=== PATIENT | female | born 1935 | race African-American/Black ===

== ENCOUNTER 2016-06-02 09:00 | Emergency (ER) | payer MEDICARE, MEDICAID ==
[~2016-06-02] VITALS: Ht 160 cm; Wt 59.0 kg
[~2016-06-02 09:00] MED LIST: CATAPRES0.1 MG GT; CIPRO500 MG GT; COLACE100 MG GT; DAILY VITAMIN1 EAC4 GT; DILANTIN100 MG GT; HEPARIN SO1000 UNIT3 IJ; KEPPRA500 MG GT; MOM30 ML GT; NOVOLOG100 UNITS1 SUBQ; OMEPRAZOLE20 M2 GT; SIMVASTATIN40 MG GT; SULFAMETHOXAZO473 ML ORAL; TRAMADOL HCL50 MG GT; TYLENOL 8 HOUR650 M1 GT; VANCOMYCIN1 GM/2502 IVPB; ZOFRAN4 MG ORAL; regular insulin
[2016-06-02] MEDS ORDERED: BENADRYL25 MG GT (09:28)
[2016-06-02] MEDS ORDERED: CRANBERRY400 MG GT (09:28)
--- NOTE | 2016-06-02 09:53 | Emergency Room Report ---
History of Present Illness General Chief Complaint: General Complaint Source: Medical Record, EMS Present Illness HPI The patient is sent in for evaluation of a sacral decubitus. The question whether there is infection in the area. The patient is demented and is unable to give his history. The patient feels warm to the nurse. There is no evidence of coughing. The patient is on Heparin. Allergies: Coded Allergies: No Known Allergies (Verified , 01/27/10) Patient History Limited by: medical condition Past Medical History: see triage record Social History Narrative SNF Reviewed Nursing Documentation: PMH: Agreed, PSxH: Agreed Nursing Documentation-PMH Hx Cardiac Problems: Yes - high cholesterol Hx Hypertension: Yes Hx Pacemaker: No Hx Asthma: No Hx COPD: No Hx Diabetes: Yes Hx Cancer: No Hx Dialysis: No Hx Neurological Problems: Yes - dementia, bilat DVT Hx Cerebrovascular Accident: Yes Hx Dementia: Yes Hx Seizures: Yes Hx Dysphasia: Yes Review of Systems All Other Systems: limited Physical Exam Vital Signs Date Time Temp Pulse Resp B/P Pulse Ox O2 Delivery O2 Flow Rate FiO2 06/02/16 09:01 98.2 78 16 130/80 98 Room Air Sp02 EP Interpretation: reviewed, normal General Appearance: no apparent distress, Chronically Ill Head: normocephalic Eyes: bilateral eye PERRL, bilateral eye normal inspection ENT: moist mucus membranes Neck: supple Respiratory: lungs clear, normal breath sounds Cardiovascular #1: regular rate, rhythm Cardiovascular #2: 2+ radial (R) Gastrointestinal: normal inspection, normal bowel sounds, non tender, no mass, non-distended, other - gastrostomy tube Musculoskeletal: back normal, decreased range of motion - R contracture Neurologic: aphasia, motor weakness - generalized but more on R, other - looks to speaker Psychiatric: depressed affect Skin: warm/dry, other - Stage 3 decubiti sacrum, no abscess or surrounding erythema Medical Decision Making Diagnostic Impression: Primary Impression: Decubital ulcer Qualified Codes: L89.93 - Pressure ulcer of unspecified site, stage 3 Additional Impressions: Prolonged PTT Dementia Qualified Codes: F03.90 - Unspecified dementia without behavioral disturbance ER Course Patient sent for eval of sacral decub. Ddx: cellulitis, abscess, decub, other source of infection. Evaluation with labs and urine. Exam against acute infection. Labs remarkable for normal WBC, lytes, ESR. Prolonged PTT. Discussed with Dr. Lazcano. Will observe at [facility]. No indication for antibiotics at this time. Laboratory Tests Test 06/02/16 09:45 06/02/16 10:09 White Blood Count 5.9 K/UL (4.8-10.8) Red Blood Count 3.52 M/UL (4.20-5.40) L Hemoglobin 11.9 G/DL (12.0-16.0) L Hematocrit 35.8 % (37.0-47.0) L Mean Corpuscular Volume 102 FL (80-99) H Mean Corpuscular Hemoglobin 33.8 PG (27.0-31.0) H Mean Corpuscular Hemoglobin Concent 33.3 G/DL (32.0-36.0) Red Cell Distribution Width 11.6 % (11.6-14.8) Platelet Count 138 K/UL (150-450) L Mean Platelet Volume 8.3 FL (6.5-10.1) Neutrophils (%) (Auto) 44.5 % (45.0-75.0) L Lymphocytes (%) (Auto) 45.0 % (20.0-45.0) Monocytes (%) (Auto) 6.7 % (1.0-10.0) Eosinophils (%) (Auto) 2.2 % (0.0-3.0) Basophils (%) (Auto) 1.5 % (0.0-2.0) Erythrocyte Sedimentation Rate 30 MM/HR (0-30) Prothrombin Time 10.5 SEC (9.30-11.50) Prothrombin Time INR 1.0 (0.9-1.1) PTT > 150 SEC (23-33) *H Sodium Level 136 mEQ/L (135-145) Potassium Level 4.7 mEQ/L (3.4-4.9) Chloride Level 96 mEQ/L (98-107) L Carbon Dioxide Level 27 mEQ/L (20-30) Anion Gap 13 (5-15) Blood Urea Nitrogen 32 mg/dL (7-23) H Creatinine 0.9 mg/dL (0.5-0.9) Estimate Glomerular Filtration Rate mL/min (>60) Glucose Level 134 mg/dL (74-106) H Lactic Acid Level 1.00 mmol/L (0.66-2.22) Calcium Level 8.8 mg/dL (8.6-10.2) Total Bilirubin < 0.2 mg/dL (0.0-1.2) Aspartate Amino Transferase (AST) 23 U/L (5-40) Alanine Aminotransferase (ALT) 17 U/L (3-33) Alkaline Phosphatase 201 U/L (35-104) H Total Creatine Kinase 93 U/L (26-140) Troponin I < 0.30 ng/mL (<=0.30) Pro-B-Type Natriuretic Peptide 182 pg/mL (0-450) Total Protein 7.8 g/dL (6.6-8.7) Albumin 3.9 g/dL (3.5-5.2) Globulin 3.9 g/dL Albumin/Globulin Ratio 1.0 (1.0-2.7) Urine Color Pale yellow Urine Appearance Slightly cloudy Urine pH 8 (4.5-8.0) Urine Specific [place] 1.010 (1.005-1.035) Urine Protein 3+ (NEGATIVE) H Urine Glucose (UA) Negative (NEGATIVE) Urine Ketones Negative (NEGATIVE) Urine Occult Blood Negative (NEGATIVE) Urine Nitrite Negative (NEGATIVE) Urine Bilirubin Negative (NEGATIVE) Urine Urobilinogen Normal MG/DL (0.0-1.0) Urine Leukocyte Esterase 1+ (NEGATIVE) H Urine RBC 0-2 /HPF (0 - 2) Urine WBC 2-4 /HPF (0 - 2) Urine Squamous Epithelial Cells Occasional /LPF Urine Bacteria None /HPF (NONE) EKG Diagnostic Results Rate: normal Rhythm: NSR ST Segments: no acute changes Rhythm Strip Diag. Results EP Interpretation: yes Rhythm: NSR, no PVC's, no ectopy Last Vital Signs Date Time Temp Pulse Resp B/P Pulse Ox O2 Delivery O2 Flow Rate FiO2 06/02/16 12:32 82 16 130/80 98 Room Air 06/02/16 11:28 99.7 Status: unchanged Disposition: XFER SNF Condition: Stable Scripts Bacitracin (Bacitracin) 28.4 Gm Oint...g. 1 APPLIC TOPIC BID, #30 GM Prov: Deng Galeas M.D. 06/02/16 Referrals: TREY LAZCANO (PCP) Deng Galeas M.D. Jun 02, 2016 09:53
[2016-06-02 10:11] LABS: BASOPHILS % (AUTO) 1.5 % (0.0-2.0); EOSINOPHILS % (AUTO) 2.2 % (0.0-3.0); MEAN CORPUSCULAR HEMOGLOBIN 33.8 PG (27.0-31.0); MEAN CORPUSCULAR HGB CONC 33.3 G/DL (32.0-36.0); MEAN CORPUSCULAR VOLUME 102 FL (80-99); MEAN PLATELET VOLUME 8.3 FL (6.5-10.1); MONOCYTES % (AUTO) 6.7 % (1.0-10.0); NEUTROPHILS % (AUTO) 44.5 % (45.0-75.0); PLATELET COUNT 138 K/UL (150-450); RED BLOOD COUNT 3.52 M/UL (4.20-5.40); RED CELL DISTRIBUTION WIDTH 11.6 % (11.6-14.8); WHITE BLOOD COUNT 5.9 K/UL (4.8-10.8)
[2016-06-02 10:21] LABS: ALANINE AMINOTRANSFERASE 17 U/L (3-33); ANION GAP 13 (5-15); ASPARTATE AMINO TRANSFERASE 23 U/L (5-40); CALCIUM 8.8 mg/dL (8.6-10.2); CARBON DIOXIDE 27 mEQ/L (20-30); CHLORIDE 96 mEQ/L (98-107); CREATININE 0.9 mg/dL (0.5-0.9); HEMOLYSIS 55; POTASSIUM 4.7 mEQ/L (3.4-4.9); SODIUM 136 mEQ/L (135-145); TOTAL PROTEIN 7.8 g/dL (6.6-8.7)
[2016-06-02 10:21] LABS: APPEARANCE,URINE SLIGHTLY CLOUDY; KETONES,URINE NEGATIVE (NEGATIVE); LEUKOCYTE ESTERASE ,URINE 1+ (NEGATIVE); NITRITE,URINE NEGATIVE (NEGATIVE); PH,URINE 8 (4.5-8.0); PROTEIN,URINE 3+ (NEGATIVE); UROBILINOGEN,URINE NORMAL MG/DL (0.0-1.0)
[2016-06-02 10:22] VITALS: BP 138/86
[2016-06-02 10:23] LABS: RBC,URINE 0-2 /HPF (0 - 2); SQUAMOUS EPITHELIAL CELL,UR OCCASIONAL /LPF (NONE/OCC)
[2016-06-02 10:29] LABS: PROTHROMBIN TIME 10.5 SEC (9.30-11.50)
[2016-06-02 10:31] LABS: TROPONIN I < 0.30 ng/mL (<=0.30)
[2016-06-02 10:39] LABS: PARTIAL THROMBOPLASTIN TIME > 150 SEC (23-33)
[2016-06-02 11:03] LABS: ERYTHROCYTE SEDIMENTATION RATE 30 MM/HR (0-30)
[2016-06-02 11:28] VITALS: BP 140/86
[2016-06-02] MEDS ORDERED: BACITRACIN15 GM TOPIC (11:45)
[2016-06-02 12:32] VITALS: BP 130/80
--- NOTE | 2016-06-04 12:45 | Cardiology Report ---
APPROVED REPORT EKG Measurement Heart [id number] CT 154P81 [id number] Normal sinus rhythm Normal ECG
--- NOTE | 2016-06-05 02:57 | Consultation ---
DATE OF CONSULTATION: INFECTIOUS DISEASE CONSULTATION: REFERRING PHYSICIAN: Saira Lazcano M.D. REASON FOR CONSULTATION: The patient for bacteremia. HISTORY OF PRESENT ILLNESS: The patient is an 80-year-old female with multiple medical problems, who recently admitted. However, the patient's blood culture came positive with that, the patient was readmitted. The patient has fever. The patient was started on IV antibiotics. The patient is not able to provide information. Much of information gathered through the chart and speaking to the staff. PAST MEDICAL HISTORY: 1. Significant for unstageable decubitus of lower extremities. 2. History of CVA. 3. Hypertension. 4. Seizure disorder. 5. Hyperlipidemia. 6. G-tube. 7. . 8. Dementia. 9. Diabetes. MEDICATIONS: IV cefepime and received one dose of vancomycin. ALLERGIES: No known drug allergies. SOCIAL HISTORY: The patient lives in a snf. FAMILY HISTORY: Noncontributory. REVIEW OF SYSTEMS: Unobtainable. PHYSICAL EXAMINATION: VITAL SIGNS: Temperature 97.4 degrees, blood pressure 114/60, pulse 66, respiratory rate 18, and T-max 101. HEENT: Mouth, no thrush. No icterus. NECK: No trach. CHEST: Coarse breathing sounds. HEART: S1 and S2. ABDOMEN: Soft. EXTREMITIES: No cyanosis. NEUROLOGIC: Awake. LABORATORY DATA: White blood cells 8.8, hemoglobin 11, and platelet 154, 000. UA, 10-15 white blood cells. BUN is 22 and creatinine 1. ALT and AST unremarkable. Alkaline phosphatase 216. Blood cultures growing gram-positive cocci in 2/2 sets. ASSESSMENT: The patient is an 80-year-old female with multiple medical problems who has been admitted to this medical center due to fever. The patient has positive blood culture for Coag-negative staph that could be real bacteremia. Also, the patient urinary tract infection and underlying pneumonia. PLAN: 1. Continue the patient on cefepime, add IV vancomycin. 2. Monitor CBC. 3. Monitor BMP. 4. Monitor cultures (blood, urine, sputum). 5. Monitor chest x-ray. 6. Based on the patient's clinical course and labs, we will do further recommendation. Thank you, Dr. Lazcano, for allowing me to participate in the care of this patient. I will follow the patient with you during this hospitalization. Alfonzo Jimenez M.D. DR: Noemí JOB#: [id number] CC:
== END 2016-06-02 12:45 ==
LOC: EDUNIT# 09:00 → EDBD 09:00 → EMR 09:26
DX: L89.153 Pressure ulcer of sacral region, stage 3 (principal); F03.90 Unspecified dementia, unspecified severity, without behavioral disturbance, psychotic disturbance, mood disturbance, and anxiety; E78.00 Pure hypercholesterolemia, unspecified; I10 Essential (primary) hypertension; E11.9 Type 2 diabetes mellitus without complications; Z86.718 Personal history of other venous thrombosis and embolism; Z86.73 Personal history of transient ischemic attack (TIA), and cerebral infarction without residual deficits; R79.1 Abnormal coagulation profile
CPT/HCPCS: 36415; 80053; 81003; 82550; 83605; 83880; 84484; 85025; 85610; 85651; 85730; 87040; 87081; 87181; 93005; 99283

== ENCOUNTER 2016-06-03 20:55 | Inpatient (IN) | payer MEDICARE, MEDICAID ==
[~2016-06-03] VITALS: Ht 165.1 cm; Wt 90.7 kg
[~2016-06-03 20:55] MED LIST changes: +BACITRACIN15 GM TOPIC; +BENADRYL25 MG GT; +CRANBERRY400 MG GT
[2016-06-03] MEDS ORDERED: Vancomycin 1.5gm/D5W 300ml 325 ML IVPB ONE (21:15)
[2016-06-03] MEDS ORDERED: DuoNeb 0.5-3(2.5)mg/3ml neb HHN PRN (21:30)
[2016-06-03] MEDS ORDERED: Mylanta II UD 30ml ORAL PRN (21:30)
[2016-06-03] MEDS ORDERED: Miralax 17gm pkt ORAL PRN (21:30)
[2016-06-03] MEDS ORDERED: Nitroglycerin Subl 0.4mg tab (Bottle Of 25) SL PRN (21:30)
[2016-06-03 21:35] VITALS: BP 159/99
[2016-06-03 21:55] LABS: ABG ALLEN TEST POSITIVE; ABG BASE EXCESS 0.9; ABG PCO2 35.2 mmHg (35.0-45.0)
[2016-06-03 21:56] LABS: BASOPHILS % (AUTO) 1.7 % (0.0-2.0); EOSINOPHILS % (AUTO) 0.4 % (0.0-3.0); LYMPHOCYTES % (AUTO) 15.3 % (20.0-45.0); MEAN CORPUSCULAR HEMOGLOBIN 34.6 PG (27.0-31.0); MEAN CORPUSCULAR HGB CONC 33.4 G/DL (32.0-36.0); MEAN CORPUSCULAR VOLUME 104 FL (80-99); MEAN PLATELET VOLUME 7.4 FL (6.5-10.1); MONOCYTES % (AUTO) 7.7 % (1.0-10.0); PLATELET COUNT 177 K/UL (150-450); RED BLOOD COUNT 3.74 M/UL (4.20-5.40); RED CELL DISTRIBUTION WIDTH 11.7 % (11.6-14.8); WHITE BLOOD COUNT 7.4 K/UL (4.8-10.8)
[2016-06-03] MEDS ORDERED: Unasyn 3gm Inj ONE (22:11)
[2016-06-03 22:13] LABS: ALANINE AMINOTRANSFERASE 20 U/L (3-33); ALBUMIN/GLOBULIN RATIO 0.7 (1.0-2.7); ANION GAP 17 (5-15); ASPARTATE AMINO TRANSFERASE 25 U/L (5-40); CALCIUM 9.2 mg/dL (8.6-10.2); CARBON DIOXIDE 25 mEQ/L (20-30); CHLORIDE 94 mEQ/L (98-107); CREATININE 1.1 mg/dL (0.5-0.9); HEMOLYSIS 11; POTASSIUM 4.6 mEQ/L (3.4-4.9); SODIUM 136 mEQ/L (135-145); TOTAL PROTEIN 9.1 g/dL (6.6-8.7); TROPONIN I < 0.30 ng/mL (<=0.30)
--- NOTE | 2016-06-03 22:13 | Emergency Room Report ---
History of Present Illness General Chief Complaint: Abnormal Labs Source: Medical Record, EMS Present Illness HPI Patient is an 80-year-old female brought in from longterm after abnormal lab values. The patient was noted to have prior history of a recent ER visit patient was noted to have gram-positive cocci in clusters on blood cultures. The patient was afebrile at that time. Patient is a nonverbal at baseline. History markedly limited by patient's mental status. Allergies: Coded Allergies: No Known Allergies (Verified , 01/27/10) Patient History Past Medical History: see triage record Reviewed Nursing Documentation: PMH: Agreed, PSxH: Agreed Nursing Documentation-PMH Hx Cardiac Problems: Yes - high cholesterol Hx Hypertension: Yes Hx Pacemaker: No Hx Asthma: No Hx COPD: No Hx Diabetes: Yes Hx Cancer: No Hx Dialysis: No Hx Neurological Problems: Yes - dementia, bilat DVT Hx Cerebrovascular Accident: Yes Hx Dementia: Yes Hx Seizures: Yes Hx Dysphasia: Yes Review of Systems All Other Systems: limited - by mental status Physical Exam Vital Signs Date Time Temp Pulse Resp B/P Pulse Ox O2 Delivery O2 Flow Rate FiO2 06/03/16 21:04 101.7 116 20 153/80 96 Room Air General Appearance: no apparent distress, obese, Chronically Ill Neck: limited range of motion Respiratory: lungs clear, no rhonchi, no wheezing Cardiovascular #1: regular rate, rhythm Gastrointestinal: normal bowel sounds, non tender, soft, other - gtube site CDI Musculoskeletal: other - contracted, swelling Neurologic: motor weakness, other - gag reflex Skin: other - decubitus ulcers Medical Decision Making Diagnostic Impression: Primary Impression: Sepsis Additional Impressions: Decubital ulcer G tube feedings ER Course Patient presented for positive blood culture. Differential diagnosis included was not limited to the contaminant, sepsis, infected decubitus ulcer, pneumonia among others.Because of complexity of patient's case laboratory testing and imaging studies were ordered. The patient was noted to have positive blood culture and was therefore the presumed septic. The patient was empirically treated with IV vancomycin and Unasyn. Chest x-ray one view interpreted by me showed normal lung wallace without evident infiltrate normal cardiac size. The patient's source of infection may be related to her ulcers. The patient was discussed with Dr. witt for inpatient management Labs Test 06/03/16 21:30 06/03/16 21:40 White Blood Count 7.4 K/UL (4.8-10.8) Red Blood Count 3.74 M/UL (4.20-5.40) Hemoglobin 13.0 G/DL (12.0-16.0) Hematocrit 38.8 % (37.0-47.0) Mean Corpuscular Volume 104 FL (80-99) Mean Corpuscular Hemoglobin 34.6 PG (27.0-31.0) Mean Corpuscular Hemoglobin Concent 33.4 G/DL (32.0-36.0) Red Cell Distribution Width 11.7 % (11.6-14.8) Platelet Count 177 K/UL (150-450) Mean Platelet Volume 7.4 FL (6.5-10.1) Neutrophils (%) (Auto) 75.0 % (45.0-75.0) Lymphocytes (%) (Auto) 15.3 % (20.0-45.0) Monocytes (%) (Auto) 7.7 % (1.0-10.0) Eosinophils (%) (Auto) 0.4 % (0.0-3.0) Basophils (%) (Auto) 1.7 % (0.0-2.0) Arterial Blood pH 7.458 (7.350-7.450) Arterial Blood Partial Pressure CO2 35.2 mmHg (35.0-45.0) Arterial Blood Partial Pressure O2 67.6 mmHg (75.0-100.0) Arterial Blood HCO3 24.4 mmol/L (22.0-26.0) Arterial Blood Oxygen Saturation 93.6 % (92.0-98.0) Arterial Blood Base Excess 0.9 Gareth Test Positive EKG Diagnostic Results Rate: normal Rhythm: NSR - 93 ST Segments: no acute changes Rhythm Strip Diag. Results EP Interpretation: yes Rhythm: NSR, no PVC's, no ectopy Chest X-Ray Diagnostic Results EP Interpretation: Yes Findings: no consolidation, no effusion, no pneumothorax, no acute cardiopulmonary disease Number of Views: 1 Last Vital Signs Date Time Temp Pulse Resp B/P Pulse Ox O2 Delivery O2 Flow Rate FiO2 06/03/16 21:04 101.7 116 20 153/80 96 Room Air Status: unchanged Disposition: ADMITTED INPATIENT Condition: Serious Referrals: TREY WITT (PCP) Srini Davis Jun 03, 2016 22:13
[2016-06-03 22:15] LABS: INR 1.1 (0.9-1.1); PROTHROMBIN TIME 11.1 SEC (9.30-11.50)
[2016-06-03] MEDS ORDERED: Acetaminophen 650mg/20.3ml GT ONE (22:15)
[2016-06-03] MEDS: Ampicillin/Sulbactam Sod 3 GM in NS 110 ML IV SCH (22:15)
[2016-06-03 22:23] LABS: CKMB < 1.5 ng/mL (< 3.8)
[2016-06-03 22:31] LABS: APPEARANCE,URINE CLEAR; KETONES,URINE NEGATIVE (NEGATIVE); LEUKOCYTE ESTERASE ,URINE 1+ (NEGATIVE); NITRITE,URINE NEGATIVE (NEGATIVE); PH,URINE 8 (4.5-8.0); PROTEIN,URINE 4+ (NEGATIVE); UROBILINOGEN,URINE NORMAL MG/DL (0.0-1.0)
[2016-06-03 22:41] LABS: BACTERIA,URINE FEW /HPF; SQUAMOUS EPITHELIAL CELL,UR OCCASIONAL /LPF (NONE/OCC)
[2016-06-03 23:30] VITALS: BP 167/49
[2016-06-04] VITALS (9 sets, daily range): BP systolic 138–178; BP diastolic 46–86
[2016-06-04] MEDS ORDERED: Unasyn 3gm Inj ONE (02:48)
[2016-06-04] MEDS: Ampicillin/Sulbactam Sod 3 GM in NS 110 ML IV SCH (02:53)
[2016-06-04 06:08] LABS: MEAN CORPUSCULAR HEMOGLOBIN 34.2 PG (27.0-31.0); MEAN CORPUSCULAR HGB CONC 33.5 G/DL (32.0-36.0); MEAN CORPUSCULAR VOLUME 102 FL (80-99); MEAN PLATELET VOLUME 8.2 FL (6.5-10.1); PLATELET COUNT 154 K/UL (150-450); RED BLOOD COUNT 3.25 M/UL (4.20-5.40); RED CELL DISTRIBUTION WIDTH 11.7 % (11.6-14.8); WHITE BLOOD COUNT 8.8 K/UL (4.8-10.8)
[2016-06-04] MEDS: NovoLOG Insulin Flexpen SUBQ SCH ×4 (06:30→17:02)
[2016-06-04 06:32] LABS: ANION GAP 19 (5-15); CALCIUM 8.1 mg/dL (8.6-10.2); CARBON DIOXIDE 21 mEQ/L (20-30); CHLORIDE 96 mEQ/L (98-107); HEMOLYSIS 17; PHOSPHORUS 3.2 mg/dL (2.5-4.8); SODIUM 136 mEQ/L (135-145)
[2016-06-04 08:16] LABS: BAND NEUTROPHILS % (MANUAL) 6 % (0-8); EOSINOPHILS % (MANUAL) 1 % (0-3); LYMPHOCYTES % (MANUAL) 11 % (20-45); NEUTROPHILS % (MANUAL) 77 % (45-75); TOTAL CELLS COUNTED 100
[2016-06-04 08:17] LABS: BASOPHILS % (MANUAL) 0 % (0-2); MACROCYTES 1+; PLATELET ESTIMATE ADEQUATE; PLATELET MORPHOLOGY NORMAL
[2016-06-04] MEDS: Phenytoin 100mg cap ORAL SCH ×3 (08:56→22:43)
[2016-06-04] MEDS ORDERED: Heparin 5000 units/ml inj SUBQ SCH (09:00)
[2016-06-04] MEDS ORDERED: Cefepime HCl 1 GM in D5W 55 ML IV SCH (09:00)
--- NOTE | 2016-06-04 09:53 | History and Physical ---
History of Present Illness General Date patient seen: Jun 04, 2016 Reason for Hospitalization: Abnormal Labs Present Illness HPI 80-year-old female with hx of DM, CVA, Gtube, bed bound, aphasic brought in from [facility] after abnormal lab values. She was in ER recently, was evaluated and sent back to [facility]. Her blood cultures came back positive therefore she was called in to get admitted. She had gram-positive cocci in clusters on blood cultures. During this evaluation, she was febrile and seemed septic, therefore admitted to Telemetry. She looks comfortable, in no acute respiratory distress. Allergies: Coded Allergies: No Known Allergies (Verified , 01/27/10) Medication History Scheduled Bacitracin (Bacitracin), 1 APPLIC TOPIC BID Ciprofloxacin* (Cipro*), 500 MG GT BID Docusate Sodium* (Colace*), 100 MG GT DAILY, (Reported) Heparin Sodium,Porcine/Pf (Heparin Sod 1,000 Unit/Ml Vial), 5,000 IJ BID, ( Reported) Insulin Aspart (Novolog Flexpen), 0 UNITS SUBQ BEFORE MEALS AND HS Levetiracetam (Keppra), 500 MG GT DAILY, (Reported) Multivitamin (Daily Vitamin), 1 TAB GT DAILY, (Reported) Omeprazole (Omeprazole), 20 MG GT DAILY, (Reported) Phenytoin Sodium Extended* (Dilantin*), 100 MG GT BID, (Reported) Simvastatin (Zocor), 40 MG GT BEDTIME, (Reported) Sulfamethoxazole/Trimethoprim Susp* (Bactrim Susp*), 20 ML ORAL TWICE A DAY Tramadol Hcl* (Ultram*), 50 MG GT BID, (Reported) Scheduled PRN Acetaminophen (Tylenol 8 Hour), 650 MG GT Q4HR PRN for Mild Pain/Temp > 100.5, ( Reported) Clonidine Hcl* (Catapres*), 0.1 MG GT EVERY 6 HOURS PRN for For High Blood Pressure, (Reported) Diphenhydramine Hcl* (Benadryl*), 25 MG GT Q6H PRN for Itching, (Reported) Magnesium Hydroxide (Milk of Magnesia), 30 ML GT DAILY PRN for Constipation, ( Reported) Ondansetron (Zofran), 4 MG ORAL Q6H PRN for Nausea & Vomiting Miscellaneous Medications Cranberry (Cranberry), 450 MG GT, (Reported) [regular insulin], (Reported) Patient History Healthcare decision maker Resuscitation status Advanced Directive on File No Past Medical/Surgical History Past Medical/Surgical History: (1) DVT (deep vein thrombosis) in (2) Dementia (3) G tube feedings (4) Diabetes Review of Systems All Other Systems: negative except mentioned in HPI Physical Exam General Appearance: WD/WN, no apparent distress Lines, tubes and drains: peripheral, central line Neck: non-tender, normal alignment Respiratory/Chest: chest wall non-tender, lungs clear Breasts: no masses Cardiovascular/Chest: normal peripheral pulses Abdomen: normal bowel sounds, non tender Genitourinary/Rectal: normal genital exam, normal rectal exam Last 24 Hour Vital Signs Date Time Temp Pulse Resp B/P Pulse Ox O2 Delivery O2 Flow Rate FiO2 06/04/16 07:48 97.7 89 18 140/73 99 Room Air 06/04/16 07:16 100.5 87 24 152/52 97 Room Air 06/04/16 06:55 100.5 87 24 152/52 97 Room Air 06/04/16 05:54 100.5 06/04/16 05:52 100.5 94 24 138/46 97 Room Air 06/04/16 04:36 102.4 96 24 148/57 97 Room Air 06/04/16 04:35 102.4 06/04/16 02:43 102.6 110 29 166/66 99 Room Air 06/04/16 01:51 101.2 110 29 159/86 97 Room Air 06/04/16 01:28 190/83 06/03/16 23:30 101.6 92 21 167/49 100 Room Air 06/03/16 23:25 101.6 06/03/16 21:35 102.6 90 20 159/99 99 Room Air 06/03/16 21:04 101.7 116 20 153/80 96 Room Air Intake and Output 06/03/16 06/04/16 19:00 07:00 Intake Total 2765 ml Output Total 250 ml Balance 2515 ml Intake IV Total 1220 ml Other 1545 ml Output Urine Total 250 ml Laboratory Tests Test 06/03/16 21:30 06/03/16 21:40 06/03/16 22:00 06/04/16 05:35 White Blood Count 7.4 K/UL (4.8-10.8) 8.8 K/UL (4.8-10.8) Red Blood Count 3.74 M/UL (4.20-5.40) L 3.25 M/UL (4.20-5.40) L Hemoglobin 13.0 G/DL (12.0-16.0) 11.1 G/DL (12.0-16.0) L Hematocrit 38.8 % (37.0-47.0) 33.2 % (37.0-47.0) L Mean Corpuscular Volume 104 FL (80-99) H 102 FL (80-99) H Mean Corpuscular Hemoglobin 34.6 PG (27.0-31.0) H 34.2 PG (27.0-31.0) H Mean Corpuscular Hemoglobin Concent 33.4 G/DL (32.0-36.0) 33.5 G/DL (32.0-36.0) Red Cell Distribution Width 11.7 % (11.6-14.8) 11.7 % (11.6-14.8) Platelet Count 177 K/UL (150-450) 154 K/UL (150-450) Mean Platelet Volume 7.4 FL (6.5-10.1) 8.2 FL (6.5-10.1) Neutrophils (%) (Auto) 75.0 % (45.0-75.0) % (45.0-75.0) Lymphocytes (%) (Auto) 15.3 % (20.0-45.0) L % (20.0-45.0) Monocytes (%) (Auto) 7.7 % (1.0-10.0) % (1.0-10.0) Eosinophils (%) (Auto) 0.4 % (0.0-3.0) % (0.0-3.0) Basophils (%) (Auto) 1.7 % (0.0-2.0) % (0.0-2.0) Prothrombin Time 11.1 SEC (9.30-11.50) Prothromb Time International Ratio 1.1 (0.9-1.1) Activated Partial Thromboplast Time 25 SEC (23-33) Sodium Level 136 mEQ/L (135-145) 136 mEQ/L (135-145) Potassium Level 4.6 mEQ/L (3.4-4.9) 4.0 mEQ/L (3.4-4.9) Chloride Level 94 mEQ/L (98-107) L 96 mEQ/L (98-107) L Carbon Dioxide Level 25 mEQ/L (20-30) 21 mEQ/L (20-30) Anion Gap 17 (5-15) H 19 (5-15) H Blood Urea Nitrogen 31 mg/dL (7-23) H 27 mg/dL (7-23) H Creatinine 1.1 mg/dL (0.5-0.9) H 1.0 mg/dL (0.5-0.9) H Estimat Glomerular Filtration Rate mL/min (>60) mL/min (>60) Glucose Level 143 mg/dL (74-106) H 210 mg/dL (74-106) H Lactic Acid Level 1.00 mmol/L (0.66-2.22) Calcium Level 9.2 mg/dL (8.6-10.2) 8.1 mg/dL (8.6-10.2) L Total Bilirubin 0.3 mg/dL (0.0-1.2) Aspartate Amino Transf (AST/SGOT) 25 U/L (5-40) Alanine Aminotransferase (ALT/SGPT) 20 U/L (3-33) Alkaline Phosphatase 216 U/L (35-104) H Total Creatine Kinase 82 U/L (26-140) Creatine Kinase MB < 1.5 ng/mL (< 3.8) Creatine Kinase MB Relative Index 1.8 Troponin I < 0.30 ng/mL (<=0.30) Total Protein 9.1 g/dL (6.6-8.7) H Albumin 4.0 g/dL (3.5-5.2) 3.3 g/dL (3.5-5.2) L Globulin 5.1 g/dL Albumin/Globulin Ratio 0.7 (1.0-2.7) L Arterial Blood pH 7.458 (7.350-7.450) Arterial Blood Partial Pressure CO2 35.2 mmHg (35.0-45.0) Arterial Blood Partial Pressure O2 67.6 mmHg (75.0-100.0) L Arterial Blood HCO3 24.4 mmol/L (22.0-26.0) Arterial Blood Oxygen Saturation 93.6 % (92.0-98.0) Arterial Blood Base Excess 0.9 Gareth Test Positive Urine Color Yellow Urine Appearance Clear Urine pH 8 (4.5-8.0) Urine Specific [place] 1.010 (1.005-1.035) Urine Protein 4+ (NEGATIVE) H Urine Glucose (UA) Negative (NEGATIVE) Urine Ketones Negative (NEGATIVE) Urine Occult Blood 2+ (NEGATIVE) H Urine Nitrite Negative (NEGATIVE) Urine Bilirubin Negative (NEGATIVE) Urine Urobilinogen Normal MG/DL (0.0-1.0) Urine Leukocyte Esterase 1+ (NEGATIVE) H Urine RBC 5-10 /HPF (0 - 2) H Urine WBC 10-15 /HPF (0 - 2) H Urine Squamous Epithelial Cells Occasional /LPF Urine Bacteria Few /HPF (NONE) Urine Legionella Antigen Pending Differential Total Cells Counted 100 Neutrophils % (Manual) 77 % (45-75) H Lymphocytes % (Manual) 11 % (20-45) L Monocytes % (Manual) 5 % (1-10) Eosinophils % (Manual) 1 % (0-3) Basophils % (Manual) 0 % (0-2) Band Neutrophils 6 % (0-8) Platelet Estimate Adequate Platelet Morphology Normal Macrocytosis 1+ Phosphorus Level 3.2 mg/dL (2.5-4.8) Height (Feet): 5 Height (Inches): 6.00 Weight (Pounds): 200 Medications Current Medications Medications (Trade) Dose Ordered Sig/Nancy Route PRN Reason Start Time Stop Time Status Last Admin Dose Admin Acetaminophen (Tylenol) 650 mg Q4H PRN ORAL fever 06/03/16 21:30 07/03/16 21:29 06/04/16 02:35 Al Hydroxide/Mg Hydroxide (Mylanta II) 30 ml Q6H PRN ORAL dyspepsia 06/03/16 21:30 07/03/16 21:29 Albuterol/ Ipratropium 3 ml 3 ml Q4H PRN HHN Shortness of Breath 06/03/16 21:30 06/08/16 21:29 Cefepime HCl/ Dextrose (Maxipime/D5W) 55 ml @ 110 mls/hr Q24H IV 06/04/16 09:00 06/11/16 08:59 06/04/16 08:55 Clonidine HCl (Catapres) 0.1 mg Q6H PRN GT SBP>160 06/04/16 08:00 07/04/16 07:59 Dextrose STAT PRN IV Hypoglycemia 06/03/16 21:30 07/03/16 21:29 Heparin Sodium (Porcine) (Heparin 5000 units/ml) 5,000 units EVERY 12 HOURS SUBQ 06/04/16 09:00 07/04/16 08:59 06/04/16 08:57 Insulin Aspart (NovoLOG) BEFORE MEALS AND HS SUBQ 06/04/16 06:30 07/04/16 06:29 Levetiracetam (Keppra) 500 mg DAILY GT 06/04/16 09:00 07/04/16 08:59 06/04/16 08:56 Nitroglycerin (Ntg) 0.4 mg Q5M PRN SL Prn Chest Pain 06/03/16 21:30 07/03/16 21:29 Ondansetron HCl (Zofran) 4 mg Q6H PRN IVP Nausea & Vomiting 06/03/16 21:30 07/03/16 21:29 Phenytoin (Dilantin) 100 mg BID ORAL 06/04/16 09:00 07/04/16 08:59 06/04/16 08:56 Polyethylene Glycol (Miralax) 17 gm DAILYPRN PRN ORAL Constipation 06/03/16 21:30 07/03/16 21:29 Sodium Chloride (0.45% NS 1000ml) 1,000 ml @ 50 mls/hr Q20H IV 06/03/16 21:45 07/03/16 21:44 06/04/16 08:56 Temazepam (Restoril) 15 mg HSPRN PRN ORAL Insomnia 06/03/16 21:30 06/10/16 21:29 Assessment/Plan Problem List: (1) Sepsis ICD Codes: A41.9 - Sepsis SNOMED: 00181587 (2) Sacral decubitus ulcer, stage III ICD Codes: L89.153 - Pressure ulcer of sacral region, stage 3 SNOMED: 310191979, 489306128 (3) Diabetes ICD Codes: E11.9 - Type 2 diabetes mellitus without complications SNOMED: 00353091 (4) Dementia ICD Codes: F03.90 - Dementia SNOMED: 50137502 (5) G tube feedings ICD Codes: Z93.1 - G tube feedings SNOMED: 720107835 Assessment/Plan IV antibiotics IV fliuids check cultures wound care sliding scale resume gtube feeding. dvt prophylaxis TREY BEE Jun 04, 2016 09:53
--- NOTE | 2016-06-04 10:53 | Consultation ---
History of Present Illness General Date patient seen: Jun 04, 2016 Chief Complaint: Abnormal Labs Referring physician: Yoseph Lazcano MD Reason for Consultation: Sacral Decubitus Ulcer Present Illness HPI 80 F with multiple medical problems as noted in H&P presented with bacteremia / sepsis. Please refer to H&P for details. Patient was noted to have a sacral decubitus ulcer upon admission. surgery called to evaluate as potential source of sepsis. Patient awake but given medical history does not communicate. She is bedbound and does not appear to be in distress. History obtained from EMR. Allergies: Coded Allergies: No Known Allergies (Verified , 01/27/10) Medication History Scheduled Bacitracin (Bacitracin), 1 APPLIC TOPIC BID Ciprofloxacin* (Cipro*), 500 MG GT BID Docusate Sodium* (Colace*), 100 MG GT DAILY, (Reported) Heparin Sodium,Porcine/Pf (Heparin Sod 1,000 Unit/Ml Vial), 5,000 IJ BID, ( Reported) Insulin Aspart (Novolog Flexpen), 0 UNITS SUBQ BEFORE MEALS AND HS Levetiracetam (Keppra), 500 MG GT DAILY, (Reported) Multivitamin (Daily Vitamin), 1 TAB GT DAILY, (Reported) Omeprazole (Omeprazole), 20 MG GT DAILY, (Reported) Phenytoin Sodium Extended* (Dilantin*), 100 MG GT BID, (Reported) Simvastatin (Zocor), 40 MG GT BEDTIME, (Reported) Sulfamethoxazole/Trimethoprim Susp* (Bactrim Susp*), 20 ML ORAL TWICE A DAY Tramadol Hcl* (Ultram*), 50 MG GT BID, (Reported) Scheduled PRN Acetaminophen (Tylenol 8 Hour), 650 MG GT Q4HR PRN for Mild Pain/Temp > 100.5, ( Reported) Clonidine Hcl* (Catapres*), 0.1 MG GT EVERY 6 HOURS PRN for For High Blood Pressure, (Reported) Diphenhydramine Hcl* (Benadryl*), 25 MG GT Q6H PRN for Itching, (Reported) Magnesium Hydroxide (Milk of Magnesia), 30 ML GT DAILY PRN for Constipation, ( Reported) Ondansetron (Zofran), 4 MG ORAL Q6H PRN for Nausea & Vomiting Miscellaneous Medications Cranberry (Cranberry), 450 MG GT, (Reported) [regular insulin], (Reported) Patient History Limited by: medical condition History Provided By: Medical Record Healthcare decision maker Resuscitation status Advanced Directive on File No Past Medical/Surgical History Past Medical/Surgical History: (1) [id number] (2) Vomiting (3) Vomiting (4) Sepsis (5) Dehydration (6) Dermatitis (7) Malfunction of percutaneous endoscopic gastrostomy (PEG) tube (8) Malfunction of gastrostomy tube (9) Malfunction of gastrostomy tube (10) PEG (percutaneous endoscopic gastrostomy) adjustment/replacement/removal (11) Abnormal LFTs (12) Gastrostomy tube obstruction (13) UTI (urinary tract infection) (14) Right hemiparesis (15) Malfunction of gastrostomy tube (16) Hyponatremia (17) Prolonged PTT (18) G tube feedings (19) Decubital ulcer (20) Dementia (21) DVT (deep vein thrombosis) in (22) Diabetes (23) Sepsis (24) Sepsis (25) Sacral decubitus ulcer, stage III Review of Systems All Other Systems: negative except mentioned in HPI ROS Narrative given patients medical condition she is unable to provide appropriate ROS. Physical Exam General Appearance: no apparent distress Lines, tubes and drains: peripheral HEENT: normocephalic, atraumatic Neck: normal alignment Respiratory/Chest: no respiratory distress, no accessory muscle use Cardiovascular/Chest: normal peripheral pulses, normal rate Abdomen: normal bowel sounds, soft Physical Exam Narrative Skin - Sacral decubitus noted State II chronic. area approximately 6cm by 6- 8cm with small peripheral 1cm new stage II. no drainage, erythema, edema, or fluctuance noted. no signs of active infection. Last 24 Hour Vital Signs Date Time Temp Pulse Resp B/P Pulse Ox O2 Delivery O2 Flow Rate FiO2 06/04/16 07:48 97.7 89 18 140/73 99 Room Air 06/04/16 07:16 100.5 87 24 152/52 97 Room Air 06/04/16 06:55 100.5 87 24 152/52 97 Room Air 06/04/16 05:54 100.5 06/04/16 05:52 100.5 94 24 138/46 97 Room Air 06/04/16 04:36 102.4 96 24 148/57 97 Room Air 06/04/16 04:35 102.4 06/04/16 02:43 102.6 110 29 166/66 99 Room Air 06/04/16 01:51 101.2 110 29 159/86 97 Room Air 06/04/16 01:28 190/83 06/03/16 23:30 101.6 92 21 167/49 100 Room Air 06/03/16 23:25 101.6 06/03/16 21:35 102.6 90 20 159/99 99 Room Air 06/03/16 21:04 101.7 116 20 153/80 96 Room Air Intake and Output 06/03/16 06/04/16 19:00 07:00 Intake Total 2765 ml Output Total 250 ml Balance 2515 ml Intake IV Total 1220 ml Other 1545 ml Output Urine Total 250 ml Laboratory Tests Test 06/03/16 21:30 06/03/16 21:40 06/03/16 22:00 06/04/16 05:35 White Blood Count 7.4 K/UL (4.8-10.8) 8.8 K/UL (4.8-10.8) Red Blood Count 3.74 M/UL (4.20-5.40) L 3.25 M/UL (4.20-5.40) L Hemoglobin 13.0 G/DL (12.0-16.0) 11.1 G/DL (12.0-16.0) L Hematocrit 38.8 % (37.0-47.0) 33.2 % (37.0-47.0) L Mean Corpuscular Volume 104 FL (80-99) H 102 FL (80-99) H Mean Corpuscular Hemoglobin 34.6 PG (27.0-31.0) H 34.2 PG (27.0-31.0) H Mean Corpuscular Hemoglobin Concent 33.4 G/DL (32.0-36.0) 33.5 G/DL (32.0-36.0) Red Cell Distribution Width 11.7 % (11.6-14.8) 11.7 % (11.6-14.8) Platelet Count 177 K/UL (150-450) 154 K/UL (150-450) Mean Platelet Volume 7.4 FL (6.5-10.1) 8.2 FL (6.5-10.1) Neutrophils (%) (Auto) 75.0 % (45.0-75.0) % (45.0-75.0) Lymphocytes (%) (Auto) 15.3 % (20.0-45.0) L % (20.0-45.0) Monocytes (%) (Auto) 7.7 % (1.0-10.0) % (1.0-10.0) Eosinophils (%) (Auto) 0.4 % (0.0-3.0) % (0.0-3.0) Basophils (%) (Auto) 1.7 % (0.0-2.0) % (0.0-2.0) Prothrombin Time 11.1 SEC (9.30-11.50) Prothromb Time International Ratio 1.1 (0.9-1.1) Activated Partial Thromboplast Time 25 SEC (23-33) Sodium Level 136 mEQ/L (135-145) 136 mEQ/L (135-145) Potassium Level 4.6 mEQ/L (3.4-4.9) 4.0 mEQ/L (3.4-4.9) Chloride Level 94 mEQ/L (98-107) L 96 mEQ/L (98-107) L Carbon Dioxide Level 25 mEQ/L (20-30) 21 mEQ/L (20-30) Anion Gap 17 (5-15) H 19 (5-15) H Blood Urea Nitrogen 31 mg/dL (7-23) H 27 mg/dL (7-23) H Creatinine 1.1 mg/dL (0.5-0.9) H 1.0 mg/dL (0.5-0.9) H Estimat Glomerular Filtration Rate mL/min (>60) mL/min (>60) Glucose Level 143 mg/dL (74-106) H 210 mg/dL (74-106) H Lactic Acid Level 1.00 mmol/L (0.66-2.22) Calcium Level 9.2 mg/dL (8.6-10.2) 8.1 mg/dL (8.6-10.2) L Total Bilirubin 0.3 mg/dL (0.0-1.2) Aspartate Amino Transf (AST/SGOT) 25 U/L (5-40) Alanine Aminotransferase (ALT/SGPT) 20 U/L (3-33) Alkaline Phosphatase 216 U/L (35-104) H Total Creatine Kinase 82 U/L (26-140) Creatine Kinase MB < 1.5 ng/mL (< 3.8) Creatine Kinase MB Relative Index 1.8 Troponin I < 0.30 ng/mL (<=0.30) Total Protein 9.1 g/dL (6.6-8.7) H Albumin 4.0 g/dL (3.5-5.2) 3.3 g/dL (3.5-5.2) L Globulin 5.1 g/dL Albumin/Globulin Ratio 0.7 (1.0-2.7) L Arterial Blood pH 7.458 (7.350-7.450) Arterial Blood Partial Pressure CO2 35.2 mmHg (35.0-45.0) Arterial Blood Partial Pressure O2 67.6 mmHg (75.0-100.0) L Arterial Blood HCO3 24.4 mmol/L (22.0-26.0) Arterial Blood Oxygen Saturation 93.6 % (92.0-98.0) Arterial Blood Base Excess 0.9 Gareth Test Positive Urine Color Yellow Urine Appearance Clear Urine pH 8 (4.5-8.0) Urine Specific [place] 1.010 (1.005-1.035) Urine Protein 4+ (NEGATIVE) H Urine Glucose (UA) Negative (NEGATIVE) Urine Ketones Negative (NEGATIVE) Urine Occult Blood 2+ (NEGATIVE) H Urine Nitrite Negative (NEGATIVE) Urine Bilirubin Negative (NEGATIVE) Urine Urobilinogen Normal MG/DL (0.0-1.0) Urine Leukocyte Esterase 1+ (NEGATIVE) H Urine RBC 5-10 /HPF (0 - 2) H Urine WBC 10-15 /HPF (0 - 2) H Urine Squamous Epithelial Cells Occasional /LPF Urine Bacteria Few /HPF (NONE) Urine Legionella Antigen Pending Differential Total Cells Counted 100 Neutrophils % (Manual) 77 % (45-75) H Lymphocytes % (Manual) 11 % (20-45) L Monocytes % (Manual) 5 % (1-10) Eosinophils % (Manual) 1 % (0-3) Basophils % (Manual) 0 % (0-2) Band Neutrophils 6 % (0-8) Platelet Estimate Adequate Platelet Morphology Normal Macrocytosis 1+ Phosphorus Level 3.2 mg/dL (2.5-4.8) Height (Feet): 5 Height (Inches): 6.00 Weight (Pounds): 200 Medications Current Medications Medications (Trade) Dose Ordered Sig/Nancy Route PRN Reason Start Time Stop Time Status Last Admin Dose Admin Acetaminophen (Tylenol) 650 mg Q4H PRN ORAL fever 06/03/16 21:30 07/03/16 21:29 06/04/16 02:35 Al Hydroxide/Mg Hydroxide (Mylanta II) 30 ml Q6H PRN ORAL dyspepsia 06/03/16 21:30 07/03/16 21:29 Albuterol/ Ipratropium 3 ml 3 ml Q4H PRN HHN Shortness of Breath 06/03/16 21:30 06/08/16 21:29 Cefepime HCl/ Dextrose (Maxipime/D5W) 55 ml @ 110 mls/hr Q24H IV 06/04/16 09:00 06/11/16 08:59 06/04/16 08:55 Clonidine HCl (Catapres) 0.1 mg Q6H PRN GT SBP>160 06/04/16 08:00 07/04/16 07:59 Dextrose STAT PRN IV Hypoglycemia 06/03/16 21:30 07/03/16 21:29 Heparin Sodium (Porcine) (Heparin 5000 units/ml) 5,000 units EVERY 12 HOURS SUBQ 06/04/16 09:00 07/04/16 08:59 06/04/16 08:57 Insulin Aspart (NovoLOG) BEFORE MEALS AND HS SUBQ 06/04/16 06:30 07/04/16 06:29 Levetiracetam (Keppra) 500 mg DAILY GT 06/04/16 09:00 07/04/16 08:59 06/04/16 08:56 Nitroglycerin (Ntg) 0.4 mg Q5M PRN SL Prn Chest Pain 06/03/16 21:30 07/03/16 21:29 Ondansetron HCl (Zofran) 4 mg Q6H PRN IVP Nausea & Vomiting 06/03/16 21:30 07/03/16 21:29 Phenytoin (Dilantin) 100 mg BID ORAL 06/04/16 09:00 07/04/16 08:59 06/04/16 08:56 Polyethylene Glycol (Miralax) 17 gm DAILYPRN PRN ORAL Constipation 06/03/16 21:30 07/03/16 21:29 Sodium Chloride (0.45% NS 1000ml) 1,000 ml @ 50 mls/hr Q20H IV 06/03/16 21:45 07/03/16 21:44 06/04/16 08:56 Temazepam (Restoril) 15 mg HSPRN PRN ORAL Insomnia 06/03/16 21:30 06/10/16 21:29 Assessment/Plan Problem List: (1) Sacral decubitus ulcer, stage III Assessment & Plan: 80 F multiple medical problems as noted above here for sepsis / bacteremia. Noted to have sacral decub ulcer on admission. Wound evaluated and chronic stage II sacral decub ulcer noted. looks to have formed, healed, and seems stable. No acute infection noted from site. No acute surgical intervention necessary at this time. Sacral decubitus ulcer care as per hospital protocol okay for bacitracin or other topical cream to area place non adhesive dressings. reduce pressure on site turn q2h to avoid worsening thank you for this consultation. will continue to follow and monitor wound. ICD Codes: L89.153 - Pressure ulcer of sacral region, stage 3 SNOMED: [id number], [id number] Status: stable Taco Carter MD Jun 04, 2016 10:52
[2016-06-04] MEDS ORDERED: NovoLOG Insulin Flexpen SUBQ SCH (11:30)
[2016-06-04] MEDS ORDERED: Nitroglycerin Subl 0.4mg tab (Bottle Of 25) SL PRN (22:05)
--- NOTE | 2016-06-04 22:08 | Consultation ---
Consult Note Assessment/Plan ID Dic# [id number] A: The patient is an 80-year-old female Fever Bacteremia RO UTI Ro UTI CVA HTN Seizure Hypercholesteremia G-tube Aphasia Dementia DM PLAN: Monitor the patient on IV Vanco and Cefepime d# 1 Urine culture. Blood culture. Sputum Culture Monitor CBC. Monitor BMP RICARDO BOLDEN M.D. Jun 04, 2016 22:08
[2016-06-04] MEDS: Heparin 5000 units/ml inj SUBQ SCH (22:43)
[2016-06-05] VITALS: BP 96/46
[2016-06-05] MEDS ORDERED: DuoNeb 0.5-3(2.5)mg/3ml neb HHN PRN (01:30)
[2016-06-05] MEDS ORDERED: Vancomycin 1.5gm/D5W 300ml 300 ML IVPB SCH ×2 (03:00→11:00)
[2016-06-05] MEDS ORDERED: Mylanta II UD 30ml ORAL PRN (03:30)
[2016-06-05 04:00] VITALS: BP 163/68
[2016-06-05] MEDS: NovoLOG Insulin Flexpen SUBQ SCH ×4 (06:37→17:56)
[2016-06-05 07:24] LABS: EOSINOPHILS % (AUTO) 4.2 % (0.0-3.0); LYMPHOCYTES % (AUTO) 30.5 % (20.0-45.0); MEAN CORPUSCULAR HEMOGLOBIN 35.5 PG (27.0-31.0); MEAN CORPUSCULAR HGB CONC 34.8 G/DL (32.0-36.0); MEAN CORPUSCULAR VOLUME 102 FL (80-99); MEAN PLATELET VOLUME 8.5 FL (6.5-10.1); MONOCYTES % (AUTO) 10.7 % (1.0-10.0); NEUTROPHILS % (AUTO) 53.6 % (45.0-75.0); PLATELET COUNT 158 K/UL (150-450); RED BLOOD COUNT 3.09 M/UL (4.20-5.40); RED CELL DISTRIBUTION WIDTH 11.8 % (11.6-14.8); WHITE BLOOD COUNT 4.7 K/UL (4.8-10.8)
[2016-06-05 07:25] LABS: INR 1.1 (0.9-1.1); PROTHROMBIN TIME 11.6 SEC (9.30-11.50)
[2016-06-05 07:48] LABS: MAGNESIUM 2.1 mg/dL (1.7-2.5); PHOSPHORUS 3.3 mg/dL (2.5-4.8)
[2016-06-05 07:52] LABS: ALANINE AMINOTRANSFERASE 26 U/L (3-33); ALBUMIN/GLOBULIN RATIO 0.8 (1.0-2.7); ANION GAP 15 (5-15); ASPARTATE AMINO TRANSFERASE 51 U/L (5-40); CALCIUM 8.1 mg/dL (8.6-10.2); CARBON DIOXIDE 23 mEQ/L (20-30); CHLORIDE 99 mEQ/L (98-107); CREATININE 0.9 mg/dL (0.5-0.9); HEMOLYSIS 88; POTASSIUM 4.4 mEQ/L (3.4-4.9); SODIUM 137 mEQ/L (135-145); TOTAL PROTEIN 7.6 g/dL (6.6-8.7)
[2016-06-05 07:58] VITALS: BP 146/73
--- NOTE | 2016-06-05 09:25 | Infectious Diseases Prog Note ---
Assessment/Plan Assessment/Plan A: The patient is an 80-year-old female Fever improving Bacteremia CoNS RO UTI Ro UTI CVA HTN Seizure Hypercholesteremia G-tube Aphasia Dementia DM PLAN: Monitor the patient on IV Vanco and Cefepime d# 2 / Urine culture. Blood culture. Sputum Culture Monitor CBC. Monitor BMP Subjective Constitutional: Denies: anorexia, chills, drenching sweats, fatigue, fever, no symptoms, other Allergies: Coded Allergies: No Known Allergies (Verified , 01/27/10) Objective Vital Signs Last 24 Hour Vital Signs Date Time Temp Pulse Resp B/P Pulse Ox O2 Delivery O2 Flow Rate FiO2 06/05/16 07:58 98.3 96 21 146/73 95 Room Air 06/05/16 04:00 97.7 95 20 163/68 100 Room Air 06/05/16 00:00 98.2 76 20 96/46 99 Room Air 06/04/16 20:00 97.5 76 20 142/64 100 Room Air 06/04/16 17:00 178/85 06/04/16 16:00 78 06/04/16 16:00 97.3 90 22 178/85 100 Room Air 06/04/16 11:27 98.4 86 20 157/53 96 Room Air Height (Feet): 5 Height (Inches): 5.00 Weight (Pounds): 200 HEENT: atraumatic Respiratory/Chest: lungs clear Cardiovascular: no gallop/murmur Abdomen: non distended Microbiology Date/Time Source Procedure Growth Status 06/03/16 21:30 Blood Blood Culture - Preliminary NO GROWTH AFTER 24 HOURS Resulted 06/03/16 21:15 Blood Blood Culture - Preliminary NO GROWTH AFTER 24 HOURS Resulted 06/03/16 22:00 Urine,Clean Catch Urine Culture - Preliminary NO GROWTH Resulted Laboratory Tests Test 06/05/16 06:20 White Blood Count 4.7 K/UL (4.8-10.8) L Red Blood Count 3.09 M/UL (4.20-5.40) L Hemoglobin 11.0 G/DL (12.0-16.0) L Hematocrit 31.5 % (37.0-47.0) L Mean Corpuscular Volume 102 FL (80-99) H Mean Corpuscular Hemoglobin 35.5 PG (27.0-31.0) H Mean Corpuscular Hemoglobin Concent 34.8 G/DL (32.0-36.0) Red Cell Distribution Width 11.8 % (11.6-14.8) Platelet Count 158 K/UL (150-450) Mean Platelet Volume 8.5 FL (6.5-10.1) Neutrophils (%) (Auto) 53.6 % (45.0-75.0) Lymphocytes (%) (Auto) 30.5 % (20.0-45.0) Monocytes (%) (Auto) 10.7 % (1.0-10.0) H Eosinophils (%) (Auto) 4.2 % (0.0-3.0) H Basophils (%) (Auto) 1.0 % (0.0-2.0) Prothrombin Time 11.6 SEC (9.30-11.50) H Prothromb Time International Ratio 1.1 (0.9-1.1) Activated Partial Thromboplast Time 27 SEC (23-33) Sodium Level 137 mEQ/L (135-145) Potassium Level 4.4 mEQ/L (3.4-4.9) Chloride Level 99 mEQ/L (98-107) Carbon Dioxide Level 23 mEQ/L (20-30) Anion Gap 15 (5-15) Blood Urea Nitrogen 26 mg/dL (7-23) H Creatinine 0.9 mg/dL (0.5-0.9) Estimat Glomerular Filtration Rate mL/min (>60) Glucose Level 183 mg/dL (74-106) H Calcium Level 8.1 mg/dL (8.6-10.2) L Phosphorus Level 3.3 mg/dL (2.5-4.8) Magnesium Level 2.1 mg/dL (1.7-2.5) Total Bilirubin 0.2 mg/dL (0.0-1.2) Aspartate Amino Transf (AST/SGOT) 51 U/L (5-40) H Alanine Aminotransferase (ALT/SGPT) 26 U/L (3-33) Alkaline Phosphatase 184 U/L (35-104) H Total Protein 7.6 g/dL (6.6-8.7) Albumin 3.5 g/dL (3.5-5.2) Globulin 4.1 g/dL Albumin/Globulin Ratio 0.8 (1.0-2.7) L Phenytoin (Dilantin) Level 25.9 ug/mL (10-20) H Current Medications Medications (Trade) Dose Ordered Sig/Nancy Route PRN Reason Start Time Stop Time Status Last Admin Dose Admin Acetaminophen (Tylenol) 650 mg Q4H PRN ORAL fever 06/05/16 01:30 07/05/16 01:29 Al Hydroxide/Mg Hydroxide (Mylanta II) 30 ml Q6H PRN ORAL dyspepsia 06/05/16 03:30 07/05/16 03:29 Albuterol/ Ipratropium (DuoNeb 0.5-3(2.5)mg/3ml) 3 ml Q4H PRN HHN Shortness of Breath 06/05/16 01:30 06/10/16 01:29 Cefepime HCl/ Dextrose (Maxipime/D5W) 55 ml @ 110 mls/hr Q24H IV 06/05/16 09:00 06/12/16 08:59 Clonidine HCl (Catapres) 0.1 mg Q6H PRN GT SBP>160 06/05/16 02:00 07/05/16 01:59 Dextrose (Dextrose 50%) STAT PRN IV Hypoglycemia 06/05/16 21:30 07/05/16 21:29 Heparin Sodium (Porcine) (Heparin 5000 units/ml) 5,000 units EVERY 12 HOURS SUBQ 06/04/16 22:00 07/04/16 21:59 06/04/16 22:43 Insulin Aspart (NovoLOG) BEFORE MEALS AND HS SUBQ 06/05/16 06:30 07/05/16 06:29 06/05/16 06:37 Levetiracetam (Keppra) 500 mg DAILY GT 06/05/16 09:00 07/05/16 08:59 Nitroglycerin (Ntg) 0.4 mg Q5M PRN SL Prn Chest Pain 06/04/16 22:05 07/04/16 22:04 Ondansetron HCl (Zofran) 4 mg Q6H PRN IVP Nausea & Vomiting 06/05/16 03:30 07/05/16 03:29 Phenytoin (Dilantin) 100 mg BID ORAL 06/04/16 22:00 07/04/16 21:59 06/04/16 22:43 Polyethylene Glycol (Miralax) 17 gm DAILYPRN PRN ORAL Constipation 06/05/16 21:30 07/05/16 21:29 Sodium Chloride 1,000 ml @ 50 mls/hr Q20H IV 06/04/16 22:00 07/04/16 21:59 06/04/16 22:43 Temazepam (Restoril) 15 mg HSPRN PRN ORAL Insomnia 06/05/16 21:30 06/12/16 21:29 Vancomycin HCl 1 ea 1 ea DAILY PRN MISC Per rx protocol 06/04/16 22:15 07/04/16 22:14 Vancomycin HCl/ Dextrose (Vancomycin 1.5gm/D5W 300ml) 300 ml @ 150 mls/hr Q12H IVPB 06/05/16 03:00 06/10/16 02:59 06/05/16 04:04 RICARDO BOLDEN M.D. Jun 05, 2016 09:25
[2016-06-05] MEDS: Phenytoin 100mg cap ORAL SCH ×2 (09:35→18:00)
[2016-06-05] MEDS: Cefepime HCl 1 GM in D5W 55 ML IV SCH (09:36)
[2016-06-05] MEDS: Heparin 5000 units/ml inj SUBQ SCH ×2 (09:37→20:02)
--- NOTE | 2016-06-05 11:02 | General Progress Note ---
Progress Note Progress Note Pt seen for sacral decubitus it is stage II no necrotic or devitalized tissue. no signs of subjacent pus or undrained fluid. This is not the cause of pts sepsis. No need at present for surgical debridement will follow MANASA LARIOS Jun 05, 2016 11:02
[2016-06-05 11:54] VITALS: BP 131/58
[2016-06-05] MEDS ORDERED: Vancomycin 1.5gm/D5W 300ml 325 ML IVPB SCH (15:00)
[2016-06-05 16:00] VITALS: BP 164/87
[2016-06-05 19:00] VITALS: BP 153/83
[2016-06-05] MEDS ORDERED: Sterile Water Irrig 1000ml IRRIG ONE (19:51)
[2016-06-05] MEDS ORDERED: Miralax 17gm pkt ORAL PRN (21:30)
--- NOTE | 2016-06-05 23:34 | Pulmonology Progress Note ---
Assessment/Plan Problems: (1) Sepsis (2) Sacral decubitus ulcer, stage III (3) Diabetes (4) Dementia (5) G tube feedings Assessment/Plan continue antibiotics check cultures afebrile f/u wbc tolerating diet sliding scale wound care site Subjective ROS Limited/Unobtainable: No Interval Events: comfortable Allergies: Coded Allergies: No Known Allergies (Verified , 01/27/10) Objective Last 24 Hour Vital Signs Date Time Temp Pulse Resp B/P Pulse Ox O2 Delivery O2 Flow Rate FiO2 06/05/16 19:00 96.8 67 20 153/83 100 Room Air 06/05/16 16:00 97.3 70 20 164/87 96 Room Air 06/05/16 11:54 97.9 92 20 131/58 97 Room Air 06/05/16 07:58 98.3 96 21 146/73 95 Room Air 06/05/16 04:00 97.7 95 20 163/68 100 Room Air 06/05/16 00:00 98.2 76 20 96/46 99 Room Air Intake and Output 06/04/16 06/05/16 19:00 07:00 Intake Total 680 ml 510 ml Output Total 100 ml 350 ml Balance 580 ml 160 ml Intake Free Water 90 ml 200 ml IV Total 410 ml 250 ml Tube Feeding 180 ml 60 ml Output Urine Total 100 ml 350 ml General Appearance: WD/WN, no acute distress HEENT: normocephalic, atraumatic Respiratory/Chest: chest wall non-tender, lungs clear Cardiovascular: normal peripheral pulses, normal rate Abdomen: normal bowel sounds, soft, non tender Extremities: no cyanosis 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 Microbiology Date/Time Source Procedure Growth Status 06/03/16 21:30 Blood Blood Culture - Preliminary NO GROWTH AFTER 24 HOURS Resulted 06/03/16 21:15 Blood Blood Culture - Preliminary NO GROWTH AFTER 24 HOURS Resulted 06/03/16 22:00 Urine,Clean Catch Urine Culture - Preliminary NO GROWTH Resulted Laboratory Tests 06/05/16 06:20: White Blood Count 4.7L, Red Blood Count 3.09L, Hemoglobin 11.0L, Hematocrit 31.5L, Mean Corpuscular Volume 102H, Mean Corpuscular Hemoglobin 35.5H, Mean Corpuscular Hemoglobin Concent 34.8, Red Cell Distribution Width 11.8, Platelet Count 158, Mean Platelet Volume 8.5, Neutrophils (%) (Auto) 53.6, Lymphocytes (% ) (Auto) 30.5, Monocytes (%) (Auto) 10.7H, Eosinophils (%) (Auto) 4.2H, Basophils (%) (Auto) 1.0, Prothrombin Time 11.6H, Prothromb Time International Ratio 1.1, Activated Partial Thromboplast Time 27, Sodium Level 137, Potassium Level 4.4, Chloride Level 99, Carbon Dioxide Level 23, Anion Gap 15, Blood Urea Nitrogen 26H, Creatinine 0.9, Estimat Glomerular Filtration Rate , Glucose Level 183H, Calcium Level 8.1L, Phosphorus Level 3.3, Magnesium Level 2.1, Total Bilirubin 0.2, Aspartate Amino Transf (AST/SGOT) 51H, Alanine Aminotransferase (ALT/SGPT) 26, Alkaline Phosphatase 184H, Total Protein 7.6, Albumin 3.5, Globulin 4.1, Albumin/Globulin Ratio 0.8L, Phenytoin (Dilantin) Level 25.9H Current Medications Medications (Trade) Dose Ordered Sig/Nancy Route PRN Reason Start Time Stop Time Status Last Admin Dose Admin Acetaminophen (Tylenol) 650 mg Q4H PRN ORAL fever 06/05/16 01:30 07/05/16 01:29 Al Hydroxide/Mg Hydroxide (Mylanta II) 30 ml Q6H PRN ORAL dyspepsia 06/05/16 03:30 07/05/16 03:29 Albuterol/ Ipratropium (DuoNeb 0.5-3(2.5)mg/3ml) 3 ml Q4H PRN HHN Shortness of Breath 06/05/16 01:30 06/10/16 01:29 Cefepime HCl/ Dextrose (Maxipime/D5W) 55 ml @ 110 mls/hr Q24H IV 06/05/16 09:00 06/12/16 08:59 06/05/16 09:36 Clonidine HCl (Catapres) 0.1 mg Q6H PRN GT SBP>160 06/05/16 02:00 07/05/16 01:59 Dextrose (Dextrose 50%) STAT PRN IV Hypoglycemia 06/05/16 21:30 07/05/16 21:29 Heparin Sodium (Porcine) (Heparin 5000 units/ml) 5,000 units EVERY 12 HOURS SUBQ 06/04/16 22:00 07/04/16 21:59 06/05/16 20:02 Insulin Aspart (NovoLOG) Q6HR SUBQ 06/05/16 18:00 07/05/16 17:59 Levetiracetam (Keppra) 500 mg DAILY GT 06/05/16 09:00 07/05/16 08:59 06/05/16 09:34 Nitroglycerin (Ntg) 0.4 mg Q5M PRN SL Prn Chest Pain 06/04/16 22:05 07/04/16 22:04 Ondansetron HCl (Zofran) 4 mg Q6H PRN IVP Nausea & Vomiting 06/05/16 03:30 07/05/16 03:29 Phenytoin (Dilantin) 100 mg DAILY ORAL 06/06/16 09:00 07/06/16 08:59 Polyethylene Glycol (Miralax) 17 gm DAILYPRN PRN ORAL Constipation 06/05/16 21:30 07/05/16 21:29 Sodium Chloride 1,000 ml @ 50 mls/hr Q20H IV 06/04/16 22:00 07/04/16 21:59 06/05/16 18:28 Temazepam (Restoril) 15 mg HSPRN PRN ORAL Insomnia 06/05/16 21:30 06/12/16 21:29 Vancomycin HCl 1 ea 1 ea DAILY PRN MISC Per rx protocol 06/04/16 22:15 07/04/16 22:14 Vancomycin HCl/ Dextrose (Vancomycin 1.5gm/D5W 300ml) 325 ml @ 162.5 mls/ hr Q12HR@0300,1500 IVPB 06/05/16 15:00 06/10/16 02:59 06/05/16 15:58 TREY BEE Jun 05, 2016 23:34
[2016-06-06] VITALS: BP 160/85
[2016-06-06] MEDS: NovoLOG Insulin Flexpen SUBQ SCH ×4 (01:34→18:33)
[2016-06-06 04:00] VITALS: BP 147/72
[2016-06-06] MEDS ORDERED: Vancomycin 1gm/D5W 275ml IVPB SCH ×2 (08:00)
--- NOTE | 2016-06-06 08:13 | General Progress Note ---
Progress Note Progress Note Minimal sacral decubitus with tiny area of skin breakdown, local care and minimize pressure only. MYA DERAS Jun 06, 2016 08:13
[2016-06-06 08:15] VITALS: BP 155/85
[2016-06-06] MEDS: Phenytoin 100mg cap ORAL SCH (09:00)
--- NOTE | 2016-06-06 09:25 | Infectious Diseases Prog Note ---
Assessment/Plan Assessment/Plan A: The patient is an 80-year-old female Fever improving Bacteremia CoNS RO UTI Ro UTI CVA HTN Seizure Hypercholesteremia G-tube Aphasia Dementia DM PLAN: Monitor the patient on IV Vanco and Cefepime d# 3 / Urine culture. Blood culture. Sputum Culture Monitor CBC. Monitor BMP Subjective Constitutional: Denies: anorexia, chills, drenching sweats, fatigue, fever, no symptoms, other Allergies: Coded Allergies: No Known Allergies (Verified , 01/27/10) Objective Vital Signs Last 24 Hour Vital Signs Date Time Temp Pulse Resp B/P Pulse Ox O2 Delivery O2 Flow Rate FiO2 06/06/16 08:15 98.4 74 20 155/85 97 Room Air 06/06/16 04:00 98.2 95 20 147/72 98 06/06/16 00:00 98.9 74 20 160/85 93 Room Air 06/05/16 19:00 96.8 67 20 153/83 100 Room Air 06/05/16 16:00 97.3 70 20 164/87 96 Room Air 06/05/16 11:54 97.9 92 20 131/58 97 Room Air Height (Feet): 5 Height (Inches): 5.00 Weight (Pounds): 200 HEENT: anicteric Respiratory/Chest: no respiratory distress Cardiovascular: regularly irregular Abdomen: no organomegaly Microbiology Date/Time Source Procedure Growth Status 06/03/16 21:30 Blood Blood Culture - Preliminary NO GROWTH AFTER 48 HOURS Resulted 06/03/16 21:15 Blood Blood Culture - Preliminary NO GROWTH AFTER 48 HOURS Resulted 06/03/16 22:00 Urine,Clean Catch Urine Culture - Final NO GROWTH AFTER 48 HOURS Complete Laboratory Tests Test 06/06/16 02:15 Vancomycin Level Trough 27.7 ug/mL (5.0-12.0) H Current Medications Medications (Trade) Dose Ordered Sig/Nancy Route PRN Reason Start Time Stop Time Status Last Admin Dose Admin Acetaminophen (Tylenol) 650 mg Q4H PRN ORAL fever 06/05/16 01:30 07/05/16 01:29 Al Hydroxide/Mg Hydroxide (Mylanta II) 30 ml Q6H PRN ORAL dyspepsia 06/05/16 03:30 07/05/16 03:29 Albuterol/ Ipratropium (DuoNeb 0.5-3(2.5)mg/3ml) 3 ml Q4H PRN HHN Shortness of Breath 06/05/16 01:30 06/10/16 01:29 Cefepime HCl/ Dextrose (Maxipime/D5W) 55 ml @ 110 mls/hr Q24H IV 06/05/16 09:00 06/12/16 08:59 06/05/16 09:36 Clonidine HCl (Catapres) 0.1 mg Q6H PRN GT SBP>160 06/05/16 02:00 07/05/16 01:59 Dextrose (Dextrose 50%) STAT PRN IV Hypoglycemia 06/05/16 21:30 07/05/16 21:29 Heparin Sodium (Porcine) (Heparin 5000 units/ml) 5,000 units EVERY 12 HOURS SUBQ 06/04/16 22:00 07/04/16 21:59 06/05/16 20:02 Insulin Aspart (NovoLOG) Q6HR SUBQ 06/05/16 18:00 07/05/16 17:59 06/06/16 06:29 Levetiracetam (Keppra) 500 mg DAILY GT 06/05/16 09:00 07/05/16 08:59 06/05/16 09:34 Nitroglycerin (Ntg) 0.4 mg Q5M PRN SL Prn Chest Pain 06/04/16 22:05 07/04/16 22:04 Ondansetron HCl (Zofran) 4 mg Q6H PRN IVP Nausea & Vomiting 06/05/16 03:30 07/05/16 03:29 Phenytoin (Dilantin) 100 mg DAILY ORAL 06/06/16 09:00 07/06/16 08:59 Polyethylene Glycol (Miralax) 17 gm DAILYPRN PRN ORAL Constipation 06/05/16 21:30 07/05/16 21:29 Sodium Chloride 1,000 ml @ 50 mls/hr Q20H IV 06/04/16 22:00 07/04/16 21:59 06/05/16 18:28 Temazepam (Restoril) 15 mg HSPRN PRN ORAL Insomnia 06/05/16 21:30 06/12/16 21:29 Vancomycin HCl (Vanco rx to dose) 1 ea DAILY PRN MISC Per rx protocol 06/04/16 22:15 07/04/16 22:14 RICARDO BOLDEN M.D. Jun 06, 2016 09:25
[2016-06-06] MEDS: Cefepime HCl 1 GM in D5W 55 ML IV SCH (09:28)
[2016-06-06] MEDS: Heparin 5000 units/ml inj SUBQ SCH ×2 (09:32→20:02)
--- NOTE | 2016-06-06 09:34 | Cardiology Report ---
APPROVED REPORT EKG Measurement Heart [id number] Normal sinus rhythm Minimal voltage criteria for LVH, may be normal variant Nonspecific T wave abnormality Abnormal ECG
--- NOTE | 2016-06-06 09:37 | Diagnostic Imaging Report ---
Indication: SOB Technique: One view of the chest Comparison: The 2015 Findings: Lungs and pleural spaces are clear. Heart size is normal. Aorta is tortuous and calcified. No significant change Impression: No acute process
[2016-06-06 12:00] VITALS: BP 167/76
[2016-06-06 16:00] VITALS: BP 155/62
--- NOTE | 2016-06-06 17:11 | Pulmonology Progress Note ---
Assessment/Plan Problems: (1) Sepsis (2) Sacral decubitus ulcer, stage III (3) Diabetes (4) Dementia (5) G tube feedings Assessment/Plan improving continue antibiotics check cultures f/u wbc tolerating diet sliding scale wound care site Subjective ROS Limited/Unobtainable: No Constitutional: Reports: no symptoms HEENT: Repors: no symptoms Respiratory: Reports: no symptoms Cardiovascular: Reports: no symptoms Allergies: Coded Allergies: No Known Allergies (Verified , 01/27/10) Objective Last 24 Hour Vital Signs Date Time Temp Pulse Resp B/P Pulse Ox O2 Delivery O2 Flow Rate FiO2 06/06/16 12:00 97.6 66 20 167/76 97 Room Air 06/06/16 08:15 98.4 74 20 155/85 97 Room Air 06/06/16 04:00 98.2 95 20 147/72 98 06/06/16 00:00 98.9 74 20 160/85 93 Room Air 06/05/16 19:00 96.8 67 20 153/83 100 Room Air Intake and Output 06/05/16 06/06/16 19:00 07:00 Intake Total 575.0 ml 340 ml Output Total 500 ml 800 ml Balance 75.0 ml -460 ml Intake Free Water 100 ml IV Total 325.0 ml 250 ml Tube Feeding 150 ml 90 ml Output Urine Total 500 ml 800 ml # Bowel Movements 2 5 General Appearance: WD/WN HEENT: normocephalic Respiratory/Chest: chest wall non-tender, lungs clear Cardiovascular: normal peripheral pulses, normal rate Abdomen: normal bowel sounds, soft, non tender Skin: no rash Microbiology Date/Time Source Procedure Growth Status 06/03/16 21:30 Blood Blood Culture - Preliminary NO GROWTH AFTER 48 HOURS Resulted 06/03/16 21:15 Blood Blood Culture - Preliminary NO GROWTH AFTER 48 HOURS Resulted 06/03/16 22:00 Urine,Clean Catch Urine Culture - Final NO GROWTH AFTER 48 HOURS Complete Laboratory Tests 06/06/16 02:15: Vancomycin Level Trough 27.7H 06/06/16 13:30: Random Vancomycin Level 18.6 Current Medications Medications (Trade) Dose Ordered Sig/Nancy Route PRN Reason Start Time Stop Time Status Last Admin Dose Admin Acetaminophen (Tylenol) 650 mg Q4H PRN ORAL fever 06/05/16 01:30 07/05/16 01:29 Al Hydroxide/Mg Hydroxide (Mylanta II) 30 ml Q6H PRN ORAL dyspepsia 06/05/16 03:30 07/05/16 03:29 Albuterol/ Ipratropium (DuoNeb 0.5-3(2.5)mg/3ml) 3 ml Q4H PRN HHN Shortness of Breath 06/05/16 01:30 06/10/16 01:29 Cefepime HCl/ Dextrose (Maxipime/D5W) 55 ml @ 110 mls/hr Q24H IV 06/05/16 09:00 06/12/16 08:59 06/06/16 09:28 Clonidine HCl (Catapres) 0.1 mg Q6H PRN GT SBP>160 06/05/16 02:00 07/05/16 01:59 Dextrose (Dextrose 50%) STAT PRN IV Hypoglycemia 06/05/16 21:30 07/05/16 21:29 Heparin Sodium (Porcine) (Heparin 5000 units/ml) 5,000 units EVERY 12 HOURS SUBQ 06/04/16 22:00 07/04/16 21:59 06/06/16 09:32 Insulin Aspart (NovoLOG) Q6HR SUBQ 06/05/16 18:00 07/05/16 17:59 06/06/16 12:32 Levetiracetam 500 mg 500 mg DAILY GT 06/07/16 09:00 07/05/16 08:59 Nitroglycerin (Ntg) 0.4 mg Q5M PRN SL Prn Chest Pain 06/04/16 22:05 07/04/16 22:04 Ondansetron HCl (Zofran) 4 mg Q6H PRN IVP Nausea & Vomiting 06/05/16 03:30 07/05/16 03:29 Phenytoin (Dilantin) 100 mg DAILY ORAL 06/06/16 09:00 07/06/16 08:59 Polyethylene Glycol (Miralax) 17 gm DAILYPRN PRN ORAL Constipation 06/05/16 21:30 07/05/16 21:29 Sodium Chloride 1,000 ml @ 50 mls/hr Q20H IV 06/04/16 22:00 07/04/16 21:59 06/06/16 14:25 Temazepam (Restoril) 15 mg HSPRN PRN ORAL Insomnia 06/05/16 21:30 06/12/16 21:29 Vancomycin HCl (Vanco rx to dose) 1 ea DAILY PRN MISC Per rx protocol 06/04/16 22:15 07/04/16 22:14 Vancomycin HCl/ Dextrose (Vancomycin/D5W) 275 ml @ 183.708 mls/hr Q12HR IVPB 06/06/16 21:00 06/11/16 20:59 TREY BEE Jun 06, 2016 17:11
[2016-06-06 20:00] VITALS: BP 145/51
[2016-06-06] MEDS: Vancomycin 1gm in D5W 275ml IVPB SCH (20:00)
[2016-06-07] VITALS: BP 157/70
[2016-06-07] MEDS: NovoLOG Insulin Flexpen SUBQ SCH ×4 (00:40→18:00)
[2016-06-07 04:00] VITALS: BP 169/169
[2016-06-07 07:19] LABS: MEAN CORPUSCULAR HEMOGLOBIN 33.4 PG (27.0-31.0); MEAN CORPUSCULAR HGB CONC 33.3 G/DL (32.0-36.0); MEAN CORPUSCULAR VOLUME 100 FL (80-99); MEAN PLATELET VOLUME 8.5 FL (6.5-10.1); PLATELET COUNT 155 K/UL (150-450); RED BLOOD COUNT 3.23 M/UL (4.20-5.40); RED CELL DISTRIBUTION WIDTH 11.4 % (11.6-14.8); WHITE BLOOD COUNT 3.4 K/UL (4.8-10.8)
[2016-06-07 07:25] LABS: PHOSPHORUS 2.9 mg/dL (2.5-4.8)
[2016-06-07 07:36] LABS: ALANINE AMINOTRANSFERASE 21 U/L (3-33); ALBUMIN/GLOBULIN RATIO 0.8 (1.0-2.7); ANION GAP 14 (5-15); ASPARTATE AMINO TRANSFERASE 33 U/L (5-40); CALCIUM 8.6 mg/dL (8.6-10.2); CARBON DIOXIDE 25 mEQ/L (20-30); CHLORIDE 100 mEQ/L (98-107); CREATININE 0.9 mg/dL (0.5-0.9); HEMOLYSIS 9; SODIUM 139 mEQ/L (135-145); TOTAL PROTEIN 7.4 g/dL (6.6-8.7)
[2016-06-07 08:13] VITALS: BP 104/64
--- NOTE | 2016-06-07 08:42 | Infectious Diseases Prog Note ---
Assessment/Plan Assessment/Plan A: The patient is an 80-year-old female Fever SP Bacteremia CoNS No evidence of UTI or Pna CVA HTN Seizure Hypercholesteremia G-tube Aphasia Dementia DM PLAN: Monitor the patient on IV Vanco d# 4 / 7 and DC Cefepime d# 4 Blood culture. Sputum Culture Monitor CBC. Monitor BMP Subjective Constitutional: Denies: anorexia, chills, drenching sweats, fatigue, fever, no symptoms, other Allergies: Coded Allergies: No Known Allergies (Verified , 01/27/10) Objective Vital Signs Last 24 Hour Vital Signs Date Time Temp Pulse Resp B/P Pulse Ox O2 Delivery O2 Flow Rate FiO2 06/07/16 08:13 97.9 67 18 104/64 95 Room Air 06/07/16 04:00 97.1 70 20 169/169 97 Room Air 06/07/16 00:00 97.5 66 20 157/70 98 Room Air 06/06/16 20:00 97.2 64 18 145/51 98 Room Air 06/06/16 19:47 69 20 Room Air 06/06/16 16:00 97.9 65 16 155/62 97 Room Air 06/06/16 12:00 97.6 66 20 167/76 97 Room Air Height (Feet): 5 Height (Inches): 5.00 Weight (Pounds): 200 HEENT: anicteric Respiratory/Chest: normal breath sounds Cardiovascular: regularly irregular Abdomen: no mass Laboratory Tests Test 06/06/16 13:30 06/07/16 06:20 Random Vancomycin Level 18.6 ug/mL White Blood Count 3.4 K/UL (4.8-10.8) L Red Blood Count 3.23 M/UL (4.20-5.40) L Hemoglobin 10.8 G/DL (12.0-16.0) L Hematocrit 32.5 % (37.0-47.0) L Mean Corpuscular Volume 100 FL (80-99) H Mean Corpuscular Hemoglobin 33.4 PG (27.0-31.0) H Mean Corpuscular Hemoglobin Concent 33.3 G/DL (32.0-36.0) Red Cell Distribution Width 11.4 % (11.6-14.8) L Platelet Count 155 K/UL (150-450) Mean Platelet Volume 8.5 FL (6.5-10.1) Neutrophils (%) (Auto) % (45.0-75.0) Lymphocytes (%) (Auto) % (20.0-45.0) Monocytes (%) (Auto) % (1.0-10.0) Eosinophils (%) (Auto) % (0.0-3.0) Basophils (%) (Auto) % (0.0-2.0) Neutrophils % (Manual) Pending Lymphocytes % (Manual) Pending Platelet Estimate Pending Platelet Morphology Pending Sodium Level 139 mEQ/L (135-145) Potassium Level 4.0 mEQ/L (3.4-4.9) Chloride Level 100 mEQ/L (98-107) Carbon Dioxide Level 25 mEQ/L (20-30) Anion Gap 14 (5-15) Blood Urea Nitrogen 17 mg/dL (7-23) Creatinine 0.9 mg/dL (0.5-0.9) Estimat Glomerular Filtration Rate mL/min (>60) Glucose Level 100 mg/dL (74-106) Calcium Level 8.6 mg/dL (8.6-10.2) Phosphorus Level 2.9 mg/dL (2.5-4.8) Magnesium Level 2.0 mg/dL (1.7-2.5) Total Bilirubin < 0.2 mg/dL (0.0-1.2) Aspartate Amino Transf (AST/SGOT) 33 U/L (5-40) Alanine Aminotransferase (ALT/SGPT) 21 U/L (3-33) Alkaline Phosphatase 155 U/L (35-104) H Total Protein 7.4 g/dL (6.6-8.7) Albumin 3.3 g/dL (3.5-5.2) L Globulin 4.1 g/dL Albumin/Globulin Ratio 0.8 (1.0-2.7) L Phenytoin (Dilantin) Level 15.4 ug/mL (10-20) Current Medications Medications (Trade) Dose Ordered Sig/Nancy Route PRN Reason Start Time Stop Time Status Last Admin Dose Admin Acetaminophen (Tylenol) 650 mg Q4H PRN ORAL fever 06/05/16 01:30 07/05/16 01:29 Al Hydroxide/Mg Hydroxide (Mylanta II) 30 ml Q6H PRN ORAL dyspepsia 06/05/16 03:30 3/2/17 03:29 Albuterol/ Ipratropium (DuoNeb 0.5-3(2.5)mg/3ml) 3 ml Q4H PRN HHN Shortness of Breath 06/05/16 01:30 06/10/16 01:29 Cefepime HCl/ Dextrose (Maxipime/D5W) 55 ml @ 110 mls/hr Q24H IV 06/05/16 09:00 06/12/16 08:59 06/06/16 09:28 Clonidine HCl (Catapres) 0.1 mg Q6H PRN GT SBP>160 06/05/16 02:00 07/05/16 01:59 Dextrose (Dextrose 50%) STAT PRN IV Hypoglycemia 06/05/16 21:30 07/05/16 21:29 Heparin Sodium (Porcine) (Heparin 5000 units/ml) 5,000 units EVERY 12 HOURS SUBQ 06/04/16 22:00 07/04/16 21:59 06/06/16 20:02 Insulin Aspart (NovoLOG) Q6HR SUBQ 06/05/16 18:00 07/05/16 17:59 06/07/16 05:41 Levetiracetam 500 mg 500 mg DAILY GT 06/07/16 09:00 07/05/16 08:59 Nitroglycerin (Ntg) 0.4 mg Q5M PRN SL Prn Chest Pain 06/04/16 22:05 07/04/16 22:04 Ondansetron HCl (Zofran) 4 mg Q6H PRN IVP Nausea & Vomiting 06/05/16 03:30 07/05/16 03:29 Phenytoin (Dilantin) 100 mg DAILY ORAL 06/06/16 09:00 07/06/16 08:59 Polyethylene Glycol (Miralax) 17 gm DAILYPRN PRN ORAL Constipation 06/05/16 21:30 07/05/16 21:29 Sodium Chloride 1,000 ml @ 50 mls/hr Q20H IV 06/04/16 22:00 07/04/16 21:59 06/06/16 14:25 Temazepam (Restoril) 15 mg HSPRN PRN ORAL Insomnia 06/05/16 21:30 06/12/16 21:29 Vancomycin HCl (Vanco rx to dose) 1 ea DAILY PRN MISC Per rx protocol 06/04/16 22:15 07/04/16 22:14 Vancomycin HCl/ Dextrose (Vancomycin/D5W) 275 ml @ 183.708 mls/hr Q12HR IVPB 06/06/16 21:00 06/11/16 20:59 06/06/16 20:00 RICARDO BOLDEN M.D. Jun 07, 2016 08:42
[2016-06-07] MEDS ORDERED: levETIRAcetam 500mg/5ml Liquid GT SCH (09:00)
[2016-06-07] MEDS: Heparin 5000 units/ml inj SUBQ SCH (09:39)
[2016-06-07] MEDS: Phenytoin 100mg cap ORAL SCH (09:40)
[2016-06-07] MEDS: Cefepime HCl 1 GM in D5W 55 ML IV SCH (09:41)
[2016-06-07 09:58] LABS: BAND NEUTROPHILS % (MANUAL) 0 % (0-8); BASOPHILS % (MANUAL) 0 % (0-2); EOSINOPHILS % (MANUAL) 3 % (0-3); LYMPHOCYTES % (MANUAL) 64 % (20-45); MACROCYTES 1+; NEUTROPHILS % (MANUAL) 25 % (45-75); PLATELET ESTIMATE ADEQUATE; PLATELET MORPHOLOGY NORMAL; TOTAL CELLS COUNTED 100
[2016-06-07] MEDS: Vancomycin 1gm in D5W 275ml IVPB SCH (10:21)
[2016-06-07 11:46] VITALS: BP 175/96
[2016-06-07 12:30] VITALS: BP 127/56
[2016-06-07 16:00] VITALS: BP 160/98
--- NOTE | 2016-06-07 16:12 | Pulmonology Progress Note ---
Assessment/Plan Problems: (1) Sepsis (2) Sacral decubitus ulcer, stage III (3) Diabetes (4) Dementia (5) G tube feedings Assessment/Plan afebrile wbc wnl improving continue antibiotics check cultures f/u wbc tolerating diet sliding scale wound care site pt will go to [facility] to finish off her antibiotics Subjective ROS Limited/Unobtainable: No Constitutional: Reports: no symptoms HEENT: Repors: no symptoms Respiratory: Reports: no symptoms Genitourinary: Reports: no symptoms Neurologic: Reports: no symptoms Allergies: Coded Allergies: No Known Allergies (Verified , 01/27/10) Objective Last 24 Hour Vital Signs Date Time Temp Pulse Resp B/P Pulse Ox O2 Delivery O2 Flow Rate FiO2 06/07/16 12:30 127/56 06/07/16 11:46 97.5 68 19 175/96 97 Room Air 06/07/16 11:37 178/60 06/07/16 08:13 97.9 67 18 104/64 95 Room Air 06/07/16 07:39 67 20 Room Air 06/07/16 04:00 97.1 70 20 169/169 97 Room Air 06/07/16 00:00 97.5 66 20 157/70 98 Room Air 06/06/16 20:00 97.2 64 18 145/51 98 Room Air 06/06/16 19:47 69 20 Room Air Intake and Output 06/06/16 06/07/16 19:00 07:00 Intake Total 420 ml 200 ml Output Total 300 ml Balance 120 ml 200 ml Intake Free Water 100 ml IV Total 200 ml 50 ml Tube Feeding 120 ml 150 ml Output Urine Total 300 ml # Bowel Movements 3 2 General Appearance: WD/WN HEENT: atraumatic Respiratory/Chest: chest wall non-tender, lungs clear Cardiovascular: normal peripheral pulses, regular rhythm Abdomen: soft, non tender, no organomegaly Laboratory Tests 06/07/16 06:20: White Blood Count 3.4L, Red Blood Count 3.23L, Hemoglobin 10.8L, Hematocrit 32.5L, Mean Corpuscular Volume 100H, Mean Corpuscular Hemoglobin 33.4H, Mean Corpuscular Hemoglobin Concent 33.3, Red Cell Distribution Width 11.4L, Platelet Count 155, Mean Platelet Volume 8.5, Neutrophils (%) (Auto) , Lymphocytes (%) (Auto) , Monocytes (%) (Auto) , Eosinophils (%) (Auto) , Basophils (%) (Auto) , Differential Total Cells Counted 100, Neutrophils % ( Manual) 25L, Lymphocytes % (Manual) 64H, Monocytes % (Manual) 8, Eosinophils % ( Manual) 3, Basophils % (Manual) 0, Band Neutrophils 0, Platelet Estimate Adequate, Platelet Morphology Normal, Macrocytosis 1+, Sodium Level 139, Potassium Level 4.0, Chloride Level 100, Carbon Dioxide Level 25, Anion Gap 14, Blood Urea Nitrogen 17, Creatinine 0.9, Estimat Glomerular Filtration Rate , Glucose Level 100, Calcium Level 8.6, Phosphorus Level 2.9, Magnesium Level 2.0 , Total Bilirubin < 0.2, Aspartate Amino Transf (AST/SGOT) 33, Alanine Aminotransferase (ALT/SGPT) 21, Alkaline Phosphatase 155H, Total Protein 7.4, Albumin 3.3L, Globulin 4.1, Albumin/Globulin Ratio 0.8L, Phenytoin (Dilantin) Level 15.4 Current Medications Medications (Trade) Dose Ordered Sig/Nancy Route PRN Reason Start Time Stop Time Status Last Admin Dose Admin Acetaminophen (Tylenol) 650 mg Q4H PRN ORAL fever 06/05/16 01:30 07/05/16 01:29 Al Hydroxide/Mg Hydroxide (Mylanta II) 30 ml Q6H PRN ORAL dyspepsia 06/05/16 03:30 07/05/16 03:29 Albuterol/ Ipratropium (DuoNeb 0.5-3(2.5)mg/3ml) 3 ml Q4H PRN HHN Shortness of Breath 06/05/16 01:30 06/10/16 01:29 Clonidine HCl (Catapres) 0.1 mg Q6H PRN GT SBP>160 06/05/16 02:00 07/05/16 01:59 06/07/16 11:37 Dextrose (Dextrose 50%) STAT PRN IV Hypoglycemia 06/05/16 21:30 07/05/16 21:29 Heparin Sodium (Porcine) (Heparin 5000 units/ml) 5,000 units EVERY 12 HOURS SUBQ 06/04/16 22:00 07/04/16 21:59 06/07/16 09:39 Insulin Aspart (NovoLOG) Q6HR SUBQ 06/05/16 18:00 3/2/17 17:59 06/07/16 12:05 Levetiracetam 500 mg 500 mg DAILY GT 06/07/16 09:00 07/05/16 08:59 06/07/16 09:40 Nitroglycerin (Ntg) 0.4 mg Q5M PRN SL Prn Chest Pain 06/04/16 22:05 07/04/16 22:04 Ondansetron HCl (Zofran) 4 mg Q6H PRN IVP Nausea & Vomiting 06/05/16 03:30 07/05/16 03:29 Phenytoin (Dilantin) 100 mg DAILY ORAL 06/06/16 09:00 07/06/16 08:59 06/07/16 09:40 Polyethylene Glycol (Miralax) 17 gm DAILYPRN PRN ORAL Constipation 06/05/16 21:30 07/05/16 21:29 Sodium Chloride (0.45% NS 1000ml) 1,000 ml @ 50 mls/hr Q20H IV 06/04/16 22:00 07/04/16 21:59 06/06/16 14:25 Temazepam (Restoril) 15 mg HSPRN PRN ORAL Insomnia 06/05/16 21:30 06/12/16 21:29 Vancomycin HCl (Vanco rx to dose) 1 ea DAILY PRN MISC Per rx protocol 06/04/16 22:15 07/04/16 22:14 Vancomycin HCl/ Dextrose (Vancomycin/D5W) 275 ml @ 183.708 mls/hr Q12HR IVPB 06/06/16 21:00 06/11/16 20:59 06/07/16 10:21 TREY BEE Jun 07, 2016 16:12
--- NOTE | 2016-06-07 17:43 | General Progress Note ---
Progress Note Progress Note Patient seen and examined. doing well. no acute events. wound stable. continue with current wound care and avoid pressure to sacrum. Taco Carter Jun 07, 2016 17:43
[2016-06-07] MEDS ORDERED: Tubing IV Secondary IV ONE ×2 (20:27)
[2016-06-07] MEDS ORDERED: Sterile Water Irrig 1000ml IRRIG ONE (20:27)
[2016-06-07] MEDS ORDERED: 1/2 NS 1000ml IV ONE ×2 (20:27)
[2016-06-07] MEDS ORDERED: NS Irrig 1000ml ONE (20:27)
[2016-06-08 12:34] LABS: OTHERS PATHOLOGIST COMMENT
--- NOTE | 2016-06-08 17:30 | Discharge Summary ---
Discharge Summary Hospital Course Date of Admission Jun 03, 2016 at 21:45 Date of Discharge Jun 07, 2016 at 20:28 Admitting Diagnosis gram positive sepsis HPI Casandra Downing is a 80 year old female who was admitted on Jun 03, 2016 at 21:45 for Gram Positive Sepsis Hospital Course [id number] Discharge Discharge Disposition Patient was discharged to SNF/Subacute Facility(03) Discharge Diagnoses: Alyce Keane NP Jun 08, 2016 17:30
--- NOTE | 2016-06-09 02:08 | Discharge Summary 2 SIG ---
DATE OF ADMISSION: 06/03/2016 DATE OF DISCHARGE: 06/07/2016 CONSULTANTS: 1. Alfonzo Jimenez M.D. 2. Taco Carter M.D. BRIEF HOSPITAL COURSE: The patient is an 80-year-old female with history of diabetes mellitus, CVA, G-tube, bed-bound, and aphasic, brought in from shelter after abnormal laboratories. The patient was in ER recently and was evaluated and was sent back to shelter. Her blood cultures came back positive, therefore, she was called in for hospital admission. She had gram-positive cocci clusters growing in blood culture. On evaluation, she was febrile and septic, and was admitted to telemetry. Dr. Jimenez was consulted. The patient was started on IV vancomycin and cefepime. Dr. Carter was also consulted. The patient came in with a sacral decubitus ulcer and has a 6 x 6 to 8 cm with small peripheral 1 cm new stage II with no drainage, erythema, edema, or fluctuance noted. No sign of active infection. Wound dressing was ordered and advised frequent turning. The patient did not need any surgical debridement at present. Repeat blood culture done did not isolate any growth. Urine culture did not isolate any growth. The patient was sent back to shelter to finish the antibiotics. FINAL DIAGNOSES: 1. Sepsis. 2. Sacral decubitus ulcer stage II, present on admission. 3. Diabetes. 4. Dementia. 5. Dysphagia on gastrostomy tube. 6. Bed-bound/functional quadriplegia. 7. Hypertension. 8. Hypercholesterolemia. 9. Seizure disorder. 10. Aphasia. 11. Dementia. 12. Diabetes mellitus. Saira Lazcano M.D. I have been assigned to dictate discharge summary on this account and I was not involved in the patient's management. Alyce Keane N.P. DR: SUMIT JOB#: [id number] CC:
== END 2016-06-07 20:28 | DRG 871 ==
LOC: ENRESERVTM → ENRESERVDT → ENRESERV → EDBD 20:55 → EMR 21:10 → 2E 21:45 → EDBEDREQ 23:28 → 4E 06-04 21:34
DX: A41.9 Sepsis, unspecified organism (principal); R53.2 Functional quadriplegia; L89.152 Pressure ulcer of sacral region, stage 2; F03.90 Unspecified dementia, unspecified severity, without behavioral disturbance, psychotic disturbance, mood disturbance, and anxiety; E11.9 Type 2 diabetes mellitus without complications; R47.01 Aphasia; Z43.1 Encounter for attention to gastrostomy; I10 Essential (primary) hypertension; Z86.718 Personal history of other venous thrombosis and embolism; I69.30 Unspecified sequelae of cerebral infarction; G40.909 Epilepsy, unspecified, not intractable, without status epilepticus; R13.10 Dysphagia, unspecified; E78.00 Pure hypercholesterolemia, unspecified
CPT/HCPCS: 36415; 36600; 71010; 80053; 80069; 80185; 80202; 80299; 81003; 82164; 82550; 82553; 82803; 82962; 83605; 83735; 83880; 84100; 84484; 85007; 85025; 85610; 85651; 85730; 87040; 87081; 87086; 87181; 93005; 94664; 99283; J1815

== ENCOUNTER 2017-05-16 13:44 | Inpatient (IN) | payer MEDICARE, MEDICAID ==
[~2017-05-16] VITALS: Ht 162.6 cm; Wt 81.2 kg
[~2017-05-16 13:44] MED LIST changes: -HEPARIN SO1000 UNIT3 IJ; +HEPARIN SO1000 UNIT3 SUBQ
[2017-05-16 14:20] VITALS: BP 161/64
[2017-05-16] MEDS ORDERED: Sodium Chloride 500ML 500 ML IV ONE (14:21)
[2017-05-16 15:00] LABS: BASOPHILS % (AUTO) 1.2 % (0.0-2.0); EOSINOPHILS % (AUTO) 0.7 % (0.0-3.0); HEMATOCRIT 35.1 % (37.0-47.0); HEMOGLOBIN 11.1 G/DL (12.0-16.0); MEAN CORPUSCULAR VOLUME 102 FL (80-99); MONOCYTES % (AUTO) 11.5 % (1.0-10.0); NEUTROPHILS % (AUTO) 52.7 % (45.0-75.0); PLATELET COUNT 238 K/UL (150-450); RED BLOOD COUNT 3.46 M/UL (4.20-5.40); RED CELL DISTRIBUTION WIDTH 13.3 % (11.6-14.8); WHITE BLOOD COUNT 6.4 K/UL (4.8-10.8)
--- NOTE | 2017-05-16 15:08 | Diagnostic Imaging Report ---
Indication: Cough Comparison: 06/03/2016 A single view chest radiograph was obtained. Findings: No definite infiltrate or pulmonary vascular congestion identified. The heart is borderline enlarged. The aorta is mildly enlarged consistent with atherosclerotic vascular disease. The bones are osteopenic. Impression: No acute disease
[2017-05-16 15:09] LABS: ANION GAP 10 mmol/L (5-15); BLOOD UREA NITROGEN 42 mg/dL (7-18); CALCIUM 8.7 MG/DL (8.5-10.1); CARBON DIOXIDE 24 MMOL/L (21-32); CHLORIDE 102 MMOL/L (98-107); POTASSIUM 5.9 MMOL/L (3.5-5.1); SODIUM 136 MMOL/L (136-145)
[2017-05-16 15:25] LABS: ALANINE AMINOTRANSFERASE 13 U/L (12-78); ALBUMIN 2.3 G/DL (3.4-5.0); ALBUMIN/GLOBULIN RATIO 0.3 (1.0-2.7); ALKALINE PHOSPHATASE 237 U/L (46-116); ASPARTATE AMINO TRANSFERASE 66 U/L (15-37); BILIRUBIN,TOTAL 0.5 MG/DL (0.2-1.0); CKMB < 0.5 NG/ML (0.0-3.6); CREATINE KINASE 164 U/L (26-308)
--- NOTE | 2017-05-16 15:28 | History & Physical ---
History and Physical History & Physicial cough / resp distress / impaction High K PH DVT DM Sacral Decub OBS functional Quad HTN Sz Plan: Hydrate Kayexelate Venous duplex Pulm eval per orders # [id number] GEORGE MONDRAGON May 16, 2017 15:28
[2017-05-16] MEDS ORDERED: DIGOXIN0.125 MG/2 ORAL (15:41)
[2017-05-16] MEDS ORDERED: ASPIRIN81 MG ORAL (15:41)
[2017-05-16] MEDS ORDERED: ELIQUIS5 MG PO (15:41)
[2017-05-16] MEDS ORDERED: DOCUSATE SODIU100 MG GT (15:45)
[2017-05-16] MEDS ORDERED: Acetaminophen 650mg/20.3ml GT PRN (15:45)
[2017-05-16] MEDS ORDERED: MIRALAX17 G2 GT (15:47)
[2017-05-16] MEDS ORDERED: FLEET ENEMA133 ML RECTAL (15:47)
[2017-05-16] MEDS ORDERED: NITROGLYCERIN0.4 MG SL (15:49)
[2017-05-16] MEDS ORDERED: NORVASC5 MG GT (15:49)
[2017-05-16] MEDS ORDERED: ZANTAC150 MG GT (15:50)
[2017-05-16] MEDS ORDERED: ZOFRAN4 M3 ORAL (15:50)
[2017-05-16] MEDS ORDERED: VITAMIN C500 M1 GT (15:50)
[2017-05-16 16:00] VITALS: BP 153/53
[2017-05-16 16:06] LABS: APPEARANCE,URINE CLEAR; BILIRUBIN, URINE NEGATIVE (NEGATIVE); GLUCOSE, URINE (UA) NEGATIVE (NEGATIVE); KETONES,URINE NEGATIVE (NEGATIVE); LEUKOCYTE ESTERASE ,URINE 1+ (NEGATIVE); NITRITE,URINE NEGATIVE (NEGATIVE); PH,URINE 6 (4.5-8.0); PROTEIN,URINE 4+ (NEGATIVE); UROBILINOGEN,URINE NORMAL MG/DL (0.0-1.0)
[2017-05-16 16:07] LABS: COLOR,URINE YELLOW
[2017-05-16] MEDS ORDERED: cefTRIAXone 1 GM in D5W 55 ML IVPB ONE (16:30)
[2017-05-16 17:00] VITALS: BP 162/72
--- NOTE | 2017-05-16 17:13 | Emergency Room Report ---
History of Present Illness General Chief Complaint: Fever Source: Medical Record Present Illness HPI 81-year-old female presents ED for evaluation of fever residential. Reported fever today. Also noted to have congestion and runny nose. Given Tylenol. Afebrile in triage. Patient is nonverbal at baseline. No signs of distress. Unable to provide any additional history at this time. Has history of sacral decubitus ulcer. No other aggravating relieving factors. No other associated symptoms Allergies: Coded Allergies: No Known Allergies (Verified , 01/27/10) Patient History Past Medical History: DM, HTN Past Surgical History: none Pertinent Family History: none Social History: Denies: smoking, alcohol use, drug use Now: No Immunizations: UTD Reviewed Nursing Documentation: PMH: Agreed, PSxH: Agreed Nursing Documentation-PMH Past Medical History: No History, Except For Hx Cardiac Problems: Yes Hx Hypertension: Yes Hx Pacemaker: No Hx Asthma: No Hx COPD: No Hx Diabetes: Yes Hx Cancer: No Hx Gastrointestinal Problems: Yes - G-tube on upper quadrant Hx Dialysis: No Hx Neurological Problems: Yes Hx Cerebrovascular Accident: Yes Hx Dementia: Yes Hx Seizures: Yes Hx Dysphasia: Yes Review of Systems All Other Systems: negative except mentioned in HPI Physical Exam Vital Signs Date Time Temp Pulse Resp B/P (MAP) Pulse Ox O2 Delivery O2 Flow Rate FiO2 05/16/17 14:02 98.4 84 16 163/80 99 Room Air Sp02 EP Interpretation: reviewed, normal General Appearance: other - nonverbal Head: normocephalic, atraumatic Eyes: bilateral eye normal inspection, bilateral eye PERRL ENT: hearing grossly normal, normal pharynx, no angioedema, normal voice Neck: full range of motion, supple/symm/no masses Respiratory: chest non-tender, lungs clear, normal breath sounds, speaking full sentences Cardiovascular #1: regular rate, rhythm, no edema Cardiovascular #2: 2+ carotid (R), 2+ carotid (L), 2+ radial (R), 2+ radial (L) , 2+ dorsalis pedis (R), 2+ dorsalis pedis (L) Gastrointestinal: normal bowel sounds, non tender, soft, non-distended, no guarding, no rebound Rectal: deferred Genitourinary: normal inspection, no CVA tenderness Musculoskeletal: back normal, gait/station normal, normal range of motion, non- tender Neurologic: other - nonverbal Psychiatric: other - nonverbal Reflexes: 3+ bicep (R), 3+ bicep (L), 3+ tricep (R), 3+ tricep (L), 3+ knee (R) , 3+ knee (L) Skin: normal color, no rash, warm/dry, well hydrated Lymphatic: no adenopathy Medical Decision Making Diagnostic Impression: Primary Impression: UTI (urinary tract infection) Qualified Codes: N39.0 - Urinary tract infection, site not specified Additional Impression: HYPERKALEMIA ER Course Hospital Course 81-year-old female presents ED for evaluation of congestion and fever Differential diagnoses include: Pneumonia, UTI, sepsis, dehydration, ID/ unstable angina Clinical course Patient placed on stretcher. On telemetry monitor with stable vitals are ED course. After initial history and physical, I ordered labs, IV fluids, EKG, chest x-ray, blood cultures, UA. Labs - BUN/Cr ok, K 5.2, no leukocytosis, troponins negative, UA grossly positive for UTI, lactate ok influenza negative EKG - NSR, no acute ischemic changes interpreted by me CXR - no acute process Abx given. Case discussed with Dr Roberto and they agreed to admit patient to their service for further care and support I feel this is a highly complex case requiring extensive working including EKG/ Rhythm strip, Xray/CT/US, Blood/urine lab work, repeat exams while in ED, and administration of strong opiates/narcotics for pain control, admission to hospital or close patient follow up. Diagnosis - UTI, hyperkalemia Patient admitted to floor in serious condition Labs Test 05/16/17 14:35 05/16/17 15:35 White Blood Count 6.4 K/UL (4.8-10.8) Red Blood Count 3.46 M/UL (4.20-5.40) Hemoglobin 11.1 G/DL (12.0-16.0) Hematocrit 35.1 % (37.0-47.0) Mean Corpuscular Volume 102 FL (80-99) Mean Corpuscular Hemoglobin 32.2 PG (27.0-31.0) Mean Corpuscular Hemoglobin Concent 31.7 G/DL (32.0-36.0) Red Cell Distribution Width 13.3 % (11.6-14.8) Platelet Count 238 K/UL (150-450) Mean Platelet Volume 7.2 FL (6.5-10.1) Neutrophils (%) (Auto) 52.7 % (45.0-75.0) Lymphocytes (%) (Auto) 34.0 % (20.0-45.0) Monocytes (%) (Auto) 11.5 % (1.0-10.0) Eosinophils (%) (Auto) 0.7 % (0.0-3.0) Basophils (%) (Auto) 1.2 % (0.0-2.0) Sodium Level 136 MMOL/L (136-145) Potassium Level 5.9 MMOL/L (3.5-5.1) Chloride Level 102 MMOL/L (98-107) Carbon Dioxide Level 24 MMOL/L (21-32) Anion Gap 10 mmol/L (5-15) Blood Urea Nitrogen 42 mg/dL (7-18) Creatinine 1.0 MG/DL (0.55-1.30) Estimat Glomerular Filtration Rate mL/min (>60) Glucose Level 200 MG/DL (74-106) Lactic Acid Level 1.40 mmol/L (0.66-2.22) Calcium Level 8.7 MG/DL (8.5-10.1) Total Bilirubin 0.5 MG/DL (0.2-1.0) Aspartate Amino Transf (AST/SGOT) 66 U/L (15-37) Alanine Aminotransferase (ALT/SGPT) 13 U/L (12-78) Alkaline Phosphatase 237 U/L (46-116) Total Creatine Kinase 164 U/L (26-308) Creatine Kinase MB < 0.5 NG/ML (0.0-3.6) Creatine Kinase MB Relative Index 0.3 Troponin I 0.013 ng/mL (0.000-0.056) Pro-B-Type Natriuretic Peptide 227 pg/mL (0-125) Total Protein 9.6 G/DL (6.4-8.2) Albumin 2.3 G/DL (3.4-5.0) Globulin 7.3 g/dL Albumin/Globulin Ratio 0.3 (1.0-2.7) Urine Color Yellow Urine Appearance Clear Urine pH 6 (4.5-8.0) Urine Specific [place] 1.010 (1.005-1.035) Urine Protein 4+ (NEGATIVE) Urine Glucose (UA) Negative (NEGATIVE) Urine Ketones Negative (NEGATIVE) Urine Occult Blood 1+ (NEGATIVE) Urine Nitrite Negative (NEGATIVE) Urine Bilirubin Negative (NEGATIVE) Urine Urobilinogen Normal MG/DL (0.0-1.0) Urine Leukocyte Esterase 1+ (NEGATIVE) Urine RBC 2-4 /HPF (0 - 2) Urine WBC 5-10 /HPF (0 - 2) Urine Squamous Epithelial Cells Few /LPF (NONE/OCC) Urine Amorphous Sediment Few /LPF (NONE) Urine Bacteria Moderate /HPF (NONE) EKG Diagnostic Results Rate: normal Rhythm: NSR ST Segments: no acute changes ASA given to the pt in ED: No Rhythm Strip Diag. Results EP Interpretation: yes Rhythm: NSR, no PVC's, no ectopy Chest X-Ray Diagnostic Results Chest X-Ray Diagnostic Results : Chest X-Ray Ordered: Yes # of Views/Limited/Complete: 1 View Last Vital Signs Date Time Temp Pulse Resp B/P (MAP) Pulse Ox O2 Delivery O2 Flow Rate FiO2 05/16/17 16:57 91 162/72 05/16/17 16:00 98.9 25 99 Room Air Status: improved Disposition: ADMITTED INPATIENT Condition: Serious Referrals: GEORGE MONDRAGON (PCP) VANGIE KIMBLE M.D. May 16, 2017 17:13
[2017-05-16] MEDS ORDERED: Sodium Polystyrene Sulfonate 15gm Powder GT ONE (17:30)
[2017-05-16] MEDS: Docusate 100mg/10ml Liq GT SCH (19:23)
[2017-05-16] MEDS: Phenytoin Susp 100mg/4ml GT SCH (19:23)
[2017-05-16 20:00] VITALS: BP 178/77
--- NOTE | 2017-05-16 20:15 | History and Physical Report ---
DATE OF ADMISSION: 05/16/2017 HISTORY OF PRESENT ILLNESS: The patient is an 81-year-old patient under the care of Dr. Lazcano who I have been assisting at [facility]. This patient who has last been here in 06/2016 apparently became distressed and the nurses called me at that time, the patient had also fever and the nurses identified the patient to have a fecal impaction. She was given Tylenol and tried to manually disimpact her, but the patient's condition did not improved and was sent to emergency room here for further management. I have seen the patient in the emergency room and at the request of Dr. Lazcano, I am admitting the patient to the floor since the patient is found to have potassium of 5.9 and multiple medical problem. PAST MEDICAL HISTORY: Significant for diabetes mellitus, dementia, GT tube, bed-bound, functional quadriplegia, hypertension, hypercholesterolemia, seizure disorder, aphasia, and dementia. MEDICATIONS: List of medication according to the record. ALLERGIES: The patient does not have any allergies. PHYSICAL EXAMINATION: VITAL SIGNS: She is nonverbal. Blood pressure 163/80, temperature 98.4, pulse rate 84, respiratory rate 16, and pulse oximetry is 99%. HEENT: Face is pale. Sclerae not icteric. NECK: Rigid to all directions. LUNGS: Poor inspiratory effort. Decreased breath sounds over the bases. HEART: Regular. Slightly tachycardic. Occasional irregular beats. ABDOMEN: Slightly distended. GT tube in place. Mild generalized tenderness by way of patient grimacing when touch. EXTREMITIES: Lower extremities trace to 1+ edema. Nontender calves. LABORATORY DATA: White blood cells of 6400 and hemoglobin 11.1. Urinalysis is pending. Chemistry panel; sugar 200, BUN 42, potassium 5.9, and albumin 2.3. IMPRESSION: 1. Cough. 2. Respiratory distress impaction. 3. Hyperkalemia with history of deep vein thrombosis. 4. Diabetes mellitus. Currently, the blood sugar is 200. 5. History of sacral decubitus. 6. Organic brain syndrome. 7. Functional quadriplegia. 8. Hypertension. 9. Seizures. PLAN: 1. Umaña. 2. Waiting for UA and culture. 3. Hydrate Kayexalate. 4. Duplex of the lower extremities. 5. Pulmonary toilet. 6. Dr. Lazcano will assume Pulmonary consult. 7. No antibiotic at this point. 8. Monitor renal parameters. 9. According to how the patient's condition evolves, we will make the proper changes in our future management. Estevan Orozco M.D. DR: VONDA JOB#: [id number] CC:
--- NOTE | 2017-05-16 20:16 | Consultation ---
History of Present Illness General Date patient seen: May 16, 2017 Chief Complaint: Fever and cough hyperkalemia renal failure Referring physician: Dr. Price Reason for Consultation: cough possible aspiration pnuemonia fever Present Illness HPI The patient is an 81-year-old female patient resides at [facility] with pmhx diabetes mellitus, dementia, GT tube, bed-bound, functional quadriplegia, hypertension, hypercholesterolemia, seizure disorder, aphasia, and dementia presents after long-term staff reported elevated temperature and cough. The patient upon evaluation also appears to be hyperkalemic and possible renal failure. I was asked to evaluate the patients respiratory status, initial CXR negative for acute disease though infiltrates may be lagging in the context of severe dehydration, a repeat chest exam will be done and the patient is also under the care of studio model. Aspiration precautions are to be excersised strictly and empiric antibiotics have been initiated for possible nosocomial aquired pneuomia/aspiration pneumonia long-term patient. Allergies: Coded Allergies: No Known Allergies (Verified , 01/27/10) Medication History Scheduled Albuterol Sulfate* (Albuterol Sulfate Hhn*), 2.5 MG HHN Q4HRT Amlodipine Besylate (Norvasc), 5 MG GT DAILY, (Reported) Amlodipine Besylate (Norvasc), 5 MG GT BID Ampicillin Trihydrate (Ampicillin Trihydrate), 500 MG GT EVERY 6 HOURS Apixaban (Eliquis), 5 MG GT BID Ascorbic Acid* (Vitamin C*), 500 MG GT DAILY, (Reported) Ascorbic Acid* (Vitamin C*), 500 MG GT DAILY, (Reported) Bacitracin (Bacitracin), 1 APPLIC TOPIC BID Carvedilol (Coreg), 6.25 MG GT EVERY 12 HOURS Cefdinir (Cefdinir), 300 MG ORAL Q12HR Cranberry (Cranberry), 450 MG GT DAILY, (Reported) Docusate Sodium (Docusate Sodium), 100 MG GT TID Docusate Sodium* (Docusate Sodium*), 100 MG GT TWICE A DAY, (Reported) Docusate Sodium* (Colace*), 100 MG GT TWICE A DAY, (Reported) Doxycycline Hyclate (Doxycycline Hyclate), 100 MG GT EVERY 12 HOURS Enoxaparin* (Lovenox*), 80 MG SUBQ QPM Famotidine (Famotidine), 20 MG GT BID Furosemide* (Lasix*), 20 MG ORAL DAILY Heparin Sodium,Porcine/Pf (Heparin Sod 1,000 Unit/Ml Vial), 5,000 UNITS SUBQ BID , (Reported) Insulin Aspart (Novolog Flexpen), 0 UNITS SUBQ BEFORE MEALS AND HS Insulin Aspart (Novolog Flexpen), 0 UNITS SUBQ EVERY 6 HOURS Levetiracetam (Keppra), 500 MG GT DAILY, (Reported) Levetiracetam (Levetiracetam), 500 MG GT BID Metoclopramide Hcl* (Metoclopramide Hcl*), 5 MG GT EVERY 6 HOURS Multivitamin (Daily Vitamin), 1 TAB GT DAILY, (Reported) Multivitamin With Minerals (Multivitamins With Minerals*), 1 TAB GT DAILY, ( Reported) Omeprazole (Omeprazole), 20 MG GT DAILY, (Reported) Phenytoin (Phenytoin*), 100 MG GT BID Phenytoin Sodium Extended* (Dilantin*), Unknown Dose GT THREE TIMES A DAY, ( Reported) Potassium Chloride (Potassium Chloride), 20 MEQ ORAL DAILY Ranitidine Hcl* (Zantac*), 150 MG GT DAILY, (Reported) Simvastatin (Zocor), 40 MG GT BEDTIME, (Reported) Tramadol Hcl* (Ultram*), 50 MG GT BID, (Reported) Tramadol Hcl* (Ultram*), 25 MG GT Q8HR Warfarin Sod* (Coumadin*), 2.5 MG ORAL COUMADIN Warfarin Sod* (Coumadin*), 5 MG GT DAILY, (Reported) Zinc Sulfate (Zinc Sulfate*), 220 MG GT DAILY, (Reported) Scheduled PRN Acetaminophen (Tylenol 8 Hour), 650 MG GT Q4HR PRN for Mild Pain/Temp > 100.5, ( Reported) Acetaminophen (Acetaminophen), 650 MG GT Q4H PRN Acetaminophen* (Tylenol Extra Strength*), 1,000 MG GT Q4HR PRN for Mild Pain/ Temp > 100.5, (Reported) Acetaminophen* (Acetaminophen 325MG Tablet*), 650 MG GT Q4H PRN for For Pain, ( Reported) Clonidine Hcl* (Catapres*), 0.1 MG GT EVERY 6 HOURS PRN for For High Blood Pressure, (Reported) Diphenhydramine Hcl* (Benadryl*), 25 MG GT Q6H PRN for Itching, (Reported) Magnesium Hydroxide (Milk of Magnesia), 30 ML GT DAILY PRN for Constipation, ( Reported) Na Phos,M-B/Na Phos,Di-Ba* (Fleet Enema*), 133 ML RECTAL DAILY PRN for Constipation, (Reported) Nitroglycerin (Nitroglycerin), 0.4 MG SL EVERY 5 MIN PRN for CHEST PAIN, ( Reported) Ondansetron (Zofran), 4 MG ORAL Q6H PRN for Nausea & Vomiting Ondansetron* (Zofran*), 4 MG ORAL Q6H PRN for Nausea & Vomiting, (Reported) Polyethylene Glycol 3350* (Miralax*), 17 GM GT DAILY PRN for Constipation, ( Reported) [[facility] pharmacy to dose], 1 EA MISC DAILY PRN Miscellaneous Medications [regular insulin], (Reported) Patient History Healthcare decision maker HERBER NAM Resuscitation status Full Code Advanced Directive on File No Past Medical/Surgical History Past Medical/Surgical History: (1) Anemia (2) Proteinuria (3) Healthcare-associated pneumonia (4) OREN (acute kidney injury) (5) Dementia (6) Diabetes (7) Decubital ulcer (8) DVT (deep vein thrombosis) in (9) G tube feedings (10) Dyspnea (11) Sepsis (12) Healthcare-associated pneumonia (13) Pneumonia (14) Sepsis (15) UTI (urinary tract infection) (16) Heel ulcer (17) PEG (percutaneous endoscopic gastrostomy) adjustment/replacement/removal (18) Functional quadriplegia (19) Dehydration (20) Hyperkalemia, diminished renal excretion (21) Fever (22) Dermatitis (23) Sepsis (24) Bronchitis (25) Vomiting (26) Vomiting (27) [id number] (28) Right hemiparesis (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, left, acute (30) Abnormal LFTs (31) Prolonged PTT (32) Malfunction of gastrostomy tube (33) Malfunction of gastrostomy tube (34) Malfunction of gastrostomy tube (35) Malfunction of percutaneous endoscopic gastrostomy (PEG) tube (36) Gastrostomy tube obstruction (37) Sacral decubitus ulcer, stage III (38) Hyponatremia Review of Systems Constitutional: Reports: fever Respiratory: Reports: cough Physical Exam General Appearance: no apparent distress, confused Lines, tubes and drains: peripheral HEENT: normocephalic, atraumatic, anicteric, PERRL Neck: non-tender, normal alignment, supple Respiratory/Chest: chest wall non-tender, rhonchi - bilaterally Breasts: no masses Cardiovascular/Chest: normal peripheral pulses, normal rate, regular rhythm, regularly irregular, no gallop/murmur, no JVD Abdomen: normal bowel sounds, non tender, soft, no organomegaly, no mass, feeding tube Genitourinary/Rectal: normal genital exam, normal rectal exam Extremities: normal range of motion, non-tender, normal inspection, no calf tenderness Skin Exam: normal pigmentation, warm/dry Neurologic: disoriented, unresponsiveness, aphasia Last 24 Hour Vital Signs Date Time Temp Pulse Resp B/P (MAP) Pulse Ox O2 Delivery O2 Flow Rate FiO2 05/16/17 17:30 98.9 91 27 162/72 100 Room Air 05/16/17 17:00 91 27 162/72 100 Room Air 05/16/17 16:57 91 162/72 05/16/17 16:00 98.9 85 25 153/53 99 Room Air 05/16/17 14:20 82 21 161/64 96 Room Air 05/16/17 14:02 98.4 84 16 163/80 99 Room Air Laboratory Tests Test 05/16/17 14:35 05/16/17 15:35 White Blood Count 6.4 K/UL (4.8-10.8) Red Blood Count 3.46 M/UL (4.20-5.40) L Hemoglobin 11.1 G/DL (12.0-16.0) L Hematocrit 35.1 % (37.0-47.0) L Mean Corpuscular Volume 102 FL (80-99) H Mean Corpuscular Hemoglobin 32.2 PG (27.0-31.0) H Mean Corpuscular Hemoglobin Concent 31.7 G/DL (32.0-36.0) L Red Cell Distribution Width 13.3 % (11.6-14.8) Platelet Count 238 K/UL (150-450) Mean Platelet Volume 7.2 FL (6.5-10.1) Neutrophils (%) (Auto) 52.7 % (45.0-75.0) Lymphocytes (%) (Auto) 34.0 % (20.0-45.0) Monocytes (%) (Auto) 11.5 % (1.0-10.0) H Eosinophils (%) (Auto) 0.7 % (0.0-3.0) Basophils (%) (Auto) 1.2 % (0.0-2.0) Sodium Level 136 MMOL/L (136-145) Potassium Level 5.9 MMOL/L (3.5-5.1) H Chloride Level 102 MMOL/L (98-107) Carbon Dioxide Level 24 MMOL/L (21-32) Anion Gap 10 mmol/L (5-15) Blood Urea Nitrogen 42 mg/dL (7-18) H Creatinine 1.0 MG/DL (0.55-1.30) Estimat Glomerular Filtration Rate mL/min (>60) Glucose Level 200 MG/DL (74-106) H Lactic Acid Level 1.40 mmol/L (0.66-2.22) Calcium Level 8.7 MG/DL (8.5-10.1) Total Bilirubin 0.5 MG/DL (0.2-1.0) Aspartate Amino Transf (AST/SGOT) 66 U/L (15-37) H Alanine Aminotransferase (ALT/SGPT) 13 U/L (12-78) Alkaline Phosphatase 237 U/L (46-116) H Total Creatine Kinase 164 U/L (26-308) Creatine Kinase MB < 0.5 NG/ML (0.0-3.6) Creatine Kinase MB Relative Index 0.3 Troponin I 0.013 ng/mL (0.000-0.056) Pro-B-Type Natriuretic Peptide 227 pg/mL (0-125) H Total Protein 9.6 G/DL (6.4-8.2) H Albumin 2.3 G/DL (3.4-5.0) L Globulin 7.3 g/dL Albumin/Globulin Ratio 0.3 (1.0-2.7) L Urine Color Yellow Urine Appearance Clear Urine pH 6 (4.5-8.0) Urine Specific [place] 1.010 (1.005-1.035) Urine Protein 4+ (NEGATIVE) H Urine Glucose (UA) Negative (NEGATIVE) Urine Ketones Negative (NEGATIVE) Urine Occult Blood 1+ (NEGATIVE) H Urine Nitrite Negative (NEGATIVE) Urine Bilirubin Negative (NEGATIVE) Urine Urobilinogen Normal MG/DL (0.0-1.0) Urine Leukocyte Esterase 1+ (NEGATIVE) H Urine RBC 2-4 /HPF (0 - 2) H Urine WBC 5-10 /HPF (0 - 2) H Urine Squamous Epithelial Cells Few /LPF (NONE/OCC) Urine Amorphous Sediment Few /LPF (NONE) H Urine Bacteria Moderate /HPF (NONE) H Microbiology Date/Time Source Procedure Growth Status 05/16/17 14:35 Nasal Nares Influenza Types A,B Antigen (YANA) - Final Complete Height (Feet): 5 Height (Inches): 4.00 Weight (Pounds): 179 Medications Current Medications Medications (Trade) Dose Ordered Sig/Nancy Route PRN Reason Start Time Stop Time Status Last Admin Dose Admin Acetaminophen (Tylenol) 650 mg Q4H PRN GT Mild Pain/Temp > 100.5 05/16/17 15:45 06/15/17 15:44 Clonidine HCl (Catapres Tab) 0.1 mg EVERY 6 HOURS PRN GT For High BP 160 syst & over 05/16/17 15:45 06/15/17 15:44 Docusate Sodium (Colace) 100 mg TID GT 05/16/17 18:00 06/15/17 17:59 05/16/17 19:23 Famotidine (Pepcid I.v.) 20 mg Q12HR IVP 05/16/17 21:00 06/15/17 20:59 Heparin Sodium (Porcine) (Heparin 5000 units/ml) 5,000 units EVERY 8 HOURS SUBQ 05/16/17 22:00 06/15/17 21:59 Levetiracetam (Keppra) 500 mg BID GT 05/16/17 18:00 06/15/17 17:59 05/16/17 19:23 Metoclopramide HCl (Reglan) 5 mg EVERY 6 HOURS GT 05/16/17 18:00 06/15/17 17:59 05/16/17 18:00 Phenytoin (Dilantin) 100 mg BID GT 05/16/17 18:00 06/15/17 17:59 05/16/17 19:23 Assessment/Plan Status: stable, progressing Assessment/Plan Sepsis Aspiration pnuemonia? Acute bronchitis Decubital ulcer Diabetes G tube feedings Dementia PLAN Aspiration precautions Check cultures Empiric antbx nosocomial aquired pnuemonia / aspiration pnuemonia. surgical evaluation for decubiti ulcer Toleraing feeding monitor gastric residuals Gtube site unremarkable Coumadin by pharmacy TREY BEE May 16, 2017 20:16
[2017-05-16] MEDS: Heparin 5000 units/ml inj SUBQ SCH (21:24)
[2017-05-17] VITALS: BP 152/81
[2017-05-17 04:00] VITALS: BP 147/85
[2017-05-17] MEDS: Heparin 5000 units/ml inj SUBQ SCH ×2 (06:03→14:23)
[2017-05-17 06:22] LABS: BASOPHILS % (AUTO) 0.6 % (0.0-2.0); EOSINOPHILS % (AUTO) 1.1 % (0.0-3.0); HEMATOCRIT 30.5 % (37.0-47.0); HEMOGLOBIN 10.3 G/DL (12.0-16.0); LYMPHOCYTES % (AUTO) 44.9 % (20.0-45.0); MEAN CORPUSCULAR VOLUME 101 FL (80-99); MONOCYTES % (AUTO) 10.8 % (1.0-10.0); NEUTROPHILS % (AUTO) 42.6 % (45.0-75.0); PLATELET COUNT 210 K/UL (150-450); RED BLOOD COUNT 3.01 M/UL (4.20-5.40); RED CELL DISTRIBUTION WIDTH 13.2 % (11.6-14.8); WHITE BLOOD COUNT 6.9 K/UL (4.8-10.8)
[2017-05-17 06:42] LABS: CREATINE KINASE 79 U/L (26-308); GAMMA GLUTAMYL TRANSPEPTIDASE 690 U/L (5-85); PHOSPHORUS 4.1 MG/DL (2.5-4.9)
[2017-05-17 06:44] LABS: ALANINE AMINOTRANSFERASE 15 U/L (12-78); ALBUMIN 2.3 G/DL (3.4-5.0); ALBUMIN/GLOBULIN RATIO 0.4 (1.0-2.7); ALKALINE PHOSPHATASE 213 U/L (46-116); ANION GAP 11 mmol/L (5-15); ASPARTATE AMINO TRANSFERASE 23 U/L (15-37); BILIRUBIN,TOTAL 0.2 MG/DL (0.2-1.0); BLOOD UREA NITROGEN 33 mg/dL (7-18); CALCIUM 8.3 MG/DL (8.5-10.1); CARBON DIOXIDE 27 MMOL/L (21-32); CHLORIDE 104 MMOL/L (98-107); CHOLESTEROL 147 MG/DL (< 200); FERRITIN 228 NG/ML (8-388); HDL CHOLESTEROL 48 MG/DL (40-60); POTASSIUM 3.7 MMOL/L (3.5-5.1); SODIUM 141 MMOL/L (136-145); TRIGLYCERIDES 179 MG/DL (30-150)
[2017-05-17 07:33] LABS: % IRON SATURATION 18 % (15-50); IRON 36 ug/dL (50-175); TOTAL IRON BINDING CAPACITY 199 ug/dL (250-450)
[2017-05-17 08:00] VITALS: BP 163/70
[2017-05-17] MEDS: Phenytoin Susp 100mg/4ml GT SCH ×2 (10:45→18:40)
[2017-05-17] MEDS: Docusate 100mg/10ml Liq GT SCH ×3 (10:45→18:40)
[2017-05-17 12:01] VITALS: BP 146/75
--- NOTE | 2017-05-17 13:23 | Cardiology Report ---
APPROVED REPORT EKG Measurement Heart [id number] Normal sinus rhythm Voltage criteria for left ventricular hypertrophy Abnormal ECG
--- NOTE | 2017-05-17 13:50 | Wound Care Consultation ---
Wound Assessment Wound Assessment #1: Wound Number: 1 Wound Present on Admission: Yes New Wound: No Status Change of Wound: No Wound Location Body Site Modif: mid Wound Location Body Site: sacral Wound Type: pressure ulcer Radha Test: Does not Radha Pressure Ulcer Stage: Unstageable Wound Thickness: Full Thickness Wound Length: 1.5 Wound Width: 2.0 Wound Depth: utd Percent of Wound Bed Yellow/Wh: 100 Wound Drainage Amount: None Wound Drainage Odor: None/Absent Tissue Surrounding Wound: extensive full thickness scar tissue Wound Assessment #2: Wound Number: 2 Wound Present on Admission: Yes New Wound: No Status Change of Wound: No Wound Location Body Site Modif: left Wound Location Body Site: heel Wound Type: pressure ulcer Radha Test: Does not Radha Pressure Ulcer Stage: III Wound Thickness: Full Thickness Wound Length: 7.5 Wound Width: 7.5 Wound Depth: 0.1 Percent of Wound [place]/Red: 100 Wound Drainage Description: Serosanguineous Wound Drainage Amount: Moderate Wound Drainage Odor: None/Absent Tissue Surrounding Wound: Macerated Wound General Appearance: Reddened, Draining Wound Assessment #3: Wound Number: 3 Wound Present on Admission: Yes New Wound: No Status Change of Wound: No Wound Location Body Site Modif: left, lateral Wound Location Body Site: metatarsal head - 5th Wound Type: pressure ulcer Radha Test: Does not Radha Pressure Ulcer Stage: Deep Tissue Injury Wound Thickness: Full Thickness Wound Length: 2.0 Wound Width: 2.0 Wound Depth: utd Percent of Wound Purple/Maroon: 100 Wound Drainage Amount: None Wound Drainage Odor: None/Absent Tissue Surrounding Wound: Intact Wound General Appearance: Reddened - maroon Wound Comment #1 Sacral unstageable pressure ulcer. Wound bed with yellow dry scab. Surrounding skin with full thickness scar tissue #2 Left heel stage III pressure ulcer #3 Left lateral 5th metatarsal head DTI pressure ulcer Recommendation -Local wound care per protocol -Keep clean and dry -Offload both heels -Heel protector on both heels -Optimize nutrition -Low air loss mattress -Turn and reposition -Assess and f/u accordingly for any changes ROJAS HANSEN RN May 17, 2017 13:50
--- NOTE | 2017-05-17 14:15 | Infectious Diseases Prog Note ---
Assessment/Plan Problems: (1) Heel ulcer Assessment & Plan: on the left heel , rule out underlying osteomyelitis, will order X ray of the left heel , and check ESR, CRP , start vancomycin with cefepime empiric coverage , continue local wound care (2) Sacral decubitus ulcer, stage III Assessment & Plan: will send wound culture and start vancomycin with cefepime empiric coverage , keep off loading and local wound care (3) UTI (urinary tract infection) Assessment & Plan: will start cefepime empirically, pending urine culture results (4) Sepsis Assessment & Plan: due to the above , will send blood culture and start vancomycin with cefepime empirically (5) Fever Assessment & Plan: due to the above, will send blood culture to rule out bacteremia and start vancomycin with cefepime empirically Subjective Allergies: Coded Allergies: No Known Allergies (Verified , 01/27/10) Objective Vital Signs Last 24 Hour Vital Signs Date Time Temp Pulse Resp B/P (MAP) Pulse Ox O2 Delivery O2 Flow Rate FiO2 05/17/17 12:01 97.2 79 20 146/75 96 Room Air 05/17/17 08:00 98.2 80 20 163/70 97 05/17/17 04:00 98.9 88 20 147/85 95 Room Air 93 05/17/17 00:00 98.7 91 20 152/81 100 Room Air 91 05/16/17 20:00 Room Air 05/16/17 20:00 98.9 94 19 178/77 100 94 05/16/17 17:30 98.9 91 27 162/72 100 Room Air 05/16/17 17:00 91 27 162/72 100 Room Air 05/16/17 16:57 91 162/72 05/16/17 16:00 98.9 85 25 153/53 99 Room Air 05/16/17 14:20 82 21 161/64 96 Room Air Height (Feet): 5 Height (Inches): 4.00 Weight (Pounds): 179 Microbiology Date/Time Source Procedure Growth Status 05/16/17 14:35 Nasal Nares Influenza Types A,B Antigen (YANA) - Final Complete 05/16/17 15:35 Indwelling Cath Urine Culture - Preliminary NO GROWTH Resulted Laboratory Tests Test 05/16/17 14:35 05/16/17 15:35 05/17/17 03:45 White Blood Count 6.4 K/UL (4.8-10.8) 6.9 K/UL (4.8-10.8) Red Blood Count 3.46 M/UL (4.20-5.40) L 3.01 M/UL (4.20-5.40) L Hemoglobin 11.1 G/DL (12.0-16.0) L 10.3 G/DL (12.0-16.0) L Hematocrit 35.1 % (37.0-47.0) L 30.5 % (37.0-47.0) L Mean Corpuscular Volume 102 FL (80-99) H 101 FL (80-99) H Mean Corpuscular Hemoglobin 32.2 PG (27.0-31.0) H 34.2 PG (27.0-31.0) H Mean Corpuscular Hemoglobin Concent 31.7 G/DL (32.0-36.0) L 33.8 G/DL (32.0-36.0) Red Cell Distribution Width 13.3 % (11.6-14.8) 13.2 % (11.6-14.8) Platelet Count 238 K/UL (150-450) 210 K/UL (150-450) Mean Platelet Volume 7.2 FL (6.5-10.1) 7.3 FL (6.5-10.1) Neutrophils (%) (Auto) 52.7 % (45.0-75.0) 42.6 % (45.0-75.0) L Lymphocytes (%) (Auto) 34.0 % (20.0-45.0) 44.9 % (20.0-45.0) Monocytes (%) (Auto) 11.5 % (1.0-10.0) H 10.8 % (1.0-10.0) H Eosinophils (%) (Auto) 0.7 % (0.0-3.0) 1.1 % (0.0-3.0) Basophils (%) (Auto) 1.2 % (0.0-2.0) 0.6 % (0.0-2.0) Sodium Level 136 MMOL/L (136-145) 141 MMOL/L (136-145) Potassium Level 5.9 MMOL/L (3.5-5.1) H 3.7 MMOL/L (3.5-5.1) Chloride Level 102 MMOL/L (98-107) 104 MMOL/L (98-107) Carbon Dioxide Level 24 MMOL/L (21-32) 27 MMOL/L (21-32) Anion Gap 10 mmol/L (5-15) 11 mmol/L (5-15) Blood Urea Nitrogen 42 mg/dL (7-18) H 33 mg/dL (7-18) H Creatinine 1.0 MG/DL (0.55-1.30) 1.0 MG/DL (0.55-1.30) Estimat Glomerular Filtration Rate mL/min (>60) mL/min (>60) Glucose Level 200 MG/DL (74-106) H 139 MG/DL (74-106) H Lactic Acid Level 1.40 mmol/L (0.66-2.22) Calcium Level 8.7 MG/DL (8.5-10.1) 8.3 MG/DL (8.5-10.1) L Total Bilirubin 0.5 MG/DL (0.2-1.0) 0.2 MG/DL (0.2-1.0) Aspartate Amino Transf (AST/SGOT) 66 U/L (15-37) H 23 U/L (15-37) Alanine Aminotransferase (ALT/SGPT) 13 U/L (12-78) 15 U/L (12-78) Alkaline Phosphatase 237 U/L (46-116) H 213 U/L (46-116) H Total Creatine Kinase 164 U/L (26-308) 79 U/L (26-308) Creatine Kinase MB < 0.5 NG/ML (0.0-3.6) Creatine Kinase MB Relative Index 0.3 Troponin I 0.013 ng/mL (0.000-0.056) 0.025 ng/mL (0.000-0.056) Pro-B-Type Natriuretic Peptide 227 pg/mL (0-125) H 226 pg/mL (0-125) H Total Protein 9.6 G/DL (6.4-8.2) H 8.7 G/DL (6.4-8.2) H Albumin 2.3 G/DL (3.4-5.0) L 2.3 G/DL (3.4-5.0) L Globulin 7.3 g/dL 6.4 g/dL Albumin/Globulin Ratio 0.3 (1.0-2.7) L 0.4 (1.0-2.7) L Urine Color Yellow Urine Appearance Clear Urine pH 6 (4.5-8.0) Urine Specific [place] 1.010 (1.005-1.035) Urine Protein 4+ (NEGATIVE) H Urine Glucose (UA) Negative (NEGATIVE) Urine Ketones Negative (NEGATIVE) Urine Occult Blood 1+ (NEGATIVE) H Urine Nitrite Negative (NEGATIVE) Urine Bilirubin Negative (NEGATIVE) Urine Urobilinogen Normal MG/DL (0.0-1.0) Urine Leukocyte Esterase 1+ (NEGATIVE) H Urine RBC 2-4 /HPF (0 - 2) H Urine WBC 5-10 /HPF (0 - 2) H Urine Squamous Epithelial Cells Few /LPF (NONE/OCC) Urine Amorphous Sediment Few /LPF (NONE) H Urine Bacteria Moderate /HPF (NONE) H Hemoglobin A1c 7.1 % (4.3-6.0) H Uric Acid 6.5 MG/DL (2.6-7.2) Phosphorus Level 4.1 MG/DL (2.5-4.9) Magnesium Level 1.9 MG/DL (1.8-2.4) Iron Level 36 ug/dL (50-175) L Total Iron Binding Capacity 199 ug/dL (250-450) L Percent Iron Saturation 18 % (15-50) Unsaturated Iron Binding 163 ug/dL (112-346) Ferritin 228 NG/ML (8-388) Gamma Glutamyl Transpeptidase 690 U/L (5-85) H C-Reactive Protein, Quantitative 12.3 mg/dL (0.00-0.90) H Triglycerides Level 179 MG/DL (30-150) H Cholesterol Level 147 MG/DL (< 200) LDL Cholesterol 79 mg/dL (<100) HDL Cholesterol 48 MG/DL (40-60) Cholesterol/HDL Ratio 3.1 (3.3-4.4) L Vitamin B12 Level 919 PG/ML (193-986) Folate 20.0 NG/ML (8.6-58.9) Thyroid Stimulating Hormone (TSH) 1.003 uiU/mL (0.358-3.740) Phenytoin (Dilantin) Level 10.5 ug/mL (10-20) Current Medications Medications (Trade) Dose Ordered Sig/Nancy Route PRN Reason Start Time Stop Time Status Last Admin Dose Admin Acetaminophen (Tylenol) 650 mg Q4H PRN GT Mild Pain/Temp > 100.5 05/16/17 15:45 06/15/17 15:44 Clonidine HCl (Catapres Tab) 0.1 mg EVERY 6 HOURS PRN GT For High BP 160 syst & over 05/16/17 15:45 06/15/17 15:44 Docusate Sodium (Colace) 100 mg TID GT 05/16/17 18:00 06/15/17 17:59 05/17/17 10:45 Famotidine (Pepcid I.v.) 20 mg Q12HR IVP 05/16/17 21:00 06/15/17 20:59 05/17/17 10:52 Heparin Sodium (Porcine) (Heparin 5000 units/ml) 5,000 units EVERY 8 HOURS SUBQ 05/16/17 22:00 06/15/17 21:59 05/17/17 06:03 Levetiracetam (Keppra) 500 mg BID GT 05/16/17 18:00 06/15/17 17:59 05/17/17 10:45 Metoclopramide HCl (Reglan) 5 mg EVERY 6 HOURS GT 05/16/17 18:00 06/15/17 17:59 05/17/17 12:22 Phenytoin (Dilantin) 100 mg BID GT 05/16/17 18:00 06/15/17 17:59 05/17/17 10:45 Ayala Forman M.D. May 17, 2017 14:15
[2017-05-17 16:00] VITALS: BP 154/64
--- NOTE | 2017-05-17 17:08 | General Progress Note ---
Assessment/Plan Status: stable Status Narrative - Cough. Respiratory distress . impaction. - Hyperkalemia - history of deep vein thrombosis. - Diabetes mellitus. High A1c - Organic brain syndrome. - Functional quadriplegia. - Hypertension. - Seizures. - Anemia ID isuues: (1) Heel ulcer (2) Sacral decubitus ulcer, stage III (3) UTI (urinary tract infection) (4) Sepsis (5) Fever Assessment/Plan antibiotics per Dr Forman IV Iron Monitor BS Laxatives antiSz meds per orders Subjective ROS Limited/Unobtainable: No Constitutional: Reports: malaise, other - nonverbal Allergies: Coded Allergies: No Known Allergies (Verified , 01/27/10) Objective Last 24 Hour Vital Signs Date Time Temp Pulse Resp B/P (MAP) Pulse Ox O2 Delivery O2 Flow Rate FiO2 05/17/17 16:00 98.2 75 20 154/64 94 05/17/17 12:01 97.2 79 20 146/75 96 Room Air 05/17/17 08:00 98.2 80 20 163/70 97 05/17/17 04:00 98.9 88 20 147/85 95 Room Air 93 05/17/17 00:00 98.7 91 20 152/81 100 Room Air 91 05/16/17 20:00 Room Air 05/16/17 20:00 98.9 94 19 178/77 100 94 05/16/17 17:30 98.9 91 27 162/72 100 Room Air Intake and Output 05/16/17 05/17/17 19:00 07:00 Intake Total 0 ml 60 ml Output Total 750 ml Balance 0 ml -690 ml Intake Oral 0 ml 60 ml Output Urine Total 750 ml # Bowel Movements 1 Laboratory Tests 05/17/17 03:45: White Blood Count 6.9, Red Blood Count 3.01L, Hemoglobin 10.3L, Hematocrit 30.5L , Mean Corpuscular Volume 101H, Mean Corpuscular Hemoglobin 34.2H, Mean Corpuscular Hemoglobin Concent 33.8, Red Cell Distribution Width 13.2, Platelet Count 210, Mean Platelet Volume 7.3, Neutrophils (%) (Auto) 42.6L, Lymphocytes ( %) (Auto) 44.9, Monocytes (%) (Auto) 10.8H, Eosinophils (%) (Auto) 1.1, Basophils (%) (Auto) 0.6, Erythrocyte Sedimentation Rate 81H, Sodium Level 141, Potassium Level 3.7, Chloride Level 104, Carbon Dioxide Level 27, Anion Gap 11, Blood Urea Nitrogen 33H, Creatinine 1.0, Estimat Glomerular Filtration Rate , Glucose Level 139H, Hemoglobin A1c 7.1H, Uric Acid 6.5, Calcium Level 8.3L, Phosphorus Level 4.1, Magnesium Level 1.9, Iron Level 36L, Total Iron Binding Capacity 199L, Percent Iron Saturation 18, Unsaturated Iron Binding 163, Ferritin 228, Total Bilirubin 0.2, Gamma Glutamyl Transpeptidase 690H, Aspartate Amino Transf (AST/SGOT) 23, Alanine Aminotransferase (ALT/SGPT) 15, Alkaline Phosphatase 213H, Total Creatine Kinase 79, Troponin I 0.025, C- Reactive Protein, Quantitative 12.3H, Pro-B-Type Natriuretic Peptide 226H, Total Protein 8.7H, Albumin 2.3L, Globulin 6.4, Albumin/Globulin Ratio 0.4L, Triglycerides Level 179H, Cholesterol Level 147, LDL Cholesterol 79, HDL Cholesterol 48, Cholesterol/HDL Ratio 3.1L, Vitamin B12 Level 919, Folate 20.0, Thyroid Stimulating Hormone (TSH) 1.003, Phenytoin (Dilantin) Level 10.5 Height (Feet): 5 Height (Inches): 4.00 Weight (Pounds): 179 General Appearance: no apparent distress, lethargic Cardiovascular: normal rate Respiratory/Chest: decreased breath sounds Abdomen: soft Extremities: other - per pictures Objective no other changes GEORGE MONDRAGON May 17, 2017 17:08
[2017-05-17] MEDS: Cefepime HCl 2 GM in D5W 55 ML IVPB SCH (17:51)
[2017-05-17] MEDS: Vancomycin 1gm in D5W 275ml IVPB SCH ×2 (18:23→22:07)
[2017-05-17] MEDS ORDERED: Enoxaparin 80mg Inj SUBQ ONE (19:00)
--- NOTE | 2017-05-17 19:00 | Diagnostic Imaging Report ---
Indication: Heel ulcer Technique: XRAY Heel Min 2v L Comparison: None Findings: The bones are diffusely demineralized. There is no acute fracture or dislocation. There is abnormal sclerosis and indistinctness of the cortex of the calcaneus underlying the soft tissue ulcer. Osteomyelitis of uncertain chronicity cannot be excluded. Atherosclerotic vascular calcifications noted. Impression: Abnormal sclerosis and indistinctness of the cortex underlying the large heel ulcer. Osteomyelitis not excluded. Consider further evaluation with MRI.
[2017-05-17 20:00] VITALS: BP 149/93
[2017-05-17] MEDS ORDERED: Iron Sucrose 200 MG in NS 110 ML IV ONE (20:00)
[2017-05-17] MEDS ORDERED: Warfarin Sodium 5mg ORAL ONE (22:30)
--- NOTE | 2017-05-17 22:30 | Consultation ---
DATE OF CONSULTATION: 05/17/2017 INFECTIOUS DISEASES CONSULTATION CONSULTING PHYSICIAN: Ayala Forman M.D. REQUESTING PHYSICIAN: Estevan Orozco M.D. REASON FOR CONSULTATION: Fever, urine infection, and decubitus wounds, recommendation for antibiotics treatment and further management. HISTORY OF PRESENT ILLNESS: The patient is an 81-year-old female with past medical history of diabetes, hypertension, and possible dementia, [facility] emergency room for fever with congestion and runny nose. The patient was given Tylenol and her fever improved. She had no sign of distress in the emergency room, but she is a poor historian, could not provide any history. History was mainly obtained from the medical record. Upon exam, she had sacral decubitus wound and left heel wound also. Urinalysis showed evidence of infection, so she was given ceftriaxone and I was consulted by the primary provider for antibiotics treatment and further management. PAST MEDICAL HISTORY: Significant for diabetes mellitus, hypertension, coronary artery disease, GERD, CVA, seizure, and dementia. PAST SURGICAL HISTORY: Not on record. ALLERGIES: No known drug allergy. MEDICATIONS: She received ceftriaxone in the emergency room. For the rest of her medications, please refer to MAR. SOCIAL HISTORY: She is a [place]iary resident. No recent drugs, tobacco, or alcohol. FAMILY HISTORY: Unable to obtain. REVIEW OF SYSTEMS: A 14-point of systems reviewed were all negative apart from the one I mentioned above in my History and Physical. PHYSICAL EXAMINATION: VITAL SIGNS: Temperature 97.2, pulse 79, respirations 20, blood pressure 146/75, and saturation 96% on room air. GENERAL: An elderly female, lying in bed, unresponsive, snoring, not in acute distress. Does not follow commands. HEENT: Normocephalic and atraumatic. Unable to examine pupils. The patient refused to open her eyes. Dry oral mucosa. No exudate or ulceration. NECK: Supple. No lymphadenopathy. CARDIOVASCULAR: Regular rate and rhythm. No murmur or gallop. LUNGS: Clear bilaterally. No wheezing or rhonchi. Diminished breathing sounds at the bases. ABDOMEN: Soft, obese, nontender, and nondistended. Positive bowel sounds. No hepatosplenomegaly. No ascites. EXTREMITIES: She had left heel pressure wound, stage II with redness and erythema surrounding and she had also stasis dermatitis on both lower extremity. No edema or cyanosis. SKIN: She had sacral decubitus wound stage 2 to 3 with yellowish exudate and red borders. No significant drainage or foul smelling. LABORATORY AND DIAGNOSTIC DATA: Labs showed white count of 6.9, hemoglobin of 10.3, and platelet count of 210,000. BUN of 33 and creatinine of 1. Hemoglobin A1c of 7.1. AST of 23 and ALT of 15. Urinalysis showed +1 leukocyte esterase, 5 to 10 WBCs, and moderate amount of bacteria. Microbiology, influenza screening A and B both were negative. Urine culture so far pending. Imaging, chest x-ray on admission showed no definite infiltrate or pulmonary vascular congestion identified. ASSESSMENT AND RECOMMENDATIONS: 1. Heel ulcer on the left, rule out underlying osteo. We will order x-ray of the left heel. We will check sedimentation rate, C-reactive protein, and start vancomycin and cefepime empiric coverage. Continue local wound care. 2. Sacral decubitus ulcer, stage III. We will send wound culture and start vancomycin and cefepime empiric coverage to keep offloading and continue local wound care. 3. Urinary tract infection. We will start cefepime empirically. Pending urine culture results. 4. Sepsis due to the above. We will send blood culture and start vancomycin and cefepime empiric coverage. 5. Fever due to the above. We will send blood culture to rule out bacteremia and start vancomycin and cefepime empiric coverage. Thank you for the consult. Infectious Disease will continue to follow. Ayala Forman M.D. DR: TRESSA JOB#: [id number] CC:
[2017-05-18] VITALS: BP 173/80
[2017-05-18 04:00] VITALS: BP 143/57
[2017-05-18 07:47] LABS: INR 1.1 (0.9-1.1)
[2017-05-18 08:52] VITALS: BP 161/91
[2017-05-18] MEDS: Cefepime HCl 2 GM in D5W 55 ML IVPB SCH (09:08)
[2017-05-18] MEDS: Phenytoin Susp 100mg/4ml GT SCH ×2 (09:08→18:54)
[2017-05-18] MEDS: Docusate 100mg/10ml Liq GT SCH ×3 (09:08→18:54)
--- NOTE | 2017-05-18 10:12 | General Progress Note ---
Assessment/Plan Status: stable Status Narrative - Cough. Respiratory distress . impaction. - Hyperkalemia - deep vein thrombosis. - Diabetes mellitus. High A1c - Organic brain syndrome. - Functional quadriplegia. - Hypertension. - Seizures. - Anemia ID isuues: (1) Heel ulcer (2) Sacral decubitus ulcer, stage III (3) UTI (urinary tract infection) (4) Sepsis (5) Fever Assessment/Plan Plan: antibiotics per Dr Forman IV Iron coumadin pharmacy Monitor BS Laxatives antiSz meds per orders Subjective ROS Limited/Unobtainable: No Constitutional: Reports: malaise, weakness Allergies: Coded Allergies: No Known Allergies (Verified , 01/27/10) Objective Last 24 Hour Vital Signs Date Time Temp Pulse Resp B/P (MAP) Pulse Ox O2 Delivery O2 Flow Rate FiO2 05/18/17 09:26 Room Air 05/18/17 08:52 98.6 75 21 161/91 95 05/18/17 04:00 98.2 67 18 143/57 92 Room Air 05/18/17 01:50 169/77 05/18/17 00:00 97.9 87 20 173/80 97 Room Air 05/17/17 20:00 98.2 69 20 149/93 92 Room Air 05/17/17 16:00 Room Air 05/17/17 16:00 98.2 75 20 154/64 94 05/17/17 12:01 97.2 79 20 146/75 96 Room Air Intake and Output 05/17/17 05/18/17 19:00 07:00 Intake Total 715 ml 805 ml Output Total 275 ml 1200 ml Balance 440 ml -395 ml Free Water 90 ml Tube Feeding 715 ml 715 ml Output Urine Total 275 ml 1200 ml # Bowel Movements 1 Laboratory Tests 05/17/17 20:15: Prothrombin Time 10.6, Prothromb Time International Ratio 1.0 05/18/17 05:25: Prothrombin Time 11.3, Prothromb Time International Ratio 1.1, Activated Partial Thromboplast Time 36H Height (Feet): 5 Height (Inches): 4.00 Weight (Pounds): 179 General Appearance: no apparent distress Neck: limited range of motion Cardiovascular: normal rate Respiratory/Chest: decreased breath sounds Abdomen: other - PEG Extremities: other - swelling LE Edema: 1+ Arm (L), 1+ Arm (R), 1+ Leg (L), 1+ Leg (R), 1+ Pedal (L), 1+ Pedal ( R), 1+ Generalized Objective no other changes GEORGE MONDRAGON May 18, 2017 10:12
[2017-05-18 11:55] VITALS: BP 159/68
[2017-05-18] MEDS: NovoLOG Insulin Flexpen SUBQ SCH ×2 (13:32→18:48)
--- NOTE | 2017-05-18 14:27 | Infectious Diseases Prog Note ---
Assessment/Plan Problems: (1) Heel ulcer Assessment & Plan: on the left heel , possible underlying osteomyelitis, with elevated ESR and X ray result of the left heel , continue vancomycin with cefepime empiric coverage , and local wound care . will order MRI of the left heel to confirm , await wound culture (2) Sacral decubitus ulcer, stage III Assessment & Plan: keep off loading and continue local wound care (3) UTI (urinary tract infection) Assessment & Plan: on cefepime empirically, pending urine culture results (4) Sepsis Assessment & Plan: due to the above , await blood culture and continue vancomycin with cefepime empirically (5) Fever Assessment & Plan: due to the above, await blood culture to rule out bacteremia and continue vancomycin with cefepime empirically Subjective ROS Limited/Unobtainable: Yes Allergies: Coded Allergies: No Known Allergies (Verified , 01/27/10) Subjective she was comfortable , lying in bed, alert, nonverbal, not in distress, afebrile Objective Vital Signs Last 24 Hour Vital Signs Date Time Temp Pulse Resp B/P (MAP) Pulse Ox O2 Delivery O2 Flow Rate FiO2 05/18/17 13:48 Room Air 05/18/17 11:55 98.4 71 20 159/68 92 05/18/17 11:40 71 159/68 05/18/17 09:26 Room Air 05/18/17 08:52 98.6 75 21 161/91 95 05/18/17 04:00 98.2 67 18 143/57 92 Room Air 05/18/17 01:50 169/77 05/18/17 00:00 97.9 87 20 173/80 97 Room Air 05/17/17 20:00 98.2 69 20 149/93 92 Room Air 05/17/17 16:00 Room Air 05/17/17 16:00 98.2 75 20 154/64 94 Height (Feet): 5 Height (Inches): 4.00 Weight (Pounds): 179 General Appearance: WD/WN, no acute distress HEENT: normocephalic, atraumatic, anicteric, mucous membranes moist, PERRL Respiratory/Chest: chest wall non-tender, normal breath sounds, no respiratory distress, no accessory muscle use, decreased breath sounds Cardiovascular: normal peripheral pulses, normal rate, regular rhythm, no gallop/murmur, no JVD Abdomen: normal bowel sounds, soft, non tender, no organomegaly, non distended , no mass, no scars Extremities: no cyanosis, no clubbing, other - left heel ulcer Skin: no rash, no lesions, no ulcers, ulcers - left heel stage 2 Neurologic/Psychiatric: alert, unresponsiveness Microbiology Date/Time Source Procedure Growth Status 05/16/17 14:35 Blood Blood Culture - Preliminary NO GROWTH AFTER 24 HOURS Resulted 05/16/17 14:25 Blood Blood Culture - Preliminary NO GROWTH AFTER 24 HOURS Resulted 05/16/17 15:35 Nasal Nares Left MRSA Culture - Final NO METHICILLIN RESISTANT STAPH AUREUS... Complete 05/16/17 14:35 Nasal Nares Influenza Types A,B Antigen (YANA) - Final Complete 05/16/17 15:35 Indwelling Cath Urine Culture - Final NO GROWTH AFTER 48 HOURS Complete 05/16/17 15:35 Rectum VRE Culture - Final NO VANCOMYCIN RESISTANT ENTEROCOCCUS ... Complete Laboratory Tests Test 05/17/17 20:15 05/18/17 05:25 Prothrombin Time 10.6 SEC (9.30-11.50) 11.3 SEC (9.30-11.50) Prothromb Time International Ratio 1.0 (0.9-1.1) 1.1 (0.9-1.1) Activated Partial Thromboplast Time 36 SEC (23-33) H C-Reactive Protein, Quantitative 11.7 mg/dL (0.00-0.90) H Current Medications Medications (Trade) Dose Ordered Sig/Nancy Route PRN Reason Start Time Stop Time Status Last Admin Dose Admin Acetaminophen (Tylenol) 650 mg Q4H PRN GT Mild Pain/Temp > 100.5 05/16/17 15:45 06/15/17 15:44 Amlodipine Besylate (Norvasc) 2.5 mg BID GT 05/18/17 10:30 06/17/17 10:29 05/18/17 11:40 Cefepime HCl 2 gm/ Dextrose 55 ml @ 110 mls/hr DAILY IVPB 05/17/17 17:00 05/24/17 16:59 05/18/17 09:08 Clonidine HCl (Catapres Tab) 0.1 mg EVERY 6 HOURS PRN GT For High BP 160 syst & over 05/16/17 15:45 06/15/17 15:44 1/13/18 01:50 Dextrose (Dextrose 50%) STAT PRN IV Hypoglycemia 05/18/17 12:15 06/17/17 12:14 Docusate Sodium (Colace) 100 mg TID GT 05/16/17 18:00 06/15/17 17:59 05/18/17 13:33 Enoxaparin Sodium (Lovenox) 80 mg QPM SUBQ 05/18/17 16:30 06/17/17 16:29 Famotidine (Pepcid) 20 mg QPM GT 05/17/17 18:00 06/16/17 17:59 05/17/17 18:41 Insulin Aspart (NovoLOG) EVERY 6 HOURS SUBQ 05/18/17 13:00 06/17/17 12:59 05/18/17 13:32 Levetiracetam (Keppra) 500 mg BID GT 05/16/17 18:00 06/15/17 17:59 05/18/17 09:08 Metoclopramide HCl (Reglan) 5 mg EVERY 6 HOURS GT 05/16/17 18:00 06/15/17 17:59 05/18/17 12:43 Phenytoin (Dilantin) 100 mg BID GT 05/16/17 18:00 06/15/17 17:59 05/18/17 09:08 Vancomycin HCl (Vanco rx to dose) 1 ea DAILY PRN MISC Per rx protocol 05/17/17 14:15 06/16/17 14:14 Vancomycin HCl 1 gm/Dextrose 275 ml @ 183.708 mls/hr Q24H IVPB 05/17/17 17:00 05/22/17 16:59 05/17/17 22:07 Warfarin Sodium (Coumadin per pharmacy) 1 ea DAILY PRN MISC Per rx protocol 05/17/17 17:45 06/16/17 17:44 Warfarin Sodium (Coumadin) 5 mg COUMADIN ONCE ORAL 05/18/17 17:00 05/18/17 17:01 Ayala Forman M.D. May 18, 2017 14:27
--- NOTE | 2017-05-18 16:10 | Pulmonology Progress Note ---
Assessment/Plan Problems: (1) Sepsis (2) Decubital ulcer (3) Diabetes (4) G tube feedings (5) Dementia Assessment/Plan check cultures continue abx surgical evaluation for decubiti ulcer toleraing feeding Gtube site carfe coumadin by pharmacy Subjective ROS Limited/Unobtainable: Yes Allergies: Coded Allergies: No Known Allergies (Verified , 01/27/10) Objective Last 24 Hour Vital Signs Date Time Temp Pulse Resp B/P (MAP) Pulse Ox O2 Delivery O2 Flow Rate FiO2 05/18/17 13:48 Room Air 05/18/17 11:55 98.4 71 20 159/68 92 05/18/17 11:40 71 159/68 05/18/17 09:26 Room Air 05/18/17 08:52 98.6 75 21 161/91 95 05/18/17 04:00 98.2 67 18 143/57 92 Room Air 05/18/17 01:50 169/77 05/18/17 00:00 97.9 87 20 173/80 97 Room Air 05/17/17 20:00 98.2 69 20 149/93 92 Room Air Intake and Output 05/17/17 05/18/17 19:00 07:00 Intake Total 715 ml 805 ml Output Total 275 ml 1200 ml Balance 440 ml -395 ml Free Water 90 ml Tube Feeding 715 ml 715 ml Output Urine Total 275 ml 1200 ml # Bowel Movements 1 Objective General Appearance: WD/WN HEENT: normocephalic, atraumatic Respiratory/Chest: chest wall non-tender, lungs clear Cardiovascular: normal peripheral pulses, normal rate Abdomen: normal bowel sounds, soft, non tender Genitourinary: normal external genitalia Extremities: no cyanosis 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 Complete 05/16/17 14:35 Nasal Nares Influenza Types A,B Antigen (YANA) - Final Complete 05/16/17 15:35 Indwelling Cath Urine Culture - Final NO GROWTH AFTER 48 HOURS Complete 05/16/17 15:35 Rectum VRE Culture - Final NO VANCOMYCIN RESISTANT ENTEROCOCCUS ... Complete Laboratory Tests 05/17/17 20:15: Prothrombin Time 10.6, Prothromb Time International Ratio 1.0 05/18/17 05:25: Prothrombin Time 11.3, Prothromb Time International Ratio 1.1, Activated Partial Thromboplast Time 36H, C-Reactive Protein, Quantitative 11.7H Current Medications Medications (Trade) Dose Ordered Sig/Nancy Route PRN Reason Start Time Stop Time Status Last Admin Dose Admin Acetaminophen (Tylenol) 650 mg Q4H PRN GT Mild Pain/Temp > 100.5 05/16/17 15:45 06/15/17 15:44 Amlodipine Besylate (Norvasc) 2.5 mg BID GT 05/18/17 10:30 06/17/17 10:29 05/18/17 11:40 Cefepime HCl 2 gm/ Dextrose 55 ml @ 110 mls/hr DAILY IVPB 05/17/17 17:00 05/24/17 16:59 05/18/17 09:08 Clonidine HCl (Catapres Tab) 0.1 mg EVERY 6 HOURS PRN GT For High BP 160 syst & over 05/16/17 15:45 06/15/17 15:44 05/18/17 01:50 Dextrose (Dextrose 50%) STAT PRN IV Hypoglycemia 05/18/17 12:15 06/17/17 12:14 Docusate Sodium (Colace) 100 mg TID GT 05/16/17 18:00 06/15/17 17:59 05/18/17 13:33 Enoxaparin Sodium (Lovenox) 80 mg QPM SUBQ 05/18/17 16:30 06/17/17 16:29 Famotidine (Pepcid) 20 mg QPM GT 05/17/17 18:00 06/16/17 17:59 05/17/17 18:41 Insulin Aspart (NovoLOG) EVERY 6 HOURS SUBQ 05/18/17 13:00 06/17/17 12:59 05/18/17 13:32 Levetiracetam (Keppra) 500 mg BID GT 05/16/17 18:00 06/15/17 17:59 05/18/17 09:08 Metoclopramide HCl (Reglan) 5 mg EVERY 6 HOURS GT 05/16/17 18:00 06/15/17 17:59 05/18/17 12:43 Phenytoin (Dilantin) 100 mg BID GT 05/16/17 18:00 06/15/17 17:59 05/18/17 09:08 Vancomycin HCl (Vanco rx to dose) 1 ea DAILY PRN MISC Per rx protocol 05/17/17 14:15 06/16/17 14:14 Vancomycin HCl 1 gm/Dextrose 275 ml @ 183.708 mls/hr Q24H IVPB 05/17/17 17:00 05/22/17 16:59 05/17/17 22:07 Warfarin Sodium (Coumadin per pharmacy) 1 ea DAILY PRN MISC Per rx protocol 05/17/17 17:45 06/16/17 17:44 Warfarin Sodium (Coumadin) 5 mg COUMADIN ONCE ORAL 05/18/17 17:00 05/18/17 17:01 TREY BEE May 18, 2017 16:09
[2017-05-18 16:23] VITALS: BP 163/77
[2017-05-18] MEDS ORDERED: Tubing IV Secondary IV ONE (16:31)
[2017-05-18] MEDS ORDERED: Warfarin Sodium 5mg ORAL ONE (17:00)
[2017-05-18] MEDS: Vancomycin 1gm in D5W 275ml IVPB SCH (17:16)
[2017-05-18] MEDS: Enoxaparin 80mg Inj SUBQ SCH (17:17)
[2017-05-18 20:00] VITALS: BP 154/59
[2017-05-19 00:29] VITALS: BP 126/68
[2017-05-19] MEDS: NovoLOG Insulin Flexpen SUBQ SCH ×4 (01:00→18:47)
[2017-05-19 04:00] VITALS: BP 159/67
[2017-05-19 07:32] LABS: BASOPHILS % (AUTO) 0.5 % (0.0-2.0); EOSINOPHILS % (AUTO) 1.9 % (0.0-3.0); HEMATOCRIT 27.8 % (37.0-47.0); HEMOGLOBIN 9.4 G/DL (12.0-16.0); LYMPHOCYTES % (AUTO) 46.1 % (20.0-45.0); MEAN CORPUSCULAR VOLUME 98 FL (80-99); MONOCYTES % (AUTO) 7.5 % (1.0-10.0); NEUTROPHILS % (AUTO) 44.1 % (45.0-75.0); PLATELET COUNT 211 K/UL (150-450); RED BLOOD COUNT 2.84 M/UL (4.20-5.40); RED CELL DISTRIBUTION WIDTH 12.1 % (11.6-14.8); WHITE BLOOD COUNT 6.4 K/UL (4.8-10.8)
[2017-05-19 07:37] LABS: INR 1.2 (0.9-1.1)
[2017-05-19 07:56] LABS: ALANINE AMINOTRANSFERASE 19 U/L (12-78); ALBUMIN 2.2 G/DL (3.4-5.0); ALBUMIN/GLOBULIN RATIO 0.3 (1.0-2.7); ALKALINE PHOSPHATASE 227 U/L (46-116); ANION GAP 11 mmol/L (5-15); ASPARTATE AMINO TRANSFERASE 25 U/L (15-37); BILIRUBIN,TOTAL 0.2 MG/DL (0.2-1.0); BLOOD UREA NITROGEN 23 mg/dL (7-18); CALCIUM 8.7 MG/DL (8.5-10.1); CARBON DIOXIDE 26 MMOL/L (21-32); CHLORIDE 106 MMOL/L (98-107); PHOSPHORUS 3.8 MG/DL (2.5-4.9); POTASSIUM 2.9 MMOL/L (3.5-5.1); SODIUM 143 MMOL/L (136-145)
[2017-05-19 08:12] VITALS: BP 141/81
[2017-05-19] MEDS: Docusate 100mg/10ml Liq GT SCH ×3 (08:30→18:54)
[2017-05-19] MEDS: Phenytoin Susp 100mg/4ml GT SCH ×2 (08:31→18:55)
[2017-05-19] MEDS: Cefepime HCl 2 GM in D5W 55 ML IVPB SCH (08:31)
--- NOTE | 2017-05-19 10:39 | Consultation ---
History of Present Illness General Date patient seen: May 19, 2017 Chief Complaint: Fever Reason for Consultation: left heel ulcer, sacral decubitus ulcer Present Illness HPI The patient is an 81-year-old female with past medical history of diabetes, hypertension, and dementia, was brought in from assisted to [facility] emergency room for fever with congestion and runny nose. Patient was admitted for medical del cid for care and management. she is currently on Abx and slowly improving. upon admission patient was noted to have a foul smelling deep left heel ulcer and a sacral decubitus ulcer. surgery called to evaluate and care for wounds. Allergies: Coded Allergies: No Known Allergies (Verified , 01/27/10) Medication History Scheduled Amlodipine Besylate (Norvasc), 5 MG GT DAILY, (Reported) Ascorbic Acid* (Vitamin C*), 500 MG GT DAILY, (Reported) Bacitracin (Bacitracin), 1 APPLIC TOPIC BID Cranberry (Cranberry), 450 MG GT DAILY, (Reported) Docusate Sodium* (Docusate Sodium*), 100 MG GT TWICE A DAY, (Reported) Heparin Sodium,Porcine/Pf (Heparin Sod 1,000 Unit/Ml Vial), 5,000 UNITS SUBQ BID , (Reported) Insulin Aspart (Novolog Flexpen), 0 UNITS SUBQ BEFORE MEALS AND HS Levetiracetam (Keppra), 500 MG GT DAILY, (Reported) Multivitamin (Daily Vitamin), 1 TAB GT DAILY, (Reported) Omeprazole (Omeprazole), 20 MG GT DAILY, (Reported) Phenytoin Sodium Extended* (Dilantin*), 100 MG GT BID, (Reported) Ranitidine Hcl* (Zantac*), 150 MG GT DAILY, (Reported) Simvastatin (Zocor), 40 MG GT BEDTIME, (Reported) Tramadol Hcl* (Ultram*), 50 MG GT BID, (Reported) Scheduled PRN Acetaminophen (Tylenol 8 Hour), 650 MG GT Q4HR PRN for Mild Pain/Temp > 100.5, ( Reported) Clonidine Hcl* (Catapres*), 0.1 MG GT EVERY 6 HOURS PRN for For High Blood Pressure, (Reported) Diphenhydramine Hcl* (Benadryl*), 25 MG GT Q6H PRN for Itching, (Reported) Magnesium Hydroxide (Milk of Magnesia), 30 ML GT DAILY PRN for Constipation, ( Reported) Na Phos,M-B/Na Phos,Di-Ba* (Fleet Enema*), 133 ML RECTAL DAILY PRN for Constipation, (Reported) Nitroglycerin (Nitroglycerin), 0.4 MG SL EVERY 5 MIN PRN for CHEST PAIN, ( Reported) Ondansetron (Zofran), 4 MG ORAL Q6H PRN for Nausea & Vomiting Ondansetron* (Zofran*), 4 MG ORAL Q6H PRN for Nausea & Vomiting, (Reported) Polyethylene Glycol 3350* (Miralax*), 17 GM GT DAILY PRN for Constipation, ( Reported) Miscellaneous Medications [regular insulin], (Reported) Patient History Limited by: medical condition History Provided By: Medical Record Healthcare decision maker HERBER NAM Resuscitation status Full Code Advanced Directive on File No Past Medical/Surgical History Past Medical/Surgical History: (1) Dermatitis (2) Sepsis (3) Vomiting (4) Vomiting (5) [id number] (6) Right hemiparesis (7) PEG (percutaneous endoscopic gastrostomy) adjustment/replacement/removal (8) Abnormal LFTs (9) Prolonged PTT (10) Malfunction of gastrostomy tube (11) Malfunction of gastrostomy tube (12) Malfunction of gastrostomy tube (13) Malfunction of percutaneous endoscopic gastrostomy (PEG) tube (14) Gastrostomy tube obstruction (15) Hyponatremia (16) Hyperkalemia, diminished renal excretion (17) E87.5 (18) Dehydration (19) Sepsis (20) UTI (urinary tract infection) (21) Bronchitis (22) Sacral decubitus ulcer, stage III (23) Heel ulcer (24) Fever (25) Dementia (26) Diabetes (27) Sepsis (28) Decubital ulcer (29) DVT (deep vein thrombosis) in (30) G tube feedings Review of Systems ROS Narrative cannot obtain given patients medical condition Physical Exam General Appearance: no apparent distress HEENT: mucous membranes moist Neck: normal inspection Respiratory/Chest: normal breath sounds, no respiratory distress, no accessory muscle use Cardiovascular/Chest: regularly irregular Abdomen: non tender, soft, no organomegaly, no mass Extremities: other - left heel with 5cm x 5cm deep pressure ulcer down to bone. no necrotic tissue. no signs of infection. clean base Skin Exam: other - sacral stage II decubitus ulcer with skin breakdown Neurologic: unresponsiveness Last 24 Hour Vital Signs Date Time Temp Pulse Resp B/P (MAP) Pulse Ox O2 Delivery O2 Flow Rate FiO2 05/19/17 08:31 83 141/81 05/19/17 08:12 97.3 83 141/81 97 Room Air 05/19/17 04:00 97.7 79 20 159/67 95 Room Air 05/19/17 00:29 98.2 77 20 126/68 96 77 05/18/17 20:00 97.9 77 20 154/59 93 Room Air 05/18/17 19:02 83 184/75 05/18/17 16:23 98.0 83 20 163/77 96 05/18/17 13:48 Room Air 05/18/17 11:55 98.4 71 20 159/68 92 05/18/17 11:40 71 159/68 Intake and Output 05/18/17 05/19/17 19:00 07:00 Intake Total 810 ml 895 ml Output Total 150 ml 500 ml Balance 660 ml 395 ml Free Water 30 ml 180 ml Tube Feeding 780 ml 715 ml Output Urine Total 150 ml 500 ml # Bowel Movements 1 3 Laboratory Tests Test 05/19/17 06:10 White Blood Count 6.4 K/UL (4.8-10.8) Red Blood Count 2.84 M/UL (4.20-5.40) L Hemoglobin 9.4 G/DL (12.0-16.0) L Hematocrit 27.8 % (37.0-47.0) L Mean Corpuscular Volume 98 FL (80-99) Mean Corpuscular Hemoglobin 33.0 PG (27.0-31.0) H Mean Corpuscular Hemoglobin Concent 33.7 G/DL (32.0-36.0) Red Cell Distribution Width 12.1 % (11.6-14.8) Platelet Count 211 K/UL (150-450) Mean Platelet Volume 6.8 FL (6.5-10.1) Neutrophils (%) (Auto) 44.1 % (45.0-75.0) L Lymphocytes (%) (Auto) 46.1 % (20.0-45.0) H Monocytes (%) (Auto) 7.5 % (1.0-10.0) Eosinophils (%) (Auto) 1.9 % (0.0-3.0) Basophils (%) (Auto) 0.5 % (0.0-2.0) Prothrombin Time 12.2 SEC (9.30-11.50) H Prothromb Time International Ratio 1.2 (0.9-1.1) H Sodium Level 143 MMOL/L (136-145) Potassium Level 2.9 MMOL/L (3.5-5.1) L Chloride Level 106 MMOL/L (98-107) Carbon Dioxide Level 26 MMOL/L (21-32) Anion Gap 11 mmol/L (5-15) Blood Urea Nitrogen 23 mg/dL (7-18) H Creatinine 1.0 MG/DL (0.55-1.30) Estimat Glomerular Filtration Rate mL/min (>60) Glucose Level 167 MG/DL (74-106) H Calcium Level 8.7 MG/DL (8.5-10.1) Phosphorus Level 3.8 MG/DL (2.5-4.9) Magnesium Level 2.1 MG/DL (1.8-2.4) Total Bilirubin 0.2 MG/DL (0.2-1.0) Aspartate Amino Transf (AST/SGOT) 25 U/L (15-37) Alanine Aminotransferase (ALT/SGPT) 19 U/L (12-78) Alkaline Phosphatase 227 U/L (46-116) H Pro-B-Type Natriuretic Peptide 373 pg/mL (0-125) H Total Protein 8.5 G/DL (6.4-8.2) H Albumin 2.2 G/DL (3.4-5.0) L Globulin 6.3 g/dL Albumin/Globulin Ratio 0.3 (1.0-2.7) L Height (Feet): 5 Height (Inches): 4.00 Weight (Pounds): 179 Medications Current Medications Medications (Trade) Dose Ordered Sig/Nancy Route PRN Reason Start Time Stop Time Status Last Admin Dose Admin Acetaminophen (Tylenol) 650 mg Q4H PRN GT Mild Pain/Temp > 100.5 05/16/17 15:45 06/15/17 15:44 Amlodipine Besylate (Norvasc) 2.5 mg BID GT 05/18/17 10:30 06/17/17 10:29 05/19/17 08:31 Cefepime HCl 2 gm/ Dextrose 55 ml @ 110 mls/hr DAILY IVPB 05/17/17 17:00 05/24/17 16:59 05/19/17 08:31 Clonidine HCl (Catapres Tab) 0.1 mg EVERY 6 HOURS PRN GT For High BP 160 syst & over 05/16/17 15:45 06/15/17 15:44 05/18/17 01:50 Dextrose (Dextrose 50%) STAT PRN IV Hypoglycemia 05/18/17 12:15 06/17/17 12:14 Docusate Sodium (Colace) 100 mg TID GT 05/19/17 13:00 06/18/17 12:59 Enoxaparin Sodium (Lovenox) 80 mg QPM SUBQ 05/18/17 16:30 06/17/17 16:29 05/18/17 17:17 Famotidine (Pepcid) 20 mg QPM GT 05/17/17 18:00 06/16/17 17:59 05/18/17 17:15 Insulin Aspart (NovoLOG) EVERY 6 HOURS SUBQ 05/18/17 13:00 06/17/17 12:59 05/19/17 05:59 Levetiracetam (Keppra) 500 mg BID GT 05/16/17 18:00 06/15/17 17:59 05/19/17 08:31 Metoclopramide HCl (Reglan) 5 mg EVERY 6 HOURS GT 05/19/17 12:00 06/18/17 11:59 Phenytoin (Dilantin) 100 mg BID GT 05/16/17 18:00 06/15/17 17:59 05/19/17 08:31 Potassium Chloride (K-Dur) 40 meq Q4H GT 05/19/17 09:30 05/19/17 13:31 05/19/17 09:49 Vancomycin HCl (Vanco rx to dose) 1 ea DAILY PRN MISC Per rx protocol 05/17/17 14:15 06/16/17 14:14 Vancomycin HCl 1 gm/Dextrose 275 ml @ 183.708 mls/hr Q24H IVPB 05/17/17 17:00 05/22/17 16:59 05/18/17 17:16 Warfarin Sodium (Coumadin per pharmacy) 1 ea DAILY PRN MISC Per rx protocol 05/17/17 17:45 06/16/17 17:44 Warfarin Sodium (Coumadin) 5 mg COUMADIN ONCE ORAL 05/19/17 17:00 05/19/17 17:01 Assessment/Plan Problem List: (1) Heel ulcer ICD Codes: L97.409 - Non-pressure chronic ulcer of unspecified heel and midfoot with unspecified severity SNOMED: [id number] Qualifiers: Qualified Codes: L97.424 - Non-pressure chronic ulcer of left heel and midfoot with necrosis of bone (2) Sacral decubitus ulcer, stage III ICD Codes: L89.153 - Pressure ulcer of sacral region, stage 3 SNOMED: [id number], [id number] Status: stable Assessment/Plan left heel wound clean. no signs of active infection. wound cleaned and dressings applied. no debridement necessary at this time. MUST keep pressure off heal to help with healing. sacral ulcer is also clean without signs of infection. needs to keep pressure off area of will progress in time. thank you for this consultation. will follow with recs. Taco Carter May 19, 2017 10:39
--- NOTE | 2017-05-19 11:59 | General Progress Note ---
Assessment/Plan Status: stable Status Narrative - Cough. Respiratory distress . impaction. - Hyperkalemia on presentation - deep vein thrombosis. - Diabetes mellitus. High A1c - Organic brain syndrome. - Functional quadriplegia. - Hypertension. - Seizures. - Anemia - HypoAlbuminemia - ? Lt heel Oste ID isuues: (1) Heel ulcer (2) Sacral decubitus ulcer, stage III (3) UTI (urinary tract infection) (4) Sepsis (5) Fever Assessment/Plan Plan: antibiotics per Dr Forman IV Iron coumadin pharmacy Monitor BS Laxatives as needed antiSz meds per orders ? DC in am on oralS Subjective ROS Limited/Unobtainable: No Constitutional: Reports: malaise Allergies: Coded Allergies: No Known Allergies (Verified , 01/27/10) Objective Last 24 Hour Vital Signs Date Time Temp Pulse Resp B/P (MAP) Pulse Ox O2 Delivery O2 Flow Rate FiO2 05/19/17 08:31 83 141/81 05/19/17 08:12 97.3 83 141/81 97 Room Air 05/19/17 04:00 97.7 79 20 159/67 95 Room Air 05/19/17 00:29 98.2 77 20 126/68 96 77 05/18/17 20:00 97.9 77 20 154/59 93 Room Air 05/18/17 19:02 83 184/75 05/18/17 16:23 98.0 83 20 163/77 96 05/18/17 13:48 Room Air Intake and Output 05/18/17 05/19/17 19:00 07:00 Intake Total 810 ml 895 ml Output Total 150 ml 500 ml Balance 660 ml 395 ml Free Water 30 ml 180 ml Tube Feeding 780 ml 715 ml Output Urine Total 150 ml 500 ml # Bowel Movements 1 3 Current Medications Medications (Trade) Dose Ordered Sig/Nancy Route PRN Reason Start Time Stop Time Status Last Admin Dose Admin Acetaminophen (Tylenol) 650 mg Q4H PRN GT Mild Pain/Temp > 100.5 05/16/17 15:45 06/15/17 15:44 Amlodipine Besylate (Norvasc) 2.5 mg BID GT 05/18/17 10:30 06/17/17 10:29 05/19/17 08:31 Cefepime HCl 2 gm/ Dextrose 55 ml @ 110 mls/hr DAILY IVPB 05/17/17 17:00 05/24/17 16:59 05/19/17 08:31 Clonidine HCl (Catapres Tab) 0.1 mg EVERY 6 HOURS PRN GT For High BP 160 syst & over 05/16/17 15:45 06/15/17 15:44 05/18/17 01:50 Dextrose (Dextrose 50%) STAT PRN IV Hypoglycemia 05/18/17 12:15 06/17/17 12:14 Docusate Sodium (Colace) 100 mg TID GT 05/19/17 13:00 06/18/17 12:59 Enoxaparin Sodium (Lovenox) 80 mg QPM SUBQ 05/18/17 16:30 06/17/17 16:29 05/18/17 17:17 Famotidine (Pepcid) 20 mg QPM GT 05/17/17 18:00 06/16/17 17:59 05/18/17 17:15 Insulin Aspart (NovoLOG) EVERY 6 HOURS SUBQ 05/18/17 13:00 06/17/17 12:59 05/19/17 05:59 Levetiracetam (Keppra) 500 mg BID GT 05/16/17 18:00 06/15/17 17:59 05/19/17 08:31 Metoclopramide HCl (Reglan) 5 mg EVERY 6 HOURS GT 05/19/17 12:00 06/18/17 11:59 Phenytoin (Dilantin) 100 mg BID GT 05/16/17 18:00 06/15/17 17:59 05/19/17 08:31 Potassium Chloride (K-Dur) 40 meq Q4H GT 05/19/17 09:30 05/19/17 13:31 05/19/17 09:49 Vancomycin HCl (Vanco rx to dose) 1 ea DAILY PRN MISC Per rx protocol 05/17/17 14:15 06/16/17 14:14 Vancomycin HCl 1 gm/Dextrose 275 ml @ 183.708 mls/hr Q24H IVPB 05/17/17 17:00 05/22/17 16:59 05/18/17 17:16 Warfarin Sodium (Coumadin per pharmacy) 1 ea DAILY PRN MISC Per rx protocol 05/17/17 17:45 2/11/18 17:44 Warfarin Sodium (Coumadin) 5 mg COUMADIN ONCE ORAL 05/19/17 17:00 05/19/17 17:01 Laboratory Tests 05/19/17 06:10: White Blood Count 6.4, Red Blood Count 2.84L, Hemoglobin 9.4L, Hematocrit 27.8L , Mean Corpuscular Volume 98, Mean Corpuscular Hemoglobin 33.0H, Mean Corpuscular Hemoglobin Concent 33.7, Red Cell Distribution Width 12.1, Platelet Count 211, Mean Platelet Volume 6.8, Neutrophils (%) (Auto) 44.1L, Lymphocytes ( %) (Auto) 46.1H, Monocytes (%) (Auto) 7.5, Eosinophils (%) (Auto) 1.9, Basophils (%) (Auto) 0.5, Prothrombin Time 12.2H, Prothromb Time International Ratio 1.2H, Sodium Level 143, Potassium Level 2.9L, Chloride Level 106, Carbon Dioxide Level 26, Anion Gap 11, Blood Urea Nitrogen 23H, Creatinine 1.0, Estimat Glomerular Filtration Rate , Glucose Level 167H, Calcium Level 8.7, Phosphorus Level 3.8, Magnesium Level 2.1, Total Bilirubin 0.2, Aspartate Amino Transf (AST/SGOT) 25, Alanine Aminotransferase (ALT/SGPT) 19, Alkaline Phosphatase 227H, Pro-B-Type Natriuretic Peptide 373H, Total Protein 8.5H, Albumin 2.2L, Globulin 6.3, Albumin/Globulin Ratio 0.3L Height (Feet): 5 Height (Inches): 4.00 Weight (Pounds): 179 General Appearance: no apparent distress Cardiovascular: normal rate Respiratory/Chest: decreased breath sounds Abdomen: soft, other - GT feeding on Objective no other changes GEORGE MONDRAGON May 19, 2017 11:59
[2017-05-19 12:40] VITALS: BP 139/72
--- NOTE | 2017-05-19 14:27 | Pulmonology Progress Note ---
Assessment/Plan Problems: (1) Sepsis (2) Decubital ulcer (3) Diabetes (4) G tube feedings (5) Dementia Assessment/Plan check cultures continue abx surgical evaluation for decubiti ulcer toleraing feeding Gtube site care check electrolytes Subjective ROS Limited/Unobtainable: No HEENT: Repors: no symptoms Respiratory: Reports: no symptoms Cardiovascular: Reports: no symptoms Allergies: Coded Allergies: No Known Allergies (Verified , 01/27/10) Objective Last 24 Hour Vital Signs Date Time Temp Pulse Resp B/P (MAP) Pulse Ox O2 Delivery O2 Flow Rate FiO2 05/19/17 12:48 20 100 Room Air 05/19/17 12:40 96.8 83 139/72 05/19/17 08:31 83 141/81 05/19/17 08:12 97.3 83 141/81 97 Room Air 05/19/17 04:00 97.7 79 20 159/67 95 Room Air 05/19/17 00:29 98.2 77 20 126/68 96 77 05/18/17 20:00 97.9 77 20 154/59 93 Room Air 05/18/17 19:02 83 184/75 05/18/17 16:23 98.0 83 20 163/77 96 Intake and Output 05/18/17 05/19/17 18:59 06:59 Intake Total 810 ml 960 ml Output Total 150 ml 500 ml Balance 660 ml 460 ml Free Water 30 ml 180 ml Tube Feeding 780 ml 780 ml Output Urine Total 150 ml 500 ml # Bowel Movements 1 3 Objective General Appearance: WD/WN HEENT: normocephalic, atraumatic Respiratory/Chest: chest wall non-tender, lungs clear Cardiovascular: normal peripheral pulses, normal rate Abdomen: normal bowel sounds, soft, non tender Genitourinary: normal external genitalia Extremities: no cyanosis 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 Complete 05/16/17 14:35 Nasal Nares Influenza Types A,B Antigen (YANA) - Final Complete 1/11/18 15:35 Indwelling Cath Urine Culture - Final NO GROWTH AFTER 48 HOURS Complete 05/17/17 04:00 Sacral Swab Gram Stain - Final Resulted 05/17/17 04:00 Sacral Swab Wound Culture Pending Resulted 05/16/17 15:35 Rectum VRE Culture - Final NO VANCOMYCIN RESISTANT ENTEROCOCCUS ... Complete Laboratory Tests 05/19/17 06:10: White Blood Count 6.4, Red Blood Count 2.84L, Hemoglobin 9.4L, Hematocrit 27.8L , Mean Corpuscular Volume 98, Mean Corpuscular Hemoglobin 33.0H, Mean Corpuscular Hemoglobin Concent 33.7, Red Cell Distribution Width 12.1, Platelet Count 211, Mean Platelet Volume 6.8, Neutrophils (%) (Auto) 44.1L, Lymphocytes ( %) (Auto) 46.1H, Monocytes (%) (Auto) 7.5, Eosinophils (%) (Auto) 1.9, Basophils (%) (Auto) 0.5, Prothrombin Time 12.2H, Prothromb Time International Ratio 1.2H, Sodium Level 143, Potassium Level 2.9L, Chloride Level 106, Carbon Dioxide Level 26, Anion Gap 11, Blood Urea Nitrogen 23H, Creatinine 1.0, Estimat Glomerular Filtration Rate , Glucose Level 167H, Calcium Level 8.7, Phosphorus Level 3.8, Magnesium Level 2.1, Total Bilirubin 0.2, Aspartate Amino Transf (AST/SGOT) 25, Alanine Aminotransferase (ALT/SGPT) 19, Alkaline Phosphatase 227H, C-Reactive Protein, Quantitative 11.5H, Pro-B-Type Natriuretic Peptide 373H, Total Protein 8.5H, Albumin 2.2L, Globulin 6.3, Albumin/Globulin Ratio 0.3L Current Medications Medications (Trade) Dose Ordered Sig/Nancy Route PRN Reason Start Time Stop Time Status Last Admin Dose Admin Acetaminophen (Tylenol) 650 mg Q4H PRN GT Mild Pain/Temp > 100.5 05/16/17 15:45 06/15/17 15:44 Amlodipine Besylate (Norvasc) 2.5 mg BID GT 05/18/17 10:30 06/17/17 10:29 05/19/17 08:31 Cefepime HCl 2 gm/ Dextrose 55 ml @ 110 mls/hr DAILY IVPB 05/17/17 17:00 05/24/17 16:59 05/19/17 08:31 Clonidine HCl (Catapres Tab) 0.1 mg EVERY 6 HOURS PRN GT For High BP 160 syst & over 05/16/17 15:45 06/15/17 15:44 05/18/17 01:50 Dextrose (Dextrose 50%) STAT PRN IV Hypoglycemia 05/18/17 12:15 06/17/17 12:14 Docusate Sodium (Colace) 100 mg TID GT 05/19/17 13:00 06/18/17 12:59 05/19/17 13:22 Enoxaparin Sodium (Lovenox) 80 mg QPM SUBQ 05/18/17 16:30 06/17/17 16:29 05/18/17 17:17 Famotidine (Pepcid) 20 mg QPM GT 05/17/17 18:00 06/16/17 17:59 05/18/17 17:15 Insulin Aspart (NovoLOG) EVERY 6 HOURS SUBQ 05/18/17 13:00 06/17/17 12:59 05/19/17 12:33 Levetiracetam (Keppra) 500 mg BID GT 05/16/17 18:00 06/15/17 17:59 05/19/17 08:31 Metoclopramide HCl (Reglan) 5 mg EVERY 6 HOURS GT 05/19/17 12:00 06/18/17 11:59 05/19/17 12:30 Phenytoin (Dilantin) 100 mg BID GT 05/16/17 18:00 06/15/17 17:59 05/19/17 08:31 Vancomycin HCl (Vanco rx to dose) 1 ea DAILY PRN MISC Per rx protocol 05/17/17 14:15 06/16/17 14:14 Vancomycin HCl 1 gm/Dextrose 275 ml @ 183.708 mls/hr Q24H IVPB 05/17/17 17:00 05/22/17 16:59 05/18/17 17:16 Warfarin Sodium (Coumadin per pharmacy) 1 ea DAILY PRN MISC Per rx protocol 05/17/17 17:45 06/16/17 17:44 Warfarin Sodium (Coumadin) 5 mg COUMADIN ONCE ORAL 05/19/17 17:00 05/19/17 17:01 TREY BEE May 19, 2017 14:27
[2017-05-19 16:09] VITALS: BP 160/69
[2017-05-19] MEDS ORDERED: Warfarin Sodium 5mg ORAL ONE (17:00)
[2017-05-19] MEDS: Vancomycin 1gm in D5W 275ml IVPB SCH (17:33)
[2017-05-19] MEDS: Enoxaparin 80mg Inj SUBQ SCH (17:40)
--- NOTE | 2017-05-19 19:34 | Infectious Diseases Prog Note ---
Assessment/Plan Problems: (1) Heel ulcer Assessment & Plan: on the left heel , possible underlying osteomyelitis, with elevated ESR and X ray result of the left heel , continue vancomycin with cefepime empiric coverage , and local wound care . will order MRI of the left heel to confirm , await wound culture (2) Sacral decubitus ulcer, stage III Assessment & Plan: keep off loading and continue local wound care (3) UTI (urinary tract infection) Assessment & Plan: on cefepime empirically, pending urine culture results (4) Sepsis Assessment & Plan: due to the above , await blood culture and continue vancomycin with cefepime empirically (5) Fever Assessment & Plan: due to the above, await blood culture to rule out bacteremia and continue vancomycin with cefepime empirically Subjective ROS Limited/Unobtainable: Yes Allergies: Coded Allergies: No Known Allergies (Verified , 01/27/10) Subjective she was comfortable , lying in bed, alert, nonverbal, not in distress, afebrile Objective Vital Signs Last 24 Hour Vital Signs Date Time Temp Pulse Resp B/P (MAP) Pulse Ox O2 Delivery O2 Flow Rate FiO2 05/19/17 19:03 85 172/111 05/19/17 16:09 97.9 85 22 160/69 94 Room Air 05/19/17 12:48 20 100 Room Air 05/19/17 12:40 96.8 83 139/72 05/19/17 08:31 83 141/81 05/19/17 08:12 97.3 83 141/81 97 Room Air 05/19/17 04:00 97.7 79 20 159/67 95 Room Air 05/19/17 00:29 98.2 77 20 126/68 96 77 05/18/17 20:00 97.9 77 20 154/59 93 Room Air Height (Feet): 5 Height (Inches): 4.00 Weight (Pounds): 179 General Appearance: WD/WN, no acute distress HEENT: normocephalic, atraumatic, anicteric, mucous membranes moist, PERRL, supple, no JVD Respiratory/Chest: chest wall non-tender, lungs clear, normal breath sounds, no respiratory distress, no accessory muscle use Cardiovascular: normal peripheral pulses, normal rate, regular rhythm, no gallop/murmur, no JVD Abdomen: normal bowel sounds, soft, non tender, no organomegaly, non distended , no mass, no scars Genitourinary: normal external genitalia Extremities: no cyanosis, no clubbing, other - left heel pressure wound with granulation Skin: no rash, no lesions, ulcers Neurologic/Psychiatric: alert, unresponsiveness Lymphatic: no neck adenopathy, no groin adenopathy Microbiology Date/Time Source Procedure Growth Status 05/17/17 04:00 Sacral Swab Gram Stain - Final Resulted 05/17/17 04:00 Sacral Swab Wound Culture Pending Resulted Laboratory Tests Test 05/19/17 06:10 05/19/17 16:00 White Blood Count 6.4 K/UL (4.8-10.8) Red Blood Count 2.84 M/UL (4.20-5.40) L Hemoglobin 9.4 G/DL (12.0-16.0) L Hematocrit 27.8 % (37.0-47.0) L Mean Corpuscular Volume 98 FL (80-99) Mean Corpuscular Hemoglobin 33.0 PG (27.0-31.0) H Mean Corpuscular Hemoglobin Concent 33.7 G/DL (32.0-36.0) Red Cell Distribution Width 12.1 % (11.6-14.8) Platelet Count 211 K/UL (150-450) Mean Platelet Volume 6.8 FL (6.5-10.1) Neutrophils (%) (Auto) 44.1 % (45.0-75.0) L Lymphocytes (%) (Auto) 46.1 % (20.0-45.0) H Monocytes (%) (Auto) 7.5 % (1.0-10.0) Eosinophils (%) (Auto) 1.9 % (0.0-3.0) Basophils (%) (Auto) 0.5 % (0.0-2.0) Prothrombin Time 12.2 SEC (9.30-11.50) H Prothromb Time International Ratio 1.2 (0.9-1.1) H Sodium Level 143 MMOL/L (136-145) Potassium Level 2.9 MMOL/L (3.5-5.1) L Chloride Level 106 MMOL/L (98-107) Carbon Dioxide Level 26 MMOL/L (21-32) Anion Gap 11 mmol/L (5-15) Blood Urea Nitrogen 23 mg/dL (7-18) H Creatinine 1.0 MG/DL (0.55-1.30) Estimat Glomerular Filtration Rate mL/min (>60) Glucose Level 167 MG/DL (74-106) H Calcium Level 8.7 MG/DL (8.5-10.1) Phosphorus Level 3.8 MG/DL (2.5-4.9) Magnesium Level 2.1 MG/DL (1.8-2.4) Total Bilirubin 0.2 MG/DL (0.2-1.0) Aspartate Amino Transf (AST/SGOT) 25 U/L (15-37) Alanine Aminotransferase (ALT/SGPT) 19 U/L (12-78) Alkaline Phosphatase 227 U/L (46-116) H C-Reactive Protein, Quantitative 11.5 mg/dL (0.00-0.90) H Pro-B-Type Natriuretic Peptide 373 pg/mL (0-125) H Total Protein 8.5 G/DL (6.4-8.2) H Albumin 2.2 G/DL (3.4-5.0) L Globulin 6.3 g/dL Albumin/Globulin Ratio 0.3 (1.0-2.7) L Vancomycin Level Trough 15.1 ug/mL (5.0-12.0) H Current Medications Medications (Trade) Dose Ordered Sig/Nancy Route PRN Reason Start Time Stop Time Status Last Admin Dose Admin Acetaminophen (Tylenol) 650 mg Q4H PRN GT Mild Pain/Temp > 100.5 05/16/17 15:45 06/15/17 15:44 Amlodipine Besylate (Norvasc) 2.5 mg BID GT 05/18/17 10:30 06/17/17 10:29 05/19/17 19:03 Cefepime HCl 2 gm/ Dextrose 55 ml @ 110 mls/hr DAILY IVPB 05/17/17 17:00 05/24/17 16:59 05/19/17 08:31 Clonidine HCl (Catapres Tab) 0.1 mg EVERY 6 HOURS PRN GT For High BP 160 syst & over 05/16/17 15:45 06/15/17 15:44 05/18/17 01:50 Dextrose (Dextrose 50%) STAT PRN IV Hypoglycemia 05/18/17 12:15 06/17/17 12:14 Docusate Sodium (Colace) 100 mg TID GT 05/19/17 13:00 06/18/17 12:59 05/19/17 18:54 Enoxaparin Sodium (Lovenox) 80 mg QPM SUBQ 05/18/17 16:30 06/17/17 16:29 05/19/17 17:40 Famotidine (Pepcid) 20 mg QPM GT 05/17/17 18:00 06/16/17 17:59 05/19/17 17:31 Insulin Aspart (NovoLOG) EVERY 6 HOURS SUBQ 05/18/17 13:00 06/17/17 12:59 05/19/17 18:47 Levetiracetam (Keppra) 500 mg BID GT 05/16/17 18:00 06/15/17 17:59 05/19/17 18:55 Metoclopramide HCl (Reglan) 5 mg EVERY 6 HOURS GT 05/19/17 12:00 06/18/17 11:59 05/19/17 18:55 Phenytoin (Dilantin) 100 mg BID GT 05/16/17 18:00 06/15/17 17:59 05/19/17 18:55 Vancomycin HCl (Vanco rx to dose) 1 ea DAILY PRN MISC Per rx protocol 05/17/17 14:15 06/16/17 14:14 Vancomycin HCl 1 gm/Dextrose 275 ml @ 183.708 mls/hr Q24H IVPB 05/17/17 17:00 05/22/17 16:59 05/19/17 17:33 Warfarin Sodium (Coumadin per pharmacy) 1 ea DAILY PRN MISC Per rx protocol 05/17/17 17:45 06/16/17 17:44 Ayala Forman M.D. May 19, 2017 19:34
[2017-05-19 20:00] VITALS: BP 146/79
[2017-05-20] VITALS (7 sets, daily range): BP systolic 102–170; BP diastolic 36–71
[2017-05-20] MEDS: NovoLOG Insulin Flexpen SUBQ SCH ×4 (00:49→16:47)
[2017-05-20 07:50] LABS: BASOPHILS % (AUTO) 0.5 % (0.0-2.0); EOSINOPHILS % (AUTO) 2.3 % (0.0-3.0); HEMATOCRIT 28.4 % (37.0-47.0); HEMOGLOBIN 9.4 G/DL (12.0-16.0); LYMPHOCYTES % (AUTO) 51.9 % (20.0-45.0); MEAN CORPUSCULAR VOLUME 99 FL (80-99); MONOCYTES % (AUTO) 7.5 % (1.0-10.0); NEUTROPHILS % (AUTO) 37.8 % (45.0-75.0); PLATELET COUNT 223 K/UL (150-450); RED BLOOD COUNT 2.85 M/UL (4.20-5.40); RED CELL DISTRIBUTION WIDTH 12.4 % (11.6-14.8); WHITE BLOOD COUNT 5.7 K/UL (4.8-10.8)
[2017-05-20 08:26] LABS: INR 1.2 (0.9-1.1)
[2017-05-20] MEDS: Docusate 100mg/10ml Liq GT SCH ×3 (08:26→16:52)
[2017-05-20 08:27] LABS: ALANINE AMINOTRANSFERASE 20 U/L (12-78); ALBUMIN 2.1 G/DL (3.4-5.0); ALBUMIN/GLOBULIN RATIO 0.3 (1.0-2.7); ALKALINE PHOSPHATASE 224 U/L (46-116); ANION GAP 11 mmol/L (5-15); ASPARTATE AMINO TRANSFERASE 28 U/L (15-37); BILIRUBIN,TOTAL 0.2 MG/DL (0.2-1.0); BLOOD UREA NITROGEN 23 mg/dL (7-18); CALCIUM 8.5 MG/DL (8.5-10.1); CARBON DIOXIDE 25 MMOL/L (21-32); CHLORIDE 107 MMOL/L (98-107); CREATININE 1.1 MG/DL (0.55-1.30); PHOSPHORUS 2.6 MG/DL (2.5-4.9); POTASSIUM 3.8 MMOL/L (3.5-5.1); SODIUM 143 MMOL/L (136-145)
[2017-05-20] MEDS: Cefepime HCl 2 GM in D5W 55 ML IVPB SCH (08:30)
[2017-05-20] MEDS: Phenytoin Susp 100mg/4ml GT SCH ×2 (08:30→16:52)
--- NOTE | 2017-05-20 10:06 | General Surgery Progress Note ---
General Surgery-Progress Note Subjective Additional Comments no acute events. stable. wound dressings okay. Objective Last 24 Hour Vital Signs Date Time Temp Pulse Resp B/P (MAP) Pulse Ox O2 Delivery O2 Flow Rate FiO2 05/20/17 08:30 87 170/67 05/20/17 04:00 98.2 19 19 148/68 96 Room Air 05/20/17 00:39 98.1 82 18 143/62 96 Room Air 05/19/17 20:00 97.7 86 18 146/79 96 Room Air 05/19/17 19:03 85 172/111 05/19/17 16:09 97.9 85 22 160/69 94 Room Air 05/19/17 12:48 20 100 Room Air 05/19/17 12:40 96.8 83 139/72 I&O Intake and Output 05/19/17 05/20/17 19:00 07:00 Intake Total 835 ml 810 ml Output Total 250 ml 800 ml Balance 585 ml 10 ml Free Water 120 ml 30 ml Tube Feeding 715 ml 780 ml Output Urine Total 250 ml 800 ml # Bowel Movements 1 2 Dressing: saturated Wound: clean Cardiovascular: RSR Respiratory: clear Abdomen: soft, non-tender, present bowel sounds Extremities: no tenderness Laboratory Tests Test 05/19/17 16:00 05/20/17 06:15 Vancomycin Level Trough 15.1 ug/mL (5.0-12.0) H White Blood Count 5.7 K/UL (4.8-10.8) Red Blood Count 2.85 M/UL (4.20-5.40) L Hemoglobin 9.4 G/DL (12.0-16.0) L Hematocrit 28.4 % (37.0-47.0) L Mean Corpuscular Volume 99 FL (80-99) Mean Corpuscular Hemoglobin 32.9 PG (27.0-31.0) H Mean Corpuscular Hemoglobin Concent 33.1 G/DL (32.0-36.0) Red Cell Distribution Width 12.4 % (11.6-14.8) Platelet Count 223 K/UL (150-450) Mean Platelet Volume 6.6 FL (6.5-10.1) Neutrophils (%) (Auto) 37.8 % (45.0-75.0) L Lymphocytes (%) (Auto) 51.9 % (20.0-45.0) H Monocytes (%) (Auto) 7.5 % (1.0-10.0) Eosinophils (%) (Auto) 2.3 % (0.0-3.0) Basophils (%) (Auto) 0.5 % (0.0-2.0) Prothrombin Time 12.9 SEC (9.30-11.50) H Prothromb Time International Ratio 1.2 (0.9-1.1) H Sodium Level 143 MMOL/L (136-145) Potassium Level 3.8 MMOL/L (3.5-5.1) Chloride Level 107 MMOL/L (98-107) Carbon Dioxide Level 25 MMOL/L (21-32) Anion Gap 11 mmol/L (5-15) Blood Urea Nitrogen 23 mg/dL (7-18) H Creatinine 1.1 MG/DL (0.55-1.30) Estimat Glomerular Filtration Rate mL/min (>60) Glucose Level 166 MG/DL (74-106) H Calcium Level 8.5 MG/DL (8.5-10.1) Phosphorus Level 2.6 MG/DL (2.5-4.9) Magnesium Level 1.9 MG/DL (1.8-2.4) Total Bilirubin 0.2 MG/DL (0.2-1.0) Aspartate Amino Transf (AST/SGOT) 28 U/L (15-37) Alanine Aminotransferase (ALT/SGPT) 20 U/L (12-78) Alkaline Phosphatase 224 U/L (46-116) H Total Protein 8.4 G/DL (6.4-8.2) H Albumin 2.1 G/DL (3.4-5.0) L Globulin 6.3 g/dL Albumin/Globulin Ratio 0.3 (1.0-2.7) L Plan Problems: (1) Heel ulcer Assessment & Plan: 81F with left feel decubitus ulcer. down to bone. jagdeepley pressure ulcer. no active signs of infection and some granulation tissue noted over wound. no necrotic or fibrinous tissue noted. MRI today agree with ID for MRI heel to ensure no osteo await final MRI results no surgical debridement necessary at this time. continue with dressings changes please ensure no pressure on wounds. turn frequently. keep padded with heel protectors. (2) Sacral decubitus ulcer, stage III Assessment & Plan: needs to keep off sacral decubitus ulcer. q2h turning. fortunately no debridement necessary at this time but could progress if not cared for. Taco Carter May 20, 2017 10:06
--- NOTE | 2017-05-20 10:27 | General Progress Note ---
Assessment/Plan Status: stable Status Narrative - Cough. Respiratory distress . impaction. - Hyperkalemia on presentation - deep vein thrombosis. - Diabetes mellitus. High A1c - Organic brain syndrome. - Functional quadriplegia. - Hypertension. - Seizures. - Anemia - HypoAlbuminemia - ? Lt heel Oste ID isuues: (1) Heel ulcer (2) Sacral decubitus ulcer, stage III (3) UTI (urinary tract infection) (4) Sepsis (5) Fever Assessment/Plan Plan: MRI of left heel antibiotics per Dr Forman IV Iron coumadin pharmacy Monitor BS Laxatives as needed antiSz meds per orders ? DC planning Subjective ROS Limited/Unobtainable: No Constitutional: Reports: malaise, weakness, other - nonverbal Allergies: Coded Allergies: No Known Allergies (Verified , 01/27/10) Objective Last 24 Hour Vital Signs Date Time Temp Pulse Resp B/P (MAP) Pulse Ox O2 Delivery O2 Flow Rate FiO2 05/20/17 08:30 87 170/67 05/20/17 08:00 97.7 85 21 170/67 99 05/20/17 04:00 98.2 19 19 148/68 96 Room Air 05/20/17 00:39 98.1 82 18 143/62 96 Room Air 05/19/17 20:00 97.7 86 18 146/79 96 Room Air 05/19/17 19:03 85 172/111 05/19/17 16:09 97.9 85 22 160/69 94 Room Air 05/19/17 12:48 20 100 Room Air 05/19/17 12:40 96.8 83 139/72 Intake and Output 05/19/17 05/20/17 19:00 07:00 Intake Total 835 ml 810 ml Output Total 250 ml 800 ml Balance 585 ml 10 ml Free Water 120 ml 30 ml Tube Feeding 715 ml 780 ml Output Urine Total 250 ml 800 ml # Bowel Movements 1 2 Laboratory Tests 05/19/17 16:00: Vancomycin Level Trough 15.1H 05/20/17 06:15: White Blood Count 5.7, Red Blood Count 2.85L, Hemoglobin 9.4L, Hematocrit 28.4L , Mean Corpuscular Volume 99, Mean Corpuscular Hemoglobin 32.9H, Mean Corpuscular Hemoglobin Concent 33.1, Red Cell Distribution Width 12.4, Platelet Count 223, Mean Platelet Volume 6.6, Neutrophils (%) (Auto) 37.8L, Lymphocytes ( %) (Auto) 51.9H, Monocytes (%) (Auto) 7.5, Eosinophils (%) (Auto) 2.3, Basophils (%) (Auto) 0.5, Prothrombin Time 12.9H, Prothromb Time International Ratio 1.2H, Sodium Level 143, Potassium Level 3.8, Chloride Level 107, Carbon Dioxide Level 25, Anion Gap 11, Blood Urea Nitrogen 23H, Creatinine 1.1, Estimat Glomerular Filtration Rate , Glucose Level 166H, Calcium Level 8.5, Phosphorus Level 2.6, Magnesium Level 1.9, Total Bilirubin 0.2, Aspartate Amino Transf (AST/SGOT) 28, Alanine Aminotransferase (ALT/SGPT) 20, Alkaline Phosphatase 224H, Total Protein 8.4H, Albumin 2.1L, Globulin 6.3, Albumin/ Globulin Ratio 0.3L Height (Feet): 5 Height (Inches): 4.00 Weight (Pounds): 179 General Appearance: no apparent distress, lethargic Neck: limited range of motion Cardiovascular: normal rate Respiratory/Chest: decreased breath sounds Abdomen: distended Objective no other changes GEORGE MONDRAGON May 20, 2017 10:27
[2017-05-20] MEDS ORDERED: Metoprolol Tartrate 12.5mg TAB GT ONE (11:00)
--- NOTE | 2017-05-20 12:59 | Pulmonology Progress Note ---
Assessment/Plan Problems: (1) Sepsis (2) Decubital ulcer (3) Diabetes (4) G tube feedings (5) Dementia Assessment/Plan improivng check cultures continue abx toleraing feeding Gtube site care check electrolytes Subjective ROS Limited/Unobtainable: Yes Allergies: Coded Allergies: No Known Allergies (Verified , 01/27/10) Objective Last 24 Hour Vital Signs Date Time Temp Pulse Resp B/P (MAP) Pulse Ox O2 Delivery O2 Flow Rate FiO2 05/20/17 12:00 97.7 80 21 170/71 99 05/20/17 11:03 87 170/67 05/20/17 08:30 87 170/67 05/20/17 08:00 97.7 85 21 170/67 99 05/20/17 04:00 98.2 19 19 148/68 96 Room Air 05/20/17 00:39 98.1 82 18 143/62 96 Room Air 05/19/17 20:00 97.7 86 18 146/79 96 Room Air 05/19/17 19:03 85 172/111 05/19/17 16:09 97.9 85 22 160/69 94 Room Air Intake and Output 05/19/17 05/20/17 19:00 07:00 Intake Total 835 ml 810 ml Output Total 250 ml 800 ml Balance 585 ml 10 ml Free Water 120 ml 30 ml Tube Feeding 715 ml 780 ml Output Urine Total 250 ml 800 ml # Bowel Movements 1 2 Objective General Appearance: WD/WN HEENT: normocephalic, atraumatic Respiratory/Chest: chest wall non-tender, lungs clear Cardiovascular: normal peripheral pulses, normal rate Abdomen: normal bowel sounds, soft, non tender Genitourinary: normal external genitalia Extremities: no cyanosis Neurologic/Psychiatric: 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 detail representative II-XII grossly normal, no motor/sensory deficits Lymphatic: no neck adenopathy Laboratory Tests 05/19/17 16:00: Vancomycin Level Trough 15.1H 05/20/17 06:15: White Blood Count 5.7, Red Blood Count 2.85L, Hemoglobin 9.4L, Hematocrit 28.4L , Mean Corpuscular Volume 99, Mean Corpuscular Hemoglobin 32.9H, Mean Corpuscular Hemoglobin Concent 33.1, Red Cell Distribution Width 12.4, Platelet Count 223, Mean Platelet Volume 6.6, Neutrophils (%) (Auto) 37.8L, Lymphocytes ( %) (Auto) 51.9H, Monocytes (%) (Auto) 7.5, Eosinophils (%) (Auto) 2.3, Basophils (%) (Auto) 0.5, Prothrombin Time 12.9H, Prothromb Time International Ratio 1.2H, Sodium Level 143, Potassium Level 3.8, Chloride Level 107, Carbon Dioxide Level 25, Anion Gap 11, Blood Urea Nitrogen 23H, Creatinine 1.1, Estimat Glomerular Filtration Rate , Glucose Level 166H, Calcium Level 8.5, Phosphorus Level 2.6, Magnesium Level 1.9, Total Bilirubin 0.2, Aspartate Amino Transf (AST/SGOT) 28, Alanine Aminotransferase (ALT/SGPT) 20, Alkaline Phosphatase 224H, Total Protein 8.4H, Albumin 2.1L, Globulin 6.3, Albumin/ Globulin Ratio 0.3L Current Medications Medications (Trade) Dose Ordered Sig/Nancy Route PRN Reason Start Time Stop Time Status Last Admin Dose Admin Acetaminophen (Tylenol) 650 mg Q4H PRN GT Mild Pain/Temp > 100.5 05/16/17 15:45 06/15/17 15:44 Amlodipine Besylate (Norvasc) 5 mg BID GT 05/20/17 18:00 06/19/17 17:59 Cefepime HCl 2 gm/ Dextrose 55 ml @ 110 mls/hr DAILY IVPB 05/17/17 17:00 05/24/17 16:59 05/20/17 08:30 Clonidine HCl (Catapres Tab) 0.1 mg EVERY 6 HOURS PRN GT For High BP 160 syst & over 05/16/17 15:45 06/15/17 15:44 05/18/17 01:50 Dextrose (Dextrose 50%) STAT PRN IV Hypoglycemia 05/18/17 12:15 06/17/17 12:14 Docusate Sodium (Colace) 100 mg TID GT 05/19/17 13:00 06/18/17 12:59 05/20/17 12:49 Enoxaparin Sodium (Lovenox) 80 mg QPM SUBQ 05/18/17 16:30 06/17/17 16:29 05/19/17 17:40 Famotidine (Pepcid) 20 mg BID GT 05/20/17 18:00 06/16/17 17:59 Insulin Aspart (NovoLOG) EVERY 6 HOURS SUBQ 05/18/17 13:00 06/17/17 12:59 05/20/17 12:47 Iron Sucrose 200 mg/Sodium Chloride 120 ml @ 240 mls/hr ONCE ONCE IV 05/20/17 13:00 05/20/17 13:29 Levetiracetam (Keppra) 500 mg BID GT 05/16/17 18:00 06/15/17 17:59 05/20/17 08:30 Metoclopramide HCl (Reglan) 5 mg EVERY 6 HOURS GT 05/19/17 12:00 06/18/17 11:59 05/20/17 12:49 Metoprolol Tartrate (Lopressor) 12.5 mg Q12HR GT 05/20/17 21:00 06/19/17 20:59 Phenytoin (Dilantin) 100 mg BID GT 05/16/17 18:00 06/15/17 17:59 05/20/17 08:30 Vancomycin HCl (Vanco rx to dose) 1 ea DAILY PRN MISC Per rx protocol 05/17/17 14:15 06/16/17 14:14 Vancomycin HCl 1 gm/Dextrose 275 ml @ 183.708 mls/hr Q24H IVPB 05/17/17 17:00 05/22/17 16:59 05/19/17 17:33 Warfarin Sodium (Coumadin per pharmacy) 1 ea DAILY PRN MISC Per rx protocol 05/17/17 17:45 06/16/17 17:44 Warfarin Sodium (Coumadin) 7.5 mg ONCE ONCE ORAL 05/20/17 17:00 05/20/17 17:01 TREY BEE May 20, 2017 12:59
[2017-05-20] MEDS ORDERED: Iron Sucrose 200 MG in NS 110 ML IV ONE (13:00)
--- NOTE | 2017-05-20 14:56 | Infectious Diseases Prog Note ---
Assessment/Plan Problems: (1) Heel ulcer Assessment & Plan: on the left heel , possible underlying osteomyelitis, with elevated ESR and X ray result of the left heel , continue vancomycin with cefepime empiric coverage , and local wound care . await MRI of the left heel to confirm , wound culture grew staph aureus . (2) Sacral decubitus ulcer, stage III Assessment & Plan: keep off loading and continue local wound care (3) UTI (urinary tract infection) Assessment & Plan: on cefepime empirically, pending urine culture results (4) Sepsis Assessment & Plan: due to the above , await blood culture and continue vancomycin with cefepime empirically (5) Fever Assessment & Plan: due to the above, await blood culture to rule out bacteremia and continue vancomycin with cefepime empirically Subjective ROS Limited/Unobtainable: Yes Allergies: Coded Allergies: No Known Allergies (Verified , 01/27/10) Subjective she was comfortable , lying in bed, alert, nonverbal, not in distress, afebrile Objective Vital Signs Last 24 Hour Vital Signs Date Time Temp Pulse Resp B/P (MAP) Pulse Ox O2 Delivery O2 Flow Rate FiO2 05/20/17 12:00 97.7 80 21 170/71 99 05/20/17 11:03 87 170/67 05/20/17 08:30 87 170/67 05/20/17 08:00 97.7 85 21 170/67 99 05/20/17 04:00 98.2 19 19 148/68 96 Room Air 05/20/17 00:39 98.1 82 18 143/62 96 Room Air 05/19/17 20:00 97.7 86 18 146/79 96 Room Air 05/19/17 19:03 85 172/111 05/19/17 16:09 97.9 85 22 160/69 94 Room Air Height (Feet): 5 Height (Inches): 4.00 Weight (Pounds): 179 General Appearance: WD/WN, no acute distress HEENT: normocephalic, atraumatic, anicteric, mucous membranes moist Respiratory/Chest: chest wall non-tender, lungs clear, normal breath sounds, no respiratory distress, no accessory muscle use, decreased breath sounds Cardiovascular: normal peripheral pulses, normal rate, regular rhythm, no gallop/murmur, no JVD Abdomen: normal bowel sounds, soft, non tender, no organomegaly, non distended , no mass, no scars Extremities: no cyanosis, no clubbing, other - left heel wound Skin: no rash, no lesions, ulcers Neurologic/Psychiatric: alert Lymphatic: no neck adenopathy, no groin adenopathy Laboratory Tests Test 05/19/17 16:00 05/20/17 06:15 Vancomycin Level Trough 15.1 ug/mL (5.0-12.0) H White Blood Count 5.7 K/UL (4.8-10.8) Red Blood Count 2.85 M/UL (4.20-5.40) L Hemoglobin 9.4 G/DL (12.0-16.0) L Hematocrit 28.4 % (37.0-47.0) L Mean Corpuscular Volume 99 FL (80-99) Mean Corpuscular Hemoglobin 32.9 PG (27.0-31.0) H Mean Corpuscular Hemoglobin Concent 33.1 G/DL (32.0-36.0) Red Cell Distribution Width 12.4 % (11.6-14.8) Platelet Count 223 K/UL (150-450) Mean Platelet Volume 6.6 FL (6.5-10.1) Neutrophils (%) (Auto) 37.8 % (45.0-75.0) L Lymphocytes (%) (Auto) 51.9 % (20.0-45.0) H Monocytes (%) (Auto) 7.5 % (1.0-10.0) Eosinophils (%) (Auto) 2.3 % (0.0-3.0) Basophils (%) (Auto) 0.5 % (0.0-2.0) Prothrombin Time 12.9 SEC (9.30-11.50) H Prothromb Time International Ratio 1.2 (0.9-1.1) H Sodium Level 143 MMOL/L (136-145) Potassium Level 3.8 MMOL/L (3.5-5.1) Chloride Level 107 MMOL/L (98-107) Carbon Dioxide Level 25 MMOL/L (21-32) Anion Gap 11 mmol/L (5-15) Blood Urea Nitrogen 23 mg/dL (7-18) H Creatinine 1.1 MG/DL (0.55-1.30) Estimat Glomerular Filtration Rate mL/min (>60) Glucose Level 166 MG/DL (74-106) H Calcium Level 8.5 MG/DL (8.5-10.1) Phosphorus Level 2.6 MG/DL (2.5-4.9) Magnesium Level 1.9 MG/DL (1.8-2.4) Total Bilirubin 0.2 MG/DL (0.2-1.0) Aspartate Amino Transf (AST/SGOT) 28 U/L (15-37) Alanine Aminotransferase (ALT/SGPT) 20 U/L (12-78) Alkaline Phosphatase 224 U/L (46-116) H Total Protein 8.4 G/DL (6.4-8.2) H Albumin 2.1 G/DL (3.4-5.0) L Globulin 6.3 g/dL Albumin/Globulin Ratio 0.3 (1.0-2.7) L Current Medications Medications (Trade) Dose Ordered Sig/Nancy Route PRN Reason Start Time Stop Time Status Last Admin Dose Admin Acetaminophen (Tylenol) 650 mg Q4H PRN GT Mild Pain/Temp > 100.5 05/16/17 15:45 06/15/17 15:44 Amlodipine Besylate (Norvasc) 5 mg BID GT 05/20/17 18:00 06/19/17 17:59 Cefepime HCl 2 gm/ Dextrose 55 ml @ 110 mls/hr DAILY IVPB 05/17/17 17:00 05/24/17 16:59 05/20/17 08:30 Clonidine HCl (Catapres Tab) 0.1 mg EVERY 6 HOURS PRN GT For High BP 160 syst & over 05/16/17 15:45 06/15/17 15:44 05/18/17 01:50 Dextrose (Dextrose 50%) STAT PRN IV Hypoglycemia 05/18/17 12:15 06/17/17 12:14 Docusate Sodium (Colace) 100 mg TID GT 05/19/17 13:00 06/18/17 12:59 05/20/17 12:49 Enoxaparin Sodium (Lovenox) 80 mg QPM SUBQ 05/18/17 16:30 06/17/17 16:29 05/19/17 17:40 Famotidine (Pepcid) 20 mg BID GT 05/20/17 18:00 06/16/17 17:59 Insulin Aspart (NovoLOG) EVERY 6 HOURS SUBQ 05/18/17 13:00 06/17/17 12:59 05/20/17 12:47 Levetiracetam (Keppra) 500 mg BID GT 05/16/17 18:00 06/15/17 17:59 05/20/17 08:30 Metoclopramide HCl (Reglan) 5 mg EVERY 6 HOURS GT 05/19/17 12:00 06/18/17 11:59 05/20/17 12:49 Metoprolol Tartrate (Lopressor) 12.5 mg Q12HR GT 05/20/17 21:00 06/19/17 20:59 Phenytoin (Dilantin) 100 mg BID GT 05/16/17 18:00 06/15/17 17:59 05/20/17 08:30 Vancomycin HCl (Vanco rx to dose) 1 ea DAILY PRN MISC Per rx protocol 05/17/17 14:15 06/16/17 14:14 Vancomycin HCl 1 gm/Dextrose 275 ml @ 183.708 mls/hr Q24H IVPB 05/17/17 17:00 05/22/17 16:59 05/19/17 17:33 Warfarin Sodium (Coumadin per pharmacy) 1 ea DAILY PRN MISC Per rx protocol 05/17/17 17:45 06/16/17 17:44 Warfarin Sodium (Coumadin) 7.5 mg ONCE ONCE ORAL 05/20/17 17:00 05/20/17 17:01 Ayala Forman M.D. May 20, 2017 14:56
[2017-05-20] MEDS: Enoxaparin 80mg Inj SUBQ SCH (16:48)
[2017-05-20] MEDS: Vancomycin 1gm in D5W 275ml IVPB SCH (16:49)
[2017-05-20] MEDS ORDERED: Warfarin Sodium 7.5mg ORAL ONE (17:00)
[2017-05-20] MEDS: Metoprolol Tartrate 12.5mg TAB GT SCH (20:16)
[2017-05-21 00:19] VITALS: BP 158/83
[2017-05-21] MEDS: NovoLOG Insulin Flexpen SUBQ SCH ×5 (00:37→23:57)
[2017-05-21 04:00] VITALS: BP 149/86
[2017-05-21 07:20] LABS: BASOPHILS % (AUTO) 0.6 % (0.0-2.0); EOSINOPHILS % (AUTO) 1.9 % (0.0-3.0); HEMATOCRIT 28.9 % (37.0-47.0); HEMOGLOBIN 9.3 G/DL (12.0-16.0); LYMPHOCYTES % (AUTO) 49.4 % (20.0-45.0); MEAN CORPUSCULAR VOLUME 101 FL (80-99); MONOCYTES % (AUTO) 8.6 % (1.0-10.0); NEUTROPHILS % (AUTO) 39.5 % (45.0-75.0); PLATELET COUNT 238 K/UL (150-450); RED BLOOD COUNT 2.88 M/UL (4.20-5.40); RED CELL DISTRIBUTION WIDTH 13.2 % (11.6-14.8); WHITE BLOOD COUNT 6.3 K/UL (4.8-10.8)
[2017-05-21 07:47] LABS: INR 1.3 (0.9-1.1)
[2017-05-21 08:00] VITALS: BP 164/87
[2017-05-21 08:06] LABS: ALANINE AMINOTRANSFERASE 25 U/L (12-78); ALBUMIN 2.2 G/DL (3.4-5.0); ALBUMIN/GLOBULIN RATIO 0.3 (1.0-2.7); ALKALINE PHOSPHATASE 231 U/L (46-116); ANION GAP 12 mmol/L (5-15); ASPARTATE AMINO TRANSFERASE 32 U/L (15-37); BILIRUBIN,TOTAL 0.2 MG/DL (0.2-1.0); BLOOD UREA NITROGEN 26 mg/dL (7-18); CALCIUM 8.9 MG/DL (8.5-10.1); CARBON DIOXIDE 25 MMOL/L (21-32); CHLORIDE 107 MMOL/L (98-107); PHOSPHORUS 2.8 MG/DL (2.5-4.9); POTASSIUM 4.2 MMOL/L (3.5-5.1); SODIUM 144 MMOL/L (136-145)
[2017-05-21] MEDS: Phenytoin Susp 100mg/4ml GT SCH ×2 (08:18→18:39)
[2017-05-21] MEDS: Docusate 100mg/10ml Liq GT SCH ×3 (08:18→18:39)
[2017-05-21] MEDS: Cefepime HCl 2 GM in D5W 55 ML IVPB SCH (08:19)
[2017-05-21] MEDS: Metoprolol Tartrate 12.5mg TAB GT SCH ×2 (08:26→20:14)
--- NOTE | 2017-05-21 10:04 | Diagnostic Imaging Report ---
Indication: Acute osteomyelitis Technique: Left ankle/hindfoot imaging utilizing multiplanar T1 fast spin-echo, proton and T2 fast spin-echo with fat saturation, and STIR. Comparison: None Findings: There is marked abnormal T1 hypointensity and T2 hyperintensity along the posterior aspect of the calcaneus. Much of the posterior part of the calcaneus is eroded as is the overlying subcutaneous soft tissues from chronic inflammation and osteomyelitis. There is no abscess identified. Moderate skin ulceration noted which should be obvious clinically. No joint effusion seen. Some motion artifact limits evaluation. IMPRESSION: Severe acute osteomyelitis suspected within the posterior calcaneus
[2017-05-21 11:30] VITALS: BP 164/75
--- NOTE | 2017-05-21 13:45 | General Progress Note ---
Assessment/Plan Status: stable Status Narrative - Cough. Respiratory distress . impaction. - Hyperkalemia on presentation - deep vein thrombosis. - Diabetes mellitus. High A1c - Organic brain syndrome. - Functional quadriplegia. - Hypertension. - Seizures. - Anemia - HypoAlbuminemia - ? Lt heel Oste , now proven by MR ARSALAN hart: (1) Heel ulcer (2) Sacral decubitus ulcer, stage III (3) UTI (urinary tract infection) (4) Sepsis (5) Fever Assessment/Plan Plan: PICC line LELA MRI of left heel antibiotics per Dr Forman IV Iron coumadin pharmacy Monitor BS Laxatives as needed antiSz meds per orders ? DC planning Subjective ROS Limited/Unobtainable: No Constitutional: Reports: malaise, weakness, other - non verbal Allergies: Coded Allergies: No Known Allergies (Verified , 01/27/10) Objective Last 24 Hour Vital Signs Date Time Temp Pulse Resp B/P (MAP) Pulse Ox O2 Delivery O2 Flow Rate FiO2 05/21/17 11:30 98.2 79 22 164/75 99 05/21/17 08:26 89 164/78 05/21/17 08:18 78 149/86 05/21/17 08:00 97.9 82 21 164/87 94 05/21/17 05:32 Room Air 05/21/17 04:00 97.8 78 21 149/86 98 Room Air 05/21/17 00:19 97.5 81 20 158/83 97 Room Air 05/20/17 20:16 77 98/45 05/20/17 20:13 98.1 77 20 102/36 97 Room Air 05/20/17 18:31 98.2 76 20 137/62 98 05/20/17 16:53 80 170/71 05/20/17 16:00 98.2 76 20 137/62 98 Intake and Output 05/20/17 05/21/17 19:00 07:00 Intake Total 505 ml 830 ml Output Total 650 ml 700 ml Balance -145 ml 130 ml Free Water 50 ml 50 ml Tube Feeding 455 ml 780 ml Output Urine Total 650 ml 700 ml # Bowel Movements 1 Laboratory Tests 05/21/17 06:05: White Blood Count 6.3, Red Blood Count 2.88L, Hemoglobin 9.3L, Hematocrit 28.9L , Mean Corpuscular Volume 101H, Mean Corpuscular Hemoglobin 32.5H, Mean Corpuscular Hemoglobin Concent 32.3, Red Cell Distribution Width 13.2, Platelet Count 238, Mean Platelet Volume 7.0, Neutrophils (%) (Auto) 39.5L, Lymphocytes ( %) (Auto) 49.4H, Monocytes (%) (Auto) 8.6, Eosinophils (%) (Auto) 1.9, Basophils (%) (Auto) 0.6, Prothrombin Time 13.9H, Prothromb Time International Ratio 1.3H, Sodium Level 144, Potassium Level 4.2, Chloride Level 107, Carbon Dioxide Level 25, Anion Gap 12, Blood Urea Nitrogen 26H, Creatinine 1.0, Estimat Glomerular Filtration Rate , Glucose Level 145H, Calcium Level 8.9, Phosphorus Level 2.8, Magnesium Level 2.0, Total Bilirubin 0.2, Aspartate Amino Transf (AST/SGOT) 32, Alanine Aminotransferase (ALT/SGPT) 25, Alkaline Phosphatase 231H, C-Reactive Protein, Quantitative 7.7H, Total Protein 8.9H, Albumin 2.2L, Globulin 6.7, Albumin/Globulin Ratio 0.3L Height (Feet): 5 Height (Inches): 4.00 Weight (Pounds): 179 General Appearance: no apparent distress, lethargic, other - non verbal Neck: limited range of motion Cardiovascular: normal rate Respiratory/Chest: decreased breath sounds Abdomen: soft Objective no other changes GEORGE MONDRAGON May 21, 2017 13:45
[2017-05-21] MEDS ORDERED: Metoprolol Tartrate 12.5mg TAB GT ONE (14:15)
[2017-05-21] MEDS: Heparin 2000 units/Ns 1000ml INJ SCH (14:30)
[2017-05-21] MEDS: Lidocaine 1% Plain 30 ml INJ SCH (14:30)
--- NOTE | 2017-05-21 15:12 | Infectious Diseases Prog Note ---
Assessment/Plan Problems: (1) Heel ulcer Assessment & Plan: on the left heel , with acute osteomyelitis, and elevated ESR , wound culture grew MSSA and Enterococcus Faecalis , will need vancomycin for 6 weeks. continue local wound care . EOT 06/28/17 . (2) Sacral decubitus ulcer, stage III Assessment & Plan: keep off loading and continue local wound care (3) UTI (urinary tract infection) Assessment & Plan: on cefepime empirically, urine culture showed no grwoth , will stop cefepime (4) Sepsis Assessment & Plan: due to the above , blood culture remained negative , on vancomycin with cefepime empirically (5) Fever Assessment & Plan: resolved, due to the above, no evidence of bacteremia , continue vancomycin for left heel osteomyelitis Subjective ROS Limited/Unobtainable: Yes Allergies: Coded Allergies: No Known Allergies (Verified , 01/27/10) Subjective she was comfortable , lying in bed, quiet, unresponsive , nonverbal, not in distress, afebrile Objective Vital Signs Last 24 Hour Vital Signs Date Time Temp Pulse Resp B/P (MAP) Pulse Ox O2 Delivery O2 Flow Rate FiO2 05/21/17 14:36 79 164/75 05/21/17 11:30 98.2 79 22 164/75 99 05/21/17 08:26 89 164/78 05/21/17 08:18 78 149/86 05/21/17 08:00 97.9 82 21 164/87 94 05/21/17 05:32 Room Air 05/21/17 04:00 97.8 78 21 149/86 98 Room Air 05/21/17 00:19 97.5 81 20 158/83 97 Room Air 05/20/17 20:16 77 98/45 05/20/17 20:13 98.1 77 20 102/36 97 Room Air 05/20/17 18:31 98.2 76 20 137/62 98 05/20/17 16:53 80 170/71 05/20/17 16:00 98.2 76 20 137/62 98 Height (Feet): 5 Height (Inches): 4.00 Weight (Pounds): 179 General Appearance: WD/WN, no acute distress HEENT: normocephalic, atraumatic, anicteric, mucous membranes moist, PERRL Respiratory/Chest: chest wall non-tender, lungs clear, normal breath sounds, no respiratory distress, no accessory muscle use, decreased breath sounds Cardiovascular: normal peripheral pulses, normal rate, regular rhythm, no gallop/murmur, no JVD Abdomen: normal bowel sounds, soft, non tender, no organomegaly, non distended , no mass, no scars Extremities: no cyanosis, no clubbing Skin: no rash, no lesions, ulcers Neurologic/Psychiatric: unresponsiveness Lymphatic: no neck adenopathy, no groin adenopathy Laboratory Tests Test 05/21/17 06:05 White Blood Count 6.3 K/UL (4.8-10.8) Red Blood Count 2.88 M/UL (4.20-5.40) L Hemoglobin 9.3 G/DL (12.0-16.0) L Hematocrit 28.9 % (37.0-47.0) L Mean Corpuscular Volume 101 FL (80-99) H Mean Corpuscular Hemoglobin 32.5 PG (27.0-31.0) H Mean Corpuscular Hemoglobin Concent 32.3 G/DL (32.0-36.0) Red Cell Distribution Width 13.2 % (11.6-14.8) Platelet Count 238 K/UL (150-450) Mean Platelet Volume 7.0 FL (6.5-10.1) Neutrophils (%) (Auto) 39.5 % (45.0-75.0) L Lymphocytes (%) (Auto) 49.4 % (20.0-45.0) H Monocytes (%) (Auto) 8.6 % (1.0-10.0) Eosinophils (%) (Auto) 1.9 % (0.0-3.0) Basophils (%) (Auto) 0.6 % (0.0-2.0) Prothrombin Time 13.9 SEC (9.30-11.50) H Prothromb Time International Ratio 1.3 (0.9-1.1) H Sodium Level 144 MMOL/L (136-145) Potassium Level 4.2 MMOL/L (3.5-5.1) Chloride Level 107 MMOL/L (98-107) Carbon Dioxide Level 25 MMOL/L (21-32) Anion Gap 12 mmol/L (5-15) Blood Urea Nitrogen 26 mg/dL (7-18) H Creatinine 1.0 MG/DL (0.55-1.30) Estimat Glomerular Filtration Rate mL/min (>60) Glucose Level 145 MG/DL (74-106) H Calcium Level 8.9 MG/DL (8.5-10.1) Phosphorus Level 2.8 MG/DL (2.5-4.9) Magnesium Level 2.0 MG/DL (1.8-2.4) Total Bilirubin 0.2 MG/DL (0.2-1.0) Aspartate Amino Transf (AST/SGOT) 32 U/L (15-37) Alanine Aminotransferase (ALT/SGPT) 25 U/L (12-78) Alkaline Phosphatase 231 U/L (46-116) H C-Reactive Protein, Quantitative 7.7 mg/dL (0.00-0.90) H Total Protein 8.9 G/DL (6.4-8.2) H Albumin 2.2 G/DL (3.4-5.0) L Globulin 6.7 g/dL Albumin/Globulin Ratio 0.3 (1.0-2.7) L Current Medications Medications (Trade) Dose Ordered Sig/Nancy Route PRN Reason Start Time Stop Time Status Last Admin Dose Admin Acetaminophen (Tylenol) 650 mg Q4H PRN GT Mild Pain/Temp > 100.5 05/16/17 15:45 06/15/17 15:44 Amlodipine Besylate (Norvasc) 5 mg BID GT 05/20/17 18:00 06/19/17 17:59 05/21/17 08:18 Cefepime HCl 2 gm/ Dextrose 55 ml @ 110 mls/hr DAILY IVPB 05/17/17 17:00 05/24/17 16:59 05/21/17 08:19 Chlorhexidine Gluconate (Jossy-Hex 2%) 1 applic QD@2000 TOPIC 05/21/17 20:00 06/20/17 19:59 UNV Clonidine HCl (Catapres Tab) 0.1 mg EVERY 6 HOURS PRN GT For High BP 160 syst & over 05/16/17 15:45 06/15/17 15:44 05/18/17 01:50 Dextrose (Dextrose 50%) STAT PRN IV Hypoglycemia 05/18/17 12:15 06/17/17 12:14 Docusate Sodium (Colace) 100 mg TID GT 05/19/17 13:00 06/18/17 12:59 05/21/17 13:14 Enoxaparin Sodium (Lovenox) 80 mg QPM SUBQ 05/18/17 16:30 06/17/17 16:29 05/20/17 16:48 Famotidine (Pepcid) 20 mg BID GT 05/20/17 18:00 06/16/17 17:59 05/21/17 08:26 Heparin Sodium/ Sodium Chloride (Heparin 2000 units/Ns 1000ml premix) 2,000 unit ONCE ONCE INJ 05/21/17 14:30 05/21/17 14:31 UNV Insulin Aspart (NovoLOG) EVERY 6 HOURS SUBQ 05/18/17 13:00 06/17/17 12:59 05/21/17 14:01 Levetiracetam (Keppra) 500 mg BID GT 05/16/17 18:00 06/15/17 17:59 05/21/17 08:18 Lidocaine HCl (Xylocaine 1% 30ml) 30 ml ONCE ONCE INJ 05/21/17 14:30 05/21/17 14:31 UNV Metoclopramide HCl (Reglan) 5 mg EVERY 6 HOURS GT 05/19/17 12:00 06/18/17 11:59 05/21/17 13:14 Metoprolol Tartrate (Lopressor) 25 mg Q12HR GT 05/21/17 21:00 06/20/17 20:59 Phenytoin (Dilantin) 100 mg BID GT 05/16/17 18:00 06/15/17 17:59 05/21/17 08:18 Vancomycin HCl (Vanco rx to dose) 1 ea DAILY PRN MISC Per rx protocol 05/17/17 14:15 06/16/17 14:14 Vancomycin HCl 1 gm/Dextrose 275 ml @ 183.708 mls/hr Q24H IVPB 05/17/17 17:00 05/22/17 16:59 05/20/17 16:49 Warfarin Sodium (Coumadin per pharmacy) 1 ea DAILY PRN MISC Per rx protocol 05/17/17 17:45 06/16/17 17:44 Warfarin Sodium (Coumadin) 5 mg COUMADIN ONCE ORAL 05/21/17 17:00 05/21/17 17:01 Ayala Forman M.D. 16, 2018 15:12
[2017-05-21 16:05] VITALS: BP 157/118
[2017-05-21] MEDS: Enoxaparin 80mg Inj SUBQ SCH (16:27)
[2017-05-21] MEDS ORDERED: Warfarin Sodium 5mg ORAL ONE (17:00)
[2017-05-21] MEDS: Vancomycin 1gm in D5W 275ml IVPB SCH (18:34)
--- NOTE | 2017-05-21 19:56 | Pulmonology Progress Note ---
Assessment/Plan Problems: (1) Sepsis (2) Decubital ulcer (3) Diabetes (4) G tube feedings (5) Dementia Assessment/Plan improivng check cultures continue abx toleraing feeding Gtube site care check electrolytes all noted, no new complains Subjective ROS Limited/Unobtainable: No Allergies: Coded Allergies: No Known Allergies (Verified , 01/27/10) Objective Last 24 Hour Vital Signs Date Time Temp Pulse Resp B/P (MAP) Pulse Ox O2 Delivery O2 Flow Rate FiO2 05/21/17 18:39 71 157/118 05/21/17 16:05 98.0 71 20 157/118 95 05/21/17 14:36 79 164/75 05/21/17 11:30 98.2 79 22 164/75 99 05/21/17 08:26 89 164/78 05/21/17 08:18 78 149/86 05/21/17 08:00 97.9 82 21 164/87 94 05/21/17 05:32 Room Air 05/21/17 04:00 97.8 78 21 149/86 98 Room Air 05/21/17 00:19 97.5 81 20 158/83 97 Room Air 05/20/17 20:16 77 98/45 05/20/17 20:13 98.1 77 20 102/36 97 Room Air Intake and Output 05/20/17 05/21/17 19:00 07:00 Intake Total 505 ml 830 ml Output Total 650 ml 700 ml Balance -145 ml 130 ml Free Water 50 ml 50 ml Tube Feeding 455 ml 780 ml Output Urine Total 650 ml 700 ml # Bowel Movements 1 Objective General Appearance: WD/WN HEENT: normocephalic, atraumatic Respiratory/Chest: chest wall non-tender, lungs clear Cardiovascular: normal peripheral pulses, normal rate Abdomen: normal bowel sounds, soft, non tender Genitourinary: normal external genitalia Extremities: no cyanosis Neurologic/Psychiatric: thermal cutter hand II-XII grossly normal, no motor/sensory deficits Lymphatic: no neck adenopathy Laboratory Tests 05/21/17 06:05: White Blood Count 6.3, Red Blood Count 2.88L, Hemoglobin 9.3L, Hematocrit 28.9L , Mean Corpuscular Volume 101H, Mean Corpuscular Hemoglobin 32.5H, Mean Corpuscular Hemoglobin Concent 32.3, Red Cell Distribution Width 13.2, Platelet Count 238, Mean Platelet Volume 7.0, Neutrophils (%) (Auto) 39.5L, Lymphocytes ( %) (Auto) 49.4H, Monocytes (%) (Auto) 8.6, Eosinophils (%) (Auto) 1.9, Basophils (%) (Auto) 0.6, Prothrombin Time 13.9H, Prothromb Time International Ratio 1.3H, Sodium Level 144, Potassium Level 4.2, Chloride Level 107, Carbon Dioxide Level 25, Anion Gap 12, Blood Urea Nitrogen 26H, Creatinine 1.0, Estimat Glomerular Filtration Rate , Glucose Level 145H, Calcium Level 8.9, Phosphorus Level 2.8, Magnesium Level 2.0, Total Bilirubin 0.2, Aspartate Amino Transf (AST/SGOT) 32, Alanine Aminotransferase (ALT/SGPT) 25, Alkaline Phosphatase 231H, C-Reactive Protein, Quantitative 7.7H, Total Protein 8.9H, Albumin 2.2L, Globulin 6.7, Albumin/Globulin Ratio 0.3L Current Medications Medications (Trade) Dose Ordered Sig/Nancy Route PRN Reason Start Time Stop Time Status Last Admin Dose Admin Acetaminophen (Tylenol) 650 mg Q4H PRN GT Mild Pain/Temp > 100.5 05/16/17 15:45 06/15/17 15:44 Amlodipine Besylate (Norvasc) 5 mg BID GT 05/20/17 18:00 06/19/17 17:59 05/21/17 18:39 Chlorhexidine Gluconate (Jossy-Hex 2%) 1 applic DAILY@2000 TOPIC 05/21/17 20:00 06/20/17 19:59 Clonidine HCl (Catapres Tab) 0.1 mg EVERY 6 HOURS PRN GT For High BP 160 syst & over 05/16/17 15:45 06/15/17 15:44 05/18/17 01:50 Dextrose (Dextrose 50%) STAT PRN IV Hypoglycemia 05/18/17 12:15 06/17/17 12:14 Docusate Sodium (Colace) 100 mg TID GT 05/19/17 13:00 06/18/17 12:59 05/21/17 18:39 Enoxaparin Sodium (Lovenox) 80 mg QPM SUBQ 05/18/17 16:30 06/17/17 16:29 05/21/17 16:27 Famotidine (Pepcid) 20 mg BID GT 05/20/17 18:00 06/16/17 17:59 05/21/17 18:39 Heparin Sodium/ Sodium Chloride (Heparin 2000 units/Ns 1000ml premix) 2,000 unit ONCE INJ 05/21/17 14:30 05/22/17 23:59 Insulin Aspart (NovoLOG) EVERY 6 HOURS SUBQ 05/18/17 13:00 06/17/17 12:59 05/21/17 18:44 Levetiracetam (Keppra) 500 mg BID GT 05/16/17 18:00 06/15/17 17:59 05/21/17 18:39 Lidocaine HCl (Xylocaine 1% 30ml) 30 ml ONCE INJ 05/21/17 14:30 05/22/17 23:59 Metoclopramide HCl (Reglan) 5 mg EVERY 6 HOURS GT 05/19/17 12:00 06/18/17 11:59 05/21/17 18:39 Metoprolol Tartrate (Lopressor) 25 mg Q12HR GT 05/21/17 21:00 06/20/17 20:59 Phenytoin (Dilantin) 100 mg BID GT 05/16/17 18:00 06/15/17 17:59 05/21/17 18:39 Vancomycin HCl (Vanco rx to dose) 1 ea DAILY PRN MISC Per rx protocol 05/17/17 14:15 06/16/17 14:14 Vancomycin HCl 1 gm/Dextrose 275 ml @ 183.708 mls/hr Q24H IVPB 05/17/17 17:00 05/28/17 16:59 05/21/17 18:34 Warfarin Sodium (Coumadin per pharmacy) 1 ea DAILY PRN MISC Per rx protocol 05/17/17 17:45 06/16/17 17:44 TREY BEE May 21, 2017 19:56
[2017-05-21] MEDS ORDERED: Dyna-Hex 2% Top Sol 2oz TOPIC SCH (20:00)
[2017-05-21 20:15] VITALS: BP 156/66
[2017-05-22 00:13] VITALS: BP 154/72
[2017-05-22 04:09] VITALS: BP 153/61
[2017-05-22] MEDS: NovoLOG Insulin Flexpen SUBQ SCH ×3 (05:45→18:01)
[2017-05-22 08:00] VITALS: BP 144/70
[2017-05-22] MEDS: Docusate 100mg/10ml Liq GT SCH ×3 (08:27→18:15)
[2017-05-22] MEDS: Phenytoin Susp 100mg/4ml GT SCH ×2 (08:28→18:13)
[2017-05-22] MEDS: Metoprolol Tartrate 12.5mg TAB GT SCH ×2 (08:35→20:32)
[2017-05-22 08:48] LABS: INR 1.5 (0.9-1.1)
--- NOTE | 2017-05-22 10:07 | General Surgery Progress Note ---
General Surgery-Progress Note Subjective Additional Comments no acute events. doing okay. MRI with acute osteo Objective Last 24 Hour Vital Signs Date Time Temp Pulse Resp B/P (MAP) Pulse Ox O2 Delivery O2 Flow Rate FiO2 05/22/17 08:35 94 144/70 05/22/17 08:34 94 144/70 05/22/17 08:00 97.5 94 21 144/70 98 05/22/17 04:09 98.1 78 20 153/61 100 05/22/17 00:13 98.1 74 20 154/72 99 05/21/17 20:15 98.0 72 20 156/66 98 05/21/17 20:14 71 156/96 05/21/17 18:39 71 157/118 05/21/17 16:05 98.0 71 20 157/118 95 05/21/17 14:36 79 164/75 05/21/17 11:30 98.2 79 22 164/75 99 I&O Intake and Output 05/21/17 05/22/17 19:00 07:00 Intake Total 815 ml Output Total 400 ml 450 ml Balance 415 ml -450 ml Free Water 100 ml Tube Feeding 715 ml Output Urine Total 400 ml 450 ml # Bowel Movements 1 1 Dressing: saturated Wound: clean Drains: none Cardiovascular: RSR Respiratory: clear Abdomen: soft, present bowel sounds Extremities: no edema Laboratory Tests Test 05/22/17 06:40 Prothrombin Time 15.7 SEC (9.30-11.50) H Prothromb Time International Ratio 1.5 (0.9-1.1) H Plan Problems: (1) Heel ulcer Assessment & Plan: 81F with left feel decubitus ulcer. down to bone. pressure ulcer. no active signs of infection and some granulation tissue noted over wound. no necrotic or fibrinous tissue noted. MRI demonstrated active osteo Abx as per ID (6 weeks given osteo) no surgical debridement necessary at this time. wound clean with good granulation tissue. osteo will hopefully clear up with Abx continue with dressings changes please ensure no pressure on wounds. turn frequently. keep padded with heel protectors. (2) Sacral decubitus ulcer, stage III Assessment & Plan: needs to keep off sacral decubitus ulcer. q2h turning. fortunately no debridement necessary at this time but could progress if not cared for. Taco Carter May 22, 2017 10:07
--- NOTE | 2017-05-22 13:12 | Diagnostic Imaging Report ---
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 The left upper extremity was prepped with alcohol. All elements of maximal sterile barrier technique were followed including usage of a cap, mask, sterile gown, sterile gloves, hand hygiene and a large sterile sheet. Sonographic evaluation of the upper extremity was performed demonstrating a patent and compressible basilic vein. Access was obtained under real-time ultrasound guidance (with utilization of sterile gel and sterile probe cover) and digital image was saved and archived. An .018 wire was introduced. Needle exchanged for a 5 Divehi peel-away sheath. Measurements were obtained. A 5 Divehi dual-lumen Power PICC line catheter was cut to 48 cm and introduced over the wire. Peel-away sheath and wire were removed.Catheter was secured to the skin using 2-0 Prolene suture. Both ports aspirate and flush easily. Fluoroscopic images show distal tip in the superior vena cava. Total fluoroscopic time 0.3 minutes Impression: Successful placement of an upper extremity PICC line catheter
--- NOTE | 2017-05-22 14:29 | General Progress Note ---
Assessment/Plan Status: stable Status Narrative - ? Lt heel Oste - deep vein thrombosis. - Cough. Respiratory distress . impaction. - Hyperkalemia on presentation - Diabetes mellitus. High A1c - Organic brain syndrome. - Functional quadriplegia. - Hypertension. - Seizures. - Anemia - HypoAlbuminemia ID isuues: (1) Heel ulcer (2) Sacral decubitus ulcer, stage III (3) UTI (urinary tract infection) (4) Sepsis (5) Fever Assessment/Plan Plan: PICC line LELA- done DC on 6 weeks of IV Vanco coumadin MRI of left heel: Osteo antibiotics per Dr Dickson lorenzana 6 weeks wound care coumadin 2.5 daily when pt 2 and above stop Lovenox skin care Subjective ROS Limited/Unobtainable: No Constitutional: Reports: malaise Allergies: Coded Allergies: No Known Allergies (Verified , 01/27/10) Objective Last 24 Hour Vital Signs Date Time Temp Pulse Resp B/P (MAP) Pulse Ox O2 Delivery O2 Flow Rate FiO2 05/22/17 08:35 94 144/70 05/22/17 08:34 94 144/70 05/22/17 08:00 97.5 94 21 144/70 98 05/22/17 04:09 98.1 78 20 153/61 100 05/22/17 00:13 98.1 74 20 154/72 99 05/21/17 20:15 98.0 72 20 156/66 98 05/21/17 20:14 71 156/96 05/21/17 18:39 71 157/118 05/21/17 16:05 98.0 71 20 157/118 95 05/21/17 14:36 79 164/75 Intake and Output 05/21/17 05/22/17 19:00 07:00 Intake Total 815 ml Output Total 400 ml 450 ml Balance 415 ml -450 ml Free Water 100 ml Tube Feeding 715 ml Output Urine Total 400 ml 450 ml # Bowel Movements 1 1 Current Medications Medications (Trade) Dose Ordered Sig/Nancy Route PRN Reason Start Time Stop Time Status Last Admin Dose Admin Acetaminophen (Tylenol) 650 mg Q4H PRN GT Mild Pain/Temp > 100.5 05/16/17 15:45 06/15/17 15:44 Amlodipine Besylate (Norvasc) 5 mg BID GT 05/20/17 18:00 06/19/17 17:59 05/22/17 08:34 Chlorhexidine Gluconate (Jossy-Hex 2%) 1 applic DAILY@2000 TOPIC 05/21/17 20:00 06/20/17 19:59 Clonidine HCl (Catapres Tab) 0.1 mg EVERY 6 HOURS PRN GT For High BP 160 syst & over 05/16/17 15:45 06/15/17 15:44 05/18/17 01:50 Dextrose (Dextrose 50%) STAT PRN IV Hypoglycemia 05/18/17 12:15 06/17/17 12:14 Docusate Sodium (Colace) 100 mg TID GT 05/19/17 13:00 06/18/17 12:59 05/22/17 12:38 Enoxaparin Sodium (Lovenox) 80 mg QPM SUBQ 05/18/17 16:30 06/17/17 16:29 05/21/17 16:27 Famotidine (Pepcid) 20 mg BID GT 05/20/17 18:00 06/16/17 17:59 05/22/17 09:00 Heparin Sodium/ Sodium Chloride (Heparin 2000 units/Ns 1000ml premix) 2,000 unit ONCE INJ 05/21/17 14:30 05/22/17 23:59 Insulin Aspart (NovoLOG) EVERY 6 HOURS SUBQ 05/18/17 13:00 06/17/17 12:59 05/22/17 12:30 Levetiracetam (Keppra) 500 mg BID GT 05/16/17 18:00 06/15/17 17:59 05/22/17 09:00 Lidocaine HCl (Xylocaine 1% 30ml) 30 ml ONCE INJ 05/21/17 14:30 05/22/17 23:59 Metoclopramide HCl (Reglan) 5 mg EVERY 6 HOURS GT 05/19/17 12:00 06/18/17 11:59 05/22/17 12:34 Metoprolol Tartrate (Lopressor) 25 mg Q12HR GT 05/21/17 21:00 06/20/17 20:59 05/22/17 08:35 Phenytoin (Dilantin) 100 mg BID GT 05/16/17 18:00 06/15/17 17:59 05/22/17 08:28 Vancomycin HCl (Vanco rx to dose) 1 ea DAILY PRN MISC Per rx protocol 05/17/17 14:15 06/16/17 14:14 Vancomycin HCl 1 gm/Dextrose 275 ml @ 183.708 mls/hr Q24H IVPB 05/17/17 17:00 05/28/17 16:59 05/21/17 18:34 Warfarin Sodium (Coumadin per pharmacy) 1 ea DAILY PRN MISC Per rx protocol 05/17/17 17:45 06/16/17 17:44 Warfarin Sodium (Coumadin) 5 mg COUMADIN ONCE ORAL 05/22/17 17:00 05/22/17 17:01 Laboratory Tests 05/22/17 06:40: Prothrombin Time 15.7H, Prothromb Time International Ratio 1.5H Height (Feet): 5 Height (Inches): 4.00 Weight (Pounds): 179 General Appearance: no apparent distress Cardiovascular: normal rate Respiratory/Chest: decreased breath sounds Abdomen: soft Objective no other changes GEORGE MONDRAGON May 22, 2017 14:29
[2017-05-22] MEDS: Heparin 2000 units/Ns 1000ml INJ SCH (14:30)
[2017-05-22] MEDS: Lidocaine 1% Plain 30 ml INJ SCH (14:30)
[2017-05-22] MEDS ORDERED: PHENYTOIN100 MG/4 M GT (14:34)
[2017-05-22] MEDS ORDERED: Vanco pharmacy to dose MISC (14:34)
[2017-05-22] MEDS ORDERED: NORVASC2.5 MG GT (14:34)
[2017-05-22] MEDS ORDERED: KEPPRA500 M3 GT (14:34)
[2017-05-22] MEDS ORDERED: TYLENOL650 MG/20. GT (14:34)
[2017-05-22] MEDS ORDERED: FAMOTIDINE20 MG GT (14:34)
[2017-05-22] MEDS ORDERED: COUMADIN5 MG ORAL (14:34)
[2017-05-22] MEDS ORDERED: COLACE100 MG/10 GT (14:34)
[2017-05-22] MEDS ORDERED: METOCLOPRAMIDE H5 M1 GT (14:34)
[2017-05-22] MEDS ORDERED: LOVENOX10 M2 SUBQ (14:34)
--- NOTE | 2017-05-22 14:36 | Discharge Instructions ---
Discharge Instructions Discharge Instructions Special Instructions PICC line care routin- 6 weeks of IV Vancomycin one gram Q24h Coumadin 2.5 mg daily PT Q and Stop Lovenox when PT over 2 routine skin care aspiration percautions For Congestive Heart Failure Reminder Report to your physician any weight gain of 5 pounds or more in one week. GEORGE MONDRAGON May 22, 2017 14:36
--- NOTE | 2017-05-22 14:39 | Discharge Instructions ---
Discharge Instructions For Congestive Heart Failure Reminder Report to your physician any weight gain of 5 pounds or more in one week. GEORGE MONDRAGON May 22, 2017 14:39
--- NOTE | 2017-05-22 15:09 | Infectious Diseases Prog Note ---
Assessment/Plan Problems: (1) Heel ulcer Assessment & Plan: on the left heel , with acute osteomyelitis, and elevated ESR , wound culture grew MSSA and Enterococcus Faecalis , will need vancomycin for 6 weeks. continue local wound care . EOT 06/28/17 . (2) Sacral decubitus ulcer, stage III Assessment & Plan: keep off loading and continue local wound care (3) UTI (urinary tract infection) Assessment & Plan: on cefepime empirically, urine culture showed no grwoth , will stop cefepime (4) Sepsis Assessment & Plan: due to the above , blood culture remained negative , on vancomycin with cefepime empirically (5) Fever Assessment & Plan: resolved, due to the above, no evidence of bacteremia , continue vancomycin for left heel osteomyelitis Subjective ROS Limited/Unobtainable: Yes Allergies: Coded Allergies: No Known Allergies (Verified , 01/27/10) Subjective she was comfortable , lying in bed, quiet, unresponsive , nonverbal, not in distress, afebrile Objective Vital Signs Last 24 Hour Vital Signs Date Time Temp Pulse Resp B/P (MAP) Pulse Ox O2 Delivery O2 Flow Rate FiO2 05/22/17 08:35 94 144/70 05/22/17 08:34 94 144/70 05/22/17 08:00 97.5 94 21 144/70 98 05/22/17 04:09 98.1 78 20 153/61 100 05/22/17 00:13 98.1 74 20 154/72 99 05/21/17 20:15 98.0 72 20 156/66 98 05/21/17 20:14 71 156/96 05/21/17 18:39 71 157/118 05/21/17 16:05 98.0 71 20 157/118 95 Height (Feet): 5 Height (Inches): 4.00 Weight (Pounds): 179 General Appearance: WD/WN, no acute distress HEENT: normocephalic, atraumatic, anicteric, mucous membranes moist Respiratory/Chest: chest wall non-tender, no respiratory distress, no accessory muscle use, decreased breath sounds, crackles/rales Cardiovascular: normal peripheral pulses, normal rate, regular rhythm, no gallop/murmur, no JVD Abdomen: normal bowel sounds, soft, non tender, no organomegaly, non distended , no mass, no scars Extremities: no cyanosis, no clubbing Skin: no rash, no lesions, no ulcers Neurologic/Psychiatric: unresponsiveness Lymphatic: no neck adenopathy, no groin adenopathy Laboratory Tests Test 05/22/17 06:40 Prothrombin Time 15.7 SEC (9.30-11.50) H Prothromb Time International Ratio 1.5 (0.9-1.1) H Current Medications Medications (Trade) Dose Ordered Sig/Nancy Route PRN Reason Start Time Stop Time Status Last Admin Dose Admin Acetaminophen (Tylenol) 650 mg Q4H PRN GT Mild Pain/Temp > 100.5 05/16/17 15:45 06/15/17 15:44 Amlodipine Besylate (Norvasc) 5 mg BID GT 05/20/17 18:00 06/19/17 17:59 05/22/17 08:34 Chlorhexidine Gluconate (Jossy-Hex 2%) 1 applic DAILY@2000 TOPIC 05/21/17 20:00 06/20/17 19:59 Clonidine HCl (Catapres Tab) 0.1 mg EVERY 6 HOURS PRN GT For High BP 160 syst & over 05/16/17 15:45 06/15/17 15:44 05/18/17 01:50 Dextrose (Dextrose 50%) STAT PRN IV Hypoglycemia 05/18/17 12:15 06/17/17 12:14 Docusate Sodium (Colace) 100 mg TID GT 05/19/17 13:00 06/18/17 12:59 05/22/17 12:38 Enoxaparin Sodium (Lovenox) 80 mg QPM SUBQ 05/18/17 16:30 06/17/17 16:29 05/21/17 16:27 Famotidine (Pepcid) 20 mg BID GT 05/20/17 18:00 06/16/17 17:59 05/22/17 09:00 Heparin Sodium/ Sodium Chloride (Heparin 2000 units/Ns 1000ml premix) 2,000 unit ONCE INJ 05/21/17 14:30 05/22/17 23:59 Insulin Aspart (NovoLOG) EVERY 6 HOURS SUBQ 05/18/17 13:00 06/17/17 12:59 05/22/17 12:30 Levetiracetam (Keppra) 500 mg BID GT 05/16/17 18:00 06/15/17 17:59 05/22/17 09:00 Lidocaine HCl (Xylocaine 1% 30ml) 30 ml ONCE INJ 05/21/17 14:30 05/22/17 23:59 Metoclopramide HCl (Reglan) 5 mg EVERY 6 HOURS GT 05/19/17 12:00 06/18/17 11:59 05/22/17 12:34 Metoprolol Tartrate (Lopressor) 25 mg Q12HR GT 05/21/17 21:00 06/20/17 20:59 05/22/17 08:35 Phenytoin (Dilantin) 100 mg BID GT 05/16/17 18:00 06/15/17 17:59 05/22/17 08:28 Vancomycin HCl (Vanco rx to dose) 1 ea DAILY PRN MISC Per rx protocol 05/17/17 14:15 06/16/17 14:14 Vancomycin HCl 1 gm/Dextrose 275 ml @ 183.708 mls/hr Q24H IVPB 05/17/17 17:00 05/28/17 16:59 05/21/17 18:34 Warfarin Sodium (Coumadin per pharmacy) 1 ea DAILY PRN MISC Per rx protocol 05/17/17 17:45 06/16/17 17:44 Warfarin Sodium (Coumadin) 5 mg COUMADIN ONCE ORAL 05/22/17 17:00 05/22/17 17:01 Ayala Forman M.D. May 22, 2017 15:09
[2017-05-22 15:57] VITALS: BP 142/92
[2017-05-22] MEDS ORDERED: Warfarin Sodium 5mg ORAL ONE (17:00)
[2017-05-22] MEDS: Enoxaparin 80mg Inj SUBQ SCH (18:12)
--- NOTE | 2017-05-22 19:02 | Pulmonology Progress Note ---
Assessment/Plan Problems: (1) Sepsis (2) Decubital ulcer (3) Diabetes (4) G tube feedings (5) Dementia Assessment/Plan improivng check cultures continue abx toleraing feeding Gtube site care check electrolytes all noted, no new complains Subjective ROS Limited/Unobtainable: No Allergies: Coded Allergies: No Known Allergies (Verified , 01/27/10) Objective Last 24 Hour Vital Signs Date Time Temp Pulse Resp B/P (MAP) Pulse Ox O2 Delivery O2 Flow Rate FiO2 05/22/17 18:13 82 142/92 05/22/17 15:57 97.3 82 24 142/92 99 05/22/17 08:35 94 144/70 05/22/17 08:34 94 144/70 05/22/17 08:00 97.5 94 21 144/70 98 05/22/17 04:09 98.1 78 20 153/61 100 05/22/17 00:13 98.1 74 20 154/72 99 05/21/17 20:15 98.0 72 20 156/66 98 05/21/17 20:14 71 156/96 Intake and Output 05/21/17 05/22/17 19:00 07:00 Intake Total 815 ml 65 ml Output Total 400 ml 450 ml Balance 415 ml -385 ml Free Water 100 ml Tube Feeding 715 ml 65 ml Output Urine Total 400 ml 450 ml # Bowel Movements 1 1 Objective General Appearance: WD/WN HEENT: normocephalic, atraumatic Respiratory/Chest: chest wall non-tender, lungs clear Cardiovascular: normal peripheral pulses, normal rate Abdomen: normal bowel sounds, soft, non tender Genitourinary: normal external genitalia Extremities: no cyanosis 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 grossly normal, no motor/sensory deficits Lymphatic: no neck adenopathy Laboratory Tests 05/22/17 06:40: Prothrombin Time 15.7H, Prothromb Time International Ratio 1.5H Current Medications Medications (Trade) Dose Ordered Sig/Nancy Route PRN Reason Start Time Stop Time Status Last Admin Dose Admin Acetaminophen (Tylenol) 650 mg Q4H PRN GT Mild Pain/Temp > 100.5 05/16/17 15:45 06/15/17 15:44 Amlodipine Besylate (Norvasc) 5 mg BID GT 05/20/17 18:00 06/19/17 17:59 05/22/17 18:13 Chlorhexidine Gluconate (Jossy-Hex 2%) 1 applic DAILY@2000 TOPIC 05/21/17 20:00 06/20/17 19:59 Clonidine HCl (Catapres Tab) 0.1 mg EVERY 6 HOURS PRN GT For High BP 160 syst & over 05/16/17 15:45 06/15/17 15:44 05/18/17 01:50 Dextrose (Dextrose 50%) STAT PRN IV Hypoglycemia 05/18/17 12:15 06/17/17 12:14 Docusate Sodium (Colace) 100 mg TID GT 05/19/17 13:00 06/18/17 12:59 05/22/17 18:15 Enoxaparin Sodium (Lovenox) 80 mg QPM SUBQ 05/18/17 16:30 06/17/17 16:29 05/22/17 18:12 Famotidine (Pepcid) 20 mg BID GT 05/20/17 18:00 06/16/17 17:59 05/22/17 18:13 Heparin Sodium/ Sodium Chloride (Heparin 2000 units/Ns 1000ml premix) 2,000 unit ONCE INJ 05/21/17 14:30 05/22/17 23:59 Insulin Aspart (NovoLOG) EVERY 6 HOURS SUBQ 05/18/17 13:00 06/17/17 12:59 05/22/17 18:01 Levetiracetam (Keppra) 500 mg BID GT 05/16/17 18:00 06/15/17 17:59 05/22/17 18:13 Lidocaine HCl (Xylocaine 1% 30ml) 30 ml ONCE INJ 05/21/17 14:30 05/22/17 23:59 Metoclopramide HCl (Reglan) 5 mg EVERY 6 HOURS GT 05/19/17 12:00 06/18/17 11:59 05/22/17 18:13 Metoprolol Tartrate (Lopressor) 25 mg Q12HR GT 05/21/17 21:00 06/20/17 20:59 05/22/17 08:35 Phenytoin (Dilantin) 100 mg BID GT 05/16/17 18:00 06/15/17 17:59 05/22/17 18:13 Vancomycin HCl (Vanco rx to dose) 1 ea DAILY PRN MISC Per rx protocol 05/17/17 14:15 06/16/17 14:14 Vancomycin HCl 1 gm/Dextrose 275 ml @ 183.708 mls/hr Q24H IVPB 05/17/17 17:00 05/28/17 16:59 05/21/17 18:34 Warfarin Sodium (Coumadin per pharmacy) 1 ea DAILY PRN MISC Per rx protocol 05/17/17 17:45 06/16/17 17:44 TREY BEE May 22, 2017 19:01
[2017-05-22] MEDS: Vancomycin 1gm in D5W 275ml IVPB SCH (20:28)
[2017-05-22 20:29] VITALS: BP 152/71
[2017-05-22 20:32] VITALS: BP 152/71
--- NOTE | 2017-05-24 12:15 | Discharge Summary ---
Discharge Summary Hospital Course Date of Admission May 16, 2017 at 15:10 Date of Discharge May 22, 2017 at 22:00 Admitting Diagnosis PNEUMONIA HPI Casandra Downing is a 81 year old female who was admitted on May 16, 2017 at 15:10 for Pneumonia Hospital Course [id number] Discharge Discharge Disposition Patient was discharged to SNF/Subacute Facility(03) Discharge Diagnoses: Alyce Keane NP May 24, 2017 12:15
--- NOTE | 2017-05-25 00:45 | Discharge Summary 2 SIG ---
DATE OF ADMISSION: 05/16/2017 DATE OF DISCHARGE: 05/22/2017 CONSULTANTS: 1. Saira Lazcano M.D. 2. Taco Carter M.D. 3. Ayala Forman M.D. BRIEF HOSPITAL COURSE: The patient is an 81-year-old female, who resides at [facility], who had recent admission in 06/2016 apparently became distressed. jail nurses called as the patient was having fever and fecal impaction. She was given Tylenol and tried to manually disimpact, but did not improve. She was sent to emergency room for further management. On evaluation, she was found to have a potassium level of 5.9. There was no leukocytosis. Urine showed WBC 5 to 10, 2 to 4 RBC with 1+ leukocyte esterase, and moderate bacteria. She has history of sacral decubitus ulcer. She was started on antibiotic and was admitted for urine infection and hyperkalemia. She was given Kayexalate. Influenza screen was negative. On evaluation, she also came in with an ulcer on the left heel. She was started on vancomycin and cefepime empirically. Surgical consultation was done. She had foul-smelling deep left heel ulcer and sacral decubitus ulcer. Evaluation showed wounds with no signs of active infection, no debridement necessary at this time. Recommended offloading and daily wound care. She had an x-ray of the heel that showed abnormal sclerosis and indistinctness of the cortex. Left ankle MRI showed severe acute osteomyelitis. She underwent venous duplex of the lower extremities. Results showed acute DVT on the right leg. She was given Lovenox injections and coumadin. Urine culture did not isolate any growth and blood culture remained negative. Cefepime was discontinued. Wound culture showed growth of MSSA and Enterococcus faecalis. The patient will need to continue vancomycin for six weeks. PICC line was inserted to the left arm. She was eventually discharged back to SNF to complete intravenous vancomycin therapy. FINAL DIAGNOSES: 1. Acute left heel osteomyelitis. 2. Acute thrombus on the right leg. Continue anticoagulation with Lovenox and Coumadin. 3. Hyperkalemia. 4. Diabetes mellitus type 2, out of control. 5. Functional quadriplegia. 6. Organic brain syndrome. 7. Hypertension. 8. Anemia. 9. Seizure disorder. 10. Urinary tract infection. 11. Sepsis with fever. DISPOSITION: The patient was [facility]. DISCHARGE MEDICATIONS: Refer to medication list. Continue vancomycin for six weeks, end of therapy on 06/28/2017. DISCHARGE INSTRUCTIONS: Daily wound care. Continue with Coumadin 2.5 mg daily and when INR 2, discontinue Lovenox. Continue with skin care. Frequent turning and offloading. Estevan Orozco M.D. I have been assigned to dictate discharge summary on this account and I was not involved in the patient's management. Alyce Keane N.P. DR: BANDAR JOB#: [id number] CC: NIMCO
--- NOTE | 2017-05-31 02:08 | Physician Query ---
PLEASE COMPLETE THE QUESTION BEFORE SIGNING Dear Dr. MONDRAGON Date: 05/31/17 Regulatory Coordinator/CDS Name: RAYMUNDO GRAF CCS Admission date: 05/16/17 Discharges: 03/22/18 Exercise your independent professional judgment when responding to query. Question asked do not imply a particular answer is desired/expected 05/16/17 -ER PHYSICIAN NOTED: UTI, TEMP 98.4 Labs - BUN/Cr ok, K 5.2, no leukocytosis, troponins negative, UA grossly positive for UTI, lactate ok influenza negative 05/17/17 ID progress note: Dr. Forman states: (1) Heel ulcer Assessment & Plan: on the left heel , rule out underlying osteomyelitis, will order X ray of the left heel , and check ESR, CRP , start vancomycin with cefepime empiric coverage , continue local wound care (2) Sacral decubitus ulcer, stage III Assessment & Plan: will send wound culture and start vancomycin with cefepime empiric coverage , keep off loading and local wound care (3) UTI (urinary tract infection) Assessment & Plan: will start cefepime empirically, pending urine culture results (4) Sepsis Assessment & Plan: due to the above , will send blood culture and start vancomycin with cefepime empirically (5) Fever Assessment & Plan: due to the above, will send blood culture to rule out bacteremia and start vancomycin with cefepime empirically "Sepsis" documented in Discharge summary -FINAL DIAGNOSES: 11. Sepsis with fever. Clinical Findings Show: [x] Leukocytosis (WBC count > 12,000 L1 (05/16/17- White blood cells of 6400) 1) Was SEPSIS present on admission? [ ] Yes [ ] No [ ] Clinically undeterminable Please also document in your Progress Notes and/or Discharge Summary and indicate if the condition was present on admission. GEORGE MONDRAGON M.D. DATE & TIME [facility]
--- NOTE | 2017-06-02 20:40 | Diagnostic Imaging Report ---
APPROVED REPORT CPT Code: 26135 Present Symptoms Lower Extremity Pain: Shortness of breath RIGHT LEG: Venous imaging reveals acute thrombus in the proximal to distal superficial femoral vein and calf veins (posterior tibial and peroneal veins). Imaging reveals patency of the common femoral and popliteal veins. The greater saphenous vein is also within normal limits. LEFT LEG: Venous imaging reveals a patent deep venous system. There is no evidence of thrombus within the femoral, popliteal or tibial segments. The greater saphenous vein is also within normal limits. Doppler indicates normal spontaneous flow within these segments. LUIS Rodriguez was informed of abnormal results at 17:20 hrs.
[2017-07-16] MEDS ORDERED: VITAMIN C500 M1 GT (23:17)
[2017-07-16] MEDS ORDERED: ZINC SULFATE220 M1 GT (23:17)
[2017-07-16] MEDS ORDERED: ACETAMINOPHEN325 M1 GT (23:17)
[2017-07-16] MEDS ORDERED: COLACE100 MG GT (23:17)
[2017-07-16] MEDS ORDERED: MULTIVITAMINS1 EAC8 GT (23:17)
[2017-07-16] MEDS ORDERED: COUMADIN5 MG GT (23:17)
[2017-07-16] MEDS ORDERED: TYLENOL EXTRA500 MG GT (23:17)
[2017-07-16] MEDS ORDERED: DILANTIN100 MG GT (23:17)
[2017-07-22] MEDS ORDERED: AMPICILLIN TRI500 MG GT (14:58)
[2017-07-22] MEDS ORDERED: ALBUTEROL2.5 MG/3 M HHN (14:58)
[2017-07-22] MEDS ORDERED: CEFDINIR300 MG ORAL (14:58)
[2017-07-22] MEDS ORDERED: NOVOLOG100 UNITS1 SUBQ (14:58)
[2017-07-22] MEDS ORDERED: ELIQUIS2.5 MG GT (14:58)
[2017-07-22] MEDS ORDERED: TRAMADOL HCL50 MG GT (14:58)
[2017-07-22] MEDS ORDERED: DOXYCYCLINE HY100 M2 GT (14:58)
[2017-07-22] MEDS ORDERED: COREG6.25 MG GT (14:58)
[2017-07-22] MEDS ORDERED: LASIX20 M1 ORAL (15:01)
[2017-07-22] MEDS ORDERED: POTASSIUM CHLO20 ME2 ORAL (15:02)
== END 2017-05-22 22:00 | DRG 871 ==
LOC: EDBD 13:44 → EMR 14:23 → 4W 15:10 → EDBEDREQ 15:40
PROC: 02HV33Z Insertion of Infusion Device into Superior Vena Cava, Percutaneous Approach (ICD-10-PCS; principal; 2017-05-22)
PROC: B548ZZA Ultrasonography of Superior Vena Cava, Guidance (ICD-10-PCS; principal; 2017-05-22)
DX: A41.9 Sepsis, unspecified organism (principal); L89.153 Pressure ulcer of sacral region, stage 3; I82.411 Acute embolism and thrombosis of right femoral vein; R53.2 Functional quadriplegia; E11.69 Type 2 diabetes mellitus with other specified complication; M86.172 Other acute osteomyelitis, left ankle and foot; F03.90 Unspecified dementia, unspecified severity, without behavioral disturbance, psychotic disturbance, mood disturbance, and anxiety; I27.20 Pulmonary hypertension, unspecified; E88.09 Other disorders of plasma-protein metabolism, not elsewhere classified; L97.429 Non-pressure chronic ulcer of left heel and midfoot with unspecified severity; N39.0 Urinary tract infection, site not specified; I82.441 Acute embolism and thrombosis of right tibial vein; I10 Essential (primary) hypertension; D64.9 Anemia, unspecified; E87.5 Hyperkalemia; K56.41 Fecal impaction; G40.909 Epilepsy, unspecified, not intractable, without status epilepticus; K21.9 Gastro-esophageal reflux disease without esophagitis; E11.65 Type 2 diabetes mellitus with hyperglycemia; F09 Unspecified mental disorder due to known physiological condition; E78.00 Pure hypercholesterolemia, unspecified; Z74.01 Bed confinement status
CPT/HCPCS: 36415; 36569; 71045; 76937; 80053; 80061; 80185; 80202; 80299; 81003; 82550; 82553; 82607; 82728; 82746; 82962; 82977; 83036; 83540; 83550; 83605; 83735; 83880; 84100; 84443; 84484; 84550; 85025; 85610; 85651; 85730; 86140; 86710; 87040; 87070; 87081; 87086; 87181; 87205; 93005; 93970; 99285; J1815; J8499

== ENCOUNTER 2017-08-22 17:07 | Inpatient (IN) | payer MEDICARE, MEDICAID ==
[~2017-08-22] VITALS: Ht 162.6 cm; Wt 87.5 kg
[~2017-08-22 17:07] MED LIST changes: +ACETAMINOPHEN325 M1 GT; +ALBUTEROL2.5 MG/3 M HHN; +AMPICILLIN TRI500 MG GT; +ASPIRIN81 MG ORAL; +CEFDINIR300 MG ORAL; +COLACE100 MG/10 GT; +COREG6.25 MG GT; +COUMADIN5 MG GT; +COUMADIN5 MG ORAL; +DIGOXIN0.125 MG/2 ORAL; +DOCUSATE SODIU100 MG GT; +DOXYCYCLINE HY100 M2 GT; +ELIQUIS2.5 MG GT; +ELIQUIS5 MG PO; +FAMOTIDINE20 MG GT; +FLEET ENEMA133 ML RECTAL; +KEPPRA500 M3 GT; +LASIX20 M1 ORAL; +LOVENOX10 M2 SUBQ; +METOCLOPRAMIDE H5 M1 GT; +MIRALAX17 G2 GT; +MULTIVITAMINS1 EAC8 GT; +NITROGLYCERIN0.4 MG SL; +NORVASC2.5 MG GT; +NORVASC5 MG GT; +PHENYTOIN100 MG/4 M GT; +POTASSIUM CHLO20 ME2 ORAL; +TYLENOL EXTRA500 MG GT; +TYLENOL650 MG/20. GT; +VITAMIN C500 M1 GT; +Vanco pharmacy to dose MISC; +ZANTAC150 MG GT; +ZINC SULFATE220 M1 GT; +ZOFRAN4 M3 ORAL
[2017-08-22 17:15] VITALS: BP 142/53
[2017-08-22 18:27] LABS: HEMATOCRIT 24.4 % (37.0-47.0); HEMOGLOBIN 7.8 G/DL (12.0-16.0); MEAN CORPUSCULAR VOLUME 99 FL (80-99); PLATELET COUNT 214 K/UL (150-450); RED BLOOD COUNT 2.46 M/UL (4.20-5.40); RED CELL DISTRIBUTION WIDTH 15.9 % (11.6-14.8); WHITE BLOOD COUNT 10.9 K/UL (4.8-10.8)
[2017-08-22 18:39] LABS: ANION GAP 11 mmol/L (5-15); BLOOD UREA NITROGEN 70 mg/dL (7-18); CALCIUM 9.5 MG/DL (8.5-10.1); CARBON DIOXIDE 26 MMOL/L (21-32); CHLORIDE 115 MMOL/L (98-107); POTASSIUM 4.9 MMOL/L (3.5-5.1); SODIUM 152 MMOL/L (136-145)
[2017-08-22] MEDS ORDERED: Acetaminophen 650mg/20.3ml GT ONE (18:45)
[2017-08-22 18:52] LABS: ALANINE AMINOTRANSFERASE 10 U/L (12-78); ALBUMIN 2.5 G/DL (3.4-5.0); ALBUMIN/GLOBULIN RATIO 0.3 (1.0-2.7); ALKALINE PHOSPHATASE 123 U/L (46-116); ASPARTATE AMINO TRANSFERASE 15 U/L (15-37); BILIRUBIN,TOTAL 0.3 MG/DL (0.2-1.0); CKMB < 0.5 NG/ML (0.0-3.6); CREATINE KINASE 62 U/L (26-308)
[2017-08-22 18:56] LABS: APPEARANCE,URINE CLEAR; BILIRUBIN, URINE NEGATIVE (NEGATIVE); COLOR,URINE PALE YELLOW; GLUCOSE, URINE (UA) NEGATIVE (NEGATIVE); KETONES,URINE NEGATIVE (NEGATIVE); LEUKOCYTE ESTERASE ,URINE 2+ (NEGATIVE); NITRITE,URINE NEGATIVE (NEGATIVE); PH,URINE 8 (4.5-8.0); PROTEIN,URINE 3+ (NEGATIVE); UROBILINOGEN,URINE NORMAL MG/DL (0.0-1.0)
[2017-08-22 19:11] VITALS: BP 169/63
[2017-08-22 19:30] VITALS: BP 104/40
[2017-08-22] MEDS ORDERED: cefTRIAXone 1 GM in NS 55 ML IVPB ONE (19:30)
--- NOTE | 2017-08-22 21:27 | Emergency Room Report ---
History of Present Illness General Chief Complaint: General Complaint Source: Patient, Medical Record, EMS Present Illness HPI 82-year-old female presents ED for evaluation. Coming from long-term for fever and vomiting today. Patient has dementia/organic brain syndrome and is nonverbal at baseline. No signs of distress upon arrival. No active vomiting. No other aggravating relieving factors. No other associated symptoms Allergies: Coded Allergies: No Known Allergies (Verified , 01/27/10) Patient History Past Medical History: DM, COPD, CVA/TIA, dementia, seizures Social History: Denies: smoking, alcohol use, drug use Last Menstrual Period: Unk Now: No Immunizations: UTD Nursing Documentation-PMH Hx Cardiac Problems: Yes - Sepsis, DVT Hx Hypertension: Yes Hx Pacemaker: No Hx Asthma: No Hx COPD: Yes - PNA Hx Diabetes: Yes - DM2 Hx Cancer: No Hx Gastrointestinal Problems: No - Gtube Hx Dialysis: No 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 Hx Dementia: Yes Hx Seizures: Yes - Epilepsy Hx Speech Problem: Yes - Non-verbal Hx Dysphasia: Yes - G-tube Review of Systems All Other Systems: limited Physical Exam Vital Signs Date Time Temp Pulse Resp B/P (MAP) Pulse Ox O2 Delivery O2 Flow Rate FiO2 08/22/17 17:08 103.0 106 24 149/69 98 Nasal Cannula 2.0 102.9 Sp02 EP Interpretation: reviewed, normal General Appearance: no apparent distress, other - nonverbal Head: normocephalic Eyes: bilateral eye normal inspection, bilateral eye PERRL ENT: normal ENT inspection Neck: normal inspection Respiratory: chest non-tender, lungs clear, normal breath sounds, speaking full sentences Cardiovascular #1: regular rate, rhythm, no edema Gastrointestinal: normal bowel sounds, non tender, soft, non-distended, no guarding, no rebound, other - Gtube Rectal: deferred Genitourinary: no CVA tenderness Musculoskeletal: normal inspection Neurologic: other - nonverbal Psychiatric: other - nonverbal Skin: normal inspection Lymphatic: normal inspection Medical Decision Making Diagnostic Impression: Primary Impression: Sepsis Qualified Codes: A41.9 - Sepsis, unspecified organism Additional Impressions: UTI (urinary tract infection) Qualified Codes: N39.0 - Urinary tract infection, site not specified Dehydration Hypernatremia Dementia Qualified Codes: F03.90 - Unspecified dementia without behavioral disturbance Anemia Qualified Codes: D64.9 - Anemia, unspecified ER Course Hospital Course 82-year-old female presents to ED with fever, vomiting Differential diagnoses include: Pneumonia, UTI, sepsis, dehydration, [place]/ unstable angina Clinical course Patient placed on stretcher. On gambling monitor with stable vitals are ED course. After initial history and physical, I ordered labs, IV fluids, EKG, chest x-ray, blood cultures, UA. given tylenol via gtube Labs - BUN/Cr 70/2, Na 152, minimal leukocytosis, troponins negative, UA grossly positive for UTI, lactic 2.1 EKG - sinus tachycardia, no acute ischemic changes interpreted by me CXR - no acute process Abx given. given ivfs bolus. Case discussed with Dr Roberto and they agreed to admit patient to their service for further care and support I feel this is a highly complex case requiring extensive working including EKG/ Rhythm strip, Xray/CT/US, Blood/urine lab work, repeat exams while in ED, and administration of strong opiates/narcotics for pain control, admission to hospital or close patient follow up. Diagnosis - UTI, sepsis, dehydration, hyerpnatremia, dementia, anemia Patient admitted to telemetry in serious condition Labs Test 08/22/17 18:10 08/22/17 18:15 White Blood Count 10.9 K/UL (4.8-10.8) Red Blood Count 2.46 M/UL (4.20-5.40) Hemoglobin 7.8 G/DL (12.0-16.0) Hematocrit 24.4 % (37.0-47.0) Mean Corpuscular Volume 99 FL (80-99) Mean Corpuscular Hemoglobin 31.9 PG (27.0-31.0) Mean Corpuscular Hemoglobin Concent 32.1 G/DL (32.0-36.0) Red Cell Distribution Width 15.9 % (11.6-14.8) Platelet Count 214 K/UL (150-450) Mean Platelet Volume 9.2 FL (6.5-10.1) Neutrophils (%) (Auto) % (45.0-75.0) Lymphocytes (%) (Auto) % (20.0-45.0) Monocytes (%) (Auto) % (1.0-10.0) Eosinophils (%) (Auto) % (0.0-3.0) Basophils (%) (Auto) % (0.0-2.0) Differential Total Cells Counted 100 Neutrophils % (Manual) 71 % (45-75) Lymphocytes % (Manual) 23 % (20-45) Monocytes % (Manual) 2 % (1-10) Eosinophils % (Manual) 3 % (0-3) Basophils % (Manual) 0 % (0-2) Band Neutrophils 1 % (0-8) Platelet Estimate Adequate Platelet Morphology Normal Polychromasia 1+ Hypochromasia 1+ Anisocytosis 1+ Macrocytosis 1+ Sodium Level 152 MMOL/L (136-145) Potassium Level 4.9 MMOL/L (3.5-5.1) Chloride Level 115 MMOL/L (98-107) Carbon Dioxide Level 26 MMOL/L (21-32) Anion Gap 11 mmol/L (5-15) Blood Urea Nitrogen 70 mg/dL (7-18) Creatinine 2.0 MG/DL (0.55-1.30) Estimat Glomerular Filtration Rate mL/min (>60) Glucose Level 168 MG/DL (74-106) Lactic Acid Level 2.10 mmol/L (0.66-2.22) Calcium Level 9.5 MG/DL (8.5-10.1) Total Bilirubin 0.3 MG/DL (0.2-1.0) Aspartate Amino Transf (AST/SGOT) 15 U/L (15-37) Alanine Aminotransferase (ALT/SGPT) 10 U/L (12-78) Alkaline Phosphatase 123 U/L (46-116) Total Creatine Kinase 62 U/L (26-308) Creatine Kinase MB < 0.5 NG/ML (0.0-3.6) Creatine Kinase MB Relative Index 0.8 Troponin I 0.002 ng/mL (0.000-0.056) Pro-B-Type Natriuretic Peptide 1103 pg/mL (0-125) Total Protein 10.0 G/DL (6.4-8.2) Albumin 2.5 G/DL (3.4-5.0) Globulin 7.5 g/dL Albumin/Globulin Ratio 0.3 (1.0-2.7) Urine Color Pale yellow Urine Appearance Clear Urine pH 8 (4.5-8.0) Urine Specific Frost 1.010 (1.005-1.035) Urine Protein 3+ (NEGATIVE) Urine Glucose (UA) Negative (NEGATIVE) Urine Ketones Negative (NEGATIVE) Urine Occult Blood 1+ (NEGATIVE) Urine Nitrite Negative (NEGATIVE) Urine Bilirubin Negative (NEGATIVE) Urine Urobilinogen Normal MG/DL (0.0-1.0) Urine Leukocyte Esterase 2+ (NEGATIVE) Urine RBC 2-4 /HPF (0 - 2) Urine WBC 20-30 /HPF (0 - 2) Urine Squamous Epithelial Cells Occasional /LPF Urine Bacteria Occasional /HPF (NONE) EKG Diagnostic Results Rate: tachycardiac Rhythm: NSR ST Segments: no acute changes ASA given to the pt in ED: No Rhythm Strip Diag. Results EP Interpretation: yes Rhythm: NSR, no PVC's, no ectopy Chest X-Ray Diagnostic Results Chest X-Ray Diagnostic Results : Chest X-Ray Ordered: Yes # of Views/Limited/Complete: 1 View Indication: Other - ams EP Interpretation: Yes Interpretation: no consolidation, no effusion, no pneumothorax, no acute cardiopulmonary disease Impression: No acute disease Electronically Signed by: Electronically signed by Mario Alberto Delvalle MD Last Vital Signs Date Time Temp Pulse Resp B/P (MAP) Pulse Ox O2 Delivery O2 Flow Rate FiO2 08/22/17 19:11 99.5 102 22 169/63 96 Nasal Cannula 2.0 99.5 Status: improved Disposition: ADMITTED INPATIENT Condition: Serious Referrals: GEORGE MONDRAGON (PCP) Mario Alberto Delvalle MD Aug 22, 2017 21:27
[2017-08-22 21:29] VITALS: BP 108/37
[2017-08-22 22:05] VITALS: BP 111/40
[2017-08-22 22:30] VITALS: BP 133/60
[2017-08-22] MEDS ORDERED: traMADol 50mg tab GT PRN (22:30)
[2017-08-22] MEDS ORDERED: Acetaminophen 650mg/20.3ml GT PRN (22:30)
[2017-08-22] MEDS ORDERED: Miralax 17gm pkt GT PRN (22:30)
--- NOTE | 2017-08-22 22:45 | History & Physical ---
History and Physical History & Physicial HPI 82-year-old female presents ED for evaluation. Coming from long term for fever and vomiting today. Patient has dementia/organic brain syndrome and is nonverbal at baseline. No signs of distress upon arrival. No active vomiting. No other aggravating relieving factors. No other associated symptoms Past Medical History: DM, COPD, CVA/TIA, dementia, seizures (1) Heel ulcer (2) UTI (urinary tract infection) (3) Healthcare-associated pneumonia (4) Sepsis. (5) OREN (acute kidney injury), dehydration (6) Anemia iv fluid zosyn vanco lovenox duplex le discuss with faamily code status ? Amputation per orders # [id number] GEORGE MONDRAGON Aug 22, 2017 22:45
[2017-08-22] MEDS: Albuterol ud Inhalation HHN SCH (23:16)
[2017-08-22] MEDS ORDERED: Vancomycin 1250mg/D5W 250ml IVPB ONE (23:30)
[2017-08-23] VITALS: BP 134/57
[2017-08-23] MEDS: Metoclopramide 10mg/10ml Liq GT SCH ×4 (00:14→17:39)
[2017-08-23] MEDS: Albuterol ud Inhalation HHN SCH ×6 (03:26→23:17)
[2017-08-23 04:00] VITALS: BP 130/66
[2017-08-23] MEDS ORDERED: Piperacillin/Tazobactam 2.25 GM in D5W 55 ML IVPB SCH (06:00)
[2017-08-23] MEDS: Zoysn 3.37gm in NS 100ML IVPB SCH ×4 (06:08→22:00)
[2017-08-23 08:00] VITALS: BP 127/53
[2017-08-23 08:11] LABS: % IRON SATURATION 12 % (15-50); IRON 28 ug/dL (50-175); TOTAL IRON BINDING CAPACITY 230 ug/dL (250-450)
[2017-08-23 08:14] LABS: ALANINE AMINOTRANSFERASE 10 U/L (12-78); ALBUMIN 2.7 G/DL (3.4-5.0); ALBUMIN/GLOBULIN RATIO 0.4 (1.0-2.7); ALKALINE PHOSPHATASE 127 U/L (46-116); ANION GAP 14 mmol/L (5-15); ASPARTATE AMINO TRANSFERASE 17 U/L (15-37); BILIRUBIN,TOTAL 0.3 MG/DL (0.2-1.0); BLOOD UREA NITROGEN 69 mg/dL (7-18); CARBON DIOXIDE 23 MMOL/L (21-32); CHLORIDE 115 MMOL/L (98-107); FERRITIN 1163 NG/ML (8-388); PHOSPHORUS 3.4 MG/DL (2.5-4.9); POTASSIUM 5.5 MMOL/L (3.5-5.1); SODIUM 152 MMOL/L (136-145)
[2017-08-23 08:26] LABS: HEMATOCRIT 22.6 % (37.0-47.0); MEAN CORPUSCULAR VOLUME 100 FL (80-99); PLATELET COUNT 192 K/UL (150-450); RED BLOOD COUNT 2.25 M/UL (4.20-5.40); RED CELL DISTRIBUTION WIDTH 15.6 % (11.6-14.8)
[2017-08-23] MEDS: Docusate 100mg/10ml Liq GT SCH ×3 (08:48→17:39)
[2017-08-23] MEDS ORDERED: Bacitracin Oint 15gm Tube TOPIC SCH (09:00)
--- NOTE | 2017-08-23 09:29 | General Progress Note ---
Assessment/Plan Problem List: (1) UTI (urinary tract infection) (2) Sepsis ICD Codes: A41.9 - Sepsis, unspecified organism SNOMED: 76191856 (3) DVT (deep vein thrombosis) in ICD Codes: O22.30 - Deep phlebothrombosis in , unspecified trimester; I82.409 - Acute embolism and thrombosis of unspecified deep veins of unspecified lower extremity SNOMED: 84822432 (4) Diabetes ICD Codes: E11.9 - Type 2 diabetes mellitus without complications SNOMED: 40579458 (5) Anemia ICD Codes: D64.9 - Anemia, unspecified SNOMED: 472931097 Qualifiers: Qualified Codes: D64.9 - Anemia, unspecified (6) Hypernatremia ICD Codes: E87.0 - Hyperosmolality and hypernatremia SNOMED: 36926487 (7) Osteomyelitis of ankle or foot, left, acute ICD Codes: M86.172 - Other acute osteomyelitis, left ankle and foot SNOMED: 918927181 Status: unchanged Status Narrative UTI Anemia Osteomyelitis DM Renal failure Assessment/Plan Per ID and Surg D5 GT feeding per order transfuse check labs in am Subjective ROS Limited/Unobtainable: No Constitutional: Reports: malaise Allergies: Coded Allergies: No Known Allergies (Verified , 01/27/10) Objective Last 24 Hour Vital Signs Date Time Temp Pulse Resp B/P (MAP) Pulse Ox O2 Delivery O2 Flow Rate FiO2 08/23/17 08:35 86 20 99 Nasal Cannula 2.0 28 08/23/17 08:35 Nasal Cannula 2.0 28 08/23/17 08:34 99 Nasal Cannula 2.0 28 08/23/17 08:00 97.3 85 20 127/53 99 Nasal Cannula 2.0 97.3 08/23/17 04:00 91 08/23/17 04:00 97.6 88 24 130/66 95 Nasal Cannula 2.0 97.6 88 08/23/17 03:36 80 18 99 Nasal Cannula 2.0 28 08/23/17 03:26 79 18 98 Nasal Cannula 2.0 28 08/23/17 00:00 97.7 84 24 134/57 100 Nasal Cannula 2.0 97.7 84 08/23/17 00:00 84 08/22/17 23:26 86 18 99 Nasal Cannula 2.0 28 08/22/17 23:16 Nasal Cannula 2.0 28 08/22/17 23:16 99 Nasal Cannula 2.0 28 08/22/17 23:16 82 18 99 Nasal Cannula 2.0 28 08/22/17 23:16 82 18 Nasal Cannula 2.0 28 08/22/17 22:53 99.1 88 25 111/40 100 Nasal Cannula 2.0 99.1 08/22/17 22:30 97.7 89 24 133/60 100 Nasal Cannula 2.0 97.7 89 08/22/17 22:05 88 25 111/40 100 Nasal Cannula 2.0 08/22/17 21:29 91 26 108/37 100 Nasal Cannula 2.0 08/22/17 19:30 89 31 104/40 100 Nasal Cannula 2.0 08/22/17 19:26 99.1 08/22/17 19:11 99.5 102 22 169/63 96 Nasal Cannula 2.0 99.5 08/22/17 18:56 99.5 08/22/17 17:15 104 22 142/53 96 Nasal Cannula 2.0 08/22/17 17:08 103.0 106 24 149/69 98 Nasal Cannula 2.0 102.9 Intake and Output 08/22/17 08/23/17 19:00 07:00 Intake Total 0 ml 725 ml Output Total 800 ml Balance 0 ml -75 ml Intake Oral 0 ml IV Total 725 ml Output Urine Total 800 ml # Bowel Movements 1 Laboratory Tests 08/22/17 18:10: White Blood Count 10.9H, Red Blood Count 2.46L, Hemoglobin 7.8L, Hematocrit 24.4L, Mean Corpuscular Volume 99, Mean Corpuscular Hemoglobin 31.9H, Mean Corpuscular Hemoglobin Concent 32.1, Red Cell Distribution Width 15.9H, Platelet Count 214, Mean Platelet Volume 9.2, Neutrophils (%) (Auto) , Lymphocytes (%) (Auto) , Monocytes (%) (Auto) , Eosinophils (%) (Auto) , Basophils (%) (Auto) , Differential Total Cells Counted 100, Neutrophils % ( Manual) 71, Lymphocytes % (Manual) 23, Monocytes % (Manual) 2, Eosinophils % ( Manual) 3, Basophils % (Manual) 0, Band Neutrophils 1, Platelet Estimate Adequate, Platelet Morphology Normal, Polychromasia 1+, Hypochromasia 1+, Anisocytosis 1+, Macrocytosis 1+, Sodium Level 152H, Potassium Level 4.9, Chloride Level 115H, Carbon Dioxide Level 26, Anion Gap 11, Blood Urea Nitrogen 70H, Creatinine 2.0H, Estimat Glomerular Filtration Rate , Glucose Level 168H, Lactic Acid Level 2.10, Calcium Level 9.5, Total Bilirubin 0.3, Aspartate Amino Transf (AST/SGOT) 15, Alanine Aminotransferase (ALT/SGPT) 10L, Alkaline Phosphatase 123H, Total Creatine Kinase 62, Creatine Kinase MB < 0.5, Creatine Kinase MB Relative Index 0.8, Troponin I 0.002, C-Reactive Protein, Quantitative 19.7H, Pro-B-Type Natriuretic Peptide 1103H, Total Protein 10.0H, Albumin 2.5L, Globulin 7.5, Albumin/Globulin Ratio 0.3L 08/22/17 18:15: Urine Color Pale yellow, Urine Appearance Clear, Urine pH 8, Urine Specific [place] 1.010, Urine Protein 3+H, Urine Glucose (UA) Negative, Urine Ketones Negative, Urine Occult Blood 1+H, Urine Nitrite Negative, Urine Bilirubin Negative, Urine Urobilinogen Normal, Urine Leukocyte Esterase 2+H, Urine RBC 2- 4H, Urine WBC 20-30H, Urine Squamous Epithelial Cells Occasional, Urine Bacteria Occasional 08/22/17 21:15: Lactic Acid Level 1.90 08/23/17 06:50: Sodium Level 152H, Potassium Level 5.5H, Chloride Level 115H, Carbon Dioxide Level 23, Anion Gap 14, Blood Urea Nitrogen 69H, Creatinine 2.0H, Estimat Glomerular Filtration Rate , Glucose Level 152H, Calcium Level 9.0, Total Bilirubin 0.3, Aspartate Amino Transf (AST/SGOT) 17, Alanine Aminotransferase ( ALT/SGPT) 10L, Alkaline Phosphatase 127H, Troponin I 0.006, Pro-B-Type Natriuretic Peptide 1087H, Total Protein 9.2H, Albumin 2.7L, Globulin 6.5, Albumin/Globulin Ratio 0.4L, Uric Acid 8.6H, Phosphorus Level 3.4, Magnesium Level 2.6H, Iron Level 28L, Total Iron Binding Capacity 230L, Percent Iron Saturation 12L, Unsaturated Iron Binding 202, Ferritin 1163H, Vitamin B12 Level 582, Folate 15.9 08/23/17 08:10: White Blood Count 10.0, Red Blood Count 2.25L, Hemoglobin 7.0L, Hematocrit 22.6L , Mean Corpuscular Volume 100H, Mean Corpuscular Hemoglobin 31.3H, Mean Corpuscular Hemoglobin Concent 31.2L, Red Cell Distribution Width 15.6H, Platelet Count 192, Mean Platelet Volume 7.7, Neutrophils (%) (Auto) , Lymphocytes (%) (Auto) , Monocytes (%) (Auto) , Eosinophils (%) (Auto) , Basophils (%) (Auto) , Neutrophils % (Manual) [Pending], Lymphocytes % (Manual) [Pending], Platelet Estimate [Pending], Platelet Morphology [Pending], Hemoglobin A1c 6.5H Height (Feet): 5 Height (Inches): 5.00 Weight (Pounds): 173 General Appearance: no apparent distress Respiratory/Chest: decreased breath sounds Abdomen: soft Extremities: other - osteo left GEORGE MONDRAGON Aug 23, 2017 09:29
[2017-08-23] MEDS: Enoxaparin 80mg Inj SUBQ SCH (09:43)
[2017-08-23] MEDS ORDERED: NovoLOG Insulin Flexpen SUBQ SCH (11:30)
[2017-08-23 11:52] VITALS: BP 123/86
--- NOTE | 2017-08-23 14:02 | Infectious Diseases Prog Note ---
Assessment/Plan Problems: (1) Osteomyelitis of ankle or foot, left, acute Assessment & Plan: with worsening infection and osteomyelitis , continue vancomycin and Zosyn , she will require amputation for definitive treatment , surgery is following (2) Heel ulcer Assessment & Plan: not improving with worsening osteomyelitis , she will need amputation for source control , continue wide spectrum antibiotics (3) Sepsis Assessment & Plan: due to the above , continue wide spectrum antibiotics pending culture and possible amputations (4) Fever Assessment & Plan: due to the above , improving with wide spectrum antibiotics (5) Diabetes Assessment & Plan: recommend tight glycemic control to keep blood glucose between 100-140 Subjective Allergies: Coded Allergies: No Known Allergies (Verified , 01/27/10) Objective Vital Signs Last 24 Hour Vital Signs Date Time Temp Pulse Resp B/P (MAP) Pulse Ox O2 Delivery O2 Flow Rate FiO2 08/23/17 12:00 93 08/23/17 11:52 97.9 88 21 123/86 100 Nasal Cannula 2.0 97.9 08/23/17 11:30 74 20 100 Nasal Cannula 2.0 28 08/23/17 11:20 87 22 100 Nasal Cannula 2.0 28 08/23/17 08:45 85 22 99 Nasal Cannula 2.0 28 08/23/17 08:35 86 20 99 Nasal Cannula 2.0 28 08/23/17 08:35 Nasal Cannula 2.0 28 08/23/17 08:34 99 Nasal Cannula 2.0 28 08/23/17 08:00 97.3 85 20 127/53 99 Nasal Cannula 2.0 97.3 08/23/17 08:00 83 08/23/17 04:00 91 08/23/17 04:00 97.6 88 24 130/66 95 Nasal Cannula 2.0 97.6 88 08/23/17 03:36 80 18 99 Nasal Cannula 2.0 28 08/23/17 03:26 79 18 98 Nasal Cannula 2.0 28 08/23/17 00:00 97.7 84 24 134/57 100 Nasal Cannula 2.0 97.7 84 08/23/17 00:00 84 08/22/17 23:26 86 18 99 Nasal Cannula 2.0 28 08/22/17 23:16 Nasal Cannula 2.0 28 08/22/17 23:16 99 Nasal Cannula 2.0 28 08/22/17 23:16 82 18 99 Nasal Cannula 2.0 28 08/22/17 23:16 82 18 Nasal Cannula 2.0 28 08/22/17 22:53 99.1 88 25 111/40 100 Nasal Cannula 2.0 99.1 08/22/17 22:30 97.7 89 24 133/60 100 Nasal Cannula 2.0 97.7 89 08/22/17 22:05 88 25 111/40 100 Nasal Cannula 2.0 08/22/17 21:29 91 26 108/37 100 Nasal Cannula 2.0 08/22/17 19:30 89 31 104/40 100 Nasal Cannula 2.0 08/22/17 19:26 99.1 08/22/17 19:11 99.5 102 22 169/63 96 Nasal Cannula 2.0 99.5 08/22/17 18:56 99.5 08/22/17 17:15 104 22 142/53 96 Nasal Cannula 2.0 08/22/17 17:08 103.0 106 24 149/69 98 Nasal Cannula 2.0 102.9 Height (Feet): 5 Height (Inches): 5.00 Weight (Pounds): 173 Microbiology Date/Time Source Procedure Growth Status 08/22/17 18:15 Urine,Clean Catch Urine Culture - Preliminary NO GROWTH Resulted 08/23/17 02:30 Foot Left Gram Stain - Final Resulted 08/23/17 02:30 Foot Left Wound Culture Pending Resulted Laboratory Tests Test 08/22/17 18:10 08/22/17 18:15 08/22/17 21:15 08/23/17 06:50 White Blood Count 10.9 K/UL (4.8-10.8) H Red Blood Count 2.46 M/UL (4.20-5.40) L Hemoglobin 7.8 G/DL (12.0-16.0) L Hematocrit 24.4 % (37.0-47.0) L Mean Corpuscular Volume 99 FL (80-99) Mean Corpuscular Hemoglobin 31.9 PG (27.0-31.0) H Mean Corpuscular Hemoglobin Concent 32.1 G/DL (32.0-36.0) Red Cell Distribution Width 15.9 % (11.6-14.8) H Platelet Count 214 K/UL (150-450) Mean Platelet Volume 9.2 FL (6.5-10.1) Neutrophils (%) (Auto) % (45.0-75.0) Lymphocytes (%) (Auto) % (20.0-45.0) Monocytes (%) (Auto) % (1.0-10.0) Eosinophils (%) (Auto) % (0.0-3.0) Basophils (%) (Auto) % (0.0-2.0) Differential Total Cells Counted 100 Neutrophils % (Manual) 71 % (45-75) Lymphocytes % (Manual) 23 % (20-45) Monocytes % (Manual) 2 % (1-10) Eosinophils % (Manual) 3 % (0-3) Basophils % (Manual) 0 % (0-2) Band Neutrophils 1 % (0-8) Platelet Estimate Adequate Platelet Morphology Normal Polychromasia 1+ Hypochromasia 1+ Anisocytosis 1+ Macrocytosis 1+ Sodium Level 152 MMOL/L (136-145) H 152 MMOL/L (136-145) H Potassium Level 4.9 MMOL/L (3.5-5.1) 5.5 MMOL/L (3.5-5.1) H Chloride Level 115 MMOL/L (98-107) H 115 MMOL/L (98-107) H Carbon Dioxide Level 26 MMOL/L (21-32) 23 MMOL/L (21-32) Anion Gap 11 mmol/L (5-15) 14 mmol/L (5-15) Blood Urea Nitrogen 70 mg/dL (7-18) H 69 mg/dL (7-18) H Creatinine 2.0 MG/DL (0.55-1.30) H 2.0 MG/DL (0.55-1.30) H Estimat Glomerular Filtration Rate mL/min (>60) mL/min (>60) Glucose Level 168 MG/DL (74-106) H 152 MG/DL (74-106) H Lactic Acid Level 2.10 mmol/L (0.66-2.22) 1.90 mmol/L (0.66-2.22) Calcium Level 9.5 MG/DL (8.5-10.1) 9.0 MG/DL (8.5-10.1) Total Bilirubin 0.3 MG/DL (0.2-1.0) 0.3 MG/DL (0.2-1.0) Aspartate Amino Transf (AST/SGOT) 15 U/L (15-37) 17 U/L (15-37) Alanine Aminotransferase (ALT/SGPT) 10 U/L (12-78) L 10 U/L (12-78) L Alkaline Phosphatase 123 U/L (46-116) H 127 U/L (46-116) H Total Creatine Kinase 62 U/L (26-308) Creatine Kinase MB < 0.5 NG/ML (0.0-3.6) Creatine Kinase MB Relative Index 0.8 Troponin I 0.002 ng/mL (0.000-0.056) 0.006 ng/mL (0.000-0.056) C-Reactive Protein, Quantitative 19.7 mg/dL (0.00-0.90) H Pro-B-Type Natriuretic Peptide 1103 pg/mL (0-125) H 1087 pg/mL (0-125) H Total Protein 10.0 G/DL (6.4-8.2) H 9.2 G/DL (6.4-8.2) H Albumin 2.5 G/DL (3.4-5.0) L 2.7 G/DL (3.4-5.0) L Globulin 7.5 g/dL 6.5 g/dL Albumin/Globulin Ratio 0.3 (1.0-2.7) L 0.4 (1.0-2.7) L Urine Color Pale yellow Urine Appearance Clear Urine pH 8 (4.5-8.0) Urine Specific [place] 1.010 (1.005-1.035) Urine Protein 3+ (NEGATIVE) H Urine Glucose (UA) Negative (NEGATIVE) Urine Ketones Negative (NEGATIVE) Urine Occult Blood 1+ (NEGATIVE) H Urine Nitrite Negative (NEGATIVE) Urine Bilirubin Negative (NEGATIVE) Urine Urobilinogen Normal MG/DL (0.0-1.0) Urine Leukocyte Esterase 2+ (NEGATIVE) H Urine RBC 2-4 /HPF (0 - 2) H Urine WBC 20-30 /HPF (0 - 2) H Urine Squamous Epithelial Cells Occasional /LPF Urine Bacteria Occasional /HPF (NONE) Uric Acid 8.6 MG/DL (2.6-7.2) H Phosphorus Level 3.4 MG/DL (2.5-4.9) Magnesium Level 2.6 MG/DL (1.8-2.4) H Iron Level 28 ug/dL (50-175) L Total Iron Binding Capacity 230 ug/dL (250-450) L Percent Iron Saturation 12 % (15-50) L Unsaturated Iron Binding 202 ug/dL (112-346) Ferritin 1163 NG/ML (8-388) H Vitamin B12 Level 582 PG/ML (193-986) Folate 15.9 NG/ML (8.6-58.9) Test 08/23/17 08:10 White Blood Count 10.0 K/UL (4.8-10.8) Red Blood Count 2.25 M/UL (4.20-5.40) L Hemoglobin 7.0 G/DL (12.0-16.0) L Hematocrit 22.6 % (37.0-47.0) L Mean Corpuscular Volume 100 FL (80-99) H Mean Corpuscular Hemoglobin 31.3 PG (27.0-31.0) H Mean Corpuscular Hemoglobin Concent 31.2 G/DL (32.0-36.0) L Red Cell Distribution Width 15.6 % (11.6-14.8) H Platelet Count 192 K/UL (150-450) Mean Platelet Volume 7.7 FL (6.5-10.1) Neutrophils (%) (Auto) % (45.0-75.0) Lymphocytes (%) (Auto) % (20.0-45.0) Monocytes (%) (Auto) % (1.0-10.0) Eosinophils (%) (Auto) % (0.0-3.0) Basophils (%) (Auto) % (0.0-2.0) Differential Total Cells Counted 100 Neutrophils % (Manual) 66 % (45-75) Lymphocytes % (Manual) 23 % (20-45) Monocytes % (Manual) 10 % (1-10) Eosinophils % (Manual) 1 % (0-3) Basophils % (Manual) 0 % (0-2) Band Neutrophils 0 % (0-8) Platelet Estimate Adequate Platelet Morphology Normal Polychromasia 1+ Hypochromasia 1+ Anisocytosis 1+ Macrocytosis 1+ Hemoglobin A1c 6.5 % (4.3-6.0) H Current Medications Medications (Trade) Dose Ordered Sig/Nancy Route PRN Reason Start Time Stop Time Status Last Admin Dose Admin Acetaminophen (Tylenol) 650 mg Q4H PRN GT temp 100 mild pain 08/22/17 22:30 09/21/17 22:29 Albuterol Sulfate (Proventil) 2.5 mg Q4HRT HHN 08/22/17 23:00 08/27/17 22:59 08/23/17 11:20 Clonidine HCl (Catapres Tab) 0.1 mg EVERY 6 HOURS PRN GT For High BP 160 syst 08/22/17 22:30 09/21/17 22:29 Dextrose 1,000 ml @ 75 mls/hr [id number] IV 08/23/17 09:30 09/22/17 09:29 08/23/17 09:41 Dextrose (Dextrose 50%) 25 ml STAT PRN IV Hypoglycemia 08/23/17 09:15 09/22/17 09:14 Dextrose (Dextrose 50%) 50 ml STAT PRN IV Hypoglycemia 08/23/17 09:15 09/22/17 09:14 Docusate Sodium (Colace) 100 mg TID GT 08/23/17 09:00 09/22/17 08:59 08/23/17 13:14 Enoxaparin Sodium (Lovenox) 80 mg DAILY SUBQ 08/23/17 09:30 09/22/17 09:29 08/23/17 09:43 Famotidine (Pepcid) 20 mg BID GT 08/23/17 09:00 09/22/17 08:59 08/23/17 08:48 Insulin Aspart (NovoLOG) BEFORE MEALS AND HS SUBQ 08/23/17 11:30 09/22/17 11:29 08/23/17 11:42 Levetiracetam (Keppra) 500 mg BID GT 08/23/17 09:00 09/22/17 08:59 08/23/17 08:48 Metoclopramide HCl (Reglan) 5 mg Q6HR GT 08/23/17 00:00 09/22/17 00:00 08/23/17 13:15 Ondansetron HCl (Zofran) 4 mg Q6H PRN IVP Nausea & Vomiting 08/22/17 22:45 09/21/17 22:44 Piperacillin Sod/ Tazobactam Sod 3.375 gm/Sodium Chloride 110 ml @ 27.5 mls/hr EVERY 8 HOURS IVPB 08/22/17 23:30 08/27/17 23:29 08/23/17 06:08 Polyethylene Glycol (Miralax) 17 gm DAILY PRN GT Constipation 08/22/17 22:30 09/21/17 22:29 Tramadol HCl (Ultram) 25 mg Q6HR PRN GT sever pain 08/22/17 22:30 08/29/17 22:29 Vancomycin HCl (Vanco rx to dose) 1 ea DAILY PRN MISC Per rx protocol 08/22/17 22:45 09/21/17 22:44 Ayala Forman M.D. Aug 23, 2017 14:02
[2017-08-23 16:00] VITALS: BP 139/57
--- NOTE | 2017-08-23 16:15 | Consultation ---
History of Present Illness General Date patient seen: Aug 23, 2017 Chief Complaint: General Complaint Reason for Consultation: left leg infection Present Illness HPI 82F well known to me from prior admissions. Presented with fever and emesis. Had long history of infected left foot and osteo. Strong recommendation for amputation prior given failure of medical treatment over prolonged period with wound care and IV Abx. POA/next of kin declined surgery upon last admission and have not yet decided as to my knowledge. they were planning on obtaining second opinion and more information prior to making decisions. Since has not improved and continues to have infected osteo with worsening wounds on foot/heel /leg. Surgery called to evaluate and assist with care. patient seen, chart reviewed, patient examined. Allergies: Coded Allergies: No Known Allergies (Verified , 01/27/10) Medication History Scheduled Albuterol Sulfate* (Albuterol Sulfate Hhn*), 2.5 MG HHN Q4HRT Amlodipine Besylate (Norvasc), 5 MG GT DAILY, (Reported) Amlodipine Besylate (Norvasc), 5 MG GT BID Ampicillin Trihydrate (Ampicillin Trihydrate), 500 MG GT EVERY 6 HOURS Apixaban (Eliquis), 5 MG GT BID Ascorbic Acid* (Vitamin C*), 500 MG GT DAILY, (Reported) Ascorbic Acid* (Vitamin C*), 500 MG GT DAILY, (Reported) Bacitracin (Bacitracin), 1 APPLIC TOPIC BID Carvedilol (Coreg), 6.25 MG GT EVERY 12 HOURS Cefdinir (Cefdinir), 300 MG ORAL Q12HR Cranberry (Cranberry), 450 MG GT DAILY, (Reported) Docusate Sodium (Docusate Sodium), 100 MG GT TID Docusate Sodium* (Docusate Sodium*), 100 MG GT TWICE A DAY, (Reported) Docusate Sodium* (Colace*), 100 MG GT TWICE A DAY, (Reported) Doxycycline Hyclate (Doxycycline Hyclate), 100 MG GT EVERY 12 HOURS Enoxaparin* (Lovenox*), 80 MG SUBQ QPM Famotidine (Famotidine), 20 MG GT BID Furosemide* (Lasix*), 20 MG ORAL DAILY Heparin Sodium,Porcine/Pf (Heparin Sod 1,000 Unit/Ml Vial), 5,000 UNITS SUBQ BID , (Reported) Insulin Aspart (Novolog Flexpen), 0 UNITS SUBQ BEFORE MEALS AND HS Insulin Aspart (Novolog Flexpen), 0 UNITS SUBQ EVERY 6 HOURS Levetiracetam (Keppra), 500 MG GT DAILY, (Reported) Levetiracetam (Levetiracetam), 500 MG GT BID Metoclopramide Hcl* (Metoclopramide Hcl*), 5 MG GT EVERY 6 HOURS Multivitamin (Daily Vitamin), 1 TAB GT DAILY, (Reported) Multivitamin With Minerals (Multivitamins With Minerals*), 1 TAB GT DAILY, ( Reported) Omeprazole (Omeprazole), 20 MG GT DAILY, (Reported) Phenytoin (Phenytoin*), 100 MG GT BID Phenytoin Sodium Extended* (Dilantin*), Unknown Dose GT THREE TIMES A DAY, ( Reported) Potassium Chloride (Potassium Chloride), 20 MEQ ORAL DAILY Ranitidine Hcl* (Zantac*), 150 MG GT DAILY, (Reported) Simvastatin (Zocor), 40 MG GT BEDTIME, (Reported) Tramadol Hcl* (Ultram*), 50 MG GT BID, (Reported) Tramadol Hcl* (Ultram*), 25 MG GT Q8HR Warfarin Sod* (Coumadin*), 2.5 MG ORAL COUMADIN Warfarin Sod* (Coumadin*), 5 MG GT DAILY, (Reported) Zinc Sulfate (Zinc Sulfate*), 220 MG GT DAILY, (Reported) Scheduled PRN Acetaminophen (Tylenol 8 Hour), 650 MG GT Q4HR PRN for Mild Pain/Temp > 100.5, ( Reported) Acetaminophen (Acetaminophen), 650 MG GT Q4H PRN Acetaminophen* (Tylenol Extra Strength*), 1,000 MG GT Q4HR PRN for Mild Pain/ Temp > 100.5, (Reported) Acetaminophen* (Acetaminophen 325MG Tablet*), 650 MG GT Q4H PRN for For Pain, ( Reported) Clonidine Hcl* (Catapres*), 0.1 MG GT EVERY 6 HOURS PRN for For High Blood Pressure, (Reported) Diphenhydramine Hcl* (Benadryl*), 25 MG GT Q6H PRN for Itching, (Reported) Magnesium Hydroxide (Milk of Magnesia), 30 ML GT DAILY PRN for Constipation, ( Reported) Na Phos,M-B/Na Phos,Di-Ba* (Fleet Enema*), 133 ML RECTAL DAILY PRN for Constipation, (Reported) Nitroglycerin (Nitroglycerin), 0.4 MG SL EVERY 5 MIN PRN for CHEST PAIN, ( Reported) Ondansetron (Zofran), 4 MG ORAL Q6H PRN for Nausea & Vomiting Ondansetron* (Zofran*), 4 MG ORAL Q6H PRN for Nausea & Vomiting, (Reported) Polyethylene Glycol 3350* (Miralax*), 17 GM GT DAILY PRN for Constipation, ( Reported) [[facility] pharmacy to dose], 1 EA MISC DAILY PRN Miscellaneous Medications [regular insulin], (Reported) Patient History Limited by: medical condition History Provided By: Medical Record, PMD Healthcare decision maker Estevan Lebron Resuscitation status Advanced Directive on File Past Medical/Surgical History Past Medical/Surgical History: (1) Decubital ulcer (2) G tube feedings (3) PEG (percutaneous endoscopic gastrostomy) adjustment/replacement/removal (4) Hyperkalemia, diminished renal excretion (5) Dermatitis (6) Bronchitis (7) Vomiting (8) Vomiting (9) [id number] (10) Right hemiparesis (11) Abnormal LFTs (12) Prolonged PTT (13) Malfunction of gastrostomy tube (14) Malfunction of gastrostomy tube (15) Malfunction of gastrostomy tube (16) Malfunction of percutaneous endoscopic gastrostomy (PEG) tube (17) Gastrostomy tube obstruction (18) Sacral decubitus ulcer, stage III (19) Hyponatremia (20) Dehydration (21) Dyspnea (22) Sepsis (23) Healthcare-associated pneumonia (24) Functional quadriplegia (25) Pneumonia (26) Dementia (27) Anemia (28) Diabetes (29) Hypernatremia (30) Sepsis (31) UTI (urinary tract infection) (32) DVT (deep vein thrombosis) in (33) Fever (34) Sepsis (35) Heel ulcer (36) Osteomyelitis of ankle or foot, left, acute Review of Systems ROS Narrative cannot obtain given patients medical condition Physical Exam General Appearance: no apparent distress HEENT: mucous membranes moist Respiratory/Chest: chest wall non-tender, normal breath sounds, no respiratory distress, no accessory muscle use Cardiovascular/Chest: other - decreased perpiheral pulses Abdomen: normal bowel sounds, non tender, soft, no organomegaly, no mass Extremities: other - see wound care photos Skin Exam: warm/dry Neurologic: unresponsiveness Last 24 Hour Vital Signs Date Time Temp Pulse Resp B/P (MAP) Pulse Ox O2 Delivery O2 Flow Rate FiO2 08/23/17 16:00 98.2 96 22 139/57 99 Nasal Cannula 1.0 98.2 08/23/17 15:35 97 22 100 Nasal Cannula 2.0 28 08/23/17 12:00 93 08/23/17 11:52 97.9 88 21 123/86 100 Nasal Cannula 2.0 97.9 08/23/17 11:30 74 20 100 Nasal Cannula 2.0 28 08/23/17 11:20 87 22 100 Nasal Cannula 2.0 28 08/23/17 08:45 85 22 99 Nasal Cannula 2.0 28 08/23/17 08:35 86 20 99 Nasal Cannula 2.0 28 08/23/17 08:35 Nasal Cannula 2.0 28 08/23/17 08:34 99 Nasal Cannula 2.0 28 08/23/17 08:00 97.3 85 20 127/53 99 Nasal Cannula 2.0 97.3 08/23/17 08:00 83 08/23/17 04:00 91 08/23/17 04:00 97.6 88 24 130/66 95 Nasal Cannula 2.0 97.6 88 08/23/17 03:36 80 18 99 Nasal Cannula 2.0 28 08/23/17 03:26 79 18 98 Nasal Cannula 2.0 28 08/23/17 00:00 97.7 84 24 134/57 100 Nasal Cannula 2.0 97.7 84 08/23/17 00:00 84 08/22/17 23:26 86 18 99 Nasal Cannula 2.0 28 08/22/17 23:16 Nasal Cannula 2.0 28 08/22/17 23:16 99 Nasal Cannula 2.0 28 08/22/17 23:16 82 18 99 Nasal Cannula 2.0 28 08/22/17 23:16 82 18 Nasal Cannula 2.0 28 08/22/17 22:53 99.1 88 25 111/40 100 Nasal Cannula 2.0 99.1 08/22/17 22:30 97.7 89 24 133/60 100 Nasal Cannula 2.0 97.7 89 08/22/17 22:05 88 25 111/40 100 Nasal Cannula 2.0 08/22/17 21:29 91 26 108/37 100 Nasal Cannula 2.0 08/22/17 19:30 89 31 104/40 100 Nasal Cannula 2.0 08/22/17 19:26 99.1 08/22/17 19:11 99.5 102 22 169/63 96 Nasal Cannula 2.0 99.5 08/22/17 18:56 99.5 08/22/17 17:15 104 22 142/53 96 Nasal Cannula 2.0 08/22/17 17:08 103.0 106 24 149/69 98 Nasal Cannula 2.0 102.9 Intake and Output 08/22/17 08/23/17 19:00 07:00 Intake Total 0 ml 725 ml Output Total 800 ml Balance 0 ml -75 ml Intake Oral 0 ml IV Total 725 ml Output Urine Total 800 ml # Bowel Movements 1 Laboratory Tests Test 08/22/17 18:10 08/22/17 18:15 08/22/17 21:15 08/23/17 06:50 White Blood Count 10.9 K/UL (4.8-10.8) H Red Blood Count 2.46 M/UL (4.20-5.40) L Hemoglobin 7.8 G/DL (12.0-16.0) L Hematocrit 24.4 % (37.0-47.0) L Mean Corpuscular Volume 99 FL (80-99) Mean Corpuscular Hemoglobin 31.9 PG (27.0-31.0) H Mean Corpuscular Hemoglobin Concent 32.1 G/DL (32.0-36.0) Red Cell Distribution Width 15.9 % (11.6-14.8) H Platelet Count 214 K/UL (150-450) Mean Platelet Volume 9.2 FL (6.5-10.1) Neutrophils (%) (Auto) % (45.0-75.0) Lymphocytes (%) (Auto) % (20.0-45.0) Monocytes (%) (Auto) % (1.0-10.0) Eosinophils (%) (Auto) % (0.0-3.0) Basophils (%) (Auto) % (0.0-2.0) Differential Total Cells Counted 100 Neutrophils % (Manual) 71 % (45-75) Lymphocytes % (Manual) 23 % (20-45) Monocytes % (Manual) 2 % (1-10) Eosinophils % (Manual) 3 % (0-3) Basophils % (Manual) 0 % (0-2) Band Neutrophils 1 % (0-8) Platelet Estimate Adequate Platelet Morphology Normal Polychromasia 1+ Hypochromasia 1+ Anisocytosis 1+ Macrocytosis 1+ Sodium Level 152 MMOL/L (136-145) H 152 MMOL/L (136-145) H Potassium Level 4.9 MMOL/L (3.5-5.1) 5.5 MMOL/L (3.5-5.1) H Chloride Level 115 MMOL/L (98-107) H 115 MMOL/L (98-107) H Carbon Dioxide Level 26 MMOL/L (21-32) 23 MMOL/L (21-32) Anion Gap 11 mmol/L (5-15) 14 mmol/L (5-15) Blood Urea Nitrogen 70 mg/dL (7-18) H 69 mg/dL (7-18) H Creatinine 2.0 MG/DL (0.55-1.30) H 2.0 MG/DL (0.55-1.30) H Estimat Glomerular Filtration Rate mL/min (>60) mL/min (>60) Glucose Level 168 MG/DL (74-106) H 152 MG/DL (74-106) H Lactic Acid Level 2.10 mmol/L (0.66-2.22) 1.90 mmol/L (0.66-2.22) Calcium Level 9.5 MG/DL (8.5-10.1) 9.0 MG/DL (8.5-10.1) Total Bilirubin 0.3 MG/DL (0.2-1.0) 0.3 MG/DL (0.2-1.0) Aspartate Amino Transf (AST/SGOT) 15 U/L (15-37) 17 U/L (15-37) Alanine Aminotransferase (ALT/SGPT) 10 U/L (12-78) L 10 U/L (12-78) L Alkaline Phosphatase 123 U/L (46-116) H 127 U/L (46-116) H Total Creatine Kinase 62 U/L (26-308) Creatine Kinase MB < 0.5 NG/ML (0.0-3.6) Creatine Kinase MB Relative Index 0.8 Troponin I 0.002 ng/mL (0.000-0.056) 0.006 ng/mL (0.000-0.056) C-Reactive Protein, Quantitative 19.7 mg/dL (0.00-0.90) H Pro-B-Type Natriuretic Peptide 1103 pg/mL (0-125) H 1087 pg/mL (0-125) H Total Protein 10.0 G/DL (6.4-8.2) H 9.2 G/DL (6.4-8.2) H Albumin 2.5 G/DL (3.4-5.0) L 2.7 G/DL (3.4-5.0) L Globulin 7.5 g/dL 6.5 g/dL Albumin/Globulin Ratio 0.3 (1.0-2.7) L 0.4 (1.0-2.7) L Urine Color Pale yellow Urine Appearance Clear Urine pH 8 (4.5-8.0) Urine Specific [place] 1.010 (1.005-1.035) Urine Protein 3+ (NEGATIVE) H Urine Glucose (UA) Negative (NEGATIVE) Urine Ketones Negative (NEGATIVE) Urine Occult Blood 1+ (NEGATIVE) H Urine Nitrite Negative (NEGATIVE) Urine Bilirubin Negative (NEGATIVE) Urine Urobilinogen Normal MG/DL (0.0-1.0) Urine Leukocyte Esterase 2+ (NEGATIVE) H Urine RBC 2-4 /HPF (0 - 2) H Urine WBC 20-30 /HPF (0 - 2) H Urine Squamous Epithelial Cells Occasional /LPF Urine Bacteria Occasional /HPF (NONE) Uric Acid 8.6 MG/DL (2.6-7.2) H Phosphorus Level 3.4 MG/DL (2.5-4.9) Magnesium Level 2.6 MG/DL (1.8-2.4) H Iron Level 28 ug/dL (50-175) L Total Iron Binding Capacity 230 ug/dL (250-450) L Percent Iron Saturation 12 % (15-50) L Unsaturated Iron Binding 202 ug/dL (112-346) Ferritin 1163 NG/ML (8-388) H Vitamin B12 Level 582 PG/ML (193-986) Folate 15.9 NG/ML (8.6-58.9) Test 08/23/17 08:10 White Blood Count 10.0 K/UL (4.8-10.8) Red Blood Count 2.25 M/UL (4.20-5.40) L Hemoglobin 7.0 G/DL (12.0-16.0) L Hematocrit 22.6 % (37.0-47.0) L Mean Corpuscular Volume 100 FL (80-99) H Mean Corpuscular Hemoglobin 31.3 PG (27.0-31.0) H Mean Corpuscular Hemoglobin Concent 31.2 G/DL (32.0-36.0) L Red Cell Distribution Width 15.6 % (11.6-14.8) H Platelet Count 192 K/UL (150-450) Mean Platelet Volume 7.7 FL (6.5-10.1) Neutrophils (%) (Auto) % (45.0-75.0) Lymphocytes (%) (Auto) % (20.0-45.0) Monocytes (%) (Auto) % (1.0-10.0) Eosinophils (%) (Auto) % (0.0-3.0) Basophils (%) (Auto) % (0.0-2.0) Differential Total Cells Counted 100 Neutrophils % (Manual) 66 % (45-75) Lymphocytes % (Manual) 23 % (20-45) Monocytes % (Manual) 10 % (1-10) Eosinophils % (Manual) 1 % (0-3) Basophils % (Manual) 0 % (0-2) Band Neutrophils 0 % (0-8) Platelet Estimate Adequate Platelet Morphology Normal Polychromasia 1+ Hypochromasia 1+ Anisocytosis 1+ Macrocytosis 1+ Hemoglobin A1c 6.5 % (4.3-6.0) H Microbiology Date/Time Source Procedure Growth Status 08/22/17 18:15 Urine,Clean Catch Urine Culture - Preliminary NO GROWTH Resulted 08/23/17 02:30 Foot Left Gram Stain - Final Resulted 08/23/17 02:30 Foot Left Wound Culture Pending Resulted Height (Feet): 5 Height (Inches): 5.00 Weight (Pounds): 173 Medications Current Medications Medications (Trade) Dose Ordered Sig/Nancy Route PRN Reason Start Time Stop Time Status Last Admin Dose Admin Acetaminophen (Tylenol) 650 mg Q4H PRN GT temp 100 mild pain 08/22/17 22:30 09/21/17 22:29 Albuterol Sulfate (Proventil) 2.5 mg Q4HRT HHN 08/22/17 23:00 08/27/17 22:59 08/23/17 15:35 Clonidine HCl (Catapres Tab) 0.1 mg EVERY 6 HOURS PRN GT For High BP 160 syst 08/22/17 22:30 09/21/17 22:29 Dextrose 1,000 ml @ 75 mls/hr [id number] IV 08/23/17 09:30 09/22/17 09:29 08/23/17 09:41 Dextrose (Dextrose 50%) 25 ml STAT PRN IV Hypoglycemia 08/23/17 09:15 09/22/17 09:14 Dextrose (Dextrose 50%) 50 ml STAT PRN IV Hypoglycemia 08/23/17 09:15 09/22/17 09:14 Docusate Sodium (Colace) 100 mg TID GT 08/23/17 09:00 09/22/17 08:59 08/23/17 13:14 Enoxaparin Sodium (Lovenox) 80 mg DAILY SUBQ 08/23/17 09:30 09/22/17 09:29 08/23/17 09:43 Famotidine (Pepcid) 20 mg BID GT 08/23/17 09:00 09/22/17 08:59 08/23/17 08:48 Insulin Aspart (NovoLOG) BEFORE MEALS AND HS SUBQ 08/23/17 11:30 09/22/17 11:29 08/23/17 11:42 Levetiracetam (Keppra) 500 mg BID GT 08/23/17 09:00 09/22/17 08:59 08/23/17 08:48 Metoclopramide HCl (Reglan) 5 mg Q6HR GT 08/23/17 00:00 09/22/17 00:00 08/23/17 13:15 Ondansetron HCl (Zofran) 4 mg Q6H PRN IVP Nausea & Vomiting 08/22/17 22:45 09/21/17 22:44 Piperacillin Sod/ Tazobactam Sod 3.375 gm/Sodium Chloride 110 ml @ 27.5 mls/hr EVERY 8 HOURS IVPB 08/22/17 23:30 08/27/17 23:29 08/23/17 06:08 Polyethylene Glycol (Miralax) 17 gm DAILY PRN GT Constipation 08/22/17 22:30 09/21/17 22:29 Tramadol HCl (Ultram) 25 mg Q6HR PRN GT sever pain 08/22/17 22:30 08/29/17 22:29 Vancomycin HCl (Vanco rx to dose) 1 ea DAILY PRN MISC Per rx protocol 08/22/17 22:45 09/21/17 22:44 Assessment/Plan Problem List: (1) Osteomyelitis of ankle or foot, left, acute Assessment & Plan: continues to have worsening osteo and infection of left foot. ulcerations worse despite good wound care. still recommend amputation. will reach out to family/poa/next of kin again for consent. will explain in detail again current condition and care plan thank you for this consultation. will follow with recs cont wound care cont abx. ICD Codes: M86.172 - Other acute osteomyelitis, left ankle and foot SNOMED: [id number] Status: progressing RogepromiseoliLinnette estebanya Aug 23, 2017 16:15
[2017-08-23] MEDS: NovoLOG Insulin Flexpen SUBQ SCH (17:40)
--- NOTE | 2017-08-23 18:00 | History and Physical Report ---
DATE OF ADMISSION: 08/23/2017 HISTORY OF PRESENT ILLNESS: The patient is a 82-year-old female. This is her second or third admission here at [facility]. She lives in [facility]. She has multiple medical problems. She came in with fever and septic related symptoms. PAST MEDICAL HISTORY: Significant for diabetes mellitus, dementia, GT tube, functional quadriplegia, hypertension, hypercholesterolemia, seizure disorder, aphasia, dementia. The patient also known to have left heel osteomyelitis which was treated with antibiotics also with deep vein thrombosis which was treated with anticoagulant however the family who were approached in previous admission with regard to amputation declined amputation hence the patient is back with septic symptoms. PHYSICAL EXAMINATION: GENERAL: The patient is somewhat in position. She is lethargic. VITAL SIGNS: Temperature 97.3, pulse rate 85, blood pressure today is 127/53, pulse ox 99% room air. NECK: Rigid to all directions. LUNGS: Poor inspiratory effort. HEART: Slightly tachycardia. ABDOMEN: Soft and distended. GT tube in place. EXTREMITIES: Left heel ulceration and evidence of osteomyelitis. Degenerative joint disease changes. LABORATORY RESULTS: Done in emergency room significant for hemoglobin of 7.8. Creatinine of 2, BUN of 70, sodium of 152, and glucose 168. Urinalysis has 30 wbc's 2+ leukocyte esterase, there is no other data available. IMPRESSION: The patient presents with fever, anemia, renal failure with evidence of infection in the form of urinary tract infection and osteomyelitis. PLAN: At this point is to hydrate, antibiotics, continue on Lovenox. Repeat duplex of the lower extremities. Approached family with regard to amputation, pulmonary treatment, ID evaluation and surgical evaluation. According to how the patient's condition evolves, we make the proper changes in our future management. Estevan Orozco M.D. DR: Theron JOB#: [id number] CC:
--- NOTE | 2017-08-23 18:44 | Diagnostic Imaging Report ---
Indication: Shortness of breath Technique: XRAY Chest 1v Comparison: 07/21/2017 Findings: Limited exam with patient's chin covering portions of the bilateral apices and left upper lung. Heart size and mediastinal contours are stable. There is chronic mild increased interstitial markings. No definite focal airspace consolidation. No pleural effusion or pneumothorax. There is osteopenia and degenerative change of the spine. No acute osseous abnormality. IMPRESSION: Limited exam with obscuration of portions of the right apex and left upper lung. Pathology in these regions is not entirely excluded. No focal consolidation seen in the remainder of the visualized lungs. No pleural effusion or pneumothorax. Repeat exam recommended. Study obtained via the emergency department however patient admitted to the hospital at time of dictation of the final report.
[2017-08-23 20:00] VITALS: BP 129/74
--- NOTE | 2017-08-23 23:15 | Consultation ---
DATE OF CONSULTATION: 08/23/2017 INFECTIOUS DISEASE CONSULTATION CONSULTING PHYSICIAN: Ayala Forman M.D. REQUESTING PHYSICIAN: Estevan Orozco M.D. REASON FOR CONSULTATION: Left heel and foot osteomyelitis, recommendation for antibiotics treatment, complicated with sepsis. HISTORY OF PRESENT ILLNESS: The patient is an 82-year-old female, well known to me from previous admission, who presented initially with left heel decubitus pressure wound and underlying osteomyelitis, was treated with IV vancomycin for six weeks with no significant improvement in her osteomyelitis, was re-admitted again in mid July for the same problem. Plan was for amputation of the left leg , below the knee on her previous admission since her MRI at that time showed worsening osteomyelitis in spite of being treated with antibiotics, but conservative did not want to proceed with that option even though she was aware of the risk, so she was discharged back to the retirement on oral antibiotics pending decision from the conservative regarding her leg amputation .Yesterday, the patient was brought back to the emergency room with fever and sepsis. She was febrile with temperature of 103 degrees concerning for sepsis with urinary tract infection and left foot worsening wound, which was concerning for worsening underlying osteomyelitis of the left foot So, Infectious Disease consultation was requested for further evaluation and management. As of note, the patient is poor historian, cannot provide any history. History was mainly obtained from the medical record and nursing staff. PAST MEDICAL HISTORY: Significant for diabetes, COPD, CVA, dementia, seizure, and left heel osteomyelitis. PAST SURGICAL HISTORY: Not on record. MEDICATIONS: The patient is on vancomycin and Zosyn. For the rest of her medications, please refer to MAR. ALLERGIES: No known drug allergy. SOCIAL HISTORY: She is a retirement resident. No recent drugs, tobacco, or alcohol. FAMILY HISTORY: Unable to obtain. REVIEW OF SYSTEMS: Unable to obtain, the patient is poor historian. PHYSICAL EXAMINATION: GENERAL: Elderly female, lying in bed, unresponsive with tongue taking out, has deep breathing, not in distress. VITAL SIGNS: Temperature 97.9 degrees, pulse 88, respirations 21, blood pressure 123/86, and pulse oximetry 100% on two liters nasal cannula. HEENT: Normocephalic and atraumatic. Pupils are reactive to light. Moist oral mucosa. No exudate. Dry tongue. NECK: Supple. No lymphadenopathy. CARDIOVASCULAR: Regular rate and rhythm. No murmur or gallop. LUNGS: Clear bilaterally. No wheezing or rhonchi. ABDOMEN: Soft, nontender, and nondistended. Positive bowel sounds. No hepatosplenomegaly. No ascites. EXTREMITIES: She had left heel wound with granulation at the base and skin necrosis. She also has left lateral foot wound with granulated tissue at the base. Evidence of Eschar at the bottom of her left foot with foul smell. LABORATORY AND DIAGNOSTIC DATA: Labs showed white count of 10,000, hemoglobin of 7, and platelet count of 192. BUN of 69 and creatinine of 2. C-reactive protein of 19.7. Urinalysis showed +2 leukocyte esterase, wbc 20-30, and occasional bacteria. Microbiology, urine culture on 08/22/2017 so far pending and wound culture of the left heel pending. Previous left heel culture showed Proteus mirabilis, E. coli, and Enterococcus faecalis and sensitive. Imaging, chest x-ray on 08/22/2017 was done, not reported yet. ASSESSMENT AND RECOMMENDATIONS: 1. acute Osteomyelitis of the left foot on top of chronic with worsening infection complicated with sepsis and fever . Continue vancomycin and Zosyn empiric coverage for now. The patient will need amputation at this point for source control. Surgery team is following. D/w conservative 2. chronic heel wound ulcer . not improving Continue offloading, local wound care as needed and wide-spectrum antibiotics. Consult wound care team. 3. Sepsis with leukocytosis due to the above. Continue wide-spectrum antibiotics pending culture and amputation of the left leg for source control. 4. Fever due to the above, improving with wide-spectrum antibiotics. 5. Diabetes. Recommend tight glycemic control to keep blood glucose between 100 to 140. Thank you for the consult. ID will continue to follow. Ayala Forman M.D. DR: ALLEN JOB#: [id number] CC: NIMCO
[2017-08-24] VITALS: BP 144/57
[2017-08-24] MEDS: Metoclopramide 10mg/10ml Liq GT SCH ×4 (00:19→17:58)
[2017-08-24] MEDS: NovoLOG Insulin Flexpen SUBQ SCH ×4 (00:21→17:59)
[2017-08-24] MEDS: Albuterol ud Inhalation HHN SCH ×5 (03:41→19:14)
[2017-08-24 04:00] VITALS: BP 128/80
[2017-08-24] MEDS: Zoysn 3.37gm in NS 100ML IVPB SCH ×3 (05:38→21:32)
[2017-08-24 08:00] VITALS: BP 130/88
[2017-08-24] MEDS ORDERED: Vancomycin 1gm/D5W 275ml IVPB ONE ×2 (08:00)
[2017-08-24] MEDS: Docusate 100mg/10ml Liq GT SCH ×3 (08:14→17:58)
[2017-08-24] MEDS: Enoxaparin 80mg Inj SUBQ SCH (08:16)
--- NOTE | 2017-08-24 09:26 | General Progress Note ---
Assessment/Plan Problem List: (1) UTI (urinary tract infection) (2) Sepsis ICD Codes: A41.9 - Sepsis, unspecified organism SNOMED: 77390810 (3) DVT (deep vein thrombosis) in ICD Codes: O22.30 - Deep phlebothrombosis in , unspecified trimester; I82.409 - Acute embolism and thrombosis of unspecified deep veins of unspecified lower extremity SNOMED: 39611420 (4) Diabetes ICD Codes: E11.9 - Type 2 diabetes mellitus without complications SNOMED: 86058990 (5) Anemia ICD Codes: D64.9 - Anemia, unspecified SNOMED: 297931266 Qualifiers: Qualified Codes: D64.9 - Anemia, unspecified (6) Hypernatremia ICD Codes: E87.0 - Hyperosmolality and hypernatremia SNOMED: 83714953 (7) Osteomyelitis of ankle or foot, left, acute ICD Codes: M86.172 - Other acute osteomyelitis, left ankle and foot SNOMED: 739740507 Status: unchanged Assessment/Plan Per ID and Surg Labs today pending D5 GT feeding per order transfuse Subjective ROS Limited/Unobtainable: No Constitutional: Reports: malaise, weakness Allergies: Coded Allergies: No Known Allergies (Verified , 01/27/10) Objective Last 24 Hour Vital Signs Date Time Temp Pulse Resp B/P (MAP) Pulse Ox O2 Delivery O2 Flow Rate FiO2 08/24/17 07:30 83 20 100 Nasal Cannula 2.0 28 08/24/17 07:19 96 Nasal Cannula 2.0 28 08/24/17 07:19 81 18 96 Nasal Cannula 2.0 28 08/24/17 07:19 Nasal Cannula 2.0 28 08/24/17 04:00 99.8 88 20 128/80 100 Nasal Cannula 1.0 99.8 08/24/17 04:00 84 08/24/17 03:53 79 20 100 Nasal Cannula 2.0 28 08/24/17 03:41 91 22 100 Nasal Cannula 2.0 28 08/24/17 00:00 98.6 89 20 144/57 100 Nasal Cannula 1.0 98.6 08/24/17 00:00 84 08/23/17 23:32 87 21 100 Nasal Cannula 2.0 28 08/23/17 23:18 87 22 100 Nasal Cannula 2.0 28 08/23/17 20:00 85 08/23/17 20:00 97.5 101 20 129/74 98 Nasal Cannula 1.0 97.5 08/23/17 19:32 Nasal Cannula 08/23/17 19:32 Nasal Cannula 08/23/17 19:31 99 Nasal Cannula 2.0 28 08/23/17 19:31 Nasal Cannula 2.0 28 08/23/17 16:00 84 08/23/17 16:00 98.2 96 22 139/57 99 Nasal Cannula 1.0 98.2 08/23/17 15:45 97 33 100 Nasal Cannula 2.0 28 08/23/17 15:35 97 22 100 Nasal Cannula 2.0 28 08/23/17 12:00 93 08/23/17 11:52 97.9 88 21 123/86 100 Nasal Cannula 2.0 97.9 08/23/17 11:30 74 20 100 Nasal Cannula 2.0 28 08/23/17 11:20 87 22 100 Nasal Cannula 2.0 28 Intake and Output 08/23/17 08/24/17 19:00 07:00 Intake Total 882.5 ml 477.5 ml Output Total 900 ml 800 ml Balance -17.5 ml -322.5 ml Free Water 160 ml IV Total 512.5 ml 477.5 ml Tube Feeding 210 ml Output Urine Total 900 ml 800 ml # Bowel Movements 1 Laboratory Tests 08/24/17 05:00: Random Vancomycin Level 13.6 Height (Feet): 5 Height (Inches): 5.00 Weight (Pounds): 199 General Appearance: no apparent distress, lethargic Respiratory/Chest: decreased breath sounds Abdomen: soft GEORGE MONDRAGON Aug 24, 2017 09:26
[2017-08-24] MEDS ORDERED: Tubing IV Secondary IV ONE (09:48)
[2017-08-24] MEDS ORDERED: Sterile Water Irrig 1000ml IRRIG ONE ×2 (09:48→15:48)
[2017-08-24] MEDS ORDERED: NS 275ml ONE (09:48)
[2017-08-24] MEDS ORDERED: Tubing IV Blood Pump IV ONE (09:48)
[2017-08-24] MEDS ORDERED: 1/2 NS 1000ml IV ONE (09:48)
[2017-08-24 09:50] LABS: BASOPHILS % (AUTO) 0.5 % (0.0-2.0); EOSINOPHILS % (AUTO) 3.1 % (0.0-3.0); HEMATOCRIT 30.4 % (37.0-47.0); HEMOGLOBIN 10.2 G/DL (12.0-16.0); LYMPHOCYTES % (AUTO) 20.1 % (20.0-45.0); MEAN CORPUSCULAR VOLUME 96 FL (80-99); MONOCYTES % (AUTO) 7.6 % (1.0-10.0); NEUTROPHILS % (AUTO) 68.7 % (45.0-75.0); PLATELET COUNT 187 K/UL (150-450); RED BLOOD COUNT 3.17 M/UL (4.20-5.40)
[2017-08-24 09:57] LABS: ANION GAP 16 mmol/L (5-15); BLOOD UREA NITROGEN 48 mg/dL (7-18); CALCIUM 8.6 MG/DL (8.5-10.1); CARBON DIOXIDE 20 MMOL/L (21-32); CHLORIDE 115 MMOL/L (98-107); CREATININE 1.6 MG/DL (0.55-1.30); POTASSIUM 3.9 MMOL/L (3.5-5.1); SODIUM 151 MMOL/L (136-145)
[2017-08-24 10:02] LABS: ALANINE AMINOTRANSFERASE 12 U/L (12-78); ALBUMIN 2.7 G/DL (3.4-5.0); ALBUMIN/GLOBULIN RATIO 0.5 (1.0-2.7); ALKALINE PHOSPHATASE 99 U/L (46-116); ASPARTATE AMINO TRANSFERASE 23 U/L (15-37); BILIRUBIN,TOTAL 0.7 MG/DL (0.2-1.0)
[2017-08-24 10:15] LABS: PHOSPHORUS 3.2 MG/DL (2.5-4.9)
--- NOTE | 2017-08-24 10:30 | Diagnostic Imaging Report ---
Indication: Shortness of breath Technique: XRAY Chest 1v Comparison: 08/22/2017 Findings: Cardiomediastinal silhouette is stable. Atherosclerotic changes are present. There is left mid and basilar atelectasis. No pleural effusions are seen. Osseous structures are stable. Impression: Left mid and basilar atelectasis.
--- NOTE | 2017-08-24 11:41 | General Surgery Progress Note ---
General Surgery-Progress Note Subjective Additional Comments no acute events. low grade fever Objective Last 24 Hour Vital Signs Date Time Temp Pulse Resp B/P (MAP) Pulse Ox O2 Delivery O2 Flow Rate FiO2 08/24/17 11:11 83 18 100 Nasal Cannula 2.0 28 08/24/17 11:00 81 20 97 Nasal Cannula 2.0 28 08/24/17 08:00 85 08/24/17 08:00 97.7 80 20 130/88 98 Nasal Cannula 1.0 97.7 08/24/17 07:30 83 20 100 Nasal Cannula 2.0 28 08/24/17 07:19 96 Nasal Cannula 2.0 28 08/24/17 07:19 81 18 96 Nasal Cannula 2.0 28 08/24/17 07:19 Nasal Cannula 2.0 28 08/24/17 04:00 99.8 88 20 128/80 100 Nasal Cannula 1.0 99.8 08/24/17 04:00 84 08/24/17 03:53 79 20 100 Nasal Cannula 2.0 28 08/24/17 03:41 91 22 100 Nasal Cannula 2.0 28 08/24/17 00:00 98.6 89 20 144/57 100 Nasal Cannula 1.0 98.6 08/24/17 00:00 84 08/23/17 23:32 87 21 100 Nasal Cannula 2.0 28 08/23/17 23:18 87 22 100 Nasal Cannula 2.0 28 08/23/17 20:00 85 08/23/17 20:00 97.5 101 20 129/74 98 Nasal Cannula 1.0 97.5 08/23/17 19:32 Nasal Cannula 08/23/17 19:32 Nasal Cannula 08/23/17 19:31 99 Nasal Cannula 2.0 28 08/23/17 19:31 Nasal Cannula 2.0 28 08/23/17 16:00 84 08/23/17 16:00 98.2 96 22 139/57 99 Nasal Cannula 1.0 98.2 08/23/17 15:45 97 33 100 Nasal Cannula 2.0 28 08/23/17 15:35 97 22 100 Nasal Cannula 2.0 28 08/23/17 12:00 93 08/23/17 11:52 97.9 88 21 123/86 100 Nasal Cannula 2.0 97.9 I&O Intake and Output 08/23/17 08/24/17 19:00 07:00 Intake Total 882.5 ml 477.5 ml Output Total 900 ml 800 ml Balance -17.5 ml -322.5 ml Free Water 160 ml IV Total 512.5 ml 477.5 ml Tube Feeding 210 ml Output Urine Total 900 ml 800 ml # Bowel Movements 1 Dressing: saturated Wound: other - see photos Drains: none Cardiovascular: RSR Respiratory: clear Abdomen: soft, flat, non-tender Extremities: other - see photos Laboratory Tests Test 08/24/17 04:45 08/24/17 05:00 White Blood Count 9.0 K/UL (4.8-10.8) Red Blood Count 3.17 M/UL (4.20-5.40) L Hemoglobin 10.2 G/DL (12.0-16.0) #L Hematocrit 30.4 % (37.0-47.0) #L Mean Corpuscular Volume 96 FL (80-99) Mean Corpuscular Hemoglobin 32.2 PG (27.0-31.0) H Mean Corpuscular Hemoglobin Concent 33.5 G/DL (32.0-36.0) Red Cell Distribution Width 15.0 % (11.6-14.8) H Platelet Count 187 K/UL (150-450) Mean Platelet Volume 8.0 FL (6.5-10.1) Neutrophils (%) (Auto) 68.7 % (45.0-75.0) Lymphocytes (%) (Auto) 20.1 % (20.0-45.0) Monocytes (%) (Auto) 7.6 % (1.0-10.0) Eosinophils (%) (Auto) 3.1 % (0.0-3.0) H Basophils (%) (Auto) 0.5 % (0.0-2.0) Sodium Level 151 MMOL/L (136-145) H Potassium Level 3.9 MMOL/L (3.5-5.1) Chloride Level 115 MMOL/L (98-107) H Carbon Dioxide Level 20 MMOL/L (21-32) L Anion Gap 16 mmol/L (5-15) H Blood Urea Nitrogen 48 mg/dL (7-18) H Creatinine 1.6 MG/DL (0.55-1.30) H Estimat Glomerular Filtration Rate mL/min (>60) Glucose Level 199 MG/DL (74-106) H Calcium Level 8.6 MG/DL (8.5-10.1) Phosphorus Level 3.2 MG/DL (2.5-4.9) Magnesium Level 2.2 MG/DL (1.8-2.4) Total Bilirubin 0.7 MG/DL (0.2-1.0) Aspartate Amino Transf (AST/SGOT) 23 U/L (15-37) Alanine Aminotransferase (ALT/SGPT) 12 U/L (12-78) Alkaline Phosphatase 99 U/L (46-116) C-Reactive Protein, Quantitative 11.4 mg/dL (0.00-0.90) H Pro-B-Type Natriuretic Peptide 2463 pg/mL (0-125) H Total Protein 8.3 G/DL (6.4-8.2) H Albumin 2.7 G/DL (3.4-5.0) L Globulin 5.6 g/dL Albumin/Globulin Ratio 0.5 (1.0-2.7) L Random Vancomycin Level 13.6 ug/mL Plan Problems: (1) Osteomyelitis of ankle or foot, left, acute Assessment & Plan: continues to have worsening osteo and infection of left foot. ulcerations worse despite good wound care. still recommend amputation. will reach out to family/poa/next of kin again for consent. will explain in detail again current condition and care plan. attempted to call today without answer. will try again soon thank you for this consultation. will follow with recs cont wound care cont abx. Taco Carter Aug 24, 2017 11:41
[2017-08-24 12:00] VITALS: BP 108/58
[2017-08-24 16:00] VITALS: BP 148/52
[2017-08-24 20:00] VITALS: BP 101/73
--- NOTE | 2017-08-24 21:52 | Infectious Diseases Prog Note ---
Assessment/Plan Problems: (1) Osteomyelitis of ankle or foot, left, acute Assessment & Plan: with worsening skin necrosis, and osteomyelitis due to poor circulation in the left leg, will continue wide spectrum antibiotics coverage with vancomycin and Zosyn , pending family decision regarding amputation, surgery is following (2) Heel ulcer Assessment & Plan: not improving with worsening osteomyelitis , she will need amputation for source control , continue wide spectrum antibiotics (3) Sepsis Assessment & Plan: due to the above , continue wide spectrum antibiotics pending culture and possible amputations (4) Fever Assessment & Plan: due to the above , improving with wide spectrum antibiotics (5) Diabetes Assessment & Plan: recommend tight glycemic control to keep blood glucose between 100-140 Subjective ROS Limited/Unobtainable: Yes Allergies: Coded Allergies: No Known Allergies (Verified , 01/27/10) Subjective she was lying in bed, unresponsive, had low grade fever, foul smell from the heel wound Objective Vital Signs Last 24 Hour Vital Signs Date Time Temp Pulse Resp B/P (MAP) Pulse Ox O2 Delivery O2 Flow Rate FiO2 08/24/17 20:00 99.9 85 20 101/73 100 Nasal Cannula 1.0 99.9 08/24/17 20:00 80 08/24/17 19:15 85 20 96 Nasal Cannula 2.0 28 08/24/17 19:15 87 20 98 Nasal Cannula 2.0 28 08/24/17 19:15 Nasal Cannula 2.0 28 08/24/17 19:14 96 Nasal Cannula 2.0 28 08/24/17 16:00 97.5 76 20 148/52 98 Nasal Cannula 1.0 97.5 08/24/17 16:00 79 08/24/17 15:00 79 20 100 Nasal Cannula 2.0 28 08/24/17 14:49 77 22 100 Nasal Cannula 2.0 28 08/24/17 12:00 85 08/24/17 12:00 98.2 95 20 108/58 100 Nasal Cannula 1.0 98.2 08/24/17 11:11 83 18 100 Nasal Cannula 2.0 28 08/24/17 11:00 81 20 97 Nasal Cannula 2.0 28 08/24/17 08:00 85 08/24/17 08:00 97.7 80 20 130/88 98 Nasal Cannula 1.0 97.7 08/24/17 07:30 83 20 100 Nasal Cannula 2.0 28 08/24/17 07:19 96 Nasal Cannula 2.0 28 08/24/17 07:19 81 18 96 Nasal Cannula 2.0 28 08/24/17 07:19 Nasal Cannula 2.0 28 08/24/17 04:00 99.8 88 20 128/80 100 Nasal Cannula 1.0 99.8 08/24/17 04:00 84 08/24/17 03:53 79 20 100 Nasal Cannula 2.0 28 08/24/17 03:41 91 22 100 Nasal Cannula 2.0 28 08/24/17 00:00 98.6 89 20 144/57 100 Nasal Cannula 1.0 98.6 08/24/17 00:00 84 08/23/17 23:32 87 21 100 Nasal Cannula 2.0 28 08/23/17 23:18 87 22 100 Nasal Cannula 2.0 28 Height (Feet): 5 Height (Inches): 5.00 Weight (Pounds): 199 General Appearance: WD/WN, no acute distress HEENT: normocephalic, atraumatic, anicteric, mucous membranes moist Respiratory/Chest: chest wall non-tender, lungs clear, normal breath sounds, no respiratory distress, no accessory muscle use Cardiovascular: normal peripheral pulses, normal rate, regular rhythm, no gallop/murmur, no JVD Abdomen: normal bowel sounds, soft, non tender, no organomegaly, non distended , no mass, no scars Genitourinary: normal external genitalia Extremities: other - left heel pressur wound and lateral foot pressure wound with granulation Skin: no rash, no lesions, ulcers Microbiology Date/Time Source Procedure Growth Status 08/22/17 18:20 Blood Blood Culture - Preliminary NO GROWTH AFTER 24 HOURS Resulted 08/22/17 18:10 Blood Blood Culture - Preliminary NO GROWTH AFTER 24 HOURS Resulted 08/22/17 18:15 Urine,Clean Catch Urine Culture - Final NO GROWTH AFTER 48 HOURS Complete 08/23/17 02:30 Foot Left Gram Stain - Final Resulted 08/23/17 02:30 Wound Culture - Preliminary Gram Negative Bacillus 1 Resulted Laboratory Tests Test 08/24/17 04:45 08/24/17 05:00 White Blood Count 9.0 K/UL (4.8-10.8) Red Blood Count 3.17 M/UL (4.20-5.40) L Hemoglobin 10.2 G/DL (12.0-16.0) #L Hematocrit 30.4 % (37.0-47.0) #L Mean Corpuscular Volume 96 FL (80-99) Mean Corpuscular Hemoglobin 32.2 PG (27.0-31.0) H Mean Corpuscular Hemoglobin Concent 33.5 G/DL (32.0-36.0) Red Cell Distribution Width 15.0 % (11.6-14.8) H Platelet Count 187 K/UL (150-450) Mean Platelet Volume 8.0 FL (6.5-10.1) Neutrophils (%) (Auto) 68.7 % (45.0-75.0) Lymphocytes (%) (Auto) 20.1 % (20.0-45.0) Monocytes (%) (Auto) 7.6 % (1.0-10.0) Eosinophils (%) (Auto) 3.1 % (0.0-3.0) H Basophils (%) (Auto) 0.5 % (0.0-2.0) Sodium Level 151 MMOL/L (136-145) H Potassium Level 3.9 MMOL/L (3.5-5.1) Chloride Level 115 MMOL/L (98-107) H Carbon Dioxide Level 20 MMOL/L (21-32) L Anion Gap 16 mmol/L (5-15) H Blood Urea Nitrogen 48 mg/dL (7-18) H Creatinine 1.6 MG/DL (0.55-1.30) H Estimat Glomerular Filtration Rate mL/min (>60) Glucose Level 199 MG/DL (74-106) H Calcium Level 8.6 MG/DL (8.5-10.1) Phosphorus Level 3.2 MG/DL (2.5-4.9) Magnesium Level 2.2 MG/DL (1.8-2.4) Total Bilirubin 0.7 MG/DL (0.2-1.0) Aspartate Amino Transf (AST/SGOT) 23 U/L (15-37) Alanine Aminotransferase (ALT/SGPT) 12 U/L (12-78) Alkaline Phosphatase 99 U/L (46-116) C-Reactive Protein, Quantitative 11.4 mg/dL (0.00-0.90) H Pro-B-Type Natriuretic Peptide 2463 pg/mL (0-125) H Total Protein 8.3 G/DL (6.4-8.2) H Albumin 2.7 G/DL (3.4-5.0) L Globulin 5.6 g/dL Albumin/Globulin Ratio 0.5 (1.0-2.7) L Random Vancomycin Level 13.6 ug/mL Current Medications Medications (Trade) Dose Ordered Sig/Nancy Route PRN Reason Start Time Stop Time Status Last Admin Dose Admin Acetaminophen (Tylenol) 650 mg Q4H PRN GT temp 100 mild pain 08/22/17 22:30 09/21/17 22:29 Albuterol Sulfate (Proventil) 2.5 mg Q4HRT HHN 08/22/17 23:00 08/27/17 22:59 08/24/17 19:14 Clonidine HCl (Catapres Tab) 0.1 mg EVERY 6 HOURS PRN GT For High BP 160 syst 08/22/17 22:30 09/21/17 22:29 Dextrose 1,000 ml @ 75 mls/hr [id number] IV 08/23/17 09:30 09/22/17 09:29 08/24/17 11:54 Dextrose (Dextrose 50%) 25 ml STAT PRN IV Hypoglycemia 08/23/17 09:15 09/22/17 09:14 Dextrose (Dextrose 50%) 50 ml STAT PRN IV Hypoglycemia 08/23/17 09:15 09/22/17 09:14 Docusate Sodium (Colace) 100 mg TID GT 08/23/17 09:00 09/22/17 08:59 08/24/17 17:58 Enoxaparin Sodium (Lovenox) 80 mg DAILY SUBQ 08/23/17 09:30 09/22/17 09:29 08/24/17 08:16 Famotidine (Pepcid) 20 mg BID GT 08/23/17 09:00 09/22/17 08:59 08/24/17 17:58 Insulin Aspart (NovoLOG) EVERY 6 HOURS SUBQ 08/23/17 18:00 09/22/17 11:29 08/24/17 17:59 Levetiracetam (Keppra) 500 mg BID GT 08/23/17 09:00 09/22/17 08:59 08/24/17 17:58 Metoclopramide HCl (Reglan) 5 mg Q6HR GT 08/23/17 00:00 09/22/17 00:00 08/24/17 17:58 Ondansetron HCl (Zofran) 4 mg Q6H PRN IVP Nausea & Vomiting 08/22/17 22:45 09/21/17 22:44 Piperacillin Sod/ Tazobactam Sod 3.375 gm/Sodium Chloride 110 ml @ 27.5 mls/hr EVERY 8 HOURS IVPB 08/22/17 23:30 08/27/17 23:29 08/24/17 21:32 Polyethylene Glycol (Miralax) 17 gm DAILY PRN GT Constipation 08/22/17 22:30 09/21/17 22:29 Tramadol HCl (Ultram) 25 mg Q6HR PRN GT sever pain 08/22/17 22:30 08/29/17 22:29 Vancomycin HCl (Vanco rx to dose) 1 ea DAILY PRN MISC Per rx protocol 08/22/17 22:45 09/21/17 22:44 Ayala Forman M.D. Aug 24, 2017 21:52
[2017-08-25] VITALS: BP 127/60
[2017-08-25] MEDS: Albuterol ud Inhalation HHN SCH ×7 (00:04→22:45)
[2017-08-25] MEDS: Metoclopramide 10mg/10ml Liq GT SCH ×4 (00:21→17:41)
[2017-08-25] MEDS: NovoLOG Insulin Flexpen SUBQ SCH ×4 (00:21→17:38)
[2017-08-25 04:00] VITALS: BP 129/52
[2017-08-25] MEDS: Zoysn 3.37gm in NS 100ML IVPB SCH ×3 (05:37→22:10)
[2017-08-25 08:00] VITALS: BP 134/49
[2017-08-25] MEDS: Docusate 100mg/10ml Liq GT SCH ×3 (09:00→17:22)
--- NOTE | 2017-08-25 09:04 | General Progress Note ---
Assessment/Plan Problem List: (1) UTI (urinary tract infection) (2) Sepsis ICD Codes: A41.9 - Sepsis, unspecified organism SNOMED: 44136236 (3) DVT (deep vein thrombosis) in ICD Codes: O22.30 - Deep phlebothrombosis in , unspecified trimester; I82.409 - Acute embolism and thrombosis of unspecified deep veins of unspecified lower extremity SNOMED: 49742285 (4) Diabetes ICD Codes: E11.9 - Type 2 diabetes mellitus without complications SNOMED: 53470759 (5) Anemia ICD Codes: D64.9 - Anemia, unspecified SNOMED: 164879516 Qualifiers: Qualified Codes: D64.9 - Anemia, unspecified (6) Hypernatremia ICD Codes: E87.0 - Hyperosmolality and hypernatremia SNOMED: 03935266 (7) Osteomyelitis of ankle or foot, left, acute ICD Codes: M86.172 - Other acute osteomyelitis, left ankle and foot SNOMED: 027787593 Status: unchanged Assessment/Plan no labs today [employer] consult Hold Lovenox for nose bleed Per ID and Surg D5 GT feeding per order transfuse as needed check labs in am Subjective ROS Limited/Unobtainable: No Constitutional: Reports: malaise Allergies: Coded Allergies: No Known Allergies (Verified , 01/27/10) Objective Last 24 Hour Vital Signs Date Time Temp Pulse Resp B/P (MAP) Pulse Ox O2 Delivery O2 Flow Rate FiO2 08/25/17 08:00 99.0 69 20 134/49 95 Room Air 99.0 08/25/17 07:12 73 20 99 Room Air 08/25/17 07:08 Room Air 21 08/25/17 07:08 98 Room Air 21 08/25/17 07:05 71 20 98 Room Air 21 08/25/17 04:00 70 08/25/17 04:00 98.1 85 20 129/52 100 Nasal Cannula 1.0 98.1 08/25/17 03:07 83 20 96 Nasal Cannula 2.0 28 08/25/17 03:07 84 20 97 Nasal Cannula 2.0 28 08/25/17 00:00 76 08/25/17 00:00 80 20 95 Nasal Cannula 2.0 28 08/25/17 00:00 85 20 98 Nasal Cannula 2.0 28 08/25/17 00:00 98.4 75 20 127/60 100 Nasal Cannula 1.0 98.4 08/24/17 20:00 99.9 85 20 101/73 100 Nasal Cannula 1.0 99.9 08/24/17 20:00 80 08/24/17 19:15 85 20 96 Nasal Cannula 2.0 28 08/24/17 19:15 87 20 98 Nasal Cannula 2.0 28 08/24/17 19:15 Nasal Cannula 2.0 28 08/24/17 19:14 96 Nasal Cannula 2.0 28 08/24/17 16:00 97.5 76 20 148/52 98 Nasal Cannula 1.0 97.5 08/24/17 16:00 79 08/24/17 15:00 79 20 100 Nasal Cannula 2.0 28 08/24/17 14:49 77 22 100 Nasal Cannula 2.0 28 08/24/17 12:00 85 08/24/17 12:00 98.2 95 20 108/58 100 Nasal Cannula 1.0 98.2 08/24/17 11:11 83 18 100 Nasal Cannula 2.0 28 08/24/17 11:00 81 20 97 Nasal Cannula 2.0 28 Intake and Output 08/24/17 08/25/17 19:00 07:00 Intake Total 1703 ml Output Total 900 ml Balance -900 ml 1703 ml Free Water 300 ml IV Total 1043 ml Tube Feeding 360 ml Output Urine Total 900 ml # Bowel Movements 2 Height (Feet): 5 Height (Inches): 5.00 Weight (Pounds): 203 General Appearance: no apparent distress, lethargic, other - non verbal Neck: limited range of motion Respiratory/Chest: decreased breath sounds Abdomen: soft GEORGE MONDRAGON Aug 25, 2017 09:04
--- NOTE | 2017-08-25 10:46 | General Surgery Progress Note ---
General Surgery-Progress Note Subjective Additional Comments doing okay. no acute events. labs improved Objective Last 24 Hour Vital Signs Date Time Temp Pulse Resp B/P (MAP) Pulse Ox O2 Delivery O2 Flow Rate FiO2 08/25/17 08:00 99.0 69 20 134/49 95 Room Air 99.0 08/25/17 07:12 73 20 99 Room Air 21 08/25/17 07:08 Room Air 21 08/25/17 07:08 98 Room Air 21 08/25/17 07:05 71 20 98 Room Air 21 08/25/17 04:00 70 08/25/17 04:00 98.1 85 20 129/52 100 Nasal Cannula 1.0 98.1 08/25/17 03:07 83 20 96 Nasal Cannula 2.0 28 08/25/17 03:07 84 20 97 Nasal Cannula 2.0 28 08/25/17 00:00 76 08/25/17 00:00 80 20 95 Nasal Cannula 2.0 28 08/25/17 00:00 85 20 98 Nasal Cannula 2.0 28 08/25/17 00:00 98.4 75 20 127/60 100 Nasal Cannula 1.0 98.4 08/24/17 20:00 99.9 85 20 101/73 100 Nasal Cannula 1.0 99.9 08/24/17 20:00 80 08/24/17 19:15 85 20 96 Nasal Cannula 2.0 28 08/24/17 19:15 87 20 98 Nasal Cannula 2.0 28 08/24/17 19:15 Nasal Cannula 2.0 28 08/24/17 19:14 96 Nasal Cannula 2.0 28 08/24/17 16:00 97.5 76 20 148/52 98 Nasal Cannula 1.0 97.5 08/24/17 16:00 79 08/24/17 15:00 79 20 100 Nasal Cannula 2.0 28 08/24/17 14:49 77 22 100 Nasal Cannula 2.0 28 08/24/17 12:00 85 08/24/17 12:00 98.2 95 20 108/58 100 Nasal Cannula 1.0 98.2 08/24/17 11:11 83 18 100 Nasal Cannula 2.0 28 08/24/17 11:00 81 20 97 Nasal Cannula 2.0 28 I&O Intake and Output 08/24/17 08/25/17 19:00 07:00 Intake Total 1703 ml Output Total 900 ml Balance -900 ml 1703 ml Free Water 300 ml IV Total 1043 ml Tube Feeding 360 ml Output Urine Total 900 ml # Bowel Movements 2 Dressing: saturated Cardiovascular: RSR Respiratory: clear Abdomen: soft, flat, non-tender, present bowel sounds Extremities: other - see wound care photos Laboratory Tests Test 08/25/17 09:50 C-Reactive Protein, Quantitative 9.9 mg/dL (0.00-0.90) H Random Vancomycin Level 17.9 ug/mL Plan Problems: (1) Osteomyelitis of ankle or foot, left, acute Assessment & Plan: continues to have worsening osteo and infection of left foot. ulcerations worse despite good wound care. still recommend amputation. will reach out to family/poa/next of kin again for consent. will explain in detail again current condition and care plan. thank you for this consultation. will follow with recs cont wound care cont abx. Taco Carter Aug 25, 2017 10:46
[2017-08-25 12:00] VITALS: BP 139/84
[2017-08-25] MEDS: Vancomycin 1gm/D5W 275ml IVPB SCH ×2 (13:19)
--- NOTE | 2017-08-25 13:23 | Infectious Diseases Prog Note ---
Assessment/Plan Problems: (1) Osteomyelitis of ankle or foot, left, acute Assessment & Plan: due to pseudomonas and other gram negative rods , with worsening skin necrosis, and gangrenous changes , will continue vancomycin and Zosyn empiric coverage for now , I highly recommend amputation at this stage for source control , but no response from the conservative yet, await family decision , surgery is following . (2) Heel ulcer Assessment & Plan: not improving with worsening osteomyelitis , she will need amputation for source control , continue wide spectrum antibiotics (3) Sepsis Assessment & Plan: due to the above , continue wide spectrum antibiotics pending finale culture and possible amputations . (4) Fever Assessment & Plan: due to the above , persistent with wide spectrum antibiotics , suspect due to infected left foot with osteomyelitis. (5) Diabetes Assessment & Plan: recommend tight glycemic control to keep blood glucose between 100-140 Subjective ROS Limited/Unobtainable: Yes Allergies: Coded Allergies: No Known Allergies (Verified , 01/27/10) Subjective she was lying in bed, unresponsive, had low grade fever, not much draining from the left heel wound, but still foul smell coming from the heel wound Objective Vital Signs Last 24 Hour Vital Signs Date Time Temp Pulse Resp B/P (MAP) Pulse Ox O2 Delivery O2 Flow Rate FiO2 08/25/17 12:05 82 20 97 Room Air 21 08/25/17 12:00 98.4 74 20 139/84 95 Room Air 98.4 08/25/17 08:00 99.0 69 20 134/49 95 Room Air 99.0 08/25/17 08:00 77 08/25/17 07:12 73 20 99 Room Air 21 08/25/17 07:08 Room Air 21 08/25/17 07:08 98 Room Air 21 08/25/17 07:05 71 20 98 Room Air 21 08/25/17 04:00 70 08/25/17 04:00 98.1 85 20 129/52 100 Nasal Cannula 1.0 98.1 08/25/17 03:07 83 20 96 Nasal Cannula 2.0 28 08/25/17 03:07 84 20 97 Nasal Cannula 2.0 28 08/25/17 00:00 76 08/25/17 00:00 80 20 95 Nasal Cannula 2.0 28 08/25/17 00:00 85 20 98 Nasal Cannula 2.0 28 08/25/17 00:00 98.4 75 20 127/60 100 Nasal Cannula 1.0 98.4 08/24/17 20:00 99.9 85 20 101/73 100 Nasal Cannula 1.0 99.9 08/24/17 20:00 80 08/24/17 19:15 85 20 96 Nasal Cannula 2.0 28 08/24/17 19:15 87 20 98 Nasal Cannula 2.0 28 08/24/17 19:15 Nasal Cannula 2.0 28 08/24/17 19:14 96 Nasal Cannula 2.0 28 08/24/17 16:00 97.5 76 20 148/52 98 Nasal Cannula 1.0 97.5 08/24/17 16:00 79 08/24/17 15:00 79 20 100 Nasal Cannula 2.0 28 08/24/17 14:49 77 22 100 Nasal Cannula 2.0 28 Height (Feet): 5 Height (Inches): 5.00 Weight (Pounds): 203 General Appearance: WD/WN, no acute distress HEENT: normocephalic, atraumatic, anicteric, mucous membranes moist, PERRL Respiratory/Chest: chest wall non-tender, lungs clear, normal breath sounds, no respiratory distress, no accessory muscle use Cardiovascular: normal peripheral pulses, normal rate, regular rhythm, no gallop/murmur, no JVD Abdomen: normal bowel sounds, soft, non tender, no organomegaly, non distended , no mass, no scars Extremities: no cyanosis, no clubbing Skin: no rash, no lesions, no ulcers Neurologic/Psychiatric: unresponsiveness Lymphatic: no neck adenopathy, no groin adenopathy Musculoskeletal: normal muscle bulk, no effusion Microbiology Date/Time Source Procedure Growth Status 08/22/17 18:20 Blood Blood Culture - Preliminary NO GROWTH AFTER 48 HOURS Resulted 08/22/17 18:10 Blood Blood Culture - Preliminary NO GROWTH AFTER 48 HOURS Resulted 08/22/17 18:15 Urine,Clean Catch Urine Culture - Final NO GROWTH AFTER 48 HOURS Complete 08/23/17 02:30 Foot Left Gram Stain - Final Resulted 08/23/17 02:30 Wound Culture - Preliminary Pseudomonas Aeruginosa Gram Negative Bacillus 2 Resulted Laboratory Tests Test 08/25/17 09:50 C-Reactive Protein, Quantitative 9.9 mg/dL (0.00-0.90) H Random Vancomycin Level 17.9 ug/mL Current Medications Medications (Trade) Dose Ordered Sig/Nancy Route PRN Reason Start Time Stop Time Status Last Admin Dose Admin Acetaminophen (Tylenol) 650 mg Q4H PRN GT temp 100 mild pain 08/22/17 22:30 09/21/17 22:29 Albuterol Sulfate (Proventil) 2.5 mg Q4HRT HHN 08/22/17 23:00 08/27/17 22:59 08/25/17 12:05 Clonidine HCl (Catapres Tab) 0.1 mg EVERY 6 HOURS PRN GT For High BP 160 syst 08/22/17 22:30 09/21/17 22:29 Dextrose 1,000 ml @ 75 mls/hr [id number] IV 08/23/17 09:30 09/22/17 09:29 08/25/17 01:00 Dextrose (Dextrose 50%) 25 ml STAT PRN IV Hypoglycemia 08/23/17 09:15 09/22/17 09:14 Dextrose (Dextrose 50%) 50 ml STAT PRN IV Hypoglycemia 08/23/17 09:15 09/22/17 09:14 Docusate Sodium (Colace) 100 mg TID GT 08/23/17 09:00 09/22/17 08:59 08/24/17 17:58 Famotidine (Pepcid) 20 mg BID GT 08/23/17 09:00 09/22/17 08:59 08/25/17 09:14 Insulin Aspart (NovoLOG) EVERY 6 HOURS SUBQ 08/23/17 18:00 09/22/17 11:29 08/25/17 12:03 Levetiracetam (Keppra) 500 mg BID GT 08/23/17 09:00 09/22/17 08:59 08/25/17 09:14 Metoclopramide HCl (Reglan) 5 mg Q6HR GT 08/23/17 00:00 09/22/17 00:00 08/25/17 12:56 Ondansetron HCl (Zofran) 4 mg Q6H PRN IVP Nausea & Vomiting 08/22/17 22:45 09/21/17 22:44 Piperacillin Sod/ Tazobactam Sod 3.375 gm/Sodium Chloride 110 ml @ 27.5 mls/hr EVERY 8 HOURS IVPB 08/22/17 23:30 08/27/17 23:29 08/25/17 05:37 Polyethylene Glycol (Miralax) 17 gm DAILY PRN GT Constipation 08/22/17 22:30 09/21/17 22:29 Tramadol HCl (Ultram) 25 mg Q6HR PRN GT sever pain 08/22/17 22:30 08/29/17 22:29 Vancomycin HCl (Vanco rx to dose) 1 ea DAILY PRN MISC Per rx protocol 08/22/17 22:45 09/21/17 22:44 Vancomycin HCl 1 gm/Dextrose 275 ml @ 183.708 mls/hr Q24H IVPB 08/25/17 13:00 08/30/17 12:59 Ayala Forman M.D. Aug 25, 2017 13:23
[2017-08-25 16:00] VITALS: BP 153/76
[2017-08-25 20:00] VITALS: BP 138/87
[2017-08-26] VITALS: BP 154/65
[2017-08-26] MEDS: Metoclopramide 10mg/10ml Liq GT SCH ×4 (00:02→17:13)
[2017-08-26] MEDS: NovoLOG Insulin Flexpen SUBQ SCH ×4 (00:03→18:11)
[2017-08-26] MEDS: Albuterol ud Inhalation HHN SCH ×6 (02:53→23:48)
[2017-08-26 04:00] VITALS: BP 144/66
[2017-08-26] MEDS: Zoysn 3.37gm in NS 100ML IVPB SCH ×3 (05:35→21:37)
[2017-08-26 07:27] LABS: BASOPHILS % (AUTO) 0.7 % (0.0-2.0); EOSINOPHILS % (AUTO) 2.5 % (0.0-3.0); HEMATOCRIT 30.8 % (37.0-47.0); HEMOGLOBIN 10.7 G/DL (12.0-16.0); LYMPHOCYTES % (AUTO) 25.6 % (20.0-45.0); MEAN CORPUSCULAR VOLUME 94 FL (80-99); MONOCYTES % (AUTO) 7.3 % (1.0-10.0); NEUTROPHILS % (AUTO) 63.9 % (45.0-75.0); PLATELET COUNT 196 K/UL (150-450); RED BLOOD COUNT 3.28 M/UL (4.20-5.40); RED CELL DISTRIBUTION WIDTH 13.9 % (11.6-14.8); WHITE BLOOD COUNT 7.8 K/UL (4.8-10.8)
[2017-08-26] MEDS: Docusate 100mg/10ml Liq GT SCH ×2 (07:54→11:57)
[2017-08-26 08:53] VITALS: BP 142/59
[2017-08-26 09:46] LABS: ALANINE AMINOTRANSFERASE 11 U/L (12-78); ALBUMIN 2.5 G/DL (3.4-5.0); ALBUMIN/GLOBULIN RATIO 0.4 (1.0-2.7); ALKALINE PHOSPHATASE 100 U/L (46-116); ANION GAP 12 mmol/L (5-15); ASPARTATE AMINO TRANSFERASE 17 U/L (15-37); BILIRUBIN,TOTAL 0.4 MG/DL (0.2-1.0); BLOOD UREA NITROGEN 28 mg/dL (7-18); CARBON DIOXIDE 22 MMOL/L (21-32); CHLORIDE 103 MMOL/L (98-107); CREATININE 1.7 MG/DL (0.55-1.30); PHOSPHORUS 3.1 MG/DL (2.5-4.9); SODIUM 137 MMOL/L (136-145)
[2017-08-26 12:00] VITALS: BP 140/60
[2017-08-26] MEDS: Vancomycin 1gm/D5W 275ml IVPB SCH ×2 (12:16)
--- NOTE | 2017-08-26 12:44 | General Surgery Progress Note ---
General Surgery-Progress Note Subjective Additional Comments no acute events. Objective Last 24 Hour Vital Signs Date Time Temp Pulse Resp B/P (MAP) Pulse Ox O2 Delivery O2 Flow Rate FiO2 08/26/17 11:47 80 20 99 Room Air 21 08/26/17 11:39 82 20 98 Room Air 21 08/26/17 08:53 98.4 81 18 142/59 99 Room Air 98.4 08/26/17 08:34 86 20 99 Room Air 21 08/26/17 08:24 97 Room Air 21 08/26/17 08:24 Room Air 21 08/26/17 08:24 85 20 97 Room Air 21 08/26/17 07:41 78 08/26/17 04:00 98.4 81 18 144/66 99 Room Air 98.4 08/26/17 04:00 84 08/26/17 03:06 84 20 99 Room Air 21 08/26/17 02:53 79 20 97 Room Air 21 08/26/17 00:00 98.6 61 20 154/65 98 Room Air 98.6 08/26/17 00:00 75 08/25/17 23:02 85 20 100 Room Air 21 08/25/17 22:45 78 20 98 Room Air 21 08/25/17 20:00 77 08/25/17 20:00 98.8 84 20 138/87 100 Room Air 98.8 08/25/17 19:58 87 20 100 Room Air 21 08/25/17 19:50 85 20 98 Room Air 21 08/25/17 19:49 98 Room Air 21 08/25/17 19:49 Room Air 21 08/25/17 16:00 77 08/25/17 16:00 97.3 73 22 153/76 97 Room Air 97.3 08/25/17 15:19 78 20 99 Room Air 21 08/25/17 15:11 78 20 98 Room Air 21 I&O Intake and Output 08/25/17 08/26/17 19:00 07:00 Intake Total 1641 ml Output Total 1200 ml 525 ml Balance -1200 ml 1116 ml Free Water 300 ml IV Total 1011 ml Tube Feeding 330 ml Output Urine Total 1200 ml 525 ml # Bowel Movements 2 3 Wound: other - see photos Laboratory Tests Test 08/26/17 06:50 White Blood Count 7.8 K/UL (4.8-10.8) Red Blood Count 3.28 M/UL (4.20-5.40) L Hemoglobin 10.7 G/DL (12.0-16.0) L Hematocrit 30.8 % (37.0-47.0) L Mean Corpuscular Volume 94 FL (80-99) Mean Corpuscular Hemoglobin 32.8 PG (27.0-31.0) H Mean Corpuscular Hemoglobin Concent 34.9 G/DL (32.0-36.0) Red Cell Distribution Width 13.9 % (11.6-14.8) Platelet Count 196 K/UL (150-450) Mean Platelet Volume 8.9 FL (6.5-10.1) Neutrophils (%) (Auto) 63.9 % (45.0-75.0) Lymphocytes (%) (Auto) 25.6 % (20.0-45.0) Monocytes (%) (Auto) 7.3 % (1.0-10.0) Eosinophils (%) (Auto) 2.5 % (0.0-3.0) Basophils (%) (Auto) 0.7 % (0.0-2.0) Prothrombin Time 10.7 SEC (9.30-11.50) Prothromb Time International Ratio 1.0 (0.9-1.1) Activated Partial Thromboplast Time 28 SEC (23-33) Sodium Level 137 MMOL/L (136-145) Potassium Level 3.0 MMOL/L (3.5-5.1) L Chloride Level 103 MMOL/L (98-107) Carbon Dioxide Level 22 MMOL/L (21-32) Anion Gap 12 mmol/L (5-15) Blood Urea Nitrogen 28 mg/dL (7-18) H Creatinine 1.7 MG/DL (0.55-1.30) H Estimat Glomerular Filtration Rate mL/min (>60) Glucose Level 199 MG/DL (74-106) H Uric Acid 4.6 MG/DL (2.6-7.2) Calcium Level 9.0 MG/DL (8.5-10.1) Phosphorus Level 3.1 MG/DL (2.5-4.9) Magnesium Level 1.8 MG/DL (1.8-2.4) Total Bilirubin 0.4 MG/DL (0.2-1.0) Aspartate Amino Transf (AST/SGOT) 17 U/L (15-37) Alanine Aminotransferase (ALT/SGPT) 11 U/L (12-78) L Alkaline Phosphatase 100 U/L (46-116) Troponin I 0.001 ng/mL (0.000-0.056) Pro-B-Type Natriuretic Peptide 1533 pg/mL (0-125) H Total Protein 9.4 G/DL (6.4-8.2) H Albumin 2.5 G/DL (3.4-5.0) L Globulin 6.9 g/dL Albumin/Globulin Ratio 0.4 (1.0-2.7) L Plan Problems: (1) Osteomyelitis of ankle or foot, left, acute Assessment & Plan: continues to have worsening osteo and infection of left foot. ulcerations worse despite good wound care. still recommend amputation. will reach out to family/poa/next of kin again for consent. will explain in detail again current condition and care plan. Left message with Next of KIN/ POA today. awaiting return of call to discuss care and planning. thank you for this consultation. will follow with recs cont wound care cont abx. Taco Carter Aug 26, 2017 12:44
[2017-08-26] MEDS ORDERED: Potassium Chloride 40 MEQ in Sodium Chloride 500ML 550 ML IVPB ONE (13:00)
[2017-08-26] MEDS ORDERED: NS 275ml ONE (13:03)
[2017-08-26] MEDS ORDERED: Tubing IV Secondary IV ONE (13:03)
--- NOTE | 2017-08-26 14:11 | Infectious Diseases Prog Note ---
Assessment/Plan Problems: (1) Osteomyelitis of ankle or foot, left, acute Assessment & Plan: due to pseudomonas, other gram negative rods , and gram positive cooci with skin necrosis, and gangrenous changes , already on vancomycin and Zosyn empiric coverage , she will need amputation below the knee for source control , since she is at high risk of becoming septic and failing antibiotics therapy alone in the future if no amputation done , still no response from family or conservative regarding Thier decision for amputation , surgery team is following . D/W other consultants (2) Heel ulcer Assessment & Plan: not improving with worsening osteomyelitis , she will need amputation for source control , continue wide spectrum antibiotics (3) Sepsis Assessment & Plan: due to the above , continue wide spectrum antibiotics pending finale culture and possible amputations . (4) Fever Assessment & Plan: due to the above , improving with wide spectrum antibiotics , suspect due to infected left foot with osteomyelitis. (5) Diabetes Assessment & Plan: recommend tight glycemic control to keep blood glucose between 100-140 (6) Diarrhea Assessment & Plan: rule out C diff infection, will stop laxatives and send stool for C diff Subjective ROS Limited/Unobtainable: Yes Allergies: Coded Allergies: No Known Allergies (Verified , 01/27/10) Subjective she was the same lying in bed, unresponsive, no fever or chills , but diarrhea this AM, still draining from the left heel wound, with foul smell coming from the heel wound too and some gangrenous changes Objective Vital Signs Last 24 Hour Vital Signs Date Time Temp Pulse Resp B/P (MAP) Pulse Ox O2 Delivery O2 Flow Rate FiO2 08/26/17 11:47 80 20 99 Room Air 08/26/17 11:44 81 08/26/17 11:39 82 20 98 Room Air 21 08/26/17 08:53 98.4 81 18 142/59 99 Room Air 98.4 08/26/17 08:34 86 20 99 Room Air 21 08/26/17 08:24 97 Room Air 08/26/17 08:24 Room Air 21 08/26/17 08:24 85 20 97 Room Air 08/26/17 07:41 78 08/26/17 04:00 98.4 81 18 144/66 99 Room Air 98.4 08/26/17 04:00 84 08/26/17 03:06 84 20 99 Room Air 21 08/26/17 02:53 79 20 97 Room Air 21 08/26/17 00:00 98.6 61 20 154/65 98 Room Air 98.6 08/26/17 00:00 75 08/25/17 23:02 85 20 100 Room Air 21 08/25/17 22:45 78 20 98 Room Air 21 08/25/17 20:00 77 08/25/17 20:00 98.8 84 20 138/87 100 Room Air 98.8 08/25/17 19:58 87 20 100 Room Air 21 08/25/17 19:50 85 20 98 Room Air 21 08/25/17 19:49 98 Room Air 21 08/25/17 19:49 Room Air 21 08/25/17 16:00 77 08/25/17 16:00 97.3 73 22 153/76 97 Room Air 97.3 08/25/17 15:19 78 20 99 Room Air 21 08/25/17 15:11 78 20 98 Room Air 21 Height (Feet): 5 Height (Inches): 5.00 Weight (Pounds): 200 General Appearance: WD/WN, no acute distress HEENT: normocephalic, atraumatic, anicteric, mucous membranes moist Respiratory/Chest: chest wall non-tender, lungs clear, normal breath sounds, no respiratory distress, no accessory muscle use Cardiovascular: normal peripheral pulses, normal rate, regular rhythm, no gallop/murmur, no JVD Abdomen: normal bowel sounds, soft, non tender, no organomegaly, non distended , no mass, no scars Extremities: other - left heel wound and left lateral wound with gangrenous changes and foul smell . dark otero color drainage Skin: no rash, no lesions, ulcers - left heel and lateral foot Neurologic/Psychiatric: unresponsiveness Lymphatic: no neck adenopathy, no groin adenopathy Musculoskeletal: no effusion, atrophy Laboratory Tests Test 08/26/17 06:50 White Blood Count 7.8 K/UL (4.8-10.8) Red Blood Count 3.28 M/UL (4.20-5.40) L Hemoglobin 10.7 G/DL (12.0-16.0) L Hematocrit 30.8 % (37.0-47.0) L Mean Corpuscular Volume 94 FL (80-99) Mean Corpuscular Hemoglobin 32.8 PG (27.0-31.0) H Mean Corpuscular Hemoglobin Concent 34.9 G/DL (32.0-36.0) Red Cell Distribution Width 13.9 % (11.6-14.8) Platelet Count 196 K/UL (150-450) Mean Platelet Volume 8.9 FL (6.5-10.1) Neutrophils (%) (Auto) 63.9 % (45.0-75.0) Lymphocytes (%) (Auto) 25.6 % (20.0-45.0) Monocytes (%) (Auto) 7.3 % (1.0-10.0) Eosinophils (%) (Auto) 2.5 % (0.0-3.0) Basophils (%) (Auto) 0.7 % (0.0-2.0) Prothrombin Time 10.7 SEC (9.30-11.50) Prothromb Time International Ratio 1.0 (0.9-1.1) Activated Partial Thromboplast Time 28 SEC (23-33) Sodium Level 137 MMOL/L (136-145) Potassium Level 3.0 MMOL/L (3.5-5.1) L Chloride Level 103 MMOL/L (98-107) Carbon Dioxide Level 22 MMOL/L (21-32) Anion Gap 12 mmol/L (5-15) Blood Urea Nitrogen 28 mg/dL (7-18) H Creatinine 1.7 MG/DL (0.55-1.30) H Estimat Glomerular Filtration Rate mL/min (>60) Glucose Level 199 MG/DL (74-106) H Uric Acid 4.6 MG/DL (2.6-7.2) Calcium Level 9.0 MG/DL (8.5-10.1) Phosphorus Level 3.1 MG/DL (2.5-4.9) Magnesium Level 1.8 MG/DL (1.8-2.4) Total Bilirubin 0.4 MG/DL (0.2-1.0) Aspartate Amino Transf (AST/SGOT) 17 U/L (15-37) Alanine Aminotransferase (ALT/SGPT) 11 U/L (12-78) L Alkaline Phosphatase 100 U/L (46-116) Troponin I 0.001 ng/mL (0.000-0.056) Pro-B-Type Natriuretic Peptide 1533 pg/mL (0-125) H Total Protein 9.4 G/DL (6.4-8.2) H Albumin 2.5 G/DL (3.4-5.0) L Globulin 6.9 g/dL Albumin/Globulin Ratio 0.4 (1.0-2.7) L Current Medications Medications (Trade) Dose Ordered Sig/Nancy Route PRN Reason Start Time Stop Time Status Last Admin Dose Admin Acetaminophen (Tylenol) 650 mg Q4H PRN GT temp 100 mild pain 08/22/17 22:30 09/21/17 22:29 Albuterol Sulfate (Proventil) 2.5 mg Q4HRT HHN 08/22/17 23:00 08/27/17 22:59 08/26/17 11:39 Clonidine HCl (Catapres Tab) 0.1 mg EVERY 6 HOURS PRN GT For High BP 160 syst 08/22/17 22:30 09/21/17 22:29 Dextrose (Dextrose 50%) 25 ml STAT PRN IV Hypoglycemia 08/23/17 09:15 09/22/17 09:14 Dextrose (Dextrose 50%) 50 ml STAT PRN IV Hypoglycemia 08/23/17 09:15 09/22/17 09:14 Famotidine (Pepcid) 20 mg BID GT 08/23/17 09:00 09/22/17 08:59 08/26/17 07:55 Insulin Aspart (NovoLOG) EVERY 6 HOURS SUBQ 08/23/17 18:00 09/22/17 11:29 08/26/17 11:57 Levetiracetam (Keppra) 500 mg BID GT 08/23/17 09:00 09/22/17 08:59 08/26/17 07:54 Metoclopramide HCl (Reglan) 5 mg Q6HR GT 08/23/17 00:00 09/22/17 00:00 08/26/17 11:56 Ondansetron HCl (Zofran) 4 mg Q6H PRN IVP Nausea & Vomiting 08/22/17 22:45 09/21/17 22:44 Piperacillin Sod/ Tazobactam Sod 3.375 gm/Sodium Chloride 110 ml @ 27.5 mls/hr EVERY 8 HOURS IVPB 08/22/17 23:30 08/27/17 23:29 08/26/17 05:35 Polyethylene Glycol (Miralax) 17 gm DAILY PRN GT Constipation 08/22/17 22:30 09/21/17 22:29 Potassium Chloride 40 meq/ Sodium Chloride 570 ml @ 142.5 mls/ hr ONCE ONCE IVPB 08/26/17 13:00 08/26/17 16:59 Tramadol HCl (Ultram) 25 mg Q6HR PRN GT sever pain 08/22/17 22:30 08/29/17 22:29 Vancomycin HCl (Vanco rx to dose) 1 ea DAILY PRN MISC Per rx protocol 08/22/17 22:45 09/21/17 22:44 Vancomycin HCl 1 gm/Dextrose 275 ml @ 183.708 mls/hr Q24H IVPB 08/25/17 13:00 08/30/17 12:59 08/26/17 12:16 Ayala Forman M.D. Aug 26, 2017 14:11
[2017-08-26] MEDS ORDERED: Sterile Water Irrig 1000ml IRRIG ONE (14:24)
[2017-08-26 15:44] VITALS: BP 147/62
--- NOTE | 2017-08-26 16:03 | General Progress Note ---
Assessment/Plan Problem List: (1) UTI (urinary tract infection) (2) Sepsis ICD Codes: A41.9 - Sepsis, unspecified organism SNOMED: 29816363 (3) DVT (deep vein thrombosis) in ICD Codes: O22.30 - Deep phlebothrombosis in , unspecified trimester; I82.409 - Acute embolism and thrombosis of unspecified deep veins of unspecified lower extremity SNOMED: 44829102 (4) Diabetes ICD Codes: E11.9 - Type 2 diabetes mellitus without complications SNOMED: 81706301 (5) Anemia ICD Codes: D64.9 - Anemia, unspecified SNOMED: 533802593 Qualifiers: Qualified Codes: D64.9 - Anemia, unspecified (6) Hypernatremia ICD Codes: E87.0 - Hyperosmolality and hypernatremia SNOMED: 04882565 (7) Osteomyelitis of ankle or foot, left, acute ICD Codes: M86.172 - Other acute osteomyelitis, left ankle and foot SNOMED: 542464477 (8) Pneumonia involving left lung ICD Codes: J18.9 - Pneumonia, unspecified organism SNOMED: 856940716 Status: unchanged Assessment/Plan K supplement DPOA refuses amputation will arrange LTAC transfer [employer] consult resume Lovenox for DVT Per ID and Surg GT feeding per order transfuse as needed Subjective ROS Limited/Unobtainable: No Constitutional: Reports: malaise, weakness Allergies: Coded Allergies: No Known Allergies (Verified , 01/27/10) Objective Last 24 Hour Vital Signs Date Time Temp Pulse Resp B/P (MAP) Pulse Ox O2 Delivery O2 Flow Rate FiO2 08/26/17 15:44 98.0 79 18 147/62 99 Room Air 98.0 08/26/17 15:37 85 20 99 Room Air 21 08/26/17 15:30 84 20 98 Room Air 21 08/26/17 14:34 98.4 08/26/17 14:04 98.4 08/26/17 12:00 98.0 81 18 140/60 99 Room Air 98.0 08/26/17 11:47 80 20 99 Room Air 21 08/26/17 11:44 81 08/26/17 11:39 82 20 98 Room Air 21 08/26/17 08:53 98.4 81 18 142/59 99 Room Air 98.4 08/26/17 08:34 86 20 99 Room Air 21 08/26/17 08:24 97 Room Air 21 08/26/17 08:24 Room Air 21 08/26/17 08:24 85 20 97 Room Air 21 08/26/17 07:41 78 08/26/17 04:00 98.4 81 18 144/66 99 Room Air 98.4 08/26/17 04:00 84 08/26/17 03:06 84 20 99 Room Air 21 08/26/17 02:53 79 20 97 Room Air 21 08/26/17 00:00 98.6 61 20 154/65 98 Room Air 98.6 08/26/17 00:00 75 08/25/17 23:02 85 20 100 Room Air 21 08/25/17 22:45 78 20 98 Room Air 21 08/25/17 20:00 77 08/25/17 20:00 98.8 84 20 138/87 100 Room Air 98.8 08/25/17 19:58 87 20 100 Room Air 08/25/17 19:50 85 20 98 Room Air 21 08/25/17 19:49 98 Room Air 21 08/25/17 19:49 Room Air 08/25/17 16:00 77 08/25/17 16:00 97.3 73 22 153/76 97 Room Air 97.3 Intake and Output 08/25/17 08/26/17 19:00 07:00 Intake Total 1641 ml Output Total 1200 ml 525 ml Balance -1200 ml 1116 ml Free Water 300 ml IV Total 1011 ml Tube Feeding 330 ml Output Urine Total 1200 ml 525 ml # Bowel Movements 2 3 Laboratory Tests 08/26/17 06:50: White Blood Count 7.8, Red Blood Count 3.28L, Hemoglobin 10.7L, Hematocrit 30.8L , Mean Corpuscular Volume 94, Mean Corpuscular Hemoglobin 32.8H, Mean Corpuscular Hemoglobin Concent 34.9, Red Cell Distribution Width 13.9, Platelet Count 196, Mean Platelet Volume 8.9, Neutrophils (%) (Auto) 63.9, Lymphocytes (% ) (Auto) 25.6, Monocytes (%) (Auto) 7.3, Eosinophils (%) (Auto) 2.5, Basophils ( %) (Auto) 0.7, Prothrombin Time 10.7, Prothromb Time International Ratio 1.0, Activated Partial Thromboplast Time 28, Sodium Level 137, Potassium Level 3.0L, Chloride Level 103, Carbon Dioxide Level 22, Anion Gap 12, Blood Urea Nitrogen 28H, Creatinine 1.7H, Estimat Glomerular Filtration Rate , Glucose Level 199H, Uric Acid 4.6, Calcium Level 9.0, Phosphorus Level 3.1, Magnesium Level 1.8, Total Bilirubin 0.4, Aspartate Amino Transf (AST/SGOT) 17, Alanine Aminotransferase (ALT/SGPT) 11L, Alkaline Phosphatase 100, Troponin I 0.001, Pro -B-Type Natriuretic Peptide 1533H, Total Protein 9.4H, Albumin 2.5L, Globulin 6.9, Albumin/Globulin Ratio 0.4L Height (Feet): 5 Height (Inches): 5.00 Weight (Pounds): 200 General Appearance: no apparent distress Neck: limited range of motion Cardiovascular: tachycardia Respiratory/Chest: decreased breath sounds Abdomen: soft GEORGE MONDRAGON Aug 26, 2017 16:03
[2017-08-26] MEDS: Enoxaparin Sodium 300mg/3ml vial SUBQ SCH (17:19)
--- NOTE | 2017-08-26 18:58 | Consultation ---
History of Present Illness General Date patient seen: Aug 26, 2017 Chief Complaint: General Complaint Reason for Consultation: dyspnea Present Illness HPI 82-year-old female with hx of dementia, vegetative state, Gtube feeding, senior living resident presented to ED for evaluation of fever and vomiting. She was previously diagnosed to have non-healing left heel osteomyelitis. Pt' s DPOA has in the past refused amputation. Pt is admitted again for reevaluation. Apparently the osteomyelitis has progressed despite antibiotics. The surgeon recommended amputation again. Pt DPOA wanted to know my opinion about the amputation. No other aggravating relieving factors. No other associated symptoms. Allergies: Coded Allergies: No Known Allergies (Verified , 01/27/10) Medication History Scheduled Albuterol Sulfate* (Albuterol Sulfate Hhn*), 2.5 MG HHN Q4HRT Amlodipine Besylate (Norvasc), 5 MG GT DAILY, (Reported) Amlodipine Besylate (Norvasc), 5 MG GT BID Ampicillin Trihydrate (Ampicillin Trihydrate), 500 MG GT EVERY 6 HOURS Apixaban (Eliquis), 5 MG GT BID Ascorbic Acid* (Vitamin C*), 500 MG GT DAILY, (Reported) Ascorbic Acid* (Vitamin C*), 500 MG GT DAILY, (Reported) Bacitracin (Bacitracin), 1 APPLIC TOPIC BID Carvedilol (Coreg), 6.25 MG GT EVERY 12 HOURS Cefdinir (Cefdinir), 300 MG ORAL Q12HR Cranberry (Cranberry), 450 MG GT DAILY, (Reported) Docusate Sodium (Docusate Sodium), 100 MG GT TID Docusate Sodium* (Docusate Sodium*), 100 MG GT TWICE A DAY, (Reported) Docusate Sodium* (Colace*), 100 MG GT TWICE A DAY, (Reported) Doxycycline Hyclate (Doxycycline Hyclate), 100 MG GT EVERY 12 HOURS Enoxaparin* (Lovenox*), 80 MG SUBQ QPM Famotidine (Famotidine), 20 MG GT BID Furosemide* (Lasix*), 20 MG ORAL DAILY Heparin Sodium,Porcine/Pf (Heparin Sod 1,000 Unit/Ml Vial), 5,000 UNITS SUBQ BID , (Reported) Insulin Aspart (Novolog Flexpen), 0 UNITS SUBQ BEFORE MEALS AND HS Insulin Aspart (Novolog Flexpen), 0 UNITS SUBQ EVERY 6 HOURS Levetiracetam (Keppra), 500 MG GT DAILY, (Reported) Levetiracetam (Levetiracetam), 500 MG GT BID Metoclopramide Hcl* (Metoclopramide Hcl*), 5 MG GT EVERY 6 HOURS Multivitamin (Daily Vitamin), 1 TAB GT DAILY, (Reported) Multivitamin With Minerals (Multivitamins With Minerals*), 1 TAB GT DAILY, ( Reported) Omeprazole (Omeprazole), 20 MG GT DAILY, (Reported) Phenytoin (Phenytoin*), 100 MG GT BID Phenytoin Sodium Extended* (Dilantin*), Unknown Dose GT THREE TIMES A DAY, ( Reported) Potassium Chloride (Potassium Chloride), 20 MEQ ORAL DAILY Ranitidine Hcl* (Zantac*), 150 MG GT DAILY, (Reported) Simvastatin (Zocor), 40 MG GT BEDTIME, (Reported) Tramadol Hcl* (Ultram*), 50 MG GT BID, (Reported) Tramadol Hcl* (Ultram*), 25 MG GT Q8HR Warfarin Sod* (Coumadin*), 2.5 MG ORAL COUMADIN Warfarin Sod* (Coumadin*), 5 MG GT DAILY, (Reported) Zinc Sulfate (Zinc Sulfate*), 220 MG GT DAILY, (Reported) Scheduled PRN Acetaminophen (Tylenol 8 Hour), 650 MG GT Q4HR PRN for Mild Pain/Temp > 100.5, ( Reported) Acetaminophen (Acetaminophen), 650 MG GT Q4H PRN Acetaminophen* (Tylenol Extra Strength*), 1,000 MG GT Q4HR PRN for Mild Pain/ Temp > 100.5, (Reported) Acetaminophen* (Acetaminophen 325MG Tablet*), 650 MG GT Q4H PRN for For Pain, ( Reported) Clonidine Hcl* (Catapres*), 0.1 MG GT EVERY 6 HOURS PRN for For High Blood Pressure, (Reported) Diphenhydramine Hcl* (Benadryl*), 25 MG GT Q6H PRN for Itching, (Reported) Magnesium Hydroxide (Milk of Magnesia), 30 ML GT DAILY PRN for Constipation, ( Reported) Na Phos,M-B/Na Phos,Di-Ba* (Fleet Enema*), 133 ML RECTAL DAILY PRN for Constipation, (Reported) Nitroglycerin (Nitroglycerin), 0.4 MG SL EVERY 5 MIN PRN for CHEST PAIN, ( Reported) Ondansetron (Zofran), 4 MG ORAL Q6H PRN for Nausea & Vomiting Ondansetron* (Zofran*), 4 MG ORAL Q6H PRN for Nausea & Vomiting, (Reported) Polyethylene Glycol 3350* (Miralax*), 17 GM GT DAILY PRN for Constipation, ( Reported) [[facility] pharmacy to dose], 1 EA MISC DAILY PRN Miscellaneous Medications [regular insulin], (Reported) Patient History Healthcare decision maker Estevan Lebron Resuscitation status Advanced Directive on File Past Medical/Surgical History Past Medical/Surgical History: (1) G tube feedings (2) Right hemiparesis (3) Functional quadriplegia Review of Systems All Other Systems: negative except mentioned in HPI Physical Exam General Appearance: WD/WN Lines, tubes and drains: peripheral HEENT: normocephalic, atraumatic Neck: non-tender, normal alignment Respiratory/Chest: chest wall non-tender, lungs clear Breasts: no masses Cardiovascular/Chest: normal peripheral pulses, normal rate Abdomen: normal bowel sounds, non tender Genitourinary/Rectal: normal genital exam Extremities: normal range of motion Skin Exam: normal pigmentation Last 24 Hour Vital Signs Date Time Temp Pulse Resp B/P (MAP) Pulse Ox O2 Delivery O2 Flow Rate FiO2 08/26/17 16:14 72 08/26/17 15:44 98.0 79 18 147/62 99 Room Air 98.0 08/26/17 15:37 85 20 99 Room Air 21 08/26/17 15:30 84 20 98 Room Air 21 08/26/17 14:34 98.4 08/26/17 14:04 98.4 08/26/17 12:00 98.0 81 18 140/60 99 Room Air 98.0 08/26/17 11:47 80 20 99 Room Air 21 08/26/17 11:44 81 08/26/17 11:39 82 20 98 Room Air 21 08/26/17 08:53 98.4 81 18 142/59 99 Room Air 98.4 08/26/17 08:34 86 20 99 Room Air 21 08/26/17 08:24 97 Room Air 21 08/26/17 08:24 Room Air 21 08/26/17 08:24 85 20 97 Room Air 21 08/26/17 07:41 78 08/26/17 04:00 98.4 81 18 144/66 99 Room Air 98.4 08/26/17 04:00 84 08/26/17 03:06 84 20 99 Room Air 21 08/26/17 02:53 79 20 97 Room Air 21 08/26/17 00:00 98.6 61 20 154/65 98 Room Air 98.6 08/26/17 00:00 75 08/25/17 23:02 85 20 100 Room Air 21 08/25/17 22:45 78 20 98 Room Air 21 08/25/17 20:00 77 08/25/17 20:00 98.8 84 20 138/87 100 Room Air 98.8 08/25/17 19:58 87 20 100 Room Air 21 08/25/17 19:50 85 20 98 Room Air 21 08/25/17 19:49 98 Room Air 21 08/25/17 19:49 Room Air 21 Intake and Output 08/25/17 08/26/17 19:00 07:00 Intake Total 1671 ml Output Total 1200 ml 525 ml Balance -1200 ml 1146 ml Free Water 300 ml IV Total 1011 ml Tube Feeding 360 ml Output Urine Total 1200 ml 525 ml # Bowel Movements 2 3 Laboratory Tests Test 08/26/17 06:50 White Blood Count 7.8 K/UL (4.8-10.8) Red Blood Count 3.28 M/UL (4.20-5.40) L Hemoglobin 10.7 G/DL (12.0-16.0) L Hematocrit 30.8 % (37.0-47.0) L Mean Corpuscular Volume 94 FL (80-99) Mean Corpuscular Hemoglobin 32.8 PG (27.0-31.0) H Mean Corpuscular Hemoglobin Concent 34.9 G/DL (32.0-36.0) Red Cell Distribution Width 13.9 % (11.6-14.8) Platelet Count 196 K/UL (150-450) Mean Platelet Volume 8.9 FL (6.5-10.1) Neutrophils (%) (Auto) 63.9 % (45.0-75.0) Lymphocytes (%) (Auto) 25.6 % (20.0-45.0) Monocytes (%) (Auto) 7.3 % (1.0-10.0) Eosinophils (%) (Auto) 2.5 % (0.0-3.0) Basophils (%) (Auto) 0.7 % (0.0-2.0) Prothrombin Time 10.7 SEC (9.30-11.50) Prothromb Time International Ratio 1.0 (0.9-1.1) Activated Partial Thromboplast Time 28 SEC (23-33) Sodium Level 137 MMOL/L (136-145) Potassium Level 3.0 MMOL/L (3.5-5.1) L Chloride Level 103 MMOL/L (98-107) Carbon Dioxide Level 22 MMOL/L (21-32) Anion Gap 12 mmol/L (5-15) Blood Urea Nitrogen 28 mg/dL (7-18) H Creatinine 1.7 MG/DL (0.55-1.30) H Estimat Glomerular Filtration Rate mL/min (>60) Glucose Level 199 MG/DL (74-106) H Uric Acid 4.6 MG/DL (2.6-7.2) Calcium Level 9.0 MG/DL (8.5-10.1) Phosphorus Level 3.1 MG/DL (2.5-4.9) Magnesium Level 1.8 MG/DL (1.8-2.4) Total Bilirubin 0.4 MG/DL (0.2-1.0) Aspartate Amino Transf (AST/SGOT) 17 U/L (15-37) Alanine Aminotransferase (ALT/SGPT) 11 U/L (12-78) L Alkaline Phosphatase 100 U/L (46-116) Troponin I 0.001 ng/mL (0.000-0.056) Pro-B-Type Natriuretic Peptide 1533 pg/mL (0-125) H Total Protein 9.4 G/DL (6.4-8.2) H Albumin 2.5 G/DL (3.4-5.0) L Globulin 6.9 g/dL Albumin/Globulin Ratio 0.4 (1.0-2.7) L Height (Feet): 5 Height (Inches): 5.00 Weight (Pounds): 200 Medications Current Medications Medications (Trade) Dose Ordered Sig/Nancy Route PRN Reason Start Time Stop Time Status Last Admin Dose Admin Acetaminophen (Tylenol) 650 mg Q4H PRN GT temp 100 mild pain 08/22/17 22:30 09/21/17 22:29 08/26/17 14:04 Albuterol Sulfate (Proventil) 2.5 mg Q4HRT HHN 08/22/17 23:00 08/27/17 22:59 08/26/17 15:30 Clonidine HCl (Catapres Tab) 0.1 mg EVERY 6 HOURS PRN GT For High BP 160 syst 08/22/17 22:30 09/21/17 22:29 Dextrose (Dextrose 50%) 25 ml STAT PRN IV Hypoglycemia 08/23/17 09:15 09/22/17 09:14 Dextrose (Dextrose 50%) 50 ml STAT PRN IV Hypoglycemia 08/23/17 09:15 09/22/17 09:14 Enoxaparin Sodium (Lovenox) 90 mg DAILY@1800 SUBQ 08/26/17 18:00 09/25/17 17:59 08/26/17 17:19 Famotidine (Pepcid) 20 mg BID GT 08/23/17 09:00 09/22/17 08:59 08/26/17 17:13 Insulin Aspart (NovoLOG) EVERY 6 HOURS SUBQ 08/23/17 18:00 09/22/17 11:29 08/26/17 18:11 Levetiracetam (Keppra) 500 mg BID GT 08/23/17 09:00 09/22/17 08:59 08/26/17 17:13 Metoclopramide HCl (Reglan) 5 mg Q6HR GT 08/23/17 00:00 09/22/17 00:00 08/26/17 17:13 Ondansetron HCl (Zofran) 4 mg Q6H PRN IVP Nausea & Vomiting 08/22/17 22:45 09/21/17 22:44 Piperacillin Sod/ Tazobactam Sod 3.375 gm/Sodium Chloride 110 ml @ 27.5 mls/hr EVERY 8 HOURS IVPB 08/22/17 23:30 08/27/17 23:29 08/26/17 15:23 Polyethylene Glycol (Miralax) 17 gm DAILY PRN GT Constipation 08/22/17 22:30 09/21/17 22:29 Tramadol HCl (Ultram) 25 mg Q6HR PRN GT sever pain 08/22/17 22:30 08/29/17 22:29 Vancomycin HCl (Vanco rx to dose) 1 ea DAILY PRN MISC Per rx protocol 08/22/17 22:45 09/21/17 22:44 Vancomycin HCl 1 gm/Dextrose 275 ml @ 183.708 mls/hr Q24H IVPB 08/25/17 13:00 08/30/17 12:59 08/26/17 12:16 Assessment/Plan Problem List: (1) Sepsis ICD Codes: A41.9 - Sepsis, unspecified organism SNOMED: 64080629 (2) Osteomyelitis of ankle or foot, left, acute ICD Codes: M86.172 - Other acute osteomyelitis, left ankle and foot SNOMED: 838927532 (3) G tube feedings ICD Codes: Z93.1 - G tube feedings SNOMED: 678576074 (4) Functional quadriplegia ICD Codes: R53.2 - Functional quadriplegia SNOMED: 476734065573661 (5) Right hemiparesis ICD Codes: G81.90 - Hemiplegia, unspecified affecting unspecified side SNOMED: 515998994 (6) Diabetes ICD Codes: E11.9 - Type 2 diabetes mellitus without complications SNOMED: 53883830 Assessment/Plan I discussed extensively with the DPOA about different options. She is not ready for comfort and end-of-life care. She wants to find out what caused the wound and what organisms are involved. She asked for the records as well. The rest of the team informed about my conversation. Saira Lazcano MD Aug 26, 2017 18:58
[2017-08-26 20:00] VITALS: BP 140/80
--- NOTE | 2017-08-26 22:01 | General Progress Note ---
Progress Note Progress Note Surgery spoke with conservator late this evening after receiving phone call from her. Discussed condition and care. discussed recommendations I explained condition in detail including history of worsening osteomyelitis refractory to medical therapy. I explain that initial management with IV abx and limb sparing has failed as of last admission and I have recommended amputation for source control and refractory osteo and worsening infection since last admission. I explained risks of worsening infection, bacteremia, sepsis, and even . i explained that even though these risks are not imminent or maybe even not very high risk, the risks of no intervention are higher than risk of surgery. She is overall at risk for complications and adverse events of surgery given her medical condition but if nothing is done it would be even worse if not fatal. we discussed rational for AKA vs BKA vs distal amputation (she has knee contracture and poor peripheral vascular with progressive infection). Despite discussions she has refused surgery at this time stating that she wants more information (talk with ID, second opinion, etc. ) she also wants to investigate the infections? as per her. I did not recommend waiting much longer as recommendations for care plan were made as of last admission when she stated the above would be done but seems as if she has not followed up. still recommend care plan as noted above until decision is made about care plan cont with wound care and abx thank you for allowing me to participate in patients care. Taco Carter Aug 26, 2017 22:01
[2017-08-27] VITALS: BP 124/70
[2017-08-27] MEDS: Metoclopramide 10mg/10ml Liq GT SCH ×4 (00:01→18:18)
[2017-08-27] MEDS: NovoLOG Insulin Flexpen SUBQ SCH ×4 (00:02→18:23)
[2017-08-27] MEDS: Albuterol ud Inhalation HHN SCH ×5 (02:22→19:28)
[2017-08-27 04:00] VITALS: BP 130/81
[2017-08-27] MEDS: Zoysn 3.37gm in NS 100ML IVPB SCH (05:52)
[2017-08-27 08:00] VITALS: BP 156/82
--- NOTE | 2017-08-27 11:55 | Infectious Diseases Prog Note ---
Assessment/Plan Problems: (1) Osteomyelitis of ankle or foot, left, acute Assessment & Plan: due to pseudomonas , proteus mirabilis and other gram positive cocci , with gangrenous skin changes , will treat with vancomycin and Zosyn for 6-8 weeks , she will need amputation below the knee for source control , since she failed antibiotics in the past and the chance of recovery and saving the left foot is very low, and she is at high risk for complication from the infected foot such as sepsis , multiorgans failure and , conservative is aware of these risk and still refused amputations , surgery has recommended the same . D/W other consultants (2) Heel ulcer Assessment & Plan: not improving with worsening osteomyelitis , she will need amputation for source control , continue wide spectrum antibiotics (3) Sepsis Assessment & Plan: due to the above , continue wide spectrum antibiotics pending final culture and possible amputations . (4) Fever Assessment & Plan: due to the above , improving with wide spectrum antibiotics , suspect due to infected left foot with osteomyelitis. (5) Diabetes Assessment & Plan: recommend tight glycemic control to keep blood glucose between 100-140 (6) Diarrhea Assessment & Plan: rule out C diff infection, will stop laxatives and await stool for C diff Subjective ROS Limited/Unobtainable: Yes Allergies: Coded Allergies: No Known Allergies (Verified , 01/27/10) Subjective she was lying in bed, unresponsive to verbal commands , no fever or chills , had two bowel movements last night , still has draining from the left heel wound , with foul smell coming from the heel wound too and some gangrenous changes in the skin Objective Vital Signs Last 24 Hour Vital Signs Date Time Temp Pulse Resp B/P (MAP) Pulse Ox O2 Delivery O2 Flow Rate FiO2 08/27/17 11:35 85 20 100 Room Air 21 08/27/17 11:25 80 20 98 Room Air 21 08/27/17 08:00 98.9 85 18 156/82 99 Room Air 98.9 08/27/17 08:00 86 08/27/17 06:58 87 20 100 Room Air 21 08/27/17 06:45 98 Room Air 21 08/27/17 06:45 Room Air 21 08/27/17 06:45 84 20 98 Room Air 21 08/27/17 04:00 96.4 89 22 130/81 98 Room Air 96.4 08/27/17 04:00 80 08/27/17 02:31 88 20 100 Room Air 21 08/27/17 02:23 84 20 96 Room Air 21 08/27/17 00:00 97.1 92 22 124/70 96 Room Air 97.1 08/27/17 00:00 80 08/26/17 23:35 86 20 100 Room Air 21 08/26/17 23:25 86 20 98 Room Air 21 08/26/17 20:58 84 20 100 Room Air 21 08/26/17 20:44 96 20 98 Room Air 21 08/26/17 20:44 Room Air 21 08/26/17 20:44 98 Room Air 21 08/26/17 20:00 83 08/26/17 20:00 96.6 76 22 140/80 97 Room Air 96.6 08/26/17 16:14 72 08/26/17 15:44 98.0 79 18 147/62 99 Room Air 98.0 08/26/17 15:37 85 20 99 Room Air 21 08/26/17 15:30 84 20 98 Room Air 21 08/26/17 14:34 98.4 08/26/17 14:04 98.4 08/26/17 12:00 98.0 81 18 140/60 99 Room Air 98.0 Height (Feet): 5 Height (Inches): 5.00 Weight (Pounds): 200 General Appearance: WD/WN, no acute distress, other - unresponsive HEENT: normocephalic, atraumatic, anicteric, mucous membranes moist, supple, no JVD, other - tongue sticking outside Respiratory/Chest: chest wall non-tender, lungs clear, normal breath sounds, no respiratory distress, no accessory muscle use Cardiovascular: normal peripheral pulses, normal rate, regular rhythm, no gallop/murmur, no JVD Abdomen: normal bowel sounds, soft, non tender, no organomegaly, non distended , no mass, no scars Extremities: other - left heel and lateral leg wounds, has granulations at the base, with gangrenous changes at the dorsum aspect of the foot , and foul smell. Microbiology Date/Time Source Procedure Growth Status 08/26/17 12:00 Stool Clostridium difficile Toxin Assay - Final Complete Current Medications Medications (Trade) Dose Ordered Sig/Nancy Route PRN Reason Start Time Stop Time Status Last Admin Dose Admin Acetaminophen (Tylenol) 650 mg Q4H PRN GT temp 100 mild pain 08/22/17 22:30 09/21/17 22:29 08/26/17 14:04 Albuterol Sulfate (Proventil) 2.5 mg Q4HRT HHN 08/22/17 23:00 08/27/17 22:59 08/27/17 11:31 Clonidine HCl (Catapres Tab) 0.1 mg EVERY 6 HOURS PRN GT For High BP 160 syst 08/22/17 22:30 09/21/17 22:29 Dextrose (Dextrose 50%) 25 ml STAT PRN IV Hypoglycemia 08/23/17 09:15 09/22/17 09:14 Dextrose (Dextrose 50%) 50 ml STAT PRN IV Hypoglycemia 08/23/17 09:15 09/22/17 09:14 Enoxaparin Sodium (Lovenox) 90 mg DAILY@1800 SUBQ 08/26/17 18:00 09/25/17 17:59 08/26/17 17:19 Famotidine (Pepcid) 20 mg BID GT 08/23/17 09:00 09/22/17 08:59 08/27/17 09:12 Insulin Aspart (NovoLOG) EVERY 6 HOURS SUBQ 08/23/17 18:00 09/22/17 11:29 08/27/17 05:54 Levetiracetam (Keppra) 500 mg BID GT 08/23/17 09:00 09/22/17 08:59 08/27/17 09:12 Metoclopramide HCl (Reglan) 5 mg Q6HR GT 08/23/17 00:00 09/22/17 00:00 08/27/17 05:53 Ondansetron HCl (Zofran) 4 mg Q6H PRN IVP Nausea & Vomiting 08/22/17 22:45 09/21/17 22:44 Piperacillin Sod/ Tazobactam Sod 3.375 gm/Sodium Chloride 110 ml @ 27.5 mls/hr EVERY 8 HOURS IVPB 08/22/17 23:30 10/04/17 23:59 08/27/17 05:52 Polyethylene Glycol (Miralax) 17 gm DAILY PRN GT Constipation 08/22/17 22:30 09/21/17 22:29 Tramadol HCl (Ultram) 25 mg Q6HR PRN GT sever pain 08/22/17 22:30 08/29/17 22:29 Vancomycin HCl (Vanco rx to dose) 1 ea DAILY PRN MISC Per rx protocol 08/22/17 22:45 09/21/17 22:44 Vancomycin HCl 1 gm/Dextrose 275 ml @ 183.708 mls/hr Q24H IVPB 08/25/17 13:00 10/04/17 23:59 08/26/17 12:16 Ayala Forman M.D. Aug 27, 2017 11:55
[2017-08-27 12:00] VITALS: BP 149/81
--- NOTE | 2017-08-27 12:05 | General Progress Note ---
Assessment/Plan Problem List: (1) UTI (urinary tract infection) (2) Sepsis ICD Codes: A41.9 - Sepsis, unspecified organism SNOMED: 95890975 (3) DVT (deep vein thrombosis) in ICD Codes: O22.30 - Deep phlebothrombosis in , unspecified trimester; I82.409 - Acute embolism and thrombosis of unspecified deep veins of unspecified lower extremity SNOMED: 18380841 (4) Diabetes ICD Codes: E11.9 - Type 2 diabetes mellitus without complications SNOMED: 38411658 (5) Anemia ICD Codes: D64.9 - Anemia, unspecified SNOMED: 281218760 Qualifiers: Qualified Codes: D64.9 - Anemia, unspecified (6) Hypernatremia ICD Codes: E87.0 - Hyperosmolality and hypernatremia SNOMED: 93683388 (7) Osteomyelitis of ankle or foot, left, acute ICD Codes: M86.172 - Other acute osteomyelitis, left ankle and foot SNOMED: 627879303 (8) Pneumonia involving left lung ICD Codes: J18.9 - Pneumonia, unspecified organism SNOMED: 283470250 Status: stable Assessment/Plan K supplement DPOA refuses amputation will arrange LTAC transfer Per ID recs [employer] consult resume Lovenox for DVT Per ID and Surg GT feeding per order transfuse as needed Subjective ROS Limited/Unobtainable: No Constitutional: Reports: malaise, weakness Allergies: Coded Allergies: No Known Allergies (Verified , 01/27/10) Objective Last 24 Hour Vital Signs Date Time Temp Pulse Resp B/P (MAP) Pulse Ox O2 Delivery O2 Flow Rate FiO2 08/27/17 11:35 85 20 100 Room Air 21 08/27/17 11:25 80 20 98 Room Air 21 08/27/17 08:00 98.9 85 18 156/82 99 Room Air 98.9 08/27/17 08:00 86 08/27/17 06:58 87 20 100 Room Air 21 08/27/17 06:45 98 Room Air 21 08/27/17 06:45 Room Air 21 08/27/17 06:45 84 20 98 Room Air 21 08/27/17 04:00 96.4 89 22 130/81 98 Room Air 96.4 08/27/17 04:00 80 08/27/17 02:31 88 20 100 Room Air 21 08/27/17 02:23 84 20 96 Room Air 21 08/27/17 00:00 97.1 92 22 124/70 96 Room Air 97.1 08/27/17 00:00 80 08/26/17 23:35 86 20 100 Room Air 21 08/26/17 23:25 86 20 98 Room Air 21 08/26/17 20:58 84 20 100 Room Air 21 08/26/17 20:44 96 20 98 Room Air 21 08/26/17 20:44 Room Air 21 08/26/17 20:44 98 Room Air 21 08/26/17 20:00 83 08/26/17 20:00 96.6 76 22 140/80 97 Room Air 96.6 08/26/17 16:14 72 08/26/17 15:44 98.0 79 18 147/62 99 Room Air 98.0 08/26/17 15:37 85 20 99 Room Air 21 08/26/17 15:30 84 20 98 Room Air 21 08/26/17 14:34 98.4 08/26/17 14:04 98.4 Intake and Output 08/26/17 08/27/17 19:00 07:00 Intake Total 997.5 ml 530.0 ml Output Total 1000 ml 500 ml Balance -2.5 ml 30.0 ml Free Water 300 ml IV Total 367.5 ml 110.0 ml Tube Feeding 330 ml 360 ml Other 60 ml Output Urine Total 1000 ml 500 ml # Voids 1 # Bowel Movements 3 3 Height (Feet): 5 Height (Inches): 5.00 Weight (Pounds): 200 General Appearance: no apparent distress, lethargic Cardiovascular: normal rate Respiratory/Chest: decreased breath sounds Abdomen: soft Extremities: other - unchanged GEORGE MONDRAGON Aug 27, 2017 12:05
--- NOTE | 2017-08-27 12:20 | Pulmonology Progress Note ---
Assessment/Plan Problems: (1) Sepsis (2) Osteomyelitis of ankle or foot, left, acute (3) G tube feedings (4) Functional quadriplegia (5) Right hemiparesis (6) Diabetes Assessment/Plan continue abx check labs tolerating feeding check cultures consider LTAC dvt prophylaxis Subjective ROS Limited/Unobtainable: No Constitutional: Reports: no symptoms Respiratory: Reports: no symptoms Allergies: Coded Allergies: No Known Allergies (Verified , 01/27/10) Objective Last 24 Hour Vital Signs Date Time Temp Pulse Resp B/P (MAP) Pulse Ox O2 Delivery O2 Flow Rate FiO2 08/27/17 11:35 85 20 100 Room Air 21 08/27/17 11:25 80 20 98 Room Air 21 08/27/17 08:00 98.9 85 18 156/82 99 Room Air 98.9 08/27/17 08:00 86 08/27/17 06:58 87 20 100 Room Air 21 08/27/17 06:45 98 Room Air 21 08/27/17 06:45 Room Air 21 08/27/17 06:45 84 20 98 Room Air 21 08/27/17 04:00 96.4 89 22 130/81 98 Room Air 96.4 08/27/17 04:00 80 08/27/17 02:31 88 20 100 Room Air 21 08/27/17 02:23 84 20 96 Room Air 21 08/27/17 00:00 97.1 92 22 124/70 96 Room Air 97.1 08/27/17 00:00 80 08/26/17 23:35 86 20 100 Room Air 21 08/26/17 23:25 86 20 98 Room Air 21 08/26/17 20:58 84 20 100 Room Air 21 08/26/17 20:44 96 20 98 Room Air 21 08/26/17 20:44 Room Air 21 08/26/17 20:44 98 Room Air 21 08/26/17 20:00 83 08/26/17 20:00 96.6 76 22 140/80 97 Room Air 96.6 08/26/17 16:14 72 08/26/17 15:44 98.0 79 18 147/62 99 Room Air 98.0 08/26/17 15:37 85 20 99 Room Air 21 08/26/17 15:30 84 20 98 Room Air 21 08/26/17 14:34 98.4 08/26/17 14:04 98.4 Intake and Output 08/26/17 08/27/17 19:00 07:00 Intake Total 997.5 ml 530.0 ml Output Total 1000 ml 500 ml Balance -2.5 ml 30.0 ml Free Water 300 ml IV Total 367.5 ml 110.0 ml Tube Feeding 330 ml 360 ml Other 60 ml Output Urine Total 1000 ml 500 ml # Voids 1 # Bowel Movements 3 3 General Appearance: WD/WN HEENT: normocephalic, atraumatic Respiratory/Chest: chest wall non-tender, lungs clear Breasts: no masses Cardiovascular: normal peripheral pulses Abdomen: normal bowel sounds Extremities: no cyanosis Skin: no rash 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 Microbiology Date/Time Source Procedure Growth Status 08/26/17 12:00 Stool Clostridium difficile Toxin Assay - Final Complete Current Medications Medications (Trade) Dose Ordered Sig/Nancy Route PRN Reason Start Time Stop Time Status Last Admin Dose Admin Acetaminophen (Tylenol) 650 mg Q4H PRN GT temp 100 mild pain 08/22/17 22:30 09/21/17 22:29 08/26/17 14:04 Albuterol Sulfate (Proventil) 2.5 mg Q4HRT HHN 08/22/17 23:00 08/27/17 22:59 08/27/17 11:31 Clonidine HCl (Catapres Tab) 0.1 mg EVERY 6 HOURS PRN GT For High BP 160 syst 08/22/17 22:30 09/21/17 22:29 Dextrose (Dextrose 50%) 25 ml STAT PRN IV Hypoglycemia 08/23/17 09:15 09/22/17 09:14 Dextrose (Dextrose 50%) 50 ml STAT PRN IV Hypoglycemia 08/23/17 09:15 09/22/17 09:14 Enoxaparin Sodium (Lovenox) 90 mg DAILY@1800 SUBQ 08/26/17 18:00 09/25/17 17:59 08/26/17 17:19 Famotidine (Pepcid) 20 mg BID GT 08/23/17 09:00 09/22/17 08:59 08/27/17 09:12 Insulin Aspart (NovoLOG) EVERY 6 HOURS SUBQ 08/23/17 18:00 09/22/17 11:29 08/27/17 05:54 Levetiracetam (Keppra) 500 mg BID GT 08/23/17 09:00 09/22/17 08:59 08/27/17 09:12 Metoclopramide HCl (Reglan) 5 mg Q6HR GT 08/23/17 00:00 09/22/17 00:00 08/27/17 05:53 Ondansetron HCl (Zofran) 4 mg Q6H PRN IVP Nausea & Vomiting 08/22/17 22:45 09/21/17 22:44 Piperacillin Sod/ Tazobactam Sod 3.375 gm/Sodium Chloride 110 ml @ 27.5 mls/hr EVERY 8 HOURS IVPB 08/22/17 23:30 10/04/17 23:59 08/27/17 05:52 Polyethylene Glycol (Miralax) 17 gm DAILY PRN GT Constipation 08/22/17 22:30 09/21/17 22:29 Tramadol HCl (Ultram) 25 mg Q6HR PRN GT sever pain 08/22/17 22:30 08/29/17 22:29 Vancomycin HCl (Vanco rx to dose) 1 ea DAILY PRN MISC Per rx protocol 08/22/17 22:45 09/21/17 22:44 Vancomycin HCl 1 gm/Dextrose 275 ml @ 183.708 mls/hr Q24H IVPB 08/25/17 13:00 10/04/17 23:59 08/26/17 12:16 Saira Lazcano MD Aug 27, 2017 12:20
[2017-08-27] MEDS: Vancomycin 1gm/D5W 275ml IVPB SCH ×4 (12:35→13:00)
[2017-08-27 16:00] VITALS: BP 155/73
--- NOTE | 2017-08-27 17:07 | Consultation ---
Consult Note Assessment/Plan A/ 1) Chronic osteomyelitis left foot 2) Pressure ulcer left heel - necrotic and larger than previous admission 3) Rigid knee contracture left 4) DM P/ 1) Patient is bedbound, nonambulatory. Her knee has a rigid contracture. Has chronic osteomyelitis. Wound recommend an AKA. Agree with general surgery recommendations. Patient is at risk for severe complications and would benefit from surgery at this time. I called patient's POA Dejon Bernardino who is the niece of the patient. Explained in great detail risks, complications and benefits of surgery at this time. Niece states that she is leaning more toward surgery now, but will need to consider for a bit longer. 2) Cont wound care and abx for now 3) Will follow PRN Thank you El Pa DPM Aug 27, 2017 17:07
[2017-08-27] MEDS ORDERED: Sterile Water Irrig 1000ml IRRIG ONE (17:37)
[2017-08-27] MEDS ORDERED: NS 500ML ONE (17:37)
[2017-08-27] MEDS ORDERED: Tubing IV Secondary IV ONE (17:37)
[2017-08-27] MEDS: Enoxaparin Sodium 300mg/3ml vial SUBQ SCH (18:18)
[2017-08-27] MEDS: Piperacillin/Tazobactam 3.375 GM in D5W 110 ML IVPB SCH (18:25)
--- NOTE | 2017-08-27 19:00 | Consultation ---
DATE OF CONSULTATION: 08/27/2017 CONSULTING PHYSICIAN: El Cabrera D.P.M. REQUESTING PHYSICIAN: Estevan Orozco M.D. REASON FOR CONSULTATION: Worsening wound of the left foot. HISTORY OF PRESENT ILLNESS: The patient is an 82-year-old female, who was admitted to [facility] 08/23/2017 for sepsis, urinary tract infection and fever. Podiatry was consulted to assess left heel wound. The patient is nonverbal and history was obtained through chart review. PAST MEDICAL HISTORY: Significant for diabetes mellitus, dementia and G-tube placement, functional quadriplegia, hypertension, hypercholesterolemia, seizure disorder, and aphagia. The patient also has history of osteomyelitis in left heel. The patient also has a history of a deep venous thrombosis. MEDICATIONS: Per MAR and include Zosyn, Lovenox and vancomycin. SOCIAL HISTORY: The patient resides in a [facility] facility. FAMILY HISTORY: Noncontributory. REVIEW OF SYSTEMS: Unobtainable. PHYSICAL EXAMINATION: VITAL SIGNS: Temperature is 98.6 degrees, pulse is 87, respiration rate is 18, blood pressure is 155/73, and saturating 99% on room air. EXTREMITIES: Lower extremity physical exam, vascular, nonpalpable pedal pulses noted bilaterally. Feet are equally warm. No edema noted. No cyanosis noted. DERMATOLOGICAL: There is a large full-thickness ulceration noted on the posterior aspect and plantar aspect of the left heel. There is a large portion of it which is necrotic and unstageable. There is serous discharge noted from the site. No malodor is noted. No purulence is noted. No bone or tendon is exposed. Right foot is unremarkable. MUSCULOSKELETAL: The patient is bed bound, non-ambulatory. LABORATORY AND DIAGNOSTIC DATA: White blood cell count is 7.8, hemoglobin and hematocrit is 10.7 and 30.8, and platelet count is 196. Potassium is 3.0, BUN is 28, creatinine is 1.9 and glucose is 199. Hemoglobin A1c is 6.5. Uric acid is 8.6. C-reactive protein is 19.7. Albumin is 2.7. INR is 1.0. Cultures of the left foot growing out Pseudomonas aeruginosa, Proteus mirabilis and gram-positive cocci. Venous ultrasound performed of bilateral lower extremities reveals acute thrombus in the superficial femoral vein on the right leg. Remaining vessels of the right lower extremity are patent. Left lower extremity is . No DVT is noted. MRI done on 07/17/2017 showed increased extent of abnormal STIR and T1 signal to the calcaneus indicating progression of previously reported osteomyelitis. There is an erosion of the calcaneal tuberosity. ASSESSMENT: 1. Chronic osteomyelitis left foot. 2. Pressure ulcer left heel, necrotic and larger than previous admission. 3. Rigid knee contracture of left lower extremity. 4. Diabetes mellitus. PLAN: 1. The patient is bed bound, nonambulatory. Her knee has a rigid contracture, has chronic osteomyelitis and agree with the General Surgery's recommendation for [id number] amputation. The patient is at risk for severe complications and will benefit from surgery at this time. I called patient's power of senior trial attorney, Shama, who is a niece of the patient, explained in great detail the risks, complications and benefits of surgery at this time and he states that she is leaning more toward surgery now after our conversation. We will need to consider a bit longer. 2. Continue wound care and antibiotics for now. 3. We will follow up peripherally. Thank you for the courtesy of this consultation. El Cabrera D.P.M. DR: GUMARO JOB#: [id number] CC:
[2017-08-27 20:00] VITALS: BP 154/64
[2017-08-28] VITALS (7 sets, daily range): BP systolic 140–165; BP diastolic 50–82
[2017-08-28] MEDS: Metoclopramide 10mg/10ml Liq GT SCH ×4 (00:19→17:04)
[2017-08-28] MEDS: NovoLOG Insulin Flexpen SUBQ SCH ×4 (00:20→18:01)
[2017-08-28] MEDS: Piperacillin/Tazobactam 3.375 GM in D5W 110 ML IVPB SCH ×2 (05:31→22:34)
[2017-08-28 09:20] LABS: ANION GAP 11 mmol/L (5-15); BLOOD UREA NITROGEN 23 mg/dL (7-18); CALCIUM 9.1 MG/DL (8.5-10.1); CARBON DIOXIDE 25 MMOL/L (21-32); CHLORIDE 111 MMOL/L (98-107); CREATININE 1.4 MG/DL (0.55-1.30); POTASSIUM 3.2 MMOL/L (3.5-5.1); SODIUM 147 MMOL/L (136-145)
[2017-08-28] MEDS ORDERED: Potassium Chloride 40 MEQ in Sodium Chloride 500ML 550 ML IVPB ONE (11:00)
--- NOTE | 2017-08-28 12:14 | Pulmonology Progress Note ---
Assessment/Plan Problems: (1) Sepsis (2) Osteomyelitis of ankle or foot, left, acute (3) G tube feedings (4) Functional quadriplegia (5) Right hemiparesis (6) Diabetes Assessment/Plan continue abx check labs tolerating feeding check cultures consider LTAC dvt prophylaxis palliative care is a viable option in this case. Subjective ROS Limited/Unobtainable: No Constitutional: Reports: no symptoms HEENT: Repors: no symptoms Allergies: Coded Allergies: No Known Allergies (Verified , 01/27/10) Objective Last 24 Hour Vital Signs Date Time Temp Pulse Resp B/P (MAP) Pulse Ox O2 Delivery O2 Flow Rate FiO2 08/28/17 08:57 160/82 08/28/17 08:54 97.0 83 20 160/82 99 97.0 08/28/17 07:37 78 08/28/17 04:00 98.6 82 20 143/77 99 98.6 82 08/28/17 04:00 75 08/28/17 00:00 88 08/28/17 00:00 98.0 82 18 142/79 100 98.0 08/27/17 23:28 78 20 Room Air 21 08/27/17 20:00 88 08/27/17 20:00 97.7 88 18 154/64 98 Room Air 97.7 08/27/17 19:07 88 20 100 Room Air 21 08/27/17 19:03 86 20 100 Room Air 21 08/27/17 19:01 Room Air 21 08/27/17 19:01 100 Room Air 21 08/27/17 16:00 79 08/27/17 16:00 98.6 87 18 155/73 99 Room Air 98.6 08/27/17 15:18 87 20 100 Room Air 21 08/27/17 15:09 84 20 98 Room Air 21 Intake and Output 08/27/17 08/28/17 19:00 07:00 Intake Total 390 ml Output Total 650 ml 1200 ml Balance -650 ml -810 ml Tube Feeding 330 ml Other 60 ml Output Urine Total 650 ml 1200 ml Objective General Appearance: WD/WN, no acute distress HEENT: atraumatic Respiratory/Chest: normal breath sounds Abdomen: normal bowel sounds, soft, non tender Extremities: no cyanosis, clubbing, edema Skin: clean dressing on left heal Microbiology Date/Time Source Procedure Growth Status 08/26/17 12:00 Stool Clostridium difficile Toxin Assay - Final Complete Laboratory Tests 08/28/17 08:17: Sodium Level 147H, Potassium Level 3.2L, Chloride Level 111H, Carbon Dioxide Level 25, Anion Gap 11, Blood Urea Nitrogen 23H, Creatinine 1.4H, Estimat Glomerular Filtration Rate , Glucose Level 162H, Calcium Level 9.1, Random Vancomycin Level 21.1 Current Medications Medications (Trade) Dose Ordered Sig/Nancy Route PRN Reason Start Time Stop Time Status Last Admin Dose Admin Acetaminophen (Tylenol) 650 mg Q4H PRN GT temp 100 mild pain 08/22/17 22:30 09/21/17 22:29 08/26/17 14:04 Clonidine HCl (Catapres Tab) 0.1 mg EVERY 6 HOURS PRN GT For High BP 160 syst 08/22/17 22:30 09/21/17 22:29 08/28/17 08:57 Dextrose (Dextrose 50%) 25 ml STAT PRN IV Hypoglycemia 08/23/17 09:15 09/22/17 09:14 Dextrose (Dextrose 50%) 50 ml STAT PRN IV Hypoglycemia 08/23/17 09:15 09/22/17 09:14 Enoxaparin Sodium (Lovenox) 90 mg DAILY@1800 SUBQ 08/26/17 18:00 09/25/17 17:59 08/27/17 18:18 Famotidine (Pepcid) 20 mg BID GT 08/23/17 09:00 09/22/17 08:59 08/28/17 08:57 Insulin Aspart (NovoLOG) EVERY 6 HOURS SUBQ 08/23/17 18:00 09/22/17 11:29 08/28/17 05:33 Levetiracetam (Keppra) 500 mg BID GT 08/23/17 09:00 09/22/17 08:59 08/28/17 08:57 Metoclopramide HCl (Reglan) 5 mg Q6HR GT 08/23/17 00:00 09/22/17 00:00 08/28/17 05:30 Ondansetron HCl (Zofran) 4 mg Q6H PRN IVP Nausea & Vomiting 08/22/17 22:45 09/21/17 22:44 Piperacillin Sod/ Tazobactam Sod 3.375 gm/Dextrose 110 ml @ 27.5 mls/hr Q8HR IVPB 08/28/17 14:00 09/04/17 13:59 Polyethylene Glycol (Miralax) 17 gm DAILY PRN GT Constipation 08/22/17 22:30 09/21/17 22:29 Potassium Chloride 40 meq/ Sodium Chloride 570 ml @ 142.5 mls/ hr ONCE ONCE IVPB 08/28/17 11:00 08/28/17 14:59 Tramadol HCl (Ultram) 25 mg Q6HR PRN GT sever pain 08/22/17 22:30 08/29/17 22:29 Vancomycin HCl (Vanco rx to dose) 1 ea DAILY PRN MISC Per rx protocol 08/22/17 22:45 09/21/17 22:44 Vancomycin/Sodium Chloride 250 ml @ 166.667 mls/hr Q24H IVPB 08/28/17 18:00 09/02/17 17:59 Saira Lazcano MD Aug 28, 2017 12:14
--- NOTE | 2017-08-28 13:15 | Infectious Diseases Prog Note ---
Assessment/Plan Problems: (1) Osteomyelitis of ankle or foot, left, acute Assessment & Plan: on chronic, with worsening osteomyelitis due to poor circulation in the left leg, will continue wide spectrum antibiotics coverage with vancomycin and Zosyn , I had detailed discussion with the conservative palmira whitleyeres regarding the patient condition and the need to consider amputation since she is not responding well to antibiotics alone, and we went over the risk and the benefits of the amputation, and she understood that the patient will have bad outcome if she failes the current regimen of antibiotics she is on , which include septic shock with multiorgan failure and . she will think about it . discussed with other consultants (2) Heel ulcer Assessment & Plan: not improving with worsening osteomyelitis , she will need amputation for source control , will continue wide spectrum antibiotics pending conservative decision regarding amputation (3) Sepsis Assessment & Plan: due to the above , continue wide spectrum antibiotics pending culture and possible amputations (4) Fever Assessment & Plan: due to the above , improving with wide spectrum antibiotics (5) Diabetes Assessment & Plan: recommend tight glycemic control to keep blood glucose between 100-140 Subjective ROS Limited/Unobtainable: Yes Allergies: Coded Allergies: No Known Allergies (Verified , 01/27/10) Subjective she was lying in bed, unresponsive to verbal commands , seems comfortable, no fever or chills , had one bowel movement so far as per the nurse , still has mild draining from the left heel wound, with foul smell coming from the heel wound too and some gangrenous changes in the skin Objective Vital Signs Last 24 Hour Vital Signs Date Time Temp Pulse Resp B/P (MAP) Pulse Ox O2 Delivery O2 Flow Rate FiO2 08/28/17 08:57 160/82 08/28/17 08:54 97.0 83 20 160/82 99 97.0 08/28/17 07:37 78 08/28/17 04:00 98.6 82 20 143/77 99 98.6 82 08/28/17 04:00 75 08/28/17 00:00 88 08/28/17 00:00 98.0 82 18 142/79 100 98.0 08/27/17 23:28 78 20 Room Air 21 08/27/17 20:00 88 08/27/17 20:00 97.7 88 18 154/64 98 Room Air 97.7 4/24/18 19:07 88 20 100 Room Air 21 08/27/17 19:03 86 20 100 Room Air 21 08/27/17 19:01 Room Air 21 08/27/17 19:01 100 Room Air 21 08/27/17 16:00 79 08/27/17 16:00 98.6 87 18 155/73 99 Room Air 98.6 08/27/17 15:18 87 20 100 Room Air 21 08/27/17 15:09 84 20 98 Room Air 21 Height (Feet): 5 Height (Inches): 5.00 Weight (Pounds): 201 General Appearance: WD/WN, no acute distress HEENT: normocephalic, atraumatic, anicteric, mucous membranes moist, supple, no JVD, other - tongue is sticking out Respiratory/Chest: chest wall non-tender, lungs clear, no respiratory distress , no accessory muscle use, decreased breath sounds Cardiovascular: normal peripheral pulses, normal rate, regular rhythm, no gallop/murmur, no JVD Abdomen: normal bowel sounds, soft, non tender, no organomegaly, non distended , no mass, no scars Extremities: no cyanosis, no clubbing, other - left foot heel wound and lateral foot wound with dry eschar on the sole , foul smell from the left foot wounds Skin: no rash, no lesions, ulcers Neurologic/Psychiatric: unresponsiveness Microbiology Date/Time Source Procedure Growth Status 08/26/17 12:00 Stool Clostridium difficile Toxin Assay - Final Complete Laboratory Tests Test 08/28/17 08:17 Sodium Level 147 MMOL/L (136-145) H Potassium Level 3.2 MMOL/L (3.5-5.1) L Chloride Level 111 MMOL/L (98-107) H Carbon Dioxide Level 25 MMOL/L (21-32) Anion Gap 11 mmol/L (5-15) Blood Urea Nitrogen 23 mg/dL (7-18) H Creatinine 1.4 MG/DL (0.55-1.30) H Estimat Glomerular Filtration Rate mL/min (>60) Glucose Level 162 MG/DL (74-106) H Calcium Level 9.1 MG/DL (8.5-10.1) Random Vancomycin Level 21.1 ug/mL Current Medications Medications (Trade) Dose Ordered Sig/Nancy Route PRN Reason Start Time Stop Time Status Last Admin Dose Admin Acetaminophen (Tylenol) 650 mg Q4H PRN GT temp 100 mild pain 08/22/17 22:30 09/21/17 22:29 08/26/17 14:04 Clonidine HCl (Catapres Tab) 0.1 mg EVERY 6 HOURS PRN GT For High BP 160 syst 08/22/17 22:30 09/21/17 22:29 08/28/17 08:57 Dextrose (Dextrose 50%) 25 ml STAT PRN IV Hypoglycemia 08/23/17 09:15 09/22/17 09:14 Dextrose (Dextrose 50%) 50 ml STAT PRN IV Hypoglycemia 08/23/17 09:15 09/22/17 09:14 Enoxaparin Sodium (Lovenox) 90 mg DAILY@1800 SUBQ 08/26/17 18:00 09/25/17 17:59 08/27/17 18:18 Famotidine (Pepcid) 20 mg BID GT 08/23/17 09:00 09/22/17 08:59 08/28/17 08:57 Insulin Aspart (NovoLOG) EVERY 6 HOURS SUBQ 08/23/17 18:00 09/22/17 11:29 08/28/17 12:55 Levetiracetam (Keppra) 500 mg BID GT 08/23/17 09:00 09/22/17 08:59 08/28/17 08:57 Metoclopramide HCl (Reglan) 5 mg Q6HR GT 08/23/17 00:00 09/22/17 00:00 08/28/17 12:54 Ondansetron HCl (Zofran) 4 mg Q6H PRN IVP Nausea & Vomiting 08/22/17 22:45 09/21/17 22:44 Piperacillin Sod/ Tazobactam Sod 3.375 gm/Dextrose 110 ml @ 27.5 mls/hr Q8HR IVPB 08/28/17 14:00 09/04/17 13:59 Polyethylene Glycol (Miralax) 17 gm DAILY PRN GT Constipation 08/22/17 22:30 09/21/17 22:29 Potassium Chloride 40 meq/ Sodium Chloride 570 ml @ 142.5 mls/ hr ONCE ONCE IVPB 08/28/17 11:00 08/28/17 14:59 08/28/17 12:54 Tramadol HCl (Ultram) 25 mg Q6HR PRN GT sever pain 08/22/17 22:30 08/29/17 22:29 Vancomycin HCl (Vanco rx to dose) 1 ea DAILY PRN MISC Per rx protocol 08/22/17 22:45 09/21/17 22:44 Vancomycin/Sodium Chloride 250 ml @ 166.667 mls/hr Q24H IVPB 08/28/17 18:00 09/02/17 17:59 Ayala Forman M.D. Aug 28, 2017 13:15
[2017-08-28] MEDS ORDERED: Piperacillin/Tazobactam 3.375 GM in D5W 110 ML IVPB SCH (14:00)
[2017-08-28] MEDS ORDERED: Lidocaine 1% Plain 30 ml INJ PRN (14:45)
[2017-08-28] MEDS ORDERED: Heparin 2000 units/Ns 1000ml INJ PRN (14:45)
--- NOTE | 2017-08-28 14:47 | General Progress Note ---
Assessment/Plan Problem List: (1) UTI (urinary tract infection) (2) Sepsis ICD Codes: A41.9 - Sepsis, unspecified organism SNOMED: 87219349 (3) DVT (deep vein thrombosis) in ICD Codes: O22.30 - Deep phlebothrombosis in , unspecified trimester; I82.409 - Acute embolism and thrombosis of unspecified deep veins of unspecified lower extremity SNOMED: 30049435 (4) Diabetes ICD Codes: E11.9 - Type 2 diabetes mellitus without complications SNOMED: 28639691 (5) Anemia ICD Codes: D64.9 - Anemia, unspecified SNOMED: 511151045 Qualifiers: Qualified Codes: D64.9 - Anemia, unspecified (6) Hypernatremia ICD Codes: E87.0 - Hyperosmolality and hypernatremia SNOMED: 85729643 (7) Osteomyelitis of ankle or foot, left, acute ICD Codes: M86.172 - Other acute osteomyelitis, left ankle and foot SNOMED: 355482288 (8) Pneumonia involving left lung ICD Codes: J18.9 - Pneumonia, unspecified organism SNOMED: 579896963 Status: unchanged Status Narrative conservator does not agree with amputation PICC and 6 weeks antibiotics in ECF is the only other poor alternative Assessment/Plan K supplement DPOA refuses amputation will arrange PICC and DC planning Per ID recs Conservator left messages and so far can not arrange for bioethics BioEth[employer] consult resume Lovenox for DVT Per ID and Surg GT feeding per order transfuse as needed Subjective ROS Limited/Unobtainable: No Constitutional: Reports: malaise Allergies: Coded Allergies: No Known Allergies (Verified , 01/27/10) Objective Last 24 Hour Vital Signs Date Time Temp Pulse Resp B/P (MAP) Pulse Ox O2 Delivery O2 Flow Rate FiO2 08/28/17 14:26 97.0 08/28/17 14:25 140/50 08/28/17 13:27 97.0 08/28/17 13:21 97.0 80 20 165/80 99 97.0 08/28/17 11:53 68 08/28/17 08:57 160/82 08/28/17 08:54 97.0 83 20 160/82 99 97.0 08/28/17 07:37 78 08/28/17 04:00 98.6 82 20 143/77 99 98.6 82 08/28/17 04:00 75 08/28/17 00:00 88 08/28/17 00:00 98.0 82 18 142/79 100 98.0 08/27/17 23:28 78 20 Room Air 21 08/27/17 20:00 88 08/27/17 20:00 97.7 88 18 154/64 98 Room Air 97.7 08/27/17 19:07 88 20 100 Room Air 21 08/27/17 19:03 86 20 100 Room Air 21 08/27/17 19:01 Room Air 21 08/27/17 19:01 100 Room Air 21 08/27/17 16:00 79 08/27/17 16:00 98.6 87 18 155/73 99 Room Air 98.6 08/27/17 15:18 87 20 100 Room Air 21 08/27/17 15:09 84 20 98 Room Air 21 Intake and Output 08/27/17 08/28/17 19:00 07:00 Intake Total 420 ml Output Total 650 ml 1200 ml Balance -650 ml -780 ml Tube Feeding 360 ml Other 60 ml Output Urine Total 650 ml 1200 ml Laboratory Tests 08/28/17 08:17: Sodium Level 147H, Potassium Level 3.2L, Chloride Level 111H, Carbon Dioxide Level 25, Anion Gap 11, Blood Urea Nitrogen 23H, Creatinine 1.4H, Estimat Glomerular Filtration Rate , Glucose Level 162H, Calcium Level 9.1, Random Vancomycin Level 21.1 Height (Feet): 5 Height (Inches): 5.00 Weight (Pounds): 201 General Appearance: no apparent distress Neck: limited range of motion Cardiovascular: normal rate Respiratory/Chest: decreased breath sounds Abdomen: soft GEORGE MONDRAGON Aug 28, 2017 14:47
[2017-08-28] MEDS ORDERED: Acetaminophen 650mg/20.3ml GT PRN (15:00)
[2017-08-28] MEDS ORDERED: Enoxaparin Sodium 300mg/3ml vial SUBQ SCH (18:00)
[2017-08-28] MEDS ORDERED: traMADol 50mg tab GT PRN (18:00)
[2017-08-28] MEDS ORDERED: Vancomycin 750mg/NS 250ml IVPB SCH (18:00)
[2017-08-28] MEDS: Dyna-Hex 2% Top Sol 2oz TOPIC SCH (20:00)
[2017-08-28] MEDS: Vancomycin 750mg/NS 250ml 250 ML IVPB SCH (20:47)
[2017-08-29] VITALS (7 sets, daily range): BP systolic 151–187; BP diastolic 64–99
[2017-08-29] MEDS: Metoclopramide 10mg/10ml Liq GT SCH ×5 (00:56→22:59)
[2017-08-29] MEDS: NovoLOG Insulin Flexpen SUBQ SCH ×5 (00:58→23:01)
[2017-08-29] MEDS: Piperacillin/Tazobactam 3.375 GM in D5W 110 ML IVPB SCH ×3 (05:36→22:05)
[2017-08-29 07:18] LABS: BASOPHILS % (AUTO) 0.5 % (0.0-2.0); EOSINOPHILS % (AUTO) 3.1 % (0.0-3.0); HEMATOCRIT 32.3 % (37.0-47.0); HEMOGLOBIN 10.8 G/DL (12.0-16.0); LYMPHOCYTES % (AUTO) 30.2 % (20.0-45.0); MEAN CORPUSCULAR VOLUME 96 FL (80-99); MONOCYTES % (AUTO) 6.4 % (1.0-10.0); NEUTROPHILS % (AUTO) 59.8 % (45.0-75.0); PLATELET COUNT 244 K/UL (150-450); RED BLOOD COUNT 3.38 M/UL (4.20-5.40); RED CELL DISTRIBUTION WIDTH 14.5 % (11.6-14.8); WHITE BLOOD COUNT 6.4 K/UL (4.8-10.8)
[2017-08-29 08:02] LABS: ALANINE AMINOTRANSFERASE 18 U/L (12-78); ALBUMIN 2.7 G/DL (3.4-5.0); ALBUMIN/GLOBULIN RATIO 0.4 (1.0-2.7); ALKALINE PHOSPHATASE 101 U/L (46-116); ANION GAP 14 mmol/L (5-15); ASPARTATE AMINO TRANSFERASE 26 U/L (15-37); BILIRUBIN,TOTAL 0.3 MG/DL (0.2-1.0); BLOOD UREA NITROGEN 22 mg/dL (7-18); CALCIUM 9.4 MG/DL (8.5-10.1); CARBON DIOXIDE 22 MMOL/L (21-32); CHLORIDE 110 MMOL/L (98-107); CREATININE 1.3 MG/DL (0.55-1.30); PHOSPHORUS 3.1 MG/DL (2.5-4.9); POTASSIUM 3.8 MMOL/L (3.5-5.1); SODIUM 146 MMOL/L (136-145)
--- NOTE | 2017-08-29 14:44 | General Progress Note ---
Assessment/Plan Problem List: (1) UTI (urinary tract infection) (2) Sepsis ICD Codes: A41.9 - Sepsis, unspecified organism SNOMED: 85885524 (3) DVT (deep vein thrombosis) in ICD Codes: O22.30 - Deep phlebothrombosis in , unspecified trimester; I82.409 - Acute embolism and thrombosis of unspecified deep veins of unspecified lower extremity SNOMED: 45119015 (4) Diabetes ICD Codes: E11.9 - Type 2 diabetes mellitus without complications SNOMED: 32420398 (5) Anemia ICD Codes: D64.9 - Anemia, unspecified SNOMED: 800283841 Qualifiers: Qualified Codes: D64.9 - Anemia, unspecified (6) Hypernatremia ICD Codes: E87.0 - Hyperosmolality and hypernatremia SNOMED: 60626367 (7) Osteomyelitis of ankle or foot, left, acute ICD Codes: M86.172 - Other acute osteomyelitis, left ankle and foot SNOMED: 750287756 (8) Pneumonia involving left lung ICD Codes: J18.9 - Pneumonia, unspecified organism SNOMED: 474130033 Status: unchanged Status Narrative DC with ID recs as conservator refuses amputation Assessment/Plan DC on antibiotics per ID recs via PICC (1) Osteomyelitis of ankle or foot, left, acute Assessment & Plan: on chronic, with worsening osteomyelitis due to poor circulation in the left leg, will continue wide spectrum antibiotics coverage with vancomycin and Zosyn , I had detailed discussion with the conservative palmira whitleyeres regarding the patient condition and the need to consider amputation since she is not responding well to antibiotics alone, and we went over the risk and the benefits of the amputation, and she understood that the patient will have bad outcome if she failes the current regimen of antibiotics she is on , which include septic shock with multiorgan failure and . she will think about it . discussed with other consultants (2) Heel ulcer Assessment & Plan: not improving with worsening osteomyelitis , she will need amputation for source control , will continue wide spectrum antibiotics pending conservative decision regarding amputation DPOA refuses amputation will arrange PICC and DC planning Per ID recs Conservator left messages and so far can not arrange for bioethics [employer] consult resume Lovenox for DVT Per ID and Surg GT feeding per order transfuse as needed Subjective ROS Limited/Unobtainable: No Constitutional: Reports: malaise Allergies: Coded Allergies: No Known Allergies (Verified , 01/27/10) Objective Last 24 Hour Vital Signs Date Time Temp Pulse Resp B/P (MAP) Pulse Ox O2 Delivery O2 Flow Rate FiO2 08/29/17 12:00 98.0 64 18 160/64 100 98.0 08/29/17 08:22 98.4 78 18 151/81 100 98.4 08/29/17 07:02 155/99 08/29/17 04:00 98.7 72 20 164/72 100 98.7 08/29/17 00:00 99.0 89 20 156/88 99 99.0 08/28/17 20:00 99.3 73 19 149/78 100 99.3 08/28/17 16:00 98.2 84 19 142/64 100 98.2 Intake and Output 08/28/17 08/29/17 19:00 07:00 Intake Total 580 ml Output Total 600 ml 1000 ml Balance -20 ml -1000 ml Free Water 250 ml Tube Feeding 330 ml Output Urine Total 600 ml 1000 ml # Bowel Movements 1 Current Medications Medications (Trade) Dose Ordered Sig/Nancy Route PRN Reason Start Time Stop Time Status Last Admin Dose Admin Acetaminophen (Tylenol) 650 mg Q4H PRN GT temp > 100 / mild pain 08/28/17 15:00 09/27/17 14:59 Chlorhexidine Gluconate (Jossy-Hex 2%) 1 applic DAILY@2000 TOPIC 08/28/17 20:00 09/27/17 19:59 Clonidine HCl (Catapres Tab) 0.1 mg Q6H PRN GT For High BP 160 syst 08/28/17 15:00 09/27/17 14:59 Dextrose (Dextrose 50%) 25 ml STAT PRN IV Hypoglycemia 08/28/17 15:00 09/27/17 14:59 Dextrose (Dextrose 50%) 50 ml STAT PRN IV Hypoglycemia 08/28/17 15:00 09/27/17 14:59 Famotidine (Pepcid) 20 mg BID GT 08/28/17 18:00 09/22/17 08:59 08/29/17 08:54 Heparin Sodium/ Sodium Chloride (Heparin 2000 units/Ns 1000ml premix) 2,000 unit ONCE PRN INJ PICC PLACEMENT 08/28/17 14:45 08/29/17 23:59 Insulin Aspart (NovoLOG) EVERY 6 HOURS SUBQ 08/28/17 18:00 09/22/17 11:29 08/29/17 12:45 Levetiracetam (Keppra) 500 mg Q12HR GT 08/29/17 21:00 09/28/17 20:59 Lidocaine HCl (Xylocaine 1% 30ml) 30 ml ONCE PRN INJ PICC PLACEMENT 08/28/17 14:45 08/29/17 23:59 Metoclopramide HCl (Reglan) 5 mg Q6HR GT 08/28/17 18:00 09/22/17 00:00 08/29/17 12:41 Ondansetron HCl (Zofran) 4 mg Q6H PRN IVP Nausea & Vomiting 08/28/17 15:00 09/21/17 14:59 Piperacillin Sod/ Tazobactam Sod 3.375 gm/Dextrose 110 ml @ 27.5 mls/hr Q8HR IVPB 08/28/17 22:00 09/04/17 13:59 08/29/17 05:36 Polyethylene Glycol (Miralax) 17 gm DAILYPRN PRN GT Constipation 08/29/17 15:00 09/28/17 14:59 Tramadol HCl (Ultram) 25 mg Q6H PRN GT Severe Pain (Pain Scale 7-10) 08/28/17 18:00 09/04/17 17:59 Vancomycin HCl (Vanco rx to dose) 1 ea DAILY PRN MISC Per rx protocol 08/28/17 15:00 09/27/17 14:59 Vancomycin/Sodium Chloride 250 ml @ 166.667 mls/hr Q24H IVPB 08/28/17 20:30 09/02/17 23:59 08/28/17 20:47 Laboratory Tests 08/29/17 06:00: White Blood Count 6.4, Red Blood Count 3.38L, Hemoglobin 10.8L, Hematocrit 32.3L , Mean Corpuscular Volume 96, Mean Corpuscular Hemoglobin 32.0H, Mean Corpuscular Hemoglobin Concent 33.4, Red Cell Distribution Width 14.5, Platelet Count 244, Mean Platelet Volume 9.3, Neutrophils (%) (Auto) 59.8, Lymphocytes (% ) (Auto) 30.2, Monocytes (%) (Auto) 6.4, Eosinophils (%) (Auto) 3.1H, Basophils (%) (Auto) 0.5, Prothrombin Time 10.5, Prothromb Time International Ratio 1.0, Activated Partial Thromboplast Time 27, Sodium Level 146H, Potassium Level 3.8, Chloride Level 110H, Carbon Dioxide Level 22, Anion Gap 14, Blood Urea Nitrogen 22H, Creatinine 1.3, Estimat Glomerular Filtration Rate , Glucose Level 151H, Calcium Level 9.4, Phosphorus Level 3.1, Magnesium Level 2.0, Total Bilirubin 0.3, Aspartate Amino Transf (AST/SGOT) 26, Alanine Aminotransferase (ALT/SGPT) 18, Alkaline Phosphatase 101, Pro-B-Type Natriuretic Peptide 1729H, Total Protein 10.0H, Albumin 2.7L, Globulin 7.3, Albumin/Globulin Ratio 0.4L Height (Feet): 5 Height (Inches): 5.00 Weight (Pounds): 198 General Appearance: no apparent distress Cardiovascular: tachycardia Respiratory/Chest: decreased breath sounds Abdomen: soft Extremities: other - no change GEORGE MONDRAGON Aug 29, 2017 14:43
[2017-08-29] MEDS ORDERED: ZOSYN 3.373.375 GM/1 IVPB (14:49)
--- NOTE | 2017-08-29 14:51 | Discharge Instructions ---
Discharge Instructions Discharge Instructions Follow up with: follow up with Dr Yung Arias at [facility] Diet: other - GT feeding Special Instructions routine care PICC line- Routin skin care- Wound care for heel ulcer- aspiration percaution Dr Yung Arias to assume PMD For Congestive Heart Failure Reminder Report to your physician any weight gain of 5 pounds or more in one week. GEORGE MONDRAGON Aug 29, 2017 14:51
--- NOTE | 2017-08-29 14:56 | Diagnostic Imaging Report ---
Indications: Needs long-term IV access Technique: Ultrasound confirms patent compressible basilic and cephalic vein. Total sterile technique, including sterile probe cover and sterile gel, hat, mask,, sterile gown, large sterile drape, and preparation with 2% chlorhexidine utilized. Local anesthesia with 1% lidocaine. Initial attempts made at accessing the right basilic vein, unsuccessful as guidewire passed outside the vein. Attention then turned to the cephalic vein. Under real-time ultrasound guidance, puncture right cephalic vein using 21-gauge needle, documented and archived, passage 0.018 guidewire under direct fluoroscopy, which was used to determine appropriate catheter length, exchange for 5 Dominican peel-away sheath. 5 Dominican Bard dual-lumen power PICC cut to 41 cm. It was inserted through the peel-away sheath. Peel-away sheath and guidewire removed. Catheter fixed to the skin. Both catheter ports aspirated and flushed. Patient tolerated procedure well, without immediate complication. Digital radiograph documents satisfactory catheter tip position, at the cavoatrial junction. Total fluoroscopy time 5.9 minutes. Total dose area product 108 dGycm2 Impression: Successful placement of right arm PICC under sonographic and fluoroscopic guidance, as described above.
[2017-08-29] MEDS ORDERED: Miralax 17gm pkt GT PRN (15:00)
--- NOTE | 2017-08-29 15:15 | Pulmonology Progress Note ---
Assessment/Plan Problems: (1) Sepsis (2) Osteomyelitis of ankle or foot, left, acute (3) G tube feedings (4) Functional quadriplegia (5) Right hemiparesis (6) Diabetes Assessment/Plan looks comfortabelcontinue abx check labs tolerating feeding check cultures dvt prophylaxis palliative care is a viable option in this case. Subjective ROS Limited/Unobtainable: No Constitutional: Reports: no symptoms HEENT: Repors: no symptoms Respiratory: Reports: no symptoms Allergies: Coded Allergies: No Known Allergies (Verified , 01/27/10) Objective Last 24 Hour Vital Signs Date Time Temp Pulse Resp B/P (MAP) Pulse Ox O2 Delivery O2 Flow Rate FiO2 08/29/17 12:00 98.0 64 18 160/64 100 98.0 08/29/17 08:22 98.4 78 18 151/81 100 98.4 08/29/17 07:02 155/99 08/29/17 04:00 98.7 72 20 164/72 100 98.7 08/29/17 00:00 99.0 89 20 156/88 99 99.0 08/28/17 20:00 99.3 73 19 149/78 100 99.3 08/28/17 16:00 98.2 84 19 142/64 100 98.2 Intake and Output 08/28/17 08/29/17 19:00 07:00 Intake Total 580 ml Output Total 600 ml 1000 ml Balance -20 ml -1000 ml Free Water 250 ml Tube Feeding 330 ml Output Urine Total 600 ml 1000 ml # Bowel Movements 1 Objective General Appearance: WD/WN, no acute distress HEENT: atraumatic Respiratory/Chest: normal breath sounds Abdomen: normal bowel sounds, soft, non tender Extremities: no cyanosis, clubbing, edema Skin: clean dressing on left heal Laboratory Tests 08/29/17 06:00: White Blood Count 6.4, Red Blood Count 3.38L, Hemoglobin 10.8L, Hematocrit 32.3L , Mean Corpuscular Volume 96, Mean Corpuscular Hemoglobin 32.0H, Mean Corpuscular Hemoglobin Concent 33.4, Red Cell Distribution Width 14.5, Platelet Count 244, Mean Platelet Volume 9.3, Neutrophils (%) (Auto) 59.8, Lymphocytes (% ) (Auto) 30.2, Monocytes (%) (Auto) 6.4, Eosinophils (%) (Auto) 3.1H, Basophils (%) (Auto) 0.5, Prothrombin Time 10.5, Prothromb Time International Ratio 1.0, Activated Partial Thromboplast Time 27, Sodium Level 146H, Potassium Level 3.8, Chloride Level 110H, Carbon Dioxide Level 22, Anion Gap 14, Blood Urea Nitrogen 22H, Creatinine 1.3, Estimat Glomerular Filtration Rate , Glucose Level 151H, Calcium Level 9.4, Phosphorus Level 3.1, Magnesium Level 2.0, Total Bilirubin 0.3, Aspartate Amino Transf (AST/SGOT) 26, Alanine Aminotransferase (ALT/SGPT) 18, Alkaline Phosphatase 101, Pro-B-Type Natriuretic Peptide 1729H, Total Protein 10.0H, Albumin 2.7L, Globulin 7.3, Albumin/Globulin Ratio 0.4L Current Medications Medications (Trade) Dose Ordered Sig/Nancy Route PRN Reason Start Time Stop Time Status Last Admin Dose Admin Acetaminophen (Tylenol) 650 mg Q4H PRN GT temp > 100 / mild pain 08/28/17 15:00 09/27/17 14:59 Amlodipine Besylate (Norvasc) 5 mg DAILY GT 08/29/17 14:45 09/28/17 14:44 UNV Chlorhexidine Gluconate (Jossy-Hex 2%) 1 applic DAILY@2000 TOPIC 08/28/17 20:00 09/27/17 19:59 Clonidine HCl (Catapres Tab) 0.1 mg Q6H PRN GT For High BP 160 syst 08/28/17 15:00 09/27/17 14:59 Dextrose (Dextrose 50%) 25 ml STAT PRN IV Hypoglycemia 08/28/17 15:00 09/27/17 14:59 Dextrose (Dextrose 50%) 50 ml STAT PRN IV Hypoglycemia 08/28/17 15:00 09/27/17 14:59 Famotidine (Pepcid) 20 mg BID GT 08/28/17 18:00 09/22/17 08:59 08/29/17 08:54 Heparin Sodium/ Sodium Chloride (Heparin 2000 units/Ns 1000ml premix) 2,000 unit ONCE PRN INJ PICC PLACEMENT 08/28/17 14:45 08/29/17 23:59 Insulin Aspart (NovoLOG) EVERY 6 HOURS SUBQ 08/28/17 18:00 5/20/18 11:29 08/29/17 12:45 Levetiracetam (Keppra) 500 mg Q12HR GT 08/29/17 21:00 09/28/17 20:59 Lidocaine HCl (Xylocaine 1% 30ml) 30 ml ONCE PRN INJ PICC PLACEMENT 08/28/17 14:45 08/29/17 23:59 Metoclopramide HCl (Reglan) 5 mg Q6HR GT 08/28/17 18:00 09/22/17 00:00 08/29/17 12:41 Ondansetron HCl (Zofran) 4 mg Q6H PRN IVP Nausea & Vomiting 08/28/17 15:00 09/21/17 14:59 Piperacillin Sod/ Tazobactam Sod 3.375 gm/Dextrose 110 ml @ 27.5 mls/hr Q8HR IVPB 08/28/17 22:00 09/04/17 13:59 08/29/17 05:36 Polyethylene Glycol (Miralax) 17 gm DAILYPRN PRN GT Constipation 08/29/17 15:00 09/28/17 14:59 Tramadol HCl (Ultram) 25 mg Q6H PRN GT Severe Pain (Pain Scale 7-10) 08/28/17 18:00 09/04/17 17:59 Vancomycin HCl (Vanco rx to dose) 1 ea DAILY PRN MISC Per rx protocol 08/28/17 15:00 09/27/17 14:59 Vancomycin/Sodium Chloride 250 ml @ 166.667 mls/hr Q24H IVPB 08/28/17 20:30 09/02/17 23:59 08/28/17 20:47 Saira Lazcano MD Aug 29, 2017 15:15
--- NOTE | 2017-08-29 18:55 | Infectious Diseases Prog Note ---
Assessment/Plan Problems: (1) Osteomyelitis of ankle or foot, left, acute Assessment & Plan: on chronic, with worsening osteomyelitis , already on wide spectrum antibiotics coverage with vancomycin and Zosyn , till conservative makes up her mind regarding amputation . I had another detailed discussion with the conservative today regarding the patient condition and the need to consider amputation since she is not responding well to antibiotics alone, and we went over the risk and the benefits of the amputation again and she understood that the patient will have bad outcome if she fails the current regimen of antibiotics again she is on now , including septic shock with multiorgan failure and . she requested her zosyn intervals to be decreased to twice daily instead of three times a day which she is on now and I didn't agree with that since it is below the standard dosing for this antibiotics and will not achieve adequate level to kill the bacteria and will lead to failure . she understood that , and I recommended hospic care and comfort measures if she is planing to stop her antibiotics , or decrease the dose , and she will think about it . discussed with other consultants (2) Heel ulcer Assessment & Plan: not improving with worsening osteomyelitis , she will need amputation for source control , will continue wide spectrum antibiotics pending conservative decision regarding amputation (3) Sepsis Assessment & Plan: due to the above , continue wide spectrum antibiotics pending culture and possible amputations (4) Fever Assessment & Plan: due to the above , improving with wide spectrum antibiotics (5) Diabetes Assessment & Plan: recommend tight glycemic control to keep blood glucose between 100-140 Subjective ROS Limited/Unobtainable: Yes Allergies: Coded Allergies: No Known Allergies (Verified , 01/27/10) Subjective she was comfortable, lying in bed, unresponsive to verbal commands , no fever or chills , has mild draining from the left heel wound, with foul smell coming from the heel wound too and some gangrenous changes in the skin with an eschar . Objective Vital Signs Last 24 Hour Vital Signs Date Time Temp Pulse Resp B/P (MAP) Pulse Ox O2 Delivery O2 Flow Rate FiO2 08/29/17 16:08 81 160/85 08/29/17 15:58 98.4 81 18 160/85 100 98.4 08/29/17 12:00 98.0 64 18 160/64 100 98.0 08/29/17 08:22 98.4 78 18 151/81 100 98.4 08/29/17 07:02 155/99 08/29/17 04:00 98.7 72 20 164/72 100 98.7 08/29/17 00:00 99.0 89 20 156/88 99 99.0 08/28/17 20:00 99.3 73 19 149/78 100 99.3 Height (Feet): 5 Height (Inches): 5.00 Weight (Pounds): 198 General Appearance: WD/WN, no acute distress HEENT: normocephalic, atraumatic, anicteric, mucous membranes moist, PERRL Respiratory/Chest: normal breath sounds, no respiratory distress, no accessory muscle use, decreased breath sounds, crackles/rales Cardiovascular: normal rate, regular rhythm, no gallop/murmur, no JVD Abdomen: normal bowel sounds, soft, non tender, no organomegaly, non distended , no mass, no scars Extremities: other - left foot heel wound and lateral foot wound with mild drainage and foul smell Skin: no rash, no lesions Neurologic/Psychiatric: unresponsiveness Laboratory Tests Test 08/29/17 06:00 White Blood Count 6.4 K/UL (4.8-10.8) Red Blood Count 3.38 M/UL (4.20-5.40) L Hemoglobin 10.8 G/DL (12.0-16.0) L Hematocrit 32.3 % (37.0-47.0) L Mean Corpuscular Volume 96 FL (80-99) Mean Corpuscular Hemoglobin 32.0 PG (27.0-31.0) H Mean Corpuscular Hemoglobin Concent 33.4 G/DL (32.0-36.0) Red Cell Distribution Width 14.5 % (11.6-14.8) Platelet Count 244 K/UL (150-450) Mean Platelet Volume 9.3 FL (6.5-10.1) Neutrophils (%) (Auto) 59.8 % (45.0-75.0) Lymphocytes (%) (Auto) 30.2 % (20.0-45.0) Monocytes (%) (Auto) 6.4 % (1.0-10.0) Eosinophils (%) (Auto) 3.1 % (0.0-3.0) H Basophils (%) (Auto) 0.5 % (0.0-2.0) Prothrombin Time 10.5 SEC (9.30-11.50) Prothromb Time International Ratio 1.0 (0.9-1.1) Activated Partial Thromboplast Time 27 SEC (23-33) Sodium Level 146 MMOL/L (136-145) H Potassium Level 3.8 MMOL/L (3.5-5.1) Chloride Level 110 MMOL/L (98-107) H Carbon Dioxide Level 22 MMOL/L (21-32) Anion Gap 14 mmol/L (5-15) Blood Urea Nitrogen 22 mg/dL (7-18) H Creatinine 1.3 MG/DL (0.55-1.30) Estimat Glomerular Filtration Rate mL/min (>60) Glucose Level 151 MG/DL (74-106) H Calcium Level 9.4 MG/DL (8.5-10.1) Phosphorus Level 3.1 MG/DL (2.5-4.9) Magnesium Level 2.0 MG/DL (1.8-2.4) Total Bilirubin 0.3 MG/DL (0.2-1.0) Aspartate Amino Transf (AST/SGOT) 26 U/L (15-37) Alanine Aminotransferase (ALT/SGPT) 18 U/L (12-78) Alkaline Phosphatase 101 U/L (46-116) Pro-B-Type Natriuretic Peptide 1729 pg/mL (0-125) H Total Protein 10.0 G/DL (6.4-8.2) H Albumin 2.7 G/DL (3.4-5.0) L Globulin 7.3 g/dL Albumin/Globulin Ratio 0.4 (1.0-2.7) L Current Medications Medications (Trade) Dose Ordered Sig/Nancy Route PRN Reason Start Time Stop Time Status Last Admin Dose Admin Acetaminophen (Tylenol) 650 mg Q4H PRN GT temp > 100 / mild pain 08/28/17 15:00 09/27/17 14:59 Amlodipine Besylate (Norvasc) 5 mg DAILY GT 08/29/17 14:45 09/28/17 14:44 08/29/17 16:08 Chlorhexidine Gluconate (Jossy-Hex 2%) 1 applic DAILY@1999 TOPIC 08/28/17 20:00 09/27/17 19:59 Clonidine HCl (Catapres Tab) 0.1 mg Q6H PRN GT For High BP 160 syst 08/28/17 15:00 09/27/17 14:59 Dextrose (Dextrose 50%) 25 ml STAT PRN IV Hypoglycemia 08/28/17 15:00 09/27/17 14:59 Dextrose (Dextrose 50%) 50 ml STAT PRN IV Hypoglycemia 08/28/17 15:00 09/27/17 14:59 Famotidine (Pepcid) 20 mg BID GT 08/28/17 18:00 09/22/17 08:59 08/29/17 17:00 Heparin Sodium/ Sodium Chloride (Heparin 2000 units/Ns 1000ml premix) 2,000 unit ONCE PRN INJ PICC PLACEMENT 08/28/17 14:45 08/29/17 23:59 Insulin Aspart (NovoLOG) EVERY 6 HOURS SUBQ 08/28/17 18:00 09/22/17 11:29 08/29/17 17:01 Levetiracetam (Keppra) 500 mg Q12HR GT 08/29/17 21:00 09/28/17 20:59 Lidocaine HCl (Xylocaine 1% 30ml) 30 ml ONCE PRN INJ PICC PLACEMENT 08/28/17 14:45 08/29/17 23:59 Metoclopramide HCl (Reglan) 5 mg Q6HR GT 08/28/17 18:00 09/22/17 00:00 08/29/17 17:00 Ondansetron HCl (Zofran) 4 mg Q6H PRN IVP Nausea & Vomiting 08/28/17 15:00 09/21/17 14:59 Piperacillin Sod/ Tazobactam Sod 3.375 gm/Dextrose 110 ml @ 27.5 mls/hr Q8HR IVPB 08/28/17 22:00 09/04/17 13:59 08/29/17 16:08 Polyethylene Glycol (Miralax) 17 gm DAILYPRN PRN GT Constipation 08/29/17 15:00 09/28/17 14:59 Tramadol HCl (Ultram) 25 mg Q6H PRN GT Severe Pain (Pain Scale 7-10) 08/28/17 18:00 09/04/17 17:59 Vancomycin HCl (Vanco rx to dose) 1 ea DAILY PRN MISC Per rx protocol 08/28/17 15:00 09/27/17 14:59 Vancomycin/Sodium Chloride 250 ml @ 166.667 mls/hr Q24H IVPB 08/28/17 20:30 09/02/17 23:59 08/28/17 20:47 Ayala Forman M.D. Aug 29, 2017 18:55
[2017-08-29] MEDS: levETIRAcetam 500mg/5ml Liquid GT SCH (20:15)
[2017-08-29] MEDS: Dyna-Hex 2% Top Sol 2oz TOPIC SCH (20:15)
[2017-08-29] MEDS: Vancomycin 750mg/NS 250ml 250 ML IVPB SCH (20:29)
[2017-08-30 00:34] VITALS: BP 99/78
[2017-08-30 04:50] VITALS: BP 105/82
[2017-08-30] MEDS: Piperacillin/Tazobactam 3.375 GM in D5W 110 ML IVPB SCH ×3 (05:01→21:41)
[2017-08-30] MEDS: Metoclopramide 10mg/10ml Liq GT SCH ×4 (05:01→23:09)
[2017-08-30] MEDS: NovoLOG Insulin Flexpen SUBQ SCH ×4 (05:35→23:11)
[2017-08-30 08:00] VITALS: BP 150/84
[2017-08-30] MEDS: levETIRAcetam 500mg/5ml Liquid GT SCH ×2 (08:02→20:06)
[2017-08-30 12:00] VITALS: BP 154/78
--- NOTE | 2017-08-30 13:51 | Infectious Diseases Prog Note ---
Assessment/Plan Problems: (1) Osteomyelitis of ankle or foot, left, acute Assessment & Plan: on chronic, with worsening osteomyelitis , due to pseudomonas aeruginosa and proteus mirabilis , already on wide spectrum antibiotics coverage with vancomycin and Zosyn , pending conservative decision regarding amputation . I had another detailed discussion with the conservative yesterday regarding the patient condition and the need to consider amputation since she is not responding well to antibiotics alone, and we went over the risk and the benefits of the amputation again and she understood that the patient will have bad outcome if she fails the current regimen of antibiotics again she is on now , including septic shock with multiorgan failure and . she requested her zosyn intervals to be decreased to twice daily instead of three times a day which she is on now and I didn't agree with that since it is below the standard dosing for this antibiotics and will not achieve adequate level to kill the bacteria and will lead to failure . she understood that , and I recommended hospic care and comfort measures if she is planing to stop her antibiotics , or decrease the dose , and she will think about it . discussed with other consultants (2) Heel ulcer Assessment & Plan: not improving with worsening osteomyelitis , she will need amputation for source control , will continue wide spectrum antibiotics pending conservative decision regarding amputation (3) Sepsis Assessment & Plan: due to the above , with negative blood culture , continue wide spectrum antibiotics pending amputations (4) Fever Assessment & Plan: due to the above , improving with wide spectrum antibiotics (5) Diabetes Assessment & Plan: recommend tight glycemic control to keep blood glucose between 100-140 Subjective ROS Limited/Unobtainable: Yes Allergies: Coded Allergies: No Known Allergies (Verified , 01/27/10) Subjective she was awake, comfortable, lying in bed, unresponsive to verbal commands , no fever or chills , has minimal draining from the left heel wound, with foul smell coming from the heel wound too and some gangrenous changes in the skin with an eschar . Objective Vital Signs Last 24 Hour Vital Signs Date Time Temp Pulse Resp B/P (MAP) Pulse Ox O2 Delivery O2 Flow Rate FiO2 08/30/17 12:00 97.7 88 20 154/78 98 Room Air 97.7 08/30/17 08:38 74 150/84 08/30/17 08:00 98.1 74 20 150/84 95 98.1 08/30/17 04:50 98.1 97 20 105/82 91 Room Air 98.1 08/30/17 00:34 98.3 101 18 99/78 91 Room Air 98.3 08/29/17 20:28 98.8 95 20 158/85 96 Room Air 98.8 08/29/17 16:08 81 160/85 08/29/17 15:58 98.4 81 18 160/85 100 98.4 Height (Feet): 5 Height (Inches): 5.00 Weight (Pounds): 198 General Appearance: WD/WN, no acute distress HEENT: normocephalic, atraumatic, anicteric, mucous membranes moist Respiratory/Chest: chest wall non-tender, lungs clear, normal breath sounds, no respiratory distress, no accessory muscle use Cardiovascular: normal rate, regular rhythm, no gallop/murmur, no JVD Abdomen: normal bowel sounds, soft, non tender, no organomegaly, non distended , no mass, no scars Extremities: no cyanosis, no clubbing Skin: no rash, no lesions, ulcers - left heel and lateral foot wounds with granulation and gangrenous changes on the sole , with foul smell Neurologic/Psychiatric: alert, unresponsiveness Lymphatic: no neck adenopathy, no groin adenopathy Current Medications Medications (Trade) Dose Ordered Sig/Nancy Route PRN Reason Start Time Stop Time Status Last Admin Dose Admin Acetaminophen (Tylenol) 650 mg Q4H PRN GT temp > 100 / mild pain 08/28/17 15:00 09/27/17 14:59 Amlodipine Besylate (Norvasc) 5 mg DAILY GT 08/29/17 14:45 09/28/17 14:44 08/30/17 08:38 Chlorhexidine Gluconate (Jossy-Hex 2%) 1 applic DAILY@1999 TOPIC 08/28/17 20:00 09/27/17 19:59 08/29/17 20:15 Clonidine HCl (Catapres Tab) 0.1 mg Q6H PRN GT For High BP 160 syst 08/28/17 15:00 09/27/17 14:59 Dextrose (Dextrose 50%) 25 ml STAT PRN IV Hypoglycemia 08/28/17 15:00 09/27/17 14:59 Dextrose (Dextrose 50%) 50 ml STAT PRN IV Hypoglycemia 08/28/17 15:00 09/27/17 14:59 Famotidine (Pepcid) 20 mg BID GT 08/28/17 18:00 09/22/17 08:59 08/30/17 08:02 Insulin Aspart (NovoLOG) EVERY 6 HOURS SUBQ 08/28/17 18:00 09/22/17 11:29 08/30/17 11:54 Levetiracetam (Keppra) 500 mg Q12HR GT 08/29/17 21:00 09/28/17 20:59 08/30/17 08:02 Metoclopramide HCl (Reglan) 5 mg Q6HR GT 08/28/17 18:00 09/22/17 00:00 08/30/17 11:53 Ondansetron HCl (Zofran) 4 mg Q6H PRN IVP Nausea & Vomiting 08/28/17 15:00 09/21/17 14:59 Piperacillin Sod/ Tazobactam Sod 3.375 gm/Dextrose 110 ml @ 27.5 mls/hr Q8HR IVPB 08/28/17 22:00 09/04/17 13:59 08/30/17 05:01 Polyethylene Glycol (Miralax) 17 gm DAILYPRN PRN GT Constipation 08/29/17 15:00 09/28/17 14:59 Tramadol HCl (Ultram) 25 mg Q6H PRN GT Severe Pain (Pain Scale 7-10) 08/28/17 18:00 09/04/17 17:59 Vancomycin HCl (Vanco rx to dose) 1 ea DAILY PRN MISC Per rx protocol 08/28/17 15:00 09/27/17 14:59 Vancomycin/Sodium Chloride 250 ml @ 166.667 mls/hr Q24H IVPB 08/28/17 20:30 09/02/17 23:59 08/29/17 20:29 Ayala Forman M.D. Aug 30, 2017 13:51
--- NOTE | 2017-08-30 14:57 | Pulmonology Progress Note ---
Assessment/Plan Problems: (1) Sepsis (2) Osteomyelitis of ankle or foot, left, acute (3) G tube feedings (4) Functional quadriplegia (5) Right hemiparesis (6) Diabetes Assessment/Plan looks comfortable continue abx check labs tolerating feeding check cultures dvt prophylaxis palliative care is a viable option in this case. dc planning, Niece didn't agree with amputation Subjective ROS Limited/Unobtainable: Yes Interval Events: looks comfortabel Allergies: Coded Allergies: No Known Allergies (Verified , 01/27/10) Objective Last 24 Hour Vital Signs Date Time Temp Pulse Resp B/P (MAP) Pulse Ox O2 Delivery O2 Flow Rate FiO2 08/30/17 12:00 97.7 88 20 154/78 98 Room Air 97.7 08/30/17 08:38 74 150/84 08/30/17 08:00 98.1 74 20 150/84 95 98.1 08/30/17 04:50 98.1 97 20 105/82 91 Room Air 98.1 08/30/17 00:34 98.3 101 18 99/78 91 Room Air 98.3 08/29/17 20:28 98.8 95 20 158/85 96 Room Air 98.8 08/29/17 16:08 81 160/85 08/29/17 15:58 98.4 81 18 160/85 100 98.4 Intake and Output 08/29/17 08/30/17 19:00 07:00 Intake Total 30 ml 300 ml Output Total 500 ml Balance -470 ml 300 ml Tube Feeding 30 ml 300 ml Output Urine Total 500 ml # Bowel Movements 2 Objective General Appearance: WD/WN, no acute distress HEENT: atraumatic Respiratory/Chest: normal breath sounds Abdomen: normal bowel sounds, soft, non tender Extremities: no cyanosis, clubbing, edema Skin: clean dressing on left heal Current Medications Medications (Trade) Dose Ordered Sig/Nancy Route PRN Reason Start Time Stop Time Status Last Admin Dose Admin Acetaminophen (Tylenol) 650 mg Q4H PRN GT temp > 100 / mild pain 08/28/17 15:00 09/27/17 14:59 Amlodipine Besylate (Norvasc) 5 mg DAILY GT 08/29/17 14:45 09/28/17 14:44 08/30/17 08:38 Chlorhexidine Gluconate (Jossy-Hex 2%) 1 applic DAILY@2000 TOPIC 08/28/17 20:00 09/27/17 19:59 08/29/17 20:15 Clonidine HCl (Catapres Tab) 0.1 mg Q6H PRN GT For High BP 160 syst 08/28/17 15:00 09/27/17 14:59 Dextrose (Dextrose 50%) 25 ml STAT PRN IV Hypoglycemia 08/28/17 15:00 09/27/17 14:59 Dextrose (Dextrose 50%) 50 ml STAT PRN IV Hypoglycemia 08/28/17 15:00 09/27/17 14:59 Famotidine (Pepcid) 20 mg BID GT 08/28/17 18:00 09/22/17 08:59 08/30/17 08:02 Insulin Aspart (NovoLOG) EVERY 6 HOURS SUBQ 08/28/17 18:00 09/22/17 11:29 08/30/17 11:54 Levetiracetam (Keppra) 500 mg Q12HR GT 08/29/17 21:00 09/28/17 20:59 08/30/17 08:02 Metoclopramide HCl (Reglan) 5 mg Q6HR GT 08/28/17 18:00 09/22/17 00:00 08/30/17 11:53 Ondansetron HCl (Zofran) 4 mg Q6H PRN IVP Nausea & Vomiting 08/28/17 15:00 09/21/17 14:59 Piperacillin Sod/ Tazobactam Sod 3.375 gm/Dextrose 110 ml @ 27.5 mls/hr Q8HR IVPB 08/28/17 22:00 09/04/17 13:59 08/30/17 13:57 Polyethylene Glycol (Miralax) 17 gm DAILYPRN PRN GT Constipation 08/29/17 15:00 09/28/17 14:59 Tramadol HCl (Ultram) 25 mg Q6H PRN GT Severe Pain (Pain Scale 7-10) 08/28/17 18:00 09/04/17 17:59 Vancomycin HCl (Vanco rx to dose) 1 ea DAILY PRN MISC Per rx protocol 08/28/17 15:00 09/27/17 14:59 Vancomycin/Sodium Chloride 250 ml @ 166.667 mls/hr Q24H IVPB 08/28/17 20:30 09/02/17 23:59 08/29/17 20:29 Saira Lazcano MD Aug 30, 2017 14:57
--- NOTE | 2017-08-30 15:37 | General Progress Note ---
Assessment/Plan Problem List: (1) UTI (urinary tract infection) (2) Sepsis ICD Codes: A41.9 - Sepsis, unspecified organism SNOMED: 94183226 (3) DVT (deep vein thrombosis) in ICD Codes: O22.30 - Deep phlebothrombosis in , unspecified trimester; I82.409 - Acute embolism and thrombosis of unspecified deep veins of unspecified lower extremity SNOMED: 95435775 (4) Diabetes ICD Codes: E11.9 - Type 2 diabetes mellitus without complications SNOMED: 91801171 (5) Anemia ICD Codes: D64.9 - Anemia, unspecified SNOMED: 143016479 Qualifiers: Qualified Codes: D64.9 - Anemia, unspecified (6) Hypernatremia ICD Codes: E87.0 - Hyperosmolality and hypernatremia SNOMED: 56181388 (7) Osteomyelitis of ankle or foot, left, acute ICD Codes: M86.172 - Other acute osteomyelitis, left ankle and foot SNOMED: 033942136 (8) Pneumonia involving left lung ICD Codes: J18.9 - Pneumonia, unspecified organism SNOMED: 022240173 Status: unchanged Status Narrative disposition problem Assessment/Plan DC on antibiotics per ID recs via PICC Problems with disposition CM & DPOA are in contact (1) Osteomyelitis of ankle or foot, left, acute Assessment & Plan: on chronic, with worsening osteomyelitis due to poor circulation in the left leg, will continue wide spectrum antibiotics coverage with vancomycin and Zosyn , I had detailed discussion with the conservative palmira whitleyeres regarding the patient condition and the need to consider amputation since she is not responding well to antibiotics alone, and we went over the risk and the benefits of the amputation, and she understood that the patient will have bad outcome if she failes the current regimen of antibiotics she is on , which include septic shock with multiorgan failure and . she will think about it . discussed with other consultants (2) Heel ulcer Assessment & Plan: not improving with worsening osteomyelitis , she will need amputation for source control , will continue wide spectrum antibiotics pending conservative decision regarding amputation DPOA refuses amputation will arrange PICC and DC planning Per ID recs Conservator left messages and so far can not arrange for bioethics BioEth[employer] consult resume Lovenox for DVT Per ID and Surg GT feeding per order transfuse as needed Subjective ROS Limited/Unobtainable: No Constitutional: Reports: malaise Allergies: Coded Allergies: No Known Allergies (Verified , 01/27/10) Objective Last 24 Hour Vital Signs Date Time Temp Pulse Resp B/P (MAP) Pulse Ox O2 Delivery O2 Flow Rate FiO2 08/30/17 12:00 97.7 88 20 154/78 98 Room Air 97.7 08/30/17 08:38 74 150/84 08/30/17 08:00 98.1 74 20 150/84 95 98.1 08/30/17 04:50 98.1 97 20 105/82 91 Room Air 98.1 08/30/17 00:34 98.3 101 18 99/78 91 Room Air 98.3 08/29/17 20:28 98.8 95 20 158/85 96 Room Air 98.8 08/29/17 16:08 81 160/85 08/29/17 15:58 98.4 81 18 160/85 100 98.4 Intake and Output 08/29/17 08/30/17 19:00 07:00 Intake Total 30 ml 300 ml Output Total 500 ml Balance -470 ml 300 ml Tube Feeding 30 ml 300 ml Output Urine Total 500 ml # Bowel Movements 2 Height (Feet): 5 Height (Inches): 5.00 Weight (Pounds): 198 General Appearance: no apparent distress Objective no change GEORGE MONDRAGON Aug 30, 2017 15:37
[2017-08-30 16:00] VITALS: BP 149/78
[2017-08-30] MEDS ORDERED: Vancomycin 1250mg/D5W 250ml IVPB SCH (20:00)
[2017-08-30] MEDS: Vancomycin 750mg/NS 250ml 250 ML IVPB SCH (20:05)
[2017-08-30] MEDS: Dyna-Hex 2% Top Sol 2oz TOPIC SCH (20:05)
[2017-08-30 20:13] VITALS: BP 137/89
[2017-08-31] VITALS (8 sets, daily range): BP systolic 123–169; BP diastolic 66–99
[2017-08-31] MEDS: Metoclopramide 10mg/10ml Liq GT SCH ×3 (05:12→17:52)
[2017-08-31] MEDS: Piperacillin/Tazobactam 3.375 GM in D5W 110 ML IVPB SCH ×3 (05:12→22:14)
[2017-08-31] MEDS: NovoLOG Insulin Flexpen SUBQ SCH ×3 (05:45→18:01)
[2017-08-31] MEDS: levETIRAcetam 500mg/5ml Liquid GT SCH ×2 (08:58→20:27)
--- NOTE | 2017-08-31 10:38 | General Progress Note ---
Assessment/Plan Problem List: (1) UTI (urinary tract infection) (2) Sepsis ICD Codes: A41.9 - Sepsis, unspecified organism SNOMED: 58853869 (3) DVT (deep vein thrombosis) in ICD Codes: O22.30 - Deep phlebothrombosis in , unspecified trimester; I82.409 - Acute embolism and thrombosis of unspecified deep veins of unspecified lower extremity SNOMED: 34470195 (4) Diabetes ICD Codes: E11.9 - Type 2 diabetes mellitus without complications SNOMED: 93071623 (5) Anemia ICD Codes: D64.9 - Anemia, unspecified SNOMED: 337929119 Qualifiers: Qualified Codes: D64.9 - Anemia, unspecified (6) Hypernatremia ICD Codes: E87.0 - Hyperosmolality and hypernatremia SNOMED: 51075926 (7) Osteomyelitis of ankle or foot, left, acute ICD Codes: M86.172 - Other acute osteomyelitis, left ankle and foot SNOMED: 432019553 (8) Pneumonia involving left lung ICD Codes: J18.9 - Pneumonia, unspecified organism SNOMED: 274380739 Status: unchanged Assessment/Plan start q8h Tramadol DC on antibiotics per ID recs via PICC Problems with disposition CM & DPOA are in contact (1) Osteomyelitis of ankle or foot, left, acute Assessment & Plan: on chronic, with worsening osteomyelitis due to poor circulation in the left leg, will continue wide spectrum antibiotics coverage with vancomycin and Zosyn , I had detailed discussion with the conservative palmira whitleyeres regarding the patient condition and the need to consider amputation since she is not responding well to antibiotics alone, and we went over the risk and the benefits of the amputation, and she understood that the patient will have bad outcome if she failes the current regimen of antibiotics she is on , which include septic shock with multiorgan failure and . she will think about it . discussed with other consultants (2) Heel ulcer Assessment & Plan: not improving with worsening osteomyelitis , she will need amputation for source control , will continue wide spectrum antibiotics pending conservative decision regarding amputation DPOA refuses amputation will arrange PICC and DC planning Per ID recs Conservator left messages and so far can not arrange for bioethics BioEthic consult resume Lovenox for DVT Per ID and Surg GT feeding per order transfuse as needed Subjective ROS Limited/Unobtainable: No Allergies: Coded Allergies: No Known Allergies (Verified , 01/27/10) Objective Last 24 Hour Vital Signs Date Time Temp Pulse Resp B/P (MAP) Pulse Ox O2 Delivery O2 Flow Rate FiO2 08/31/17 08:59 82 160/79 08/31/17 08:00 97.5 83 21 160/72 100 97.5 08/31/17 04:00 97.7 82 20 150/75 100 Room Air 97.7 08/31/17 00:00 98.1 100 22 163/66 100 Room Air 98.1 08/30/17 20:13 98.1 95 20 137/89 99 Room Air 98.1 08/30/17 16:00 98.2 73 20 149/78 99 98.2 08/30/17 12:00 97.7 88 20 154/78 98 Room Air 97.7 Intake and Output 08/30/17 08/31/17 19:00 07:00 Intake Total 450 ml 330 ml Output Total 450 ml 500 ml Balance 0 ml -170 ml Free Water 120 ml Tube Feeding 330 ml 330 ml Output Urine Total 450 ml 500 ml # Bowel Movements 1 Height (Feet): 5 Height (Inches): 5.00 Weight (Pounds): 200 General Appearance: mild distress Cardiovascular: normal rate Respiratory/Chest: decreased breath sounds Abdomen: soft Extremities: other - no change Objective no change GEORGE MONDRAGON Aug 31, 2017 10:38
--- NOTE | 2017-08-31 12:23 | Infectious Diseases Prog Note ---
Assessment/Plan Problems: (1) Osteomyelitis of ankle or foot, left, acute Assessment & Plan: on chronic, with worsening osteomyelitis , due to pseudomonas aeruginosa and proteus mirabilis , already on wide spectrum antibiotics coverage with vancomycin and Zosyn , pending conservative decision regarding amputation . I had several discussions with the conservative regarding the patient condition and the need to consider amputation since she is not responding well to antibiotics alone, and already recieved antibiotics in the past , and we went over the risk and the benefits of the amputation again and she understood that the patient will have bad outcome if she fails the current regimen of antibiotics again she is on now , including septic shock with multiorgan failure and . she requested her zosyn intervals to be decreased to twice daily instead of three times a day which she is on now and I didn't agree with that since it is below the standard dosing for this antibiotics and will not achieve adequate level to kill the bacteria and will lead to failure . she understood that , and I recommended hospic care and comfort measures if she is planing to stop her antibiotics , or decrease the dose , and she will think about it . discussed with other consultants (2) Heel ulcer Assessment & Plan: not improving with worsening osteomyelitis , she will need amputation for source control , will continue wide spectrum antibiotics pending conservative decision regarding amputation (3) Sepsis Assessment & Plan: due to the above , with negative blood culture , continue wide spectrum antibiotics pending amputations (4) Diabetes Assessment & Plan: recommend tight glycemic control to keep blood glucose between 100-140 Subjective ROS Limited/Unobtainable: Yes Allergies: Coded Allergies: No Known Allergies (Verified , 01/27/10) Subjective she was lying in bed, sleeping , no fever or chills , has minimal draining from the left heel wound, with foul smell coming from the heel wound too and some gangrenous changes in the skin with an eschar. Objective Vital Signs Last 24 Hour Vital Signs Date Time Temp Pulse Resp B/P (MAP) Pulse Ox O2 Delivery O2 Flow Rate FiO2 08/31/17 12:15 164/79 08/31/17 08:59 82 160/79 08/31/17 08:00 97.5 83 21 160/72 100 97.5 08/31/17 04:00 97.7 82 20 150/75 100 Room Air 97.7 08/31/17 00:00 98.1 100 22 163/66 100 Room Air 98.1 08/30/17 20:13 98.1 95 20 137/89 99 Room Air 98.1 08/30/17 16:00 98.2 73 20 149/78 99 98.2 Height (Feet): 5 Height (Inches): 5.00 Weight (Pounds): 200 General Appearance: WD/WN, no acute distress HEENT: normocephalic, atraumatic, anicteric, supple, no JVD Respiratory/Chest: chest wall non-tender, lungs clear, no respiratory distress , no accessory muscle use, decreased breath sounds Cardiovascular: normal peripheral pulses, normal rate, regular rhythm, no gallop/murmur, no JVD Abdomen: normal bowel sounds, soft, non tender, no organomegaly, non distended , no mass, no scars Extremities: no cyanosis, no clubbing Skin: no rash, ulcers - left heel and lateral foot wounds with an eschar in the sole of her foot , and foul smell Neurologic/Psychiatric: unresponsiveness Current Medications Medications (Trade) Dose Ordered Sig/Nancy Route PRN Reason Start Time Stop Time Status Last Admin Dose Admin Acetaminophen (Tylenol) 650 mg Q4H PRN GT temp > 100 / mild pain 08/28/17 15:00 09/27/17 14:59 Amlodipine Besylate (Norvasc) 5 mg DAILY GT 08/29/17 14:45 09/28/17 14:44 08/31/17 08:59 Chlorhexidine Gluconate (Jossy-Hex 2%) 1 applic DAILY@1999 TOPIC 08/28/17 20:00 09/27/17 19:59 08/30/17 20:05 Clonidine HCl (Catapres Tab) 0.1 mg Q6H PRN GT For High BP 160 syst 08/28/17 15:00 09/27/17 14:59 08/31/17 12:15 Dextrose (Dextrose 50%) 25 ml STAT PRN IV Hypoglycemia 08/28/17 15:00 09/27/17 14:59 Dextrose (Dextrose 50%) 50 ml STAT PRN IV Hypoglycemia 08/28/17 15:00 09/27/17 14:59 Famotidine (Pepcid) 20 mg BID GT 08/28/17 18:00 09/22/17 08:59 08/31/17 08:58 Hydromorphone HCl (Dilaudid) 0.5 mg Q4H PRN IVP Severe Pain (Pain Scale 7-10) 08/31/17 11:00 09/07/17 10:59 Insulin Aspart (NovoLOG) EVERY 6 HOURS SUBQ 08/28/17 18:00 09/22/17 11:29 08/31/17 12:16 Levetiracetam (Keppra) 500 mg Q12HR GT 08/29/17 21:00 09/28/17 20:59 08/31/17 08:58 Metoclopramide HCl (Reglan) 5 mg Q6HR GT 08/28/17 18:00 09/22/17 00:00 08/31/17 12:15 Ondansetron HCl (Zofran) 4 mg Q6H PRN IVP Nausea & Vomiting 08/28/17 15:00 09/21/17 14:59 Piperacillin Sod/ Tazobactam Sod 3.375 gm/Dextrose 110 ml @ 27.5 mls/hr Q8HR IVPB 08/28/17 22:00 09/04/17 13:59 08/31/17 05:12 Polyethylene Glycol (Miralax) 17 gm DAILYPRN PRN GT Constipation 08/29/17 15:00 09/28/17 14:59 Tramadol HCl (Ultram) 25 mg Q8HR GT 08/31/17 14:00 09/07/17 13:59 Vancomycin HCl (Vanco rx to dose) 1 ea DAILY PRN MISC Per rx protocol 08/28/17 15:00 09/27/17 14:59 Vancomycin/Sodium Chloride 250 ml @ 166.667 mls/hr Q24H IVPB 08/28/17 20:30 09/02/17 23:59 08/30/17 20:05 Ayala Forman M.D. Aug 31, 2017 12:23
[2017-08-31] MEDS: traMADol 50mg tab GT SCH ×2 (13:38→22:15)
[2017-08-31] MEDS: Dyna-Hex 2% Top Sol 2oz TOPIC SCH (20:27)
[2017-08-31] MEDS: Vancomycin 750mg/NS 250ml 250 ML IVPB SCH (20:30)
[2017-08-31] MEDS ORDERED: NS 275ml ONE ×2 (20:37→21:46)
[2017-08-31] MEDS ORDERED: Sterile Water Irrig 1000ml IRRIG ONE (21:46)
[2017-08-31] MEDS ORDERED: Tubing IV Secondary IV ONE (21:46)
--- NOTE | 2017-08-31 22:36 | Pulmonology Progress Note ---
Assessment/Plan Problems: (1) Sepsis (2) Osteomyelitis of ankle or foot, left, acute (3) G tube feedings (4) Functional quadriplegia (5) Right hemiparesis (6) Diabetes Assessment/Plan looks comfortable continue abx check labs tolerating feeding check cultures dvt prophylaxis palliative care is a viable option in this case. dc planning, Niece didn't agree with amputation Subjective ROS Limited/Unobtainable: No Allergies: Coded Allergies: No Known Allergies (Verified , 01/27/10) Objective Last 24 Hour Vital Signs Date Time Temp Pulse Resp B/P (MAP) Pulse Ox O2 Delivery O2 Flow Rate FiO2 08/31/17 22:15 97.7 08/31/17 20:27 161/77 08/31/17 20:00 97.7 92 21 161/77 99 Room Air 97.7 08/31/17 18:02 154/89 08/31/17 16:00 97.7 79 20 162/90 98 97.7 08/31/17 14:37 97.2 08/31/17 13:38 97.2 08/31/17 12:15 164/79 08/31/17 12:00 97.2 78 21 169/96 100 97.2 08/31/17 08:59 82 160/79 08/31/17 08:00 97.5 83 21 160/72 100 97.5 08/31/17 04:00 97.7 82 20 150/75 100 Room Air 97.7 08/31/17 00:00 98.1 100 22 163/66 100 Room Air 98.1 Intake and Output 08/30/17 08/31/17 19:00 07:00 Intake Total 450 ml 360 ml Output Total 450 ml 500 ml Balance 0 ml -140 ml Free Water 120 ml Tube Feeding 330 ml 360 ml Output Urine Total 450 ml 500 ml # Bowel Movements 1 Objective General Appearance: WD/WN, no acute distress HEENT: atraumatic Respiratory/Chest: normal breath sounds Abdomen: normal bowel sounds, soft, non tender Extremities: no cyanosis, clubbing, edema Skin: clean dressing on left heal Laboratory Tests 08/31/17 19:40: Vancomycin Level Trough 21.6H Current Medications Medications (Trade) Dose Ordered Sig/Nancy Route PRN Reason Start Time Stop Time Status Last Admin Dose Admin Acetaminophen (Tylenol) 650 mg Q4H PRN GT temp > 100 / mild pain 08/28/17 15:00 09/27/17 14:59 Amlodipine Besylate (Norvasc) 5 mg DAILY GT 08/29/17 14:45 09/28/17 14:44 08/31/17 08:59 Chlorhexidine Gluconate (Jossy-Hex 2%) 1 applic DAILY@2000 TOPIC 08/28/17 20:00 09/27/17 19:59 08/31/17 20:27 Clonidine HCl (Catapres Tab) 0.1 mg Q6H PRN GT For High BP 160 syst 08/28/17 15:00 09/27/17 14:59 08/31/17 20:27 Dextrose (Dextrose 50%) 25 ml STAT PRN IV Hypoglycemia 08/28/17 15:00 09/27/17 14:59 Dextrose (Dextrose 50%) 50 ml STAT PRN IV Hypoglycemia 08/28/17 15:00 09/27/17 14:59 Famotidine (Pepcid) 20 mg BID GT 08/28/17 18:00 09/22/17 08:59 08/31/17 17:52 Hydromorphone HCl (Dilaudid) 0.5 mg Q4H PRN IVP Severe Pain (Pain Scale 7-10) 08/31/17 11:00 09/07/17 10:59 Insulin Aspart (NovoLOG) EVERY 6 HOURS SUBQ 08/28/17 18:00 09/22/17 11:29 08/31/17 18:01 Levetiracetam (Keppra) 500 mg Q12HR GT 08/29/17 21:00 09/28/17 20:59 08/31/17 20:27 Metoclopramide HCl (Reglan) 5 mg Q6HR GT 08/28/17 18:00 09/22/17 00:00 08/31/17 17:52 Ondansetron HCl (Zofran) 4 mg Q6H PRN IVP Nausea & Vomiting 08/28/17 15:00 09/21/17 14:59 Piperacillin Sod/ Tazobactam Sod 3.375 gm/Dextrose 110 ml @ 27.5 mls/hr Q8HR IVPB 08/28/17 22:00 09/04/17 13:59 08/31/17 22:14 Polyethylene Glycol (Miralax) 17 gm DAILYPRN PRN GT Constipation 08/29/17 15:00 09/28/17 14:59 Tramadol HCl (Ultram) 25 mg Q8HR GT 08/31/17 14:00 09/07/17 13:59 08/31/17 22:15 Vancomycin HCl (Vanco rx to dose) 1 ea DAILY PRN MISC Per rx protocol 08/28/17 15:00 09/27/17 14:59 Vancomycin HCl/ Dextrose 250 ml @ 125 mls/hr Q48H IVPB 09/01/17 06:00 09/06/17 05:59 Saira Lazcano MD Aug 31, 2017 22:35
[2017-09-01] VITALS: BP 126/68
[2017-09-01] MEDS: Metoclopramide 10mg/10ml Liq GT SCH ×4 (00:34→17:00)
[2017-09-01] MEDS: NovoLOG Insulin Flexpen SUBQ SCH ×4 (00:34→17:34)
[2017-09-01 04:00] VITALS: BP 160/78
[2017-09-01] MEDS: traMADol 50mg tab GT SCH ×3 (05:38→21:05)
[2017-09-01] MEDS: Vancomycin 1.5 GM/D5W 250ML IVPB SCH (05:42)
[2017-09-01] MEDS: Piperacillin/Tazobactam 3.375 GM in D5W 110 ML IVPB SCH ×3 (06:00→16:00)
[2017-09-01 08:00] VITALS: BP 142/62
[2017-09-01] MEDS: levETIRAcetam 500mg/5ml Liquid GT SCH ×2 (08:21→21:05)
--- NOTE | 2017-09-01 11:40 | General Progress Note ---
Assessment/Plan Problem List: (1) UTI (urinary tract infection) (2) Sepsis ICD Codes: A41.9 - Sepsis, unspecified organism SNOMED: 00941114 (3) DVT (deep vein thrombosis) in ICD Codes: O22.30 - Deep phlebothrombosis in , unspecified trimester; I82.409 - Acute embolism and thrombosis of unspecified deep veins of unspecified lower extremity SNOMED: 73345796 (4) Diabetes ICD Codes: E11.9 - Type 2 diabetes mellitus without complications SNOMED: 46559673 (5) Anemia ICD Codes: D64.9 - Anemia, unspecified SNOMED: 743493036 Qualifiers: Qualified Codes: D64.9 - Anemia, unspecified (6) Hypernatremia ICD Codes: E87.0 - Hyperosmolality and hypernatremia SNOMED: 88015053 (7) Osteomyelitis of ankle or foot, left, acute ICD Codes: M86.172 - Other acute osteomyelitis, left ankle and foot SNOMED: 073962394 (8) Pneumonia involving left lung ICD Codes: J18.9 - Pneumonia, unspecified organism SNOMED: 905795642 Status: stable Status Narrative pending discharge- check labs today Assessment/Plan start q8h Tramadol DC on antibiotics per ID recs via PICC Problems with disposition CM & DPOA are in contact (1) Osteomyelitis of ankle or foot, left, acute Assessment & Plan: on chronic, with worsening osteomyelitis due to poor circulation in the left leg, will continue wide spectrum antibiotics coverage with vancomycin and Zosyn , I had detailed discussion with the conservative palmira whitleyeres regarding the patient condition and the need to consider amputation since she is not responding well to antibiotics alone, and we went over the risk and the benefits of the amputation, and she understood that the patient will have bad outcome if she failes the current regimen of antibiotics she is on , which include septic shock with multiorgan failure and . she will think about it . discussed with other consultants (2) Heel ulcer Assessment & Plan: not improving with worsening osteomyelitis , she will need amputation for source control , will continue wide spectrum antibiotics pending conservative decision regarding amputation DPOA refuses amputation will arrange PICC and DC planning Per ID recs Conservator left messages and so far can not arrange for bioethics BioEthic consult resume Lovenox for DVT Per ID and Surg GT feeding per order transfuse as needed Subjective ROS Limited/Unobtainable: No Constitutional: Reports: malaise Allergies: Coded Allergies: No Known Allergies (Verified , 01/27/10) Objective Last 24 Hour Vital Signs Date Time Temp Pulse Resp B/P (MAP) Pulse Ox O2 Delivery O2 Flow Rate FiO2 09/01/17 08:20 75 142/67 09/01/17 08:00 97.8 75 19 142/62 100 97.8 09/01/17 06:37 97.0 09/01/17 05:38 97.0 09/01/17 04:00 97.9 77 18 160/78 98 Room Air 97.9 09/01/17 01:40 Room Air 09/01/17 00:00 97.0 77 20 126/68 100 Room Air 97.0 08/31/17 22:15 97.7 08/31/17 21:30 85 123/99 Room Air 08/31/17 20:27 161/77 08/31/17 20:00 97.7 92 21 161/77 99 Room Air 97.7 08/31/17 18:02 154/89 08/31/17 16:00 97.7 79 20 162/90 98 97.7 08/31/17 13:38 97.2 08/31/17 12:15 164/79 08/31/17 12:00 97.2 78 21 169/96 100 97.2 Intake and Output 08/31/17 09/01/17 19:00 07:00 Intake Total 460 ml 635.0 ml Output Total 450 ml 350 ml Balance 10 ml 285.0 ml Free Water 100 ml 40 ml IV Total 235.0 ml Tube Feeding 360 ml 360 ml Output Urine Total 450 ml 350 ml # Bowel Movements 2 1 Laboratory Tests 08/31/17 19:40: Vancomycin Level Trough 21.6H 09/01/17 10:45: White Blood Count [Pending], Red Blood Count [Pending], Hemoglobin [Pending], Hematocrit [Pending], Mean Corpuscular Volume [Pending], Mean Corpuscular Hemoglobin [Pending], Mean Corpuscular Hemoglobin Concent [Pending], Red Cell Distribution Width [Pending], Platelet Count [Pending], Mean Platelet Volume [ Pending], Neutrophils (%) (Auto) [Pending], Lymphocytes (%) (Auto) [Pending], Monocytes (%) (Auto) [Pending], Eosinophils (%) (Auto) [Pending], Basophils (%) (Auto) [Pending], Sodium Level [Pending], Potassium Level [Pending], Chloride Level [Pending], Carbon Dioxide Level [Pending], Blood Urea Nitrogen [Pending], Creatinine [Pending], Estimat Glomerular Filtration Rate [Pending], Glucose Level [Pending], Calcium Level [Pending], Phosphorus Level [Pending], Total Bilirubin [Pending], Aspartate Amino Transf (AST/SGOT) [Pending], Alanine Aminotransferase (ALT/SGPT) [Pending], Alkaline Phosphatase [Pending], C- Reactive Protein, Quantitative [Pending], Total Protein [Pending], Albumin [ Pending], Globulin [Pending] Height (Feet): 5 Height (Inches): 5.00 Weight (Pounds): 200 General Appearance: no apparent distress Neck: limited range of motion Cardiovascular: normal rate Respiratory/Chest: decreased breath sounds Abdomen: soft Objective no change GEORGE MONDRAGON Sep 01, 2017 11:40
[2017-09-01 11:47] LABS: BASOPHILS % (AUTO) 0.6 % (0.0-2.0); EOSINOPHILS % (AUTO) 2.6 % (0.0-3.0); HEMATOCRIT 30.1 % (37.0-47.0); HEMOGLOBIN 10.2 G/DL (12.0-16.0); LYMPHOCYTES % (AUTO) 34.8 % (20.0-45.0); MEAN CORPUSCULAR VOLUME 97 FL (80-99); MONOCYTES % (AUTO) 7.2 % (1.0-10.0); NEUTROPHILS % (AUTO) 54.7 % (45.0-75.0); PLATELET COUNT 234 K/UL (150-450); RED BLOOD COUNT 3.11 M/UL (4.20-5.40); RED CELL DISTRIBUTION WIDTH 14.5 % (11.6-14.8); WHITE BLOOD COUNT 7.5 K/UL (4.8-10.8)
[2017-09-01 12:00] VITALS: BP 147/77
[2017-09-01 12:04] LABS: ANION GAP 9 mmol/L (5-15); BLOOD UREA NITROGEN 26 mg/dL (7-18); CALCIUM 9.2 MG/DL (8.5-10.1); CARBON DIOXIDE 28 MMOL/L (21-32); CHLORIDE 108 MMOL/L (98-107); CREATININE 1.4 MG/DL (0.55-1.30); POTASSIUM 3.3 MMOL/L (3.5-5.1); SODIUM 145 MMOL/L (136-145)
[2017-09-01 12:08] LABS: PHOSPHORUS 3.7 MG/DL (2.5-4.9)
[2017-09-01 12:09] LABS: ALANINE AMINOTRANSFERASE 18 U/L (12-78); ALBUMIN 2.5 G/DL (3.4-5.0); ALBUMIN/GLOBULIN RATIO 0.4 (1.0-2.7); ALKALINE PHOSPHATASE 89 U/L (46-116); ASPARTATE AMINO TRANSFERASE 21 U/L (15-37); BILIRUBIN,TOTAL 0.3 MG/DL (0.2-1.0)
[2017-09-01 16:30] VITALS: BP 128/104
--- NOTE | 2017-09-01 17:14 | Cardiology Report ---
APPROVED REPORT EKG Measurement Heart [id number] Sinus tachycardia Nonspecific T wave abnormality Artifact Abnormal ECG
--- NOTE | 2017-09-01 17:27 | Pulmonology Progress Note ---
Assessment/Plan Problems: (1) Sepsis (2) Osteomyelitis of ankle or foot, left, acute (3) G tube feedings (4) Functional quadriplegia (5) Right hemiparesis (6) Diabetes Assessment/Plan looks comfortable continue abx check labs tolerating feeding check cultures dvt prophylaxis symptomatic treatment palliative care is a viable option in this case. dc planning, Niece didn't agree with amputation Subjective ROS Limited/Unobtainable: No Constitutional: Reports: no symptoms HEENT: Repors: no symptoms Allergies: Coded Allergies: No Known Allergies (Verified , 01/27/10) Objective Last 24 Hour Vital Signs Date Time Temp Pulse Resp B/P (MAP) Pulse Ox O2 Delivery O2 Flow Rate FiO2 09/01/17 16:30 97.6 85 20 128/104 98 97.6 09/01/17 13:55 97.5 09/01/17 12:56 97.5 09/01/17 12:00 97.5 78 20 147/77 100 97.5 09/01/17 08:20 75 142/67 09/01/17 08:00 97.8 75 19 142/62 100 97.8 09/01/17 05:38 97.0 09/01/17 04:00 97.9 77 18 160/78 98 Room Air 97.9 09/01/17 01:40 Room Air 09/01/17 00:00 97.0 77 20 126/68 100 Room Air 97.0 08/31/17 22:15 97.7 08/31/17 21:30 85 123/99 Room Air 08/31/17 20:27 161/77 08/31/17 20:00 97.7 92 21 161/77 99 Room Air 97.7 08/31/17 18:02 154/89 Intake and Output 08/31/17 09/01/17 19:00 07:00 Intake Total 460 ml 635.0 ml Output Total 450 ml 350 ml Balance 10 ml 285.0 ml Free Water 100 ml 40 ml IV Total 235.0 ml Tube Feeding 360 ml 360 ml Output Urine Total 450 ml 350 ml # Bowel Movements 2 1 Objective General Appearance: WD/WN, no acute distress HEENT: atraumatic Respiratory/Chest: normal breath sounds Abdomen: normal bowel sounds, soft, non tender Extremities: no cyanosis, clubbing, edema Skin: clean dressing on left heal Laboratory Tests 08/31/17 19:40: Vancomycin Level Trough 21.6H 09/01/17 10:45: White Blood Count 7.5, Red Blood Count 3.11L, Hemoglobin 10.2L, Hematocrit 30.1L , Mean Corpuscular Volume 97, Mean Corpuscular Hemoglobin 32.8H, Mean Corpuscular Hemoglobin Concent 33.9, Red Cell Distribution Width 14.5, Platelet Count 234, Mean Platelet Volume 8.0, Neutrophils (%) (Auto) 54.7, Lymphocytes (% ) (Auto) 34.8, Monocytes (%) (Auto) 7.2, Eosinophils (%) (Auto) 2.6, Basophils ( %) (Auto) 0.6, Sodium Level 145, Potassium Level 3.3L, Chloride Level 108H, Carbon Dioxide Level 28, Anion Gap 9, Blood Urea Nitrogen 26H, Creatinine 1.4H, Estimat Glomerular Filtration Rate , Glucose Level 149H, Calcium Level 9.2, Phosphorus Level 3.7, Total Bilirubin 0.3, Aspartate Amino Transf (AST/SGOT) 21 , Alanine Aminotransferase (ALT/SGPT) 18, Alkaline Phosphatase 89, C-Reactive Protein, Quantitative 6.7H, Total Protein 9.3H, Albumin 2.5L, Globulin 6.8, Albumin/Globulin Ratio 0.4L Current Medications Medications (Trade) Dose Ordered Sig/Nancy Route PRN Reason Start Time Stop Time Status Last Admin Dose Admin Acetaminophen (Tylenol) 650 mg Q4H PRN GT temp > 100 / mild pain 08/28/17 15:00 09/27/17 14:59 Amlodipine Besylate (Norvasc) 5 mg DAILY GT 08/29/17 14:45 09/28/17 14:44 09/01/17 08:20 Chlorhexidine Gluconate (Jossy-Hex 2%) 1 applic DAILY@1999 TOPIC 08/28/17 20:00 09/27/17 19:59 08/31/17 20:27 Clonidine HCl (Catapres Tab) 0.1 mg Q6H PRN GT For High BP 160 syst 08/28/17 15:00 09/27/17 14:59 08/31/17 20:27 Dextrose (Dextrose 50%) 25 ml STAT PRN IV Hypoglycemia 08/28/17 15:00 09/27/17 14:59 Dextrose (Dextrose 50%) 50 ml STAT PRN IV Hypoglycemia 08/28/17 15:00 09/27/17 14:59 Famotidine (Pepcid) 20 mg BID GT 08/28/17 18:00 09/22/17 08:59 09/01/17 17:00 Hydromorphone HCl (Dilaudid) 0.5 mg Q4H PRN IVP Severe Pain (Pain Scale 7-10) 08/31/17 11:00 09/07/17 10:59 Insulin Aspart (NovoLOG) EVERY 6 HOURS SUBQ 08/28/17 18:00 09/22/17 11:29 09/01/17 12:58 Levetiracetam (Keppra) 500 mg Q12HR GT 08/29/17 21:00 09/28/17 20:59 09/01/17 08:21 Metoclopramide HCl (Reglan) 5 mg Q6HR GT 08/28/17 18:00 09/22/17 00:00 09/01/17 17:00 Ondansetron HCl (Zofran) 4 mg Q6H PRN IVP Nausea & Vomiting 08/28/17 15:00 09/21/17 14:59 Piperacillin Sod/ Tazobactam Sod 3.375 gm/Dextrose 110 ml @ 27.5 mls/hr Q8HR@0000,0800,1600 IVPB 09/01/17 08:00 09/08/17 07:59 09/01/17 16:00 Polyethylene Glycol (Miralax) 17 gm DAILYPRN PRN GT Constipation 08/29/17 15:00 09/28/17 14:59 Tramadol HCl (Ultram) 25 mg Q8HR GT 08/31/17 14:00 09/07/17 13:59 09/01/17 12:56 Vancomycin HCl (Vanco rx to dose) 1 ea DAILY PRN MISC Per rx protocol 08/28/17 15:00 09/27/17 14:59 Vancomycin HCl/ Dextrose 250 ml @ 125 mls/hr Q48H IVPB 09/01/17 06:00 09/06/17 05:59 09/01/17 05:42 Saira Lazcano MD Sep 01, 2017 17:27
--- NOTE | 2017-09-01 18:46 | Infectious Diseases Prog Note ---
Assessment/Plan Problems: (1) Osteomyelitis of ankle or foot, left, acute Assessment & Plan: with worsening infection and osteomyelitis , continue vancomycin and Zosyn empiric coverage , she will require amputation for definitive treatment , conservative is aware , had multiple discussion regarding her left foot conditions , she still refusing amputation , she is aware that her chance of cure is very low , and she failed couple of antibiotics courses in the past already , surgery is following (2) Heel ulcer Assessment & Plan: not improving with worsening osteomyelitis , she will need amputation for source control , continue wide spectrum antibiotics (3) Sepsis Assessment & Plan: due to the above , continue wide spectrum antibiotics pending culture and possible amputations (4) Fever Assessment & Plan: due to the above , improving with wide spectrum antibiotics (5) Diabetes Assessment & Plan: recommend tight glycemic control to keep blood glucose between 100-140 Subjective ROS Limited/Unobtainable: Yes Allergies: Coded Allergies: No Known Allergies (Verified , 01/27/10) Subjective she was lying in bed, comfortable , no fever or chills , has minimal draining from the left heel wound, with foul smell coming from the heel wound too and some gangrenous changes in the skin with an eschar. Objective Vital Signs Last 24 Hour Vital Signs Date Time Temp Pulse Resp B/P (MAP) Pulse Ox O2 Delivery O2 Flow Rate FiO2 09/01/17 16:30 97.6 85 20 128/104 98 97.6 09/01/17 13:55 97.5 09/01/17 12:56 97.5 09/01/17 12:00 97.5 78 20 147/77 100 97.5 09/01/17 08:20 75 142/67 09/01/17 08:00 97.8 75 19 142/62 100 97.8 09/01/17 05:38 97.0 09/01/17 04:00 97.9 77 18 160/78 98 Room Air 97.9 09/01/17 01:40 Room Air 09/01/17 00:00 97.0 77 20 126/68 100 Room Air 97.0 08/31/17 22:15 97.7 08/31/17 21:30 85 123/99 Room Air 08/31/17 20:27 161/77 08/31/17 20:00 97.7 92 21 161/77 99 Room Air 97.7 Height (Feet): 5 Height (Inches): 5.00 Weight (Pounds): 200 General Appearance: WD/WN, no acute distress HEENT: normocephalic, atraumatic, anicteric, mucous membranes moist, PERRL Respiratory/Chest: chest wall non-tender, lungs clear, no respiratory distress , no accessory muscle use, decreased breath sounds Cardiovascular: normal rate, regular rhythm, no gallop/murmur, no JVD Abdomen: normal bowel sounds, soft, non tender, no organomegaly, non distended , no mass, no scars Genitourinary: normal external genitalia Extremities: other - left heel pressure wound with lateral foot wound , and granulation at the base, and skin necrosis with gangrenous changes and foul smell Skin: no rash, no lesions, ulcers Neurologic/Psychiatric: unresponsiveness Lymphatic: no neck adenopathy, no groin adenopathy Laboratory Tests Test 08/31/17 19:40 09/01/17 10:45 Vancomycin Level Trough 21.6 ug/mL (5.0-12.0) H White Blood Count 7.5 K/UL (4.8-10.8) Red Blood Count 3.11 M/UL (4.20-5.40) L Hemoglobin 10.2 G/DL (12.0-16.0) L Hematocrit 30.1 % (37.0-47.0) L Mean Corpuscular Volume 97 FL (80-99) Mean Corpuscular Hemoglobin 32.8 PG (27.0-31.0) H Mean Corpuscular Hemoglobin Concent 33.9 G/DL (32.0-36.0) Red Cell Distribution Width 14.5 % (11.6-14.8) Platelet Count 234 K/UL (150-450) Mean Platelet Volume 8.0 FL (6.5-10.1) Neutrophils (%) (Auto) 54.7 % (45.0-75.0) Lymphocytes (%) (Auto) 34.8 % (20.0-45.0) Monocytes (%) (Auto) 7.2 % (1.0-10.0) Eosinophils (%) (Auto) 2.6 % (0.0-3.0) Basophils (%) (Auto) 0.6 % (0.0-2.0) Sodium Level 145 MMOL/L (136-145) Potassium Level 3.3 MMOL/L (3.5-5.1) L Chloride Level 108 MMOL/L (98-107) H Carbon Dioxide Level 28 MMOL/L (21-32) Anion Gap 9 mmol/L (5-15) Blood Urea Nitrogen 26 mg/dL (7-18) H Creatinine 1.4 MG/DL (0.55-1.30) H Estimat Glomerular Filtration Rate mL/min (>60) Glucose Level 149 MG/DL (74-106) H Calcium Level 9.2 MG/DL (8.5-10.1) Phosphorus Level 3.7 MG/DL (2.5-4.9) Total Bilirubin 0.3 MG/DL (0.2-1.0) Aspartate Amino Transf (AST/SGOT) 21 U/L (15-37) Alanine Aminotransferase (ALT/SGPT) 18 U/L (12-78) Alkaline Phosphatase 89 U/L (46-116) C-Reactive Protein, Quantitative 6.7 mg/dL (0.00-0.90) H Total Protein 9.3 G/DL (6.4-8.2) H Albumin 2.5 G/DL (3.4-5.0) L Globulin 6.8 g/dL Albumin/Globulin Ratio 0.4 (1.0-2.7) L Current Medications Medications (Trade) Dose Ordered Sig/Nancy Route PRN Reason Start Time Stop Time Status Last Admin Dose Admin Acetaminophen (Tylenol) 650 mg Q4H PRN GT temp > 100 / mild pain 08/28/17 15:00 09/27/17 14:59 Amlodipine Besylate (Norvasc) 5 mg DAILY GT 08/29/17 14:45 09/28/17 14:44 09/01/17 08:20 Chlorhexidine Gluconate (Jossy-Hex 2%) 1 applic DAILY@1999 TOPIC 08/28/17 20:00 09/27/17 19:59 08/31/17 20:27 Clonidine HCl (Catapres Tab) 0.1 mg Q6H PRN GT For High BP 160 syst 08/28/17 15:00 09/27/17 14:59 08/31/17 20:27 Dextrose (Dextrose 50%) 25 ml STAT PRN IV Hypoglycemia 08/28/17 15:00 09/27/17 14:59 Dextrose (Dextrose 50%) 50 ml STAT PRN IV Hypoglycemia 08/28/17 15:00 09/27/17 14:59 Famotidine (Pepcid) 20 mg BID GT 08/28/17 18:00 09/22/17 08:59 09/01/17 17:00 Hydromorphone HCl (Dilaudid) 0.5 mg Q4H PRN IVP Severe Pain (Pain Scale 7-10) 08/31/17 11:00 09/07/17 10:59 Insulin Aspart (NovoLOG) EVERY 6 HOURS SUBQ 08/28/17 18:00 09/22/17 11:29 09/01/17 17:34 Levetiracetam (Keppra) 500 mg Q12HR GT 08/29/17 21:00 09/28/17 20:59 09/01/17 08:21 Metoclopramide HCl (Reglan) 5 mg Q6HR GT 08/28/17 18:00 09/22/17 00:00 09/01/17 17:00 Ondansetron HCl (Zofran) 4 mg Q6H PRN IVP Nausea & Vomiting 08/28/17 15:00 09/21/17 14:59 Piperacillin Sod/ Tazobactam Sod 3.375 gm/Dextrose 110 ml @ 27.5 mls/hr Q8HR@0000,0800,1600 IVPB 09/01/17 08:00 09/08/17 07:59 09/01/17 16:00 Polyethylene Glycol (Miralax) 17 gm DAILYPRN PRN GT Constipation 08/29/17 15:00 09/28/17 14:59 Tramadol HCl (Ultram) 25 mg Q8HR GT 08/31/17 14:00 09/07/17 13:59 09/01/17 12:56 Vancomycin HCl (Vanco rx to dose) 1 ea DAILY PRN MISC Per rx protocol 08/28/17 15:00 09/27/17 14:59 Vancomycin HCl/ Dextrose 250 ml @ 125 mls/hr Q48H IVPB 09/01/17 06:00 09/06/17 05:59 09/01/17 05:42 Ayala Forman M.D. Sep 01, 2017 18:46
[2017-09-01 20:00] VITALS: BP 149/64
[2017-09-01] MEDS: Dyna-Hex 2% Top Sol 2oz TOPIC SCH (21:05)
[2017-09-02] VITALS: BP 154/61
[2017-09-02] MEDS: Piperacillin/Tazobactam 3.375 GM in D5W 110 ML IVPB SCH ×3 (00:18→16:22)
[2017-09-02] MEDS: Metoclopramide 10mg/10ml Liq GT SCH ×4 (00:19→18:27)
[2017-09-02] MEDS: NovoLOG Insulin Flexpen SUBQ SCH ×4 (00:20→18:34)
[2017-09-02 04:17] VITALS: BP 144/89
[2017-09-02] MEDS: traMADol 50mg tab GT SCH ×3 (06:17→21:06)
[2017-09-02 08:22] VITALS: BP 158/73
[2017-09-02] MEDS: levETIRAcetam 500mg/5ml Liquid GT SCH ×2 (08:46→21:06)
[2017-09-02 12:00] VITALS: BP 114/84
--- NOTE | 2017-09-02 13:16 | General Progress Note ---
Assessment/Plan Problem List: (1) UTI (urinary tract infection) (2) Sepsis ICD Codes: A41.9 - Sepsis, unspecified organism SNOMED: 65149674 (3) DVT (deep vein thrombosis) in ICD Codes: O22.30 - Deep phlebothrombosis in , unspecified trimester; I82.409 - Acute embolism and thrombosis of unspecified deep veins of unspecified lower extremity SNOMED: 97720767 (4) Diabetes ICD Codes: E11.9 - Type 2 diabetes mellitus without complications SNOMED: 00668948 (5) Anemia ICD Codes: D64.9 - Anemia, unspecified SNOMED: 803968374 Qualifiers: Qualified Codes: D64.9 - Anemia, unspecified (6) Hypernatremia ICD Codes: E87.0 - Hyperosmolality and hypernatremia SNOMED: 81034541 (7) Osteomyelitis of ankle or foot, left, acute ICD Codes: M86.172 - Other acute osteomyelitis, left ankle and foot SNOMED: 792569243 (8) Pneumonia involving left lung ICD Codes: J18.9 - Pneumonia, unspecified organism SNOMED: 287674079 Status: unchanged Status Narrative seems like DPOA is agreeing to amputation now ! Assessment/Plan On q8h Tramadol DC on antibiotics per ID recs via PICC Problems with disposition CM & DPOA are in contact (1) Osteomyelitis of ankle or foot, left, acute Assessment & Plan: on chronic, with worsening osteomyelitis due to poor circulation in the left leg, will continue wide spectrum antibiotics coverage with vancomycin and Zosyn , I had detailed discussion with the conservative palmira whitleyeres regarding the patient condition and the need to consider amputation since she is not responding well to antibiotics alone, and we went over the risk and the benefits of the amputation, and she understood that the patient will have bad outcome if she failes the current regimen of antibiotics she is on , which include septic shock with multiorgan failure and . she will think about it . discussed with other consultants (2) Heel ulcer Assessment & Plan: not improving with worsening osteomyelitis , she will need amputation for source control , will continue wide spectrum antibiotics pending conservative decision regarding amputation DPOA refuses amputation will arrange PICC and DC planning Per ID recs Conservator left messages and so far can not arrange for bioethics BioEthic consult resume Lovenox for DVT Per ID and Surg GT feeding per order transfuse as needed Subjective ROS Limited/Unobtainable: No Constitutional: Reports: malaise Allergies: Coded Allergies: No Known Allergies (Verified , 01/27/10) Objective Last 24 Hour Vital Signs Date Time Temp Pulse Resp B/P (MAP) Pulse Ox O2 Delivery O2 Flow Rate FiO2 09/02/17 12:00 97.9 84 20 114/84 100 97.9 09/02/17 08:46 81 158/73 09/02/17 08:22 97.9 81 20 158/73 98 Room Air 97.9 09/02/17 04:17 96.7 76 16 144/89 97 96.7 09/02/17 00:00 96.8 76 17 154/61 99 96.8 09/01/17 20:00 97.0 75 17 149/64 92 97.0 09/01/17 16:30 97.6 85 20 128/104 98 97.6 09/01/17 13:55 97.5 Intake and Output 09/01/17 09/02/17 19:00 07:00 Intake Total 320 ml 110.0 ml Output Total 425 ml 350 ml Balance -105 ml -240.0 ml Free Water 50 ml IV Total 110.0 ml Tube Feeding 270 ml Output Urine Total 425 ml 350 ml # Bowel Movements 1 1 Height (Feet): 5 Height (Inches): 5.00 Weight (Pounds): 199 General Appearance: no apparent distress Objective no change GEORGE MONDRAGON Sep 02, 2017 13:16
--- NOTE | 2017-09-02 13:41 | Infectious Diseases Prog Note ---
Assessment/Plan Problems: (1) Osteomyelitis of ankle or foot, left, acute Assessment & Plan: with worsening infection and osteomyelitis , continue vancomycin and Zosyn empiric coverage , she will require amputation for definitive treatment , conservative is aware , had multiple discussion regarding her left foot conditions , she is now trending towards amputation , she is aware that her chance of cure is very low with antibiotics alone , and she failed couple of antibiotics courses in the past already , surgery is following (2) Heel ulcer Assessment & Plan: not improving with worsening osteomyelitis , she will need amputation for source control , continue wide spectrum antibiotics (3) Sepsis Assessment & Plan: due to the above , continue wide spectrum antibiotics pending culture and possible amputations (4) Fever Assessment & Plan: resolved , due to the above , continue wide spectrum antibiotics (5) Diabetes Assessment & Plan: recommend tight glycemic control to keep blood glucose between 100-140 Subjective ROS Limited/Unobtainable: Yes Allergies: Coded Allergies: No Known Allergies (Verified , 01/27/10) Subjective she was sleeping in bed, comfortable, not agitated , no fever or chills , has yellowish dark draining on the left heel wound dressings , with foul smell coming from the heel wound too and some gangrenous changes in the skin with an eschar. Objective Vital Signs Last 24 Hour Vital Signs Date Time Temp Pulse Resp B/P (MAP) Pulse Ox O2 Delivery O2 Flow Rate FiO2 09/02/17 12:00 97.9 84 20 114/84 100 97.9 09/02/17 08:46 81 158/73 09/02/17 08:22 97.9 81 20 158/73 98 Room Air 97.9 09/02/17 04:17 96.7 76 16 144/89 97 96.7 09/02/17 00:00 96.8 76 17 154/61 99 96.8 09/01/17 20:00 97.0 75 17 149/64 92 97.0 09/01/17 16:30 97.6 85 20 128/104 98 97.6 09/01/17 13:55 97.5 Height (Feet): 5 Height (Inches): 5.00 Weight (Pounds): 199 General Appearance: WD/WN, no acute distress HEENT: normocephalic, atraumatic, anicteric, supple, no JVD Respiratory/Chest: normal breath sounds, no respiratory distress, no accessory muscle use, decreased breath sounds Cardiovascular: normal peripheral pulses, normal rate, regular rhythm, no gallop/murmur, no JVD Abdomen: normal bowel sounds, soft, non tender, no organomegaly, non distended , no mass, no scars, other - G tube site looks ok . Extremities: no cyanosis, no clubbing Skin: no rash, no lesions, ulcers - left heel pressure wound and lateral foot wound with granulation at the base and skin necrosis with foul smell . yellowish drainage from the wounds Neurologic/Psychiatric: unresponsiveness Lymphatic: no neck adenopathy, no groin adenopathy Current Medications Medications (Trade) Dose Ordered Sig/Nancy Route PRN Reason Start Time Stop Time Status Last Admin Dose Admin Acetaminophen (Tylenol) 650 mg Q4H PRN GT temp > 100 / mild pain 08/28/17 15:00 09/27/17 14:59 Amlodipine Besylate (Norvasc) 5 mg DAILY GT 08/29/17 14:45 09/28/17 14:44 09/02/17 08:46 Chlorhexidine Gluconate (Jossy-Hex 2%) 1 applic DAILY@2000 TOPIC 08/28/17 20:00 09/27/17 19:59 09/01/17 21:05 Clonidine HCl (Catapres Tab) 0.1 mg Q6H PRN GT For High BP 160 syst 08/28/17 15:00 09/27/17 14:59 08/31/17 20:27 Dextrose (Dextrose 50%) 25 ml STAT PRN IV Hypoglycemia 08/28/17 15:00 09/27/17 14:59 Dextrose (Dextrose 50%) 50 ml STAT PRN IV Hypoglycemia 08/28/17 15:00 09/27/17 14:59 Famotidine (Pepcid) 20 mg BID GT 08/28/17 18:00 09/22/17 08:59 09/02/17 08:46 Hydromorphone HCl (Dilaudid) 0.5 mg Q4H PRN IVP Severe Pain (Pain Scale 7-10) 08/31/17 11:00 09/07/17 10:59 Insulin Aspart (NovoLOG) EVERY 6 HOURS SUBQ 08/28/17 18:00 09/22/17 11:29 09/02/17 12:33 Levetiracetam (Keppra) 500 mg Q12HR GT 08/29/17 21:00 09/28/17 20:59 09/02/17 08:46 Metoclopramide HCl (Reglan) 5 mg Q6HR GT 08/28/17 18:00 09/22/17 00:00 09/02/17 12:27 Ondansetron HCl (Zofran) 4 mg Q6H PRN IVP Nausea & Vomiting 08/28/17 15:00 09/21/17 14:59 Piperacillin Sod/ Tazobactam Sod 3.375 gm/Dextrose 110 ml @ 27.5 mls/hr Q8HR@0000,0800,1600 IVPB 09/01/17 08:00 09/08/17 07:59 09/02/17 08:18 Polyethylene Glycol (Miralax) 17 gm DAILYPRN PRN GT Constipation 08/29/17 15:00 09/28/17 14:59 Tramadol HCl (Ultram) 25 mg Q8HR GT 08/31/17 14:00 09/07/17 13:59 09/02/17 06:17 Vancomycin HCl (Vanco rx to dose) 1 ea DAILY PRN MISC Per rx protocol 08/28/17 15:00 09/27/17 14:59 Vancomycin HCl/ Dextrose 250 ml @ 125 mls/hr Q48H IVPB 09/01/17 06:00 09/06/17 05:59 09/01/17 05:42 Ayala Forman M.D. Sep 02, 2017 13:41
--- NOTE | 2017-09-02 15:15 | Pulmonology Progress Note ---
Assessment/Plan Problems: (1) Sepsis (2) Osteomyelitis of ankle or foot, left, acute (3) G tube feedings (4) Functional quadriplegia (5) Right hemiparesis (6) Diabetes Assessment/Plan looks comfortable continue abx check labs tolerating feeding check cultures dvt prophylaxis symptomatic treatment palliative care is a viable option in this case. dc planning Subjective ROS Limited/Unobtainable: No Constitutional: Reports: no symptoms HEENT: Repors: no symptoms Respiratory: Reports: no symptoms Allergies: Coded Allergies: No Known Allergies (Verified , 01/27/10) Objective Last 24 Hour Vital Signs Date Time Temp Pulse Resp B/P (MAP) Pulse Ox O2 Delivery O2 Flow Rate FiO2 09/02/17 15:03 97.9 09/02/17 12:00 97.9 84 20 114/84 100 97.9 09/02/17 08:46 81 158/73 09/02/17 08:22 97.9 81 20 158/73 98 Room Air 97.9 09/02/17 04:17 96.7 76 16 144/89 97 96.7 09/02/17 00:00 96.8 76 17 154/61 99 96.8 09/01/17 20:00 97.0 75 17 149/64 92 97.0 09/01/17 16:30 97.6 85 20 128/104 98 97.6 Intake and Output 09/01/17 09/02/17 19:00 07:00 Intake Total 320 ml 110.0 ml Output Total 425 ml 350 ml Balance -105 ml -240.0 ml Free Water 50 ml IV Total 110.0 ml Tube Feeding 270 ml Output Urine Total 425 ml 350 ml # Bowel Movements 1 1 Objective General Appearance: WD/WN, no acute distress HEENT: atraumatic Respiratory/Chest: normal breath sounds Abdomen: normal bowel sounds, soft, non tender Extremities: no cyanosis, clubbing, edema Skin: clean dressing on left heal Current Medications Medications (Trade) Dose Ordered Sig/Nancy Route PRN Reason Start Time Stop Time Status Last Admin Dose Admin Acetaminophen (Tylenol) 650 mg Q4H PRN GT temp > 100 / mild pain 08/28/17 15:00 09/27/17 14:59 Amlodipine Besylate (Norvasc) 5 mg DAILY GT 08/29/17 14:45 09/28/17 14:44 09/02/17 08:46 Chlorhexidine Gluconate (Jossy-Hex 2%) 1 applic DAILY@2000 TOPIC 08/28/17 20:00 09/27/17 19:59 09/01/17 21:05 Clonidine HCl (Catapres Tab) 0.1 mg Q6H PRN GT For High BP 160 syst 08/28/17 15:00 09/27/17 14:59 08/31/17 20:27 Dextrose (Dextrose 50%) 25 ml STAT PRN IV Hypoglycemia 08/28/17 15:00 09/27/17 14:59 Dextrose (Dextrose 50%) 50 ml STAT PRN IV Hypoglycemia 08/28/17 15:00 09/27/17 14:59 Famotidine (Pepcid) 20 mg BID GT 08/28/17 18:00 09/22/17 08:59 09/02/17 08:46 Hydromorphone HCl (Dilaudid) 0.5 mg Q4H PRN IVP Severe Pain (Pain Scale 7-10) 08/31/17 11:00 09/07/17 10:59 Insulin Aspart (NovoLOG) EVERY 6 HOURS SUBQ 08/28/17 18:00 09/22/17 11:29 09/02/17 12:33 Levetiracetam (Keppra) 500 mg Q12HR GT 08/29/17 21:00 09/28/17 20:59 09/02/17 08:46 Metoclopramide HCl (Reglan) 5 mg Q6HR GT 08/28/17 18:00 09/22/17 00:00 09/02/17 12:27 Ondansetron HCl (Zofran) 4 mg Q6H PRN IVP Nausea & Vomiting 08/28/17 15:00 09/21/17 14:59 Piperacillin Sod/ Tazobactam Sod 3.375 gm/Dextrose 110 ml @ 27.5 mls/hr Q8HR@0000,0800,1600 IVPB 09/01/17 08:00 09/08/17 07:59 09/02/17 08:18 Polyethylene Glycol (Miralax) 17 gm DAILYPRN PRN GT Constipation 08/29/17 15:00 09/28/17 14:59 Tramadol HCl (Ultram) 25 mg Q8HR GT 08/31/17 14:00 09/07/17 13:59 09/02/17 15:03 Vancomycin HCl (Vanco rx to dose) 1 ea DAILY PRN MISC Per rx protocol 08/28/17 15:00 09/27/17 14:59 Vancomycin HCl/ Dextrose 250 ml @ 125 mls/hr Q48H IVPB 09/01/17 06:00 09/06/17 05:59 09/01/17 05:42 Saira Lazcano MD Sep 02, 2017 15:15
[2017-09-02 16:00] VITALS: BP 133/78
[2017-09-02 20:04] VITALS: BP 165/79
[2017-09-02] MEDS: Dyna-Hex 2% Top Sol 2oz TOPIC SCH (21:06)
[2017-09-03 00:11] VITALS: BP 146/86
[2017-09-03] MEDS: Metoclopramide 10mg/10ml Liq GT SCH ×5 (00:15→22:59)
[2017-09-03] MEDS: Piperacillin/Tazobactam 3.375 GM in D5W 110 ML IVPB SCH ×4 (00:16→23:00)
[2017-09-03] MEDS: NovoLOG Insulin Flexpen SUBQ SCH ×5 (00:18→23:01)
[2017-09-03 03:47] VITALS: BP 153/82
[2017-09-03] MEDS: traMADol 50mg tab GT SCH ×3 (05:52→21:29)
[2017-09-03] MEDS: Vancomycin 1.5 GM/D5W 250ML IVPB SCH (05:53)
[2017-09-03 07:14] LABS: BASOPHILS % (AUTO) 0.7 % (0.0-2.0); EOSINOPHILS % (AUTO) 3.3 % (0.0-3.0); HEMATOCRIT 26.5 % (37.0-47.0); HEMOGLOBIN 8.9 G/DL (12.0-16.0); LYMPHOCYTES % (AUTO) 40.4 % (20.0-45.0); MEAN CORPUSCULAR VOLUME 97 FL (80-99); MONOCYTES % (AUTO) 7.7 % (1.0-10.0); NEUTROPHILS % (AUTO) 47.9 % (45.0-75.0); PLATELET COUNT 210 K/UL (150-450); RED BLOOD COUNT 2.74 M/UL (4.20-5.40); WHITE BLOOD COUNT 6.7 K/UL (4.8-10.8)
[2017-09-03 07:24] LABS: ALANINE AMINOTRANSFERASE 15 U/L (12-78); ALBUMIN 2.3 G/DL (3.4-5.0); ALBUMIN/GLOBULIN RATIO 0.4 (1.0-2.7); ALKALINE PHOSPHATASE 79 U/L (46-116); ANION GAP 10 mmol/L (5-15); ASPARTATE AMINO TRANSFERASE 19 U/L (15-37); BILIRUBIN,TOTAL 0.3 MG/DL (0.2-1.0); BLOOD UREA NITROGEN 26 mg/dL (7-18); CALCIUM 8.8 MG/DL (8.5-10.1); CARBON DIOXIDE 27 MMOL/L (21-32); CHLORIDE 110 MMOL/L (98-107); CREATININE 1.4 MG/DL (0.55-1.30); POTASSIUM 3.4 MMOL/L (3.5-5.1); SODIUM 147 MMOL/L (136-145)
[2017-09-03 07:37] LABS: INR 1.1 (0.9-1.1)
[2017-09-03 08:00] VITALS: BP 152/64
[2017-09-03] MEDS: levETIRAcetam 500mg/5ml Liquid GT SCH ×2 (10:00→20:26)
[2017-09-03 12:00] VITALS: BP 139/73
--- NOTE | 2017-09-03 14:28 | Infectious Diseases Prog Note ---
Assessment/Plan Problems: (1) Osteomyelitis of ankle or foot, left, acute Assessment & Plan: with worsening infection and osteomyelitis , continue vancomycin and Zosyn empiric coverage , she will require amputation for definitive treatment , conservative is aware , had multiple discussion with her regarding her left foot conditions , she is aware that her chance of cure is very low with antibiotics alone , and she failed couple of antibiotics courses in the past already , surgery is following (2) Heel ulcer Assessment & Plan: not improving with worsening osteomyelitis , she will need amputation for source control , continue wide spectrum antibiotics (3) Sepsis Assessment & Plan: due to the above , continue wide spectrum antibiotics pending culture and possible amputations (4) Fever Assessment & Plan: resolved , due to the above , continue wide spectrum antibiotics (5) Diabetes Assessment & Plan: recommend tight glycemic control to keep blood glucose between 100-140 Subjective ROS Limited/Unobtainable: Yes Allergies: Coded Allergies: No Known Allergies (Verified , 01/27/10) Subjective she was sleeping in bed, comfortable, had no fever or chills , has yellowish dark draining on the left heel wound dressings , with foul smell coming from the heel wound too . Objective Vital Signs Last 24 Hour Vital Signs Date Time Temp Pulse Resp B/P (MAP) Pulse Ox O2 Delivery O2 Flow Rate FiO2 09/03/17 12:00 98.2 90 15 139/73 98.2 09/03/17 10:01 68 152/64 09/03/17 08:00 97.0 68 16 152/64 98 97.0 09/03/17 03:47 97.7 84 20 153/82 99 Room Air 97.7 09/03/17 00:11 98.2 85 20 146/86 92 Room Air 98.2 09/02/17 21:19 165/79 09/02/17 20:04 98.4 95 20 165/79 92 Room Air 98.4 09/02/17 16:00 98.1 84 20 133/78 97 98.1 09/02/17 16:00 Room Air 09/02/17 15:03 97.9 Height (Feet): 5 Height (Inches): 5.00 Weight (Pounds): 189 General Appearance: WD/WN, no acute distress HEENT: normocephalic, atraumatic, anicteric, mucous membranes moist, PERRL Respiratory/Chest: chest wall non-tender, lungs clear, normal breath sounds, no respiratory distress, no accessory muscle use Cardiovascular: normal peripheral pulses, normal rate, regular rhythm, no gallop/murmur, no JVD Abdomen: normal bowel sounds, soft, non tender, no organomegaly, non distended , no mass, no scars Genitourinary: normal external genitalia Extremities: no cyanosis, no clubbing Skin: no rash, no lesions, ulcers - on the left heel and left lateral foot , with foul smell Neurologic/Psychiatric: unresponsiveness Laboratory Tests Test 09/03/17 05:02 White Blood Count 6.7 K/UL (4.8-10.8) Red Blood Count 2.74 M/UL (4.20-5.40) L Hemoglobin 8.9 G/DL (12.0-16.0) L Hematocrit 26.5 % (37.0-47.0) L Mean Corpuscular Volume 97 FL (80-99) Mean Corpuscular Hemoglobin 32.5 PG (27.0-31.0) H Mean Corpuscular Hemoglobin Concent 33.5 G/DL (32.0-36.0) Red Cell Distribution Width 14.0 % (11.6-14.8) Platelet Count 210 K/UL (150-450) Mean Platelet Volume 7.9 FL (6.5-10.1) Neutrophils (%) (Auto) 47.9 % (45.0-75.0) Lymphocytes (%) (Auto) 40.4 % (20.0-45.0) Monocytes (%) (Auto) 7.7 % (1.0-10.0) Eosinophils (%) (Auto) 3.3 % (0.0-3.0) H Basophils (%) (Auto) 0.7 % (0.0-2.0) Prothrombin Time 11.4 SEC (9.30-11.50) Prothromb Time International Ratio 1.1 (0.9-1.1) Activated Partial Thromboplast Time 28 SEC (23-33) Sodium Level 147 MMOL/L (136-145) H Potassium Level 3.4 MMOL/L (3.5-5.1) L Chloride Level 110 MMOL/L (98-107) H Carbon Dioxide Level 27 MMOL/L (21-32) Anion Gap 10 mmol/L (5-15) Blood Urea Nitrogen 26 mg/dL (7-18) H Creatinine 1.4 MG/DL (0.55-1.30) H Estimat Glomerular Filtration Rate mL/min (>60) Glucose Level 154 MG/DL (74-106) H Calcium Level 8.8 MG/DL (8.5-10.1) Total Bilirubin 0.3 MG/DL (0.2-1.0) Aspartate Amino Transf (AST/SGOT) 19 U/L (15-37) Alanine Aminotransferase (ALT/SGPT) 15 U/L (12-78) Alkaline Phosphatase 79 U/L (46-116) C-Reactive Protein, Quantitative 7.1 mg/dL (0.00-0.90) H Pro-B-Type Natriuretic Peptide 1049 pg/mL (0-125) H Total Protein 8.3 G/DL (6.4-8.2) H Albumin 2.3 G/DL (3.4-5.0) L Globulin 6.0 g/dL Albumin/Globulin Ratio 0.4 (1.0-2.7) L Current Medications Medications (Trade) Dose Ordered Sig/Nancy Route PRN Reason Start Time Stop Time Status Last Admin Dose Admin Acetaminophen (Tylenol) 650 mg Q4H PRN GT temp > 100 / mild pain 08/28/17 15:00 09/27/17 14:59 Amlodipine Besylate (Norvasc) 5 mg DAILY GT 08/29/17 14:45 09/28/17 14:44 09/03/17 10:01 Chlorhexidine Gluconate (Jossy-Hex 2%) 1 applic DAILY@1999 TOPIC 08/28/17 20:00 09/27/17 19:59 09/02/17 21:06 Clonidine HCl (Catapres Tab) 0.1 mg Q6H PRN GT For High BP 160 syst 08/28/17 15:00 09/27/17 14:59 09/02/17 21:19 Dextrose (Dextrose 50%) 25 ml STAT PRN IV Hypoglycemia 08/28/17 15:00 09/27/17 14:59 Dextrose (Dextrose 50%) 50 ml STAT PRN IV Hypoglycemia 08/28/17 15:00 09/27/17 14:59 Famotidine (Pepcid) 20 mg BID GT 08/28/17 18:00 09/22/17 08:59 09/03/17 10:00 Hydromorphone HCl (Dilaudid) 0.5 mg Q4H PRN IVP Severe Pain (Pain Scale 7-10) 08/31/17 11:00 09/07/17 10:59 Insulin Aspart (NovoLOG) EVERY 6 HOURS SUBQ 08/28/17 18:00 09/22/17 11:29 09/03/17 12:13 Levetiracetam (Keppra) 500 mg Q12HR GT 08/29/17 21:00 09/28/17 20:59 09/03/17 10:00 Metoclopramide HCl (Reglan) 5 mg Q6HR GT 08/28/17 18:00 09/22/17 00:00 09/03/17 05:52 Ondansetron HCl (Zofran) 4 mg Q6H PRN IVP Nausea & Vomiting 08/28/17 15:00 09/21/17 14:59 Piperacillin Sod/ Tazobactam Sod 3.375 gm/Dextrose 110 ml @ 27.5 mls/hr Q8HR@0000,0800,1600 IVPB 09/01/17 08:00 09/08/17 07:59 09/03/17 10:01 Polyethylene Glycol (Miralax) 17 gm DAILYPRN PRN GT Constipation 08/29/17 15:00 09/28/17 14:59 Tramadol HCl (Ultram) 25 mg Q8HR GT 08/31/17 14:00 09/07/17 13:59 09/03/17 05:52 Vancomycin HCl (Vanco rx to dose) 1 ea DAILY PRN MISC Per rx protocol 08/28/17 15:00 09/27/17 14:59 Vancomycin HCl/ Dextrose 250 ml @ 125 mls/hr Q48H IVPB 09/01/17 06:00 09/06/17 05:59 09/03/17 05:53 Ayala Forman M.D. September 03, 2017 14:28
--- NOTE | 2017-09-03 14:51 | General Progress Note ---
Assessment/Plan Problem List: (1) UTI (urinary tract infection) (2) Sepsis ICD Codes: A41.9 - Sepsis, unspecified organism SNOMED: 73958574 (3) DVT (deep vein thrombosis) in ICD Codes: O22.30 - Deep phlebothrombosis in , unspecified trimester; I82.409 - Acute embolism and thrombosis of unspecified deep veins of unspecified lower extremity SNOMED: 63113958 (4) Diabetes ICD Codes: E11.9 - Type 2 diabetes mellitus without complications SNOMED: 96878967 (5) Anemia ICD Codes: D64.9 - Anemia, unspecified SNOMED: 503886444 Qualifiers: Qualified Codes: D64.9 - Anemia, unspecified (6) Hypernatremia ICD Codes: E87.0 - Hyperosmolality and hypernatremia SNOMED: 04116900 (7) Osteomyelitis of ankle or foot, left, acute ICD Codes: M86.172 - Other acute osteomyelitis, left ankle and foot SNOMED: 566544684 (8) Pneumonia involving left lung ICD Codes: J18.9 - Pneumonia, unspecified organism SNOMED: 177859091 Status: unchanged Status Narrative DC vs Amputation - placement problem- - Consent problem Assessment/Plan start D5W 50 cc h On q8h Tramadol DC on antibiotics per ID recs via PICC Problems with disposition CM & DPOA are in contact (1) Osteomyelitis of ankle or foot, left, acute Assessment & Plan: on chronic, with worsening osteomyelitis due to poor circulation in the left leg, will continue wide spectrum antibiotics coverage with vancomycin and Zosyn , I had detailed discussion with the jaison whitleyeres regarding the patient condition and the need to consider amputation since she is not responding well to antibiotics alone, and we went over the risk and the benefits of the amputation, and she understood that the patient will have bad outcome if she failes the current regimen of antibiotics she is on , which include septic shock with multiorgan failure and . she will think about it . discussed with other consultants (2) Heel ulcer Assessment & Plan: not improving with worsening osteomyelitis , she will need amputation for source control , will continue wide spectrum antibiotics pending conservative decision regarding amputation DPOA refuses amputation will arrange PICC and DC planning Per ID recs Conservator left messages and so far can not arrange for bioethics BioEth[employer] consult resume Lovenox for DVT Per ID and Surg GT feeding per order transfuse as needed Subjective ROS Limited/Unobtainable: No Constitutional: Reports: malaise, weakness Allergies: Coded Allergies: No Known Allergies (Verified , 01/27/10) Objective Last 24 Hour Vital Signs Date Time Temp Pulse Resp B/P (MAP) Pulse Ox O2 Delivery O2 Flow Rate FiO2 09/03/17 12:00 98.2 90 15 139/73 98.2 09/03/17 10:01 68 152/64 09/03/17 08:00 97.0 68 16 152/64 98 97.0 09/03/17 03:47 97.7 84 20 153/82 99 Room Air 97.7 09/03/17 00:11 98.2 85 20 146/86 92 Room Air 98.2 09/02/17 21:19 165/79 09/02/17 20:04 98.4 95 20 165/79 92 Room Air 98.4 09/02/17 16:00 98.1 84 20 133/78 97 98.1 09/02/17 16:00 Room Air 09/02/17 15:03 97.9 Intake and Output 09/02/17 09/03/17 19:00 07:00 Intake Total 517.5 ml 720.0 ml Output Total 700 ml 850 ml Balance -182.5 ml -130.0 ml Free Water 100 ml 180 ml IV Total 27.5 ml 180.0 ml Tube Feeding 390 ml 360 ml Output Urine Total 700 ml 850 ml # Bowel Movements 2 Laboratory Tests 09/03/17 05:02: White Blood Count 6.7, Red Blood Count 2.74L, Hemoglobin 8.9L, Hematocrit 26.5L , Mean Corpuscular Volume 97, Mean Corpuscular Hemoglobin 32.5H, Mean Corpuscular Hemoglobin Concent 33.5, Red Cell Distribution Width 14.0, Platelet Count 210, Mean Platelet Volume 7.9, Neutrophils (%) (Auto) 47.9, Lymphocytes (% ) (Auto) 40.4, Monocytes (%) (Auto) 7.7, Eosinophils (%) (Auto) 3.3H, Basophils (%) (Auto) 0.7, Prothrombin Time 11.4, Prothromb Time International Ratio 1.1, Activated Partial Thromboplast Time 28, Sodium Level 147H, Potassium Level 3.4L , Chloride Level 110H, Carbon Dioxide Level 27, Anion Gap 10, Blood Urea Nitrogen 26H, Creatinine 1.4H, Estimat Glomerular Filtration Rate , Glucose Level 154H, Calcium Level 8.8, Total Bilirubin 0.3, Aspartate Amino Transf (AST/ SGOT) 19, Alanine Aminotransferase (ALT/SGPT) 15, Alkaline Phosphatase 79, C- Reactive Protein, Quantitative 7.1H, Pro-B-Type Natriuretic Peptide 1049H, Total Protein 8.3H, Albumin 2.3L, Globulin 6.0, Albumin/Globulin Ratio 0.4L Height (Feet): 5 Height (Inches): 5.00 Weight (Pounds): 189 General Appearance: no apparent distress Respiratory/Chest: decreased breath sounds Abdomen: soft Objective no change GEORGE MONDRAGON September 03, 2017 14:51
--- NOTE | 2017-09-03 15:14 | Pulmonology Progress Note ---
Assessment/Plan Problems: (1) Sepsis (2) Osteomyelitis of ankle or foot, left, acute (3) G tube feedings (4) Functional quadriplegia (5) Right hemiparesis (6) Diabetes Assessment/Plan looks comfortable continue abx check labs tolerating feeding check cultures dvt prophylaxis symptomatic treatment palliative care is a viable option in this case. dc planning in progress Subjective ROS Limited/Unobtainable: No Constitutional: Reports: no symptoms HEENT: Repors: no symptoms Respiratory: Reports: no symptoms Allergies: Coded Allergies: No Known Allergies (Verified , 01/27/10) Objective Last 24 Hour Vital Signs Date Time Temp Pulse Resp B/P (MAP) Pulse Ox O2 Delivery O2 Flow Rate FiO2 09/03/17 15:00 98.2 09/03/17 12:00 98.2 90 15 139/73 98.2 09/03/17 10:01 68 152/64 09/03/17 08:00 97.0 68 16 152/64 98 97.0 09/03/17 03:47 97.7 84 20 153/82 99 Room Air 97.7 09/03/17 00:11 98.2 85 20 146/86 92 Room Air 98.2 09/02/17 21:19 165/79 09/02/17 20:04 98.4 95 20 165/79 92 Room Air 98.4 09/02/17 16:00 98.1 84 20 133/78 97 98.1 09/02/17 16:00 Room Air Intake and Output 09/02/17 09/03/17 19:00 07:00 Intake Total 517.5 ml 720.0 ml Output Total 700 ml 850 ml Balance -182.5 ml -130.0 ml Free Water 100 ml 180 ml IV Total 27.5 ml 180.0 ml Tube Feeding 390 ml 360 ml Output Urine Total 700 ml 850 ml # Bowel Movements 2 Objective General Appearance: WD/WN, no acute distress HEENT: atraumatic Respiratory/Chest: normal breath sounds Abdomen: normal bowel sounds, soft, non tender Extremities: no cyanosis, clubbing, edema Skin: clean dressing on left heal Laboratory Tests 09/03/17 05:02: White Blood Count 6.7, Red Blood Count 2.74L, Hemoglobin 8.9L, Hematocrit 26.5L , Mean Corpuscular Volume 97, Mean Corpuscular Hemoglobin 32.5H, Mean Corpuscular Hemoglobin Concent 33.5, Red Cell Distribution Width 14.0, Platelet Count 210, Mean Platelet Volume 7.9, Neutrophils (%) (Auto) 47.9, Lymphocytes (% ) (Auto) 40.4, Monocytes (%) (Auto) 7.7, Eosinophils (%) (Auto) 3.3H, Basophils (%) (Auto) 0.7, Prothrombin Time 11.4, Prothromb Time International Ratio 1.1, Activated Partial Thromboplast Time 28, Sodium Level 147H, Potassium Level 3.4L , Chloride Level 110H, Carbon Dioxide Level 27, Anion Gap 10, Blood Urea Nitrogen 26H, Creatinine 1.4H, Estimat Glomerular Filtration Rate , Glucose Level 154H, Calcium Level 8.8, Total Bilirubin 0.3, Aspartate Amino Transf (AST/ SGOT) 19, Alanine Aminotransferase (ALT/SGPT) 15, Alkaline Phosphatase 79, C- Reactive Protein, Quantitative 7.1H, Pro-B-Type Natriuretic Peptide 1049H, Total Protein 8.3H, Albumin 2.3L, Globulin 6.0, Albumin/Globulin Ratio 0.4L Current Medications Medications (Trade) Dose Ordered Sig/Nancy Route PRN Reason Start Time Stop Time Status Last Admin Dose Admin Acetaminophen (Tylenol) 650 mg Q4H PRN GT temp > 100 / mild pain 08/28/17 15:00 09/27/17 14:59 Amlodipine Besylate (Norvasc) 5 mg DAILY GT 08/29/17 14:45 09/28/17 14:44 09/03/17 10:01 Chlorhexidine Gluconate (Jossy-Hex 2%) 1 applic DAILY@1999 TOPIC 08/28/17 20:00 09/27/17 19:59 09/02/17 21:06 Clonidine HCl (Catapres Tab) 0.1 mg Q6H PRN GT For High BP 160 syst 08/28/17 15:00 09/27/17 14:59 09/02/17 21:19 Dextrose 1,000 ml @ 50 mls/hr Q20H IV 09/03/17 15:00 10/03/17 14:59 Dextrose (Dextrose 50%) 25 ml STAT PRN IV Hypoglycemia 08/28/17 15:00 09/27/17 14:59 Dextrose (Dextrose 50%) 50 ml STAT PRN IV Hypoglycemia 08/28/17 15:00 09/27/17 14:59 Famotidine (Pepcid) 20 mg BID GT 08/28/17 18:00 09/22/17 08:59 09/03/17 10:00 Hydromorphone HCl (Dilaudid) 0.5 mg Q4H PRN IVP Severe Pain (Pain Scale 7-10) 08/31/17 11:00 09/07/17 10:59 Insulin Aspart (NovoLOG) EVERY 6 HOURS SUBQ 08/28/17 18:00 09/22/17 11:29 09/03/17 12:13 Levetiracetam (Keppra) 500 mg Q12HR GT 08/29/17 21:00 09/28/17 20:59 09/03/17 10:00 Metoclopramide HCl (Reglan) 5 mg Q6HR GT 08/28/17 18:00 09/22/17 00:00 09/03/17 05:52 Ondansetron HCl (Zofran) 4 mg Q6H PRN IVP Nausea & Vomiting 08/28/17 15:00 09/21/17 14:59 Piperacillin Sod/ Tazobactam Sod 3.375 gm/Dextrose 110 ml @ 27.5 mls/hr Q8HR@0000,0800,1600 IVPB 09/01/17 08:00 09/08/17 07:59 09/03/17 10:01 Polyethylene Glycol (Miralax) 17 gm DAILYPRN PRN GT Constipation 08/29/17 15:00 09/28/17 14:59 Potassium Chloride (K-Dur) 40 meq ONCE ORAL 09/03/17 15:00 09/03/17 16:30 Tramadol HCl (Ultram) 25 mg Q8HR GT 08/31/17 14:00 09/07/17 13:59 09/03/17 15:00 Vancomycin HCl (Vanco rx to dose) 1 ea DAILY PRN MISC Per rx protocol 08/28/17 15:00 09/27/17 14:59 Vancomycin HCl/ Dextrose 250 ml @ 125 mls/hr Q48H IVPB 09/01/17 06:00 09/06/17 05:59 09/03/17 05:53 Saira Lazcano MD September 03, 2017 15:14
[2017-09-03 16:00] VITALS: BP 158/67
[2017-09-03 20:00] VITALS: BP 125/85
[2017-09-03] MEDS: Dyna-Hex 2% Top Sol 2oz TOPIC SCH (20:26)
[2017-09-04] VITALS (10 sets, daily range): BP systolic 130–184; BP diastolic 76–92
[2017-09-04] MEDS: Metoclopramide 10mg/10ml Liq GT SCH ×4 (05:27→23:41)
[2017-09-04] MEDS: NovoLOG Insulin Flexpen SUBQ SCH ×4 (05:28→23:48)
[2017-09-04] MEDS: traMADol 50mg tab GT SCH ×4 (05:28→23:41)
[2017-09-04] MEDS: levETIRAcetam 500mg/5ml Liquid GT SCH ×2 (08:45→20:30)
[2017-09-04] MEDS: Piperacillin/Tazobactam 3.375 GM in D5W 110 ML IVPB SCH ×3 (08:46→23:40)
--- NOTE | 2017-09-04 10:04 | Pre-Procedure Note/Attestation ---
Pre-Procedure Note/Attestation Complete Prior to Procedure Planned Procedure: left Procedure Narrative: left above knee amputation Indications for Procedure Pre-Operative Diagnosis: infected gangrenous left lower extremity Attestation I attest that I discussed the nature of the procedure; its benefits; risks and complications; and alternatives (and the risks and benefits of such alternatives ), prior to the procedure, with the patient (or the patient's legal member service representative). I attest that, if there was a reasonable possibility of needing a blood transfusion, the patient (or the patient's legal member service representative) was given the [facility] standardized written summary, pursuant to the [employer] Blood Safety Act ([place] Health and Safety Code # 1645, as amended). I attest that I re-evaluated the patient just prior to the surgery and that there has been no change in the patient's H&P, except as documented below: Taco Carter September 04, 2017 10:04
[2017-09-04] MEDS ORDERED: NS Irrig 1000ml ONE (12:00)
[2017-09-04] MEDS ORDERED: LR 1000ml ONE (12:00)
[2017-09-04] MEDS ORDERED: Sterile Water Irrig 1000ml IRRIG ONE (12:00)
[2017-09-04] MEDS ORDERED: Propofol 200mg/20ml IV ONE (12:41)
[2017-09-04] MEDS ORDERED: fentaNYL 100 mcg/2 mL IV ONE ×2 (12:41→12:52)
[2017-09-04] MEDS ORDERED: Midazolam 2mg/2ml Inj ONE (12:42)
[2017-09-04] MEDS ORDERED: Glycopyrrolate 0.2mg/ml 1ml Vial ONE (12:55)
[2017-09-04] MEDS ORDERED: Metoclopramide 10mg/2ml Inj ONE (12:55)
[2017-09-04] MEDS ORDERED: Ketorolac 30mg Inj ONE (12:55)
[2017-09-04] MEDS ORDERED: Dexamethasone 4mg/ml vial ONE (12:55)
[2017-09-04] MEDS ORDERED: Lidocaine 1% MPF 10mg/ml 5ml ONE (13:02)
[2017-09-04] MEDS ORDERED: Meperidine 50mg/ml Inj(FOR RIGORS ONLY) ONE (13:03)
--- NOTE | 2017-09-04 13:05 | Anethesia Preoperative Eval ---
Anesthesia Pre-op PMH/ROS General Date of Evaluation: September 04, 2017 Time of Evaluation: 12:00 Anesthesiologist: Shelby ASA Score: ASA 2 Mallampati Score Class I : Soft palate, uvula, fauces, pillars visible Class II: Soft palate, uvula, fauces visible Class III: Soft palate, base of uvula visible Class IV: Only hard plate visible Mallampati Classification: Class II Surgeon: Davin Diagnosis: Celuliiis Left Leg Surgical Procedure: Left AKA Anesthesia History: none Family History: no anesthesia problems Allergies: Coded Allergies: No Known Allergies (Verified , 01/27/10) Medications: see eMAR Anesthesia Pre-op Phys. Exam Physician Exam Last Vital Signs Date Time Temp Pulse Resp B/P (MAP) Pulse Ox O2 Delivery O2 Flow Rate FiO2 09/04/17 08:45 75 158/87 09/04/17 08:00 97.5 16 97.5 09/04/17 04:00 95 09/03/17 03:47 Room Air 08/27/17 23:28 21 Constitutional: NAD Neurologic: CN 2-12 intact Cardiovascular: RRR Respiratory: CTA Gastrointestinal: S/NT/ND Airway Exam Mallampati Score: Class II MO: full ROM: full Teeth: intact Anesthesia Pre-op A/P Risk Assessment & Plan Plan: GA Status Change Before Surgery: No Pre-Antibiotics Given Within 1 Hr of Incision: Deng Matta M.D. September 04, 2017 13:05
--- NOTE | 2017-09-04 13:07 | Immediate Post-Op Evaluation ---
Immediate Post-Op Evalulation Immediate Post-Op Evalulation Procedure: Left AKA Date of Evaluation: September 04, 2017 Time of Evaluation: 15:00 IV Fluids: 1000 Blood Products: 0 Estimated Blood Loss: 50 Urinary Output: 0 Blood Pressure Systolic: 151 Blood Pressure Diastolic: 63 Pulse Rate: 80 Respiratory Rate: 19 O2 Sat by Pulse Oximetry: 99 Temperature (Fahrenheit): 98 Pain Score (1-10): 0 Nausea: No Vomiting: No Patient Status: awake, reacts, patent, extubated Hydration Status: adequate Given Within 1 Hr of Incision: Deng Matta M.D. September 04, 2017 13:07
[2017-09-04] MEDS ORDERED: Ketorolac 30mg Inj IV PRN (13:15)
[2017-09-04] MEDS ORDERED: Midazolam 2mg/2ml Inj IVP PRN (13:15)
[2017-09-04] MEDS ORDERED: DiphenhydrAMINE 50mg/ml Inj IVP PRN (13:15)
[2017-09-04] MEDS ORDERED: Acetaminophen (Non formulary) 100 ML IV ONE (13:15)
--- NOTE | 2017-09-04 14:55 | Pulmonology Progress Note ---
Assessment/Plan Problems: (1) Sepsis (2) Osteomyelitis of ankle or foot, left, acute (3) G tube feedings (4) Functional quadriplegia (5) Right hemiparesis (6) Diabetes Assessment/Plan tolerated surgery looks comfortable continue abx check labs tolerating feeding check cultures dvt prophylaxis wound care Subjective ROS Limited/Unobtainable: No Interval Events: had AKA today, doing ok Constitutional: Reports: no symptoms Allergies: Coded Allergies: No Known Allergies (Verified , 01/27/10) Objective Last 24 Hour Vital Signs Date Time Temp Pulse Resp B/P (MAP) Pulse Ox O2 Delivery O2 Flow Rate FiO2 09/04/17 14:30 80 22 159/79 100 Nasal Cannula 3.0 09/04/17 14:25 80 24 184/79 100 Simple Mask 8.0 09/04/17 14:00 78 24 155/76 97 Simple Mask 10.0 09/04/17 13:55 77 23 155/76 99 Simple Mask 10.0 09/04/17 13:50 99.0 75 18 155/76 100 Simple Mask 10.0 99.0 09/04/17 13:07 208.4 80 19 99 09/04/17 08:45 75 158/87 09/04/17 08:00 97.5 75 16 158/87 97.5 09/04/17 06:27 98.2 09/04/17 05:28 98.2 09/04/17 04:00 98.2 94 19 146/92 95 98.2 09/04/17 00:29 98.4 107 18 130/83 96 98.4 09/03/17 21:29 97.8 09/03/17 20:00 98.2 108 19 125/85 96 98.2 09/03/17 16:00 97.8 91 20 158/67 97.8 09/03/17 15:00 98.2 Intake and Output 09/03/17 09/04/17 19:00 07:00 Intake Total 580 ml 450 ml Output Total 300 ml 650 ml Balance 280 ml -200 ml Free Water 220 ml IV Total 300 ml Tube Feeding 360 ml 150 ml Output Urine Total 300 ml 650 ml # Voids 1 # Bowel Movements 2 2 Objective General Appearance: WD/WN, no acute distress HEENT: atraumatic Respiratory/Chest: normal breath sounds Abdomen: normal bowel sounds, soft, non tender Extremities: no cyanosis, AKA Current Medications Medications (Trade) Dose Ordered Sig/Nancy Route PRN Reason Start Time Stop Time Status Last Admin Dose Admin Acetaminophen (Tylenol) 650 mg Q4H PRN GT temp > 100 / mild pain 08/28/17 15:00 09/27/17 14:59 Amlodipine Besylate (Norvasc) 5 mg DAILY GT 08/29/17 14:45 09/28/17 14:44 09/04/17 08:45 Chlorhexidine Gluconate (Jossy-Hex 2%) 1 applic DAILY@2000 TOPIC 08/28/17 20:00 09/27/17 19:59 09/03/17 20:26 Clonidine HCl (Catapres Tab) 0.1 mg Q6H PRN GT For High BP 160 syst 08/28/17 15:00 09/27/17 14:59 09/02/17 21:19 Dextrose 1,000 ml @ 50 mls/hr Q20H IV 09/03/17 15:00 10/03/17 14:59 09/03/17 15:23 Dextrose (Dextrose 50%) 25 ml STAT PRN IV Hypoglycemia 08/28/17 15:00 09/27/17 14:59 Dextrose (Dextrose 50%) 50 ml STAT PRN IV Hypoglycemia 08/28/17 15:00 09/27/17 14:59 Diphenhydramine HCl (Benadryl) 25 mg Q15M PRN IVP Itching 09/04/17 13:15 09/04/17 20:00 Famotidine (Pepcid) 20 mg BID GT 08/28/17 18:00 09/22/17 08:59 09/04/17 08:45 Hydralazine HCl (Apresoline) 5 mg Q30M PRN IV SBP>160 /DBP>90 09/04/17 13:15 09/04/17 20:00 Hydromorphone HCl (Dilaudid) 0.5 mg Q4H PRN IVP Severe Pain (Pain Scale 7-10) 08/31/17 11:00 09/07/17 10:59 Insulin Aspart (NovoLOG) EVERY 6 HOURS SUBQ 08/28/17 18:00 09/22/17 11:29 09/03/17 18:23 Ketorolac Tromethamine (Toradol 30mg) 30 mg Q1H PRN IV Severe Breakthru Pain (>7) 09/04/17 13:15 09/04/17 20:00 Levetiracetam (Keppra) 500 mg Q12HR GT 08/29/17 21:00 09/28/17 20:59 09/04/17 08:45 Metoclopramide HCl (Reglan) 5 mg Q6HR GT 08/28/17 18:00 09/22/17 00:00 09/03/17 05:52 Midazolam HCl (Versed 2mg/2ml vial) 1 mg Q15M PRN IVP For Anxiety 09/04/17 13:15 09/04/17 20:00 Ondansetron HCl (Zofran) 4 mg Q1H PRN IVP Nausea & Vomiting 09/04/17 13:15 09/04/17 20:00 Ondansetron HCl (Zofran) 4 mg Q6H PRN IVP Nausea & Vomiting 08/28/17 15:00 09/21/17 14:59 Piperacillin Sod/ Tazobactam Sod 3.375 gm/Dextrose 110 ml @ 27.5 mls/hr Q8HR@0000,0800,1600 IVPB 09/01/17 08:00 09/08/17 07:59 09/04/17 08:46 Polyethylene Glycol (Miralax) 17 gm DAILYPRN PRN GT Constipation 08/29/17 15:00 09/28/17 14:59 Sodium Chloride 1,000 ml @ 10 mls/hr Q24H IVLG 09/04/17 13:01 09/04/17 15:00 Tramadol HCl (Ultram) 25 mg Q8HR GT 08/31/17 14:00 09/07/17 13:59 09/04/17 05:28 Vancomycin HCl (Vanco rx to dose) 1 ea DAILY PRN MISC Per rx protocol 08/28/17 15:00 09/27/17 14:59 Vancomycin HCl/ Dextrose 250 ml @ 125 mls/hr Q48H IVPB 09/01/17 06:00 09/06/17 05:59 09/03/17 05:53 Saira Lazcano MD September 04, 2017 14:55
--- NOTE | 2017-09-04 15:41 | General Progress Note ---
Assessment/Plan Problem List: (1) UTI (urinary tract infection) (2) Sepsis ICD Codes: A41.9 - Sepsis, unspecified organism SNOMED: 93048560 (3) DVT (deep vein thrombosis) in ICD Codes: O22.30 - Deep phlebothrombosis in , unspecified trimester; I82.409 - Acute embolism and thrombosis of unspecified deep veins of unspecified lower extremity SNOMED: 18860005 (4) Diabetes ICD Codes: E11.9 - Type 2 diabetes mellitus without complications SNOMED: 20290579 (5) Anemia ICD Codes: D64.9 - Anemia, unspecified SNOMED: 093543987 Qualifiers: Qualified Codes: D64.9 - Anemia, unspecified (6) Hypernatremia ICD Codes: E87.0 - Hyperosmolality and hypernatremia SNOMED: 71508302 (7) Osteomyelitis of ankle or foot, left, acute ICD Codes: M86.172 - Other acute osteomyelitis, left ankle and foot SNOMED: 528516344 (8) Pneumonia involving left lung ICD Codes: J18.9 - Pneumonia, unspecified organism SNOMED: 778670328 Status: unchanged Status Narrative due amputation today Assessment/Plan Post amputation management On Tramadol Antibiotic management per ID CM & DPOA are in contact (1) Osteomyelitis of ankle or foot, left, acute Assessment & Plan: on chronic, with worsening osteomyelitis due to poor circulation in the left leg, will continue wide spectrum antibiotics coverage with vancomycin and Zosyn , I had detailed discussion with the conservative palmira whitleyeres regarding the patient condition and the need to consider amputation since she is not responding well to antibiotics alone, and we went over the risk and the benefits of the amputation, and she understood that the patient will have bad outcome if she failes the current regimen of antibiotics she is on , which include septic shock with multiorgan failure and . she will think about it . discussed with other consultants (2) Heel ulcer Assessment & Plan: not improving with worsening osteomyelitis , she will need amputation for source control , will continue wide spectrum antibiotics pending conservative decision regarding amputation DPOA refuses amputation will arrange PICC and DC planning Per ID recs Conservator left messages and so far can not arrange for bioethics BioEth[employer] consult resume Lovenox for DVT Per ID and Surg GT feeding per order transfuse as needed Subjective ROS Limited/Unobtainable: No Constitutional: Reports: malaise Allergies: Coded Allergies: No Known Allergies (Verified , 01/27/10) Objective Last 24 Hour Vital Signs Date Time Temp Pulse Resp B/P (MAP) Pulse Ox O2 Delivery O2 Flow Rate FiO2 09/04/17 14:30 80 22 159/79 100 Nasal Cannula 3.0 09/04/17 14:25 80 24 184/79 100 Simple Mask 8.0 09/04/17 14:00 78 24 155/76 97 Simple Mask 10.0 09/04/17 13:55 77 23 155/76 99 Simple Mask 10.0 09/04/17 13:50 99.0 75 18 155/76 100 Simple Mask 10.0 99.0 09/04/17 13:07 208.4 80 19 99 09/04/17 08:45 75 158/87 09/04/17 08:00 97.5 75 16 158/87 97.5 09/04/17 06:27 98.2 09/04/17 05:28 98.2 09/04/17 04:00 98.2 94 19 146/92 95 98.2 09/04/17 00:29 98.4 107 18 130/83 96 98.4 09/03/17 21:29 97.8 09/03/17 20:00 98.2 108 19 125/85 96 98.2 09/03/17 16:00 97.8 91 20 158/67 97.8 Intake and Output 09/03/17 09/04/17 19:00 07:00 Intake Total 580 ml 450 ml Output Total 300 ml 650 ml Balance 280 ml -200 ml Free Water 220 ml IV Total 300 ml Tube Feeding 360 ml 150 ml Output Urine Total 300 ml 650 ml # Voids 1 # Bowel Movements 2 2 Height (Feet): 5 Height (Inches): 4.00 Weight (Pounds): 199 General Appearance: no apparent distress Objective no change GEORGE MONDRAGON September 04, 2017 15:41
--- NOTE | 2017-09-04 16:32 | Brief Operative Note ---
Immediate Post Operative Note Operative Note Pre-op Diagnosis: infected gangrenous left lower extremity Procedure: left above knee amputation Post-op Diagnosis: same as pre-op Surgeon: jose l Anesthesiologist: Colleen Anesthesia: general Specimen: yes - left aka Complications: none Condition: stable Fluids: see records Estimated Blood Loss: minimal Drains: none Implant(s) used?: No Taco Carter September 04, 2017 16:32
--- NOTE | 2017-09-04 19:45 | Operative Note - Dictated ---
DATE OF OPERATION: 09/04/2017 PREOPERATIVE DIAGNOSIS: Left lower extremity osteomyelitis with infection and gangrene, refractory to medical therapy. POSTOPERATIVE DIAGNOSIS: Left lower extremity osteomyelitis with infection and gangrene, refractory to medical therapy. OPERATION PERFORMED: Left above-knee amputation. ATTENDING SURGEON: Taco Crater M.D. VACUUM CONDITIONER OPERATOR: None. ANESTHESIOLOGIST: Deng Ryan M.D. ANESTHESIA: General CORE STRIPPER. ESTIMATED BLOOD LOSS: 50 mL. IV FLUIDS: Please see anesthesia records. ANTIBIOTICS: The patient on scheduled IV antibiotics for acute active inflammatory process. SPECIMENS: Left above-knee amputation. DRAINS: None. COMPLICATIONS: None. WOUND CLASSIFICATION: Class IV. COUNTS: Sponge and needle count correct x2. INDICATIONS FOR PROCEDURE: This is an 82-year-old female, who was initially seen few months ago for evaluation of a left lower extremity heel ulcer and osteomyelitis. The patient was initially attempted with medical management of 6 weeks of antibiotics and wound care. Unfortunately, the patient returned a few weeks after without improvement, progressive osteomyelitis, and given worsening condition and failure of management with maximal medical therapy, amputation was indicated and recommended. At that time, the patient's conservator was not ready to consider the amputation and required more time, which she was given. The patient was continued with maximal medical therapy until recently where she was readmitted for worsening condition at which time, amputation was again recommended and indicated. After some time, the patient's conservator expressed understanding and consented to surgery. Risks, benefits, and alternatives were discussed on multiple occasions in detail with the time being given for second opinions, clarification, and speaking to all medical teams prior to obtaining consent. The procedure was performed today on 09/04/2017. OPERATIVE NOTE: The patient was taken to the operating room and placed on the operating table in supine position with bilateral arms out. All bony prominences were well padded. SCDs were placed. The patient had a Umaña catheter prior to entering the operating room. The patient already had IV antibiotics for acute active inflammatory process for sometime now. Preoperative time-out was taken identifying the patient, procedure, operative staff, and surgical staff. General anesthesia was induced and the patient was intubated. The left lower extremity was prepped and draped in standard surgical fashion circumferentially. An occlusive dressing was applied from the leg tip to the level of the knee. Anterior and posterior skin flaps were lined out with a marking pen 5-10 cm proximal to the knee joint. Skin incision was then performed and deepened through the subcutaneous tissue until the muscular fascia was identified. The greater saphenous vein was identified and ligated using a 2-0 silk tie and then divided. The muscle groups over the anterior and medial thigh were divided with electrocautery at the level of the skin incisions. The neurovascular bundle was identified on the medial aspect of the thigh. The popliteal artery and veins were isolated and suture ligated using #0 silk ties. The sciatic nerve was pulled and ligated with a #0 silk tie and divided. The posterior thigh muscles were then divided with electrocautery. Once the muscle groups were circumferentially divided, the periosteum was incised and elevated approximately 5 to 10 cm proximally off the femur. The femur was divided with an electrical saw. The proximal end of the transected femur was smoothed down with a file. The amputation stump was irrigated with copious amounts of sterile saline solution. Hemostasis was achieved with electrocautery and silk ties as necessary. The fascia of the thigh muscles were then closed with the muscles over the femur using interrupted 2-0 Vicryl sutures. Following this, the skin was reapproximated using 3-0 Vicryl sutures in the dermal fashion followed by closure of the skin incision using skin [place]. Xeroform, 4 x 4, Kerlix along with bandages were placed. The extremity was kept elevated. A postoperative debriefing was performed and the patient was extubated, taken to the postanesthetic care unit in stable condition. Taco Carter M.D. DR: SOCORRO JOB#: [id number] CC:
[2017-09-04] MEDS: Dyna-Hex 2% Top Sol 2oz TOPIC SCH (20:29)
[2017-09-05] VITALS: BP 145/78
[2017-09-05 04:00] VITALS: BP 114/68
[2017-09-05] MEDS: traMADol 50mg tab GT SCH ×3 (05:37→17:23)
[2017-09-05] MEDS: Metoclopramide 10mg/10ml Liq GT SCH ×3 (05:37→17:23)
[2017-09-05] MEDS: NovoLOG Insulin Flexpen SUBQ SCH ×3 (05:42→17:52)
[2017-09-05 05:43] LABS: BASOPHILS % (AUTO) 0.8 % (0.0-2.0); EOSINOPHILS % (AUTO) 2.1 % (0.0-3.0); HEMATOCRIT 30.6 % (37.0-47.0); HEMOGLOBIN 10.5 G/DL (12.0-16.0); LYMPHOCYTES % (AUTO) 37.2 % (20.0-45.0); MEAN CORPUSCULAR VOLUME 95 FL (80-99); MONOCYTES % (AUTO) 8.1 % (1.0-10.0); NEUTROPHILS % (AUTO) 51.7 % (45.0-75.0); PLATELET COUNT 259 K/UL (150-450); RED BLOOD COUNT 3.21 M/UL (4.20-5.40); RED CELL DISTRIBUTION WIDTH 13.9 % (11.6-14.8); WHITE BLOOD COUNT 8.6 K/UL (4.8-10.8)
[2017-09-05 06:06] LABS: PHOSPHORUS 3.3 MG/DL (2.5-4.9)
[2017-09-05 06:08] LABS: ALANINE AMINOTRANSFERASE 18 U/L (12-78); ALBUMIN 2.7 G/DL (3.4-5.0); ALBUMIN/GLOBULIN RATIO 0.4 (1.0-2.7); ALKALINE PHOSPHATASE 90 U/L (46-116); ANION GAP 11 mmol/L (5-15); ASPARTATE AMINO TRANSFERASE 23 U/L (15-37); BILIRUBIN,TOTAL 0.4 MG/DL (0.2-1.0); BLOOD UREA NITROGEN 26 mg/dL (7-18); CALCIUM 9.1 MG/DL (8.5-10.1); CARBON DIOXIDE 25 MMOL/L (21-32); CHLORIDE 104 MMOL/L (98-107); CREATININE 1.8 MG/DL (0.55-1.30); POTASSIUM 3.7 MMOL/L (3.5-5.1); SODIUM 140 MMOL/L (136-145)
[2017-09-05 08:00] VITALS: BP 147/80
--- NOTE | 2017-09-05 08:23 | Infectious Diseases Prog Note ---
Assessment/Plan Problems: (1) Osteomyelitis of ankle or foot, left, acute Assessment & Plan: with worsening infection and osteomyelitis , S/P AKA , will continue vancomycin and Zosyn empiric coverage for 48 hours after surgery , and will stop if surgical wound looks ok and intact , continue local wound care as per surgery (2) Heel ulcer Assessment & Plan: not improving with worsening osteomyelitis , S/P left above the knee amputation for source control , will continue antibiotics for 48 hours after surgery (3) Sepsis Assessment & Plan: due to the above , continue wide spectrum antibiotics pending culture and possible amputations (4) Diabetes Assessment & Plan: recommend tight glycemic control to keep blood glucose between 100-140 Subjective ROS Limited/Unobtainable: Yes Allergies: Coded Allergies: No Known Allergies (Verified , 01/27/10) Subjective late entry note for 09/04/17 she had LAKA , she is sleeping in bed, comfortable, surgical wound dressing is dry , comfortable , nad Objective Vital Signs Last 24 Hour Vital Signs Date Time Temp Pulse Resp B/P (MAP) Pulse Ox O2 Delivery O2 Flow Rate FiO2 09/05/17 04:00 98.1 78 18 114/68 97 Nasal Cannula 2.0 98.1 09/05/17 00:00 98.1 91 20 145/78 100 Nasal Cannula 3.0 98.1 09/04/17 20:00 98.5 89 18 141/86 98 Nasal Cannula 3.0 98.5 09/04/17 20:00 98 Nasal Cannula 3.0 32 09/04/17 20:00 Nasal Cannula 3.0 32 09/04/17 15:45 97.3 76 18 142/77 97.3 09/04/17 14:30 80 22 159/79 100 Nasal Cannula 3.0 09/04/17 14:25 80 24 184/79 100 Simple Mask 8.0 09/04/17 14:00 78 24 155/76 97 Simple Mask 10.0 09/04/17 13:55 77 23 155/76 99 Simple Mask 10.0 09/04/17 13:50 99.0 75 18 155/76 100 Simple Mask 10.0 99.0 09/04/17 13:07 208.4 80 19 99 09/04/17 08:45 75 158/87 Height (Feet): 5 Height (Inches): 4.00 Weight (Pounds): 195 General Appearance: WD/WN, no acute distress HEENT: normocephalic, atraumatic, anicteric, mucous membranes moist Respiratory/Chest: normal breath sounds, no respiratory distress, no accessory muscle use, decreased breath sounds Cardiovascular: normal rate, regular rhythm, no gallop/murmur, no JVD Abdomen: normal bowel sounds, soft, non tender, no organomegaly, non distended , no mass, no scars Extremities: no cyanosis, no clubbing, other - left above the knee ambutation surgical wound covered with dressings , no bleedings Skin: no rash, no lesions Neurologic/Psychiatric: unresponsiveness Laboratory Tests Test 09/05/17 05:05 White Blood Count 8.6 K/UL (4.8-10.8) Red Blood Count 3.21 M/UL (4.20-5.40) L Hemoglobin 10.5 G/DL (12.0-16.0) L Hematocrit 30.6 % (37.0-47.0) L Mean Corpuscular Volume 95 FL (80-99) Mean Corpuscular Hemoglobin 32.6 PG (27.0-31.0) H Mean Corpuscular Hemoglobin Concent 34.2 G/DL (32.0-36.0) Red Cell Distribution Width 13.9 % (11.6-14.8) Platelet Count 259 K/UL (150-450) Mean Platelet Volume 7.6 FL (6.5-10.1) Neutrophils (%) (Auto) 51.7 % (45.0-75.0) Lymphocytes (%) (Auto) 37.2 % (20.0-45.0) Monocytes (%) (Auto) 8.1 % (1.0-10.0) Eosinophils (%) (Auto) 2.1 % (0.0-3.0) Basophils (%) (Auto) 0.8 % (0.0-2.0) Sodium Level 140 MMOL/L (136-145) Potassium Level 3.7 MMOL/L (3.5-5.1) Chloride Level 104 MMOL/L (98-107) Carbon Dioxide Level 25 MMOL/L (21-32) Anion Gap 11 mmol/L (5-15) Blood Urea Nitrogen 26 mg/dL (7-18) H Creatinine 1.8 MG/DL (0.55-1.30) H Estimat Glomerular Filtration Rate mL/min (>60) Glucose Level 198 MG/DL (74-106) H Uric Acid 4.8 MG/DL (2.6-7.2) Calcium Level 9.1 MG/DL (8.5-10.1) Phosphorus Level 3.3 MG/DL (2.5-4.9) Magnesium Level 1.8 MG/DL (1.8-2.4) Total Bilirubin 0.4 MG/DL (0.2-1.0) Aspartate Amino Transf (AST/SGOT) 23 U/L (15-37) Alanine Aminotransferase (ALT/SGPT) 18 U/L (12-78) Alkaline Phosphatase 90 U/L (46-116) C-Reactive Protein, Quantitative 9.0 mg/dL (0.00-0.90) H Total Protein 9.9 G/DL (6.4-8.2) H Albumin 2.7 G/DL (3.4-5.0) L Globulin 7.2 g/dL Albumin/Globulin Ratio 0.4 (1.0-2.7) L Vancomycin Level Trough 21.7 ug/mL (5.0-12.0) H Current Medications Medications (Trade) Dose Ordered Sig/Nancy Route PRN Reason Start Time Stop Time Status Last Admin Dose Admin Acetaminophen (Tylenol) 650 mg Q4H PRN GT temp > 100 / mild pain 08/28/17 15:00 09/27/17 14:59 Amlodipine Besylate (Norvasc) 5 mg DAILY GT 08/29/17 14:45 09/28/17 14:44 09/04/17 08:45 Chlorhexidine Gluconate (Jossy-Hex 2%) 1 applic DAILY@1999 TOPIC 08/28/17 20:00 09/27/17 19:59 09/04/17 20:29 Clonidine HCl (Catapres Tab) 0.1 mg Q6H PRN GT For High BP 160 syst 08/28/17 15:00 09/27/17 14:59 09/02/17 21:19 Dextrose (Dextrose 50%) 25 ml STAT PRN IV Hypoglycemia 08/28/17 15:00 09/27/17 14:59 Dextrose (Dextrose 50%) 50 ml STAT PRN IV Hypoglycemia 08/28/17 15:00 09/27/17 14:59 Famotidine (Pepcid) 20 mg BID GT 08/28/17 18:00 09/22/17 08:59 09/04/17 17:27 Hydromorphone HCl (Dilaudid) 1 mg Q4H PRN IVP Severe Pain (Pain Scale 7-10) 09/04/17 19:00 09/07/17 10:59 Insulin Aspart (NovoLOG) EVERY 6 HOURS SUBQ 08/28/17 18:00 09/22/17 11:29 09/05/17 05:42 Levetiracetam (Keppra) 500 mg Q12HR GT 08/29/17 21:00 09/28/17 20:59 09/04/17 20:30 Metoclopramide HCl (Reglan) 5 mg Q6HR GT 08/28/17 18:00 09/22/17 00:00 09/05/17 05:37 Ondansetron HCl (Zofran) 4 mg Q6H PRN IVP Nausea & Vomiting 08/28/17 15:00 09/21/17 14:59 Piperacillin Sod/ Tazobactam Sod 3.375 gm/Dextrose 110 ml @ 27.5 mls/hr Q8HR@0000,0800,1600 IVPB 09/01/17 08:00 09/08/17 07:59 09/04/17 23:40 Polyethylene Glycol (Miralax) 17 gm DAILYPRN PRN GT Constipation 08/29/17 15:00 09/28/17 14:59 Tramadol HCl (Ultram) 25 mg Q6HR GT 09/04/17 18:00 09/07/17 13:59 09/05/17 05:37 Vancomycin HCl (Vanco rx to dose) 1 ea DAILY PRN MISC Per rx protocol 08/28/17 15:00 09/27/17 14:59 Aayla Forman M.D. September 05, 2017 08:23
[2017-09-05] MEDS: Piperacillin/Tazobactam 3.375 GM in D5W 110 ML IVPB SCH (08:28)
[2017-09-05] MEDS: levETIRAcetam 500mg/5ml Liquid GT SCH ×2 (08:29→22:18)
--- NOTE | 2017-09-05 10:43 | 48 Hour Post Anesthesia Eval ---
Post Anesthesia Evaluation Procedure: Left AKA Date of Evaluation: September 05, 2017 Time of Evaluation: 10:41 Blood Pressure Systolic: 136 0: 72 Pulse Rate: 68 Respiratory Rate: 22 Temperature (Fahrenheit): 97.6 O2 Sat by Pulse Oximetry: 97 Airway: patent Nausea: No Vomiting: No Pain Intensity: 2 Hydration Status: adequate Cardiopulmonary Status: stable Mental Status/LOC: patient returned to baseline Follow-up Care/Observations: n/a Post-Anesthesia Complications: none Follow-up care needed: N/A JANES ARANGO M.D. September 05, 2017 10:43
--- NOTE | 2017-09-05 11:44 | General Progress Note ---
Progress Note Progress Note Surgery: No acute events since surgery. comfortable. pain controlled. no signs of significant pain or discomfort. afebrile, HD stable, exam stable left AKA dressings clean, dry, intact. elevated with pillows. POD #1 s/p left AKA for chronic osteomyelitis with large foul smelling infected wounds in left foot/heel/leg refractory to maximal medical therapy. -keep dressings on for now. will change tomorrow -keep left extremity elevated -diet as tolerated -pain control -rx as written -okay to d/c Abx from surgical standpoint now that source controlled will likely be safe for discharge to subacute facility soon. will need to follow up with me in 1-2 weeks for wound check then 2 weeks after for planned staple removal in 4 weeks from operative date. okay for dressings prn starting tomorrow when initial operative dressings removed. Taco Carter September 05, 2017 11:43
[2017-09-05 12:00] VITALS: BP 160/88
--- NOTE | 2017-09-05 13:36 | General Progress Note ---
Assessment/Plan Problem List: (1) UTI (urinary tract infection) (2) Sepsis ICD Codes: A41.9 - Sepsis, unspecified organism SNOMED: 05940886 (3) DVT (deep vein thrombosis) in ICD Codes: O22.30 - Deep phlebothrombosis in , unspecified trimester; I82.409 - Acute embolism and thrombosis of unspecified deep veins of unspecified lower extremity SNOMED: 14114670 (4) Diabetes ICD Codes: E11.9 - Type 2 diabetes mellitus without complications SNOMED: 84705859 (5) Anemia ICD Codes: D64.9 - Anemia, unspecified SNOMED: 876718598 Qualifiers: Qualified Codes: D64.9 - Anemia, unspecified (6) Hypernatremia ICD Codes: E87.0 - Hyperosmolality and hypernatremia SNOMED: 02321650 (7) Osteomyelitis of ankle or foot, left, acute ICD Codes: M86.172 - Other acute osteomyelitis, left ankle and foot SNOMED: 973599883 (8) Pneumonia involving left lung ICD Codes: J18.9 - Pneumonia, unspecified organism SNOMED: 078017474 Status: stable - p Status Narrative post amputation Assessment/Plan Post amputation management 09/04/17 On Tramadol, increase dose. stop Vanco, check level in am- Cr rising Adjust Zosyn dose Plan to DC in am off Antibiotics (1) Osteomyelitis of ankle or foot, left, acute Assessment & Plan: on chronic, with worsening osteomyelitis due to poor circulation in the left leg, will continue wide spectrum antibiotics coverage with vancomycin and Zosyn , I had detailed discussion with the jaison whitleyeres regarding the patient condition and the need to consider amputation since she is not responding well to antibiotics alone, and we went over the risk and the benefits of the amputation, and she understood that the patient will have bad outcome if she failes the current regimen of antibiotics she is on , which include septic shock with multiorgan failure and . she will think about it . discussed with other consultants (2) Heel ulcer Assessment & Plan: not improving with worsening osteomyelitis , she will need amputation for source control , will continue wide spectrum antibiotics pending conservative decision regarding amputation DPOA refuses amputation will arrange PICC and DC planning Per ID recs Conservator left messages and so far can not arrange for bioethics BioEthic consult resume Lovenox for DVT Per ID and Surg GT feeding per order transfuse as needed Subjective ROS Limited/Unobtainable: No Constitutional: Reports: other - nonverbal Allergies: Coded Allergies: No Known Allergies (Verified , 01/27/10) Objective Last 24 Hour Vital Signs Date Time Temp Pulse Resp B/P (MAP) Pulse Ox O2 Delivery O2 Flow Rate FiO2 09/05/17 12:00 98.6 96 20 160/88 98 98.6 09/05/17 11:46 160/88 09/05/17 10:43 207.7 68 22 97 09/05/17 08:29 89 149/83 09/05/17 08:00 98.8 94 20 147/80 97 98.8 09/05/17 04:00 98.1 78 18 114/68 97 Nasal Cannula 2.0 98.1 09/05/17 00:00 98.1 91 20 145/78 100 Nasal Cannula 3.0 98.1 09/04/17 20:00 98.5 89 18 141/86 98 Nasal Cannula 3.0 98.5 09/04/17 20:00 98 Nasal Cannula 3.0 32 09/04/17 20:00 Nasal Cannula 3.0 32 09/04/17 15:45 97.3 76 18 142/77 97.3 09/04/17 14:30 80 22 159/79 100 Nasal Cannula 3.0 09/04/17 14:25 80 24 184/79 100 Simple Mask 8.0 09/04/17 14:00 78 24 155/76 97 Simple Mask 10.0 09/04/17 13:55 77 23 155/76 99 Simple Mask 10.0 09/04/17 13:50 99.0 75 18 155/76 100 Simple Mask 10.0 99.0 Intake and Output 09/04/17 09/05/17 19:00 07:00 Intake Total 1267.5 ml 787.5 ml Output Total 150 ml 500 ml Balance 1117.5 ml 287.5 ml Free Water 60 ml IV Total 1137.5 ml 137.5 ml Tube Feeding 130 ml 590 ml Output Urine Total 100 ml 500 ml Estimated Blood Loss 50 ml Laboratory Tests 09/05/17 05:05: White Blood Count 8.6, Red Blood Count 3.21L, Hemoglobin 10.5L, Hematocrit 30.6L , Mean Corpuscular Volume 95, Mean Corpuscular Hemoglobin 32.6H, Mean Corpuscular Hemoglobin Concent 34.2, Red Cell Distribution Width 13.9, Platelet Count 259, Mean Platelet Volume 7.6, Neutrophils (%) (Auto) 51.7, Lymphocytes (% ) (Auto) 37.2, Monocytes (%) (Auto) 8.1, Eosinophils (%) (Auto) 2.1, Basophils ( %) (Auto) 0.8, Sodium Level 140, Potassium Level 3.7, Chloride Level 104, Carbon Dioxide Level 25, Anion Gap 11, Blood Urea Nitrogen 26H, Creatinine 1.8H , Estimat Glomerular Filtration Rate , Glucose Level 198H, Uric Acid 4.8, Calcium Level 9.1, Phosphorus Level 3.3, Magnesium Level 1.8, Total Bilirubin 0.4, Aspartate Amino Transf (AST/SGOT) 23, Alanine Aminotransferase (ALT/SGPT) 18, Alkaline Phosphatase 90, C-Reactive Protein, Quantitative 9.0H, Total Protein 9.9H, Albumin 2.7L, Globulin 7.2, Albumin/Globulin Ratio 0.4L, Vancomycin Level Trough 21.7H Height (Feet): 5 Height (Inches): 4.00 Weight (Pounds): 195 General Appearance: no apparent distress, lethargic Cardiovascular: tachycardia Respiratory/Chest: decreased breath sounds Abdomen: soft Extremities: other - stump wound clean Objective no change GEORGE MONDRAGON September 05, 2017 13:36
--- NOTE | 2017-09-05 14:56 | Pulmonology Progress Note ---
Assessment/Plan Problems: (1) Sepsis (2) Osteomyelitis of ankle or foot, left, acute (3) G tube feedings (4) Functional quadriplegia (5) Right hemiparesis (6) Diabetes Assessment/Plan tolerated surgery looks comfortable continue abx check labs tolerating feeding check cultures dvt prophylaxis wound care Subjective ROS Limited/Unobtainable: No Constitutional: Reports: no symptoms HEENT: Repors: no symptoms Respiratory: Reports: no symptoms Allergies: Coded Allergies: No Known Allergies (Verified , 01/27/10) Objective Last 24 Hour Vital Signs Date Time Temp Pulse Resp B/P (MAP) Pulse Ox O2 Delivery O2 Flow Rate FiO2 09/05/17 12:00 98.6 96 20 160/88 98 98.6 09/05/17 11:46 160/88 09/05/17 10:43 207.7 68 22 97 09/05/17 08:29 89 149/83 09/05/17 08:00 98.8 94 20 147/80 97 98.8 09/05/17 04:00 98.1 78 18 114/68 97 Nasal Cannula 2.0 98.1 09/05/17 00:00 98.1 91 20 145/78 100 Nasal Cannula 3.0 98.1 09/04/17 20:00 98.5 89 18 141/86 98 Nasal Cannula 3.0 98.5 09/04/17 20:00 98 Nasal Cannula 3.0 32 09/04/17 20:00 Nasal Cannula 3.0 32 09/04/17 15:45 97.3 76 18 142/77 97.3 Intake and Output 09/04/17 09/05/17 19:00 07:00 Intake Total 1267.5 ml 787.5 ml Output Total 150 ml 500 ml Balance 1117.5 ml 287.5 ml Free Water 60 ml IV Total 1137.5 ml 137.5 ml Tube Feeding 130 ml 590 ml Output Urine Total 100 ml 500 ml Estimated Blood Loss 50 ml Objective General Appearance: WD/WN, no acute distress HEENT: atraumatic Respiratory/Chest: normal breath sounds Abdomen: normal bowel sounds, soft, non tender Extremities: no cyanosis, AKA Laboratory Tests 09/05/17 05:05: White Blood Count 8.6, Red Blood Count 3.21L, Hemoglobin 10.5L, Hematocrit 30.6L , Mean Corpuscular Volume 95, Mean Corpuscular Hemoglobin 32.6H, Mean Corpuscular Hemoglobin Concent 34.2, Red Cell Distribution Width 13.9, Platelet Count 259, Mean Platelet Volume 7.6, Neutrophils (%) (Auto) 51.7, Lymphocytes (% ) (Auto) 37.2, Monocytes (%) (Auto) 8.1, Eosinophils (%) (Auto) 2.1, Basophils ( %) (Auto) 0.8, Sodium Level 140, Potassium Level 3.7, Chloride Level 104, Carbon Dioxide Level 25, Anion Gap 11, Blood Urea Nitrogen 26H, Creatinine 1.8H , Estimat Glomerular Filtration Rate , Glucose Level 198H, Uric Acid 4.8, Calcium Level 9.1, Phosphorus Level 3.3, Magnesium Level 1.8, Total Bilirubin 0.4, Aspartate Amino Transf (AST/SGOT) 23, Alanine Aminotransferase (ALT/SGPT) 18, Alkaline Phosphatase 90, C-Reactive Protein, Quantitative 9.0H, Total Protein 9.9H, Albumin 2.7L, Globulin 7.2, Albumin/Globulin Ratio 0.4L, Vancomycin Level Trough 21.7H Current Medications Medications (Trade) Dose Ordered Sig/Nancy Route PRN Reason Start Time Stop Time Status Last Admin Dose Admin Acetaminophen (Tylenol) 650 mg Q4H PRN GT temp > 100 / mild pain 08/28/17 15:00 09/27/17 14:59 Amlodipine Besylate (Norvasc) 5 mg Q12HR GT 09/05/17 21:00 10/05/17 20:59 Chlorhexidine Gluconate (Jossy-Hex 2%) 1 applic DAILY@1999 TOPIC 08/28/17 20:00 09/27/17 19:59 09/04/17 20:29 Clonidine HCl (Catapres Tab) 0.1 mg Q6H PRN GT For High BP 160 syst 08/28/17 15:00 09/27/17 14:59 09/05/17 11:46 Dextrose (Dextrose 50%) 25 ml STAT PRN IV Hypoglycemia 08/28/17 15:00 09/27/17 14:59 Dextrose (Dextrose 50%) 50 ml STAT PRN IV Hypoglycemia 08/28/17 15:00 09/27/17 14:59 Famotidine (Pepcid) 20 mg BID GT 08/28/17 18:00 09/22/17 08:59 09/05/17 08:28 Hydromorphone HCl (Dilaudid) 1 mg Q4H PRN IVP Severe Pain (Pain Scale 7-10) 09/04/17 19:00 09/07/17 10:59 09/05/17 08:25 Insulin Aspart (NovoLOG) EVERY 6 HOURS SUBQ 08/28/17 18:00 09/22/17 11:29 09/05/17 11:51 Levetiracetam (Keppra) 500 mg Q12HR GT 08/29/17 21:00 09/28/17 20:59 09/05/17 08:29 Metoclopramide HCl (Reglan) 5 mg Q6HR GT 08/28/17 18:00 09/22/17 00:00 09/05/17 11:44 Ondansetron HCl (Zofran) 4 mg Q6H PRN IVP Nausea & Vomiting 08/28/17 15:00 09/21/17 14:59 Piperacillin Sod/ Tazobactam Sod 2.25 gm/Dextrose 110 ml @ 27.5 mls/hr Q8HR@0000,0800,1600 IV 09/05/17 16:00 09/12/17 15:59 Polyethylene Glycol (Miralax) 17 gm DAILYPRN PRN GT Constipation 08/29/17 15:00 09/28/17 14:59 Tramadol HCl (Ultram) 50 mg Q6HR GT 09/05/17 18:00 09/07/17 13:59 Saira Lazcano MD September 05, 2017 14:56
[2017-09-05 16:00] VITALS: BP 149/66
[2017-09-05] MEDS ORDERED: Piperacillin/Tazobactam 2.25 GM in D5W 110 ML IVPB SCH (16:00)
[2017-09-05] MEDS ORDERED: Sterile Water Irrig 1000ml IRRIG ONE (16:26)
[2017-09-05] MEDS: Piperacillin/Tazobactam 2.25 GM in D5W 110 ML IV SCH (17:23)
[2017-09-05] MEDS ORDERED: Vancomycin 750mg/NS 250ml IVPB ONE (18:00)
--- NOTE | 2017-09-05 19:27 | Infectious Diseases Prog Note ---
Assessment/Plan Problems: (1) Osteomyelitis of ankle or foot, left, acute Assessment & Plan: with worsening infection and osteomyelitis , S/P AKA , will continue vancomycin and Zosyn empiric coverage for 48 hours after surgery , and will stop if surgical wound looks ok and intact , continue local wound care as per surgery (2) Sepsis Assessment & Plan: due to the above , resolved, had source control with amputation , continue wide spectrum antibiotics for 48 hours after surgery , since wound is clean and dry (3) Diabetes Assessment & Plan: recommend tight glycemic control to keep blood glucose between 100-140 Subjective ROS Limited/Unobtainable: Yes Allergies: Coded Allergies: No Known Allergies (Verified , 01/27/10) Subjective she is comfortable, lying in bed, no signs of distress , had L AKA yesterday and tolerated procedure well , surgical wound dressing is dry , no bleeding, had low grade fever due to surgical procedure most likely Objective Vital Signs Last 24 Hour Vital Signs Date Time Temp Pulse Resp B/P (MAP) Pulse Ox O2 Delivery O2 Flow Rate FiO2 09/05/17 16:00 99.3 96 20 149/66 99 99.3 09/05/17 12:00 98.6 96 20 160/88 98 98.6 09/05/17 11:46 160/88 09/05/17 10:43 207.7 68 22 97 09/05/17 08:29 89 149/83 09/05/17 08:00 98.8 94 20 147/80 97 98.8 09/05/17 04:00 98.1 78 18 114/68 97 Nasal Cannula 2.0 98.1 09/05/17 00:00 98.1 91 20 145/78 100 Nasal Cannula 3.0 98.1 09/04/17 20:00 98.5 89 18 141/86 98 Nasal Cannula 3.0 98.5 09/04/17 20:00 98 Nasal Cannula 3.0 32 09/04/17 20:00 Nasal Cannula 3.0 32 Height (Feet): 5 Height (Inches): 4.00 Weight (Pounds): 195 General Appearance: WD/WN, no acute distress HEENT: normocephalic, atraumatic, anicteric, mucous membranes moist Respiratory/Chest: normal breath sounds, no respiratory distress, no accessory muscle use, decreased breath sounds, crackles/rales Cardiovascular: normal rate, regular rhythm, no gallop/murmur, no JVD Abdomen: normal bowel sounds, soft, non tender, no organomegaly, non distended , no mass, no scars Extremities: no cyanosis, no clubbing, other - L AKA surgical wound with dressing and bandage, no bleeding or drainage Skin: no rash, no lesions Neurologic/Psychiatric: unresponsiveness Laboratory Tests Test 09/05/17 05:05 09/05/17 16:35 White Blood Count 8.6 K/UL (4.8-10.8) Red Blood Count 3.21 M/UL (4.20-5.40) L Hemoglobin 10.5 G/DL (12.0-16.0) L Hematocrit 30.6 % (37.0-47.0) L Mean Corpuscular Volume 95 FL (80-99) Mean Corpuscular Hemoglobin 32.6 PG (27.0-31.0) H Mean Corpuscular Hemoglobin Concent 34.2 G/DL (32.0-36.0) Red Cell Distribution Width 13.9 % (11.6-14.8) Platelet Count 259 K/UL (150-450) Mean Platelet Volume 7.6 FL (6.5-10.1) Neutrophils (%) (Auto) 51.7 % (45.0-75.0) Lymphocytes (%) (Auto) 37.2 % (20.0-45.0) Monocytes (%) (Auto) 8.1 % (1.0-10.0) Eosinophils (%) (Auto) 2.1 % (0.0-3.0) Basophils (%) (Auto) 0.8 % (0.0-2.0) Sodium Level 140 MMOL/L (136-145) Potassium Level 3.7 MMOL/L (3.5-5.1) Chloride Level 104 MMOL/L (98-107) Carbon Dioxide Level 25 MMOL/L (21-32) Anion Gap 11 mmol/L (5-15) Blood Urea Nitrogen 26 mg/dL (7-18) H Creatinine 1.8 MG/DL (0.55-1.30) H Estimat Glomerular Filtration Rate mL/min (>60) Glucose Level 198 MG/DL (74-106) H Uric Acid 4.8 MG/DL (2.6-7.2) Calcium Level 9.1 MG/DL (8.5-10.1) Phosphorus Level 3.3 MG/DL (2.5-4.9) Magnesium Level 1.8 MG/DL (1.8-2.4) Total Bilirubin 0.4 MG/DL (0.2-1.0) Aspartate Amino Transf (AST/SGOT) 23 U/L (15-37) Alanine Aminotransferase (ALT/SGPT) 18 U/L (12-78) Alkaline Phosphatase 90 U/L (46-116) C-Reactive Protein, Quantitative 9.0 mg/dL (0.00-0.90) H 14.6 mg/dL (0.00-0.90) H Total Protein 9.9 G/DL (6.4-8.2) H Albumin 2.7 G/DL (3.4-5.0) L Globulin 7.2 g/dL Albumin/Globulin Ratio 0.4 (1.0-2.7) L Vancomycin Level Trough 21.7 ug/mL (5.0-12.0) H Current Medications Medications (Trade) Dose Ordered Sig/Nancy Route PRN Reason Start Time Stop Time Status Last Admin Dose Admin Acetaminophen (Tylenol) 650 mg Q4H PRN GT temp > 100 / mild pain 08/28/17 15:00 09/27/17 14:59 Amlodipine Besylate (Norvasc) 5 mg Q12HR GT 09/05/17 21:00 10/05/17 20:59 Chlorhexidine Gluconate (Jossy-Hex 2%) 1 applic DAILY@2000 TOPIC 08/28/17 20:00 09/27/17 19:59 09/04/17 20:29 Clonidine HCl (Catapres Tab) 0.1 mg Q6H PRN GT For High BP 160 syst 08/28/17 15:00 09/27/17 14:59 09/05/17 11:46 Dextrose (Dextrose 50%) 25 ml STAT PRN IV Hypoglycemia 08/28/17 15:00 09/27/17 14:59 Dextrose (Dextrose 50%) 50 ml STAT PRN IV Hypoglycemia 08/28/17 15:00 09/27/17 14:59 Famotidine (Pepcid) 20 mg BID GT 08/28/17 18:00 09/22/17 08:59 09/05/17 17:23 Hydromorphone HCl (Dilaudid) 1 mg Q4H PRN IVP Severe Pain (Pain Scale 7-10) 09/04/17 19:00 09/07/17 10:59 09/05/17 17:57 Insulin Aspart (NovoLOG) EVERY 6 HOURS SUBQ 08/28/17 18:00 09/22/17 11:29 09/05/17 17:52 Levetiracetam (Keppra) 500 mg Q12HR GT 08/29/17 21:00 09/28/17 20:59 09/05/17 08:29 Metoclopramide HCl (Reglan) 5 mg Q6HR GT 08/28/17 18:00 09/22/17 00:00 09/05/17 17:23 Ondansetron HCl (Zofran) 4 mg Q6H PRN IVP Nausea & Vomiting 08/28/17 15:00 09/21/17 14:59 Piperacillin Sod/ Tazobactam Sod 2.25 gm/Dextrose 110 ml @ 27.5 mls/hr Q8HR@0000,0800,1600 IV 09/05/17 16:00 09/12/17 15:59 09/05/17 17:23 Polyethylene Glycol (Miralax) 17 gm DAILYPRN PRN GT Constipation 08/29/17 15:00 09/28/17 14:59 Tramadol HCl (Ultram) 50 mg Q6HR GT 09/05/17 18:00 09/07/17 13:59 09/05/17 17:23 Ayala Forman M.D. September 05, 2017 19:27
[2017-09-05 20:00] VITALS: BP 153/74
[2017-09-05] MEDS: Dyna-Hex 2% Top Sol 2oz TOPIC SCH (22:18)
[2017-09-06] VITALS: BP 106/45
[2017-09-06] MEDS: Metoclopramide 10mg/10ml Liq GT SCH ×4 (00:41→17:54)
[2017-09-06] MEDS: Piperacillin/Tazobactam 2.25 GM in D5W 110 ML IV SCH ×2 (00:41→07:57)
[2017-09-06] MEDS: traMADol 50mg tab GT SCH ×4 (00:42→17:55)
[2017-09-06] MEDS: NovoLOG Insulin Flexpen SUBQ SCH ×4 (00:44→17:57)
[2017-09-06 04:00] VITALS: BP 133/49
[2017-09-06 04:44] LABS: BASOPHILS % (AUTO) 0.6 % (0.0-2.0); EOSINOPHILS % (AUTO) 2.6 % (0.0-3.0); HEMATOCRIT 27.5 % (37.0-47.0); HEMOGLOBIN 9.1 G/DL (12.0-16.0); LYMPHOCYTES % (AUTO) 28.1 % (20.0-45.0); MEAN CORPUSCULAR VOLUME 96 FL (80-99); MONOCYTES % (AUTO) 7.9 % (1.0-10.0); NEUTROPHILS % (AUTO) 60.9 % (45.0-75.0); PLATELET COUNT 186 K/UL (150-450); RED BLOOD COUNT 2.87 M/UL (4.20-5.40); RED CELL DISTRIBUTION WIDTH 14.5 % (11.6-14.8)
[2017-09-06 05:34] LABS: ALANINE AMINOTRANSFERASE 11 U/L (12-78); ALBUMIN 2.3 G/DL (3.4-5.0); ALBUMIN/GLOBULIN RATIO 0.4 (1.0-2.7); ALKALINE PHOSPHATASE 76 U/L (46-116); ANION GAP 9 mmol/L (5-15); ASPARTATE AMINO TRANSFERASE 15 U/L (15-37); BILIRUBIN,TOTAL 0.3 MG/DL (0.2-1.0); BLOOD UREA NITROGEN 40 mg/dL (7-18); CALCIUM 8.5 MG/DL (8.5-10.1); CARBON DIOXIDE 27 MMOL/L (21-32); CHLORIDE 105 MMOL/L (98-107); CREATININE 2.2 MG/DL (0.55-1.30); PHOSPHORUS 3.6 MG/DL (2.5-4.9); POTASSIUM 3.7 MMOL/L (3.5-5.1); SODIUM 141 MMOL/L (136-145)
[2017-09-06 08:48] VITALS: BP 133/66
[2017-09-06] MEDS ORDERED: Sodium Chloride 500ML 500 ML IV ONE ×2 (09:00→09:15)
[2017-09-06] MEDS: levETIRAcetam 500mg/5ml Liquid GT SCH ×2 (09:02→20:32)
[2017-09-06] MEDS ORDERED: Iron Sucrose 200 MG in NS 110 ML IV ONE (09:45)
[2017-09-06 12:02] VITALS: BP 136/65
--- NOTE | 2017-09-06 12:02 | General Progress Note ---
Assessment/Plan Problem List: (1) UTI (urinary tract infection) (2) Sepsis ICD Codes: A41.9 - Sepsis, unspecified organism SNOMED: 93408666 (3) DVT (deep vein thrombosis) in ICD Codes: O22.30 - Deep phlebothrombosis in , unspecified trimester; I82.409 - Acute embolism and thrombosis of unspecified deep veins of unspecified lower extremity SNOMED: 38923267 (4) Diabetes ICD Codes: E11.9 - Type 2 diabetes mellitus without complications SNOMED: 59771512 (5) Anemia ICD Codes: D64.9 - Anemia, unspecified SNOMED: 606190439 Qualifiers: (6) Hypernatremia ICD Codes: E87.0 - Hyperosmolality and hypernatremia SNOMED: 66953200 (7) Osteomyelitis of ankle or foot, left, acute ICD Codes: M86.172 - Other acute osteomyelitis, left ankle and foot SNOMED: 631801672 (8) Pneumonia involving left lung ICD Codes: J18.9 - Pneumonia, unspecified organism SNOMED: 487722225 Status: stable Status Narrative now cr rising Assessment/Plan Post amputation management 09/04/17 On Tramadol, stop Vanco, Stop Zosyn Fluid challenge, for rising Cr Plan to DC in am off Antibiotics (1) Osteomyelitis of ankle or foot, left, acute Assessment & Plan: on chronic, with worsening osteomyelitis due to poor circulation in the left leg, will continue wide spectrum antibiotics coverage with vancomycin and Zosyn , I had detailed discussion with the conservative palmira whitleyeres regarding the patient condition and the need to consider amputation since she is not responding well to antibiotics alone, and we went over the risk and the benefits of the amputation, and she understood that the patient will have bad outcome if she failes the current regimen of antibiotics she is on , which include septic shock with multiorgan failure and . she will think about it . discussed with other consultants (2) Heel ulcer Assessment & Plan: not improving with worsening osteomyelitis , she will need amputation for source control , will continue wide spectrum antibiotics pending conservative decision regarding amputation DPOA refuses amputation will arrange PICC and DC planning Per ID recs Conservator left messages and so far can not arrange for bioethics BioEthic consult resume Lovenox for DVT Per ID and Surg GT feeding per order transfuse as needed Subjective ROS Limited/Unobtainable: No Constitutional: Reports: malaise Allergies: Coded Allergies: No Known Allergies (Verified , 01/27/10) Objective Last 24 Hour Vital Signs Date Time Temp Pulse Resp B/P (MAP) Pulse Ox O2 Delivery O2 Flow Rate FiO2 09/06/17 11:44 98.4 09/06/17 10:13 98.4 09/06/17 09:43 98.4 09/06/17 09:03 100 133/66 09/06/17 08:48 98.4 100 20 133/66 99 98.4 09/06/17 04:00 99.0 96 20 133/49 97 99.0 09/06/17 00:00 98.9 100 19 106/45 100 98.9 09/05/17 22:20 96 149/66 09/05/17 20:00 99.8 102 19 153/74 98 99.8 09/05/17 16:00 99.3 96 20 149/66 99 99.3 09/05/17 12:00 98.6 96 20 160/88 98 98.6 Intake and Output 09/05/17 09/06/17 19:00 07:00 Output Total 350 ml 180 ml Balance -350 ml -180 ml Output Urine Total 350 ml 180 ml # Bowel Movements 2 Laboratory Tests 09/05/17 16:35: C-Reactive Protein, Quantitative 14.6H 09/06/17 04:20: White Blood Count 10.0, Red Blood Count 2.87L, Hemoglobin 9.1L, Hematocrit 27.5L , Mean Corpuscular Volume 96, Mean Corpuscular Hemoglobin 31.7H, Mean Corpuscular Hemoglobin Concent 33.1, Red Cell Distribution Width 14.5, Platelet Count 186, Mean Platelet Volume 7.5, Neutrophils (%) (Auto) 60.9, Lymphocytes (% ) (Auto) 28.1, Monocytes (%) (Auto) 7.9, Eosinophils (%) (Auto) 2.6, Basophils ( %) (Auto) 0.6, Sodium Level 141, Potassium Level 3.7, Chloride Level 105, Carbon Dioxide Level 27, Anion Gap 9, Blood Urea Nitrogen 40H, Creatinine 2.2H, Estimat Glomerular Filtration Rate , Glucose Level 211H, Uric Acid 5.4, Calcium Level 8.5, Phosphorus Level 3.6, Magnesium Level 2.1, Total Bilirubin 0.3, Aspartate Amino Transf (AST/SGOT) 15, Alanine Aminotransferase (ALT/SGPT) 11L, Alkaline Phosphatase 76, Pro-B-Type Natriuretic Peptide 751H, Total Protein 8.8H , Albumin 2.3L, Globulin 6.5, Albumin/Globulin Ratio 0.4L, Random Vancomycin Level 15.2 Height (Feet): 5 Height (Inches): 4.00 Weight (Pounds): 194 General Appearance: no apparent distress Neck: limited range of motion Cardiovascular: tachycardia Respiratory/Chest: decreased breath sounds Extremities: other - wound clean Objective no change GEORGE MONDRAGON September 06, 2017 12:02
--- NOTE | 2017-09-06 12:35 | General Progress Note ---
Progress Note Progress Note Surgery: No acute events. doing okay. no signs of significant pain or discomfort. afebrile, HD stable, exam stable left AKA dressings clean, dry, intact. elevated with pillows. dressings removed and wound intact and without drainage. no signs of infection. healing well. POD #2 s/p left AKA for chronic osteomyelitis with large foul smelling infected wounds in left foot/heel/leg refractory to maximal medical therapy. -keep left extremity elevated -diet as tolerated -pain control -rx as written -okay to d/c Abx from surgical standpoint now that source controlled will likely be safe for discharge to subacute facility soon. will need to follow up with me in 1-2 weeks for wound check then 2 weeks after for planned staple removal in 4 weeks from operative date. okay for dressings Taco Carrillo September 06, 2017 12:35
--- NOTE | 2017-09-06 13:22 | Infectious Diseases Prog Note ---
Assessment/Plan Problems: (1) Osteomyelitis of ankle or foot, left, acute Assessment & Plan: with worsening infection and osteomyelitis , S/P AKA , will stop vancomycin and Zosyn empiric coverage today since surgical wound looks ok and intact , continue local wound care as per surgery (2) Sepsis Assessment & Plan: due to the above , resolved, had source control with amputation , will stop wide spectrum antibiotics (3) Diabetes Assessment & Plan: recommend tight glycemic control to keep blood glucose between 100-140 Subjective ROS Limited/Unobtainable: Yes Allergies: Coded Allergies: No Known Allergies (Verified , 01/27/10) Subjective she was sleeping in bed, comfortable, with no signs of distress , had L AKA and tolerated procedure well , surgical wound dry and clean with clips , no bleeding, no fever today Objective Vital Signs Last 24 Hour Vital Signs Date Time Temp Pulse Resp B/P (MAP) Pulse Ox O2 Delivery O2 Flow Rate FiO2 09/06/17 12:02 98.6 98 20 136/65 99 98.6 09/06/17 11:44 98.4 09/06/17 10:13 98.4 09/06/17 09:43 98.4 09/06/17 09:03 100 133/66 09/06/17 08:48 98.4 100 20 133/66 99 98.4 09/06/17 04:00 99.0 96 20 133/49 97 99.0 09/06/17 00:00 98.9 100 19 106/45 100 98.9 09/05/17 22:20 96 149/66 09/05/17 20:00 99.8 102 19 153/74 98 99.8 09/05/17 16:00 99.3 96 20 149/66 99 99.3 Height (Feet): 5 Height (Inches): 4.00 Weight (Pounds): 194 General Appearance: WD/WN, no acute distress HEENT: normocephalic, atraumatic, anicteric, mucous membranes moist, PERRL Respiratory/Chest: chest wall non-tender, lungs clear, normal breath sounds, no respiratory distress, no accessory muscle use Cardiovascular: normal peripheral pulses, normal rate, regular rhythm, no gallop/murmur, no JVD Abdomen: normal bowel sounds, soft, non tender, no organomegaly, non distended , no mass, no scars Extremities: no cyanosis, no clubbing, other - left above the knee surgical wound dry and clean , covered with dressing , no discharge or bleeding Skin: no rash, no lesions Neurologic/Psychiatric: alert, responsive Lymphatic: no neck adenopathy, no groin adenopathy Laboratory Tests Test 09/05/17 16:35 09/06/17 04:20 C-Reactive Protein, Quantitative 14.6 mg/dL (0.00-0.90) H 33.3 mg/dL (0.00-0.90) H White Blood Count 10.0 K/UL (4.8-10.8) Red Blood Count 2.87 M/UL (4.20-5.40) L Hemoglobin 9.1 G/DL (12.0-16.0) L Hematocrit 27.5 % (37.0-47.0) L Mean Corpuscular Volume 96 FL (80-99) Mean Corpuscular Hemoglobin 31.7 PG (27.0-31.0) H Mean Corpuscular Hemoglobin Concent 33.1 G/DL (32.0-36.0) Red Cell Distribution Width 14.5 % (11.6-14.8) Platelet Count 186 K/UL (150-450) Mean Platelet Volume 7.5 FL (6.5-10.1) Neutrophils (%) (Auto) 60.9 % (45.0-75.0) Lymphocytes (%) (Auto) 28.1 % (20.0-45.0) Monocytes (%) (Auto) 7.9 % (1.0-10.0) Eosinophils (%) (Auto) 2.6 % (0.0-3.0) Basophils (%) (Auto) 0.6 % (0.0-2.0) Sodium Level 141 MMOL/L (136-145) Potassium Level 3.7 MMOL/L (3.5-5.1) Chloride Level 105 MMOL/L (98-107) Carbon Dioxide Level 27 MMOL/L (21-32) Anion Gap 9 mmol/L (5-15) Blood Urea Nitrogen 40 mg/dL (7-18) H Creatinine 2.2 MG/DL (0.55-1.30) H Estimat Glomerular Filtration Rate mL/min (>60) Glucose Level 211 MG/DL (74-106) H Uric Acid 5.4 MG/DL (2.6-7.2) Calcium Level 8.5 MG/DL (8.5-10.1) Phosphorus Level 3.6 MG/DL (2.5-4.9) Magnesium Level 2.1 MG/DL (1.8-2.4) Total Bilirubin 0.3 MG/DL (0.2-1.0) Aspartate Amino Transf (AST/SGOT) 15 U/L (15-37) Alanine Aminotransferase (ALT/SGPT) 11 U/L (12-78) L Alkaline Phosphatase 76 U/L (46-116) Pro-B-Type Natriuretic Peptide 751 pg/mL (0-125) H Total Protein 8.8 G/DL (6.4-8.2) H Albumin 2.3 G/DL (3.4-5.0) L Globulin 6.5 g/dL Albumin/Globulin Ratio 0.4 (1.0-2.7) L Random Vancomycin Level 15.2 ug/mL Current Medications Medications (Trade) Dose Ordered Sig/Nancy Route PRN Reason Start Time Stop Time Status Last Admin Dose Admin Acetaminophen (Tylenol) 650 mg Q4H PRN GT temp > 100 / mild pain 08/28/17 15:00 09/27/17 14:59 Amlodipine Besylate (Norvasc) 5 mg Q12HR GT 09/05/17 21:00 10/05/17 20:59 09/06/17 09:03 Chlorhexidine Gluconate (Jossy-Hex 2%) 1 applic DAILY@1999 TOPIC 08/28/17 20:00 09/27/17 19:59 09/05/17 22:18 Clonidine HCl (Catapres Tab) 0.1 mg Q6H PRN GT For High BP 160 syst 08/28/17 15:00 09/27/17 14:59 09/05/17 11:46 Dextrose (Dextrose 50%) 25 ml STAT PRN IV Hypoglycemia 08/28/17 15:00 09/27/17 14:59 Dextrose (Dextrose 50%) 50 ml STAT PRN IV Hypoglycemia 08/28/17 15:00 09/27/17 14:59 Famotidine (Pepcid) 20 mg BID GT 08/28/17 18:00 09/22/17 08:59 09/06/17 09:02 Hydromorphone HCl (Dilaudid) 1 mg Q4H PRN IVP Severe Pain (Pain Scale 7-10) 09/04/17 19:00 09/07/17 10:59 09/06/17 09:43 Insulin Aspart (NovoLOG) EVERY 6 HOURS SUBQ 08/28/17 18:00 09/22/17 11:29 09/06/17 11:39 Levetiracetam (Keppra) 500 mg Q12HR GT 08/29/17 21:00 09/28/17 20:59 09/06/17 09:02 Metoclopramide HCl (Reglan) 5 mg Q6HR GT 08/28/17 18:00 09/22/17 00:00 09/06/17 11:44 Ondansetron HCl (Zofran) 4 mg Q6H PRN IVP Nausea & Vomiting 08/28/17 15:00 09/21/17 14:59 Polyethylene Glycol (Miralax) 17 gm DAILYPRN PRN GT Constipation 08/29/17 15:00 09/28/17 14:59 Tramadol HCl (Ultram) 50 mg Q6HR GT 09/05/17 18:00 09/07/17 13:59 09/06/17 11:44 Ayala Forman M.D. September 06, 2017 13:21
--- NOTE | 2017-09-06 15:53 | Pulmonology Progress Note ---
Assessment/Plan Problems: (1) Sepsis (2) Osteomyelitis of ankle or foot, left, acute (3) G tube feedings (4) Functional quadriplegia (5) Right hemiparesis (6) Diabetes Assessment/Plan tolerated surgery looks comfortable continue abx check labs tolerating feeding check cultures dvt prophylaxis wound care Subjective ROS Limited/Unobtainable: No Constitutional: Reports: no symptoms HEENT: Repors: no symptoms Respiratory: Reports: no symptoms Cardiovascular: Reports: no symptoms Allergies: Coded Allergies: No Known Allergies (Verified , 01/27/10) Objective Last 24 Hour Vital Signs Date Time Temp Pulse Resp B/P (MAP) Pulse Ox O2 Delivery O2 Flow Rate FiO2 09/06/17 12:43 98.6 09/06/17 12:02 98.6 98 20 136/65 99 98.6 09/06/17 11:44 98.4 09/06/17 10:13 98.4 09/06/17 09:43 98.4 09/06/17 09:03 100 133/66 09/06/17 08:48 98.4 100 20 133/66 99 98.4 09/06/17 04:00 99.0 96 20 133/49 97 99.0 09/06/17 00:00 98.9 100 19 106/45 100 98.9 09/05/17 22:20 96 149/66 09/05/17 20:00 99.8 102 19 153/74 98 99.8 09/05/17 16:00 99.3 96 20 149/66 99 99.3 Intake and Output 09/05/17 09/06/17 19:00 07:00 Intake Total 50 ml Output Total 350 ml 180 ml Balance -350 ml -130 ml Tube Feeding 50 ml Output Urine Total 350 ml 180 ml # Bowel Movements 2 Objective General Appearance: WD/WN, no acute distress HEENT: atraumatic Respiratory/Chest: normal breath sounds Abdomen: normal bowel sounds, soft, non tender Extremities: no cyanosis, AKA Laboratory Tests 09/05/17 16:35: C-Reactive Protein, Quantitative 14.6H 09/06/17 04:20: C-Reactive Protein, Quantitative 33.3H, White Blood Count 10.0, Red Blood Count 2.87L, Hemoglobin 9.1L, Hematocrit 27.5L, Mean Corpuscular Volume 96, Mean Corpuscular Hemoglobin 31.7H, Mean Corpuscular Hemoglobin Concent 33.1, Red Cell Distribution Width 14.5, Platelet Count 186, Mean Platelet Volume 7.5, Neutrophils (%) (Auto) 60.9, Lymphocytes (%) (Auto) 28.1, Monocytes (%) (Auto) 7.9, Eosinophils (%) (Auto) 2.6, Basophils (%) (Auto) 0.6, Sodium Level 141, Potassium Level 3.7, Chloride Level 105, Carbon Dioxide Level 27, Anion Gap 9, Blood Urea Nitrogen 40H, Creatinine 2.2H, Estimat Glomerular Filtration Rate , Glucose Level 211H, Uric Acid 5.4, Calcium Level 8.5, Phosphorus Level 3.6, Magnesium Level 2.1, Total Bilirubin 0.3, Aspartate Amino Transf (AST/SGOT) 15, Alanine Aminotransferase (ALT/SGPT) 11L, Alkaline Phosphatase 76, Pro-B-Type Natriuretic Peptide 751H, Total Protein 8.8H, Albumin 2.3L, Globulin 6.5, Albumin/Globulin Ratio 0.4L, Random Vancomycin Level 15.2 Current Medications Medications (Trade) Dose Ordered Sig/Nancy Route PRN Reason Start Time Stop Time Status Last Admin Dose Admin Acetaminophen (Tylenol) 650 mg Q4H PRN GT temp > 100 / mild pain 08/28/17 15:00 09/27/17 14:59 Amlodipine Besylate (Norvasc) 5 mg Q12HR GT 09/05/17 21:00 10/05/17 20:59 09/06/17 09:03 Chlorhexidine Gluconate (Jossy-Hex 2%) 1 applic DAILY@1999 TOPIC 08/28/17 20:00 09/27/17 19:59 09/05/17 22:18 Clonidine HCl (Catapres Tab) 0.1 mg Q6H PRN GT For High BP 160 syst 08/28/17 15:00 09/27/17 14:59 09/05/17 11:46 Dextrose (Dextrose 50%) 25 ml STAT PRN IV Hypoglycemia 08/28/17 15:00 09/27/17 14:59 Dextrose (Dextrose 50%) 50 ml STAT PRN IV Hypoglycemia 08/28/17 15:00 09/27/17 14:59 Famotidine (Pepcid) 20 mg BID GT 08/28/17 18:00 5/20/18 08:59 09/06/17 09:02 Hydromorphone HCl (Dilaudid) 1 mg Q4H PRN IVP Severe Pain (Pain Scale 7-10) 09/04/17 19:00 09/07/17 10:59 09/06/17 09:43 Insulin Aspart (NovoLOG) EVERY 6 HOURS SUBQ 08/28/17 18:00 09/22/17 11:29 09/06/17 11:39 Levetiracetam (Keppra) 500 mg Q12HR GT 08/29/17 21:00 09/28/17 20:59 09/06/17 09:02 Metoclopramide HCl (Reglan) 5 mg Q6HR GT 08/28/17 18:00 09/22/17 00:00 09/06/17 11:44 Ondansetron HCl (Zofran) 4 mg Q6H PRN IVP Nausea & Vomiting 08/28/17 15:00 09/21/17 14:59 Polyethylene Glycol (Miralax) 17 gm DAILYPRN PRN GT Constipation 08/29/17 15:00 09/28/17 14:59 Tramadol HCl (Ultram) 50 mg Q6HR GT 09/05/17 18:00 09/07/17 13:59 09/06/17 11:44 Saira Lazcano MD September 06, 2017 15:53
[2017-09-06 15:59] VITALS: BP 135/68
[2017-09-06] MEDS ORDERED: Tubing IV Secondary IV ONE (16:43)
[2017-09-06] MEDS ORDERED: NS 500ML ONE (16:43)
[2017-09-06 20:00] VITALS: BP 166/71
[2017-09-06] MEDS: Dyna-Hex 2% Top Sol 2oz TOPIC SCH (20:32)
[2017-09-07] VITALS (7 sets, daily range): BP systolic 137–164; BP diastolic 58–82
[2017-09-07] MEDS: Metoclopramide 10mg/10ml Liq GT SCH ×4 (00:39→17:43)
[2017-09-07] MEDS: traMADol 50mg tab GT SCH ×3 (00:39→12:35)
[2017-09-07] MEDS: NovoLOG Insulin Flexpen SUBQ SCH ×4 (00:40→17:51)
[2017-09-07] MEDS: levETIRAcetam 500mg/5ml Liquid GT SCH ×2 (09:03→20:51)
--- NOTE | 2017-09-07 10:04 | General Progress Note ---
Assessment/Plan Problem List: (1) UTI (urinary tract infection) (2) Sepsis ICD Codes: A41.9 - Sepsis, unspecified organism SNOMED: 81789312 (3) DVT (deep vein thrombosis) in ICD Codes: O22.30 - Deep phlebothrombosis in , unspecified trimester; I82.409 - Acute embolism and thrombosis of unspecified deep veins of unspecified lower extremity SNOMED: 58463088 (4) Diabetes ICD Codes: E11.9 - Type 2 diabetes mellitus without complications SNOMED: 97845093 (5) Anemia ICD Codes: D64.9 - Anemia, unspecified SNOMED: 697672281 Qualifiers: (6) Hypernatremia ICD Codes: E87.0 - Hyperosmolality and hypernatremia SNOMED: 20165104 (7) Osteomyelitis of ankle or foot, left, acute ICD Codes: M86.172 - Other acute osteomyelitis, left ankle and foot SNOMED: 397117845 (8) Pneumonia involving left lung ICD Codes: J18.9 - Pneumonia, unspecified organism SNOMED: 012420730 Status: stable Assessment/Plan labs today pending- Post amputation management 09/04/17 On Tramadol, stop Vanco, Stop Zosyn Fluid challenge, for rising Cr Plan to DC in am off Antibiotics (1) Osteomyelitis of ankle or foot, left, acute Assessment & Plan: on chronic, with worsening osteomyelitis due to poor circulation in the left leg, will continue wide spectrum antibiotics coverage with vancomycin and Zosyn , I had detailed discussion with the conservative palmira whitleyeres regarding the patient condition and the need to consider amputation since she is not responding well to antibiotics alone, and we went over the risk and the benefits of the amputation, and she understood that the patient will have bad outcome if she failes the current regimen of antibiotics she is on , which include septic shock with multiorgan failure and . she will think about it . discussed with other consultants (2) Heel ulcer Assessment & Plan: not improving with worsening osteomyelitis , she will need amputation for source control , will continue wide spectrum antibiotics pending conservative decision regarding amputation DPOA refuses amputation will arrange PICC and DC planning Per ID recs Conservator left messages and so far can not arrange for bioethics [employer] consult resume Lovenox for DVT Per ID and Surg GT feeding per order transfuse as needed Subjective ROS Limited/Unobtainable: No Constitutional: Reports: malaise Allergies: Coded Allergies: No Known Allergies (Verified , 01/27/10) Objective Last 24 Hour Vital Signs Date Time Temp Pulse Resp B/P (MAP) Pulse Ox O2 Delivery O2 Flow Rate FiO2 09/07/17 09:44 97.5 09/07/17 09:14 97.5 09/07/17 09:03 94 162/72 09/07/17 09:03 162/72 09/07/17 08:16 Nasal Cannula 2.0 28 09/07/17 08:16 99 Nasal Cannula 2.0 28 09/07/17 08:14 97.5 94 22 162/72 98 97.5 09/07/17 04:00 98.2 88 18 145/68 98 Room Air 98.2 09/07/17 00:30 99.7 156/75 99.7 09/07/17 00:00 Nasal Cannula 09/07/17 00:00 100.1 104 20 164/74 100 100.1 09/06/17 20:32 108 166/77 09/06/17 20:32 166/77 09/06/17 20:10 98 Nasal Cannula 3.0 32 09/06/17 20:10 Nasal Cannula 3.0 32 09/06/17 20:00 100.0 108 21 166/71 97 100.0 09/06/17 20:00 Nasal Cannula 09/06/17 18:54 98.2 09/06/17 17:55 98.2 09/06/17 15:59 98.2 101 20 135/68 99 98.2 09/06/17 12:02 98.6 98 20 136/65 99 98.6 09/06/17 11:44 98.4 Intake and Output 09/06/17 09/07/17 19:00 07:00 Intake Total 1910 ml 605 ml Output Total 1200 ml 700 ml Balance 710 ml -95 ml Free Water 160 ml 200 ml IV Total 1230 ml Tube Feeding 520 ml 405 ml Output Urine Total 1200 ml 700 ml # Bowel Movements 1 2 Height (Feet): 5 Height (Inches): 4.00 Weight (Pounds): 190 General Appearance: no apparent distress Respiratory/Chest: decreased breath sounds Abdomen: soft Objective no change GEORGE MONDRAGON September 07, 2017 10:04
[2017-09-07] MEDS ORDERED: Metoprolol Tartrate 12.5mg TAB GT ONE (10:15)
[2017-09-07 11:06] LABS: BASOPHILS % (AUTO) 0.4 % (0.0-2.0); EOSINOPHILS % (AUTO) 2.4 % (0.0-3.0); HEMATOCRIT 24.9 % (37.0-47.0); HEMOGLOBIN 8.1 G/DL (12.0-16.0); LYMPHOCYTES % (AUTO) 17.7 % (20.0-45.0); MEAN CORPUSCULAR VOLUME 97 FL (80-99); MONOCYTES % (AUTO) 6.4 % (1.0-10.0); NEUTROPHILS % (AUTO) 73.1 % (45.0-75.0); PLATELET COUNT 196 K/UL (150-450); RED BLOOD COUNT 2.57 M/UL (4.20-5.40); RED CELL DISTRIBUTION WIDTH 14.2 % (11.6-14.8); WHITE BLOOD COUNT 10.7 K/UL (4.8-10.8)
[2017-09-07 11:23] LABS: ANION GAP 10 mmol/L (5-15); BLOOD UREA NITROGEN 38 mg/dL (7-18); CALCIUM 8.8 MG/DL (8.5-10.1); CARBON DIOXIDE 27 MMOL/L (21-32); CHLORIDE 112 MMOL/L (98-107); CREATININE 1.7 MG/DL (0.55-1.30); POTASSIUM 3.5 MMOL/L (3.5-5.1); SODIUM 149 MMOL/L (136-145)
[2017-09-07 11:35] LABS: ALANINE AMINOTRANSFERASE 12 U/L (12-78); ALBUMIN 2.4 G/DL (3.4-5.0); ALBUMIN/GLOBULIN RATIO 0.4 (1.0-2.7); ALKALINE PHOSPHATASE 67 U/L (46-116); ASPARTATE AMINO TRANSFERASE 14 U/L (15-37); BILIRUBIN,TOTAL 0.3 MG/DL (0.2-1.0); GAMMA GLUTAMYL TRANSPEPTIDASE 41 U/L (5-85); PHOSPHORUS 2.3 MG/DL (2.5-4.9)
--- NOTE | 2017-09-07 12:11 | Infectious Diseases Prog Note ---
Assessment/Plan Problems: (1) Osteomyelitis of ankle or foot, left, acute Assessment & Plan: with worsening infection and osteomyelitis , S/P AKA , continue to monitor off vancomycin and Zosyn since surgical wound looks clean and dry with no sign of infection , continue local wound care as per surgery (2) Sepsis Assessment & Plan: due to the above , resolved, had source control with amputation , monitor off antibiotics (3) Diabetes Assessment & Plan: recommend tight glycemic control to keep blood glucose between 100-140 Subjective ROS Limited/Unobtainable: Yes Allergies: Coded Allergies: No Known Allergies (Verified , 01/27/10) Subjective she was comfortable, lying in bed , with no signs of distress , L AKA wound looks clean and dry , no bleeding, no drainage , no fever today Objective Vital Signs Last 24 Hour Vital Signs Date Time Temp Pulse Resp B/P (MAP) Pulse Ox O2 Delivery O2 Flow Rate FiO2 09/07/17 11:57 97.7 76 20 140/58 98 97.7 09/07/17 11:03 94 162/72 09/07/17 09:44 97.5 09/07/17 09:14 97.5 09/07/17 09:03 94 162/72 09/07/17 09:03 162/72 09/07/17 08:16 Nasal Cannula 2.0 28 09/07/17 08:16 99 Nasal Cannula 2.0 28 09/07/17 08:14 97.5 94 22 162/72 98 97.5 09/07/17 04:00 98.2 88 18 145/68 98 Room Air 98.2 09/07/17 00:30 99.7 156/75 99.7 09/07/17 00:00 Nasal Cannula 09/07/17 00:00 100.1 104 20 164/74 100 100.1 09/06/17 20:32 108 166/77 09/06/17 20:32 166/77 09/06/17 20:10 98 Nasal Cannula 3.0 32 09/06/17 20:10 Nasal Cannula 3.0 32 09/06/17 20:00 100.0 108 21 166/71 97 100.0 09/06/17 20:00 Nasal Cannula 09/06/17 18:54 98.2 09/06/17 17:55 98.2 09/06/17 15:59 98.2 101 20 135/68 99 98.2 Height (Feet): 5 Height (Inches): 4.00 Weight (Pounds): 190 General Appearance: WD/WN, no acute distress HEENT: normocephalic, atraumatic, anicteric, no JVD Respiratory/Chest: chest wall non-tender, normal breath sounds, no respiratory distress, no accessory muscle use, decreased breath sounds Cardiovascular: normal peripheral pulses, normal rate, regular rhythm, no gallop/murmur, no JVD Abdomen: normal bowel sounds, soft, non tender, no organomegaly, non distended , no mass, no scars Extremities: no cyanosis, no clubbing Skin: no rash, no lesions, no ulcers Neurologic/Psychiatric: unresponsiveness Lymphatic: no neck adenopathy, no groin adenopathy Laboratory Tests Test 09/07/17 10:30 White Blood Count 10.7 K/UL (4.8-10.8) Red Blood Count 2.57 M/UL (4.20-5.40) L Hemoglobin 8.1 G/DL (12.0-16.0) L Hematocrit 24.9 % (37.0-47.0) L Mean Corpuscular Volume 97 FL (80-99) Mean Corpuscular Hemoglobin 31.7 PG (27.0-31.0) H Mean Corpuscular Hemoglobin Concent 32.7 G/DL (32.0-36.0) Red Cell Distribution Width 14.2 % (11.6-14.8) Platelet Count 196 K/UL (150-450) Mean Platelet Volume 7.6 FL (6.5-10.1) Neutrophils (%) (Auto) 73.1 % (45.0-75.0) Lymphocytes (%) (Auto) 17.7 % (20.0-45.0) L Monocytes (%) (Auto) 6.4 % (1.0-10.0) Eosinophils (%) (Auto) 2.4 % (0.0-3.0) Basophils (%) (Auto) 0.4 % (0.0-2.0) Sodium Level 149 MMOL/L (136-145) H Potassium Level 3.5 MMOL/L (3.5-5.1) Chloride Level 112 MMOL/L (98-107) H Carbon Dioxide Level 27 MMOL/L (21-32) Anion Gap 10 mmol/L (5-15) Blood Urea Nitrogen 38 mg/dL (7-18) H Creatinine 1.7 MG/DL (0.55-1.30) H Estimat Glomerular Filtration Rate mL/min (>60) Glucose Level 201 MG/DL (74-106) H Uric Acid 5.9 MG/DL (2.6-7.2) Calcium Level 8.8 MG/DL (8.5-10.1) Phosphorus Level 2.3 MG/DL (2.5-4.9) L Magnesium Level 2.0 MG/DL (1.8-2.4) Total Bilirubin 0.3 MG/DL (0.2-1.0) Gamma Glutamyl Transpeptidase 41 U/L (5-85) Aspartate Amino Transf (AST/SGOT) 14 U/L (15-37) L Alanine Aminotransferase (ALT/SGPT) 12 U/L (12-78) Alkaline Phosphatase 67 U/L (46-116) Pro-B-Type Natriuretic Peptide 2601 pg/mL (0-125) H Total Protein 8.3 G/DL (6.4-8.2) H Albumin 2.4 G/DL (3.4-5.0) L Globulin 5.9 g/dL Albumin/Globulin Ratio 0.4 (1.0-2.7) L Current Medications Medications (Trade) Dose Ordered Sig/Nancy Route PRN Reason Start Time Stop Time Status Last Admin Dose Admin Acetaminophen (Tylenol) 650 mg Q4H PRN GT temp > 100 / mild pain 08/28/17 15:00 09/27/17 14:59 Amlodipine Besylate (Norvasc) 5 mg Q12HR GT 09/05/17 21:00 10/05/17 20:59 09/07/17 09:03 Chlorhexidine Gluconate (Jossy-Hex 2%) 1 applic DAILY@1999 TOPIC 08/28/17 20:00 09/27/17 19:59 09/06/17 20:32 Clonidine HCl (Catapres Tab) 0.1 mg Q6H PRN GT For High BP 160 syst 08/28/17 15:00 09/27/17 14:59 09/07/17 09:03 Dextrose (Dextrose 50%) 25 ml STAT PRN IV Hypoglycemia 08/28/17 15:00 09/27/17 14:59 Dextrose (Dextrose 50%) 50 ml STAT PRN IV Hypoglycemia 08/28/17 15:00 09/27/17 14:59 Famotidine (Pepcid) 20 mg BID GT 08/28/17 18:00 09/22/17 08:59 09/07/17 09:03 Insulin Aspart (NovoLOG) EVERY 6 HOURS SUBQ 08/28/17 18:00 09/22/17 11:29 09/07/17 05:52 Levetiracetam (Keppra) 500 mg Q12HR GT 08/29/17 21:00 09/28/17 20:59 09/07/17 09:03 Metoclopramide HCl (Reglan) 5 mg Q6HR GT 08/28/17 18:00 09/22/17 00:00 09/07/17 05:50 Metoprolol Tartrate (Lopressor) 12.5 mg Q12HR GT 09/07/17 21:00 10/07/17 20:59 Ondansetron HCl (Zofran) 4 mg Q6H PRN IVP Nausea & Vomiting 08/28/17 15:00 09/21/17 14:59 Polyethylene Glycol (Miralax) 17 gm DAILYPRN PRN GT Constipation 08/29/17 15:00 09/28/17 14:59 Tramadol HCl (Ultram) 50 mg Q6HR GT 09/05/17 18:00 09/07/17 13:59 09/07/17 05:51 Ayala Forman M.D. September 07, 2017 12:11
--- NOTE | 2017-09-07 13:27 | Pulmonology Progress Note ---
Assessment/Plan Assessment/Plan ASSESSMENT sepsis Left lower extremity chronic osteomyelitis with infected ulcer and gangrene refractory to maximal medical therapy. Status post left above-knee amputation maintain Functional quadriplegia Diabetes mellitus Dysphagia, G-tube Anemia of chronic disease Acute DVT right lower extremity superficial femoral vein Hypertension Seizure disorder PLAN OF CARE Med Surg floor status post antibiotics Stool for C. difficile negative, blood culture negative , left foor wound culture +Proteus and Pseudomonas ID follows stump care Surgery closely follows elevate left stump pain management Venous duplex acute DVT right lower extremity superficial femoral vein was on Lovenox prior to surgery resume when cleared by surgeon Blood pressure management with calcium channel calos blood sugar management with sliding scale insulin strict aspiration/reflux precautions G-tube feeding, monitor tolerance seizure precautions continue Keppra anemia workup consistent with anemia of chronic disease hemoglobin and hematocrit at baseline , status post transfusion of 2 units of packed red blood cells while in the hospital ,transfuse additional unit today as per PMD bowel regimen GI prophylaxis case discussed and evaluated by supervising physician Subjective Allergies: Coded Allergies: No Known Allergies (Verified , 01/27/10) Subjective HH with trend down today no signs of distress stump with dressing, no oozing Objective Last 24 Hour Vital Signs Date Time Temp Pulse Resp B/P (MAP) Pulse Ox O2 Delivery O2 Flow Rate FiO2 09/07/17 12:35 97.7 09/07/17 11:57 97.7 76 20 140/58 98 97.7 09/07/17 11:03 94 162/72 09/07/17 09:44 97.5 09/07/17 09:14 97.5 09/07/17 09:03 94 162/72 09/07/17 09:03 162/72 09/07/17 08:16 Nasal Cannula 2.0 28 09/07/17 08:16 99 Nasal Cannula 2.0 28 09/07/17 08:14 97.5 94 22 162/72 98 97.5 09/07/17 04:00 98.2 88 18 145/68 98 Room Air 98.2 09/07/17 00:30 99.7 156/75 99.7 09/07/17 00:00 Nasal Cannula 09/07/17 00:00 100.1 104 20 164/74 100 100.1 09/06/17 20:32 108 166/77 09/06/17 20:32 166/77 09/06/17 20:10 98 Nasal Cannula 3.0 32 09/06/17 20:10 Nasal Cannula 3.0 32 09/06/17 20:00 100.0 108 21 166/71 97 100.0 09/06/17 20:00 Nasal Cannula 09/06/17 18:54 98.2 09/06/17 17:55 98.2 09/06/17 15:59 98.2 101 20 135/68 99 98.2 Intake and Output 09/06/17 09/07/17 19:00 07:00 Intake Total 1910 ml 605 ml Output Total 1200 ml 700 ml Balance 710 ml -95 ml Free Water 160 ml 200 ml IV Total 1230 ml Tube Feeding 520 ml 405 ml Output Urine Total 1200 ml 700 ml # Bowel Movements 1 2 General Appearance: no acute distress, other - bedridden, obese AA female, minimally responsive HEENT: normocephalic, atraumatic, anicteric Respiratory/Chest: lungs clear - with moderate air exchange Cardiovascular: normal rate Abdomen: normal bowel sounds, soft, non tender, other - GT with TF Extremities: other - L AKA , stump with dresing and GEMMA wrap, dry Neurologic/Psychiatric: abnormal gait - bedridden , other - minimally responsive Laboratory Tests 09/07/17 10:30: White Blood Count 10.7, Red Blood Count 2.57L, Hemoglobin 8.1L, Hematocrit 24.9L , Mean Corpuscular Volume 97, Mean Corpuscular Hemoglobin 31.7H, Mean Corpuscular Hemoglobin Concent 32.7, Red Cell Distribution Width 14.2, Platelet Count 196, Mean Platelet Volume 7.6, Neutrophils (%) (Auto) 73.1, Lymphocytes (% ) (Auto) 17.7L, Monocytes (%) (Auto) 6.4, Eosinophils (%) (Auto) 2.4, Basophils (%) (Auto) 0.4, Sodium Level 149H, Potassium Level 3.5, Chloride Level 112H, Carbon Dioxide Level 27, Anion Gap 10, Blood Urea Nitrogen 38H, Creatinine 1.7H , Estimat Glomerular Filtration Rate , Glucose Level 201H, Uric Acid 5.9, Calcium Level 8.8, Phosphorus Level 2.3L, Magnesium Level 2.0, Total Bilirubin 0.3, Gamma Glutamyl Transpeptidase 41, Aspartate Amino Transf (AST/SGOT) 14L, Alanine Aminotransferase (ALT/SGPT) 12, Alkaline Phosphatase 67, Pro-B-Type Natriuretic Peptide 2601H, Total Protein 8.3H, Albumin 2.4L, Globulin 5.9, Albumin/Globulin Ratio 0.4L Current Medications Medications (Trade) Dose Ordered Sig/Nancy Route PRN Reason Start Time Stop Time Status Last Admin Dose Admin Acetaminophen (Tylenol) 650 mg Q4H PRN GT temp > 100 / mild pain 08/28/17 15:00 09/27/17 14:59 Amlodipine Besylate (Norvasc) 5 mg Q12HR GT 09/05/17 21:00 10/05/17 20:59 09/07/17 09:03 Chlorhexidine Gluconate (Jossy-Hex 2%) 1 applic DAILY@1999 TOPIC 08/28/17 20:00 09/27/17 19:59 09/06/17 20:32 Clonidine HCl (Catapres Tab) 0.1 mg Q6H PRN GT For High BP 160 syst 08/28/17 15:00 09/27/17 14:59 09/07/17 09:03 Dextrose (Dextrose 50%) 25 ml STAT PRN IV Hypoglycemia 08/28/17 15:00 09/27/17 14:59 Dextrose (Dextrose 50%) 50 ml STAT PRN IV Hypoglycemia 08/28/17 15:00 09/27/17 14:59 Famotidine (Pepcid) 20 mg BID GT 08/28/17 18:00 09/22/17 08:59 09/07/17 09:03 Insulin Aspart (NovoLOG) EVERY 6 HOURS SUBQ 08/28/17 18:00 09/22/17 11:29 09/07/17 12:26 Levetiracetam (Keppra) 500 mg Q12HR GT 08/29/17 21:00 09/28/17 20:59 09/07/17 09:03 Metoclopramide HCl (Reglan) 5 mg Q6HR GT 08/28/17 18:00 09/22/17 00:00 09/07/17 05:50 Metoprolol Tartrate (Lopressor) 12.5 mg Q12HR GT 09/07/17 21:00 10/07/17 20:59 Ondansetron HCl (Zofran) 4 mg Q6H PRN IVP Nausea & Vomiting 08/28/17 15:00 09/21/17 14:59 Polyethylene Glycol (Miralax) 17 gm DAILYPRN PRN GT Constipation 08/29/17 15:00 09/28/17 14:59 Tramadol HCl (Ultram) 50 mg Q6HR GT 09/05/17 18:00 09/07/17 13:59 09/07/17 12:35 Angel ([facility])Radha NP September 07, 2017 13:27
--- NOTE | 2017-09-07 15:07 | General Progress Note ---
Progress Note Progress Note Surgery: No acute events. doing okay. no signs of significant pain or discomfort. afebrile, HD stable, exam stable left AKA dressings clean, dry, intact. elevated with pillows. wound c/d/i. no drainage noted. no signs of infection. POD #3 s/p left AKA for chronic osteomyelitis with large foul smelling infected wounds in left foot/heel/leg refractory to maximal medical therapy. -keep left extremity elevated -diet as tolerated -pain control -rx as written -okay to d/c Abx from surgical standpoint now that source controlled okay for discharge to subacute facility. will need to follow up with me in 1-2 weeks for wound check then 2 weeks after for planned staple removal in 4 weeks from operative date. okay for dressings Taco Carrillo September 07, 2017 15:06
[2017-09-07] MEDS: Dyna-Hex 2% Top Sol 2oz TOPIC SCH (20:51)
[2017-09-07] MEDS: Metoprolol Tartrate 12.5mg TAB GT SCH (20:52)
[2017-09-08] MEDS: Metoclopramide 10mg/10ml Liq GT SCH ×4 (00:23→18:00)
[2017-09-08] MEDS: NovoLOG Insulin Flexpen SUBQ SCH ×4 (00:27→18:12)
[2017-09-08 00:43] VITALS: BP 158/62
[2017-09-08] MEDS ORDERED: Phenytoin 1,000 MG in NS 275 ML IVPB ONE (02:00)
[2017-09-08 04:16] VITALS: BP 162/73
[2017-09-08 06:05] LABS: BASOPHILS % (AUTO) 0.4 % (0.0-2.0); EOSINOPHILS % (AUTO) 3.3 % (0.0-3.0); HEMATOCRIT 27.8 % (37.0-47.0); HEMOGLOBIN 9.2 G/DL (12.0-16.0); LYMPHOCYTES % (AUTO) 20.3 % (20.0-45.0); MEAN CORPUSCULAR VOLUME 94 FL (80-99); MONOCYTES % (AUTO) 5.6 % (1.0-10.0); NEUTROPHILS % (AUTO) 70.4 % (45.0-75.0); PLATELET COUNT 197 K/UL (150-450); RED BLOOD COUNT 2.97 M/UL (4.20-5.40); RED CELL DISTRIBUTION WIDTH 15.6 % (11.6-14.8); WHITE BLOOD COUNT 10.7 K/UL (4.8-10.8)
[2017-09-08 06:21] LABS: ALBUMIN 2.3 G/DL (3.4-5.0); ALBUMIN/GLOBULIN RATIO 0.4 (1.0-2.7); CHLORIDE 113 MMOL/L (98-107); CREATININE 1.8 MG/DL (0.55-1.30); POTASSIUM 3.7 MMOL/L (3.5-5.1)
[2017-09-08 06:46] LABS: ALANINE AMINOTRANSFERASE 10 U/L (12-78); ALKALINE PHOSPHATASE 76 U/L (46-116); ANION GAP 10 mmol/L (5-15); ASPARTATE AMINO TRANSFERASE 14 U/L (15-37); BILIRUBIN,TOTAL 0.3 MG/DL (0.2-1.0); BLOOD UREA NITROGEN 44 mg/dL (7-18); CALCIUM 8.7 MG/DL (8.5-10.1); CARBON DIOXIDE 27 MMOL/L (21-32); PHOSPHORUS 1.9 MG/DL (2.5-4.9); SODIUM 150 MMOL/L (136-145)
[2017-09-08 08:00] VITALS: BP 166/80
[2017-09-08] MEDS: Metoprolol Tartrate 12.5mg TAB GT SCH (09:35)
[2017-09-08] MEDS: levETIRAcetam 500mg/5ml Liquid GT SCH ×2 (09:36→21:48)
--- NOTE | 2017-09-08 10:45 | Pulmonology Progress Note ---
Assessment/Plan Assessment/Plan ASSESSMENT sepsis Left lower extremity chronic osteomyelitis with infected ulcer and gangrene refractory to maximal medical therapy. Status post left above-knee amputation maintain Functional quadriplegia Diabetes mellitus Dysphagia, G-tube Anemia of chronic disease Acute DVT right lower extremity superficial femoral vein Hypertension Seizure disorder PLAN OF CARE Med Surg floor status post antibiotics Stool for C. difficile negative, blood culture negative , left foor wound culture +Proteus and Pseudomonas ID follows stump care Surgery closely follows elevate left stump pain management Venous duplex acute DVT right lower extremity superficial femoral vein was on Lovenox prior to surgery resume when cleared by surgeon Blood pressure management with calcium channel calos blood sugar management with sliding scale insulin strict aspiration/reflux precautions G-tube feeding, monitor tolerance seizure precautions continue Keppra anemia workup consistent with anemia of chronic disease hemoglobin and hematocrit at baseline after 1 u PRBC 5/5 bowel regimen GI prophylaxis case discussed and evaluated by supervising physician Subjective Allergies: Coded Allergies: No Known Allergies (Verified , 01/27/10) Subjective stump with dressing, no oozing s/p 1 u PRBC /5, HH better Objective Last 24 Hour Vital Signs Date Time Temp Pulse Resp B/P (MAP) Pulse Ox O2 Delivery O2 Flow Rate FiO2 09/08/17 09:35 91 166/80 09/08/17 09:35 91 166/80 09/08/17 09:35 166/80 09/08/17 08:00 97.7 91 20 166/80 98 Nasal Cannula 2.0 97.7 09/08/17 04:16 97.9 82 20 162/73 100 Nasal Cannula 97.9 09/08/17 00:43 97.5 88 20 158/62 96 Room Air 97.5 09/07/17 21:33 97.9 09/07/17 20:52 87 141/82 09/07/17 20:51 87 141/82 09/07/17 19:43 97.9 89 20 137/82 98 Nasal Cannula 97.9 09/07/17 16:09 98.2 96 22 144/66 98 98.2 09/07/17 13:34 97.7 09/07/17 12:35 97.7 09/07/17 11:57 97.7 76 20 140/58 98 97.7 09/07/17 11:03 94 162/72 Intake and Output 09/07/17 09/08/17 19:00 07:00 Intake Total 690 ml 735 ml Output Total 700 ml Balance -10 ml 735 ml Free Water 150 ml 240 ml Tube Feeding 540 ml 495 ml Output Urine Total 700 ml # Bowel Movements 3 2 Objective General Appearance: no acute distress, bedridden, obese AA female, minimally responsive HEENT: normocephalic, atraumatic, anicteric Respiratory/Chest: lungs aditi with moderate air exchange Cardiovascular: normal rate Abdomen: normal bowel sounds, soft, non tender, GT with TF Extremities: L AKA , stump with dressing and GEMMA wrap, dry Neurologic/Psychiatric: abnormal gait , bedridden , minimally responsive Laboratory Tests 09/08/17 05:30: White Blood Count 10.7, Red Blood Count 2.97L, Hemoglobin 9.2L, Hematocrit 27.8L , Mean Corpuscular Volume 94, Mean Corpuscular Hemoglobin 31.0, Mean Corpuscular Hemoglobin Concent 33.1, Red Cell Distribution Width 15.6H, Platelet Count 197, Mean Platelet Volume 8.1, Neutrophils (%) (Auto) 70.4, Lymphocytes (%) (Auto) 20.3, Monocytes (%) (Auto) 5.6, Eosinophils (%) (Auto) 3.3H, Basophils (%) (Auto) 0.4, Sodium Level 150H, Potassium Level 3.7, Chloride Level 113H, Carbon Dioxide Level 27, Anion Gap 10, Blood Urea Nitrogen 44H, Creatinine 1.8H, Estimat Glomerular Filtration Rate , Glucose Level 242H, Calcium Level 8.7, Phosphorus Level 1.9L, Magnesium Level 1.9, Total Bilirubin 0.3, Aspartate Amino Transf (AST/SGOT) 14L, Alanine Aminotransferase (ALT/SGPT) 10L, Alkaline Phosphatase 76, Total Protein 8.3H, Albumin 2.3L, Globulin 6.0, Albumin/Globulin Ratio 0.4L Current Medications Medications (Trade) Dose Ordered Sig/Nancy Route PRN Reason Start Time Stop Time Status Last Admin Dose Admin Acetaminophen (Tylenol) 650 mg Q4H PRN GT temp > 100 / mild pain 08/28/17 15:00 09/27/17 14:59 09/07/17 20:53 Amlodipine Besylate (Norvasc) 5 mg Q12HR GT 09/05/17 21:00 10/05/17 20:59 09/08/17 09:35 Chlorhexidine Gluconate (Jossy-Hex 2%) 1 applic DAILY@2000 TOPIC 08/28/17 20:00 09/27/17 19:59 09/07/17 20:51 Clonidine HCl (Catapres Tab) 0.1 mg Q6H PRN GT For High BP 160 syst 08/28/17 15:00 09/27/17 14:59 09/08/17 09:35 Dextrose (Dextrose 50%) 25 ml STAT PRN IV Hypoglycemia 08/28/17 15:00 09/27/17 14:59 Dextrose (Dextrose 50%) 50 ml STAT PRN IV Hypoglycemia 08/28/17 15:00 09/27/17 14:59 Famotidine (Pepcid) 20 mg BID GT 08/28/17 18:00 09/22/17 08:59 09/08/17 09:35 Insulin Aspart (NovoLOG) EVERY 6 HOURS SUBQ 08/28/17 18:00 09/22/17 11:29 09/08/17 06:11 Levetiracetam (Keppra) 500 mg Q12HR GT 08/29/17 21:00 09/28/17 20:59 09/08/17 09:36 Metoclopramide HCl (Reglan) 5 mg Q6HR GT 08/28/17 18:00 09/22/17 00:00 09/08/17 06:09 Metoprolol Tartrate (Lopressor) 12.5 mg Q12HR GT 09/07/17 21:00 10/07/17 20:59 09/08/17 09:35 Ondansetron HCl (Zofran) 4 mg Q6H PRN IVP Nausea & Vomiting 08/28/17 15:00 09/21/17 14:59 Polyethylene Glycol (Miralax) 17 gm DAILYPRN PRN GT Constipation 08/29/17 15:00 09/28/17 14:59 Radha Ortiz NP ([facility]) September 08, 2017 10:45
--- NOTE | 2017-09-08 11:35 | General Progress Note ---
Assessment/Plan Problem List: (1) UTI (urinary tract infection) (2) Sepsis ICD Codes: A41.9 - Sepsis, unspecified organism SNOMED: 56210511 (3) DVT (deep vein thrombosis) in ICD Codes: O22.30 - Deep phlebothrombosis in , unspecified trimester; I82.409 - Acute embolism and thrombosis of unspecified deep veins of unspecified lower extremity SNOMED: 74020968 (4) Diabetes ICD Codes: E11.9 - Type 2 diabetes mellitus without complications SNOMED: 86268661 (5) Anemia ICD Codes: D64.9 - Anemia, unspecified SNOMED: 514268351 Qualifiers: (6) Hypernatremia ICD Codes: E87.0 - Hyperosmolality and hypernatremia SNOMED: 68341168 (7) Osteomyelitis of ankle or foot, left, acute ICD Codes: M86.172 - Other acute osteomyelitis, left ankle and foot SNOMED: 814348606 (8) Pneumonia involving left lung ICD Codes: J18.9 - Pneumonia, unspecified organism SNOMED: 258285593 (9) Seizure disorder ICD Codes: G40.909 - Epilepsy, unspecified, not intractable, without status epilepticus SNOMED: 743144356 Status: stable Status Narrative had an episode of Sz Assessment/Plan Cr improving- transfused will up anti Sz med dosage ( Keppra) Post amputation management 09/04/17 On Tramadol, stop Vanco, Stop Zosyn Fluid challenge, for rising Cr Plan to DC in am off Antibiotics (1) Osteomyelitis of ankle or foot, left, acute Assessment & Plan: on chronic, with worsening osteomyelitis due to poor circulation in the left leg, will continue wide spectrum antibiotics coverage with vancomycin and Zosyn , I had detailed discussion with the conservative palmira myeres regarding the patient condition and the need to consider amputation since she is not responding well to antibiotics alone, and we went over the risk and the benefits of the amputation, and she understood that the patient will have bad outcome if she failes the current regimen of antibiotics she is on , which include septic shock with multiorgan failure and . she will think about it . discussed with other consultants (2) Heel ulcer Assessment & Plan: not improving with worsening osteomyelitis , she will need amputation for source control , will continue wide spectrum antibiotics pending conservative decision regarding amputation DPOA refuses amputation will arrange PICC and DC planning Per ID recs Conservator left messages and so far can not arrange for bioethics BioEthic consult resume Lovenox for DVT Per ID and Surg GT feeding per order transfuse as needed Subjective ROS Limited/Unobtainable: Yes Allergies: Coded Allergies: No Known Allergies (Verified , 01/27/10) Objective Last 24 Hour Vital Signs Date Time Temp Pulse Resp B/P (MAP) Pulse Ox O2 Delivery O2 Flow Rate FiO2 09/08/17 09:35 91 166/80 09/08/17 09:35 91 166/80 09/08/17 09:35 166/80 09/08/17 08:00 97.7 91 20 166/80 98 Nasal Cannula 2.0 97.7 09/08/17 04:16 97.9 82 20 162/73 100 Nasal Cannula 97.9 09/08/17 00:43 97.5 88 20 158/62 96 Room Air 97.5 09/07/17 21:33 97.9 09/07/17 20:52 87 141/82 09/07/17 20:51 87 141/82 09/07/17 19:43 97.9 89 20 137/82 98 Nasal Cannula 97.9 09/07/17 16:09 98.2 96 22 144/66 98 98.2 09/07/17 13:34 97.7 09/07/17 12:35 97.7 09/07/17 11:57 97.7 76 20 140/58 98 97.7 Intake and Output 09/07/17 09/08/17 19:00 07:00 Intake Total 690 ml 735 ml Output Total 700 ml Balance -10 ml 735 ml Free Water 150 ml 240 ml Tube Feeding 540 ml 495 ml Output Urine Total 700 ml # Bowel Movements 3 2 Laboratory Tests 09/08/17 05:30: White Blood Count 10.7, Red Blood Count 2.97L, Hemoglobin 9.2L, Hematocrit 27.8L , Mean Corpuscular Volume 94, Mean Corpuscular Hemoglobin 31.0, Mean Corpuscular Hemoglobin Concent 33.1, Red Cell Distribution Width 15.6H, Platelet Count 197, Mean Platelet Volume 8.1, Neutrophils (%) (Auto) 70.4, Lymphocytes (%) (Auto) 20.3, Monocytes (%) (Auto) 5.6, Eosinophils (%) (Auto) 3.3H, Basophils (%) (Auto) 0.4, Sodium Level 150H, Potassium Level 3.7, Chloride Level 113H, Carbon Dioxide Level 27, Anion Gap 10, Blood Urea Nitrogen 44H, Creatinine 1.8H, Estimat Glomerular Filtration Rate , Glucose Level 242H, Calcium Level 8.7, Phosphorus Level 1.9L, Magnesium Level 1.9, Total Bilirubin 0.3, Aspartate Amino Transf (AST/SGOT) 14L, Alanine Aminotransferase (ALT/SGPT) 10L, Alkaline Phosphatase 76, Total Protein 8.3H, Albumin 2.3L, Globulin 6.0, Albumin/Globulin Ratio 0.4L Height (Feet): 5 Height (Inches): 4.00 Weight (Pounds): 190 General Appearance: no apparent distress Respiratory/Chest: decreased breath sounds Abdomen: soft Extremities: other - stump clean Objective no change GEORGE MONDRAGON September 08, 2017 11:35
[2017-09-08 12:00] VITALS: BP 139/57
[2017-09-08] MEDS: Phospha 250 Neutral tab GT SCH ×2 (14:23→18:11)
[2017-09-08 16:00] VITALS: BP 169/80
--- NOTE | 2017-09-08 18:21 | Infectious Diseases Prog Note ---
Assessment/Plan Problems: (1) Osteomyelitis of ankle or foot, left, acute Assessment & Plan: with worsening infection and osteomyelitis , S/P AKA , continue to monitor off vancomycin and Zosyn since surgical wound looks clean and dry with no sign of infection , continue local wound care as per surgery (2) Sepsis Assessment & Plan: due to the above , resolved, had source control with amputation , monitor off antibiotics (3) Diabetes Assessment & Plan: recommend tight glycemic control to keep blood glucose between 100-140 Subjective ROS Limited/Unobtainable: Yes Allergies: Coded Allergies: No Known Allergies (Verified , 01/27/10) Subjective she was comfortable, lying in bed , with no signs of distress , L AKA wound looks clean and dry , no bleeding, no drainage , no fever today Objective Vital Signs Last 24 Hour Vital Signs Date Time Temp Pulse Resp B/P (MAP) Pulse Ox O2 Delivery O2 Flow Rate FiO2 09/08/17 16:00 98.2 86 18 169/80 94 Nasal Cannula 2.0 98.2 09/08/17 12:00 98.1 69 18 139/57 92 Nasal Cannula 2.0 98.1 09/08/17 09:35 91 166/80 09/08/17 09:35 91 166/80 09/08/17 09:35 166/80 09/08/17 08:00 97.7 91 20 166/80 98 Nasal Cannula 2.0 97.7 09/08/17 04:16 97.9 82 20 162/73 100 Nasal Cannula 97.9 09/08/17 00:43 97.5 88 20 158/62 96 Room Air 97.5 09/07/17 21:33 97.9 09/07/17 20:52 87 141/82 09/07/17 20:51 87 141/82 09/07/17 19:43 97.9 89 20 137/82 98 Nasal Cannula 97.9 Height (Feet): 5 Height (Inches): 4.00 Weight (Pounds): 190 General Appearance: WD/WN, no acute distress HEENT: normocephalic, atraumatic, anicteric, mucous membranes moist Respiratory/Chest: lungs clear, normal breath sounds, no respiratory distress, no accessory muscle use, decreased breath sounds Cardiovascular: normal peripheral pulses, normal rate, regular rhythm, no gallop/murmur, no JVD Abdomen: normal bowel sounds, soft, non tender, no organomegaly, non distended , no mass, no scars Genitourinary: normal external genitalia Extremities: no cyanosis, no clubbing Skin: no rash, no lesions, no ulcers Neurologic/Psychiatric: unresponsiveness Laboratory Tests Test 09/08/17 05:30 White Blood Count 10.7 K/UL (4.8-10.8) Red Blood Count 2.97 M/UL (4.20-5.40) L Hemoglobin 9.2 G/DL (12.0-16.0) L Hematocrit 27.8 % (37.0-47.0) L Mean Corpuscular Volume 94 FL (80-99) Mean Corpuscular Hemoglobin 31.0 PG (27.0-31.0) Mean Corpuscular Hemoglobin Concent 33.1 G/DL (32.0-36.0) Red Cell Distribution Width 15.6 % (11.6-14.8) H Platelet Count 197 K/UL (150-450) Mean Platelet Volume 8.1 FL (6.5-10.1) Neutrophils (%) (Auto) 70.4 % (45.0-75.0) Lymphocytes (%) (Auto) 20.3 % (20.0-45.0) Monocytes (%) (Auto) 5.6 % (1.0-10.0) Eosinophils (%) (Auto) 3.3 % (0.0-3.0) H Basophils (%) (Auto) 0.4 % (0.0-2.0) Sodium Level 150 MMOL/L (136-145) H Potassium Level 3.7 MMOL/L (3.5-5.1) Chloride Level 113 MMOL/L (98-107) H Carbon Dioxide Level 27 MMOL/L (21-32) Anion Gap 10 mmol/L (5-15) Blood Urea Nitrogen 44 mg/dL (7-18) H Creatinine 1.8 MG/DL (0.55-1.30) H Estimat Glomerular Filtration Rate mL/min (>60) Glucose Level 242 MG/DL (74-106) H Calcium Level 8.7 MG/DL (8.5-10.1) Phosphorus Level 1.9 MG/DL (2.5-4.9) L Magnesium Level 1.9 MG/DL (1.8-2.4) Total Bilirubin 0.3 MG/DL (0.2-1.0) Aspartate Amino Transf (AST/SGOT) 14 U/L (15-37) L Alanine Aminotransferase (ALT/SGPT) 10 U/L (12-78) L Alkaline Phosphatase 76 U/L (46-116) Total Protein 8.3 G/DL (6.4-8.2) H Albumin 2.3 G/DL (3.4-5.0) L Globulin 6.0 g/dL Albumin/Globulin Ratio 0.4 (1.0-2.7) L Current Medications Medications (Trade) Dose Ordered Sig/Nancy Route PRN Reason Start Time Stop Time Status Last Admin Dose Admin Acetaminophen (Tylenol) 650 mg Q4H PRN GT temp > 100 / mild pain 08/28/17 15:00 09/27/17 14:59 09/07/17 20:53 Amlodipine Besylate (Norvasc) 5 mg Q12HR GT 09/05/17 21:00 10/05/17 20:59 09/08/17 09:35 Chlorhexidine Gluconate (Jossy-Hex 2%) 1 applic DAILY@2000 TOPIC 08/28/17 20:00 09/27/17 19:59 09/07/17 20:51 Clonidine HCl (Catapres Tab) 0.1 mg Q6H PRN GT For High BP 160 syst 08/28/17 15:00 09/27/17 14:59 09/08/17 09:35 Dextrose (Dextrose 50%) 25 ml STAT PRN IV Hypoglycemia 08/28/17 15:00 09/27/17 14:59 Dextrose (Dextrose 50%) 50 ml STAT PRN IV Hypoglycemia 08/28/17 15:00 09/27/17 14:59 Famotidine (Pepcid) 20 mg BID GT 08/28/17 18:00 09/22/17 08:59 09/08/17 18:10 Insulin Aspart (NovoLOG) EVERY 6 HOURS SUBQ 08/28/17 18:00 09/22/17 11:29 09/08/17 18:12 Levetiracetam (Keppra) 750 mg Q12HR GT 09/08/17 21:00 09/28/17 20:59 Metoclopramide HCl (Reglan) 5 mg Q6HR GT 08/28/17 18:00 09/22/17 00:00 09/08/17 06:09 Metoprolol Tartrate (Lopressor) 25 mg Q12HR GT 09/08/17 21:00 10/07/17 20:59 Ondansetron HCl (Zofran) 4 mg Q6H PRN IVP Nausea & Vomiting 08/28/17 15:00 09/21/17 14:59 Phosphorus (Phospha 250 Neutral) 250 mg THREE TIMES A DAY GT 09/08/17 13:00 10/08/17 12:59 09/08/17 18:11 Polyethylene Glycol (Miralax) 17 gm DAILYPRN PRN GT Constipation 08/29/17 15:00 09/28/17 14:59 Ayala Forman M.D. September 08, 2017 18:21
[2017-09-08 20:00] VITALS: BP 157/77
[2017-09-08] MEDS: Dyna-Hex 2% Top Sol 2oz TOPIC SCH (21:47)
[2017-09-08] MEDS: Metoprolol 25mg tab GT SCH (21:49)
[2017-09-09] VITALS (7 sets, daily range): BP systolic 114–164; BP diastolic 64–91
[2017-09-09] MEDS: Metoclopramide 10mg/10ml Liq GT SCH ×4 (00:31→17:37)
[2017-09-09] MEDS: NovoLOG Insulin Flexpen SUBQ SCH ×4 (00:36→17:38)
[2017-09-09 06:33] LABS: BASOPHILS % (AUTO) 0.7 % (0.0-2.0); EOSINOPHILS % (AUTO) 3.1 % (0.0-3.0); HEMATOCRIT 28.1 % (37.0-47.0); HEMOGLOBIN 9.3 G/DL (12.0-16.0); LYMPHOCYTES % (AUTO) 22.6 % (20.0-45.0); MEAN CORPUSCULAR VOLUME 94 FL (80-99); NEUTROPHILS % (AUTO) 66.6 % (45.0-75.0); PLATELET COUNT 201 K/UL (150-450); RED BLOOD COUNT 2.98 M/UL (4.20-5.40); RED CELL DISTRIBUTION WIDTH 15.6 % (11.6-14.8); WHITE BLOOD COUNT 9.3 K/UL (4.8-10.8)
[2017-09-09 07:10] LABS: ALANINE AMINOTRANSFERASE 13 U/L (12-78); ALBUMIN 2.2 G/DL (3.4-5.0); ALBUMIN/GLOBULIN RATIO 0.4 (1.0-2.7); ALKALINE PHOSPHATASE 73 U/L (46-116); ANION GAP 9 mmol/L (5-15); ASPARTATE AMINO TRANSFERASE 16 U/L (15-37); BILIRUBIN,TOTAL 0.3 MG/DL (0.2-1.0); BLOOD UREA NITROGEN 43 mg/dL (7-18); CALCIUM 8.2 MG/DL (8.5-10.1); CARBON DIOXIDE 27 MMOL/L (21-32); CHLORIDE 114 MMOL/L (98-107); CREATININE 1.7 MG/DL (0.55-1.30); PHOSPHORUS 2.3 MG/DL (2.5-4.9); POTASSIUM 3.6 MMOL/L (3.5-5.1); SODIUM 150 MMOL/L (136-145)
[2017-09-09] MEDS: Metoprolol 25mg tab GT SCH ×2 (08:50→20:06)
[2017-09-09] MEDS: levETIRAcetam 500mg/5ml Liquid GT SCH (08:50)
[2017-09-09] MEDS: Phospha 250 Neutral tab GT SCH ×3 (09:05→17:37)
--- NOTE | 2017-09-09 10:14 | General Progress Note ---
Assessment/Plan Problem List: (1) UTI (urinary tract infection) (2) Sepsis ICD Codes: A41.9 - Sepsis, unspecified organism SNOMED: 66162694 (3) DVT (deep vein thrombosis) in ICD Codes: O22.30 - Deep phlebothrombosis in , unspecified trimester; I82.409 - Acute embolism and thrombosis of unspecified deep veins of unspecified lower extremity SNOMED: 29804952 (4) Diabetes ICD Codes: E11.9 - Type 2 diabetes mellitus without complications SNOMED: 33093109 (5) Anemia ICD Codes: D64.9 - Anemia, unspecified SNOMED: 826928628 Qualifiers: (6) Hypernatremia ICD Codes: E87.0 - Hyperosmolality and hypernatremia SNOMED: 51787669 (7) Osteomyelitis of ankle or foot, left, acute ICD Codes: M86.172 - Other acute osteomyelitis, left ankle and foot SNOMED: 338974534 (8) Pneumonia involving left lung ICD Codes: J18.9 - Pneumonia, unspecified organism SNOMED: 972993273 (9) Seizure disorder ICD Codes: G40.909 - Epilepsy, unspecified, not intractable, without status epilepticus SNOMED: 779436005 Status: stable Assessment/Plan Cr improving- transfused will up anti Sz med dosage ( Keppra) Post amputation management 09/04/17 On Tramadol, stop Vanco, Stop Zosyn Fluid challenge, for rising Cr Plan to DC in am off Antibiotics (1) Osteomyelitis of ankle or foot, left, acute Assessment & Plan: on chronic, with worsening osteomyelitis due to poor circulation in the left leg, will continue wide spectrum antibiotics coverage with vancomycin and Zosyn , I had detailed discussion with the conservative palmira salvador regarding the patient condition and the need to consider amputation since she is not responding well to antibiotics alone, and we went over the risk and the benefits of the amputation, and she understood that the patient will have bad outcome if she failes the current regimen of antibiotics she is on , which include septic shock with multiorgan failure and . she will think about it . discussed with other consultants (2) Heel ulcer Assessment & Plan: not improving with worsening osteomyelitis , she will need amputation for source control , will continue wide spectrum antibiotics pending conservative decision regarding amputation DPOA refuses amputation will arrange PICC and DC planning Per ID recs Conservator left messages and so far can not arrange for bioethics BioEth[employer] consult resume Lovenox for DVT Per ID and Surg GT feeding per order transfuse as needed Subjective ROS Limited/Unobtainable: No Constitutional: Reports: malaise, weakness Allergies: Coded Allergies: No Known Allergies (Verified , 01/27/10) Objective Last 24 Hour Vital Signs Date Time Temp Pulse Resp B/P (MAP) Pulse Ox O2 Delivery O2 Flow Rate FiO2 09/09/17 08:50 87 159/91 09/09/17 08:50 87 159/91 09/09/17 08:00 97.7 87 20 159/91 100 97.7 09/09/17 04:00 99.1 84 20 164/67 99 Nasal Cannula 2.0 99.1 09/09/17 00:00 97.1 69 18 141/67 100 Nasal Cannula 2.0 97.1 09/08/17 21:49 84 172/77 09/08/17 21:48 84 172/77 09/08/17 20:00 98.6 88 20 157/77 95 Nasal Cannula 2.0 98.6 09/08/17 16:00 98.2 86 18 169/80 94 Nasal Cannula 2.0 98.2 09/08/17 12:00 98.1 69 18 139/57 92 Nasal Cannula 2.0 98.1 Intake and Output 09/08/17 09/09/17 19:00 07:00 Intake Total 75 ml 555 ml Output Total 1300 ml 750 ml Balance -1225 ml -195 ml Free Water 30 ml 60 ml Tube Feeding 45 ml 495 ml Output Urine Total 1300 ml 750 ml # Bowel Movements 2 4 Current Medications Medications (Trade) Dose Ordered Sig/Nancy Route PRN Reason Start Time Stop Time Status Last Admin Dose Admin Acetaminophen (Tylenol) 650 mg Q4H PRN GT temp > 100 / mild pain 08/28/17 15:00 09/27/17 14:59 09/07/17 20:53 Amlodipine Besylate (Norvasc) 5 mg Q12HR GT 09/05/17 21:00 10/05/17 20:59 09/09/17 08:50 Chlorhexidine Gluconate (Jossy-Hex 2%) 1 applic DAILY@1999 TOPIC 08/28/17 20:00 09/27/17 19:59 09/08/17 21:47 Clonidine HCl (Catapres Tab) 0.1 mg Q6H PRN GT For High BP 160 syst 08/28/17 15:00 09/27/17 14:59 09/08/17 09:35 Dextrose (Dextrose 50%) 25 ml STAT PRN IV Hypoglycemia 08/28/17 15:00 09/27/17 14:59 Dextrose (Dextrose 50%) 50 ml STAT PRN IV Hypoglycemia 08/28/17 15:00 09/27/17 14:59 Famotidine (Pepcid) 20 mg BID GT 08/28/17 18:00 09/22/17 08:59 09/09/17 08:50 Insulin Aspart (NovoLOG) EVERY 6 HOURS SUBQ 08/28/17 18:00 09/22/17 11:29 09/09/17 06:09 Levetiracetam (Keppra) 750 mg Q12HR GT 09/08/17 21:00 09/28/17 20:59 09/09/17 08:50 Metoclopramide HCl (Reglan) 5 mg Q6HR GT 08/28/17 18:00 09/22/17 00:00 09/09/17 05:53 Metoprolol Tartrate (Lopressor) 25 mg Q12HR GT 09/08/17 21:00 10/07/17 20:59 09/09/17 08:50 Ondansetron HCl (Zofran) 4 mg Q6H PRN IVP Nausea & Vomiting 08/28/17 15:00 09/21/17 14:59 Phosphorus (Phospha 250 Neutral) 250 mg THREE TIMES A DAY GT 09/08/17 13:00 10/08/17 12:59 09/09/17 09:05 Polyethylene Glycol (Miralax) 17 gm DAILYPRN PRN GT Constipation 08/29/17 15:00 09/28/17 14:59 Laboratory Tests 09/09/17 05:00: White Blood Count 9.3, Red Blood Count 2.98L, Hemoglobin 9.3L, Hematocrit 28.1L , Mean Corpuscular Volume 94, Mean Corpuscular Hemoglobin 31.3H, Mean Corpuscular Hemoglobin Concent 33.2, Red Cell Distribution Width 15.6H, Platelet Count 201, Mean Platelet Volume 8.6, Neutrophils (%) (Auto) 66.6, Lymphocytes (%) (Auto) 22.6, Monocytes (%) (Auto) 7.0, Eosinophils (%) (Auto) 3.1H, Basophils (%) (Auto) 0.7, Sodium Level 150H, Potassium Level 3.6, Chloride Level 114H, Carbon Dioxide Level 27, Anion Gap 9, Blood Urea Nitrogen 43H, Creatinine 1.7H, Estimat Glomerular Filtration Rate , Glucose Level 239H, Uric Acid 6.4, Calcium Level 8.2L, Phosphorus Level 2.3L, Magnesium Level 1.7L, Total Bilirubin 0.3, Aspartate Amino Transf (AST/SGOT) 16, Alanine Aminotransferase (ALT/SGPT) 13, Alkaline Phosphatase 73, Total Protein 7.9, Albumin 2.2L, Globulin 5.7, Albumin/Globulin Ratio 0.4L Height (Feet): 5 Height (Inches): 4.00 Weight (Pounds): 193 General Appearance: no apparent distress, lethargic Cardiovascular: normal rate Respiratory/Chest: decreased breath sounds Abdomen: soft Objective no change GEORGE MONDRAGON September 09, 2017 10:14
[2017-09-09] MEDS ORDERED: NORVASC5 MG GT (10:25)
[2017-09-09] MEDS ORDERED: METOCLOPRAM5 MG/5 M1 GT (10:25)
[2017-09-09] MEDS ORDERED: MIRALAX17 G2 GT (10:25)
[2017-09-09] MEDS ORDERED: KEPPRA LIQ100 MG/1 M GT (10:25)
[2017-09-09] MEDS ORDERED: ELIQUIS2.5 MG PO (10:25)
[2017-09-09] MEDS ORDERED: LOPRESSOR25 M1 GT (10:25)
[2017-09-09] MEDS ORDERED: FAMOTIDINE20 MG GT (10:25)
--- NOTE | 2017-09-09 10:35 | Diagnostic Imaging Report ---
APPROVED REPORT CPT Code: 33953 Present Symptoms Comments: BILATERAL LEGS PAIN. RT LEG: Venous imaging reveals acute thrombus in the superficial femoral vein. Imaging also reveals patency of the common femoral and popliteal veins. Calf veins not visualized due to open wound. Greater saphenous vein also within normal limits. LEFT LEG: Venous imaging reveals a patent deep venous system. There is no evidence of thrombus within the femoral, popliteal or tibial segments. The greater saphenous vein is also within normal limits. Doppler indicates normal spontaneous flow within these segments.
--- NOTE | 2017-09-09 13:21 | Infectious Diseases Prog Note ---
Assessment/Plan Problems: (1) Osteomyelitis of ankle or foot, left, acute Assessment & Plan: failed antibiotics therapy, with worsening osteomyelitis , S /P AKA , keep off antibiotics since surgical wound looks clean and dry with no sign of infection , continue local wound care as per surgery (2) Sepsis Assessment & Plan: due to the above , resolved, had source control with amputation , monitor off antibiotics (3) Diabetes Assessment & Plan: recommend tight glycemic control to keep blood glucose between 100-140 (4) CKD (chronic kidney disease) Assessment & Plan: monitor creatinine , follow up with nephrology Subjective ROS Limited/Unobtainable: Yes Allergies: Coded Allergies: No Known Allergies (Verified , 01/27/10) Subjective she was quiet and comfortable, lying in bed , L AKA wound looks clean and dry , no bleeding, no drainage , no fever today Objective Vital Signs Last 24 Hour Vital Signs Date Time Temp Pulse Resp B/P (MAP) Pulse Ox O2 Delivery O2 Flow Rate FiO2 09/09/17 12:00 98.1 79 19 154/65 99 98.1 09/09/17 08:50 87 159/91 09/09/17 08:50 87 159/91 09/09/17 08:00 97.7 87 20 159/91 100 97.7 09/09/17 04:00 99.1 84 20 164/67 99 Nasal Cannula 2.0 99.1 09/09/17 00:00 97.1 69 18 141/67 100 Nasal Cannula 2.0 97.1 09/08/17 21:49 84 172/77 09/08/17 21:48 84 172/77 09/08/17 20:00 98.6 88 20 157/77 95 Nasal Cannula 2.0 98.6 09/08/17 16:00 98.2 86 18 169/80 94 Nasal Cannula 2.0 98.2 Height (Feet): 5 Height (Inches): 4.00 Weight (Pounds): 193 General Appearance: WD/WN, no acute distress HEENT: normocephalic, atraumatic, anicteric, mucous membranes moist Respiratory/Chest: chest wall non-tender, lungs clear, normal breath sounds, no respiratory distress, no accessory muscle use Cardiovascular: normal peripheral pulses, normal rate, regular rhythm, no gallop/murmur, no JVD Abdomen: normal bowel sounds, soft, non tender, no organomegaly, non distended , no mass, no scars Extremities: no cyanosis, no clubbing Skin: no rash, no lesions, no ulcers Neurologic/Psychiatric: alert, oriented x 3 Lymphatic: no neck adenopathy, no groin adenopathy Musculoskeletal: normal muscle bulk, no effusion Laboratory Tests Test 09/09/17 05:00 White Blood Count 9.3 K/UL (4.8-10.8) Red Blood Count 2.98 M/UL (4.20-5.40) L Hemoglobin 9.3 G/DL (12.0-16.0) L Hematocrit 28.1 % (37.0-47.0) L Mean Corpuscular Volume 94 FL (80-99) Mean Corpuscular Hemoglobin 31.3 PG (27.0-31.0) H Mean Corpuscular Hemoglobin Concent 33.2 G/DL (32.0-36.0) Red Cell Distribution Width 15.6 % (11.6-14.8) H Platelet Count 201 K/UL (150-450) Mean Platelet Volume 8.6 FL (6.5-10.1) Neutrophils (%) (Auto) 66.6 % (45.0-75.0) Lymphocytes (%) (Auto) 22.6 % (20.0-45.0) Monocytes (%) (Auto) 7.0 % (1.0-10.0) Eosinophils (%) (Auto) 3.1 % (0.0-3.0) H Basophils (%) (Auto) 0.7 % (0.0-2.0) Sodium Level 150 MMOL/L (136-145) H Potassium Level 3.6 MMOL/L (3.5-5.1) Chloride Level 114 MMOL/L (98-107) H Carbon Dioxide Level 27 MMOL/L (21-32) Anion Gap 9 mmol/L (5-15) Blood Urea Nitrogen 43 mg/dL (7-18) H Creatinine 1.7 MG/DL (0.55-1.30) H Estimat Glomerular Filtration Rate mL/min (>60) Glucose Level 239 MG/DL (74-106) H Uric Acid 6.4 MG/DL (2.6-7.2) Calcium Level 8.2 MG/DL (8.5-10.1) L Phosphorus Level 2.3 MG/DL (2.5-4.9) L Magnesium Level 1.7 MG/DL (1.8-2.4) L Total Bilirubin 0.3 MG/DL (0.2-1.0) Aspartate Amino Transf (AST/SGOT) 16 U/L (15-37) Alanine Aminotransferase (ALT/SGPT) 13 U/L (12-78) Alkaline Phosphatase 73 U/L (46-116) Total Protein 7.9 G/DL (6.4-8.2) Albumin 2.2 G/DL (3.4-5.0) L Globulin 5.7 g/dL Albumin/Globulin Ratio 0.4 (1.0-2.7) L Current Medications Medications (Trade) Dose Ordered Sig/Nancy Route PRN Reason Start Time Stop Time Status Last Admin Dose Admin Acetaminophen (Tylenol) 650 mg Q4H PRN GT temp > 100 / mild pain 08/28/17 15:00 09/27/17 14:59 09/07/17 20:53 Amlodipine Besylate (Norvasc) 5 mg Q12HR GT 09/05/17 21:00 10/05/17 20:59 09/09/17 08:50 Chlorhexidine Gluconate (Jossy-Hex 2%) 1 applic DAILY@1999 TOPIC 08/28/17 20:00 09/27/17 19:59 09/08/17 21:47 Clonidine HCl (Catapres Tab) 0.1 mg Q6H PRN GT For High BP 160 syst 08/28/17 15:00 09/27/17 14:59 09/08/17 09:35 Dextrose (Dextrose 50%) 25 ml STAT PRN IV Hypoglycemia 08/28/17 15:00 09/27/17 14:59 Dextrose (Dextrose 50%) 50 ml STAT PRN IV Hypoglycemia 08/28/17 15:00 09/27/17 14:59 Famotidine (Pepcid) 20 mg BID GT 08/28/17 18:00 09/22/17 08:59 09/09/17 08:50 Insulin Aspart (NovoLOG) EVERY 6 HOURS SUBQ 08/28/17 18:00 09/22/17 11:29 09/09/17 12:59 Levetiracetam (Keppra) 750 mg Q12HR GT 09/08/17 21:00 09/28/17 20:59 09/09/17 08:50 Metoclopramide HCl (Reglan) 5 mg Q6HR GT 08/28/17 18:00 09/22/17 00:00 09/09/17 12:36 Metoprolol Tartrate (Lopressor) 25 mg Q12HR GT 09/08/17 21:00 10/07/17 20:59 09/09/17 08:50 Ondansetron HCl (Zofran) 4 mg Q6H PRN IVP Nausea & Vomiting 08/28/17 15:00 09/21/17 14:59 Phosphorus (Phospha 250 Neutral) 250 mg THREE TIMES A DAY GT 09/08/17 13:00 10/08/17 12:59 09/09/17 12:37 Polyethylene Glycol (Miralax) 17 gm DAILYPRN PRN GT Constipation 08/29/17 15:00 09/28/17 14:59 Ayala Forman M.D. September 09, 2017 13:21
--- NOTE | 2017-09-09 20:51 | Pulmonology Progress Note ---
Assessment/Plan Problems: (1) Sepsis (2) Osteomyelitis of ankle or foot, left, acute (3) G tube feedings (4) Functional quadriplegia (5) Right hemiparesis (6) Diabetes Assessment/Plan tolerated surgery looks comfortable labs better check labs tolerating feeding check cultures dvt prophylaxis dc [place] Subjective ROS Limited/Unobtainable: No Constitutional: Reports: no symptoms HEENT: Repors: no symptoms Respiratory: Reports: no symptoms Allergies: Coded Allergies: No Known Allergies (Verified , 01/27/10) Objective Last 24 Hour Vital Signs Date Time Temp Pulse Resp B/P (MAP) Pulse Ox O2 Delivery O2 Flow Rate FiO2 09/09/17 20:06 80 176/82 09/09/17 20:05 80 176/82 09/09/17 17:50 132/75 09/09/17 16:08 162/85 09/09/17 16:00 Nasal Cannula 2.0 09/09/17 15:58 97.9 84 20 162/85 99 97.9 09/09/17 12:00 Nasal Cannula 2.0 09/09/17 12:00 98.1 79 19 154/65 99 98.1 09/09/17 08:50 87 159/91 09/09/17 08:50 87 159/91 09/09/17 08:00 97.7 87 20 159/91 100 97.7 09/09/17 04:00 99.1 84 20 164/67 99 Nasal Cannula 2.0 99.1 09/09/17 00:00 97.1 69 18 141/67 100 Nasal Cannula 2.0 97.1 09/08/17 21:49 84 172/77 09/08/17 21:48 84 172/77 Intake and Output 09/08/17 09/09/17 19:00 07:00 Intake Total 75 ml 630 ml Output Total 1300 ml 750 ml Balance -1225 ml -120 ml Free Water 30 ml 90 ml Tube Feeding 45 ml 540 ml Output Urine Total 1300 ml 750 ml # Bowel Movements 2 4 Objective General Appearance: WD/WN, no acute distress HEENT: atraumatic Respiratory/Chest: normal breath sounds Abdomen: normal bowel sounds, soft, non tender Extremities: no cyanosis, AKA Laboratory Tests 09/09/17 05:00: White Blood Count 9.3, Red Blood Count 2.98L, Hemoglobin 9.3L, Hematocrit 28.1L , Mean Corpuscular Volume 94, Mean Corpuscular Hemoglobin 31.3H, Mean Corpuscular Hemoglobin Concent 33.2, Red Cell Distribution Width 15.6H, Platelet Count 201, Mean Platelet Volume 8.6, Neutrophils (%) (Auto) 66.6, Lymphocytes (%) (Auto) 22.6, Monocytes (%) (Auto) 7.0, Eosinophils (%) (Auto) 3.1H, Basophils (%) (Auto) 0.7, Sodium Level 150H, Potassium Level 3.6, Chloride Level 114H, Carbon Dioxide Level 27, Anion Gap 9, Blood Urea Nitrogen 43H, Creatinine 1.7H, Estimat Glomerular Filtration Rate , Glucose Level 239H, Uric Acid 6.4, Calcium Level 8.2L, Phosphorus Level 2.3L, Magnesium Level 1.7L, Total Bilirubin 0.3, Aspartate Amino Transf (AST/SGOT) 16, Alanine Aminotransferase (ALT/SGPT) 13, Alkaline Phosphatase 73, Total Protein 7.9, Albumin 2.2L, Globulin 5.7, Albumin/Globulin Ratio 0.4L Saira Lazcano MD September 09, 2017 20:51
--- NOTE | 2017-09-11 13:22 | Discharge Summary ---
Discharge Summary Hospital Course Date of Admission Aug 23, 2017 at 06:55 Date of Discharge September 09, 2017 at 20:20 Admitting Diagnosis SEPSIS, URINARY TRACT INFECTION, FEVER HPI Casandra Downing is a 82 year old female who was admitted on Aug 23, 2017 at 06:55 for Sepsis, Urinary Tract Infection, Fever Hospital Course dc summary #[id number] Discharge Medications New Medications: Apixaban (Eliquis) 2.5 Mg Tablet 2.5 MG PO BID for 30 Days, TAB Sxmspbbetbif-Talw-Gwwhiqhc,Iso (Zosyn 3.375 Gm Pre Mix-Bag) 3.375 Gm/50 Ml Froz.piggy 3.375 GM IVPB EVERY 8 HOURS for 30 Days, BAG Amlodipine Besylate (Norvasc) 5 Mg Tablet 5 MG GT Q12HR for 90 Days, TAB Famotidine (Famotidine) 20 Mg Tablet 20 MG GT BID for 90 Days, TAB Levetiracetam (Keppra) 100 Mg/1 Ml Solution 750 MG GT Q12HR for 90 Days, #120 TAB Metoclopramide HCl (Metoclopramide HCl) 10 Mg/10 Ml Solution 5 MG GT Q6HR for 30 Days, #100 TAB Metoprolol Tartrate (Metoprolol Tartrate) 25 Mg Tablet 25 MG GT Q12HR for 90 Days, TAB Polyethylene Glycol 3350* (Miralax*) 17 Gm Powd.pack 17 GM GT DAILYPRN PRN for 90 Days, PACK Continued Medications: Acetaminophen (Tylenol 8 Hour) 650 Mg Tablet.er 650 MG GT Q4HR PRN for Mild Pain/Temp > 100.5 (This prescription has been renewed) Acetaminophen (Acetaminophen) 650 Mg/20.3 Ml Solution 650 MG GT Q4H PRN for 30 Days, #90 TAB Albuterol Sulfate* (Albuterol Sulfate Hhn*) 2.5 Mg/3 Ml Vial.neb 2.5 MG HHN Q4HRT for 14 Days, VIAL Amlodipine Besylate (Norvasc) 5 Mg Tablet 5 MG GT DAILY, TAB (This prescription has been renewed) Apixaban (Eliquis) 2.5 Mg Tablet 5 MG GT BID for 90 Days, TAB Cranberry (Cranberry) 400 Mg Capsule 450 MG GT DAILY, CAP Docusate Sodium (Docusate Sodium) 50 Mg/5 Ml Liquid 100 MG GT TID for 30 Days, ML Famotidine (Famotidine) 20 Mg Tablet 20 MG GT BID for 30 Days, TAB Levetiracetam (Keppra) 500 Mg Tab 500 MG GT DAILY, TAB (This prescription has been renewed) Metoclopramide Hcl* (Metoclopramide Hcl*) 5 Mg Tablet 5 MG GT EVERY 6 HOURS for 30 Days, TAB Na Phos,M-B/Na Phos,Di-Ba* (Fleet Enema*) 133 Ml Enema 133 ML RECTAL DAILY PRN for Constipation, ML 0 Refills (This prescription has been renewed) Polyethylene Glycol 3350* (Miralax*) 17 Gm Powd.pack 17 GM GT DAILY PRN for Constipation, PACKET (This prescription has been renewed) Tramadol Hcl* (Ultram*) 50 Mg Tablet 50 MG GT BID, TAB (This prescription has been renewed) Tramadol Hcl* (Ultram*) 50 Mg Tablet 25 MG GT Q8HR for 30 Days, TAB Discontinued Medications: Clonidine Hcl* (Catapres*) 0.1 Mg Tablet 0.1 MG GT EVERY 6 HOURS PRN for For High Blood Pressure [[facility] pharmacy to dose] () 1 EA MISC 1 EA MISC DAILY PRN for 30 Days Discharge Condition Upon Discharge: stable Discharge Disposition Patient was discharged to SNF/Subacute Facility(03) Discharge Instructions Discharge Instructions Follow up with: follow up with Dr Yung Arias at [facility])Radha NP September 11, 2017 13:22
--- NOTE | 2017-09-12 05:15 | Discharge Summary 2 SIG ---
DATE OF ADMISSION: 08/23/2017 DATE OF DISCHARGE: 09/09/2017 REASON FOR ADMISSION: 82-year-old female with past medical history of diabetes, dementia, G-tube, dysphagia, functional quadriplegia, hypertension, hypercholesterolemia, seizure disorder, aphasia, and left heel osteomyelitis, presented to [facility] from [facility] with fever and sepsis related symptoms. The patient was treated conservatively with antibiotics for left hip osteomyelitis. The patient did not respond to conservative treatment and failed antibiotic therapy in the past.The patient also had deep vein thrombosis that was treated with anticoagulation. On previous admission, family declined amputation and the patient came back with septic symptoms. In the emergency department, the patient was noted to have BUN 70, creatinine 2, sodium 152, glucose 168, hemoglobin 7.8, urinalysis with evidence of pyuria and +2 leukocyte esterase, WBC 10.9, sodium 152, CRP 19.7, troponin negative, fever 103, heart rate 106, and respiratory rate 24. The patient was admitted with sepsis, probable urinary tract infection, osteomyelitis, anemia, dehydration, hypernatremia, renal failure, and dementia. HOSPITAL COURSE: The patient was admitted. The patient was started on the IV fluids. The patient was started on empiric antibiotics. DVT prophylaxis provided. Supplemental oxygen and pulmonary toilet provided as needed. Pain management provided. Venous duplex of bilateral lower extremity revealed acute thrombus in superficial femoral vein of right lower extremity. Infectious Disease specialist , Surgery, Podiatry, and Pulmonology consults were requested. Chest x-ray revealed no focal consolidation. No pleural effusion or pneumothorax. Followup chest x-ray revealed left mid and basilar atelectasis. Infectious Disease doctor closely followed. The patient was on antibiotic for osteomyelitis. The patient failed antibiotic therapy in the past. Physical examination and laboratory showed worsening osteomyelitis. Surgery consult was requested. At that time, family finally agreed to amputation. The patient subsequently undergone on 09/04/2017 left above-knee amputation due to the left lower extremity osteomyelitis with infection and gangrene, refractory to medical therapy. Surgeon closely followed after surgery. The patient is status post antibiotic treatment. Stool for C. difficile was negative. Blood cultures were negative. Left foot wound culture was positive for Proteus and Pseudomonas. Antibiotics stopped after amputation. No leukocytosis. No fever. Stump care provided. Left stump was elevated on two pillows. Pain management was addressed. The patient was on Lovenox prior to surgery for acute DVT and stopped before the surgery. Anticoagulation was resumed postoperatively after clearance with surgeon with [facility]. GI prophylaxis provided. Blood pressure was managed with calcium channel calos. Blood sugar was managed with sliding scale of insulin. Strict aspiration /reflux precautions maintained. The patient was able to tolerate G-tube feeding. G-tube site care provided. Seizure precautions were maintained. No seizure activity while in the hospital. Keppra was continued. Anemia workup was consistent with anemia of chronic disease. The patient undergone transfusion of total of three units of packed red blood cells while in the hospital. Prior to discharge, hemoglobin 9.3 and hematocrit 28.1. Bowel regimen instituted. GI prophylaxis provided. The patient was stable for transfer back to [facility] facility. FINAL DIAGNOSES: 1. Sepsis. 2. 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 3. Status post left above-knee amputation. 4. Functional quadriplegia. 5. Diabetes mellitus. 6. Dysphagia, gastrostomy tube. 7. Anemia of chronic disease. 8. Acute deep venous thrombosis of right lower extremity superficial femoral vein. 9. Hypertension. 10. Seizure disorder. 11. Chronic renal insufficiency. DISCHARGE MEDICATIONS: See medication reconciliation list. DISCHARGE INSTRUCTIONS: The patient was discharged to [facility] facility. FOLLOWUP: Follow up with medical doctor at the facility. Estevan Orozco M.D. I have been assigned to dictate discharge summary on this account and I was not involved in the patient's management. Radha caceressourav NStan DR: HAI JOB#: [id number] CC: NIMCO
== END 2017-09-09 20:20 | DRG 853 ==
LOC: EDBD 17:07 → EMR 18:45 → EDBEDREQ 19:27 → 2E 19:37 → INTOOBSV 19:37 → EDBEDREQ 21:08 → OBSVTOIN 08-23 06:55 → 4W 08-28 14:38
PROC: 30233N1 Transfusion of Nonautologous Red Blood Cells into Peripheral Vein, Percutaneous Approach (ICD-10-PCS; principal; 2017-08-23)
PROC: 02HV33Z Insertion of Infusion Device into Superior Vena Cava, Percutaneous Approach (ICD-10-PCS; 2017-08-29)
PROC: 0Y6D0Z3 Detachment at Left Upper Leg, Low, Open Approach (ICD-10-PCS; 2017-09-04)
DX: A41.9 Sepsis, unspecified organism (principal); J18.9 Pneumonia, unspecified organism; R53.2 Functional quadriplegia; N39.0 Urinary tract infection, site not specified; N17.9 Acute kidney failure, unspecified; M86.172 Other acute osteomyelitis, left ankle and foot; Z43.1 Encounter for attention to gastrostomy; G81.90 Hemiplegia, unspecified affecting unspecified side; I96 Gangrene, not elsewhere classified; E87.0 Hyperosmolality and hypernatremia; I82.411 Acute embolism and thrombosis of right femoral vein; E86.0 Dehydration; D64.9 Anemia, unspecified; E11.9 Type 2 diabetes mellitus without complications; F03.90 Unspecified dementia, unspecified severity, without behavioral disturbance, psychotic disturbance, mood disturbance, and anxiety; Z79.4 Long term (current) use of insulin; J44.9 Chronic obstructive pulmonary disease, unspecified; Z86.73 Personal history of transient ischemic attack (TIA), and cerebral infarction without residual deficits; L89.629 Pressure ulcer of left heel, unspecified stage; M24.562 Contracture, left knee; I10 Essential (primary) hypertension; E78.00 Pure hypercholesterolemia, unspecified; Z86.718 Personal history of other venous thrombosis and embolism; D63.8 Anemia in other chronic diseases classified elsewhere; R13.10 Dysphagia, unspecified
CPT/HCPCS: 36415; 36569; 71045; 76937; 80048; 80053; 80202; 80299; 81003; 82550; 82553; 82607; 82728; 82746; 82962; 82977; 83036; 83540; 83550; 83605; 83735; 83880; 84100; 84484; 84550; 85007; 85025; 85610; 85730; 86140; 86850; 86900; 86901; 86920; 87040; 87070; 87086; 87181; 87205; 87324; 93005; 93970; 94003; 94150; 94640; 94664; 94760; 99285; C9399; J1165; J1815; J2250; J2405; J2765; J8499

== ENCOUNTER 2017-09-20 16:48 | Inpatient (IN) | payer MEDICARE, MEDICAID ==
[~2017-09-20] VITALS: Ht 162.6 cm; Wt 88.6 kg
[~2017-09-20 16:48] MED LIST changes: +ELIQUIS2.5 MG PO; +KEPPRA LIQ100 MG/1 M GT; +LOPRESSOR25 M1 GT; +METOCLOPRAM5 MG/5 M1 GT; +ZOSYN 3.373.375 GM/1 IVPB
[2017-09-20] MEDS ORDERED: KEPPRA500 M4 ORAL (16:56)
[2017-09-20 17:30] LABS: BASOPHILS % (AUTO) 0.6 % (0.0-2.0); EOSINOPHILS % (AUTO) 3.1 % (0.0-3.0); HEMATOCRIT 34.3 % (37.0-47.0); HEMOGLOBIN 10.8 G/DL (12.0-16.0); LYMPHOCYTES % (AUTO) 31.5 % (20.0-45.0); MEAN CORPUSCULAR VOLUME 99 FL (80-99); MONOCYTES % (AUTO) 4.8 % (1.0-10.0); PLATELET COUNT 190 K/UL (150-450); RED BLOOD COUNT 3.47 M/UL (4.20-5.40); RED CELL DISTRIBUTION WIDTH 16.5 % (11.6-14.8); WHITE BLOOD COUNT 10.8 K/UL (4.8-10.8)
[2017-09-20 17:33] VITALS: BP 144/72
[2017-09-20 17:43] LABS: BILIRUBIN, URINE NEGATIVE (NEGATIVE); GLUCOSE, URINE (UA) NEGATIVE (NEGATIVE); KETONES,URINE NEGATIVE (NEGATIVE); LEUKOCYTE ESTERASE ,URINE 3+ (NEGATIVE); NITRITE,URINE NEGATIVE (NEGATIVE); PH,URINE 6 (4.5-8.0); PROTEIN,URINE 4+ (NEGATIVE); UROBILINOGEN,URINE NORMAL MG/DL (0.0-1.0)
[2017-09-20 17:50] LABS: APPEARANCE,URINE CLEAR; COLOR,URINE YELLOW
[2017-09-20 17:53] LABS: ALANINE AMINOTRANSFERASE 16 U/L (12-78); ALBUMIN 2.9 G/DL (3.4-5.0); ALBUMIN/GLOBULIN RATIO 0.4 (1.0-2.7); ALKALINE PHOSPHATASE 121 U/L (46-116); ANION GAP 13 mmol/L (5-15); ASPARTATE AMINO TRANSFERASE 19 U/L (15-37); BILIRUBIN,TOTAL 0.2 MG/DL (0.2-1.0); BLOOD UREA NITROGEN 93 mg/dL (7-18); CALCIUM 9.2 MG/DL (8.5-10.1); CARBON DIOXIDE 25 MMOL/L (21-32); CHLORIDE 128 MMOL/L (98-107); CKMB 0.8 NG/ML (0.0-3.6); CREATINE KINASE 140 U/L (26-308); CREATININE 2.8 MG/DL (0.55-1.30); PHOSPHORUS 4.1 MG/DL (2.5-4.9); POTASSIUM 4.2 MMOL/L (3.5-5.1)
[2017-09-20 17:55] LABS: SODIUM 167 MMOL/L (136-145)
[2017-09-20] MEDS ORDERED: cefTRIAXone 1 GM in NS 55 ML IVPB ONE ×2 (18:00→19:45)
[2017-09-20] MEDS ORDERED: D5 1/2NS 1,000 ML IV SCH (18:00)
[2017-09-20] MEDS ORDERED: Sodium Chloride 500ML 500 ML IV ONE (18:00)
--- NOTE | 2017-09-20 18:19 | Diagnostic Imaging Report ---
EXAM: XR Chest, 1 View CLINICAL HISTORY: SOB TECHNIQUE: Frontal view of the chest. COMPARISON: No relevant prior studies available. FINDINGS: Lungs: Right upper lung opacity could reflect infectious consolidation.. Pleural space: Unremarkable. No pneumothorax. Heart: Unremarkable. No cardiomegaly. Mediastinum: Heavily calcified aorta. Bones/joints: Unremarkable. IMPRESSION: Right upper lung opacity could reflect infectious consolidation
--- NOTE | 2017-09-20 18:29 | Emergency Room Report ---
History of Present Illness General Chief Complaint: Abnormal Labs Source: Patient Present Illness HPI Patient is an 82-year-old female sent in by her nursing facility after abnormal laboratory testing. Patient had increased lethargy. The patient was noted to have elevated sodium as well as BUN/creatinine on laboratory testing. The patient has history of gastrostomy type 2 diabetes seizure disorder chronic kidney disease, DVT. 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 Hx Dementia: Yes Hx Seizures: Yes - Epilepsy Hx Speech Problem: Yes - Non-verbal Hx Dysphasia: Yes - G-tube Review of Systems All Other Systems: limited - by mental status Physical Exam Vital Signs Date Time Temp Pulse Resp B/P (MAP) Pulse Ox O2 Delivery O2 Flow Rate FiO2 09/20/17 16:49 94 20 144/72 99 Room Air 09/20/17 17:33 100.7 100.7 Sp02 EP Interpretation: reviewed, normal General Appearance: alert, lethargic, Chronically Ill Head: atraumatic ENT: uvula midline, dry mucus membranes - dry mucous membranes, other Neck: supple, no bony tend, limited range of motion Respiratory: normal inspection, lungs clear, no respiratory distress, no retraction, no wheezing Cardiovascular #1: regular rate, rhythm, edema Gastrointestinal: normal inspection, normal bowel sounds, non tender, soft, no guarding, no hernia, other - gtube dependent Genitourinary: no CVA tenderness Musculoskeletal: normal inspection, back normal, decreased range of motion, other - amputation Neurologic: motor weakness Psychiatric: mood/affect normal Skin: other - skin decubitus ulcer Medical Decision Making Diagnostic Impression: Primary Impression: OREN (acute kidney injury) Additional Impressions: Dehydration Hypernatremia UTI (urinary tract infection) ER Course Patient presented for generalized weakness. Differential diagnosis included was not limited to anemia, urinary tract infection, electrolyte abnormality, hypothyroidism, myocardial infarction, myasthenia gravis, dehydration, among others. Because of complexity of patient's case laboratory testing and imaging studies were ordered. The laboratory testing was notable for hypernatremia with sodium greater than 160. The patient BUN/creatinine was also noted to be elevated consistent with dehydration. Dr. George Orozco was contacted for inpatient management due to primary care physician Labs Test 09/20/17 17:07 09/20/17 17:20 09/20/17 17:25 White Blood Count 10.8 K/UL (4.8-10.8) Red Blood Count 3.47 M/UL (4.20-5.40) Hemoglobin 10.8 G/DL (12.0-16.0) Hematocrit 34.3 % (37.0-47.0) Mean Corpuscular Volume 99 FL (80-99) Mean Corpuscular Hemoglobin 31.2 PG (27.0-31.0) Mean Corpuscular Hemoglobin Concent 31.5 G/DL (32.0-36.0) Red Cell Distribution Width 16.5 % (11.6-14.8) Platelet Count 190 K/UL (150-450) Mean Platelet Volume 9.5 FL (6.5-10.1) Neutrophils (%) (Auto) 60.0 % (45.0-75.0) Lymphocytes (%) (Auto) 31.5 % (20.0-45.0) Monocytes (%) (Auto) 4.8 % (1.0-10.0) Eosinophils (%) (Auto) 3.1 % (0.0-3.0) Basophils (%) (Auto) 0.6 % (0.0-2.0) Sodium Level 167 MMOL/L (136-145) Potassium Level 4.2 MMOL/L (3.5-5.1) Chloride Level 128 MMOL/L (98-107) Carbon Dioxide Level 25 MMOL/L (21-32) Anion Gap 13 mmol/L (5-15) Blood Urea Nitrogen 93 mg/dL (7-18) Creatinine 2.8 MG/DL (0.55-1.30) Estimat Glomerular Filtration Rate mL/min (>60) Glucose Level 225 MG/DL (74-106) Calcium Level 9.2 MG/DL (8.5-10.1) Phosphorus Level 4.1 MG/DL (2.5-4.9) Magnesium Level 3.0 MG/DL (1.8-2.4) Total Bilirubin 0.2 MG/DL (0.2-1.0) Aspartate Amino Transf (AST/SGOT) 19 U/L (15-37) Alanine Aminotransferase (ALT/SGPT) 16 U/L (12-78) Alkaline Phosphatase 121 U/L (46-116) Total Creatine Kinase 140 U/L (26-308) Creatine Kinase MB 0.8 NG/ML (0.0-3.6) Creatine Kinase MB Relative Index 0.5 Troponin I 0.040 ng/mL (0.000-0.056) Total Protein 9.5 G/DL (6.4-8.2) Albumin 2.9 G/DL (3.4-5.0) Globulin 6.6 g/dL Albumin/Globulin Ratio 0.4 (1.0-2.7) Lactic Acid Level 1.80 mmol/L (0.66-2.22) Urine Color Yellow Urine Appearance Clear Urine pH 6 (4.5-8.0) Urine Specific [place] 1.010 (1.005-1.035) Urine Protein 4+ (NEGATIVE) Urine Glucose (UA) Negative (NEGATIVE) Urine Ketones Negative (NEGATIVE) Urine Occult Blood 4+ (NEGATIVE) Urine Nitrite Negative (NEGATIVE) Urine Bilirubin Negative (NEGATIVE) Urine Urobilinogen Normal MG/DL (0.0-1.0) Urine Leukocyte Esterase 3+ (NEGATIVE) Urine RBC 10-15 /HPF (0 - 2) Urine WBC 5-10 /HPF (0 - 2) Urine Squamous Epithelial Cells Few /LPF (NONE/OCC) Urine Amorphous Sediment Few /LPF (NONE) Urine Bacteria Moderate /HPF (NONE) EKG Diagnostic Results Rate: normal - 92 Rhythm: NSR ST Segments: no acute changes Last Vital Signs Date Time Temp Pulse Resp B/P (MAP) Pulse Ox O2 Delivery O2 Flow Rate FiO2 09/20/17 17:33 100.7 88 20 144/72 99 Room Air 100.7 Status: unchanged Disposition: ADMITTED INPATIENT Referrals: GEORGE OROZCO (PCP) Srini Davis MD September 20, 2017 18:29
[2017-09-20] MEDS ORDERED: ALBUTEROL2.5 MG/3 M INH (18:39)
[2017-09-20] MEDS ORDERED: TRAMADOL HCL50 MG GT (18:46)
[2017-09-20] MEDS ORDERED: MAPAP650 MG/20. GT (18:53)
[2017-09-20 19:00] VITALS: BP 146/53
[2017-09-20] MEDS ORDERED: CRANBERRY450 M5 GT (19:09)
[2017-09-20] MEDS ORDERED: NOVOLOG100 UNIT/3 SUBQ (19:16)
[2017-09-20] MEDS ORDERED: FLEET ENEMA133 ML RECTAL (19:18)
[2017-09-20] MEDS ORDERED: MULTI-DELYN237 ML GT (19:21)
[2017-09-20] MEDS ORDERED: VITAMIN C500 M1 GT (19:21)
[2017-09-20] MEDS ORDERED: ZINC SULFATE220 M1 GT (19:22)
[2017-09-20 19:34] VITALS: BP 146/62
[2017-09-20] MEDS ORDERED: traMADol 50mg tab GT PRN (19:43)
[2017-09-20] MEDS ORDERED: Albuterol ud Inhalation HHN PRN (19:43)
[2017-09-20 20:20] VITALS: BP 141/76
--- NOTE | 2017-09-20 20:27 | Infectious Diseases Prog Note ---
Assessment/Plan Problems: (1) Aspiration pneumonia Assessment & Plan: with RUL infiltrates , will start zosyn empiric coverage and monitor CXR, keep HOB > 30 degree all times with aspiration precaution (2) UTI (urinary tract infection) Assessment & Plan: will start zosyn pending urine culture (3) Sepsis Assessment & Plan: due to the above, continue zosyn pending blood culture (4) Fever Assessment & Plan: due to the above, continue tylenol as needed (5) Dehydration Assessment & Plan: continue IVF , monitor electrolytes , and renal function tests Subjective Allergies: Coded Allergies: No Known Allergies (Verified , 01/27/10) Objective Vital Signs Last 24 Hour Vital Signs Date Time Temp Pulse Resp B/P (MAP) Pulse Ox O2 Delivery O2 Flow Rate FiO2 09/20/17 19:34 98.4 32 32 146/62 100 Room Air 98.4 09/20/17 19:00 87 20 146/53 99 Room Air 09/20/17 17:33 100.7 88 20 144/72 99 Room Air 100.7 09/20/17 16:49 94 20 144/72 99 Room Air Height (Feet): 5 Height (Inches): 4.00 Weight (Pounds): 166 Laboratory Tests Test 09/20/17 17:07 09/20/17 17:20 09/20/17 17:25 White Blood Count 10.8 K/UL (4.8-10.8) Red Blood Count 3.47 M/UL (4.20-5.40) L Hemoglobin 10.8 G/DL (12.0-16.0) L Hematocrit 34.3 % (37.0-47.0) L Mean Corpuscular Volume 99 FL (80-99) Mean Corpuscular Hemoglobin 31.2 PG (27.0-31.0) H Mean Corpuscular Hemoglobin Concent 31.5 G/DL (32.0-36.0) L Red Cell Distribution Width 16.5 % (11.6-14.8) H Platelet Count 190 K/UL (150-450) Mean Platelet Volume 9.5 FL (6.5-10.1) Neutrophils (%) (Auto) 60.0 % (45.0-75.0) Lymphocytes (%) (Auto) 31.5 % (20.0-45.0) Monocytes (%) (Auto) 4.8 % (1.0-10.0) Eosinophils (%) (Auto) 3.1 % (0.0-3.0) H Basophils (%) (Auto) 0.6 % (0.0-2.0) Sodium Level 167 MMOL/L (136-145) *H Potassium Level 4.2 MMOL/L (3.5-5.1) Chloride Level 128 MMOL/L (98-107) H Carbon Dioxide Level 25 MMOL/L (21-32) Anion Gap 13 mmol/L (5-15) Blood Urea Nitrogen 93 mg/dL (7-18) H Creatinine 2.8 MG/DL (0.55-1.30) H Estimat Glomerular Filtration Rate mL/min (>60) Glucose Level 225 MG/DL (74-106) H Calcium Level 9.2 MG/DL (8.5-10.1) Phosphorus Level 4.1 MG/DL (2.5-4.9) Magnesium Level 3.0 MG/DL (1.8-2.4) H Total Bilirubin 0.2 MG/DL (0.2-1.0) Aspartate Amino Transf (AST/SGOT) 19 U/L (15-37) Alanine Aminotransferase (ALT/SGPT) 16 U/L (12-78) Alkaline Phosphatase 121 U/L (46-116) H Total Creatine Kinase 140 U/L (26-308) Creatine Kinase MB 0.8 NG/ML (0.0-3.6) Creatine Kinase MB Relative Index 0.5 Troponin I 0.040 ng/mL (0.000-0.056) Total Protein 9.5 G/DL (6.4-8.2) H Albumin 2.9 G/DL (3.4-5.0) L Globulin 6.6 g/dL Albumin/Globulin Ratio 0.4 (1.0-2.7) L Lactic Acid Level 1.80 mmol/L (0.66-2.22) Urine Color Yellow Urine Appearance Clear Urine pH 6 (4.5-8.0) Urine Specific [place] 1.010 (1.005-1.035) Urine Protein 4+ (NEGATIVE) H Urine Glucose (UA) Negative (NEGATIVE) Urine Ketones Negative (NEGATIVE) Urine Occult Blood 4+ (NEGATIVE) H Urine Nitrite Negative (NEGATIVE) Urine Bilirubin Negative (NEGATIVE) Urine Urobilinogen Normal MG/DL (0.0-1.0) Urine Leukocyte Esterase 3+ (NEGATIVE) H Urine RBC 10-15 /HPF (0 - 2) H Urine WBC 5-10 /HPF (0 - 2) H Urine Squamous Epithelial Cells Few /LPF (NONE/OCC) Urine Amorphous Sediment Few /LPF (NONE) H Urine Bacteria Moderate /HPF (NONE) H Current Medications Medications (Trade) Dose Ordered Sig/Nancy Route PRN Reason Start Time Stop Time Status Last Admin Dose Admin Albuterol Sulfate (Proventil) 2.5 mg Q4H PRN HHN Shortness of Breath 09/20/17 19:43 09/25/17 19:42 Amlodipine Besylate (Norvasc) 5 mg Q12HR GT 09/20/17 21:00 10/20/17 20:59 UNV Apixaban (Eliquis) 2.5 mg BID GT 09/21/17 09:00 10/21/17 08:59 UNV Dextrose 1,000 ml @ 100 mls/hr Q10H IV 09/20/17 19:15 10/20/17 19:14 UNV Famotidine (Pepcid) 20 mg BID GT 09/21/17 09:00 10/21/17 08:59 UNV Levetiracetam (Keppra) 750 mg Q12HR GT 09/20/17 21:00 10/20/17 20:59 UNV Metoclopramide HCl (Reglan) 5 mg Q6HR GT 09/21/17 00:00 10/21/17 00:00 UNV Tramadol HCl (Ultram) 25 mg Q6H PRN GT for pain over 6 09/20/17 19:43 09/27/17 19:42 Ayala Forman M.D. September 20, 2017 20:27
[2017-09-20] MEDS ORDERED: Eliquis 2.5mg tablet GT SCH (22:00)
[2017-09-20] MEDS: levETIRAcetam 500mg/5ml Liquid GT SCH (22:33)
[2017-09-20] MEDS: Piperacillin/Tazobactam 2.25 GM in D5W 110 ML IVPB SCH (22:38)
[2017-09-21] VITALS: BP 119/58
[2017-09-21] MEDS: Metoclopramide 10mg/10ml Liq GT SCH ×5 (00:22→23:52)
[2017-09-21 04:52] VITALS: BP 129/53
[2017-09-21] MEDS: Piperacillin/Tazobactam 2.25 GM in D5W 110 ML IVPB SCH ×3 (05:33→22:10)
[2017-09-21] MEDS: NovoLOG Insulin Flexpen SUBQ SCH ×4 (06:20→23:59)
[2017-09-21 07:08] LABS: BASOPHILS % (AUTO) 0.5 % (0.0-2.0); EOSINOPHILS % (AUTO) 3.6 % (0.0-3.0); HEMATOCRIT 31.2 % (37.0-47.0); HEMOGLOBIN 9.5 G/DL (12.0-16.0); LYMPHOCYTES % (AUTO) 34.7 % (20.0-45.0); MEAN CORPUSCULAR VOLUME 100 FL (80-99); MONOCYTES % (AUTO) 5.4 % (1.0-10.0); NEUTROPHILS % (AUTO) 55.8 % (45.0-75.0); PLATELET COUNT 174 K/UL (150-450); RED BLOOD COUNT 3.12 M/UL (4.20-5.40); RED CELL DISTRIBUTION WIDTH 16.2 % (11.6-14.8); WHITE BLOOD COUNT 8.5 K/UL (4.8-10.8)
[2017-09-21 07:20] LABS: ALANINE AMINOTRANSFERASE 14 U/L (12-78); ALBUMIN 2.8 G/DL (3.4-5.0); ALBUMIN/GLOBULIN RATIO 0.5 (1.0-2.7); ALKALINE PHOSPHATASE 109 U/L (46-116); ANION GAP 14 mmol/L (5-15); ASPARTATE AMINO TRANSFERASE 20 U/L (15-37); BILIRUBIN,TOTAL 0.3 MG/DL (0.2-1.0); BLOOD UREA NITROGEN 84 mg/dL (7-18); CALCIUM 8.9 MG/DL (8.5-10.1); CARBON DIOXIDE 26 MMOL/L (21-32); CHLORIDE 124 MMOL/L (98-107); CREATINE KINASE 155 U/L (26-308); CREATININE 2.8 MG/DL (0.55-1.30); GAMMA GLUTAMYL TRANSPEPTIDASE 122 U/L (5-85); PHOSPHORUS 4.1 MG/DL (2.5-4.9); POTASSIUM 3.8 MMOL/L (3.5-5.1)
[2017-09-21 07:23] LABS: SODIUM 164 MMOL/L (136-145)
[2017-09-21 08:00] VITALS: BP 129/81
[2017-09-21] MEDS: Eliquis 2.5mg tablet GT SCH ×2 (09:14→17:20)
[2017-09-21] MEDS: levETIRAcetam 500mg/5ml Liquid GT SCH ×2 (09:14→21:11)
--- NOTE | 2017-09-21 11:24 | General Progress Note ---
Progress Note Progress Note Surgery: patient well known to me from prior admissions. currently admitted for dehydration. seen and examined at bedside. left AKA stump looks great. healing nicely. no inflammation, no edema, no drainage, healing very well. denver still in place. would not recommend staple removal just yet. probably in 2 weeks or so would be okay. will remove some of denver prior to discharge but not all. okay to leave open to air. keep elevated as possible. thank you for allowing me to participate in Casandra Downing's care. Taco Carter September 21, 2017 11:23
[2017-09-21 12:00] VITALS: BP 145/65
--- NOTE | 2017-09-21 12:25 | History & Physical ---
History and Physical History & Physicial - Aspiration pneumonia zosyn empiric coverage HOB > 30 degree all times with aspiration precaution - UTI (urinary tract infection) zosyn pending urine culture - Dehydration , hypernatremia continue IVF , monitor electrolytes , and renal function tests - DM # [id number] GEORGE MONDRAGON September 21, 2017 12:25
[2017-09-21 16:00] VITALS: BP 146/67
--- NOTE | 2017-09-21 18:05 | Infectious Diseases Prog Note ---
Assessment/Plan Problems: (1) Aspiration pneumonia Assessment & Plan: with RUL infiltrates , suspect aspiration , continue zosyn empiric coverage and monitor CXR, keep HOB > 30 degree all times with aspiration precaution (2) UTI (urinary tract infection) Assessment & Plan: on zosyn pending urine culture (3) Sepsis Assessment & Plan: due to the above, continue zosyn pending blood culture (4) Fever Assessment & Plan: due to the above, continue tylenol as needed (5) Dehydration Assessment & Plan: continue IVF , monitor electrolytes , and renal function tests Subjective ROS Limited/Unobtainable: Yes Allergies: Coded Allergies: No Known Allergies (Verified , 01/27/10) Subjective she was up in bed, unresponsive, dosen't follow commands, afebrile, not in distress Objective Vital Signs Last 24 Hour Vital Signs Date Time Temp Pulse Resp B/P (MAP) Pulse Ox O2 Delivery O2 Flow Rate FiO2 09/21/17 12:00 80 09/21/17 12:00 98.1 96 20 145/65 97 Room Air 98.1 09/21/17 09:14 81 129/81 09/21/17 08:00 82 09/21/17 08:00 97.2 81 20 129/81 96 Room Air 97.2 09/21/17 07:55 84 18 Room Air 09/21/17 04:52 99.5 91 20 129/53 94 Venturi Mask 99.5 09/21/17 04:00 90 09/21/17 00:00 98.6 93 20 119/58 96 Room Air 98.6 09/21/17 00:00 83 09/20/17 23:04 85 18 Room Air 09/20/17 22:33 85 146/62 09/20/17 20:24 98.4 85 32 146/62 100 Room Air 09/20/17 20:20 98.1 89 20 141/76 96 Room Air 98.1 09/20/17 19:34 98.4 32 32 146/62 100 Room Air 98.4 09/20/17 19:00 87 20 146/53 99 Room Air Height (Feet): 5 Height (Inches): 4.00 Weight (Pounds): 166 General Appearance: WD/WN, no acute distress HEENT: normocephalic, atraumatic, anicteric, PERRL, other - dry tounge Respiratory/Chest: chest wall non-tender, lungs clear, normal breath sounds, no respiratory distress, no accessory muscle use Cardiovascular: normal peripheral pulses, normal rate, regular rhythm, no gallop/murmur, no JVD Abdomen: normal bowel sounds, soft, non tender, no organomegaly, non distended , no mass, no scars Extremities: no cyanosis, no clubbing Skin: no rash, no lesions, ulcers Neurologic/Psychiatric: unresponsiveness Lymphatic: no neck adenopathy, no groin adenopathy Microbiology Date/Time Source Procedure Growth Status 09/20/17 17:25 Urine,Clean Catch Urine Culture - Preliminary Resulted Laboratory Tests Test 09/21/17 06:30 White Blood Count 8.5 K/UL (4.8-10.8) Red Blood Count 3.12 M/UL (4.20-5.40) L Hemoglobin 9.5 G/DL (12.0-16.0) L Hematocrit 31.2 % (37.0-47.0) L Mean Corpuscular Volume 100 FL (80-99) H Mean Corpuscular Hemoglobin 30.5 PG (27.0-31.0) Mean Corpuscular Hemoglobin Concent 30.6 G/DL (32.0-36.0) L Red Cell Distribution Width 16.2 % (11.6-14.8) H Platelet Count 174 K/UL (150-450) Mean Platelet Volume 10.8 FL (6.5-10.1) H Neutrophils (%) (Auto) 55.8 % (45.0-75.0) Lymphocytes (%) (Auto) 34.7 % (20.0-45.0) Monocytes (%) (Auto) 5.4 % (1.0-10.0) Eosinophils (%) (Auto) 3.6 % (0.0-3.0) H Basophils (%) (Auto) 0.5 % (0.0-2.0) Sodium Level 164 MMOL/L (136-145) *H Potassium Level 3.8 MMOL/L (3.5-5.1) Chloride Level 124 MMOL/L (98-107) H Carbon Dioxide Level 26 MMOL/L (21-32) Anion Gap 14 mmol/L (5-15) Blood Urea Nitrogen 84 mg/dL (7-18) H Creatinine 2.8 MG/DL (0.55-1.30) H Estimat Glomerular Filtration Rate mL/min (>60) Glucose Level 288 MG/DL (74-106) H Hemoglobin A1c 6.8 % (4.3-6.0) H Uric Acid 8.5 MG/DL (2.6-7.2) H Calcium Level 8.9 MG/DL (8.5-10.1) Phosphorus Level 4.1 MG/DL (2.5-4.9) Magnesium Level 2.7 MG/DL (1.8-2.4) H Total Bilirubin 0.3 MG/DL (0.2-1.0) Gamma Glutamyl Transpeptidase 122 U/L (5-85) H Aspartate Amino Transf (AST/SGOT) 20 U/L (15-37) Alanine Aminotransferase (ALT/SGPT) 14 U/L (12-78) Alkaline Phosphatase 109 U/L (46-116) Total Creatine Kinase 155 U/L (26-308) C-Reactive Protein, Quantitative 5.2 mg/dL (0.00-0.90) H Total Protein 8.8 G/DL (6.4-8.2) H Albumin 2.8 G/DL (3.4-5.0) L Globulin 6.0 g/dL Albumin/Globulin Ratio 0.5 (1.0-2.7) L Current Medications Medications (Trade) Dose Ordered Sig/Nancy Route PRN Reason Start Time Stop Time Status Last Admin Dose Admin Albuterol Sulfate (Proventil) 2.5 mg Q4H PRN HHN Shortness of Breath 09/20/17 19:43 09/25/17 19:42 Amlodipine Besylate (Norvasc) 5 mg Q12HR GT 09/20/17 21:00 10/20/17 20:59 09/21/17 09:14 Apixaban (Eliquis) 2.5 mg BID GT 09/21/17 09:00 10/21/17 08:59 09/21/17 17:20 Dextrose 1,000 ml @ 150 mls/hr Q6H40M IV 09/21/17 10:00 10/21/17 09:59 09/21/17 17:15 Dextrose (Dextrose 50%) 25 ml STAT PRN IV Hypoglycemia 09/20/17 23:30 6/17/18 23:29 Dextrose (Dextrose 50%) 50 ml STAT PRN IV Hypoglycemia 09/20/17 23:30 10/20/17 23:29 Insulin Aspart (NovoLOG) BEFORE MEALS AND HS SUBQ 09/21/17 06:30 10/21/17 06:29 09/21/17 17:19 Lansoprazole (Prevacid) 30 mg Q12HR GT 09/21/17 21:00 10/21/17 20:59 Levetiracetam (Keppra) 750 mg Q12HR GT 09/20/17 21:00 10/20/17 20:59 09/21/17 09:14 Metoclopramide HCl (Reglan) 5 mg Q6HR GT 09/21/17 00:00 10/21/17 00:00 09/21/17 17:20 Piperacillin Sod/ Tazobactam Sod 2.25 gm/Dextrose 110 ml @ 220 mls/hr EVERY 8 HOURS IVPB 09/21/17 14:00 09/25/17 21:59 09/21/17 13:52 Tramadol HCl (Ultram) 25 mg Q6H PRN GT for pain over 6 09/20/17 19:43 09/27/17 19:42 Ayala Forman M.D. September 21, 2017 18:05
[2017-09-21 20:00] VITALS: BP 130/75
--- NOTE | 2017-09-21 21:16 | Consultation ---
DATE OF CONSULTATION: 09/20/2017 INFECTIOUS DISEASE CONSULTATION CONSULTING PHYSICIAN: Ayala Forman M.D. REQUESTING PHYSICIAN: Estevan Orozco M.D. REASON FOR CONSULTATION: Aspiration pneumonia with UTI and sepsis, recommendation for antibiotics treatment. HISTORY OF PRESENT ILLNESS: The patient is an 82-year-old female, well known to me from previous admission, was transferred from [facility] facility to [facility] emergency room for abnormal laboratory tests and increasing lethargy. The patient was found to have elevated sodium with BUN and creatinine concerning for dehydration. The patient also had recent left amyjf-pid-vwsd amputation due to infected foot with gangrene and she was admitted to the hospital for further evaluation and management. Chest x-ray in the emergency room showed right upper lobe consolidation concerning for aspiration pneumonia. So, Infectious Disease consultation was requested for further evaluation and antibiotics treatment. As of note, the patient is nonverbal. Poor historian. Cannot provide any history. History was mainly obtained from the medical record. PAST MEDICAL HISTORY: Significant for cardiac disease, sepsis, DVT, hypertension, COPD, diabetes type 2, dysphagia status post G-tube placement, organic brain syndrome, CVA, dementia, seizure. PAST SURGICAL HISTORY: She had left vmvma-oyx-asdk amputation last month and G-tube placement. MEDICATIONS: She received ceftriaxone in the emergency room. For the rest of her medications, please refer to [facility]. ALLERGIES: She has no known drug allergy. SOCIAL HISTORY: She lives at [facility] facility. No recent drugs, tobacco, or alcohol. PHYSICAL EXAMINATION: VITAL SIGNS: Temperature 100.7 degrees, pulse 88, respirations 20, blood pressure 144/72, pulse oximetry 99% on room air. GENERAL: An elderly female, lying in bed with open mouth and tongue sticking outside with some dryness, nonresponsive, not in acute distress. HEENT: Normocephalic and atraumatic. Open mouth with tongue prolapsing outside with dryness and exudate, unable to assess pupils. The patient does not follow commands. NECK: Supple. No lymphadenopathy. CARDIOVASCULAR: Regular rate and rhythm. No murmur. No gallop. LUNGS: She had crackles on the right side. Diminished breathing sounds. No wheezing. No rhonchi. ABDOMEN: Soft, obese, nontender, and nondistended. Normal bowel sounds. G-tube site looks intact. EXTREMITIES: She had left dpzlh-hng-uktd amputation with surgical wound and clips in place. The right lower extremity with trace edema. No cyanosis or clubbing. SKIN: She had left inner thigh skin wound with granulated base. Sacral old scarred wound. Right heel dry old scarred wound. Right big toe dusky black discoloration on the metatarsal bone. Left hipwt-jpj-janf amputation wound clean, dry with clips in place. LABORATORY AND DIAGNOSTIC DATA: Labs showed white count of 10.8, hemoglobin of 10.8, platelet count of 190. BUN of 84, creatinine of 2.8. Hemoglobin A1c of 6.8. AST of 14, alkaline phosphatase of 109. C-reactive protein of 5.2. Urinalysis showed +3 leukocyte esterase, wbc's 5 to 10, and moderate amount of bacteria. Microbiology, urine culture is pending. Imaging, chest x-ray showed right upper lung opacity, could reflect infectious consolidation. ASSESSMENT AND RECOMMENDATION: 1. Aspiration pneumonia with right upper lobe infiltration. We will start Zosyn empiric coverage. Monitor chest x-ray. Keep head of bed more than 30 degrees all the time with aspiration precaution. We will send sputum culture if she produces any. 2. Urinary tract infection. We will start Zosyn pending urine culture results which was done in the ER. 3. Sepsis due to the above. Continue Zosyn. Pending blood culture. 4. Fever due to the above. Continue Tylenol as needed. 5. Dehydration. Continue IV fluids. Monitor electrolytes and renal function tests. Thank you for the consult. Infectious Disease will continue to follow. Ayala Forman M.D. DR: Soraida JOB#: [id number] CC:
[2017-09-22] VITALS: BP 160/66
[2017-09-22 04:00] VITALS: BP 136/61
[2017-09-22] MEDS: Piperacillin/Tazobactam 2.25 GM in D5W 110 ML IVPB SCH ×3 (05:07→22:20)
[2017-09-22] MEDS: Metoclopramide 10mg/10ml Liq GT SCH ×4 (05:09→23:39)
[2017-09-22] MEDS: NovoLOG Insulin Flexpen SUBQ SCH ×4 (05:11→23:40)
[2017-09-22 08:00] VITALS: BP 159/65
[2017-09-22 08:42] LABS: BASOPHILS % (AUTO) 0.7 % (0.0-2.0); EOSINOPHILS % (AUTO) 3.4 % (0.0-3.0); HEMOGLOBIN 9.3 G/DL (12.0-16.0); LYMPHOCYTES % (AUTO) 28.5 % (20.0-45.0); MEAN CORPUSCULAR VOLUME 97 FL (80-99); MONOCYTES % (AUTO) 6.8 % (1.0-10.0); NEUTROPHILS % (AUTO) 60.6 % (45.0-75.0); PLATELET COUNT 133 K/UL (150-450); RED BLOOD COUNT 2.99 M/UL (4.20-5.40); RED CELL DISTRIBUTION WIDTH 15.5 % (11.6-14.8); WHITE BLOOD COUNT 6.8 K/UL (4.8-10.8)
[2017-09-22] MEDS: Eliquis 2.5mg tablet GT SCH ×2 (08:57→17:29)
[2017-09-22] MEDS: levETIRAcetam 500mg/5ml Liquid GT SCH ×2 (08:57→21:46)
[2017-09-22 09:20] LABS: % IRON SATURATION 33 % (15-50); IRON 60 ug/dL (50-175); TOTAL IRON BINDING CAPACITY 181 ug/dL (250-450)
[2017-09-22 09:42] LABS: ALANINE AMINOTRANSFERASE 8 U/L (12-78); ALBUMIN 2.5 G/DL (3.4-5.0); ALBUMIN/GLOBULIN RATIO 0.4 (1.0-2.7); ALKALINE PHOSPHATASE 100 U/L (46-116); ANION GAP 14 mmol/L (5-15); ASPARTATE AMINO TRANSFERASE 22 U/L (15-37); BILIRUBIN,TOTAL 0.3 MG/DL (0.2-1.0); BLOOD UREA NITROGEN 57 mg/dL (7-18); CALCIUM 8.4 MG/DL (8.5-10.1); CARBON DIOXIDE 22 MMOL/L (21-32); CHLORIDE 113 MMOL/L (98-107); CHOLESTEROL 165 MG/DL (< 200); CREATININE 2.5 MG/DL (0.55-1.30); FERRITIN 1731 NG/ML (8-388); HDL CHOLESTEROL 26 MG/DL (40-60); PHOSPHORUS 4.1 MG/DL (2.5-4.9); POTASSIUM 3.1 MMOL/L (3.5-5.1); SODIUM 149 MMOL/L (136-145); TRIGLYCERIDES 332 MG/DL (30-150)
[2017-09-22] MEDS ORDERED: Sterile Water Irrig 1000ml IRRIG ONE (09:47)
[2017-09-22 12:17] VITALS: BP 123/65
[2017-09-22] MEDS: D5W w/KCl 20mEq 1,000 ML IV SCH (14:26)
--- NOTE | 2017-09-22 14:50 | General Progress Note ---
Assessment/Plan Problem List: (1) Aspiration pneumonia ICD Codes: J69.0 - Pneumonitis due to inhalation of food and vomit SNOMED: 509627718 (2) UTI (urinary tract infection) (3) Dehydration ICD Codes: E86.0 - Dehydration SNOMED: 70951573 (4) Diabetes Assessment & Plan: OOC ICD Codes: E11.9 - Type 2 diabetes mellitus without complications SNOMED: 65460176 (5) Functional quadriplegia ICD Codes: R53.2 - Functional quadriplegia SNOMED: 443758762196880 Status: stable Status Narrative - Aspiration pneumonia - UTI (urinary tract infection) - Dehydration , hypernatremia - DM Assessment/Plan hydrate- start feeding start starlix K supplement antibiotics- pulm toilet Subjective ROS Limited/Unobtainable: No Constitutional: Reports: malaise, weakness Allergies: Coded Allergies: No Known Allergies (Verified , 01/27/10) Objective Last 24 Hour Vital Signs Date Time Temp Pulse Resp B/P (MAP) Pulse Ox O2 Delivery O2 Flow Rate FiO2 09/22/17 12:17 98.0 76 20 123/65 99 Room Air 98.0 09/22/17 12:00 72 09/22/17 08:57 66 159/65 09/22/17 08:00 98.2 66 20 159/65 99 Room Air 98.2 09/22/17 08:00 66 09/22/17 07:31 89 18 Room Air 21 09/22/17 04:00 77 09/22/17 04:00 97.8 78 23 136/61 96 Room Air 97.8 09/22/17 00:00 98.1 81 24 160/66 98 Room Air 98.1 09/22/17 00:00 78 09/21/17 21:11 74 146/67 09/21/17 20:00 72 09/21/17 20:00 97.7 86 23 130/75 96 Room Air 97.7 09/21/17 19:30 86 18 Room Air 21 09/21/17 16:00 74 09/21/17 16:00 98.2 72 20 146/67 95 Room Air 98.2 Intake and Output 09/21/17 09/22/17 19:00 07:00 Intake Total 150 ml 1650 ml Output Total 400 ml 300 ml Balance -250 ml 1350 ml IV Total 150 ml 1650 ml Output Urine Total 400 ml 300 ml # Bowel Movements 2 2 Laboratory Tests 09/22/17 07:55: White Blood Count 6.8, Red Blood Count 2.99L, Hemoglobin 9.3L, Hematocrit 29.0L , Mean Corpuscular Volume 97, Mean Corpuscular Hemoglobin 31.1H, Mean Corpuscular Hemoglobin Concent 32.0, Red Cell Distribution Width 15.5H, Platelet Count 133L, Mean Platelet Volume 10.7H, Neutrophils (%) (Auto) 60.6, Lymphocytes (%) (Auto) 28.5, Monocytes (%) (Auto) 6.8, Eosinophils (%) (Auto) 3.4H, Basophils (%) (Auto) 0.7, Sodium Level 149H, Potassium Level 3.1L, Chloride Level 113H, Carbon Dioxide Level 22, Anion Gap 14, Blood Urea Nitrogen 57H, Creatinine 2.5H, Estimat Glomerular Filtration Rate , Glucose Level 234H, Uric Acid 7.5H, Calcium Level 8.4L, Phosphorus Level 4.1, Magnesium Level 1.9, Iron Level 60, Total Iron Binding Capacity 181L, Percent Iron Saturation 33, Unsaturated Iron Binding 121, Ferritin 1731H, Total Bilirubin 0.3, Aspartate Amino Transf (AST/SGOT) 22, Alanine Aminotransferase (ALT/SGPT) 8L, Alkaline Phosphatase 100, C-Reactive Protein, Quantitative 4.1H, Pro-B-Type Natriuretic Peptide 523H, Total Protein 8.2, Albumin 2.5L, Globulin 5.7, Albumin/Globulin Ratio 0.4L, Triglycerides Level 332H, Cholesterol Level 165, LDL Cholesterol 90 , HDL Cholesterol 26L, Cholesterol/HDL Ratio 6.3H, Vitamin B12 Level 928, Folate 18.3, Thyroid Stimulating Hormone (TSH) 2.653 Height (Feet): 5 Height (Inches): 4.00 Weight (Pounds): 166 General Appearance: no apparent distress, lethargic Cardiovascular: normal rate Respiratory/Chest: decreased breath sounds Abdomen: soft Objective no change GEORGE MONDRAGON September 22, 2017 14:50
[2017-09-22] MEDS: Nateglinide 60mg tab ORAL SCH ×2 (15:51→21:44)
[2017-09-22 16:00] VITALS: BP 125/65
--- NOTE | 2017-09-22 19:15 | History and Physical Report ---
DATE OF ADMISSION: 09/20/2017 HISTORY OF PRESENT ILLNESS: The patient is an 82-year-old and is a resident of [facility]. The patient was transferred to the emergency room with increased lethargy and elevated BUN and creatinine. After initial evaluation in the emergency room, the patient was found to have evidence of UTI, pneumonia, and dehydration. She is being admitted for further management. The patient was last discharged from [facility] on 09/09/2017 after an vkjso-yvz-ecju amputation of the foot, which had osteomyelitis. 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 Her other past history is also significant for dementia, GT tube feeding, and functional quadriplegia. MEDICATIONS: According to the list in the chart. PHYSICAL EXAMINATION: VITAL SIGNS: On the day of admission, the patient was lethargic and had a temperature of 100.7 degrees, pulse 94, respiratory rate 20, and blood pressure 144/72, and nonverbal and lethargic. LUNGS: Decreased breath sounds over the bases. Poor inspiratory effort. HEART: Regular mainly with 94 rate. ABDOMEN: Soft. GT tube in place. EXTREMITIES: Lower extremities, left stump clean, appears to be healing well. LABORATORY RESULTS: The patient had hemoglobin of 10.8 and white blood cells of 10.8. Sodium 167, BUN 93, creatinine 2.8, albumin of 2.9, and urine with 15 rbc's, 10 wbc's, and 4+ protein. IMPRESSION AND PLAN: The patient is admitted with possible aspiration pneumonia since the chest x-ray is abnormal with a right upper lung opacity, evidence of UTI, evidence of acute renal failure, mainly dehydration and also diabetes mellitus. The patient is going to be admitted with IV hydration, antibiotics per ID, pulmonary toilet, monitor chest x-ray, renal parameters, and according to how the patient's condition evolves, we will make the proper changes in our future management. Estevan Orozco M.D. DR: GUILLERMINA JOB#: [id number] CC:
[2017-09-22 20:00] VITALS: BP 141/66
[2017-09-23] VITALS: BP 160/60
[2017-09-23] MEDS: D5W w/KCl 20mEq 1,000 ML IV SCH ×3 (01:25→21:00)
[2017-09-23 04:00] VITALS: BP 160/60
[2017-09-23] MEDS: Nateglinide 60mg tab ORAL SCH ×3 (05:31→21:58)
[2017-09-23] MEDS: Metoclopramide 10mg/10ml Liq GT SCH ×3 (05:31→17:31)
[2017-09-23] MEDS: Piperacillin/Tazobactam 2.25 GM in D5W 110 ML IVPB SCH ×3 (05:31→22:03)
[2017-09-23] MEDS: NovoLOG Insulin Flexpen SUBQ SCH ×3 (05:45→17:29)
[2017-09-23 07:23] LABS: ALANINE AMINOTRANSFERASE 11 U/L (12-78); ALBUMIN 2.6 G/DL (3.4-5.0); ALBUMIN/GLOBULIN RATIO 0.4 (1.0-2.7); ALKALINE PHOSPHATASE 105 U/L (46-116); ANION GAP 16 mmol/L (5-15); ASPARTATE AMINO TRANSFERASE 26 U/L (15-37); BILIRUBIN,TOTAL 0.2 MG/DL (0.2-1.0); BLOOD UREA NITROGEN 44 mg/dL (7-18); CALCIUM 8.3 MG/DL (8.5-10.1); CARBON DIOXIDE 19 MMOL/L (21-32); CHLORIDE 108 MMOL/L (98-107); CREATININE 2.3 MG/DL (0.55-1.30); PHOSPHORUS 4.9 MG/DL (2.5-4.9); POTASSIUM 3.3 MMOL/L (3.5-5.1); SODIUM 142 MMOL/L (136-145)
[2017-09-23 08:00] VITALS: BP 126/68
[2017-09-23 08:20] LABS: BASOPHILS % (AUTO) 0.8 % (0.0-2.0); EOSINOPHILS % (AUTO) 3.8 % (0.0-3.0); HEMOGLOBIN 10.3 G/DL (12.0-16.0); MEAN CORPUSCULAR VOLUME 94 FL (80-99); MONOCYTES % (AUTO) 6.1 % (1.0-10.0); NEUTROPHILS % (AUTO) 46.2 % (45.0-75.0); PLATELET COUNT 181 K/UL (150-450); RED BLOOD COUNT 3.29 M/UL (4.20-5.40); RED CELL DISTRIBUTION WIDTH 15.1 % (11.6-14.8); WHITE BLOOD COUNT 8.1 K/UL (4.8-10.8)
[2017-09-23] MEDS: Eliquis 2.5mg tablet GT SCH ×2 (08:31→17:31)
[2017-09-23] MEDS: levETIRAcetam 500mg/5ml Liquid GT SCH ×2 (08:31→21:57)
[2017-09-23] MEDS: Sodium Citrate 30ml GT SCH ×3 (09:39→17:31)
--- NOTE | 2017-09-23 11:00 | Diagnostic Imaging Report ---
Indication: Cough Comparison: 09/20/2017 A single view chest radiograph was obtained. Findings: There is a questionable mild infiltrate in the right upper lobe. Correlate clinically. Lung volumes remain low. Cardiac size is prominent. Aorta is calcified. IMPRESSION: Questionable right upper lobe infiltrate
--- NOTE | 2017-09-23 11:39 | General Progress Note ---
Assessment/Plan Problem List: (1) Aspiration pneumonia ICD Codes: J69.0 - Pneumonitis due to inhalation of food and vomit SNOMED: 477620919 (2) UTI (urinary tract infection) (3) Dehydration ICD Codes: E86.0 - Dehydration SNOMED: 89784509 (4) Diabetes Assessment & Plan: OOC ICD Codes: E11.9 - Type 2 diabetes mellitus without complications SNOMED: 14310648 (5) Functional quadriplegia ICD Codes: R53.2 - Functional quadriplegia SNOMED: 567692639718991 Status: unchanged Status Narrative renal parameters improved Assessment/Plan hydrate- start feeding start starlix K supplement antibiotics- pulm toilet Subjective ROS Limited/Unobtainable: No Constitutional: Reports: malaise, weakness, other - non verbal Allergies: Coded Allergies: No Known Allergies (Verified , 01/27/10) Objective Last 24 Hour Vital Signs Date Time Temp Pulse Resp B/P (MAP) Pulse Ox O2 Delivery O2 Flow Rate FiO2 09/23/17 08:31 94 126/68 09/23/17 08:00 97.3 94 20 126/68 96 Room Air 97.3 09/23/17 08:00 90 09/23/17 04:00 80 09/23/17 04:00 97.8 78 20 160/60 96 Room Air 97.8 09/23/17 00:00 98.1 84 19 160/60 96 Room Air 98.1 09/23/17 00:00 76 09/22/17 21:44 77 141/66 09/22/17 20:00 77 09/22/17 20:00 97.7 82 20 141/66 99 Room Air 97.7 09/22/17 19:54 75 20 Room Air 21 09/22/17 16:00 97.7 79 20 125/65 99 Room Air 97.7 09/22/17 16:00 75 09/22/17 12:17 98.0 76 20 123/65 99 Room Air 98.0 09/22/17 12:00 72 Intake and Output 09/22/17 09/23/17 19:00 07:00 Intake Total 1480 ml 130 ml Output Total 700 ml 500 ml Balance 780 ml -370 ml Intake Free Water 200 ml IV Total 1260 ml 100 ml Tube Feeding 20 ml 30 ml Output Urine Total 700 ml 500 ml # Bowel Movements 2 1 Laboratory Tests 09/23/17 04:00: Urine Random Sodium 21 09/23/17 06:00: Sodium Level 142, Potassium Level 3.3L, Chloride Level 108H, Carbon Dioxide Level 19L, Anion Gap 16H, Blood Urea Nitrogen 44H, Creatinine 2.3H, Estimat Glomerular Filtration Rate , Glucose Level 153H, Uric Acid 6.7, Calcium Level 8.3L, Phosphorus Level 4.9, Magnesium Level 1.9, Total Bilirubin 0.2, Aspartate Amino Transf (AST/SGOT) 26, Alanine Aminotransferase (ALT/SGPT) 11L, Alkaline Phosphatase 105, Pro-B-Type Natriuretic Peptide 714H, Total Protein 8.7H, Albumin 2.6L, Globulin 6.1, Albumin/Globulin Ratio 0.4L 09/23/17 08:00: White Blood Count 8.1, Red Blood Count 3.29L, Hemoglobin 10.3L, Hematocrit 31.0L , Mean Corpuscular Volume 94, Mean Corpuscular Hemoglobin 31.4H, Mean Corpuscular Hemoglobin Concent 33.3, Red Cell Distribution Width 15.1H, Platelet Count 181, Mean Platelet Volume 10.9H, Neutrophils (%) (Auto) 46.2, Lymphocytes (%) (Auto) 43.0, Monocytes (%) (Auto) 6.1, Eosinophils (%) (Auto) 3.8H, Basophils (%) (Auto) 0.8 Height (Feet): 5 Height (Inches): 4.00 Weight (Pounds): 166 Objective no change GEORGE MONDRAGON September 23, 2017 11:39
[2017-09-23] MEDS ORDERED: traMADol 50mg tab GT SCH (11:45)
[2017-09-23 12:00] VITALS: BP 135/81
--- NOTE | 2017-09-23 12:37 | General Progress Note ---
Progress Note Progress Note Surgery: every other staple removed from left AKA surgical wound. will keep remaining denver in for another 2 weeks. then can d/c them as well. Taco Carter September 23, 2017 12:37
--- NOTE | 2017-09-23 13:57 | Cardiology Report ---
APPROVED REPORT EKG Measurement Heart [id number] Normal sinus rhythm Nonspecific T wave abnormality Prolonged QT Abnormal ECG
[2017-09-23 16:00] VITALS: BP 145/76
--- NOTE | 2017-09-23 16:00 | Infectious Diseases Prog Note ---
Assessment/Plan Problems: (1) Aspiration pneumonia Assessment & Plan: with RUL infiltrates , suspect aspiration , continue zosyn empiric coverage and monitor CXR, keep HOB > 30 degree all times with aspiration precaution, await cultures (2) UTI (urinary tract infection) Assessment & Plan: with gram negative rods , on zosyn pending urine culture (3) Sepsis Assessment & Plan: due to the above, continue zosyn pending blood culture (4) Fever Assessment & Plan: due to the above, continue tylenol as needed (5) Dehydration Assessment & Plan: continue IVF , monitor electrolytes , and renal function tests Subjective ROS Limited/Unobtainable: Yes Allergies: Coded Allergies: No Known Allergies (Verified , 01/27/10) Subjective she was up in bed, unresponsive, dosen't follow commands, afebrile, not in distress Objective Vital Signs Last 24 Hour Vital Signs Date Time Temp Pulse Resp B/P (MAP) Pulse Ox O2 Delivery O2 Flow Rate FiO2 09/23/17 14:33 97.3 09/23/17 12:01 76 20 Room Air 21 09/23/17 12:00 97.3 87 20 135/81 100 Room Air 97.3 09/23/17 11:43 97.3 09/23/17 08:31 94 126/68 09/23/17 08:00 97.3 94 20 126/68 96 Room Air 97.3 09/23/17 08:00 90 09/23/17 04:00 80 09/23/17 04:00 97.8 78 20 160/60 96 Room Air 97.8 09/23/17 00:00 98.1 84 19 160/60 96 Room Air 98.1 09/23/17 00:00 76 09/22/17 21:44 77 141/66 09/22/17 20:00 77 09/22/17 20:00 97.7 82 20 141/66 99 Room Air 97.7 09/22/17 19:54 75 20 Room Air 21 09/22/17 16:00 97.7 79 20 125/65 99 Room Air 97.7 09/22/17 16:00 75 Height (Feet): 5 Height (Inches): 4.00 Weight (Pounds): 166 General Appearance: WD/WN, no acute distress HEENT: normocephalic, atraumatic, mucous membranes moist Respiratory/Chest: chest wall non-tender, no respiratory distress, no accessory muscle use, decreased breath sounds Cardiovascular: normal peripheral pulses, normal rate, regular rhythm, no gallop/murmur, no JVD Abdomen: normal bowel sounds, soft, non tender, no organomegaly, non distended , no mass, no scars Extremities: no cyanosis, no clubbing Skin: no rash, no lesions, ulcers Neurologic/Psychiatric: unresponsiveness Microbiology Date/Time Source Procedure Growth Status 09/20/17 17:40 Blood Blood Culture - Preliminary NO GROWTH AFTER 48 HOURS Resulted 09/20/17 17:30 Blood Blood Culture - Preliminary NO GROWTH AFTER 48 HOURS Resulted 09/20/17 17:20 Nasal Nares MRSA Culture - Final NO METHICILLIN RESISTANT STAPH AUREUS... Complete 09/21/17 02:00 Indwelling Cath Urine Culture - Preliminary NO GROWTH AFTER 24 HOURS Resulted 09/20/17 17:25 Urine,Clean Catch Urine Culture - Preliminary Gram Negative Bacillus 1 Resulted 09/21/17 04:00 Back Gram Stain - Final Resulted 09/21/17 04:00 Back Wound Culture - Preliminary Resulted 09/20/17 17:20 Rectum VRE Culture - Final Enterococcus Faecium - Vre Complete Laboratory Tests Test 09/23/17 04:00 09/23/17 06:00 09/23/17 08:00 Urine Random Sodium 21 mmol/L (20-110) Sodium Level 142 MMOL/L (136-145) Potassium Level 3.3 MMOL/L (3.5-5.1) L Chloride Level 108 MMOL/L (98-107) H Carbon Dioxide Level 19 MMOL/L (21-32) L Anion Gap 16 mmol/L (5-15) H Blood Urea Nitrogen 44 mg/dL (7-18) H Creatinine 2.3 MG/DL (0.55-1.30) H Estimat Glomerular Filtration Rate mL/min (>60) Glucose Level 153 MG/DL (74-106) H Uric Acid 6.7 MG/DL (2.6-7.2) Calcium Level 8.3 MG/DL (8.5-10.1) L Phosphorus Level 4.9 MG/DL (2.5-4.9) Magnesium Level 1.9 MG/DL (1.8-2.4) Total Bilirubin 0.2 MG/DL (0.2-1.0) Aspartate Amino Transf (AST/SGOT) 26 U/L (15-37) Alanine Aminotransferase (ALT/SGPT) 11 U/L (12-78) L Alkaline Phosphatase 105 U/L (46-116) Pro-B-Type Natriuretic Peptide 714 pg/mL (0-125) H Total Protein 8.7 G/DL (6.4-8.2) H Albumin 2.6 G/DL (3.4-5.0) L Globulin 6.1 g/dL Albumin/Globulin Ratio 0.4 (1.0-2.7) L White Blood Count 8.1 K/UL (4.8-10.8) Red Blood Count 3.29 M/UL (4.20-5.40) L Hemoglobin 10.3 G/DL (12.0-16.0) L Hematocrit 31.0 % (37.0-47.0) L Mean Corpuscular Volume 94 FL (80-99) Mean Corpuscular Hemoglobin 31.4 PG (27.0-31.0) H Mean Corpuscular Hemoglobin Concent 33.3 G/DL (32.0-36.0) Red Cell Distribution Width 15.1 % (11.6-14.8) H Platelet Count 181 K/UL (150-450) Mean Platelet Volume 10.9 FL (6.5-10.1) H Neutrophils (%) (Auto) 46.2 % (45.0-75.0) Lymphocytes (%) (Auto) 43.0 % (20.0-45.0) Monocytes (%) (Auto) 6.1 % (1.0-10.0) Eosinophils (%) (Auto) 3.8 % (0.0-3.0) H Basophils (%) (Auto) 0.8 % (0.0-2.0) C-Reactive Protein, Quantitative 6.3 mg/dL (0.00-0.90) H Current Medications Medications (Trade) Dose Ordered Sig/Nancy Route PRN Reason Start Time Stop Time Status Last Admin Dose Admin Albuterol Sulfate (Proventil) 2.5 mg Q4H PRN HHN Shortness of Breath 09/20/17 19:43 09/25/17 19:42 09/23/17 15:41 Amlodipine Besylate (Norvasc) 5 mg Q12HR GT 09/20/17 21:00 10/20/17 20:59 09/23/17 08:31 Apixaban (Eliquis) 2.5 mg BID GT 09/21/17 09:00 10/21/17 08:59 09/23/17 08:31 Dextrose (Dextrose 50%) 25 ml STAT PRN IV Hypoglycemia 09/20/17 23:30 10/20/17 23:29 Dextrose (Dextrose 50%) 50 ml STAT PRN IV Hypoglycemia 09/20/17 23:30 10/20/17 23:29 Dextrose/ Electrolytes 1,000 ml @ 100 mls/hr Q10H IV 09/22/17 15:00 10/22/17 14:59 09/23/17 01:25 Epoetin Wallace (Procrit (for non ESRD use)) 10,000 units SAT- SUBQ 09/23/17 21:00 10/23/17 20:59 Insulin Aspart (NovoLOG) EVERY 6 HOURS SUBQ 09/22/17 00:00 10/21/17 06:29 09/23/17 11:31 Lansoprazole (Prevacid) 30 mg Q12HR GT 09/21/17 21:00 10/21/17 20:59 09/23/17 08:31 Levetiracetam (Keppra) 750 mg Q12HR GT 09/20/17 21:00 10/20/17 20:59 09/23/17 08:31 Metoclopramide HCl (Reglan) 5 mg Q6HR GT 09/21/17 00:00 10/21/17 00:00 09/23/17 11:28 Nateglinide (Starlix) 60 mg Q8HR ORAL 09/22/17 16:00 10/22/17 15:59 09/23/17 14:23 Piperacillin Sod/ Tazobactam Sod 2.25 gm/Dextrose 110 ml @ 220 mls/hr EVERY 8 HOURS IVPB 09/21/17 14:00 09/25/17 21:59 09/23/17 14:24 Sodium Citrate (Bicitra) 30 ml EVERY 6 HOURS GT 09/23/17 09:30 10/23/17 09:29 09/23/17 09:39 Tramadol HCl (Ultram) 25 mg Q6H PRN GT for pain over 6 09/20/17 19:43 09/27/17 19:42 Tramadol HCl (Ultram) 25 mg Q8HR ORAL 09/23/17 22:00 09/30/17 21:59 Ayala Forman M.D. September 23, 2017 16:00
--- NOTE | 2017-09-23 16:03 | Consultation ---
History of Present Illness General Chief Complaint: Abnormal Labs Present Illness Allergies: Coded Allergies: No Known Allergies (Verified , 01/27/10) Medication History Scheduled Amlodipine Besylate (Norvasc), 5 MG GT Q12HR Apixaban (Eliquis), 5 MG GT BID Ascorbic Acid* (Vitamin C*), 500 MG GT DAILY, (Reported) Cranberry Fruit (Cranberry), 450 MG GT DAILY, (Reported) Famotidine (Famotidine), 20 MG GT BID Insulin Aspart* (Novolog*), 0 SUBQ Q6HR, (Reported) Levetiracetam (Keppra), 750 MG GT Q12HR Metoclopramide HCl (Metoclopramide HCl), 5 MG GT Q6HR Multivitamin Liquid* (Multi-Delyn*), 5 ML GT DAILY, (Reported) Tramadol Hcl* (Ultram*), 50 MG GT Q8HR, (Reported) Zinc Sulfate (Zinc Sulfate*), 220 MG GT DAILY, (Reported) Scheduled PRN Acetaminophen (Mapap), 650 MG GT Q4HR PRN for Mild Pain/Temp > 100.5, (Reported) Albuterol Sulfate* (Albuterol Sulfate Hhn*), 3 ML INH Q4H PRN for Shortness of Breath, (Reported) Na Phos,M-B/Na Phos,Di-Ba* (Fleet Enema*), 133 ML RECTAL EVERY OTHER DAY PRN for Constipation, (Reported) Polyethylene Glycol 3350* (Miralax*), 17 GM GT DAILY PRN for Constipation, ( Reported) Discontinued Medications Acetaminophen (Tylenol 8 Hour), 650 MG GT Q4HR PRN for Mild Pain/Temp > 100.5, ( Reported) Discontinued Reason: Prescription changed Albuterol Sulfate* (Albuterol Sulfate Hhn*), 2.5 MG HHN Q4HRT Discontinued Reason: Medication dose changed Amlodipine Besylate (Norvasc), 5 MG GT DAILY, (Reported) Discontinued Reason: Medication dose changed Amlodipine Besylate (Norvasc), 5 MG GT BID Discontinued Reason: Medication dose changed Ampicillin Trihydrate (Ampicillin Trihydrate), 500 MG GT EVERY 6 HOURS Discontinued Reason: Therapy completed Ascorbic Acid* (Vitamin C*), 500 MG GT DAILY, (Reported) Discontinued Reason: Therapy completed Bacitracin (Bacitracin), 1 APPLIC TOPIC BID Discontinued Reason: Therapy completed Carvedilol (Coreg), 6.25 MG GT EVERY 12 HOURS Discontinued Reason: Therapy completed Cefdinir (Cefdinir), 300 MG ORAL Q12HR Discontinued Reason: Therapy completed Cranberry (Cranberry), 450 MG GT DAILY, (Reported) Discontinued Reason: Therapy completed Diphenhydramine Hcl* (Benadryl*), 25 MG GT Q6H PRN for Itching, (Reported) Discontinued Reason: Therapy completed Docusate Sodium (Docusate Sodium), 100 MG GT TID Discontinued Reason: Therapy completed Docusate Sodium* (Docusate Sodium*), 100 MG GT TWICE A DAY, (Reported) Discontinued Reason: Therapy completed Doxycycline Hyclate (Doxycycline Hyclate), 100 MG GT EVERY 12 HOURS Discontinued Reason: Medication dose changed Enoxaparin* (Lovenox*), 80 MG SUBQ QPM Discontinued Reason: Therapy completed Heparin Sodium,Porcine/Pf (Heparin Sod 1,000 Unit/Ml Vial), 5,000 UNITS SUBQ BID , (Reported) Discontinued Reason: Therapy completed Insulin Aspart (Novolog Flexpen), 0 UNITS SUBQ BEFORE MEALS AND HS Discontinued Reason: Medication dose changed Levetiracetam (Keppra), 500 MG GT DAILY, (Reported) Discontinued Reason: Medication dose changed Levetiracetam (Levetiracetam), 500 MG GT BID Discontinued Reason: Medication dose changed Levetiracetam (Keppra), 100 MG ORAL BID, (Reported) Discontinued Reason: Medication dose changed Magnesium Hydroxide (Milk of Magnesia), 30 ML GT DAILY PRN for Constipation, ( Reported) Discontinued Reason: Therapy completed Metoprolol Tartrate (Metoprolol Tartrate), 25 MG GT Q12HR Discontinued Reason: Therapy completed Multivitamin (Daily Vitamin), 1 TAB GT DAILY, (Reported) Discontinued Reason: Therapy completed Multivitamin With Minerals (Multivitamins With Minerals*), 1 TAB GT DAILY, ( Reported) Discontinued Reason: Therapy completed Na Phos,M-B/Na Phos,Di-Ba* (Fleet Enema*), 133 ML RECTAL DAILY PRN for Constipation, (Reported) Discontinued Reason: Medication dose changed Nitroglycerin (Nitroglycerin), 0.4 MG SL EVERY 5 MIN PRN for CHEST PAIN, ( Reported) Discontinued Reason: Therapy completed Omeprazole (Omeprazole), 20 MG GT DAILY, (Reported) Discontinued Reason: Therapy completed Ondansetron (Zofran), 4 MG ORAL Q6H PRN for Nausea & Vomiting Discontinued Reason: Therapy completed Ondansetron* (Zofran*), 4 MG ORAL Q6H PRN for Nausea & Vomiting, (Reported) Discontinued Reason: Therapy completed Phenytoin (Phenytoin*), 100 MG GT BID Discontinued Reason: Therapy completed Xkpietxiagre-Mudz-Uxhcmjod,Iso (Zosyn 3.375 Gm Pre Mix-Bag), 3.375 GM IVPB EVERY 8 HOURS Discontinued Reason: Therapy completed Potassium Chloride (Potassium Chloride), 20 MEQ ORAL DAILY Discontinued Reason: Therapy completed Ranitidine Hcl* (Zantac*), 150 MG GT DAILY, (Reported) Discontinued Reason: Therapy completed Simvastatin (Zocor), 40 MG GT BEDTIME, (Reported) Discontinued Reason: Therapy completed Tramadol Hcl* (Ultram*), 50 MG GT BID, (Reported) Discontinued Reason: Medication dose changed Tramadol Hcl* (Ultram*), 25 MG GT Q8HR Discontinued Reason: Medication dose changed Warfarin Sod* (Coumadin*), 2.5 MG ORAL COUMADIN Discontinued Reason: Therapy completed Zinc Sulfate (Zinc Sulfate*), 220 MG GT DAILY, (Reported) Discontinued Reason: Therapy completed [regular insulin], (Reported) Discontinued Reason: Therapy completed Patient History Healthcare decision maker GEORGE CRAVEN Resuscitation status Full Code Advanced Directive on File Yes Physical Exam Last 24 Hour Vital Signs Date Time Temp Pulse Resp B/P (MAP) Pulse Ox O2 Delivery O2 Flow Rate FiO2 09/23/17 14:33 97.3 09/23/17 12:01 76 20 Room Air 21 09/23/17 12:00 97.3 87 20 135/81 100 Room Air 97.3 09/23/17 11:43 97.3 09/23/17 08:31 94 126/68 09/23/17 08:00 97.3 94 20 126/68 96 Room Air 97.3 09/23/17 08:00 90 09/23/17 04:00 80 09/23/17 04:00 97.8 78 20 160/60 96 Room Air 97.8 09/23/17 00:00 98.1 84 19 160/60 96 Room Air 98.1 09/23/17 00:00 76 09/22/17 21:44 77 141/66 09/22/17 20:00 77 09/22/17 20:00 97.7 82 20 141/66 99 Room Air 97.7 09/22/17 19:54 75 20 Room Air 21 Intake and Output 09/22/17 09/23/17 19:00 07:00 Intake Total 1480 ml 130 ml Output Total 700 ml 500 ml Balance 780 ml -370 ml Intake Free Water 200 ml IV Total 1260 ml 100 ml Tube Feeding 20 ml 30 ml Output Urine Total 700 ml 500 ml # Bowel Movements 2 1 Laboratory Tests Test 09/23/17 04:00 09/23/17 06:00 09/23/17 08:00 Urine Random Sodium 21 mmol/L (20-110) Sodium Level 142 MMOL/L (136-145) Potassium Level 3.3 MMOL/L (3.5-5.1) L Chloride Level 108 MMOL/L (98-107) H Carbon Dioxide Level 19 MMOL/L (21-32) L Anion Gap 16 mmol/L (5-15) H Blood Urea Nitrogen 44 mg/dL (7-18) H Creatinine 2.3 MG/DL (0.55-1.30) H Estimat Glomerular Filtration Rate mL/min (>60) Glucose Level 153 MG/DL (74-106) H Uric Acid 6.7 MG/DL (2.6-7.2) Calcium Level 8.3 MG/DL (8.5-10.1) L Phosphorus Level 4.9 MG/DL (2.5-4.9) Magnesium Level 1.9 MG/DL (1.8-2.4) Total Bilirubin 0.2 MG/DL (0.2-1.0) Aspartate Amino Transf (AST/SGOT) 26 U/L (15-37) Alanine Aminotransferase (ALT/SGPT) 11 U/L (12-78) L Alkaline Phosphatase 105 U/L (46-116) Pro-B-Type Natriuretic Peptide 714 pg/mL (0-125) H Total Protein 8.7 G/DL (6.4-8.2) H Albumin 2.6 G/DL (3.4-5.0) L Globulin 6.1 g/dL Albumin/Globulin Ratio 0.4 (1.0-2.7) L White Blood Count 8.1 K/UL (4.8-10.8) Red Blood Count 3.29 M/UL (4.20-5.40) L Hemoglobin 10.3 G/DL (12.0-16.0) L Hematocrit 31.0 % (37.0-47.0) L Mean Corpuscular Volume 94 FL (80-99) Mean Corpuscular Hemoglobin 31.4 PG (27.0-31.0) H Mean Corpuscular Hemoglobin Concent 33.3 G/DL (32.0-36.0) Red Cell Distribution Width 15.1 % (11.6-14.8) H Platelet Count 181 K/UL (150-450) Mean Platelet Volume 10.9 FL (6.5-10.1) H Neutrophils (%) (Auto) 46.2 % (45.0-75.0) Lymphocytes (%) (Auto) 43.0 % (20.0-45.0) Monocytes (%) (Auto) 6.1 % (1.0-10.0) Eosinophils (%) (Auto) 3.8 % (0.0-3.0) H Basophils (%) (Auto) 0.8 % (0.0-2.0) C-Reactive Protein, Quantitative 6.3 mg/dL (0.00-0.90) H Height (Feet): 5 Height (Inches): 4.00 Weight (Pounds): 166 Medications Current Medications Medications (Trade) Dose Ordered Sig/Nancy Route PRN Reason Start Time Stop Time Status Last Admin Dose Admin Albuterol Sulfate (Proventil) 2.5 mg Q4H PRN HHN Shortness of Breath 09/20/17 19:43 09/25/17 19:42 09/23/17 15:41 Amlodipine Besylate (Norvasc) 5 mg Q12HR GT 09/20/17 21:00 10/20/17 20:59 09/23/17 08:31 Apixaban (Eliquis) 2.5 mg BID GT 09/21/17 09:00 10/21/17 08:59 09/23/17 08:31 Dextrose (Dextrose 50%) 25 ml STAT PRN IV Hypoglycemia 09/20/17 23:30 10/20/17 23:29 Dextrose (Dextrose 50%) 50 ml STAT PRN IV Hypoglycemia 09/20/17 23:30 10/20/17 23:29 Dextrose/ Electrolytes 1,000 ml @ 100 mls/hr Q10H IV 09/22/17 15:00 10/22/17 14:59 09/23/17 01:25 Epoetin Wallace (Procrit (for non ESRD use)) 10,000 units SAT-SAT-SAT SUBQ 09/23/17 21:00 10/23/17 20:59 Insulin Aspart (NovoLOG) EVERY 6 HOURS SUBQ 09/22/17 00:00 10/21/17 06:29 09/23/17 11:31 Lansoprazole (Prevacid) 30 mg Q12HR GT 09/21/17 21:00 10/21/17 20:59 09/23/17 08:31 Levetiracetam (Keppra) 750 mg Q12HR GT 09/20/17 21:00 10/20/17 20:59 09/23/17 08:31 Metoclopramide HCl (Reglan) 5 mg Q6HR GT 09/21/17 00:00 10/21/17 00:00 09/23/17 11:28 Nateglinide (Starlix) 60 mg Q8HR ORAL 09/22/17 16:00 10/22/17 15:59 09/23/17 14:23 Piperacillin Sod/ Tazobactam Sod 2.25 gm/Dextrose 110 ml @ 220 mls/hr EVERY 8 HOURS IVPB 09/21/17 14:00 09/25/17 21:59 09/23/17 14:24 Sodium Citrate (Bicitra) 30 ml EVERY 6 HOURS GT 09/23/17 09:30 10/23/17 09:29 09/23/17 09:39 Tramadol HCl (Ultram) 25 mg Q6H PRN GT for pain over 6 09/20/17 19:43 09/27/17 19:42 Tramadol HCl (Ultram) 25 mg Q8HR ORAL 09/23/17 22:00 09/30/17 21:59 Saira Lazcano MD September 23, 2017 16:03
[2017-09-23 20:00] VITALS: BP 147/113
[2017-09-23] MEDS ORDERED: Epogen (for non ESRD use) SUBQ SCH (21:00)
[2017-09-23] MEDS: traMADol 50mg tab ORAL SCH (21:57)
[2017-09-24] VITALS: BP 116/72
[2017-09-24] MEDS: Metoclopramide 10mg/10ml Liq GT SCH ×4 (00:17→17:54)
[2017-09-24] MEDS: Sodium Citrate 30ml GT SCH ×3 (00:17→12:44)
[2017-09-24] MEDS: NovoLOG Insulin Flexpen SUBQ SCH ×4 (00:17→17:55)
[2017-09-24 04:00] VITALS: BP 105/53
[2017-09-24] MEDS: Piperacillin/Tazobactam 2.25 GM in D5W 110 ML IVPB SCH ×3 (05:40→22:05)
[2017-09-24] MEDS: D5W w/KCl 20mEq 1,000 ML IV SCH (05:41)
[2017-09-24] MEDS: Nateglinide 60mg tab ORAL SCH ×2 (05:41→14:11)
[2017-09-24] MEDS: traMADol 50mg tab ORAL SCH ×3 (05:43→22:00)
[2017-09-24 06:25] LABS: BASOPHILS % (AUTO) 0.6 % (0.0-2.0); HEMATOCRIT 27.2 % (37.0-47.0); HEMOGLOBIN 9.2 G/DL (12.0-16.0); LYMPHOCYTES % (AUTO) 37.8 % (20.0-45.0); MEAN CORPUSCULAR VOLUME 94 FL (80-99); MONOCYTES % (AUTO) 8.3 % (1.0-10.0); NEUTROPHILS % (AUTO) 50.3 % (45.0-75.0); PLATELET COUNT 148 K/UL (150-450); RED BLOOD COUNT 2.91 M/UL (4.20-5.40); RED CELL DISTRIBUTION WIDTH 15.3 % (11.6-14.8)
[2017-09-24 06:56] LABS: ALANINE AMINOTRANSFERASE 22 U/L (12-78); ALBUMIN 2.7 G/DL (3.4-5.0); ALBUMIN/GLOBULIN RATIO 0.5 (1.0-2.7); ALKALINE PHOSPHATASE 103 U/L (46-116); ANION GAP 14 mmol/L (5-15); ASPARTATE AMINO TRANSFERASE 27 U/L (15-37); BILIRUBIN,TOTAL 0.2 MG/DL (0.2-1.0); BLOOD UREA NITROGEN 36 mg/dL (7-18); CALCIUM 8.3 MG/DL (8.5-10.1); CARBON DIOXIDE 22 MMOL/L (21-32); CHLORIDE 107 MMOL/L (98-107); CREATININE 2.3 MG/DL (0.55-1.30); PHOSPHORUS 4.3 MG/DL (2.5-4.9); POTASSIUM 4.1 MMOL/L (3.5-5.1); SODIUM 143 MMOL/L (136-145)
[2017-09-24 08:00] VITALS: BP 123/55
[2017-09-24] MEDS: levETIRAcetam 500mg/5ml Liquid GT SCH ×2 (09:26→22:06)
[2017-09-24] MEDS: Eliquis 2.5mg tablet GT SCH ×2 (09:27→17:54)
[2017-09-24 12:00] VITALS: BP 133/77
--- NOTE | 2017-09-24 12:33 | Pulmonology Progress Note ---
Assessment/Plan Problems: (1) Aspiration pneumonia (2) Diabetes (3) CKD (chronic kidney disease) (4) Dementia (5) Functional quadriplegia Assessment/Plan respiratory treatment iv abx check cultures respiratory treatment check electrolytes dvt prophylaxis symptomatic treatment pt has multiple admissions, with end stage dementia, vegetative state with multiple medical problems, bed bound, incontinent, aphasic. Pt qualifies and benefits from hospice care. Subjective ROS Limited/Unobtainable: No Constitutional: Reports: no symptoms HEENT: Repors: no symptoms Respiratory: Reports: no symptoms Allergies: Coded Allergies: No Known Allergies (Verified , 01/27/10) Objective Last 24 Hour Vital Signs Date Time Temp Pulse Resp B/P (MAP) Pulse Ox O2 Delivery O2 Flow Rate FiO2 09/24/17 09:26 93 123/55 09/24/17 08:00 96.3 93 20 123/55 92 Room Air 96.3 09/24/17 07:53 86 09/24/17 07:32 92 22 Room Air 21 09/24/17 05:43 97.7 09/24/17 04:00 97.7 95 25 105/53 93 Room Air 97.7 09/24/17 04:00 86 09/24/17 00:00 97.0 101 24 116/72 90 Room Air 97.0 09/24/17 00:00 85 09/23/17 22:01 91 147/113 09/23/17 20:00 98.0 91 20 147/113 100 Room Air 98.0 09/23/17 20:00 88 09/23/17 18:35 85 20 Room Air 21 09/23/17 16:00 97.3 80 20 145/76 99 Room Air 97.3 09/23/17 16:00 97 09/23/17 14:33 97.3 Intake and Output 09/23/17 09/24/17 19:00 07:00 Intake Total 1510 ml 810 ml Output Total 1000 ml Balance 1510 ml -190 ml Intake Free Water 200 ml 260 ml IV Total 1110 ml 220 ml Tube Feeding 200 ml 330 ml Output Urine Total 1000 ml # Bowel Movements 3 1 General Appearance: WD/WN HEENT: normocephalic, atraumatic Respiratory/Chest: chest wall non-tender, lungs clear Breasts: no masses Cardiovascular: normal peripheral pulses, normal rate, regular rhythm Abdomen: normal bowel sounds, soft, non tender Genitourinary: normal external genitalia Extremities: no cyanosis, no clubbing Skin: no rash 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 II-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 grossly normal Laboratory Tests 09/24/17 04:50: White Blood Count 7.0, Red Blood Count 2.91L, Hemoglobin 9.2L, Hematocrit 27.2L , Mean Corpuscular Volume 94, Mean Corpuscular Hemoglobin 31.6H, Mean Corpuscular Hemoglobin Concent 33.7, Red Cell Distribution Width 15.3H, Platelet Count 148L, Mean Platelet Volume 11.3H, Neutrophils (%) (Auto) 50.3, Lymphocytes (%) (Auto) 37.8, Monocytes (%) (Auto) 8.3, Eosinophils (%) (Auto) 3.0, Basophils (%) (Auto) 0.6, Sodium Level 143, Potassium Level 4.1, Chloride Level 107, Carbon Dioxide Level 22, Anion Gap 14, Blood Urea Nitrogen 36H, Creatinine 2.3H, Estimat Glomerular Filtration Rate , Glucose Level 157H, Calcium Level 8.3L, Phosphorus Level 4.3, Magnesium Level 2.1, Total Bilirubin 0.2, Aspartate Amino Transf (AST/SGOT) 27, Alanine Aminotransferase (ALT/SGPT) 22, Alkaline Phosphatase 103, Pro-B-Type Natriuretic Peptide 875H, Total Protein 8.6H, Albumin 2.7L, Globulin 5.9, Albumin/Globulin Ratio 0.5L Current Medications Medications (Trade) Dose Ordered Sig/Nancy Route PRN Reason Start Time Stop Time Status Last Admin Dose Admin Albuterol Sulfate (Proventil) 2.5 mg Q4H PRN HHN Shortness of Breath 09/20/17 19:43 09/25/17 19:42 09/23/17 15:41 Amlodipine Besylate (Norvasc) 5 mg Q12HR GT 09/20/17 21:00 10/20/17 20:59 09/24/17 09:26 Apixaban (Eliquis) 2.5 mg BID GT 09/21/17 09:00 10/21/17 08:59 09/24/17 09:27 Dextrose (Dextrose 50%) 25 ml STAT PRN IV Hypoglycemia 09/20/17 23:30 10/20/17 23:29 Dextrose (Dextrose 50%) 50 ml STAT PRN IV Hypoglycemia 09/20/17 23:30 10/20/17 23:29 Dextrose/ Electrolytes 1,000 ml @ 100 mls/hr Q10H IV 09/22/17 15:00 10/22/17 14:59 09/24/17 05:41 Epoetin Wallace (Procrit (for non ESRD use)) 10,000 units SAT-SAT-SAT SUBQ 09/23/17 21:00 10/23/17 20:59 09/23/17 22:02 Insulin Aspart (NovoLOG) EVERY 6 HOURS SUBQ 09/22/17 00:00 10/21/17 06:29 09/24/17 05:55 Lansoprazole (Prevacid) 30 mg Q12HR GT 09/21/17 21:00 10/21/17 20:59 09/24/17 09:26 Levetiracetam (Keppra) 750 mg Q12HR GT 09/20/17 21:00 10/20/17 20:59 09/24/17 09:26 Metoclopramide HCl (Reglan) 5 mg Q6HR GT 09/21/17 00:00 10/21/17 00:00 09/24/17 05:43 Nateglinide (Starlix) 60 mg Q8HR ORAL 09/22/17 16:00 10/22/17 15:59 09/24/17 05:41 Piperacillin Sod/ Tazobactam Sod 2.25 gm/Dextrose 110 ml @ 220 mls/hr EVERY 8 HOURS IVPB 09/21/17 14:00 09/29/17 23:00 09/24/17 05:40 Sodium Citrate (Bicitra) 30 ml EVERY 6 HOURS GT 09/23/17 09:30 10/23/17 09:29 09/24/17 05:39 Tramadol HCl (Ultram) 25 mg Q6H PRN GT for pain over 6 09/20/17 19:43 09/27/17 19:42 Tramadol HCl (Ultram) 25 mg Q8HR ORAL 09/23/17 22:00 09/30/17 21:59 09/24/17 05:43 Saira Lazcano MD September 24, 2017 12:33
--- NOTE | 2017-09-24 13:05 | Infectious Diseases Prog Note ---
Assessment/Plan Problems: (1) Aspiration pneumonia Assessment & Plan: suspect aspiration , continue zosyn empiric coverage and monitor CXR, keep HOB > 30 degree all times with aspiration precaution, await cultures (2) UTI (urinary tract infection) Assessment & Plan: with MDR proteus mirabilis , on zosyn pending further sensitivity results (3) Sepsis Assessment & Plan: due to the above, continue zosyn pending blood culture (4) Fever Assessment & Plan: due to the above, continue tylenol as needed (5) Dehydration Assessment & Plan: continue IVF , monitor electrolytes , and renal function tests Subjective ROS Limited/Unobtainable: Yes Allergies: Coded Allergies: No Known Allergies (Verified , 01/27/10) Subjective she was up in bed, unresponsive, dosen't follow commands, afebrile, not in distress. comfortable Objective Vital Signs Last 24 Hour Vital Signs Date Time Temp Pulse Resp B/P (MAP) Pulse Ox O2 Delivery O2 Flow Rate FiO2 09/24/17 12:00 96.8 91 20 133/77 96 Room Air 96.8 09/24/17 09:26 93 123/55 09/24/17 08:00 96.3 93 20 123/55 92 Room Air 96.3 09/24/17 07:53 86 09/24/17 07:32 92 22 Room Air 21 09/24/17 05:43 97.7 09/24/17 04:00 97.7 95 25 105/53 93 Room Air 97.7 09/24/17 04:00 86 09/24/17 00:00 97.0 101 24 116/72 90 Room Air 97.0 09/24/17 00:00 85 09/23/17 22:01 91 147/113 09/23/17 20:00 98.0 91 20 147/113 100 Room Air 98.0 09/23/17 20:00 88 09/23/17 18:35 85 20 Room Air 21 09/23/17 16:00 97.3 80 20 145/76 99 Room Air 97.3 09/23/17 16:00 97 09/23/17 14:33 97.3 Height (Feet): 5 Height (Inches): 4.00 Weight (Pounds): 166 General Appearance: WD/WN, no acute distress HEENT: normocephalic, atraumatic, anicteric, mucous membranes moist Respiratory/Chest: chest wall non-tender, lungs clear, normal breath sounds, no respiratory distress, no accessory muscle use Cardiovascular: normal peripheral pulses, normal rate, regular rhythm, no gallop/murmur, no JVD Abdomen: normal bowel sounds, soft, non tender, no organomegaly, non distended , no mass, no scars Extremities: no cyanosis, no clubbing, other - left AKA SURGICAL WOUND CLEAN WITH CLIPS Skin: no rash, no lesions, ulcers Neurologic/Psychiatric: unresponsiveness Laboratory Tests Test 09/24/17 04:50 White Blood Count 7.0 K/UL (4.8-10.8) Red Blood Count 2.91 M/UL (4.20-5.40) L Hemoglobin 9.2 G/DL (12.0-16.0) L Hematocrit 27.2 % (37.0-47.0) L Mean Corpuscular Volume 94 FL (80-99) Mean Corpuscular Hemoglobin 31.6 PG (27.0-31.0) H Mean Corpuscular Hemoglobin Concent 33.7 G/DL (32.0-36.0) Red Cell Distribution Width 15.3 % (11.6-14.8) H Platelet Count 148 K/UL (150-450) L Mean Platelet Volume 11.3 FL (6.5-10.1) H Neutrophils (%) (Auto) 50.3 % (45.0-75.0) Lymphocytes (%) (Auto) 37.8 % (20.0-45.0) Monocytes (%) (Auto) 8.3 % (1.0-10.0) Eosinophils (%) (Auto) 3.0 % (0.0-3.0) Basophils (%) (Auto) 0.6 % (0.0-2.0) Sodium Level 143 MMOL/L (136-145) Potassium Level 4.1 MMOL/L (3.5-5.1) Chloride Level 107 MMOL/L (98-107) Carbon Dioxide Level 22 MMOL/L (21-32) Anion Gap 14 mmol/L (5-15) Blood Urea Nitrogen 36 mg/dL (7-18) H Creatinine 2.3 MG/DL (0.55-1.30) H Estimat Glomerular Filtration Rate mL/min (>60) Glucose Level 157 MG/DL (74-106) H Calcium Level 8.3 MG/DL (8.5-10.1) L Phosphorus Level 4.3 MG/DL (2.5-4.9) Magnesium Level 2.1 MG/DL (1.8-2.4) Total Bilirubin 0.2 MG/DL (0.2-1.0) Aspartate Amino Transf (AST/SGOT) 27 U/L (15-37) Alanine Aminotransferase (ALT/SGPT) 22 U/L (12-78) Alkaline Phosphatase 103 U/L (46-116) Pro-B-Type Natriuretic Peptide 875 pg/mL (0-125) H Total Protein 8.6 G/DL (6.4-8.2) H Albumin 2.7 G/DL (3.4-5.0) L Globulin 5.9 g/dL Albumin/Globulin Ratio 0.5 (1.0-2.7) L Current Medications Medications (Trade) Dose Ordered Sig/Nancy Route PRN Reason Start Time Stop Time Status Last Admin Dose Admin Albuterol Sulfate (Proventil) 2.5 mg Q4H PRN HHN Shortness of Breath 09/20/17 19:43 09/25/17 19:42 09/23/17 15:41 Amlodipine Besylate (Norvasc) 5 mg Q12HR GT 09/20/17 21:00 10/20/17 20:59 09/24/17 09:26 Apixaban (Eliquis) 2.5 mg BID GT 09/21/17 09:00 10/21/17 08:59 09/24/17 09:27 Dextrose (Dextrose 50%) 25 ml STAT PRN IV Hypoglycemia 09/20/17 23:30 10/20/17 23:29 Dextrose (Dextrose 50%) 50 ml STAT PRN IV Hypoglycemia 09/20/17 23:30 10/20/17 23:29 Dextrose/ Electrolytes 1,000 ml @ 100 mls/hr Q10H IV 09/22/17 15:00 10/22/17 14:59 09/24/17 05:41 Epoetin Wallace (Procrit (for non ESRD use)) 10,000 units SAT-SAT-SAT SUBQ 09/23/17 21:00 10/23/17 20:59 09/23/17 22:02 Insulin Aspart (NovoLOG) EVERY 6 HOURS SUBQ 09/22/17 00:00 10/21/17 06:29 09/24/17 12:47 Lansoprazole (Prevacid) 30 mg Q12HR GT 09/21/17 21:00 10/21/17 20:59 09/24/17 09:26 Levetiracetam (Keppra) 750 mg Q12HR GT 09/20/17 21:00 10/20/17 20:59 09/24/17 09:26 Metoclopramide HCl (Reglan) 5 mg Q6HR GT 09/21/17 00:00 10/21/17 00:00 09/24/17 12:44 Nateglinide (Starlix) 60 mg Q8HR ORAL 09/22/17 16:00 10/22/17 15:59 09/24/17 05:41 Piperacillin Sod/ Tazobactam Sod 2.25 gm/Dextrose 110 ml @ 220 mls/hr EVERY 8 HOURS IVPB 09/21/17 14:00 09/29/17 23:00 09/24/17 05:40 Sodium Citrate (Bicitra) 30 ml EVERY 6 HOURS GT 09/23/17 09:30 10/23/17 09:29 09/24/17 12:44 Tramadol HCl (Ultram) 25 mg Q6H PRN GT for pain over 6 09/20/17 19:43 09/27/17 19:42 Tramadol HCl (Ultram) 25 mg Q8HR ORAL 09/23/17 22:00 09/30/17 21:59 09/24/17 05:43 Ayala Forman M.D. September 24, 2017 13:05
--- NOTE | 2017-09-24 15:10 | General Progress Note ---
Assessment/Plan Problem List: (1) Aspiration pneumonia ICD Codes: J69.0 - Pneumonitis due to inhalation of food and vomit SNOMED: 821040412 (2) UTI (urinary tract infection) (3) Dehydration ICD Codes: E86.0 - Dehydration SNOMED: 60430230 (4) Diabetes Assessment & Plan: OOC ICD Codes: E11.9 - Type 2 diabetes mellitus without complications SNOMED: 90047252 (5) Functional quadriplegia ICD Codes: R53.2 - Functional quadriplegia SNOMED: 316742215898608 Status: stable Assessment/Plan stop hydrate- start feeding up dose starlix K supplement antibiotics- pulm toilet ? DC in am? will discuss with ID Subjective ROS Limited/Unobtainable: No Constitutional: Reports: malaise, weakness Allergies: Coded Allergies: No Known Allergies (Verified , 01/27/10) Objective Last 24 Hour Vital Signs Date Time Temp Pulse Resp B/P (MAP) Pulse Ox O2 Delivery O2 Flow Rate FiO2 09/24/17 12:00 96.8 91 20 133/77 96 Room Air 96.8 09/24/17 11:43 83 09/24/17 09:26 93 123/55 09/24/17 08:00 96.3 93 20 123/55 92 Room Air 96.3 09/24/17 07:53 86 09/24/17 07:32 92 22 Room Air 21 09/24/17 05:43 97.7 09/24/17 04:00 97.7 95 25 105/53 93 Room Air 97.7 09/24/17 04:00 86 09/24/17 00:00 97.0 101 24 116/72 90 Room Air 97.0 09/24/17 00:00 85 09/23/17 22:01 91 147/113 09/23/17 20:00 98.0 91 20 147/113 100 Room Air 98.0 09/23/17 20:00 88 09/23/17 18:35 85 20 Room Air 21 09/23/17 16:00 97.3 80 20 145/76 99 Room Air 97.3 09/23/17 16:00 97 Intake and Output 09/23/17 09/24/17 19:00 07:00 Intake Total 1510 ml 810 ml Output Total 1000 ml Balance 1510 ml -190 ml Intake Free Water 200 ml 260 ml IV Total 1110 ml 220 ml Tube Feeding 200 ml 330 ml Output Urine Total 1000 ml # Bowel Movements 3 1 Laboratory Tests 09/24/17 04:50: White Blood Count 7.0, Red Blood Count 2.91L, Hemoglobin 9.2L, Hematocrit 27.2L , Mean Corpuscular Volume 94, Mean Corpuscular Hemoglobin 31.6H, Mean Corpuscular Hemoglobin Concent 33.7, Red Cell Distribution Width 15.3H, Platelet Count 148L, Mean Platelet Volume 11.3H, Neutrophils (%) (Auto) 50.3, Lymphocytes (%) (Auto) 37.8, Monocytes (%) (Auto) 8.3, Eosinophils (%) (Auto) 3.0, Basophils (%) (Auto) 0.6, Sodium Level 143, Potassium Level 4.1, Chloride Level 107, Carbon Dioxide Level 22, Anion Gap 14, Blood Urea Nitrogen 36H, Creatinine 2.3H, Estimat Glomerular Filtration Rate , Glucose Level 157H, Calcium Level 8.3L, Phosphorus Level 4.3, Magnesium Level 2.1, Total Bilirubin 0.2, Aspartate Amino Transf (AST/SGOT) 27, Alanine Aminotransferase (ALT/SGPT) 22, Alkaline Phosphatase 103, Pro-B-Type Natriuretic Peptide 875H, Total Protein 8.6H, Albumin 2.7L, Globulin 5.9, Albumin/Globulin Ratio 0.5L Height (Feet): 5 Height (Inches): 4.00 Weight (Pounds): 166 General Appearance: no apparent distress Cardiovascular: normal rate Respiratory/Chest: decreased breath sounds Abdomen: soft Objective no change GEORGE MONDRAGON September 24, 2017 15:10
[2017-09-24 16:00] VITALS: BP 100/48
[2017-09-24 20:00] VITALS: BP 84/69
[2017-09-25] VITALS: BP 88/52
[2017-09-25] MEDS: Metoclopramide 10mg/10ml Liq GT SCH ×3 (00:01→12:52)
[2017-09-25 04:00] VITALS: BP 106/65
[2017-09-25] MEDS: Piperacillin/Tazobactam 2.25 GM in D5W 110 ML IVPB SCH (05:34)
[2017-09-25] MEDS: NovoLOG Insulin Flexpen SUBQ SCH ×3 (05:34→12:00)
[2017-09-25] MEDS: traMADol 50mg tab ORAL SCH (05:35)
[2017-09-25 08:00] VITALS: BP 121/58
[2017-09-25] MEDS: Eliquis 2.5mg tablet GT SCH (08:49)
[2017-09-25] MEDS: levETIRAcetam 500mg/5ml Liquid GT SCH (08:50)
--- NOTE | 2017-09-25 10:46 | General Progress Note ---
Assessment/Plan Problem List: (1) Aspiration pneumonia ICD Codes: J69.0 - Pneumonitis due to inhalation of food and vomit SNOMED: 278768762 (2) UTI (urinary tract infection) (3) Dehydration ICD Codes: E86.0 - Dehydration SNOMED: 11852296 (4) Diabetes Assessment & Plan: OOC ICD Codes: E11.9 - Type 2 diabetes mellitus without complications SNOMED: 37550957 (5) Functional quadriplegia ICD Codes: R53.2 - Functional quadriplegia SNOMED: 017638564573816 Status: stable Assessment/Plan per ID DC on IV/IM Ertapenem for 10 days Ampicillin 500 Q6 for 10 days stop hydrate- feeding on starlix K supplement as needed pulm toilet DC to [facility] will discuss with ID Subjective ROS Limited/Unobtainable: No Constitutional: Reports: malaise Allergies: Coded Allergies: No Known Allergies (Verified , 01/27/10) Objective Last 24 Hour Vital Signs Date Time Temp Pulse Resp B/P (MAP) Pulse Ox O2 Delivery O2 Flow Rate FiO2 09/25/17 08:49 84 121/58 09/25/17 08:00 97.7 84 22 121/58 99 Room Air 97.7 09/25/17 08:00 78 09/25/17 07:30 80 18 Room Air 21 09/25/17 05:11 85 09/25/17 04:00 97.0 88 19 106/65 95 Room Air 97.0 09/25/17 00:00 98.6 88 19 88/52 97 Room Air 98.6 09/24/17 23:59 87 09/24/17 21:47 90 18 Room Air 21 09/24/17 21:00 81 87/56 09/24/17 20:00 98.2 92 20 84/69 98 Room Air 98.2 09/24/17 19:04 87 09/24/17 16:00 98.3 96 20 100/48 100 Room Air 98.3 09/24/17 16:00 89 09/24/17 12:00 96.8 91 20 133/77 96 Room Air 96.8 09/24/17 11:43 83 Current Medications Medications (Trade) Dose Ordered Sig/Nancy Route PRN Reason Start Time Stop Time Status Last Admin Dose Admin Albuterol Sulfate (Proventil) 2.5 mg Q4H PRN HHN Shortness of Breath 09/20/17 19:43 09/25/17 19:42 09/23/17 15:41 Amlodipine Besylate (Norvasc) 5 mg Q12HR GT 09/20/17 21:00 10/20/17 20:59 09/25/17 08:49 Ampicillin (Ampicillin) 500 mg EVERY 6 HOURS GT 09/25/17 12:00 10/02/17 11:59 UNV Apixaban (Eliquis) 2.5 mg BID GT 09/21/17 09:00 10/21/17 08:59 09/25/17 08:49 Dextrose (Dextrose 50%) 25 ml STAT PRN IV Hypoglycemia 09/20/17 23:30 10/20/17 23:29 Dextrose (Dextrose 50%) 50 ml STAT PRN IV Hypoglycemia 09/20/17 23:30 10/20/17 23:29 Epoetin Wallace (Procrit (for non ESRD use)) 10,000 units SAT-SAT-SAT SUBQ 09/23/17 21:00 10/23/17 20:59 09/23/17 22:02 Insulin Aspart (NovoLOG) EVERY 6 HOURS SUBQ 09/22/17 00:00 10/21/17 06:29 09/24/17 17:55 Lansoprazole (Prevacid) 30 mg Q12HR GT 09/21/17 21:00 10/21/17 20:59 09/25/17 08:49 Levetiracetam (Keppra) 750 mg Q12HR GT 09/20/17 21:00 10/20/17 20:59 09/25/17 08:50 Metoclopramide HCl (Reglan) 5 mg Q6HR GT 09/21/17 00:00 10/21/17 00:00 09/25/17 05:34 Nateglinide (Starlix) 120 mg Q8HR ORAL 09/24/17 22:00 10/22/17 15:59 09/25/17 05:34 Piperacillin Sod/ Tazobactam Sod 2.25 gm/Dextrose 110 ml @ 220 mls/hr EVERY 8 HOURS IVPB 09/21/17 14:00 09/29/17 23:00 09/25/17 05:34 Tramadol HCl (Ultram) 25 mg Q6H PRN GT for pain over 6 09/20/17 19:43 09/27/17 19:42 Tramadol HCl (Ultram) 25 mg Q8HR ORAL 09/23/17 22:00 09/30/17 21:59 09/25/17 05:35 Intake and Output 09/24/17 09/25/17 19:00 07:00 Intake Total 100 ml Output Total 600 ml 500 ml Balance -500 ml -500 ml IV Total 100 ml Output Urine Total 600 ml 500 ml # Bowel Movements 2 1 Height (Feet): 5 Height (Inches): 4.00 Weight (Pounds): 195 General Appearance: no apparent distress, lethargic Respiratory/Chest: decreased breath sounds Abdomen: soft Objective no change GEORGE MONDRAGON September 25, 2017 10:46
[2017-09-25] MEDS ORDERED: STARLIX120 MG ORAL (10:51)
[2017-09-25] MEDS ORDERED: INVANZ1 G1 IM (10:51)
[2017-09-25] MEDS ORDERED: NOVOLOG100 UNITS1 SUBQ (10:51)
[2017-09-25] MEDS ORDERED: ELIQUIS2.5 MG GT (10:51)
[2017-09-25] MEDS ORDERED: AMPICILLIN TRI500 MG GT (10:51)
[2017-09-25] MEDS ORDERED: ALBUTEROL2.5 MG/3 M HHN (10:51)
--- NOTE | 2017-09-25 10:53 | Discharge Instructions ---
Discharge Instructions Discharge Instructions Diet: other - gt feeding glucerna Special Instructions cbc cmp q saturday 4 weeks fax results aspiration percautions wound care- do not remove the denver on stump For Congestive Heart Failure Reminder Report to your physician any weight gain of 5 pounds or more in one week. GEORGE MONDRAGON September 25, 2017 10:53
[2017-09-25 12:00] VITALS: BP 139/65
[2017-09-25] MEDS ORDERED: Ertapenem 1 GM in NS 110 ML IV ONE (12:00)
--- NOTE | 2017-09-25 12:11 | Pulmonology Progress Note ---
Assessment/Plan Problems: (1) Aspiration pneumonia (2) Diabetes (3) CKD (chronic kidney disease) (4) Dementia (5) Functional quadriplegia Assessment/Plan improving respiratory treatment iv abx check cultures respiratory treatment check electrolytes dvt prophylaxis symptomatic treatment pt has multiple admissions, with end stage dementia, vegetative state with multiple medical problems, bed bound, incontinent, aphasic. Pt qualifies and benefits from hospice care. Subjective ROS Limited/Unobtainable: No Constitutional: Reports: no symptoms HEENT: Repors: no symptoms Allergies: Coded Allergies: No Known Allergies (Verified , 01/27/10) Objective Last 24 Hour Vital Signs Date Time Temp Pulse Resp B/P (MAP) Pulse Ox O2 Delivery O2 Flow Rate FiO2 09/25/17 08:49 84 121/58 09/25/17 08:00 97.7 84 22 121/58 99 Room Air 97.7 09/25/17 08:00 78 09/25/17 07:30 80 18 Room Air 21 09/25/17 05:11 85 09/25/17 04:00 97.0 88 19 106/65 95 Room Air 97.0 09/25/17 00:00 98.6 88 19 88/52 97 Room Air 98.6 09/24/17 23:59 87 09/24/17 21:47 90 18 Room Air 21 09/24/17 21:00 81 87/56 09/24/17 20:00 98.2 92 20 84/69 98 Room Air 98.2 09/24/17 19:04 87 09/24/17 16:00 98.3 96 20 100/48 100 Room Air 98.3 09/24/17 16:00 89 Intake and Output 09/24/17 09/25/17 19:00 07:00 Intake Total 100 ml Output Total 600 ml 500 ml Balance -500 ml -500 ml IV Total 100 ml Output Urine Total 600 ml 500 ml # Bowel Movements 2 1 General Appearance: WD/WN HEENT: normocephalic, atraumatic Respiratory/Chest: chest wall non-tender, lungs clear Breasts: no masses Cardiovascular: normal rate Abdomen: normal bowel sounds, soft, non tender Neurologic/Psychiatric: pharmacognosist II-XII grossly normal, no motor/sensory deficits Current Medications Medications (Trade) Dose Ordered Sig/Nancy Route PRN Reason Start Time Stop Time Status Last Admin Dose Admin Albuterol Sulfate (Proventil) 2.5 mg Q4H PRN HHN Shortness of Breath 09/20/17 19:43 09/25/17 19:42 09/23/17 15:41 Amlodipine Besylate (Norvasc) 5 mg Q12HR GT 09/20/17 21:00 10/20/17 20:59 09/25/17 08:49 Ampicillin (Ampicillin) 500 mg Q8HR GT 09/25/17 14:00 10/05/17 13:59 Apixaban (Eliquis) 2.5 mg BID GT 09/21/17 09:00 10/21/17 08:59 09/25/17 08:49 Dextrose (Dextrose 50%) 25 ml STAT PRN IV Hypoglycemia 09/20/17 23:30 10/20/17 23:29 Dextrose (Dextrose 50%) 50 ml STAT PRN IV Hypoglycemia 09/20/17 23:30 10/20/17 23:29 Epoetin Wallace (Procrit (for non ESRD use)) 10,000 units SAT-SAT-SAT SUBQ 09/23/17 21:00 10/23/17 20:59 09/23/17 22:02 Ertapenem 1 gm/ Sodium Chloride 110 ml @ 220 mls/hr ONCE ONCE IV 09/25/17 12:00 09/25/17 12:29 Insulin Aspart (NovoLOG) EVERY 6 HOURS SUBQ 09/22/17 00:00 10/21/17 06:29 09/24/17 17:55 Lansoprazole (Prevacid) 30 mg Q12HR GT 09/21/17 21:00 10/21/17 20:59 09/25/17 08:49 Levetiracetam (Keppra) 750 mg Q12HR GT 09/20/17 21:00 10/20/17 20:59 09/25/17 08:50 Metoclopramide HCl (Reglan) 5 mg Q6HR GT 09/21/17 00:00 10/21/17 00:00 09/25/17 05:34 Nateglinide (Starlix) 120 mg Q8HR ORAL 09/24/17 22:00 10/22/17 15:59 09/25/17 05:34 Tramadol HCl (Ultram) 25 mg Q6H PRN GT for pain over 6 09/20/17 19:43 09/27/17 19:42 Tramadol HCl (Ultram) 25 mg Q8HR ORAL 09/23/17 22:00 09/30/17 21:59 09/25/17 05:35 Saira Lazcano MD September 25, 2017 12:11
--- NOTE | 2017-09-25 13:38 | Infectious Diseases Prog Note ---
Assessment/Plan Problems: (1) Aspiration pneumonia Assessment & Plan: suspect aspiration , with sputum culture grew morganella morgannii , proteus mirabilus and enterococcus faecalis, will switch zosyn empiric coverage to ertapenem and ampicillin to treat for 10 more days , keep HOB > 30 degree all times with aspiration precaution. (2) UTI (urinary tract infection) Assessment & Plan: with MDR proteus mirabilis , on zosyn will switch to ertapenem and treat for 10 days (3) Sepsis Assessment & Plan: due to the above, with negative blood culture , now on ertapenem and ampicillin (4) Fever Assessment & Plan: due to the above, resolved , continue tylenol as needed (5) Dehydration Assessment & Plan: continue IVF , monitor electrolytes , and renal function tests Subjective ROS Limited/Unobtainable: Yes Allergies: Coded Allergies: No Known Allergies (Verified , 01/27/10) Subjective she was resting in bed , unresponsive, dosen't follow commands, afebrile, not in distress. comfortable Objective Vital Signs Last 24 Hour Vital Signs Date Time Temp Pulse Resp B/P (MAP) Pulse Ox O2 Delivery O2 Flow Rate FiO2 09/25/17 12:00 97.7 84 22 139/65 99 Room Air 97.7 09/25/17 08:49 84 121/58 09/25/17 08:00 97.7 84 22 121/58 99 Room Air 97.7 09/25/17 08:00 78 09/25/17 07:30 80 18 Room Air 21 09/25/17 05:11 85 09/25/17 04:00 97.0 88 19 106/65 95 Room Air 97.0 09/25/17 00:00 98.6 88 19 88/52 97 Room Air 98.6 09/24/17 23:59 87 09/24/17 21:47 90 18 Room Air 21 09/24/17 21:00 81 87/56 09/24/17 20:00 98.2 92 20 84/69 98 Room Air 98.2 09/24/17 19:04 87 09/24/17 16:00 98.3 96 20 100/48 100 Room Air 98.3 09/24/17 16:00 89 Height (Feet): 5 Height (Inches): 4.00 Weight (Pounds): 195 General Appearance: WD/WN, no acute distress HEENT: normocephalic, atraumatic, anicteric, mucous membranes moist Respiratory/Chest: chest wall non-tender, lungs clear, normal breath sounds, no respiratory distress, no accessory muscle use Cardiovascular: normal peripheral pulses, normal rate, regular rhythm, no gallop/murmur, no JVD Abdomen: normal bowel sounds, soft, non tender, no organomegaly, non distended , no mass, no scars Extremities: no cyanosis, no clubbing Skin: no rash, no lesions, ulcers Neurologic/Psychiatric: unresponsiveness Current Medications Medications (Trade) Dose Ordered Sig/Nancy Route PRN Reason Start Time Stop Time Status Last Admin Dose Admin Albuterol Sulfate (Proventil) 2.5 mg Q4H PRN HHN Shortness of Breath 09/20/17 19:43 09/25/17 19:42 09/23/17 15:41 Amlodipine Besylate (Norvasc) 5 mg Q12HR GT 09/20/17 21:00 10/20/17 20:59 09/25/17 08:49 Ampicillin (Ampicillin) 500 mg Q8HR GT 09/25/17 14:00 10/05/17 13:59 Apixaban (Eliquis) 2.5 mg BID GT 09/21/17 09:00 10/21/17 08:59 09/25/17 08:49 Dextrose (Dextrose 50%) 25 ml STAT PRN IV Hypoglycemia 09/20/17 23:30 10/20/17 23:29 Dextrose (Dextrose 50%) 50 ml STAT PRN IV Hypoglycemia 09/20/17 23:30 10/20/17 23:29 Epoetin Wallace (Procrit (for non ESRD use)) 10,000 units SAT-SAT-SAT SUBQ 09/23/17 21:00 10/23/17 20:59 09/23/17 22:02 Insulin Aspart (NovoLOG) EVERY 6 HOURS SUBQ 09/22/17 00:00 10/21/17 06:29 09/24/17 17:55 Lansoprazole (Prevacid) 30 mg Q12HR GT 09/21/17 21:00 10/21/17 20:59 09/25/17 08:49 Levetiracetam (Keppra) 750 mg Q12HR GT 09/20/17 21:00 10/20/17 20:59 09/25/17 08:50 Metoclopramide HCl (Reglan) 5 mg Q6HR GT 09/21/17 00:00 10/21/17 00:00 09/25/17 12:52 Nateglinide (Starlix) 120 mg Q8HR ORAL 09/24/17 22:00 10/22/17 15:59 09/25/17 05:34 Tramadol HCl (Ultram) 25 mg Q6H PRN GT for pain over 6 09/20/17 19:43 09/27/17 19:42 Tramadol HCl (Ultram) 25 mg Q8HR ORAL 09/23/17 22:00 09/30/17 21:59 09/25/17 05:35 Ayala Forman M.D. September 25, 2017 13:38
--- NOTE | 2017-09-26 11:49 | Discharge Summary ---
Discharge Summary Discharge Summary _ DATE OF ADMISSION: 09/20/2017 DATE OF DISCHARGE: 09/25/2017 CONSULTANTS: Dr. Ayala Carter BRIEF HOSPITAL COURSE: Patient is an 82-year-old female, resident of [facility]. Patient was transferred to the emergency room due to increased lethargy and elevated BUN and creatinine. 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 She has dementia, is on G-tube feed, and functional quadriplegia. On evaluation at ED, vitals were stable, however temperature was 100.7, blood work showed WBC 10.8, hemoglobin 10, hematocrit 34. She had elevated sodium level 167, chloride was 128. Urinalysis with 5-10 WBC, 10-15 RBC, 3+ leukocyte esterase. Chest ray with right upper lung opacity. EKG was in normal sinus rhythm. She was found to have evidence of UTI, pneumonia and dehydration. She was admitted to telemetry for further evaluation. She was given IV hydration and was started empirically on Zosyn for probable aspiration pneumonia. She was placed on aspiration precautions and was started on G-tube feedings. Hemoglobin A1c was 6.8. Blood glucose was monitored. She was placed on insulin sliding scale. She was given Starlix 120 mg every 8 hours. She had recent left [id number] amputation. Surgical evaluation was done left AKA stump was healing well. No edema, no drainage. Recommended leave open to air and keep elevated as possible. Every other denver were removed. Remaining denver advised to be kept in place for another 2 weeks. He was given wound care. Urine culture showed growth of MDR Proteus mirabilis. Zosyn was switched to ertapenem. Wound culture grew Morganella, Proteus mirabilis and Enterococcus faecalis. She was given ertapenem and ampicillin. Blood culture did not isolate any growth. Repeat urine culture did not isolate any growth. He was given respiratory treatments. He eventually defervesced. FINAL DIAGNOSES: Aspiration pneumonia Urinary tract infection with Proteus Dehydration Diabetes mellitus out of control Functional quadriplegia Acute on Chronic renal failure Dementia Recent DVT on the right leg on Eliquis. Dysphagia on G-tube History of seizure disorder DISPOSITION: Patient was discharged to [facility]. DISCHARGE MEDICATIONS: Refer to Discharge Medication List. DISCHARGE INSTRUCTIONS: CBC, CMP every Saturday for 4 weeks. Aspiration precautions. Wound care. Do not remove denver on stump upon discharge. Remaining denver to remain for another 2 weeks. I have been assigned to dictate discharge summary on this account, and I was not involved in the patient's management. Alyce Keane NP September 26, 2017 11:49
== END 2017-09-25 15:22 | DRG 871 ==
LOC: EDBD 16:48 → EMR 18:00 → 2E 18:23 → EDBEDREQ 18:33 → 2E 09-22 23:09
DX: A41.9 Sepsis, unspecified organism (principal); J69.0 Pneumonitis due to inhalation of food and vomit; R53.2 Functional quadriplegia; N39.0 Urinary tract infection, site not specified; N17.9 Acute kidney failure, unspecified; Z43.1 Encounter for attention to gastrostomy; E87.0 Hyperosmolality and hypernatremia; B96.4 Proteus (mirabilis) (morganii) as the cause of diseases classified elsewhere; Z16.24 Resistance to multiple antibiotics; E86.0 Dehydration; Z86.718 Personal history of other venous thrombosis and embolism; G40.909 Epilepsy, unspecified, not intractable, without status epilepticus; E11.65 Type 2 diabetes mellitus with hyperglycemia; E11.22 Type 2 diabetes mellitus with diabetic chronic kidney disease; N18.9 Chronic kidney disease, unspecified; F03.90 Unspecified dementia, unspecified severity, without behavioral disturbance, psychotic disturbance, mood disturbance, and anxiety; Z79.01 Long term (current) use of anticoagulants; R13.10 Dysphagia, unspecified; Z89.612 Acquired absence of left leg above knee
CPT/HCPCS: 36415; 71045; 80053; 80061; 81003; 82550; 82553; 82607; 82728; 82746; 82962; 82977; 83036; 83540; 83550; 83605; 83735; 83880; 84100; 84300; 84443; 84484; 84550; 85025; 86140; 87040; 87070; 87081; 87086; 87181; 87205; 93005; 94664; 99285; J1815

== ENCOUNTER 2018-01-06 19:32 | Inpatient (IN) | payer MEDICARE, MEDICAID ==
[~2018-01-06] VITALS: Ht 165.1 cm; Wt 82.7 kg
[~2018-01-06 19:32] MED LIST changes: +ALBUTEROL2.5 MG/3 M INH; +CRANBERRY450 M5 GT; +INVANZ1 G1 IM; +KEPPRA500 M4 ORAL; +MAPAP650 MG/20. GT; +MULTI-DELYN237 ML GT; +NOVOLOG100 UNIT/3 SUBQ; +STARLIX120 MG ORAL
[2018-01-06 19:40] VITALS: BP 110/45
[2018-01-06 20:37] LABS: BASOPHILS % (AUTO) 0.6 % (0.0-2.0); EOSINOPHILS % (AUTO) 1.2 % (0.0-3.0); HEMATOCRIT 24.7 % (37.0-47.0); LYMPHOCYTES % (AUTO) 46.4 % (20.0-45.0); MEAN CORPUSCULAR VOLUME 110 FL (80-99); MONOCYTES % (AUTO) 5.9 % (1.0-10.0); PLATELET COUNT 113 K/UL (150-450); RED BLOOD COUNT 2.24 M/UL (4.20-5.40); RED CELL DISTRIBUTION WIDTH 13.2 % (11.6-14.8); WHITE BLOOD COUNT 8.9 K/UL (4.8-10.8)
[2018-01-06] MEDS ORDERED: Albuterol/Ipratropium 3ml neb HHN PRN (20:45)
[2018-01-06] MEDS ORDERED: Miralax 17gm pkt ORAL PRN (20:45)
[2018-01-06] MEDS ORDERED: Nitroglycerin Subl 0.4mg tab SL PRN (20:45)
[2018-01-06] MEDS ORDERED: Morphine Sulfate 2mg/ml Inj IVP PRN (20:45)
[2018-01-06] MEDS ORDERED: Mylanta II UD 30ml ORAL PRN (20:45)
[2018-01-06 20:52] LABS: ALANINE AMINOTRANSFERASE 13 U/L (12-78); ALBUMIN 2.7 G/DL (3.4-5.0); ALBUMIN/GLOBULIN RATIO 0.4 (1.0-2.7); ALKALINE PHOSPHATASE 82 U/L (46-116); ANION GAP 12 mmol/L (5-15); ASPARTATE AMINO TRANSFERASE 12 U/L (15-37); BILIRUBIN,TOTAL 0.3 MG/DL (0.2-1.0); BLOOD UREA NITROGEN 122 mg/dL (7-18); CALCIUM 8.8 MG/DL (8.5-10.1); CARBON DIOXIDE 26 MMOL/L (21-32); CHLORIDE 130 MMOL/L (98-107); CREATININE 4.6 MG/DL (0.55-1.30); POTASSIUM 5.1 MMOL/L (3.5-5.1)
[2018-01-06 20:55] LABS: SODIUM 168 MMOL/L (136-145)
--- NOTE | 2018-01-06 21:08 | Emergency Room Report ---
History of Present Illness General Chief Complaint: Abnormal Labs Source: Medical Record, EMS Present Illness HPI 82-year-old female presents ED for evaluation. Patient presenting with elevated blood sugar from snf facility 1 day. Accu-Chek in the 400s. Patient not given insulin prior to arrival. Patient is nonverbal at baseline. No signs of distress. Afebrile. No other aggravating relieving factors. No other associated symptoms Allergies: Coded Allergies: No Known Allergies (Verified , 01/27/10) Patient History Past Medical History: DM, HTN, COPD, CVA/TIA, seizures Pertinent Family History: none Social History: Denies: smoking, alcohol use, drug use Last Menstrual Period: n/a Now: No Immunizations: UTD Reviewed Nursing Documentation: PMH: Agreed; PSxH: Agreed Nursing Documentation-PMH Past Medical History: No History, Except For Hx Cardiac Problems: Yes - Sepsis, DVT Hx Hypertension: Yes Hx Pacemaker: No Hx Asthma: No Hx COPD: Yes - PNA Hx Diabetes: Yes - DM2 Hx Cancer: No Hx Gastrointestinal Problems: No - Gtube Hx Dialysis: No 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 Hx Dementia: Yes Hx Seizures: Yes - Epilepsy Hx Speech Problem: Yes - Non-verbal Hx Dysphasia: Yes - G-tube Review of Systems All Other Systems: limited Physical Exam Vital Signs Date Time Temp Pulse Resp B/P (MAP) Pulse Ox O2 Delivery O2 Flow Rate FiO2 01/06/18 19:34 99.0 91 22 109/71 95 Nasal Cannula 2.0 99.0 Sp02 EP Interpretation: reviewed, normal General Appearance: no apparent distress, other - nonverbal Head: normocephalic, atraumatic Eyes: bilateral eye normal inspection, bilateral eye PERRL ENT: hearing grossly normal, normal pharynx, no angioedema, normal voice Neck: full range of motion, supple/symm/no masses Respiratory: chest non-tender, lungs clear, normal breath sounds, speaking full sentences Cardiovascular #1: regular rate, rhythm, no edema Cardiovascular #2: 2+ carotid (R), 2+ carotid (L), 2+ radial (R), 2+ radial (L) , 2+ dorsalis pedis (R), 2+ dorsalis pedis (L) Gastrointestinal: normal bowel sounds, non tender, soft, non-distended, no guarding, no rebound Rectal: deferred Genitourinary: normal inspection, no CVA tenderness Musculoskeletal: back normal, non-tender Neurologic: speech normal, other - nonverbal Psychiatric: other - nonvebrla Reflexes: 3+ bicep (R), 3+ bicep (L), 3+ tricep (R), 3+ tricep (L), 3+ knee (R) , 3+ knee (L) Skin: normal color, no rash, warm/dry, well hydrated Lymphatic: no adenopathy Medical Decision Making Diagnostic Impression: Primary Impression: CKD (chronic kidney disease) Qualified Codes: N18.9 - Chronic kidney disease, unspecified Additional Impressions: Dehydration Hypernatremia Hyperglycemia UTI (urinary tract infection) Qualified Codes: N39.0 - Urinary tract infection, site not specified Sepsis Qualified Codes: A41.9 - Sepsis, unspecified organism ER Course Hospital Course 82 yo F presents to ED with elevated fingerstick Differential diagnoses include: dehydration, sepsis, DKA, UTI Clinical course Patient placed on stretcher. 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 After initial history and physical I ordered labs, IV fluids, urine and chest Xray Labs-glucose greater than 400, no DKA, BUN/Cr elevated compared to prior visits , lactate > 2, Na > 160, UA+ bacteria Chest x-ray unremarkable IVFs given, abx given. Case discussed with Dr. Roberto and he agreed to accept the patient to his service for further care and support i. I feel this is a highly complex case requiring extensive working including EKG/Rhythm strip, Xray/CT/US, Blood/urine lab work, repeat exams while in ED, and administration of strong opiates/narcotics for pain control, admission to hospital or close patient follow up. diagnosis - CKD, dehydration, hypernatremia, hyperglycemia, UTI, sepsis admitted to telemtry in serious condition Labs Test 01/06/18 20:00 01/06/18 21:02 01/06/18 21:55 White Blood Count 8.9 K/UL (4.8-10.8) Red Blood Count 2.24 M/UL (4.20-5.40) Hemoglobin 8.0 G/DL (12.0-16.0) Hematocrit 24.7 % (37.0-47.0) Mean Corpuscular Volume 110 FL (80-99) Mean Corpuscular Hemoglobin 35.7 PG (27.0-31.0) Mean Corpuscular Hemoglobin Concent 32.3 G/DL (32.0-36.0) Red Cell Distribution Width 13.2 % (11.6-14.8) Platelet Count 113 K/UL (150-450) Mean Platelet Volume 12.1 FL (6.5-10.1) Neutrophils (%) (Auto) 46.0 % (45.0-75.0) Lymphocytes (%) (Auto) 46.4 % (20.0-45.0) Monocytes (%) (Auto) 5.9 % (1.0-10.0) Eosinophils (%) (Auto) 1.2 % (0.0-3.0) Basophils (%) (Auto) 0.6 % (0.0-2.0) Sodium Level 168 MMOL/L (136-145) Potassium Level 5.1 MMOL/L (3.5-5.1) Chloride Level 130 MMOL/L (98-107) Carbon Dioxide Level 26 MMOL/L (21-32) Anion Gap 12 mmol/L (5-15) Blood Urea Nitrogen 122 mg/dL (7-18) Creatinine 4.6 MG/DL (0.55-1.30) Estimat Glomerular Filtration Rate mL/min (>60) Glucose Level 357 MG/DL (74-106) Lactic Acid Level 2.20 mmol/L (0.4-2.0) Calcium Level 8.8 MG/DL (8.5-10.1) Magnesium Level 4.4 MG/DL (1.8-2.4) Total Bilirubin 0.3 MG/DL (0.2-1.0) Aspartate Amino Transf (AST/SGOT) 12 U/L (15-37) Alanine Aminotransferase (ALT/SGPT) 13 U/L (12-78) Alkaline Phosphatase 82 U/L (46-116) Total Protein 9.4 G/DL (6.4-8.2) Albumin 2.7 G/DL (3.4-5.0) Globulin 6.7 g/dL Albumin/Globulin Ratio 0.4 (1.0-2.7) Acetone Level Negative (NEGATIVE) Urine Color Pale yellow Urine Appearance Slightly cloudy Urine pH 8 (4.5-8.0) Urine Specific [place] 1.010 (1.005-1.035) Urine Protein 4+ (NEGATIVE) Urine Glucose (UA) Negative (NEGATIVE) Urine Ketones Negative (NEGATIVE) Urine Blood 3+ (NEGATIVE) Urine Nitrite Negative (NEGATIVE) Urine Bilirubin Negative (NEGATIVE) Urine Urobilinogen Normal MG/DL (0.0-1.0) Urine Leukocyte Esterase 3+ (NEGATIVE) Urine RBC 5-10 /HPF (0 - 2) Urine WBC 20-30 /HPF (0 - 2) Urine Squamous Epithelial Cells Few /LPF (NONE/OCC) Urine Amorphous Sediment Moderate /LPF (NONE) Urine Bacteria Moderate /HPF (NONE) Chest X-Ray Diagnostic Results Chest X-Ray Diagnostic Results : Chest X-Ray Ordered: Yes # of Views/Limited/Complete: 1 View Indication: Other - ams EP Interpretation: Yes Interpretation: no consolidation, no effusion, no pneumothorax, no acute cardiopulmonary disease Impression: No acute disease Electronically Signed by: Electronically signed by Mario Alberto Delvalle MD Last Vital Signs Date Time Temp Pulse Resp B/P (MAP) Pulse Ox O2 Delivery O2 Flow Rate FiO2 01/06/18 19:40 98.9 84 28 110/45 100 Nasal Cannula 2.0 98.9 Status: improved Disposition: ADMITTED INPATIENT Condition: Serious Referrals: Estevan Orozco MD (PCP) Mario Alberto Delvalle MD Jan 06, 2018 21:08
[2018-01-06 21:21] LABS: APPEARANCE,URINE SLIGHTLY CLOUDY; BILIRUBIN, URINE NEGATIVE (NEGATIVE); COLOR,URINE PALE YELLOW; GLUCOSE, URINE (UA) NEGATIVE (NEGATIVE); KETONES,URINE NEGATIVE (NEGATIVE); LEUKOCYTE ESTERASE ,URINE 3+ (NEGATIVE); NITRITE,URINE NEGATIVE (NEGATIVE); PH,URINE 8 (4.5-8.0); PROTEIN,URINE 4+ (NEGATIVE); UROBILINOGEN,URINE NORMAL MG/DL (0.0-1.0)
[2018-01-06] MEDS ORDERED: NovoLOG Insulin Flexpen SUBQ SCH (22:00)
[2018-01-06] MEDS ORDERED: levETIRAcetam 500mg/5ml Liquid GT SCH (22:00)
[2018-01-06] MEDS ORDERED: Piperacillin/Tazobactam 3.375 GM in NS 110 ML IVPB ONE (22:00)
[2018-01-06 22:07] VITALS: BP 140/59
[2018-01-06] MEDS ORDERED: PRO-STAT LIQUID30 ML GT (22:27)
[2018-01-06] MEDS ORDERED: ACETAMINOPHEN325 M1 GT (22:27)
[2018-01-06] MEDS ORDERED: LANSOPRAZOLE30 MG GT (22:27)
[2018-01-06 22:57] VITALS: BP 126/58
[2018-01-07] VITALS: BP 125/60
[2018-01-07] MEDS: levETIRAcetam 500mg/5ml Liquid GT SCH ×3 (00:46→21:56)
[2018-01-07] MEDS: NovoLOG Insulin Flexpen SUBQ SCH ×7 (00:48→22:22)
--- NOTE | 2018-01-07 01:59 | History & Physical ---
History and Physical History & Physicial acute renal failure Sepsis Anemia DM OOC Functional Quadriplegia Dementia DVT right leg # [id number] Estevan Orozco MD Jan 07, 2018 01:59
[2018-01-07] MEDS ORDERED: Vancomycin 500 MG in D5W 275 ML IVPB ONE (02:00)
[2018-01-07] MEDS: Pantoprazole Inj IVP SCH ×3 (02:34→21:57)
[2018-01-07] MEDS ORDERED: Vancomycin 1gm in D5W 275ml IVPB SCH (03:00)
[2018-01-07 04:00] VITALS: BP 122/57
[2018-01-07] MEDS: Metoclopramide 10mg/10ml Liq GT SCH ×3 (05:33→18:06)
[2018-01-07 06:44] LABS: FERRITIN 1678 NG/ML (8-388); GAMMA GLUTAMYL TRANSPEPTIDASE 20 U/L (5-85); PHOSPHORUS 4.2 MG/DL (2.5-4.9)
[2018-01-07 07:00] LABS: % IRON SATURATION 35 % (15-50); IRON 64 ug/dL (50-175); TOTAL IRON BINDING CAPACITY 182 ug/dL (250-450)
[2018-01-07 07:23] LABS: ALANINE AMINOTRANSFERASE 13 U/L (12-78); ALBUMIN 3.1 G/DL (3.4-5.0); ALBUMIN/GLOBULIN RATIO 0.6 (1.0-2.7); ALKALINE PHOSPHATASE 66 U/L (46-116); ANION GAP 11 mmol/L (5-15); ASPARTATE AMINO TRANSFERASE 11 U/L (15-37); BILIRUBIN,TOTAL 0.4 MG/DL (0.2-1.0); BLOOD UREA NITROGEN 102 mg/dL (7-18); CARBON DIOXIDE 25 MMOL/L (21-32); CHLORIDE 131 MMOL/L (98-107); CHOLESTEROL 130 MG/DL (< 200); HDL CHOLESTEROL 25 MG/DL (40-60); POTASSIUM 4.1 MMOL/L (3.5-5.1); SODIUM 168 MMOL/L (136-145); TRIGLYCERIDES 403 MG/DL (30-150)
[2018-01-07 07:47] LABS: HEMATOCRIT 20.9 % (37.0-47.0); MEAN CORPUSCULAR VOLUME 109 FL (80-99); PLATELET COUNT 90 K/UL (150-450); RED BLOOD COUNT 1.92 M/UL (4.20-5.40); RED CELL DISTRIBUTION WIDTH 13.5 % (11.6-14.8)
[2018-01-07 07:51] LABS: HEMOGLOBIN 6.3 G/DL (12.0-16.0)
[2018-01-07 08:00] VITALS: BP 123/48
[2018-01-07] MEDS: Eliquis 2.5mg tablet GT SCH ×2 (09:00→18:00)
[2018-01-07] MEDS ORDERED: Ertapenem (INVanz) 1gm Inj IM SCH (09:00)
[2018-01-07] MEDS ORDERED: Ertapenem 0.5gm in NS 55ml IVPB SCH (09:00)
[2018-01-07] MEDS: Levemir Flexpen SUBQ SCH ×3 (09:12→22:21)
--- NOTE | 2018-01-07 10:58 | Diagnostic Imaging Report ---
Indication: Shortness of breath Technique: One view of the chest Comparison: 09/23/2017 Findings: The lungs and pleural spaces are clear. The heart size is normal. The aorta is tortuous and calcified. There is no significant interim change Impression: No acute process
--- NOTE | 2018-01-07 11:56 | Consultation ---
History of Present Illness General Date patient seen: Jan 07, 2018 Chief Complaint: Abnormal Labs Present Illness HPI 82-year-old female with CVA, dementia, bed bound, DM, feeding by gtube, vegetative state, seizure disorder sent in by her nursing facility after abnormal laboratory testing and increased lethargy. The patient was noted to have elevated sodium as well as BUN/creatinine on laboratory testing. History is markedly limited by patient's mental status Allergies: Coded Allergies: No Known Allergies (Verified , 01/27/10) Medication History Scheduled Amino Acids/Protein Hydrolys (Pro-Stat Liquid), 30 ML GT TWICE A DAY, (Reported) Amlodipine Besylate (Norvasc), 5 MG GT Q12HR Ampicillin Trihydrate (Ampicillin Trihydrate), 500 MG GT EVERY 6 HOURS Apixaban (Eliquis), 2.5 MG GT BID Ascorbic Acid* (Vitamin C*), 500 MG GT DAILY, (Reported) Cranberry Fruit (Cranberry), 450 MG GT DAILY, (Reported) Ertapenem (Invanz), 1 GM IM DAILY Famotidine (Famotidine), 20 MG GT BID Insulin Aspart (Novolog Flexpen), 0 UNITS SUBQ EVERY 6 HOURS Insulin Aspart* (Novolog*), 0 SUBQ Q6HR, (Reported) Lansoprazole* (Lansoprazole*), 30 MG GT EVERY 12 HOURS, (Reported) Levetiracetam (Keppra), 750 MG GT Q12HR Metoclopramide HCl (Metoclopramide HCl), 5 MG GT Q6HR Multivitamin Liquid* (Multi-Delyn*), 5 ML GT DAILY, (Reported) Nateglinide (Starlix), 120 MG ORAL Q8HR Tramadol Hcl* (Ultram*), 50 MG GT Q8HR, (Reported) Zinc Sulfate (Zinc Sulfate*), 220 MG GT DAILY, (Reported) Scheduled PRN Acetaminophen (Mapap), 650 MG GT Q4HR PRN for Mild Pain/Temp > 100.5, (Reported) Acetaminophen* (Acetaminophen 325MG Tablet*), 650 MG GT Q4H PRN for T>101, ( Reported) Albuterol Sulfate* (Albuterol Sulfate Hhn*), 2.5 MG HHN Q4H PRN Na Phos,M-B/Na Phos,Di-Ba* (Fleet Enema*), 133 ML RECTAL EVERY OTHER DAY PRN for Constipation, (Reported) Polyethylene Glycol 3350* (Miralax*), 17 GM GT DAILY PRN for Constipation, ( Reported) Patient History Healthcare decision maker Resuscitation status Full Code Advanced Directive on File Yes Past Medical/Surgical History Past Medical/Surgical History: (1) CKD (chronic kidney disease) (2) Decubital ulcer (3) Seizure disorder (4) Functional quadriplegia (5) Sacral decubitus ulcer, stage III (6) G tube feedings Review of Systems All Other Systems: negative except mentioned in HPI Physical Exam General Appearance: WD/WN Lines, tubes and drains: peripheral HEENT: normocephalic, atraumatic Neck: non-tender, normal alignment Respiratory/Chest: chest wall non-tender, normal breath sounds Breasts: no masses Cardiovascular/Chest: normal peripheral pulses Abdomen: normal bowel sounds Genitourinary/Rectal: normal genital exam Extremities: normal range of motion Last 24 Hour Vital Signs Date Time Temp Pulse Resp B/P (MAP) Pulse Ox O2 Delivery O2 Flow Rate FiO2 01/07/18 09:10 71 123/48 01/07/18 08:20 Room Air 01/07/18 08:00 97.7 71 20 123/48 (73) 99 97.7 01/07/18 07:40 76 01/07/18 04:00 76 01/07/18 04:00 97.2 77 20 122/57 (78) 100 97.2 01/07/18 00:44 90 125/60 01/07/18 00:00 98.2 90 20 125/60 (81) 98 98.2 01/07/18 00:00 84 01/06/18 23:15 99.5 22 140/59 100 Nasal Cannula 2.0 99.5 01/06/18 23:03 Nasal Cannula 2.0 01/06/18 22:57 97.5 88 18 126/58 (80) 96 97.5 01/06/18 22:07 99.5 86 22 140/59 100 Nasal Cannula 2.0 99.5 01/06/18 19:40 98.9 84 28 110/45 100 Nasal Cannula 2.0 98.9 01/06/18 19:34 99.0 91 22 109/71 95 Nasal Cannula 2.0 99.0 Intake and Output 01/06/18 01/07/18 19:00 07:00 Intake Total 732 ml Output Total 600 ml Balance 132 ml Intake IV Total 732 ml Output Urine Total 600 ml # Voids 1 Laboratory Tests Test 01/06/18 20:00 01/06/18 21:02 01/06/18 21:55 01/07/18 05:20 White Blood Count 8.9 K/UL (4.8-10.8) 7.0 K/UL (4.8-10.8) Red Blood Count 2.24 M/UL (4.20-5.40) L 1.92 M/UL (4.20-5.40) L Hemoglobin 8.0 G/DL (12.0-16.0) L 6.3 G/DL (12.0-16.0) *L Hematocrit 24.7 % (37.0-47.0) L 20.9 % (37.0-47.0) L Mean Corpuscular Volume 110 FL (80-99) H 109 FL (80-99) H Mean Corpuscular Hemoglobin 35.7 PG (27.0-31.0) H 32.8 PG (27.0-31.0) H Mean Corpuscular Hemoglobin Concent 32.3 G/DL (32.0-36.0) 30.2 G/DL (32.0-36.0) L Red Cell Distribution Width 13.2 % (11.6-14.8) 13.5 % (11.6-14.8) Platelet Count 113 K/UL (150-450) L 90 K/UL (150-450) L Mean Platelet Volume 12.1 FL (6.5-10.1) H 11.5 FL (6.5-10.1) H Neutrophils (%) (Auto) 46.0 % (45.0-75.0) % (45.0-75.0) Lymphocytes (%) (Auto) 46.4 % (20.0-45.0) H % (20.0-45.0) Monocytes (%) (Auto) 5.9 % (1.0-10.0) % (1.0-10.0) Eosinophils (%) (Auto) 1.2 % (0.0-3.0) % (0.0-3.0) Basophils (%) (Auto) 0.6 % (0.0-2.0) % (0.0-2.0) Sodium Level 168 MMOL/L (136-145) *H 168 MMOL/L (136-145) *H Potassium Level 5.1 MMOL/L (3.5-5.1) 4.1 MMOL/L (3.5-5.1) Chloride Level 130 MMOL/L (98-107) H 131 MMOL/L (98-107) H Carbon Dioxide Level 26 MMOL/L (21-32) 25 MMOL/L (21-32) Anion Gap 12 mmol/L (5-15) 11 mmol/L (5-15) Blood Urea Nitrogen 122 mg/dL (7-18) H 102 mg/dL (7-18) H Creatinine 4.6 MG/DL (0.55-1.30) H 4.0 MG/DL (0.55-1.30) H Estimat Glomerular Filtration Rate mL/min (>60) mL/min (>60) Glucose Level 357 MG/DL (74-106) H 339 MG/DL (74-106) H Lactic Acid Level 2.20 mmol/L (0.4-2.0) H 1.50 mmol/L (0.66-2.22) Calcium Level 8.8 MG/DL (8.5-10.1) 8.0 MG/DL (8.5-10.1) L Magnesium Level 4.4 MG/DL (1.8-2.4) H 3.9 MG/DL (1.8-2.4) H Total Bilirubin 0.3 MG/DL (0.2-1.0) 0.4 MG/DL (0.2-1.0) Aspartate Amino Transf (AST/SGOT) 12 U/L (15-37) L 11 U/L (15-37) L Alanine Aminotransferase (ALT/SGPT) 13 U/L (12-78) 13 U/L (12-78) Alkaline Phosphatase 82 U/L (46-116) 66 U/L (46-116) Total Protein 9.4 G/DL (6.4-8.2) H 8.5 G/DL (6.4-8.2) H Albumin 2.7 G/DL (3.4-5.0) L 3.1 G/DL (3.4-5.0) L Globulin 6.7 g/dL 5.4 g/dL Albumin/Globulin Ratio 0.4 (1.0-2.7) L 0.6 (1.0-2.7) L Acetone Level Negative (NEGATIVE) Urine Color Pale yellow Urine Appearance Slightly cloudy Urine pH 8 (4.5-8.0) Urine Specific [place] 1.010 (1.005-1.035) Urine Protein 4+ (NEGATIVE) H Urine Glucose (UA) Negative (NEGATIVE) Urine Ketones Negative (NEGATIVE) Urine Blood 3+ (NEGATIVE) H Urine Nitrite Negative (NEGATIVE) Urine Bilirubin Negative (NEGATIVE) Urine Urobilinogen Normal MG/DL (0.0-1.0) Urine Leukocyte Esterase 3+ (NEGATIVE) H Urine RBC 5-10 /HPF (0 - 2) H Urine WBC 20-30 /HPF (0 - 2) H Urine Squamous Epithelial Cells Few /LPF (NONE/OCC) Urine Amorphous Sediment Moderate /LPF (NONE) H Urine Bacteria Moderate /HPF (NONE) H Differential Total Cells Counted 100 Neutrophils % (Manual) 36 % (45-75) L Lymphocytes % (Manual) 53 % (20-45) H Monocytes % (Manual) 4 % (1-10) Eosinophils % (Manual) 1 % (0-3) Basophils % (Manual) 1 % (0-2) Band Neutrophils 5 % (0-8) Platelet Estimate Decreased L Platelet Morphology Normal Hypochromasia 1+ Macrocytosis 1+ Hemoglobin A1c 6.9 % (4.3-6.0) H Uric Acid 8.1 MG/DL (2.6-7.2) H Phosphorus Level 4.2 MG/DL (2.5-4.9) Iron Level 64 ug/dL (50-175) Total Iron Binding Capacity 182 ug/dL (250-450) L Percent Iron Saturation 35 % (15-50) Unsaturated Iron Binding 118 ug/dL (112-346) Ferritin 1678 NG/ML (8-388) H Gamma Glutamyl Transpeptidase 20 U/L (5-85) Troponin I 0.060 ng/mL (0.000-0.056) C-Reactive Protein, Quantitative 7.1 mg/dL (0.00-0.90) H Pro-B-Type Natriuretic Peptide 240 pg/mL (0-125) H Triglycerides Level 403 MG/DL (30-150) H Cholesterol Level 130 MG/DL (< 200) LDL Cholesterol 51 mg/dL (<100) HDL Cholesterol 25 MG/DL (40-60) L Cholesterol/HDL Ratio 5.2 (3.3-4.4) H Vitamin B12 Level 734 PG/ML (193-986) Folate 33.8 NG/ML (8.6-58.9) Thyroid Stimulating Hormone (TSH) 1.184 uiU/mL (0.358-3.740) Height (Feet): 5 Height (Inches): 5.00 Weight (Pounds): 180 Medications Current Medications Medications (Trade) Dose Ordered Sig/Nancy Route PRN Reason Start Time Stop Time Status Last Admin Dose Admin Acetaminophen (Tylenol) 650 mg Q4H PRN ORAL T>100.5 01/06/18 20:45 02/05/18 20:44 Albuterol/ Ipratropium (Albuterol/ Ipratropium) 3 ml Q4H PRN HHN Shortness of Breath 01/06/18 20:45 01/11/18 20:44 Amlodipine Besylate (Norvasc) 5 mg Q12HR GT 01/07/18 09:00 02/06/18 00:25 01/07/18 09:10 Apixaban (Eliquis) 2.5 mg BID GT 01/07/18 09:00 02/06/18 08:59 Clonidine HCl (Catapres Tab) 0.1 mg Q4H PRN ORAL sbp more than 160 01/06/18 20:45 02/05/18 20:44 Dextrose 1,000 ml @ 100 mls/hr Q10H IV 01/07/18 01:45 02/06/18 01:44 01/07/18 02:33 Dextrose (Dextrose 50%) 25 ml STAT PRN IV Hypoglycemia 01/06/18 20:45 02/05/18 20:44 Dextrose (Dextrose 50%) 50 ml STAT PRN IV Hypoglycemia 01/06/18 20:45 02/05/18 20:44 Ertapenem 0.5 gm/ Sodium Chloride 55 ml @ 110 mls/hr Q24H IVPB 01/07/18 09:00 01/07/18 23:00 01/07/18 09:11 Insulin Aspart (NovoLOG) 6 units NOVOTIAC SUBQ 01/07/18 11:50 02/06/18 11:49 Insulin Aspart (NovoLOG) Please send pen with patient... BEFORE MEALS AND HS SUBQ 01/07/18 00:27 02/06/18 00:26 01/07/18 11:20 Insulin Detemir (Levemir) 12 units BID SUBQ 01/07/18 09:00 02/06/18 08:59 01/07/18 09:12 Levetiracetam (Keppra) 750 mg Q12HR GT 01/07/18 00:26 02/06/18 00:25 01/07/18 09:10 Metoclopramide HCl (Reglan) 5 mg Q6HR GT 01/07/18 06:00 02/06/18 05:59 01/07/18 05:33 Nitroglycerin (Ntg) 0.4 mg Q5M X 3 DOSES PRN SL Prn Chest Pain 01/06/18 20:45 02/05/18 20:44 Ondansetron HCl (Zofran) 4 mg Q6H PRN IVP Nausea & Vomiting 01/06/18 20:45 02/05/18 20:44 Pantoprazole (Protonix) 40 mg EVERY 12 HOURS IVP 01/07/18 02:00 02/06/18 01:59 01/07/18 09:10 Polyethylene Glycol (Miralax) 17 gm HSPRN PRN ORAL Constipation 01/06/18 20:45 02/05/18 20:44 Temazepam (Restoril) 15 mg HSPRN PRN ORAL Insomnia 01/06/18 20:45 01/13/18 20:44 Vancomycin HCl (Vanco rx to dose) 1 ea DAILY PRN MISC Per rx protocol 01/07/18 02:15 02/06/18 02:14 Assessment/Plan Problem List: (1) Sepsis ICD Codes: A41.9 - Sepsis SNOMED: 29821642 (2) ATN (acute tubular necrosis) ICD Codes: N17.0 - Acute kidney failure with tubular necrosis SNOMED: 94808794 (3) Hyperglycemia ICD Codes: R73.9 - Hyperglycemia, unspecified SNOMED: 74869736 (4) G tube feedings ICD Codes: Z93.1 - G tube feedings SNOMED: 698852717 (5) Decubital ulcer ICD Codes: L89.90 - Pressure ulcer of unspecified site, unspecified stage SNOMED: 047513413 (6) Functional quadriplegia ICD Codes: R53.2 - Functional quadriplegia SNOMED: 145289895364136 (7) Seizure disorder ICD Codes: G40.909 - Epilepsy, unspecified, not intractable, without status epilepticus SNOMED: 821151515 (8) Sacral decubitus ulcer, stage III ICD Codes: L89.153 - Pressure ulcer of sacral region, stage 3 SNOMED: 173084789, 362177052 Assessment/Plan iv fluids cobb culture sliding scale diabetic diet f/u electrolytes f/u wbc dvt prophylaxis Saira Lazcano MD Jan 07, 2018 11:56
[2018-01-07 12:00] VITALS: BP 129/48
[2018-01-07] MEDS ORDERED: Nitroglycerin Patch 0.4mg TDERMAL SCH (14:00)
--- NOTE | 2018-01-07 14:05 | Infectious Diseases Prog Note ---
Assessment/Plan Problems: (1) UTI (urinary tract infection) Assessment & Plan: with H/O MDR organisms , continue ertapenem for now pending culture (2) Sepsis Assessment & Plan: due to the above, continue antibiotics pending blood culture (3) Dehydration Assessment & Plan: continue IVF for hydration (4) CKD (chronic kidney disease) Assessment & Plan: worsening due to dehydration, continue IVF , renal is following (5) Diabetes Assessment & Plan: poorly controled , recommend tight glycemic control to keep blood glucose between 100-140 (6) Sacral decubitus ulcer, stage III Assessment & Plan: continue off loading , and local wound care as per hospital protocol Subjective Allergies: Coded Allergies: No Known Allergies (Verified , 01/27/10) Objective Vital Signs Last 24 Hour Vital Signs Date Time Temp Pulse Resp B/P (MAP) Pulse Ox O2 Delivery O2 Flow Rate FiO2 01/07/18 12:00 97.5 73 20 129/48 (75) 97 97.5 01/07/18 09:10 71 123/48 01/07/18 08:20 Room Air 01/07/18 08:00 97.7 71 20 123/48 (73) 99 97.7 01/07/18 07:40 76 01/07/18 04:00 76 01/07/18 04:00 97.2 77 20 122/57 (78) 100 97.2 01/07/18 00:44 90 125/60 01/07/18 00:00 98.2 90 20 125/60 (81) 98 98.2 01/07/18 00:00 84 01/06/18 23:15 99.5 22 140/59 100 Nasal Cannula 2.0 99.5 01/06/18 23:03 Nasal Cannula 2.0 01/06/18 22:57 97.5 88 18 126/58 (80) 96 97.5 01/06/18 22:07 99.5 86 22 140/59 100 Nasal Cannula 2.0 99.5 01/06/18 19:40 98.9 84 28 110/45 100 Nasal Cannula 2.0 98.9 01/06/18 19:34 99.0 91 22 109/71 95 Nasal Cannula 2.0 99.0 Height (Feet): 5 Height (Inches): 5.00 Weight (Pounds): 180 Microbiology Date/Time Source Procedure Growth Status 01/07/18 04:00 Sacral Wound Gram Stain - Final Resulted 01/07/18 04:00 Sacral Wound Wound Culture Pending Resulted Laboratory Tests Test 01/06/18 20:00 01/06/18 21:02 01/06/18 21:55 01/07/18 05:20 White Blood Count 8.9 K/UL (4.8-10.8) 7.0 K/UL (4.8-10.8) Red Blood Count 2.24 M/UL (4.20-5.40) L 1.92 M/UL (4.20-5.40) L Hemoglobin 8.0 G/DL (12.0-16.0) L 6.3 G/DL (12.0-16.0) *L Hematocrit 24.7 % (37.0-47.0) L 20.9 % (37.0-47.0) L Mean Corpuscular Volume 110 FL (80-99) H 109 FL (80-99) H Mean Corpuscular Hemoglobin 35.7 PG (27.0-31.0) H 32.8 PG (27.0-31.0) H Mean Corpuscular Hemoglobin Concent 32.3 G/DL (32.0-36.0) 30.2 G/DL (32.0-36.0) L Red Cell Distribution Width 13.2 % (11.6-14.8) 13.5 % (11.6-14.8) Platelet Count 113 K/UL (150-450) L 90 K/UL (150-450) L Mean Platelet Volume 12.1 FL (6.5-10.1) H 11.5 FL (6.5-10.1) H Neutrophils (%) (Auto) 46.0 % (45.0-75.0) % (45.0-75.0) Lymphocytes (%) (Auto) 46.4 % (20.0-45.0) H % (20.0-45.0) Monocytes (%) (Auto) 5.9 % (1.0-10.0) % (1.0-10.0) Eosinophils (%) (Auto) 1.2 % (0.0-3.0) % (0.0-3.0) Basophils (%) (Auto) 0.6 % (0.0-2.0) % (0.0-2.0) Sodium Level 168 MMOL/L (136-145) *H 168 MMOL/L (136-145) *H Potassium Level 5.1 MMOL/L (3.5-5.1) 4.1 MMOL/L (3.5-5.1) Chloride Level 130 MMOL/L (98-107) H 131 MMOL/L (98-107) H Carbon Dioxide Level 26 MMOL/L (21-32) 25 MMOL/L (21-32) Anion Gap 12 mmol/L (5-15) 11 mmol/L (5-15) Blood Urea Nitrogen 122 mg/dL (7-18) H 102 mg/dL (7-18) H Creatinine 4.6 MG/DL (0.55-1.30) H 4.0 MG/DL (0.55-1.30) H Estimat Glomerular Filtration Rate mL/min (>60) mL/min (>60) Glucose Level 357 MG/DL (74-106) H 339 MG/DL (74-106) H Lactic Acid Level 2.20 mmol/L (0.4-2.0) H 1.50 mmol/L (0.66-2.22) Calcium Level 8.8 MG/DL (8.5-10.1) 8.0 MG/DL (8.5-10.1) L Magnesium Level 4.4 MG/DL (1.8-2.4) H 3.9 MG/DL (1.8-2.4) H Total Bilirubin 0.3 MG/DL (0.2-1.0) 0.4 MG/DL (0.2-1.0) Aspartate Amino Transf (AST/SGOT) 12 U/L (15-37) L 11 U/L (15-37) L Alanine Aminotransferase (ALT/SGPT) 13 U/L (12-78) 13 U/L (12-78) Alkaline Phosphatase 82 U/L (46-116) 66 U/L (46-116) Total Protein 9.4 G/DL (6.4-8.2) H 8.5 G/DL (6.4-8.2) H Albumin 2.7 G/DL (3.4-5.0) L 3.1 G/DL (3.4-5.0) L Globulin 6.7 g/dL 5.4 g/dL Albumin/Globulin Ratio 0.4 (1.0-2.7) L 0.6 (1.0-2.7) L Acetone Level Negative (NEGATIVE) Urine Color Pale yellow Urine Appearance Slightly cloudy Urine pH 8 (4.5-8.0) Urine Specific [place] 1.010 (1.005-1.035) Urine Protein 4+ (NEGATIVE) H Urine Glucose (UA) Negative (NEGATIVE) Urine Ketones Negative (NEGATIVE) Urine Blood 3+ (NEGATIVE) H Urine Nitrite Negative (NEGATIVE) Urine Bilirubin Negative (NEGATIVE) Urine Urobilinogen Normal MG/DL (0.0-1.0) Urine Leukocyte Esterase 3+ (NEGATIVE) H Urine RBC 5-10 /HPF (0 - 2) H Urine WBC 20-30 /HPF (0 - 2) H Urine Squamous Epithelial Cells Few /LPF (NONE/OCC) Urine Amorphous Sediment Moderate /LPF (NONE) H Urine Bacteria Moderate /HPF (NONE) H Differential Total Cells Counted 100 Neutrophils % (Manual) 36 % (45-75) L Lymphocytes % (Manual) 53 % (20-45) H Monocytes % (Manual) 4 % (1-10) Eosinophils % (Manual) 1 % (0-3) Basophils % (Manual) 1 % (0-2) Band Neutrophils 5 % (0-8) Platelet Estimate Decreased L Platelet Morphology Normal Hypochromasia 1+ Macrocytosis 1+ Hemoglobin A1c 6.9 % (4.3-6.0) H Uric Acid 8.1 MG/DL (2.6-7.2) H Phosphorus Level 4.2 MG/DL (2.5-4.9) Iron Level 64 ug/dL (50-175) Total Iron Binding Capacity 182 ug/dL (250-450) L Percent Iron Saturation 35 % (15-50) Unsaturated Iron Binding 118 ug/dL (112-346) Ferritin 1678 NG/ML (8-388) H Gamma Glutamyl Transpeptidase 20 U/L (5-85) Troponin I 0.060 ng/mL (0.000-0.056) C-Reactive Protein, Quantitative 7.1 mg/dL (0.00-0.90) H Pro-B-Type Natriuretic Peptide 240 pg/mL (0-125) H Triglycerides Level 403 MG/DL (30-150) H Cholesterol Level 130 MG/DL (< 200) LDL Cholesterol 51 mg/dL (<100) HDL Cholesterol 25 MG/DL (40-60) L Cholesterol/HDL Ratio 5.2 (3.3-4.4) H Vitamin B12 Level 734 PG/ML (193-986) Folate 33.8 NG/ML (8.6-58.9) Thyroid Stimulating Hormone (TSH) 1.184 uiU/mL (0.358-3.740) Current Medications Medications (Trade) Dose Ordered Sig/Nancy Route PRN Reason Start Time Stop Time Status Last Admin Dose Admin Acetaminophen (Tylenol) 650 mg Q4H PRN ORAL T>100.5 01/06/18 20:45 02/05/18 20:44 Albuterol/ Ipratropium (Albuterol/ Ipratropium) 3 ml Q4H PRN HHN Shortness of Breath 01/06/18 20:45 01/11/18 20:44 Amlodipine Besylate (Norvasc) 5 mg Q12HR GT 01/07/18 09:00 02/06/18 00:25 01/07/18 09:10 Apixaban (Eliquis) 2.5 mg BID GT 01/07/18 09:00 02/06/18 08:59 Clonidine HCl (Catapres Tab) 0.1 mg Q4H PRN ORAL sbp more than 160 01/06/18 20:45 02/05/18 20:44 Dextrose 1,000 ml @ 100 mls/hr Q10H IV 01/07/18 01:45 02/06/18 01:44 01/07/18 02:33 Dextrose (Dextrose 50%) 25 ml STAT PRN IV Hypoglycemia 01/06/18 20:45 02/05/18 20:44 Dextrose (Dextrose 50%) 50 ml STAT PRN IV Hypoglycemia 01/06/18 20:45 02/05/18 20:44 Ertapenem 0.5 gm/ Sodium Chloride 55 ml @ 110 mls/hr Q24H IVPB 01/07/18 09:00 01/07/18 23:00 01/07/18 09:11 Insulin Aspart (NovoLOG) 6 units NOVOTIAC SUBQ 01/07/18 11:50 02/06/18 11:49 01/07/18 12:17 Insulin Aspart (NovoLOG) Please send pen with patient... BEFORE MEALS AND HS SUBQ 01/07/18 00:27 02/06/18 00:26 01/07/18 11:20 Insulin Detemir (Levemir) 12 units BID SUBQ 01/07/18 09:00 02/06/18 08:59 01/07/18 09:12 Levetiracetam (Keppra) 750 mg Q12HR GT 01/07/18 00:26 02/06/18 00:25 01/07/18 09:10 Metoclopramide HCl (Reglan) 5 mg Q6HR GT 01/07/18 06:00 02/06/18 05:59 01/07/18 12:14 Nitroglycerin (Ntg) 0.4 mg Q5M X 3 DOSES PRN SL Prn Chest Pain 01/06/18 20:45 02/05/18 20:44 Nitroglycerin (Ntg) 1 patch Q24H TDERMAL 01/07/18 14:00 02/06/18 13:59 Ondansetron HCl (Zofran) 4 mg Q6H PRN IVP Nausea & Vomiting 01/06/18 20:45 02/05/18 20:44 Pantoprazole (Protonix) 40 mg EVERY 12 HOURS IVP 01/07/18 02:00 02/06/18 01:59 01/07/18 09:10 Polyethylene Glycol (Miralax) 17 gm HSPRN PRN ORAL Constipation 01/06/18 20:45 02/05/18 20:44 Temazepam (Restoril) 15 mg HSPRN PRN ORAL Insomnia 01/06/18 20:45 01/13/18 20:44 Vancomycin HCl (Vanco rx to dose) 1 ea DAILY PRN MISC Per rx protocol 01/07/18 02:15 02/06/18 02:14 Ayala Forman M.D. Jan 07, 2018 14:05
--- NOTE | 2018-01-07 15:18 | Consultation ---
History of Present Illness General Date patient seen: Jan 07, 2018 Chief Complaint: Abnormal Labs Reason for Consultation: sacral decubitus ulcer Present Illness HPI 82 year old female well known to me from prior admissions. Had history of worsening left lower extremity infection and currently s/p left AKA last I had seen her. [facility] for staple removal and was doing well. Recently found to be more lethargic at [facility] and admitted for care and management. During admission noted to have worsening sacral decubitus. Surgery called to evaluate both prior left AKA and worsening sacral ulcer. Patient seen, chart reviewed, patient examined. Allergies: Coded Allergies: No Known Allergies (Verified , 01/27/10) Medication History Scheduled Amino Acids/Protein Hydrolys (Pro-Stat Liquid), 30 ML GT TWICE A DAY, (Reported) Amlodipine Besylate (Norvasc), 5 MG GT Q12HR Ampicillin Trihydrate (Ampicillin Trihydrate), 500 MG GT EVERY 6 HOURS Apixaban (Eliquis), 2.5 MG GT BID Ascorbic Acid* (Vitamin C*), 500 MG GT DAILY, (Reported) Cranberry Fruit (Cranberry), 450 MG GT DAILY, (Reported) Ertapenem (Invanz), 1 GM IM DAILY Famotidine (Famotidine), 20 MG GT BID Insulin Aspart (Novolog Flexpen), 0 UNITS SUBQ EVERY 6 HOURS Insulin Aspart* (Novolog*), 0 SUBQ Q6HR, (Reported) Lansoprazole* (Lansoprazole*), 30 MG GT EVERY 12 HOURS, (Reported) Levetiracetam (Keppra), 750 MG GT Q12HR Metoclopramide HCl (Metoclopramide HCl), 5 MG GT Q6HR Multivitamin Liquid* (Multi-Delyn*), 5 ML GT DAILY, (Reported) Nateglinide (Starlix), 120 MG ORAL Q8HR Tramadol Hcl* (Ultram*), 50 MG GT Q8HR, (Reported) Zinc Sulfate (Zinc Sulfate*), 220 MG GT DAILY, (Reported) Scheduled PRN Acetaminophen (Mapap), 650 MG GT Q4HR PRN for Mild Pain/Temp > 100.5, (Reported) Acetaminophen* (Acetaminophen 325MG Tablet*), 650 MG GT Q4H PRN for T>101, ( Reported) Albuterol Sulfate* (Albuterol Sulfate Hhn*), 2.5 MG HHN Q4H PRN Na Phos,M-B/Na Phos,Di-Ba* (Fleet Enema*), 133 ML RECTAL EVERY OTHER DAY PRN for Constipation, (Reported) Polyethylene Glycol 3350* (Miralax*), 17 GM GT DAILY PRN for Constipation, ( Reported) Patient History Limited by: medical condition History Provided By: Medical Record, PMD Healthcare decision maker Resuscitation status Full Code Advanced Directive on File Yes Past Medical/Surgical History Past Medical/Surgical History: (1) ATN (acute tubular necrosis) (2) Sacral decubitus ulcer, stage II (3) DVT (deep vein thrombosis) in (4) Sepsis (5) Heel ulcer (6) Osteomyelitis of ankle or foot, left, acute (7) Hyperkalemia, diminished renal excretion (8) Dermatitis (9) Bronchitis (10) Vomiting (11) Healthcare-associated pneumonia (12) [id number] (13) Right hemiparesis (14) PEG (percutaneous endoscopic gastrostomy) adjustment/replacement/removal (15) Abnormal LFTs (16) Prolonged PTT (17) Malfunction of percutaneous endoscopic gastrostomy (PEG) tube (18) Pneumonia (19) Hyponatremia (20) Diarrhea (21) Dehydration (22) Aspiration pneumonia (23) UTI (urinary tract infection) (24) Diabetes (25) Dementia (26) Hyperglycemia (27) CKD (chronic kidney disease) (28) Dehydration (29) Hypernatremia (30) Seizure disorder (31) Functional quadriplegia (32) Decubital ulcer (33) G tube feedings (34) Sacral decubitus ulcer, stage III Review of Systems ROS Narrative cannot obtain given patient medical condition Physical Exam General Appearance: lethargic HEENT: mucous membranes moist Neck: normal inspection, limited range of motion Respiratory/Chest: no respiratory distress, no accessory muscle use Cardiovascular/Chest: normal rate Abdomen: normal bowel sounds, soft, no organomegaly, no mass Extremities: other - left AKA Skin Exam: warm/dry Neurologic: unresponsiveness Last 24 Hour Vital Signs Date Time Temp Pulse Resp B/P (MAP) Pulse Ox O2 Delivery O2 Flow Rate FiO2 01/07/18 12:00 97.5 73 20 129/48 (75) 97 97.5 01/07/18 09:10 71 123/48 01/07/18 08:20 Room Air 01/07/18 08:00 97.7 71 20 123/48 (73) 99 97.7 01/07/18 07:40 76 01/07/18 04:00 76 01/07/18 04:00 97.2 77 20 122/57 (78) 100 97.2 01/07/18 00:44 90 125/60 01/07/18 00:00 98.2 90 20 125/60 (81) 98 98.2 01/07/18 00:00 84 01/06/18 23:15 99.5 22 140/59 100 Nasal Cannula 2.0 99.5 01/06/18 23:03 Nasal Cannula 2.0 01/06/18 22:57 97.5 88 18 126/58 (80) 96 97.5 01/06/18 22:07 99.5 86 22 140/59 100 Nasal Cannula 2.0 99.5 01/06/18 19:40 98.9 84 28 110/45 100 Nasal Cannula 2.0 98.9 01/06/18 19:34 99.0 91 22 109/71 95 Nasal Cannula 2.0 99.0 Intake and Output 01/06/18 01/07/18 19:00 07:00 Intake Total 732 ml Output Total 600 ml Balance 132 ml Intake IV Total 732 ml Output Urine Total 600 ml # Voids 1 Laboratory Tests Test 01/06/18 20:00 01/06/18 21:02 01/06/18 21:55 01/07/18 05:20 White Blood Count 8.9 K/UL (4.8-10.8) 7.0 K/UL (4.8-10.8) Red Blood Count 2.24 M/UL (4.20-5.40) L 1.92 M/UL (4.20-5.40) L Hemoglobin 8.0 G/DL (12.0-16.0) L 6.3 G/DL (12.0-16.0) *L Hematocrit 24.7 % (37.0-47.0) L 20.9 % (37.0-47.0) L Mean Corpuscular Volume 110 FL (80-99) H 109 FL (80-99) H Mean Corpuscular Hemoglobin 35.7 PG (27.0-31.0) H 32.8 PG (27.0-31.0) H Mean Corpuscular Hemoglobin Concent 32.3 G/DL (32.0-36.0) 30.2 G/DL (32.0-36.0) L Red Cell Distribution Width 13.2 % (11.6-14.8) 13.5 % (11.6-14.8) Platelet Count 113 K/UL (150-450) L 90 K/UL (150-450) L Mean Platelet Volume 12.1 FL (6.5-10.1) H 11.5 FL (6.5-10.1) H Neutrophils (%) (Auto) 46.0 % (45.0-75.0) % (45.0-75.0) Lymphocytes (%) (Auto) 46.4 % (20.0-45.0) H % (20.0-45.0) Monocytes (%) (Auto) 5.9 % (1.0-10.0) % (1.0-10.0) Eosinophils (%) (Auto) 1.2 % (0.0-3.0) % (0.0-3.0) Basophils (%) (Auto) 0.6 % (0.0-2.0) % (0.0-2.0) Sodium Level 168 MMOL/L (136-145) *H 168 MMOL/L (136-145) *H Potassium Level 5.1 MMOL/L (3.5-5.1) 4.1 MMOL/L (3.5-5.1) Chloride Level 130 MMOL/L (98-107) H 131 MMOL/L (98-107) H Carbon Dioxide Level 26 MMOL/L (21-32) 25 MMOL/L (21-32) Anion Gap 12 mmol/L (5-15) 11 mmol/L (5-15) Blood Urea Nitrogen 122 mg/dL (7-18) H 102 mg/dL (7-18) H Creatinine 4.6 MG/DL (0.55-1.30) H 4.0 MG/DL (0.55-1.30) H Estimat Glomerular Filtration Rate mL/min (>60) mL/min (>60) Glucose Level 357 MG/DL (74-106) H 339 MG/DL (74-106) H Lactic Acid Level 2.20 mmol/L (0.4-2.0) H 1.50 mmol/L (0.66-2.22) Calcium Level 8.8 MG/DL (8.5-10.1) 8.0 MG/DL (8.5-10.1) L Magnesium Level 4.4 MG/DL (1.8-2.4) H 3.9 MG/DL (1.8-2.4) H Total Bilirubin 0.3 MG/DL (0.2-1.0) 0.4 MG/DL (0.2-1.0) Aspartate Amino Transf (AST/SGOT) 12 U/L (15-37) L 11 U/L (15-37) L Alanine Aminotransferase (ALT/SGPT) 13 U/L (12-78) 13 U/L (12-78) Alkaline Phosphatase 82 U/L (46-116) 66 U/L (46-116) Total Protein 9.4 G/DL (6.4-8.2) H 8.5 G/DL (6.4-8.2) H Albumin 2.7 G/DL (3.4-5.0) L 3.1 G/DL (3.4-5.0) L Globulin 6.7 g/dL 5.4 g/dL Albumin/Globulin Ratio 0.4 (1.0-2.7) L 0.6 (1.0-2.7) L Acetone Level Negative (NEGATIVE) Urine Color Pale yellow Urine Appearance Slightly cloudy Urine pH 8 (4.5-8.0) Urine Specific [place] 1.010 (1.005-1.035) Urine Protein 4+ (NEGATIVE) H Urine Glucose (UA) Negative (NEGATIVE) Urine Ketones Negative (NEGATIVE) Urine Blood 3+ (NEGATIVE) H Urine Nitrite Negative (NEGATIVE) Urine Bilirubin Negative (NEGATIVE) Urine Urobilinogen Normal MG/DL (0.0-1.0) Urine Leukocyte Esterase 3+ (NEGATIVE) H Urine RBC 5-10 /HPF (0 - 2) H Urine WBC 20-30 /HPF (0 - 2) H Urine Squamous Epithelial Cells Few /LPF (NONE/OCC) Urine Amorphous Sediment Moderate /LPF (NONE) H Urine Bacteria Moderate /HPF (NONE) H Differential Total Cells Counted 100 Neutrophils % (Manual) 36 % (45-75) L Lymphocytes % (Manual) 53 % (20-45) H Monocytes % (Manual) 4 % (1-10) Eosinophils % (Manual) 1 % (0-3) Basophils % (Manual) 1 % (0-2) Band Neutrophils 5 % (0-8) Platelet Estimate Decreased L Platelet Morphology Normal Hypochromasia 1+ Macrocytosis 1+ Hemoglobin A1c 6.9 % (4.3-6.0) H Uric Acid 8.1 MG/DL (2.6-7.2) H Phosphorus Level 4.2 MG/DL (2.5-4.9) Iron Level 64 ug/dL (50-175) Total Iron Binding Capacity 182 ug/dL (250-450) L Percent Iron Saturation 35 % (15-50) Unsaturated Iron Binding 118 ug/dL (112-346) Ferritin 1678 NG/ML (8-388) H Gamma Glutamyl Transpeptidase 20 U/L (5-85) Troponin I 0.060 ng/mL (0.000-0.056) C-Reactive Protein, Quantitative 7.1 mg/dL (0.00-0.90) H Pro-B-Type Natriuretic Peptide 240 pg/mL (0-125) H Triglycerides Level 403 MG/DL (30-150) H Cholesterol Level 130 MG/DL (< 200) LDL Cholesterol 51 mg/dL (<100) HDL Cholesterol 25 MG/DL (40-60) L Cholesterol/HDL Ratio 5.2 (3.3-4.4) H Vitamin B12 Level 734 PG/ML (193-986) Folate 33.8 NG/ML (8.6-58.9) Thyroid Stimulating Hormone (TSH) 1.184 uiU/mL (0.358-3.740) Microbiology Date/Time Source Procedure Growth Status 01/07/18 04:00 Sacral Wound Gram Stain - Final Resulted 01/07/18 04:00 Sacral Wound Wound Culture Pending Resulted Height (Feet): 5 Height (Inches): 5.00 Weight (Pounds): 180 Medications Current Medications Medications (Trade) Dose Ordered Sig/Nancy Route PRN Reason Start Time Stop Time Status Last Admin Dose Admin Acetaminophen (Tylenol) 650 mg Q4H PRN ORAL T>100.5 01/06/18 20:45 02/05/18 20:44 Albuterol/ Ipratropium (Albuterol/ Ipratropium) 3 ml Q4H PRN HHN Shortness of Breath 01/06/18 20:45 01/11/18 20:44 Amlodipine Besylate (Norvasc) 5 mg Q12HR GT 01/07/18 09:00 02/06/18 00:25 01/07/18 09:10 Apixaban (Eliquis) 2.5 mg BID GT 01/07/18 09:00 02/06/18 08:59 Clonidine HCl (Catapres Tab) 0.1 mg Q4H PRN ORAL sbp more than 160 01/06/18 20:45 02/05/18 20:44 Dextrose 1,000 ml @ 100 mls/hr Q10H IV 01/07/18 01:45 02/06/18 01:44 01/07/18 02:33 Dextrose (Dextrose 50%) 25 ml STAT PRN IV Hypoglycemia 01/06/18 20:45 02/05/18 20:44 Dextrose (Dextrose 50%) 50 ml STAT PRN IV Hypoglycemia 01/06/18 20:45 02/05/18 20:44 Ertapenem 0.5 gm/ Sodium Chloride 55 ml @ 110 mls/hr Q24H IVPB 01/07/18 09:00 01/11/18 10:00 01/07/18 09:11 Insulin Aspart (NovoLOG) 6 units NOVOTIAC SUBQ 01/07/18 11:50 02/06/18 11:49 01/07/18 12:17 Insulin Aspart (NovoLOG) Please send pen with patient... BEFORE MEALS AND HS SUBQ 01/07/18 00:27 02/06/18 00:26 01/07/18 11:20 Insulin Detemir (Levemir) 12 units BID SUBQ 01/07/18 09:00 02/06/18 08:59 01/07/18 09:12 Levetiracetam (Keppra) 750 mg Q12HR GT 01/07/18 00:26 02/06/18 00:25 01/07/18 09:10 Metoclopramide HCl (Reglan) 5 mg Q6HR GT 01/07/18 06:00 02/06/18 05:59 01/07/18 12:14 Nitroglycerin (Ntg) 0.4 mg Q5M X 3 DOSES PRN SL Prn Chest Pain 01/06/18 20:45 02/05/18 20:44 Nitroglycerin (Ntg) 1 patch Q24H TDERMAL 01/07/18 14:00 02/06/18 13:59 Ondansetron HCl (Zofran) 4 mg Q6H PRN IVP Nausea & Vomiting 01/06/18 20:45 02/05/18 20:44 Pantoprazole (Protonix) 40 mg EVERY 12 HOURS IVP 01/07/18 02:00 02/06/18 01:59 01/07/18 09:10 Polyethylene Glycol (Miralax) 17 gm HSPRN PRN ORAL Constipation 01/06/18 20:45 02/05/18 20:44 Temazepam (Restoril) 15 mg HSPRN PRN ORAL Insomnia 01/06/18 20:45 01/13/18 20:44 Vancomycin HCl (Vanco rx to dose) 1 ea DAILY PRN MISC Per rx protocol 01/07/18 02:15 02/06/18 02:14 Assessment/Plan Problem List: (1) Sepsis ICD Codes: A41.9 - Sepsis SNOMED: 33006831 (2) Sacral decubitus ulcer, stage III Assessment & Plan: Stage III sacral full thickness pressure injury to sacrum (L )8cm x (W)6.2cm .full thickness injury at coccygeal area with approx 10% slough centrally with pink epithelialized borders.No odor or exudate noted. Full thickness ulcer noted to lateral R tibia(L)2cm x (W)1.4cm .Wound bed with approx 20% mixed slough /necrosis otherwise red with macerated borders .Scant non-odorous serous exudate noted to drsg upon removal. Periwound skin is dry. No edema noted. R heel soft but blanchable. Tx Plan: Cleanse Sacral wound with Saline ;Apply Triad Paste to sacral wound.Cavilon wipe Periwound and cover with Biatain drsg every other day and prn. Cleanse wound lateral RLE with saline.Apply Silvasorb Gel. Cavilon wipe to borders and cover with Biatain drsg every other day and prn. Recommend Surface support overlay on bed. Reposition at minimum every 2hours as tolerated. Off-load R heel with pillow Patient presented with above wound. Was seen as stage II prior and currently with stage III in small portion of wound. ICD Codes: L89.153 - Pressure ulcer of sacral region, stage 3 SNOMED: 340032374, [id number] Taco Carter Jan 07, 2018 15:18
[2018-01-07 16:00] VITALS: BP 120/47
[2018-01-07 20:00] VITALS: BP 124/75
[2018-01-07] MEDS ORDERED: Miralax 17gm pkt ORAL PRN (21:00)
[2018-01-07] MEDS ORDERED: Albuterol/Ipratropium 3ml neb HHN PRN (21:00)
[2018-01-07] MEDS ORDERED: Nitroglycerin Subl 0.4mg tab SL PRN (21:00)
--- NOTE | 2018-01-07 21:15 | History and Physical Report ---
DATE OF ADMISSION: 01/06/2018 HISTORY OF PRESENT ILLNESS: The patient is an 82-year-old female, who is a resident of [facility]. I received a call yesterday that the patient's blood sugar is over 400. The patient was summoned to come to the emergency room here at [facility]. After evaluation by the ER physician, the patient was found to have acute renal failure, evidence of sepsis, anemia, diabetes mellitus, out of control, and electrolyte imbalances, so the patient was admitted for further management. 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 The patient also has history of pneumonia, seizure disorders, dementia, GT tube, and functional quadriplegia. PHYSICAL EXAMINATION: GENERAL: The patient is not verbal, is somewhat lethargic. VITAL SIGNS: Temperature is 97.5, pulse rate 73, blood pressure 129/48, and pulse oximetry is 97%. The patient is nonverbal. Opens eyes to stimuli. HEENT: Head is normocephalic. NECK: Rigid to all directions. LUNGS: Poor inspiratory effort. Decreased breath sounds over the bases. HEART: Appears to be regular. ABDOMEN: Soft. GT tube in place. EXTREMITIES: Lower extremities, left above knee amputee stump is clean. Right leg, no edema. LABORATORY RESULTS: Reviewing the laboratory results indicates that the patient had a hemoglobin of 8 on admission, today 6.3. Also had a creatinine of 4.6, which today is down to 4, serum sodium of 168, that is unchanged, also the albumin of 2.7 on admission. A chest x-ray is essentially nonconclusive for any particular pathology. IMPRESSION: 1. Acute renal failure. 2. Possible sepsis. 3. Anemia. 4. Diabetes mellitus, out of control. 5. Functional quadriplegia. 6. Dementia. 7. 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 PLAN: The patient is already having blood sugar management. The patient is receiving IV fluid. The Eliquis will be continued. Free water administration is implemented. Keppra for seizure disorders. Nitropaste transfusion for anemia and antibiotic is in process. According to how the patient's condition evolves, we will make the proper changes in our future management. Estevan Elias Orozco DR: PRISCILA JOB#: [id number] CC:
--- NOTE | 2018-01-07 21:15 | Consultation ---
DATE OF CONSULTATION: 01/07/2018 INFECTIOUS DISEASE CONSULTATION CONSULTING PHYSICIAN: Ayala Forman M.D. REQUESTING PHYSICIAN: Estevan Orozco M.D. REASON FOR CONSULTATION: UTI, sepsis with history of multidrug-resistant organism, recommendation for antibiotics treatment. HISTORY OF PRESENT ILLNESS: The patient is an 82-year-old female, well known to me from previous admission, who was sent to [facility] from her convalescent home for uncontrolled diabetes with elevated blood sugar in the range of 400 with electrolyte abnormalities. The patient was found to have fever in the emergency room and mildly hypotensive. She also had urinary tract infection with possible sepsis, so she was started on vancomycin and ertapenem by the admitting physician and Infectious Disease consultation was requested for further evaluation and management. As of note, the patient is poor historian, could not provide any history. History was mainly obtained from the medical record and nursing staff. REVIEW OF SYSTEMS: Unable to obtain. The patient is poor historian. PAST MEDICAL HISTORY: Significant for diabetes, hypertension, COPD, CVA, seizure, left foot osteomyelitis, status post [id number] amputation. PAST SURGICAL HISTORY: She had PEG tube placement and left [id number] amputation. SOCIAL HISTORY: The patient lives at [facility]. No recent drugs, tobacco, or alcohol. FAMILY HISTORY: Unable to obtain. ALLERGIES: She has no known drug allergy. MEDICATIONS: The patient was started on vancomycin and ertapenem. For the rest of her medications, please refer to MAR. LABORATORY DATA: Laboratories showed white count of 7000, hemoglobin of 6.3, platelet count of 90,000. BUN of 102, creatinine of 4, glucose of 339. Lactic acid of 2.2. Urinalysis showed +3 leukocyte esterase, negative nitrite, wbc 20-30, and moderate amount of bacteria in the urine. IMAGING: Chest x-ray showed no acute infiltrate or effusion. PHYSICAL EXAMINATION: VITAL SIGNS: Temperature 97.5, pulse 73, respirations 20, blood pressure 129/48, and saturation 97% on room air. GENERAL: An elderly female, lying in bed, obtunded, unresponsive, not in acute distress. HEENT: Normocephalic and atraumatic. Unable to assess pupil reactivity. The patient does not follow command. Tongue is sticking out and dry. No ulceration. NECK: Supple. No lymphadenopathy. CARDIOVASCULAR: Regular rate and rhythm. No murmur or gallop. LUNGS: She had diminished breathing sounds at the bases. Normal breathing efforts. ABDOMEN: Soft, obese, distended. PEG tube site looks okay with no evidence of erythema or drainage. EXTREMITIES: She had right leg pressure wounds on the calf and left [id number] amputation surgical scar dry and clean. SKIN: She had sacral pressure wound, stage II, not infected no drainage or foul smell. ASSESSMENT AND RECOMMENDATION: 1. UTI with history of multidrug-resistant organism in the past including Proteus mirabilis. I agree on ertapenem to be continued for now pending urine culture result. 2. Sepsis due to the above. Continue antibiotics pending blood culture. 3. Dehydration with electrolyte abnormalities. Continue IV fluid for hydration. Monitor electrolytes closely. 4. Chronic kidney disease with worsening at this admission due to dehydration and possible sepsis. Continue fluid for hydration. The patient may need hemodialysis. Nephrology team is following. 5. Diabetes, poorly controlled. Recommend tight glycemic control to keep blood glucose between 100 to 140. 6. Sacral decubitus ulcer, stage II. Continue offloading and local wound care as per hospital protocol. Thank you for the consult. ID will continue to follow. yAala Forman M.D. DR: Pierce JOB#: [id number] CC:
--- NOTE | 2018-01-07 23:30 | Consultation ---
DATE OF CONSULTATION: 01/07/2018 ENDOCRINOLOGY CONSULTATION CONSULTING PHYSICIAN: Kodak Villeda M.D. REFERRING PHYSICIAN: Estevan Orozco M.D. REASON FOR CONSULTATION: Diabetes management. HISTORY OF PRESENT ILLNESS: The patient is an 82-year-old female with diabetes. The patient is nonverbal at the baseline. Therefore, history is obtained from the review of the chart and discussion with the nurse. She was brought to the emergency room with an Accu-Chek of 400, was not given insulin prior to arrival. No signs of distress. She is afebrile and no other aggravating factors. I was called to manage diabetes. PAST MEDICAL HISTORY: 1. Type 2 diabetes. 2. Hypertension. 3. COPD. 4. Seizure. PAST SURGICAL HISTORY: None. FAMILY HISTORY: Noncontributory. SOCIAL HISTORY: Lives in a [facility] facility. No active smoking, alcohol, or drug use. ALLERGIES TO MEDICATIONS: None. MEDICATIONS: Reviewed and reconciled. REVIEW OF SYSTEMS: Unobtainable. The patient is nonverbal. PHYSICAL EXAMINATION: GENERAL: The patient is awake. VITAL SIGNS: Blood pressure is 110 /57, heart rate of 77, temperature 97.2, and respiratory rate of 20. HEENT: Pupils react to light. Sclerae is anicteric. NECK: No JVD. HEART: Regular. LUNGS: Clear. ABDOMEN: Positive bowel sounds. EXTREMITIES: Positive for edema. LABORATORY DATA: WBC 8.9, hemoglobin 8, hematocrit 24.7, and platelets of 113. Sodium 168, potassium 4.1, chloride 131, bicarb 25, BUN 102, creatinine 4, glucose 339, and A1c is pending. Lactic acid 2.2 elevated. TSH 1.1. On presentation, glucose was 357 with anion gap of 12. IMPRESSION: 1. Diabetes, out of control without any evidence of ketoacidosis. 2. Renal failure. 3. Nonverbal. PLAN: 1. Discontinue Starlix. 2. Start Levemir 12 units b.i.d. 3. Start NovoLog 6 units before each meal. 4. NovoLog sliding scale before meals and at bedtime. 5. Further adjustment according to blood glucose values. Thank you, Dr. Orozco, for the courtesy of this consultation. Kodak Villeda M.D. DR: KELLY JOB#: [id number] CC: NIMCO
[2018-01-08] VITALS: BP 127/44
[2018-01-08] MEDS: Metoclopramide 10mg/10ml Liq GT SCH ×5 (00:07→23:40)
[2018-01-08 04:00] VITALS: BP 104/54
[2018-01-08] MEDS: NovoLOG Insulin Flexpen SUBQ SCH ×7 (05:39→21:18)
[2018-01-08 06:25] LABS: HEMATOCRIT 29.4 % (37.0-47.0); HEMOGLOBIN 9.5 G/DL (12.0-16.0); MEAN CORPUSCULAR VOLUME 97 FL (80-99); PLATELET COUNT 90 K/UL (150-450); RED BLOOD COUNT 3.03 M/UL (4.20-5.40); RED CELL DISTRIBUTION WIDTH 17.7 % (11.6-14.8); WHITE BLOOD COUNT 6.8 K/UL (4.8-10.8)
[2018-01-08 07:30] LABS: ALANINE AMINOTRANSFERASE 11 U/L (12-78); ALBUMIN 2.8 G/DL (3.4-5.0); ALBUMIN/GLOBULIN RATIO 0.6 (1.0-2.7); ALKALINE PHOSPHATASE 74 U/L (46-116); ANION GAP 13 mmol/L (5-15); ASPARTATE AMINO TRANSFERASE 26 U/L (15-37); BILIRUBIN,TOTAL 0.4 MG/DL (0.2-1.0); BLOOD UREA NITROGEN 82 mg/dL (7-18); CALCIUM 7.5 MG/DL (8.5-10.1); CARBON DIOXIDE 24 MMOL/L (21-32); CHLORIDE 127 MMOL/L (98-107); CREATININE 3.1 MG/DL (0.55-1.30); PHOSPHORUS 4.3 MG/DL (2.5-4.9); POTASSIUM 3.8 MMOL/L (3.5-5.1)
[2018-01-08 07:38] LABS: SODIUM 165 MMOL/L (136-145)
[2018-01-08 08:00] VITALS: BP 119/65
[2018-01-08] MEDS ORDERED: D5W 275ml ONE (10:13)
[2018-01-08] MEDS: Eliquis 2.5mg tablet GT SCH ×2 (10:29→18:03)
[2018-01-08] MEDS: levETIRAcetam 500mg/5ml Liquid GT SCH ×2 (10:30→20:40)
[2018-01-08] MEDS: Pantoprazole Inj IVP SCH ×2 (10:30→20:41)
[2018-01-08] MEDS: Levemir Flexpen SUBQ SCH ×2 (10:31→18:04)
[2018-01-08] MEDS: Ertapenem 0.5 GM in NS 55 ML IVPB SCH (10:45)
--- NOTE | 2018-01-08 10:59 | General Progress Note ---
Assessment/Plan Problem List: (1) ATN (acute tubular necrosis) ICD Codes: N17.0 - Acute kidney failure with tubular necrosis SNOMED: 89863444 (2) G tube feedings ICD Codes: Z93.1 - G tube feedings SNOMED: 956133410 (3) Dehydration ICD Codes: E86.0 - Dehydration SNOMED: 15470978 (4) Hyperglycemia ICD Codes: R73.9 - Hyperglycemia, unspecified SNOMED: 63257064 (5) Dementia ICD Codes: F03.90 - Dementia SNOMED: 28101347 (6) UTI (urinary tract infection) (7) Anemia ICD Codes: D64.9 - Anemia, unspecified SNOMED: 322108180 (8) Functional quadriplegia ICD Codes: R53.2 - Functional quadriplegia SNOMED: 048058546439119 Status: stable Status Narrative 1. Acute renal failure. Cr lower 2. Possible sepsis. 3. Anemia. 4. Diabetes mellitus, out of control. BS improved 5. Functional quadriplegia. 6. Dementia. 7. 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 Assessment/Plan antibiotics- transfused GT feeding BS and BP check and medication adjustment per consultants Subjective Allergies: Coded Allergies: No Known Allergies (Verified , 01/27/10) Objective Last 24 Hour Vital Signs Date Time Temp Pulse Resp B/P (MAP) Pulse Ox O2 Delivery O2 Flow Rate FiO2 01/08/18 10:30 68 119/65 01/08/18 09:00 Nasal Cannula 2.0 01/08/18 08:00 98.0 68 18 119/65 (83) 98 98.0 01/08/18 04:00 98.1 76 18 104/54 (71) 98 98.1 01/08/18 00:00 98.1 80 17 127/44 (71) 98 98.1 01/07/18 21:56 74 134/58 01/07/18 21:00 Nasal Cannula 2.0 01/07/18 20:00 97.5 72 20 124/75 (91) 100 97.5 01/07/18 16:00 97.5 69 18 120/47 (71) 100 97.5 01/07/18 15:33 129/48 01/07/18 12:00 97.5 73 20 129/48 (75) 97 97.5 01/07/18 11:43 70 Intake and Output 01/07/18 01/08/18 19:00 07:00 Intake Total 1380 ml 700 ml Output Total 600 ml 500 ml Balance 780 ml 200 ml Intake Free Water 60 ml 150 ml IV Total 100 ml Tube Feeding 495 ml 450 ml Blood Product 825 ml Output Urine Total 600 ml 500 ml Laboratory Tests 01/08/18 05:40: White Blood Count 6.8, Red Blood Count 3.03L, Hemoglobin 9.5#L, Hematocrit 29.4# L, Mean Corpuscular Volume 97#, Mean Corpuscular Hemoglobin 31.4H, Mean Corpuscular Hemoglobin Concent 32.4, Red Cell Distribution Width 17.7H, Platelet Count 90L, Mean Platelet Volume 12.0H, Neutrophils (%) (Auto) , Lymphocytes (%) (Auto) , Monocytes (%) (Auto) , Eosinophils (%) (Auto) , Basophils (%) (Auto) , Differential Total Cells Counted 100, Neutrophils % ( Manual) 58, Lymphocytes % (Manual) 34, Monocytes % (Manual) 4, Eosinophils % ( Manual) 2, Basophils % (Manual) 0, Band Neutrophils 2, Platelet Estimate DecreasedL, Platelet Morphology Normal, Hypochromasia 2+, Spherocytes 1+, Sodium Level 165*H, Potassium Level 3.8, Chloride Level 127H, Carbon Dioxide Level 24, Anion Gap 13, Blood Urea Nitrogen 82H, Creatinine 3.1H, Estimat Glomerular Filtration Rate , Glucose Level 267H, Calcium Level 7.5L, Phosphorus Level 4.3, Magnesium Level 3.3H, Total Bilirubin 0.4, Aspartate Amino Transf ( AST/SGOT) 26, Alanine Aminotransferase (ALT/SGPT) 11L, Alkaline Phosphatase 74, Troponin I 0.059H, Pro-B-Type Natriuretic Peptide 831H, Total Protein 7.7, Albumin 2.8L, Globulin 4.9, Albumin/Globulin Ratio 0.6L Height (Feet): 5 Height (Inches): 5.00 Weight (Pounds): 181 Estevan Orozco MD Jan 08, 2018 10:59
[2018-01-08 12:00] VITALS: BP 129/65
--- NOTE | 2018-01-08 13:55 | Pulmonology Progress Note ---
Assessment/Plan Problems: (1) Sepsis (2) ATN (acute tubular necrosis) (3) Hyperglycemia (4) G tube feedings (5) Decubital ulcer (6) Functional quadriplegia (7) Seizure disorder (8) Sacral decubitus ulcer, stage III Assessment/Plan cobb cultures iv fluids check electrolytes sliding scale diabetic diet f/u ID and endo recommendations Subjective ROS Limited/Unobtainable: Yes Allergies: Coded Allergies: No Known Allergies (Verified , 01/27/10) Objective Last 24 Hour Vital Signs Date Time Temp Pulse Resp B/P (MAP) Pulse Ox O2 Delivery O2 Flow Rate FiO2 01/08/18 12:19 68 18 Nasal Cannula 2.0 28 01/08/18 12:00 98.3 77 20 129/65 (86) 100 98.3 01/08/18 10:30 68 119/65 01/08/18 09:00 Nasal Cannula 2.0 01/08/18 08:00 98.0 68 18 119/65 (83) 98 98.0 01/08/18 04:00 98.1 76 18 104/54 (71) 98 98.1 01/08/18 00:00 98.1 80 17 127/44 (71) 98 98.1 01/07/18 21:56 74 134/58 01/07/18 21:00 Nasal Cannula 2.0 01/07/18 20:00 97.5 72 20 124/75 (91) 100 97.5 01/07/18 16:00 97.5 69 18 120/47 (71) 100 97.5 01/07/18 15:33 129/48 Intake and Output 01/07/18 01/08/18 19:00 07:00 Intake Total 1380 ml 700 ml Output Total 600 ml 500 ml Balance 780 ml 200 ml Intake Free Water 60 ml 150 ml IV Total 100 ml Tube Feeding 495 ml 450 ml Blood Product 825 ml Output Urine Total 600 ml 500 ml General Appearance: WD/WN HEENT: normocephalic, atraumatic Respiratory/Chest: chest wall non-tender, lungs clear Breasts: no masses Cardiovascular: normal peripheral pulses Abdomen: normal bowel sounds, soft, non tender Extremities: no cyanosis Skin: no lesions Microbiology Date/Time Source Procedure Growth Status 01/06/18 20:00 Blood Blood Culture - Preliminary NO GROWTH AFTER 24 HOURS Resulted 01/06/18 19:45 Blood Blood Culture - Preliminary NO GROWTH AFTER 24 HOURS Resulted 01/06/18 21:02 Urine,Clean Catch Urine Culture - Preliminary Mixed Urogenital Contaminants Resulted 01/07/18 04:00 Sacral Wound Gram Stain - Final Resulted 01/07/18 04:00 Wound Culture - Preliminary Gram Negative Bacillus 1 Resulted Laboratory Tests 01/08/18 05:40: White Blood Count 6.8, Red Blood Count 3.03L, Hemoglobin 9.5#L, Hematocrit 29.4# L, Mean Corpuscular Volume 97#, Mean Corpuscular Hemoglobin 31.4H, Mean Corpuscular Hemoglobin Concent 32.4, Red Cell Distribution Width 17.7H, Platelet Count 90L, Mean Platelet Volume 12.0H, Neutrophils (%) (Auto) , Lymphocytes (%) (Auto) , Monocytes (%) (Auto) , Eosinophils (%) (Auto) , Basophils (%) (Auto) , Differential Total Cells Counted 100, Neutrophils % ( Manual) 58, Lymphocytes % (Manual) 34, Monocytes % (Manual) 4, Eosinophils % ( Manual) 2, Basophils % (Manual) 0, Band Neutrophils 2, Platelet Estimate DecreasedL, Platelet Morphology Normal, Hypochromasia 2+, Spherocytes 1+, Sodium Level 165*H, Potassium Level 3.8, Chloride Level 127H, Carbon Dioxide Level 24, Anion Gap 13, Blood Urea Nitrogen 82H, Creatinine 3.1H, Estimat Glomerular Filtration Rate , Glucose Level 267H, Calcium Level 7.5L, Phosphorus Level 4.3, Magnesium Level 3.3H, Total Bilirubin 0.4, Aspartate Amino Transf ( AST/SGOT) 26, Alanine Aminotransferase (ALT/SGPT) 11L, Alkaline Phosphatase 74, Troponin I 0.059H, Pro-B-Type Natriuretic Peptide 831H, Total Protein 7.7, Albumin 2.8L, Globulin 4.9, Albumin/Globulin Ratio 0.6L Current Medications Medications (Trade) Dose Ordered Sig/Nancy Route PRN Reason Start Time Stop Time Status Last Admin Dose Admin Acetaminophen (Tylenol) 650 mg Q4H PRN ORAL T>100.5 01/07/18 21:00 02/06/18 20:59 Albuterol/ Ipratropium (Albuterol/ Ipratropium) 3 ml Q4H PRN HHN Shortness of Breath 01/07/18 21:00 01/12/18 20:59 Amlodipine Besylate (Norvasc) 5 mg Q12HR GT 01/07/18 21:00 02/06/18 00:25 01/08/18 10:30 Apixaban (Eliquis) 2.5 mg BID GT 01/08/18 09:00 02/06/18 08:59 01/08/18 10:29 Aspirin (ASA) 81 mg DAILY NG 01/09/18 09:00 02/08/18 08:59 Clonidine HCl (Catapres Tab) 0.1 mg Q4H PRN ORAL sbp more than 160 01/07/18 21:00 02/06/18 20:59 Dextrose 1,000 ml @ 100 mls/hr Q10H IV 01/07/18 21:00 02/06/18 01:44 01/08/18 05:04 Dextrose (Dextrose 50%) 25 ml STAT PRN IV Hypoglycemia 01/07/18 21:00 02/06/18 20:59 Dextrose (Dextrose 50%) 50 ml STAT PRN IV Hypoglycemia 01/07/18 21:00 02/06/18 20:59 Epoetin Wallace (Procrit (for non ESRD use)) 10,000 units MON-WED-FRI SUBQ 01/08/18 21:00 02/07/18 20:59 Ertapenem 0.5 gm/ Sodium Chloride 55 ml @ 110 mls/hr Q24H IVPB 01/08/18 09:00 01/11/18 10:00 01/08/18 10:45 Insulin Aspart (NovoLOG) 6 units NOVOTIAC SUBQ 01/08/18 06:30 02/06/18 11:49 01/08/18 12:32 Insulin Aspart (NovoLOG) Please send pen with patient... BEFORE MEALS AND HS SUBQ 01/07/18 21:00 02/06/18 00:26 01/08/18 12:35 Insulin Detemir (Levemir) 12 units BID SUBQ 01/07/18 21:00 02/06/18 08:59 01/08/18 10:31 Levetiracetam (Keppra) 750 mg Q12HR GT 01/07/18 21:00 02/06/18 00:25 01/08/18 10:30 Metoclopramide HCl (Reglan) 5 mg Q6HR GT 01/08/18 00:00 02/06/18 05:59 01/08/18 12:36 Nitroglycerin (Ntg) 0.4 mg Q5M X 3 DOSES PRN SL Prn Chest Pain 01/07/18 21:00 02/05/18 20:44 Nitroglycerin (Ntg) 1 patch Q24H TDERMAL 01/08/18 14:00 02/06/18 13:59 Ondansetron HCl (Zofran) 4 mg Q6H PRN IVP Nausea & Vomiting 01/07/18 21:00 02/06/18 20:59 Pantoprazole (Protonix) 40 mg EVERY 12 HOURS IVP 01/07/18 21:00 02/06/18 01:59 01/08/18 10:30 Polyethylene Glycol (Miralax) 17 gm HSPRN PRN ORAL Constipation 01/07/18 21:00 02/06/18 20:59 Temazepam (Restoril) 15 mg HSPRN PRN ORAL Insomnia 01/07/18 21:00 01/14/18 20:59 Vancomycin HCl (Vanco rx to dose) 1 ea DAILY PRN MISC Per rx protocol 01/08/18 09:00 02/06/18 02:14 Saira Lazcano MD Jan 08, 2018 13:54
[2018-01-08] MEDS: Nitroglycerin Patch 0.4mg TDERMAL SCH (14:32)
[2018-01-08 16:00] VITALS: BP 142/70
--- NOTE | 2018-01-08 16:00 | Cardiology Report ---
APPROVED REPORT EKG Measurement Heart [id number] Normal sinus rhythm Minimal voltage criteria for LVH, may be normal variant Nonspecific T wave abnormality Abnormal ECG
--- NOTE | 2018-01-08 16:58 | Infectious Diseases Prog Note ---
Assessment/Plan Problems: (1) UTI (urinary tract infection) Assessment & Plan: with H/O MDR organisms , now grew contaminants , continue ertapenem for now pending sacral wound culture (2) Sepsis Assessment & Plan: due to the above, continue antibiotics pending blood culture (3) Dehydration Assessment & Plan: continue IVF for hydration (4) CKD (chronic kidney disease) Assessment & Plan: worsening due to dehydration, continue IVF , renal is following (5) Diabetes Assessment & Plan: poorly controled , recommend tight glycemic control to keep blood glucose between 100-140 (6) Sacral decubitus ulcer, stage III Assessment & Plan: continue off loading , and local wound care as per hospital protocol Subjective ROS Limited/Unobtainable: Yes Allergies: Coded Allergies: No Known Allergies (Verified , 01/27/10) Subjective she was lying in bed , comfortable, unresponsive, afebrile , NAD Objective Vital Signs Last 24 Hour Vital Signs Date Time Temp Pulse Resp B/P (MAP) Pulse Ox O2 Delivery O2 Flow Rate FiO2 01/08/18 16:00 97.9 75 19 142/70 (94) 100 97.9 01/08/18 14:32 129/65 01/08/18 12:19 68 18 Nasal Cannula 2.0 28 01/08/18 12:00 98.3 77 20 129/65 (86) 100 98.3 01/08/18 10:30 68 119/65 01/08/18 09:00 Nasal Cannula 2.0 01/08/18 08:00 98.0 68 18 119/65 (83) 98 98.0 01/08/18 04:00 98.1 76 18 104/54 (71) 98 98.1 01/08/18 00:00 98.1 80 17 127/44 (71) 98 98.1 01/07/18 21:56 74 134/58 01/07/18 21:00 Nasal Cannula 2.0 01/07/18 20:00 97.5 72 20 124/75 (91) 100 97.5 Height (Feet): 5 Height (Inches): 5.00 Weight (Pounds): 181 General Appearance: WD/WN, no acute distress, other - tongue is sticking out of her mouth with sore HEENT: normocephalic, atraumatic, anicteric, mucous membranes moist, PERRL Respiratory/Chest: chest wall non-tender, lungs clear, normal breath sounds, no respiratory distress, no accessory muscle use Cardiovascular: normal peripheral pulses, normal rate, regular rhythm, no gallop/murmur, no JVD Abdomen: normal bowel sounds, soft, non tender, no organomegaly, non distended , no mass, no scars Extremities: no cyanosis, no clubbing Skin: no rash, no lesions, ulcers - sacral pressure wound and right leg pressure wound Neurologic/Psychiatric: unresponsiveness Lymphatic: no neck adenopathy, no groin adenopathy Microbiology Date/Time Source Procedure Growth Status 01/06/18 20:00 Blood Blood Culture - Preliminary NO GROWTH AFTER 24 HOURS Resulted 01/06/18 19:45 Blood Blood Culture - Preliminary NO GROWTH AFTER 24 HOURS Resulted 01/06/18 21:02 Urine,Clean Catch Urine Culture - Preliminary Mixed Urogenital Contaminants Resulted 01/07/18 04:00 Sacral Wound Gram Stain - Final Resulted 01/07/18 04:00 Wound Culture - Preliminary Gram Negative Bacillus 1 Resulted Laboratory Tests Test 01/08/18 05:40 White Blood Count 6.8 K/UL (4.8-10.8) Red Blood Count 3.03 M/UL (4.20-5.40) L Hemoglobin 9.5 G/DL (12.0-16.0) #L Hematocrit 29.4 % (37.0-47.0) #L Mean Corpuscular Volume 97 FL (80-99) # Mean Corpuscular Hemoglobin 31.4 PG (27.0-31.0) H Mean Corpuscular Hemoglobin Concent 32.4 G/DL (32.0-36.0) Red Cell Distribution Width 17.7 % (11.6-14.8) H Platelet Count 90 K/UL (150-450) L Mean Platelet Volume 12.0 FL (6.5-10.1) H Neutrophils (%) (Auto) % (45.0-75.0) Lymphocytes (%) (Auto) % (20.0-45.0) Monocytes (%) (Auto) % (1.0-10.0) Eosinophils (%) (Auto) % (0.0-3.0) Basophils (%) (Auto) % (0.0-2.0) Differential Total Cells Counted 100 Neutrophils % (Manual) 58 % (45-75) Lymphocytes % (Manual) 34 % (20-45) Monocytes % (Manual) 4 % (1-10) Eosinophils % (Manual) 2 % (0-3) Basophils % (Manual) 0 % (0-2) Band Neutrophils 2 % (0-8) Platelet Estimate Decreased L Platelet Morphology Normal Hypochromasia 2+ Spherocytes 1+ Sodium Level 165 MMOL/L (136-145) *H Potassium Level 3.8 MMOL/L (3.5-5.1) Chloride Level 127 MMOL/L (98-107) H Carbon Dioxide Level 24 MMOL/L (21-32) Anion Gap 13 mmol/L (5-15) Blood Urea Nitrogen 82 mg/dL (7-18) H Creatinine 3.1 MG/DL (0.55-1.30) H Estimat Glomerular Filtration Rate mL/min (>60) Glucose Level 267 MG/DL (74-106) H Calcium Level 7.5 MG/DL (8.5-10.1) L Phosphorus Level 4.3 MG/DL (2.5-4.9) Magnesium Level 3.3 MG/DL (1.8-2.4) H Total Bilirubin 0.4 MG/DL (0.2-1.0) Aspartate Amino Transf (AST/SGOT) 26 U/L (15-37) Alanine Aminotransferase (ALT/SGPT) 11 U/L (12-78) L Alkaline Phosphatase 74 U/L (46-116) Troponin I 0.059 ng/mL (0.000-0.056) Pro-B-Type Natriuretic Peptide 831 pg/mL (0-125) H Total Protein 7.7 G/DL (6.4-8.2) Albumin 2.8 G/DL (3.4-5.0) L Globulin 4.9 g/dL Albumin/Globulin Ratio 0.6 (1.0-2.7) L Current Medications Medications (Trade) Dose Ordered Sig/Nancy Route PRN Reason Start Time Stop Time Status Last Admin Dose Admin Acetaminophen (Tylenol) 650 mg Q4H PRN ORAL T>100.5 01/07/18 21:00 02/06/18 20:59 Albuterol/ Ipratropium (Albuterol/ Ipratropium) 3 ml Q4H PRN HHN Shortness of Breath 01/07/18 21:00 01/12/18 20:59 Amlodipine Besylate (Norvasc) 5 mg Q12HR GT 01/07/18 21:00 02/06/18 00:25 01/08/18 10:30 Apixaban (Eliquis) 2.5 mg BID GT 01/08/18 09:00 02/06/18 08:59 01/08/18 10:29 Aspirin (ASA) 81 mg DAILY NG 01/09/18 09:00 02/08/18 08:59 Clonidine HCl (Catapres Tab) 0.1 mg Q4H PRN ORAL sbp more than 160 01/07/18 21:00 02/06/18 20:59 Dextrose 1,000 ml @ 100 mls/hr Q10H IV 01/07/18 21:00 02/06/18 01:44 01/08/18 05:04 Dextrose (Dextrose 50%) 25 ml STAT PRN IV Hypoglycemia 01/07/18 21:00 02/06/18 20:59 Dextrose (Dextrose 50%) 50 ml STAT PRN IV Hypoglycemia 01/07/18 21:00 02/06/18 20:59 Epoetin Wallace (Procrit (for non ESRD use)) 10,000 units MON-WED-FRI SUBQ 01/08/18 21:00 02/07/18 20:59 Ertapenem 0.5 gm/ Sodium Chloride 55 ml @ 110 mls/hr Q24H IVPB 01/08/18 09:00 01/11/18 10:00 01/08/18 10:45 Insulin Aspart (NovoLOG) 6 units NOVOTIAC SUBQ 01/08/18 06:30 02/06/18 11:49 01/08/18 12:32 Insulin Aspart (NovoLOG) Please send pen with patient... BEFORE MEALS AND HS SUBQ 01/07/18 21:00 02/06/18 00:26 01/08/18 12:35 Insulin Detemir (Levemir) 12 units BID SUBQ 01/07/18 21:00 02/06/18 08:59 01/08/18 10:31 Levetiracetam (Keppra) 750 mg Q12HR GT 01/07/18 21:00 02/06/18 00:25 01/08/18 10:30 Metoclopramide HCl (Reglan) 5 mg Q6HR GT 01/08/18 00:00 02/06/18 05:59 01/08/18 12:36 Nitroglycerin (Ntg) 0.4 mg Q5M X 3 DOSES PRN SL Prn Chest Pain 01/07/18 21:00 02/05/18 20:44 Nitroglycerin (Ntg) 1 patch Q24H TDERMAL 01/08/18 14:00 02/06/18 13:59 01/08/18 14:32 Ondansetron HCl (Zofran) 4 mg Q6H PRN IVP Nausea & Vomiting 01/07/18 21:00 02/06/18 20:59 Pantoprazole (Protonix) 40 mg EVERY 12 HOURS IVP 01/07/18 21:00 02/06/18 01:59 01/08/18 10:30 Polyethylene Glycol (Miralax) 17 gm HSPRN PRN ORAL Constipation 01/07/18 21:00 02/06/18 20:59 Temazepam (Restoril) 15 mg HSPRN PRN ORAL Insomnia 01/07/18 21:00 01/14/18 20:59 Vancomycin HCl (Vanco rx to dose) 1 ea DAILY PRN MISC Per rx protocol 01/08/18 09:00 02/06/18 02:14 Ayala Forman M.D. Jan 08, 2018 16:58
--- NOTE | 2018-01-08 17:42 | General Surgery Progress Note ---
General Surgery-Progress Note Subjective Symptoms: improved, passing flatus, BM Additional Comments no acute events. Objective Last 24 Hour Vital Signs Date Time Temp Pulse Resp B/P (MAP) Pulse Ox O2 Delivery O2 Flow Rate FiO2 01/08/18 16:00 97.9 75 19 142/70 (94) 100 97.9 01/08/18 14:32 129/65 01/08/18 12:19 68 18 Nasal Cannula 2.0 28 01/08/18 12:00 98.3 77 20 129/65 (86) 100 98.3 01/08/18 10:30 68 119/65 01/08/18 09:00 Nasal Cannula 2.0 01/08/18 08:00 98.0 68 18 119/65 (83) 98 98.0 01/08/18 04:00 98.1 76 18 104/54 (71) 98 98.1 01/08/18 00:00 98.1 80 17 127/44 (71) 98 98.1 01/07/18 21:56 74 134/58 01/07/18 21:00 Nasal Cannula 2.0 01/07/18 20:00 97.5 72 20 124/75 (91) 100 97.5 I&O Intake and Output 01/07/18 01/08/18 19:00 07:00 Intake Total 1380 ml 700 ml Output Total 600 ml 500 ml Balance 780 ml 200 ml Intake Free Water 60 ml 150 ml IV Total 100 ml Tube Feeding 495 ml 450 ml Blood Product 825 ml Output Urine Total 600 ml 500 ml Wound: clean, dry, intact Cardiovascular: RSR Respiratory: clear Abdomen: soft, distended, non-tender, present bowel sounds Extremities: no cyanosis Laboratory Tests Test 01/08/18 05:40 White Blood Count 6.8 K/UL (4.8-10.8) Red Blood Count 3.03 M/UL (4.20-5.40) L Hemoglobin 9.5 G/DL (12.0-16.0) #L Hematocrit 29.4 % (37.0-47.0) #L Mean Corpuscular Volume 97 FL (80-99) # Mean Corpuscular Hemoglobin 31.4 PG (27.0-31.0) H Mean Corpuscular Hemoglobin Concent 32.4 G/DL (32.0-36.0) Red Cell Distribution Width 17.7 % (11.6-14.8) H Platelet Count 90 K/UL (150-450) L Mean Platelet Volume 12.0 FL (6.5-10.1) H Neutrophils (%) (Auto) % (45.0-75.0) Lymphocytes (%) (Auto) % (20.0-45.0) Monocytes (%) (Auto) % (1.0-10.0) Eosinophils (%) (Auto) % (0.0-3.0) Basophils (%) (Auto) % (0.0-2.0) Differential Total Cells Counted 100 Neutrophils % (Manual) 58 % (45-75) Lymphocytes % (Manual) 34 % (20-45) Monocytes % (Manual) 4 % (1-10) Eosinophils % (Manual) 2 % (0-3) Basophils % (Manual) 0 % (0-2) Band Neutrophils 2 % (0-8) Platelet Estimate Decreased L Platelet Morphology Normal Hypochromasia 2+ Spherocytes 1+ Sodium Level 165 MMOL/L (136-145) *H Potassium Level 3.8 MMOL/L (3.5-5.1) Chloride Level 127 MMOL/L (98-107) H Carbon Dioxide Level 24 MMOL/L (21-32) Anion Gap 13 mmol/L (5-15) Blood Urea Nitrogen 82 mg/dL (7-18) H Creatinine 3.1 MG/DL (0.55-1.30) H Estimat Glomerular Filtration Rate mL/min (>60) Glucose Level 267 MG/DL (74-106) H Calcium Level 7.5 MG/DL (8.5-10.1) L Phosphorus Level 4.3 MG/DL (2.5-4.9) Magnesium Level 3.3 MG/DL (1.8-2.4) H Total Bilirubin 0.4 MG/DL (0.2-1.0) Aspartate Amino Transf (AST/SGOT) 26 U/L (15-37) Alanine Aminotransferase (ALT/SGPT) 11 U/L (12-78) L Alkaline Phosphatase 74 U/L (46-116) Troponin I 0.059 ng/mL (0.000-0.056) Pro-B-Type Natriuretic Peptide 831 pg/mL (0-125) H Total Protein 7.7 G/DL (6.4-8.2) Albumin 2.8 G/DL (3.4-5.0) L Globulin 4.9 g/dL Albumin/Globulin Ratio 0.6 (1.0-2.7) L Plan Problems: (1) Sepsis (2) Sacral decubitus ulcer, stage III Assessment & Plan: Stage III sacral full thickness pressure injury to sacrum (L )8cm x (W)6.2cm .full thickness injury at coccygeal area with approx 10% slough centrally with pink epithelialized borders.No odor or exudate noted. Full thickness ulcer noted to lateral R tibia(L)2cm x (W)1.4cm .Wound bed with approx 20% mixed slough /necrosis otherwise red with macerated borders .Scant non-odorous serous exudate noted to drsg upon removal. Periwound skin is dry. No edema noted. R heel soft but blanchable. Tx Plan: Cleanse Sacral wound with Saline ;Apply Triad Paste to sacral wound.Cavilon wipe Periwound and cover with Biatain drsg every other day and prn. Cleanse wound lateral RLE with saline.Apply Silvasorb Gel. Cavilon wipe to borders and cover with Biatain drsg every other day and prn. Recommend Surface support overlay on bed. Reposition at minimum every 2hours as tolerated. Off-load R heel with pillow Patient presented with above wound. Was seen as stage II prior and currently with stage III in small portion of wound. Taco Carter Jan 08, 2018 17:42
--- NOTE | 2018-01-08 18:12 | General Progress Note ---
Assessment/Plan Problem List: (1) CKD (chronic kidney disease) ICD Codes: N18.9 - Chronic kidney disease, unspecified SNOMED: 898004955 Qualifiers: Qualified Codes: N18.9 - Chronic kidney disease, unspecified (2) Hypernatremia ICD Codes: E87.0 - Hyperosmolality and hypernatremia SNOMED: 09629546 (3) Diabetes ICD Codes: E11.9 - Type 2 diabetes mellitus without complications SNOMED: 56455707 Assessment/Plan increase Levemir to 20 units bid increase Novolog to 10 units ac tid + SSI Subjective Allergies: Coded Allergies: No Known Allergies (Verified , 01/27/10) All Systems: reviewed and negative except above Subjective events noted Objective Last 24 Hour Vital Signs Date Time Temp Pulse Resp B/P (MAP) Pulse Ox O2 Delivery O2 Flow Rate FiO2 01/08/18 16:00 97.9 75 19 142/70 (94) 100 97.9 01/08/18 14:32 129/65 01/08/18 12:19 68 18 Nasal Cannula 2.0 28 01/08/18 12:00 98.3 77 20 129/65 (86) 100 98.3 01/08/18 10:30 68 119/65 01/08/18 09:00 Nasal Cannula 2.0 01/08/18 08:00 98.0 68 18 119/65 (83) 98 98.0 01/08/18 04:00 98.1 76 18 104/54 (71) 98 98.1 01/08/18 00:00 98.1 80 17 127/44 (71) 98 98.1 01/07/18 21:56 74 134/58 01/07/18 21:00 Nasal Cannula 2.0 01/07/18 20:00 97.5 72 20 124/75 (91) 100 97.5 Intake and Output 01/07/18 01/08/18 19:00 07:00 Intake Total 1380 ml 700 ml Output Total 600 ml 500 ml Balance 780 ml 200 ml Intake Free Water 60 ml 150 ml IV Total 100 ml Tube Feeding 495 ml 450 ml Blood Product 825 ml Output Urine Total 600 ml 500 ml Laboratory Tests 01/08/18 05:40: White Blood Count 6.8, Red Blood Count 3.03L, Hemoglobin 9.5#L, Hematocrit 29.4# L, Mean Corpuscular Volume 97#, Mean Corpuscular Hemoglobin 31.4H, Mean Corpuscular Hemoglobin Concent 32.4, Red Cell Distribution Width 17.7H, Platelet Count 90L, Mean Platelet Volume 12.0H, Neutrophils (%) (Auto) , Lymphocytes (%) (Auto) , Monocytes (%) (Auto) , Eosinophils (%) (Auto) , Basophils (%) (Auto) , Differential Total Cells Counted 100, Neutrophils % ( Manual) 58, Lymphocytes % (Manual) 34, Monocytes % (Manual) 4, Eosinophils % ( Manual) 2, Basophils % (Manual) 0, Band Neutrophils 2, Platelet Estimate DecreasedL, Platelet Morphology Normal, Hypochromasia 2+, Spherocytes 1+, Sodium Level 165*H, Potassium Level 3.8, Chloride Level 127H, Carbon Dioxide Level 24, Anion Gap 13, Blood Urea Nitrogen 82H, Creatinine 3.1H, Estimat Glomerular Filtration Rate , Glucose Level 267H, Calcium Level 7.5L, Phosphorus Level 4.3, Magnesium Level 3.3H, Total Bilirubin 0.4, Aspartate Amino Transf ( AST/SGOT) 26, Alanine Aminotransferase (ALT/SGPT) 11L, Alkaline Phosphatase 74, Troponin I 0.059H, Pro-B-Type Natriuretic Peptide 831H, Total Protein 7.7, Albumin 2.8L, Globulin 4.9, Albumin/Globulin Ratio 0.6L Height (Feet): 5 Height (Inches): 5.00 Weight (Pounds): 181 General Appearance: no apparent distress Neck: normal alignment Cardiovascular: normal rate Respiratory/Chest: decreased breath sounds Abdomen: normal bowel sounds Pelvis: normal external exam Objective Current Medications Medications (Trade) Dose Ordered Sig/Nancy Route PRN Reason Start Time Stop Time Status Last Admin Dose Admin Acetaminophen (Tylenol) 650 mg Q4H PRN ORAL T>100.5 01/07/18 21:00 02/06/18 20:59 Albuterol/ Ipratropium (Albuterol/ Ipratropium) 3 ml Q4H PRN HHN Shortness of Breath 01/07/18 21:00 01/12/18 20:59 Amlodipine Besylate (Norvasc) 5 mg Q12HR GT 01/07/18 21:00 02/06/18 00:25 01/08/18 10:30 Apixaban (Eliquis) 2.5 mg BID GT 01/08/18 09:00 02/06/18 08:59 01/08/18 18:03 Aspirin (ASA) 81 mg DAILY NG 01/09/18 09:00 02/08/18 08:59 Clonidine HCl (Catapres Tab) 0.1 mg Q4H PRN ORAL sbp more than 160 01/07/18 21:00 02/06/18 20:59 Dextrose 1,000 ml @ 100 mls/hr Q10H IV 01/07/18 21:00 02/06/18 01:44 01/08/18 16:56 Dextrose (Dextrose 50%) 25 ml STAT PRN IV Hypoglycemia 01/07/18 21:00 02/06/18 20:59 Dextrose (Dextrose 50%) 50 ml STAT PRN IV Hypoglycemia 01/07/18 21:00 02/06/18 20:59 Epoetin Wallace (Procrit (for non ESRD use)) 10,000 units SAT-SAT-SAT SUBQ 01/08/18 21:00 02/07/18 20:59 Ertapenem 0.5 gm/ Sodium Chloride 55 ml @ 110 mls/hr Q24H IVPB 01/08/18 09:00 01/11/18 10:00 01/08/18 10:45 Insulin Aspart (NovoLOG) 6 units NOVOTIAC SUBQ 01/08/18 06:30 02/06/18 11:49 01/08/18 17:06 Insulin Aspart (NovoLOG) Please send pen with patient... BEFORE MEALS AND HS SUBQ 01/07/18 21:00 02/06/18 00:26 01/08/18 17:07 Insulin Detemir (Levemir) 12 units BID SUBQ 01/07/18 21:00 02/06/18 08:59 01/08/18 18:04 Levetiracetam (Keppra) 750 mg Q12HR GT 01/07/18 21:00 02/06/18 00:25 01/08/18 10:30 Metoclopramide HCl (Reglan) 5 mg Q6HR GT 01/08/18 00:00 02/06/18 05:59 01/08/18 18:03 Nitroglycerin (Ntg) 0.4 mg Q5M X 3 DOSES PRN SL Prn Chest Pain 01/07/18 21:00 02/05/18 20:44 Nitroglycerin (Ntg) 1 patch Q24H TDERMAL 01/08/18 14:00 02/06/18 13:59 01/08/18 14:32 Ondansetron HCl (Zofran) 4 mg Q6H PRN IVP Nausea & Vomiting 01/07/18 21:00 02/06/18 20:59 Pantoprazole (Protonix) 40 mg EVERY 12 HOURS IVP 01/07/18 21:00 02/06/18 01:59 01/08/18 10:30 Polyethylene Glycol (Miralax) 17 gm HSPRN PRN ORAL Constipation 01/07/18 21:00 02/06/18 20:59 Temazepam (Restoril) 15 mg HSPRN PRN ORAL Insomnia 01/07/18 21:00 01/14/18 20:59 Vancomycin HCl (Vanco rx to dose) 1 ea DAILY PRN MISC Per rx protocol 01/08/18 09:00 02/06/18 02:14 Item Value Date Time Bedside Blood Glucose 247 mg/dl H 01/08/18 1804 Bedside Blood Glucose 304 mg/dl H 01/08/18 1235 Bedside Blood Glucose 315 mg/dl H 01/08/18 1031 Bedside Blood Glucose 260 mg/dl H 01/08/18 0540 Bedside Blood Glucose 188 mg/dl H 01/07/18 2222 Bedside Blood Glucose 219 mg/dl H 01/07/18 1825 Bedside Blood Glucose 305 mg/dl H 01/07/18 1217 Kodak Villeda MD Jan 08, 2018 18:12
[2018-01-08 20:00] VITALS: BP 128/50
[2018-01-08] MEDS: Epogen (for non ESRD use) SUBQ SCH (20:41)
[2018-01-09] VITALS (7 sets, daily range): BP systolic 91–141; BP diastolic 55–77
[2018-01-09] MEDS: Metoclopramide 10mg/10ml Liq GT SCH ×3 (05:49→21:53)
[2018-01-09] MEDS: NovoLOG Insulin Flexpen SUBQ SCH ×7 (05:49→21:56)
--- NOTE | 2018-01-09 09:09 | General Progress Note ---
Assessment/Plan Problem List: (1) ATN (acute tubular necrosis) ICD Codes: N17.0 - Acute kidney failure with tubular necrosis SNOMED: 37371338 (2) G tube feedings ICD Codes: Z93.1 - G tube feedings SNOMED: 297450936 (3) Dehydration ICD Codes: E86.0 - Dehydration SNOMED: 25367159 (4) Hyperglycemia ICD Codes: R73.9 - Hyperglycemia, unspecified SNOMED: 60821034 (5) Dementia ICD Codes: F03.90 - Dementia SNOMED: 92471609 (6) UTI (urinary tract infection) (7) Anemia ICD Codes: D64.9 - Anemia, unspecified SNOMED: 196205346 (8) Functional quadriplegia ICD Codes: R53.2 - Functional quadriplegia SNOMED: 569609964391580 Status: stable Assessment/Plan no labs today antibiotics- transfused GT feeding BS and BP check and medication adjustment per consultants Subjective ROS Limited/Unobtainable: No Constitutional: Reports: malaise Allergies: Coded Allergies: No Known Allergies (Verified , 01/27/10) Objective Last 24 Hour Vital Signs Date Time Temp Pulse Resp B/P (MAP) Pulse Ox O2 Delivery O2 Flow Rate FiO2 01/09/18 04:00 97.4 75 21 119/68 (85) 100 97.4 01/09/18 00:00 98.9 78 20 141/66 (91) 98 98.9 01/08/18 21:00 Nasal Cannula 2.0 01/08/18 20:41 74 128/50 01/08/18 20:00 99.5 74 21 128/50 (76) 100 99.5 01/08/18 19:10 74 18 Nasal Cannula 2.0 28 01/08/18 16:00 97.9 75 19 142/70 (94) 100 97.9 01/08/18 14:32 129/65 01/08/18 12:19 68 18 Nasal Cannula 2.0 28 01/08/18 12:00 98.3 77 20 129/65 (86) 100 98.3 01/08/18 10:30 68 119/65 Intake and Output 01/08/18 01/09/18 19:00 07:00 Intake Total 1815 ml 1595 ml Output Total 475 ml 500 ml Balance 1340 ml 1095 ml Intake Free Water 120 ml 50 ml IV Total 1155 ml 1050 ml Tube Feeding 540 ml 495 ml Output Urine Total 475 ml 500 ml # Bowel Movements 4 2 Laboratory Tests 01/09/18 05:00: Random Vancomycin Level 10.1 Height (Feet): 5 Height (Inches): 5.00 Weight (Pounds): 181 General Appearance: no apparent distress, lethargic Neck: limited range of motion Cardiovascular: normal rate Respiratory/Chest: decreased breath sounds Abdomen: distended Objective no other changes Estevan Orozco MD Jan 09, 2018 09:09
[2018-01-09] MEDS: Ertapenem 0.5 GM in NS 55 ML IVPB SCH (09:36)
[2018-01-09] MEDS: Eliquis 2.5mg tablet GT SCH ×2 (09:37→17:36)
[2018-01-09] MEDS: Aspirin Baby 81mg NG SCH (09:37)
[2018-01-09] MEDS: levETIRAcetam 500mg/5ml Liquid GT SCH ×2 (09:37→21:54)
[2018-01-09] MEDS: Levemir Flexpen SUBQ SCH ×2 (09:42→17:37)
[2018-01-09] MEDS ORDERED: Vancomycin 1gm/D5W 275ml IVPB ONE ×2 (10:00)
[2018-01-09] MEDS: Nitroglycerin Patch 0.4mg TDERMAL SCH (13:17)
--- NOTE | 2018-01-09 14:04 | Pulmonology Progress Note ---
Assessment/Plan Problems: (1) Sepsis (2) ATN (acute tubular necrosis) (3) Hyperglycemia (4) G tube feedings (5) Decubital ulcer (6) Functional quadriplegia (7) Seizure disorder (8) Sacral decubitus ulcer, stage III Assessment/Plan cobb cultures iv fluids check electrolytes sliding scale diabetic diet f/u ID and endo recommendations dc planning soon consider end of life care and hospice Subjective ROS Limited/Unobtainable: Yes Constitutional: Reports: no symptoms Allergies: Coded Allergies: No Known Allergies (Verified , 01/27/10) Objective Last 24 Hour Vital Signs Date Time Temp Pulse Resp B/P (MAP) Pulse Ox O2 Delivery O2 Flow Rate FiO2 01/09/18 13:17 124/77 01/09/18 12:00 97.7 93 21 124/77 (93) 100 97.7 01/09/18 09:37 64 108/68 01/09/18 09:00 Nasal Cannula 2.0 01/09/18 08:00 98.3 64 21 108/68 (81) 100 98.3 01/09/18 04:00 97.4 75 21 119/68 (85) 100 97.4 01/09/18 00:00 98.9 78 20 141/66 (91) 98 98.9 01/08/18 21:00 Nasal Cannula 2.0 01/08/18 20:41 74 128/50 01/08/18 20:00 99.5 74 21 128/50 (76) 100 99.5 01/08/18 19:10 74 18 Nasal Cannula 2.0 28 01/08/18 16:00 97.9 75 19 142/70 (94) 100 97.9 01/08/18 14:32 129/65 Intake and Output 01/08/18 01/09/18 19:00 07:00 Intake Total 1815 ml 1595 ml Output Total 475 ml 500 ml Balance 1340 ml 1095 ml Intake Free Water 120 ml 50 ml IV Total 1155 ml 1050 ml Tube Feeding 540 ml 495 ml Output Urine Total 475 ml 500 ml # Bowel Movements 4 2 General Appearance: WD/WN HEENT: normocephalic, atraumatic Respiratory/Chest: chest wall non-tender, lungs clear, normal breath sounds Breasts: no masses Cardiovascular: normal peripheral pulses, normal rate Abdomen: normal bowel sounds, soft, non tender Genitourinary: normal external genitalia Extremities: no cyanosis Skin: no ulcers 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 grossly normal, abnormal gait Microbiology Date/Time Source Procedure Growth Status 01/06/18 20:00 Blood Blood Culture - Preliminary Resulted 01/06/18 19:45 Blood Blood Culture - Preliminary NO GROWTH AFTER 48 HOURS Resulted 01/08/18 19:20 Stool Clostridium difficile Toxin Assay - Final Complete 01/06/18 21:02 Urine,Clean Catch Urine Culture - Final Mixed Urogenital Contaminants Complete 01/07/18 04:00 Sacral Wound Gram Stain - Final Resulted 01/07/18 04:00 Wound Culture - Preliminary Proteus Mirabilis Staphylococcus Aureus Resulted Laboratory Tests 01/09/18 05:00: C-Reactive Protein, Quantitative 6.4H, Random Vancomycin Level 10.1 Current Medications Medications (Trade) Dose Ordered Sig/Nancy Route PRN Reason Start Time Stop Time Status Last Admin Dose Admin Acetaminophen (Tylenol) 650 mg Q4H PRN ORAL T>100.5 01/07/18 21:00 02/06/18 20:59 Albuterol/ Ipratropium (Albuterol/ Ipratropium) 3 ml Q4H PRN HHN Shortness of Breath 01/07/18 21:00 01/12/18 20:59 Amlodipine Besylate (Norvasc) 5 mg Q12HR GT 01/07/18 21:00 02/06/18 00:25 01/09/18 09:37 Apixaban (Eliquis) 2.5 mg BID GT 01/08/18 09:00 02/06/18 08:59 01/09/18 09:37 Aspirin (ASA) 81 mg DAILY NG 01/09/18 09:00 02/08/18 08:59 01/09/18 09:37 Clonidine HCl (Catapres Tab) 0.1 mg Q4H PRN ORAL sbp more than 160 01/07/18 21:00 02/06/18 20:59 Dextrose 1,000 ml @ 100 mls/hr Q10H IV 01/07/18 21:00 02/06/18 01:44 01/09/18 13:18 Dextrose (Dextrose 50%) 25 ml STAT PRN IV Hypoglycemia 01/07/18 21:00 02/06/18 20:59 Dextrose (Dextrose 50%) 50 ml STAT PRN IV Hypoglycemia 01/07/18 21:00 02/06/18 20:59 Epoetin Wallace (Procrit (for non ESRD use)) 10,000 units MON-WED-SAT SUBQ 01/08/18 21:00 02/07/18 20:59 01/08/18 20:41 Ertapenem 0.5 gm/ Sodium Chloride 55 ml @ 110 mls/hr Q24H IVPB 01/08/18 09:00 01/11/18 10:00 01/09/18 09:36 Insulin Aspart (NovoLOG) 10 units NOVOTIAC SUBQ 01/09/18 06:30 02/06/18 11:49 01/09/18 11:46 Insulin Aspart (NovoLOG) Please send pen with patient... BEFORE MEALS AND HS SUBQ 01/07/18 21:00 02/06/18 00:26 01/09/18 11:55 Insulin Detemir (Levemir) 20 units BID SUBQ 01/09/18 09:00 02/06/18 08:59 01/09/18 09:42 Levetiracetam (Keppra) 750 mg Q12HR GT 01/07/18 21:00 02/06/18 00:25 01/09/18 09:37 Metoclopramide HCl (Reglan) 5 mg Q8HR GT 01/09/18 14:00 02/06/18 05:59 01/09/18 13:17 Nitroglycerin (Ntg) 0.4 mg Q5M X 3 DOSES PRN SL Prn Chest Pain 01/07/18 21:00 02/05/18 20:44 Nitroglycerin (Ntg) 1 patch Q24H TDERMAL 01/08/18 14:00 02/06/18 13:59 01/09/18 13:17 Ondansetron HCl (Zofran) 4 mg Q6H PRN IVP Nausea & Vomiting 01/07/18 21:00 02/06/18 20:59 Pantoprazole (Protonix) 40 mg DAILY IVP 01/10/18 09:00 02/06/18 01:59 Polyethylene Glycol (Miralax) 17 gm HSPRN PRN ORAL Constipation 01/07/18 21:00 02/06/18 20:59 Temazepam (Restoril) 15 mg HSPRN PRN ORAL Insomnia 01/07/18 21:00 01/14/18 20:59 Vancomycin HCl (Vanco rx to dose) 1 ea DAILY PRN MISC Per rx protocol 01/08/18 09:00 02/06/18 02:14 Saira Lazcano MD Jan 09, 2018 14:04
--- NOTE | 2018-01-09 14:27 | General Surgery Progress Note ---
General Surgery-Progress Note Subjective Additional Comments no acute events. improving. Objective Last 24 Hour Vital Signs Date Time Temp Pulse Resp B/P (MAP) Pulse Ox O2 Delivery O2 Flow Rate FiO2 01/09/18 13:17 124/77 01/09/18 12:00 97.7 93 21 124/77 (93) 100 97.7 01/09/18 09:37 64 108/68 01/09/18 09:00 Nasal Cannula 2.0 01/09/18 08:00 98.3 64 21 108/68 (81) 100 98.3 01/09/18 04:00 97.4 75 21 119/68 (85) 100 97.4 01/09/18 00:00 98.9 78 20 141/66 (91) 98 98.9 01/08/18 21:00 Nasal Cannula 2.0 01/08/18 20:41 74 128/50 01/08/18 20:00 99.5 74 21 128/50 (76) 100 99.5 01/08/18 19:10 74 18 Nasal Cannula 2.0 28 01/08/18 16:00 97.9 75 19 142/70 (94) 100 97.9 01/08/18 14:32 129/65 I&O Intake and Output 01/08/18 01/09/18 19:00 07:00 Intake Total 1815 ml 1595 ml Output Total 475 ml 500 ml Balance 1340 ml 1095 ml Intake Free Water 120 ml 50 ml IV Total 1155 ml 1050 ml Tube Feeding 540 ml 495 ml Output Urine Total 475 ml 500 ml # Bowel Movements 4 2 Wound: clean, dry, intact Drains: none Cardiovascular: RSR Respiratory: clear Abdomen: soft, distended, non-tender, present bowel sounds Extremities: no cyanosis Laboratory Tests Test 01/09/18 05:00 C-Reactive Protein, Quantitative 6.4 mg/dL (0.00-0.90) H Random Vancomycin Level 10.1 ug/mL Plan Problems: (1) Sepsis (2) Sacral decubitus ulcer, stage III Assessment & Plan: Stage III sacral full thickness pressure injury to sacrum (L )8cm x (W)6.2cm .full thickness injury at coccygeal area with approx 10% slough centrally with pink epithelialized borders.No odor or exudate noted. Full thickness ulcer noted to lateral R tibia(L)2cm x (W)1.4cm .Wound bed with approx 20% mixed slough /necrosis otherwise red with macerated borders .Scant non-odorous serous exudate noted to drsg upon removal. Periwound skin is dry. No edema noted. R heel soft but blanchable. Tx Plan: Cleanse Sacral wound with Saline ;Apply Triad Paste to sacral wound.Cavilon wipe Periwound and cover with Biatain drsg every other day and prn. Cleanse wound lateral RLE with saline.Apply Silvasorb Gel. Cavilon wipe to borders and cover with Biatain drsg every other day and prn. Recommend Surface support overlay on bed. Reposition at minimum every 2hours as tolerated. Off-load R heel with pillow Patient presented with above wound. Was seen as stage II prior and currently with stage III in small portion of wound. Taco Carter Jan 09, 2018 14:27
--- NOTE | 2018-01-09 15:57 | GI Initial Consult Note ---
History of Present Illness General Date patient seen: Jan 09, 2018 Time patient seen: 15:56 Reason for Hospitalization: Abnormal Labs Referring physician: GIANCARLO Reason for Consultation: GT MALFUNCTION Present Illness HPI 82-year-old female presents ED for evaluation. Patient presenting with elevated blood sugar from assisted facility 1 day. Accu-Chek in the 400s. Patient not given insulin prior to arrival. Patient is nonverbal at baseline. No signs of distress. Afebrile. No other aggravating relieving factors. No other associated symptoms GI consulted for GT malfunction. ROS limited, nonverbal . Pt seen, awake NAD with no active s/sx of N/V/D. GT noted with tear, unable to flush tube. Patient presents today with electrolyte imbalance, hypertriglyceremia, macrocytic hyperchromic anemia and ESRD. Unknown history of PEG, and or colonoscopy. Home Meds Active Scripts Apixaban (ELIQUIS) 2.5 Mg Tablet, 2.5 MG GT BID for 90 Days, TAB Prov:Estevan Orozco MD 09/25/17 Insulin Aspart (Novolog Flexpen) 100 Unit/1 Ml Insuln.pen, 0 UNITS SUBQ EVERY 6 HOURS for 30 Days, EA Prov:Estevan Orozco MD 09/25/17 Ertapenem (Invanz) 1 Gm Vial, 1 GM IM DAILY for 10 Days, VIAL Prov:Estevan Orozco MD 09/25/17 Nateglinide (Starlix) 120 Mg Tablet, 120 MG ORAL Q8HR for 90 Days, TAB Prov:Estevan Orozco MD 09/25/17 Ampicillin Trihydrate (AMPICILLIN TRIHYDRATE) 500 Mg Capsule, 500 MG GT EVERY 6 HOURS for 10 Days, CAP Prov:Estevan Orozco MD 09/25/17 Albuterol Sulfate* (ALBUTEROL SULFATE HHN*) 2.5 Mg/3 Ml Vial.neb, 2.5 MG HHN Q4H PRN for 14 Days, VIAL Prov:Estevan Orozco MD 09/25/17 Metoclopramide HCl (Metoclopramide HCl) 10 Mg/10 Ml Solution, 5 MG GT Q6HR for 30 Days, #100 TAB Prov:Estevan Orozco MD 09/09/17 Levetiracetam (Keppra) 100 Mg/1 Ml Solution, 750 MG GT Q12HR for 90 Days, #120 TAB Prov:Estevan Orozco MD 09/09/17 Famotidine (FAMOTIDINE) 20 Mg Tablet, 20 MG GT BID for 90 Days, TAB Prov:Estevan Orozco MD 09/09/17 Amlodipine Besylate (Norvasc) 5 Mg Tablet, 5 MG GT Q12HR for 90 Days, TAB Prov:Estevan Orozco MD 09/09/17 Reported Medications Amino Acids/Protein Hydrolys (PRO-STAT LIQUID) 30 Ml Liquid.pkt, 30 ML GT TWICE A DAY, ML 01/06/18 Acetaminophen* (ACETAMINOPHEN 325MG TABLET*) 325 Mg Tablet, 650 MG GT Q4H PRN for T>101, TAB 01/06/18 Lansoprazole* (LANSOPRAZOLE*) 30 Mg Capsule.dr, 30 MG GT EVERY 12 HOURS, CAP 01/06/18 Zinc Sulfate (ZINC SULFATE*) 220 Mg Capsule, 220 MG GT DAILY, CAP 0 Refills 09/20/17 Ascorbic Acid* (VITAMIN C*) 500 Mg Tablet, 500 MG GT DAILY, #30 TAB 0 Refills 09/20/17 Multivitamin Liquid* (MULTI-DELYN*) 237 Ml Liquid, 5 ML GT DAILY, ML 09/20/17 Na Phos,M-B/Na Phos,Di-Ba* (FLEET ENEMA*) 133 Ml Enema, 133 ML RECTAL EVERY OTHER DAY PRN for Constipation, ML 0 Refills 09/20/17 Insulin Aspart* (NOVOLOG*) 100 Unit/1 Ml Insuln.pen, 0 SUBQ Q6HR, #1 EA 0 Refills BG 0-110 = 0 UNITS SQ BG 111-126 = 2 UNITS SQ BG 127-150 = 3 UNITS SQ BG 151-200 = 4 UNITS SQ BG 201-250 = 6 UNITS SQ BG 251-300 = 8 UNITS SQ BG 301-350 = 10 UNITS SQ BG 351-400 = 12 UNITS SQ 09/20/17 Cranberry Fruit (CRANBERRY) 450 Mg Tablet, 450 MG GT DAILY, TAB 09/20/17 Acetaminophen (MAPAP) 650 Mg/20.3 Ml Solution, 650 MG GT Q4HR PRN for Mild Pain/ Temp > 100.5 MDD 3GM 09/20/17 Tramadol Hcl* (ULTRAM*) 50 Mg Tablet, 50 MG GT Q8HR, #30 TAB 0 Refills 09/20/17 Polyethylene Glycol 3350* (MIRALAX*) 17 Gm Powd.pack, 17 GM GT DAILY PRN for Constipation, PACKET 05/16/17 Med list reviewed/reconciled: Yes Allergies: Coded Allergies: No Known Allergies (Verified , 01/27/10) Patient History Limited by: medical condition History Provided By: Medical Record PMH Narrative Past Medical History: DM, HTN, COPD, CVA/TIA, seizures Pertinent Family History: none Social History: Denies: smoking, alcohol use, drug use Last Menstrual Period: n/a Now: No Immunizations: UTD Reviewed Nursing Documentation: PMH: Agreed; PSxH: Agreed Nursing Documentation-PMH Past Medical History: No History, Except For Hx Cardiac Problems: Yes - Sepsis, DVT Hx Hypertension: Yes Hx Pacemaker: No Hx Asthma: No Hx COPD: Yes - PNA Hx Diabetes: Yes - DM2 Hx Cancer: No Hx Gastrointestinal Problems: No - Gtube Hx Dialysis: No 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 Hx Dementia: Yes Hx Seizures: Yes - Epilepsy Hx Speech Problem: Yes - Non-verbal Hx Dysphasia: Yes - G-tube Review of Systems All Other Systems: limited Physical Exam Vital Signs Date Time Temp Pulse Resp B/P (MAP) Pulse Ox O2 Delivery O2 Flow Rate FiO2 01/06/18 19:34 99.0 91 22 109/71 95 Nasal Cannula 2.0 99.0 01/08/18 12:19 28 Sp02 EP Interpretation: reviewed Labs Laboratory Tests Test 01/09/18 05:00 C-Reactive Protein, Quantitative 6.4 mg/dL (0.00-0.90) H Random Vancomycin Level 10.1 ug/mL General Appearance: well appearing, no apparent distress Head: normocephalic EENT: normal ENT inspection Neck: supple Respiratory: no respiratory distress Cardiovascular: normal rate Gastrointestinal: gt - changed at bedside Neurologic: alert Skin: normal inspection, normal color, no rash, warm/dry Lymphatic: normal inspection, no adenopathy Current Medications Current Medications Medications (Trade) Dose Ordered Sig/Nancy Route PRN Reason Start Time Stop Time Status Last Admin Dose Admin Acetaminophen (Tylenol) 650 mg Q4H PRN ORAL T>100.5 01/07/18 21:00 02/06/18 20:59 Albuterol/ Ipratropium (Albuterol/ Ipratropium) 3 ml Q4H PRN HHN Shortness of Breath 01/07/18 21:00 01/12/18 20:59 Amlodipine Besylate (Norvasc) 5 mg Q12HR GT 01/07/18 21:00 02/06/18 00:25 01/09/18 09:37 Apixaban (Eliquis) 2.5 mg BID GT 01/08/18 09:00 02/06/18 08:59 01/09/18 09:37 Aspirin (ASA) 81 mg DAILY NG 01/09/18 09:00 02/08/18 08:59 01/09/18 09:37 Clonidine HCl (Catapres Tab) 0.1 mg Q4H PRN ORAL sbp more than 160 01/07/18 21:00 02/06/18 20:59 Dextrose 1,000 ml @ 100 mls/hr Q10H IV 01/07/18 21:00 02/06/18 01:44 01/09/18 13:18 Dextrose (Dextrose 50%) 25 ml STAT PRN IV Hypoglycemia 01/07/18 21:00 02/06/18 20:59 Dextrose (Dextrose 50%) 50 ml STAT PRN IV Hypoglycemia 01/07/18 21:00 02/06/18 20:59 Epoetin Wallace (Procrit (for non ESRD use)) 10,000 units MON-WED-SAT SUBQ 01/08/18 21:00 02/07/18 20:59 01/08/18 20:41 Ertapenem 0.5 gm/ Sodium Chloride 55 ml @ 110 mls/hr Q24H IVPB 01/08/18 09:00 01/11/18 10:00 01/09/18 09:36 Insulin Aspart (NovoLOG) 10 units NOVOTIAC SUBQ 01/09/18 06:30 02/06/18 11:49 01/09/18 11:46 Insulin Aspart (NovoLOG) Please send pen with patient... BEFORE MEALS AND HS SUBQ 01/07/18 21:00 02/06/18 00:26 01/09/18 11:55 Insulin Detemir (Levemir) 20 units BID SUBQ 01/09/18 09:00 02/06/18 08:59 01/09/18 09:42 Levetiracetam (Keppra) 750 mg Q12HR GT 01/07/18 21:00 02/06/18 00:25 01/09/18 09:37 Metoclopramide HCl (Reglan) 5 mg Q8HR GT 01/09/18 14:00 02/06/18 05:59 01/09/18 13:17 Nitroglycerin (Ntg) 0.4 mg Q5M X 3 DOSES PRN SL Prn Chest Pain 01/07/18 21:00 02/05/18 20:44 Nitroglycerin (Ntg) 1 patch Q24H TDERMAL 01/08/18 14:00 02/06/18 13:59 01/09/18 13:17 Ondansetron HCl (Zofran) 4 mg Q6H PRN IVP Nausea & Vomiting 01/07/18 21:00 02/06/18 20:59 Pantoprazole (Protonix) 40 mg DAILY IVP 01/10/18 09:00 02/06/18 01:59 Polyethylene Glycol (Miralax) 17 gm HSPRN PRN ORAL Constipation 01/07/18 21:00 02/06/18 20:59 Temazepam (Restoril) 15 mg HSPRN PRN ORAL Insomnia 01/07/18 21:00 01/14/18 20:59 Vancomycin HCl (Vanco rx to dose) 1 ea DAILY PRN MISC Per rx protocol 01/08/18 09:00 02/06/18 02:14 GI: Plan Problems: (1) Malfunction of gastrostomy tube (2) Hypertriglyceridemia (3) Gastroparesis Plan GT 20french changed at bedside, okay to use. GTFs held due to high residual, start at lower rate and increase to goal cont reglan 5mg GT anemia work up reviewed DM management electrolyte correction ppi prn transfusions fu labs Discussed with Dr. Arana. Thank you for this patient referral, we will follow. The patient was seen and examined at bedside and all new and available data was reviewed in the patients chart. I agree with the above findings, impression and plan. (Patient seen earlier today. Signature stamp does not reflect patient encounter time.). - MD Kellen Meehan,[facility] [employer] Jan 09, 2018 15:57
--- NOTE | 2018-01-09 17:38 | General Progress Note ---
Assessment/Plan Problem List: (1) CKD (chronic kidney disease) ICD Codes: N18.9 - Chronic kidney disease, unspecified SNOMED: 207049937 Qualifiers: Qualified Codes: N18.9 - Chronic kidney disease, unspecified (2) Hypernatremia ICD Codes: E87.0 - Hyperosmolality and hypernatremia SNOMED: 91136088 (3) Diabetes ICD Codes: E11.9 - Type 2 diabetes mellitus without complications SNOMED: 39340460 Assessment/Plan continue Levemir 20 units bid continue Novolog 10 units ac tid + SSI Subjective Allergies: Coded Allergies: No Known Allergies (Verified , 01/27/10) All Systems: reviewed and negative except above Subjective events noted Objective Last 24 Hour Vital Signs Date Time Temp Pulse Resp B/P (MAP) Pulse Ox O2 Delivery O2 Flow Rate FiO2 01/09/18 16:00 98.6 64 21 127/77 (94) 100 98.6 01/09/18 13:17 124/77 01/09/18 12:00 97.7 93 21 124/77 (93) 100 97.7 01/09/18 09:37 64 108/68 01/09/18 09:22 66 20 Nasal Cannula 2.0 28 01/09/18 09:21 Nasal Cannula 2.0 01/09/18 09:21 98 Nasal Cannula 2.0 01/09/18 09:00 Nasal Cannula 2.0 01/09/18 08:00 98.3 64 21 108/68 (81) 100 98.3 01/09/18 04:00 97.4 75 21 119/68 (85) 100 97.4 01/09/18 00:00 98.9 78 20 141/66 (91) 98 98.9 01/08/18 21:00 Nasal Cannula 2.0 01/08/18 20:41 74 128/50 01/08/18 20:00 99.5 74 21 128/50 (76) 100 99.5 01/08/18 19:10 74 18 Nasal Cannula 2.0 28 Intake and Output 01/08/18 01/09/18 19:00 07:00 Intake Total 1815 ml 1595 ml Output Total 475 ml 500 ml Balance 1340 ml 1095 ml Intake Free Water 120 ml 50 ml IV Total 1155 ml 1050 ml Tube Feeding 540 ml 495 ml Output Urine Total 475 ml 500 ml # Bowel Movements 4 2 Laboratory Tests 01/09/18 05:00: C-Reactive Protein, Quantitative 6.4H, Random Vancomycin Level 10.1 Height (Feet): 5 Height (Inches): 5.00 Weight (Pounds): 181 General Appearance: no apparent distress Neck: normal alignment Cardiovascular: normal rate Respiratory/Chest: decreased breath sounds Abdomen: normal bowel sounds Objective Current Medications Medications (Trade) Dose Ordered Sig/Nancy Route PRN Reason Start Time Stop Time Status Last Admin Dose Admin Acetaminophen (Tylenol) 650 mg Q4H PRN ORAL T>100.5 01/07/18 21:00 02/06/18 20:59 Albuterol/ Ipratropium (Albuterol/ Ipratropium) 3 ml Q4H PRN HHN Shortness of Breath 01/07/18 21:00 01/12/18 20:59 Amlodipine Besylate (Norvasc) 5 mg Q12HR GT 01/07/18 21:00 02/06/18 00:25 01/09/18 09:37 Apixaban (Eliquis) 2.5 mg BID GT 01/08/18 09:00 02/06/18 08:59 01/09/18 09:37 Aspirin (ASA) 81 mg DAILY NG 01/09/18 09:00 02/08/18 08:59 01/09/18 09:37 Clonidine HCl (Catapres Tab) 0.1 mg Q4H PRN ORAL sbp more than 160 01/07/18 21:00 02/06/18 20:59 Dextrose 1,000 ml @ 100 mls/hr Q10H IV 01/07/18 21:00 02/06/18 01:44 01/09/18 13:18 Dextrose (Dextrose 50%) 25 ml STAT PRN IV Hypoglycemia 01/07/18 21:00 02/06/18 20:59 Dextrose (Dextrose 50%) 50 ml STAT PRN IV Hypoglycemia 01/07/18 21:00 02/06/18 20:59 Epoetin Wallace (Procrit (for non ESRD use)) 10,000 units MON-WED-FRI SUBQ 01/08/18 21:00 02/07/18 20:59 01/08/18 20:41 Ertapenem 0.5 gm/ Sodium Chloride 55 ml @ 110 mls/hr Q24H IVPB 01/08/18 09:00 01/11/18 10:00 01/09/18 09:36 Insulin Aspart (NovoLOG) 10 units NOVOTIAC SUBQ 01/09/18 06:30 02/06/18 11:49 01/09/18 11:46 Insulin Aspart (NovoLOG) Please send pen with patient... BEFORE MEALS AND HS SUBQ 01/07/18 21:00 02/06/18 00:26 01/09/18 11:55 Insulin Detemir (Levemir) 20 units BID SUBQ 01/09/18 09:00 02/06/18 08:59 01/09/18 09:42 Levetiracetam (Keppra) 750 mg Q12HR GT 01/07/18 21:00 02/06/18 00:25 01/09/18 09:37 Metoclopramide HCl (Reglan) 5 mg Q8HR GT 01/09/18 14:00 02/06/18 05:59 01/09/18 13:17 Nitroglycerin (Ntg) 0.4 mg Q5M X 3 DOSES PRN SL Prn Chest Pain 01/07/18 21:00 02/05/18 20:44 Nitroglycerin (Ntg) 1 patch Q24H TDERMAL 01/08/18 14:00 02/06/18 13:59 01/09/18 13:17 Ondansetron HCl (Zofran) 4 mg Q6H PRN IVP Nausea & Vomiting 01/07/18 21:00 02/06/18 20:59 Pantoprazole (Protonix) 40 mg DAILY IVP 01/10/18 09:00 02/06/18 01:59 Polyethylene Glycol (Miralax) 17 gm HSPRN PRN ORAL Constipation 01/07/18 21:00 02/06/18 20:59 Temazepam (Restoril) 15 mg HSPRN PRN ORAL Insomnia 01/07/18 21:00 01/14/18 20:59 Vancomycin HCl (Vanco rx to dose) 1 ea DAILY PRN MISC Per rx protocol 01/08/18 09:00 02/06/18 02:14 Item Value Date Time Bedside Blood Glucose 224 mg/dl H 01/09/18 1640 Bedside Blood Glucose 225 mg/dl H 01/09/18 1155 Bedside Blood Glucose 232 mg/dl H 01/09/18 0942 Bedside Blood Glucose 183 mg/dl H 01/09/18 0630 Bedside Blood Glucose 191 mg/dl H 01/08/18 2118 Kodak Villeda MD Jan 09, 2018 17:38
--- NOTE | 2018-01-09 20:52 | Infectious Diseases Prog Note ---
Assessment/Plan Problems: (1) UTI (urinary tract infection) Assessment & Plan: with H/O MDR organisms , now grew contaminants , will stop ertapenem, sacral wound culture grew proteus mirabilis , will give ceftriaxon for now (2) Sepsis Assessment & Plan: with gram positive cocci , grew from one bottle only , continue vancomycin empirically pending blood culture (3) Dehydration Assessment & Plan: continue IVF for hydration (4) CKD (chronic kidney disease) Assessment & Plan: worsening due to dehydration, continue IVF , renal is following (5) Diabetes Assessment & Plan: poorly controled , recommend tight glycemic control to keep blood glucose between 100-140 (6) Sacral decubitus ulcer, stage III Assessment & Plan: continue off loading , and local wound care as per hospital protocol Subjective ROS Limited/Unobtainable: Yes Allergies: Coded Allergies: No Known Allergies (Verified , 01/27/10) Subjective she was lying in bed , comfortable, unresponsive, afebrile , NAD Objective Vital Signs Last 24 Hour Vital Signs Date Time Temp Pulse Resp B/P (MAP) Pulse Ox O2 Delivery O2 Flow Rate FiO2 01/09/18 20:36 97.7 65 19 108/55 (72) 99 97.7 01/09/18 20:23 99 Nasal Cannula 2.0 28 01/09/18 20:23 Nasal Cannula 2.0 28 01/09/18 20:23 68 18 Nasal Cannula 2.0 28 01/09/18 20:16 97.7 65 19 91/57 (68) 99 97.7 01/09/18 16:00 98.6 64 21 127/77 (94) 100 98.6 01/09/18 13:17 124/77 01/09/18 12:00 97.7 93 21 124/77 (93) 100 97.7 01/09/18 09:37 64 108/68 01/09/18 09:22 66 20 Nasal Cannula 2.0 28 01/09/18 09:21 Nasal Cannula 2.0 01/09/18 09:21 98 Nasal Cannula 2.0 01/09/18 09:00 Nasal Cannula 2.0 01/09/18 08:00 98.3 64 21 108/68 (81) 100 98.3 01/09/18 04:00 97.4 75 21 119/68 (85) 100 97.4 01/09/18 00:00 98.9 78 20 141/66 (91) 98 98.9 01/08/18 21:00 Nasal Cannula 2.0 Height (Feet): 5 Height (Inches): 5.00 Weight (Pounds): 181 General Appearance: WD/WN, no acute distress HEENT: normocephalic, atraumatic, anicteric, other - tongue is sticking outside Respiratory/Chest: normal breath sounds, no respiratory distress, no accessory muscle use, decreased breath sounds Cardiovascular: normal peripheral pulses, normal rate, regular rhythm, no gallop/murmur, no JVD Abdomen: normal bowel sounds, soft, non tender, no organomegaly, non distended , no mass, no scars, other - G tube site is clean Extremities: no cyanosis, no clubbing Skin: no rash, no lesions, ulcers - sacrum pressure wound with no signs of infection Neurologic/Psychiatric: unresponsiveness Lymphatic: no neck adenopathy, no groin adenopathy Musculoskeletal: normal muscle bulk Microbiology Date/Time Source Procedure Growth Status 01/08/18 19:20 Stool Clostridium difficile Toxin Assay - Final Complete 01/06/18 21:02 Urine,Clean Catch Urine Culture - Final Mixed Urogenital Contaminants Complete 01/07/18 04:00 Sacral Wound Gram Stain - Final Resulted 01/07/18 04:00 Wound Culture - Preliminary Proteus Mirabilis Staphylococcus Aureus Resulted Laboratory Tests Test 01/09/18 05:00 C-Reactive Protein, Quantitative 6.4 mg/dL (0.00-0.90) H Random Vancomycin Level 10.1 ug/mL Current Medications Medications (Trade) Dose Ordered Sig/Nancy Route PRN Reason Start Time Stop Time Status Last Admin Dose Admin Acetaminophen (Tylenol) 650 mg Q4H PRN ORAL T>100.5 01/07/18 21:00 02/06/18 20:59 Albuterol/ Ipratropium (Albuterol/ Ipratropium) 3 ml Q4H PRN HHN Shortness of Breath 01/07/18 21:00 01/12/18 20:59 Amlodipine Besylate (Norvasc) 5 mg Q12HR GT 01/07/18 21:00 02/06/18 00:25 01/09/18 09:37 Apixaban (Eliquis) 2.5 mg BID GT 01/08/18 09:00 10/4/18 08:59 01/09/18 17:36 Aspirin (ASA) 81 mg DAILY NG 01/09/18 09:00 02/08/18 08:59 01/09/18 09:37 Clonidine HCl (Catapres Tab) 0.1 mg Q4H PRN ORAL sbp more than 160 01/07/18 21:00 02/06/18 20:59 Dextrose 1,000 ml @ 100 mls/hr Q10H IV 01/07/18 21:00 02/06/18 01:44 01/09/18 13:18 Dextrose (Dextrose 50%) 25 ml STAT PRN IV Hypoglycemia 01/07/18 21:00 02/06/18 20:59 Dextrose (Dextrose 50%) 50 ml STAT PRN IV Hypoglycemia 01/07/18 21:00 02/06/18 20:59 Epoetin Wallace (Procrit (for non ESRD use)) 10,000 units MON-SAT-SAT SUBQ 01/08/18 21:00 02/07/18 20:59 01/08/18 20:41 Ertapenem 0.5 gm/ Sodium Chloride 55 ml @ 110 mls/hr Q24H IVPB 01/08/18 09:00 01/11/18 10:00 01/09/18 09:36 Insulin Aspart (NovoLOG) 10 units NOVOTIAC SUBQ 01/09/18 06:30 02/06/18 11:49 01/09/18 11:46 Insulin Aspart (NovoLOG) Please send pen with patient... BEFORE MEALS AND HS SUBQ 01/07/18 21:00 02/06/18 00:26 01/09/18 11:55 Insulin Detemir (Levemir) 20 units BID SUBQ 01/09/18 09:00 02/06/18 08:59 01/09/18 17:37 Levetiracetam (Keppra) 750 mg Q12HR GT 01/07/18 21:00 02/06/18 00:25 01/09/18 09:37 Metoclopramide HCl (Reglan) 5 mg Q8HR GT 01/09/18 14:00 02/06/18 05:59 01/09/18 13:17 Nitroglycerin (Ntg) 0.4 mg Q5M X 3 DOSES PRN SL Prn Chest Pain 01/07/18 21:00 02/05/18 20:44 Nitroglycerin (Ntg) 1 patch Q24H TDERMAL 01/08/18 14:00 02/06/18 13:59 01/09/18 13:17 Ondansetron HCl (Zofran) 4 mg Q6H PRN IVP Nausea & Vomiting 01/07/18 21:00 02/06/18 20:59 Pantoprazole (Protonix) 40 mg DAILY IVP 01/10/18 09:00 02/06/18 01:59 Polyethylene Glycol (Miralax) 17 gm HSPRN PRN ORAL Constipation 01/07/18 21:00 02/06/18 20:59 Temazepam (Restoril) 15 mg HSPRN PRN ORAL Insomnia 01/07/18 21:00 01/14/18 20:59 Vancomycin HCl (Vanco rx to dose) 1 ea DAILY PRN MISC Per rx protocol 01/08/18 09:00 02/06/18 02:14 Ayala Forman M.D. Jan 09, 2018 20:52
[2018-01-09] MEDS ORDERED: cefTRIAXone 2 GM in D5W 55 ML IVPB SCH (22:00)
[2018-01-10 00:56] VITALS: BP 120/43
[2018-01-10 04:42] VITALS: BP 137/55
[2018-01-10 05:59] LABS: BASOPHILS % (AUTO) 0.6 % (0.0-2.0); EOSINOPHILS % (AUTO) 0.8 % (0.0-3.0); HEMATOCRIT 29.6 % (37.0-47.0); HEMOGLOBIN 10.2 G/DL (12.0-16.0); LYMPHOCYTES % (AUTO) 31.2 % (20.0-45.0); MEAN CORPUSCULAR VOLUME 94 FL (80-99); MONOCYTES % (AUTO) 4.2 % (1.0-10.0); NEUTROPHILS % (AUTO) 63.2 % (45.0-75.0); PLATELET COUNT 104 K/UL (150-450); RED BLOOD COUNT 3.15 M/UL (4.20-5.40); RED CELL DISTRIBUTION WIDTH 15.8 % (11.6-14.8); WHITE BLOOD COUNT 9.3 K/UL (4.8-10.8)
[2018-01-10] MEDS: Metoclopramide 10mg/10ml Liq GT SCH ×2 (06:16→14:20)
[2018-01-10] MEDS: NovoLOG Insulin Flexpen SUBQ SCH ×7 (06:18→21:00)
[2018-01-10 06:24] LABS: ALANINE AMINOTRANSFERASE 21 U/L (12-78); ALBUMIN 2.7 G/DL (3.4-5.0); ALBUMIN/GLOBULIN RATIO 0.5 (1.0-2.7); ALKALINE PHOSPHATASE 91 U/L (46-116); ANION GAP 15 mmol/L (5-15); ASPARTATE AMINO TRANSFERASE 38 U/L (15-37); BILIRUBIN,TOTAL 0.3 MG/DL (0.2-1.0); BLOOD UREA NITROGEN 64 mg/dL (7-18); CALCIUM 7.8 MG/DL (8.5-10.1); CARBON DIOXIDE 21 MMOL/L (21-32); CHLORIDE 111 MMOL/L (98-107); CREATININE 2.6 MG/DL (0.55-1.30); GAMMA GLUTAMYL TRANSPEPTIDASE 22 U/L (5-85); PHOSPHORUS 3.9 MG/DL (2.5-4.9); POTASSIUM 3.5 MMOL/L (3.5-5.1); SODIUM 147 MMOL/L (136-145)
[2018-01-10 08:00] VITALS: BP 123/60
[2018-01-10] MEDS ORDERED: Pantoprazole Inj IVP SCH (09:00)
[2018-01-10] MEDS: Aspirin Baby 81mg NG SCH (09:18)
[2018-01-10] MEDS: Eliquis 2.5mg tablet GT SCH ×2 (09:19→17:34)
[2018-01-10] MEDS: levETIRAcetam 500mg/5ml Liquid GT SCH ×2 (09:19→21:20)
[2018-01-10] MEDS: Levemir Flexpen SUBQ SCH ×2 (09:23→17:36)
[2018-01-10 12:00] VITALS: BP 123/74
--- NOTE | 2018-01-10 12:45 | General Progress Note ---
Assessment/Plan Problem List: (1) ATN (acute tubular necrosis) ICD Codes: N17.0 - Acute kidney failure with tubular necrosis SNOMED: 19410370 (2) G tube feedings ICD Codes: Z93.1 - G tube feedings SNOMED: 049251423 (3) Dehydration ICD Codes: E86.0 - Dehydration SNOMED: 74670408 (4) Hyperglycemia ICD Codes: R73.9 - Hyperglycemia, unspecified SNOMED: 51459145 (5) Dementia ICD Codes: F03.90 - Dementia SNOMED: 89771069 (6) UTI (urinary tract infection) (7) Anemia ICD Codes: D64.9 - Anemia, unspecified SNOMED: 165142409 (8) Functional quadriplegia ICD Codes: R53.2 - Functional quadriplegia SNOMED: 725223781756739 Status: stable Assessment/Plan DC IV fluids antibiotics- transfused GT feeding BS and BP check and medication adjustment per consultants DC planning- will discuss with ID Subjective ROS Limited/Unobtainable: No Constitutional: Reports: malaise, weakness Allergies: Coded Allergies: No Known Allergies (Verified , 01/27/10) Objective Last 24 Hour Vital Signs Date Time Temp Pulse Resp B/P (MAP) Pulse Ox O2 Delivery O2 Flow Rate FiO2 01/10/18 12:00 99.9 68 20 123/74 (90) 97 99.9 01/10/18 10:13 99.7 01/10/18 09:43 100.0 01/10/18 09:18 85 123/60 01/10/18 09:00 Nasal Cannula 2.0 01/10/18 08:00 100.0 85 20 123/60 (81) 100.0 01/10/18 04:42 100.0 95 19 137/55 (82) 100 100.0 01/10/18 01:24 100.6 01/10/18 00:56 87 20 120/43 (68) 97 01/09/18 21:00 65 108/55 01/09/18 21:00 Nasal Cannula 2.0 01/09/18 20:36 97.7 65 19 108/55 (72) 99 97.7 01/09/18 20:23 99 Nasal Cannula 2.0 28 01/09/18 20:23 Nasal Cannula 2.0 28 01/09/18 20:23 68 18 Nasal Cannula 2.0 28 01/09/18 20:16 97.7 65 19 91/57 (68) 99 97.7 01/09/18 16:00 98.6 64 21 127/77 (94) 100 98.6 01/09/18 13:17 124/77 Intake and Output 01/09/18 01/10/18 19:00 07:00 Intake Total 470 ml 1065 ml Output Total 800 ml Balance -330 ml 1065 ml Intake Free Water 100 ml 150 ml IV Total 100 ml 555 ml Tube Feeding 270 ml 360 ml Output Urine Total 800 ml # Bowel Movements 4 Laboratory Tests 01/10/18 04:55: White Blood Count 9.3, Red Blood Count 3.15L, Hemoglobin 10.2L, Hematocrit 29.6L , Mean Corpuscular Volume 94, Mean Corpuscular Hemoglobin 32.3H, Mean Corpuscular Hemoglobin Concent 34.5, Red Cell Distribution Width 15.8H, Platelet Count 104L, Mean Platelet Volume 11.9H, Neutrophils (%) (Auto) 63.2, Lymphocytes (%) (Auto) 31.2, Monocytes (%) (Auto) 4.2, Eosinophils (%) (Auto) 0.8, Basophils (%) (Auto) 0.6, Sodium Level 147H, Potassium Level 3.5, Chloride Level 111H, Carbon Dioxide Level 21, Anion Gap 15, Blood Urea Nitrogen 64H, Creatinine 2.6H, Estimat Glomerular Filtration Rate , Glucose Level 220H, Uric Acid 6.9, Calcium Level 7.8L, Phosphorus Level 3.9, Magnesium Level 3.0H, Total Bilirubin 0.3, Gamma Glutamyl Transpeptidase 22, Aspartate Amino Transf (AST/ SGOT) 38H, Alanine Aminotransferase (ALT/SGPT) 21, Alkaline Phosphatase 91, Pro- B-Type Natriuretic Peptide 916H, Total Protein 8.5H, Albumin 2.7L, Globulin 5.8 , Albumin/Globulin Ratio 0.5L Height (Feet): 5 Height (Inches): 5.00 Weight (Pounds): 181 General Appearance: no apparent distress, lethargic Cardiovascular: normal rate Respiratory/Chest: decreased breath sounds Abdomen: distended Objective no other changes Estevan Orozco MD Jan 10, 2018 12:45
--- NOTE | 2018-01-10 12:50 | GI Progress Note ---
Assessment/Plan Problems: (1) Anemia ICD Codes: D64.9 - Anemia, unspecified SNOMED: 548076164 (2) Malfunction of gastrostomy tube ICD Codes: K94.23 - Gastrostomy malfunction SNOMED: 605659837 (3) Dehydration ICD Codes: E86.0 - Dehydration SNOMED: 35967562 (4) G tube feedings ICD Codes: Z93.1 - G tube feedings SNOMED: 975664292 (5) Diabetes ICD Codes: E11.9 - Type 2 diabetes mellitus without complications SNOMED: 25873980 (6) Dementia ICD Codes: F03.90 - Dementia SNOMED: 94080024 Status: stable, unchanged Status Narrative Discussed with Dr. Arana. Assessment/Plan GT 20french changed at bedside, okay to use. GTFs held due to high residual, start at lower rate and increase to goal cont reglan 5mg GT, will increase if GTF residuals are high anemia work up reviewed DM management electrolyte correction ppi prn transfusions fu labs The patient was seen and examined at bedside and all new and available data was reviewed in the patients chart. I agree with the above findings, impression and plan. (Patient seen earlier today. Signature stamp does not reflect patient encounter time.). - Jamaal Arana MD Subjective Subjective limited Objective Last 24 Hour Vital Signs Date Time Temp Pulse Resp B/P (MAP) Pulse Ox O2 Delivery O2 Flow Rate FiO2 01/10/18 12:00 99.9 68 20 123/74 (90) 97 99.9 01/10/18 10:13 99.7 01/10/18 09:43 100.0 01/10/18 09:18 85 123/60 01/10/18 09:00 Nasal Cannula 2.0 01/10/18 08:00 100.0 85 20 123/60 (81) 100.0 01/10/18 04:42 100.0 95 19 137/55 (82) 100 100.0 01/10/18 01:24 100.6 01/10/18 00:56 87 20 120/43 (68) 97 01/09/18 21:00 65 108/55 01/09/18 21:00 Nasal Cannula 2.0 01/09/18 20:36 97.7 65 19 108/55 (72) 99 97.7 01/09/18 20:23 99 Nasal Cannula 2.0 28 01/09/18 20:23 Nasal Cannula 2.0 28 01/09/18 20:23 68 18 Nasal Cannula 2.0 28 01/09/18 20:16 97.7 65 19 91/57 (68) 99 97.7 01/09/18 16:00 98.6 64 21 127/77 (94) 100 98.6 01/09/18 13:17 124/77 Intake and Output 01/09/18 01/10/18 19:00 07:00 Intake Total 470 ml 1065 ml Output Total 800 ml Balance -330 ml 1065 ml Intake Free Water 100 ml 150 ml IV Total 100 ml 555 ml Tube Feeding 270 ml 360 ml Output Urine Total 800 ml # Bowel Movements 4 Laboratory Tests Test 01/10/18 04:55 White Blood Count 9.3 K/UL (4.8-10.8) Red Blood Count 3.15 M/UL (4.20-5.40) L Hemoglobin 10.2 G/DL (12.0-16.0) L Hematocrit 29.6 % (37.0-47.0) L Mean Corpuscular Volume 94 FL (80-99) Mean Corpuscular Hemoglobin 32.3 PG (27.0-31.0) H Mean Corpuscular Hemoglobin Concent 34.5 G/DL (32.0-36.0) Red Cell Distribution Width 15.8 % (11.6-14.8) H Platelet Count 104 K/UL (150-450) L Mean Platelet Volume 11.9 FL (6.5-10.1) H Neutrophils (%) (Auto) 63.2 % (45.0-75.0) Lymphocytes (%) (Auto) 31.2 % (20.0-45.0) Monocytes (%) (Auto) 4.2 % (1.0-10.0) Eosinophils (%) (Auto) 0.8 % (0.0-3.0) Basophils (%) (Auto) 0.6 % (0.0-2.0) Sodium Level 147 MMOL/L (136-145) H Potassium Level 3.5 MMOL/L (3.5-5.1) Chloride Level 111 MMOL/L (98-107) H Carbon Dioxide Level 21 MMOL/L (21-32) Anion Gap 15 mmol/L (5-15) Blood Urea Nitrogen 64 mg/dL (7-18) H Creatinine 2.6 MG/DL (0.55-1.30) H Estimat Glomerular Filtration Rate mL/min (>60) Glucose Level 220 MG/DL (74-106) H Uric Acid 6.9 MG/DL (2.6-7.2) Calcium Level 7.8 MG/DL (8.5-10.1) L Phosphorus Level 3.9 MG/DL (2.5-4.9) Magnesium Level 3.0 MG/DL (1.8-2.4) H Total Bilirubin 0.3 MG/DL (0.2-1.0) Gamma Glutamyl Transpeptidase 22 U/L (5-85) Aspartate Amino Transf (AST/SGOT) 38 U/L (15-37) H Alanine Aminotransferase (ALT/SGPT) 21 U/L (12-78) Alkaline Phosphatase 91 U/L (46-116) Pro-B-Type Natriuretic Peptide 916 pg/mL (0-125) H Total Protein 8.5 G/DL (6.4-8.2) H Albumin 2.7 G/DL (3.4-5.0) L Globulin 5.8 g/dL Albumin/Globulin Ratio 0.5 (1.0-2.7) L Height (Feet): 5 Height (Inches): 5.00 Weight (Pounds): 181 General Appearance: no apparent distress Cardiovascular: normal rate Respiratory/Chest: normal breath sounds, no respiratory distress Abdominal Exam: normal bowel sounds, non tender, soft Extremities: non-tender Justus Foreman NP Jan 10, 2018 12:50
--- NOTE | 2018-01-10 12:52 | General Surgery Progress Note ---
General Surgery-Progress Note Subjective Symptoms: improved Additional Comments no acute events. Objective Last 24 Hour Vital Signs Date Time Temp Pulse Resp B/P (MAP) Pulse Ox O2 Delivery O2 Flow Rate FiO2 01/10/18 12:00 99.9 68 20 123/74 (90) 97 99.9 01/10/18 10:13 99.7 01/10/18 09:43 100.0 01/10/18 09:18 85 123/60 01/10/18 09:00 Nasal Cannula 2.0 01/10/18 08:00 100.0 85 20 123/60 (81) 100.0 01/10/18 04:42 100.0 95 19 137/55 (82) 100 100.0 01/10/18 01:24 100.6 01/10/18 00:56 87 20 120/43 (68) 97 01/09/18 21:00 65 108/55 01/09/18 21:00 Nasal Cannula 2.0 01/09/18 20:36 97.7 65 19 108/55 (72) 99 97.7 01/09/18 20:23 99 Nasal Cannula 2.0 28 01/09/18 20:23 Nasal Cannula 2.0 28 01/09/18 20:23 68 18 Nasal Cannula 2.0 28 01/09/18 20:16 97.7 65 19 91/57 (68) 99 97.7 01/09/18 16:00 98.6 64 21 127/77 (94) 100 98.6 01/09/18 13:17 124/77 I&O Intake and Output 01/09/18 01/10/18 19:00 07:00 Intake Total 470 ml 1065 ml Output Total 800 ml Balance -330 ml 1065 ml Intake Free Water 100 ml 150 ml IV Total 100 ml 555 ml Tube Feeding 270 ml 360 ml Output Urine Total 800 ml # Bowel Movements 4 Wound: clean, other Drains: none Cardiovascular: RSR Respiratory: clear Abdomen: soft, flat, non-tender, present bowel sounds Extremities: edema, no tenderness Laboratory Tests Test 01/10/18 04:55 White Blood Count 9.3 K/UL (4.8-10.8) Red Blood Count 3.15 M/UL (4.20-5.40) L Hemoglobin 10.2 G/DL (12.0-16.0) L Hematocrit 29.6 % (37.0-47.0) L Mean Corpuscular Volume 94 FL (80-99) Mean Corpuscular Hemoglobin 32.3 PG (27.0-31.0) H Mean Corpuscular Hemoglobin Concent 34.5 G/DL (32.0-36.0) Red Cell Distribution Width 15.8 % (11.6-14.8) H Platelet Count 104 K/UL (150-450) L Mean Platelet Volume 11.9 FL (6.5-10.1) H Neutrophils (%) (Auto) 63.2 % (45.0-75.0) Lymphocytes (%) (Auto) 31.2 % (20.0-45.0) Monocytes (%) (Auto) 4.2 % (1.0-10.0) Eosinophils (%) (Auto) 0.8 % (0.0-3.0) Basophils (%) (Auto) 0.6 % (0.0-2.0) Sodium Level 147 MMOL/L (136-145) H Potassium Level 3.5 MMOL/L (3.5-5.1) Chloride Level 111 MMOL/L (98-107) H Carbon Dioxide Level 21 MMOL/L (21-32) Anion Gap 15 mmol/L (5-15) Blood Urea Nitrogen 64 mg/dL (7-18) H Creatinine 2.6 MG/DL (0.55-1.30) H Estimat Glomerular Filtration Rate mL/min (>60) Glucose Level 220 MG/DL (74-106) H Uric Acid 6.9 MG/DL (2.6-7.2) Calcium Level 7.8 MG/DL (8.5-10.1) L Phosphorus Level 3.9 MG/DL (2.5-4.9) Magnesium Level 3.0 MG/DL (1.8-2.4) H Total Bilirubin 0.3 MG/DL (0.2-1.0) Gamma Glutamyl Transpeptidase 22 U/L (5-85) Aspartate Amino Transf (AST/SGOT) 38 U/L (15-37) H Alanine Aminotransferase (ALT/SGPT) 21 U/L (12-78) Alkaline Phosphatase 91 U/L (46-116) Pro-B-Type Natriuretic Peptide 916 pg/mL (0-125) H Total Protein 8.5 G/DL (6.4-8.2) H Albumin 2.7 G/DL (3.4-5.0) L Globulin 5.8 g/dL Albumin/Globulin Ratio 0.5 (1.0-2.7) L Plan Problems: (1) Sepsis (2) Sacral decubitus ulcer, stage III Assessment & Plan: Stage III sacral full thickness pressure injury to sacrum (L )8cm x (W)6.2cm .full thickness injury at coccygeal area with approx 10% slough centrally with pink epithelialized borders.No odor or exudate noted. Full thickness ulcer noted to lateral R tibia(L)2cm x (W)1.4cm .Wound bed with approx 20% mixed slough /necrosis otherwise red with macerated borders .Scant non-odorous serous exudate noted to drsg upon removal. Periwound skin is dry. No edema noted. R heel soft but blanchable. Tx Plan: Cleanse Sacral wound with Saline ;Apply Triad Paste to sacral wound.Cavilon wipe Periwound and cover with Biatain drsg every other day and prn. Cleanse wound lateral RLE with saline.Apply Silvasorb Gel. Cavilon wipe to borders and cover with Biatain drsg every other day and prn. Recommend Surface support overlay on bed. Reposition at minimum every 2hours as tolerated. Off-load R heel with pillow Patient presented with above wound. Was seen as stage II prior and currently with stage III in small portion of wound. Taco Carter Jan 10, 2018 12:52
--- NOTE | 2018-01-10 13:22 | General Progress Note ---
Assessment/Plan Problem List: (1) CKD (chronic kidney disease) ICD Codes: N18.9 - Chronic kidney disease, unspecified SNOMED: 955142421 Qualifiers: Qualified Codes: N18.9 - Chronic kidney disease, unspecified (2) Hypernatremia ICD Codes: E87.0 - Hyperosmolality and hypernatremia SNOMED: 30321135 (3) Diabetes ICD Codes: E11.9 - Type 2 diabetes mellitus without complications SNOMED: 85304646 Assessment/Plan increase Levemir to 24 units bid increase Novolog to 12 units ac tid + SSI Subjective Allergies: Coded Allergies: No Known Allergies (Verified , 01/27/10) All Systems: reviewed and negative except above Subjective events noted Objective Last 24 Hour Vital Signs Date Time Temp Pulse Resp B/P (MAP) Pulse Ox O2 Delivery O2 Flow Rate FiO2 01/10/18 12:00 99.9 68 20 123/74 (90) 97 99.9 01/10/18 10:13 99.7 01/10/18 09:43 100.0 01/10/18 09:18 85 123/60 01/10/18 09:00 Nasal Cannula 2.0 01/10/18 08:00 100.0 85 20 123/60 (81) 100.0 01/10/18 04:42 100.0 95 19 137/55 (82) 100 100.0 01/10/18 01:24 100.6 01/10/18 00:56 87 20 120/43 (68) 97 01/09/18 21:00 65 108/55 01/09/18 21:00 Nasal Cannula 2.0 01/09/18 20:36 97.7 65 19 108/55 (72) 99 97.7 01/09/18 20:23 99 Nasal Cannula 2.0 28 01/09/18 20:23 Nasal Cannula 2.0 28 01/09/18 20:23 68 18 Nasal Cannula 2.0 28 01/09/18 20:16 97.7 65 19 91/57 (68) 99 97.7 01/09/18 16:00 98.6 64 21 127/77 (94) 100 98.6 Intake and Output 01/09/18 01/10/18 19:00 07:00 Intake Total 470 ml 1065 ml Output Total 800 ml Balance -330 ml 1065 ml Intake Free Water 100 ml 150 ml IV Total 100 ml 555 ml Tube Feeding 270 ml 360 ml Output Urine Total 800 ml # Bowel Movements 4 Laboratory Tests 01/10/18 04:55: White Blood Count 9.3, Red Blood Count 3.15L, Hemoglobin 10.2L, Hematocrit 29.6L , Mean Corpuscular Volume 94, Mean Corpuscular Hemoglobin 32.3H, Mean Corpuscular Hemoglobin Concent 34.5, Red Cell Distribution Width 15.8H, Platelet Count 104L, Mean Platelet Volume 11.9H, Neutrophils (%) (Auto) 63.2, Lymphocytes (%) (Auto) 31.2, Monocytes (%) (Auto) 4.2, Eosinophils (%) (Auto) 0.8, Basophils (%) (Auto) 0.6, Sodium Level 147H, Potassium Level 3.5, Chloride Level 111H, Carbon Dioxide Level 21, Anion Gap 15, Blood Urea Nitrogen 64H, Creatinine 2.6H, Estimat Glomerular Filtration Rate , Glucose Level 220H, Uric Acid 6.9, Calcium Level 7.8L, Phosphorus Level 3.9, Magnesium Level 3.0H, Total Bilirubin 0.3, Gamma Glutamyl Transpeptidase 22, Aspartate Amino Transf (AST/ SGOT) 38H, Alanine Aminotransferase (ALT/SGPT) 21, Alkaline Phosphatase 91, Pro- B-Type Natriuretic Peptide 916H, Total Protein 8.5H, Albumin 2.7L, Globulin 5.8 , Albumin/Globulin Ratio 0.5L Height (Feet): 5 Height (Inches): 5.00 Weight (Pounds): 181 General Appearance: no apparent distress Neck: normal alignment Cardiovascular: normal rate Respiratory/Chest: chest wall non-tender Objective Current Medications Medications (Trade) Dose Ordered Sig/Nancy Route PRN Reason Start Time Stop Time Status Last Admin Dose Admin Acetaminophen (Tylenol) 650 mg Q4H PRN ORAL T>100.5 01/07/18 21:00 02/06/18 20:59 01/10/18 09:43 Albuterol/ Ipratropium (Albuterol/ Ipratropium) 3 ml Q4H PRN HHN Shortness of Breath 01/07/18 21:00 01/12/18 20:59 Amlodipine Besylate (Norvasc) 5 mg Q12HR GT 01/07/18 21:00 02/06/18 00:25 01/10/18 09:18 Apixaban (Eliquis) 2.5 mg BID GT 01/08/18 09:00 02/06/18 08:59 01/10/18 09:19 Aspirin (ASA) 81 mg DAILY NG 01/09/18 09:00 02/08/18 08:59 01/10/18 09:18 Ceftriaxone Sodium 2 gm/ Dextrose 55 ml @ 110 mls/hr Q24H IVPB 01/09/18 22:00 01/16/18 21:59 01/09/18 21:56 Clonidine HCl (Catapres Tab) 0.1 mg Q4H PRN ORAL sbp more than 160 01/07/18 21:00 02/06/18 20:59 Dextrose (Dextrose 50%) 25 ml STAT PRN IV Hypoglycemia 01/07/18 21:00 02/06/18 20:59 Dextrose (Dextrose 50%) 50 ml STAT PRN IV Hypoglycemia 01/07/18 21:00 02/06/18 20:59 Epoetin Wallace (Procrit (for non ESRD use)) 10,000 units SAT-SAT-SAT SUBQ 01/08/18 21:00 02/07/18 20:59 01/08/18 20:41 Insulin Aspart (NovoLOG) 10 units NOVOTIAC SUBQ 01/09/18 06:30 02/06/18 11:49 01/10/18 11:41 Insulin Aspart (NovoLOG) Please send pen with patient... BEFORE MEALS AND HS SUBQ 01/07/18 21:00 02/06/18 00:26 01/10/18 11:40 Insulin Detemir (Levemir) 20 units BID SUBQ 01/09/18 09:00 02/06/18 08:59 01/10/18 09:23 Levetiracetam (Keppra) 750 mg Q12HR GT 01/07/18 21:00 02/06/18 00:25 01/10/18 09:19 Metoclopramide HCl (Reglan) 5 mg Q8HR GT 01/09/18 14:00 02/06/18 05:59 01/10/18 06:16 Nitroglycerin (Ntg) 0.4 mg Q5M X 3 DOSES PRN SL Prn Chest Pain 01/07/18 21:00 10/3/18 20:44 Nitroglycerin (Ntg) 1 patch Q24H TDERMAL 01/08/18 14:00 02/06/18 13:59 01/09/18 13:17 Ondansetron HCl (Zofran) 4 mg Q6H PRN IVP Nausea & Vomiting 01/07/18 21:00 02/06/18 20:59 Pantoprazole (Protonix) 40 mg Q12HR ORAL 01/10/18 21:00 02/09/18 20:59 UNV Polyethylene Glycol (Miralax) 17 gm HSPRN PRN ORAL Constipation 01/07/18 21:00 02/06/18 20:59 Temazepam (Restoril) 15 mg HSPRN PRN ORAL Insomnia 01/07/18 21:00 01/14/18 20:59 Vancomycin HCl (Vanco rx to dose) 1 ea DAILY PRN MISC Per rx protocol 01/08/18 09:00 02/06/18 02:14 Item Value Date Time Bedside Blood Glucose 229 mg/dl H 01/10/18 1141 Bedside Blood Glucose 197 mg/dl H 01/10/18 0923 Bedside Blood Glucose 229 mg/dl H 01/10/18 0630 Bedside Blood Glucose 221 mg/dl H 01/09/18 2156 Bedside Blood Glucose 224 mg/dl H 01/09/18 1737 Bedside Blood Glucose 225 mg/dl H 01/09/18 1155 Bedside Blood Glucose 232 mg/dl H 01/09/18 0942 Kodak Villeda MD Jan 10, 2018 13:22
[2018-01-10] MEDS: Nitroglycerin Patch 0.4mg TDERMAL SCH (14:20)
--- NOTE | 2018-01-10 14:40 | Infectious Diseases Prog Note ---
Assessment/Plan Problems: (1) Aspiration pneumonia Assessment & Plan: with productive cough and fever, will start meropenem and continue vancomycin empirically, will send sputum culture and obtain CXR to evaluate for new infiltrates (2) Sepsis Assessment & Plan: with gram positive cocci , grew from one bottle only , on vancomycin empirically pending blood culture , will repeat blood culture to confirm (3) CKD (chronic kidney disease) Assessment & Plan: worsening due to dehydration, continue IVF , renal is following (4) Diabetes Assessment & Plan: poorly controled , recommend tight glycemic control to keep blood glucose between 100-140 (5) Sacral decubitus ulcer, stage III Assessment & Plan: continue off loading , and local wound care as per hospital protocol (6) Fever Assessment & Plan: due to the above , will send blood culture and broaden her coverage Subjective ROS Limited/Unobtainable: Yes Respiratory: Reports: productive cough Allergies: Coded Allergies: No Known Allergies (Verified , 01/27/10) Subjective she was coughing yellowish phlegm and has oral secretions , lying in bed comfortable, unresponsive, had fever today , NAD Objective Vital Signs Last 24 Hour Vital Signs Date Time Temp Pulse Resp B/P (MAP) Pulse Ox O2 Delivery O2 Flow Rate FiO2 01/10/18 14:20 123/74 01/10/18 12:00 99.9 68 20 123/74 (90) 97 99.9 01/10/18 10:13 99.7 01/10/18 09:43 100.0 01/10/18 09:18 85 123/60 01/10/18 09:00 Nasal Cannula 2.0 01/10/18 08:00 100.0 85 20 123/60 (81) 100.0 01/10/18 04:42 100.0 95 19 137/55 (82) 100 100.0 01/10/18 01:24 100.6 01/10/18 00:56 87 20 120/43 (68) 97 01/09/18 21:00 65 108/55 01/09/18 21:00 Nasal Cannula 2.0 01/09/18 20:36 97.7 65 19 108/55 (72) 99 97.7 01/09/18 20:23 99 Nasal Cannula 2.0 28 01/09/18 20:23 Nasal Cannula 2.0 28 01/09/18 20:23 68 18 Nasal Cannula 2.0 28 01/09/18 20:16 97.7 65 19 91/57 (68) 99 97.7 01/09/18 16:00 98.6 64 21 127/77 (94) 100 98.6 Height (Feet): 5 Height (Inches): 5.00 Weight (Pounds): 181 General Appearance: WD/WN, no acute distress HEENT: normocephalic, atraumatic, anicteric, mucous membranes moist, supple, no JVD Respiratory/Chest: chest wall non-tender, no respiratory distress, no accessory muscle use, decreased breath sounds, crackles/rales Cardiovascular: normal peripheral pulses, normal rate, regular rhythm, no gallop/murmur, no JVD Abdomen: normal bowel sounds, soft, non tender, no organomegaly, non distended , no mass, no scars Extremities: no cyanosis, no clubbing Skin: no rash, no lesions, ulcers - sacral pressure wound Neurologic/Psychiatric: unresponsiveness Lymphatic: no neck adenopathy, no groin adenopathy Musculoskeletal: normal muscle bulk, no effusion Microbiology Date/Time Source Procedure Growth Status 01/08/18 19:20 Stool Clostridium difficile Toxin Assay - Final Complete Laboratory Tests Test 01/10/18 04:55 White Blood Count 9.3 K/UL (4.8-10.8) Red Blood Count 3.15 M/UL (4.20-5.40) L Hemoglobin 10.2 G/DL (12.0-16.0) L Hematocrit 29.6 % (37.0-47.0) L Mean Corpuscular Volume 94 FL (80-99) Mean Corpuscular Hemoglobin 32.3 PG (27.0-31.0) H Mean Corpuscular Hemoglobin Concent 34.5 G/DL (32.0-36.0) Red Cell Distribution Width 15.8 % (11.6-14.8) H Platelet Count 104 K/UL (150-450) L Mean Platelet Volume 11.9 FL (6.5-10.1) H Neutrophils (%) (Auto) 63.2 % (45.0-75.0) Lymphocytes (%) (Auto) 31.2 % (20.0-45.0) Monocytes (%) (Auto) 4.2 % (1.0-10.0) Eosinophils (%) (Auto) 0.8 % (0.0-3.0) Basophils (%) (Auto) 0.6 % (0.0-2.0) Sodium Level 147 MMOL/L (136-145) H Potassium Level 3.5 MMOL/L (3.5-5.1) Chloride Level 111 MMOL/L (98-107) H Carbon Dioxide Level 21 MMOL/L (21-32) Anion Gap 15 mmol/L (5-15) Blood Urea Nitrogen 64 mg/dL (7-18) H Creatinine 2.6 MG/DL (0.55-1.30) H Estimat Glomerular Filtration Rate mL/min (>60) Glucose Level 220 MG/DL (74-106) H Uric Acid 6.9 MG/DL (2.6-7.2) Calcium Level 7.8 MG/DL (8.5-10.1) L Phosphorus Level 3.9 MG/DL (2.5-4.9) Magnesium Level 3.0 MG/DL (1.8-2.4) H Total Bilirubin 0.3 MG/DL (0.2-1.0) Gamma Glutamyl Transpeptidase 22 U/L (5-85) Aspartate Amino Transf (AST/SGOT) 38 U/L (15-37) H Alanine Aminotransferase (ALT/SGPT) 21 U/L (12-78) Alkaline Phosphatase 91 U/L (46-116) Pro-B-Type Natriuretic Peptide 916 pg/mL (0-125) H Total Protein 8.5 G/DL (6.4-8.2) H Albumin 2.7 G/DL (3.4-5.0) L Globulin 5.8 g/dL Albumin/Globulin Ratio 0.5 (1.0-2.7) L Current Medications Medications (Trade) Dose Ordered Sig/Nancy Route PRN Reason Start Time Stop Time Status Last Admin Dose Admin Acetaminophen (Tylenol) 650 mg Q4H PRN ORAL T>100.5 01/07/18 21:00 02/06/18 20:59 01/10/18 09:43 Albuterol/ Ipratropium (Albuterol/ Ipratropium) 3 ml Q4H PRN HHN Shortness of Breath 01/07/18 21:00 01/12/18 20:59 Amlodipine Besylate (Norvasc) 5 mg Q12HR GT 01/07/18 21:00 02/06/18 00:25 01/10/18 09:18 Apixaban (Eliquis) 2.5 mg BID GT 01/08/18 09:00 02/06/18 08:59 01/10/18 09:19 Aspirin (ASA) 81 mg DAILY NG 01/09/18 09:00 02/08/18 08:59 01/10/18 09:18 Ceftriaxone Sodium 2 gm/ Dextrose 55 ml @ 110 mls/hr Q24H IVPB 01/09/18 22:00 01/16/18 21:59 01/09/18 21:56 Clonidine HCl (Catapres Tab) 0.1 mg Q4H PRN ORAL sbp more than 160 01/07/18 21:00 02/06/18 20:59 Dextrose (Dextrose 50%) 25 ml STAT PRN IV Hypoglycemia 01/07/18 21:00 02/06/18 20:59 Dextrose (Dextrose 50%) 50 ml STAT PRN IV Hypoglycemia 01/07/18 21:00 02/06/18 20:59 Epoetin Wallace (Procrit (for non ESRD use)) 10,000 units MON-WED-FRI SUBQ 01/08/18 21:00 02/07/18 20:59 01/08/18 20:41 Insulin Aspart (NovoLOG) 12 units NOVOTIAC SUBQ 01/10/18 16:50 02/06/18 11:49 Insulin Aspart (NovoLOG) Please send pen with patient... BEFORE MEALS AND HS SUBQ 01/07/18 21:00 02/06/18 00:26 01/10/18 11:40 Insulin Detemir (Levemir) 24 units BID SUBQ 01/10/18 18:00 02/06/18 08:59 Levetiracetam (Keppra) 750 mg Q12HR GT 01/07/18 21:00 02/06/18 00:25 01/10/18 09:19 Metoclopramide HCl (Reglan) 5 mg Q8HR GT 01/09/18 14:00 02/06/18 05:59 01/10/18 14:20 Nitroglycerin (Ntg) 0.4 mg Q5M X 3 DOSES PRN SL Prn Chest Pain 01/07/18 21:00 02/05/18 20:44 Nitroglycerin (Ntg) 1 patch Q24H TDERMAL 01/08/18 14:00 02/06/18 13:59 01/10/18 14:20 Ondansetron HCl (Zofran) 4 mg Q6H PRN IVP Nausea & Vomiting 01/07/18 21:00 02/06/18 20:59 Pantoprazole (Protonix) 40 mg Q12HR ORAL 01/10/18 21:00 02/09/18 20:59 UNV Polyethylene Glycol (Miralax) 17 gm HSPRN PRN ORAL Constipation 01/07/18 21:00 02/06/18 20:59 Temazepam (Restoril) 15 mg HSPRN PRN ORAL Insomnia 01/07/18 21:00 01/14/18 20:59 Vancomycin HCl (Vanco rx to dose) 1 ea DAILY PRN MISC Per rx protocol 01/08/18 09:00 02/06/18 02:14 Ayala Forman M.D. Jan 10, 2018 14:40
--- NOTE | 2018-01-10 14:51 | Pulmonology Progress Note ---
Assessment/Plan Problems: (1) Sepsis (2) ATN (acute tubular necrosis) (3) Hyperglycemia (4) G tube feedings (5) Decubital ulcer (6) Functional quadriplegia (7) Seizure disorder (8) Sacral decubitus ulcer, stage III Assessment/Plan cxr might be fluid overloaded iv fluids check electrolytes, BUN/creatinine decreasing sliding scale diabetic diet f/u ID and endo recommendations Subjective ROS Limited/Unobtainable: No Constitutional: Reports: no symptoms HEENT: Repors: no symptoms Respiratory: Reports: no symptoms Allergies: Coded Allergies: No Known Allergies (Verified , 01/27/10) Objective Last 24 Hour Vital Signs Date Time Temp Pulse Resp B/P (MAP) Pulse Ox O2 Delivery O2 Flow Rate FiO2 01/10/18 14:20 123/74 01/10/18 12:00 99.9 68 20 123/74 (90) 97 99.9 01/10/18 10:13 99.7 01/10/18 09:43 100.0 01/10/18 09:18 85 123/60 01/10/18 09:00 Nasal Cannula 2.0 01/10/18 08:00 100.0 85 20 123/60 (81) 100.0 01/10/18 04:42 100.0 95 19 137/55 (82) 100 100.0 01/10/18 01:24 100.6 01/10/18 00:56 87 20 120/43 (68) 97 01/09/18 21:00 65 108/55 01/09/18 21:00 Nasal Cannula 2.0 01/09/18 20:36 97.7 65 19 108/55 (72) 99 97.7 01/09/18 20:23 99 Nasal Cannula 2.0 28 01/09/18 20:23 Nasal Cannula 2.0 28 01/09/18 20:23 68 18 Nasal Cannula 2.0 28 01/09/18 20:16 97.7 65 19 91/57 (68) 99 97.7 01/09/18 16:00 98.6 64 21 127/77 (94) 100 98.6 Intake and Output 01/09/18 01/10/18 19:00 07:00 Intake Total 470 ml 1065 ml Output Total 800 ml Balance -330 ml 1065 ml Intake Free Water 100 ml 150 ml IV Total 100 ml 555 ml Tube Feeding 270 ml 360 ml Output Urine Total 800 ml # Bowel Movements 4 General Appearance: WD/WN Respiratory/Chest: chest wall non-tender, lungs clear Cardiovascular: normal peripheral pulses, regular rhythm Abdomen: normal bowel sounds, soft, non tender Genitourinary: normal external genitalia Extremities: no cyanosis Skin: no lesions Microbiology Date/Time Source Procedure Growth Status 01/08/18 19:20 Stool Clostridium difficile Toxin Assay - Final Complete Laboratory Tests 01/10/18 04:55: White Blood Count 9.3, Red Blood Count 3.15L, Hemoglobin 10.2L, Hematocrit 29.6L , Mean Corpuscular Volume 94, Mean Corpuscular Hemoglobin 32.3H, Mean Corpuscular Hemoglobin Concent 34.5, Red Cell Distribution Width 15.8H, Platelet Count 104L, Mean Platelet Volume 11.9H, Neutrophils (%) (Auto) 63.2, Lymphocytes (%) (Auto) 31.2, Monocytes (%) (Auto) 4.2, Eosinophils (%) (Auto) 0.8, Basophils (%) (Auto) 0.6, Sodium Level 147H, Potassium Level 3.5, Chloride Level 111H, Carbon Dioxide Level 21, Anion Gap 15, Blood Urea Nitrogen 64H, Creatinine 2.6H, Estimat Glomerular Filtration Rate , Glucose Level 220H, Uric Acid 6.9, Calcium Level 7.8L, Phosphorus Level 3.9, Magnesium Level 3.0H, Total Bilirubin 0.3, Gamma Glutamyl Transpeptidase 22, Aspartate Amino Transf (AST/ SGOT) 38H, Alanine Aminotransferase (ALT/SGPT) 21, Alkaline Phosphatase 91, Pro- B-Type Natriuretic Peptide 916H, Total Protein 8.5H, Albumin 2.7L, Globulin 5.8 , Albumin/Globulin Ratio 0.5L Current Medications Medications (Trade) Dose Ordered Sig/Nancy Route PRN Reason Start Time Stop Time Status Last Admin Dose Admin Acetaminophen (Tylenol) 650 mg Q4H PRN ORAL T>100.5 01/07/18 21:00 02/06/18 20:59 01/10/18 09:43 Albuterol/ Ipratropium (Albuterol/ Ipratropium) 3 ml Q4H PRN HHN Shortness of Breath 01/07/18 21:00 01/12/18 20:59 Amlodipine Besylate (Norvasc) 5 mg Q12HR GT 01/07/18 21:00 02/06/18 00:25 01/10/18 09:18 Apixaban (Eliquis) 2.5 mg BID GT 01/08/18 09:00 02/06/18 08:59 01/10/18 09:19 Aspirin (ASA) 81 mg DAILY NG 01/09/18 09:00 02/08/18 08:59 01/10/18 09:18 Clonidine HCl (Catapres Tab) 0.1 mg Q4H PRN ORAL sbp more than 160 01/07/18 21:00 02/06/18 20:59 Dextrose (Dextrose 50%) 25 ml STAT PRN IV Hypoglycemia 01/07/18 21:00 02/06/18 20:59 Dextrose (Dextrose 50%) 50 ml STAT PRN IV Hypoglycemia 01/07/18 21:00 02/06/18 20:59 Epoetin Wallace (Procrit (for non ESRD use)) 10,000 units SAT-SAT-SAT SUBQ 01/08/18 21:00 02/07/18 20:59 01/08/18 20:41 Insulin Aspart (NovoLOG) 12 units NOVOTIAC SUBQ 01/10/18 16:50 02/06/18 11:49 Insulin Aspart (NovoLOG) Please send pen with patient... BEFORE MEALS AND HS SUBQ 01/07/18 21:00 02/06/18 00:26 01/10/18 11:40 Insulin Detemir (Levemir) 24 units BID SUBQ 01/10/18 18:00 02/06/18 08:59 Levetiracetam (Keppra) 750 mg Q12HR GT 01/07/18 21:00 02/06/18 00:25 01/10/18 09:19 Meropenem 1 gm/ Sodium Chloride 55 ml @ 110 mls/hr Q8HR IVPB 01/10/18 14:45 01/15/18 14:44 UNV Metoclopramide HCl (Reglan) 5 mg Q8HR GT 01/09/18 14:00 02/06/18 05:59 01/10/18 14:20 Nitroglycerin (Ntg) 0.4 mg Q5M X 3 DOSES PRN SL Prn Chest Pain 01/07/18 21:00 02/05/18 20:44 Nitroglycerin (Ntg) 1 patch Q24H TDERMAL 01/08/18 14:00 02/06/18 13:59 01/10/18 14:20 Ondansetron HCl (Zofran) 4 mg Q6H PRN IVP Nausea & Vomiting 01/07/18 21:00 02/06/18 20:59 Pantoprazole (Protonix) 40 mg Q12HR ORAL 01/10/18 21:00 02/09/18 20:59 UNV Polyethylene Glycol (Miralax) 17 gm HSPRN PRN ORAL Constipation 01/07/18 21:00 02/06/18 20:59 Temazepam (Restoril) 15 mg HSPRN PRN ORAL Insomnia 01/07/18 21:00 01/14/18 20:59 Vancomycin HCl (Vanco rx to dose) 1 ea DAILY PRN MISC Per rx protocol 01/08/18 09:00 02/06/18 02:14 Saira Lazcano MD Jan 10, 2018 14:51
--- NOTE | 2018-01-10 15:32 | Diagnostic Imaging Report ---
Indication: Cough Comparison: 01/06/2018 A single view chest radiograph was obtained. Findings: Cardiomegaly is present. The pulmonary vascularity appears mildly prominent. Lung volumes are low. Bones are osteopenic. Aorta is moderately calcified. IMPRESSION: Cardiomegaly without overt CHF
[2018-01-10 16:00] VITALS: BP 104/53
[2018-01-10] MEDS: Meropenem 500 MG in NS 55 ML IV SCH (17:46)
[2018-01-10 20:00] VITALS: BP 103/57
[2018-01-10] MEDS: Epogen (for non ESRD use) SUBQ SCH (21:20)
[2018-01-10] MEDS ORDERED: Metoclopramide 10mg/2ml Inj IVP PRN (22:00)
[2018-01-11] VITALS: BP 138/50
[2018-01-11 04:00] VITALS: BP 121/59
[2018-01-11] MEDS: Meropenem 500 MG in NS 55 ML IV SCH ×2 (05:03→17:00)
[2018-01-11] MEDS: NovoLOG Insulin Flexpen SUBQ SCH ×7 (05:56→21:00)
--- NOTE | 2018-01-11 07:55 | Pulmonology Progress Note ---
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 BS management short-acting pre-meal insulin ,tanner-acting Levemir and SSI prn HgA1c - 6.9 , at goal, hyperglycemia was likely induced by sepsis TSH WNL TF was held 2 to high residual Reglan added due to malfunctioning G-tube , GI consult requested, GT was changed to another GT with 20 Latvian TF restarted at lower rate with strict aspiration/ reflux precautions ; increase rate as tolerated PPI bowel regimen instituted BP was managed with CCB Anti PLT with ASA A/coag with Eliquis HH closely monitored with goal to keep Hgb above 7 , s/p PRBC anemia w/up c/w anemia of chronic disease, high ferritin EPO added , HH stable at baseline Seizure precautions, continue Keppra Pain management addressed case discussed and evaluated by supervising physician Subjective Allergies: Coded Allergies: No Known Allergies (Verified , 01/27/10) Subjective afebrile, no leukocytosis no signs of resp distress creat down to 2.5v Objective Last 24 Hour Vital Signs Date Time Temp Pulse Resp B/P (MAP) Pulse Ox O2 Delivery O2 Flow Rate FiO2 01/11/18 04:00 97.5 75 18 121/59 (79) 96 97.5 01/11/18 00:00 98.2 80 19 138/50 (79) 93 98.2 01/10/18 21:59 100.3 01/10/18 21:29 100.5 01/10/18 21:00 81 103/57 01/10/18 21:00 Nasal Cannula 2.0 01/10/18 20:00 100.5 81 19 103/57 (72) 96 100.5 01/10/18 19:09 98 Nasal Cannula 2.0 28 01/10/18 19:09 Nasal Cannula 2.0 28 01/10/18 19:09 73 18 Nasal Cannula 2.0 28 01/10/18 16:00 98.1 76 20 104/53 (70) 97 98.1 01/10/18 14:20 123/74 01/10/18 12:00 99.9 68 20 123/74 (90) 97 99.9 01/10/18 09:43 100.0 01/10/18 09:18 85 123/60 01/10/18 09:00 Nasal Cannula 2.0 01/10/18 08:00 100.0 85 20 123/60 (81) 100.0 Intake and Output 01/10/18 01/11/18 19:00 07:00 Intake Total 840 ml 605 ml Output Total 1200 ml Balance 840 ml -595 ml Intake Free Water 60 ml 200 ml IV Total 600 ml Tube Feeding 180 ml 405 ml Output Urine Total 1200 ml # Bowel Movements 2 General Appearance: no acute distress, other - elderly bedbound poorly responsive AA female HEENT: normocephalic, atraumatic, anicteric Respiratory/Chest: no respiratory distress, no accessory muscle use, crackles/ rales - few crackles at bases Cardiovascular: normal rate, other - R femoral CL intact Abdomen: normal bowel sounds, soft, non tender Extremities: no edema, pedal pulses normal Neurologic/Psychiatric: abnormal gait Musculoskeletal: atrophy - BLE Microbiology Date/Time Source Procedure Growth Status 01/08/18 19:20 Stool Clostridium difficile Toxin Assay - Final Complete Current Medications Medications (Trade) Dose Ordered Sig/Anncy Route PRN Reason Start Time Stop Time Status Last Admin Dose Admin Acetaminophen (Tylenol) 650 mg Q4H PRN ORAL T>100.5 01/07/18 21:00 02/06/18 20:59 01/10/18 21:29 Albuterol/ Ipratropium (Albuterol/ Ipratropium) 3 ml Q4H PRN HHN Shortness of Breath 01/07/18 21:00 01/12/18 20:59 Amlodipine Besylate (Norvasc) 5 mg Q12HR GT 01/07/18 21:00 02/06/18 00:25 01/10/18 09:18 Apixaban (Eliquis) 2.5 mg BID GT 01/08/18 09:00 02/06/18 08:59 01/10/18 17:34 Aspirin (ASA) 81 mg DAILY NG 01/09/18 09:00 02/08/18 08:59 01/10/18 09:18 Clonidine HCl (Catapres Tab) 0.1 mg Q4H PRN ORAL sbp more than 160 01/07/18 21:00 02/06/18 20:59 Dextrose (Dextrose 50%) 25 ml STAT PRN IV Hypoglycemia 01/07/18 21:00 02/06/18 20:59 Dextrose (Dextrose 50%) 50 ml STAT PRN IV Hypoglycemia 01/07/18 21:00 02/06/18 20:59 Epoetin Wallace (Procrit (for non ESRD use)) 10,000 units SAT-WED-SAT SUBQ 01/08/18 21:00 02/07/18 20:59 01/10/18 21:20 Insulin Aspart (NovoLOG) 12 units NOVOTIAC SUBQ 01/10/18 16:50 02/06/18 11:49 01/11/18 05:56 Insulin Aspart (NovoLOG) Please send pen with patient... BEFORE MEALS AND HS SUBQ 01/07/18 21:00 02/06/18 00:26 01/11/18 05:57 Insulin Detemir (Levemir) 24 units BID SUBQ 01/10/18 18:00 02/06/18 08:59 01/10/18 17:36 Lansoprazole (Prevacid) 30 mg Q12HR GT 01/10/18 21:00 02/09/18 20:59 01/10/18 21:20 Levetiracetam (Keppra) 750 mg Q12HR GT 01/07/18 21:00 02/06/18 00:25 01/10/18 21:20 Meropenem 500 mg/ Sodium Chloride 55 ml @ 110 mls/hr Q12H IV 01/10/18 17:00 01/15/18 16:59 01/11/18 05:03 Metoclopramide HCl (Reglan) 10 mg Q8H PRN IVP Nausea & Vomiting 01/10/18 22:00 02/09/18 21:59 Nitroglycerin (Ntg) 0.4 mg Q5M X 3 DOSES PRN SL Prn Chest Pain 01/07/18 21:00 02/05/18 20:44 Nitroglycerin (Ntg) 1 patch Q24H TDERMAL 01/08/18 14:00 02/06/18 13:59 01/10/18 14:20 Ondansetron HCl (Zofran) 4 mg Q6H PRN IVP Nausea & Vomiting 01/07/18 21:00 02/06/18 20:59 Polyethylene Glycol (Miralax) 17 gm HSPRN PRN ORAL Constipation 01/07/18 21:00 02/06/18 20:59 Temazepam (Restoril) 15 mg HSPRN PRN ORAL Insomnia 01/07/18 21:00 01/14/18 20:59 Vancomycin HCl (Vanco rx to dose) 1 ea DAILY PRN MISC Per rx protocol 01/08/18 09:00 02/06/18 02:14 Radha Ortiz ANTHROPOLOGICAL LINGUIST Jan 11, 2018 07:55
[2018-01-11 08:25] VITALS: BP 126/55
[2018-01-11 08:43] LABS: BASOPHILS % (AUTO) 0.6 % (0.0-2.0); EOSINOPHILS % (AUTO) 0.9 % (0.0-3.0); HEMATOCRIT 26.6 % (37.0-47.0); HEMOGLOBIN 9.1 G/DL (12.0-16.0); LYMPHOCYTES % (AUTO) 23.8 % (20.0-45.0); MEAN CORPUSCULAR VOLUME 94 FL (80-99); MONOCYTES % (AUTO) 4.8 % (1.0-10.0); NEUTROPHILS % (AUTO) 69.9 % (45.0-75.0); PLATELET COUNT 106 K/UL (150-450); RED BLOOD COUNT 2.84 M/UL (4.20-5.40); RED CELL DISTRIBUTION WIDTH 15.5 % (11.6-14.8); WHITE BLOOD COUNT 8.6 K/UL (4.8-10.8)
[2018-01-11 08:59] LABS: ANION GAP 14 mmol/L (5-15); BLOOD UREA NITROGEN 58 mg/dL (7-18); CALCIUM 8.3 MG/DL (8.5-10.1); CARBON DIOXIDE 22 MMOL/L (21-32); CHLORIDE 114 MMOL/L (98-107); CREATININE 2.5 MG/DL (0.55-1.30); PHOSPHORUS 5.9 MG/DL (2.5-4.9); POTASSIUM 3.5 MMOL/L (3.5-5.1); SODIUM 150 MMOL/L (136-145)
[2018-01-11] MEDS: Aspirin Baby 81mg NG SCH (09:31)
[2018-01-11] MEDS: levETIRAcetam 500mg/5ml Liquid GT SCH ×2 (09:31→21:04)
[2018-01-11] MEDS: Eliquis 2.5mg tablet GT SCH ×2 (09:32→18:43)
[2018-01-11] MEDS: Levemir Flexpen SUBQ SCH ×2 (09:34→18:47)
--- NOTE | 2018-01-11 10:27 | General Surgery Progress Note ---
General Surgery-Progress Note Subjective Additional Comments no acute events. stable. Objective Last 24 Hour Vital Signs Date Time Temp Pulse Resp B/P (MAP) Pulse Ox O2 Delivery O2 Flow Rate FiO2 01/11/18 09:32 79 126/55 01/11/18 08:25 98.4 79 20 126/55 (78) 100 98.4 01/11/18 04:00 97.5 75 18 121/59 (79) 96 97.5 01/11/18 00:00 98.2 80 19 138/50 (79) 93 98.2 01/10/18 21:59 100.3 01/10/18 21:29 100.5 01/10/18 21:00 81 103/57 01/10/18 21:00 Nasal Cannula 2.0 01/10/18 20:00 100.5 81 19 103/57 (72) 96 100.5 01/10/18 19:09 98 Nasal Cannula 2.0 28 01/10/18 19:09 Nasal Cannula 2.0 28 01/10/18 19:09 73 18 Nasal Cannula 2.0 28 01/10/18 16:00 98.1 76 20 104/53 (70) 97 98.1 01/10/18 14:20 123/74 01/10/18 12:00 99.9 68 20 123/74 (90) 97 99.9 I&O Intake and Output 01/10/18 01/11/18 19:00 07:00 Intake Total 840 ml 605 ml Output Total 1200 ml Balance 840 ml -595 ml Intake Free Water 60 ml 200 ml IV Total 600 ml Tube Feeding 180 ml 405 ml Output Urine Total 1200 ml # Bowel Movements 2 Dressing: saturated Wound: clean Drains: none Cardiovascular: RSR Respiratory: clear Abdomen: soft, distended, non-tender, present bowel sounds Extremities: other Laboratory Tests Test 01/11/18 07:50 White Blood Count 8.6 K/UL (4.8-10.8) Red Blood Count 2.84 M/UL (4.20-5.40) L Hemoglobin 9.1 G/DL (12.0-16.0) L Hematocrit 26.6 % (37.0-47.0) L Mean Corpuscular Volume 94 FL (80-99) Mean Corpuscular Hemoglobin 32.1 PG (27.0-31.0) H Mean Corpuscular Hemoglobin Concent 34.2 G/DL (32.0-36.0) Red Cell Distribution Width 15.5 % (11.6-14.8) H Platelet Count 106 K/UL (150-450) L Mean Platelet Volume 11.2 FL (6.5-10.1) H Neutrophils (%) (Auto) 69.9 % (45.0-75.0) Lymphocytes (%) (Auto) 23.8 % (20.0-45.0) Monocytes (%) (Auto) 4.8 % (1.0-10.0) Eosinophils (%) (Auto) 0.9 % (0.0-3.0) Basophils (%) (Auto) 0.6 % (0.0-2.0) Sodium Level 150 MMOL/L (136-145) H Potassium Level 3.5 MMOL/L (3.5-5.1) Chloride Level 114 MMOL/L (98-107) H Carbon Dioxide Level 22 MMOL/L (21-32) Anion Gap 14 mmol/L (5-15) Blood Urea Nitrogen 58 mg/dL (7-18) H Creatinine 2.5 MG/DL (0.55-1.30) H Estimat Glomerular Filtration Rate mL/min (>60) Glucose Level 155 MG/DL (74-106) H Calcium Level 8.3 MG/DL (8.5-10.1) L Phosphorus Level 5.9 MG/DL (2.5-4.9) H Magnesium Level 3.2 MG/DL (1.8-2.4) H C-Reactive Protein, Quantitative Pending Random Vancomycin Level 14.7 ug/mL Plan Problems: (1) Sepsis (2) Sacral decubitus ulcer, stage III Assessment & Plan: Stage III sacral full thickness pressure injury to sacrum (L )8cm x (W)6.2cm .full thickness injury at coccygeal area with approx 10% slough centrally with pink epithelialized borders.No odor or exudate noted. Full thickness ulcer noted to lateral R tibia(L)2cm x (W)1.4cm .Wound bed with approx 20% mixed slough /necrosis otherwise red with macerated borders .Scant non-odorous serous exudate noted to drsg upon removal. Periwound skin is dry. No edema noted. R heel soft but blanchable. Tx Plan: Cleanse Sacral wound with Saline ;Apply Triad Paste to sacral wound.Cavilon wipe Periwound and cover with Biatain drsg every other day and prn. Cleanse wound lateral RLE with saline.Apply Silvasorb Gel. Cavilon wipe to borders and cover with Biatain drsg every other day and prn. Recommend Surface support overlay on bed. Reposition at minimum every 2hours as tolerated. Off-load R heel with pillow Patient presented with above wound. Was seen as stage II prior and currently with stage III in small portion of wound. labs reviewed micro reviewed no acute surgical intervention necessary unfortunately given her medical state/condition wounds may deteriorate. will continue with maximal care as detailed above Taco Carter Jan 11, 2018 10:27
--- NOTE | 2018-01-11 10:27 | General Progress Note ---
Assessment/Plan Problem List: (1) ATN (acute tubular necrosis) ICD Codes: N17.0 - Acute kidney failure with tubular necrosis SNOMED: 59746562 (2) G tube feedings ICD Codes: Z93.1 - G tube feedings SNOMED: 863519664 (3) Dehydration ICD Codes: E86.0 - Dehydration SNOMED: 26842308 (4) Hyperglycemia ICD Codes: R73.9 - Hyperglycemia, unspecified SNOMED: 85774327 (5) Dementia ICD Codes: F03.90 - Dementia SNOMED: 65809886 (6) UTI (urinary tract infection) (7) Anemia ICD Codes: D64.9 - Anemia, unspecified SNOMED: 318552241 (8) Functional quadriplegia ICD Codes: R53.2 - Functional quadriplegia SNOMED: 327139266932091 Status: stable Assessment/Plan lasix once- Reglan IV antibiotics- Vanco - Meropenem transfused GT feeding resume BS and BP check and medication adjustment per consultants repeat CXR Labs in am discussed with RN Subjective ROS Limited/Unobtainable: No Constitutional: Reports: malaise, other - vomitted yesterday Gastrointestinal/Abdominal: Reports: abdomen distended, vomiting - yesterday Allergies: Coded Allergies: No Known Allergies (Verified , 01/27/10) Objective Last 24 Hour Vital Signs Date Time Temp Pulse Resp B/P (MAP) Pulse Ox O2 Delivery O2 Flow Rate FiO2 01/11/18 09:32 79 126/55 01/11/18 08:25 98.4 79 20 126/55 (78) 100 98.4 01/11/18 04:00 97.5 75 18 121/59 (79) 96 97.5 01/11/18 00:00 98.2 80 19 138/50 (79) 93 98.2 01/10/18 21:59 100.3 01/10/18 21:29 100.5 01/10/18 21:00 81 103/57 01/10/18 21:00 Nasal Cannula 2.0 01/10/18 20:00 100.5 81 19 103/57 (72) 96 100.5 01/10/18 19:09 98 Nasal Cannula 2.0 28 01/10/18 19:09 Nasal Cannula 2.0 28 01/10/18 19:09 73 18 Nasal Cannula 2.0 28 01/10/18 16:00 98.1 76 20 104/53 (70) 97 98.1 01/10/18 14:20 123/74 01/10/18 12:00 99.9 68 20 123/74 (90) 97 99.9 Intake and Output 01/10/18 01/11/18 19:00 07:00 Intake Total 840 ml 605 ml Output Total 1200 ml Balance 840 ml -595 ml Intake Free Water 60 ml 200 ml IV Total 600 ml Tube Feeding 180 ml 405 ml Output Urine Total 1200 ml # Bowel Movements 2 Laboratory Tests 01/11/18 07:50: White Blood Count 8.6, Red Blood Count 2.84L, Hemoglobin 9.1L, Hematocrit 26.6L , Mean Corpuscular Volume 94, Mean Corpuscular Hemoglobin 32.1H, Mean Corpuscular Hemoglobin Concent 34.2, Red Cell Distribution Width 15.5H, Platelet Count 106L, Mean Platelet Volume 11.2H, Neutrophils (%) (Auto) 69.9, Lymphocytes (%) (Auto) 23.8, Monocytes (%) (Auto) 4.8, Eosinophils (%) (Auto) 0.9, Basophils (%) (Auto) 0.6, Sodium Level 150H, Potassium Level 3.5, Chloride Level 114H, Carbon Dioxide Level 22, Anion Gap 14, Blood Urea Nitrogen 58H, Creatinine 2.5H, Estimat Glomerular Filtration Rate , Glucose Level 155H, Calcium Level 8.3L, Phosphorus Level 5.9H, Magnesium Level 3.2H, Random Vancomycin Level 14.7 Height (Feet): 5 Height (Inches): 5.00 Weight (Pounds): 181 General Appearance: no apparent distress Cardiovascular: normal rate Respiratory/Chest: decreased breath sounds Abdomen: distended Objective no other changes Estevan Orozco MD Jan 11, 2018 10:27
[2018-01-11] MEDS ORDERED: Vancomycin 1gm/D5W 275ml IVPB ONE ×2 (10:30)
[2018-01-11] MEDS ORDERED: Albuterol/Ipratropium 3ml neb HHN PRN (10:51)
[2018-01-11 11:26] VITALS: BP 110/51
[2018-01-11] MEDS ORDERED: Lidocaine 1% Plain 30 ml INJ PRN (11:30)
[2018-01-11] MEDS ORDERED: Heparin 2000 units/Ns 1000ml INJ PRN (11:30)
--- NOTE | 2018-01-11 13:48 | Infectious Diseases Prog Note ---
Assessment/Plan Problems: (1) Aspiration pneumonia Assessment & Plan: with productive cough and fever, continue meropenem and vancomycin empirically, await sputum culture , monitor CXR to evaluate for new infiltrates (2) Sepsis Assessment & Plan: with gram positive cocci , grew from one bottle only , on vancomycin empirically pending blood culture , repeated blood culture to confirm is pending (3) CKD (chronic kidney disease) Assessment & Plan: worsening due to dehydration, continue IVF , renal is following (4) Diabetes Assessment & Plan: poorly controled , recommend tight glycemic control to keep blood glucose between 100-140 (5) Sacral decubitus ulcer, stage III Assessment & Plan: continue off loading , and local wound care as per hospital protocol (6) Fever Assessment & Plan: due to the above , improving , continue wide spectrum antibiotics Subjective ROS Limited/Unobtainable: Yes Allergies: Coded Allergies: No Known Allergies (Verified , 01/27/10) Subjective she has less coughing and oral secretions today , lying in bed comfortable, unresponsive, no fever today , NAD Objective Vital Signs Last 24 Hour Vital Signs Date Time Temp Pulse Resp B/P (MAP) Pulse Ox O2 Delivery O2 Flow Rate FiO2 01/11/18 11:35 98 Nasal Cannula 2.0 28 01/11/18 11:35 76 18 Nasal Cannula 2.0 28 01/11/18 11:35 Nasal Cannula 2.0 28 01/11/18 11:26 98.2 77 20 110/51 (70) 99 98.2 01/11/18 09:32 79 126/55 01/11/18 09:00 Nasal Cannula 2.0 01/11/18 08:25 98.4 79 20 126/55 (78) 100 98.4 01/11/18 04:00 97.5 75 18 121/59 (79) 96 97.5 01/11/18 00:00 98.2 80 19 138/50 (79) 93 98.2 01/10/18 21:59 100.3 01/10/18 21:29 100.5 01/10/18 21:00 81 103/57 01/10/18 21:00 Nasal Cannula 2.0 01/10/18 20:00 100.5 81 19 103/57 (72) 96 100.5 01/10/18 19:09 98 Nasal Cannula 2.0 28 9/7/18 19:09 Nasal Cannula 2.0 28 01/10/18 19:09 73 18 Nasal Cannula 2.0 28 01/10/18 16:00 98.1 76 20 104/53 (70) 97 98.1 01/10/18 14:20 123/74 Height (Feet): 5 Height (Inches): 5.00 Weight (Pounds): 181 General Appearance: WD/WN, no acute distress HEENT: normocephalic, atraumatic, anicteric, supple, no JVD Respiratory/Chest: normal breath sounds, no respiratory distress, no accessory muscle use, decreased breath sounds, crackles/rales Cardiovascular: normal peripheral pulses, normal rate, regular rhythm, no gallop/murmur, no JVD Abdomen: normal bowel sounds, soft, non tender, no organomegaly, non distended , no mass, no scars Extremities: no cyanosis, no clubbing Skin: no rash, no lesions, no ulcers Neurologic/Psychiatric: unresponsiveness Lymphatic: no neck adenopathy, no groin adenopathy Musculoskeletal: normal muscle bulk, no effusion Microbiology Date/Time Source Procedure Growth Status 01/08/18 19:20 Stool Clostridium difficile Toxin Assay - Final Complete Laboratory Tests Test 01/11/18 07:50 White Blood Count 8.6 K/UL (4.8-10.8) Red Blood Count 2.84 M/UL (4.20-5.40) L Hemoglobin 9.1 G/DL (12.0-16.0) L Hematocrit 26.6 % (37.0-47.0) L Mean Corpuscular Volume 94 FL (80-99) Mean Corpuscular Hemoglobin 32.1 PG (27.0-31.0) H Mean Corpuscular Hemoglobin Concent 34.2 G/DL (32.0-36.0) Red Cell Distribution Width 15.5 % (11.6-14.8) H Platelet Count 106 K/UL (150-450) L Mean Platelet Volume 11.2 FL (6.5-10.1) H Neutrophils (%) (Auto) 69.9 % (45.0-75.0) Lymphocytes (%) (Auto) 23.8 % (20.0-45.0) Monocytes (%) (Auto) 4.8 % (1.0-10.0) Eosinophils (%) (Auto) 0.9 % (0.0-3.0) Basophils (%) (Auto) 0.6 % (0.0-2.0) Sodium Level 150 MMOL/L (136-145) H Potassium Level 3.5 MMOL/L (3.5-5.1) Chloride Level 114 MMOL/L (98-107) H Carbon Dioxide Level 22 MMOL/L (21-32) Anion Gap 14 mmol/L (5-15) Blood Urea Nitrogen 58 mg/dL (7-18) H Creatinine 2.5 MG/DL (0.55-1.30) H Estimat Glomerular Filtration Rate mL/min (>60) Glucose Level 155 MG/DL (74-106) H Calcium Level 8.3 MG/DL (8.5-10.1) L Phosphorus Level 5.9 MG/DL (2.5-4.9) H Magnesium Level 3.2 MG/DL (1.8-2.4) H C-Reactive Protein, Quantitative 21.0 mg/dL (0.00-0.90) H Random Vancomycin Level 14.7 ug/mL Current Medications Medications (Trade) Dose Ordered Sig/Nancy Route PRN Reason Start Time Stop Time Status Last Admin Dose Admin Acetaminophen (Tylenol) 650 mg Q4H PRN ORAL T>100.5 01/07/18 21:00 02/06/18 20:59 01/10/18 21:29 Albuterol/ Ipratropium (Albuterol/ Ipratropium) 3 ml Q4H PRN HHN Shortness of Breath 01/11/18 10:51 01/16/18 10:50 Amlodipine Besylate (Norvasc) 5 mg Q12HR GT 01/07/18 21:00 02/06/18 00:25 01/11/18 09:32 Apixaban (Eliquis) 2.5 mg BID GT 01/08/18 09:00 02/06/18 08:59 01/11/18 09:32 Aspirin (ASA) 81 mg DAILY NG 01/09/18 09:00 02/08/18 08:59 01/11/18 09:31 Chlorhexidine Gluconate (Jossy-Hex 2%) 1 applic DAILY@2000 TOPIC 01/11/18 20:00 02/10/18 19:59 Clonidine HCl (Catapres Tab) 0.1 mg Q4H PRN ORAL sbp more than 160 01/07/18 21:00 02/06/18 20:59 Dextrose (Dextrose 50%) 25 ml STAT PRN IV Hypoglycemia 01/07/18 21:00 02/06/18 20:59 Dextrose (Dextrose 50%) 50 ml STAT PRN IV Hypoglycemia 01/07/18 21:00 02/06/18 20:59 Epoetin Wallace (Procrit (for non ESRD use)) 10,000 units SAT-SAT-SAT SUBQ 01/08/18 21:00 02/07/18 20:59 01/10/18 21:20 Heparin Sodium/ Sodium Chloride (Heparin 2000 units/Ns 1000ml premix) 2,000 unit ONCE PRN INJ PICC LINE 01/11/18 11:30 01/12/18 23:59 Insulin Aspart (NovoLOG) 12 units NOVOTIAC SUBQ 01/10/18 16:50 02/06/18 11:49 01/11/18 12:17 Insulin Aspart (NovoLOG) Please send pen with patient... BEFORE MEALS AND HS SUBQ 01/07/18 21:00 02/06/18 00:26 01/11/18 12:17 Insulin Detemir (Levemir) 24 units BID SUBQ 01/10/18 18:00 02/06/18 08:59 01/11/18 09:34 Lansoprazole (Prevacid) 30 mg Q12HR GT 01/10/18 21:00 02/09/18 20:59 01/11/18 09:32 Levetiracetam (Keppra) 750 mg Q12HR GT 01/07/18 21:00 02/06/18 00:25 01/11/18 09:31 Lidocaine HCl (Xylocaine 1% 30ml) 30 ml ONCE PRN INJ PICC LINE 01/11/18 11:30 01/12/18 23:59 Meropenem 500 mg/ Sodium Chloride 55 ml @ 110 mls/hr Q12H IV 01/10/18 17:00 01/15/18 16:59 01/11/18 05:03 Metoclopramide HCl (Reglan) 10 mg Q8H IVP 01/11/18 14:00 02/09/18 21:59 Nitroglycerin (Ntg) 1 patch Q24H TDERMAL 01/08/18 14:00 02/06/18 13:59 01/10/18 14:20 Ondansetron HCl (Zofran) 4 mg Q6H PRN IVP Nausea & Vomiting 01/07/18 21:00 02/06/18 20:59 Polyethylene Glycol (Miralax) 17 gm HSPRN PRN ORAL Constipation 01/07/18 21:00 02/06/18 20:59 Temazepam (Restoril) 15 mg HSPRN PRN ORAL Insomnia 01/07/18 21:00 01/14/18 20:59 Vancomycin HCl (Vanco rx to dose) 1 ea DAILY PRN MISC Per rx protocol 01/08/18 09:00 02/06/18 02:14 Ayala Forman M.D. Jan 11, 2018 13:48
[2018-01-11] MEDS: Metoclopramide 10mg/2ml Inj IVP SCH ×2 (14:00→22:00)
[2018-01-11 15:40] VITALS: BP 114/56
[2018-01-11] MEDS: Nitroglycerin Patch 0.4mg TDERMAL SCH (15:46)
[2018-01-11 20:00] VITALS: BP 148/49
[2018-01-11] MEDS: Dyna-Hex 2% Top Sol 2oz TOPIC SCH (21:03)
[2018-01-12] VITALS: BP 118/55
[2018-01-12 04:00] VITALS: BP 106/44
[2018-01-12 04:50] LABS: BASOPHILS % (AUTO) 0.2 % (0.0-2.0); EOSINOPHILS % (AUTO) 0.9 % (0.0-3.0); HEMATOCRIT 26.3 % (37.0-47.0); HEMOGLOBIN 8.8 G/DL (12.0-16.0); LYMPHOCYTES % (AUTO) 31.3 % (20.0-45.0); MEAN CORPUSCULAR VOLUME 95 FL (80-99); MONOCYTES % (AUTO) 6.7 % (1.0-10.0); NEUTROPHILS % (AUTO) 60.9 % (45.0-75.0); PLATELET COUNT 108 K/UL (150-450); RED BLOOD COUNT 2.76 M/UL (4.20-5.40); RED CELL DISTRIBUTION WIDTH 16.3 % (11.6-14.8); WHITE BLOOD COUNT 8.5 K/UL (4.8-10.8)
[2018-01-12] MEDS: Meropenem 500 MG in NS 55 ML IV SCH ×2 (05:00→17:32)
[2018-01-12] MEDS: Metoclopramide 10mg/2ml Inj IVP SCH ×4 (05:25→23:18)
[2018-01-12 05:30] LABS: ALANINE AMINOTRANSFERASE 24 U/L (12-78); ALBUMIN 2.4 G/DL (3.4-5.0); ALBUMIN/GLOBULIN RATIO 0.4 (1.0-2.7); ALKALINE PHOSPHATASE 92 U/L (46-116); ANION GAP 11 mmol/L (5-15); ASPARTATE AMINO TRANSFERASE 24 U/L (15-37); BILIRUBIN,TOTAL 0.3 MG/DL (0.2-1.0); BLOOD UREA NITROGEN 51 mg/dL (7-18); CALCIUM 8.4 MG/DL (8.5-10.1); CARBON DIOXIDE 25 MMOL/L (21-32); CHLORIDE 115 MMOL/L (98-107); CREATININE 2.1 MG/DL (0.55-1.30); PHOSPHORUS 5.1 MG/DL (2.5-4.9); POTASSIUM 3.6 MMOL/L (3.5-5.1); SODIUM 151 MMOL/L (136-145)
[2018-01-12] MEDS: NovoLOG Insulin Flexpen SUBQ SCH ×7 (05:40→20:26)
--- NOTE | 2018-01-12 06:26 | Operative Note - PDOC ---
Operative Note Operative Note Date of Operation/Procedure: Jan 12, 2018 Pre-op Diagnosis: poor peripheral access Procedure: right femoral central venous catheter Post-op Diagnosis: same as pre-op Surgeon: jose l Anesthesia: local Specimen: none Complications: none Condition: stable Estimated Blood Loss: minimal Drains: none Implant(s) used?: No Indications for Procedure 82F with poor peripheral access requiring central venous catheter for fluids, meds, and care. consent obtained. Description of Procedure The patient was lying in the supine position. All persons involved were shielded with hairnets, facemasks and sterile gowns. With sterile-gloved hands the right femoral area was thoroughly sponged with chlorhexidine and allowed to dry. The area was draped with the large disposable sterile field provided in the kit. The skin and subcutaneous tissues superficial to the right femoral vein was anesthetized with 3 mL of 1% lidocaine. The femoral artery was palpated and avoided. A finder needle was advanced at a 45-degree angle toward the inguinal ligament until the syringe was seen to fill with blood. The needle was then held in place while the guide wire was advanced. The needle was then removed. A skin dilator was advanced over the guidewire and removed, then the triple-lumen catheter was advanced over the guide wire into proper position. The guide wire was removed and discarded. The ports were aspirated which showed good blood return indicating proper position into the vein and then carefully flushed with normal saline. The catheter was stabilized and sutured to the skin with 2-0 silk at 2 anchor ports. A sterile bio-occlusive dressing was placed over the catheter, including the insertion site. The patient tolerated the procedure well. Taco Carter Jan 12, 2018 06:26
--- NOTE | 2018-01-12 06:49 | General Surgery Progress Note ---
General Surgery-Progress Note Subjective Procedure Performed right femoral central venous catheter Additional Comments no acute events. requiring central venous access for meds given poor peripheral access Objective Last 24 Hour Vital Signs Date Time Temp Pulse Resp B/P (MAP) Pulse Ox O2 Delivery O2 Flow Rate FiO2 01/12/18 04:00 97.9 76 17 106/44 (64) 97 97.9 01/12/18 00:00 98.5 82 15 118/55 (76) 98 98.5 01/11/18 21:04 83 148/49 01/11/18 21:00 Nasal Cannula 2.0 01/11/18 20:54 83 16 Nasal Cannula 2.0 28 01/11/18 20:54 Nasal Cannula 2.0 28 01/11/18 20:54 97 Nasal Cannula 2.0 28 01/11/18 20:00 98.2 88 17 148/49 (82) 100 98.2 01/11/18 15:46 124/55 01/11/18 15:40 98.6 77 20 114/56 (75) 99 98.6 01/11/18 11:35 98 Nasal Cannula 2.0 28 01/11/18 11:35 76 18 Nasal Cannula 2.0 28 01/11/18 11:35 Nasal Cannula 2.0 28 01/11/18 11:26 98.2 77 20 110/51 (70) 99 98.2 01/11/18 09:32 79 126/55 01/11/18 09:00 Nasal Cannula 2.0 01/11/18 08:25 98.4 79 20 126/55 (78) 100 98.4 I&O Intake and Output 01/11/18 01/12/18 19:00 07:00 Intake Total 375 ml 530 ml Output Total 1000 ml Balance -625 ml 530 ml Intake Free Water 60 ml 125 ml Tube Feeding 315 ml 405 ml Output Urine Total 1000 ml Dressing: other Wound: other Drains: other Cardiovascular: RSR Respiratory: clear Abdomen: soft, flat, non-tender, present bowel sounds Extremities: other Laboratory Tests Test 01/11/18 07:50 01/12/18 04:20 White Blood Count 8.6 K/UL (4.8-10.8) 8.5 K/UL (4.8-10.8) Red Blood Count 2.84 M/UL (4.20-5.40) L 2.76 M/UL (4.20-5.40) L Hemoglobin 9.1 G/DL (12.0-16.0) L 8.8 G/DL (12.0-16.0) L Hematocrit 26.6 % (37.0-47.0) L 26.3 % (37.0-47.0) L Mean Corpuscular Volume 94 FL (80-99) 95 FL (80-99) Mean Corpuscular Hemoglobin 32.1 PG (27.0-31.0) H 31.7 PG (27.0-31.0) H Mean Corpuscular Hemoglobin Concent 34.2 G/DL (32.0-36.0) 33.3 G/DL (32.0-36.0) Red Cell Distribution Width 15.5 % (11.6-14.8) H 16.3 % (11.6-14.8) H Platelet Count 106 K/UL (150-450) L 108 K/UL (150-450) L Mean Platelet Volume 11.2 FL (6.5-10.1) H 10.1 FL (6.5-10.1) Neutrophils (%) (Auto) 69.9 % (45.0-75.0) 60.9 % (45.0-75.0) Lymphocytes (%) (Auto) 23.8 % (20.0-45.0) 31.3 % (20.0-45.0) Monocytes (%) (Auto) 4.8 % (1.0-10.0) 6.7 % (1.0-10.0) Eosinophils (%) (Auto) 0.9 % (0.0-3.0) 0.9 % (0.0-3.0) Basophils (%) (Auto) 0.6 % (0.0-2.0) 0.2 % (0.0-2.0) Sodium Level 150 MMOL/L (136-145) H 151 MMOL/L (136-145) H Potassium Level 3.5 MMOL/L (3.5-5.1) 3.6 MMOL/L (3.5-5.1) Chloride Level 114 MMOL/L (98-107) H 115 MMOL/L (98-107) H Carbon Dioxide Level 22 MMOL/L (21-32) 25 MMOL/L (21-32) Anion Gap 14 mmol/L (5-15) 11 mmol/L (5-15) Blood Urea Nitrogen 58 mg/dL (7-18) H 51 mg/dL (7-18) H Creatinine 2.5 MG/DL (0.55-1.30) H 2.1 MG/DL (0.55-1.30) H Estimat Glomerular Filtration Rate mL/min (>60) mL/min (>60) Glucose Level 155 MG/DL (74-106) H 127 MG/DL (74-106) H Calcium Level 8.3 MG/DL (8.5-10.1) L 8.4 MG/DL (8.5-10.1) L Phosphorus Level 5.9 MG/DL (2.5-4.9) H 5.1 MG/DL (2.5-4.9) H Magnesium Level 3.2 MG/DL (1.8-2.4) H 2.9 MG/DL (1.8-2.4) H C-Reactive Protein, Quantitative 21.0 mg/dL (0.00-0.90) H Random Vancomycin Level 14.7 ug/mL Uric Acid 7.8 MG/DL (2.6-7.2) H Total Bilirubin 0.3 MG/DL (0.2-1.0) Aspartate Amino Transf (AST/SGOT) 24 U/L (15-37) Alanine Aminotransferase (ALT/SGPT) 24 U/L (12-78) Alkaline Phosphatase 92 U/L (46-116) Troponin I 0.007 ng/mL (0.000-0.056) Pro-B-Type Natriuretic Peptide 989 pg/mL (0-125) H Total Protein 8.1 G/DL (6.4-8.2) Albumin 2.4 G/DL (3.4-5.0) L Globulin 5.7 g/dL Albumin/Globulin Ratio 0.4 (1.0-2.7) L Plan Problems: (1) Sepsis Assessment & Plan: on IV Abx as per ID central line placed for meds (2) Sacral decubitus ulcer, stage III Assessment & Plan: Stage III sacral full thickness pressure injury to sacrum (L )8cm x (W)6.2cm .full thickness injury at coccygeal area with approx 10% slough centrally with pink epithelialized borders.No odor or exudate noted. Full thickness ulcer noted to lateral R tibia(L)2cm x (W)1.4cm .Wound bed with approx 20% mixed slough /necrosis otherwise red with macerated borders .Scant non-odorous serous exudate noted to drsg upon removal. Periwound skin is dry. No edema noted. R heel soft but blanchable. Tx Plan: Cleanse Sacral wound with Saline ;Apply Triad Paste to sacral wound.Cavilon wipe Periwound and cover with Biatain drsg every other day and prn. Cleanse wound lateral RLE with saline.Apply Silvasorb Gel. Cavilon wipe to borders and cover with Biatain drsg every other day and prn. Recommend Surface support overlay on bed. Reposition at minimum every 2hours as tolerated. Off-load R heel with pillow Patient presented with above wound. Was seen as stage II prior and currently with stage III in small portion of wound. labs reviewed micro reviewed no acute surgical intervention necessary unfortunately given her medical state/condition wounds may deteriorate. will continue with maximal care as detailed above Taco Carter Jan 12, 2018 06:49
--- NOTE | 2018-01-12 08:01 | Pulmonology Progress Note ---
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 follows BS management short-acting pre-meal insulin ,tanner-acting Levemir and SSI prn HgA1c - 6.9 , at goal, hyperglycemia was likely induced by sepsis TSH WNL TF was held 2 to high residuals Reglan added due to malfunctioning G-tube , GI consult requested, GT was changed to another GT with 20 [place] TF restarted at lower rate with strict aspiration/ reflux precautions ; increase rate as tolerated PPI bowel regimen instituted BP was managed with CCB Anti PLT with ASA A/coag with Eliquis HH closely monitored with goal to keep Hgb above 7 , s/p PRBC anemia w/up c/w anemia of chronic disease, high ferritin EPO added , HH stable at baseline Seizure precautions, continue Keppra Pain management addressed case discussed and evaluated by supervising physician Subjective Allergies: Coded Allergies: No Known Allergies (Verified , 01/27/10) Subjective afebrile, no leukocytosis no signs of resp distress creat down to 2.1. Na trending down still 151 Objective Last 24 Hour Vital Signs Date Time Temp Pulse Resp B/P (MAP) Pulse Ox O2 Delivery O2 Flow Rate FiO2 01/12/18 04:00 97.9 76 17 106/44 (64) 97 97.9 01/12/18 00:00 98.5 82 15 118/55 (76) 98 98.5 01/11/18 21:04 83 148/49 01/11/18 21:00 Nasal Cannula 2.0 01/11/18 20:54 83 16 Nasal Cannula 2.0 28 01/11/18 20:54 Nasal Cannula 2.0 28 01/11/18 20:54 97 Nasal Cannula 2.0 28 01/11/18 20:00 98.2 88 17 148/49 (82) 100 98.2 01/11/18 15:46 124/55 01/11/18 15:40 98.6 77 20 114/56 (75) 99 98.6 01/11/18 11:35 98 Nasal Cannula 2.0 28 01/11/18 11:35 76 18 Nasal Cannula 2.0 28 01/11/18 11:35 Nasal Cannula 2.0 28 01/11/18 11:26 98.2 77 20 110/51 (70) 99 98.2 01/11/18 09:32 79 126/55 01/11/18 09:00 Nasal Cannula 2.0 01/11/18 08:25 98.4 79 20 126/55 (78) 100 98.4 Intake and Output 01/11/18 01/12/18 19:00 07:00 Intake Total 375 ml 530 ml Output Total 1000 ml 1000 ml Balance -625 ml -470 ml Intake Free Water 60 ml 125 ml Tube Feeding 315 ml 405 ml Output Urine Total 1000 ml 1000 ml # Bowel Movements 1 Objective General Appearance: no acute distress, other - elderly bedbound poorly responsive AA female HEENT: normocephalic, atraumatic, anicteric Respiratory/Chest: no respiratory distress, no accessory muscle use, few crackles at bases Cardiovascular: normal rate, R femoral CL intact Abdomen: normal bowel sounds, soft, non tender Extremities: no edema, pedal pulses normal Neurologic/Psychiatric: abnormal gait Musculoskeletal: atrophy - BLE Microbiology Date/Time Source Procedure Growth Status 01/10/18 15:45 Blood Blood Culture - Preliminary NO GROWTH AFTER 24 HOURS Resulted 01/10/18 15:30 Blood Blood Culture - Preliminary NO GROWTH AFTER 24 HOURS Resulted Laboratory Tests 01/12/18 04:20: White Blood Count 8.5, Red Blood Count 2.76L, Hemoglobin 8.8L, Hematocrit 26.3L , Mean Corpuscular Volume 95, Mean Corpuscular Hemoglobin 31.7H, Mean Corpuscular Hemoglobin Concent 33.3, Red Cell Distribution Width 16.3H, Platelet Count 108L, Mean Platelet Volume 10.1, Neutrophils (%) (Auto) 60.9, Lymphocytes (%) (Auto) 31.3, Monocytes (%) (Auto) 6.7, Eosinophils (%) (Auto) 0.9, Basophils (%) (Auto) 0.2, Sodium Level 151H, Potassium Level 3.6, Chloride Level 115H, Carbon Dioxide Level 25, Anion Gap 11, Blood Urea Nitrogen 51H, Creatinine 2.1H, Estimat Glomerular Filtration Rate , Glucose Level 127H, Uric Acid 7.8H, Calcium Level 8.4L, Phosphorus Level 5.1H, Magnesium Level 2.9H, Total Bilirubin 0.3, Aspartate Amino Transf (AST/SGOT) 24, Alanine Aminotransferase (ALT/SGPT) 24, Alkaline Phosphatase 92, Troponin I 0.007, Pro-B -Type Natriuretic Peptide 989H, Total Protein 8.1, Albumin 2.4L, Globulin 5.7, Albumin/Globulin Ratio 0.4L Current Medications Medications (Trade) Dose Ordered Sig/Nancy Route PRN Reason Start Time Stop Time Status Last Admin Dose Admin Acetaminophen (Tylenol) 650 mg Q4H PRN ORAL T>100.5 01/07/18 21:00 02/06/18 20:59 01/10/18 21:29 Albuterol/ Ipratropium (Albuterol/ Ipratropium) 3 ml Q4H PRN HHN Shortness of Breath 01/11/18 10:51 01/16/18 10:50 Amlodipine Besylate (Norvasc) 5 mg Q12HR GT 01/07/18 21:00 02/06/18 00:25 01/11/18 21:04 Apixaban (Eliquis) 2.5 mg BID GT 01/08/18 09:00 02/06/18 08:59 01/11/18 18:43 Aspirin (ASA) 81 mg DAILY NG 01/09/18 09:00 02/08/18 08:59 01/11/18 09:31 Chlorhexidine Gluconate (Jossy-Hex 2%) 1 applic DAILY@2000 TOPIC 01/11/18 20:00 02/10/18 19:59 01/11/18 21:03 Clonidine HCl (Catapres Tab) 0.1 mg Q4H PRN ORAL sbp more than 160 01/07/18 21:00 02/06/18 20:59 Dextrose (Dextrose 50%) 25 ml STAT PRN IV Hypoglycemia 01/07/18 21:00 02/06/18 20:59 Dextrose (Dextrose 50%) 50 ml STAT PRN IV Hypoglycemia 01/07/18 21:00 02/06/18 20:59 Epoetin Wallace (Procrit (for non ESRD use)) 10,000 units SAT-WED-SAT SUBQ 01/08/18 21:00 02/07/18 20:59 01/10/18 21:20 Heparin Sodium/ Sodium Chloride (Heparin 2000 units/Ns 1000ml premix) 2,000 unit ONCE PRN INJ PICC LINE 01/11/18 11:30 01/12/18 23:59 Insulin Aspart (NovoLOG) 12 units NOVOTIAC SUBQ 01/10/18 16:50 02/06/18 11:49 01/12/18 05:40 Insulin Aspart (NovoLOG) Please send pen with patient... BEFORE MEALS AND HS SUBQ 01/07/18 21:00 02/06/18 00:26 01/12/18 05:40 Insulin Detemir (Levemir) 24 units BID SUBQ 01/10/18 18:00 02/06/18 08:59 01/11/18 18:47 Lansoprazole (Prevacid) 30 mg Q12HR GT 01/10/18 21:00 02/09/18 20:59 01/11/18 21:03 Levetiracetam (Keppra) 750 mg Q12HR GT 01/07/18 21:00 02/06/18 00:25 01/11/18 21:04 Lidocaine HCl (Xylocaine 1% 30ml) 30 ml ONCE PRN INJ PICC LINE 01/11/18 11:30 01/12/18 23:59 Meropenem 500 mg/ Sodium Chloride 55 ml @ 110 mls/hr Q12H IV 01/10/18 17:00 01/15/18 16:59 01/11/18 05:03 Metoclopramide HCl (Reglan) 10 mg Q8H IVP 01/11/18 14:00 02/09/18 21:59 Nitroglycerin (Ntg) 1 patch Q24H TDERMAL 01/08/18 14:00 02/06/18 13:59 01/11/18 15:46 Ondansetron HCl (Zofran) 4 mg Q6H PRN IVP Nausea & Vomiting 01/07/18 21:00 02/06/18 20:59 Polyethylene Glycol (Miralax) 17 gm HSPRN PRN ORAL Constipation 01/07/18 21:00 02/06/18 20:59 Temazepam (Restoril) 15 mg HSPRN PRN ORAL Insomnia 01/07/18 21:00 01/14/18 20:59 Vancomycin HCl (Vanco rx to dose) 1 ea DAILY PRN MISC Per rx protocol 01/08/18 09:00 02/06/18 02:14 Radha Ortiz [employer] TECHNICIAN Jan 12, 2018 08:01
[2018-01-12 08:52] VITALS: BP_SYST 118; BP_SYST 121; BP_DIAS 43; BP_DIAS 73
--- NOTE | 2018-01-12 09:00 | Diagnostic Imaging Report ---
INDICATION: Cough COMPARISON: Chest x-ray dated 01/10/19 FINDINGS: Single frontal view demonstrates a normal cardiomediastinal silhouette. Atherosclerotic vascular disease. Stable increased pulmonary markings. No pleural effusions. The visualized osseous structures are within normal limits. IMPRESSION: No significant change. Stable increased pulmonary markings.
[2018-01-12] MEDS: levETIRAcetam 500mg/5ml Liquid GT SCH ×2 (09:54→20:26)
[2018-01-12] MEDS: Eliquis 2.5mg tablet GT SCH ×2 (09:55→17:32)
[2018-01-12] MEDS: Aspirin Baby 81mg NG SCH (09:55)
[2018-01-12] MEDS: Levemir Flexpen SUBQ SCH ×2 (09:59→17:36)
--- NOTE | 2018-01-12 10:55 | General Progress Note ---
Assessment/Plan Problem List: (1) ATN (acute tubular necrosis) ICD Codes: N17.0 - Acute kidney failure with tubular necrosis SNOMED: 00517398 (2) G tube feedings ICD Codes: Z93.1 - G tube feedings SNOMED: 346063862 (3) Dehydration ICD Codes: E86.0 - Dehydration SNOMED: 17235915 (4) Hyperglycemia ICD Codes: R73.9 - Hyperglycemia, unspecified SNOMED: 18700426 (5) Dementia ICD Codes: F03.90 - Dementia SNOMED: 40512681 (6) UTI (urinary tract infection) (7) Anemia ICD Codes: D64.9 - Anemia, unspecified SNOMED: 234497065 (8) Functional quadriplegia ICD Codes: R53.2 - Functional quadriplegia SNOMED: 033708265202336 Status: stable Assessment/Plan D5W bolus Now has groin line Reglan IV antibiotics- Vanco - Meropenem transfused GT feeding resume BS and BP check and medication adjustment per consultants repeat CXR Labs in am discussed with RN Subjective ROS Limited/Unobtainable: No Constitutional: Reports: malaise Allergies: Coded Allergies: No Known Allergies (Verified , 01/27/10) Objective Last 24 Hour Vital Signs Date Time Temp Pulse Resp B/P (MAP) Pulse Ox O2 Delivery O2 Flow Rate FiO2 01/12/18 09:00 76 118/43 01/12/18 08:52 98.8 76 18 118/43 (68) 99 98.8 01/12/18 08:23 Nasal Cannula 2.0 28 01/12/18 08:23 97 Nasal Cannula 2.0 28 01/12/18 08:22 83 20 Nasal Cannula 2.0 28 01/12/18 04:00 97.9 76 17 106/44 (64) 97 97.9 01/12/18 00:00 98.5 82 15 118/55 (76) 98 98.5 01/11/18 21:04 83 148/49 01/11/18 21:00 Nasal Cannula 2.0 01/11/18 20:54 83 16 Nasal Cannula 2.0 28 01/11/18 20:54 Nasal Cannula 2.0 28 01/11/18 20:54 97 Nasal Cannula 2.0 28 01/11/18 20:00 98.2 88 17 148/49 (82) 100 98.2 01/11/18 15:46 124/55 01/11/18 15:40 98.6 77 20 114/56 (75) 99 98.6 01/11/18 11:35 98 Nasal Cannula 2.0 28 01/11/18 11:35 76 18 Nasal Cannula 2.0 28 01/11/18 11:35 Nasal Cannula 2.0 28 01/11/18 11:26 98.2 77 20 110/51 (70) 99 98.2 Intake and Output 01/11/18 01/12/18 19:00 07:00 Intake Total 375 ml 530 ml Output Total 1000 ml 1000 ml Balance -625 ml -470 ml Intake Free Water 60 ml 125 ml Tube Feeding 315 ml 405 ml Output Urine Total 1000 ml 1000 ml # Bowel Movements 1 Laboratory Tests 01/12/18 04:20: White Blood Count 8.5, Red Blood Count 2.76L, Hemoglobin 8.8L, Hematocrit 26.3L , Mean Corpuscular Volume 95, Mean Corpuscular Hemoglobin 31.7H, Mean Corpuscular Hemoglobin Concent 33.3, Red Cell Distribution Width 16.3H, Platelet Count 108L, Mean Platelet Volume 10.1, Neutrophils (%) (Auto) 60.9, Lymphocytes (%) (Auto) 31.3, Monocytes (%) (Auto) 6.7, Eosinophils (%) (Auto) 0.9, Basophils (%) (Auto) 0.2, Sodium Level 151H, Potassium Level 3.6, Chloride Level 115H, Carbon Dioxide Level 25, Anion Gap 11, Blood Urea Nitrogen 51H, Creatinine 2.1H, Estimat Glomerular Filtration Rate , Glucose Level 127H, Uric Acid 7.8H, Calcium Level 8.4L, Phosphorus Level 5.1H, Magnesium Level 2.9H, Total Bilirubin 0.3, Aspartate Amino Transf (AST/SGOT) 24, Alanine Aminotransferase (ALT/SGPT) 24, Alkaline Phosphatase 92, Troponin I 0.007, Pro-B -Type Natriuretic Peptide 989H, Total Protein 8.1, Albumin 2.4L, Globulin 5.7, Albumin/Globulin Ratio 0.4L Height (Feet): 5 Height (Inches): 5.00 Weight (Pounds): 181 General Appearance: no apparent distress Cardiovascular: normal rate Respiratory/Chest: decreased breath sounds Abdomen: distended Objective no other changes Estevan Orozco MD Jan 12, 2018 10:55
[2018-01-12 12:00] VITALS: BP 134/67
[2018-01-12] MEDS ORDERED: Vancomycin 1gm/D5W 275ml IVPB ONE ×2 (13:00)
--- NOTE | 2018-01-12 13:46 | Infectious Diseases Prog Note ---
Assessment/Plan Problems: (1) Aspiration pneumonia Assessment & Plan: with productive cough and fever, continue meropenem and vancomycin empirically, await sputum culture , monitor CXR to evaluate for new infiltrates (2) Sepsis Assessment & Plan: with gram positive cocci , grew from one bottle only , on vancomycin empirically pending blood culture , repeated blood culture to confirm is pending (3) CKD (chronic kidney disease) Assessment & Plan: now improving , continue IVF , renal is following (4) Diabetes Assessment & Plan: poorly controled , recommend tight glycemic control to keep blood glucose between 100-140 (5) Sacral decubitus ulcer, stage III Assessment & Plan: continue off loading , and local wound care as per hospital protocol (6) Fever Assessment & Plan: due to the above , improving , continue wide spectrum antibiotics Subjective ROS Limited/Unobtainable: Yes Allergies: Coded Allergies: No Known Allergies (Verified , 01/27/10) Subjective she has mild coughing and no significant oral secretions today , lying in bed comfortable, unresponsive, no fever today , NAD Objective Vital Signs Last 24 Hour Vital Signs Date Time Temp Pulse Resp B/P (MAP) Pulse Ox O2 Delivery O2 Flow Rate FiO2 01/12/18 12:00 97.7 87 20 134/67 (89) 97 97.7 01/12/18 09:00 Nasal Cannula 2.0 01/12/18 09:00 76 118/43 01/12/18 08:52 98.8 76 18 118/43 (68) 99 98.8 01/12/18 08:23 Nasal Cannula 2.0 28 01/12/18 08:23 97 Nasal Cannula 2.0 28 01/12/18 08:22 83 20 Nasal Cannula 2.0 28 01/12/18 04:00 97.9 76 17 106/44 (64) 97 97.9 01/12/18 00:00 98.5 82 15 118/55 (76) 98 98.5 01/11/18 21:04 83 148/49 01/11/18 21:00 Nasal Cannula 2.0 01/11/18 20:54 83 16 Nasal Cannula 2.0 28 01/11/18 20:54 Nasal Cannula 2.0 28 01/11/18 20:54 97 Nasal Cannula 2.0 28 01/11/18 20:00 98.2 88 17 148/49 (82) 100 98.2 01/11/18 15:46 124/55 01/11/18 15:40 98.6 77 20 114/56 (75) 99 98.6 Height (Feet): 5 Height (Inches): 5.00 Weight (Pounds): 181 General Appearance: WD/WN, no acute distress HEENT: normocephalic, atraumatic, anicteric, mucous membranes moist Respiratory/Chest: chest wall non-tender, lungs clear, normal breath sounds, no respiratory distress, no accessory muscle use Cardiovascular: normal peripheral pulses, normal rate, regular rhythm, no gallop/murmur, no JVD Abdomen: normal bowel sounds, soft, non tender, no organomegaly, non distended , no mass, no scars Extremities: no cyanosis, no clubbing Skin: no rash, no lesions, ulcers Neurologic/Psychiatric: unresponsiveness Microbiology Date/Time Source Procedure Growth Status 01/10/18 15:45 Blood Blood Culture - Preliminary Resulted 01/10/18 15:30 Blood Blood Culture - Preliminary NO GROWTH AFTER 24 HOURS Resulted Laboratory Tests Test 01/12/18 04:20 White Blood Count 8.5 K/UL (4.8-10.8) Red Blood Count 2.76 M/UL (4.20-5.40) L Hemoglobin 8.8 G/DL (12.0-16.0) L Hematocrit 26.3 % (37.0-47.0) L Mean Corpuscular Volume 95 FL (80-99) Mean Corpuscular Hemoglobin 31.7 PG (27.0-31.0) H Mean Corpuscular Hemoglobin Concent 33.3 G/DL (32.0-36.0) Red Cell Distribution Width 16.3 % (11.6-14.8) H Platelet Count 108 K/UL (150-450) L Mean Platelet Volume 10.1 FL (6.5-10.1) Neutrophils (%) (Auto) 60.9 % (45.0-75.0) Lymphocytes (%) (Auto) 31.3 % (20.0-45.0) Monocytes (%) (Auto) 6.7 % (1.0-10.0) Eosinophils (%) (Auto) 0.9 % (0.0-3.0) Basophils (%) (Auto) 0.2 % (0.0-2.0) Sodium Level 151 MMOL/L (136-145) H Potassium Level 3.6 MMOL/L (3.5-5.1) Chloride Level 115 MMOL/L (98-107) H Carbon Dioxide Level 25 MMOL/L (21-32) Anion Gap 11 mmol/L (5-15) Blood Urea Nitrogen 51 mg/dL (7-18) H Creatinine 2.1 MG/DL (0.55-1.30) H Estimat Glomerular Filtration Rate mL/min (>60) Glucose Level 127 MG/DL (74-106) H Uric Acid 7.8 MG/DL (2.6-7.2) H Calcium Level 8.4 MG/DL (8.5-10.1) L Phosphorus Level 5.1 MG/DL (2.5-4.9) H Magnesium Level 2.9 MG/DL (1.8-2.4) H Total Bilirubin 0.3 MG/DL (0.2-1.0) Aspartate Amino Transf (AST/SGOT) 24 U/L (15-37) Alanine Aminotransferase (ALT/SGPT) 24 U/L (12-78) Alkaline Phosphatase 92 U/L (46-116) Troponin I 0.007 ng/mL (0.000-0.056) Pro-B-Type Natriuretic Peptide 989 pg/mL (0-125) H Total Protein 8.1 G/DL (6.4-8.2) Albumin 2.4 G/DL (3.4-5.0) L Globulin 5.7 g/dL Albumin/Globulin Ratio 0.4 (1.0-2.7) L Current Medications Medications (Trade) Dose Ordered Sig/Nancy Route PRN Reason Start Time Stop Time Status Last Admin Dose Admin Acetaminophen (Tylenol) 650 mg Q4H PRN ORAL T>100.5 01/07/18 21:00 02/06/18 20:59 01/10/18 21:29 Albuterol/ Ipratropium (Albuterol/ Ipratropium) 3 ml Q4H PRN HHN Shortness of Breath 01/11/18 10:51 01/16/18 10:50 Amlodipine Besylate (Norvasc) 5 mg DAILY GT 01/13/18 09:00 02/06/18 00:25 Apixaban (Eliquis) 2.5 mg BID GT 01/08/18 09:00 02/06/18 08:59 01/12/18 09:55 Aspirin (ASA) 81 mg DAILY NG 01/09/18 09:00 02/08/18 08:59 01/12/18 09:55 Chlorhexidine Gluconate (Jossy-Hex 2%) 1 applic DAILY@2000 TOPIC 01/11/18 20:00 02/10/18 19:59 01/11/18 21:03 Clonidine HCl (Catapres Tab) 0.1 mg Q4H PRN ORAL sbp more than 160 01/07/18 21:00 02/06/18 20:59 Dextrose (Dextrose 50%) 25 ml STAT PRN IV Hypoglycemia 01/07/18 21:00 02/06/18 20:59 Dextrose (Dextrose 50%) 50 ml STAT PRN IV Hypoglycemia 01/07/18 21:00 02/06/18 20:59 Epoetin Wallace (Procrit (for non ESRD use)) 10,000 units SAT-SAT-SAT SUBQ 01/08/18 21:00 02/07/18 20:59 01/10/18 21:20 Heparin Sodium/ Sodium Chloride (Heparin 2000 units/Ns 1000ml premix) 2,000 unit ONCE PRN INJ PICC LINE 01/11/18 11:30 01/12/18 23:59 Insulin Aspart (NovoLOG) 12 units NOVOTIAC SUBQ 01/10/18 16:50 02/06/18 11:49 01/12/18 12:36 Insulin Aspart (NovoLOG) Please send pen with patient... BEFORE MEALS AND HS SUBQ 01/07/18 21:00 02/06/18 00:26 01/12/18 12:35 Insulin Detemir (Levemir) 24 units BID SUBQ 01/10/18 18:00 02/06/18 08:59 01/12/18 09:59 Lansoprazole (Prevacid) 30 mg Q12HR GT 01/10/18 21:00 02/09/18 20:59 01/12/18 09:55 Levetiracetam (Keppra) 750 mg Q12HR GT 01/07/18 21:00 02/06/18 00:25 01/12/18 09:54 Lidocaine HCl (Xylocaine 1% 30ml) 30 ml ONCE PRN INJ PICC LINE 01/11/18 11:30 01/12/18 23:59 Meropenem 500 mg/ Sodium Chloride 55 ml @ 110 mls/hr Q12H IV 01/10/18 17:00 01/15/18 16:59 01/11/18 05:03 Metoclopramide HCl (Reglan) 10 mg Q6H IVP 01/12/18 12:00 02/09/18 21:59 01/12/18 12:33 Nitroglycerin (Ntg) 1 patch Q24H TDERMAL 01/08/18 14:00 02/06/18 13:59 01/11/18 15:46 Ondansetron HCl (Zofran) 4 mg Q6H PRN IVP Nausea & Vomiting 01/07/18 21:00 02/06/18 20:59 Polyethylene Glycol (Miralax) 17 gm HSPRN PRN ORAL Constipation 01/07/18 21:00 02/06/18 20:59 Temazepam (Restoril) 15 mg HSPRN PRN ORAL Insomnia 01/07/18 21:00 01/14/18 20:59 Vancomycin HCl (Vanco rx to dose) 1 ea DAILY PRN MISC Per rx protocol 01/08/18 09:00 02/06/18 02:14 Vancomycin HCl 1 gm/Dextrose 275 ml @ 183.708 mls/hr ONCE ONCE IVPB 01/12/18 13:00 01/12/18 14:29 01/12/18 13:12 Ayala Forman M.D. Jan 12, 2018 13:46
[2018-01-12] MEDS: Nitroglycerin Patch 0.4mg TDERMAL SCH (13:53)
[2018-01-12 16:00] VITALS: BP 130/71
[2018-01-12 20:00] VITALS: BP 133/50
[2018-01-12] MEDS: Dyna-Hex 2% Top Sol 2oz TOPIC SCH (20:25)
[2018-01-13] VITALS: BP 113/48
[2018-01-13 04:00] VITALS: BP 127/47
[2018-01-13] MEDS: Meropenem 500 MG in NS 55 ML IV SCH ×2 (04:01→17:02)
[2018-01-13] MEDS: Metoclopramide 10mg/2ml Inj IVP SCH ×3 (05:47→17:13)
[2018-01-13] MEDS: NovoLOG Insulin Flexpen SUBQ SCH ×8 (05:48→21:37)
[2018-01-13 06:28] LABS: HEMATOCRIT 23.9 % (37.0-47.0); HEMOGLOBIN 7.9 G/DL (12.0-16.0); MEAN CORPUSCULAR VOLUME 96 FL (80-99); PLATELET COUNT 120 K/UL (150-450); RED CELL DISTRIBUTION WIDTH 16.5 % (11.6-14.8); WHITE BLOOD COUNT 8.4 K/UL (4.8-10.8)
[2018-01-13 06:47] LABS: ALANINE AMINOTRANSFERASE 16 U/L (12-78); ALBUMIN 2.3 G/DL (3.4-5.0); ALBUMIN/GLOBULIN RATIO 0.4 (1.0-2.7); ALKALINE PHOSPHATASE 83 U/L (46-116); ANION GAP 9 mmol/L (5-15); ASPARTATE AMINO TRANSFERASE 18 U/L (15-37); BILIRUBIN,TOTAL 0.3 MG/DL (0.2-1.0); BLOOD UREA NITROGEN 50 mg/dL (7-18); CALCIUM 8.2 MG/DL (8.5-10.1); CARBON DIOXIDE 26 MMOL/L (21-32); CHLORIDE 114 MMOL/L (98-107); CREATININE 1.9 MG/DL (0.55-1.30); POTASSIUM 3.7 MMOL/L (3.5-5.1); SODIUM 149 MMOL/L (136-145)
[2018-01-13 07:23] LABS: PHOSPHORUS 4.8 MG/DL (2.5-4.9)
[2018-01-13 08:00] VITALS: BP 128/51
[2018-01-13] MEDS: levETIRAcetam 500mg/5ml Liquid GT SCH ×2 (08:52→21:35)
[2018-01-13] MEDS: Eliquis 2.5mg tablet GT SCH ×2 (08:52→17:13)
[2018-01-13] MEDS: Aspirin Baby 81mg NG SCH (08:52)
[2018-01-13] MEDS: Levemir Flexpen SUBQ SCH ×2 (09:52→17:19)
--- NOTE | 2018-01-13 09:53 | Pulmonology Progress Note ---
Assessment/Plan Assessment/Plan ASSESSMENT sepsis with bacteremia ? 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 infected line ( has CL) sacral decub cx +Proteus, stool for C. 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 BS management short-acting pre-meal insulin ,tanner-acting Levemir and SSI prn HgA1c - 6.9 , at goal, hyperglycemia was likely induced by sepsis TSH WNL TF was held 2 to high residual Reglan added due to malfunctioning G-tube , GI consult requested, GT was changed to another GT with 20 [place] TF restarted at lower rate with strict aspiration/ reflux precautions ; increase rate as tolerated PPI bowel regimen instituted BP was managed with CCB Anti PLT with ASA A/coag with Eliquis HH closely monitored with goal to keep Hgb above 7 , s/p PRBC anemia w/up c/w anemia of chronic disease, high ferritin EPO added , Hgb down to 7.9 - will hold transfusion and check CBC in am but per PMD final decision Seizure precautions, continue Keppra Pain management addressed case discussed and evaluated by supervising physician Subjective Allergies: Coded Allergies: No Known Allergies (Verified , 01/27/10) Subjective fever last night, no leukocytosis no signs of resp distress creat down to 1.9. Na trending down 149 HH down to 7.9/23.9 Objective Last 24 Hour Vital Signs Date Time Temp Pulse Resp B/P (MAP) Pulse Ox O2 Delivery O2 Flow Rate FiO2 01/13/18 08:52 77 128/51 01/13/18 08:00 99.5 77 18 128/51 (76) 95 99.5 01/13/18 04:00 99.0 74 23 127/47 (73) 100 99.0 01/13/18 00:00 97.6 72 21 113/48 (69) 95 97.6 01/12/18 21:08 98.7 01/12/18 21:00 Nasal Cannula 2.0 01/12/18 20:38 101.1 01/12/18 20:00 101.1 86 24 133/50 (77) 100 101.1 01/12/18 16:00 98.0 85 18 130/71 (90) 98 98.0 01/12/18 13:53 134/67 01/12/18 12:00 97.7 87 20 134/67 (89) 97 97.7 Intake and Output 01/12/18 01/13/18 19:00 07:00 Intake Total 820 ml 560 ml Output Total 1200 ml Balance 820 ml -640 ml Intake Free Water 110 ml IV Total 775 ml Tube Feeding 45 ml 450 ml Output Urine Total 1200 ml # Bowel Movements 1 Objective General Appearance: no acute distress, elderly bedbound poorly responsive AA female HEENT: normocephalic, atraumatic, anicteric Respiratory/Chest: no respiratory distress, no accessory muscle use, few crackles at bases Cardiovascular: normal rate, R femoral CL intact Abdomen: normal bowel sounds, soft, non tender Extremities: no edema, pedal pulses normal Neurologic/Psychiatric: abnormal gait/bedridden Musculoskeletal: atrophy - BLE Microbiology Date/Time Source Procedure Growth Status 01/10/18 15:45 Blood Blood Culture - Preliminary Staphylococcus Sp Coag Neg Resulted 01/10/18 15:30 Blood Blood Culture - Preliminary Staphylococcus Sp Coag Neg Resulted 01/12/18 01:22 Sputum Expectorated Gram Stain - Final Resulted 01/12/18 01:22 Sputum Culture - Preliminary Gram Negative Bacillus 1 Gram Negative Bacillus 2 Resulted Laboratory Tests 01/13/18 05:30: White Blood Count 8.4, Red Blood Count 2.50L, Hemoglobin 7.9L, Hematocrit 23.9L , Mean Corpuscular Volume 96, Mean Corpuscular Hemoglobin 31.6H, Mean Corpuscular Hemoglobin Concent 33.0, Red Cell Distribution Width 16.5H, Platelet Count 120L, Mean Platelet Volume 10.2H, Neutrophils (%) (Auto) , Lymphocytes (%) (Auto) , Monocytes (%) (Auto) , Eosinophils (%) (Auto) , Basophils (%) (Auto) , Differential Total Cells Counted 100, Neutrophils % ( Manual) 73, Lymphocytes % (Manual) 19L, Monocytes % (Manual) 8, Eosinophils % ( Manual) 0, Basophils % (Manual) 0, Band Neutrophils 0, Platelet Estimate DecreasedL, Platelet Morphology Normal, Anisocytosis 1+, Sodium Level 149H, Potassium Level 3.7, Chloride Level 114H, Carbon Dioxide Level 26, Anion Gap 9, Blood Urea Nitrogen 50H, Creatinine 1.9H, Estimat Glomerular Filtration Rate , Glucose Level 104, Uric Acid 8.0H, Calcium Level 8.2L, Phosphorus Level 4.8, Magnesium Level 3.0H, Total Bilirubin 0.3, Aspartate Amino Transf (AST/SGOT) 18 , Alanine Aminotransferase (ALT/SGPT) 16, Alkaline Phosphatase 83, C-Reactive Protein, Quantitative 16.3H, Total Protein 7.7, Albumin 2.3L, Globulin 5.4, Albumin/Globulin Ratio 0.4L, Random Vancomycin Level 21.2 Current Medications Medications (Trade) Dose Ordered Sig/Nancy Route PRN Reason Start Time Stop Time Status Last Admin Dose Admin Acetaminophen (Tylenol) 650 mg Q4H PRN ORAL T>100.5 01/07/18 21:00 02/06/18 20:59 01/12/18 20:38 Albuterol/ Ipratropium (Albuterol/ Ipratropium) 3 ml Q4H PRN HHN Shortness of Breath 01/11/18 10:51 01/16/18 10:50 Amlodipine Besylate (Norvasc) 5 mg DAILY GT 01/13/18 09:00 02/06/18 00:25 01/13/18 08:52 Apixaban (Eliquis) 2.5 mg BID GT 01/08/18 09:00 02/06/18 08:59 01/13/18 08:52 Aspirin (ASA) 81 mg DAILY NG 01/09/18 09:00 02/08/18 08:59 01/13/18 08:52 Chlorhexidine Gluconate (Jossy-Hex 2%) 1 applic DAILY@2000 TOPIC 01/11/18 20:00 02/10/18 19:59 01/12/18 20:25 Clonidine HCl (Catapres Tab) 0.1 mg Q4H PRN ORAL sbp more than 160 01/07/18 21:00 02/06/18 20:59 Dextrose (Dextrose 50%) 25 ml STAT PRN IV Hypoglycemia 01/07/18 21:00 02/06/18 20:59 Dextrose (Dextrose 50%) 50 ml STAT PRN IV Hypoglycemia 01/07/18 21:00 02/06/18 20:59 Epoetin Wallace (Procrit (for non ESRD use)) 10,000 units SAT-SAT-SAT SUBQ 01/08/18 21:00 02/07/18 20:59 01/10/18 21:20 Insulin Aspart (NovoLOG) 12 units NOVOTIAC SUBQ 01/10/18 16:50 02/06/18 11:49 01/13/18 09:44 Insulin Aspart (NovoLOG) Please send pen with patient... BEFORE MEALS AND HS SUBQ 01/07/18 21:00 02/06/18 00:26 01/13/18 05:49 Insulin Detemir (Levemir) 24 units BID SUBQ 01/10/18 18:00 02/06/18 08:59 01/12/18 17:36 Lansoprazole (Prevacid) 30 mg Q12HR GT 01/10/18 21:00 02/09/18 20:59 01/13/18 08:52 Levetiracetam (Keppra) 750 mg Q12HR GT 01/07/18 21:00 02/06/18 00:25 01/13/18 08:52 Meropenem 500 mg/ Sodium Chloride 55 ml @ 110 mls/hr Q12H IV 01/10/18 17:00 01/15/18 16:59 01/13/18 04:01 Metoclopramide HCl (Reglan) 10 mg Q6H IVP 01/12/18 12:00 02/09/18 21:59 01/13/18 05:47 Nitroglycerin (Ntg) 1 patch Q24H TDERMAL 01/08/18 14:00 02/06/18 13:59 01/12/18 13:53 Ondansetron HCl (Zofran) 4 mg Q6H PRN IVP Nausea & Vomiting 01/07/18 21:00 02/06/18 20:59 01/12/18 15:32 Polyethylene Glycol (Miralax) 17 gm HSPRN PRN ORAL Constipation 01/07/18 21:00 02/06/18 20:59 Temazepam (Restoril) 15 mg HSPRN PRN ORAL Insomnia 01/07/18 21:00 01/14/18 20:59 Vancomycin HCl (Vanco rx to dose) 1 ea DAILY PRN MISC Per rx protocol 01/08/18 09:00 02/06/18 02:14 Radha Ortiz DIAGNOSTIC CARDIAC SONOGRAPHER Jan 13, 2018 09:53
--- NOTE | 2018-01-13 10:55 | Diagnostic Imaging Report ---
Indication: Shortness of breath Technique: One view of the chest Comparison: 01/12/2018 Findings: Lungs and pleural spaces are clear. Previously demonstrated interstitial prominence appears somewhat less striking on the current study. The heart size is normal. The aorta is tortuous ectatic and calcified. Impression: No acute process
[2018-01-13 12:00] VITALS: BP 120/54
--- NOTE | 2018-01-13 12:14 | General Surgery Progress Note ---
General Surgery-Progress Note Subjective Additional Comments no acute events. labs improving Objective Last 24 Hour Vital Signs Date Time Temp Pulse Resp B/P (MAP) Pulse Ox O2 Delivery O2 Flow Rate FiO2 01/13/18 09:53 Nasal Cannula 2.0 28 01/13/18 09:53 75 16 Nasal Cannula 2.0 28 01/13/18 09:53 98 Nasal Cannula 2.0 28 01/13/18 09:00 Nasal Cannula 2.0 01/13/18 08:52 77 128/51 01/13/18 08:00 99.5 77 18 128/51 (76) 95 99.5 01/13/18 04:00 99.0 74 23 127/47 (73) 100 99.0 01/13/18 00:00 97.6 72 21 113/48 (69) 95 97.6 01/12/18 21:08 98.7 01/12/18 21:00 Nasal Cannula 2.0 01/12/18 20:38 101.1 01/12/18 20:00 101.1 86 24 133/50 (77) 100 101.1 01/12/18 16:00 98.0 85 18 130/71 (90) 98 98.0 01/12/18 13:53 134/67 I&O Intake and Output 01/12/18 01/13/18 19:00 07:00 Intake Total 820 ml 560 ml Output Total 1200 ml Balance 820 ml -640 ml Intake Free Water 110 ml IV Total 775 ml Tube Feeding 45 ml 450 ml Output Urine Total 1200 ml # Bowel Movements 1 Dressing: other Wound: other Drains: other Cardiovascular: RSR Respiratory: clear Abdomen: soft, distended, present bowel sounds Extremities: other Laboratory Tests Test 01/13/18 05:30 White Blood Count 8.4 K/UL (4.8-10.8) Red Blood Count 2.50 M/UL (4.20-5.40) L Hemoglobin 7.9 G/DL (12.0-16.0) L Hematocrit 23.9 % (37.0-47.0) L Mean Corpuscular Volume 96 FL (80-99) Mean Corpuscular Hemoglobin 31.6 PG (27.0-31.0) H Mean Corpuscular Hemoglobin Concent 33.0 G/DL (32.0-36.0) Red Cell Distribution Width 16.5 % (11.6-14.8) H Platelet Count 120 K/UL (150-450) L Mean Platelet Volume 10.2 FL (6.5-10.1) H Neutrophils (%) (Auto) % (45.0-75.0) Lymphocytes (%) (Auto) % (20.0-45.0) Monocytes (%) (Auto) % (1.0-10.0) Eosinophils (%) (Auto) % (0.0-3.0) Basophils (%) (Auto) % (0.0-2.0) Differential Total Cells Counted 100 Neutrophils % (Manual) 73 % (45-75) Lymphocytes % (Manual) 19 % (20-45) L Monocytes % (Manual) 8 % (1-10) Eosinophils % (Manual) 0 % (0-3) Basophils % (Manual) 0 % (0-2) Band Neutrophils 0 % (0-8) Platelet Estimate Decreased L Platelet Morphology Normal Anisocytosis 1+ Sodium Level 149 MMOL/L (136-145) H Potassium Level 3.7 MMOL/L (3.5-5.1) Chloride Level 114 MMOL/L (98-107) H Carbon Dioxide Level 26 MMOL/L (21-32) Anion Gap 9 mmol/L (5-15) Blood Urea Nitrogen 50 mg/dL (7-18) H Creatinine 1.9 MG/DL (0.55-1.30) H Estimat Glomerular Filtration Rate mL/min (>60) Glucose Level 104 MG/DL (74-106) Uric Acid 8.0 MG/DL (2.6-7.2) H Calcium Level 8.2 MG/DL (8.5-10.1) L Phosphorus Level 4.8 MG/DL (2.5-4.9) Magnesium Level 3.0 MG/DL (1.8-2.4) H Total Bilirubin 0.3 MG/DL (0.2-1.0) Aspartate Amino Transf (AST/SGOT) 18 U/L (15-37) Alanine Aminotransferase (ALT/SGPT) 16 U/L (12-78) Alkaline Phosphatase 83 U/L (46-116) C-Reactive Protein, Quantitative 16.3 mg/dL (0.00-0.90) H Total Protein 7.7 G/DL (6.4-8.2) Albumin 2.3 G/DL (3.4-5.0) L Globulin 5.4 g/dL Albumin/Globulin Ratio 0.4 (1.0-2.7) L Random Vancomycin Level 21.2 ug/mL Plan Problems: (1) Sepsis Assessment & Plan: on IV Abx as per ID central line placed for meds over the weekend will discuss with ID about g tube abx vs IV may need PICC line if IV Abx required (2) Sacral decubitus ulcer, stage III Assessment & Plan: Stage III sacral full thickness pressure injury to sacrum (L )8cm x (W)6.2cm .full thickness injury at coccygeal area with approx 10% slough centrally with pink epithelialized borders.No odor or exudate noted. Full thickness ulcer noted to lateral R tibia(L)2cm x (W)1.4cm .Wound bed with approx 20% mixed slough /necrosis otherwise red with macerated borders .Scant non-odorous serous exudate noted to drsg upon removal. Periwound skin is dry. No edema noted. R heel soft but blanchable. Tx Plan: Cleanse Sacral wound with Saline ;Apply Triad Paste to sacral wound.Cavilon wipe Periwound and cover with Biatain drsg every other day and prn. Cleanse wound lateral RLE with saline.Apply Silvasorb Gel. Cavilon wipe to borders and cover with Biatain drsg every other day and prn. Recommend Surface support overlay on bed. Reposition at minimum every 2hours as tolerated. Off-load R heel with pillow Patient presented with above wound. Was seen as stage II prior and currently with stage III in small portion of wound. labs reviewed micro reviewed no acute surgical intervention necessary unfortunately given her medical state/condition wounds may deteriorate. will continue with maximal care as detailed above Taco Carter Jan 13, 2018 12:14
--- NOTE | 2018-01-13 13:00 | General Progress Note ---
Assessment/Plan Problem List: (1) ATN (acute tubular necrosis) ICD Codes: N17.0 - Acute kidney failure with tubular necrosis SNOMED: 98007279 (2) G tube feedings ICD Codes: Z93.1 - G tube feedings SNOMED: 850637834 (3) Dehydration ICD Codes: E86.0 - Dehydration SNOMED: 16516395 (4) Hyperglycemia ICD Codes: R73.9 - Hyperglycemia, unspecified SNOMED: 88060764 (5) Dementia ICD Codes: F03.90 - Dementia SNOMED: 14073526 (6) UTI (urinary tract infection) (7) Anemia ICD Codes: D64.9 - Anemia, unspecified SNOMED: 471071538 (8) Functional quadriplegia ICD Codes: R53.2 - Functional quadriplegia SNOMED: 791458549016418 Status: stable Status Narrative Hgb Lower Assessment/Plan Transfuse one unit On Meropenem / Vanco Now has groin line Reglan IV antibiotics- Vanco - Meropenem transfused previously GT feeding resume BS and BP check and medication adjustment per consultants repeat CXR Negative discussed with RN Subjective ROS Limited/Unobtainable: No Constitutional: Reports: other - non verbal Allergies: Coded Allergies: No Known Allergies (Verified , 01/27/10) Objective Last 24 Hour Vital Signs Date Time Temp Pulse Resp B/P (MAP) Pulse Ox O2 Delivery O2 Flow Rate FiO2 01/13/18 09:53 Nasal Cannula 2.0 28 01/13/18 09:53 75 16 Nasal Cannula 2.0 28 01/13/18 09:53 98 Nasal Cannula 2.0 28 01/13/18 09:00 Nasal Cannula 2.0 01/13/18 08:52 77 128/51 01/13/18 08:00 99.5 77 18 128/51 (76) 95 99.5 01/13/18 04:00 99.0 74 23 127/47 (73) 100 99.0 01/13/18 00:00 97.6 72 21 113/48 (69) 95 97.6 01/12/18 21:08 98.7 01/12/18 21:00 Nasal Cannula 2.0 01/12/18 20:38 101.1 01/12/18 20:00 101.1 86 24 133/50 (77) 100 101.1 01/12/18 16:00 98.0 85 18 130/71 (90) 98 98.0 01/12/18 13:53 134/67 Intake and Output 01/12/18 01/13/18 19:00 07:00 Intake Total 820 ml 560 ml Output Total 1200 ml Balance 820 ml -640 ml Intake Free Water 110 ml IV Total 775 ml Tube Feeding 45 ml 450 ml Output Urine Total 1200 ml # Bowel Movements 1 Laboratory Tests 01/13/18 05:30: White Blood Count 8.4, Red Blood Count 2.50L, Hemoglobin 7.9L, Hematocrit 23.9L , Mean Corpuscular Volume 96, Mean Corpuscular Hemoglobin 31.6H, Mean Corpuscular Hemoglobin Concent 33.0, Red Cell Distribution Width 16.5H, Platelet Count 120L, Mean Platelet Volume 10.2H, Neutrophils (%) (Auto) , Lymphocytes (%) (Auto) , Monocytes (%) (Auto) , Eosinophils (%) (Auto) , Basophils (%) (Auto) , Differential Total Cells Counted 100, Neutrophils % ( Manual) 73, Lymphocytes % (Manual) 19L, Monocytes % (Manual) 8, Eosinophils % ( Manual) 0, Basophils % (Manual) 0, Band Neutrophils 0, Platelet Estimate DecreasedL, Platelet Morphology Normal, Anisocytosis 1+, Sodium Level 149H, Potassium Level 3.7, Chloride Level 114H, Carbon Dioxide Level 26, Anion Gap 9, Blood Urea Nitrogen 50H, Creatinine 1.9H, Estimat Glomerular Filtration Rate , Glucose Level 104, Uric Acid 8.0H, Calcium Level 8.2L, Phosphorus Level 4.8, Magnesium Level 3.0H, Total Bilirubin 0.3, Aspartate Amino Transf (AST/SGOT) 18 , Alanine Aminotransferase (ALT/SGPT) 16, Alkaline Phosphatase 83, C-Reactive Protein, Quantitative 16.3H, Total Protein 7.7, Albumin 2.3L, Globulin 5.4, Albumin/Globulin Ratio 0.4L, Random Vancomycin Level 21.2 Height (Feet): 5 Height (Inches): 5.00 Weight (Pounds): 181 General Appearance: no apparent distress Neck: limited range of motion Respiratory/Chest: decreased breath sounds Abdomen: soft, other - GT+ Objective no other changes Estevan Orozco MD Jan 13, 2018 13:00
--- NOTE | 2018-01-13 13:15 | GI Progress Note ---
Assessment/Plan Problems: (1) Anemia ICD Codes: D64.9 - Anemia, unspecified SNOMED: 467747454 (2) Malfunction of gastrostomy tube ICD Codes: K94.23 - Gastrostomy malfunction SNOMED: 577183017 (3) Dehydration ICD Codes: E86.0 - Dehydration SNOMED: 74871332 (4) G tube feedings ICD Codes: Z93.1 - G tube feedings SNOMED: 939784561 (5) Diabetes ICD Codes: E11.9 - Type 2 diabetes mellitus without complications SNOMED: 50248064 (6) Dementia ICD Codes: F03.90 - Dementia SNOMED: 75994097 Status: stable, unchanged Status Narrative Discussed with Dr. Arana. Assessment/Plan GT 20french changed at bedside, okay to use. GTFs still not at goal, cont increasing reglan IV 10mg ATC DM management electrolyte correction ppi prn transfusions fu labs The patient was seen and examined at bedside and all new and available data was reviewed in the patients chart. I agree with the above findings, impression and plan. (Patient seen earlier today. Signature stamp does not reflect patient encounter time.). - Jamaal Arana MD Subjective Subjective limited Objective Last 24 Hour Vital Signs Date Time Temp Pulse Resp B/P (MAP) Pulse Ox O2 Delivery O2 Flow Rate FiO2 01/13/18 09:53 Nasal Cannula 2.0 28 01/13/18 09:53 75 16 Nasal Cannula 2.0 28 01/13/18 09:53 98 Nasal Cannula 2.0 28 01/13/18 09:00 Nasal Cannula 2.0 01/13/18 08:52 77 128/51 01/13/18 08:00 99.5 77 18 128/51 (76) 95 99.5 01/13/18 04:00 99.0 74 23 127/47 (73) 100 99.0 01/13/18 00:00 97.6 72 21 113/48 (69) 95 97.6 01/12/18 21:08 98.7 01/12/18 21:00 Nasal Cannula 2.0 01/12/18 20:38 101.1 01/12/18 20:00 101.1 86 24 133/50 (77) 100 101.1 01/12/18 16:00 98.0 85 18 130/71 (90) 98 98.0 01/12/18 13:53 134/67 Intake and Output 01/12/18 01/13/18 19:00 07:00 Intake Total 820 ml 560 ml Output Total 1200 ml Balance 820 ml -640 ml Intake Free Water 110 ml IV Total 775 ml Tube Feeding 45 ml 450 ml Output Urine Total 1200 ml # Bowel Movements 1 Laboratory Tests Test 01/13/18 05:30 White Blood Count 8.4 K/UL (4.8-10.8) Red Blood Count 2.50 M/UL (4.20-5.40) L Hemoglobin 7.9 G/DL (12.0-16.0) L Hematocrit 23.9 % (37.0-47.0) L Mean Corpuscular Volume 96 FL (80-99) Mean Corpuscular Hemoglobin 31.6 PG (27.0-31.0) H Mean Corpuscular Hemoglobin Concent 33.0 G/DL (32.0-36.0) Red Cell Distribution Width 16.5 % (11.6-14.8) H Platelet Count 120 K/UL (150-450) L Mean Platelet Volume 10.2 FL (6.5-10.1) H Neutrophils (%) (Auto) % (45.0-75.0) Lymphocytes (%) (Auto) % (20.0-45.0) Monocytes (%) (Auto) % (1.0-10.0) Eosinophils (%) (Auto) % (0.0-3.0) Basophils (%) (Auto) % (0.0-2.0) Differential Total Cells Counted 100 Neutrophils % (Manual) 73 % (45-75) Lymphocytes % (Manual) 19 % (20-45) L Monocytes % (Manual) 8 % (1-10) Eosinophils % (Manual) 0 % (0-3) Basophils % (Manual) 0 % (0-2) Band Neutrophils 0 % (0-8) Platelet Estimate Decreased L Platelet Morphology Normal Anisocytosis 1+ Sodium Level 149 MMOL/L (136-145) H Potassium Level 3.7 MMOL/L (3.5-5.1) Chloride Level 114 MMOL/L (98-107) H Carbon Dioxide Level 26 MMOL/L (21-32) Anion Gap 9 mmol/L (5-15) Blood Urea Nitrogen 50 mg/dL (7-18) H Creatinine 1.9 MG/DL (0.55-1.30) H Estimat Glomerular Filtration Rate mL/min (>60) Glucose Level 104 MG/DL (74-106) Uric Acid 8.0 MG/DL (2.6-7.2) H Calcium Level 8.2 MG/DL (8.5-10.1) L Phosphorus Level 4.8 MG/DL (2.5-4.9) Magnesium Level 3.0 MG/DL (1.8-2.4) H Total Bilirubin 0.3 MG/DL (0.2-1.0) Aspartate Amino Transf (AST/SGOT) 18 U/L (15-37) Alanine Aminotransferase (ALT/SGPT) 16 U/L (12-78) Alkaline Phosphatase 83 U/L (46-116) C-Reactive Protein, Quantitative 16.3 mg/dL (0.00-0.90) H Total Protein 7.7 G/DL (6.4-8.2) Albumin 2.3 G/DL (3.4-5.0) L Globulin 5.4 g/dL Albumin/Globulin Ratio 0.4 (1.0-2.7) L Random Vancomycin Level 21.2 ug/mL Height (Feet): 5 Height (Inches): 5.00 Weight (Pounds): 181 General Appearance: no apparent distress Cardiovascular: normal rate Respiratory/Chest: no respiratory distress Abdominal Exam: site - c/d/i Justus Foreman NP Jan 13, 2018 13:15
[2018-01-13] MEDS: Nitroglycerin Patch 0.4mg TDERMAL SCH (14:21)
[2018-01-13] MEDS ORDERED: Lidocaine 1% Plain 30 ml INJ PRN (14:30)
[2018-01-13] MEDS ORDERED: Heparin 2000 units/Ns 1000ml INJ PRN (14:30)
--- NOTE | 2018-01-13 15:28 | Infectious Diseases Prog Note ---
Assessment/Plan Problems: (1) Aspiration pneumonia Assessment & Plan: with productive cough and fever, continue meropenem and vancomycin empirically, pending sputum culture , monitor CXR to evaluate for new infiltrates (2) Sepsis Assessment & Plan: with coag negative staph , on vancomycin empirically , source possible sacral pressure wound will treat for tow weeks (3) CKD (chronic kidney disease) Assessment & Plan: now improving , continue IVF , renal is following (4) Diabetes Assessment & Plan: poorly controled , recommend tight glycemic control to keep blood glucose between 100-140 (5) Sacral decubitus ulcer, stage III Assessment & Plan: continue off loading , and local wound care as per hospital protocol (6) Fever Assessment & Plan: due to the above , improving , continue wide spectrum antibiotics Subjective ROS Limited/Unobtainable: Yes Allergies: Coded Allergies: No Known Allergies (Verified , 01/27/10) Subjective she has mild coughing and no significant oral secretions today , lying in bed comfortable, unresponsive, no fever today , NAD Objective Vital Signs Last 24 Hour Vital Signs Date Time Temp Pulse Resp B/P (MAP) Pulse Ox O2 Delivery O2 Flow Rate FiO2 01/13/18 14:21 120/54 01/13/18 12:00 99.3 76 19 120/54 (76) 98 99.3 01/13/18 09:53 Nasal Cannula 2.0 28 01/13/18 09:53 75 16 Nasal Cannula 2.0 28 01/13/18 09:53 98 Nasal Cannula 2.0 28 01/13/18 09:00 Nasal Cannula 2.0 01/13/18 08:52 77 128/51 01/13/18 08:00 99.5 77 18 128/51 (76) 95 99.5 01/13/18 04:00 99.0 74 23 127/47 (73) 100 99.0 01/13/18 00:00 97.6 72 21 113/48 (69) 95 97.6 01/12/18 21:08 98.7 01/12/18 21:00 Nasal Cannula 2.0 01/12/18 20:38 101.1 01/12/18 20:00 101.1 86 24 133/50 (77) 100 101.1 01/12/18 16:00 98.0 85 18 130/71 (90) 98 98.0 Height (Feet): 5 Height (Inches): 5.00 Weight (Pounds): 181 General Appearance: WD/WN, no acute distress HEENT: normocephalic, atraumatic, anicteric, mucous membranes moist, supple, no JVD Respiratory/Chest: chest wall non-tender, lungs clear, normal breath sounds, no respiratory distress, no accessory muscle use Cardiovascular: normal peripheral pulses, normal rate, regular rhythm, no gallop/murmur, no JVD Abdomen: normal bowel sounds, soft, non tender, no organomegaly, non distended , no mass, no scars Extremities: no cyanosis, no clubbing Skin: no rash, no lesions, ulcers Neurologic/Psychiatric: alert, unresponsiveness Lymphatic: no neck adenopathy, no groin adenopathy Musculoskeletal: normal muscle bulk Microbiology Date/Time Source Procedure Growth Status 01/10/18 15:45 Blood Blood Culture - Preliminary Staphylococcus Sp Coag Neg Resulted 01/10/18 15:30 Blood Blood Culture - Preliminary Staphylococcus Sp Coag Neg Resulted 01/12/18 01:22 Sputum Expectorated Gram Stain - Final Resulted 01/12/18 01:22 Sputum Culture - Preliminary Gram Negative Bacillus 1 Gram Negative Bacillus 2 Resulted Laboratory Tests Test 01/13/18 05:30 White Blood Count 8.4 K/UL (4.8-10.8) Red Blood Count 2.50 M/UL (4.20-5.40) L Hemoglobin 7.9 G/DL (12.0-16.0) L Hematocrit 23.9 % (37.0-47.0) L Mean Corpuscular Volume 96 FL (80-99) Mean Corpuscular Hemoglobin 31.6 PG (27.0-31.0) H Mean Corpuscular Hemoglobin Concent 33.0 G/DL (32.0-36.0) Red Cell Distribution Width 16.5 % (11.6-14.8) H Platelet Count 120 K/UL (150-450) L Mean Platelet Volume 10.2 FL (6.5-10.1) H Neutrophils (%) (Auto) % (45.0-75.0) Lymphocytes (%) (Auto) % (20.0-45.0) Monocytes (%) (Auto) % (1.0-10.0) Eosinophils (%) (Auto) % (0.0-3.0) Basophils (%) (Auto) % (0.0-2.0) Differential Total Cells Counted 100 Neutrophils % (Manual) 73 % (45-75) Lymphocytes % (Manual) 19 % (20-45) L Monocytes % (Manual) 8 % (1-10) Eosinophils % (Manual) 0 % (0-3) Basophils % (Manual) 0 % (0-2) Band Neutrophils 0 % (0-8) Platelet Estimate Decreased L Platelet Morphology Normal Anisocytosis 1+ Sodium Level 149 MMOL/L (136-145) H Potassium Level 3.7 MMOL/L (3.5-5.1) Chloride Level 114 MMOL/L (98-107) H Carbon Dioxide Level 26 MMOL/L (21-32) Anion Gap 9 mmol/L (5-15) Blood Urea Nitrogen 50 mg/dL (7-18) H Creatinine 1.9 MG/DL (0.55-1.30) H Estimat Glomerular Filtration Rate mL/min (>60) Glucose Level 104 MG/DL (74-106) Uric Acid 8.0 MG/DL (2.6-7.2) H Calcium Level 8.2 MG/DL (8.5-10.1) L Phosphorus Level 4.8 MG/DL (2.5-4.9) Magnesium Level 3.0 MG/DL (1.8-2.4) H Total Bilirubin 0.3 MG/DL (0.2-1.0) Aspartate Amino Transf (AST/SGOT) 18 U/L (15-37) Alanine Aminotransferase (ALT/SGPT) 16 U/L (12-78) Alkaline Phosphatase 83 U/L (46-116) C-Reactive Protein, Quantitative 16.3 mg/dL (0.00-0.90) H Total Protein 7.7 G/DL (6.4-8.2) Albumin 2.3 G/DL (3.4-5.0) L Globulin 5.4 g/dL Albumin/Globulin Ratio 0.4 (1.0-2.7) L Random Vancomycin Level 21.2 ug/mL Current Medications Medications (Trade) Dose Ordered Sig/Nancy Route PRN Reason Start Time Stop Time Status Last Admin Dose Admin Acetaminophen (Tylenol) 650 mg Q4H PRN ORAL T>100.5 01/07/18 21:00 02/06/18 20:59 01/12/18 20:38 Albuterol/ Ipratropium (Albuterol/ Ipratropium) 3 ml Q4H PRN HHN Shortness of Breath 01/11/18 10:51 01/16/18 10:50 Amlodipine Besylate (Norvasc) 5 mg DAILY GT 01/13/18 09:00 02/06/18 00:25 01/13/18 08:52 Apixaban (Eliquis) 2.5 mg BID GT 01/08/18 09:00 02/06/18 08:59 01/13/18 08:52 Aspirin (ASA) 81 mg DAILY NG 01/09/18 09:00 02/08/18 08:59 01/13/18 08:52 Chlorhexidine Gluconate (Jossy-Hex 2%) 1 applic DAILY@2000 TOPIC 01/13/18 20:00 02/12/18 19:59 Clonidine HCl (Catapres Tab) 0.1 mg Q4H PRN ORAL sbp more than 160 01/07/18 21:00 02/06/18 20:59 Dextrose (Dextrose 50%) 25 ml STAT PRN IV Hypoglycemia 01/07/18 21:00 02/06/18 20:59 Dextrose (Dextrose 50%) 50 ml STAT PRN IV Hypoglycemia 01/07/18 21:00 02/06/18 20:59 Epoetin Wallace (Procrit (for non ESRD use)) 10,000 units MON-WED-FRI SUBQ 01/08/18 21:00 02/07/18 20:59 01/10/18 21:20 Heparin Sodium/ Sodium Chloride (Heparin 2000 units/Ns 1000ml premix) 2,000 unit ONCE PRN INJ PICC 01/13/18 14:30 01/13/18 23:59 Insulin Aspart (NovoLOG) 12 units NOVOTIAC SUBQ 01/10/18 16:50 02/06/18 11:49 01/13/18 12:37 Insulin Aspart (NovoLOG) Please send pen with patient... BEFORE MEALS AND HS SUBQ 01/07/18 21:00 02/06/18 00:26 01/13/18 12:36 Insulin Detemir (Levemir) 24 units BID SUBQ 01/10/18 18:00 10/4/18 08:59 01/13/18 09:52 Lansoprazole (Prevacid) 30 mg Q12HR GT 01/10/18 21:00 02/09/18 20:59 01/13/18 08:52 Levetiracetam (Keppra) 750 mg Q12HR GT 01/07/18 21:00 02/06/18 00:25 01/13/18 08:52 Lidocaine HCl (Xylocaine 1% 30ml) 30 ml ONCE PRN INJ PICC 01/13/18 14:30 01/13/18 23:59 Meropenem 500 mg/ Sodium Chloride 55 ml @ 110 mls/hr Q12H IV 01/10/18 17:00 01/15/18 16:59 01/13/18 04:01 Metoclopramide HCl (Reglan) 10 mg Q6H IVP 01/12/18 12:00 02/09/18 21:59 01/13/18 12:33 Nitroglycerin (Ntg) 1 patch Q24H TDERMAL 01/08/18 14:00 02/06/18 13:59 01/13/18 14:21 Ondansetron HCl (Zofran) 4 mg Q6H PRN IVP Nausea & Vomiting 01/07/18 21:00 02/06/18 20:59 01/12/18 15:32 Polyethylene Glycol (Miralax) 17 gm HSPRN PRN ORAL Constipation 01/07/18 21:00 02/06/18 20:59 Temazepam (Restoril) 15 mg HSPRN PRN ORAL Insomnia 01/07/18 21:00 01/14/18 20:59 Vancomycin HCl (Vanco rx to dose) 1 ea DAILY PRN MISC Per rx protocol 01/08/18 09:00 02/06/18 02:14 Ayala Forman M.D. Jan 13, 2018 15:28
[2018-01-13 16:00] VITALS: BP 130/71
--- NOTE | 2018-01-13 18:37 | General Progress Note ---
Assessment/Plan Problem List: (1) CKD (chronic kidney disease) ICD Codes: N18.9 - Chronic kidney disease, unspecified SNOMED: 331845011 Qualifiers: Qualified Codes: N18.9 - Chronic kidney disease, unspecified (2) Hypernatremia ICD Codes: E87.0 - Hyperosmolality and hypernatremia SNOMED: 59986936 (3) Diabetes ICD Codes: E11.9 - Type 2 diabetes mellitus without complications SNOMED: 96084990 Assessment/Plan DC Novolog 12 units reduce Levemir to 20 units bid continue NISS Subjective ROS Limited/Unobtainable: Yes Allergies: Coded Allergies: No Known Allergies (Verified , 01/27/10) Subjective events noted - glucose values on lower side Objective Last 24 Hour Vital Signs Date Time Temp Pulse Resp B/P (MAP) Pulse Ox O2 Delivery O2 Flow Rate FiO2 01/13/18 16:00 98.0 85 18 130/71 (90) 98 98.0 01/13/18 14:21 120/54 01/13/18 12:00 99.3 76 19 120/54 (76) 98 99.3 01/13/18 09:53 Nasal Cannula 2.0 28 01/13/18 09:53 75 16 Nasal Cannula 2.0 28 01/13/18 09:53 98 Nasal Cannula 2.0 28 01/13/18 09:00 Nasal Cannula 2.0 01/13/18 08:52 77 128/51 01/13/18 08:00 99.5 77 18 128/51 (76) 95 99.5 01/13/18 04:00 99.0 74 23 127/47 (73) 100 99.0 01/13/18 00:00 97.6 72 21 113/48 (69) 95 97.6 01/12/18 21:08 98.7 01/12/18 21:00 Nasal Cannula 2.0 01/12/18 20:38 101.1 01/12/18 20:00 101.1 86 24 133/50 (77) 100 101.1 Intake and Output 01/12/18 01/13/18 19:00 07:00 Intake Total 820 ml 560 ml Output Total 1200 ml Balance 820 ml -640 ml Intake Free Water 110 ml IV Total 775 ml Tube Feeding 45 ml 450 ml Output Urine Total 1200 ml # Bowel Movements 1 Laboratory Tests 01/13/18 05:30: White Blood Count 8.4, Red Blood Count 2.50L, Hemoglobin 7.9L, Hematocrit 23.9L , Mean Corpuscular Volume 96, Mean Corpuscular Hemoglobin 31.6H, Mean Corpuscular Hemoglobin Concent 33.0, Red Cell Distribution Width 16.5H, Platelet Count 120L, Mean Platelet Volume 10.2H, Neutrophils (%) (Auto) , Lymphocytes (%) (Auto) , Monocytes (%) (Auto) , Eosinophils (%) (Auto) , Basophils (%) (Auto) , Differential Total Cells Counted 100, Neutrophils % ( Manual) 73, Lymphocytes % (Manual) 19L, Monocytes % (Manual) 8, Eosinophils % ( Manual) 0, Basophils % (Manual) 0, Band Neutrophils 0, Platelet Estimate DecreasedL, Platelet Morphology Normal, Anisocytosis 1+, Sodium Level 149H, Potassium Level 3.7, Chloride Level 114H, Carbon Dioxide Level 26, Anion Gap 9, Blood Urea Nitrogen 50H, Creatinine 1.9H, Estimat Glomerular Filtration Rate , Glucose Level 104, Uric Acid 8.0H, Calcium Level 8.2L, Phosphorus Level 4.8, Magnesium Level 3.0H, Total Bilirubin 0.3, Aspartate Amino Transf (AST/SGOT) 18 , Alanine Aminotransferase (ALT/SGPT) 16, Alkaline Phosphatase 83, C-Reactive Protein, Quantitative 16.3H, Total Protein 7.7, Albumin 2.3L, Globulin 5.4, Albumin/Globulin Ratio 0.4L, Random Vancomycin Level 21.2 Height (Feet): 5 Height (Inches): 5.00 Weight (Pounds): 181 General Appearance: lethargic Neck: normal alignment Cardiovascular: normal rate Respiratory/Chest: decreased breath sounds Abdomen: normal bowel sounds, other - PEG Extremities: other - left AKA Objective Current Medications Medications (Trade) Dose Ordered Sig/Nancy Route PRN Reason Start Time Stop Time Status Last Admin Dose Admin Acetaminophen (Tylenol) 650 mg Q4H PRN ORAL T>100.5 01/07/18 21:00 02/06/18 20:59 01/12/18 20:38 Albuterol/ Ipratropium (Albuterol/ Ipratropium) 3 ml Q4H PRN HHN Shortness of Breath 01/11/18 10:51 01/16/18 10:50 Amlodipine Besylate (Norvasc) 5 mg DAILY GT 01/13/18 09:00 02/06/18 00:25 01/13/18 08:52 Apixaban (Eliquis) 2.5 mg BID GT 01/08/18 09:00 02/06/18 08:59 01/13/18 17:13 Aspirin (ASA) 81 mg DAILY NG 01/09/18 09:00 02/08/18 08:59 01/13/18 08:52 Chlorhexidine Gluconate (Jossy-Hex 2%) 1 applic DAILY@2000 TOPIC 01/13/18 20:00 02/12/18 19:59 Clonidine HCl (Catapres Tab) 0.1 mg Q4H PRN ORAL sbp more than 160 01/07/18 21:00 02/06/18 20:59 Dextrose (Dextrose 50%) 25 ml STAT PRN IV Hypoglycemia 01/07/18 21:00 02/06/18 20:59 Dextrose (Dextrose 50%) 50 ml STAT PRN IV Hypoglycemia 01/07/18 21:00 02/06/18 20:59 Epoetin Wallace (Procrit (for non ESRD use)) 10,000 units MON-WED-FRI SUBQ 01/08/18 21:00 02/07/18 20:59 01/10/18 21:20 Heparin Sodium/ Sodium Chloride (Heparin 2000 units/Ns 1000ml premix) 2,000 unit ONCE PRN INJ PICC 01/13/18 14:30 01/13/18 23:59 Insulin Aspart (NovoLOG) 12 units NOVOTIAC SUBQ 01/10/18 16:50 02/06/18 11:49 01/13/18 12:37 Insulin Aspart (NovoLOG) Please send pen with patient... BEFORE MEALS AND HS SUBQ 01/07/18 21:00 02/06/18 00:26 01/13/18 12:36 Insulin Detemir (Levemir) 24 units BID SUBQ 01/10/18 18:00 02/06/18 08:59 01/13/18 17:19 Lansoprazole (Prevacid) 30 mg Q12HR GT 01/10/18 21:00 02/09/18 20:59 01/13/18 08:52 Levetiracetam (Keppra) 750 mg Q12HR GT 01/07/18 21:00 02/06/18 00:25 01/13/18 08:52 Lidocaine HCl (Xylocaine 1% 30ml) 30 ml ONCE PRN INJ PICC 01/13/18 14:30 01/13/18 23:59 Meropenem 500 mg/ Sodium Chloride 55 ml @ 110 mls/hr Q12H IV 01/10/18 17:00 01/15/18 16:59 01/13/18 17:02 Metoclopramide HCl (Reglan) 10 mg Q6H IVP 01/12/18 12:00 02/09/18 21:59 01/13/18 17:13 Nitroglycerin (Ntg) 1 patch Q24H TDERMAL 01/08/18 14:00 02/06/18 13:59 01/13/18 14:21 Ondansetron HCl (Zofran) 4 mg Q6H PRN IVP Nausea & Vomiting 01/07/18 21:00 02/06/18 20:59 01/12/18 15:32 Polyethylene Glycol (Miralax) 17 gm HSPRN PRN ORAL Constipation 01/07/18 21:00 02/06/18 20:59 Temazepam (Restoril) 15 mg HSPRN PRN ORAL Insomnia 01/07/18 21:00 01/14/18 20:59 Vancomycin HCl (Vanco rx to dose) 1 ea DAILY PRN MISC Per rx protocol 01/08/18 09:00 02/06/18 02:14 Item Value Date Time Bedside Blood Glucose 105 mg/dl 01/13/18 1719 Bedside Blood Glucose 189 mg/dl H 01/13/18 1237 Bedside Blood Glucose 116 mg/dl 01/13/18 0952 Bedside Blood Glucose 116 mg/dl 01/13/18 0549 Kodak Villeda MD Jan 13, 2018 18:36
[2018-01-13 20:00] VITALS: BP 109/57
[2018-01-13] MEDS: Dyna-Hex 2% Top Sol 2oz TOPIC SCH (21:34)
[2018-01-13] MEDS: Epogen (for non ESRD use) SUBQ SCH (21:36)
[2018-01-14] VITALS: BP 110/42
[2018-01-14] MEDS: Metoclopramide 10mg/2ml Inj IVP SCH ×3 (00:02→12:03)
[2018-01-14 04:00] VITALS: BP 130/59
[2018-01-14] MEDS: Meropenem 500 MG in NS 55 ML IV SCH (04:02)
[2018-01-14] MEDS: NovoLOG Insulin Flexpen SUBQ SCH ×4 (05:44→20:53)
[2018-01-14 06:53] LABS: BASOPHILS % (AUTO) 0.4 % (0.0-2.0); EOSINOPHILS % (AUTO) 1.7 % (0.0-3.0); HEMATOCRIT 29.1 % (37.0-47.0); HEMOGLOBIN 9.5 G/DL (12.0-16.0); LYMPHOCYTES % (AUTO) 35.1 % (20.0-45.0); MEAN CORPUSCULAR VOLUME 94 FL (80-99); MONOCYTES % (AUTO) 6.8 % (1.0-10.0); PLATELET COUNT 145 K/UL (150-450); RED BLOOD COUNT 3.11 M/UL (4.20-5.40); RED CELL DISTRIBUTION WIDTH 15.9 % (11.6-14.8)
[2018-01-14 06:59] LABS: ANION GAP 6 mmol/L (5-15); BLOOD UREA NITROGEN 45 mg/dL (7-18); CALCIUM 8.5 MG/DL (8.5-10.1); CARBON DIOXIDE 27 MMOL/L (21-32); CHLORIDE 114 MMOL/L (98-107); CREATININE 1.7 MG/DL (0.55-1.30); PHOSPHORUS 4.4 MG/DL (2.5-4.9); POTASSIUM 4.1 MMOL/L (3.5-5.1); SODIUM 147 MMOL/L (136-145)
--- NOTE | 2018-01-14 07:03 | General Progress Note ---
Assessment/Plan Problem List: (1) CKD (chronic kidney disease) ICD Codes: N18.9 - Chronic kidney disease, unspecified SNOMED: 668910066 Qualifiers: Qualified Codes: N18.9 - Chronic kidney disease, unspecified (2) Hypernatremia ICD Codes: E87.0 - Hyperosmolality and hypernatremia SNOMED: 26062041 (3) Diabetes ICD Codes: E11.9 - Type 2 diabetes mellitus without complications SNOMED: 17717312 Assessment/Plan continue Levemir 20 units bid continue NISS Subjective ROS Limited/Unobtainable: Yes Allergies: Coded Allergies: No Known Allergies (Verified , 01/27/10) Subjective events noted - glucose values on lower side Objective Last 24 Hour Vital Signs Date Time Temp Pulse Resp B/P (MAP) Pulse Ox O2 Delivery O2 Flow Rate FiO2 01/14/18 04:00 97.7 65 22 130/59 (82) 100 97.7 01/14/18 00:00 98.1 72 21 110/42 (64) 100 98.1 01/13/18 23:29 99.3 01/13/18 22:59 101.5 01/13/18 21:00 Nasal Cannula 2.0 01/13/18 20:03 97 Nasal Cannula 2.0 28 01/13/18 20:03 68 18 Nasal Cannula 2.0 28 01/13/18 20:03 Nasal Cannula 2.0 28 01/13/18 20:00 99.7 79 24 109/57 (74) 100 99.7 01/13/18 16:00 98.0 85 18 130/71 (90) 98 98.0 01/13/18 14:21 120/54 01/13/18 12:00 99.3 76 19 120/54 (76) 98 99.3 01/13/18 09:53 Nasal Cannula 2.0 28 01/13/18 09:53 75 16 Nasal Cannula 2.0 28 01/13/18 09:53 98 Nasal Cannula 2.0 28 01/13/18 09:00 Nasal Cannula 2.0 01/13/18 08:52 77 128/51 01/13/18 08:00 99.5 77 18 128/51 (76) 95 99.5 Intake and Output 01/13/18 01/14/18 19:00 07:00 Intake Total 460 ml 320 ml Output Total 1950 ml Balance 460 ml -1630 ml Intake Free Water 100 ml 50 ml Tube Feeding 360 ml 270 ml Output Urine Total 1950 ml # Bowel Movements 2 5 Laboratory Tests 01/14/18 06:15: White Blood Count 7.0, Red Blood Count 3.11L, Hemoglobin 9.5L, Hematocrit 29.1L , Mean Corpuscular Volume 94, Mean Corpuscular Hemoglobin 30.7, Mean Corpuscular Hemoglobin Concent 32.8, Red Cell Distribution Width 15.9H, Platelet Count 145L, Mean Platelet Volume 11.0H, Neutrophils (%) (Auto) 56.0, Lymphocytes (%) (Auto) 35.1, Monocytes (%) (Auto) 6.8, Eosinophils (%) (Auto) 1.7, Basophils (%) (Auto) 0.4, Sodium Level 147H, Potassium Level 4.1, Chloride Level 114H, Carbon Dioxide Level 27, Anion Gap 6, Blood Urea Nitrogen 45H, Creatinine 1.7H, Estimat Glomerular Filtration Rate , Glucose Level 96, Calcium Level 8.5, Phosphorus Level 4.4, Magnesium Level 2.8H Height (Feet): 5 Height (Inches): 5.00 Weight (Pounds): 181 General Appearance: no apparent distress Neck: normal alignment Cardiovascular: normal rate Respiratory/Chest: decreased breath sounds Abdomen: normal bowel sounds, other - PEG Extremities: other - L AKA Objective Current Medications Medications (Trade) Dose Ordered Sig/Nnacy Route PRN Reason Start Time Stop Time Status Last Admin Dose Admin Acetaminophen (Tylenol) 650 mg Q4H PRN ORAL T>100.5 01/07/18 21:00 02/06/18 20:59 01/13/18 22:59 Albuterol/ Ipratropium (Albuterol/ Ipratropium) 3 ml Q4H PRN HHN Shortness of Breath 01/11/18 10:51 01/16/18 10:50 Amlodipine Besylate (Norvasc) 5 mg DAILY GT 01/13/18 09:00 02/06/18 00:25 01/13/18 08:52 Apixaban (Eliquis) 2.5 mg BID GT 01/08/18 09:00 02/06/18 08:59 01/13/18 17:13 Aspirin (ASA) 81 mg DAILY NG 01/09/18 09:00 02/08/18 08:59 01/13/18 08:52 Chlorhexidine Gluconate (Jossy-Hex 2%) 1 applic DAILY@2000 TOPIC 01/13/18 20:00 02/12/18 19:59 01/13/18 21:34 Clonidine HCl (Catapres Tab) 0.1 mg Q4H PRN ORAL sbp more than 160 01/07/18 21:00 02/06/18 20:59 Dextrose (Dextrose 50%) 25 ml STAT PRN IV Hypoglycemia 01/07/18 21:00 02/06/18 20:59 Dextrose (Dextrose 50%) 50 ml STAT PRN IV Hypoglycemia 01/07/18 21:00 02/06/18 20:59 Epoetin Wallace (Procrit (for non ESRD use)) 10,000 units SAT-SAT-SAT SUBQ 01/08/18 21:00 02/07/18 20:59 01/13/18 21:36 Insulin Aspart (NovoLOG) Please send pen with patient... BEFORE MEALS AND HS SUBQ 01/07/18 21:00 02/06/18 00:26 01/13/18 21:37 Insulin Detemir (Levemir) 20 units BID SUBQ 01/14/18 09:00 02/06/18 08:59 Lansoprazole (Prevacid) 30 mg Q12HR GT 01/10/18 21:00 02/09/18 20:59 01/13/18 21:35 Levetiracetam (Keppra) 750 mg Q12HR GT 01/07/18 21:00 02/06/18 00:25 01/13/18 21:35 Meropenem 500 mg/ Sodium Chloride 55 ml @ 110 mls/hr Q12H IV 01/10/18 17:00 01/15/18 16:59 01/14/18 04:02 Metoclopramide HCl (Reglan) 10 mg Q6H IVP 01/12/18 12:00 02/09/18 21:59 01/14/18 05:45 Nitroglycerin (Ntg) 1 patch Q24H TDERMAL 01/08/18 14:00 02/06/18 13:59 01/13/18 14:21 Ondansetron HCl (Zofran) 4 mg Q6H PRN IVP Nausea & Vomiting 01/07/18 21:00 02/06/18 20:59 01/12/18 15:32 Polyethylene Glycol (Miralax) 17 gm HSPRN PRN ORAL Constipation 01/07/18 21:00 02/06/18 20:59 Temazepam (Restoril) 15 mg HSPRN PRN ORAL Insomnia 01/07/18 21:00 01/14/18 20:59 Vancomycin HCl (Vanco rx to dose) 1 ea DAILY PRN MISC Per rx protocol 01/08/18 09:00 02/06/18 02:14 Item Value Date Time Bedside Blood Glucose 84 mg/dl 01/14/18 0544 Bedside Blood Glucose 124 mg/dl H 01/13/18 2137 Bedside Blood Glucose 105 mg/dl 01/13/18 1719 Bedside Blood Glucose 189 mg/dl H 01/13/18 1237 Bedside Blood Glucose 116 mg/dl 01/13/18 0952 Bedside Blood Glucose 116 mg/dl 01/13/18 0549 Kodak Villeda MD Jan 14, 2018 07:03
[2018-01-14 08:00] VITALS: BP 132/51
[2018-01-14] MEDS: Heparin 2000 units/Ns 1000ml INJ SCH (08:30)
[2018-01-14] MEDS: Lidocaine 1% Plain 30 ml INJ SCH (08:30)
[2018-01-14] MEDS: Aspirin Baby 81mg NG SCH (09:57)
[2018-01-14] MEDS: Eliquis 2.5mg tablet GT SCH ×2 (09:58→19:41)
[2018-01-14] MEDS: levETIRAcetam 500mg/5ml Liquid GT SCH ×2 (09:58→20:34)
[2018-01-14 12:00] VITALS: BP 132/51
[2018-01-14] MEDS: Levemir Flexpen SUBQ SCH ×2 (12:00→18:00)
--- NOTE | 2018-01-14 12:22 | General Surgery Progress Note ---
General Surgery-Progress Note Subjective Additional Comments improving. labs improved. no acute events. Objective Last 24 Hour Vital Signs Date Time Temp Pulse Resp B/P (MAP) Pulse Ox O2 Delivery O2 Flow Rate FiO2 01/14/18 09:58 73 133/51 01/14/18 09:00 Nasal Cannula 2.0 01/14/18 08:20 Nasal Cannula 2.0 28 01/14/18 08:20 98 Nasal Cannula 2.0 28 01/14/18 08:20 73 18 Nasal Cannula 2.0 28 01/14/18 08:00 97.7 73 16 132/51 (78) 99 97.7 01/14/18 04:00 97.7 65 22 130/59 (82) 100 97.7 01/14/18 00:00 98.1 72 21 110/42 (64) 100 98.1 01/13/18 23:29 99.3 01/13/18 22:59 101.5 01/13/18 21:00 Nasal Cannula 2.0 01/13/18 20:03 97 Nasal Cannula 2.0 28 01/13/18 20:03 68 18 Nasal Cannula 2.0 28 01/13/18 20:03 Nasal Cannula 2.0 28 01/13/18 20:00 99.7 79 24 109/57 (74) 100 99.7 01/13/18 16:00 98.0 85 18 130/71 (90) 98 98.0 01/13/18 14:21 120/54 I&O Intake and Output 01/13/18 01/14/18 19:00 07:00 Intake Total 460 ml 510 ml Output Total 1950 ml Balance 460 ml -1440 ml Intake Free Water 100 ml 50 ml IV Total 55 ml Tube Feeding 360 ml 405 ml Output Urine Total 1950 ml # Bowel Movements 2 5 Dressing: dry Wound: clean, dry, intact Drains: other Cardiovascular: RSR Respiratory: clear Abdomen: soft, distended, present bowel sounds Extremities: other Laboratory Tests Test 01/14/18 06:15 White Blood Count 7.0 K/UL (4.8-10.8) Red Blood Count 3.11 M/UL (4.20-5.40) L Hemoglobin 9.5 G/DL (12.0-16.0) L Hematocrit 29.1 % (37.0-47.0) L Mean Corpuscular Volume 94 FL (80-99) Mean Corpuscular Hemoglobin 30.7 PG (27.0-31.0) Mean Corpuscular Hemoglobin Concent 32.8 G/DL (32.0-36.0) Red Cell Distribution Width 15.9 % (11.6-14.8) H Platelet Count 145 K/UL (150-450) L Mean Platelet Volume 11.0 FL (6.5-10.1) H Neutrophils (%) (Auto) 56.0 % (45.0-75.0) Lymphocytes (%) (Auto) 35.1 % (20.0-45.0) Monocytes (%) (Auto) 6.8 % (1.0-10.0) Eosinophils (%) (Auto) 1.7 % (0.0-3.0) Basophils (%) (Auto) 0.4 % (0.0-2.0) Sodium Level 147 MMOL/L (136-145) H Potassium Level 4.1 MMOL/L (3.5-5.1) Chloride Level 114 MMOL/L (98-107) H Carbon Dioxide Level 27 MMOL/L (21-32) Anion Gap 6 mmol/L (5-15) Blood Urea Nitrogen 45 mg/dL (7-18) H Creatinine 1.7 MG/DL (0.55-1.30) H Estimat Glomerular Filtration Rate mL/min (>60) Glucose Level 96 MG/DL (74-106) Calcium Level 8.5 MG/DL (8.5-10.1) Phosphorus Level 4.4 MG/DL (2.5-4.9) Magnesium Level 2.8 MG/DL (1.8-2.4) H Plan Problems: (1) Sepsis Assessment & Plan: on IV Abx as per ID central line placed for meds over the weekend will discuss with ID about g tube abx vs IV may need PICC line if IV Abx required (2) Sacral decubitus ulcer, stage III Assessment & Plan: Stage III sacral full thickness pressure injury to sacrum (L )8cm x (W)6.2cm .full thickness injury at coccygeal area with approx 10% slough centrally with pink epithelialized borders.No odor or exudate noted. Full thickness ulcer noted to lateral R tibia(L)2cm x (W)1.4cm .Wound bed with approx 20% mixed slough /necrosis otherwise red with macerated borders .Scant non-odorous serous exudate noted to drsg upon removal. Periwound skin is dry. No edema noted. R heel soft but blanchable. Tx Plan: Cleanse Sacral wound with Saline ;Apply Triad Paste to sacral wound.Cavilon wipe Periwound and cover with Biatain drsg every other day and prn. Cleanse wound lateral RLE with saline.Apply Silvasorb Gel. Cavilon wipe to borders and cover with Biatain drsg every other day and prn. Recommend Surface support overlay on bed. Reposition at minimum every 2hours as tolerated. Off-load R heel with pillow Patient presented with above wound. Was seen as stage II prior and currently with stage III in small portion of wound. labs reviewed micro reviewed no acute surgical intervention necessary unfortunately given her medical state/condition wounds may deteriorate. will continue with maximal care as detailed above Taco Carter Jan 14, 2018 12:22
--- NOTE | 2018-01-14 13:24 | Pulmonology Progress Note ---
Assessment/Plan Problems: (1) Sepsis (2) ATN (acute tubular necrosis) (3) Hyperglycemia (4) G tube feedings (5) Decubital ulcer (6) Functional quadriplegia (7) Seizure disorder (8) Sacral decubitus ulcer, stage III Assessment/Plan all reivewed looks comfortable continue abx iv fluids check electrolytes, BUN/creatinine decreasing sliding scale diabetic diet f/u ID and endo recommendations Subjective ROS Limited/Unobtainable: No Constitutional: Reports: no symptoms HEENT: Repors: no symptoms Allergies: Coded Allergies: No Known Allergies (Verified , 01/27/10) Objective Last 24 Hour Vital Signs Date Time Temp Pulse Resp B/P (MAP) Pulse Ox O2 Delivery O2 Flow Rate FiO2 01/14/18 09:58 73 133/51 01/14/18 09:00 Nasal Cannula 2.0 01/14/18 08:20 Nasal Cannula 2.0 28 01/14/18 08:20 98 Nasal Cannula 2.0 28 01/14/18 08:20 73 18 Nasal Cannula 2.0 28 01/14/18 08:00 97.7 73 16 132/51 (78) 99 97.7 01/14/18 04:00 97.7 65 22 130/59 (82) 100 97.7 01/14/18 00:00 98.1 72 21 110/42 (64) 100 98.1 01/13/18 23:29 99.3 01/13/18 22:59 101.5 01/13/18 21:00 Nasal Cannula 2.0 01/13/18 20:03 97 Nasal Cannula 2.0 28 01/13/18 20:03 68 18 Nasal Cannula 2.0 28 01/13/18 20:03 Nasal Cannula 2.0 28 01/13/18 20:00 99.7 79 24 109/57 (74) 100 99.7 01/13/18 16:00 98.0 85 18 130/71 (90) 98 98.0 01/13/18 14:21 120/54 Intake and Output 01/13/18 01/14/18 19:00 07:00 Intake Total 460 ml 510 ml Output Total 1950 ml Balance 460 ml -1440 ml Intake Free Water 100 ml 50 ml IV Total 55 ml Tube Feeding 360 ml 405 ml Output Urine Total 1950 ml # Bowel Movements 2 5 General Appearance: WD/WN HEENT: normocephalic, atraumatic Respiratory/Chest: chest wall non-tender, lungs clear Breasts: no masses Cardiovascular: normal peripheral pulses Abdomen: normal bowel sounds, soft, non tender Genitourinary: normal external genitalia Skin: no rash, no lesions Microbiology Date/Time Source Procedure Growth Status 01/12/18 01:22 Sputum Expectorated Gram Stain - Final Resulted 01/12/18 01:22 Sputum Culture - Preliminary Pseudomonas Aeruginosa Escherichia Coli Resulted Laboratory Tests 01/14/18 06:15: White Blood Count 7.0, Red Blood Count 3.11L, Hemoglobin 9.5L, Hematocrit 29.1L , Mean Corpuscular Volume 94, Mean Corpuscular Hemoglobin 30.7, Mean Corpuscular Hemoglobin Concent 32.8, Red Cell Distribution Width 15.9H, Platelet Count 145L, Mean Platelet Volume 11.0H, Neutrophils (%) (Auto) 56.0, Lymphocytes (%) (Auto) 35.1, Monocytes (%) (Auto) 6.8, Eosinophils (%) (Auto) 1.7, Basophils (%) (Auto) 0.4, Sodium Level 147H, Potassium Level 4.1, Chloride Level 114H, Carbon Dioxide Level 27, Anion Gap 6, Blood Urea Nitrogen 45H, Creatinine 1.7H, Estimat Glomerular Filtration Rate , Glucose Level 96, Calcium Level 8.5, Phosphorus Level 4.4, Magnesium Level 2.8H Current Medications Medications (Trade) Dose Ordered Sig/Nancy Route PRN Reason Start Time Stop Time Status Last Admin Dose Admin Acetaminophen (Tylenol) 650 mg Q4H PRN ORAL T>100.5 01/07/18 21:00 02/06/18 20:59 01/13/18 22:59 Albuterol/ Ipratropium (Albuterol/ Ipratropium) 3 ml Q4H PRN HHN Shortness of Breath 01/11/18 10:51 01/16/18 10:50 Amlodipine Besylate (Norvasc) 5 mg DAILY GT 01/13/18 09:00 02/06/18 00:25 01/14/18 09:58 Apixaban (Eliquis) 2.5 mg BID GT 01/08/18 09:00 02/06/18 08:59 01/14/18 09:58 Aspirin (ASA) 81 mg DAILY NG 01/09/18 09:00 02/08/18 08:59 01/14/18 09:57 Chlorhexidine Gluconate (Jossy-Hex 2%) 1 applic DAILY@2000 TOPIC 01/13/18 20:00 02/12/18 19:59 01/13/18 21:34 Clonidine HCl (Catapres Tab) 0.1 mg Q4H PRN ORAL sbp more than 160 01/07/18 21:00 02/06/18 20:59 Dextrose (Dextrose 50%) 25 ml STAT PRN IV Hypoglycemia 01/07/18 21:00 02/06/18 20:59 Dextrose (Dextrose 50%) 50 ml STAT PRN IV Hypoglycemia 01/07/18 21:00 02/06/18 20:59 Epoetin Wallace (Procrit (for non ESRD use)) 10,000 units SAT-SAT-SAT SUBQ 01/08/18 21:00 02/07/18 20:59 01/13/18 21:36 Heparin Sodium/ Sodium Chloride (Heparin 2000 units/Ns 1000ml premix) 2,000 unit ONCE INJ 01/14/18 08:30 01/16/18 08:29 Insulin Aspart (NovoLOG) Please send pen with patient... BEFORE MEALS AND HS SUBQ 01/07/18 21:00 02/06/18 00:26 01/14/18 12:01 Insulin Detemir (Levemir) 20 units BID SUBQ 01/14/18 09:00 02/06/18 08:59 01/14/18 12:00 Lansoprazole (Prevacid) 30 mg Q12HR GT 01/10/18 21:00 02/09/18 20:59 01/14/18 09:58 Levetiracetam (Keppra) 750 mg Q12HR GT 01/07/18 21:00 02/06/18 00:25 01/14/18 09:58 Lidocaine HCl (Xylocaine 1% 30ml) 30 ml ONCE INJ 01/14/18 08:30 01/16/18 08:29 Meropenem 500 mg/ Sodium Chloride 55 ml @ 110 mls/hr Q12H IV 01/10/18 17:00 01/15/18 16:59 01/14/18 04:02 Metoclopramide HCl (Reglan) 10 mg Q6H IVP 01/12/18 12:00 02/09/18 21:59 01/14/18 12:03 Nitroglycerin (Ntg) 1 patch Q24H TDERMAL 01/08/18 14:00 02/06/18 13:59 01/13/18 14:21 Ondansetron HCl (Zofran) 4 mg Q6H PRN IVP Nausea & Vomiting 01/07/18 21:00 02/06/18 20:59 01/12/18 15:32 Polyethylene Glycol (Miralax) 17 gm HSPRN PRN ORAL Constipation 01/07/18 21:00 02/06/18 20:59 Temazepam (Restoril) 15 mg HSPRN PRN ORAL Insomnia 01/07/18 21:00 01/14/18 20:59 Vancomycin HCl (Vanco rx to dose) 1 ea DAILY PRN MISC Per rx protocol 01/08/18 09:00 02/06/18 02:14 Saira Lazcano MD Jan 14, 2018 13:24
[2018-01-14] MEDS: Nitroglycerin Patch 0.4mg TDERMAL SCH (13:39)
[2018-01-14] MEDS ORDERED: Tubing IV Secondary IV ONE (15:11)
[2018-01-14] MEDS ORDERED: D5W 275ml ONE (15:11)
--- NOTE | 2018-01-14 15:30 | Diagnostic Imaging Report ---
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 The left upper extremity was prepped with alcohol. All elements of maximal sterile barrier technique were followed including usage of a cap, mask, sterile gown, sterile gloves, hand hygiene and a large sterile sheet. Sonographic evaluation of the upper extremity was performed demonstrating a patent and compressible cephalic vein. Access was obtained under real-time ultrasound guidance (with utilization of sterile gel and sterile probe cover) and digital image was saved and archived. An .018 wire was introduced. Needle exchanged for a 5 Jamaican peel-away sheath. Measurements were obtained. A 5 [place]ican dual-lumen Power PICC line catheter was cut to 45 cm and introduced over the wire. Peel-away sheath and wire were removed.Catheter was secured to the skin using 2-0 Prolene suture. Both ports aspirate and flush easily. Fluoroscopic images show distal tip in the superior vena cava. Total fluoroscopic time 0.3 minutes. Impression: Successful placement of an upper extremity PICC line catheter
--- NOTE | 2018-01-14 15:50 | Infectious Diseases Prog Note ---
Assessment/Plan Problems: (1) Aspiration pneumonia Assessment & Plan: with productive cough and fever, due to pseudomonas aeruginosa and MDR E.coli , resistant to meropenem, so will switch to amikacin to cover both for three weeks and continue vancomycin to cover her bacteremia , monitor CXR to evaluate for new infiltrates (2) Sepsis Assessment & Plan: with staph warneri , already on vancomycin empirically , source possible sacral pressure wound. will repeat blood culture to confirm clearance and treat for two weeks total (3) CKD (chronic kidney disease) Assessment & Plan: now improving , continue IVF , renal is following (4) Diabetes Assessment & Plan: poorly controled , recommend tight glycemic control to keep blood glucose between 100-140 (5) Sacral decubitus ulcer, stage III Assessment & Plan: continue off loading , and local wound care as per hospital protocol (6) Fever Assessment & Plan: due to the above , improving , continue wide spectrum antibiotics Subjective ROS Limited/Unobtainable: Yes Allergies: Coded Allergies: No Known Allergies (Verified , 01/27/10) Subjective she has no cough and no significant oral secretions , lying in bed comfortable, unresponsive, no fever today , NAD Objective Vital Signs Last 24 Hour Vital Signs Date Time Temp Pulse Resp B/P (MAP) Pulse Ox O2 Delivery O2 Flow Rate FiO2 01/14/18 13:39 128/56 01/14/18 12:00 97.7 73 16 132/51 (78) 99 97.7 01/14/18 09:58 73 133/51 01/14/18 09:00 Nasal Cannula 2.0 01/14/18 08:20 Nasal Cannula 2.0 28 01/14/18 08:20 98 Nasal Cannula 2.0 28 01/14/18 08:20 73 18 Nasal Cannula 2.0 28 01/14/18 08:00 97.7 73 16 132/51 (78) 99 97.7 01/14/18 04:00 97.7 65 22 130/59 (82) 100 97.7 01/14/18 00:00 98.1 72 21 110/42 (64) 100 98.1 01/13/18 23:29 99.3 01/13/18 22:59 101.5 01/13/18 21:00 Nasal Cannula 2.0 01/13/18 20:03 97 Nasal Cannula 2.0 28 01/13/18 20:03 68 18 Nasal Cannula 2.0 28 01/13/18 20:03 Nasal Cannula 2.0 28 01/13/18 20:00 99.7 79 24 109/57 (74) 100 99.7 01/13/18 16:00 98.0 85 18 130/71 (90) 98 98.0 Height (Feet): 5 Height (Inches): 5.00 Weight (Pounds): 181 General Appearance: WD/WN, no acute distress HEENT: normocephalic, atraumatic, anicteric, mucous membranes moist, supple, no JVD Respiratory/Chest: chest wall non-tender, no respiratory distress, no accessory muscle use, decreased breath sounds, crackles/rales Cardiovascular: normal peripheral pulses, normal rate, regular rhythm, no gallop/murmur, no JVD Abdomen: normal bowel sounds, soft, non tender, no organomegaly, non distended , no mass, no scars Extremities: no cyanosis, no clubbing Skin: no rash, no lesions, ulcers - sacral pressure wound Neurologic/Psychiatric: unresponsiveness Lymphatic: no neck adenopathy, no groin adenopathy Musculoskeletal: normal muscle bulk Microbiology Date/Time Source Procedure Growth Status 01/12/18 01:22 Sputum Expectorated Gram Stain - Final Resulted 01/12/18 01:22 Sputum Culture - Preliminary Pseudomonas Aeruginosa Escherichia Coli Resulted Laboratory Tests Test 01/14/18 06:15 White Blood Count 7.0 K/UL (4.8-10.8) Red Blood Count 3.11 M/UL (4.20-5.40) L Hemoglobin 9.5 G/DL (12.0-16.0) L Hematocrit 29.1 % (37.0-47.0) L Mean Corpuscular Volume 94 FL (80-99) Mean Corpuscular Hemoglobin 30.7 PG (27.0-31.0) Mean Corpuscular Hemoglobin Concent 32.8 G/DL (32.0-36.0) Red Cell Distribution Width 15.9 % (11.6-14.8) H Platelet Count 145 K/UL (150-450) L Mean Platelet Volume 11.0 FL (6.5-10.1) H Neutrophils (%) (Auto) 56.0 % (45.0-75.0) Lymphocytes (%) (Auto) 35.1 % (20.0-45.0) Monocytes (%) (Auto) 6.8 % (1.0-10.0) Eosinophils (%) (Auto) 1.7 % (0.0-3.0) Basophils (%) (Auto) 0.4 % (0.0-2.0) Sodium Level 147 MMOL/L (136-145) H Potassium Level 4.1 MMOL/L (3.5-5.1) Chloride Level 114 MMOL/L (98-107) H Carbon Dioxide Level 27 MMOL/L (21-32) Anion Gap 6 mmol/L (5-15) Blood Urea Nitrogen 45 mg/dL (7-18) H Creatinine 1.7 MG/DL (0.55-1.30) H Estimat Glomerular Filtration Rate mL/min (>60) Glucose Level 96 MG/DL (74-106) Calcium Level 8.5 MG/DL (8.5-10.1) Phosphorus Level 4.4 MG/DL (2.5-4.9) Magnesium Level 2.8 MG/DL (1.8-2.4) H Current Medications Medications (Trade) Dose Ordered Sig/Nancy Route PRN Reason Start Time Stop Time Status Last Admin Dose Admin Acetaminophen (Tylenol) 650 mg Q4H PRN ORAL T>100.5 01/07/18 21:00 02/06/18 20:59 01/13/18 22:59 Albuterol/ Ipratropium (Albuterol/ Ipratropium) 3 ml Q4H PRN HHN Shortness of Breath 01/11/18 10:51 01/16/18 10:50 Amlodipine Besylate (Norvasc) 5 mg DAILY GT 01/13/18 09:00 02/06/18 00:25 01/14/18 09:58 Apixaban (Eliquis) 2.5 mg BID GT 01/08/18 09:00 02/06/18 08:59 01/14/18 09:58 Aspirin (ASA) 81 mg DAILY NG 01/09/18 09:00 02/08/18 08:59 01/14/18 09:57 Chlorhexidine Gluconate (Jossy-Hex 2%) 1 applic DAILY@1999 TOPIC 01/13/18 20:00 02/12/18 19:59 01/13/18 21:34 Clonidine HCl (Catapres Tab) 0.1 mg Q4H PRN ORAL sbp more than 160 01/07/18 21:00 02/06/18 20:59 Dextrose (Dextrose 50%) 25 ml STAT PRN IV Hypoglycemia 01/07/18 21:00 02/06/18 20:59 Dextrose (Dextrose 50%) 50 ml STAT PRN IV Hypoglycemia 01/07/18 21:00 02/06/18 20:59 Epoetin Wallace (Procrit (for non ESRD use)) 10,000 units MON-SAT-SAT SUBQ 01/08/18 21:00 02/07/18 20:59 01/13/18 21:36 Heparin Sodium/ Sodium Chloride (Heparin 2000 units/Ns 1000ml premix) 2,000 unit ONCE INJ 01/14/18 08:30 01/16/18 08:29 Insulin Aspart (NovoLOG) Please send pen with patient... BEFORE MEALS AND HS SUBQ 01/07/18 21:00 02/06/18 00:26 01/14/18 12:01 Insulin Detemir (Levemir) 20 units BID SUBQ 01/14/18 09:00 02/06/18 08:59 01/14/18 12:00 Lansoprazole (Prevacid) 30 mg Q12HR GT 01/10/18 21:00 02/09/18 20:59 01/14/18 09:58 Levetiracetam (Keppra) 750 mg Q12HR GT 01/07/18 21:00 02/06/18 00:25 01/14/18 09:58 Lidocaine HCl (Xylocaine 1% 30ml) 30 ml ONCE INJ 01/14/18 08:30 01/16/18 08:29 Meropenem 500 mg/ Sodium Chloride 55 ml @ 110 mls/hr Q12H IV 01/10/18 17:00 01/15/18 16:59 01/14/18 04:02 Metoclopramide HCl (Reglan) 10 mg Q6H IVP 01/12/18 12:00 02/09/18 21:59 01/14/18 12:03 Nitroglycerin (Ntg) 1 patch Q24H TDERMAL 01/08/18 14:00 02/06/18 13:59 01/14/18 13:39 Ondansetron HCl (Zofran) 4 mg Q6H PRN IVP Nausea & Vomiting 01/07/18 21:00 02/06/18 20:59 01/12/18 15:32 Polyethylene Glycol (Miralax) 17 gm HSPRN PRN ORAL Constipation 01/07/18 21:00 02/06/18 20:59 Temazepam (Restoril) 15 mg HSPRN PRN ORAL Insomnia 01/07/18 21:00 01/14/18 20:59 Vancomycin HCl (Vanco rx to dose) 1 ea DAILY PRN MISC Per rx protocol 01/08/18 09:00 02/06/18 02:14 Ayala Forman M.D. Jan 14, 2018 15:50
--- NOTE | 2018-01-14 15:50 | GI Progress Note ---
Assessment/Plan Problems: (1) Anemia ICD Codes: D64.9 - Anemia, unspecified SNOMED: 325142340 (2) Malfunction of gastrostomy tube ICD Codes: K94.23 - Gastrostomy malfunction SNOMED: 662678885 (3) Dehydration ICD Codes: E86.0 - Dehydration SNOMED: 05456439 (4) G tube feedings ICD Codes: Z93.1 - G tube feedings SNOMED: 954112393 (5) Diabetes ICD Codes: E11.9 - Type 2 diabetes mellitus without complications SNOMED: 30369436 (6) Dementia ICD Codes: F03.90 - Dementia SNOMED: 07752463 Status: stable Status Narrative Discussed with Dr. Arana. Assessment/Plan GT 20french changed at bedside. GTFs tolerated. reglan IV 10mg ATC DM management electrolyte correction ppi prn transfusions fu labs The patient was seen and examined at bedside and all new and available data was reviewed in the patients chart. I agree with the above findings, impression and plan. (Patient seen earlier today. Signature stamp does not reflect patient encounter time.). - Jamaal Arana MD Subjective Subjective limited Objective Last 24 Hour Vital Signs Date Time Temp Pulse Resp B/P (MAP) Pulse Ox O2 Delivery O2 Flow Rate FiO2 01/14/18 13:39 128/56 01/14/18 12:00 97.7 73 16 132/51 (78) 99 97.7 01/14/18 09:58 73 133/51 01/14/18 09:00 Nasal Cannula 2.0 01/14/18 08:20 Nasal Cannula 2.0 28 01/14/18 08:20 98 Nasal Cannula 2.0 28 01/14/18 08:20 73 18 Nasal Cannula 2.0 28 01/14/18 08:00 97.7 73 16 132/51 (78) 99 97.7 01/14/18 04:00 97.7 65 22 130/59 (82) 100 97.7 01/14/18 00:00 98.1 72 21 110/42 (64) 100 98.1 01/13/18 23:29 99.3 01/13/18 22:59 101.5 01/13/18 21:00 Nasal Cannula 2.0 01/13/18 20:03 97 Nasal Cannula 2.0 28 01/13/18 20:03 68 18 Nasal Cannula 2.0 28 01/13/18 20:03 Nasal Cannula 2.0 28 01/13/18 20:00 99.7 79 24 109/57 (74) 100 99.7 01/13/18 16:00 98.0 85 18 130/71 (90) 98 98.0 Intake and Output 01/13/18 01/14/18 19:00 07:00 Intake Total 460 ml 555 ml Output Total 1950 ml Balance 460 ml -1395 ml Intake Free Water 100 ml 50 ml IV Total 55 ml Tube Feeding 360 ml 450 ml Output Urine Total 1950 ml # Bowel Movements 2 5 Laboratory Tests Test 01/14/18 06:15 White Blood Count 7.0 K/UL (4.8-10.8) Red Blood Count 3.11 M/UL (4.20-5.40) L Hemoglobin 9.5 G/DL (12.0-16.0) L Hematocrit 29.1 % (37.0-47.0) L Mean Corpuscular Volume 94 FL (80-99) Mean Corpuscular Hemoglobin 30.7 PG (27.0-31.0) Mean Corpuscular Hemoglobin Concent 32.8 G/DL (32.0-36.0) Red Cell Distribution Width 15.9 % (11.6-14.8) H Platelet Count 145 K/UL (150-450) L Mean Platelet Volume 11.0 FL (6.5-10.1) H Neutrophils (%) (Auto) 56.0 % (45.0-75.0) Lymphocytes (%) (Auto) 35.1 % (20.0-45.0) Monocytes (%) (Auto) 6.8 % (1.0-10.0) Eosinophils (%) (Auto) 1.7 % (0.0-3.0) Basophils (%) (Auto) 0.4 % (0.0-2.0) Sodium Level 147 MMOL/L (136-145) H Potassium Level 4.1 MMOL/L (3.5-5.1) Chloride Level 114 MMOL/L (98-107) H Carbon Dioxide Level 27 MMOL/L (21-32) Anion Gap 6 mmol/L (5-15) Blood Urea Nitrogen 45 mg/dL (7-18) H Creatinine 1.7 MG/DL (0.55-1.30) H Estimat Glomerular Filtration Rate mL/min (>60) Glucose Level 96 MG/DL (74-106) Calcium Level 8.5 MG/DL (8.5-10.1) Phosphorus Level 4.4 MG/DL (2.5-4.9) Magnesium Level 2.8 MG/DL (1.8-2.4) H Height (Feet): 5 Height (Inches): 5.00 Weight (Pounds): 181 General Appearance: WD/WN, no apparent distress, alert Cardiovascular: normal rate Respiratory/Chest: normal breath sounds, no respiratory distress Abdominal Exam: normal bowel sounds, non tender, soft Extremities: normal range of motion, non-tender Justus Foreman NP Jan 14, 2018 15:50
[2018-01-14 16:00] VITALS: BP 138/63
[2018-01-14] MEDS ORDERED: Amikacin Rx to dose MISC PRN (16:00)
--- NOTE | 2018-01-14 17:13 | General Progress Note ---
Assessment/Plan Problem List: (1) ATN (acute tubular necrosis) ICD Codes: N17.0 - Acute kidney failure with tubular necrosis SNOMED: 46482852 (2) G tube feedings ICD Codes: Z93.1 - G tube feedings SNOMED: 522943970 (3) Dehydration ICD Codes: E86.0 - Dehydration SNOMED: 33545662 (4) Hyperglycemia ICD Codes: R73.9 - Hyperglycemia, unspecified SNOMED: 25937234 (5) Dementia ICD Codes: F03.90 - Dementia SNOMED: 86404673 (6) UTI (urinary tract infection) (7) Anemia ICD Codes: D64.9 - Anemia, unspecified SNOMED: 669836840 (8) Functional quadriplegia ICD Codes: R53.2 - Functional quadriplegia SNOMED: 868317413096702 Status: stable Assessment/Plan Transfused one unit DC groin line- On Amikacin / Vanco Reglan to via GT GT feeding BS and BP check and medication adjustment per consultants repeat CXR Negative discussed with RN DC in am Subjective ROS Limited/Unobtainable: No Constitutional: Reports: malaise Allergies: Coded Allergies: No Known Allergies (Verified , 01/27/10) Objective Last 24 Hour Vital Signs Date Time Temp Pulse Resp B/P (MAP) Pulse Ox O2 Delivery O2 Flow Rate FiO2 01/14/18 16:00 98.2 76 18 138/63 (88) 96 98.2 01/14/18 13:39 128/56 01/14/18 12:00 97.7 73 16 132/51 (78) 99 97.7 01/14/18 09:58 73 133/51 01/14/18 09:00 Nasal Cannula 2.0 01/14/18 08:20 Nasal Cannula 2.0 28 01/14/18 08:20 98 Nasal Cannula 2.0 28 01/14/18 08:20 73 18 Nasal Cannula 2.0 28 01/14/18 08:00 97.7 73 16 132/51 (78) 99 97.7 01/14/18 04:00 97.7 65 22 130/59 (82) 100 97.7 01/14/18 00:00 98.1 72 21 110/42 (64) 100 98.1 01/13/18 23:29 99.3 01/13/18 22:59 101.5 01/13/18 21:00 Nasal Cannula 2.0 01/13/18 20:03 97 Nasal Cannula 2.0 28 01/13/18 20:03 68 18 Nasal Cannula 2.0 28 01/13/18 20:03 Nasal Cannula 2.0 28 01/13/18 20:00 99.7 79 24 109/57 (74) 100 99.7 Intake and Output 01/13/18 01/14/18 19:00 07:00 Intake Total 460 ml 555 ml Output Total 1950 ml Balance 460 ml -1395 ml Intake Free Water 100 ml 50 ml IV Total 55 ml Tube Feeding 360 ml 450 ml Output Urine Total 1950 ml # Bowel Movements 2 5 Laboratory Tests 01/14/18 06:15: White Blood Count 7.0, Red Blood Count 3.11L, Hemoglobin 9.5L, Hematocrit 29.1L , Mean Corpuscular Volume 94, Mean Corpuscular Hemoglobin 30.7, Mean Corpuscular Hemoglobin Concent 32.8, Red Cell Distribution Width 15.9H, Platelet Count 145L, Mean Platelet Volume 11.0H, Neutrophils (%) (Auto) 56.0, Lymphocytes (%) (Auto) 35.1, Monocytes (%) (Auto) 6.8, Eosinophils (%) (Auto) 1.7, Basophils (%) (Auto) 0.4, Sodium Level 147H, Potassium Level 4.1, Chloride Level 114H, Carbon Dioxide Level 27, Anion Gap 6, Blood Urea Nitrogen 45H, Creatinine 1.7H, Estimat Glomerular Filtration Rate , Glucose Level 96, Calcium Level 8.5, Phosphorus Level 4.4, Magnesium Level 2.8H Height (Feet): 5 Height (Inches): 5.00 Weight (Pounds): 181 General Appearance: no apparent distress Cardiovascular: normal rate Respiratory/Chest: decreased breath sounds Abdomen: soft Extremities: other - PICC left arm Objective no other changes Estevan Orozco MD Jan 14, 2018 17:13
[2018-01-14] MEDS ORDERED: Metoclopramide 10mg/2ml Inj IVP PRN (17:15)
[2018-01-14] MEDS: Amikacin 400 MG in NS 110 ML IV SCH (19:40)
[2018-01-14] MEDS: Metoclopramide 10mg/10ml Liq NG SCH ×2 (19:41→23:21)
[2018-01-14 20:00] VITALS: BP 117/60
[2018-01-14] MEDS: Dyna-Hex 2% Top Sol 2oz TOPIC SCH (20:34)
[2018-01-15] VITALS: BP 111/65
[2018-01-15 04:00] VITALS: BP 132/89
[2018-01-15] MEDS: Metoclopramide 10mg/10ml Liq NG SCH ×3 (05:43→17:20)
[2018-01-15] MEDS: NovoLOG Insulin Flexpen SUBQ SCH ×4 (05:46→20:38)
[2018-01-15 07:05] LABS: PHOSPHORUS 4.4 MG/DL (2.5-4.9)
[2018-01-15 07:18] LABS: BASOPHILS % (AUTO) 0.4 % (0.0-2.0); EOSINOPHILS % (AUTO) 1.8 % (0.0-3.0); HEMATOCRIT 28.3 % (37.0-47.0); HEMOGLOBIN 9.5 G/DL (12.0-16.0); LYMPHOCYTES % (AUTO) 37.3 % (20.0-45.0); MEAN CORPUSCULAR VOLUME 92 FL (80-99); MONOCYTES % (AUTO) 6.2 % (1.0-10.0); NEUTROPHILS % (AUTO) 54.2 % (45.0-75.0); PLATELET COUNT 148 K/UL (150-450); RED BLOOD COUNT 3.08 M/UL (4.20-5.40); RED CELL DISTRIBUTION WIDTH 16.5 % (11.6-14.8); WHITE BLOOD COUNT 6.7 K/UL (4.8-10.8)
[2018-01-15 07:34] LABS: ALANINE AMINOTRANSFERASE 15 U/L (12-78); ALBUMIN 2.2 G/DL (3.4-5.0); ALBUMIN/GLOBULIN RATIO 0.4 (1.0-2.7); ALKALINE PHOSPHATASE 85 U/L (46-116); ANION GAP 10 mmol/L (5-15); ASPARTATE AMINO TRANSFERASE 18 U/L (15-37); BILIRUBIN,TOTAL 0.3 MG/DL (0.2-1.0); BLOOD UREA NITROGEN 41 mg/dL (7-18); CALCIUM 8.6 MG/DL (8.5-10.1); CARBON DIOXIDE 26 MMOL/L (21-32); CHLORIDE 114 MMOL/L (98-107); CREATININE 1.5 MG/DL (0.55-1.30); POTASSIUM 4.1 MMOL/L (3.5-5.1); SODIUM 150 MMOL/L (136-145)
[2018-01-15 08:00] VITALS: BP 141/56
[2018-01-15] MEDS: Lidocaine 1% Plain 30 ml INJ SCH (08:30)
[2018-01-15] MEDS: Heparin 2000 units/Ns 1000ml INJ SCH (08:30)
[2018-01-15] MEDS: levETIRAcetam 500mg/5ml Liquid GT SCH ×2 (08:57→20:37)
[2018-01-15] MEDS: Aspirin Baby 81mg NG SCH (08:57)
[2018-01-15] MEDS: Eliquis 2.5mg tablet GT SCH ×2 (08:57→17:20)
[2018-01-15] MEDS: Levemir Flexpen SUBQ SCH ×2 (08:59→17:53)
--- NOTE | 2018-01-15 09:20 | General Progress Note ---
Assessment/Plan Problem List: (1) ATN (acute tubular necrosis) ICD Codes: N17.0 - Acute kidney failure with tubular necrosis SNOMED: 14012741 (2) G tube feedings ICD Codes: Z93.1 - G tube feedings SNOMED: 590671263 (3) Dehydration ICD Codes: E86.0 - Dehydration SNOMED: 64559707 (4) Hyperglycemia ICD Codes: R73.9 - Hyperglycemia, unspecified SNOMED: 87792598 (5) Dementia ICD Codes: F03.90 - Dementia SNOMED: 57558177 (6) UTI (urinary tract infection) (7) Anemia ICD Codes: D64.9 - Anemia, unspecified SNOMED: 789324171 (8) Functional quadriplegia ICD Codes: R53.2 - Functional quadriplegia SNOMED: 430860518447285 Status: stable Assessment/Plan Transfused one unit DC groin line- On Amikacin / Vanco Reglan to via GT GT feeding BS and BP check and medication adjustment per consultants repeat CXR Negative discussed with RN DC ID: (1) Aspiration pneumonia Assessment & Plan: with productive cough and fever, due to pseudomonas aeruginosa and MDR E.coli , resistant to meropenem, so will switch to amikacin to cover both for three weeks and continue vancomycin to cover her bacteremia , monitor CXR to evaluate for new infiltrates (2) Sepsis Assessment & Plan: with staph warneri , already on vancomycin empirically , source possible sacral pressure wound. will repeat blood culture to confirm clearance and treat for two weeks total (3) CKD (chronic kidney disease) Assessment & Plan: now improving , continue IVF , renal is following (4) Diabetes Assessment & Plan: poorly controled , recommend tight glycemic control to keep blood glucose between 100-140 (5) Sacral decubitus ulcer, stage III Assessment & Plan: continue off loading , and local wound care as per hospital protocol (6) Fever Assessment & Plan: due to the above , improving , continue wide spectrum antibiotics Subjective Subjective ROS Limited/Unobtainable: No Constitutional: Reports: malaise Allergies: Coded Allergies: No Known Allergies (Verified , 01/27/10) Objective Last 24 Hour Vital Signs Date Time Temp Pulse Resp B/P (MAP) Pulse Ox O2 Delivery O2 Flow Rate FiO2 01/15/18 08:57 70 141/56 01/15/18 08:00 97.9 70 18 141/56 (84) 99 97.9 01/15/18 04:00 97.3 78 22 132/89 (103) 98 97.3 01/15/18 00:00 97.2 78 17 111/65 (80) 100 97.2 01/14/18 21:00 Nasal Cannula 2.0 01/14/18 20:55 Nasal Cannula 2.0 28 01/14/18 20:55 98 Nasal Cannula 2.0 28 01/14/18 20:55 75 18 Nasal Cannula 2.0 28 01/14/18 20:00 97.7 66 20 117/60 (79) 96 97.7 01/14/18 16:00 98.2 76 18 138/63 (88) 96 98.2 01/14/18 13:39 128/56 01/14/18 12:00 97.7 73 16 132/51 (78) 99 97.7 01/14/18 09:58 73 133/51 Intake and Output 01/14/18 01/15/18 19:00 07:00 Intake Total 740 ml 595 ml Output Total 1000 ml 550 ml Balance -260 ml 45 ml Intake Free Water 200 ml 100 ml Tube Feeding 540 ml 495 ml Output Urine Total 1000 ml 550 ml # Bowel Movements 2 1 Current Medications Medications (Trade) Dose Ordered Sig/Nancy Route PRN Reason Start Time Stop Time Status Last Admin Dose Admin Acetaminophen (Tylenol) 650 mg Q4H PRN ORAL T>100.5 01/07/18 21:00 02/06/18 20:59 01/13/18 22:59 Albuterol/ Ipratropium (Albuterol/ Ipratropium) 3 ml Q4H PRN HHN Shortness of Breath 01/11/18 10:51 01/16/18 10:50 Amikacin Protocol (Amikacin pharmacy to dose) 1 ea DAILY PRN MISC Per rx protocol 01/14/18 16:00 02/13/18 15:59 Amikacin Sulfate 400 mg/Sodium Chloride 111.6 ml @ 223.2 mls/ hr Q24H IV 01/14/18 18:00 01/21/18 17:59 01/14/18 19:40 Amlodipine Besylate (Norvasc) 5 mg DAILY GT 01/13/18 09:00 02/06/18 00:25 01/15/18 08:57 Apixaban (Eliquis) 2.5 mg BID GT 01/08/18 09:00 02/06/18 08:59 01/15/18 08:57 Aspirin (ASA) 81 mg DAILY NG 01/09/18 09:00 02/08/18 08:59 01/15/18 08:57 Chlorhexidine Gluconate (Jossy-Hex 2%) 1 applic DAILY@2000 TOPIC 01/13/18 20:00 02/12/18 19:59 01/14/18 20:34 Clonidine HCl (Catapres Tab) 0.1 mg Q4H PRN ORAL sbp more than 160 01/07/18 21:00 02/06/18 20:59 Dextrose (Dextrose 50%) 25 ml STAT PRN IV Hypoglycemia 01/07/18 21:00 02/06/18 20:59 Dextrose (Dextrose 50%) 50 ml STAT PRN IV Hypoglycemia 01/07/18 21:00 02/06/18 20:59 Epoetin Wallace (Procrit (for non ESRD use)) 10,000 units MON-WED-SAT SUBQ 01/08/18 21:00 02/07/18 20:59 01/13/18 21:36 Heparin Sodium/ Sodium Chloride (Heparin 2000 units/Ns 1000ml premix) 2,000 unit ONCE INJ 01/14/18 08:30 01/16/18 08:29 Insulin Aspart (NovoLOG) Please send pen with patient... BEFORE MEALS AND HS SUBQ 01/07/18 21:00 02/06/18 00:26 01/15/18 05:46 Insulin Detemir (Levemir) 20 units BID SUBQ 01/14/18 09:00 02/06/18 08:59 01/15/18 08:59 Lansoprazole (Prevacid) 30 mg Q12HR GT 01/10/18 21:00 02/09/18 20:59 01/15/18 08:57 Levetiracetam (Keppra) 750 mg Q12HR GT 01/07/18 21:00 02/06/18 00:25 01/15/18 08:57 Lidocaine HCl (Xylocaine 1% 30ml) 30 ml ONCE INJ 01/14/18 08:30 9/13/18 08:29 Metoclopramide HCl (Reglan) 10 mg EVERY 6 HOURS NG 01/14/18 18:00 02/13/18 17:59 01/15/18 05:43 Metoclopramide HCl (Reglan) 10 mg Q6H PRN IVP vomiting 01/14/18 17:15 02/09/18 21:59 Nitroglycerin (Ntg) 1 patch Q24H TDERMAL 01/08/18 14:00 02/06/18 13:59 01/14/18 13:39 Polyethylene Glycol (Miralax) 17 gm HSPRN PRN ORAL Constipation 01/07/18 21:00 02/06/18 20:59 Vancomycin HCl (Vanco rx to dose) 1 ea DAILY PRN MISC Per rx protocol 01/08/18 09:00 02/06/18 02:14 Vancomycin HCl 500 mg/Dextrose 110 ml @ 110 mls/hr Q24H IVPB 01/15/18 10:00 01/20/18 09:59 Laboratory Tests 01/15/18 05:00: White Blood Count 6.7, Red Blood Count 3.08L, Hemoglobin 9.5L, Hematocrit 28.3L , Mean Corpuscular Volume 92, Mean Corpuscular Hemoglobin 31.0, Mean Corpuscular Hemoglobin Concent 33.6, Red Cell Distribution Width 16.5H, Platelet Count 148L, Mean Platelet Volume 9.2, Neutrophils (%) (Auto) 54.2, Lymphocytes (%) (Auto) 37.3, Monocytes (%) (Auto) 6.2, Eosinophils (%) (Auto) 1.8, Basophils (%) (Auto) 0.4, Erythrocyte Sedimentation Rate 120H, Sodium Level 150H, Potassium Level 4.1, Chloride Level 114H, Carbon Dioxide Level 26, Anion Gap 10, Blood Urea Nitrogen 41H, Creatinine 1.5H, Estimat Glomerular Filtration Rate , Glucose Level 120H, Calcium Level 8.6, Phosphorus Level 4.4, Magnesium Level 2.6H, Total Bilirubin 0.3, Aspartate Amino Transf (AST/SGOT) 18 , Alanine Aminotransferase (ALT/SGPT) 15, Alkaline Phosphatase 85, C-Reactive Protein, Quantitative 8.8H, Total Protein 7.7, Albumin 2.2L, Globulin 5.5, Albumin/Globulin Ratio 0.4L, Random Vancomycin Level 11.3 Height (Feet): 5 Height (Inches): 5.00 Weight (Pounds): 182 General Appearance: no apparent distress Cardiovascular: regular rhythm Respiratory/Chest: decreased breath sounds Abdomen: soft, distended, other - PEG Objective no other changes Estevan Orozco MD Jan 15, 2018 09:20
[2018-01-15] MEDS: Vancomycin 500mg/D5W 110ml IVPB SCH ×2 (10:23)
--- NOTE | 2018-01-15 11:54 | GI Progress Note ---
Assessment/Plan Problems: (1) Anemia ICD Codes: D64.9 - Anemia, unspecified SNOMED: 655658260 (2) Malfunction of gastrostomy tube ICD Codes: K94.23 - Gastrostomy malfunction SNOMED: 632069046 (3) Dehydration ICD Codes: E86.0 - Dehydration SNOMED: 21982606 (4) G tube feedings ICD Codes: Z93.1 - G tube feedings SNOMED: 350731632 (5) Diabetes ICD Codes: E11.9 - Type 2 diabetes mellitus without complications SNOMED: 65114533 (6) Dementia ICD Codes: F03.90 - Dementia SNOMED: 79468907 Status: stable Status Narrative Discussed with Dr. Arana. Assessment/Plan GT 20french changed at bedside. GTFs tolerated at goal rate. change reglan dosage to 5mg IV ATC DM management electrolyte correction ppi prn transfusions fu labs The patient was seen and examined at bedside and all new and available data was reviewed in the patients chart. I agree with the above findings, impression and plan. (Patient seen earlier today. Signature stamp does not reflect patient encounter time.). - Jamaal Arana MD Subjective Subjective limited Objective Last 24 Hour Vital Signs Date Time Temp Pulse Resp B/P (MAP) Pulse Ox O2 Delivery O2 Flow Rate FiO2 01/15/18 09:38 Nasal Cannula 2.0 28 01/15/18 09:38 97 Nasal Cannula 2.0 28 01/15/18 09:38 78 18 Nasal Cannula 2.0 28 01/15/18 09:00 Nasal Cannula 2.0 01/15/18 08:57 70 141/56 01/15/18 08:00 97.9 70 18 141/56 (84) 99 97.9 01/15/18 04:00 97.3 78 22 132/89 (103) 98 97.3 01/15/18 00:00 97.2 78 17 111/65 (80) 100 97.2 01/14/18 21:00 Nasal Cannula 2.0 01/14/18 20:55 Nasal Cannula 2.0 28 01/14/18 20:55 98 Nasal Cannula 2.0 28 01/14/18 20:55 75 18 Nasal Cannula 2.0 28 01/14/18 20:00 97.7 66 20 117/60 (79) 96 97.7 01/14/18 16:00 98.2 76 18 138/63 (88) 96 98.2 01/14/18 13:39 128/56 01/14/18 12:00 97.7 73 16 132/51 (78) 99 97.7 Intake and Output 01/14/18 01/15/18 19:00 07:00 Intake Total 740 ml 595 ml Output Total 1000 ml 550 ml Balance -260 ml 45 ml Intake Free Water 200 ml 100 ml Tube Feeding 540 ml 495 ml Output Urine Total 1000 ml 550 ml # Bowel Movements 2 1 Laboratory Tests Test 01/15/18 05:00 White Blood Count 6.7 K/UL (4.8-10.8) Red Blood Count 3.08 M/UL (4.20-5.40) L Hemoglobin 9.5 G/DL (12.0-16.0) L Hematocrit 28.3 % (37.0-47.0) L Mean Corpuscular Volume 92 FL (80-99) Mean Corpuscular Hemoglobin 31.0 PG (27.0-31.0) Mean Corpuscular Hemoglobin Concent 33.6 G/DL (32.0-36.0) Red Cell Distribution Width 16.5 % (11.6-14.8) H Platelet Count 148 K/UL (150-450) L Mean Platelet Volume 9.2 FL (6.5-10.1) Neutrophils (%) (Auto) 54.2 % (45.0-75.0) Lymphocytes (%) (Auto) 37.3 % (20.0-45.0) Monocytes (%) (Auto) 6.2 % (1.0-10.0) Eosinophils (%) (Auto) 1.8 % (0.0-3.0) Basophils (%) (Auto) 0.4 % (0.0-2.0) Erythrocyte Sedimentation Rate 120 MM/HR (0-30) H Sodium Level 150 MMOL/L (136-145) H Potassium Level 4.1 MMOL/L (3.5-5.1) Chloride Level 114 MMOL/L (98-107) H Carbon Dioxide Level 26 MMOL/L (21-32) Anion Gap 10 mmol/L (5-15) Blood Urea Nitrogen 41 mg/dL (7-18) H Creatinine 1.5 MG/DL (0.55-1.30) H Estimat Glomerular Filtration Rate mL/min (>60) Glucose Level 120 MG/DL (74-106) H Calcium Level 8.6 MG/DL (8.5-10.1) Phosphorus Level 4.4 MG/DL (2.5-4.9) Magnesium Level 2.6 MG/DL (1.8-2.4) H Total Bilirubin 0.3 MG/DL (0.2-1.0) Aspartate Amino Transf (AST/SGOT) 18 U/L (15-37) Alanine Aminotransferase (ALT/SGPT) 15 U/L (12-78) Alkaline Phosphatase 85 U/L (46-116) C-Reactive Protein, Quantitative 8.8 mg/dL (0.00-0.90) H Total Protein 7.7 G/DL (6.4-8.2) Albumin 2.2 G/DL (3.4-5.0) L Globulin 5.5 g/dL Albumin/Globulin Ratio 0.4 (1.0-2.7) L Random Vancomycin Level 11.3 ug/mL Height (Feet): 5 Height (Inches): 5.00 Weight (Pounds): 182 General Appearance: lethargic Cardiovascular: normal rate Respiratory/Chest: no respiratory distress Abdominal Exam: GT site - c/d/i Justus Foreman NP Jan 15, 2018 11:54
[2018-01-15 12:00] VITALS: BP 131/64
[2018-01-15] MEDS ORDERED: NORVASC5 MG GT (13:04)
[2018-01-15] MEDS ORDERED: Amikacin Rx to dose MISC (13:04)
[2018-01-15] MEDS ORDERED: NTG1 PATCH TDERMAL (13:04)
[2018-01-15] MEDS ORDERED: Vanco pharmacy to dose MISC (13:04)
[2018-01-15] MEDS ORDERED: ASPIRIN81 MG NG (13:04)
[2018-01-15] MEDS ORDERED: LEVEMIR FL100 UNIT/1 SUBQ (13:04)
--- NOTE | 2018-01-15 13:07 | Discharge Instructions ---
Discharge Instructions Discharge Instructions Follow up with: fu with me at [facility] Diet: other - tube feeding Glucerna Special Instructions [facility]- [facility] to adjust Amikacin dose once daily (21 days) and Vancomycin dose once daily ( 14 days) Aspiration percautions CBC- CMP Q saturday for 6 weeks- Fax results sliding scale insulin as ordered For Congestive Heart Failure Reminder Report to your physician any weight gain of 5 pounds or more in one week. Estevan Orozco MD Jan 15, 2018 13:07
--- NOTE | 2018-01-15 13:12 | Pulmonology Progress Note ---
Assessment/Plan Problems: (1) Sepsis (2) ATN (acute tubular necrosis) (3) Hyperglycemia (4) G tube feedings (5) Decubital ulcer (6) Functional quadriplegia (7) Seizure disorder (8) Sacral decubitus ulcer, stage III Assessment/Plan all reviewed looks comfortable continue abx iv fluids check electrolytes, BUN/creatinine decreasing sliding scale diabetic diet f/u ID and endo recommendations dc planning Subjective ROS Limited/Unobtainable: No Constitutional: Reports: no symptoms HEENT: Repors: no symptoms Respiratory: Reports: no symptoms Allergies: Coded Allergies: No Known Allergies (Verified , 01/27/10) Objective Last 24 Hour Vital Signs Date Time Temp Pulse Resp B/P (MAP) Pulse Ox O2 Delivery O2 Flow Rate FiO2 01/15/18 12:00 98.0 72 18 131/64 (86) 94 98.0 01/15/18 09:38 Nasal Cannula 2.0 28 01/15/18 09:38 97 Nasal Cannula 2.0 28 01/15/18 09:38 78 18 Nasal Cannula 2.0 28 01/15/18 09:00 Nasal Cannula 2.0 01/15/18 08:57 70 141/56 01/15/18 08:00 97.9 70 18 141/56 (84) 99 97.9 01/15/18 04:00 97.3 78 22 132/89 (103) 98 97.3 01/15/18 00:00 97.2 78 17 111/65 (80) 100 97.2 01/14/18 21:00 Nasal Cannula 2.0 01/14/18 20:55 Nasal Cannula 2.0 28 01/14/18 20:55 98 Nasal Cannula 2.0 28 01/14/18 20:55 75 18 Nasal Cannula 2.0 28 01/14/18 20:00 97.7 66 20 117/60 (79) 96 97.7 01/14/18 16:00 98.2 76 18 138/63 (88) 96 98.2 01/14/18 13:39 128/56 Intake and Output 01/14/18 01/15/18 19:00 07:00 Intake Total 740 ml 595 ml Output Total 1000 ml 550 ml Balance -260 ml 45 ml Intake Free Water 200 ml 100 ml Tube Feeding 540 ml 495 ml Output Urine Total 1000 ml 550 ml # Bowel Movements 2 1 General Appearance: WD/WN HEENT: normocephalic Respiratory/Chest: chest wall non-tender, lungs clear Cardiovascular: normal peripheral pulses, normal rate Abdomen: normal bowel sounds, soft, non tender, no scars Extremities: no cyanosis Neurologic/Psychiatric: membership secretary II-XII grossly normal Lymphatic: no neck adenopathy Laboratory Tests 01/15/18 05:00: White Blood Count 6.7, Red Blood Count 3.08L, Hemoglobin 9.5L, Hematocrit 28.3L , Mean Corpuscular Volume 92, Mean Corpuscular Hemoglobin 31.0, Mean Corpuscular Hemoglobin Concent 33.6, Red Cell Distribution Width 16.5H, Platelet Count 148L, Mean Platelet Volume 9.2, Neutrophils (%) (Auto) 54.2, Lymphocytes (%) (Auto) 37.3, Monocytes (%) (Auto) 6.2, Eosinophils (%) (Auto) 1.8, Basophils (%) (Auto) 0.4, Erythrocyte Sedimentation Rate 120H, Sodium Level 150H, Potassium Level 4.1, Chloride Level 114H, Carbon Dioxide Level 26, Anion Gap 10, Blood Urea Nitrogen 41H, Creatinine 1.5H, Estimat Glomerular Filtration Rate , Glucose Level 120H, Calcium Level 8.6, Phosphorus Level 4.4, Magnesium Level 2.6H, Total Bilirubin 0.3, Aspartate Amino Transf (AST/SGOT) 18 , Alanine Aminotransferase (ALT/SGPT) 15, Alkaline Phosphatase 85, C-Reactive Protein, Quantitative 8.8H, Total Protein 7.7, Albumin 2.2L, Globulin 5.5, Albumin/Globulin Ratio 0.4L, Random Vancomycin Level 11.3 Current Medications Medications (Trade) Dose Ordered Sig/Nancy Route PRN Reason Start Time Stop Time Status Last Admin Dose Admin Acetaminophen (Tylenol) 650 mg Q4H PRN ORAL T>100.5 01/07/18 21:00 02/06/18 20:59 01/13/18 22:59 Albuterol/ Ipratropium (Albuterol/ Ipratropium) 3 ml Q4H PRN HHN Shortness of Breath 01/11/18 10:51 01/16/18 10:50 Amikacin Protocol (Amikacin pharmacy to dose) 1 ea DAILY PRN MISC Per rx protocol 01/14/18 16:00 02/13/18 15:59 Amikacin Sulfate 400 mg/Sodium Chloride 111.6 ml @ 223.2 mls/ hr Q24H IV 01/14/18 18:00 01/21/18 17:59 01/14/18 19:40 Amlodipine Besylate (Norvasc) 5 mg DAILY GT 01/13/18 09:00 02/06/18 00:25 01/15/18 08:57 Apixaban (Eliquis) 2.5 mg BID GT 01/08/18 09:00 02/06/18 08:59 01/15/18 08:57 Aspirin (ASA) 81 mg DAILY NG 01/09/18 09:00 02/08/18 08:59 01/15/18 08:57 Chlorhexidine Gluconate (Jossy-Hex 2%) 1 applic DAILY@2000 TOPIC 01/13/18 20:00 02/12/18 19:59 01/14/18 20:34 Clonidine HCl (Catapres Tab) 0.1 mg Q4H PRN ORAL sbp more than 160 01/07/18 21:00 02/06/18 20:59 Dextrose (Dextrose 50%) 25 ml STAT PRN IV Hypoglycemia 01/07/18 21:00 02/06/18 20:59 Dextrose (Dextrose 50%) 50 ml STAT PRN IV Hypoglycemia 01/07/18 21:00 02/06/18 20:59 Epoetin Wallace (Procrit (for non ESRD use)) 10,000 units MON-WED-FRI SUBQ 01/08/18 21:00 02/07/18 20:59 01/13/18 21:36 Heparin Sodium/ Sodium Chloride (Heparin 2000 units/Ns 1000ml premix) 2,000 unit ONCE INJ 01/14/18 08:30 01/16/18 08:29 Insulin Aspart (NovoLOG) Please send pen with patient... BEFORE MEALS AND HS SUBQ 01/07/18 21:00 02/06/18 00:26 01/15/18 11:23 Insulin Detemir (Levemir) 20 units BID SUBQ 01/14/18 09:00 02/06/18 08:59 01/15/18 08:59 Lansoprazole (Prevacid) 30 mg Q12HR GT 01/10/18 21:00 02/09/18 20:59 01/15/18 08:57 Levetiracetam (Keppra) 750 mg Q12HR GT 01/07/18 21:00 02/06/18 00:25 01/15/18 08:57 Lidocaine HCl (Xylocaine 1% 30ml) 30 ml ONCE INJ 01/14/18 08:30 01/16/18 08:29 Metoclopramide HCl (Reglan) 5 mg EVERY 6 HOURS NG 01/15/18 18:00 02/13/18 17:59 Metoclopramide HCl (Reglan) 10 mg Q6H PRN IVP vomiting 01/14/18 17:15 02/09/18 21:59 Nitroglycerin (Ntg) 1 patch Q24H TDERMAL 01/08/18 14:00 02/06/18 13:59 01/14/18 13:39 Polyethylene Glycol (Miralax) 17 gm HSPRN PRN ORAL Constipation 01/07/18 21:00 02/06/18 20:59 Vancomycin HCl (Vanco rx to dose) 1 ea DAILY PRN MISC Per rx protocol 01/08/18 09:00 02/06/18 02:14 Vancomycin HCl 500 mg/Dextrose 110 ml @ 110 mls/hr Q24H IVPB 01/15/18 10:00 01/20/18 09:59 01/15/18 10:23 Saira Lazcano MD Jan 15, 2018 13:12
--- NOTE | 2018-01-15 14:38 | General Surgery Progress Note ---
General Surgery-Progress Note Subjective Symptoms: improved, pain absent, tolerating diet, passing flatus, BM Objective Last 24 Hour Vital Signs Date Time Temp Pulse Resp B/P (MAP) Pulse Ox O2 Delivery O2 Flow Rate FiO2 01/15/18 12:00 98.0 72 18 131/64 (86) 94 98.0 01/15/18 09:38 Nasal Cannula 2.0 28 01/15/18 09:38 97 Nasal Cannula 2.0 28 01/15/18 09:38 78 18 Nasal Cannula 2.0 28 01/15/18 09:00 Nasal Cannula 2.0 01/15/18 08:57 70 141/56 01/15/18 08:00 97.9 70 18 141/56 (84) 99 97.9 01/15/18 04:00 97.3 78 22 132/89 (103) 98 97.3 01/15/18 00:00 97.2 78 17 111/65 (80) 100 97.2 01/14/18 21:00 Nasal Cannula 2.0 01/14/18 20:55 Nasal Cannula 2.0 28 01/14/18 20:55 98 Nasal Cannula 2.0 28 01/14/18 20:55 75 18 Nasal Cannula 2.0 28 01/14/18 20:00 97.7 66 20 117/60 (79) 96 97.7 01/14/18 16:00 98.2 76 18 138/63 (88) 96 98.2 I&O Intake and Output 01/14/18 01/15/18 19:00 07:00 Intake Total 740 ml 595 ml Output Total 1000 ml 550 ml Balance -260 ml 45 ml Intake Free Water 200 ml 100 ml Tube Feeding 540 ml 495 ml Output Urine Total 1000 ml 550 ml # Bowel Movements 2 1 Wound: clean, dry, intact Drains: other Cardiovascular: RSR Respiratory: clear Abdomen: soft, distended, non-tender, present bowel sounds Extremities: other Laboratory Tests Test 01/15/18 05:00 White Blood Count 6.7 K/UL (4.8-10.8) Red Blood Count 3.08 M/UL (4.20-5.40) L Hemoglobin 9.5 G/DL (12.0-16.0) L Hematocrit 28.3 % (37.0-47.0) L Mean Corpuscular Volume 92 FL (80-99) Mean Corpuscular Hemoglobin 31.0 PG (27.0-31.0) Mean Corpuscular Hemoglobin Concent 33.6 G/DL (32.0-36.0) Red Cell Distribution Width 16.5 % (11.6-14.8) H Platelet Count 148 K/UL (150-450) L Mean Platelet Volume 9.2 FL (6.5-10.1) Neutrophils (%) (Auto) 54.2 % (45.0-75.0) Lymphocytes (%) (Auto) 37.3 % (20.0-45.0) Monocytes (%) (Auto) 6.2 % (1.0-10.0) Eosinophils (%) (Auto) 1.8 % (0.0-3.0) Basophils (%) (Auto) 0.4 % (0.0-2.0) Erythrocyte Sedimentation Rate 120 MM/HR (0-30) H Sodium Level 150 MMOL/L (136-145) H Potassium Level 4.1 MMOL/L (3.5-5.1) Chloride Level 114 MMOL/L (98-107) H Carbon Dioxide Level 26 MMOL/L (21-32) Anion Gap 10 mmol/L (5-15) Blood Urea Nitrogen 41 mg/dL (7-18) H Creatinine 1.5 MG/DL (0.55-1.30) H Estimat Glomerular Filtration Rate mL/min (>60) Glucose Level 120 MG/DL (74-106) H Calcium Level 8.6 MG/DL (8.5-10.1) Phosphorus Level 4.4 MG/DL (2.5-4.9) Magnesium Level 2.6 MG/DL (1.8-2.4) H Total Bilirubin 0.3 MG/DL (0.2-1.0) Aspartate Amino Transf (AST/SGOT) 18 U/L (15-37) Alanine Aminotransferase (ALT/SGPT) 15 U/L (12-78) Alkaline Phosphatase 85 U/L (46-116) C-Reactive Protein, Quantitative 8.8 mg/dL (0.00-0.90) H Total Protein 7.7 G/DL (6.4-8.2) Albumin 2.2 G/DL (3.4-5.0) L Globulin 5.5 g/dL Albumin/Globulin Ratio 0.4 (1.0-2.7) L Random Vancomycin Level 11.3 ug/mL Plan Problems: (1) Sepsis Assessment & Plan: on IV Abx as per ID central line placed for meds over the weekend will discuss with ID about g tube abx vs IV may need PICC line if IV Abx required (2) Sacral decubitus ulcer, stage III Assessment & Plan: Stage III sacral full thickness pressure injury to sacrum (L )8cm x (W)6.2cm .full thickness injury at coccygeal area with approx 10% slough centrally with pink epithelialized borders.No odor or exudate noted. Full thickness ulcer noted to lateral R tibia(L)2cm x (W)1.4cm .Wound bed with approx 20% mixed slough /necrosis otherwise red with macerated borders .Scant non-odorous serous exudate noted to drsg upon removal. Periwound skin is dry. No edema noted. R heel soft but blanchable. Tx Plan: Cleanse Sacral wound with Saline ;Apply Triad Paste to sacral wound.Cavilon wipe Periwound and cover with Biatain drsg every other day and prn. Cleanse wound lateral RLE with saline.Apply Silvasorb Gel. Cavilon wipe to borders and cover with Biatain drsg every other day and prn. Recommend Surface support overlay on bed. Reposition at minimum every 2hours as tolerated. Off-load R heel with pillow Patient presented with above wound. Was seen as stage II prior and currently with stage III in small portion of wound. labs reviewed micro reviewed no acute surgical intervention necessary unfortunately given her medical state/condition wounds may deteriorate. will continue with maximal care as detailed above Taco Carter Jan 15, 2018 14:38
--- NOTE | 2018-01-15 15:28 | Infectious Diseases Prog Note ---
Assessment/Plan Problems: (1) Aspiration pneumonia Assessment & Plan: with productive cough and fever, due to pseudomonas aeruginosa and MDR E.coli , resistant to meropenem, Will continue amikacin to cover both bacteria for three weeks and continue vancomycin to cover her bacteremia for two weeks , monitor CXR to evaluate for new infiltrates. please monitor amikacin trough to keep less than 5 every 3-5 days . please obtain peak and trough tomorrow after her third dose pharmacy to monitor trough level as an outpatient to keep less than 5 . monitor weekly labs while on antibiotics D/W primary and nurse (2) Sepsis Assessment & Plan: with staph warneri , already on vancomycin empirically , source possible sacral pressure wound. will repeat blood culture to confirm clearance and treat for two weeks total from the clearance date (3) CKD (chronic kidney disease) Assessment & Plan: now improving , continue IVF , renal is following (4) Diabetes Assessment & Plan: poorly controled , recommend tight glycemic control to keep blood glucose between 100-140 (5) Sacral decubitus ulcer, stage III Assessment & Plan: continue off loading , and local wound care as per hospital protocol (6) Fever Assessment & Plan: due to the above , improving , continue wide spectrum antibiotics Subjective ROS Limited/Unobtainable: Yes Allergies: Coded Allergies: No Known Allergies (Verified , 01/27/10) Subjective she has no cough and no significant oral secretions , lying in bed comfortable, unresponsive, no fever today , NAD Objective Vital Signs Last 24 Hour Vital Signs Date Time Temp Pulse Resp B/P (MAP) Pulse Ox O2 Delivery O2 Flow Rate FiO2 01/15/18 12:00 98.0 72 18 131/64 (86) 94 98.0 01/15/18 09:38 Nasal Cannula 2.0 28 01/15/18 09:38 97 Nasal Cannula 2.0 28 01/15/18 09:38 78 18 Nasal Cannula 2.0 28 01/15/18 09:00 Nasal Cannula 2.0 01/15/18 08:57 70 141/56 01/15/18 08:00 97.9 70 18 141/56 (84) 99 97.9 01/15/18 04:00 97.3 78 22 132/89 (103) 98 97.3 01/15/18 00:00 97.2 78 17 111/65 (80) 100 97.2 01/14/18 21:00 Nasal Cannula 2.0 01/14/18 20:55 Nasal Cannula 2.0 28 01/14/18 20:55 98 Nasal Cannula 2.0 28 01/14/18 20:55 75 18 Nasal Cannula 2.0 28 01/14/18 20:00 97.7 66 20 117/60 (79) 96 97.7 01/14/18 16:00 98.2 76 18 138/63 (88) 96 98.2 Height (Feet): 5 Height (Inches): 5.00 Weight (Pounds): 182 General Appearance: WD/WN, no acute distress HEENT: normocephalic, atraumatic, supple, no JVD Respiratory/Chest: normal breath sounds, no respiratory distress, no accessory muscle use, decreased breath sounds, crackles/rales Cardiovascular: normal peripheral pulses, normal rate, regular rhythm, no gallop/murmur, no JVD Abdomen: normal bowel sounds, soft, non tender, no organomegaly, non distended , no mass, no scars Extremities: no cyanosis, no clubbing Skin: no rash, no lesions Neurologic/Psychiatric: alert, oriented x 3, responsive Lymphatic: no neck adenopathy, no groin adenopathy Musculoskeletal: normal muscle bulk, no effusion Laboratory Tests Test 01/15/18 05:00 White Blood Count 6.7 K/UL (4.8-10.8) Red Blood Count 3.08 M/UL (4.20-5.40) L Hemoglobin 9.5 G/DL (12.0-16.0) L Hematocrit 28.3 % (37.0-47.0) L Mean Corpuscular Volume 92 FL (80-99) Mean Corpuscular Hemoglobin 31.0 PG (27.0-31.0) Mean Corpuscular Hemoglobin Concent 33.6 G/DL (32.0-36.0) Red Cell Distribution Width 16.5 % (11.6-14.8) H Platelet Count 148 K/UL (150-450) L Mean Platelet Volume 9.2 FL (6.5-10.1) Neutrophils (%) (Auto) 54.2 % (45.0-75.0) Lymphocytes (%) (Auto) 37.3 % (20.0-45.0) Monocytes (%) (Auto) 6.2 % (1.0-10.0) Eosinophils (%) (Auto) 1.8 % (0.0-3.0) Basophils (%) (Auto) 0.4 % (0.0-2.0) Erythrocyte Sedimentation Rate 120 MM/HR (0-30) H Sodium Level 150 MMOL/L (136-145) H Potassium Level 4.1 MMOL/L (3.5-5.1) Chloride Level 114 MMOL/L (98-107) H Carbon Dioxide Level 26 MMOL/L (21-32) Anion Gap 10 mmol/L (5-15) Blood Urea Nitrogen 41 mg/dL (7-18) H Creatinine 1.5 MG/DL (0.55-1.30) H Estimat Glomerular Filtration Rate mL/min (>60) Glucose Level 120 MG/DL (74-106) H Calcium Level 8.6 MG/DL (8.5-10.1) Phosphorus Level 4.4 MG/DL (2.5-4.9) Magnesium Level 2.6 MG/DL (1.8-2.4) H Total Bilirubin 0.3 MG/DL (0.2-1.0) Aspartate Amino Transf (AST/SGOT) 18 U/L (15-37) Alanine Aminotransferase (ALT/SGPT) 15 U/L (12-78) Alkaline Phosphatase 85 U/L (46-116) C-Reactive Protein, Quantitative 8.8 mg/dL (0.00-0.90) H Total Protein 7.7 G/DL (6.4-8.2) Albumin 2.2 G/DL (3.4-5.0) L Globulin 5.5 g/dL Albumin/Globulin Ratio 0.4 (1.0-2.7) L Random Vancomycin Level 11.3 ug/mL Current Medications Medications (Trade) Dose Ordered Sig/Nancy Route PRN Reason Start Time Stop Time Status Last Admin Dose Admin Acetaminophen (Tylenol) 650 mg Q4H PRN ORAL T>100.5 01/07/18 21:00 02/06/18 20:59 01/13/18 22:59 Albuterol/ Ipratropium (Albuterol/ Ipratropium) 3 ml Q4H PRN HHN Shortness of Breath 01/11/18 10:51 01/16/18 10:50 Amikacin Protocol (Amikacin pharmacy to dose) 1 ea DAILY PRN MISC Per rx protocol 01/14/18 16:00 02/13/18 15:59 Amikacin Sulfate 400 mg/Sodium Chloride 111.6 ml @ 223.2 mls/ hr Q24H IV 01/14/18 18:00 01/21/18 17:59 01/14/18 19:40 Amlodipine Besylate (Norvasc) 5 mg DAILY GT 01/13/18 09:00 02/06/18 00:25 01/15/18 08:57 Apixaban (Eliquis) 2.5 mg BID GT 01/08/18 09:00 02/06/18 08:59 01/15/18 08:57 Aspirin (ASA) 81 mg DAILY NG 01/09/18 09:00 02/08/18 08:59 01/15/18 08:57 Chlorhexidine Gluconate (Jossy-Hex 2%) 1 applic DAILY@2000 TOPIC 01/13/18 20:00 02/12/18 19:59 01/14/18 20:34 Clonidine HCl (Catapres Tab) 0.1 mg Q4H PRN ORAL sbp more than 160 01/07/18 21:00 02/06/18 20:59 Dextrose (Dextrose 50%) 25 ml STAT PRN IV Hypoglycemia 01/07/18 21:00 02/06/18 20:59 Dextrose (Dextrose 50%) 50 ml STAT PRN IV Hypoglycemia 01/07/18 21:00 02/06/18 20:59 Epoetin Wallace (Procrit (for non ESRD use)) 10,000 units MON-WED-FRI SUBQ 01/08/18 21:00 02/07/18 20:59 01/13/18 21:36 Heparin Sodium/ Sodium Chloride (Heparin 2000 units/Ns 1000ml premix) 2,000 unit ONCE INJ 01/14/18 08:30 01/16/18 08:29 Insulin Aspart (NovoLOG) Please send pen with patient... BEFORE MEALS AND HS SUBQ 01/07/18 21:00 02/06/18 00:26 01/15/18 11:23 Insulin Detemir (Levemir) 20 units BID SUBQ 01/14/18 09:00 02/06/18 08:59 01/15/18 08:59 Lansoprazole (Prevacid) 30 mg Q12HR GT 01/10/18 21:00 02/09/18 20:59 01/15/18 08:57 Levetiracetam (Keppra) 750 mg Q12HR GT 01/07/18 21:00 02/06/18 00:25 01/15/18 08:57 Lidocaine HCl (Xylocaine 1% 30ml) 30 ml ONCE INJ 01/14/18 08:30 01/16/18 08:29 Metoclopramide HCl (Reglan) 5 mg EVERY 6 HOURS NG 01/15/18 18:00 02/13/18 17:59 Metoclopramide HCl (Reglan) 10 mg Q6H PRN IVP vomiting 01/14/18 17:15 02/09/18 21:59 Nitroglycerin (Ntg) 1 patch Q24H TDERMAL 01/08/18 14:00 02/06/18 13:59 01/14/18 13:39 Polyethylene Glycol (Miralax) 17 gm HSPRN PRN ORAL Constipation 01/07/18 21:00 02/06/18 20:59 Vancomycin HCl (Vanco rx to dose) 1 ea DAILY PRN MISC Per rx protocol 01/08/18 09:00 02/06/18 02:14 Vancomycin HCl 500 mg/Dextrose 110 ml @ 110 mls/hr Q24H IVPB 01/15/18 10:00 01/20/18 09:59 01/15/18 10:23 Ayala Forman M.D. Jan 15, 2018 15:28
[2018-01-15 16:00] VITALS: BP 129/74
[2018-01-15] MEDS: Nitroglycerin Patch 0.4mg TDERMAL SCH (16:09)
[2018-01-15] MEDS ORDERED: Pneumococcal Vaccine 25mcg/0.5ml IM ONE (16:30)
[2018-01-15] MEDS: Amikacin 400 MG in NS 110 ML IV SCH (17:47)
--- NOTE | 2018-01-15 18:28 | General Progress Note ---
Assessment/Plan Problem List: (1) CKD (chronic kidney disease) ICD Codes: N18.9 - Chronic kidney disease, unspecified SNOMED: 503943528 Qualifiers: Qualified Codes: N18.9 - Chronic kidney disease, unspecified (2) Hypernatremia ICD Codes: E87.0 - Hyperosmolality and hypernatremia SNOMED: 30489701 (3) Diabetes ICD Codes: E11.9 - Type 2 diabetes mellitus without complications SNOMED: 29976837 Assessment/Plan continue Levemir 20 units bid continue NISS Subjective ROS Limited/Unobtainable: Yes Allergies: Coded Allergies: No Known Allergies (Verified , 01/27/10) All Systems: reviewed and negative except above Subjective events noted - glucose values stable Objective Last 24 Hour Vital Signs Date Time Temp Pulse Resp B/P (MAP) Pulse Ox O2 Delivery O2 Flow Rate FiO2 01/15/18 16:09 131/64 01/15/18 16:00 98.9 74 18 129/74 (92) 96 98.9 01/15/18 12:00 98.0 72 18 131/64 (86) 94 98.0 01/15/18 09:38 Nasal Cannula 2.0 28 01/15/18 09:38 97 Nasal Cannula 2.0 28 01/15/18 09:38 78 18 Nasal Cannula 2.0 28 01/15/18 09:00 Nasal Cannula 2.0 01/15/18 08:57 70 141/56 01/15/18 08:00 97.9 70 18 141/56 (84) 99 97.9 01/15/18 04:00 97.3 78 22 132/89 (103) 98 97.3 01/15/18 00:00 97.2 78 17 111/65 (80) 100 97.2 01/14/18 21:00 Nasal Cannula 2.0 01/14/18 20:55 Nasal Cannula 2.0 28 01/14/18 20:55 98 Nasal Cannula 2.0 28 01/14/18 20:55 75 18 Nasal Cannula 2.0 28 01/14/18 20:00 97.7 66 20 117/60 (79) 96 97.7 Intake and Output 01/14/18 01/15/18 19:00 07:00 Intake Total 740 ml 595 ml Output Total 1000 ml 550 ml Balance -260 ml 45 ml Intake Free Water 200 ml 100 ml Tube Feeding 540 ml 495 ml Output Urine Total 1000 ml 550 ml # Bowel Movements 2 1 Laboratory Tests 01/15/18 05:00: White Blood Count 6.7, Red Blood Count 3.08L, Hemoglobin 9.5L, Hematocrit 28.3L , Mean Corpuscular Volume 92, Mean Corpuscular Hemoglobin 31.0, Mean Corpuscular Hemoglobin Concent 33.6, Red Cell Distribution Width 16.5H, Platelet Count 148L, Mean Platelet Volume 9.2, Neutrophils (%) (Auto) 54.2, Lymphocytes (%) (Auto) 37.3, Monocytes (%) (Auto) 6.2, Eosinophils (%) (Auto) 1.8, Basophils (%) (Auto) 0.4, Erythrocyte Sedimentation Rate 120H, Sodium Level 150H, Potassium Level 4.1, Chloride Level 114H, Carbon Dioxide Level 26, Anion Gap 10, Blood Urea Nitrogen 41H, Creatinine 1.5H, Estimat Glomerular Filtration Rate , Glucose Level 120H, Calcium Level 8.6, Phosphorus Level 4.4, Magnesium Level 2.6H, Total Bilirubin 0.3, Aspartate Amino Transf (AST/SGOT) 18 , Alanine Aminotransferase (ALT/SGPT) 15, Alkaline Phosphatase 85, C-Reactive Protein, Quantitative 8.8H, Total Protein 7.7, Albumin 2.2L, Globulin 5.5, Albumin/Globulin Ratio 0.4L, Random Vancomycin Level 11.3 Height (Feet): 5 Height (Inches): 5.00 Weight (Pounds): 182 General Appearance: no apparent distress Neck: normal alignment Cardiovascular: normal rate Respiratory/Chest: decreased breath sounds Abdomen: normal bowel sounds, other - PEG Pelvis: normal external exam Extremities: other - left AKA Objective Current Medications Medications (Trade) Dose Ordered Sig/Nancy Route PRN Reason Start Time Stop Time Status Last Admin Dose Admin Acetaminophen (Tylenol) 650 mg Q4H PRN ORAL T>100.5 01/07/18 21:00 02/06/18 20:59 01/13/18 22:59 Albuterol/ Ipratropium (Albuterol/ Ipratropium) 3 ml Q4H PRN HHN Shortness of Breath 01/11/18 10:51 01/16/18 10:50 Amikacin Protocol (Amikacin pharmacy to dose) 1 ea DAILY PRN MISC Per rx protocol 01/14/18 16:00 02/13/18 15:59 Amikacin Sulfate 400 mg/Sodium Chloride 111.6 ml @ 223.2 mls/ hr Q24H IV 01/14/18 18:00 01/21/18 17:59 01/15/18 17:47 Amlodipine Besylate (Norvasc) 5 mg DAILY GT 01/13/18 09:00 02/06/18 00:25 01/15/18 08:57 Apixaban (Eliquis) 2.5 mg BID GT 01/08/18 09:00 02/06/18 08:59 01/15/18 17:20 Aspirin (ASA) 81 mg DAILY NG 01/09/18 09:00 02/08/18 08:59 01/15/18 08:57 Chlorhexidine Gluconate (Jossy-Hex 2%) 1 applic DAILY@2000 TOPIC 01/13/18 20:00 02/12/18 19:59 01/14/18 20:34 Clonidine HCl (Catapres Tab) 0.1 mg Q4H PRN ORAL sbp more than 160 01/07/18 21:00 02/06/18 20:59 Dextrose (Dextrose 50%) 25 ml STAT PRN IV Hypoglycemia 01/07/18 21:00 02/06/18 20:59 Dextrose (Dextrose 50%) 50 ml STAT PRN IV Hypoglycemia 01/07/18 21:00 02/06/18 20:59 Epoetin Wallace (Procrit (for non ESRD use)) 10,000 units MON-WED-FRI SUBQ 01/08/18 21:00 02/07/18 20:59 01/13/18 21:36 Heparin Sodium/ Sodium Chloride (Heparin 2000 units/Ns 1000ml premix) 2,000 unit ONCE INJ 01/14/18 08:30 01/16/18 08:29 Insulin Aspart (NovoLOG) Please send pen with patient... BEFORE MEALS AND HS SUBQ 01/07/18 21:00 02/06/18 00:26 01/15/18 16:15 Insulin Detemir (Levemir) 20 units BID SUBQ 01/14/18 09:00 02/06/18 08:59 01/15/18 17:53 Lansoprazole (Prevacid) 30 mg Q12HR GT 01/10/18 21:00 02/09/18 20:59 01/15/18 08:57 Levetiracetam (Keppra) 750 mg Q12HR GT 01/07/18 21:00 02/06/18 00:25 01/15/18 08:57 Lidocaine HCl (Xylocaine 1% 30ml) 30 ml ONCE INJ 01/14/18 08:30 01/16/18 08:29 Metoclopramide HCl (Reglan) 5 mg EVERY 6 HOURS NG 01/15/18 18:00 02/13/18 17:59 01/15/18 17:20 Metoclopramide HCl (Reglan) 10 mg Q6H PRN IVP vomiting 01/14/18 17:15 02/09/18 21:59 Nitroglycerin (Ntg) 1 patch Q24H TDERMAL 01/08/18 14:00 02/06/18 13:59 01/15/18 16:09 Polyethylene Glycol (Miralax) 17 gm HSPRN PRN ORAL Constipation 01/07/18 21:00 02/06/18 20:59 Vancomycin HCl (Vanco rx to dose) 1 ea DAILY PRN MISC Per rx protocol 01/08/18 09:00 02/06/18 02:14 Vancomycin HCl 500 mg/Dextrose 110 ml @ 110 mls/hr Q24H IVPB 01/15/18 10:00 01/20/18 09:59 01/15/18 10:23 Item Value Date Time Bedside Blood Glucose 139 mg/dl H 01/15/18 1753 Bedside Blood Glucose 234 mg/dl H 01/15/18 1123 Bedside Blood Glucose 137 mg/dl H 01/15/18 0859 Bedside Blood Glucose 134 mg/dl H 01/15/18 0627 Bedside Blood Glucose 116 mg/dl 01/14/18 2100 Bedside Blood Glucose 90 mg/dl 01/14/18 1800 Bedside Blood Glucose 158 mg/dl H 01/14/18 1201 Kodak Villeda MD Jan 15, 2018 18:28
[2018-01-15 20:00] VITALS: BP 123/74
[2018-01-15] MEDS: Dyna-Hex 2% Top Sol 2oz TOPIC SCH (20:37)
[2018-01-15] MEDS: Epogen (for non ESRD use) SUBQ SCH (21:01)
[2018-01-16 00:01] VITALS: BP 143/52
[2018-01-16] MEDS: Metoclopramide 10mg/10ml Liq NG SCH ×4 (00:38→17:58)
[2018-01-16 04:00] VITALS: BP 137/58
[2018-01-16] MEDS: NovoLOG Insulin Flexpen SUBQ SCH ×4 (05:51→20:09)
[2018-01-16 07:23] LABS: BASOPHILS % (AUTO) 0.4 % (0.0-2.0); BLOOD UREA NITROGEN 43 mg/dL (7-18); CALCIUM 8.5 MG/DL (8.5-10.1); CHLORIDE 113 MMOL/L (98-107); CREATININE 1.5 MG/DL (0.55-1.30); EOSINOPHILS % (AUTO) 2.5 % (0.0-3.0); HEMATOCRIT 27.6 % (37.0-47.0); HEMOGLOBIN 9.3 G/DL (12.0-16.0); LYMPHOCYTES % (AUTO) 46.1 % (20.0-45.0); MEAN CORPUSCULAR VOLUME 94 FL (80-99); MONOCYTES % (AUTO) 6.1 % (1.0-10.0); NEUTROPHILS % (AUTO) 44.9 % (45.0-75.0); PLATELET COUNT 151 K/UL (150-450); POTASSIUM 4.5 MMOL/L (3.5-5.1); RED BLOOD COUNT 2.93 M/UL (4.20-5.40); RED CELL DISTRIBUTION WIDTH 16.5 % (11.6-14.8); SODIUM 148 MMOL/L (136-145); WHITE BLOOD COUNT 6.2 K/UL (4.8-10.8)
[2018-01-16 08:00] VITALS: BP 136/79
[2018-01-16] MEDS: Eliquis 2.5mg tablet GT SCH ×2 (08:35→17:59)
[2018-01-16] MEDS: levETIRAcetam 500mg/5ml Liquid GT SCH ×2 (08:35→20:08)
[2018-01-16] MEDS: Aspirin Baby 81mg NG SCH (08:35)
[2018-01-16] MEDS: Levemir Flexpen SUBQ SCH ×2 (08:45→18:06)
[2018-01-16 09:59] LABS: ANION GAP 15 mmol/L (5-15)
[2018-01-16 10:07] LABS: CARBON DIOXIDE 24 MMOL/L (21-32)
[2018-01-16] MEDS: Vancomycin 500mg/D5W 110ml IVPB SCH ×2 (10:15)
--- NOTE | 2018-01-16 11:45 | GI Progress Note ---
Assessment/Plan Problems: (1) Anemia ICD Codes: D64.9 - Anemia, unspecified SNOMED: 263327124 (2) Malfunction of gastrostomy tube ICD Codes: K94.23 - Gastrostomy malfunction SNOMED: 633763131 (3) Dehydration ICD Codes: E86.0 - Dehydration SNOMED: 75913712 (4) G tube feedings ICD Codes: Z93.1 - G tube feedings SNOMED: 400387460 (5) Diabetes ICD Codes: E11.9 - Type 2 diabetes mellitus without complications SNOMED: 84620473 (6) Dementia ICD Codes: F03.90 - Dementia SNOMED: 75011422 Status: stable Status Narrative Discussed with Dr. Arana. Assessment/Plan GT 20french changed at bedside. GTFs tolerated at goal rate. change reglan dosage to 5mg IV ATC DM management electrolyte correction ppi prn transfusions fu labs The patient was seen and examined at bedside and all new and available data was reviewed in the patients chart. I agree with the above findings, impression and plan. (Patient seen earlier today. Signature stamp does not reflect patient encounter time.). - Jamaal Arana MD Subjective Subjective limited Objective Last 24 Hour Vital Signs Date Time Temp Pulse Resp B/P (MAP) Pulse Ox O2 Delivery O2 Flow Rate FiO2 01/16/18 09:00 Nasal Cannula 2.0 01/16/18 08:35 79 136/79 01/16/18 08:00 98.8 79 17 136/79 (98) 99 98.8 01/16/18 04:00 97.7 73 20 137/58 (84) 95 97.7 01/16/18 00:01 98.1 74 18 143/52 (82) 96 98.1 01/15/18 21:00 Nasal Cannula 2.0 01/15/18 20:06 Nasal Cannula 2.0 28 01/15/18 20:06 74 20 Nasal Cannula 2.0 28 01/15/18 20:05 96 Nasal Cannula 2.0 28 01/15/18 20:00 98.9 75 22 123/74 (90) 96 98.9 01/15/18 16:09 131/64 01/15/18 16:00 98.9 74 18 129/74 (92) 96 98.9 01/15/18 12:00 98.0 72 18 131/64 (86) 94 98.0 Intake and Output 01/15/18 01/16/18 19:00 07:00 Intake Total 640 ml 655 ml Output Total 400 ml 250 ml Balance 240 ml 405 ml Intake Free Water 100 ml 160 ml Tube Feeding 540 ml 495 ml Output Urine Total 400 ml 250 ml # Bowel Movements 2 Laboratory Tests Test 01/16/18 05:20 White Blood Count 6.2 K/UL (4.8-10.8) Red Blood Count 2.93 M/UL (4.20-5.40) L Hemoglobin 9.3 G/DL (12.0-16.0) L Hematocrit 27.6 % (37.0-47.0) L Mean Corpuscular Volume 94 FL (80-99) Mean Corpuscular Hemoglobin 31.6 PG (27.0-31.0) H Mean Corpuscular Hemoglobin Concent 33.5 G/DL (32.0-36.0) Red Cell Distribution Width 16.5 % (11.6-14.8) H Platelet Count 151 K/UL (150-450) Mean Platelet Volume 8.5 FL (6.5-10.1) Neutrophils (%) (Auto) 44.9 % (45.0-75.0) L Lymphocytes (%) (Auto) 46.1 % (20.0-45.0) H Monocytes (%) (Auto) 6.1 % (1.0-10.0) Eosinophils (%) (Auto) 2.5 % (0.0-3.0) Basophils (%) (Auto) 0.4 % (0.0-2.0) Sodium Level 148 MMOL/L (136-145) H Potassium Level 4.5 MMOL/L (3.5-5.1) Chloride Level 113 MMOL/L (98-107) H Carbon Dioxide Level 24 MMOL/L (21-32) Anion Gap 15 mmol/L (5-15) Blood Urea Nitrogen 43 mg/dL (7-18) H Creatinine 1.5 MG/DL (0.55-1.30) H Estimat Glomerular Filtration Rate mL/min (>60) Glucose Level 121 MG/DL (74-106) H Calcium Level 8.5 MG/DL (8.5-10.1) Height (Feet): 5 Height (Inches): 5.00 Weight (Pounds): 182 General Appearance: WD/WN, no apparent distress, alert Cardiovascular: normal rate Respiratory/Chest: normal breath sounds, no respiratory distress Abdominal Exam: normal bowel sounds, non tender, soft, GT site - c/d/i Extremities: normal range of motion, non-tender Justus Foreman NP Jan 16, 2018 11:45
[2018-01-16 12:00] VITALS: BP 129/80
--- NOTE | 2018-01-16 12:39 | General Surgery Progress Note ---
General Surgery-Progress Note Subjective Additional Comments no acute events. stable. Objective Last 24 Hour Vital Signs Date Time Temp Pulse Resp B/P (MAP) Pulse Ox O2 Delivery O2 Flow Rate FiO2 01/16/18 09:00 Nasal Cannula 2.0 01/16/18 08:35 79 136/79 01/16/18 08:00 98.8 79 17 136/79 (98) 99 98.8 01/16/18 04:00 97.7 73 20 137/58 (84) 95 97.7 01/16/18 00:01 98.1 74 18 143/52 (82) 96 98.1 01/15/18 21:00 Nasal Cannula 2.0 01/15/18 20:06 Nasal Cannula 2.0 28 01/15/18 20:06 74 20 Nasal Cannula 2.0 28 01/15/18 20:05 96 Nasal Cannula 2.0 28 01/15/18 20:00 98.9 75 22 123/74 (90) 96 98.9 01/15/18 16:09 131/64 01/15/18 16:00 98.9 74 18 129/74 (92) 96 98.9 I&O Intake and Output 01/15/18 01/16/18 19:00 07:00 Intake Total 640 ml 655 ml Output Total 400 ml 250 ml Balance 240 ml 405 ml Intake Free Water 100 ml 160 ml Tube Feeding 540 ml 495 ml Output Urine Total 400 ml 250 ml # Bowel Movements 2 Wound: clean, dry, intact Drains: other Cardiovascular: RSR Respiratory: clear Abdomen: soft, flat, distended, present bowel sounds Extremities: other Laboratory Tests Test 01/16/18 05:20 White Blood Count 6.2 K/UL (4.8-10.8) Red Blood Count 2.93 M/UL (4.20-5.40) L Hemoglobin 9.3 G/DL (12.0-16.0) L Hematocrit 27.6 % (37.0-47.0) L Mean Corpuscular Volume 94 FL (80-99) Mean Corpuscular Hemoglobin 31.6 PG (27.0-31.0) H Mean Corpuscular Hemoglobin Concent 33.5 G/DL (32.0-36.0) Red Cell Distribution Width 16.5 % (11.6-14.8) H Platelet Count 151 K/UL (150-450) Mean Platelet Volume 8.5 FL (6.5-10.1) Neutrophils (%) (Auto) 44.9 % (45.0-75.0) L Lymphocytes (%) (Auto) 46.1 % (20.0-45.0) H Monocytes (%) (Auto) 6.1 % (1.0-10.0) Eosinophils (%) (Auto) 2.5 % (0.0-3.0) Basophils (%) (Auto) 0.4 % (0.0-2.0) Sodium Level 148 MMOL/L (136-145) H Potassium Level 4.5 MMOL/L (3.5-5.1) Chloride Level 113 MMOL/L (98-107) H Carbon Dioxide Level 24 MMOL/L (21-32) Anion Gap 15 mmol/L (5-15) Blood Urea Nitrogen 43 mg/dL (7-18) H Creatinine 1.5 MG/DL (0.55-1.30) H Estimat Glomerular Filtration Rate mL/min (>60) Glucose Level 121 MG/DL (74-106) H Calcium Level 8.5 MG/DL (8.5-10.1) Plan Problems: (1) Sepsis Assessment & Plan: on IV Abx as per ID central line placed for meds over the weekend will discuss with ID about g tube abx vs IV may need PICC line if IV Abx required (2) Sacral decubitus ulcer, stage III Assessment & Plan: Stage III sacral full thickness pressure injury to sacrum (L )8cm x (W)6.2cm .full thickness injury at coccygeal area with approx 10% slough centrally with pink epithelialized borders.No odor or exudate noted. Full thickness ulcer noted to lateral R tibia(L)2cm x (W)1.4cm .Wound bed with approx 20% mixed slough /necrosis otherwise red with macerated borders .Scant non-odorous serous exudate noted to drsg upon removal. Periwound skin is dry. No edema noted. R heel soft but blanchable. Tx Plan: Cleanse Sacral wound with Saline ;Apply Triad Paste to sacral wound.Cavilon wipe Periwound and cover with Biatain drsg every other day and prn. Cleanse wound lateral RLE with saline.Apply Silvasorb Gel. Cavilon wipe to borders and cover with Biatain drsg every other day and prn. Recommend Surface support overlay on bed. Reposition at minimum every 2hours as tolerated. Off-load R heel with pillow Patient presented with above wound. Was seen as stage II prior and currently with stage III in small portion of wound. labs reviewed micro reviewed no acute surgical intervention necessary unfortunately given her medical state/condition wounds may deteriorate. will continue with maximal care as detailed above Taco Carter Jan 16, 2018 12:39
--- NOTE | 2018-01-16 13:15 | General Progress Note ---
Assessment/Plan Problem List: (1) ATN (acute tubular necrosis) ICD Codes: N17.0 - Acute kidney failure with tubular necrosis SNOMED: 20008347 (2) G tube feedings ICD Codes: Z93.1 - G tube feedings SNOMED: 426448635 (3) Dehydration ICD Codes: E86.0 - Dehydration SNOMED: 27010160 (4) Hyperglycemia ICD Codes: R73.9 - Hyperglycemia, unspecified SNOMED: 78768228 (5) Dementia ICD Codes: F03.90 - Dementia SNOMED: 89844343 (6) UTI (urinary tract infection) Qualifiers: Qualified Codes: N39.0 - Urinary tract infection, site not specified (7) Anemia ICD Codes: D64.9 - Anemia, unspecified SNOMED: 442211273 (8) Functional quadriplegia ICD Codes: R53.2 - Functional quadriplegia SNOMED: 637436233572418 Status: stable Assessment/Plan DC delayed due to isolation issues- Transfused one unit DC groin line- On Amikacin / Vanco Reglan to via GT GT feeding BS and BP check and medication adjustment per consultants repeat CXR Negative discussed with RN DC ID: (1) Aspiration pneumonia Assessment & Plan: with productive cough and fever, due to pseudomonas aeruginosa and MDR E.coli , resistant to meropenem, so will switch to amikacin to cover both for three weeks and continue vancomycin to cover her bacteremia , monitor CXR to evaluate for new infiltrates (2) Sepsis Assessment & Plan: with staph warneri , already on vancomycin empirically , source possible sacral pressure wound. will repeat blood culture to confirm clearance and treat for two weeks total (3) CKD (chronic kidney disease) Assessment & Plan: now improving , continue IVF , renal is following (4) Diabetes Assessment & Plan: poorly controled , recommend tight glycemic control to keep blood glucose between 100-140 (5) Sacral decubitus ulcer, stage III Assessment & Plan: continue off loading , and local wound care as per hospital protocol (6) Fever Assessment & Plan: due to the above , improving , continue wide spectrum antibiotics Subjective Subjective ROS Limited/Unobtainable: No Allergies: Coded Allergies: No Known Allergies (Verified , 01/27/10) Objective Last 24 Hour Vital Signs Date Time Temp Pulse Resp B/P (MAP) Pulse Ox O2 Delivery O2 Flow Rate FiO2 01/16/18 09:00 Nasal Cannula 2.0 01/16/18 08:35 79 136/79 01/16/18 08:00 98.8 79 17 136/79 (98) 99 98.8 01/16/18 04:00 97.7 73 20 137/58 (84) 95 97.7 01/16/18 00:01 98.1 74 18 143/52 (82) 96 98.1 01/15/18 21:00 Nasal Cannula 2.0 01/15/18 20:06 Nasal Cannula 2.0 28 01/15/18 20:06 74 20 Nasal Cannula 2.0 28 01/15/18 20:05 96 Nasal Cannula 2.0 28 01/15/18 20:00 98.9 75 22 123/74 (90) 96 98.9 01/15/18 16:09 131/64 01/15/18 16:00 98.9 74 18 129/74 (92) 96 98.9 Intake and Output 01/15/18 01/16/18 19:00 07:00 Intake Total 640 ml 700 ml Output Total 400 ml 250 ml Balance 240 ml 450 ml Intake Free Water 100 ml 160 ml Tube Feeding 540 ml 540 ml Output Urine Total 400 ml 250 ml # Bowel Movements 2 Laboratory Tests 01/16/18 05:20: White Blood Count 6.2, Red Blood Count 2.93L, Hemoglobin 9.3L, Hematocrit 27.6L , Mean Corpuscular Volume 94, Mean Corpuscular Hemoglobin 31.6H, Mean Corpuscular Hemoglobin Concent 33.5, Red Cell Distribution Width 16.5H, Platelet Count 151, Mean Platelet Volume 8.5, Neutrophils (%) (Auto) 44.9L, Lymphocytes (%) (Auto) 46.1H, Monocytes (%) (Auto) 6.1, Eosinophils (%) (Auto) 2.5, Basophils (%) (Auto) 0.4, Sodium Level 148H, Potassium Level 4.5, Chloride Level 113H, Carbon Dioxide Level 24, Anion Gap 15, Blood Urea Nitrogen 43H, Creatinine 1.5H, Estimat Glomerular Filtration Rate , Glucose Level 121H, Calcium Level 8.5 Height (Feet): 5 Height (Inches): 5.00 Weight (Pounds): 182 General Appearance: no apparent distress Objective no other changes Estevan Orozoc MD Jan 16, 2018 13:15
[2018-01-16] MEDS: Nitroglycerin Patch 0.4mg TDERMAL SCH (14:18)
--- NOTE | 2018-01-16 14:56 | Pulmonology Progress Note ---
Assessment/Plan Problems: (1) Sepsis (2) ATN (acute tubular necrosis) (3) Hyperglycemia (4) G tube feedings (5) Decubital ulcer (6) Functional quadriplegia (7) Seizure disorder (8) Sacral decubitus ulcer, stage III Assessment/Plan all reviewed looks comfortable continue abx iv fluids check electrolytes, BUN/creatinine decreasing sliding scale diabetic diet f/u ID and endo recommendations isolation will be discontinued today dc planning Subjective ROS Limited/Unobtainable: No Constitutional: Reports: no symptoms HEENT: Repors: no symptoms Allergies: Coded Allergies: No Known Allergies (Verified , 01/27/10) Objective Last 24 Hour Vital Signs Date Time Temp Pulse Resp B/P (MAP) Pulse Ox O2 Delivery O2 Flow Rate FiO2 01/16/18 14:18 129/80 01/16/18 12:00 97.9 81 19 129/80 (96) 98 97.9 01/16/18 09:00 Nasal Cannula 2.0 01/16/18 08:35 79 136/79 01/16/18 08:00 98.8 79 17 136/79 (98) 99 98.8 01/16/18 04:00 97.7 73 20 137/58 (84) 95 97.7 01/16/18 00:01 98.1 74 18 143/52 (82) 96 98.1 01/15/18 21:00 Nasal Cannula 2.0 01/15/18 20:06 Nasal Cannula 2.0 28 01/15/18 20:06 74 20 Nasal Cannula 2.0 28 01/15/18 20:05 96 Nasal Cannula 2.0 28 01/15/18 20:00 98.9 75 22 123/74 (90) 96 98.9 01/15/18 16:09 131/64 01/15/18 16:00 98.9 74 18 129/74 (92) 96 98.9 Intake and Output 01/15/18 01/16/18 19:00 07:00 Intake Total 640 ml 700 ml Output Total 400 ml 250 ml Balance 240 ml 450 ml Intake Free Water 100 ml 160 ml Tube Feeding 540 ml 540 ml Output Urine Total 400 ml 250 ml # Bowel Movements 2 General Appearance: WD/WN HEENT: normocephalic, atraumatic Respiratory/Chest: chest wall non-tender, lungs clear Cardiovascular: normal peripheral pulses, normal rate Abdomen: normal bowel sounds, soft, non tender Genitourinary: normal external genitalia Extremities: no cyanosis Skin: no lesions Neurologic/Psychiatric: donor relations 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 II-XII grossly normal Laboratory Tests 01/16/18 05:20: White Blood Count 6.2, Red Blood Count 2.93L, Hemoglobin 9.3L, Hematocrit 27.6L , Mean Corpuscular Volume 94, Mean Corpuscular Hemoglobin 31.6H, Mean Corpuscular Hemoglobin Concent 33.5, Red Cell Distribution Width 16.5H, Platelet Count 151, Mean Platelet Volume 8.5, Neutrophils (%) (Auto) 44.9L, Lymphocytes (%) (Auto) 46.1H, Monocytes (%) (Auto) 6.1, Eosinophils (%) (Auto) 2.5, Basophils (%) (Auto) 0.4, Sodium Level 148H, Potassium Level 4.5, Chloride Level 113H, Carbon Dioxide Level 24, Anion Gap 15, Blood Urea Nitrogen 43H, Creatinine 1.5H, Estimat Glomerular Filtration Rate , Glucose Level 121H, Calcium Level 8.5 Current Medications Medications (Trade) Dose Ordered Sig/Nancy Route PRN Reason Start Time Stop Time Status Last Admin Dose Admin Acetaminophen (Tylenol) 650 mg Q4H PRN ORAL T>100.5 01/07/18 21:00 02/06/18 20:59 01/13/18 22:59 Amikacin Protocol (Amikacin pharmacy to dose) 1 ea DAILY PRN MISC Per rx protocol 01/14/18 16:00 02/13/18 15:59 Amikacin Sulfate 400 mg/Sodium Chloride 111.6 ml @ 223.2 mls/ hr Q24H IV 01/14/18 18:00 01/21/18 17:59 01/15/18 17:47 Amlodipine Besylate (Norvasc) 5 mg DAILY GT 01/13/18 09:00 02/06/18 00:25 01/16/18 08:35 Apixaban (Eliquis) 2.5 mg BID GT 01/08/18 09:00 02/06/18 08:59 01/16/18 08:35 Aspirin (ASA) 81 mg DAILY NG 01/09/18 09:00 02/08/18 08:59 01/16/18 08:35 Chlorhexidine Gluconate (Ojssy-Hex 2%) 1 applic DAILY@2000 TOPIC 01/13/18 20:00 02/12/18 19:59 01/15/18 20:37 Clonidine HCl (Catapres Tab) 0.1 mg Q4H PRN ORAL sbp more than 160 01/07/18 21:00 02/06/18 20:59 Dextrose (Dextrose 50%) 25 ml STAT PRN IV Hypoglycemia 01/07/18 21:00 02/06/18 20:59 Dextrose (Dextrose 50%) 50 ml STAT PRN IV Hypoglycemia 01/07/18 21:00 02/06/18 20:59 Epoetin Wallace (Procrit (for non ESRD use)) 10,000 units SAT-SAT-SAT SUBQ 01/08/18 21:00 02/07/18 20:59 01/15/18 21:01 Insulin Aspart (NovoLOG) Please send pen with patient... BEFORE MEALS AND HS SUBQ 01/07/18 21:00 02/06/18 00:26 01/16/18 11:47 Insulin Detemir (Levemir) 20 units BID SUBQ 01/14/18 09:00 02/06/18 08:59 01/16/18 08:45 Lansoprazole (Prevacid) 30 mg Q12HR GT 01/10/18 21:00 02/09/18 20:59 01/16/18 08:35 Levetiracetam (Keppra) 750 mg Q12HR GT 01/07/18 21:00 02/06/18 00:25 01/16/18 08:35 Metoclopramide HCl (Reglan) 5 mg EVERY 6 HOURS NG 01/15/18 18:00 02/13/18 17:59 01/16/18 11:40 Metoclopramide HCl (Reglan) 10 mg Q6H PRN IVP vomiting 01/14/18 17:15 02/09/18 21:59 Nitroglycerin (Ntg) 1 patch Q24H TDERMAL 01/08/18 14:00 02/06/18 13:59 01/16/18 14:18 Polyethylene Glycol (Miralax) 17 gm HSPRN PRN ORAL Constipation 01/07/18 21:00 02/06/18 20:59 Vancomycin HCl (Vanco rx to dose) 1 ea DAILY PRN MISC Per rx protocol 01/08/18 09:00 02/06/18 02:14 Vancomycin HCl 500 mg/Dextrose 110 ml @ 110 mls/hr Q24H IVPB 01/15/18 10:00 01/20/18 09:59 01/16/18 10:15 Saira Lazcano MD Jan 16, 2018 14:56
[2018-01-16 16:07] VITALS: BP 131/82
[2018-01-16] MEDS: Amikacin 400 MG in NS 110 ML IV SCH (17:59)
--- NOTE | 2018-01-16 18:20 | Infectious Diseases Prog Note ---
Assessment/Plan Problems: (1) Aspiration pneumonia Assessment & Plan: with productive cough and fever, due to pseudomonas aeruginosa and MDR E.coli , resistant to meropenem. continue amikacin to cover both bacteria for three weeks. EOT 02/04/18 continue vancomycin to cover her bacteremia for two weeks. please monitor amikacin trough to keep less than 5 every 3-5 days . please obtain peak and trough tomorrow after her third dose pharmacy to monitor trough level as an outpatient to keep less than 5 . monitor weekly labs while on antibiotics D/W primary and nurse (2) Sepsis Assessment & Plan: with staph warneri , already on vancomycin empirically , source possible sacral pressure wound. will repeat blood culture to confirm clearance and treat for two weeks total from the clearance date (3) CKD (chronic kidney disease) Assessment & Plan: now improving , continue IVF , renal is following (4) Diabetes Assessment & Plan: poorly controled , recommend tight glycemic control to keep blood glucose between 100-140 (5) Sacral decubitus ulcer, stage III Assessment & Plan: continue off loading , and local wound care as per hospital protocol (6) Fever Assessment & Plan: due to the above , improving , continue wide spectrum antibiotics, and tylenol as needed Subjective ROS Limited/Unobtainable: Yes Allergies: Coded Allergies: No Known Allergies (Verified , 01/27/10) Subjective she has no cough and no significant oral secretions , lying in bed comfortable, unresponsive, no fever today , NAD Objective Vital Signs Last 24 Hour Vital Signs Date Time Temp Pulse Resp B/P (MAP) Pulse Ox O2 Delivery O2 Flow Rate FiO2 01/16/18 16:07 98.9 78 17 131/82 (98) 99 98.9 01/16/18 14:18 129/80 01/16/18 12:00 97.9 81 19 129/80 (96) 98 97.9 01/16/18 09:00 Nasal Cannula 2.0 01/16/18 08:35 79 136/79 01/16/18 08:15 Nasal Cannula 2.0 28 01/16/18 08:14 95 Nasal Cannula 2.0 28 01/16/18 08:13 83 20 Nasal Cannula 2.0 28 01/16/18 08:00 98.8 79 17 136/79 (98) 99 98.8 01/16/18 04:00 97.7 73 20 137/58 (84) 95 97.7 01/16/18 00:01 98.1 74 18 143/52 (82) 96 98.1 01/15/18 21:00 Nasal Cannula 2.0 01/15/18 20:06 Nasal Cannula 2.0 28 01/15/18 20:06 74 20 Nasal Cannula 2.0 28 01/15/18 20:05 96 Nasal Cannula 2.0 28 01/15/18 20:00 98.9 75 22 123/74 (90) 96 98.9 Height (Feet): 5 Height (Inches): 5.00 Weight (Pounds): 182 General Appearance: WD/WN, no acute distress HEENT: normocephalic, atraumatic, anicteric, mucous membranes moist, supple, no JVD Respiratory/Chest: chest wall non-tender, lungs clear, normal breath sounds, no respiratory distress, no accessory muscle use, decreased breath sounds, crackles/rales Cardiovascular: normal peripheral pulses, normal rate, regular rhythm, no gallop/murmur, no JVD Abdomen: normal bowel sounds, soft, non tender, no organomegaly, non distended , no mass, no scars Extremities: no cyanosis, no clubbing Skin: no rash, no lesions, ulcers - of the sacrum Neurologic/Psychiatric: unresponsiveness Lymphatic: no neck adenopathy, no groin adenopathy Musculoskeletal: normal muscle bulk Laboratory Tests Test 01/16/18 05:20 01/16/18 17:20 White Blood Count 6.2 K/UL (4.8-10.8) Red Blood Count 2.93 M/UL (4.20-5.40) L Hemoglobin 9.3 G/DL (12.0-16.0) L Hematocrit 27.6 % (37.0-47.0) L Mean Corpuscular Volume 94 FL (80-99) Mean Corpuscular Hemoglobin 31.6 PG (27.0-31.0) H Mean Corpuscular Hemoglobin Concent 33.5 G/DL (32.0-36.0) Red Cell Distribution Width 16.5 % (11.6-14.8) H Platelet Count 151 K/UL (150-450) Mean Platelet Volume 8.5 FL (6.5-10.1) Neutrophils (%) (Auto) 44.9 % (45.0-75.0) L Lymphocytes (%) (Auto) 46.1 % (20.0-45.0) H Monocytes (%) (Auto) 6.1 % (1.0-10.0) Eosinophils (%) (Auto) 2.5 % (0.0-3.0) Basophils (%) (Auto) 0.4 % (0.0-2.0) Sodium Level 148 MMOL/L (136-145) H Potassium Level 4.5 MMOL/L (3.5-5.1) Chloride Level 113 MMOL/L (98-107) H Carbon Dioxide Level 24 MMOL/L (21-32) Anion Gap 15 mmol/L (5-15) Blood Urea Nitrogen 43 mg/dL (7-18) H Creatinine 1.5 MG/DL (0.55-1.30) H Estimat Glomerular Filtration Rate mL/min (>60) Glucose Level 121 MG/DL (74-106) H Calcium Level 8.5 MG/DL (8.5-10.1) Amikacin Level Trough Pending Current Medications Medications (Trade) Dose Ordered Sig/Nancy Route PRN Reason Start Time Stop Time Status Last Admin Dose Admin Acetaminophen (Tylenol) 650 mg Q4H PRN ORAL T>100.5 01/07/18 21:00 02/06/18 20:59 01/13/18 22:59 Amikacin Protocol (Amikacin pharmacy to dose) 1 ea DAILY PRN MISC Per rx protocol 01/14/18 16:00 02/13/18 15:59 Amikacin Sulfate 400 mg/Sodium Chloride 111.6 ml @ 223.2 mls/ hr Q24H IV 01/14/18 18:00 01/21/18 17:59 01/16/18 17:59 Amlodipine Besylate (Norvasc) 5 mg DAILY GT 01/13/18 09:00 02/06/18 00:25 01/16/18 08:35 Apixaban (Eliquis) 2.5 mg BID GT 01/08/18 09:00 02/06/18 08:59 01/16/18 17:59 Aspirin (ASA) 81 mg DAILY NG 01/09/18 09:00 02/08/18 08:59 01/16/18 08:35 Chlorhexidine Gluconate (Jossy-Hex 2%) 1 applic DAILY@2000 TOPIC 01/13/18 20:00 02/12/18 19:59 01/15/18 20:37 Clonidine HCl (Catapres Tab) 0.1 mg Q4H PRN ORAL sbp more than 160 01/07/18 21:00 02/06/18 20:59 Dextrose (Dextrose 50%) 25 ml STAT PRN IV Hypoglycemia 01/07/18 21:00 02/06/18 20:59 Dextrose (Dextrose 50%) 50 ml STAT PRN IV Hypoglycemia 01/07/18 21:00 02/06/18 20:59 Epoetin Wallace (Procrit (for non ESRD use)) 10,000 units SAT-SAT-SAT SUBQ 01/08/18 21:00 02/07/18 20:59 01/15/18 21:01 Insulin Aspart (NovoLOG) Please send pen with patient... BEFORE MEALS AND HS SUBQ 01/07/18 21:00 02/06/18 00:26 01/16/18 16:41 Insulin Detemir (Levemir) 20 units BID SUBQ 01/14/18 09:00 02/06/18 08:59 01/16/18 18:06 Lansoprazole (Prevacid) 30 mg Q12HR GT 01/10/18 21:00 02/09/18 20:59 01/16/18 08:35 Levetiracetam (Keppra) 750 mg Q12HR GT 01/07/18 21:00 02/06/18 00:25 01/16/18 08:35 Metoclopramide HCl (Reglan) 5 mg EVERY 6 HOURS NG 01/15/18 18:00 02/13/18 17:59 01/16/18 17:58 Metoclopramide HCl (Reglan) 10 mg Q6H PRN IVP vomiting 01/14/18 17:15 02/09/18 21:59 Nitroglycerin (Ntg) 1 patch Q24H TDERMAL 01/08/18 14:00 02/06/18 13:59 01/16/18 14:18 Polyethylene Glycol (Miralax) 17 gm HSPRN PRN ORAL Constipation 01/07/18 21:00 02/06/18 20:59 Vancomycin HCl (Vanco rx to dose) 1 ea DAILY PRN MISC Per rx protocol 01/08/18 09:00 02/06/18 02:14 Vancomycin HCl 500 mg/Dextrose 110 ml @ 110 mls/hr Q24H IVPB 01/15/18 10:00 01/20/18 09:59 01/16/18 10:15 Ayala Forman M.D. Jan 16, 2018 18:20
--- NOTE | 2018-01-16 19:12 | General Progress Note ---
Assessment/Plan Problem List: (1) CKD (chronic kidney disease) ICD Codes: N18.9 - Chronic kidney disease, unspecified SNOMED: 655302739 Qualifiers: Qualified Codes: N18.9 - Chronic kidney disease, unspecified (2) Hypernatremia ICD Codes: E87.0 - Hyperosmolality and hypernatremia SNOMED: 14668163 (3) Diabetes ICD Codes: E11.9 - Type 2 diabetes mellitus without complications SNOMED: 17507250 Assessment/Plan continue Levemir 20 units bid continue NISS Subjective ROS Limited/Unobtainable: Yes Allergies: Coded Allergies: No Known Allergies (Verified , 01/27/10) Subjective events noted - glucose values stable Objective Last 24 Hour Vital Signs Date Time Temp Pulse Resp B/P (MAP) Pulse Ox O2 Delivery O2 Flow Rate FiO2 01/16/18 16:07 98.9 78 17 131/82 (98) 99 98.9 01/16/18 14:18 129/80 01/16/18 12:00 97.9 81 19 129/80 (96) 98 97.9 01/16/18 09:00 Nasal Cannula 2.0 01/16/18 08:35 79 136/79 01/16/18 08:15 Nasal Cannula 2.0 28 01/16/18 08:14 95 Nasal Cannula 2.0 28 01/16/18 08:13 83 20 Nasal Cannula 2.0 28 01/16/18 08:00 98.8 79 17 136/79 (98) 99 98.8 01/16/18 04:00 97.7 73 20 137/58 (84) 95 97.7 01/16/18 00:01 98.1 74 18 143/52 (82) 96 98.1 01/15/18 21:00 Nasal Cannula 2.0 01/15/18 20:06 Nasal Cannula 2.0 28 01/15/18 20:06 74 20 Nasal Cannula 2.0 28 01/15/18 20:05 96 Nasal Cannula 2.0 28 01/15/18 20:00 98.9 75 22 123/74 (90) 96 98.9 Intake and Output 01/15/18 01/16/18 19:00 07:00 Intake Total 640 ml 700 ml Output Total 400 ml 250 ml Balance 240 ml 450 ml Intake Free Water 100 ml 160 ml Tube Feeding 540 ml 540 ml Output Urine Total 400 ml 250 ml # Bowel Movements 2 Laboratory Tests 01/16/18 05:20: White Blood Count 6.2, Red Blood Count 2.93L, Hemoglobin 9.3L, Hematocrit 27.6L , Mean Corpuscular Volume 94, Mean Corpuscular Hemoglobin 31.6H, Mean Corpuscular Hemoglobin Concent 33.5, Red Cell Distribution Width 16.5H, Platelet Count 151, Mean Platelet Volume 8.5, Neutrophils (%) (Auto) 44.9L, Lymphocytes (%) (Auto) 46.1H, Monocytes (%) (Auto) 6.1, Eosinophils (%) (Auto) 2.5, Basophils (%) (Auto) 0.4, Sodium Level 148H, Potassium Level 4.5, Chloride Level 113H, Carbon Dioxide Level 24, Anion Gap 15, Blood Urea Nitrogen 43H, Creatinine 1.5H, Estimat Glomerular Filtration Rate , Glucose Level 121H, Calcium Level 8.5 01/16/18 17:20: Amikacin Level Trough 8.7H Height (Feet): 5 Height (Inches): 5.00 Weight (Pounds): 182 General Appearance: no apparent distress Neck: normal alignment Cardiovascular: normal rate Respiratory/Chest: lungs clear Abdomen: normal bowel sounds Extremities: other - left AKA Objective Current Medications Medications (Trade) Dose Ordered Sig/Nancy Route PRN Reason Start Time Stop Time Status Last Admin Dose Admin Acetaminophen (Tylenol) 650 mg Q4H PRN ORAL T>100.5 01/07/18 21:00 02/06/18 20:59 01/13/18 22:59 Amikacin Protocol (Amikacin pharmacy to dose) 1 ea DAILY PRN MISC Per rx protocol 01/14/18 16:00 02/13/18 15:59 Amikacin Sulfate 400 mg/Sodium Chloride 111.6 ml @ 223.2 mls/ hr Q24H IV 01/14/18 18:00 01/21/18 17:59 01/16/18 17:59 Amlodipine Besylate (Norvasc) 5 mg DAILY GT 01/13/18 09:00 02/06/18 00:25 01/16/18 08:35 Apixaban (Eliquis) 2.5 mg BID GT 01/08/18 09:00 02/06/18 08:59 01/16/18 17:59 Aspirin (ASA) 81 mg DAILY NG 01/09/18 09:00 02/08/18 08:59 01/16/18 08:35 Chlorhexidine Gluconate (Jossy-Hex 2%) 1 applic DAILY@2000 TOPIC 01/13/18 20:00 02/12/18 19:59 01/15/18 20:37 Clonidine HCl (Catapres Tab) 0.1 mg Q4H PRN ORAL sbp more than 160 01/07/18 21:00 02/06/18 20:59 Dextrose (Dextrose 50%) 25 ml STAT PRN IV Hypoglycemia 01/07/18 21:00 02/06/18 20:59 Dextrose (Dextrose 50%) 50 ml STAT PRN IV Hypoglycemia 01/07/18 21:00 02/06/18 20:59 Epoetin Wallace (Procrit (for non ESRD use)) 10,000 units SAT-SAT-SAT SUBQ 01/08/18 21:00 02/07/18 20:59 01/15/18 21:01 Insulin Aspart (NovoLOG) Please send pen with patient... BEFORE MEALS AND HS SUBQ 01/07/18 21:00 02/06/18 00:26 01/16/18 16:41 Insulin Detemir (Levemir) 20 units BID SUBQ 01/14/18 09:00 02/06/18 08:59 01/16/18 18:06 Lansoprazole (Prevacid) 30 mg Q12HR GT 01/10/18 21:00 02/09/18 20:59 01/16/18 08:35 Levetiracetam (Keppra) 750 mg Q12HR GT 01/07/18 21:00 02/06/18 00:25 01/16/18 08:35 Metoclopramide HCl (Reglan) 5 mg EVERY 6 HOURS NG 01/15/18 18:00 02/13/18 17:59 01/16/18 17:58 Metoclopramide HCl (Reglan) 10 mg Q6H PRN IVP vomiting 01/14/18 17:15 02/09/18 21:59 Nitroglycerin (Ntg) 1 patch Q24H TDERMAL 01/08/18 14:00 02/06/18 13:59 01/16/18 14:18 Polyethylene Glycol (Miralax) 17 gm HSPRN PRN ORAL Constipation 01/07/18 21:00 02/06/18 20:59 Vancomycin HCl (Vanco rx to dose) 1 ea DAILY PRN MISC Per rx protocol 01/08/18 09:00 02/06/18 02:14 Vancomycin HCl 500 mg/Dextrose 110 ml @ 110 mls/hr Q24H IVPB 01/15/18 10:00 01/20/18 09:59 01/16/18 10:15 Item Value Date Time Bedside Blood Glucose 130 mg/dl H 01/16/18 1806 Bedside Blood Glucose 144 mg/dl H 01/16/18 1147 Bedside Blood Glucose 139 mg/dl H 01/16/18 0845 Bedside Blood Glucose 139 mg/dl H 01/16/18 0630 Bedside Blood Glucose 137 mg/dl H 01/15/18 2100 Kodak Villeda MD Jan 16, 2018 19:12
[2018-01-16 20:00] VITALS: BP 150/83
[2018-01-16] MEDS: Dyna-Hex 2% Top Sol 2oz TOPIC SCH (20:08)
--- NOTE | 2018-01-17 14:26 | Discharge Summary ---
Discharge Summary Discharge Summary _ DATE OF ADMISSION: 01/06/2018 DATE OF DISCHARGE: 01/16/2018 CONSULTANTS: Dr. Taco Villeda BRIEF HOSPITAL COURSE: Patient's an 82-year-old female, who is a resident of [facility]. 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 At the alf was reported to have blood sugar over 400. Patient summoned to ER. On evaluation, she was found to have acute renal failure, with creatinine elevated to 4.6 , evidence of sepsis, anemia, uncontrolled diabetes and electrolyte imbalance. She was continued on alf medications. Eliquis was continued. She was placed on seizure precautions and was continued on Keppra. ID was consulted. Patient has history of UTI with MDR including Proteus. He was started on ertapenem. Blood glucose was elevated. Sales Host was consulted. Patient had diabetes mellitus out of control without any evidence of ketoacidosis. Starlix was discontinued. He was given NovoLog and Levemir. She came in with stage III sacral decubitus ulcer and status post left AKA. Surgery was consulted. She was placed on support overlay mattress She was provided with wound care. No acute surgical intervention was necessary. Patient was febrile and had cough. Consideration for aspiration pneumonia. Blood culture with growth of coagulase-negative staph in one bottle. He was given vancomycin empirically. Wound culture with Proteus and staph. Repeat blood culture was ordered. Sputum culture showed growth of Pseudomonas and MDR Escherichia coli resistant to meropenem. Antibiotic was then switched to amikacin. She had an episode drop in hemoglobin to 6.3. She was given blood transfusion. Posttransfusion, hemoglobin levels were stable. G-tube was malfunctioning. GI was consulted. G-tube was changed to GT Indonesian 20 at bedside and feeding was eventually restarted. Renal function improved. Renal function needs to be closely monitored while on antibiotics. PICC line was inserted. Patient was discharged to alf to continue antibiotic treatment. FINAL DIAGNOSES: Sepsis with bacteremia Acute kidney failure with acute tubular necrosis Aspiration pneumonia Dysphagia on G-tube Dehydration Diabetes mellitus out of control Dementia Urinary tract infection with history of MDR organism Acute anemia requiring blood transfusion Peripheral vascular disease with left AKA Seizure disorder Functional quadriplegia Hypernatremia Malfunctioning G-tube status post replacement Sacral decubitus ulcer stage III present on admission DISPOSITION: Patient was discharged to [facility]. DISCHARGE MEDICATIONS: Refer to Discharge Medication List. I have been assigned to dictate discharge summary on this account, and I was not involved in the patient's management. Alyce Keane NP Jan 17, 2018 14:26
[2018-01-18] MEDS ORDERED: Amikacin 400 MG in NS 110 ML IV SCH (06:00)
== END 2018-01-16 23:30 | DRG 871 ==
LOC: EDBD 19:32 → EDSEX 19:32 → EMR 20:09 → EDBEDREQ 21:28 → EDBEDREQTM 21:28 → EDBEDREQSVC 21:28 → 2E 21:47 → EDBEDREQ 22:19 → 4E 01-07 21:17
PROC: 0D20XUZ Change Feeding Device in Upper Intestinal Tract, External Approach (ICD-10-PCS; principal; 2018-01-09)
PROC: 06HM33Z Insertion of Infusion Device into Right Femoral Vein, Percutaneous Approach (ICD-10-PCS; 2018-01-12)
PROC: B518ZZA Fluoroscopy of Superior Vena Cava, Guidance (ICD-10-PCS; 2018-01-14)
PROC: 02HV33Z Insertion of Infusion Device into Superior Vena Cava, Percutaneous Approach (ICD-10-PCS; 2018-01-14)
DX: A41.9 Sepsis, unspecified organism (principal); L89.153 Pressure ulcer of sacral region, stage 3; R53.2 Functional quadriplegia; J69.0 Pneumonitis due to inhalation of food and vomit; N17.0 Acute kidney failure with tubular necrosis; N39.0 Urinary tract infection, site not specified; K94.23 Gastrostomy malfunction; R40.3 Persistent vegetative state; E87.0 Hyperosmolality and hypernatremia; E11.65 Type 2 diabetes mellitus with hyperglycemia; E86.0 Dehydration; D64.9 Anemia, unspecified; Z89.612 Acquired absence of left leg above knee; F03.90 Unspecified dementia, unspecified severity, without behavioral disturbance, psychotic disturbance, mood disturbance, and anxiety; Z86.73 Personal history of transient ischemic attack (TIA), and cerebral infarction without residual deficits; Z74.01 Bed confinement status; I12.9 Hypertensive chronic kidney disease with stage 1 through stage 4 chronic kidney disease, or unspecified chronic kidney disease; E11.22 Type 2 diabetes mellitus with diabetic chronic kidney disease; N18.9 Chronic kidney disease, unspecified; R13.10 Dysphagia, unspecified
CPT/HCPCS: 36415; 36569; 71045; 76937; 80048; 80053; 80061; 80150; 80202; 81003; 82009; 82607; 82728; 82746; 82962; 82977; 83036; 83540; 83550; 83605; 83735; 83880; 84100; 84443; 84484; 84550; 85007; 85025; 85651; 86140; 86850; 86870; 86900; 86901; 86904; 86920; 87040; 87070; 87086; 87181; 87205; 87324; 90732; 93005; 94664; 94760; 96360; 99285; J1815; J2405; J2765; S5561

== ENCOUNTER 2018-02-22 13:39 | Emergency (ER) | payer MEDICARE, MEDICAID ==
[~2018-02-22] VITALS: Ht 160 cm; Wt 59.0 kg
[~2018-02-22 13:39] MED LIST changes: +ASPIRIN81 MG NG; +Amikacin Rx to dose MISC; +LANSOPRAZOLE30 MG GT; +LEVEMIR FL100 UNIT/1 SUBQ; +NTG1 PATCH TDERMAL; +PRO-STAT LIQUID30 ML GT
[2018-02-22] MEDS ORDERED: Sodium Chloride 500ML 500 ML IV ONE (13:48)
[2018-02-22 13:51] VITALS: BP 125/42
[2018-02-22] MEDS ORDERED: levETIRAcetam 1,000mg/NS100ml 100 ML IVPB ONE (14:00)
[2018-02-22 14:05] LABS: BASOPHILS % (AUTO) 1.1 % (0.0-2.0); HEMATOCRIT 34.1 % (37.0-47.0); HEMOGLOBIN 10.9 G/DL (12.0-16.0); LYMPHOCYTES % (AUTO) 42.2 % (20.0-45.0); MEAN CORPUSCULAR VOLUME 98 FL (80-99); MONOCYTES % (AUTO) 8.5 % (1.0-10.0); NEUTROPHILS % (AUTO) 44.2 % (45.0-75.0); PLATELET COUNT 169 K/UL (150-450); RED BLOOD COUNT 3.48 M/UL (4.20-5.40); RED CELL DISTRIBUTION WIDTH 15.6 % (11.6-14.8); WHITE BLOOD COUNT 7.1 K/UL (4.8-10.8)
[2018-02-22 14:16] LABS: ANION GAP 11 mmol/L (5-15); BLOOD UREA NITROGEN 62 mg/dL (7-18); CALCIUM 9.8 MG/DL (8.5-10.1); CARBON DIOXIDE 26 MMOL/L (21-32); CHLORIDE 111 MMOL/L (98-107); CREATININE 1.7 MG/DL (0.55-1.30); SODIUM 148 MMOL/L (136-145)
[2018-02-22 14:30] LABS: ALANINE AMINOTRANSFERASE 17 U/L (12-78); ALBUMIN 3.5 G/DL (3.4-5.0); ALBUMIN/GLOBULIN RATIO 0.5 (1.0-2.7); ALKALINE PHOSPHATASE 129 U/L (46-116); ASPARTATE AMINO TRANSFERASE 37 U/L (15-37); BILIRUBIN,TOTAL 0.3 MG/DL (0.2-1.0); CKMB < 0.5 NG/ML (0.0-3.6); CREATINE KINASE 134 U/L (26-308)
[2018-02-22 14:56] LABS: APPEARANCE,URINE CLEAR; BILIRUBIN, URINE NEGATIVE (NEGATIVE); GLUCOSE, URINE (UA) NEGATIVE (NEGATIVE); KETONES,URINE NEGATIVE (NEGATIVE); LEUKOCYTE ESTERASE ,URINE 1+ (NEGATIVE); NITRITE,URINE NEGATIVE (NEGATIVE); PH,URINE 7 (4.5-8.0); UROBILINOGEN,URINE NORMAL MG/DL (0.0-1.0)
[2018-02-22 15:01] LABS: PROTEIN,URINE 3+ (NEGATIVE)
[2018-02-22 15:02] LABS: COLOR,URINE YELLOW
--- NOTE | 2018-02-22 15:55 | Diagnostic Imaging Report ---
EXAM: XR Chest, 1 View CLINICAL HISTORY: CP TECHNIQUE: Frontal view of the chest. COMPARISON: No relevant prior studies available. FINDINGS: Lungs: Minimal basilar atelectasis.. Pleural space: Unremarkable. No pneumothorax. Heart: Unremarkable. No cardiomegaly. Mediastinum: Tortuous and calcified thoracic aorta. Bones/joints: Unremarkable. IMPRESSION: No evidence of acute pulmonary disease
--- NOTE | 2018-02-22 16:11 | Diagnostic Imaging Report ---
EXAM: CT Head Without Intravenous Contrast CLINICAL HISTORY: SZ TECHNIQUE: Axial computed tomography images of the head/brain without intravenous contrast. One or more of the following dose reduction techniques were used: automated exposure control, adjustment of the mA and/or kV according to patient size, use of iterative reconstruction technique. CT DI: 70.38 DLP: 1351 COMPARISON: Findings: Marked ventriculomegaly. This is not clearly attributable to atrophy. Correlate for symptoms of normal pressure hydrocephalus. There is a chronic left MCA territory infarct. No definite acute large vessel territorial infarction. No intracranial hemorrhage or mass effect. The calvarium is intact. There is a right mastoid and middle ear effusion suggesting otomastoiditis. Completely opacified right maxillary sinus. IMPRESSION: Ventriculomegaly is not clearly attributable to atrophy. Consider normal pressure hydrocephalus.. Chronic left MCA territory infarct. Right otomastoiditis. Completely opacified right maxillary sinus.
--- NOTE | 2018-02-22 16:56 | Emergency Room Report ---
History of Present Illness General Chief Complaint: Seizure Source: EMS Present Illness HPI 82-year-old female presents ED status post seizure. Witnessed seizure at her assisted today. No head trauma. No incontinence. Patient is nonverbal at baseline. History of seizures and takes breath. Afebrile. No other aggravating relieving factors. No other associated symptoms Allergies: Coded Allergies: No Known Allergies (Verified , 01/27/10) Patient History Past Medical History: DM, COPD, dementia, seizures Past Surgical History: none Pertinent Family History: none Social History: Denies: smoking, alcohol use, drug use Now: No Immunizations: UTD Reviewed Nursing Documentation: PMH: Agreed; PSxH: Agreed Nursing Documentation-PMH Past Medical History: No History, Except For Hx Cardiac Problems: Yes - Sepsis, DVT Hx Hypertension: Yes Hx Pacemaker: No Hx Asthma: No Hx COPD: Yes - PNA Hx Diabetes: Yes - DM2 Hx Cancer: No Hx Gastrointestinal Problems: No - Gtube Hx Dialysis: No 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 Hx Dementia: Yes Hx Seizures: Yes - Epilepsy Hx Speech Problem: Yes - Non-verbal Hx Dysphasia: Yes - G-tube Review of Systems All Other Systems: limited Physical Exam Vital Signs Date Time Temp Pulse Resp B/P (MAP) Pulse Ox O2 Delivery O2 Flow Rate FiO2 02/22/18 13:42 97.6 81 18 122/55 94 Room Air 97.5 Sp02 EP Interpretation: reviewed, normal General Appearance: other - nonverbal Head: normocephalic Eyes: bilateral eye normal inspection, bilateral eye PERRL ENT: normal ENT inspection Neck: normal inspection Respiratory: chest non-tender, lungs clear, normal breath sounds, speaking full sentences Cardiovascular #1: regular rate, rhythm, no edema Gastrointestinal: normal bowel sounds, non tender, soft, non-distended, no guarding, no rebound Rectal: deferred Genitourinary: no CVA tenderness Musculoskeletal: normal inspection Neurologic: other - nonverbal Psychiatric: other - nonverbal Skin: normal inspection Lymphatic: normal inspection Medical Decision Making Diagnostic Impression: Primary Impression: Seizure disorder Additional Impression: CKD (chronic kidney disease) Qualified Codes: N18.9 - Chronic kidney disease, unspecified ER Course Hospital Course 82-year-old F presents to ED status post seizure. h/o seizures Differential diagnosis includes- breakthrough seizure, alcohol abuse, noncompliance with medication Clinical course Patient placed on stretcher. Initial history and physical I ordered labs, IV fluids, Keppra, CT brain Labs-Na 148, BUN/Cr 62/1.7, no leukocytosis, hemoglobin/hematocrit stable. UA negative EKG - NSR, no acute ischemic changes interpreted by wa CXR - no acute process CT head - old ischemic changes, no acute process Patient given loading dose of Keppra in ED. Discussed findings with Dr. Roberto; patient has CKD and sodium is chronically elevated. He agrees that patient has no emergent indication for admission. Patient is safe for discharge back to SNF. he will adjust her keppra dosage Diagnosis - seizure disorder, CKD stable and discharged to SNF. Followup with PMD. Return to ED if symptoms recur or worsen Labs Test 02/22/18 13:54 02/22/18 14:00 02/22/18 15:00 White Blood Count 7.1 K/UL (4.8-10.8) Red Blood Count 3.48 M/UL (4.20-5.40) Hemoglobin 10.9 G/DL (12.0-16.0) Hematocrit 34.1 % (37.0-47.0) Mean Corpuscular Volume 98 FL (80-99) Mean Corpuscular Hemoglobin 31.3 PG (27.0-31.0) Mean Corpuscular Hemoglobin Concent 32.0 G/DL (32.0-36.0) Red Cell Distribution Width 15.6 % (11.6-14.8) Platelet Count 169 K/UL (150-450) Mean Platelet Volume 9.5 FL (6.5-10.1) Neutrophils (%) (Auto) 44.2 % (45.0-75.0) Lymphocytes (%) (Auto) 42.2 % (20.0-45.0) Monocytes (%) (Auto) 8.5 % (1.0-10.0) Eosinophils (%) (Auto) 4.0 % (0.0-3.0) Basophils (%) (Auto) 1.1 % (0.0-2.0) Sodium Level 148 MMOL/L (136-145) Potassium Level 5.0 MMOL/L (3.5-5.1) Chloride Level 111 MMOL/L (98-107) Carbon Dioxide Level 26 MMOL/L (21-32) Anion Gap 11 mmol/L (5-15) Blood Urea Nitrogen 62 mg/dL (7-18) Creatinine 1.7 MG/DL (0.55-1.30) Estimat Glomerular Filtration Rate mL/min (>60) Glucose Level 118 MG/DL (74-106) Calcium Level 9.8 MG/DL (8.5-10.1) Total Bilirubin 0.3 MG/DL (0.2-1.0) Aspartate Amino Transf (AST/SGOT) 37 U/L (15-37) Alanine Aminotransferase (ALT/SGPT) 17 U/L (12-78) Alkaline Phosphatase 129 U/L (46-116) Total Creatine Kinase 134 U/L (26-308) Creatine Kinase MB < 0.5 NG/ML (0.0-3.6) Creatine Kinase MB Relative Index 0.3 Troponin I 0.004 ng/mL (0.000-0.056) Total Protein 10.0 G/DL (6.4-8.2) Albumin 3.5 G/DL (3.4-5.0) Globulin 6.5 g/dL Albumin/Globulin Ratio 0.5 (1.0-2.7) Urine Color Yellow Urine Appearance Clear Urine pH 7 (4.5-8.0) Urine Specific [place] 1.005 (1.005-1.035) Urine Protein 3+ (NEGATIVE) Urine Glucose (UA) Negative (NEGATIVE) Urine Ketones Negative (NEGATIVE) Urine Blood Negative (NEGATIVE) Urine Nitrite Negative (NEGATIVE) Urine Bilirubin Negative (NEGATIVE) Urine Urobilinogen Normal MG/DL (0.0-1.0) Urine Leukocyte Esterase 1+ (NEGATIVE) Urine RBC 0 /HPF (0 - 2) Urine WBC 0-2 /HPF (0 - 2) Urine Squamous Epithelial Cells Occasional /LPF Urine Bacteria None /HPF (NONE) Prothrombin Time 11.0 SEC (9.30-11.50) Prothromb Time International Ratio 1.0 (0.9-1.1) Activated Partial Thromboplast Time 25 SEC (23-33) EKG Diagnostic Results Rate: normal Rhythm: NSR ST Segments: no acute changes ASA given to the pt in ED: No Rhythm Strip Diag. Results EP Interpretation: yes Rhythm: NSR, no PVC's, no ectopy Chest X-Ray Diagnostic Results Chest X-Ray Diagnostic Results : Chest X-Ray Ordered: Yes # of Views/Limited/Complete: 1 View Indication: Other - seizure EP Interpretation: Yes Interpretation: no consolidation, no effusion, no pneumothorax, no acute cardiopulmonary disease Impression: No acute disease Electronically Signed by: Electronically signed by Mario Alberto Delvalle MD CT/MRI/US Diagnostic Results CT/MRI/US Diagnostic Results : Imaging Test Ordered: CT Head Impression old MCA infarct. no acute process Last Vital Signs Date Time Temp Pulse Resp B/P (MAP) Pulse Ox O2 Delivery O2 Flow Rate FiO2 02/22/18 14:01 84 15 Room Air 02/22/18 13:51 98.0 125/42 100 98.0 Status: improved Disposition: XFER SNF Condition: Stable Referrals: Estevan Orozco MD (PCP) Mario Alberto Delvalle MD Feb 22, 2018 16:56
[2018-02-22 19:43] VITALS: BP 158/84
[2018-02-22 21:00] VITALS: BP 133/80
== END 2018-02-22 21:00 ==
LOC: EDBD 13:39 → EMR 14:13
DX: G40.89 Other seizures (principal); I12.9 Hypertensive chronic kidney disease with stage 1 through stage 4 chronic kidney disease, or unspecified chronic kidney disease; E11.22 Type 2 diabetes mellitus with diabetic chronic kidney disease; N18.9 Chronic kidney disease, unspecified; F03.90 Unspecified dementia, unspecified severity, without behavioral disturbance, psychotic disturbance, mood disturbance, and anxiety; J44.9 Chronic obstructive pulmonary disease, unspecified; I25.2 Old myocardial infarction; Z86.718 Personal history of other venous thrombosis and embolism
CPT/HCPCS: 36415; 70450; 71045; 80053; 81003; 82550; 82553; 84484; 85025; 85610; 85730; 93005; 96374; 99285; J1953

== ENCOUNTER 2018-03-05 19:58 | Emergency (ER) | payer MEDICARE, MEDICAID ==
[~2018-03-05] VITALS: Ht 154.9 cm; Wt 65.8 kg
[2018-03-05 20:08] VITALS: BP 165/75
[2018-03-05] MEDS ORDERED: VITAMIN C500 M1 GT (20:08)
[2018-03-05] MEDS ORDERED: ASPIR 8181 MG GT (20:08)
[2018-03-05] MEDS ORDERED: PRO-STAT LIQUID30 ML GT (20:08)
--- NOTE | 2018-03-05 20:08 | Emergency Room Report ---
History of Present Illness General Chief Complaint: Seizure Source: Medical Record, EMS (Deng Galeas MD) Present Illness HPI The patient presents after having a witnessed 5 minute tonic-clonic seizure. The patient has a history of seizures and is on Keppra at this time. She's also on anticoagulation and has a history of diabetes. The anticoagulant is Eliquis. She has a h/o DVT. No further history is available from the patient. H/O CVA with R hemiparesis Dementia Chronic renal insufficiency Fed via G tube (Deng Galeas MD) Allergies: Coded Allergies: No Known Allergies (Verified , 01/27/10) Patient History Limited by: medical condition Past Medical History: see triage record, old chart reviewed Past Surgical History: other - G tube Social History Narrative SNF Reviewed Nursing Documentation: PMH: Agreed; PSxH: Agreed (Deng Galeas MD) Nursing Documentation-PMH Past Medical History: No History, Except For Hx Cardiac Problems: No - Sepsis, DVT Hx Hypertension: Yes Hx Pacemaker: No Hx Asthma: No Hx COPD: Yes - PNA Hx Diabetes: Yes - DM2 Hx Cancer: No Hx Gastrointestinal Problems: No - Gtube Hx Dialysis: No 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 Hx Dementia: Yes Hx Seizures: Yes - Epilepsy Hx Speech Problem: Yes - Non-verbal Hx Dysphasia: Yes - G-tube (Deng Galeas MD) Review of Systems All Other Systems: limited (Deng Galeas MD) Physical Exam Vital Signs Date Time Temp Pulse Resp B/P (MAP) Pulse Ox O2 Delivery O2 Flow Rate FiO2 03/05/18 20:00 98.8 75 16 165/75 94 Room Air Sp02 EP Interpretation: reviewed, normal - slightly low General Appearance: no apparent distress, Chronically Ill Eyes: bilateral eye normal inspection, bilateral eye PERRL ENT: dry mucus membranes Neck: supple Respiratory: lungs clear, normal breath sounds Cardiovascular #1: regular rate, rhythm, edema - min bilat, worse R Cardiovascular #2: 2+ radial (L) Gastrointestinal: normal inspection, non tender, soft, other - G tube, decreased bowel sounds Genitourinary: no CVA tenderness Musculoskeletal: other - contractures LE Neurologic: other - eyes open randomly, not respond to verbal stimuli, flaccid R, occasional movement L Psychiatric: other - eyes open, but not respond to pain Skin: normal color, other - stage 3 sacral decubitus (Deng Galeas MD) Medical Decision Making Diagnostic Impression: Primary Impression: Seizure Additional Impressions: CKD (chronic kidney disease) Qualified Codes: N18.3 - Chronic kidney disease, stage 3 (moderate) UTI (urinary tract infection) Qualified Codes: N30.00 - Acute cystitis without hematuria Sacral decubitus ulcer, stage III Right hemiparesis Functional quadriplegia ER Course Patient presents with seizure. DDx: breakthrough seizure, electrolyte imbalance , brain bleed, occult infection amongst others. Evaluation with CT head, CXR, EKG and labs. Treatment with dose of Keppra and Ativan. Looks somewhat dry and will give IV hydration. Concern for bleed as on Eliquis. EKG without injury. CXR no infiltrates. CT with chronic changes - L parietal prior CVA. Labs with normal CBC with mild anemia, renal insufficiency ( somewhat better than in past). Discussed with Dr. Orozco. He states that he wants another 500 of Keppra given IV and to check the urine. If the urine is clear this in her back and he will increase in amount of Keppra she's given by a G-tube. UA pending. Signed out to Dr. Foreman. Laboratory Tests Test 03/05/18 21:05 03/05/18 22:40 White Blood Count 9.5 K/UL (4.8-10.8) Red Blood Count 3.04 M/UL (4.20-5.40) L Hemoglobin 10.0 G/DL (12.0-16.0) L Hematocrit 29.8 % (37.0-47.0) L Mean Corpuscular Volume 98 FL (80-99) Mean Corpuscular Hemoglobin 32.8 PG (27.0-31.0) H Mean Corpuscular Hemoglobin Concent 33.4 G/DL (32.0-36.0) Red Cell Distribution Width 14.5 % (11.6-14.8) Platelet Count 155 K/UL (150-450) Mean Platelet Volume 8.8 FL (6.5-10.1) Neutrophils (%) (Auto) 54.2 % (45.0-75.0) Lymphocytes (%) (Auto) 34.7 % (20.0-45.0) Monocytes (%) (Auto) 6.5 % (1.0-10.0) Eosinophils (%) (Auto) 3.7 % (0.0-3.0) H Basophils (%) (Auto) 1.0 % (0.0-2.0) Sodium Level 142 MMOL/L (136-145) Potassium Level 4.0 MMOL/L (3.5-5.1) Chloride Level 106 MMOL/L (98-107) Carbon Dioxide Level 27 MMOL/L (21-32) Anion Gap 10 mmol/L (5-15) Blood Urea Nitrogen 59 mg/dL (7-18) H Creatinine 1.8 MG/DL (0.55-1.30) H Estimate Glomerular Filtration Rate mL/min (>60) Glucose Level 81 MG/DL (74-106) Calcium Level 9.5 MG/DL (8.5-10.1) Total Bilirubin 0.3 MG/DL (0.2-1.0) Aspartate Amino Transferase (AST) 20 U/L (15-37) Alanine Aminotransferase (ALT) 18 U/L (12-78) Alkaline Phosphatase 134 U/L (46-116) H Total Creatine Kinase 105 U/L (26-308) Troponin I 0.008 ng/mL (0.000-0.056) Total Protein 10.0 G/DL (6.4-8.2) H Albumin 3.8 G/DL (3.4-5.0) Globulin 6.2 g/dL Albumin/Globulin Ratio 0.6 (1.0-2.7) L Urine Color Pale yellow Urine Appearance Slightly cloudy Urine pH 6.5 (4.5-8.0) Urine Specific [place] 1.010 (1.005-1.035) Urine Protein 3+ (NEGATIVE) H Urine Glucose (UA) Negative (NEGATIVE) Urine Ketones Negative (NEGATIVE) Urine Blood 3+ (NEGATIVE) H Urine Nitrite Negative (NEGATIVE) Urine Bilirubin Negative (NEGATIVE) Urine Urobilinogen Normal MG/DL (0.0-1.0) Urine Leukocyte Esterase 3+ (NEGATIVE) H Urine RBC 5-10 /HPF (0 - 2) H Urine WBC 30-40 /HPF (0 - 2) H Urine Squamous Epithelial Cells Occasional /LPF Urine Bacteria Few /HPF (NONE) (Deng Galeas MD) ER Course Patient signout to me pending urinalysis and spoke. Urinalysis positive for UTI. She grew out Escherichia coli and pseudomonas in the past. Put on Bactrim and Cipro. We'll discharge back to halfway. (Paulie Foreman MD) EKG Diagnostic Results Rate: normal Rhythm: NSR ST Segments: no acute changes (Deng Galeas MD) Rhythm Strip Diag. 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 (Deng Galeas MD) Last Vital Signs Date Time Temp Pulse Resp B/P (MAP) Pulse Ox O2 Delivery O2 Flow Rate FiO2 03/05/18 20:00 98.8 75 16 165/75 94 Room Air Status: improved (Deng Galeas MD) Disposition: XFER SNF Condition: Improved Scripts Ciprofloxacin Hcl* (CIPROFLOXACIN HCL*) 500 Mg Tablet 500 MG ORAL Q12H, #14 TAB 0 Refills Prov: Paulie Foreman MD 03/05/18 Trimethoprim/Sulfamethoxazole 160/800* (BACTRIM DS TABLET*) 1 Each Tablet 1 TAB ORAL Q12H, #14 TAB 0 Refills Prov: Paulie Foreman MD 03/05/18 Patient Instructions: Seizure, Adult Deng Galeas MD Mar 05, 2018 20:08 Paulie Foreman MD Mar 05, 2018 23:18
[2018-03-05] MEDS ORDERED: LORazepam Inj 2mg/ml 1ml IV ONE (20:15)
[2018-03-05] MEDS ORDERED: levETIRAcetam 500 MG in D5W 110 ML IV ONE (20:15)
[2018-03-05 21:30] LABS: EOSINOPHILS % (AUTO) 3.7 % (0.0-3.0); HEMATOCRIT 29.8 % (37.0-47.0); LYMPHOCYTES % (AUTO) 34.7 % (20.0-45.0); MEAN CORPUSCULAR VOLUME 98 FL (80-99); MONOCYTES % (AUTO) 6.5 % (1.0-10.0); NEUTROPHILS % (AUTO) 54.2 % (45.0-75.0); PLATELET COUNT 155 K/UL (150-450); RED BLOOD COUNT 3.04 M/UL (4.20-5.40); RED CELL DISTRIBUTION WIDTH 14.5 % (11.6-14.8); WHITE BLOOD COUNT 9.5 K/UL (4.8-10.8)
[2018-03-05 21:42] LABS: ANION GAP 10 mmol/L (5-15); BLOOD UREA NITROGEN 59 mg/dL (7-18); CALCIUM 9.5 MG/DL (8.5-10.1); CARBON DIOXIDE 27 MMOL/L (21-32); CHLORIDE 106 MMOL/L (98-107); CREATININE 1.8 MG/DL (0.55-1.30); SODIUM 142 MMOL/L (136-145)
[2018-03-05 21:47] LABS: ALANINE AMINOTRANSFERASE 18 U/L (12-78); ALBUMIN 3.8 G/DL (3.4-5.0); ALBUMIN/GLOBULIN RATIO 0.6 (1.0-2.7); ALKALINE PHOSPHATASE 134 U/L (46-116); ASPARTATE AMINO TRANSFERASE 20 U/L (15-37); BILIRUBIN,TOTAL 0.3 MG/DL (0.2-1.0); CREATINE KINASE 105 U/L (26-308)
[2018-03-05] MEDS ORDERED: levETIRAcetam 500mg/NS100ml 100 ML IVPB ONE (22:00)
[2018-03-05 22:52] LABS: APPEARANCE,URINE SLIGHTLY CLOUDY; BILIRUBIN, URINE NEGATIVE (NEGATIVE); COLOR,URINE PALE YELLOW; GLUCOSE, URINE (UA) NEGATIVE (NEGATIVE); KETONES,URINE NEGATIVE (NEGATIVE); LEUKOCYTE ESTERASE ,URINE 3+ (NEGATIVE); NITRITE,URINE NEGATIVE (NEGATIVE); PH,URINE 6.5 (4.5-8.0); PROTEIN,URINE 3+ (NEGATIVE); UROBILINOGEN,URINE NORMAL MG/DL (0.0-1.0)
[2018-03-05] MEDS ORDERED: Piperacillin/Tazobactam 3.375 GM in NS 110 ML IVPB ONE (23:15)
[2018-03-05] MEDS ORDERED: CIPROFLOXACIN500 M2 ORAL (23:21)
[2018-03-05] MEDS ORDERED: BACTRIM DS TAB1 EAC1 ORAL (23:21)
[2018-03-06 03:45] VITALS: BP 126/68
--- NOTE | 2018-03-06 09:09 | Diagnostic Imaging Report ---
Indications: Patient presents after having a witnessed 5 minute tonic-clonic seizure Technique: Spiral acquisitions obtained through the brain. Angled axial and coronal 5 x 5 mm slices were reconstructed. Total dose length product 1435.31 mGycm. CTDI vol(s) 70.38 mGy. Dose reduction achieved using automated exposure control Comparison: 02/22/2018 Findings: Again demonstrated is marked ventriculomegaly. There is also extensive enlargement of the extra-axial CSF spaces. Encephalomalacia of the left parietal and temporal lobes again demonstrated. Extensive deep white matter low-attenuation is again demonstrated No acute intracranial hemorrhage or edema. No mass effect nor midline shift. Visualized orbits are unremarkable. There is complete opacification of the visualized portion of the right maxillary sinus again demonstrated. There is stable right mastoid opacification and chronic appearing sclerosis. Impression: Negative for acute intracranial bleed or mass effect Marked ventriculomegaly, stable since 02/22/2018, probably on the basis of chronic central volume loss but possibility of normal pressure hydrocephalus should also be considered Stable left temporoparietal encephalomalacia, consistent with old middle cerebral artery distribution infarct Stable right maxillary sinus and right mastoid disease The CT scanner at [facility] is accredited by the [place] [employer] [employer] and the scans are performed using protocols designed to limit radiation exposure to as low as reasonably achievable to attain images of sufficient resolution adequate for diagnostic evaluation.
--- NOTE | 2018-03-06 09:10 | Diagnostic Imaging Report ---
Indication: Chest pain Technique: One view of the chest Comparison: 02/22/2018 Findings: Patient chin obscures the upper mediastinum and medial lung apices. Lungs and pleural spaces are clear. The heart size is normal. The aorta is tortuous ectatic and calcified. There is no significant interim change Impression: No acute process
== END 2018-03-06 00:14 ==
LOC: EDBD 19:58 → EMR 21:02
DX: G40.409 Other generalized epilepsy and epileptic syndromes, not intractable, without status epilepticus (principal); I12.9 Hypertensive chronic kidney disease with stage 1 through stage 4 chronic kidney disease, or unspecified chronic kidney disease; E11.22 Type 2 diabetes mellitus with diabetic chronic kidney disease; N18.3 Chronic kidney disease, stage 3 (moderate); N39.0 Urinary tract infection, site not specified; L89.153 Pressure ulcer of sacral region, stage 3; I69.351 Hemiplegia and hemiparesis following cerebral infarction affecting right dominant side; J44.9 Chronic obstructive pulmonary disease, unspecified; G82.50 Quadriplegia, unspecified; Z93.1 Gastrostomy status; Z79.01 Long term (current) use of anticoagulants; F03.90 Unspecified dementia, unspecified severity, without behavioral disturbance, psychotic disturbance, mood disturbance, and anxiety
CPT/HCPCS: 36415; 70450; 71045; 80053; 81003; 82550; 82962; 84484; 85025; 87086; 93005; 96361; 96365; 96375; 99284; J1953; J2543

== ENCOUNTER 2018-03-09 14:42 | Inpatient (IN) | payer MEDICARE, MEDICAID ==
[~2018-03-09] VITALS: Ht 167.6 cm; Wt 75.3 kg
[~2018-03-09 14:42] MED LIST changes: +ASPIR 8181 MG GT; +BACTRIM DS TAB1 EAC1 ORAL; +CIPROFLOXACIN500 M2 ORAL
[2018-03-09] MEDS ORDERED: Pantoprazole Inj IV ONE (14:45)
[2018-03-09] MEDS ORDERED: Pantoprazole Inj ONE (15:19)
[2018-03-09 15:29] LABS: BASOPHILS % (AUTO) 0.6 % (0.0-2.0); EOSINOPHILS % (AUTO) 1.8 % (0.0-3.0); HEMATOCRIT 29.8 % (37.0-47.0); LYMPHOCYTES % (AUTO) 25.9 % (20.0-45.0); MEAN CORPUSCULAR VOLUME 100 FL (80-99); MONOCYTES % (AUTO) 5.6 % (1.0-10.0); NEUTROPHILS % (AUTO) 66.1 % (45.0-75.0); PLATELET COUNT 162 K/UL (150-450); RED BLOOD COUNT 2.98 M/UL (4.20-5.40); RED CELL DISTRIBUTION WIDTH 14.4 % (11.6-14.8); WHITE BLOOD COUNT 10.3 K/UL (4.8-10.8)
[2018-03-09 15:38] LABS: INR 1.1 (0.9-1.1)
[2018-03-09 15:46] LABS: ALANINE AMINOTRANSFERASE 22 U/L (12-78); ALBUMIN 3.8 G/DL (3.4-5.0); ALBUMIN/GLOBULIN RATIO 0.6 (1.0-2.7); ALKALINE PHOSPHATASE 120 U/L (46-116); ANION GAP 7 mmol/L (5-15); ASPARTATE AMINO TRANSFERASE 32 U/L (15-37); BILIRUBIN,TOTAL 0.3 MG/DL (0.2-1.0); BLOOD UREA NITROGEN 55 mg/dL (7-18); CALCIUM 9.3 MG/DL (8.5-10.1); CARBON DIOXIDE 25 MMOL/L (21-32); CHLORIDE 108 MMOL/L (98-107); CREATININE 2.3 MG/DL (0.55-1.30); POTASSIUM 5.9 MMOL/L (3.5-5.1); SODIUM 141 MMOL/L (136-145)
[2018-03-09 15:56] VITALS: BP 114/72
[2018-03-09 16:02] LABS: APPEARANCE,URINE CLEAR; BILIRUBIN, URINE NEGATIVE (NEGATIVE); COLOR,URINE YELLOW; GLUCOSE, URINE (UA) NEGATIVE (NEGATIVE); KETONES,URINE NEGATIVE (NEGATIVE); LEUKOCYTE ESTERASE ,URINE 1+ (NEGATIVE); NITRITE,URINE NEGATIVE (NEGATIVE); PH,URINE 6.5 (4.5-8.0); PROTEIN,URINE 3+ (NEGATIVE); UROBILINOGEN,URINE NORMAL MG/DL (0.0-1.0)
[2018-03-09] MEDS ORDERED: Sodium Polystyrene Sulfonate 15gm Powder GT ONE (17:00)
[2018-03-09] MEDS ORDERED: ASPIRIN81 MG ORAL (17:04)
[2018-03-09] MEDS ORDERED: Sodium Polystyrene Sulfonate 15gm Powder ONE (17:06)
[2018-03-09] MEDS ORDERED: Metoclopramide 10mg/2ml Inj IVP ONE (17:15)
[2018-03-09] MEDS ORDERED: levETIRAcetam 1,000mg/NS100ml 100 ML IVPB ONE (17:15)
[2018-03-09 17:39] VITALS: BP 104/88
[2018-03-09] MEDS ORDERED: Acetaminophen 650mg/20.3ml GT PRN (17:45)
[2018-03-09] MEDS ORDERED: Hydromorphone 0.5mg/0.5ml inj IVP ONE (17:45)
--- NOTE | 2018-03-09 17:50 | History & Physical ---
History and Physical History & Physicial Renal failureAcute- HyperKalemia coffee ground emesis Sz activity GT malfunction Anemia functional Quadriplegia DM Dementia NPO- Hydrate- Monitor renal parameters IV protonix- Keppra avoid nephrotoxics pending cultures bs and bp check EEG per orders [id number] Estevan Orozco MD Mar 09, 2018 17:50
[2018-03-09] MEDS ORDERED: LORazepam Inj 2mg/ml 1ml IV PRN (18:00)
[2018-03-09] MEDS ORDERED: Hydromorphone 0.5mg/0.5ml inj IVP PRN (18:00)
[2018-03-09 18:20] VITALS: BP 113/79
--- NOTE | 2018-03-09 19:22 | Emergency Room Report ---
History of Present Illness General Chief Complaint: Gastrointestinal Bleed Source: EMS Present Illness HPI Patient is an 82-year-old female brought in by EMS after increased coffee- ground emesis. Patient prior history of G-tube. She was noted to have increased the emesis today. Patient had prior history of seizure disorder as well as G-tube dependence. The patient had been had noted to be afebrile. Patient was the recently treated for urinary tract infection. 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 Hx Dementia: Yes Hx Seizures: Yes - Epilepsy Hx Speech Problem: Yes - Non-verbal Hx Dysphasia: Yes - G-tube Review of Systems All Other Systems: limited - by mental status Physical Exam Vital Signs Date Time Temp Pulse Resp B/P (MAP) Pulse Ox O2 Delivery O2 Flow Rate FiO2 03/09/18 14:43 97.5 88 22 144/72 94 Nasal Cannula 2.0 General Appearance: obese, Chronically Ill ENT: dry mucus membranes Neck: limited range of motion Respiratory: normal breath sounds, no respiratory distress Gastrointestinal: normal bowel sounds, non tender, no mass Musculoskeletal: other - left leg aka Neurologic: normal inspection, alert Psychiatric: other - flat affect Skin: normal inspection Medical Decision Making Diagnostic Impression: Primary Impression: UTI (urinary tract infection) Additional Impressions: GI bleed Anemia Hyperkalemia, diminished renal excretion ER Course Patient presented for hematemesis. Differential diagnosis included was not limited to gastritis, bowel obstruction, coagulopathy, gastroparesis among others.Because of complexity of patient's case laboratory testing and imaging studies were ordered. The patient was noted to have evidence of mild hyperkalemia. Patient is given IV acid blockers as well as antiemetics. CT the abdomen pelvis showed no evidence of acute obstruction. The patient was noted to have had prior history of seizure disorder and was given IV Keppra. Dr. Estevan Arriola contacted for inpatient management Labs Test 03/09/18 15:12 03/09/18 15:39 White Blood Count 10.3 K/UL (4.8-10.8) Red Blood Count 2.98 M/UL (4.20-5.40) Hemoglobin 10.0 G/DL (12.0-16.0) Hematocrit 29.8 % (37.0-47.0) Mean Corpuscular Volume 100 FL (80-99) Mean Corpuscular Hemoglobin 33.5 PG (27.0-31.0) Mean Corpuscular Hemoglobin Concent 33.6 G/DL (32.0-36.0) Red Cell Distribution Width 14.4 % (11.6-14.8) Platelet Count 162 K/UL (150-450) Mean Platelet Volume 8.4 FL (6.5-10.1) Neutrophils (%) (Auto) 66.1 % (45.0-75.0) Lymphocytes (%) (Auto) 25.9 % (20.0-45.0) Monocytes (%) (Auto) 5.6 % (1.0-10.0) Eosinophils (%) (Auto) 1.8 % (0.0-3.0) Basophils (%) (Auto) 0.6 % (0.0-2.0) Prothrombin Time 11.1 SEC (9.30-11.50) Prothromb Time International Ratio 1.1 (0.9-1.1) Activated Partial Thromboplast Time 24 SEC (23-33) Sodium Level 141 MMOL/L (136-145) Potassium Level 5.9 MMOL/L (3.5-5.1) Chloride Level 108 MMOL/L (98-107) Carbon Dioxide Level 25 MMOL/L (21-32) Anion Gap 7 mmol/L (5-15) Blood Urea Nitrogen 55 mg/dL (7-18) Creatinine 2.3 MG/DL (0.55-1.30) Estimat Glomerular Filtration Rate mL/min (>60) Glucose Level 103 MG/DL (74-106) Lactic Acid Level 1.40 mmol/L (0.4-2.0) Calcium Level 9.3 MG/DL (8.5-10.1) Total Bilirubin 0.3 MG/DL (0.2-1.0) Aspartate Amino Transf (AST/SGOT) 32 U/L (15-37) Alanine Aminotransferase (ALT/SGPT) 22 U/L (12-78) Alkaline Phosphatase 120 U/L (46-116) Troponin I 0.007 ng/mL (0.000-0.056) C-Reactive Protein, Quantitative 1.0 mg/dL (0.00-0.90) Total Protein 10.6 G/DL (6.4-8.2) Albumin 3.8 G/DL (3.4-5.0) Globulin 6.8 g/dL Albumin/Globulin Ratio 0.6 (1.0-2.7) Lipase 261 U/L (73-393) Urine Color Yellow Urine Appearance Clear Urine pH 6.5 (4.5-8.0) Urine Specific [place] 1.010 (1.005-1.035) Urine Protein 3+ (NEGATIVE) Urine Glucose (UA) Negative (NEGATIVE) Urine Ketones Negative (NEGATIVE) Urine Blood Negative (NEGATIVE) Urine Nitrite Negative (NEGATIVE) Urine Bilirubin Negative (NEGATIVE) Urine Urobilinogen Normal MG/DL (0.0-1.0) Urine Leukocyte Esterase 1+ (NEGATIVE) Urine RBC 0-2 /HPF (0 - 2) Urine WBC 5-10 /HPF (0 - 2) Urine Squamous Epithelial Cells Few /LPF (NONE/OCC) Urine Bacteria Few /HPF (NONE) Last Vital Signs Date Time Temp Pulse Resp B/P (MAP) Pulse Ox O2 Delivery O2 Flow Rate FiO2 03/09/18 18:27 98.5 85 16 114/86 96 Nasal Cannula 2.0 Status: improved Disposition: ADMITTED INPATIENT Condition: Serious Referrals: Estevan Orozco MD (PCP) Srini Davis MD Mar 09, 2018 19:22
[2018-03-09] MEDS: D5 1/2NS 1,000 ML IV SCH (19:56)
[2018-03-09 20:00] VITALS: BP 150/73
[2018-03-09] MEDS: Pantoprazole Inj IVP SCH (20:40)
[2018-03-09] MEDS: Heparin 5000 units/ml inj SUBQ SCH (20:41)
[2018-03-09] MEDS ORDERED: traMADol 50mg tab GT SCH (22:00)
[2018-03-09] MEDS: traMADol 50mg tab GT SCH (23:37)
[2018-03-10] VITALS: BP 135/81
[2018-03-10 04:00] VITALS: BP 120/67
[2018-03-10] MEDS: levETIRAcetam 1,500 MG in D5W 95 ML IV SCH ×2 (05:14→17:20)
[2018-03-10] MEDS: traMADol 50mg tab GT SCH ×3 (05:41→17:21)
[2018-03-10 05:56] LABS: BASOPHILS % (AUTO) 0.4 % (0.0-2.0); EOSINOPHILS % (AUTO) 1.5 % (0.0-3.0); HEMATOCRIT 25.6 % (37.0-47.0); HEMOGLOBIN 8.7 G/DL (12.0-16.0); LYMPHOCYTES % (AUTO) 24.2 % (20.0-45.0); MEAN CORPUSCULAR VOLUME 100 FL (80-99); MONOCYTES % (AUTO) 5.9 % (1.0-10.0); PLATELET COUNT 134 K/UL (150-450); RED BLOOD COUNT 2.56 M/UL (4.20-5.40); RED CELL DISTRIBUTION WIDTH 14.7 % (11.6-14.8); WHITE BLOOD COUNT 11.7 K/UL (4.8-10.8)
--- NOTE | 2018-03-10 06:00 | History and Physical Report ---
DATE OF ADMISSION: 03/09/2018 HISTORY OF PRESENT ILLNESS: The patient is an 82-year-old female, who is a [place] resident. She was last discharged on January 16, 2018 and she had two emergency room visits for seizures on February 22 and March 05. Today, the patient vomited coffee-ground vomitus and was sent to emergency room. After initial evaluation, is being admitted for further evaluations. 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 MEDICATION: List is on the record. PHYSICAL EXAMINATION: VITAL SIGNS: Seen in emergency room today. The blood pressure is 114/72, pulse rate 88, he is on O2 with nasal cannula and is afebrile. GENERAL: He is elderly, demented, nonverbal, rigid neck to all directions, and has some tremors, which to me appears to be more parkinsonian. HEENT: Head is normocephalic. Sclerae, not icteric. Keep the mouth closed. LUNGS: Poor inspiratory effort. Decreased breath sounds over the bases. HEART: Mainly irregular, slightly tachycardic. ABDOMEN: Soft. GT tube in place. EXTREMITIES: Lower extremities, left above-knee amputation and the right leg, no edema. LABORATORY DATA: Hemoglobin 10 and white BCs 10.3. Potassium 5.9 and creatinine 2.3. Total protein 10.6. Urine has 1+ leukocyte esterase and 10 white bcs. PT and PTT within normal limits. IMPRESSION: This 82-year-old presents with coffee-ground emesis and tremors, which is not clear whether it is seizure or a parkinsonian tremor. The patient on the CT scan appears to have a gastrostomy tube, which may be somewhat blocked. The patient also has anemia, functional quadriplegia, diabetes mellitus, and dementia. PLAN: NPO, hydrate, monitor renal parameters, IV Protonix, , avoid nephrotoxic, pending cultures, will hold antibiotics, will do blood sugar and blood pressure check, we will obtain an EEG and also we will get proper consultants as needed. According to how the patient's condition evolves, we will make the proper changes in our future management. Estevan Elias Orozco DR: VARUN JOB#: [id number] CC:
[2018-03-10 06:44] LABS: ALANINE AMINOTRANSFERASE 21 U/L (12-78); ALBUMIN 3.4 G/DL (3.4-5.0); ALBUMIN/GLOBULIN RATIO 0.5 (1.0-2.7); ALKALINE PHOSPHATASE 114 U/L (46-116); ANION GAP 6 mmol/L (5-15); ASPARTATE AMINO TRANSFERASE 21 U/L (15-37); BILIRUBIN,TOTAL 0.3 MG/DL (0.2-1.0); BLOOD UREA NITROGEN 55 mg/dL (7-18); CALCIUM 8.8 MG/DL (8.5-10.1); CARBON DIOXIDE 26 MMOL/L (21-32); CHLORIDE 109 MMOL/L (98-107); CHOLESTEROL 144 MG/DL (< 200); CREATINE KINASE 107 U/L (26-308); CREATININE 2.7 MG/DL (0.55-1.30); GAMMA GLUTAMYL TRANSPEPTIDASE 30 U/L (5-85); HDL CHOLESTEROL 35 MG/DL (40-60); PHOSPHORUS 4.5 MG/DL (2.5-4.9); POTASSIUM 4.7 MMOL/L (3.5-5.1); SODIUM 141 MMOL/L (136-145); TRIGLYCERIDES 119 MG/DL (30-150)
[2018-03-10 07:17] LABS: FERRITIN 704 NG/ML (8-388)
[2018-03-10 08:00] VITALS: BP 102/52
[2018-03-10] MEDS: Heparin 5000 units/ml inj SUBQ SCH ×2 (08:01→20:34)
[2018-03-10] MEDS: Aspirin Baby 81mg GT SCH ×3 (08:12→09:00)
[2018-03-10] MEDS: Pantoprazole Inj IVP SCH ×2 (08:13→20:37)
[2018-03-10] MEDS: D5 1/2NS 1,000 ML IV SCH ×2 (08:15→20:37)
[2018-03-10 08:42] LABS: % IRON SATURATION 12 % (15-50); IRON 33 ug/dL (50-175); TOTAL IRON BINDING CAPACITY 273 ug/dL (250-450)
--- NOTE | 2018-03-10 09:00 | Diagnostic Imaging Report ---
Indication: Abdominal pain Technique: Continuous helical transaxial imaging of the abdomen and pelvis was obtained from the lung bases to the pubic symphysis. No intravenous contrast was administered. Coronal 2-D reformats were also obtained. Automatic Exposure Control was utilized. Total Dose length Product (DLP): 1322.[address] Dose Index Volume (CTDIvol): 26.2 mGy Comparison: none Findings: Mild reticulation at the lung bases demonstrated likely scarring. Moderate aortoiliac calcifications are present. Gastrostomy is noted in good position. Gallbladder is distended. Nonspecific hypodensities in the liver demonstrated. There are artifacts limiting evaluation. IVC filter noted. Extensive diverticulosis of colon demonstrated without definite evidence of diverticulitis. Appendix not definitely seen. No secondary signs of acute appendicitis appreciated. Small inguinal nodes and retroperitoneal nodes demonstrated, nonspecific in nature. Generalized osteopenia is present. IMPRESSION: No acute findings appreciated. Extensive diverticulosis of the colon. No definite diverticulitis. IVC filter Basilar scarring Gastrostomy Other findings as above. [facility] has communicated the preliminary results to the Emergency Department. Their findings are largely concordant with this report. The CT scanner at [facility] is accredited by the [employer] and the scans are performed using dose optimization techniques as appropriate to a performed exam including Automatic Exposure control.
--- NOTE | 2018-03-10 09:25 | General Progress Note ---
Assessment/Plan Problem List: (1) Acute renal failure ICD Codes: N17.9 - Acute kidney failure, unspecified SNOMED: 32671245 (2) CKD (chronic kidney disease) ICD Codes: N18.9 - Chronic kidney disease, unspecified SNOMED: 740476696 (3) Dehydration ICD Codes: E86.0 - Dehydration SNOMED: 40085939 (4) GI bleed ICD Codes: K92.2 - Gastrointestinal hemorrhage, unspecified SNOMED: 92640581 (5) Anemia ICD Codes: D64.9 - Anemia, unspecified SNOMED: 448030030 (6) Seizure disorder ICD Codes: G40.909 - Epilepsy, unspecified, not intractable, without status epilepticus SNOMED: 124972098 (7) Diabetes ICD Codes: E11.9 - Type 2 diabetes mellitus without complications SNOMED: 34172720 Status: unchanged Status Narrative Renal failureAcute- HyperKalemia coffee ground emesis Sz activity GT malfunction Anemia functional Quadriplegia DM Dementia Assessment/Plan NPO- Hydrate- benadryl Monitor renal parameters IV protonix- Keppra avoid nephrotoxics pending cultures bs and bp check EEG per orders Subjective ROS Limited/Unobtainable: No Constitutional: Reports: malaise, weakness Allergies: Coded Allergies: METOCLOPRAMIDE (Verified Allergy, Unknown, 03/10/18) extrapyramidal Sx Objective Last 24 Hour Vital Signs Date Time Temp Pulse Resp B/P (MAP) Pulse Ox O2 Delivery O2 Flow Rate FiO2 03/10/18 04:23 73 03/10/18 04:00 97.3 82 18 120/67 (84) 100 03/10/18 00:07 67 03/10/18 00:00 98.9 82 20 135/81 (99) 99 03/09/18 21:41 Nasal Cannula 2.0 03/09/18 20:00 99.3 92 18 150/73 (98) 100 03/09/18 18:27 98.5 85 16 114/86 96 Nasal Cannula 2.0 03/09/18 18:20 99.1 94 18 113/79 (90) 98 03/09/18 17:39 98.0 93 18 104/88 97 Nasal Cannula 2.0 03/09/18 15:56 88 22 Nasal Cannula 2.0 03/09/18 15:56 98.2 74 20 114/72 96 Nasal Cannula 2.0 03/09/18 14:43 97.5 88 22 144/72 94 Nasal Cannula 2.0 Intake and Output 03/09/18 03/10/18 19:00 07:00 Intake Total 1190 ml Output Total 500 ml Balance 690 ml Intake IV Total 1190 ml Output Urine Total 500 ml # Voids 1 # Bowel Movements 1 Laboratory Tests 03/09/18 15:12: White Blood Count 10.3, Red Blood Count 2.98L, Hemoglobin 10.0L, Hematocrit 29.8L, Mean Corpuscular Volume 100H, Mean Corpuscular Hemoglobin 33.5H, Mean Corpuscular Hemoglobin Concent 33.6, Red Cell Distribution Width 14.4, Platelet Count 162, Mean Platelet Volume 8.4, Neutrophils (%) (Auto) 66.1, Lymphocytes (% ) (Auto) 25.9, Monocytes (%) (Auto) 5.6, Eosinophils (%) (Auto) 1.8, Basophils ( %) (Auto) 0.6, Prothrombin Time 11.1, Prothromb Time International Ratio 1.1, Activated Partial Thromboplast Time 24, Sodium Level 141, Potassium Level 5.9H, Chloride Level 108H, Carbon Dioxide Level 25, Anion Gap 7, Blood Urea Nitrogen 55H, Creatinine 2.3H, Estimat Glomerular Filtration Rate , Glucose Level 103, Lactic Acid Level 1.40, Calcium Level 9.3, Total Bilirubin 0.3, Aspartate Amino Transf (AST/SGOT) 32, Alanine Aminotransferase (ALT/SGPT) 22, Alkaline Phosphatase 120H, Troponin I 0.007, C-Reactive Protein, Quantitative 1.0H, Total Protein 10.6H, Albumin 3.8, Globulin 6.8, Albumin/Globulin Ratio 0.6L, Lipase 261 03/09/18 15:39: Urine Color Yellow, Urine Appearance Clear, Urine pH 6.5, Urine Specific [place] 1.010, Urine Protein 3+H, Urine Glucose (UA) Negative, Urine Ketones Negative, Urine Blood Negative, Urine Nitrite Negative, Urine Bilirubin Negative , Urine Urobilinogen Normal, Urine Leukocyte Esterase 1+H, Urine RBC 0-2, Urine WBC 5-10H, Urine Squamous Epithelial Cells Few, Urine Bacteria Few 03/10/18 05:15: White Blood Count 11.7H, Red Blood Count 2.56L, Hemoglobin 8.7L, Hematocrit 25.6L, Mean Corpuscular Volume 100H, Mean Corpuscular Hemoglobin 34.0H, Mean Corpuscular Hemoglobin Concent 34.0, Red Cell Distribution Width 14.7, Platelet Count 134L, Mean Platelet Volume 10.0, Neutrophils (%) (Auto) 68.0, Lymphocytes (%) (Auto) 24.2, Monocytes (%) (Auto) 5.9, Eosinophils (%) (Auto) 1.5, Basophils (%) (Auto) 0.4, Sodium Level 141, Potassium Level 4.7, Chloride Level 109H, Carbon Dioxide Level 26, Anion Gap 6, Blood Urea Nitrogen 55H, Creatinine 2.7H, Estimat Glomerular Filtration Rate , Glucose Level 169H, Calcium Level 8.8 , Total Bilirubin 0.3, Aspartate Amino Transf (AST/SGOT) 21, Alanine Aminotransferase (ALT/SGPT) 21, Alkaline Phosphatase 114, Troponin I 0.008, Total Protein 9.7H, Albumin 3.4, Globulin 6.3, Albumin/Globulin Ratio 0.5L, Lipase 268, Hemoglobin A1c 5.2, Uric Acid 6.1, Phosphorus Level 4.5, Magnesium Level 2.6H, Iron Level 33L, Total Iron Binding Capacity 273, Percent Iron Saturation 12L, Unsaturated Iron Binding 240, Ferritin 704H, Gamma Glutamyl Transpeptidase 30, Total Creatine Kinase 107, Pro-B-Type Natriuretic Peptide 468H, Triglycerides Level 119, Cholesterol Level 144, LDL Cholesterol 86, HDL Cholesterol 35L, Cholesterol/HDL Ratio 4.1, Vitamin B12 Level 639, Folate 15.7, Thyroid Stimulating Hormone (TSH) 0.832 Height (Feet): 5 Height (Inches): 6.00 Weight (Pounds): 150 General Appearance: no apparent distress Neck: limited range of motion Cardiovascular: other - variable Respiratory/Chest: decreased breath sounds Abdomen: soft Objective no change Estevan Orozco MD Mar 10, 2018 09:25
[2018-03-10] MEDS ORDERED: DiphenhydrAMINE 50mg/ml Inj IVP SCH (09:30)
[2018-03-10] MEDS ORDERED: DiphenhydrAMINE 50mg/ml Inj IVP PRN (09:30)
[2018-03-10] MEDS ORDERED: Iron Sucrose 200 MG in NS 110 ML IV ONE (11:00)
--- NOTE | 2018-03-10 11:35 | Diagnostic Imaging Report ---
Indication: Cough Comparison: 03/05/2018 A single view chest radiograph was obtained. Findings: No definite infiltrate or pulmonary vascular congestion identified. The heart is enlarged. The aorta is mildly enlarged consistent with atherosclerotic vascular disease. The bones are osteopenic. Impression: No acute disease
[2018-03-10 12:00] VITALS: BP 141/74
--- NOTE | 2018-03-10 13:17 | Consultation ---
History of Present Illness General Date patient seen: Mar 10, 2018 Chief Complaint: Gastrointestinal Bleed Present Illness HPI 82-year-old female with CVA, dementia, bed bound, DM, feeding by gtube, vegetative state, seizure disorder renal insufficiency, Full code, sent in by her nursing facility because of upper GI bleeding. History is markedly limited by patient's mental status. Pt was found to be in renal failure as well. Allergies: Coded Allergies: METOCLOPRAMIDE (Verified Allergy, Unknown, 03/10/18) extrapyramidal Sx Medication History Scheduled Amino Acids/Protein Hydrolys (Pro-Stat Liquid), 30 ML GT TWICE A DAY, (Reported) Amino Acids/Protein Hydrolys (Pro-Stat Liquid), 30 ML GT DAILY, (Reported) Amlodipine Besylate (Norvasc), 5 MG GT Q12HR Amlodipine Besylate (Norvasc), 5 MG GT DAILY Ampicillin Trihydrate (Ampicillin Trihydrate), 500 MG GT EVERY 6 HOURS Apixaban (Eliquis), 2.5 MG GT BID Ascorbic Acid* (Vitamin C*), 500 MG GT DAILY, (Reported) Ascorbic Acid* (Vitamin C*), 500 MG GT DAILY, (Reported) Aspirin* (Aspirin*), 81 MG NG DAILY Aspirin* (Aspir 81*), 81 MG GT DAILY, (Reported) Aspirin* (Aspirin*), 81 MG ORAL DAILY, (Reported) Ciprofloxacin Hcl* (Ciprofloxacin Hcl*), 500 MG ORAL Q12H Cranberry Fruit (Cranberry), 450 MG GT DAILY, (Reported) Ertapenem (Invanz), 1 GM IM DAILY Famotidine (Famotidine), 20 MG GT BID Insulin Aspart (Novolog Flexpen), 0 UNITS SUBQ EVERY 6 HOURS Insulin Aspart* (Novolog*), 0 SUBQ Q6HR, (Reported) Insulin Detemir (Levemir Flexpen), 20 UNITS SUBQ BID Lansoprazole* (Lansoprazole*), 30 MG GT EVERY 12 HOURS, (Reported) Levetiracetam (Keppra), 750 MG GT Q12HR Metoclopramide HCl (Metoclopramide HCl), 5 MG GT Q6HR Multivitamin Liquid* (Multi-Delyn*), 5 ML GT DAILY, (Reported) Nateglinide (Starlix), 120 MG ORAL Q8HR Nitroglycerin (Nitroglycerin Patch), 1 PATCH TDERMAL Q24H Tramadol Hcl* (Ultram*), 50 MG GT Q8HR, (Reported) Trimethoprim/Sulfamethoxazole 160/800* (Bactrim Ds Tablet*), 1 TAB ORAL Q12H Zinc Sulfate (Zinc Sulfate*), 220 MG GT DAILY, (Reported) Scheduled PRN Acetaminophen (Mapap), 650 MG GT Q4HR PRN for Mild Pain/Temp > 100.5, (Reported) Acetaminophen* (Acetaminophen 325MG Tablet*), 650 MG GT Q4H PRN for T>101, ( Reported) Albuterol Sulfate* (Albuterol Sulfate Hhn*), 2.5 MG HHN Q4H PRN Na Phos,M-B/Na Phos,Di-Ba* (Fleet Enema*), 133 ML RECTAL EVERY OTHER DAY PRN for Constipation, (Reported) Polyethylene Glycol 3350* (Miralax*), 17 GM GT DAILY PRN for Constipation, ( Reported) [Amikacin Rx to dose], 1 EA MISC DAILY PRN [Vanco pharmacy to dose], 1 EA MISC DAILY PRN Patient History Healthcare decision maker Resuscitation status Full Code Advanced Directive on File Past Medical/Surgical History Past Medical/Surgical History: (1) Functional quadriplegia (2) Absence seizure (3) Epileptic seizure, generalized (4) DVT (deep vein thrombosis) in (5) Dementia (6) Diabetes Review of Systems Constitutional: Reports: no symptoms Eye: Reports: no symptoms All Other Systems: negative except mentioned in HPI Physical Exam General Appearance: WD/WN Lines, tubes and drains: peripheral, central line, gtube HEENT: normocephalic, atraumatic Neck: non-tender, normal alignment Respiratory/Chest: chest wall non-tender, normal breath sounds Breasts: no masses Cardiovascular/Chest: normal rate, no JVD Genitourinary/Rectal: normal genital exam Last 24 Hour Vital Signs Date Time Temp Pulse Resp B/P (MAP) Pulse Ox O2 Delivery O2 Flow Rate FiO2 03/10/18 12:13 98.2 03/10/18 12:00 98.2 69 18 141/74 (96) 98 03/10/18 09:00 Nasal Cannula 2.0 03/10/18 08:00 61 03/10/18 08:00 97.9 102 18 102/52 (69) 96 03/10/18 04:23 73 03/10/18 04:00 97.3 82 18 120/67 (84) 100 03/10/18 00:07 67 03/10/18 00:00 98.9 82 20 135/81 (99) 99 03/09/18 21:41 Nasal Cannula 2.0 03/09/18 20:00 99.3 92 18 150/73 (98) 100 03/09/18 18:27 98.5 85 16 114/86 96 Nasal Cannula 2.0 03/09/18 18:20 99.1 94 18 113/79 (90) 98 03/09/18 17:39 98.0 93 18 104/88 97 Nasal Cannula 2.0 03/09/18 15:56 88 22 Nasal Cannula 2.0 03/09/18 15:56 98.2 74 20 114/72 96 Nasal Cannula 2.0 03/09/18 14:43 97.5 88 22 144/72 94 Nasal Cannula 2.0 Intake and Output 03/09/18 03/10/18 18:59 06:59 Intake Total 1190 ml Output Total 500 ml Balance 690 ml Intake IV Total 1190 ml Output Urine Total 500 ml # Voids 1 # Bowel Movements 1 Laboratory Tests Test 03/09/18 15:12 03/09/18 15:39 03/10/18 05:15 White Blood Count 10.3 K/UL (4.8-10.8) 11.7 K/UL (4.8-10.8) H Red Blood Count 2.98 M/UL (4.20-5.40) L 2.56 M/UL (4.20-5.40) L Hemoglobin 10.0 G/DL (12.0-16.0) L 8.7 G/DL (12.0-16.0) L Hematocrit 29.8 % (37.0-47.0) L 25.6 % (37.0-47.0) L Mean Corpuscular Volume 100 FL (80-99) H 100 FL (80-99) H Mean Corpuscular Hemoglobin 33.5 PG (27.0-31.0) H 34.0 PG (27.0-31.0) H Mean Corpuscular Hemoglobin Concent 33.6 G/DL (32.0-36.0) 34.0 G/DL (32.0-36.0) Red Cell Distribution Width 14.4 % (11.6-14.8) 14.7 % (11.6-14.8) Platelet Count 162 K/UL (150-450) 134 K/UL (150-450) L Mean Platelet Volume 8.4 FL (6.5-10.1) 10.0 FL (6.5-10.1) Neutrophils (%) (Auto) 66.1 % (45.0-75.0) 68.0 % (45.0-75.0) Lymphocytes (%) (Auto) 25.9 % (20.0-45.0) 24.2 % (20.0-45.0) Monocytes (%) (Auto) 5.6 % (1.0-10.0) 5.9 % (1.0-10.0) Eosinophils (%) (Auto) 1.8 % (0.0-3.0) 1.5 % (0.0-3.0) Basophils (%) (Auto) 0.6 % (0.0-2.0) 0.4 % (0.0-2.0) Prothrombin Time 11.1 SEC (9.30-11.50) Prothromb Time International Ratio 1.1 (0.9-1.1) Activated Partial Thromboplast Time 24 SEC (23-33) Sodium Level 141 MMOL/L (136-145) 141 MMOL/L (136-145) Potassium Level 5.9 MMOL/L (3.5-5.1) H 4.7 MMOL/L (3.5-5.1) Chloride Level 108 MMOL/L (98-107) H 109 MMOL/L (98-107) H Carbon Dioxide Level 25 MMOL/L (21-32) 26 MMOL/L (21-32) Anion Gap 7 mmol/L (5-15) 6 mmol/L (5-15) Blood Urea Nitrogen 55 mg/dL (7-18) H 55 mg/dL (7-18) H Creatinine 2.3 MG/DL (0.55-1.30) H 2.7 MG/DL (0.55-1.30) H Estimat Glomerular Filtration Rate mL/min (>60) mL/min (>60) Glucose Level 103 MG/DL (74-106) 169 MG/DL (74-106) H Lactic Acid Level 1.40 mmol/L (0.4-2.0) Calcium Level 9.3 MG/DL (8.5-10.1) 8.8 MG/DL (8.5-10.1) Total Bilirubin 0.3 MG/DL (0.2-1.0) 0.3 MG/DL (0.2-1.0) Aspartate Amino Transf (AST/SGOT) 32 U/L (15-37) 21 U/L (15-37) Alanine Aminotransferase (ALT/SGPT) 22 U/L (12-78) 21 U/L (12-78) Alkaline Phosphatase 120 U/L (46-116) H 114 U/L (46-116) Troponin I 0.007 ng/mL (0.000-0.056) 0.008 ng/mL (0.000-0.056) C-Reactive Protein, Quantitative 1.0 mg/dL (0.00-0.90) H Total Protein 10.6 G/DL (6.4-8.2) H 9.7 G/DL (6.4-8.2) H Albumin 3.8 G/DL (3.4-5.0) 3.4 G/DL (3.4-5.0) Globulin 6.8 g/dL 6.3 g/dL Albumin/Globulin Ratio 0.6 (1.0-2.7) L 0.5 (1.0-2.7) L Lipase 261 U/L (73-393) 268 U/L (73-393) Urine Color Yellow Urine Appearance Clear Urine pH 6.5 (4.5-8.0) Urine Specific [place] 1.010 (1.005-1.035) Urine Protein 3+ (NEGATIVE) H Urine Glucose (UA) Negative (NEGATIVE) Urine Ketones Negative (NEGATIVE) Urine Blood Negative (NEGATIVE) Urine Nitrite Negative (NEGATIVE) Urine Bilirubin Negative (NEGATIVE) Urine Urobilinogen Normal MG/DL (0.0-1.0) Urine Leukocyte Esterase 1+ (NEGATIVE) H Urine RBC 0-2 /HPF (0 - 2) Urine WBC 5-10 /HPF (0 - 2) H Urine Squamous Epithelial Cells Few /LPF (NONE/OCC) Urine Bacteria Few /HPF (NONE) Hemoglobin A1c 5.2 % (4.3-6.0) Uric Acid 6.1 MG/DL (2.6-7.2) Phosphorus Level 4.5 MG/DL (2.5-4.9) Magnesium Level 2.6 MG/DL (1.8-2.4) H Iron Level 33 ug/dL (50-175) L Total Iron Binding Capacity 273 ug/dL (250-450) Percent Iron Saturation 12 % (15-50) L Unsaturated Iron Binding 240 ug/dL (112-346) Ferritin 704 NG/ML (8-388) H Gamma Glutamyl Transpeptidase 30 U/L (5-85) Total Creatine Kinase 107 U/L (26-308) Pro-B-Type Natriuretic Peptide 468 pg/mL (0-125) H Triglycerides Level 119 MG/DL (30-150) Cholesterol Level 144 MG/DL (< 200) LDL Cholesterol 86 mg/dL (<100) HDL Cholesterol 35 MG/DL (40-60) L Cholesterol/HDL Ratio 4.1 (3.3-4.4) Vitamin B12 Level 639 PG/ML (193-986) Folate 15.7 NG/ML (8.6-58.9) Thyroid Stimulating Hormone (TSH) 0.832 uiU/mL (0.358-3.740) Microbiology Date/Time Source Procedure Growth Status 03/09/18 15:39 Rectum VRE Culture Pending Resulted 03/09/18 15:39 Rectum - Preliminary Resulted Height (Feet): 5 Height (Inches): 6.00 Weight (Pounds): 150 Medications Current Medications Medications (Trade) Dose Ordered Sig/Nancy Route PRN Reason Start Time Stop Time Status Last Admin Dose Admin Acetaminophen (Tylenol) 650 mg Q4H PRN GT Mild Pain/Temp > 100.5 03/09/18 17:45 04/08/18 17:44 Aspirin (ASA) 81 mg DAILY GT 03/10/18 09:00 04/09/18 08:59 Dextrose/Sodium Chloride 1,000 ml @ 75 mls/hr [id number] IV 03/09/18 17:43 04/08/18 17:42 03/10/18 08:15 Diphenhydramine HCl (Benadryl) 25 mg Q6H PRN IVP Itching 03/10/18 09:30 04/09/18 09:29 Heparin Sodium (Porcine) (Heparin 5000 units/ml) 5,000 units EVERY 12 HOURS SUBQ 03/09/18 21:00 04/08/18 20:59 03/09/18 20:41 Hydromorphone HCl (Dilaudid) 0.5 mg Q4H PRN IVP For Pain 03/09/18 18:00 03/16/18 17:59 Levetiracetam 1500 mg/Dextrose 110 ml @ 440 mls/hr Q12HR@0500,1700 IV 03/10/18 05:00 04/09/18 04:59 03/10/18 05:14 Lorazepam (Ativan 2mg/ml 1ml) 1 mg Q4H PRN IV For Agitations and tremors 03/09/18 18:00 03/16/18 17:59 Ondansetron HCl (Zofran) 4 mg Q6H PRN IVP Nausea & Vomiting 03/09/18 17:45 04/08/18 17:44 Pantoprazole (Protonix) 40 mg EVERY 12 HOURS IVP 03/09/18 21:00 04/08/18 20:59 03/10/18 08:13 Tramadol HCl (Ultram) 25 mg Q6HR GT 03/10/18 00:00 03/16/18 21:59 03/10/18 11:43 Assessment/Plan Problem List: (1) GI bleed ICD Codes: K92.2 - Gastrointestinal hemorrhage, unspecified SNOMED: 51324071 (2) Malfunction of percutaneous endoscopic gastrostomy (PEG) tube ICD Codes: K94.23 - Gastrostomy malfunction SNOMED: 418228634 (3) Functional quadriplegia ICD Codes: R53.2 - Functional quadriplegia SNOMED: 405087319459040 (4) Seizure disorder ICD Codes: G40.909 - Epilepsy, unspecified, not intractable, without status epilepticus SNOMED: 498365385 (5) Dementia ICD Codes: F03.90 - Dementia SNOMED: 54898806 (6) Diabetes ICD Codes: E11.9 - Type 2 diabetes mellitus without complications SNOMED: 32738867 (7) G tube feedings ICD Codes: Z93.1 - G tube feedings SNOMED: 750435577 (8) Decubital ulcer ICD Codes: L89.90 - Pressure ulcer of unspecified site, unspecified stage SNOMED: 688589154 Assessment/Plan npo iv fluids prbc prn check electrolytes GI evaluation sliding scale dvt prophylaxis respiratory treatment reevaluate code status. Saira Lazcano MD Mar 10, 2018 13:17
[2018-03-10 16:00] VITALS: BP 122/73
[2018-03-10] MEDS: NovoLOG Insulin Flexpen SUBQ SCH (18:00)
[2018-03-10 20:00] VITALS: BP 129/57
[2018-03-11] VITALS: BP 130/47
[2018-03-11] MEDS: NovoLOG Insulin Flexpen SUBQ SCH ×5 (00:14→23:02)
[2018-03-11] MEDS: traMADol 50mg tab GT SCH ×5 (00:15→23:10)
[2018-03-11 04:00] VITALS: BP 149/63
[2018-03-11] MEDS: levETIRAcetam 1,500 MG in D5W 95 ML IV SCH ×2 (04:54→21:23)
[2018-03-11 07:14] LABS: ALANINE AMINOTRANSFERASE 26 U/L (12-78); ALBUMIN 3.4 G/DL (3.4-5.0); ALBUMIN/GLOBULIN RATIO 0.6 (1.0-2.7); ALKALINE PHOSPHATASE 104 U/L (46-116); ANION GAP 10 mmol/L (5-15); ASPARTATE AMINO TRANSFERASE 21 U/L (15-37); BILIRUBIN,TOTAL 0.3 MG/DL (0.2-1.0); BLOOD UREA NITROGEN 37 mg/dL (7-18); CALCIUM 8.6 MG/DL (8.5-10.1); CARBON DIOXIDE 24 MMOL/L (21-32); CHLORIDE 107 MMOL/L (98-107); CREATININE 2.3 MG/DL (0.55-1.30); PHOSPHORUS 3.7 MG/DL (2.5-4.9); POTASSIUM 3.5 MMOL/L (3.5-5.1); SODIUM 141 MMOL/L (136-145)
[2018-03-11 07:20] LABS: HEMATOCRIT 23.6 % (37.0-47.0); HEMOGLOBIN 7.7 G/DL (12.0-16.0); MEAN CORPUSCULAR VOLUME 99 FL (80-99); PLATELET COUNT 137 K/UL (150-450); RED BLOOD COUNT 2.38 M/UL (4.20-5.40); RED CELL DISTRIBUTION WIDTH 14.5 % (11.6-14.8); WHITE BLOOD COUNT 9.4 K/UL (4.8-10.8)
[2018-03-11 07:21] LABS: INR 1.1 (0.9-1.1)
[2018-03-11 08:00] VITALS: BP 134/52
--- NOTE | 2018-03-11 08:25 | Cardiology Report ---
APPROVED REPORT EKG Measurement Heart [id number] Normal sinus rhythm Nonspecific T wave abnormality Abnormal ECG
[2018-03-11] MEDS: Heparin 5000 units/ml inj SUBQ SCH ×2 (09:00→20:04)
--- NOTE | 2018-03-11 09:05 | Pulmonology Progress Note ---
Assessment/Plan Problems: (1) GI bleed (2) Functional quadriplegia (3) Seizure disorder (4) Dementia (5) Diabetes (6) G tube feedings Assessment/Plan npo transfuse prbc today check h/h in morning continue IV fluids GI evaluation dvt prophylaxis Subjective ROS Limited/Unobtainable: Yes Constitutional: Reports: no symptoms HEENT: Repors: no symptoms Respiratory: Reports: no symptoms Allergies: Coded Allergies: METOCLOPRAMIDE (Verified Allergy, Unknown, 03/10/18) extrapyramidal Sx Objective Last 24 Hour Vital Signs Date Time Temp Pulse Resp B/P (MAP) Pulse Ox O2 Delivery O2 Flow Rate FiO2 03/11/18 04:00 98.6 57 20 149/63 (91) 96 03/11/18 03:36 57 03/11/18 00:00 98.2 67 20 130/47 (74) 99 03/10/18 23:24 70 03/10/18 21:00 Nasal Cannula 2.0 03/10/18 20:00 98.4 81 20 129/57 (81) 97 03/10/18 19:38 74 03/10/18 16:00 98.1 83 20 122/73 (89) 100 03/10/18 16:00 77 03/10/18 12:13 98.2 03/10/18 12:00 67 03/10/18 12:00 98.2 69 18 141/74 (96) 98 Intake and Output 03/10/18 03/11/18 19:00 07:00 Intake Total 1811.25 ml 412.5 ml Output Total 800 ml 500 ml Balance 1011.25 ml -87.5 ml Intake IV Total 1811.25 ml 412.5 ml Output Urine Total 800 ml 500 ml # Bowel Movements 1 General Appearance: WD/WN HEENT: normocephalic, atraumatic Respiratory/Chest: chest wall non-tender, lungs clear Breasts: no masses Cardiovascular: normal peripheral pulses, normal rate Abdomen: normal bowel sounds, soft, non tender Genitourinary: normal external genitalia Extremities: no cyanosis Skin: no rash Microbiology Date/Time Source Procedure Growth Status 03/09/18 15:12 Blood Blood Culture - Preliminary NO GROWTH AFTER 24 HOURS Resulted 03/09/18 15:00 Blood Blood Culture - Preliminary NO GROWTH AFTER 24 HOURS Resulted 03/09/18 21:00 Indwelling Cath Urine Culture - Preliminary NO GROWTH Resulted 03/09/18 15:39 Rectum VRE Culture - Final Enterococcus Faecium - Vre Resulted 03/09/18 15:39 Rectum - Preliminary Resulted Laboratory Tests 03/11/18 06:37: White Blood Count 9.4, Red Blood Count 2.38L, Hemoglobin 7.7L, Hematocrit 23.6L , Mean Corpuscular Volume 99, Mean Corpuscular Hemoglobin 32.6H, Mean Corpuscular Hemoglobin Concent 32.8, Red Cell Distribution Width 14.5, Platelet Count 137L, Mean Platelet Volume 8.5, Neutrophils (%) (Auto) , Lymphocytes (%) ( Auto) , Monocytes (%) (Auto) , Eosinophils (%) (Auto) , Basophils (%) (Auto) , Neutrophils % (Manual) [Pending], Lymphocytes % (Manual) [Pending], Platelet Estimate [Pending], Platelet Morphology [Pending], Prothrombin Time 11.2, Prothromb Time International Ratio 1.1, Activated Partial Thromboplast Time 29, Sodium Level 141, Potassium Level 3.5, Chloride Level 107, Carbon Dioxide Level 24, Anion Gap 10, Blood Urea Nitrogen 37H, Creatinine 2.3H, Estimat Glomerular Filtration Rate , Glucose Level 144H, Uric Acid 6.2, Calcium Level 8.6, Phosphorus Level 3.7, Magnesium Level 2.3, Total Bilirubin 0.3, Aspartate Amino Transf (AST/SGOT) 21, Alanine Aminotransferase (ALT/SGPT) 26, Alkaline Phosphatase 104, Total Protein 8.7H, Albumin 3.4, Globulin 5.3, Albumin/ Globulin Ratio 0.6L Current Medications Medications (Trade) Dose Ordered Sig/Nancy Route PRN Reason Start Time Stop Time Status Last Admin Dose Admin Acetaminophen (Tylenol) 650 mg Q4H PRN GT Mild Pain/Temp > 100.5 03/09/18 17:45 04/08/18 17:44 Aspirin (ASA) 81 mg DAILY GT 03/10/18 09:00 04/09/18 08:59 Dextrose (Dextrose 50%) 25 ml Q30M PRN IV Hypoglycemia 03/10/18 15:30 04/09/18 15:29 Dextrose (Dextrose 50%) 50 ml Q30M PRN IV Hypoglycemia 03/10/18 15:30 04/09/18 15:29 Dextrose/Sodium Chloride 1,000 ml @ 75 mls/hr [id number] IV 03/09/18 17:43 04/08/18 17:42 03/10/18 20:37 Diphenhydramine HCl (Benadryl) 25 mg Q6H PRN IVP Itching 03/10/18 09:30 04/09/18 09:29 Heparin Sodium (Porcine) (Heparin 5000 units/ml) 5,000 units EVERY 12 HOURS SUBQ 03/09/18 21:00 04/08/18 20:59 03/09/18 20:41 Hydromorphone HCl (Dilaudid) 0.5 mg Q4H PRN IVP For Pain 03/09/18 18:00 03/16/18 17:59 Insulin Aspart (NovoLOG) EVERY 6 HOURS SUBQ 03/10/18 18:00 04/09/18 17:59 03/11/18 05:22 Levetiracetam 1500 mg/Dextrose 110 ml @ 440 mls/hr Q12HR@0500,1700 IV 03/10/18 05:00 04/09/18 04:59 03/11/18 04:54 Lorazepam (Ativan 2mg/ml 1ml) 1 mg Q4H PRN IV For Agitations and tremors 03/09/18 18:00 03/16/18 17:59 Ondansetron HCl (Zofran) 4 mg Q6H PRN IVP Nausea & Vomiting 03/09/18 17:45 04/08/18 17:44 Pantoprazole (Protonix) 40 mg EVERY 12 HOURS IVP 03/09/18 21:00 04/08/18 20:59 03/10/18 20:37 Tramadol HCl (Ultram) 25 mg Q6HR GT 03/10/18 00:00 03/16/18 21:59 03/11/18 05:18 Saira Lazcano MD Mar 11, 2018 09:05
[2018-03-11] MEDS: Pantoprazole Inj IVP SCH ×2 (09:24→20:04)
[2018-03-11] MEDS: Aspirin Baby 81mg GT SCH (09:24)
[2018-03-11] MEDS: D5 1/2NS 1,000 ML IV SCH ×2 (09:27→10:45)
[2018-03-11] MEDS ORDERED: DiphenhydrAMINE 50mg/ml Inj IVP SCH (10:15)
[2018-03-11 12:00] VITALS: BP 134/57
--- NOTE | 2018-03-11 14:41 | General Progress Note ---
Assessment/Plan Problem List: (1) CKD (chronic kidney disease) ICD Codes: N18.9 - Chronic kidney disease, unspecified SNOMED: 858816711 (2) GI bleed ICD Codes: K92.2 - Gastrointestinal hemorrhage, unspecified SNOMED: 98269470 (3) Anemia ICD Codes: D64.9 - Anemia, unspecified SNOMED: 539200977 (4) Seizure disorder ICD Codes: G40.909 - Epilepsy, unspecified, not intractable, without status epilepticus SNOMED: 365710162 (5) Diabetes ICD Codes: E11.9 - Type 2 diabetes mellitus without complications SNOMED: 85503315 Assessment/Plan start GT feeding- Transfuse one unit- Vanco for +BC Hydrate- benadryl Monitor renal parameters IV protonix- Keppra avoid nephrotoxics pending cultures bs and bp check EEG per orders Subjective ROS Limited/Unobtainable: Yes Allergies: Coded Allergies: METOCLOPRAMIDE (Verified Allergy, Unknown, 03/10/18) extrapyramidal Sx Objective Last 24 Hour Vital Signs Date Time Temp Pulse Resp B/P (MAP) Pulse Ox O2 Delivery O2 Flow Rate FiO2 03/11/18 12:33 98.2 03/11/18 12:00 62 03/11/18 12:00 98.6 73 21 134/57 (82) 100 03/11/18 09:00 Nasal Cannula 2.0 03/11/18 08:00 57 03/11/18 08:00 98.2 76 20 134/52 (79) 99 03/11/18 04:00 98.6 57 20 149/63 (91) 96 03/11/18 03:36 57 03/11/18 00:00 98.2 67 20 130/47 (74) 99 03/10/18 23:24 70 03/10/18 21:00 Nasal Cannula 2.0 03/10/18 20:00 98.4 81 20 129/57 (81) 97 03/10/18 19:38 74 03/10/18 16:00 98.1 83 20 122/73 (89) 100 03/10/18 16:00 77 Intake and Output 03/10/18 03/11/18 19:00 07:00 Intake Total 1811.25 ml 412.5 ml Output Total 800 ml 500 ml Balance 1011.25 ml -87.5 ml IV Total 1811.25 ml 412.5 ml Output Urine Total 800 ml 500 ml # Bowel Movements 1 Laboratory Tests 03/11/18 06:37: White Blood Count 9.4, Red Blood Count 2.38L, Hemoglobin 7.7L, Hematocrit 23.6L , Mean Corpuscular Volume 99, Mean Corpuscular Hemoglobin 32.6H, Mean Corpuscular Hemoglobin Concent 32.8, Red Cell Distribution Width 14.5, Platelet Count 137L, Mean Platelet Volume 8.5, Neutrophils (%) (Auto) , Lymphocytes (%) ( Auto) , Monocytes (%) (Auto) , Eosinophils (%) (Auto) , Basophils (%) (Auto) , Differential Total Cells Counted 100, Neutrophils % (Manual) 65, Lymphocytes % ( Manual) 31, Monocytes % (Manual) 3, Eosinophils % (Manual) 1, Basophils % ( Manual) 0, Band Neutrophils 0, Platelet Estimate DecreasedL, Platelet Morphology Normal, Hypochromasia 3+, Anisocytosis 1+, Prothrombin Time 11.2, Prothromb Time International Ratio 1.1, Activated Partial Thromboplast Time 29, Sodium Level 141, Potassium Level 3.5, Chloride Level 107, Carbon Dioxide Level 24, Anion Gap 10, Blood Urea Nitrogen 37H, Creatinine 2.3H, Estimat Glomerular Filtration Rate , Glucose Level 144H, Uric Acid 6.2, Calcium Level 8.6, Phosphorus Level 3.7, Magnesium Level 2.3, Total Bilirubin 0.3, Aspartate Amino Transf (AST/SGOT) 21, Alanine Aminotransferase (ALT/SGPT) 26, Alkaline Phosphatase 104, Total Protein 8.7H, Albumin 3.4, Globulin 5.3, Albumin/ Globulin Ratio 0.6L Height (Feet): 5 Height (Inches): 6.00 Weight (Pounds): 150 General Appearance: no apparent distress, lethargic Cardiovascular: other - variable Respiratory/Chest: decreased breath sounds Abdomen: soft Objective no change Estevan Orozco MD Mar 11, 2018 14:41
[2018-03-11 16:00] VITALS: BP 127/61
[2018-03-11] MEDS ORDERED: Vancomycin 1.5gm/D5W 250ml 250 ML IVPB ONE (16:00)
[2018-03-11 20:00] VITALS: BP 134/96
[2018-03-12] VITALS: BP 134/65
--- NOTE | 2018-03-12 00:45 | Electroencephalogram ---
DATE OF PROCEDURE: 03/10/2018 REQUESTING PHYSICIAN: Estevan Orozco M.D. READING PHYSICIAN: Luis Fernando Santos M.D. PROCEDURE PERFORMED: Electroencephalogram. HISTORY: This EEG was performed on an 82-year-old lady with a history of multiple medical problems including dementia, cerebrovascular disease, a seizure disorder, quadriplegia, and poor responsiveness. The purpose of this EEG was to evaluate the patient for the degree and type of cerebral dysfunction. TECHNICAL NOTE: This EEG was performed on a [employer] Unit with electrodes placed on the scalp according to the International 10-20 system. [id number] and [id number] montages were used. The EEG was technically satisfactory and was performed while the patient was in a poorly responsive state. Part of the tracing was illegible due to a significant amount of EMG artifact. OBSERVATIONS: In the poorly responsive state, the background activity consisted of 4-5 Hz theta and 2-2.5 Hz delta activity with interspersed triphasic waveforms and a significant variability in the amplitude of the waveforms. Throughout the tracing, a few interspersed C4 sharp discharges were seen. No electrographic or clinical seizures were noted. IMPRESSION: This is an abnormal EEG characterized by: 1. Slowing of the background in the 4-5 Hz theta and 2-2.5 Hz delta range with variable amplitudes of the waveforms. 2. Triphasic waveforms. 3. C4 sharp discharges. COMMENT: This study is consistent with: 1. An encephalopathy of severe degree most probably with metabolic component as evidenced by the triphasic waveforms. 2. A right central epileptogenic focus with only interictal discharges seen on this EEG. Luis Fernando Santos M.D., M.S.P.H. DR: FARHAT JOB#: [id number] [facility]ERYovani
[2018-03-12 04:00] VITALS: BP 143/51
[2018-03-12 05:04] LABS: BASOPHILS % (AUTO) 0.8 % (0.0-2.0); EOSINOPHILS % (AUTO) 2.6 % (0.0-3.0); HEMATOCRIT 28.3 % (37.0-47.0); HEMOGLOBIN 9.9 G/DL (12.0-16.0); LYMPHOCYTES % (AUTO) 26.4 % (20.0-45.0); MEAN CORPUSCULAR VOLUME 95 FL (80-99); MONOCYTES % (AUTO) 6.5 % (1.0-10.0); NEUTROPHILS % (AUTO) 63.6 % (45.0-75.0); PLATELET COUNT 126 K/UL (150-450); RED BLOOD COUNT 2.98 M/UL (4.20-5.40); RED CELL DISTRIBUTION WIDTH 14.6 % (11.6-14.8); WHITE BLOOD COUNT 8.6 K/UL (4.8-10.8)
[2018-03-12] MEDS: levETIRAcetam 1,500 MG in D5W 95 ML IV SCH (05:05)
[2018-03-12 05:20] LABS: ALANINE AMINOTRANSFERASE 23 U/L (12-78); ALBUMIN 3.3 G/DL (3.4-5.0); ALBUMIN/GLOBULIN RATIO 0.6 (1.0-2.7); ALKALINE PHOSPHATASE 92 U/L (46-116); ANION GAP 9 mmol/L (5-15); ASPARTATE AMINO TRANSFERASE 17 U/L (15-37); BILIRUBIN,TOTAL 0.3 MG/DL (0.2-1.0); BLOOD UREA NITROGEN 36 mg/dL (7-18); CALCIUM 8.4 MG/DL (8.5-10.1); CARBON DIOXIDE 24 MMOL/L (21-32); CHLORIDE 107 MMOL/L (98-107); CREATININE 2.1 MG/DL (0.55-1.30); PHOSPHORUS 3.6 MG/DL (2.5-4.9); POTASSIUM 3.5 MMOL/L (3.5-5.1); SODIUM 140 MMOL/L (136-145)
[2018-03-12] MEDS: traMADol 50mg tab GT SCH ×3 (05:33→21:37)
[2018-03-12] MEDS: NovoLOG Insulin Flexpen SUBQ SCH ×3 (06:19→18:14)
[2018-03-12] MEDS: D5 1/2NS 1,000 ML IV SCH (06:46)
[2018-03-12 08:00] VITALS: BP 121/46
[2018-03-12] MEDS: Pantoprazole Inj IVP SCH (08:43)
[2018-03-12] MEDS: Aspirin Baby 81mg GT SCH (08:43)
[2018-03-12] MEDS: Heparin 5000 units/ml inj SUBQ SCH ×2 (08:43→23:13)
[2018-03-12 12:00] VITALS: BP 148/53
--- NOTE | 2018-03-12 12:39 | General Progress Note ---
Assessment/Plan Problem List: (1) Acute on chronic renal failure ICD Codes: N17.9 - Acute kidney failure, unspecified; N18.9 - Chronic kidney disease, unspecified SNOMED: 796363388 (2) GI bleed ICD Codes: K92.2 - Gastrointestinal hemorrhage, unspecified SNOMED: 71573026 (3) Anemia ICD Codes: D64.9 - Anemia, unspecified SNOMED: 939840543 (4) Seizure disorder ICD Codes: G40.909 - Epilepsy, unspecified, not intractable, without status epilepticus SNOMED: 506700015 (5) Diabetes ICD Codes: E11.9 - Type 2 diabetes mellitus without complications SNOMED: 31501607 (6) Extrapyramidal reaction ICD Codes: G25.9 - Extrapyramidal and movement disorder, unspecified SNOMED: 27015316 Status: stable Assessment/Plan start GT feeding- Transfused Vanco for +BC DC Hydrate- benadryl Monitor renal parameters GT oprevacid- Keppra avoid nephrotoxics pending cultures bs and bp check EEG Neg for Sz 1. An encephalopathy of severe degree most probably with metabolic component as evidenced by the triphasic waveforms. 2. Right central epileptogenic focus with only interictal discharges seen on this EEG. per orders med surg Subjective ROS Limited/Unobtainable: No Constitutional: Reports: malaise Allergies: Coded Allergies: METOCLOPRAMIDE (Verified Allergy, Unknown, 03/10/18) extrapyramidal Sx Objective Last 24 Hour Vital Signs Date Time Temp Pulse Resp B/P (MAP) Pulse Ox O2 Delivery O2 Flow Rate FiO2 03/12/18 09:00 Nasal Cannula 2.0 03/12/18 08:00 97.3 68 21 121/46 (71) 97 03/12/18 07:35 55 03/12/18 04:00 72 03/12/18 04:00 98.6 63 18 143/51 (81) 99 03/12/18 00:00 98.2 65 18 134/65 (88) 97 03/12/18 00:00 69 03/11/18 23:40 98.1 03/11/18 20:00 Nasal Cannula 2.0 03/11/18 20:00 59 03/11/18 20:00 98.1 60 17 134/96 (109) 95 03/11/18 17:38 97.7 03/11/18 16:40 72 03/11/18 16:00 97.7 78 21 127/61 (83) 100 Intake and Output 03/11/18 03/12/18 19:00 07:00 Intake Total 465 ml 1750 ml Output Total 250 ml 800 ml Balance 215 ml 950 ml Intake Free Water 100 ml 50 ml IV Total 125 ml 1190 ml Tube Feeding 240 ml 210 ml Blood Product 300 ml Output Urine Total 250 ml 800 ml # Bowel Movements 1 6 Laboratory Tests 03/12/18 04:41: White Blood Count 8.6, Red Blood Count 2.98L, Hemoglobin 9.9L, Hematocrit 28.3L , Mean Corpuscular Volume 95, Mean Corpuscular Hemoglobin 33.2H, Mean Corpuscular Hemoglobin Concent 35.0, Red Cell Distribution Width 14.6, Platelet Count 126L, Mean Platelet Volume 8.3, Neutrophils (%) (Auto) 63.6, Lymphocytes ( %) (Auto) 26.4, Monocytes (%) (Auto) 6.5, Eosinophils (%) (Auto) 2.6, Basophils (%) (Auto) 0.8, Sodium Level 140, Potassium Level 3.5, Chloride Level 107, Carbon Dioxide Level 24, Anion Gap 9, Blood Urea Nitrogen 36H, Creatinine 2.1H, Estimat Glomerular Filtration Rate , Glucose Level 139H, Uric Acid 6.2, Calcium Level 8.4L, Phosphorus Level 3.6, Magnesium Level 2.1, Total Bilirubin 0.3, Aspartate Amino Transf (AST/SGOT) 17, Alanine Aminotransferase (ALT/SGPT) 23, Alkaline Phosphatase 92, C-Reactive Protein, Quantitative 12.9H, Pro-B-Type Natriuretic Peptide 4829H, Total Protein 8.8H, Albumin 3.3L, Globulin 5.5, Albumin/Globulin Ratio 0.6L, Random Vancomycin Level 16.4 Height (Feet): 5 Height (Inches): 6.00 Weight (Pounds): 166 General Appearance: no apparent distress Respiratory/Chest: lungs clear Abdomen: soft, other - tolerating GT feeding Neurologic: other - minimal extrapyramidal Sxs Objective no change Estevan Orozco MD Mar 12, 2018 12:39
--- NOTE | 2018-03-12 12:46 | Pulmonology Progress Note ---
Assessment/Plan Problems: (1) Bacteremia (2) GI bleed (3) Functional quadriplegia (4) Seizure disorder (5) Dementia (6) Diabetes (7) G tube feedings Assessment/Plan npo transfuse prbc today check h/h in morning continue IV fluids GI evaluation ID evaluation for bacteremia dvt prophylaxis Subjective ROS Limited/Unobtainable: Yes Respiratory: Reports: no symptoms Cardiovascular: Reports: no symptoms Gastrointestinal/Abdominal: Reports: no symptoms Allergies: Coded Allergies: METOCLOPRAMIDE (Verified Allergy, Unknown, 03/10/18) extrapyramidal Sx Objective Last 24 Hour Vital Signs Date Time Temp Pulse Resp B/P (MAP) Pulse Ox O2 Delivery O2 Flow Rate FiO2 03/12/18 09:00 Nasal Cannula 2.0 03/12/18 08:00 97.3 68 21 121/46 (71) 97 03/12/18 07:35 55 03/12/18 04:00 72 03/12/18 04:00 98.6 63 18 143/51 (81) 99 03/12/18 00:00 98.2 65 18 134/65 (88) 97 03/12/18 00:00 69 03/11/18 23:40 98.1 03/11/18 20:00 Nasal Cannula 2.0 03/11/18 20:00 59 03/11/18 20:00 98.1 60 17 134/96 (109) 95 03/11/18 17:38 97.7 03/11/18 16:40 72 03/11/18 16:00 97.7 78 21 127/61 (83) 100 Intake and Output 03/11/18 03/12/18 19:00 07:00 Intake Total 465 ml 1750 ml Output Total 250 ml 800 ml Balance 215 ml 950 ml Intake Free Water 100 ml 50 ml IV Total 125 ml 1190 ml Tube Feeding 240 ml 210 ml Blood Product 300 ml Output Urine Total 250 ml 800 ml # Bowel Movements 1 6 General Appearance: WD/WN HEENT: normocephalic Respiratory/Chest: chest wall non-tender, lungs clear Breasts: no masses Cardiovascular: regular rhythm Abdomen: normal bowel sounds, soft, non tender Lymphatic: no neck adenopathy Microbiology Date/Time Source Procedure Growth Status 03/09/18 15:12 Blood Blood Culture - Preliminary Staphylococcus Sp Coag Neg Resulted 03/09/18 15:00 Blood Blood Culture - Preliminary Staphylococcus Sp Coag Neg Resulted 03/09/18 15:39 Nasal Nares MRSA Culture - Final NO METHICILLIN RESISTANT STAPH AUREUS... Complete 03/09/18 21:00 Indwelling Cath Urine Culture - Preliminary NO GROWTH AFTER 24 HOURS Resulted 03/09/18 15:39 Rectum VRE Culture - Final Enterococcus Faecium - Vre Complete 03/09/18 15:39 Rectum - Final NO CARBAPENEM-RESISTANT ENTEROBACTERI... Complete Laboratory Tests 03/12/18 04:41: White Blood Count 8.6, Red Blood Count 2.98L, Hemoglobin 9.9L, Hematocrit 28.3L , Mean Corpuscular Volume 95, Mean Corpuscular Hemoglobin 33.2H, Mean Corpuscular Hemoglobin Concent 35.0, Red Cell Distribution Width 14.6, Platelet Count 126L, Mean Platelet Volume 8.3, Neutrophils (%) (Auto) 63.6, Lymphocytes ( %) (Auto) 26.4, Monocytes (%) (Auto) 6.5, Eosinophils (%) (Auto) 2.6, Basophils (%) (Auto) 0.8, Sodium Level 140, Potassium Level 3.5, Chloride Level 107, Carbon Dioxide Level 24, Anion Gap 9, Blood Urea Nitrogen 36H, Creatinine 2.1H, Estimat Glomerular Filtration Rate , Glucose Level 139H, Uric Acid 6.2, Calcium Level 8.4L, Phosphorus Level 3.6, Magnesium Level 2.1, Total Bilirubin 0.3, Aspartate Amino Transf (AST/SGOT) 17, Alanine Aminotransferase (ALT/SGPT) 23, Alkaline Phosphatase 92, C-Reactive Protein, Quantitative 12.9H, Pro-B-Type Natriuretic Peptide 4829H, Total Protein 8.8H, Albumin 3.3L, Globulin 5.5, Albumin/Globulin Ratio 0.6L, Random Vancomycin Level 16.4 Current Medications Medications (Trade) Dose Ordered Sig/Nancy Route PRN Reason Start Time Stop Time Status Last Admin Dose Admin Acetaminophen (Tylenol) 650 mg Q4H PRN GT Mild Pain/Temp > 100.5 03/09/18 17:45 04/08/18 17:44 03/11/18 17:08 Aspirin (ASA) 81 mg DAILY GT 03/10/18 09:00 04/09/18 08:59 03/11/18 09:24 Dextrose (Dextrose 50%) 25 ml Q30M PRN IV Hypoglycemia 03/10/18 15:30 04/09/18 15:29 Dextrose (Dextrose 50%) 50 ml Q30M PRN IV Hypoglycemia 03/10/18 15:30 04/09/18 15:29 Diphenhydramine HCl (Benadryl) 25 mg Q8HR NG 03/12/18 14:00 04/11/18 13:59 Epoetin Wallace (Procrit (for non ESRD use)) 10,000 units SAT-SAT-SAT SUBQ 03/12/18 21:00 04/11/18 20:59 Heparin Sodium (Porcine) (Heparin 5000 units/ml) 5,000 units EVERY 12 HOURS SUBQ 03/09/18 21:00 04/08/18 20:59 03/09/18 20:41 Insulin Aspart (NovoLOG) EVERY 6 HOURS SUBQ 03/10/18 18:00 04/09/18 17:59 03/12/18 11:44 Lansoprazole (Prevacid) 30 mg BID GT 03/12/18 18:00 04/11/18 17:59 Levetiracetam (Keppra) 1,000 mg Q12HR NG 03/12/18 21:00 04/11/18 20:59 Ondansetron HCl (Zofran) 4 mg Q6H PRN IVP Nausea & Vomiting 03/09/18 17:45 04/08/18 17:44 Tramadol HCl (Ultram) 25 mg Q8HR GT 03/12/18 14:00 03/16/18 21:59 Saira Lazcano MD Mar 12, 2018 12:46
[2018-03-12] MEDS ORDERED: traMADol 50mg tab GT SCH (14:00)
[2018-03-12] MEDS ORDERED: DiphenhydrAMINE 25mg/10ml Elixir NG SCH (14:00)
--- NOTE | 2018-03-12 14:30 | Infectious Diseases Prog Note ---
Assessment/Plan Problems: (1) Coagulase negative Staphylococcus bacteremia Assessment & Plan: source most likely skin wounds , will start cefazolin pending sensitivity , and order echo to rule out vegetations . (2) Diabetes Assessment & Plan: recommend tight glycemic control (3) CKD (chronic kidney disease) Assessment & Plan: monitor renal function, renally dosed meds , avoid nephrotoxics (4) Sacral decubitus ulcer Assessment & Plan: continue local wound care as per hospital protocol and off loading Subjective Allergies: Coded Allergies: METOCLOPRAMIDE (Verified Allergy, Unknown, 03/10/18) extrapyramidal Sx Objective Vital Signs Last 24 Hour Vital Signs Date Time Temp Pulse Resp B/P (MAP) Pulse Ox O2 Delivery O2 Flow Rate FiO2 03/12/18 12:00 97.7 75 22 148/53 (84) 99 03/12/18 11:31 69 03/12/18 09:00 Nasal Cannula 2.0 03/12/18 08:00 97.3 68 21 121/46 (71) 97 03/12/18 07:35 55 03/12/18 04:00 72 03/12/18 04:00 98.6 63 18 143/51 (81) 99 03/12/18 00:00 98.2 65 18 134/65 (88) 97 03/12/18 00:00 69 03/11/18 23:40 98.1 03/11/18 20:00 Nasal Cannula 2.0 03/11/18 20:00 59 03/11/18 20:00 98.1 60 17 134/96 (109) 95 03/11/18 17:38 97.7 03/11/18 16:40 72 03/11/18 16:00 97.7 78 21 127/61 (83) 100 Height (Feet): 5 Height (Inches): 6.00 Weight (Pounds): 166 Microbiology Date/Time Source Procedure Growth Status 03/09/18 15:12 Blood Blood Culture - Preliminary Staphylococcus Sp Coag Neg Resulted 03/09/18 15:00 Blood Blood Culture - Preliminary Staphylococcus Sp Coag Neg Resulted 03/09/18 15:39 Nasal Nares MRSA Culture - Final NO METHICILLIN RESISTANT STAPH AUREUS... Complete 03/09/18 21:00 Indwelling Cath Urine Culture - Preliminary NO GROWTH AFTER 24 HOURS Resulted 03/09/18 15:39 Rectum VRE Culture - Final Enterococcus Faecium - Vre Complete 03/09/18 15:39 Rectum - Final NO CARBAPENEM-RESISTANT ENTEROBACTERI... Complete Laboratory Tests Test 03/12/18 04:41 White Blood Count 8.6 K/UL (4.8-10.8) Red Blood Count 2.98 M/UL (4.20-5.40) L Hemoglobin 9.9 G/DL (12.0-16.0) L Hematocrit 28.3 % (37.0-47.0) L Mean Corpuscular Volume 95 FL (80-99) Mean Corpuscular Hemoglobin 33.2 PG (27.0-31.0) H Mean Corpuscular Hemoglobin Concent 35.0 G/DL (32.0-36.0) Red Cell Distribution Width 14.6 % (11.6-14.8) Platelet Count 126 K/UL (150-450) L Mean Platelet Volume 8.3 FL (6.5-10.1) Neutrophils (%) (Auto) 63.6 % (45.0-75.0) Lymphocytes (%) (Auto) 26.4 % (20.0-45.0) Monocytes (%) (Auto) 6.5 % (1.0-10.0) Eosinophils (%) (Auto) 2.6 % (0.0-3.0) Basophils (%) (Auto) 0.8 % (0.0-2.0) Sodium Level 140 MMOL/L (136-145) Potassium Level 3.5 MMOL/L (3.5-5.1) Chloride Level 107 MMOL/L (98-107) Carbon Dioxide Level 24 MMOL/L (21-32) Anion Gap 9 mmol/L (5-15) Blood Urea Nitrogen 36 mg/dL (7-18) H Creatinine 2.1 MG/DL (0.55-1.30) H Estimat Glomerular Filtration Rate mL/min (>60) Glucose Level 139 MG/DL (74-106) H Uric Acid 6.2 MG/DL (2.6-7.2) Calcium Level 8.4 MG/DL (8.5-10.1) L Phosphorus Level 3.6 MG/DL (2.5-4.9) Magnesium Level 2.1 MG/DL (1.8-2.4) Total Bilirubin 0.3 MG/DL (0.2-1.0) Aspartate Amino Transf (AST/SGOT) 17 U/L (15-37) Alanine Aminotransferase (ALT/SGPT) 23 U/L (12-78) Alkaline Phosphatase 92 U/L (46-116) C-Reactive Protein, Quantitative 12.9 mg/dL (0.00-0.90) H Pro-B-Type Natriuretic Peptide 4829 pg/mL (0-125) H Total Protein 8.8 G/DL (6.4-8.2) H Albumin 3.3 G/DL (3.4-5.0) L Globulin 5.5 g/dL Albumin/Globulin Ratio 0.6 (1.0-2.7) L Random Vancomycin Level 16.4 ug/mL Current Medications Medications (Trade) Dose Ordered Sig/Nancy Route PRN Reason Start Time Stop Time Status Last Admin Dose Admin Acetaminophen (Tylenol) 650 mg Q4H PRN GT Mild Pain/Temp > 100.5 03/09/18 17:45 04/08/18 17:44 03/11/18 17:08 Aspirin (ASA) 81 mg DAILY GT 03/10/18 09:00 04/09/18 08:59 03/11/18 09:24 Dextrose (Dextrose 50%) 25 ml Q30M PRN IV Hypoglycemia 03/10/18 15:30 04/09/18 15:29 Dextrose (Dextrose 50%) 50 ml Q30M PRN IV Hypoglycemia 03/10/18 15:30 04/09/18 15:29 Diphenhydramine HCl (Benadryl) 25 mg Q8HR NG 03/12/18 14:00 04/11/18 13:59 Epoetin Wallace (Procrit (for non ESRD use)) 10,000 units SAT-SAT-SAT SUBQ 03/12/18 21:00 04/11/18 20:59 Heparin Sodium (Porcine) (Heparin 5000 units/ml) 5,000 units EVERY 12 HOURS SUBQ 03/09/18 21:00 04/08/18 20:59 03/09/18 20:41 Insulin Aspart (NovoLOG) EVERY 6 HOURS SUBQ 03/10/18 18:00 04/09/18 17:59 03/12/18 11:44 Lansoprazole (Prevacid) 30 mg BID GT 03/12/18 18:00 04/11/18 17:59 Levetiracetam (Keppra) 1,000 mg Q12HR NG 03/12/18 21:00 04/11/18 20:59 Ondansetron HCl (Zofran) 4 mg Q6H PRN IVP Nausea & Vomiting 03/09/18 17:45 04/08/18 17:44 Tramadol HCl (Ultram) 25 mg Q8HR GT 03/12/18 14:00 03/16/18 21:59 Ayala Forman M.D. Mar 12, 2018 14:30
[2018-03-12] MEDS ORDERED: ceFAZolin 2gm/50ml Premix 50 ML IVPB ONE (15:00)
[2018-03-12 16:00] VITALS: BP 152/69
--- NOTE | 2018-03-12 17:19 | Cardiology Report ---
APPROVED REPORT EXAM: Two-dimensional and M-mode echocardiogram with Doppler and color Doppler. INDICATION Endocarditis M-Mode DIMENSIONS IVSd1.5 (0.7-1.1cm)Left Atrium (MM)3.8 (1.6-4.0cm) LVDd2.7 (3.5-5.6cm)Aortic Root2.8 (2.0-3.7cm) PWd1.2 (0.7-1.1cm)Aortic Cusp Exc.1.1 (1.5-2.0cm) LVDs1.3 (2.5-4.0cm) PWs1.4 cm Technically difficult study due to poor acoustic windows. Study quality precludes accurate assessment of regional wall motion. Normal left ventricular chamber size, systolic function and wall motion. Left ventricular ejection fraction estimated to be 55 %. Mild left ventricular hypertrophy. Anterior Echo-free space, may be due to pericardial fat or effusion. Left atrial size at upper limits of normal. Right atrial size chamber size is within normal limits. Right ventricular chamber sizes is within normal limits. Aortic valve calcification with decreased cusp excursion c/w aortic stenosis. Mildly thickened mitral valve leaflets with normal excursion. Mild mitral annulus and aortic root calcification. Pulmonic valve not visualized. Normal tricuspid valve structure. Subcostal views not obtained due to G Tube. No discrete vegetations seen, however SBE may not be excluded by transthoracic 2-D echo. A color flow and spectral Doppler study was performed and revealed: Moderate aortic insufficiency. Peak aortic valve gradient of 16 mmHg and a mean of 8 mmHg. Aortic valve area 1.5 cm2 calculated by continuity equation. Moderate mitral regurgitation. Mitral inflow velocities indicates possible pseudo normalization pattern implying significant left ventricular diastolic dysfunction (Grade II). Trace tricuspid regurgitation. Tricuspid systolic velocities suggests peak right ventricular systolic pressure of 28 mmHg.
[2018-03-12] MEDS ORDERED: Acetaminophen 650mg/20.3ml GT PRN (18:30)
--- NOTE | 2018-03-12 19:15 | Consultation ---
DATE OF CONSULTATION: 03/12/2018 INFECTIOUS DISEASES CONSULTATION CONSULTING PHYSICIAN: Ayala Forman M.D. REQUESTING PHYSICIAN: Estevan Orozco M.D. REASON FOR CONSULTATION: Coagulase-negative Staph bacteremia in the setting of renal failure. Recommendation for antibiotics treatment. HISTORY OF PRESENT ILLNESS: The patient is an 82-year-old female, in well known to me from previous admission with past medical history of diabetes, sepsis, hypertension, pneumonia, dysphagia, organic brain syndrome, epilepsy was sent to [facility] for increased vomiting. The patient was found to be dehydrated with renal failure in the emergency room. She had no fever or chills and as per the record the patient was treated recently for urinary tract infection. The patient had a blood culture done on admission by the emergency room physician and she was admitted to the hospital, started on IV fluids for hydration and received 1 dose of vancomycin during the hospitalization. Once her blood culture started growing gram-positive cocci and today the results of the blood culture showed Staphylococcus species coagulase-negative in 3 bottles so Infectious Diseases consultation was requested for antibiotics treatment and further management. As of note, the patient is poor historian, cannot provide any history. History was mainly obtained from the medical record. REVIEW OF SYSTEMS: Unable to obtain. The patient is a very poor historian. PAST MEDICAL HISTORY: Significant for sepsis, DVT, hypertension, pneumonia, diabetes, organic brain syndrome, CVA with right deficit, dementia, epilepsy, and dysphagia. PAST SURGICAL HISTORY: She had right [id number]-[id number] amputation and G-tube placement. ALLERGIES: No known drug allergies. MEDICATIONS: She received vancomycin during the hospitalization on March 11, 2018. For the rest of her medications, please refer to MAR. SOCIAL HISTORY: The patient lives at residential. No recent drugs, tobacco, or alcohol. PHYSICAL EXAMINATION: VITAL SIGNS: Temperature 97.7, pulse 75, respirations 22, blood pressure 148/53, saturation 99% on two liters nasal cannula. GENERAL: Elderly female, obese lying in bed, unresponsive, in vegetative state, NAD . HEENT: Normocephalic and atraumatic. Unable to examine pupils. The patient does not open her eyes. Tongue is sticking out of her mouth, dry with dryness. No ulceration. NECK: Supple. No lymphadenopathy. CARDIOVASCULAR: Regular rate and rhythm. No murmur. LUNGS: Clear bilaterally. No wheezing. No rhonchi. ABDOMEN: Soft, obese, nontender, and nondistended. Normal bowel sounds. No organomegaly. EXTREMITIES: She has right nqmeo-zwr-gbyo amputation. Left heel, old scar wound. SKIN: She had sacral pressure wound healed and dry with eschar at the base. No evidence of infection. LABORATORY DATA: Labs showed white count of 8.6, hemoglobin of 9.9, platelet count 126. BUN of 36 and creatinine of 2.1. Urinalysis showed +1 leukocyte esterase, wbc's 5 to 10. MICROBIOLOGY: 1. Blood culture x2 on the 03/09/2018 grew Staphylococcus species coagulase-negative out of 3 bottles. 2. Urine culture on the 03/09/2018 is pending 3. VRE screening was positive. IMAGING: Abdominal CT scan on admission without contrast showed no acute finding appreciated, extensive diverticulosis of the colon. No definite diverticulitis. IVC filter, basilar scarring, gastrostomy. Chest x-ray showed no acute disease. ASSESSMENT AND RECOMMENDATION: 1. Coagulase-negative staph bacteremia, source most likely skin wounds. We will start the patient on cefazolin empiric coverage, pending blood culture and sensitivity. We will order echocardiogram to rule out vegetations. 2. Diabetes. Recommend tight glycemic control to keep blood glucose between 100 to 140. 3. CKD. Monitor renal function. Renally dosed medicine. Avoid nephrotoxics. 4. Sacral decubitus ulcer. Clean and dry with eschar. Continue local wound care as per hospital protocol and off-loading as needed. Thank you for the consult. ID will continue to follow. Ayala Forman M.D. DR: Dora JOB#: [id number] CC: NIMCO
[2018-03-12 20:00] VITALS: BP 159/92
[2018-03-12] MEDS ORDERED: levETIRAcetam 500mg/5ml Liquid NG SCH (21:00)
[2018-03-12] MEDS ORDERED: Epogen (for non ESRD use) SUBQ SCH ×2 (21:00)
[2018-03-12] MEDS: DiphenhydrAMINE 25mg/10ml Elixir GT SCH (21:38)
[2018-03-12] MEDS: levETIRAcetam 500mg/5ml Liquid GT SCH (21:38)
[2018-03-12] MEDS ORDERED: ceFAZolin 1gm in D5W 55ml IVPB SCH (23:00)
[2018-03-12] MEDS: ceFAZolin sod 1 GM in D5W 55 ML IVPB SCH (23:14)
[2018-03-13] VITALS: BP 159/69
[2018-03-13] MEDS: NovoLOG Insulin Flexpen SUBQ SCH ×3 (00:41→12:33)
[2018-03-13 04:00] VITALS: BP 131/59
[2018-03-13] MEDS: traMADol 50mg tab GT SCH ×2 (05:28→14:15)
[2018-03-13] MEDS: DiphenhydrAMINE 25mg/10ml Elixir GT SCH ×2 (05:29→14:15)
[2018-03-13 07:26] LABS: BASOPHILS % (AUTO) 1.1 % (0.0-2.0); HEMATOCRIT 30.6 % (37.0-47.0); HEMOGLOBIN 10.9 G/DL (12.0-16.0); LYMPHOCYTES % (AUTO) 26.2 % (20.0-45.0); MEAN CORPUSCULAR VOLUME 96 FL (80-99); MONOCYTES % (AUTO) 5.7 % (1.0-10.0); PLATELET COUNT 156 K/UL (150-450); RED CELL DISTRIBUTION WIDTH 14.3 % (11.6-14.8); WHITE BLOOD COUNT 8.2 K/UL (4.8-10.8)
[2018-03-13 07:37] LABS: ALANINE AMINOTRANSFERASE 18 U/L (12-78); ALBUMIN 3.1 G/DL (3.4-5.0); ALBUMIN/GLOBULIN RATIO 0.5 (1.0-2.7); ALKALINE PHOSPHATASE 92 U/L (46-116); ANION GAP 11 mmol/L (5-15); ASPARTATE AMINO TRANSFERASE 19 U/L (15-37); BILIRUBIN,TOTAL 0.2 MG/DL (0.2-1.0); BLOOD UREA NITROGEN 31 mg/dL (7-18); CALCIUM 8.7 MG/DL (8.5-10.1); CARBON DIOXIDE 24 MMOL/L (21-32); CHLORIDE 106 MMOL/L (98-107); CREATININE 1.8 MG/DL (0.55-1.30); PHOSPHORUS 2.9 MG/DL (2.5-4.9); POTASSIUM 3.7 MMOL/L (3.5-5.1); SODIUM 141 MMOL/L (136-145)
[2018-03-13] MEDS: levETIRAcetam 500mg/5ml Liquid GT SCH (08:23)
[2018-03-13] MEDS: Heparin 5000 units/ml inj SUBQ SCH (08:25)
[2018-03-13] MEDS: ceFAZolin sod 1 GM in D5W 55 ML IVPB SCH (08:27)
[2018-03-13 09:00] VITALS: BP 146/83
[2018-03-13] MEDS ORDERED: Aspirin Baby 81mg GT SCH (09:00)
--- NOTE | 2018-03-13 10:47 | General Progress Note ---
Assessment/Plan Problem List: (1) Acute on chronic renal failure ICD Codes: N17.9 - Acute kidney failure, unspecified; N18.9 - Chronic kidney disease, unspecified SNOMED: 305339062 (2) GI bleed ICD Codes: K92.2 - Gastrointestinal hemorrhage, unspecified SNOMED: 13372837 (3) Anemia ICD Codes: D64.9 - Anemia, unspecified SNOMED: 370745046 (4) Seizure disorder ICD Codes: G40.909 - Epilepsy, unspecified, not intractable, without status epilepticus SNOMED: 713907024 (5) Diabetes ICD Codes: E11.9 - Type 2 diabetes mellitus without complications SNOMED: 68980809 (6) Extrapyramidal reaction ICD Codes: G25.9 - Extrapyramidal and movement disorder, unspecified SNOMED: 12295012 Status: stable Assessment/Plan DC on Keflex via GT: GT feeding- Transfused Cefazolin DC Hydrate- benadryl Monitor renal parameters GT oprevacid- Keppra avoid nephrotoxics pending cultures bs and bp check EEG Neg for Sz 1. An encephalopathy of severe degree most probably with metabolic component as evidenced by the triphasic waveforms. 2. Right central epileptogenic focus with only interictal discharges seen on this EEG. per orders med surg Subjective ROS Limited/Unobtainable: No Constitutional: Reports: malaise Allergies: Coded Allergies: METOCLOPRAMIDE (Verified Allergy, Unknown, 03/10/18) extrapyramidal Sx Objective Last 24 Hour Vital Signs Date Time Temp Pulse Resp B/P (MAP) Pulse Ox O2 Delivery O2 Flow Rate FiO2 03/13/18 09:00 Nasal Cannula 2.0 03/13/18 09:00 98.1 57 20 146/83 (104) 100 03/13/18 04:00 97.2 69 20 131/59 (83) 100 03/13/18 00:00 97.7 63 20 159/69 (99) 98 03/12/18 21:00 Nasal Cannula 2.0 03/12/18 20:00 98.6 72 20 159/92 (114) 97 03/12/18 19:20 98.6 03/12/18 16:00 98.8 61 20 152/69 (96) 97 03/12/18 15:13 60 03/12/18 12:00 97.7 75 22 148/53 (84) 99 03/12/18 11:31 69 Intake and Output 03/12/18 03/13/18 19:00 07:00 Intake Total 755 ml Output Total 700 ml 750 ml Balance 55 ml -750 ml IV Total 275 ml Tube Feeding 330 ml Other 150 ml Output Urine Total 700 ml 750 ml # Bowel Movements 2 2 Current Medications Medications (Trade) Dose Ordered Sig/Nancy Route PRN Reason Start Time Stop Time Status Last Admin Dose Admin Acetaminophen (Tylenol) 650 mg Q4H PRN GT Mild Pain/Temp > 100.5 03/12/18 18:30 04/08/18 18:29 03/12/18 18:50 Aspirin (ASA) 81 mg DAILY GT 03/13/18 09:00 04/09/18 08:59 03/13/18 08:23 Cefazolin Sodium 1 gm/Dextrose 55 ml @ 110 mls/hr Q12HR IVPB 03/12/18 23:00 03/19/18 22:59 03/13/18 08:27 Cephalexin (Keflex) 500 mg Q8HR GT 03/13/18 14:00 03/17/18 13:59 UNV Dextrose (Dextrose 50%) 25 ml Q30M PRN IV Hypoglycemia 03/12/18 17:30 04/09/18 15:29 Dextrose (Dextrose 50%) 50 ml Q30M PRN IV Hypoglycemia 03/12/18 17:30 04/09/18 15:29 Diphenhydramine HCl (Benadryl) 25 mg Q8HR GT 03/12/18 22:00 04/11/18 13:59 03/13/18 05:29 Epoetin Wallace (Procrit (for non ESRD use)) 10,000 units MON-WED-SAT SUBQ 03/12/18 21:00 04/11/18 20:59 03/12/18 22:31 Heparin Sodium (Porcine) (Heparin 5000 units/ml) 5,000 units EVERY 12 HOURS SUBQ 03/12/18 21:00 04/08/18 20:59 03/13/18 08:25 Insulin Aspart (NovoLOG) EVERY 6 HOURS SUBQ 03/12/18 18:00 04/09/18 17:59 03/13/18 06:41 Lansoprazole (Prevacid) 30 mg BID GT 03/12/18 18:00 04/11/18 17:59 03/13/18 08:22 Levetiracetam (Keppra) 1,000 mg Q12HR GT 03/12/18 21:00 04/11/18 20:59 03/13/18 08:23 Ondansetron HCl (Zofran) 4 mg Q6H PRN IVP Nausea & Vomiting 03/12/18 17:45 04/08/18 17:44 Tramadol HCl (Ultram) 25 mg Q8HR GT 03/12/18 22:00 03/16/18 21:59 03/13/18 05:28 Laboratory Tests 03/13/18 07:00: White Blood Count 8.2, Red Blood Count 3.20L, Hemoglobin 10.9L, Hematocrit 30.6L , Mean Corpuscular Volume 96, Mean Corpuscular Hemoglobin 33.9H, Mean Corpuscular Hemoglobin Concent 35.5, Red Cell Distribution Width 14.3, Platelet Count 156, Mean Platelet Volume 8.3, Neutrophils (%) (Auto) 63.0, Lymphocytes (% ) (Auto) 26.2, Monocytes (%) (Auto) 5.7, Eosinophils (%) (Auto) 4.0H, Basophils (%) (Auto) 1.1, Sodium Level 141, Potassium Level 3.7, Chloride Level 106, Carbon Dioxide Level 24, Anion Gap 11, Blood Urea Nitrogen 31H, Creatinine 1.8H , Estimat Glomerular Filtration Rate , Glucose Level 133H, Calcium Level 8.7, Phosphorus Level 2.9, Magnesium Level 2.0, Total Bilirubin 0.2, Aspartate Amino Transf (AST/SGOT) 19, Alanine Aminotransferase (ALT/SGPT) 18, Alkaline Phosphatase 92, Total Protein 9.0H, Albumin 3.1L, Globulin 5.9, Albumin/ Globulin Ratio 0.5L Height (Feet): 5 Height (Inches): 6.00 Weight (Pounds): 166 General Appearance: no apparent distress Cardiovascular: regular rhythm Respiratory/Chest: lungs clear Abdomen: soft Objective no change Estevan Orozco MD Mar 13, 2018 10:47
[2018-03-13] MEDS ORDERED: KEFLEX500 M1 GT (10:52)
[2018-03-13] MEDS ORDERED: KEPPRA LIQ100 MG/1 M GT (10:52)
[2018-03-13] MEDS ORDERED: TRAMADOL HCL50 MG GT (10:52)
[2018-03-13] MEDS ORDERED: LANSOPRAZOLE30 MG GT (10:52)
[2018-03-13] MEDS ORDERED: BENADRYL12.5 MG/5 GT (10:52)
[2018-03-13] MEDS ORDERED: NOVOLOG100 UNITS1 SUBQ (10:52)
--- NOTE | 2018-03-13 10:54 | Discharge Instructions ---
Discharge Instructions Discharge Instructions Follow up with: myself at [facility] Diet: other - GT feeding Follow Up Orders routin skin care- Sz precautions Aspiration precautions ALLERGIC TO REGLAN For Congestive Heart Failure Reminder Report to your physician any weight gain of 5 pounds or more in one week. Estevan Orozco MD Mar 13, 2018 10:54
--- NOTE | 2018-03-13 11:07 | Pulmonology Progress Note ---
Assessment/Plan Problems: (1) Bacteremia (2) GI bleed (3) Functional quadriplegia (4) Seizure disorder (5) Dementia (6) Diabetes (7) G tube feedings Assessment/Plan transfused prbc yesterday check h/h in morning continue IV fluids GI evaluation ID evaluation for bacteremia appreciated dvt prophylaxis Subjective ROS Limited/Unobtainable: No Constitutional: Reports: no symptoms HEENT: Repors: no symptoms Allergies: Coded Allergies: METOCLOPRAMIDE (Verified Allergy, Unknown, 03/10/18) extrapyramidal Sx Objective Last 24 Hour Vital Signs Date Time Temp Pulse Resp B/P (MAP) Pulse Ox O2 Delivery O2 Flow Rate FiO2 03/13/18 09:00 Nasal Cannula 2.0 03/13/18 09:00 98.1 57 20 146/83 (104) 100 03/13/18 04:00 97.2 69 20 131/59 (83) 100 03/13/18 00:00 97.7 63 20 159/69 (99) 98 03/12/18 21:00 Nasal Cannula 2.0 03/12/18 20:00 98.6 72 20 159/92 (114) 97 03/12/18 19:20 98.6 03/12/18 16:00 98.8 61 20 152/69 (96) 97 03/12/18 15:13 60 03/12/18 12:00 97.7 75 22 148/53 (84) 99 03/12/18 11:31 69 Intake and Output 03/12/18 03/13/18 19:00 07:00 Intake Total 755 ml Output Total 700 ml 750 ml Balance 55 ml -750 ml IV Total 275 ml Tube Feeding 330 ml Other 150 ml Output Urine Total 700 ml 750 ml # Bowel Movements 2 2 General Appearance: WD/WN HEENT: normocephalic, atraumatic Respiratory/Chest: chest wall non-tender, lungs clear Cardiovascular: normal peripheral pulses, normal rate Abdomen: normal bowel sounds, non distended Genitourinary: normal external genitalia Skin: no rash Laboratory Tests 03/13/18 07:00: White Blood Count 8.2, Red Blood Count 3.20L, Hemoglobin 10.9L, Hematocrit 30.6L , Mean Corpuscular Volume 96, Mean Corpuscular Hemoglobin 33.9H, Mean Corpuscular Hemoglobin Concent 35.5, Red Cell Distribution Width 14.3, Platelet Count 156, Mean Platelet Volume 8.3, Neutrophils (%) (Auto) 63.0, Lymphocytes (% ) (Auto) 26.2, Monocytes (%) (Auto) 5.7, Eosinophils (%) (Auto) 4.0H, Basophils (%) (Auto) 1.1, Sodium Level 141, Potassium Level 3.7, Chloride Level 106, Carbon Dioxide Level 24, Anion Gap 11, Blood Urea Nitrogen 31H, Creatinine 1.8H , Estimat Glomerular Filtration Rate , Glucose Level 133H, Calcium Level 8.7, Phosphorus Level 2.9, Magnesium Level 2.0, Total Bilirubin 0.2, Aspartate Amino Transf (AST/SGOT) 19, Alanine Aminotransferase (ALT/SGPT) 18, Alkaline Phosphatase 92, Total Protein 9.0H, Albumin 3.1L, Globulin 5.9, Albumin/ Globulin Ratio 0.5L Current Medications Medications (Trade) Dose Ordered Sig/Nancy Route PRN Reason Start Time Stop Time Status Last Admin Dose Admin Acetaminophen (Tylenol) 650 mg Q4H PRN GT Mild Pain/Temp > 100.5 03/12/18 18:30 04/08/18 18:29 03/12/18 18:50 Aspirin (ASA) 81 mg DAILY GT 03/13/18 09:00 04/09/18 08:59 03/13/18 08:23 Cefazolin Sodium 1 gm/Dextrose 55 ml @ 110 mls/hr Q12HR IVPB 03/13/18 21:00 03/19/18 22:59 Cephalexin (Keflex) 500 mg Q8HR GT 03/13/18 14:00 03/17/18 13:59 UNV Dextrose (Dextrose 50%) 25 ml Q30M PRN IV Hypoglycemia 03/12/18 17:30 04/09/18 15:29 Dextrose (Dextrose 50%) 50 ml Q30M PRN IV Hypoglycemia 03/12/18 17:30 04/09/18 15:29 Diphenhydramine HCl (Benadryl) 25 mg Q8HR GT 03/12/18 22:00 04/11/18 13:59 03/13/18 05:29 Epoetin Wallace (Procrit (for non ESRD use)) 10,000 units SAT-SAT-FRI SUBQ 03/12/18 21:00 04/11/18 20:59 03/12/18 22:31 Heparin Sodium (Porcine) (Heparin 5000 units/ml) 5,000 units EVERY 12 HOURS SUBQ 03/12/18 21:00 04/08/18 20:59 03/13/18 08:25 Insulin Aspart (NovoLOG) EVERY 6 HOURS SUBQ 03/12/18 18:00 04/09/18 17:59 03/13/18 06:41 Lansoprazole (Prevacid) 30 mg BID GT 03/12/18 18:00 04/11/18 17:59 03/13/18 08:22 Levetiracetam (Keppra) 1,000 mg Q12HR GT 03/12/18 21:00 04/11/18 20:59 03/13/18 08:23 Ondansetron HCl (Zofran) 4 mg Q6H PRN IVP Nausea & Vomiting 03/12/18 17:45 04/08/18 17:44 Tramadol HCl (Ultram) 25 mg Q8HR GT 03/12/18 22:00 03/16/18 21:59 03/13/18 05:28 Saira Lazcano MD Mar 13, 2018 11:07
--- NOTE | 2018-03-13 11:14 | Pulmonology Progress Note ---
Assessment/Plan Problems: (1) Bacteremia (2) GI bleed (3) Functional quadriplegia (4) Seizure disorder (5) Dementia (6) Diabetes (7) G tube feedings Assessment/Plan transfused prbc yesterday EEG reviewed continue IV fluids GI evaluation ID evaluation for bacteremia appreciated dvt prophylaxis Subjective ROS Limited/Unobtainable: Yes Allergies: Coded Allergies: METOCLOPRAMIDE (Verified Allergy, Unknown, 03/10/18) extrapyramidal Sx Objective Last 24 Hour Vital Signs Date Time Temp Pulse Resp B/P (MAP) Pulse Ox O2 Delivery O2 Flow Rate FiO2 03/13/18 09:00 Nasal Cannula 2.0 03/13/18 09:00 98.1 57 20 146/83 (104) 100 03/13/18 04:00 97.2 69 20 131/59 (83) 100 03/13/18 00:00 97.7 63 20 159/69 (99) 98 03/12/18 21:00 Nasal Cannula 2.0 03/12/18 20:00 98.6 72 20 159/92 (114) 97 03/12/18 19:20 98.6 03/12/18 16:00 98.8 61 20 152/69 (96) 97 03/12/18 15:13 60 03/12/18 12:00 97.7 75 22 148/53 (84) 99 03/12/18 11:31 69 Intake and Output 03/12/18 03/13/18 19:00 07:00 Intake Total 755 ml Output Total 700 ml 750 ml Balance 55 ml -750 ml IV Total 275 ml Tube Feeding 330 ml Other 150 ml Output Urine Total 700 ml 750 ml # Bowel Movements 2 2 General Appearance: WD/WN HEENT: normocephalic Respiratory/Chest: chest wall non-tender, lungs clear Cardiovascular: normal peripheral pulses, normal rate Abdomen: normal bowel sounds, soft, non tender Genitourinary: normal external genitalia Extremities: no clubbing Skin: no rash Neurologic/Psychiatric: therapeutic case manager II-XII grossly normal Laboratory Tests 03/13/18 07:00: White Blood Count 8.2, Red Blood Count 3.20L, Hemoglobin 10.9L, Hematocrit 30.6L , Mean Corpuscular Volume 96, Mean Corpuscular Hemoglobin 33.9H, Mean Corpuscular Hemoglobin Concent 35.5, Red Cell Distribution Width 14.3, Platelet Count 156, Mean Platelet Volume 8.3, Neutrophils (%) (Auto) 63.0, Lymphocytes (% ) (Auto) 26.2, Monocytes (%) (Auto) 5.7, Eosinophils (%) (Auto) 4.0H, Basophils (%) (Auto) 1.1, Sodium Level 141, Potassium Level 3.7, Chloride Level 106, Carbon Dioxide Level 24, Anion Gap 11, Blood Urea Nitrogen 31H, Creatinine 1.8H , Estimat Glomerular Filtration Rate , Glucose Level 133H, Calcium Level 8.7, Phosphorus Level 2.9, Magnesium Level 2.0, Total Bilirubin 0.2, Aspartate Amino Transf (AST/SGOT) 19, Alanine Aminotransferase (ALT/SGPT) 18, Alkaline Phosphatase 92, Total Protein 9.0H, Albumin 3.1L, Globulin 5.9, Albumin/ Globulin Ratio 0.5L Current Medications Medications (Trade) Dose Ordered Sig/Nancy Route PRN Reason Start Time Stop Time Status Last Admin Dose Admin Acetaminophen (Tylenol) 650 mg Q4H PRN GT Mild Pain/Temp > 100.5 03/12/18 18:30 04/08/18 18:29 03/12/18 18:50 Aspirin (ASA) 81 mg DAILY GT 03/13/18 09:00 04/09/18 08:59 03/13/18 08:23 Cefazolin Sodium 1 gm/Dextrose 55 ml @ 110 mls/hr Q12HR IVPB 03/13/18 21:00 03/19/18 22:59 Cephalexin (Keflex) 500 mg Q8HR GT 03/13/18 14:00 03/17/18 13:59 UNV Dextrose (Dextrose 50%) 25 ml Q30M PRN IV Hypoglycemia 03/12/18 17:30 04/09/18 15:29 Dextrose (Dextrose 50%) 50 ml Q30M PRN IV Hypoglycemia 03/12/18 17:30 04/09/18 15:29 Diphenhydramine HCl (Benadryl) 25 mg Q8HR GT 03/12/18 22:00 04/11/18 13:59 03/13/18 05:29 Epoetin Wallace (Procrit (for non ESRD use)) 10,000 units SAT-SAT-SAT SUBQ 03/12/18 21:00 04/11/18 20:59 03/12/18 22:31 Heparin Sodium (Porcine) (Heparin 5000 units/ml) 5,000 units EVERY 12 HOURS SUBQ 03/12/18 21:00 04/08/18 20:59 03/13/18 08:25 Insulin Aspart (NovoLOG) EVERY 6 HOURS SUBQ 03/12/18 18:00 04/09/18 17:59 03/13/18 06:41 Lansoprazole (Prevacid) 30 mg BID GT 03/12/18 18:00 04/11/18 17:59 03/13/18 08:22 Levetiracetam (Keppra) 1,000 mg Q12HR GT 03/12/18 21:00 04/11/18 20:59 03/13/18 08:23 Ondansetron HCl (Zofran) 4 mg Q6H PRN IVP Nausea & Vomiting 03/12/18 17:45 04/08/18 17:44 Tramadol HCl (Ultram) 25 mg Q8HR GT 03/12/18 22:00 03/16/18 21:59 03/13/18 05:28 Saira Lazcano MD Mar 13, 2018 11:14
[2018-03-13 11:40] VITALS: BP 150/71
[2018-03-13] MEDS ORDERED: Cephalexin 500mg cap GT SCH (14:00)
[2018-03-13] MEDS ORDERED: Tubing Blood Filter IV ONE (14:16)
[2018-03-13] MEDS ORDERED: Tubing IV Secondary IV ONE (14:16)
[2018-03-13] MEDS ORDERED: NS 275ml ONE (14:16)
[2018-03-13] MEDS ORDERED: D5 1/2NS 1000ml IV ONE ×2 (14:16→14:59)
--- NOTE | 2018-03-13 14:32 | Infectious Diseases Prog Note ---
Assessment/Plan Problems: (1) Coagulase negative Staphylococcus bacteremia Assessment & Plan: source most likely skin wounds , continue cefazolin treatment for now , echo didn't show any vegetations , will repeat blood culture to confirm clearance (2) Diabetes Assessment & Plan: recommend tight glycemic control (3) CKD (chronic kidney disease) Assessment & Plan: monitor renal function, renally dosed meds , avoid nephrotoxics (4) Sacral decubitus ulcer Assessment & Plan: continue local wound care as per hospital protocol and off loading Subjective ROS Limited/Unobtainable: Yes Allergies: Coded Allergies: METOCLOPRAMIDE (Verified Allergy, Unknown, 03/10/18) extrapyramidal Sx Subjective she was lying in bed , comfortable , unresponsive, afebrile. Objective Vital Signs Last 24 Hour Vital Signs Date Time Temp Pulse Resp B/P (MAP) Pulse Ox O2 Delivery O2 Flow Rate FiO2 03/13/18 11:40 98.8 53 20 150/71 (97) 99 03/13/18 09:00 Nasal Cannula 2.0 03/13/18 09:00 98.1 57 20 146/83 (104) 100 03/13/18 04:00 97.2 69 20 131/59 (83) 100 03/13/18 00:00 97.7 63 20 159/69 (99) 98 03/12/18 21:00 Nasal Cannula 2.0 03/12/18 20:00 98.6 72 20 159/92 (114) 97 03/12/18 19:20 98.6 03/12/18 16:00 98.8 61 20 152/69 (96) 97 03/12/18 15:13 60 Height (Feet): 5 Height (Inches): 6.00 Weight (Pounds): 166 General Appearance: WD/WN, no acute distress HEENT: normocephalic, atraumatic, anicteric, mucous membranes moist Respiratory/Chest: chest wall non-tender, lungs clear, no respiratory distress , no accessory muscle use, decreased breath sounds Cardiovascular: normal peripheral pulses, normal rate, regular rhythm, no gallop/murmur, no JVD Abdomen: normal bowel sounds, soft, non tender, no organomegaly, non distended , no mass, no scars Genitourinary: normal external genitalia Extremities: no cyanosis, no clubbing Skin: no rash, no lesions, ulcers - on the sacrum, dry and clean Neurologic/Psychiatric: unresponsiveness Musculoskeletal: normal muscle bulk, no effusion Laboratory Tests Test 03/13/18 07:00 White Blood Count 8.2 K/UL (4.8-10.8) Red Blood Count 3.20 M/UL (4.20-5.40) L Hemoglobin 10.9 G/DL (12.0-16.0) L Hematocrit 30.6 % (37.0-47.0) L Mean Corpuscular Volume 96 FL (80-99) Mean Corpuscular Hemoglobin 33.9 PG (27.0-31.0) H Mean Corpuscular Hemoglobin Concent 35.5 G/DL (32.0-36.0) Red Cell Distribution Width 14.3 % (11.6-14.8) Platelet Count 156 K/UL (150-450) Mean Platelet Volume 8.3 FL (6.5-10.1) Neutrophils (%) (Auto) 63.0 % (45.0-75.0) Lymphocytes (%) (Auto) 26.2 % (20.0-45.0) Monocytes (%) (Auto) 5.7 % (1.0-10.0) Eosinophils (%) (Auto) 4.0 % (0.0-3.0) H Basophils (%) (Auto) 1.1 % (0.0-2.0) Sodium Level 141 MMOL/L (136-145) Potassium Level 3.7 MMOL/L (3.5-5.1) Chloride Level 106 MMOL/L (98-107) Carbon Dioxide Level 24 MMOL/L (21-32) Anion Gap 11 mmol/L (5-15) Blood Urea Nitrogen 31 mg/dL (7-18) H Creatinine 1.8 MG/DL (0.55-1.30) H Estimat Glomerular Filtration Rate mL/min (>60) Glucose Level 133 MG/DL (74-106) H Calcium Level 8.7 MG/DL (8.5-10.1) Phosphorus Level 2.9 MG/DL (2.5-4.9) Magnesium Level 2.0 MG/DL (1.8-2.4) Total Bilirubin 0.2 MG/DL (0.2-1.0) Aspartate Amino Transf (AST/SGOT) 19 U/L (15-37) Alanine Aminotransferase (ALT/SGPT) 18 U/L (12-78) Alkaline Phosphatase 92 U/L (46-116) Total Protein 9.0 G/DL (6.4-8.2) H Albumin 3.1 G/DL (3.4-5.0) L Globulin 5.9 g/dL Albumin/Globulin Ratio 0.5 (1.0-2.7) L Current Medications Medications (Trade) Dose Ordered Sig/Nancy Route PRN Reason Start Time Stop Time Status Last Admin Dose Admin Acetaminophen (Tylenol) 650 mg Q4H PRN GT Mild Pain/Temp > 100.5 03/12/18 18:30 04/08/18 18:29 03/12/18 18:50 Aspirin (ASA) 81 mg DAILY GT 03/13/18 09:00 04/09/18 08:59 03/13/18 08:23 Cefazolin Sodium 1 gm/Dextrose 55 ml @ 110 mls/hr Q12HR IVPB 03/13/18 21:00 03/19/18 22:59 Cephalexin (Keflex) 500 mg Q8HR GT 03/13/18 14:00 03/17/18 13:59 UNV Dextrose (Dextrose 50%) 25 ml Q30M PRN IV Hypoglycemia 03/12/18 17:30 04/09/18 15:29 Dextrose (Dextrose 50%) 50 ml Q30M PRN IV Hypoglycemia 03/12/18 17:30 04/09/18 15:29 Diphenhydramine HCl (Benadryl) 25 mg Q8HR GT 03/12/18 22:00 04/11/18 13:59 03/13/18 14:15 Epoetin Wallace (Procrit (for non ESRD use)) 10,000 units SAT-SAT-SAT SUBQ 03/12/18 21:00 04/11/18 20:59 03/12/18 22:31 Heparin Sodium (Porcine) (Heparin 5000 units/ml) 5,000 units EVERY 12 HOURS SUBQ 03/12/18 21:00 04/08/18 20:59 03/13/18 08:25 Insulin Aspart (NovoLOG) EVERY 6 HOURS SUBQ 03/12/18 18:00 04/09/18 17:59 03/13/18 12:33 Lansoprazole (Prevacid) 30 mg BID GT 03/12/18 18:00 04/11/18 17:59 03/13/18 08:22 Levetiracetam (Keppra) 1,000 mg Q12HR GT 03/12/18 21:00 04/11/18 20:59 03/13/18 08:23 Ondansetron HCl (Zofran) 4 mg Q6H PRN IVP Nausea & Vomiting 03/12/18 17:45 04/08/18 17:44 Tramadol HCl (Ultram) 25 mg Q8HR GT 03/12/18 22:00 03/16/18 21:59 03/13/18 14:15 Ayala Forman M.D. Mar 13, 2018 14:32
[2018-03-13] MEDS ORDERED: ceFAZolin sod 1 GM in D5W 55 ML IVPB SCH (21:00)
--- NOTE | 2018-03-14 10:29 | Discharge Summary ---
Discharge Summary Discharge Summary _ DATE OF ADMISSION: 03/09/2018 DATE OF DISCHARGE: 03/13/2018 CONSULTANTS: Dr. Ayala Lazcano BRIEF HOSPITAL COURSE: Patient is an 82-year-old female, who is a halfway resident. She was last discharged on 01/16/2018 and had 2 emergency room visits for seizures on February 22 and March 05. On day of admission, the patient vomited coffee- ground vomitus and was sent to emergency room for evaluation. She has medical history significant for anemia, diabetes, DVT, sepsis, urinary tract infection, history of left foot osteomyelitis for breech she had [id number] amputation ; history of pneumonia, seizure disorder, dementia, G-tube and functional quadriplegia. On evaluation at ED, vital signs were stable. Blood work did not show any leukocytosis, hemoglobin 10, hematocrit 30. Potassium was elevated to 5.9, BUN was 55, creatinine 2.3. Troponin was negative. Lipase was normal. Urinalysis showed 5-10 WBC, 0-2 RBC, 1+ leukocyte esterase, negative nitrite. CT of the abdomen and pelvis showed diverticulosis with no definite diverticulitis. No acute findings. She was given Kayexalate. She was then admitted for evaluation of coffee-ground emesis with tremors, anemia, diabetes mellitus, dementia and functional quadriplegia. He was placed on NPO. Tube feeding on hold. She was given IV hydration and IV Protonix. She was placed on seizure precautions and was continued on IV Keppra. There was a drop in hemoglobin to 7.7. She was given one unit packed RBC blood transfusion. She was given Epogen. She was eventually restarted on tube feeding. PPI was transitioned to lansoprazole 30 mg twice a day. Initial presentation was not clear; whether it is seizure or a parkinsonian tremor. EEG done showed encephalopathy of severe degree most probably with metabolic component as evidenced by triphasic waveforms. A right central epileptogenic focus on the interictal discharges were seen. Blood culture showed growth of coagulase-negative staph. ID was consulted. She was started on cefazolin empirically. She had an echocardiogram done that showed ejection fraction 55% with normal systolic function and wall motion. There was evidence of moderate aortic insufficiency, moderate mitral regurgitation, and trace tricuspid regurgitation. No vegetations were seen. She came in with sacral decubitus ulcer with clean and dry eschar. She was given local wound care with frequent repositioning and offloading. Repeat blood culture did not isolate any growth. Urine culture did not show any growth. Patient was eventually cleared for discharge to continue Keflex via G-tube at the halfway. FINAL DIAGNOSES: Acute on chronic renal failure GI bleed Anemia Drop in hemoglobin requiring blood transfusion Seizure disorder Diabetes mellitus type 2 Extrapyramidal reaction Hyperkalemia Functional quadriplegia Encephalopathy due to metabolic component Coagulase-negative Staphylococcus bacteremia Sacral decubitus ulcer, present on admission DISPOSITION: Patient was discharged to [facility] convalescent. DISCHARGE MEDICATIONS: Refer to Discharge Medication List. I have been assigned to dictate discharge summary on this account, and I was not involved in the patient's management. Alyce Keane NP Mar 14, 2018 10:29
== END 2018-03-13 15:00 | DRG 377 ==
LOC: EDBD 14:42 → EMR 14:53 → EDBEDREQ 15:04 → 2E 16:29 → EDBEDREQ 16:39 → 2E 23:42 → 4E 03-12 17:00
PROC: 30233N1 Transfusion of Nonautologous Red Blood Cells into Peripheral Vein, Percutaneous Approach (ICD-10-PCS; principal; 2018-03-11)
DX: K92.2 Gastrointestinal hemorrhage, unspecified (principal); R53.2 Functional quadriplegia; G93.41 Metabolic encephalopathy; K94.23 Gastrostomy malfunction; N17.9 Acute kidney failure, unspecified; G25.9 Extrapyramidal and movement disorder, unspecified; R78.81 Bacteremia; D64.9 Anemia, unspecified; F03.90 Unspecified dementia, unspecified severity, without behavioral disturbance, psychotic disturbance, mood disturbance, and anxiety; Z89.612 Acquired absence of left leg above knee; G40.909 Epilepsy, unspecified, not intractable, without status epilepticus; L89.159 Pressure ulcer of sacral region, unspecified stage; E11.22 Type 2 diabetes mellitus with diabetic chronic kidney disease; N18.9 Chronic kidney disease, unspecified; B95.7 Other staphylococcus as the cause of diseases classified elsewhere; K57.90 Diverticulosis of intestine, part unspecified, without perforation or abscess without bleeding; I35.1 Nonrheumatic aortic (valve) insufficiency; I34.0 Nonrheumatic mitral (valve) insufficiency; E87.5 Hyperkalemia; E86.0 Dehydration; Y83.3 Surgical operation with formation of external stoma as the cause of abnormal reaction of the patient, or of later complication, without mention of misadventure at the time of the procedure; I69.398 Other sequelae of cerebral infarction
CPT/HCPCS: 36415; 51702; 71045; 74176; 80053; 80061; 80202; 81003; 82550; 82607; 82728; 82746; 82962; 82977; 83036; 83540; 83550; 83605; 83690; 83735; 83880; 84100; 84443; 84484; 84550; 85007; 85025; 85610; 85730; 86140; 86850; 86900; 86901; 86904; 86920; 87040; 87081; 87086; 87181; 93005; 93306; 95819; 96374; 96375; 99285; J1815; J2405; J2765

== ENCOUNTER 2018-06-29 00:27 | Emergency (ER) | payer MEDICARE, MEDICAID ==
[~2018-06-29] VITALS: Ht 162.6 cm; Wt 70.8 kg
[~2018-06-29 00:27] MED LIST changes: +BACTROBAN 2% OI15 GM TOPIC; +BENADRYL12.5 MG/5 GT; +CARAFATE1 G1 GT; +DIPHENHYDRAMINE25 M1 GT; +ERYTHROMYC200 MG/51 GT; +KEFLEX500 M1 GT; +NORVASC10 MG GT; +PROTONIX20 MG GT; +STARLIX120 MG GT
[2018-06-29] MEDS ORDERED: levETIRAcetam 500mg/NS100ml 100 ML IVPB ONE (00:45)
--- NOTE | 2018-06-29 00:50 | Emergency Room Report ---
History of Present Illness General Chief Complaint: General Complaint Source: Patient, Medical Record, EMS Present Illness HPI Is an 82-year-old female coming from intermediate. She has multiple medical problem. She presents with chief complaint of possible seizure. She does have a history of seizure and take Keppra. According to EMS, nursing staff called 911 because she has some twitching of her hands when she grunts. This is atypical and more pronounced than usual. No fever or chills. No nausea no vomiting denies any other complaint. Allergies: Coded Allergies: METOCLOPRAMIDE (Verified Allergy, Unknown, 03/10/18) extrapyramidal Sx Patient History Past Medical History: see triage record, old chart reviewed Past Surgical History: other Pertinent Family History: none Social History: Denies: smoking Now: No Immunizations: other Reviewed Nursing Documentation: PMH: Agreed; PSxH: Agreed Nursing Documentation-PMH Past Medical History: No History, Except For Hx Cardiac Problems: No - Sepsis, DVT Hx Hypertension: Yes Hx Pacemaker: No Hx Asthma: No Hx COPD: Yes - PNA Hx Diabetes: Yes - DM2 Hx Cancer: No Hx Gastrointestinal Problems: Yes - G-tube Hx Dialysis: No 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 Hx Dementia: Yes Hx Seizures: Yes - Epilepsy Hx Epilepsy: Yes Hx Speech Problem: Yes - Non-verbal Hx Dysphasia: Yes - G-tube Review of Systems Eye: Denies: eye pain, blurred vision ENT: Denies: ear pain, nose congestion, throat swelling Respiratory: Denies: cough, shortness of breath Cardiovascular: Denies: chest pain, palpitations Gastrointestinal: Denies: abdominal pain, diarrhea, nausea, vomiting Musculoskeletal: Denies: back pain, joint pain Skin: Denies: rash Neurological: Denies: headache, numbness Endocrine: Denies: increased thirst, increased urine Hematologic/Lymphatic: Denies: easy bruising All Other Systems: negative except mentioned in HPI Physical Exam Vital Signs Date Time Temp Pulse Resp B/P (MAP) Pulse Ox O2 Delivery O2 Flow Rate FiO2 06/29/18 00:23 98.6 96 22 183/83 100 Room Air vitals with high blood pressure Sp02 EP Interpretation: reviewed, normal General Appearance: well appearing, no apparent distress, alert, Chronically Ill Head: normocephalic, atraumatic Eyes: bilateral eye PERRL, bilateral eye EOMI ENT: hearing grossly normal, normal pharynx Neck: full range of motion, supple, no meningismus Respiratory: chest non-tender, lungs clear, normal breath sounds Cardiovascular #1: regular rate, rhythm, no murmur Gastrointestinal: normal bowel sounds, non tender, no mass, no organomegaly, no bruit, non-distended Musculoskeletal: back normal, other - Contracted Psychiatric: mood/affect normal Skin: warm/dry Medical Decision Making Diagnostic Impression: Primary Impression: UTI (urinary tract infection) Qualified Codes: N30.00 - Acute cystitis without hematuria Additional Impressions: Altered mental status Qualified Codes: R41.82 - Altered mental status, unspecified OREN (acute kidney injury) ER Course Patient resents with possible seizure/altered mental status. No obvious seizure activity here. I gave her a dose of Keppra however. She does have urinary tract infection. She grew out Pseudomonas in the past. Sensitive to Levaquin. antibiotics given here. IV fluid given here. We'll discharge to SNF. Lab Results Impression Labs with elevated BUN/creatinine Rhythm Strip Diag. Results EP Interpretation: yes Rate: 78 Rhythm: NSR, no PVC's, no ectopy Last Vital Signs Date Time Temp Pulse Resp B/P (MAP) Pulse Ox O2 Delivery O2 Flow Rate FiO2 06/29/18 00:23 98.6 96 22 183/83 100 Room Air Status: improved Disposition: XFER SNF Condition: Stable Scripts Levofloxacin* (LEVAQUIN*) 500 Mg Tablet 500 MG GT DAILY, #7 TAB Prov: Paulie Foreman MD 06/29/18 Referrals: Estevan Orozco MD (PCP) Additional Instructions: Follow-up with your in 7 days. Return if worse. Paulie Foreman MD Jun 29, 2018 00:50
[2018-06-29 01:13] VITALS: BP 145/74
--- NOTE | 2018-06-29 01:13 | NUR ---
ER Nurse Note: Pt BIBA from [facility] c/o seizure like activity; per EMS, the facility stated pt had more seizure like acitivity than normal and was concerned. Pt baseline status is a&ox0, makes grunting noises, twitches. Pt VSS, no signs of distress. Pt has a g-tube, patent and clamped. Pt contracted in upper extremities. Below the knee ambulation on left leg. Seizure pads on rails, bed in lowest positiong. ERMD at pt side; will continue to montior.
[2018-06-29 01:14] LABS: APPEARANCE,URINE VERY CLOUDY; BASOPHILS % (AUTO) 0.8 % (0.0-2.0); BILIRUBIN, URINE NEGATIVE (NEGATIVE); COLOR,URINE PALE YELLOW; EOSINOPHILS % (AUTO) 1.4 % (0.0-3.0); GLUCOSE, URINE (UA) NEGATIVE (NEGATIVE); HEMATOCRIT 33.9 % (37.0-47.0); HEMOGLOBIN 11.1 G/DL (12.0-16.0); KETONES,URINE NEGATIVE (NEGATIVE); LEUKOCYTE ESTERASE ,URINE 3+ (NEGATIVE); LYMPHOCYTES % (AUTO) 42.8 % (20.0-45.0); MEAN CORPUSCULAR VOLUME 101 FL (80-99); MONOCYTES % (AUTO) 5.4 % (1.0-10.0); NEUTROPHILS % (AUTO) 49.6 % (45.0-75.0); NITRITE,URINE NEGATIVE (NEGATIVE); PH,URINE 8 (4.5-8.0); PLATELET COUNT 201 K/UL (150-450); PROTEIN,URINE 3+ (NEGATIVE); RED BLOOD COUNT 3.35 M/UL (4.20-5.40); RED CELL DISTRIBUTION WIDTH 11.4 % (11.6-14.8); UROBILINOGEN,URINE NORMAL MG/DL (0.0-1.0); WHITE BLOOD COUNT 7.3 K/UL (4.8-10.8)
[2018-06-29 01:26] LABS: ANION GAP 7 mmol/L (5-15); BLOOD UREA NITROGEN 62 mg/dL (7-18); CALCIUM 9.9 MG/DL (8.5-10.1); CARBON DIOXIDE 30 MMOL/L (21-32); CHLORIDE 107 MMOL/L (98-107); POTASSIUM 4.3 MMOL/L (3.5-5.1); SODIUM 144 MMOL/L (136-145)
[2018-06-29] MEDS ORDERED: Cefepime HCl 1 GM in D5W 55 ML IVPB ONE (01:30)
[2018-06-29] MEDS ORDERED: LEVAQUIN500 MG GT (01:32)
[2018-06-29 02:14] VITALS: BP 136/89
--- NOTE | 2018-06-29 02:30 | NUR ---
ER Nurse Note: Pt VSS, no signs of distress. No seizures during ER. Awaiting transportation to transfer back to facility. Will continue to monitor.
--- NOTE | 2018-06-29 03:03 | NUR ---
ER Nurse Note: Spoke with Radha at [facility] and is aware of pt transfering back to facility.
[2018-06-29 04:09] VITALS: BP 136/89
--- NOTE | 2018-06-29 04:12 | NUR ---
ER Nurse Note: Pt seen, treated, medically cleared for discharge by ERMD. Discharge instructions and prescriptions given. Instructed pt to follow up with primary care physcian within one week. Pt a&ox0, VSS, no signs of distress. ID band removed. IV removed, site clean and bandaged. Pt left with all belongings, discharge instructions given to [facility] transport[facility].
== END 2018-06-29 04:14 ==
LOC: EDBD 00:27 → EMR 00:47
DX: N39.0 Urinary tract infection, site not specified (principal); R41.82 Altered mental status, unspecified; N17.9 Acute kidney failure, unspecified; G40.909 Epilepsy, unspecified, not intractable, without status epilepticus; Z79.899 Other long term (current) drug therapy; Z86.73 Personal history of transient ischemic attack (TIA), and cerebral infarction without residual deficits; F03.90 Unspecified dementia, unspecified severity, without behavioral disturbance, psychotic disturbance, mood disturbance, and anxiety; J44.9 Chronic obstructive pulmonary disease, unspecified; E11.9 Type 2 diabetes mellitus without complications; I10 Essential (primary) hypertension
CPT/HCPCS: 36415; 80048; 81001; 85025; 87086; 87181; 96361; 96365; 96367; 99284; J0692; J1953

== ENCOUNTER 2018-09-01 13:00 | Inpatient (IN) | payer MEDICARE, MEDICAID ==
[~2018-09-01] VITALS: Ht 167.6 cm; Wt 69.9 kg
--- NOTE | 2018-09-01 07:55 | NUR ---
NURSE NOTES: Received patient from Kiana Dalal RN. Patient in bed with no signs of distress. Patient is on room air, NPO per MD order. Bed at its lowest position and call light in reach. Will continue to monitor Addendum: 09/02/18 at 0758 by Latrell Lee RN Wrong time
--- NOTE | 2018-09-01 11:50 | NUR ---
NURSE NOTES: Received report from [facility], received report from LUIS Watson. Patient admitted to [facility] ED for respiratory distress and now on 2L oxygen via NC, sat. 99%, endorsed 2L NS given, 1g vanco given, zosyn given two times, patient was having fever of 102, after abx, Tylenol, no fever 98.9. Made RN aware patient need to be transfer after 1200 d/t no nurse can received before 1200.
[~2018-09-01 13:00] MED LIST changes: +LEVAQUIN500 MG GT
[2018-09-01 13:30] VITALS: BP 125/59
--- NOTE | 2018-09-01 13:30 | NUR ---
NURSE NOTES: Patient transferred via ambulance accompanied by ambulance personnels. VS at the time of arrival BP 125/59, HR 84, 100% with 2L , T 97.5. Belonging checked, patient unable to sign, IV site on right AC, wrist, Left AC 20G, asymptomatic, patent, intact. Patient non-verbal, open eyes spontaneously, G-tube dressing intact, aspirated no residual, left extremity AKA. Wound assessment initiated, sacral open wound assessed, picture taken. Bed in lowest position, side rails upx3, call light within reach. Will continue to monitor.
--- NOTE | 2018-09-01 13:40 | NUR ---
NURSE NOTES: Umaña Catheter inserted per Dr. Orozco.
--- NOTE | 2018-09-01 14:59 | History & Physical ---
History and Physical History & Physicial 83 y old to [place] ER by 911 found to have pneumonia and renal failure corine Shukla and Millicent in [facility] ER transferred to tele pneumonia renal failure acute on chronic DM ooc elevated troponin dehydration: HyperNatremia [id number] Estevan Orozco MD Sep 01, 2018 14:59
[2018-09-01] MEDS ORDERED: HydrALAZINE 25mg tab GT PRN (15:00)
[2018-09-01] MEDS: traMADol 50mg tab GT SCH ×2 (16:33→21:22)
[2018-09-01] MEDS: Sucralfate 1gm tab GT SCH ×2 (17:33→21:17)
[2018-09-01] MEDS: Nitroglycerin Patch 0.4mg TDERMAL SCH (17:33)
[2018-09-01] MEDS: Eliquis 2.5mg tablet GT SCH (17:33)
[2018-09-01] MEDS: NovoLOG Insulin Flexpen SUBQ SCH (18:00)
[2018-09-01] MEDS: Erythromycin Ethylsuccinate 200mg/5ml Susp GT SCH (18:48)
--- NOTE | 2018-09-01 19:40 | NUR ---
NURSE NOTES: Received Pt is resting on the bed and obtunded. able to open the eyes spontaneously. On Oe 2l via nasal cannula and SaO2 98% noted. On tele monitor with SR. IV site intact and no sign of infiltration noted. Given oral suction. Provided oral care. Dressing is clean and dry on sacral wound area. Changed position. On NPO. Pt has G-tubed and patent. Placed fall and seizure precaution. Will continue to care plan.
[2018-09-01 20:00] VITALS: BP 182/85
--- NOTE | 2018-09-01 20:31 | NUR ---
HAND-OFF: Report given to Katarina Damon RN.
--- NOTE | 2018-09-01 20:35 | NUR ---
NURSE NOTES: Received patient from Kiana Dalal RN. Patient in bed with no signs of distress. Patient is on room air, NPO per MD order. Bed at its lowest position and call light in reach. Will continue to monitor
[2018-09-01 20:37] LABS: APPEARANCE,URINE SLIGHTLY CLOUDY; BILIRUBIN, URINE NEGATIVE (NEGATIVE); COLOR,URINE PALE YELLOW; GLUCOSE, URINE (UA) NEGATIVE (NEGATIVE); KETONES,URINE NEGATIVE (NEGATIVE); LEUKOCYTE ESTERASE ,URINE NEGATIVE (NEGATIVE); NITRITE,URINE NEGATIVE (NEGATIVE); PH,URINE 5 (4.5-8.0); PROTEIN,URINE 3+ (NEGATIVE); UROBILINOGEN,URINE NORMAL MG/DL (0.0-1.0)
[2018-09-01] MEDS: Pantoprazole Inj IVP SCH (21:17)
[2018-09-01] MEDS: Piperacillin/Tazobactam 3.375 GM in NS 110 ML IVPB SCH (21:19)
[2018-09-01] MEDS: levETIRAcetam 1,000mg/NS100ml 100 ML IVPB SCH (21:22)
--- NOTE | 2018-09-01 22:15 | History and Physical Report ---
DATE OF ADMISSION: 09/01/2018 HISTORY OF PRESENT ILLNESS: The patient is an 83-year-old female, who is a resident of [facility]. Last evening, had 911 called and the patient, who was found to be hypoxemic and in respiratory distress transferred by paramedics to [place] emergency room. I received a call that the patient has bilateral pneumonia and severely dehydrated. After initial evaluation in the emergency room in [facility] and the patient receiving fluid challenge, Zosyn, and vancomycin, the patient is transferred to [facility] for further management. 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 MEDICATIONS LIST: When the patient was discharged in June 2018 included Tylenol, albuterol, Norvasc, Eliquis, aspirin, erythromycin for gastroparesis, hydralazine for blood pressure, insulin in the form of NovoLog for sliding scale, Prevacid, Keppra for seizures, Carafate, and Ultram. PHYSICAL EXAMINATION: GENERAL: At this time, the patient is nonverbal. Eyes are closed. Appears rigid. Slightly pale. VITAL SIGNS: Temperature 99.6, respiratory rate is 19, and pulse rate is 89 with occasional irregular beats. Palpable. HEENT: The head is normocephalic. NECK: Rigid to all directions. Eyes are closed. LUNGS: Poor inspiratory effort. Decreased breath sound over the bases. Heart mainly liver regular. ABDOMEN: Slightly distended. GT tube in place. EXTREMITIES: Left [id number] amputation. There is stasis and poor circulation over the right lower extremity seen. LABORATORY DATA: Laboratory data from [place] shows a BUN of 137 and hemoglobin of 10. Sodium of 151, creatinine of 3, troponin of 0.18, and glucose of 234. A chest x-ray with bilateral infiltrates. IMPRESSION: 1. Aspiration pneumonia. 2. Acute renal failure. 3. Underlying chronic renal failure. 4. Dehydration leading to hypernatremia. 5. Diabetes mellitus, out of control. 6. Elevated troponin. 7. Other condition mentioned in the past history. PLAN: At this point, continue the patient on free water administration. Monitor blood sugar and sliding scale insulin. Continue vancomycin and Zosyn. We will check chest x-ray, monitor troponin, and monitor renal parameters. Try to avoid nephrotoxics. Breathing treatments. Gastric support and according to how the patient's condition evolves, we will make the proper changes in our future management. Estevan Orozco M.D. DR: PRISCILA JOB#: [id number] CC:
[2018-09-02] VITALS: BP_SYST 104; BP_SYST 118; BP_DIAS 54; BP_DIAS 69
[2018-09-02] MEDS: Erythromycin Ethylsuccinate 200mg/5ml Susp GT SCH ×5 (00:13→23:37)
[2018-09-02] MEDS: NovoLOG Insulin Flexpen SUBQ SCH ×5 (00:14→23:39)
[2018-09-02] MEDS: traMADol 50mg tab GT SCH ×6 (03:55→19:05)
[2018-09-02 04:00] VITALS: BP 128/54
[2018-09-02 05:17] LABS: HEMATOCRIT 25.8 % (37.0-47.0); HEMOGLOBIN 8.1 G/DL (12.0-16.0); MEAN CORPUSCULAR VOLUME 106 FL (80-99); PLATELET COUNT 97 K/UL (150-450); RED BLOOD COUNT 2.44 M/UL (4.20-5.40); RED CELL DISTRIBUTION WIDTH 14.1 % (11.6-14.8); WHITE BLOOD COUNT 7.2 K/UL (4.8-10.8)
[2018-09-02 05:30] LABS: INR 1.1 (0.9-1.1)
[2018-09-02 05:41] LABS: ALANINE AMINOTRANSFERASE 15 U/L (12-78); ALBUMIN 2.6 G/DL (3.4-5.0); ALBUMIN/GLOBULIN RATIO 0.4 (1.0-2.7); ALKALINE PHOSPHATASE 72 U/L (46-116); ANION GAP 15 mmol/L (5-15); ASPARTATE AMINO TRANSFERASE 21 U/L (15-37); BILIRUBIN,TOTAL 0.4 MG/DL (0.2-1.0); BLOOD UREA NITROGEN 120 mg/dL (7-18); CALCIUM 7.9 MG/DL (8.5-10.1); CARBON DIOXIDE 20 MMOL/L (21-32); CHLORIDE 114 MMOL/L (98-107); CHOLESTEROL 120 MG/DL (< 200); CREATINE KINASE 844 U/L (26-308); CREATININE 2.9 MG/DL (0.55-1.30); GAMMA GLUTAMYL TRANSPEPTIDASE 20 U/L (5-85); HDL CHOLESTEROL 25 MG/DL (40-60); POTASSIUM 3.4 MMOL/L (3.5-5.1); SODIUM 149 MMOL/L (136-145); TRIGLYCERIDES 173 MG/DL (30-150)
--- NOTE | 2018-09-02 07:50 | NUR ---
HAND-OFF: Report given to Nguyễn SMITH.
--- NOTE | 2018-09-02 07:52 | NUR ---
NURSE NOTES: Received report from Tramaine/RN, Patient is asleep, No sign of distress/SOB noted at this time. Bed in low position, Call light within reach. Will continue plan of care.
[2018-09-02 08:00] VITALS: BP 111/67
--- NOTE | 2018-09-02 08:36 | NUR ---
RADIOLOGY DEPT., CHEST X-RAY DONE.-P.D
[2018-09-02] MEDS: Aspirin Baby 81mg GT SCH (09:00)
[2018-09-02] MEDS: Eliquis 2.5mg tablet GT SCH ×2 (09:00→18:00)
[2018-09-02] MEDS: Sucralfate 1gm tab GT SCH ×4 (09:39→20:24)
[2018-09-02] MEDS: levETIRAcetam 1,000mg/NS100ml 100 ML IVPB SCH ×2 (09:40→20:25)
[2018-09-02] MEDS: Pantoprazole Inj IVP SCH ×2 (09:40→20:25)
[2018-09-02] MEDS: Piperacillin/Tazobactam 3.375 GM in NS 110 ML IVPB SCH ×2 (09:42→21:46)
--- NOTE | 2018-09-02 10:17 | NUR ---
CASE MANAGEMENT:REVIEW 83 YR OLD FEMALE TRANSFERRED FROM [facility] D/T BILATERAL PNA AND DEHYDRATION SI: ASPIRATION PNA. ACUTE RENAL FAILURE DEHYDRATION . ELEVATED TROPONIN 97.5 84 20 125/59 99% ON 2L/NC H/H-8.1/25.8 PLT-97 BUN+120 CR+2.9 TROPONIN(+) 0.117 IS: IVF@100/HR IV KEPPRA Q12 IV ZOSYN Q12 ELIQUIS GT BID K-DUR GT QD NORVASC GT QD ASA GT QD ERYTHROMYCIN GT Q6HRS : DIRECTLY ADMITTED TO TELEMETRY INTERQUAL CRITERIA MET
--- NOTE | 2018-09-02 11:16 | Diagnostic Imaging Report ---
Indication: Cough Comparison: 06/08/2018 A single view chest radiograph was obtained. Findings: Lungs are essentially clear. Borderline cardiomegaly and mild calcification of the aorta noted. Bones are osteopenic. IMPRESSION: No acute disease
--- NOTE | 2018-09-02 11:25 | NUR ---
RD ASSESSMENT & RECOMMENDATIONS SEE CARE ACTIVITY FOR COMPLETE ASSESSMENT DAILY ESTIMATED NEEDS: Needs based on DM, Wounds (Adj wt 58.5kg) 25-30 kcals/kg 4567-8473 total kcals 1.25-1.5 g protein/kg 73-88 g total protein 25-30 mL/kg 3165-2223 total fluid mLs NUTRITION DIAGNOSIS: 1) Swallowing difficulty r/t dysphagia as evidenced by pt is PEG dep, NPO at this time. 2) Increased protein, micronutrient needs r/t wound healing as evidenced by sacral open wound per photo, pending eval CURRENT TF:NPO ENTERAL NUTRITION RECOMMENDATIONS: Glucerna 1.2 @ 60ml/hr x 24 hrs to provide 1440ml, 1728kcal, 86g prot , 1159ml free water - As medically appropriate, initiate TF on Glucerna 1.2 @ 20ml/hr x 6 hrs - Advance 10ml q 4-6 hrs as tolerated to goal rate of 60mlx 24 hrs - HOB over 30 degrees/ water flush per MD. 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
--- NOTE | 2018-09-02 11:30 | NUR ---
NURSE NOTES: Patient seen by wound nurse. Wound cleaned and changed.
[2018-09-02 12:00] VITALS: BP 135/64
--- NOTE | 2018-09-02 13:20 | Infectious Diseases Prog Note ---
Assessment/Plan Problems: (1) Bacteremia Assessment & Plan: with gram positive cocci , staph VS strep , grew out of two blood culture at [facility], will start zyvox pending sensitivity (2) Aspiration pneumonia Assessment & Plan: continue zosyn empirically for 8 days , send sputum culture , aspiration precaution, Keep HOB . 30 degree (3) Sacral decubitus ulcer Assessment & Plan: not infected, continue local wound care and dressings change as per hospital protocol (4) UTI (urinary tract infection) Assessment & Plan: will send urine culture to confirm, she is on zosyn already (5) Diabetes Assessment & Plan: recommend tight glycemic control to keep blood glucose between 100-130 (6) CKD (chronic kidney disease) Assessment & Plan: now worse , suspect dehydration, continue ivf for hydration , and renally dosed meds, nephrology is following Subjective Allergies: Coded Allergies: METOCLOPRAMIDE (Verified Allergy, Unknown, 03/10/18) extrapyramidal Sx Objective Vital Signs Last 24 Hour Vital Signs Date Time Temp Pulse Resp B/P (MAP) Pulse Ox O2 Delivery O2 Flow Rate FiO2 09/02/18 10:10 98.0 09/02/18 09:39 89 111/67 09/02/18 08:00 98.0 89 20 111/67 (82) 97 09/02/18 04:00 90 09/02/18 04:00 98.9 98 20 128/54 (78) 96 09/02/18 00:00 81 09/02/18 00:00 98.7 90 20 118/54 (75) 95 09/01/18 21:00 Nasal Cannula 2.0 09/01/18 20:14 Nasal Cannula 2.0 28 09/01/18 20:00 98.1 77 18 182/85 (117) 97 09/01/18 20:00 85 09/01/18 17:33 125/59 09/01/18 16:00 83 09/01/18 14:26 Nasal Cannula 2.0 09/01/18 13:30 97.5 84 20 125/59 (81) 99 Height (Feet): 5 Height (Inches): 6.00 Weight (Pounds): 154 Microbiology Date/Time Source Procedure Growth Status 09/01/18 20:00 Rectum Received Laboratory Tests Test 09/01/18 20:00 09/02/18 05:05 09/02/18 06:05 09/02/18 07:40 Urine Color Pale yellow Urine Appearance Slightly cloudy Urine pH 5 (4.5-8.0) Urine Specific [place] 1.010 (1.005-1.035) Urine Protein 3+ (NEGATIVE) H Urine Glucose (UA) Negative (NEGATIVE) Urine Ketones Negative (NEGATIVE) Urine Blood 5+ (NEGATIVE) H Urine Nitrite Negative (NEGATIVE) Urine Bilirubin Negative (NEGATIVE) Urine Urobilinogen Normal MG/DL (0.0-1.0) Urine Leukocyte Esterase Negative (NEGATIVE) Urine RBC 5-10 /HPF (0 - 2) H Urine WBC 2-4 /HPF (0 - 2) Urine Squamous Epithelial Cells Moderate /LPF (NONE/OCC) H Urine Amorphous Sediment Moderate /LPF (NONE) H Urine Bacteria Moderate /HPF (NONE) H Urine Random Sodium 48 mmol/L (20-110) White Blood Count 7.2 K/UL (4.8-10.8) Red Blood Count 2.44 M/UL (4.20-5.40) L Hemoglobin 8.1 G/DL (12.0-16.0) L Hematocrit 25.8 % (37.0-47.0) L Mean Corpuscular Volume 106 FL (80-99) H Mean Corpuscular Hemoglobin 33.0 PG (27.0-31.0) H Mean Corpuscular Hemoglobin Concent 31.2 G/DL (32.0-36.0) L Red Cell Distribution Width 14.1 % (11.6-14.8) Platelet Count 97 K/UL (150-450) L Mean Platelet Volume 10.0 FL (6.5-10.1) Neutrophils (%) (Auto) % (45.0-75.0) Lymphocytes (%) (Auto) % (20.0-45.0) Monocytes (%) (Auto) % (1.0-10.0) Eosinophils (%) (Auto) % (0.0-3.0) Basophils (%) (Auto) % (0.0-2.0) Differential Total Cells Counted 100 Neutrophils % (Manual) 57 % (45-75) Lymphocytes % (Manual) 38 % (20-45) Monocytes % (Manual) 2 % (1-10) Eosinophils % (Manual) 3 % (0-3) Basophils % (Manual) 0 % (0-2) Band Neutrophils 0 % (0-8) Platelet Estimate Decreased L Platelet Morphology Normal Hypochromasia 2+ Anisocytosis 1+ Macrocytosis 1+ Prothrombin Time 11.4 SEC (9.30-11.50) Prothromb Time International Ratio 1.1 (0.9-1.1) Activated Partial Thromboplast Time 28 SEC (23-33) Sodium Level 149 MMOL/L (136-145) H Potassium Level 3.4 MMOL/L (3.5-5.1) L Chloride Level 114 MMOL/L (98-107) H Carbon Dioxide Level 20 MMOL/L (21-32) L Anion Gap 15 mmol/L (5-15) Blood Urea Nitrogen 120 mg/dL (7-18) H Creatinine 2.9 MG/DL (0.55-1.30) H Estimat Glomerular Filtration Rate mL/min (>60) Glucose Level 187 MG/DL (74-106) H Hemoglobin A1c 6.3 % (4.3-6.0) H Lactic Acid Level 2.40 mmol/L (0.4-2.0) H 1.40 mmol/L (0.66-2.22) Uric Acid 10.7 MG/DL (2.6-7.2) H Calcium Level 7.9 MG/DL (8.5-10.1) L Phosphorus Level 5.0 MG/DL (2.5-4.9) H Magnesium Level 2.8 MG/DL (1.8-2.4) H Total Bilirubin 0.4 MG/DL (0.2-1.0) Gamma Glutamyl Transpeptidase 20 U/L (5-85) Aspartate Amino Transf (AST/SGOT) 21 U/L (15-37) Alanine Aminotransferase (ALT/SGPT) 15 U/L (12-78) Alkaline Phosphatase 72 U/L (46-116) Total Creatine Kinase 844 U/L (26-308) H Troponin I 0.117 ng/mL (0.000-0.056) C-Reactive Protein, Quantitative 39.3 mg/dL (0.00-0.90) H Pro-B-Type Natriuretic Peptide 1195 pg/mL (0-125) H Total Protein 8.5 G/DL (6.4-8.2) H Albumin 2.6 G/DL (3.4-5.0) L Globulin 5.9 g/dL Albumin/Globulin Ratio 0.4 (1.0-2.7) L Triglycerides Level 173 MG/DL (30-150) H Cholesterol Level 120 MG/DL (< 200) LDL Cholesterol 65 mg/dL (<100) HDL Cholesterol 25 MG/DL (40-60) L Cholesterol/HDL Ratio 4.8 (3.3-4.4) H Thyroid Stimulating Hormone (TSH) 1.116 uiU/mL (0.358-3.740) Cortisol AM Sample 10.5 UG/DL Random Vancomycin Level 13.6 ug/mL Urine Eosinophils None seen (NONE SEEN) Current Medications Medications (Trade) Dose Ordered Sig/Nancy Route PRN Reason Start Time Stop Time Status Last Admin Dose Admin Amlodipine Besylate (Norvasc) 10 mg DAILY GT 09/02/18 09:00 10/02/18 08:59 09/02/18 09:39 Apixaban (Eliquis) 2.5 mg BID GT 09/01/18 18:00 10/01/18 17:59 09/01/18 17:33 Aspirin (ASA) 81 mg DAILY GT 09/02/18 09:00 10/02/18 08:59 Dextrose 1,000 ml @ 150 mls/hr Q6H40M IV 09/02/18 10:00 10/01/18 09:59 Dextrose (Dextrose 50%) 25 ml Q30M PRN IV Hypoglycemia 09/01/18 17:15 10/01/18 17:14 Dextrose (Dextrose 50%) 50 ml Q30M PRN IV Hypoglycemia 09/01/18 17:15 10/01/18 17:14 Erythromycin (Erickson-Ped) 50 mg Q6HR GT 09/01/18 18:00 09/08/18 17:59 09/02/18 12:28 Hydralazine HCl (Apresoline) 25 mg Q4H PRN GT BP over 160 syst 09/01/18 15:00 10/01/18 14:59 Insulin Aspart (NovoLOG) Q6HR SUBQ 09/01/18 18:00 10/01/18 17:59 09/02/18 12:28 Levetiracetam 100 ml @ 400 mls/hr Q12HR IVPB 09/01/18 21:00 10/01/18 20:59 09/02/18 09:40 Nitroglycerin (Ntg) 1 patch Q24H TDERMAL 09/01/18 18:00 10/01/18 17:59 09/01/18 17:33 Ondansetron HCl (Zofran) 4 mg Q6H PRN IVP Nausea & Vomiting 09/01/18 15:00 10/01/18 14:59 Pantoprazole (Protonix) 40 mg EVERY 12 HOURS IVP 09/01/18 21:00 10/01/18 20:59 09/02/18 09:40 Piperacillin Sod/ Tazobactam Sod 3.375 gm/Sodium Chloride 110 ml @ 27.5 mls/hr EVERY 12 HOURS IVPB 09/01/18 21:00 09/06/18 20:59 09/02/18 09:42 Potassium Chloride (K-Dur) 40 meq DAILY GT 09/03/18 09:00 10/03/18 08:59 Sucralfate (Carafate) 1 gm FOUR TIMES A DAY GT 09/01/18 18:00 10/01/18 17:59 09/02/18 12:28 Tramadol HCl (Ultram) 25 mg Q6H GT 09/01/18 16:00 09/08/18 15:59 09/02/18 09:40 Ayala Forman M.D. Sep 02, 2018 13:20
[2018-09-02] MEDS ORDERED: Tubing IV Secondary IV ONE (15:01)
[2018-09-02] MEDS ORDERED: NS 275ml ONE ×2 (15:01)
--- NOTE | 2018-09-02 15:05 | NUR ---
NURSE NOTES: Dr. Dickson Cai is aware about her blood culture Gram positive cocci.
--- NOTE | 2018-09-02 15:58 | NUR ---
NURSE NOTES:WOUND CARE NOTES:Pt presented on admission with Full Thickness Sacral Pressure Injury. Base of wound has 75% pink granulation with scattered dry brown eschar (25%).Small amt of sanguineous exudate noted. Edges flat and adherent to base of wound. Darker Skin tone without erythema induration or fluctuance periwound.(L)7.5cm x (W)8.5cm. Erythema noted to perineum and medial aspects of both upper thighs. R heel dry and boggy with Hyperpigmentation from previous wound. Darker skin tone without fluctuance or induration noted to R hallux. 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 No other areas of Skin Breakdown noted. Recommendations:Cleanse Sacrum with Saline. Apply Therahoney to areas of Eschar in wound. Apply Triad paste to Viable areas of wound. Cover with Optifoam drsg. Change every 3 days and prn. Apply Cavilon Skin Barrier to R heel. Cover with Optifoam drsg. Change every 7 days and prn. APM/KALE Mattress overlay. Reposition at least every 2 hours or as tolerated. Off-load R heel with Pillow.
[2018-09-02 16:00] VITALS: BP 113/58
--- NOTE | 2018-09-02 16:37 | General Progress Note ---
Assessment/Plan Problem List: (1) Aspiration pneumonia ICD Codes: J69.0 - Pneumonitis due to inhalation of food and vomit SNOMED: 712628781 (2) Acute on chronic renal failure ICD Codes: N17.9 - Acute kidney failure, unspecified; N18.9 - Chronic kidney disease, unspecified SNOMED: 913879482 (3) Seizure disorder ICD Codes: G40.909 - Epilepsy, unspecified, not intractable, without status epilepticus SNOMED: 367580623 (4) Functional quadriplegia ICD Codes: R53.2 - Functional quadriplegia SNOMED: 860089795950344 (5) G tube feedings ICD Codes: Z93.1 - G tube feedings SNOMED: 077731163 (6) Diabetes ICD Codes: E11.9 - Type 2 diabetes mellitus without complications SNOMED: 58414376 (7) Anemia in CKD (chronic kidney disease) ICD Codes: N18.9 - Chronic kidney disease, unspecified; D63.1 - Anemia in chronic kidney disease SNOMED: 374026688 Status: unchanged Assessment/Plan: Millicent Shukla on board N Hydrate Monitor renal parameters per orders BP and BS check Subjective ROS Limited/Unobtainable: Yes Allergies: Coded Allergies: METOCLOPRAMIDE (Verified Allergy, Unknown, 03/10/18) extrapyramidal Sx Objective Last 24 Hour Vital Signs Date Time Temp Pulse Resp B/P (MAP) Pulse Ox O2 Delivery O2 Flow Rate FiO2 09/02/18 10:10 98.0 09/02/18 09:39 89 111/67 09/02/18 08:00 98.0 89 20 111/67 (82) 97 09/02/18 04:00 90 09/02/18 04:00 98.9 98 20 128/54 (78) 96 09/02/18 00:00 81 09/02/18 00:00 98.7 90 20 118/54 (75) 95 09/01/18 21:00 Nasal Cannula 2.0 09/01/18 20:14 Nasal Cannula 2.0 28 09/01/18 20:00 98.1 77 18 182/85 (117) 97 09/01/18 20:00 85 09/01/18 17:33 125/59 Intake and Output 09/01/18 09/02/18 19:00 07:00 Intake Total 100 ml 1493.0 ml Output Total 1100 ml Balance 100 ml 393.0 ml Intake Free Water 100 ml IV Total 100 ml 1393.0 ml Output Urine Total 1100 ml Laboratory Tests 09/01/18 20:00: Urine Color Pale yellow, Urine Appearance Slightly cloudy, Urine pH 5, Urine Specific [place] 1.010, Urine Protein 3+H, Urine Glucose (UA) Negative, Urine Ketones Negative, Urine Blood 5+H, Urine Nitrite Negative, Urine Bilirubin Negative, Urine Urobilinogen Normal, Urine Leukocyte Esterase Negative, Urine RBC 5-10H, Urine WBC 2-4, Urine Squamous Epithelial Cells ModerateH, Urine Amorphous Sediment ModerateH, Urine Bacteria ModerateH, Urine Random Sodium 48 09/02/18 05:05: White Blood Count 7.2, Red Blood Count 2.44L, Hemoglobin 8.1L, Hematocrit 25.8L , Mean Corpuscular Volume 106H, Mean Corpuscular Hemoglobin 33.0H, Mean Corpuscular Hemoglobin Concent 31.2L, Red Cell Distribution Width 14.1, Platelet Count 97L, Mean Platelet Volume 10.0, Neutrophils (%) (Auto) , Lymphocytes (%) (Auto) , Monocytes (%) (Auto) , Eosinophils (%) (Auto) , Basophils (%) (Auto) , Differential Total Cells Counted 100, Neutrophils % ( Manual) 57, Lymphocytes % (Manual) 38, Monocytes % (Manual) 2, Eosinophils % ( Manual) 3, Basophils % (Manual) 0, Band Neutrophils 0, Platelet Estimate DecreasedL, Platelet Morphology Normal, Hypochromasia 2+, Anisocytosis 1+, Macrocytosis 1+, Prothrombin Time 11.4, Prothromb Time International Ratio 1.1, Activated Partial Thromboplast Time 28, Sodium Level 149H, Potassium Level 3.4L , Chloride Level 114H, Carbon Dioxide Level 20L, Anion Gap 15, Blood Urea Nitrogen 120H, Creatinine 2.9H, Estimat Glomerular Filtration Rate , Glucose Level 187H, Hemoglobin A1c 6.3H, Lactic Acid Level 2.40H, Uric Acid 10.7H, Calcium Level 7.9L, Phosphorus Level 5.0H, Magnesium Level 2.8H, Total Bilirubin 0.4, Gamma Glutamyl Transpeptidase 20, Aspartate Amino Transf (AST/ SGOT) 21, Alanine Aminotransferase (ALT/SGPT) 15, Alkaline Phosphatase 72, Total Creatine Kinase 844H, Troponin I 0.117H, C-Reactive Protein, Quantitative 39.3H, Pro-B-Type Natriuretic Peptide 1195H, Total Protein 8.5H, Albumin 2.6L, Globulin 5.9, Albumin/Globulin Ratio 0.4L, Triglycerides Level 173H, Cholesterol Level 120, LDL Cholesterol 65, HDL Cholesterol 25L, Cholesterol/HDL Ratio 4.8H, Thyroid Stimulating Hormone (TSH) 1.116, Cortisol AM Sample 10.5, Random Vancomycin Level 13.6 09/02/18 06:05: Lactic Acid Level 1.40 09/02/18 07:40: Urine Eosinophils None seen Height (Feet): 5 Height (Inches): 6.00 Weight (Pounds): 154 General Appearance: no apparent distress Neck: limited range of motion Cardiovascular: normal rate Respiratory/Chest: decreased breath sounds Abdomen: distended, other - PEG Estevan Orozco MD Sep 02, 2018 16:37
--- NOTE | 2018-09-02 18:00 | NUR ---
NURSE NOTES: Dr. Orozco is aware of Wound nurse recommendation.
--- NOTE | 2018-09-02 18:35 | Consultation ---
History of Present Illness General Date patient seen: Sep 02, 2018 Reason for Consultation: wound care and eval Present Illness HPI 83F well known to me from prior admissions, surgery, and usp post op visits. was in usp but declining and [place] [facility] [place] labs and pneumonia. on admission noted to have multiple wounds requiring care. surgery called to evaluate and assist with care and management. patient seen, chart reviewed, patient examined. Allergies: Coded Allergies: METOCLOPRAMIDE (Verified Allergy, Unknown, 03/10/18) extrapyramidal Sx Medication History Scheduled Acetaminophen* (Tylenol Extra Strength*), 1,000 MG GT DAILY, (Reported) Amlodipine Besylate (Norvasc), 10 MG GT DAILY, (Reported) Apixaban (Eliquis), 2.5 MG GT BID, (Reported) Aspirin* (Aspir 81*), 81 MG GT DAILY, (Reported) Cranberry Fruit (Cranberry), 450 MG GT DAILY, (Reported) Diphenhydramine Hcl* (Diphenhydramine Hcl*), 25 MG GT Q8H, (Reported) Erickson E-Succ/Sulfisoxazole (Erythromycin-Sulfisox Susp), 50 MG GT Q6HR Insulin Detemir (Levemir Flexpen), 20 UNITS SUBQ BID Levetiracetam (Keppra), 1,000 MG GT Q12HR Levofloxacin* (Levaquin*), 500 MG GT DAILY Multivitamin With Minerals (Multivitamins With Minerals*), 1 TAB GT DAILY, ( Reported) Mupirocin (Mupirocin), 1 APPLIC TOPIC THREE TIMES A DAY Nateglinide (Starlix), 120 MG GT Q8HR, (Reported) Pantoprazole Sodium (Protonix), 40 MG GT DAILY, (Reported) Polyethylene Glycol 3350* (Miralax*), 17 GM GT DAILY, (Reported) Sucralfate* (Carafate*), 1 GM GT BID Tramadol Hcl* (Ultram*), 25 MG GT Q8HR, (Reported) Scheduled PRN Acetaminophen* (Acetaminophen 325MG Tablet*), 650 MG GT Q4H PRN for Mild Pain/ Temp > 100.5, (Reported) Patient History Limited by: medical condition History Provided By: Medical Record, PMD Healthcare decision maker N Resuscitation status Full Code Advanced Directive on File Past Medical/Surgical History Past Medical/Surgical History: (1) Extrapyramidal reaction (2) Coagulase negative Staphylococcus bacteremia (3) Gastroparesis due to DM (4) Sacral decubitus ulcer (5) Acute on chronic renal failure (6) Anemia in CKD (chronic kidney disease) (7) Bacteremia (8) DVT (deep vein thrombosis) in (9) Sepsis (10) Osteomyelitis of ankle or foot, left, acute (11) Vomiting (12) Healthcare-associated pneumonia (13) Right hemiparesis (14) Aspiration pneumonia (15) Diabetes (16) Dementia (17) CKD (chronic kidney disease) (18) Seizure disorder (19) Functional quadriplegia (20) G tube feedings (21) Sacral decubitus ulcer, stage III (22) Malfunction of gastrostomy tube (23) Gastroparesis (24) Anemia (25) UTI (urinary tract infection) (26) GI bleed (27) Epileptic seizure, generalized Review of Systems ROS Narrative cannot obtain given medical condition Physical Exam General Appearance: no apparent distress Lines, tubes and drains: peripheral HEENT: mucous membranes moist Neck: normal inspection Respiratory/Chest: no respiratory distress, decreased breath sounds Cardiovascular/Chest: regular rhythm Abdomen: soft, no organomegaly, no mass, feeding tube Extremities: other Skin Exam: warm/dry Neurologic: unresponsiveness Last 24 Hour Vital Signs Date Time Temp Pulse Resp B/P (MAP) Pulse Ox O2 Delivery O2 Flow Rate FiO2 09/02/18 12:00 97.3 81 20 135/64 (87) 93 09/02/18 10:10 98.0 09/02/18 09:39 89 111/67 09/02/18 09:00 Nasal Cannula 2.0 09/02/18 08:00 98.0 89 20 111/67 (82) 97 09/02/18 04:00 90 09/02/18 04:00 98.9 98 20 128/54 (78) 96 09/02/18 00:00 81 09/02/18 00:00 98.7 90 20 118/54 (75) 95 09/01/18 21:00 Nasal Cannula 2.0 09/01/18 20:14 Nasal Cannula 2.0 28 09/01/18 20:00 98.1 77 18 182/85 (117) 97 09/01/18 20:00 85 Intake and Output 09/01/18 09/02/18 19:00 07:00 Intake Total 100 ml 1493.0 ml Output Total 1100 ml Balance 100 ml 393.0 ml Intake Free Water 100 ml IV Total 100 ml 1393.0 ml Output Urine Total 1100 ml Laboratory Tests Test 09/01/18 20:00 09/02/18 05:05 09/02/18 06:05 09/02/18 07:40 Urine Color Pale yellow Urine Appearance Slightly cloudy Urine pH 5 (4.5-8.0) Urine Specific [place] 1.010 (1.005-1.035) Urine Protein 3+ (NEGATIVE) H Urine Glucose (UA) Negative (NEGATIVE) Urine Ketones Negative (NEGATIVE) Urine Blood 5+ (NEGATIVE) H Urine Nitrite Negative (NEGATIVE) Urine Bilirubin Negative (NEGATIVE) Urine Urobilinogen Normal MG/DL (0.0-1.0) Urine Leukocyte Esterase Negative (NEGATIVE) Urine RBC 5-10 /HPF (0 - 2) H Urine WBC 2-4 /HPF (0 - 2) Urine Squamous Epithelial Cells Moderate /LPF (NONE/OCC) H Urine Amorphous Sediment Moderate /LPF (NONE) H Urine Bacteria Moderate /HPF (NONE) H Urine Random Sodium 48 mmol/L (20-110) White Blood Count 7.2 K/UL (4.8-10.8) Red Blood Count 2.44 M/UL (4.20-5.40) L Hemoglobin 8.1 G/DL (12.0-16.0) L Hematocrit 25.8 % (37.0-47.0) L Mean Corpuscular Volume 106 FL (80-99) H Mean Corpuscular Hemoglobin 33.0 PG (27.0-31.0) H Mean Corpuscular Hemoglobin Concent 31.2 G/DL (32.0-36.0) L Red Cell Distribution Width 14.1 % (11.6-14.8) Platelet Count 97 K/UL (150-450) L Mean Platelet Volume 10.0 FL (6.5-10.1) Neutrophils (%) (Auto) % (45.0-75.0) Lymphocytes (%) (Auto) % (20.0-45.0) Monocytes (%) (Auto) % (1.0-10.0) Eosinophils (%) (Auto) % (0.0-3.0) Basophils (%) (Auto) % (0.0-2.0) Differential Total Cells Counted 100 Neutrophils % (Manual) 57 % (45-75) Lymphocytes % (Manual) 38 % (20-45) Monocytes % (Manual) 2 % (1-10) Eosinophils % (Manual) 3 % (0-3) Basophils % (Manual) 0 % (0-2) Band Neutrophils 0 % (0-8) Platelet Estimate Decreased L Platelet Morphology Normal Hypochromasia 2+ Anisocytosis 1+ Macrocytosis 1+ Prothrombin Time 11.4 SEC (9.30-11.50) Prothromb Time International Ratio 1.1 (0.9-1.1) Activated Partial Thromboplast Time 28 SEC (23-33) Sodium Level 149 MMOL/L (136-145) H Potassium Level 3.4 MMOL/L (3.5-5.1) L Chloride Level 114 MMOL/L (98-107) H Carbon Dioxide Level 20 MMOL/L (21-32) L Anion Gap 15 mmol/L (5-15) Blood Urea Nitrogen 120 mg/dL (7-18) H Creatinine 2.9 MG/DL (0.55-1.30) H Estimat Glomerular Filtration Rate mL/min (>60) Glucose Level 187 MG/DL (74-106) H Hemoglobin A1c 6.3 % (4.3-6.0) H Lactic Acid Level 2.40 mmol/L (0.4-2.0) H 1.40 mmol/L (0.66-2.22) Uric Acid 10.7 MG/DL (2.6-7.2) H Calcium Level 7.9 MG/DL (8.5-10.1) L Phosphorus Level 5.0 MG/DL (2.5-4.9) H Magnesium Level 2.8 MG/DL (1.8-2.4) H Total Bilirubin 0.4 MG/DL (0.2-1.0) Gamma Glutamyl Transpeptidase 20 U/L (5-85) Aspartate Amino Transf (AST/SGOT) 21 U/L (15-37) Alanine Aminotransferase (ALT/SGPT) 15 U/L (12-78) Alkaline Phosphatase 72 U/L (46-116) Total Creatine Kinase 844 U/L (26-308) H Troponin I 0.117 ng/mL (0.000-0.056) C-Reactive Protein, Quantitative 39.3 mg/dL (0.00-0.90) H Pro-B-Type Natriuretic Peptide 1195 pg/mL (0-125) H Total Protein 8.5 G/DL (6.4-8.2) H Albumin 2.6 G/DL (3.4-5.0) L Globulin 5.9 g/dL Albumin/Globulin Ratio 0.4 (1.0-2.7) L Triglycerides Level 173 MG/DL (30-150) H Cholesterol Level 120 MG/DL (< 200) LDL Cholesterol 65 mg/dL (<100) HDL Cholesterol 25 MG/DL (40-60) L Cholesterol/HDL Ratio 4.8 (3.3-4.4) H Thyroid Stimulating Hormone (TSH) 1.116 uiU/mL (0.358-3.740) Cortisol AM Sample 10.5 UG/DL Random Vancomycin Level 13.6 ug/mL Urine Eosinophils None seen (NONE SEEN) Microbiology Date/Time Source Procedure Growth Status 09/01/18 20:00 Rectum Received Height (Feet): 5 Height (Inches): 6.00 Weight (Pounds): 154 Medications Current Medications Medications (Trade) Dose Ordered Sig/Nancy Route PRN Reason Start Time Stop Time Status Last Admin Dose Admin Amlodipine Besylate (Norvasc) 5 mg DAILY GT 09/03/18 09:00 10/02/18 08:59 Apixaban (Eliquis) 2.5 mg BID GT 09/02/18 18:00 10/01/18 17:59 Aspirin (ASA) 81 mg DAILY GT 09/02/18 09:00 10/02/18 08:59 Dextrose 1,000 ml @ 150 mls/hr Q6H40M IV 09/02/18 10:00 10/01/18 09:59 09/02/18 17:18 Dextrose (Dextrose 50%) 25 ml Q30M PRN IV Hypoglycemia 09/01/18 17:15 10/01/18 17:14 Dextrose (Dextrose 50%) 50 ml Q30M PRN IV Hypoglycemia 09/01/18 17:15 10/01/18 17:14 Erythromycin (Erickson-Ped) 50 mg Q6HR GT 09/01/18 18:00 09/08/18 17:59 09/02/18 12:28 Hydralazine HCl (Apresoline) 25 mg Q4H PRN GT BP over 160 syst 09/01/18 15:00 10/01/18 14:59 Insulin Aspart (NovoLOG) Q6HR SUBQ 09/01/18 18:00 10/01/18 17:59 09/02/18 17:22 Levetiracetam 100 ml @ 400 mls/hr Q12HR IVPB 09/01/18 21:00 10/01/18 20:59 09/02/18 09:40 Linezolid 300 ml @ 300 mls/hr Q12HR IVPB 09/02/18 21:00 09/09/18 20:59 Nitroglycerin (Ntg) 1 patch Q24H TDERMAL 09/01/18 18:00 10/01/18 17:59 09/01/18 17:33 Ondansetron HCl (Zofran) 4 mg Q6H PRN IVP Nausea & Vomiting 09/01/18 15:00 10/01/18 14:59 Pantoprazole (Protonix) 40 mg EVERY 12 HOURS IVP 09/01/18 21:00 10/01/18 20:59 09/02/18 09:40 Piperacillin Sod/ Tazobactam Sod 3.375 gm/Sodium Chloride 110 ml @ 27.5 mls/hr EVERY 12 HOURS IVPB 09/01/18 21:00 09/06/18 20:59 09/02/18 09:42 Potassium Chloride (K-Dur) 40 meq DAILY GT 09/03/18 09:00 10/03/18 08:59 Sucralfate (Carafate) 1 gm FOUR TIMES A DAY GT 09/01/18 18:00 10/01/18 17:59 09/02/18 12:28 Tramadol HCl (Ultram) 25 mg Q6H GT 09/01/18 16:00 09/08/18 15:59 09/02/18 17:47 Assessment/Plan Problem List: (1) Sacral decubitus ulcer Assessment & Plan: Pt presented on admission with Full Thickness Sacral Pressure Injury. Base of wound has 75% pink granulation with scattered dry brown eschar (25%).Small amt of sanguineous exudate noted. Edges flat and adherent to base of wound. Darker Skin tone without erythema induration or fluctuance periwound.(L)7.5cm x (W)8.5cm. Erythema noted to perineum and medial aspects of both upper thighs. R heel dry and boggy with Hyperpigmentation from previous wound. Darker skin tone without fluctuance or induration noted to R hallux. 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 No other areas of Skin Breakdown noted. Treatment plan: Cleanse Sacrum with Saline. Apply Therahoney to areas of Eschar in wound. Apply Triad paste to Viable areas of wound. Cover with Optifoam drsg. Change every 3 days and prn. Apply Cavilon Skin Barrier to R heel. Cover with Optifoam drsg. Change every 7 days and prn. APM/KALE Mattress overlay. Reposition at least every 2 hours or as tolerated. Off-load R heel with Pillow. 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; K31.84 - Gastroparesis SNOMED: 020639297 (6) Coagulase negative Staphylococcus bacteremia ICD Codes: R78.81 - Bacteremia SNOMED: 204096663548, 569368515876455 (7) Extrapyramidal reaction ICD Codes: G25.9 - Extrapyramidal and movement disorder, unspecified SNOMED: 27799641 (8) DVT (deep vein thrombosis) in ICD Codes: O22.30 - Deep phlebothrombosis in , unspecified trimester; I82.409 - Acute embolism and thrombosis of unspecified deep veins of unspecified lower extremity SNOMED: 22681469 (9) Sepsis ICD Codes: A41.9 - Sepsis SNOMED: 38500117 (10) Osteomyelitis of ankle or foot, left, acute ICD Codes: M86.172 - Other acute osteomyelitis, left ankle and foot SNOMED: 926348121 (11) Vomiting ICD Codes: R11.10 - Vomiting, unspecified SNOMED: 407474559 (12) Healthcare-associated pneumonia ICD Codes: J18.9 - Pneumonia, unspecified organism SNOMED: 721145005 (13) Right hemiparesis ICD Codes: G81.90 - Hemiplegia, unspecified affecting unspecified side SNOMED: 893640405 (14) Aspiration pneumonia Assessment & Plan: will need to monitor feeds to eval for aspiration cxr noted abx as per ID cont with current care will follow with recs. thank you ICD Codes: J69.0 - Pneumonitis due to inhalation of food and vomit SNOMED: 576564616 (15) Diabetes ICD Codes: E11.9 - Type 2 diabetes mellitus without complications SNOMED: 11506405 (16) Dementia ICD Codes: F03.90 - Dementia SNOMED: 75781147 (17) CKD (chronic kidney disease) ICD Codes: N18.9 - Chronic kidney disease, unspecified SNOMED: 114897482 (18) Seizure disorder ICD Codes: G40.909 - Epilepsy, unspecified, not intractable, without status epilepticus SNOMED: 991316257 (19) Functional quadriplegia ICD Codes: R53.2 - Functional quadriplegia SNOMED: 367569136216369 (20) G tube feedings ICD Codes: Z93.1 - G tube feedings SNOMED: 747483378 (21) Sacral decubitus ulcer, stage III ICD Codes: L89.153 - Pressure ulcer of sacral region, stage 3 SNOMED: 015620494, 004815966 (22) Malfunction of gastrostomy tube ICD Codes: K94.23 - Gastrostomy malfunction SNOMED: 345598268 (23) Gastroparesis ICD Codes: K31.84 - Gastroparesis SNOMED: 907889972 (24) Anemia ICD Codes: D64.9 - Anemia, unspecified SNOMED: 692246306 (25) UTI (urinary tract infection) (26) GI bleed ICD Codes: K92.2 - Gastrointestinal hemorrhage, unspecified SNOMED: 25725983 (27) Epileptic seizure, generalized ICD Codes: G40.309 - Generalized idiopathic epilepsy and epileptic syndromes, not intractable, without status epilepticus SNOMED: 68309268 Taco Carter Sep 02, 2018 18:34
[2018-09-02] MEDS: Nitroglycerin Patch 0.4mg TDERMAL SCH (18:55)
--- NOTE | 2018-09-02 19:56 | NUR ---
NURSE NOTES: RECEIVED PATIENT RESTING IN BED, NON VERBAL. FALL AND ASPIRATION PRECAUTIONS IN PLACE: CALL LIGHT WITHIN REACH AND BED IN LOW POSITION, HOB ELEVATED. WILL CONTINUE WITH PLAN OF CARE.
--- NOTE | 2018-09-02 19:57 | NUR ---
HAND-OFF: Report given to Nya/RN, No distress/SOB noted, Patient is in stable condition. Endorsed plan of care.
[2018-09-02 20:00] VITALS: BP 128/49
[2018-09-03] VITALS: BP 130/52
--- NOTE | 2018-09-03 03:00 | Consultation ---
DATE OF CONSULTATION: 09/02/2018 INFECTIOUS DISEASE CONSULTATION CONSULTING PHYSICIAN: Ayala Forman M.D. REQUESTING PHYSICIAN: Estevan Orozco M.D. REASON FOR CONSULTATION: Bacteremia with gram-positive cocci and aspiration pneumonia. Recommendation for antibiotics treatment. HISTORY OF PRESENT ILLNESS: The patient is an 83-year-old female with past medical history of diabetes, DVT, sepsis, urinary tract infection, left foot osteo status post above knee amputation, seizure disorder, dementia, dysphagia, status post G-tube placement, and quadriplegia, who is a resident of [facility], was found to be hypoxemic and in respiratory distress last night and was transferred via paramedics to [facility], which [facility]. The patient was found to have pneumonia and was severely dehydrated. After she was evaluated in the emergency room at [facility], the patient was started on fluid, Zosyn, and vancomycin, and subsequently was transferred to [facility] for continuation of care and further management and Infectious Disease consultation was requested for antibiotics treatment and further management since her blood culture at [facility] was growing gram-positive cocci out of 2 sets, which is concerning for sepsis. As of note, the patient is a poor historian and cannot provide any history. History was mainly obtained from the medical record. PAST MEDICAL HISTORY: Significant for diabetes, DVT, sepsis, urinary tract infection, left foot osteomyelitis, status post dwdvy-hny-vpje amputation of the left leg, pneumonia, seizure dementia, dysphagia, and quadriplegia. PAST SURGICAL HISTORY: She had G-tube placement and left leg [id number]-[id number] amputation. MEDICATIONS: The patient is getting Zosyn currently in the hospital and she received previously vancomycin. For the rest of her medications, please refer to MAR. ALLERGIES: She is allergic to metoclopramide. SOCIAL HISTORY: The patient lives at [facility]. She is disabled. No recent drugs, tobacco, or alcohol. REVIEW OF SYSTEMS: Unable to obtain. The patient is a poor historian and cannot provide any history. PHYSICAL EXAMINATION: VITAL SIGNS: Temperature 98, pulse 89, respirations 20, blood pressure 111/67, and saturation 97% on 2 L nasal cannula. GENERAL: An elderly female, up in bed, awake, and responsive, quadriplegic, and not in distress. HEENT: Normocephalic and atraumatic. Pupils are reactive to light. Dry oral mucosa with dry tongue, which remains outside most of the time. No lip ulcers. NECK: Supple. No lymphadenopathy. CARDIOVASCULAR: Regular rate and rhythm. No murmur or gallop. No rubs. LUNGS: She had diminished breathing sounds at the bases with crackles. Normal breathing efforts. ABDOMEN: Soft. Morbidly obese, not distended. No organomegaly. No ascites. G-tube site looks intact. No draining or infection. EXTREMITIES: She had left gewtv-ueg-hyol amputation. Stump wound looks scarred. Healed well. Trace edema. No cyanosis. SKIN: She had sacral pressure wound not infected. LABORATORY DATA: Labs showed white count of 7.2, hemoglobin of 8.1, and platelet count of 97,000. BUN of 120, creatinine of 2.9, and sodium of 149. Lactic acid of 2.4. Urinalysis showed moderate amount of bacteria, negative leukocyte esterase, and negative nitrite. Vancomycin random level 13.6. MICROBIOLOGY: Two blood cultures at [facility] grew gram-positive cocci with identification pending. IMAGING: Chest x-ray here showed clear lungs, no acute disease. ASSESSMENT AND RECOMMENDATION: 1. Bacteremia with gram-positive cocci, suspect Staph versus strep, grew out of 2 blood cultures at [facility]. We will start Zyvox empiric coverage for now pending sensitivity and identification from [facility]. We will obtain blood culture x2 to confirm. 2. Aspiration pneumonia, suspect due to alteration in her mental status with respiratory distress. Continue Zosyn empirically for eight days. Send sputum culture. Aspiration precaution. Keep the head of bed more than 30-degree all the time. 3. Sacral decubitus ulcer. Not infected. Continue local wound care and dressing change as per hospital protocol. 4. Urinary tract infection. Send urine culture to confirm. She is on Zosyn already. 5. Diabetes. Recommend tight glycemic control to keep blood glucose between 100 to 130. 6. Chronic kidney disease, now worsened, suspect dehydration related and possible sepsis. Continue IV fluid for hydration and renally dosed medicine. Avoid nephrotoxics. Nephrology is following. Thank you for the consult. ID will continue to follow. Ayala Forman M.D. DR: FRANSICO JOB#: [id number] CC:
[2018-09-03 04:00] VITALS: BP 156/62
[2018-09-03] MEDS: NovoLOG Insulin Flexpen SUBQ SCH ×3 (05:31→17:40)
[2018-09-03] MEDS: Erythromycin Ethylsuccinate 200mg/5ml Susp GT SCH ×3 (05:32→17:33)
--- NOTE | 2018-09-03 07:16 | NUR ---
HAND-OFF: Report given to LUIS CALHOUN. PATIENT ASLEEP, NO SIGNS OF DISTRESS NOTED.
--- NOTE | 2018-09-03 07:17 | NUR ---
NURSE NOTES: Received report from Nya/RN. Patient is asleep, No distress/SOB noted at this time. Bed in low position, Call light within reach. Will continue plan of care.
[2018-09-03 08:00] VITALS: BP 166/69
[2018-09-03] MEDS: Eliquis 2.5mg tablet GT SCH ×3 (09:00→17:31)
[2018-09-03] MEDS: Aspirin Baby 81mg GT SCH ×2 (09:00→10:49)
[2018-09-03 09:11] LABS: HEMATOCRIT 21.2 % (37.0-47.0); MEAN CORPUSCULAR VOLUME 103 FL (80-99); PLATELET COUNT 93 K/UL (150-450); RED BLOOD COUNT 2.06 M/UL (4.20-5.40); RED CELL DISTRIBUTION WIDTH 13.3 % (11.6-14.8); WHITE BLOOD COUNT 6.9 K/UL (4.8-10.8)
[2018-09-03 09:13] LABS: HEMOGLOBIN 6.9 G/DL (12.0-16.0)
[2018-09-03 09:34] LABS: % IRON SATURATION 11 % (15-50); IRON 20 ug/dL (50-175); TOTAL IRON BINDING CAPACITY 188 ug/dL (250-450)
[2018-09-03 09:35] LABS: ALANINE AMINOTRANSFERASE 17 U/L (12-78); ALBUMIN 2.3 G/DL (3.4-5.0); ALBUMIN/GLOBULIN RATIO 0.4 (1.0-2.7); ALKALINE PHOSPHATASE 62 U/L (46-116); ANION GAP 14 mmol/L (5-15); ASPARTATE AMINO TRANSFERASE 18 U/L (15-37); BILIRUBIN,TOTAL 0.3 MG/DL (0.2-1.0); BLOOD UREA NITROGEN 93 mg/dL (7-18); CALCIUM 7.5 MG/DL (8.5-10.1); CARBON DIOXIDE 18 MMOL/L (21-32); CHLORIDE 107 MMOL/L (98-107); CREATININE 2.7 MG/DL (0.55-1.30); PHOSPHORUS 4.1 MG/DL (2.5-4.9); POTASSIUM 3.6 MMOL/L (3.5-5.1); SODIUM 139 MMOL/L (136-145)
[2018-09-03] MEDS: Pantoprazole Inj IVP SCH ×2 (09:44→22:28)
[2018-09-03] MEDS: levETIRAcetam 1,000mg/NS100ml 100 ML IVPB SCH ×2 (09:44→22:24)
[2018-09-03] MEDS: traMADol 50mg tab GT SCH ×3 (09:46→22:24)
[2018-09-03] MEDS: Sucralfate 1gm tab GT SCH ×4 (09:46→22:27)
[2018-09-03] MEDS: Piperacillin/Tazobactam 3.375 GM in NS 110 ML IVPB SCH ×2 (09:48→10:47)
[2018-09-03 09:53] LABS: CREATINE KINASE 465 U/L (26-308); GAMMA GLUTAMYL TRANSPEPTIDASE 21 U/L (5-85)
[2018-09-03 10:28] LABS: FERRITIN 1592 NG/ML (8-388)
[2018-09-03 12:00] VITALS: BP 116/56
--- NOTE | 2018-09-03 12:45 | General Progress Note ---
Assessment/Plan Problem List: (1) Aspiration pneumonia ICD Codes: J69.0 - Pneumonitis due to inhalation of food and vomit SNOMED: 035104886 (2) Acute on chronic renal failure ICD Codes: N17.9 - Acute kidney failure, unspecified; N18.9 - Chronic kidney disease, unspecified SNOMED: 838311446 (3) Seizure disorder ICD Codes: G40.909 - Epilepsy, unspecified, not intractable, without status epilepticus SNOMED: 413022012 (4) Functional quadriplegia ICD Codes: R53.2 - Functional quadriplegia SNOMED: 925681116440927 (5) G tube feedings ICD Codes: Z93.1 - G tube feedings SNOMED: 845941049 (6) Diabetes ICD Codes: E11.9 - Type 2 diabetes mellitus without complications SNOMED: 28331597 (7) Anemia in CKD (chronic kidney disease) ICD Codes: N18.9 - Chronic kidney disease, unspecified; D63.1 - Anemia in chronic kidney disease SNOMED: 636417757 Status: unchanged Assessment/Plan: transfuse- down on IV fluids- start feeding Millicent has Vanco on board HHN Monitor renal parameters per orders BP and BS check per orders Subjective ROS Limited/Unobtainable: Yes Allergies: Coded Allergies: METOCLOPRAMIDE (Verified Allergy, Unknown, 03/10/18) extrapyramidal Sx Objective Last 24 Hour Vital Signs Date Time Temp Pulse Resp B/P (MAP) Pulse Ox O2 Delivery O2 Flow Rate FiO2 09/03/18 09:46 99 166/69 09/03/18 08:00 98.9 99 18 166/69 (101) 98 09/03/18 07:28 Nasal Cannula 2.0 28 09/03/18 07:28 97 Nasal Cannula 2.0 28 09/03/18 04:00 127 09/03/18 04:00 98.8 89 18 156/62 (93) 99 09/03/18 00:00 97.5 86 16 130/52 (78) 99 09/03/18 00:00 92 09/02/18 21:00 Nasal Cannula 2.0 09/02/18 20:00 83 09/02/18 20:00 98.2 89 16 128/49 (75) 99 09/02/18 18:55 135/64 09/02/18 17:47 98.0 09/02/18 16:00 97.3 93 20 113/58 (76) 96 09/02/18 16:00 79 Intake and Output 09/02/18 09/03/18 18:59 06:59 Intake Total 100 ml 2005.0 ml Output Total 200 ml 700 ml Balance -100 ml 1305.0 ml IV Total 100 ml 2005.0 ml Output Urine Total 200 ml 700 ml # Bowel Movements 1 Laboratory Tests 09/03/18 08:55: White Blood Count 6.9, Red Blood Count 2.06L, Hemoglobin 6.9*L, Hematocrit 21.2L , Mean Corpuscular Volume 103H, Mean Corpuscular Hemoglobin 33.2H, Mean Corpuscular Hemoglobin Concent 32.4, Red Cell Distribution Width 13.3, Platelet Count 93L, Mean Platelet Volume 10.2H, Neutrophils (%) (Auto) , Lymphocytes (%) (Auto) , Monocytes (%) (Auto) , Eosinophils (%) (Auto) , Basophils (%) (Auto) , Differential Total Cells Counted 100, Neutrophils % (Manual) 63, Lymphocytes % ( Manual) 24, Monocytes % (Manual) 4, Eosinophils % (Manual) 2, Basophils % ( Manual) 0, Band Neutrophils 7, Platelet Estimate DecreasedL, Platelet Morphology Normal, Macrocytosis 1+, Sodium Level 139, Potassium Level 3.6, Chloride Level 107, Carbon Dioxide Level 18L, Anion Gap 14, Blood Urea Nitrogen 93H, Creatinine 2.7H, Estimat Glomerular Filtration Rate , Glucose Level 222H, Uric Acid 9.9H, Calcium Level 7.5L, Phosphorus Level 4.1, Magnesium Level 2.3, Iron Level 20L, Total Iron Binding Capacity 188L, Percent Iron Saturation 11L, Unsaturated Iron Binding 168, Ferritin 1592H, Total Bilirubin 0.3, Gamma Glutamyl Transpeptidase 21, Aspartate Amino Transf (AST/SGOT) 18, Alanine Aminotransferase (ALT/SGPT) 17, Alkaline Phosphatase 62, Total Creatine Kinase 465H, Troponin I 0.042, Total Protein 7.6, Albumin 2.3L, Globulin 5.3, Albumin/ Globulin Ratio 0.4L, Vitamin B12 Level 1656H, Folate 64.3H Height (Feet): 5 Height (Inches): 6.00 Weight (Pounds): 154 General Appearance: no apparent distress, lethargic Neck: limited range of motion Cardiovascular: tachycardia Respiratory/Chest: decreased breath sounds Abdomen: distended Estevan Orozco MD September 03, 2018 12:44
[2018-09-03] MEDS: Sodium Citrate 30ml GT SCH ×2 (13:06→17:32)
[2018-09-03 16:00] VITALS: BP 126/75
--- NOTE | 2018-09-03 17:16 | Infectious Diseases Prog Note ---
Assessment/Plan Problems: (1) Bacteremia Assessment & Plan: with gram positive cocci , staph VS strep , grew out of two blood culture at [place], will continue zyvox empirically pending identification and sensitivity. repeat blood culture x2 to confirm (2) Aspiration pneumonia Assessment & Plan: continue zosyn empirically for 8 days , send sputum culture , aspiration precaution, Keep HOB > 30 degree (3) Sacral decubitus ulcer Assessment & Plan: not infected, continue local wound care and dressings change as per hospital protocol (4) UTI (urinary tract infection) Assessment & Plan: pending urine culture to confirm, she is on zosyn already (5) Diabetes Assessment & Plan: recommend tight glycemic control to keep blood glucose between 100-130 (6) CKD (chronic kidney disease) Assessment & Plan: now worse , suspect dehydration, continue ivf for hydration , and renally dosed meds, nephrology is following Subjective ROS Limited/Unobtainable: Yes Allergies: Coded Allergies: METOCLOPRAMIDE (Verified Allergy, Unknown, 03/10/18) extrapyramidal Sx Subjective she was lying in bed, awake and comfortable, unresponsive, afebrile Objective Vital Signs Last 24 Hour Vital Signs Date Time Temp Pulse Resp B/P (MAP) Pulse Ox O2 Delivery O2 Flow Rate FiO2 09/03/18 09:46 99 166/69 09/03/18 08:00 98.9 99 18 166/69 (101) 98 09/03/18 07:28 Nasal Cannula 2.0 28 09/03/18 07:28 97 Nasal Cannula 2.0 28 09/03/18 04:00 127 09/03/18 04:00 98.8 89 18 156/62 (93) 99 09/03/18 00:00 97.5 86 16 130/52 (78) 99 09/03/18 00:00 92 09/02/18 21:00 Nasal Cannula 2.0 09/02/18 20:00 83 09/02/18 20:00 98.2 89 16 128/49 (75) 99 09/02/18 18:55 135/64 09/02/18 17:47 98.0 Height (Feet): 5 Height (Inches): 6.00 Weight (Pounds): 154 General Appearance: WD/WN, no acute distress HEENT: normocephalic, atraumatic, anicteric, mucous membranes moist, PERRL, supple, other - tongue swallen Respiratory/Chest: chest wall non-tender, no respiratory distress, no accessory muscle use, decreased breath sounds, crackles/rales Cardiovascular: normal peripheral pulses, normal rate, regular rhythm, no gallop/murmur, no JVD Abdomen: normal bowel sounds, soft, non tender, no organomegaly, non distended , no mass, no scars Extremities: no cyanosis, no clubbing Skin: no rash, no lesions, ulcers Neurologic/Psychiatric: unresponsiveness Lymphatic: no neck adenopathy, no groin adenopathy Musculoskeletal: normal muscle bulk, no effusion Microbiology Date/Time Source Procedure Growth Status 09/01/18 20:00 Indwelling Cath Urine Culture - Preliminary NO GROWTH Resulted 09/01/18 20:00 Rectum Received Laboratory Tests Test 09/03/18 08:55 White Blood Count 6.9 K/UL (4.8-10.8) Red Blood Count 2.06 M/UL (4.20-5.40) L Hemoglobin 6.9 G/DL (12.0-16.0) *L Hematocrit 21.2 % (37.0-47.0) L Mean Corpuscular Volume 103 FL (80-99) H Mean Corpuscular Hemoglobin 33.2 PG (27.0-31.0) H Mean Corpuscular Hemoglobin Concent 32.4 G/DL (32.0-36.0) Red Cell Distribution Width 13.3 % (11.6-14.8) Platelet Count 93 K/UL (150-450) L Mean Platelet Volume 10.2 FL (6.5-10.1) H Neutrophils (%) (Auto) % (45.0-75.0) Lymphocytes (%) (Auto) % (20.0-45.0) Monocytes (%) (Auto) % (1.0-10.0) Eosinophils (%) (Auto) % (0.0-3.0) Basophils (%) (Auto) % (0.0-2.0) Differential Total Cells Counted 100 Neutrophils % (Manual) 63 % (45-75) Lymphocytes % (Manual) 24 % (20-45) Monocytes % (Manual) 4 % (1-10) Eosinophils % (Manual) 2 % (0-3) Basophils % (Manual) 0 % (0-2) Band Neutrophils 7 % (0-8) Platelet Estimate Decreased L Platelet Morphology Normal Macrocytosis 1+ Sodium Level 139 MMOL/L (136-145) Potassium Level 3.6 MMOL/L (3.5-5.1) Chloride Level 107 MMOL/L (98-107) Carbon Dioxide Level 18 MMOL/L (21-32) L Anion Gap 14 mmol/L (5-15) Blood Urea Nitrogen 93 mg/dL (7-18) H Creatinine 2.7 MG/DL (0.55-1.30) H Estimat Glomerular Filtration Rate mL/min (>60) Glucose Level 222 MG/DL (74-106) H Uric Acid 9.9 MG/DL (2.6-7.2) H Calcium Level 7.5 MG/DL (8.5-10.1) L Phosphorus Level 4.1 MG/DL (2.5-4.9) Magnesium Level 2.3 MG/DL (1.8-2.4) Iron Level 20 ug/dL (50-175) L Total Iron Binding Capacity 188 ug/dL (250-450) L Percent Iron Saturation 11 % (15-50) L Unsaturated Iron Binding 168 ug/dL (112-346) Ferritin 1592 NG/ML (8-388) H Total Bilirubin 0.3 MG/DL (0.2-1.0) Gamma Glutamyl Transpeptidase 21 U/L (5-85) Aspartate Amino Transf (AST/SGOT) 18 U/L (15-37) Alanine Aminotransferase (ALT/SGPT) 17 U/L (12-78) Alkaline Phosphatase 62 U/L (46-116) Total Creatine Kinase 465 U/L (26-308) H Troponin I 0.042 ng/mL (0.000-0.056) Total Protein 7.6 G/DL (6.4-8.2) Albumin 2.3 G/DL (3.4-5.0) L Globulin 5.3 g/dL Albumin/Globulin Ratio 0.4 (1.0-2.7) L Vitamin B12 Level 1656 PG/ML (193-986) H Folate 64.3 NG/ML (8.6-58.9) H Current Medications Medications (Trade) Dose Ordered Sig/Nancy Route PRN Reason Start Time Stop Time Status Last Admin Dose Admin Amlodipine Besylate (Norvasc) 5 mg DAILY GT 09/03/18 09:00 10/02/18 08:59 09/03/18 09:46 Apixaban (Eliquis) 2.5 mg BID GT 09/02/18 18:00 10/01/18 17:59 09/03/18 10:49 Aspirin (ASA) 81 mg DAILY GT 09/02/18 09:00 10/02/18 08:59 09/03/18 10:49 Dextrose 1,000 ml @ 50 mls/hr Q20H IV 09/03/18 12:41 10/03/18 12:40 09/03/18 13:05 Dextrose (Dextrose 50%) 25 ml Q30M PRN IV Hypoglycemia 09/01/18 17:15 10/01/18 17:14 Dextrose (Dextrose 50%) 50 ml Q30M PRN IV Hypoglycemia 09/01/18 17:15 10/01/18 17:14 Erythromycin (Erickson-Ped) 50 mg Q6HR GT 09/01/18 18:00 09/08/18 17:59 09/03/18 12:59 Hydralazine HCl (Apresoline) 25 mg Q4H PRN GT BP over 160 syst 09/01/18 15:00 10/01/18 14:59 Insulin Aspart (NovoLOG) Q6HR SUBQ 09/01/18 18:00 10/01/18 17:59 09/03/18 12:00 Levetiracetam 100 ml @ 400 mls/hr Q12HR IVPB 09/01/18 21:00 10/01/18 20:59 09/03/18 09:44 Linezolid 300 ml @ 300 mls/hr Q12HR IVPB 09/02/18 21:00 09/09/18 20:59 09/03/18 09:44 Nitroglycerin (Ntg) 1 patch Q24H TDERMAL 09/01/18 18:00 10/01/18 17:59 09/02/18 18:55 Ondansetron HCl (Zofran) 4 mg Q6H PRN IVP Nausea & Vomiting 09/01/18 15:00 10/01/18 14:59 Pantoprazole (Protonix) 40 mg EVERY 12 HOURS IVP 09/01/18 21:00 10/01/18 20:59 09/03/18 09:44 Piperacillin Sod/ Tazobactam Sod 3.375 gm/Sodium Chloride 110 ml @ 27.5 mls/hr EVERY 12 HOURS IVPB 09/01/18 21:00 09/06/18 20:59 09/03/18 10:47 Potassium Chloride (K-Dur) 40 meq DAILY GT 09/03/18 09:00 10/03/18 08:59 09/03/18 09:45 Sodium Citrate (Bicitra) 30 ml EVERY 6 HOURS GT 09/03/18 12:45 10/03/18 12:44 09/03/18 13:06 Sucralfate (Carafate) 1 gm FOUR TIMES A DAY GT 09/01/18 18:00 10/01/18 17:59 09/03/18 12:59 Tramadol HCl (Ultram) 25 mg Q6H GT 09/01/18 16:00 09/08/18 15:59 09/03/18 09:46 Ayala Forman M.D. September 03, 2018 17:16
[2018-09-03] MEDS: Nitroglycerin Patch 0.4mg TDERMAL SCH (17:33)
--- NOTE | 2018-09-03 17:43 | NUR ---
HAND-OFF: Report given to Alor/RN, Endorsed plan of care.
--- NOTE | 2018-09-03 19:54 | NUR ---
NURSE NOTES: Received report from LUIS Mackenzie. Patient is awake lying semi-corral's; resting comfortably. No signs of acute distress or pain noted at this time. AOx0; unable to make needs known. Checked IV site, lines, and IV rate; patent and running. No erythema, bleeding, or infiltration noted. On P200 mattress for appropriate wound management. G-tube flushed and auscultated; patent. Umaña catheter draining well to gravity. Bed at lowest position, brakes on, siderails up x3. Siderails padded following seizure precautions. Suction at bedside. Call light within reach. Will continue to monitor.
[2018-09-03 20:00] VITALS: BP 137/64
--- NOTE | 2018-09-03 22:29 | Surgery Progress Note ---
Surgery Progress Note Subjective Additional Comments no acute events. anemia. labs noted. exam unchanged. Objective Last 24 Hour Vital Signs Date Time Temp Pulse Resp B/P (MAP) Pulse Ox O2 Delivery O2 Flow Rate FiO2 09/03/18 18:02 98.9 09/03/18 17:33 127/49 09/03/18 16:00 81 09/03/18 16:00 97.2 83 20 126/75 (92) 92 09/03/18 12:00 84 09/03/18 12:00 98.1 94 20 116/56 (76) 96 09/03/18 09:46 99 166/69 09/03/18 09:00 Nasal Cannula 2.0 09/03/18 08:00 98.9 99 18 166/69 (101) 98 09/03/18 08:00 88 09/03/18 07:28 Nasal Cannula 2.0 28 09/03/18 07:28 97 Nasal Cannula 2.0 28 09/03/18 04:00 127 09/03/18 04:00 98.8 89 18 156/62 (93) 99 09/03/18 00:00 97.5 86 16 130/52 (78) 99 09/03/18 00:00 92 I&O Intake and Output 09/02/18 09/03/18 19:00 07:00 Intake Total 150 ml 2005.0 ml Output Total 200 ml 700 ml Balance -50 ml 1305.0 ml IV Total 150 ml 2005.0 ml Output Urine Total 200 ml 700 ml # Bowel Movements 1 Dressing: saturated Wound: other Drains: other Cardiovascular: RSR Respiratory: decreased breath sounds Abdomen: soft, present bowel sounds, non-distended Extremities: no tenderness, no cyanosis Laboratory Tests Test 09/03/18 08:55 White Blood Count 6.9 K/UL (4.8-10.8) Red Blood Count 2.06 M/UL (4.20-5.40) L Hemoglobin 6.9 G/DL (12.0-16.0) *L Hematocrit 21.2 % (37.0-47.0) L Mean Corpuscular Volume 103 FL (80-99) H Mean Corpuscular Hemoglobin 33.2 PG (27.0-31.0) H Mean Corpuscular Hemoglobin Concent 32.4 G/DL (32.0-36.0) Red Cell Distribution Width 13.3 % (11.6-14.8) Platelet Count 93 K/UL (150-450) L Mean Platelet Volume 10.2 FL (6.5-10.1) H Neutrophils (%) (Auto) % (45.0-75.0) Lymphocytes (%) (Auto) % (20.0-45.0) Monocytes (%) (Auto) % (1.0-10.0) Eosinophils (%) (Auto) % (0.0-3.0) Basophils (%) (Auto) % (0.0-2.0) Differential Total Cells Counted 100 Neutrophils % (Manual) 63 % (45-75) Lymphocytes % (Manual) 24 % (20-45) Monocytes % (Manual) 4 % (1-10) Eosinophils % (Manual) 2 % (0-3) Basophils % (Manual) 0 % (0-2) Band Neutrophils 7 % (0-8) Platelet Estimate Decreased L Platelet Morphology Normal Macrocytosis 1+ Sodium Level 139 MMOL/L (136-145) Potassium Level 3.6 MMOL/L (3.5-5.1) Chloride Level 107 MMOL/L (98-107) Carbon Dioxide Level 18 MMOL/L (21-32) L Anion Gap 14 mmol/L (5-15) Blood Urea Nitrogen 93 mg/dL (7-18) H Creatinine 2.7 MG/DL (0.55-1.30) H Estimat Glomerular Filtration Rate mL/min (>60) Glucose Level 222 MG/DL (74-106) H Uric Acid 9.9 MG/DL (2.6-7.2) H Calcium Level 7.5 MG/DL (8.5-10.1) L Phosphorus Level 4.1 MG/DL (2.5-4.9) Magnesium Level 2.3 MG/DL (1.8-2.4) Iron Level 20 ug/dL (50-175) L Total Iron Binding Capacity 188 ug/dL (250-450) L Percent Iron Saturation 11 % (15-50) L Unsaturated Iron Binding 168 ug/dL (112-346) Ferritin 1592 NG/ML (8-388) H Total Bilirubin 0.3 MG/DL (0.2-1.0) Gamma Glutamyl Transpeptidase 21 U/L (5-85) Aspartate Amino Transf (AST/SGOT) 18 U/L (15-37) Alanine Aminotransferase (ALT/SGPT) 17 U/L (12-78) Alkaline Phosphatase 62 U/L (46-116) Total Creatine Kinase 465 U/L (26-308) H Troponin I 0.042 ng/mL (0.000-0.056) Total Protein 7.6 G/DL (6.4-8.2) Albumin 2.3 G/DL (3.4-5.0) L Globulin 5.3 g/dL Albumin/Globulin Ratio 0.4 (1.0-2.7) L Vitamin B12 Level 1656 PG/ML (193-986) H Folate 64.3 NG/ML (8.6-58.9) H Plan Problems: (1) Sacral decubitus ulcer Assessment & Plan: Pt presented on admission with Full Thickness Sacral Pressure Injury. Base of wound has 75% pink granulation with scattered dry brown eschar (25%).Small amt of sanguineous exudate noted. Edges flat and adherent to base of wound. Darker Skin tone without erythema induration or fluctuance periwound.(L)7.5cm x (W)8.5cm. Erythema noted to perineum and medial aspects of both upper thighs. R heel dry and boggy with Hyperpigmentation from previous wound. Darker skin tone without fluctuance or induration noted to R hallux. 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 No other areas of Skin Breakdown noted. Treatment plan: Cleanse Sacrum with Saline. Apply Therahoney to areas of Eschar in wound. Apply Triad paste to Viable areas of wound. Cover with Optifoam drsg. Change every 3 days and prn. Apply Cavilon Skin Barrier to R heel. Cover with Optifoam drsg. Change every 7 days and prn. APM/KALE Mattress overlay. Reposition at least every 2 hours or as tolerated. Off-load R heel with Pillow. 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 thank you (15) Diabetes (16) Dementia (17) CKD (chronic kidney disease) (18) Seizure disorder (19) Functional quadriplegia (20) G tube feedings (21) Sacral decubitus ulcer, stage III (22) Malfunction of gastrostomy tube (23) Gastroparesis (24) Anemia (25) UTI (urinary tract infection) (26) GI bleed (27) Epileptic seizure, generalized Taco Carter September 03, 2018 22:29
[2018-09-04] VITALS: BP 125/48
[2018-09-04] MEDS: Sodium Citrate 30ml GT SCH ×4 (00:25→17:31)
[2018-09-04] MEDS: Piperacillin/Tazobactam 3.375 GM in NS 110 ML IVPB SCH ×3 (00:26→21:23)
[2018-09-04] MEDS: Erythromycin Ethylsuccinate 200mg/5ml Susp GT SCH ×4 (00:26→17:31)
[2018-09-04] MEDS: NovoLOG Insulin Flexpen SUBQ SCH ×4 (00:30→17:17)
--- NOTE | 2018-09-04 01:10 | NUR ---
NURSE NOTES: Initiated transfusion of 2nd unit of PRBCs. No adverse reaction noted thus far. Will continue to monitor patient.
[2018-09-04 04:00] VITALS: BP 137/61
[2018-09-04] MEDS: traMADol 50mg tab GT SCH ×4 (04:30→21:24)
--- NOTE | 2018-09-04 04:34 | NUR ---
NURSE NOTES: 2nd unit of PRBCs completed. No adverse reaction noted. Patient tolerated well.
[2018-09-04 06:56] LABS: BASOPHILS % (AUTO) 0.6 % (0.0-2.0); EOSINOPHILS % (AUTO) 1.9 % (0.0-3.0); HEMATOCRIT 31.7 % (37.0-47.0); LYMPHOCYTES % (AUTO) 26.2 % (20.0-45.0); MEAN CORPUSCULAR VOLUME 94 FL (80-99); MONOCYTES % (AUTO) 4.9 % (1.0-10.0); NEUTROPHILS % (AUTO) 66.4 % (45.0-75.0); PLATELET COUNT 109 K/UL (150-450); RED BLOOD COUNT 3.36 M/UL (4.20-5.40); RED CELL DISTRIBUTION WIDTH 17.2 % (11.6-14.8)
[2018-09-04 06:59] LABS: HEMOGLOBIN 10.7 G/DL (12.0-16.0)
--- NOTE | 2018-09-04 07:18 | NUR ---
HAND-OFF: Report given to LUIS Grace. Patient is asleep lying semi-corral's; resting comfortably. On 2L nasal cannula. Umaña catheter draining well to gravity. In stable condition.
--- NOTE | 2018-09-04 07:20 | NUR ---
NURSE NOTES: Received report from LUIS Lundberg. Patient is resting in bed, in stable condition. No s/sx of SOB, breathing is even and unlabored. Bed is in lowest position, brakes engaged. Did not observe any presence of pain or discomfort at this time. Call light is kept within easy reach. Will continue to monitor patient.
[2018-09-04 08:00] VITALS: BP 124/58
[2018-09-04 08:17] LABS: ALANINE AMINOTRANSFERASE 17 U/L (12-78); ALBUMIN 2.6 G/DL (3.4-5.0); ALBUMIN/GLOBULIN RATIO 0.5 (1.0-2.7); ALKALINE PHOSPHATASE 72 U/L (46-116); ANION GAP 21 mmol/L (5-15); ASPARTATE AMINO TRANSFERASE 25 U/L (15-37); BILIRUBIN,TOTAL 0.7 MG/DL (0.2-1.0); BLOOD UREA NITROGEN 66 mg/dL (7-18); CALCIUM 8.2 MG/DL (8.5-10.1); CARBON DIOXIDE 16 MMOL/L (21-32); CHLORIDE 114 MMOL/L (98-107); CREATININE 2.1 MG/DL (0.55-1.30); PHOSPHORUS 3.6 MG/DL (2.5-4.9); POTASSIUM 3.4 MMOL/L (3.5-5.1); SODIUM 150 MMOL/L (136-145)
[2018-09-04] MEDS: Sucralfate 1gm tab GT SCH ×4 (08:23→21:23)
[2018-09-04] MEDS: Aspirin Baby 81mg GT SCH (08:23)
[2018-09-04] MEDS: levETIRAcetam 1,000mg/NS100ml 100 ML IVPB SCH (08:24)
[2018-09-04] MEDS: Eliquis 2.5mg tablet GT SCH ×2 (08:24→17:30)
[2018-09-04] MEDS: Pantoprazole Inj IVP SCH (08:24)
[2018-09-04 08:33] LABS: CREATINE KINASE 444 U/L (26-308); GAMMA GLUTAMYL TRANSPEPTIDASE 27 U/L (5-85)
--- NOTE | 2018-09-04 11:02 | Diagnostic Imaging Report ---
Indication: Dyspnea Comparison: 09/02/2018 A single view chest radiograph was obtained. Findings: Prominent central vascularity, cephalization and interstitial opacities are present with the borderline cardiomegaly. Bones are osteopenic. IMPRESSION: Developing pulmonary venous congestion/edema. Correlate clinically
--- NOTE | 2018-09-04 11:59 | General Progress Note ---
Assessment/Plan Problem List: (1) Aspiration pneumonia ICD Codes: J69.0 - Pneumonitis due to inhalation of food and vomit SNOMED: 205573319 (2) Acute on chronic renal failure ICD Codes: N17.9 - Acute kidney failure, unspecified; N18.9 - Chronic kidney disease, unspecified SNOMED: 307930346 (3) Seizure disorder ICD Codes: G40.909 - Epilepsy, unspecified, not intractable, without status epilepticus SNOMED: 624319891 (4) Functional quadriplegia ICD Codes: R53.2 - Functional quadriplegia SNOMED: 285771857810182 (5) G tube feedings ICD Codes: Z93.1 - G tube feedings SNOMED: 367066967 (6) Diabetes ICD Codes: E11.9 - Type 2 diabetes mellitus without complications SNOMED: 10321465 (7) Anemia in CKD (chronic kidney disease) ICD Codes: N18.9 - Chronic kidney disease, unspecified; D63.1 - Anemia in chronic kidney disease SNOMED: 078126727 Status: unchanged Assessment/Plan: transfuse- one dose Zaroxylin down on IV fluids- start feeding [place] has Vanco on board HHN Monitor renal parameters per orders BP and BS check Pain management per orders Subjective ROS Limited/Unobtainable: No Constitutional: Reports: malaise, weakness, other - non verbal Allergies: Coded Allergies: METOCLOPRAMIDE (Verified Allergy, Unknown, 03/10/18) extrapyramidal Sx Objective Last 24 Hour Vital Signs Date Time Temp Pulse Resp B/P (MAP) Pulse Ox O2 Delivery O2 Flow Rate FiO2 09/04/18 09:00 Nasal Cannula 2.0 09/04/18 08:23 87 124/60 09/04/18 08:00 99.0 90 20 124/58 (80) 97 09/04/18 08:00 70 09/04/18 06:12 Nasal Cannula 2.0 28 09/04/18 06:12 98 Nasal Cannula 2.0 28 09/04/18 04:00 98.3 90 20 137/61 (86) 97 09/04/18 04:00 73 09/04/18 00:00 97.7 75 20 125/48 (73) 99 09/04/18 00:00 78 09/03/18 21:00 Nasal Cannula 2.0 09/03/18 20:00 98.1 93 20 137/64 (88) 94 09/03/18 20:00 77 09/03/18 18:02 98.9 09/03/18 17:33 127/49 09/03/18 16:00 81 09/03/18 16:00 97.2 83 20 126/75 (92) 92 09/03/18 12:00 84 09/03/18 12:00 98.1 94 20 116/56 (76) 96 Intake and Output 09/03/18 09/04/18 19:00 07:00 Intake Total 50 ml 1133.0 ml Output Total 600 ml 2300 ml Balance -550 ml -1167.0 ml Intake Free Water 40 ml IV Total 50 ml 793.0 ml Tube Feeding 50 ml Blood Product 250 ml Output Urine Total 600 ml 2300 ml # Bowel Movements 1 Laboratory Tests 09/04/18 04:45: White Blood Count 7.0, Red Blood Count 3.36L, Hemoglobin 10.7#L, Hematocrit 31.7 #L, Mean Corpuscular Volume 94#, Mean Corpuscular Hemoglobin 31.8H, Mean Corpuscular Hemoglobin Concent 33.7, Red Cell Distribution Width 17.2H, Platelet Count 109L, Mean Platelet Volume 10.7H, Neutrophils (%) (Auto) 66.4, Lymphocytes (%) (Auto) 26.2, Monocytes (%) (Auto) 4.9, Eosinophils (%) (Auto) 1.9, Basophils (%) (Auto) 0.6, Sodium Level 150#H, Potassium Level 3.4L, Chloride Level 114H, Carbon Dioxide Level 16L, Anion Gap 21H, Blood Urea Nitrogen 66H, Creatinine 2.1H, Estimat Glomerular Filtration Rate , Glucose Level 83#, Uric Acid 9.4H, Calcium Level 8.2L, Phosphorus Level 3.6, Magnesium Level 2.3, Total Bilirubin 0.7, Gamma Glutamyl Transpeptidase 27, Aspartate Amino Transf (AST/SGOT) 25, Alanine Aminotransferase (ALT/SGPT) 17, Alkaline Phosphatase 72, Total Creatine Kinase 444H, Total Protein 8.3H, Albumin 2.6L, Globulin 5.7, Albumin/Globulin Ratio 0.5L, Levetiracetam (Keppra) Level [Pending ] 09/04/18 07:36: Urine Eosinophils [Pending] Height (Feet): 5 Height (Inches): 6.00 Weight (Pounds): 154 General Appearance: mild distress Neck: limited range of motion Cardiovascular: normal rate Respiratory/Chest: decreased breath sounds Abdomen: distended Estevan Orozco MD September 04, 2018 11:59
[2018-09-04 12:00] VITALS: BP 137/66
--- NOTE | 2018-09-04 13:19 | Surgery Progress Note ---
Surgery Progress Note Subjective Additional Comments Transfused PRBC and responded well electrolytes abnormal exam stable Objective Last 24 Hour Vital Signs Date Time Temp Pulse Resp B/P (MAP) Pulse Ox O2 Delivery O2 Flow Rate FiO2 09/04/18 12:00 98.6 87 20 137/66 (89) 96 09/04/18 09:00 Nasal Cannula 2.0 09/04/18 08:23 87 124/60 09/04/18 08:00 99.0 90 20 124/58 (80) 97 09/04/18 08:00 70 09/04/18 06:12 Nasal Cannula 2.0 28 09/04/18 06:12 98 Nasal Cannula 2.0 28 09/04/18 04:00 98.3 90 20 137/61 (86) 97 09/04/18 04:00 73 09/04/18 00:00 97.7 75 20 125/48 (73) 99 09/04/18 00:00 78 09/03/18 21:00 Nasal Cannula 2.0 09/03/18 20:00 98.1 93 20 137/64 (88) 94 09/03/18 20:00 77 09/03/18 18:02 98.9 09/03/18 17:33 127/49 09/03/18 16:00 81 09/03/18 16:00 97.2 83 20 126/75 (92) 92 I&O Intake and Output 09/03/18 09/04/18 18:59 06:59 Intake Total 150 ml 1095.5 ml Output Total 600 ml 2300 ml Balance -450 ml -1204.5 ml Intake Free Water 40 ml IV Total 150 ml 765.5 ml Tube Feeding 40 ml Blood Product 250 ml Output Urine Total 600 ml 2300 ml # Bowel Movements 1 Dressing: saturated Wound: other Drains: other Cardiovascular: RSR Respiratory: decreased breath sounds Abdomen: soft, present bowel sounds, non-distended Extremities: cyanosis - left aka, no cyanosis, other - left AKA Laboratory Tests Test 09/04/18 04:45 09/04/18 07:36 White Blood Count 7.0 K/UL (4.8-10.8) Red Blood Count 3.36 M/UL (4.20-5.40) L Hemoglobin 10.7 G/DL (12.0-16.0) #L Hematocrit 31.7 % (37.0-47.0) #L Mean Corpuscular Volume 94 FL (80-99) # Mean Corpuscular Hemoglobin 31.8 PG (27.0-31.0) H Mean Corpuscular Hemoglobin Concent 33.7 G/DL (32.0-36.0) Red Cell Distribution Width 17.2 % (11.6-14.8) H Platelet Count 109 K/UL (150-450) L Mean Platelet Volume 10.7 FL (6.5-10.1) H Neutrophils (%) (Auto) 66.4 % (45.0-75.0) Lymphocytes (%) (Auto) 26.2 % (20.0-45.0) Monocytes (%) (Auto) 4.9 % (1.0-10.0) Eosinophils (%) (Auto) 1.9 % (0.0-3.0) Basophils (%) (Auto) 0.6 % (0.0-2.0) Sodium Level 150 MMOL/L (136-145) #H Potassium Level 3.4 MMOL/L (3.5-5.1) L Chloride Level 114 MMOL/L (98-107) H Carbon Dioxide Level 16 MMOL/L (21-32) L Anion Gap 21 mmol/L (5-15) H Blood Urea Nitrogen 66 mg/dL (7-18) H Creatinine 2.1 MG/DL (0.55-1.30) H Estimat Glomerular Filtration Rate mL/min (>60) Glucose Level 83 MG/DL (74-106) # Uric Acid 9.4 MG/DL (2.6-7.2) H Calcium Level 8.2 MG/DL (8.5-10.1) L Phosphorus Level 3.6 MG/DL (2.5-4.9) Magnesium Level 2.3 MG/DL (1.8-2.4) Total Bilirubin 0.7 MG/DL (0.2-1.0) Gamma Glutamyl Transpeptidase 27 U/L (5-85) Aspartate Amino Transf (AST/SGOT) 25 U/L (15-37) Alanine Aminotransferase (ALT/SGPT) 17 U/L (12-78) Alkaline Phosphatase 72 U/L (46-116) Total Creatine Kinase 444 U/L (26-308) H Total Protein 8.3 G/DL (6.4-8.2) H Albumin 2.6 G/DL (3.4-5.0) L Globulin 5.7 g/dL Albumin/Globulin Ratio 0.5 (1.0-2.7) L Levetiracetam (Keppra) Level Pending Urine Eosinophils Pending Plan Problems: (1) Sacral decubitus ulcer Assessment & Plan: Pt presented on admission with Full Thickness Sacral Pressure Injury. Base of wound has 75% pink granulation with scattered dry brown eschar (25%).Small amt of sanguineous exudate noted. Edges flat and adherent to base of wound. Darker Skin tone without erythema induration or fluctuance periwound.(L)7.5cm x (W)8.5cm. Erythema noted to perineum and medial aspects of both upper thighs. R heel dry and boggy with Hyperpigmentation from previous wound. Darker skin tone without fluctuance or induration noted to R hallux. 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 No other areas of Skin Breakdown noted. Treatment plan: Cleanse Sacrum with Saline. Apply Therahoney to areas of Eschar in wound. Apply Triad paste to Viable areas of wound. Cover with Optifoam drsg. Change every 3 days and prn. Apply Cavilon Skin Barrier to R heel. Cover with Optifoam drsg. Change every 7 days and prn. APM/KALE Mattress overlay. Reposition at least every 2 hours or as tolerated. Off-load R heel with Pillow. 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 thank you (15) Diabetes (16) Dementia (17) CKD (chronic kidney disease) (18) Seizure disorder (19) Functional quadriplegia (20) G tube feedings Assessment & Plan: DAILY ESTIMATED NEEDS: Needs based on DM, Wounds (Adj wt 58.5kg) 25-30 kcals/kg 3758-0977 total kcals 1.25-1.5 g protein/kg 73-88 g total protein 25-30 mL/kg 0407-2525 total fluid mLs NUTRITION DIAGNOSIS: 1) Swallowing difficulty r/t dysphagia as evidenced by pt is PEG dep, NPO at this time. 2) Increased protein, micronutrient needs r/t wound healing as evidenced by sacral open wound per photo, pending eval CURRENT TF:NPO ENTERAL NUTRITION RECOMMENDATIONS: Glucerna 1.2 @ 60ml/hr x 24 hrs to provide 1440ml, 1728kcal, 86g prot , 1159ml free water - As medically appropriate, initiate TF on Glucerna 1.2 @ 20ml/hr x 6 hrs - Advance 10ml q 4-6 hrs as tolerated to goal rate of 60mlx 24 hrs - HOB over 30 degrees/ water flush per MD. ADDITIONAL RECOMMENDATIONS: 1) TXR PT TO BED WITH CALIBRATED BEDSCALE 2) Wound healing: add Vit C 500mg QD and Damian 1pkt BID : f/up w/ WC eval 3) Monitor lytes daily, replete as needed 4) Monitor Renal fxn and lytes, need for Nepro TF formula -> pt on Nepro [employer] (21) Sacral decubitus ulcer, stage III (22) Malfunction of gastrostomy tube (23) Gastroparesis (24) Anemia (25) UTI (urinary tract infection) (26) GI bleed (27) Epileptic seizure, generalized Taco Carter September 04, 2018 13:19
[2018-09-04 16:00] VITALS: BP 110/55
--- NOTE | 2018-09-04 16:21 | Infectious Diseases Prog Note ---
Assessment/Plan Problems: (1) Bacteremia Assessment & Plan: with gram positive cocci , staph VS strep , grew out of two blood culture at [place], requested final culture report. will continue zyvox empirically pending report from [place] . await repeated blood culture x2 to confirm (2) Aspiration pneumonia Assessment & Plan: continue zosyn empirically for 8 days , send sputum culture , aspiration precaution, Keep HOB > 30 degree (3) Sacral decubitus ulcer Assessment & Plan: not infected, continue local wound care and dressings change as per hospital protocol (4) UTI (urinary tract infection) Assessment & Plan: pending urine culture to confirm, she is on zosyn already (5) Diabetes Assessment & Plan: recommend tight glycemic control to keep blood glucose between 100-130 (6) CKD (chronic kidney disease) Assessment & Plan: suspect dehydration, continue ivf for hydration, and renally dosed meds, nephrology is following Subjective ROS Limited/Unobtainable: Yes Allergies: Coded Allergies: METOCLOPRAMIDE (Verified Allergy, Unknown, 03/10/18) extrapyramidal Sx Subjective she was lying in bed, comfortable, unresponsive, afebrile Objective Vital Signs Last 24 Hour Vital Signs Date Time Temp Pulse Resp B/P (MAP) Pulse Ox O2 Delivery O2 Flow Rate FiO2 09/04/18 12:00 67 09/04/18 12:00 98.6 87 20 137/66 (89) 96 09/04/18 09:00 Nasal Cannula 2.0 09/04/18 08:23 87 124/60 09/04/18 08:00 99.0 90 20 124/58 (80) 97 09/04/18 08:00 70 09/04/18 06:12 Nasal Cannula 2.0 28 09/04/18 06:12 98 Nasal Cannula 2.0 28 09/04/18 04:00 98.3 90 20 137/61 (86) 97 09/04/18 04:00 73 09/04/18 00:00 97.7 75 20 125/48 (73) 99 09/04/18 00:00 78 09/03/18 21:00 Nasal Cannula 2.0 09/03/18 20:00 98.1 93 20 137/64 (88) 94 09/03/18 20:00 77 09/03/18 18:02 98.9 09/03/18 17:33 127/49 Height (Feet): 5 Height (Inches): 6.00 Weight (Pounds): 154 General Appearance: WD/WN, no acute distress HEENT: normocephalic, atraumatic, anicteric, mucous membranes moist, PERRL, supple, no JVD Respiratory/Chest: chest wall non-tender, no respiratory distress, no accessory muscle use, decreased breath sounds, crackles/rales Cardiovascular: normal peripheral pulses, normal rate, regular rhythm, no gallop/murmur, no JVD Abdomen: soft, non tender, no organomegaly, non distended, no mass, no scars, hypoactive bowel sounds Extremities: no cyanosis, no clubbing Skin: no rash, no lesions, ulcers Neurologic/Psychiatric: unresponsiveness Lymphatic: no neck adenopathy, no groin adenopathy Musculoskeletal: normal muscle bulk, no effusion Microbiology Date/Time Source Procedure Growth Status 09/01/18 20:00 Nasal Nares Left MRSA Culture - Final NO METHICILLIN RESISTANT STAPH AUREUS... Complete 09/01/18 20:00 Urine,Clean Catch Urine Culture - Final Complete 09/01/18 20:00 Indwelling Cath Urine Culture - Final NO GROWTH AFTER 48 HOURS Complete 09/02/18 19:20 Rectum - Final NO CARBAPENEM-RESISTANT ENTEROBACTERI... Complete 09/01/18 20:00 Rectum VRE Culture - Final NO VANCOMYCIN RESISTANT ENTEROCOCCUS ... Complete Laboratory Tests Test 09/04/18 04:45 09/04/18 07:36 White Blood Count 7.0 K/UL (4.8-10.8) Red Blood Count 3.36 M/UL (4.20-5.40) L Hemoglobin 10.7 G/DL (12.0-16.0) #L Hematocrit 31.7 % (37.0-47.0) #L Mean Corpuscular Volume 94 FL (80-99) # Mean Corpuscular Hemoglobin 31.8 PG (27.0-31.0) H Mean Corpuscular Hemoglobin Concent 33.7 G/DL (32.0-36.0) Red Cell Distribution Width 17.2 % (11.6-14.8) H Platelet Count 109 K/UL (150-450) L Mean Platelet Volume 10.7 FL (6.5-10.1) H Neutrophils (%) (Auto) 66.4 % (45.0-75.0) Lymphocytes (%) (Auto) 26.2 % (20.0-45.0) Monocytes (%) (Auto) 4.9 % (1.0-10.0) Eosinophils (%) (Auto) 1.9 % (0.0-3.0) Basophils (%) (Auto) 0.6 % (0.0-2.0) Sodium Level 150 MMOL/L (136-145) #H Potassium Level 3.4 MMOL/L (3.5-5.1) L Chloride Level 114 MMOL/L (98-107) H Carbon Dioxide Level 16 MMOL/L (21-32) L Anion Gap 21 mmol/L (5-15) H Blood Urea Nitrogen 66 mg/dL (7-18) H Creatinine 2.1 MG/DL (0.55-1.30) H Estimat Glomerular Filtration Rate mL/min (>60) Glucose Level 83 MG/DL (74-106) # Uric Acid 9.4 MG/DL (2.6-7.2) H Calcium Level 8.2 MG/DL (8.5-10.1) L Phosphorus Level 3.6 MG/DL (2.5-4.9) Magnesium Level 2.3 MG/DL (1.8-2.4) Total Bilirubin 0.7 MG/DL (0.2-1.0) Gamma Glutamyl Transpeptidase 27 U/L (5-85) Aspartate Amino Transf (AST/SGOT) 25 U/L (15-37) Alanine Aminotransferase (ALT/SGPT) 17 U/L (12-78) Alkaline Phosphatase 72 U/L (46-116) Total Creatine Kinase 444 U/L (26-308) H Total Protein 8.3 G/DL (6.4-8.2) H Albumin 2.6 G/DL (3.4-5.0) L Globulin 5.7 g/dL Albumin/Globulin Ratio 0.5 (1.0-2.7) L Levetiracetam (Keppra) Level Pending Urine Eosinophils None seen (NONE SEEN) Current Medications Medications (Trade) Dose Ordered Sig/Nancy Route PRN Reason Start Time Stop Time Status Last Admin Dose Admin Amlodipine Besylate (Norvasc) 5 mg DAILY GT 09/03/18 09:00 10/02/18 08:59 09/04/18 08:23 Apixaban (Eliquis) 2.5 mg BID GT 09/02/18 18:00 10/01/18 17:59 09/04/18 08:24 Aspirin (ASA) 81 mg DAILY GT 09/02/18 09:00 10/02/18 08:59 09/04/18 08:23 Dextrose (Dextrose 50%) 25 ml Q30M PRN IV Hypoglycemia 09/01/18 17:15 10/01/18 17:14 Dextrose (Dextrose 50%) 50 ml Q30M PRN IV Hypoglycemia 09/01/18 17:15 10/01/18 17:14 Erythromycin (Erickson-Ped) 50 mg Q6HR GT 09/01/18 18:00 09/08/18 17:59 09/04/18 12:17 Hydralazine HCl (Apresoline) 25 mg Q4H PRN GT BP over 160 syst 09/01/18 15:00 10/01/18 14:59 Insulin Aspart (NovoLOG) Q6HR SUBQ 09/01/18 18:00 10/01/18 17:59 09/04/18 12:19 Lansoprazole (Prevacid) 30 mg BID GT 09/04/18 18:00 10/04/18 17:59 Levetiracetam (Keppra) 1,000 mg Q12HR NG 09/04/18 21:00 10/04/18 20:59 Linezolid 300 ml @ 300 mls/hr Q12HR IVPB 09/04/18 00:00 09/11/18 00:00 09/04/18 08:56 Nitroglycerin (Ntg) 1 patch Q24H TDERMAL 09/01/18 18:00 10/01/18 17:59 09/03/18 17:33 Ondansetron HCl (Zofran) 4 mg Q6H PRN IVP Nausea & Vomiting 09/01/18 15:00 10/01/18 14:59 Piperacillin Sod/ Tazobactam Sod 3.375 gm/Sodium Chloride 110 ml @ 27.5 mls/hr EVERY 12 HOURS IVPB 09/04/18 00:00 09/11/18 00:00 09/04/18 10:17 Potassium Chloride (K-Dur) 40 meq BID GT 09/04/18 09:00 10/03/18 08:59 Sodium Citrate (Bicitra) 30 ml EVERY 6 HOURS GT 09/03/18 12:45 10/03/18 12:44 09/04/18 12:18 Sucralfate (Carafate) 1 gm FOUR TIMES A DAY GT 09/01/18 18:00 10/01/18 17:59 09/04/18 12:17 Tramadol HCl (Ultram) 50 mg Q6H GT 09/04/18 16:00 09/08/18 15:59 Ayala Forman M.D. September 04, 2018 16:21
--- NOTE | 2018-09-04 17:12 | NUR ---
NURSE NOTES: Called and informed Dr. Forman that per [facility], sensitivity report is not done on the report if stated in report " Coagulase negative staphylococcus species, not antimicrobial susceptibility testing routinely performed coagulase negative staphylococci. These often represent contaminants, particularly when present in only one of multiple sets." Dr. Forman acknowledged and no new orders given at this time. Will continue to monitor patient.
[2018-09-04] MEDS: Nitroglycerin Patch 0.4mg TDERMAL SCH ×2 (17:32→18:00)
--- NOTE | 2018-09-04 19:38 | NUR ---
HAND-OFF: Report given to LUIS Lundberg.
--- NOTE | 2018-09-04 19:48 | NUR ---
NURSE NOTES: Received report from LUIS Grace. Patient is awake lying semi-corral's; resting comfortably. No signs of acute distress or pain noted at this time. On 2L nasal cannula. AOx0; unable to make needs known. Checked IV site; patent and flushed. No erythema, bleeding, or infiltration noted. On P200 mattress for appropriate wound management. G-tube flushed and auscultated; patent. Glucerna 1.5 running at 20 mls/hr for a goal of 40 mls/hr. Umaña catheter draining well to gravity. Bed at lowest position, brakes on, siderails up x3. Siderails padded following seizure precautions. Suction at bedside. Call light within reach. Will continue to monitor.
[2018-09-04 20:00] VITALS: BP 142/75
[2018-09-04] MEDS: levETIRAcetam 500mg/5ml Liquid NG SCH (21:25)
[2018-09-05] VITALS: BP 126/85
[2018-09-05] MEDS: Sodium Citrate 30ml GT SCH ×4 (00:31→17:11)
[2018-09-05] MEDS: Erythromycin Ethylsuccinate 200mg/5ml Susp GT SCH ×4 (00:31→17:11)
[2018-09-05] MEDS: NovoLOG Insulin Flexpen SUBQ SCH ×4 (00:32→17:12)
--- NOTE | 2018-09-05 03:47 | NUR ---
NURSE NOTES: Patient is asleep lying semi-corral's; resting comfortably. No signs of acute distress noted or pain noted at this time. Umaña catheter draining well to gravity. Glucerna 1.5 running at 30 mls/hr for a goal of 40 mls/hr.
[2018-09-05 04:00] VITALS: BP 130/59
[2018-09-05] MEDS: traMADol 50mg tab GT SCH ×4 (05:01→21:52)
[2018-09-05 07:03] LABS: ALANINE AMINOTRANSFERASE 21 U/L (12-78); ALBUMIN 2.6 G/DL (3.4-5.0); ALBUMIN/GLOBULIN RATIO 0.4 (1.0-2.7); ALKALINE PHOSPHATASE 74 U/L (46-116); ANION GAP 13 mmol/L (5-15); ASPARTATE AMINO TRANSFERASE 24 U/L (15-37); BILIRUBIN,TOTAL 0.4 MG/DL (0.2-1.0); BLOOD UREA NITROGEN 44 mg/dL (7-18); CALCIUM 8.2 MG/DL (8.5-10.1); CARBON DIOXIDE 25 MMOL/L (21-32); CHLORIDE 111 MMOL/L (98-107); CREATININE 1.9 MG/DL (0.55-1.30); GAMMA GLUTAMYL TRANSPEPTIDASE 34 U/L (5-85); PHOSPHORUS 3.1 MG/DL (2.5-4.9); POTASSIUM 4.2 MMOL/L (3.5-5.1); SODIUM 149 MMOL/L (136-145)
[2018-09-05 07:10] LABS: BASOPHILS % (AUTO) 0.6 % (0.0-2.0); EOSINOPHILS % (AUTO) 2.6 % (0.0-3.0); HEMATOCRIT 37.9 % (37.0-47.0); HEMOGLOBIN 12.6 G/DL (12.0-16.0); LYMPHOCYTES % (AUTO) 31.4 % (20.0-45.0); MEAN CORPUSCULAR VOLUME 95 FL (80-99); MONOCYTES % (AUTO) 5.7 % (1.0-10.0); NEUTROPHILS % (AUTO) 59.7 % (45.0-75.0); PLATELET COUNT 131 K/UL (150-450); RED BLOOD COUNT 3.99 M/UL (4.20-5.40); RED CELL DISTRIBUTION WIDTH 17.5 % (11.6-14.8); WHITE BLOOD COUNT 5.4 K/UL (4.8-10.8)
--- NOTE | 2018-09-05 07:31 | NUR ---
HAND-OFF: Report given to LUIS Farfan. Patient is asleep lying semi-corral's; resting comfortably. On 2L nasal cannula. Umaña catheter draining well to gravity. Glucerna 1.5 running at 40 mls/hr. In stable condition.
[2018-09-05 07:59] VITALS: BP 147/59
--- NOTE | 2018-09-05 08:02 | NUR ---
NURSE NOTES: pt awake alert, nonverbal , call light within reach . martinez patent intact draining yellow urine, hob elevated, gt patent intact no residual. dressing on sacral is clean dry and intact, will monitor.
[2018-09-05] MEDS: Eliquis 2.5mg tablet GT SCH ×2 (08:24→17:12)
[2018-09-05] MEDS: Sucralfate 1gm tab GT SCH ×4 (08:24→21:51)
[2018-09-05] MEDS: Aspirin Baby 81mg GT SCH (08:24)
[2018-09-05] MEDS: levETIRAcetam 500mg/5ml Liquid NG SCH ×2 (08:26→21:52)
[2018-09-05] MEDS: Piperacillin/Tazobactam 3.375 GM in NS 110 ML IVPB SCH ×3 (08:30→21:54)
--- NOTE | 2018-09-05 09:04 | NUR ---
NURSE NOTES: left msg for Dr Bellamy re preliminary results blood cx, awaiting response. Addendum: 09/05/[address] RN CALLED BACK DR BELLAMY AWARE OF RESULTS, NO NEW ORDER
[2018-09-05 12:00] VITALS: BP 150/75
--- NOTE | 2018-09-05 13:13 | Surgery Progress Note ---
Surgery Progress Note Subjective Additional Comments no acute events. labs stable. exam unchanged. dressings going well. Objective Last 24 Hour Vital Signs Date Time Temp Pulse Resp B/P (MAP) Pulse Ox O2 Delivery O2 Flow Rate FiO2 09/05/18 12:00 97.9 87 20 150/75 (100) 98 09/05/18 10:27 97.9 09/05/18 09:00 Nasal Cannula 2.0 09/05/18 08:24 80 147/59 09/05/18 08:00 79 09/05/18 07:59 97.9 80 20 147/59 (88) 98 09/05/18 04:00 97.9 84 20 130/59 (82) 98 09/05/18 04:00 78 09/05/18 00:00 63 09/05/18 00:00 98.0 72 20 126/85 (99) 100 09/04/18 21:00 Nasal Cannula 2.0 09/04/18 20:00 99 09/04/18 20:00 97.3 79 20 142/75 (97) 98 09/04/18 19:58 Nasal Cannula 2.0 28 09/04/18 19:58 97 Nasal Cannula 2.0 28 09/04/18 18:00 142/92 09/04/18 16:00 91 09/04/18 16:00 98.6 91 16 110/55 (73) 98 I&O Intake and Output 09/04/18 09/05/18 19:00 07:00 Intake Total 20 ml 940.0 ml Output Total 800 ml 1500 ml Balance -780 ml -560.0 ml Intake Free Water 200 ml IV Total 410.0 ml Tube Feeding 20 ml 330 ml Output Urine Total 800 ml 1500 ml Dressing: saturated Wound: other Drains: other Cardiovascular: RSR Respiratory: clear, decreased breath sounds Abdomen: soft, present bowel sounds, other, non-distended Extremities: other Laboratory Tests Test 09/05/18 06:20 White Blood Count 5.4 K/UL (4.8-10.8) Red Blood Count 3.99 M/UL (4.20-5.40) L Hemoglobin 12.6 G/DL (12.0-16.0) Hematocrit 37.9 % (37.0-47.0) Mean Corpuscular Volume 95 FL (80-99) Mean Corpuscular Hemoglobin 31.6 PG (27.0-31.0) H Mean Corpuscular Hemoglobin Concent 33.3 G/DL (32.0-36.0) Red Cell Distribution Width 17.5 % (11.6-14.8) H Platelet Count 131 K/UL (150-450) L Mean Platelet Volume 9.7 FL (6.5-10.1) Neutrophils (%) (Auto) 59.7 % (45.0-75.0) Lymphocytes (%) (Auto) 31.4 % (20.0-45.0) Monocytes (%) (Auto) 5.7 % (1.0-10.0) Eosinophils (%) (Auto) 2.6 % (0.0-3.0) Basophils (%) (Auto) 0.6 % (0.0-2.0) Sodium Level 149 MMOL/L (136-145) H Potassium Level 4.2 MMOL/L (3.5-5.1) Chloride Level 111 MMOL/L (98-107) H Carbon Dioxide Level 25 MMOL/L (21-32) Anion Gap 13 mmol/L (5-15) Blood Urea Nitrogen 44 mg/dL (7-18) H Creatinine 1.9 MG/DL (0.55-1.30) H Estimat Glomerular Filtration Rate mL/min (>60) Glucose Level 117 MG/DL (74-106) H Uric Acid 7.9 MG/DL (2.6-7.2) H Calcium Level 8.2 MG/DL (8.5-10.1) L Phosphorus Level 3.1 MG/DL (2.5-4.9) Magnesium Level 2.0 MG/DL (1.8-2.4) Total Bilirubin 0.4 MG/DL (0.2-1.0) Gamma Glutamyl Transpeptidase 34 U/L (5-85) Aspartate Amino Transf (AST/SGOT) 24 U/L (15-37) Alanine Aminotransferase (ALT/SGPT) 21 U/L (12-78) Alkaline Phosphatase 74 U/L (46-116) Troponin I 0.026 ng/mL (0.000-0.056) C-Reactive Protein, Quantitative 23.4 mg/dL (0.00-0.90) H Pro-B-Type Natriuretic Peptide 2887 pg/mL (0-125) H Total Protein 8.8 G/DL (6.4-8.2) H Albumin 2.6 G/DL (3.4-5.0) L Globulin 6.2 g/dL Albumin/Globulin Ratio 0.4 (1.0-2.7) L Plan Problems: (1) Sacral decubitus ulcer Assessment & Plan: Pt presented on admission with Full Thickness Sacral Pressure Injury. Base of wound has 75% pink granulation with scattered dry brown eschar (25%).Small amt of sanguineous exudate noted. Edges flat and adherent to base of wound. Darker Skin tone without erythema induration or fluctuance periwound.(L)7.5cm x (W)8.5cm. Erythema noted to perineum and medial aspects of both upper thighs. R heel dry and boggy with Hyperpigmentation from previous wound. Darker skin tone without fluctuance or induration noted to R hallux. 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 No other areas of Skin Breakdown noted. Treatment plan: Cleanse Sacrum with Saline. Apply Therahoney to areas of Eschar in wound. Apply Triad paste to Viable areas of wound. Cover with Optifoam drsg. Change every 3 days and prn. Apply Cavilon Skin Barrier to R heel. Cover with Optifoam drsg. Change every 7 days and prn. APM/KALE Mattress overlay. Reposition at least every 2 hours or as tolerated. Off-load R heel with Pillow. 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 thank you (15) Diabetes (16) Dementia (17) CKD (chronic kidney disease) (18) Seizure disorder (19) Functional quadriplegia (20) G tube feedings Assessment & Plan: DAILY ESTIMATED NEEDS: Needs based on DM, Wounds (Adj wt 58.5kg) 25-30 kcals/kg 2570-0635 total kcals 1.25-1.5 g protein/kg 73-88 g total protein 25-30 mL/kg 1843-0175 total fluid mLs NUTRITION DIAGNOSIS: 1) Swallowing difficulty r/t dysphagia as evidenced by pt is PEG dep, NPO at this time. 2) Increased protein, micronutrient needs r/t wound healing as evidenced by sacral open wound per photo, pending eval CURRENT TF:NPO ENTERAL NUTRITION RECOMMENDATIONS: Glucerna 1.2 @ 60ml/hr x 24 hrs to provide 1440ml, 1728kcal, 86g prot , 1159ml free water - As medically appropriate, initiate TF on Glucerna 1.2 @ 20ml/hr x 6 hrs - Advance 10ml q 4-6 hrs as tolerated to goal rate of 60mlx 24 hrs - HOB over 30 degrees/ water flush per MD. 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
--- NOTE | 2018-09-05 13:45 | NUR ---
RD ASSESSMENT & RECOMMENDATIONS SEE CARE ACTIVITY FOR COMPLETE ASSESSMENT DAILY ESTIMATED NEEDS: Needs based on DM, Wounds (Adj wt 58.5kg) 25-30 kcals/kg 0654-6571 total kcals 1.25-1.5 g protein/kg 73-88 g total protein 25-30 mL/kg 3222-7849 total fluid mLs NUTRITION DIAGNOSIS: 1) Swallowing difficulty r/t dysphagia as evidenced by pt is PEG dep, on GT feeding. 2) Increased protein, micronutrient needs r/t wound healing as evidenced by full thickness sacral pressure injury. CURRENT TF:Glucerna 1.5 @ 40ml/hr x 24 hrs ENTERAL NUTRITION RECOMMENDATIONS: Glucerna 1.2 @ 60ml/hr x 24 hrs to provide 1440ml, 1728kcal, 86g prot , 1159ml free water - Rec TF change to Glucerna 1.2 for increased free water - Initiate TF on Glucerna 1.2 @ 30ml/hr x 6 hrs, advance 10ml q 4-6 hrs as tolerated to goal - HOB over 30 degrees/ water flush per MD. 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
--- NOTE | 2018-09-05 15:54 | NUR ---
CASE MANAGEMENT:REVIEW 09/05/18 SI: ASPIRATION PNA. AC/CHR RENAL FAILURE 97.9 87 20 150/75 98% ON 2L/NC PLT-131 NA+149 BUN+44 CR+1.9 IS: IV ZOSYN Q12 IV ZYVOX Q12 KEPPRA GT Q12 ULTRAM GT Q6 K-DUR GT BID NORVASC GT QD ELIQUIS GT BID ASA GT QD CARAFATE GT QID : TELEMETRY STATUS
--- NOTE | 2018-09-05 15:57 | Infectious Diseases Prog Note ---
Assessment/Plan Problems: (1) Bacteremia Assessment & Plan: with gram positive cocci in clusters , suspect staphylococcus , grew out of two blood culture here , final culture report from [place] showed contaminants . will continue zyvox empirically pending final cultures here to confirm (2) Aspiration pneumonia Assessment & Plan: continue zosyn empirically for 8 days , aspiration precaution, Keep HOB > 30 degree (3) Sacral decubitus ulcer Assessment & Plan: not infected, continue local wound care and dressings change as per hospital protocol (4) UTI (urinary tract infection) Assessment & Plan: pending urine culture to confirm, she is on zosyn already (5) Diabetes Assessment & Plan: recommend tight glycemic control to keep blood glucose between 100-130 (6) CKD (chronic kidney disease) Assessment & Plan: suspect dehydration, continue ivf for hydration, and renally dosed meds, nephrology is following Subjective ROS Limited/Unobtainable: Yes Allergies: Coded Allergies: METOCLOPRAMIDE (Verified Allergy, Unknown, 03/10/18) extrapyramidal Sx Subjective she was lying in bed, unresponsive, afebrile, not in distress Objective Vital Signs Last 24 Hour Vital Signs Date Time Temp Pulse Resp B/P (MAP) Pulse Ox O2 Delivery O2 Flow Rate FiO2 09/05/18 12:42 87 09/05/18 12:00 97.9 87 20 150/75 (100) 98 09/05/18 10:27 97.9 09/05/18 09:00 Nasal Cannula 2.0 09/05/18 08:24 80 147/59 09/05/18 08:00 79 09/05/18 07:59 97.9 80 20 147/59 (88) 98 09/05/18 07:55 Nasal Cannula 2.0 28 09/05/18 07:55 98 Nasal Cannula 2.0 28 09/05/18 04:00 97.9 84 20 130/59 (82) 98 09/05/18 04:00 78 09/05/18 00:00 63 09/05/18 00:00 98.0 72 20 126/85 (99) 100 09/04/18 21:00 Nasal Cannula 2.0 09/04/18 20:00 99 09/04/18 20:00 97.3 79 20 142/75 (97) 98 09/04/18 19:58 Nasal Cannula 2.0 28 09/04/18 19:58 97 Nasal Cannula 2.0 28 09/04/18 18:00 142/92 09/04/18 16:00 91 09/04/18 16:00 98.6 91 16 110/55 (73) 98 Height (Feet): 5 Height (Inches): 6.00 Weight (Pounds): 154 General Appearance: WD/WN, no acute distress HEENT: normocephalic, atraumatic, anicteric, mucous membranes moist, PERRL, EOMI, pharynx normal, supple, no JVD Respiratory/Chest: chest wall non-tender, lungs clear, normal breath sounds, no respiratory distress, no accessory muscle use Cardiovascular: normal peripheral pulses, normal rate, regular rhythm, no gallop/murmur, no JVD Abdomen: normal bowel sounds, soft, non tender, no organomegaly, non distended , no mass, no scars Genitourinary: normal external genitalia Extremities: no cyanosis, no clubbing Skin: no rash, no lesions, no ulcers Neurologic/Psychiatric: 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 Complete Laboratory Tests Test 09/05/18 06:20 White Blood Count 5.4 K/UL (4.8-10.8) Red Blood Count 3.99 M/UL (4.20-5.40) L Hemoglobin 12.6 G/DL (12.0-16.0) Hematocrit 37.9 % (37.0-47.0) Mean Corpuscular Volume 95 FL (80-99) Mean Corpuscular Hemoglobin 31.6 PG (27.0-31.0) H Mean Corpuscular Hemoglobin Concent 33.3 G/DL (32.0-36.0) Red Cell Distribution Width 17.5 % (11.6-14.8) H Platelet Count 131 K/UL (150-450) L Mean Platelet Volume 9.7 FL (6.5-10.1) Neutrophils (%) (Auto) 59.7 % (45.0-75.0) Lymphocytes (%) (Auto) 31.4 % (20.0-45.0) Monocytes (%) (Auto) 5.7 % (1.0-10.0) Eosinophils (%) (Auto) 2.6 % (0.0-3.0) Basophils (%) (Auto) 0.6 % (0.0-2.0) Sodium Level 149 MMOL/L (136-145) H Potassium Level 4.2 MMOL/L (3.5-5.1) Chloride Level 111 MMOL/L (98-107) H Carbon Dioxide Level 25 MMOL/L (21-32) Anion Gap 13 mmol/L (5-15) Blood Urea Nitrogen 44 mg/dL (7-18) H Creatinine 1.9 MG/DL (0.55-1.30) H Estimat Glomerular Filtration Rate mL/min (>60) Glucose Level 117 MG/DL (74-106) H Uric Acid 7.9 MG/DL (2.6-7.2) H Calcium Level 8.2 MG/DL (8.5-10.1) L Phosphorus Level 3.1 MG/DL (2.5-4.9) Magnesium Level 2.0 MG/DL (1.8-2.4) Total Bilirubin 0.4 MG/DL (0.2-1.0) Gamma Glutamyl Transpeptidase 34 U/L (5-85) Aspartate Amino Transf (AST/SGOT) 24 U/L (15-37) Alanine Aminotransferase (ALT/SGPT) 21 U/L (12-78) Alkaline Phosphatase 74 U/L (46-116) Troponin I 0.026 ng/mL (0.000-0.056) C-Reactive Protein, Quantitative 23.4 mg/dL (0.00-0.90) H Pro-B-Type Natriuretic Peptide 2887 pg/mL (0-125) H Total Protein 8.8 G/DL (6.4-8.2) H Albumin 2.6 G/DL (3.4-5.0) L Globulin 6.2 g/dL Albumin/Globulin Ratio 0.4 (1.0-2.7) L Current Medications Medications (Trade) Dose Ordered Sig/Nancy Route PRN Reason Start Time Stop Time Status Last Admin Dose Admin Amlodipine Besylate (Norvasc) 5 mg DAILY GT 09/03/18 09:00 10/02/18 08:59 09/05/18 08:24 Apixaban (Eliquis) 2.5 mg BID GT 09/02/18 18:00 10/01/18 17:59 09/05/18 08:24 Aspirin (ASA) 81 mg DAILY GT 09/02/18 09:00 10/02/18 08:59 09/05/18 08:24 Dextrose (Dextrose 50%) 25 ml Q30M PRN IV Hypoglycemia 09/01/18 17:15 10/01/18 17:14 Dextrose (Dextrose 50%) 50 ml Q30M PRN IV Hypoglycemia 09/01/18 17:15 10/01/18 17:14 Erythromycin (Erickson-Ped) 50 mg Q6HR GT 09/01/18 18:00 09/08/18 17:59 09/05/18 12:19 Hydralazine HCl (Apresoline) 25 mg Q4H PRN GT BP over 160 syst 09/01/18 15:00 10/01/18 14:59 Insulin Aspart (NovoLOG) Q6HR SUBQ 09/01/18 18:00 10/01/18 17:59 09/05/18 11:30 Lansoprazole (Prevacid) 30 mg BID GT 09/04/18 18:00 10/04/18 17:59 09/05/18 08:25 Levetiracetam (Keppra) 1,000 mg Q12HR NG 09/04/18 21:00 10/04/18 20:59 09/05/18 08:26 Linezolid 300 ml @ 300 mls/hr Q12HR IVPB 09/04/18 00:00 09/11/18 00:00 09/05/18 08:31 Nitroglycerin (Ntg) 1 patch Q24H TDERMAL 09/01/18 18:00 10/01/18 17:59 09/04/18 18:00 Ondansetron HCl (Zofran) 4 mg Q6H PRN IVP Nausea & Vomiting 09/01/18 15:00 10/01/18 14:59 Piperacillin Sod/ Tazobactam Sod 3.375 gm/Sodium Chloride 110 ml @ 27.5 mls/hr EVERY 12 HOURS IVPB 09/04/18 00:00 09/11/18 00:00 09/05/18 08:31 Potassium Chloride (K-Dur) 40 meq BID GT 09/04/18 09:00 10/03/18 08:59 09/05/18 08:24 Sodium Citrate (Bicitra) 30 ml EVERY 6 HOURS GT 09/03/18 12:45 10/03/18 12:44 09/05/18 11:44 Sucralfate (Carafate) 1 gm FOUR TIMES A DAY GT 09/01/18 18:00 10/01/18 17:59 09/05/18 12:19 Tramadol HCl (Ultram) 50 mg Q6H GT 09/04/18 16:00 09/08/18 15:59 09/05/18 09:57 Ayala Forman M.D. September 05, 2018 15:57
[2018-09-05 16:00] VITALS: BP 140/75
--- NOTE | 2018-09-05 16:21 | General Progress Note ---
Assessment/Plan Problem List: (1) Aspiration pneumonia ICD Codes: J69.0 - Pneumonitis due to inhalation of food and vomit SNOMED: 162569188 (2) Acute on chronic renal failure ICD Codes: N17.9 - Acute kidney failure, unspecified; N18.9 - Chronic kidney disease, unspecified SNOMED: 681056150 (3) Seizure disorder ICD Codes: G40.909 - Epilepsy, unspecified, not intractable, without status epilepticus SNOMED: 210386484 (4) Functional quadriplegia ICD Codes: R53.2 - Functional quadriplegia SNOMED: 710632030842606 (5) G tube feedings ICD Codes: Z93.1 - G tube feedings SNOMED: 693277714 (6) Diabetes ICD Codes: E11.9 - Type 2 diabetes mellitus without complications SNOMED: 41309902 (7) Anemia in CKD (chronic kidney disease) ICD Codes: N18.9 - Chronic kidney disease, unspecified; D63.1 - Anemia in chronic kidney disease SNOMED: 845878717 Status: stable, unchanged Assessment/Plan: transfuse- one dose Zaroxylin again today down on IV fluids- start feeding Shruthisysangeeta has Vanco on board HHN Monitor renal parameters per orders BP and BS check Pain management per ID advise Subjective ROS Limited/Unobtainable: No Constitutional: Reports: malaise Allergies: Coded Allergies: METOCLOPRAMIDE (Verified Allergy, Unknown, 03/10/18) extrapyramidal Sx Objective Last 24 Hour Vital Signs Date Time Temp Pulse Resp B/P (MAP) Pulse Ox O2 Delivery O2 Flow Rate FiO2 09/05/18 12:42 87 09/05/18 12:00 97.9 87 20 150/75 (100) 98 09/05/18 10:27 97.9 09/05/18 09:00 Nasal Cannula 2.0 09/05/18 08:24 80 147/59 09/05/18 08:00 79 09/05/18 07:59 97.9 80 20 147/59 (88) 98 09/05/18 07:55 Nasal Cannula 2.0 28 09/05/18 07:55 98 Nasal Cannula 2.0 28 09/05/18 04:00 97.9 84 20 130/59 (82) 98 09/05/18 04:00 78 09/05/18 00:00 63 09/05/18 00:00 98.0 72 20 126/85 (99) 100 09/04/18 21:00 Nasal Cannula 2.0 09/04/18 20:00 99 09/04/18 20:00 97.3 79 20 142/75 (97) 98 09/04/18 19:58 Nasal Cannula 2.0 28 09/04/18 19:58 97 Nasal Cannula 2.0 28 09/04/18 18:00 142/92 Intake and Output 09/04/18 09/05/18 18:59 06:59 Intake Total 87.5 ml 920.0 ml Output Total 800 ml 1500 ml Balance -712.5 ml -580.0 ml Intake Free Water 200 ml IV Total 77.5 ml 410.0 ml Tube Feeding 10 ml 310 ml Output Urine Total 800 ml 1500 ml Laboratory Tests 09/05/18 06:20: White Blood Count 5.4, Red Blood Count 3.99L, Hemoglobin 12.6, Hematocrit 37.9, Mean Corpuscular Volume 95, Mean Corpuscular Hemoglobin 31.6H, Mean Corpuscular Hemoglobin Concent 33.3, Red Cell Distribution Width 17.5H, Platelet Count 131L , Mean Platelet Volume 9.7, Neutrophils (%) (Auto) 59.7, Lymphocytes (%) (Auto) 31.4, Monocytes (%) (Auto) 5.7, Eosinophils (%) (Auto) 2.6, Basophils (%) (Auto ) 0.6, Sodium Level 149H, Potassium Level 4.2, Chloride Level 111H, Carbon Dioxide Level 25, Anion Gap 13, Blood Urea Nitrogen 44H, Creatinine 1.9H, Estimat Glomerular Filtration Rate , Glucose Level 117H, Uric Acid 7.9H, Calcium Level 8.2L, Phosphorus Level 3.1, Magnesium Level 2.0, Total Bilirubin 0.4, Gamma Glutamyl Transpeptidase 34, Aspartate Amino Transf (AST/SGOT) 24, Alanine Aminotransferase (ALT/SGPT) 21, Alkaline Phosphatase 74, Troponin I 0.026, C-Reactive Protein, Quantitative 23.4H, Pro-B-Type Natriuretic Peptide 2887H, Total Protein 8.8H, Albumin 2.6L, Globulin 6.2, Albumin/Globulin Ratio 0.4L Height (Feet): 5 Height (Inches): 6.00 Weight (Pounds): 154 General Appearance: no apparent distress Neck: limited range of motion Cardiovascular: normal rate Respiratory/Chest: decreased breath sounds Abdomen: soft, distended Estevna Orozco MD September 05, 2018 16:21
[2018-09-05] MEDS: Nitroglycerin Patch 0.4mg TDERMAL SCH (17:11)
--- NOTE | 2018-09-05 19:20 | NUR ---
HAND-OFF: Report given to JOSH SMITH.
--- NOTE | 2018-09-05 19:25 | NUR ---
NURSE NOTES: Received report from LUIS Farfan. Patient in bed awake showing no signs of acute distress. Respiration even and non labored. No Sob noted. IV patent and intact. GT patent and intact. Aspiration and Seizure precaution observed. Bed side padded. Bed in lowest position. Bed alarm on, and wheels locked. Call light within reach. All needs attended and met. Will continue plan of care.
[2018-09-05 20:00] VITALS: BP 128/63
[2018-09-06] VITALS: BP 141/58
[2018-09-06] MEDS: Sodium Citrate 30ml GT SCH ×5 (00:24→23:11)
[2018-09-06] MEDS: Erythromycin Ethylsuccinate 200mg/5ml Susp GT SCH ×5 (00:24→23:11)
[2018-09-06] MEDS: NovoLOG Insulin Flexpen SUBQ SCH ×5 (01:00→23:12)
[2018-09-06 04:00] VITALS: BP 117/59
[2018-09-06] MEDS: traMADol 50mg tab GT SCH ×4 (04:18→21:17)
--- NOTE | 2018-09-06 07:36 | NUR ---
HAND-OFF: Report given to LUIS Mackenzie.
--- NOTE | 2018-09-06 07:43 | NUR ---
NURSE NOTES: Received report from Soha/RN, Patient is resting. No acute distress/SOB noted. Glucerna running @ 40cc/hr, IV on right 20 gauge saline locked. Bed in low position, Call light within reach. Will continue plan of care.
[2018-09-06 08:00] VITALS: BP 155/92
[2018-09-06] MEDS: Aspirin Baby 81mg GT SCH (09:21)
[2018-09-06] MEDS: Sucralfate 1gm tab GT SCH ×4 (09:22→20:11)
[2018-09-06] MEDS: Eliquis 2.5mg tablet GT SCH ×2 (09:23→17:18)
[2018-09-06] MEDS: levETIRAcetam 500mg/5ml Liquid NG SCH ×2 (09:24→20:12)
--- NOTE | 2018-09-06 10:06 | Diagnostic Imaging Report ---
EXAM: XR Chest, 1 View. CLINICAL HISTORY: COUGH TECHNIQUE: Frontal view of the chest. COMPARISON: 09/04/18 at 0917 hrs. FINDINGS: Lungs: Again seen are patchy interstitial opacities, with mildly increased interstitial markings bilaterally, consistent with pulmonary edema. This appears unchanged to slightly worsened when compared to the prior exam 2 days ago. Lung volumes are stable. There may be some new underlying airspace consolidation within the left lung. Pleural spaces: Unremarkable. No pneumothorax. Heart: Unremarkable. Cardiac silhouette is unchanged. Mediastinum: No mediastinal widening or shift. Bones: Unremarkable. No acute fracture. IMPRESSION: Pulmonary edema, unchanged to minimally worsened since the prior study. Questionable new underlying airspace consolidation in left lung. Developing pneumonia is not excluded.
[2018-09-06] MEDS: Piperacillin/Tazobactam 3.375 GM in NS 110 ML IVPB SCH ×2 (10:48→21:17)
[2018-09-06 12:00] VITALS: BP 136/70
--- NOTE | 2018-09-06 12:33 | Surgery Progress Note ---
Surgery Progress Note Subjective Additional Comments no acute events. seemingly comfortable exam unchanged. Objective Last 24 Hour Vital Signs Date Time Temp Pulse Resp B/P (MAP) Pulse Ox O2 Delivery O2 Flow Rate FiO2 09/06/18 09:23 85 155/92 09/06/18 08:00 97.6 85 22 155/92 (113) 97 09/06/18 04:00 81 09/06/18 04:00 97.9 79 20 117/59 (78) 100 09/06/18 00:00 97.2 81 20 141/58 (85) 96 09/06/18 00:00 78 09/05/18 21:00 Nasal Cannula 2.0 09/05/18 20:09 Nasal Cannula 2.0 28 09/05/18 20:09 98 Nasal Cannula 2.0 28 09/05/18 20:00 80 09/05/18 20:00 98.2 81 20 128/63 (84) 96 09/05/18 17:11 140/75 09/05/18 16:46 97.9 09/05/18 16:00 98.4 90 20 140/75 (96) 98 09/05/18 15:46 81 09/05/18 12:42 87 I&O Intake and Output 09/05/18 09/06/18 19:00 07:00 Intake Total 1010.0 ml Output Total 1000 ml 1500 ml Balance 10.0 ml -1500 ml Intake Free Water 200 ml IV Total 410.0 ml Tube Feeding 400 ml Output Urine Total 1000 ml 1500 ml Dressing: saturated Wound: other Drains: other Cardiovascular: RSR Respiratory: clear Abdomen: soft, flat, non-tender, present bowel sounds, non-distended Extremities: no tenderness, no cyanosis Plan Problems: (1) Sacral decubitus ulcer Assessment & Plan: Pt presented on admission with Full Thickness Sacral Pressure Injury. Base of wound has 75% pink granulation with scattered dry brown eschar (25%).Small amt of sanguineous exudate noted. Edges flat and adherent to base of wound. Darker Skin tone without erythema induration or fluctuance periwound.(L)7.5cm x (W)8.5cm. Erythema noted to perineum and medial aspects of both upper thighs. R heel dry and boggy with Hyperpigmentation from previous wound. Darker skin tone without fluctuance or induration noted to R hallux. 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 No other areas of Skin Breakdown noted. Treatment plan: Cleanse Sacrum with Saline. Apply Therahoney to areas of Eschar in wound. Apply Triad paste to Viable areas of wound. Cover with Optifoam drsg. Change every 3 days and prn. Apply Cavilon Skin Barrier to R heel. Cover with Optifoam drsg. Change every 7 days and prn. APM/KALE Mattress overlay. Reposition at least every 2 hours or as tolerated. Off-load R heel with Pillow. 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 thank you (15) Diabetes (16) Dementia (17) CKD (chronic kidney disease) (18) Seizure disorder (19) Functional quadriplegia (20) G tube feedings Assessment & Plan: DAILY ESTIMATED NEEDS: Needs based on DM, Wounds (Adj wt 58.5kg) 25-30 kcals/kg 1232-6587 total kcals 1.25-1.5 g protein/kg 73-88 g total protein 25-30 mL/kg 0722-7991 total fluid mLs NUTRITION DIAGNOSIS: 1) Swallowing difficulty r/t dysphagia as evidenced by pt is PEG dep, NPO at this time. 2) Increased protein, micronutrient needs r/t wound healing as evidenced by sacral open wound per photo, pending eval CURRENT TF:NPO ENTERAL NUTRITION RECOMMENDATIONS: Glucerna 1.2 @ 60ml/hr x 24 hrs to provide 1440ml, 1728kcal, 86g prot , 1159ml free water - As medically appropriate, initiate TF on Glucerna 1.2 @ 20ml/hr x 6 hrs - Advance 10ml q 4-6 hrs as tolerated to goal rate of 60mlx 24 hrs - HOB over 30 degrees/ water flush per MD. 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
--- NOTE | 2018-09-06 15:17 | Infectious Diseases Prog Note ---
Assessment/Plan Problems: (1) Bacteremia Assessment & Plan: with coag negative staphylococcus , grew out of two blood culture from three bottles , final culture report from [facility] showed contaminants . will continue zyvox for two weeks (2) Aspiration pneumonia Assessment & Plan: continue zosyn empirically for 10 days , aspiration precaution, Keep HOB > 30 degree (3) Sacral decubitus ulcer Assessment & Plan: not infected, continue local wound care and dressings change as per hospital protocol (4) UTI (urinary tract infection) Assessment & Plan: pending urine culture to confirm, she is on zosyn already (5) Diabetes Assessment & Plan: recommend tight glycemic control to keep blood glucose between 100-130 (6) CKD (chronic kidney disease) Assessment & Plan: suspect dehydration, continue ivf for hydration, and renally dosed meds, nephrology is following Subjective ROS Limited/Unobtainable: Yes Allergies: Coded Allergies: METOCLOPRAMIDE (Verified Allergy, Unknown, 03/10/18) extrapyramidal Sx Subjective she was lying in bed, unresponsive, afebrile, not in distress Objective Vital Signs Last 24 Hour Vital Signs Date Time Temp Pulse Resp B/P (MAP) Pulse Ox O2 Delivery O2 Flow Rate FiO2 09/06/18 12:00 80 09/06/18 12:00 98.0 84 22 136/70 (92) 94 09/06/18 09:23 85 155/92 09/06/18 09:00 Nasal Cannula 2.0 09/06/18 08:00 97.6 85 22 155/92 (113) 97 09/06/18 08:00 81 09/06/18 04:00 81 09/06/18 04:00 97.9 79 20 117/59 (78) 100 09/06/18 00:00 97.2 81 20 141/58 (85) 96 09/06/18 00:00 78 09/05/18 21:00 Nasal Cannula 2.0 09/05/18 20:09 Nasal Cannula 2.0 28 09/05/18 20:09 98 Nasal Cannula 2.0 28 09/05/18 20:00 80 09/05/18 20:00 98.2 81 20 128/63 (84) 96 09/05/18 17:11 140/75 09/05/18 16:46 97.9 09/05/18 16:00 98.4 90 20 140/75 (96) 98 09/05/18 15:46 81 Height (Feet): 5 Height (Inches): 6.00 Weight (Pounds): 154 General Appearance: WD/WN, no acute distress HEENT: normocephalic, atraumatic, anicteric, mucous membranes moist, PERRL, EOMI, pharynx normal, supple, no JVD Respiratory/Chest: chest wall non-tender, no respiratory distress, no accessory muscle use, decreased breath sounds, crackles/rales Cardiovascular: normal peripheral pulses, normal rate, regular rhythm, no gallop/murmur, no JVD Abdomen: normal bowel sounds, soft, non tender, no organomegaly, non distended , no mass, no scars Genitourinary: normal external genitalia Extremities: no cyanosis, no clubbing Skin: no rash, no lesions, no ulcers Neurologic/Psychiatric: unresponsiveness Lymphatic: no neck adenopathy, no groin adenopathy Musculoskeletal: normal muscle bulk, no effusion Microbiology Date/Time Source Procedure Growth Status 09/03/18 20:45 Blood Blood Culture - Preliminary Staphylococcus Sp Coag Neg Resulted 09/03/18 20:30 Blood Blood Culture - Preliminary Staphylococcus Sp Coag Neg Resulted Current Medications Medications (Trade) Dose Ordered Sig/Nancy Route PRN Reason Start Time Stop Time Status Last Admin Dose Admin Amlodipine Besylate (Norvasc) 5 mg DAILY GT 09/03/18 09:00 10/02/18 08:59 09/06/18 09:23 Apixaban (Eliquis) 2.5 mg BID GT 09/02/18 18:00 10/01/18 17:59 09/06/18 09:23 Aspirin (ASA) 81 mg DAILY GT 09/02/18 09:00 10/02/18 08:59 09/06/18 09:21 Dextrose (Dextrose 50%) 25 ml Q30M PRN IV Hypoglycemia 09/01/18 17:15 10/01/18 17:14 Dextrose (Dextrose 50%) 50 ml Q30M PRN IV Hypoglycemia 09/01/18 17:15 10/01/18 17:14 Erythromycin (Erickson-Ped) 50 mg Q6HR GT 09/01/18 18:00 09/08/18 17:59 09/06/18 12:24 Hydralazine HCl (Apresoline) 25 mg Q4H PRN GT BP over 160 syst 09/01/18 15:00 10/01/18 14:59 Insulin Aspart (NovoLOG) Q6HR SUBQ 09/01/18 18:00 10/01/18 17:59 09/06/18 12:28 Lansoprazole (Prevacid) 30 mg BID GT 09/04/18 18:00 10/04/18 17:59 09/06/18 09:22 Levetiracetam (Keppra) 1,000 mg Q12HR NG 09/04/18 21:00 10/04/18 20:59 09/06/18 09:24 Linezolid 300 ml @ 300 mls/hr Q12HR IVPB 09/04/18 00:00 09/11/18 00:00 09/06/18 09:21 Nitroglycerin (Ntg) 1 patch Q24H TDERMAL 09/01/18 18:00 10/01/18 17:59 09/05/18 17:11 Ondansetron HCl (Zofran) 4 mg Q6H PRN IVP Nausea & Vomiting 09/01/18 15:00 10/01/18 14:59 Piperacillin Sod/ Tazobactam Sod 3.375 gm/Sodium Chloride 110 ml @ 27.5 mls/hr EVERY 12 HOURS IVPB 09/04/18 00:00 09/11/18 00:00 09/06/18 10:48 Potassium Chloride (K-Dur) 40 meq DAILY GT 09/06/18 09:00 10/03/18 08:59 09/06/18 09:22 Sodium Citrate (Bicitra) 30 ml EVERY 6 HOURS GT 09/03/18 12:45 10/03/18 12:44 09/06/18 12:24 Sucralfate (Carafate) 1 gm FOUR TIMES A DAY GT 09/01/18 18:00 10/01/18 17:59 09/06/18 12:24 Tramadol HCl (Ultram) 50 mg Q6H GT 09/04/18 16:00 09/08/18 15:59 09/06/18 09:23 Ayala Forman M.D. September 06, 2018 15:17
[2018-09-06 16:00] VITALS: BP 156/74
[2018-09-06] MEDS ORDERED: NS 500ML ONE (16:19)
[2018-09-06] MEDS ORDERED: Tubing IV Blood Pump IV ONE (16:19)
[2018-09-06] MEDS ORDERED: NS 275ml ONE (16:19)
[2018-09-06] MEDS ORDERED: Tubing IV Secondary IV ONE (16:19)
--- NOTE | 2018-09-06 16:45 | General Progress Note ---
Assessment/Plan Problem List: (1) Aspiration pneumonia ICD Codes: J69.0 - Pneumonitis due to inhalation of food and vomit SNOMED: 787482208 (2) Acute on chronic renal failure ICD Codes: N17.9 - Acute kidney failure, unspecified; N18.9 - Chronic kidney disease, unspecified SNOMED: 350878809 (3) Seizure disorder ICD Codes: G40.909 - Epilepsy, unspecified, not intractable, without status epilepticus SNOMED: 606377850 (4) Functional quadriplegia ICD Codes: R53.2 - Functional quadriplegia SNOMED: 121196892892393 (5) G tube feedings ICD Codes: Z93.1 - G tube feedings SNOMED: 555627610 (6) Diabetes ICD Codes: E11.9 - Type 2 diabetes mellitus without complications SNOMED: 64855416 (7) Anemia in CKD (chronic kidney disease) ICD Codes: N18.9 - Chronic kidney disease, unspecified; D63.1 - Anemia in chronic kidney disease SNOMED: 430467319 Status: stable, unchanged Assessment/Plan: transfuse- one dose Zaroxylin again today down on IV fluids- start feeding Millicent has Vanco on board HHN Monitor renal parameters per orders BP and BS check Pain management per ID advise Subjective ROS Limited/Unobtainable: No Constitutional: Reports: malaise Allergies: Coded Allergies: METOCLOPRAMIDE (Verified Allergy, Unknown, 03/10/18) extrapyramidal Sx Objective Last 24 Hour Vital Signs Date Time Temp Pulse Resp B/P (MAP) Pulse Ox O2 Delivery O2 Flow Rate FiO2 09/06/18 12:00 80 09/06/18 12:00 98.0 84 22 136/70 (92) 94 09/06/18 09:23 85 155/92 09/06/18 09:00 Nasal Cannula 2.0 09/06/18 08:00 97.6 85 22 155/92 (113) 97 09/06/18 08:00 81 09/06/18 04:00 81 09/06/18 04:00 97.9 79 20 117/59 (78) 100 09/06/18 00:00 97.2 81 20 141/58 (85) 96 09/06/18 00:00 78 09/05/18 21:00 Nasal Cannula 2.0 5/3/19 20:09 Nasal Cannula 2.0 28 09/05/18 20:09 98 Nasal Cannula 2.0 28 09/05/18 20:00 80 09/05/18 20:00 98.2 81 20 128/63 (84) 96 09/05/18 17:11 140/75 09/05/18 16:46 97.9 Intake and Output 09/05/18 09/06/18 19:00 07:00 Intake Total 1010.0 ml Output Total 1000 ml 1500 ml Balance 10.0 ml -1500 ml Intake Free Water 200 ml IV Total 410.0 ml Tube Feeding 400 ml Output Urine Total 1000 ml 1500 ml Current Medications Medications (Trade) Dose Ordered Sig/Nancy Route PRN Reason Start Time Stop Time Status Last Admin Dose Admin Amlodipine Besylate (Norvasc) 5 mg DAILY GT 09/03/18 09:00 10/02/18 08:59 09/06/18 09:23 Apixaban (Eliquis) 2.5 mg BID GT 09/02/18 18:00 10/01/18 17:59 09/06/18 09:23 Aspirin (ASA) 81 mg DAILY GT 09/02/18 09:00 10/02/18 08:59 09/06/18 09:21 Dextrose (Dextrose 50%) 25 ml Q30M PRN IV Hypoglycemia 09/01/18 17:15 10/01/18 17:14 Dextrose (Dextrose 50%) 50 ml Q30M PRN IV Hypoglycemia 09/01/18 17:15 10/01/18 17:14 Erythromycin (Erickson-Ped) 50 mg Q6HR GT 09/01/18 18:00 09/08/18 17:59 09/06/18 12:24 Hydralazine HCl (Apresoline) 25 mg Q4H PRN GT BP over 160 syst 09/01/18 15:00 10/01/18 14:59 Insulin Aspart (NovoLOG) Q6HR SUBQ 09/01/18 18:00 10/01/18 17:59 09/06/18 12:28 Lansoprazole (Prevacid) 30 mg BID GT 09/04/18 18:00 10/04/18 17:59 09/06/18 09:22 Levetiracetam (Keppra) 1,000 mg Q12HR NG 09/04/18 21:00 10/04/18 20:59 09/06/18 09:24 Linezolid 300 ml @ 300 mls/hr Q12HR IVPB 09/04/18 00:00 09/11/18 00:00 09/06/18 09:21 Nitroglycerin (Ntg) 1 patch Q24H TDERMAL 09/01/18 18:00 10/01/18 17:59 09/05/18 17:11 Ondansetron HCl (Zofran) 4 mg Q6H PRN IVP Nausea & Vomiting 09/01/18 15:00 10/01/18 14:59 Piperacillin Sod/ Tazobactam Sod 3.375 gm/Sodium Chloride 110 ml @ 27.5 mls/hr EVERY 12 HOURS IVPB 09/04/18 00:00 09/11/18 00:00 09/06/18 10:48 Potassium Chloride (K-Dur) 40 meq DAILY GT 09/06/18 09:00 10/03/18 08:59 09/06/18 09:22 Sodium Citrate (Bicitra) 30 ml EVERY 6 HOURS GT 09/03/18 12:45 10/03/18 12:44 09/06/18 12:24 Sucralfate (Carafate) 1 gm FOUR TIMES A DAY GT 09/01/18 18:00 10/01/18 17:59 09/06/18 12:24 Tramadol HCl (Ultram) 50 mg Q6H GT 09/04/18 16:00 09/08/18 15:59 09/06/18 09:23 Height (Feet): 5 Height (Inches): 6.00 Weight (Pounds): 154 Cardiovascular: normal rate Respiratory/Chest: decreased breath sounds Abdomen: distended Estevan Orozco MD September 06, 2018 16:45
[2018-09-06] MEDS: Nitroglycerin Patch 0.4mg TDERMAL SCH (17:22)
--- NOTE | 2018-09-06 19:15 | NUR ---
Received report from Avril Rn, pt. in bed with eyes open- non-verbal, no signs or symptoms of acute cardiac or respiratory distress noted, bed in lowest position and call light within easy reach, bed alarm on, side rails up x's3 and safety brakes engaged, pt. appears to be sating well on 2L NC at 97%- no distress noted, Glucerna 1.5 running at 40cc/hr- no residual noted- G tube intact, Umaña intact and draining to gravity, pt. is clean and dry, comfort measures provided, left hand 20G IV intact and patent, safety measures continued, will continue with plan of care. Addendum: 09/06/18 at 2208 by ARTIE CAMARENA RN RN side rails padded for seizure precautions- no seizure activity noted upon assessment.
--- NOTE | 2018-09-06 19:50 | NUR ---
HAND-OFF: Report given to Donell/RN, No acute distress. Endorsed plan of care.
[2018-09-06 20:00] VITALS: BP 152/79
[2018-09-07] VITALS: BP 150/75
[2018-09-07] MEDS: traMADol 50mg tab GT SCH ×4 (03:26→22:17)
[2018-09-07 03:54] VITALS: BP 147/79
[2018-09-07] MEDS: Erythromycin Ethylsuccinate 200mg/5ml Susp GT SCH ×4 (05:03→23:52)
[2018-09-07] MEDS: Sodium Citrate 30ml GT SCH ×4 (05:03→23:52)
[2018-09-07] MEDS: NovoLOG Insulin Flexpen SUBQ SCH ×4 (05:04→23:54)
--- NOTE | 2018-09-07 07:16 | NUR ---
NURSE NOTES: Received report from LUIS Marley. Patient is in stable condition. No acute distress/SOB noted. No facial grimace noted. Will continue plan of care.
--- NOTE | 2018-09-07 07:23 | NUR ---
HAND-OFF: Report given to Eom RN, pt. remains in bed no distress noted.
[2018-09-07 07:32] LABS: BASOPHILS % (AUTO) 0.5 % (0.0-2.0); EOSINOPHILS % (AUTO) 2.6 % (0.0-3.0); HEMATOCRIT 32.5 % (37.0-47.0); HEMOGLOBIN 10.6 G/DL (12.0-16.0); LYMPHOCYTES % (AUTO) 36.4 % (20.0-45.0); MEAN CORPUSCULAR VOLUME 97 FL (80-99); MONOCYTES % (AUTO) 4.5 % (1.0-10.0); PLATELET COUNT 130 K/UL (150-450); RED BLOOD COUNT 3.37 M/UL (4.20-5.40); RED CELL DISTRIBUTION WIDTH 16.6 % (11.6-14.8); WHITE BLOOD COUNT 4.6 K/UL (4.8-10.8)
[2018-09-07 07:51] LABS: ALANINE AMINOTRANSFERASE 43 U/L (12-78); ALBUMIN 2.3 G/DL (3.4-5.0); ALBUMIN/GLOBULIN RATIO 0.4 (1.0-2.7); ALKALINE PHOSPHATASE 64 U/L (46-116); ANION GAP 12 mmol/L (5-15); ASPARTATE AMINO TRANSFERASE 47 U/L (15-37); BILIRUBIN,TOTAL 0.2 MG/DL (0.2-1.0); BLOOD UREA NITROGEN 32 mg/dL (7-18); CALCIUM 8.8 MG/DL (8.5-10.1); CARBON DIOXIDE 29 MMOL/L (21-32); CHLORIDE 110 MMOL/L (98-107); CREATININE 1.6 MG/DL (0.55-1.30); PHOSPHORUS 2.8 MG/DL (2.5-4.9); POTASSIUM 3.6 MMOL/L (3.5-5.1); SODIUM 150 MMOL/L (136-145)
[2018-09-07 08:00] VITALS: BP 153/72
[2018-09-07] MEDS: Piperacillin/Tazobactam 3.375 GM in NS 110 ML IVPB SCH ×2 (09:09→16:13)
[2018-09-07] MEDS: Sucralfate 1gm tab GT SCH ×4 (09:10→20:40)
[2018-09-07] MEDS: Aspirin Baby 81mg GT SCH (09:10)
[2018-09-07] MEDS: Eliquis 2.5mg tablet GT SCH ×2 (09:11→17:41)
[2018-09-07] MEDS: levETIRAcetam 500mg/5ml Liquid NG SCH ×2 (09:11→20:40)
[2018-09-07 12:00] VITALS: BP_SYST 136; BP_SYST 156; BP_DIAS 70; BP_DIAS 75
--- NOTE | 2018-09-07 12:40 | Surgery Progress Note ---
Surgery Progress Note Subjective Additional Comments no acute events. stable. comfortable. labs noted. Objective Last 24 Hour Vital Signs Date Time Temp Pulse Resp B/P (MAP) Pulse Ox O2 Delivery O2 Flow Rate FiO2 09/07/18 12:00 97.6 98 22 136/70 (92) 94 09/07/18 09:11 93 153/72 09/07/18 09:00 Nasal Cannula 2.0 09/07/18 08:00 97.6 93 19 153/72 (99) 96 09/07/18 08:00 93 09/07/18 04:00 87 09/07/18 03:56 97.8 09/07/18 03:54 97.8 81 20 147/79 (101) 98 09/07/18 00:00 83 09/07/18 00:00 96.3 84 20 150/75 (100) 97 09/06/18 21:00 Nasal Cannula 2.0 09/06/18 20:00 98 Nasal Cannula 2.0 28 09/06/18 20:00 82 09/06/18 20:00 97.9 86 21 152/79 (103) 95 09/06/18 20:00 Nasal Cannula 2.0 28 09/06/18 17:22 156/74 09/06/18 16:00 98.8 85 22 156/74 (101) 95 09/06/18 16:00 84 I&O Intake and Output 09/06/18 09/07/18 19:00 07:00 Intake Total 40 ml 1130.0 ml Output Total 1900 ml Balance -1860 ml 1130.0 ml Intake Free Water 200 ml IV Total 410.0 ml Tube Feeding 40 ml 520 ml Output Urine Total 1900 ml # Bowel Movements 2 Dressing: saturated Wound: other Drains: other Cardiovascular: RSR Respiratory: clear Abdomen: soft, present bowel sounds, non-distended Extremities: no cyanosis Laboratory Tests Test 09/07/18 06:45 White Blood Count 4.6 K/UL (4.8-10.8) L Red Blood Count 3.37 M/UL (4.20-5.40) L Hemoglobin 10.6 G/DL (12.0-16.0) L Hematocrit 32.5 % (37.0-47.0) L Mean Corpuscular Volume 97 FL (80-99) Mean Corpuscular Hemoglobin 31.3 PG (27.0-31.0) H Mean Corpuscular Hemoglobin Concent 32.5 G/DL (32.0-36.0) Red Cell Distribution Width 16.6 % (11.6-14.8) H Platelet Count 130 K/UL (150-450) L Mean Platelet Volume 7.9 FL (6.5-10.1) Neutrophils (%) (Auto) 56.0 % (45.0-75.0) Lymphocytes (%) (Auto) 36.4 % (20.0-45.0) Monocytes (%) (Auto) 4.5 % (1.0-10.0) Eosinophils (%) (Auto) 2.6 % (0.0-3.0) Basophils (%) (Auto) 0.5 % (0.0-2.0) Sodium Level 150 MMOL/L (136-145) H Potassium Level 3.6 MMOL/L (3.5-5.1) Chloride Level 110 MMOL/L (98-107) H Carbon Dioxide Level 29 MMOL/L (21-32) Anion Gap 12 mmol/L (5-15) Blood Urea Nitrogen 32 mg/dL (7-18) H Creatinine 1.6 MG/DL (0.55-1.30) H Estimat Glomerular Filtration Rate mL/min (>60) Glucose Level 149 MG/DL (74-106) H Uric Acid 5.7 MG/DL (2.6-7.2) Calcium Level 8.8 MG/DL (8.5-10.1) Phosphorus Level 2.8 MG/DL (2.5-4.9) Magnesium Level 1.7 MG/DL (1.8-2.4) L Total Bilirubin 0.2 MG/DL (0.2-1.0) Aspartate Amino Transf (AST/SGOT) 47 U/L (15-37) H Alanine Aminotransferase (ALT/SGPT) 43 U/L (12-78) Alkaline Phosphatase 64 U/L (46-116) Total Protein 7.9 G/DL (6.4-8.2) Albumin 2.3 G/DL (3.4-5.0) L Globulin 5.6 g/dL Albumin/Globulin Ratio 0.4 (1.0-2.7) L Plan Problems: (1) Sacral decubitus ulcer Assessment & Plan: Pt presented on admission with Full Thickness Sacral Pressure Injury. Base of wound has 75% pink granulation with scattered dry brown eschar (25%).Small amt of sanguineous exudate noted. Edges flat and adherent to base of wound. Darker Skin tone without erythema induration or fluctuance periwound.(L)7.5cm x (W)8.5cm. Erythema noted to perineum and medial aspects of both upper thighs. R heel dry and boggy with Hyperpigmentation from previous wound. Darker skin tone without fluctuance or induration noted to R hallux. 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 No other areas of Skin Breakdown noted. Treatment plan: Cleanse Sacrum with Saline. Apply Therahoney to areas of Eschar in wound. Apply Triad paste to Viable areas of wound. Cover with Optifoam drsg. Change every 3 days and prn. Apply Cavilon Skin Barrier to R heel. Cover with Optifoam drsg. Change every 7 days and prn. APM/KALE Mattress overlay. Reposition at least every 2 hours or as tolerated. Off-load R heel with Pillow. 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 thank you (15) Diabetes (16) Dementia (17) CKD (chronic kidney disease) (18) Seizure disorder (19) Functional quadriplegia (20) G tube feedings Assessment & Plan: DAILY ESTIMATED NEEDS: Needs based on DM, Wounds (Adj wt 58.5kg) 25-30 kcals/kg 1118-1735 total kcals 1.25-1.5 g protein/kg 73-88 g total protein 25-30 mL/kg 1226-9205 total fluid mLs NUTRITION DIAGNOSIS: 1) Swallowing difficulty r/t dysphagia as evidenced by pt is PEG dep, NPO at this time. 2) Increased protein, micronutrient needs r/t wound healing as evidenced by sacral open wound per photo, pending eval CURRENT TF:NPO ENTERAL NUTRITION RECOMMENDATIONS: Glucerna 1.2 @ 60ml/hr x 24 hrs to provide 1440ml, 1728kcal, 86g prot , 1159ml free water - As medically appropriate, initiate TF on Glucerna 1.2 @ 20ml/hr x 6 hrs - Advance 10ml q 4-6 hrs as tolerated to goal rate of 60mlx 24 hrs - HOB over 30 degrees/ water flush per MD. 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
--- NOTE | 2018-09-07 15:39 | Infectious Diseases Prog Note ---
Assessment/Plan Problems: (1) Bacteremia Assessment & Plan: with coag negative staphylococcus , grew out of two blood culture from three bottles , final culture report from [facility] showed contaminants . will continue zyvox for two weeks to treat her bacteremia dn her pneumonia . (2) Aspiration pneumonia Assessment & Plan: continue zosyn empirically for 10 days , aspiration precaution, Keep HOB > 30 degree (3) Sacral decubitus ulcer Assessment & Plan: not infected, continue local wound care and dressings change as per hospital protocol (4) UTI (urinary tract infection) Assessment & Plan: pending urine culture to confirm, she is on zosyn already (5) Diabetes Assessment & Plan: recommend tight glycemic control to keep blood glucose between 100-130 (6) CKD (chronic kidney disease) Assessment & Plan: suspect dehydration, continue ivf for hydration, and renally dosed meds, nephrology is following Subjective ROS Limited/Unobtainable: Yes Allergies: Coded Allergies: METOCLOPRAMIDE (Verified Allergy, Unknown, 03/10/18) extrapyramidal Sx Subjective she was lying in bed, unresponsive, afebrile, not in distress Objective Vital Signs Last 24 Hour Vital Signs Date Time Temp Pulse Resp B/P (MAP) Pulse Ox O2 Delivery O2 Flow Rate FiO2 09/07/18 12:49 96 Nasal Cannula 2.0 28 09/07/18 12:49 Nasal Cannula 2.0 28 09/07/18 12:00 102 09/07/18 12:00 97.6 98 22 136/70 (92) 94 09/07/18 09:11 93 153/72 09/07/18 09:00 Nasal Cannula 2.0 09/07/18 08:00 97.6 93 19 153/72 (99) 96 09/07/18 08:00 93 09/07/18 04:00 87 09/07/18 03:56 97.8 09/07/18 03:54 97.8 81 20 147/79 (101) 98 09/07/18 00:00 83 09/07/18 00:00 96.3 84 20 150/75 (100) 97 09/06/18 21:00 Nasal Cannula 2.0 09/06/18 20:00 98 Nasal Cannula 2.0 28 09/06/18 20:00 82 09/06/18 20:00 97.9 86 21 152/79 (103) 95 09/06/18 20:00 Nasal Cannula 2.0 28 09/06/18 17:22 156/74 09/06/18 16:00 98.8 85 22 156/74 (101) 95 09/06/18 16:00 84 Height (Feet): 5 Height (Inches): 6.00 Weight (Pounds): 154 General Appearance: WD/WN, no acute distress HEENT: normocephalic, atraumatic, anicteric, mucous membranes moist, PERRL, no JVD Respiratory/Chest: chest wall non-tender, no respiratory distress, no accessory muscle use, decreased breath sounds, crackles/rales Cardiovascular: normal peripheral pulses, normal rate, regular rhythm, no gallop/murmur, no JVD Abdomen: normal bowel sounds, soft, non tender, no organomegaly, non distended , no mass, no scars Genitourinary: normal external genitalia Extremities: no cyanosis, no clubbing Skin: no rash, no lesions, ulcers Neurologic/Psychiatric: unresponsiveness Lymphatic: no neck adenopathy, no groin adenopathy Musculoskeletal: normal muscle bulk, no effusion Laboratory Tests Test 09/07/18 06:45 White Blood Count 4.6 K/UL (4.8-10.8) L Red Blood Count 3.37 M/UL (4.20-5.40) L Hemoglobin 10.6 G/DL (12.0-16.0) L Hematocrit 32.5 % (37.0-47.0) L Mean Corpuscular Volume 97 FL (80-99) Mean Corpuscular Hemoglobin 31.3 PG (27.0-31.0) H Mean Corpuscular Hemoglobin Concent 32.5 G/DL (32.0-36.0) Red Cell Distribution Width 16.6 % (11.6-14.8) H Platelet Count 130 K/UL (150-450) L Mean Platelet Volume 7.9 FL (6.5-10.1) Neutrophils (%) (Auto) 56.0 % (45.0-75.0) Lymphocytes (%) (Auto) 36.4 % (20.0-45.0) Monocytes (%) (Auto) 4.5 % (1.0-10.0) Eosinophils (%) (Auto) 2.6 % (0.0-3.0) Basophils (%) (Auto) 0.5 % (0.0-2.0) Sodium Level 150 MMOL/L (136-145) H Potassium Level 3.6 MMOL/L (3.5-5.1) Chloride Level 110 MMOL/L (98-107) H Carbon Dioxide Level 29 MMOL/L (21-32) Anion Gap 12 mmol/L (5-15) Blood Urea Nitrogen 32 mg/dL (7-18) H Creatinine 1.6 MG/DL (0.55-1.30) H Estimat Glomerular Filtration Rate mL/min (>60) Glucose Level 149 MG/DL (74-106) H Uric Acid 5.7 MG/DL (2.6-7.2) Calcium Level 8.8 MG/DL (8.5-10.1) Phosphorus Level 2.8 MG/DL (2.5-4.9) Magnesium Level 1.7 MG/DL (1.8-2.4) L Total Bilirubin 0.2 MG/DL (0.2-1.0) Aspartate Amino Transf (AST/SGOT) 47 U/L (15-37) H Alanine Aminotransferase (ALT/SGPT) 43 U/L (12-78) Alkaline Phosphatase 64 U/L (46-116) Total Protein 7.9 G/DL (6.4-8.2) Albumin 2.3 G/DL (3.4-5.0) L Globulin 5.6 g/dL Albumin/Globulin Ratio 0.4 (1.0-2.7) L Current Medications Medications (Trade) Dose Ordered Sig/Nancy Route PRN Reason Start Time Stop Time Status Last Admin Dose Admin Amlodipine Besylate (Norvasc) 5 mg DAILY GT 09/03/18 09:00 10/02/18 08:59 09/07/18 09:11 Apixaban (Eliquis) 2.5 mg BID GT 09/02/18 18:00 10/01/18 17:59 09/07/18 09:11 Aspirin (ASA) 81 mg DAILY GT 09/02/18 09:00 10/02/18 08:59 09/07/18 09:10 Dextrose (Dextrose 50%) 25 ml Q30M PRN IV Hypoglycemia 09/01/18 17:15 10/01/18 17:14 Dextrose (Dextrose 50%) 50 ml Q30M PRN IV Hypoglycemia 09/01/18 17:15 10/01/18 17:14 Erythromycin (Erickson-Ped) 50 mg Q6HR GT 09/01/18 18:00 09/08/18 17:59 09/07/18 12:21 Hydralazine HCl (Apresoline) 25 mg Q4H PRN GT BP over 160 syst 09/01/18 15:00 10/01/18 14:59 Insulin Aspart (NovoLOG) Q6HR SUBQ 09/01/18 18:00 10/01/18 17:59 09/07/18 12:26 Lansoprazole (Prevacid) 30 mg BID GT 09/04/18 18:00 10/04/18 17:59 09/07/18 09:11 Levetiracetam (Keppra) 1,000 mg Q12HR NG 09/04/18 21:00 10/04/18 20:59 09/07/18 09:11 Linezolid 300 ml @ 300 mls/hr Q12HR IVPB 09/04/18 00:00 09/11/18 00:00 09/07/18 09:09 Magnesium Sulfate 100 ml @ 100 mls/hr Q1H IVPB 09/07/18 15:00 09/07/18 16:59 09/07/18 14:44 Metolazone (Zaroxolyn) 10 mg ONCE ORAL 09/07/18 15:00 09/07/18 16:00 09/07/18 14:44 Nitroglycerin (Ntg) 1 patch Q24H TDERMAL 09/01/18 18:00 10/01/18 17:59 09/06/18 17:22 Ondansetron HCl (Zofran) 4 mg Q6H PRN IVP Nausea & Vomiting 09/01/18 15:00 10/01/18 14:59 Piperacillin Sod/ Tazobactam Sod 3.375 gm/Sodium Chloride 110 ml @ 27.5 mls/hr Q8H IVPB 09/07/18 17:00 09/14/18 16:59 Potassium Chloride (K-Dur) 40 meq DAILY GT 09/06/18 09:00 10/03/18 08:59 09/07/18 09:10 Sodium Citrate (Bicitra) 30 ml EVERY 6 HOURS GT 09/03/18 12:45 10/03/18 12:44 09/07/18 12:20 Sucralfate (Carafate) 1 gm FOUR TIMES A DAY GT 09/01/18 18:00 10/01/18 17:59 09/07/18 12:21 Tramadol HCl (Ultram) 50 mg Q6H GT 09/04/18 16:00 09/08/18 15:59 09/07/18 10:39 Ayala Forman M.D. September 07, 2018 15:39
--- NOTE | 2018-09-07 15:57 | General Progress Note ---
Assessment/Plan Problem List: (1) Aspiration pneumonia ICD Codes: J69.0 - Pneumonitis due to inhalation of food and vomit SNOMED: 656293641 (2) Acute on chronic renal failure ICD Codes: N17.9 - Acute kidney failure, unspecified; N18.9 - Chronic kidney disease, unspecified SNOMED: 415000273 (3) Seizure disorder ICD Codes: G40.909 - Epilepsy, unspecified, not intractable, without status epilepticus SNOMED: 406137937 (4) Functional quadriplegia ICD Codes: R53.2 - Functional quadriplegia SNOMED: 204473910094208 (5) G tube feedings ICD Codes: Z93.1 - G tube feedings SNOMED: 781925874 (6) Diabetes ICD Codes: E11.9 - Type 2 diabetes mellitus without complications SNOMED: 57278082 (7) Anemia in CKD (chronic kidney disease) ICD Codes: N18.9 - Chronic kidney disease, unspecified; D63.1 - Anemia in chronic kidney disease SNOMED: 963656089 Status: stable, unchanged Assessment/Plan: transfuse- one dose Zaroxylin again today down on IV fluids- start feeding Millicent has Vanco on board HHN Monitor renal parameters per orders BP and BS check Pain management per ID advise Subjective ROS Limited/Unobtainable: No Constitutional: Reports: malaise, weakness Allergies: Coded Allergies: METOCLOPRAMIDE (Verified Allergy, Unknown, 03/10/18) extrapyramidal Sx Objective Last 24 Hour Vital Signs Date Time Temp Pulse Resp B/P (MAP) Pulse Ox O2 Delivery O2 Flow Rate FiO2 09/07/18 12:49 96 Nasal Cannula 2.0 28 09/07/18 12:49 Nasal Cannula 2.0 28 09/07/18 12:00 102 09/07/18 12:00 97.6 98 22 136/70 (92) 94 09/07/18 09:11 93 153/72 09/07/18 09:00 Nasal Cannula 2.0 09/07/18 08:00 97.6 93 19 153/72 (99) 96 09/07/18 08:00 93 09/07/18 04:00 87 09/07/18 03:56 97.8 09/07/18 03:54 97.8 81 20 147/79 (101) 98 5/5/19 00:00 83 09/07/18 00:00 96.3 84 20 150/75 (100) 97 09/06/18 21:00 Nasal Cannula 2.0 09/06/18 20:00 98 Nasal Cannula 2.0 28 09/06/18 20:00 82 09/06/18 20:00 97.9 86 21 152/79 (103) 95 09/06/18 20:00 Nasal Cannula 2.0 28 09/06/18 17:22 156/74 09/06/18 16:00 98.8 85 22 156/74 (101) 95 09/06/18 16:00 84 Intake and Output 09/06/18 09/07/18 19:00 07:00 Intake Total 40 ml 1130.0 ml Output Total 1900 ml Balance -1860 ml 1130.0 ml Intake Free Water 200 ml IV Total 410.0 ml Tube Feeding 40 ml 520 ml Output Urine Total 1900 ml # Bowel Movements 2 Laboratory Tests 09/07/18 06:45: White Blood Count 4.6L, Red Blood Count 3.37L, Hemoglobin 10.6L, Hematocrit 32.5L, Mean Corpuscular Volume 97, Mean Corpuscular Hemoglobin 31.3H, Mean Corpuscular Hemoglobin Concent 32.5, Red Cell Distribution Width 16.6H, Platelet Count 130L, Mean Platelet Volume 7.9, Neutrophils (%) (Auto) 56.0, Lymphocytes (%) (Auto) 36.4, Monocytes (%) (Auto) 4.5, Eosinophils (%) (Auto) 2.6, Basophils (%) (Auto) 0.5, Sodium Level 150H, Potassium Level 3.6, Chloride Level 110H, Carbon Dioxide Level 29, Anion Gap 12, Blood Urea Nitrogen 32H, Creatinine 1.6H, Estimat Glomerular Filtration Rate , Glucose Level 149H, Uric Acid 5.7, Calcium Level 8.8, Phosphorus Level 2.8, Magnesium Level 1.7L, Total Bilirubin 0.2, Aspartate Amino Transf (AST/SGOT) 47H, Alanine Aminotransferase ( ALT/SGPT) 43, Alkaline Phosphatase 64, Total Protein 7.9, Albumin 2.3L, Globulin 5.6, Albumin/Globulin Ratio 0.4L Height (Feet): 5 Height (Inches): 6.00 Weight (Pounds): 154 General Appearance: no apparent distress Neck: limited range of motion Cardiovascular: normal rate Respiratory/Chest: decreased breath sounds Abdomen: distended Estevan Orozco MD September 07, 2018 15:57
[2018-09-07 16:00] VITALS: BP 139/73
[2018-09-07] MEDS: Nitroglycerin Patch 0.4mg TDERMAL SCH (17:41)
--- NOTE | 2018-09-07 19:13 | NUR ---
HAND-OFF: Report given to LUIS Figueroa. Patient is in stable condition. Endorsed plan of care.
--- NOTE | 2018-09-07 19:30 | NUR ---
NURSE NOTES: Received Pt is resting on the bed and obtunded and non-verbal. On tele monitor with SR. IV site intact and no sign of infiltration noted. On G-tube feeding with Glucerna 1.5 @ 40cc/hr. No residual noted. No sign of pain by FLACC scale. Dressing is clean and dry on wound area. On P-200 mattress for wound management. Changed position. Rt. heel elevated with pillow. On Umaña cath and patent and yellowish urine urinated. Placed fall and seizure precaution. Will continue to care plan.
[2018-09-07 20:00] VITALS: BP 145/74
[2018-09-07] MEDS ORDERED: NS 275ml ONE (21:14)
[2018-09-07] MEDS ORDERED: Tubing IV Secondary IV ONE (21:14)
[2018-09-08] VITALS: BP_SYST 146; BP_SYST 152; BP_DIAS 74; BP_DIAS 77
[2018-09-08] MEDS: Piperacillin/Tazobactam 3.375 GM in NS 110 ML IVPB SCH ×3 (01:04→17:26)
[2018-09-08 04:00] VITALS: BP 136/70
[2018-09-08] MEDS: traMADol 50mg tab GT SCH ×2 (04:03→09:48)
[2018-09-08] MEDS: Sodium Citrate 30ml GT SCH ×3 (05:59→17:20)
[2018-09-08] MEDS: Erythromycin Ethylsuccinate 200mg/5ml Susp GT SCH ×3 (05:59→17:20)
[2018-09-08] MEDS: NovoLOG Insulin Flexpen SUBQ SCH ×3 (06:01→17:24)
--- NOTE | 2018-09-08 07:13 | NUR ---
HAND-OFF: Report given to LUIS Simmons. Pt is resting on the bed and no sign of acute distress noted.
--- NOTE | 2018-09-08 07:15 | NUR ---
NURSE NOTES: Pt received from LUIS Figueroa alert and oriented x0, nonverbal and obtunded. IV site asymptomatic and patent, no s/s of infiltration. Gtube feed tolerating - no gastric residual, HOB elevated. Umaña catheter draining to yellow urine. Right heel off loaded with pillow. Bed in lowest position, bed alarm on. Call light within reach.
[2018-09-08 08:00] VITALS: BP 113/64
[2018-09-08] MEDS: Eliquis 2.5mg tablet GT SCH ×2 (09:47→17:21)
[2018-09-08] MEDS: Aspirin Baby 81mg GT SCH (09:47)
[2018-09-08] MEDS: Sucralfate 1gm tab GT SCH ×4 (09:47→20:52)
[2018-09-08] MEDS: levETIRAcetam 500mg/5ml Liquid NG SCH ×2 (09:48→20:52)
[2018-09-08 12:00] VITALS: BP 140/69
--- NOTE | 2018-09-08 12:29 | Surgery Progress Note ---
Surgery Progress Note Subjective Additional Comments h/h okay. labs noted. renal improving. blood cultures positive. exam unchanged. wounds stable. Objective Last 24 Hour Vital Signs Date Time Temp Pulse Resp B/P (MAP) Pulse Ox O2 Delivery O2 Flow Rate FiO2 09/08/18 09:00 Room Air 09/08/18 09:00 94 103/64 09/08/18 08:00 87 09/08/18 08:00 97.9 94 18 113/64 (80) 96 09/08/18 04:52 Nasal Cannula 2.0 28 09/08/18 04:52 94 Nasal Cannula 2.0 28 09/08/18 04:00 84 09/08/18 04:00 97.5 84 20 136/70 (92) 96 09/08/18 00:00 97.6 89 20 152/74 (100) 96 09/08/18 00:00 84 09/07/18 21:00 Room Air 09/07/18 20:00 97.6 90 20 145/74 (97) 95 09/07/18 20:00 85 09/07/18 17:41 139/73 09/07/18 16:00 98.6 89 20 139/73 (95) 95 09/07/18 16:00 97 09/07/18 12:49 96 Nasal Cannula 2.0 28 09/07/18 12:49 Nasal Cannula 2.0 28 I&O Intake and Output 09/07/18 09/08/18 19:00 07:00 Intake Total 595.0 ml 945.0 ml Output Total 800 ml 750 ml Balance -205.0 ml 195.0 ml IV Total 555.0 ml 465.0 ml Tube Feeding 40 ml 480 ml Output Urine Total 800 ml 750 ml # Bowel Movements 1 1 Dressing: saturated Wound: clean Drains: other Cardiovascular: RSR Respiratory: clear Abdomen: soft, present bowel sounds, non-distended Extremities: no cyanosis, other Plan Problems: (1) Sacral decubitus ulcer Assessment & Plan: Pt presented on admission with Full Thickness Sacral Pressure Injury. Base of wound has 75% pink granulation with scattered dry brown eschar (25%).Small amt of sanguineous exudate noted. Edges flat and adherent to base of wound. Darker Skin tone without erythema induration or fluctuance periwound.(L)7.5cm x (W)8.5cm. Erythema noted to perineum and medial aspects of both upper thighs. R heel dry and boggy with Hyperpigmentation from previous wound. Darker skin tone without fluctuance or induration noted to R hallux. 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 No other areas of Skin Breakdown noted. Treatment plan: Cleanse Sacrum with Saline. Apply Therahoney to areas of Eschar in wound. Apply Triad paste to Viable areas of wound. Cover with Optifoam drsg. Change every 3 days and prn. Apply Cavilon Skin Barrier to R heel. Cover with Optifoam drsg. Change every 7 days and prn. APM/KALE Mattress overlay. Reposition at least every 2 hours or as tolerated. Off-load R heel with Pillow. 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 thank you (15) Diabetes (16) Dementia (17) CKD (chronic kidney disease) (18) Seizure disorder (19) Functional quadriplegia (20) G tube feedings Assessment & Plan: DAILY ESTIMATED NEEDS: Needs based on DM, Wounds (Adj wt 58.5kg) 25-30 kcals/kg 5754-8476 total kcals 1.25-1.5 g protein/kg 73-88 g total protein 25-30 mL/kg 9080-8957 total fluid mLs NUTRITION DIAGNOSIS: 1) Swallowing difficulty r/t dysphagia as evidenced by pt is PEG dep, NPO at this time. 2) Increased protein, micronutrient needs r/t wound healing as evidenced by sacral open wound per photo, pending eval CURRENT TF:NPO ENTERAL NUTRITION RECOMMENDATIONS: Glucerna 1.2 @ 60ml/hr x 24 hrs to provide 1440ml, 1728kcal, 86g prot , 1159ml free water - As medically appropriate, initiate TF on Glucerna 1.2 @ 20ml/hr x 6 hrs - Advance 10ml q 4-6 hrs as tolerated to goal rate of 60mlx 24 hrs - HOB over 30 degrees/ water flush per MD. 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
--- NOTE | 2018-09-08 12:38 | NUR ---
DISCHARGE PLANNING CALLED [facility] @ [phone] ...VOICE MAIL BOX FULL, UNABLE TO LEAVE MESSAGE CALLED PATIENT'S HOME PHONE [phone] NO ANSWER AND NO VOICEMAIL CALLED [facility] T: [phone] LEFT [facility]
--- NOTE | 2018-09-08 12:59 | NUR ---
DISCHARGE PLANNING FAXED CLINICALS TO [facility] T: [phone] Addendum: 09/10/18 at 1354 by KIESHA SNOW [facility]
--- NOTE | 2018-09-08 14:55 | General Progress Note ---
Assessment/Plan Problem List: (1) Aspiration pneumonia ICD Codes: J69.0 - Pneumonitis due to inhalation of food and vomit SNOMED: 441403397 (2) Acute on chronic renal failure ICD Codes: N17.9 - Acute kidney failure, unspecified; N18.9 - Chronic kidney disease, unspecified SNOMED: 400126274 (3) Seizure disorder ICD Codes: G40.909 - Epilepsy, unspecified, not intractable, without status epilepticus SNOMED: 134408663 (4) Functional quadriplegia ICD Codes: R53.2 - Functional quadriplegia SNOMED: 849937308754674 (5) G tube feedings ICD Codes: Z93.1 - G tube feedings SNOMED: 610364334 (6) Diabetes ICD Codes: E11.9 - Type 2 diabetes mellitus without complications SNOMED: 49389803 (7) Anemia in CKD (chronic kidney disease) ICD Codes: N18.9 - Chronic kidney disease, unspecified; D63.1 - Anemia in chronic kidney disease SNOMED: 564023491 Status: stable, unchanged Assessment/Plan: transfuse- one dose Zaroxylin again today down on IV fluids- start feeding Shruthisyn has Vanco on board HHN Monitor renal parameters per orders BP and BS check Pain management per ID advise : ?DC in am on PO Subjective ROS Limited/Unobtainable: No Allergies: Coded Allergies: METOCLOPRAMIDE (Verified Allergy, Unknown, 03/10/18) extrapyramidal Sx Objective Last 24 Hour Vital Signs Date Time Temp Pulse Resp B/P (MAP) Pulse Ox O2 Delivery O2 Flow Rate FiO2 09/08/18 12:00 89 09/08/18 12:00 97.6 93 18 140/69 (92) 95 09/08/18 09:00 Room Air 09/08/18 09:00 94 103/64 09/08/18 08:00 87 09/08/18 08:00 97.9 94 18 113/64 (80) 96 09/08/18 04:52 Nasal Cannula 2.0 28 09/08/18 04:52 94 Nasal Cannula 2.0 28 09/08/18 04:00 84 09/08/18 04:00 97.5 84 20 136/70 (92) 96 09/08/18 00:00 97.6 89 20 152/74 (100) 96 09/08/18 00:00 84 09/07/18 21:00 Room Air 09/07/18 20:00 97.6 90 20 145/74 (97) 95 09/07/18 20:00 85 09/07/18 17:41 139/73 09/07/18 16:00 98.6 89 20 139/73 (95) 95 09/07/18 16:00 97 Intake and Output 09/07/18 09/08/18 19:00 07:00 Intake Total 595.0 ml 945.0 ml Output Total 800 ml 750 ml Balance -205.0 ml 195.0 ml IV Total 555.0 ml 465.0 ml Tube Feeding 40 ml 480 ml Output Urine Total 800 ml 750 ml # Bowel Movements 1 1 Current Medications Medications (Trade) Dose Ordered Sig/Nancy Route PRN Reason Start Time Stop Time Status Last Admin Dose Admin Amlodipine Besylate (Norvasc) 5 mg DAILY GT 09/03/18 09:00 10/02/18 08:59 09/07/18 09:11 Apixaban (Eliquis) 2.5 mg BID GT 09/02/18 18:00 10/01/18 17:59 09/08/18 09:47 Aspirin (ASA) 81 mg DAILY GT 09/02/18 09:00 10/02/18 08:59 09/08/18 09:47 Dextrose (Dextrose 50%) 25 ml Q30M PRN IV Hypoglycemia 09/01/18 17:15 10/01/18 17:14 Dextrose (Dextrose 50%) 50 ml Q30M PRN IV Hypoglycemia 09/01/18 17:15 10/01/18 17:14 Erythromycin (Erickson-Ped) 50 mg Q6HR GT 09/01/18 18:00 09/15/18 17:59 09/08/18 12:31 Hydralazine HCl (Apresoline) 25 mg Q4H PRN GT BP over 160 syst 09/01/18 15:00 10/01/18 14:59 Insulin Aspart (NovoLOG) Q6HR SUBQ 09/01/18 18:00 10/01/18 17:59 09/08/18 12:38 Lansoprazole (Prevacid) 30 mg BID GT 09/04/18 18:00 10/04/18 17:59 09/08/18 09:47 Levetiracetam (Keppra) 1,000 mg Q12HR NG 09/04/18 21:00 10/04/18 20:59 09/08/18 09:48 Linezolid 300 ml @ 300 mls/hr Q12HR IVPB 09/04/18 00:00 09/11/18 00:00 09/08/18 09:51 Metolazone (Zaroxolyn) 10 mg DAILY GT 09/08/18 09:00 10/08/18 08:59 09/08/18 09:47 Nitroglycerin (Ntg) 1 patch Q24H TDERMAL 09/01/18 18:00 10/01/18 17:59 09/07/18 17:41 Ondansetron HCl (Zofran) 4 mg Q6H PRN IVP Nausea & Vomiting 09/01/18 15:00 10/01/18 14:59 Piperacillin Sod/ Tazobactam Sod 3.375 gm/Sodium Chloride 110 ml @ 27.5 mls/hr Q8H IVPB 09/07/18 17:00 09/14/18 16:59 09/08/18 09:51 Potassium Chloride (K-Dur) 40 meq DAILY GT 09/06/18 09:00 10/03/18 08:59 09/08/18 09:48 Sodium Citrate (Bicitra) 30 ml EVERY 6 HOURS GT 09/03/18 12:45 10/03/18 12:44 09/08/18 12:30 Sucralfate (Carafate) 1 gm FOUR TIMES A DAY GT 09/01/18 18:00 10/01/18 17:59 09/08/18 12:31 Tramadol HCl (Ultram) 50 mg Q6H GT 09/04/18 16:00 09/08/18 15:59 09/08/18 09:48 Height (Feet): 5 Height (Inches): 6.00 Weight (Pounds): 154 General Appearance: no apparent distress Neck: limited range of motion Respiratory/Chest: decreased breath sounds Abdomen: distended Estevan Orozco MD September 08, 2018 14:55
--- NOTE | 2018-09-08 15:45 | NUR ---
NURSE NOTES: Pt tolerating Gtube feed - no gastric residual noted, no acute s/s of distress. HOB elevated, suction at bedside. Pt had x1 diarrhea BM, cleaned and changed accordingly. Umaña catheter patent and draining to clear and yellow urine. Bed alarm on at all times. Call light within reach.
[2018-09-08 16:00] VITALS: BP 125/66
--- NOTE | 2018-09-08 16:32 | Infectious Diseases Prog Note ---
Assessment/Plan Problems: (1) Bacteremia Assessment & Plan: with coag negative staphylococcus , grew out of two blood culture from three bottles , final culture report from [facility] showed contaminants . will continue zyvox for two weeks to treat her bacteremia and pneumonia .may switch to oral form (2) Aspiration pneumonia Assessment & Plan: continue zosyn empirically for 10 days total , aspiration precaution, Keep HOB > 30 degree (3) Sacral decubitus ulcer Assessment & Plan: not infected, continue local wound care and dressings change as per hospital protocol (4) UTI (urinary tract infection) Assessment & Plan: pending urine culture to confirm, she is on zosyn already (5) Diabetes Assessment & Plan: recommend tight glycemic control to keep blood glucose between 100-130 (6) CKD (chronic kidney disease) Assessment & Plan: suspect dehydration, continue ivf for hydration, and renally dosed meds, nephrology is following Subjective ROS Limited/Unobtainable: Yes Allergies: Coded Allergies: METOCLOPRAMIDE (Verified Allergy, Unknown, 03/10/18) extrapyramidal Sx Subjective she was lying in bed, unresponsive, afebrile, not in distress Objective Vital Signs Last 24 Hour Vital Signs Date Time Temp Pulse Resp B/P (MAP) Pulse Ox O2 Delivery O2 Flow Rate FiO2 09/08/18 12:00 89 09/08/18 12:00 97.6 93 18 140/69 (92) 95 09/08/18 09:00 Room Air 09/08/18 09:00 94 103/64 09/08/18 08:00 87 09/08/18 08:00 97.9 94 18 113/64 (80) 96 09/08/18 04:52 Nasal Cannula 2.0 28 09/08/18 04:52 94 Nasal Cannula 2.0 28 09/08/18 04:00 84 09/08/18 04:00 97.5 84 20 136/70 (92) 96 09/08/18 00:00 97.6 89 20 152/74 (100) 96 09/08/18 00:00 84 09/07/18 21:00 Room Air 09/07/18 20:00 97.6 90 20 145/74 (97) 95 09/07/18 20:00 85 09/07/18 17:41 139/73 Height (Feet): 5 Height (Inches): 6.00 Weight (Pounds): 154 General Appearance: WD/WN, no acute distress HEENT: normocephalic, atraumatic, anicteric, mucous membranes moist, PERRL Respiratory/Chest: chest wall non-tender, no respiratory distress, no accessory muscle use, decreased breath sounds, crackles/rales Cardiovascular: normal peripheral pulses, normal rate, regular rhythm, no gallop/murmur, no JVD Abdomen: normal bowel sounds, soft, non tender, no organomegaly, non distended , no mass, no scars Genitourinary: normal external genitalia Extremities: no cyanosis, no clubbing Skin: no rash, no lesions, no ulcers Neurologic/Psychiatric: unresponsiveness Lymphatic: no neck adenopathy, no groin adenopathy Musculoskeletal: normal muscle bulk, no effusion Current Medications Medications (Trade) Dose Ordered Sig/Nancy Route PRN Reason Start Time Stop Time Status Last Admin Dose Admin Amlodipine Besylate (Norvasc) 5 mg DAILY GT 09/03/18 09:00 10/02/18 08:59 09/07/18 09:11 Apixaban (Eliquis) 2.5 mg BID GT 09/02/18 18:00 10/01/18 17:59 09/08/18 09:47 Aspirin (ASA) 81 mg DAILY GT 09/02/18 09:00 10/02/18 08:59 09/08/18 09:47 Dextrose (Dextrose 50%) 25 ml Q30M PRN IV Hypoglycemia 09/01/18 17:15 10/01/18 17:14 Dextrose (Dextrose 50%) 50 ml Q30M PRN IV Hypoglycemia 09/01/18 17:15 10/01/18 17:14 Erythromycin (Erickson-Ped) 50 mg Q6HR GT 09/01/18 18:00 09/15/18 17:59 09/08/18 12:31 Hydralazine HCl (Apresoline) 25 mg Q4H PRN GT BP over 160 syst 09/01/18 15:00 10/01/18 14:59 Insulin Aspart (NovoLOG) Q6HR SUBQ 09/01/18 18:00 10/01/18 17:59 09/08/18 12:38 Lansoprazole (Prevacid) 30 mg BID GT 09/04/18 18:00 10/04/18 17:59 09/08/18 09:47 Levetiracetam (Keppra) 1,000 mg Q12HR NG 09/04/18 21:00 10/04/18 20:59 09/08/18 09:48 Linezolid 300 ml @ 300 mls/hr Q12HR IVPB 09/04/18 00:00 09/11/18 00:00 09/08/18 09:51 Metolazone (Zaroxolyn) 10 mg DAILY GT 09/08/18 09:00 10/08/18 08:59 09/08/18 09:47 Nitroglycerin (Ntg) 1 patch Q24H TDERMAL 09/01/18 18:00 10/01/18 17:59 09/07/18 17:41 Ondansetron HCl (Zofran) 4 mg Q6H PRN IVP Nausea & Vomiting 09/01/18 15:00 10/01/18 14:59 Piperacillin Sod/ Tazobactam Sod 3.375 gm/Sodium Chloride 110 ml @ 27.5 mls/hr Q8H IVPB 09/07/18 17:00 09/14/18 16:59 09/08/18 09:51 Potassium Chloride (K-Dur) 40 meq DAILY GT 09/06/18 09:00 10/03/18 08:59 09/08/18 09:48 Sodium Citrate (Bicitra) 30 ml EVERY 6 HOURS GT 09/03/18 12:45 10/03/18 12:44 09/08/18 12:30 Sucralfate (Carafate) 1 gm FOUR TIMES A DAY GT 09/01/18 18:00 10/01/18 17:59 09/08/18 12:31 Ayala Forman M.D. September 08, 2018 16:32
[2018-09-08] MEDS: Nitroglycerin Patch 0.4mg TDERMAL SCH (17:21)
--- NOTE | 2018-09-08 19:18 | NUR ---
HAND-OFF: Report given to LUIS Morales. No acute s/s of distress.
--- NOTE | 2018-09-08 19:18 | NUR ---
NURSE NOTES: Report received from Imelda Simmons RN. Pt is resting in bed in stable condition. Pt is non-verbal and obtunded at baseline. Pt opens eyes to shaking and light pain but is unable to follow commands or make needs known. FLACC score is 0. Pt is on room air and breathing is even and unlabored. No acute distress noted. IV sites are asymptomatic, patent, and intact. G-tube site and dressing are dry and intact and tube feeding, Glucerna 1.5, is running at goal rate of 40 cc/hr. No gastric residual noted. HOB kept > 30 degrees. Will continue at current rate as long as pt continues to tolerate feeding. Umaña is patent and draining to gravity. P200 mattress noted to be in place and working. Bed is in lowest position with brake engaged, side rails up x3, and bed alarm on. Call light and side table placed within reach. Will continue to monitor.
[2018-09-08 20:00] VITALS: BP 123/83
[2018-09-09] VITALS: BP 142/84
--- NOTE | 2018-09-09 | NUR ---
NURSE NOTES: G-tube flushed with 100cc per MD orders. No gastric residual noted, will continue at goal rate of 40 cc/hr.
[2018-09-09] MEDS: Sodium Citrate 30ml GT SCH ×3 (01:46→12:29)
[2018-09-09] MEDS: Piperacillin/Tazobactam 3.375 GM in NS 110 ML IVPB SCH ×2 (01:46→09:36)
[2018-09-09] MEDS: Erythromycin Ethylsuccinate 200mg/5ml Susp GT SCH ×3 (01:46→12:30)
[2018-09-09 04:00] VITALS: BP 105/56
[2018-09-09] MEDS: NovoLOG Insulin Flexpen SUBQ SCH ×3 (06:10→12:30)
[2018-09-09 06:32] LABS: BASOPHILS % (AUTO) 0.4 % (0.0-2.0); EOSINOPHILS % (AUTO) 1.9 % (0.0-3.0); HEMATOCRIT 34.6 % (37.0-47.0); HEMOGLOBIN 11.4 G/DL (12.0-16.0); LYMPHOCYTES % (AUTO) 41.1 % (20.0-45.0); MEAN CORPUSCULAR VOLUME 96 FL (80-99); MONOCYTES % (AUTO) 4.2 % (1.0-10.0); NEUTROPHILS % (AUTO) 52.3 % (45.0-75.0); PLATELET COUNT 161 K/UL (150-450); RED BLOOD COUNT 3.59 M/UL (4.20-5.40); RED CELL DISTRIBUTION WIDTH 15.5 % (11.6-14.8); WHITE BLOOD COUNT 5.4 K/UL (4.8-10.8)
[2018-09-09 06:58] LABS: ALANINE AMINOTRANSFERASE 56 U/L (12-78); ALBUMIN 2.7 G/DL (3.4-5.0); ALBUMIN/GLOBULIN RATIO 0.5 (1.0-2.7); ALKALINE PHOSPHATASE 74 U/L (46-116); ANION GAP 10 mmol/L (5-15); ASPARTATE AMINO TRANSFERASE 40 U/L (15-37); BILIRUBIN,TOTAL 0.4 MG/DL (0.2-1.0); BLOOD UREA NITROGEN 37 mg/dL (7-18); CALCIUM 9.6 MG/DL (8.5-10.1); CARBON DIOXIDE 31 MMOL/L (21-32); CHLORIDE 106 MMOL/L (98-107); CREATININE 1.7 MG/DL (0.55-1.30); PHOSPHORUS 3.7 MG/DL (2.5-4.9); POTASSIUM 3.9 MMOL/L (3.5-5.1); SODIUM 147 MMOL/L (136-145)
--- NOTE | 2018-09-09 07:41 | NUR ---
HAND-OFF: Report given to Imelda Simmons RN. Pt is resting in bed in stable condition. No acute distress noted. Endorsed plan of care.
--- NOTE | 2018-09-09 07:45 | NUR ---
NURSE NOTES: Pt received from LUIS Morales alert and oriented x0, nonverbal and obtunded. IV site on R hand and L hand 24 g asymptomatic and patent, on saline lock. Gtube feed tolerated - no gastric residual upon assessment. Feed at goal rate. Aspiration precautions implemented - HOB elevated, suction at bedside. Bed alarm on, bed in lowest position. Call light within reach. Umaña catheter patent and draining to clear and yellow urine.
[2018-09-09 08:00] VITALS: BP 156/86
[2018-09-09] MEDS: Sucralfate 1gm tab GT SCH ×2 (09:26→12:29)
[2018-09-09] MEDS: Aspirin Baby 81mg GT SCH (09:27)
[2018-09-09] MEDS: Eliquis 2.5mg tablet GT SCH (09:27)
[2018-09-09] MEDS: levETIRAcetam 500mg/5ml Liquid NG SCH (09:27)
--- NOTE | 2018-09-09 10:22 | NUR ---
CASE MANAGEMENT:REVIEW 09/09/18 SI: ASPIRATION PNA. AC/CHR RENAL FAILURE 98.1 97 20 156/86 97% ON RA H/H-11.4/34.6 NA+147 BUN+37 CR+1.7 IS: ZYVOX GT Q12 CEFDINIR GT Q12 ZAROXOLYN GT QD KEPPRA GT Q12 ULTRAM GT Q6 K-DUR GT BID NORVASC GT QD ELIQUIS GT BID ASA GT QD CARAFATE GT QID : TELEMETRY STATUS DCP: VIEW APOLINAR CONV
--- NOTE | 2018-09-09 10:35 | NUR ---
NURSE NOTES: Received discharge order from Dr. Orozco back to SNF. Endorsed to Candis CHANG
[2018-09-09] MEDS ORDERED: Cefdinir 300mg cap ORAL SCH (11:00)
--- NOTE | 2018-09-09 11:24 | General Progress Note ---
Assessment/Plan Problem List: (1) Aspiration pneumonia ICD Codes: J69.0 - Pneumonitis due to inhalation of food and vomit SNOMED: 346988738 (2) Acute on chronic renal failure ICD Codes: N17.9 - Acute kidney failure, unspecified; N18.9 - Chronic kidney disease, unspecified SNOMED: 298515300 (3) Seizure disorder ICD Codes: G40.909 - Epilepsy, unspecified, not intractable, without status epilepticus SNOMED: 520391884 (4) Functional quadriplegia ICD Codes: R53.2 - Functional quadriplegia SNOMED: 685214020097812 (5) G tube feedings ICD Codes: Z93.1 - G tube feedings SNOMED: 092861015 (6) Diabetes ICD Codes: E11.9 - Type 2 diabetes mellitus without complications SNOMED: 68848156 (7) Anemia in CKD (chronic kidney disease) ICD Codes: N18.9 - Chronic kidney disease, unspecified; D63.1 - Anemia in chronic kidney disease SNOMED: 655210142 (8) Sacral decubitus ulcer, stage III ICD Codes: L89.153 - Pressure ulcer of sacral region, stage 3 SNOMED: 175739804, 818270719 Status: stable, unchanged Assessment/Plan: transfused DC on Zivox and Cefdinir HHN Monitor renal parameters per orders BP and BS check Pain management Subjective ROS Limited/Unobtainable: No Allergies: Coded Allergies: METOCLOPRAMIDE (Verified Allergy, Unknown, 03/10/18) extrapyramidal Sx Objective Last 24 Hour Vital Signs Date Time Temp Pulse Resp B/P (MAP) Pulse Ox O2 Delivery O2 Flow Rate FiO2 09/09/18 09:27 97 156/86 09/09/18 09:00 Room Air 09/09/18 08:00 98.1 97 20 156/86 (109) 97 09/09/18 04:00 97.0 94 20 105/56 (72) 96 09/09/18 04:00 89 09/09/18 00:00 97.0 92 20 142/84 (103) 96 09/09/18 00:00 91 09/08/18 21:00 Room Air 09/08/18 20:00 98.0 102 18 123/83 (96) 95 09/08/18 20:00 93 09/08/18 17:21 125/66 09/08/18 16:00 98.1 93 18 125/66 (85) 94 09/08/18 16:00 96 09/08/18 12:00 89 09/08/18 12:00 97.6 93 18 140/69 (92) 95 Intake and Output 09/08/18 09/09/18 19:00 07:00 Intake Total 837.5 ml Output Total 1100 ml 1500 ml Balance -262.5 ml -1500 ml IV Total 437.5 ml Tube Feeding 400 ml Output Urine Total 1100 ml 1500 ml # Bowel Movements 2 3 Current Medications Medications (Trade) Dose Ordered Sig/Nancy Route PRN Reason Start Time Stop Time Status Last Admin Dose Admin Amlodipine Besylate (Norvasc) 5 mg DAILY GT 09/03/18 09:00 10/02/18 08:59 09/09/18 09:27 Apixaban (Eliquis) 2.5 mg BID GT 09/02/18 18:00 10/01/18 17:59 09/09/18 09:27 Aspirin (ASA) 81 mg DAILY GT 09/02/18 09:00 10/02/18 08:59 09/09/18 09:27 Cefdinir (Cefdinir) 300 mg Q12HR ORAL 09/09/18 11:00 09/16/18 10:59 Dextrose (Dextrose 50%) 25 ml Q30M PRN IV Hypoglycemia 09/01/18 17:15 10/01/18 17:14 Dextrose (Dextrose 50%) 50 ml Q30M PRN IV Hypoglycemia 09/01/18 17:15 10/01/18 17:14 Erythromycin (Erickson-Ped) 50 mg Q6HR GT 09/01/18 18:00 09/15/18 17:59 09/09/18 06:09 Hydralazine HCl (Apresoline) 25 mg Q4H PRN GT BP over 160 syst 09/01/18 15:00 10/01/18 14:59 Insulin Aspart (NovoLOG) Q6HR SUBQ 09/01/18 18:00 10/01/18 17:59 09/09/18 06:10 Lansoprazole (Prevacid) 30 mg BID GT 09/04/18 18:00 10/04/18 17:59 09/09/18 09:27 Levetiracetam (Keppra) 1,000 mg Q12HR NG 09/04/18 21:00 10/04/18 20:59 09/09/18 09:27 Linezolid (Zyvox) 600 mg EVERY 12 HOURS ORAL 09/09/18 21:00 09/14/18 20:59 Metolazone (Zaroxolyn) 10 mg DAILY GT 09/08/18 09:00 10/08/18 08:59 09/09/18 09:26 Nitroglycerin (Ntg) 1 patch Q24H TDERMAL 09/01/18 18:00 10/01/18 17:59 09/08/18 17:21 Ondansetron HCl (Zofran) 4 mg Q6H PRN IVP Nausea & Vomiting 09/01/18 15:00 10/01/18 14:59 Potassium Chloride (K-Dur) 40 meq DAILY GT 09/06/18 09:00 10/03/18 08:59 09/09/18 09:27 Sodium Citrate (Bicitra) 30 ml EVERY 6 HOURS GT 09/03/18 12:45 10/03/18 12:44 09/09/18 06:09 Sucralfate (Carafate) 1 gm FOUR TIMES A DAY GT 09/01/18 18:00 10/01/18 17:59 09/09/18 09:26 Laboratory Tests 09/09/18 04:50: White Blood Count 5.4, Red Blood Count 3.59L, Hemoglobin 11.4L, Hematocrit 34.6L , Mean Corpuscular Volume 96, Mean Corpuscular Hemoglobin 31.7H, Mean Corpuscular Hemoglobin Concent 32.9, Red Cell Distribution Width 15.5H, Platelet Count 161, Mean Platelet Volume 7.5, Neutrophils (%) (Auto) 52.3, Lymphocytes (%) (Auto) 41.1, Monocytes (%) (Auto) 4.2, Eosinophils (%) (Auto) 1.9, Basophils (%) (Auto) 0.4, Sodium Level 147H, Potassium Level 3.9, Chloride Level 106, Carbon Dioxide Level 31, Anion Gap 10, Blood Urea Nitrogen 37H, Creatinine 1.7H, Estimat Glomerular Filtration Rate , Glucose Level 147H, Uric Acid 5.1, Calcium Level 9.6, Phosphorus Level 3.7, Magnesium Level 2.1, Total Bilirubin 0.4, Aspartate Amino Transf (AST/SGOT) 40H, Alanine Aminotransferase ( ALT/SGPT) 56, Alkaline Phosphatase 74, C-Reactive Protein, Quantitative 3.1H, Pro-B-Type Natriuretic Peptide 743H, Total Protein 8.6H, Albumin 2.7L, Globulin 5.9, Albumin/Globulin Ratio 0.5L Height (Feet): 5 Height (Inches): 6.00 Weight (Pounds): 154 General Appearance: no apparent distress Skin: other - per manager disaster recovery and MD- stage 3 sacral Objective no change Estevan Orozco MD September 09, 2018 11:24
--- NOTE | 2018-09-09 11:27 | Surgery Progress Note ---
Surgery Progress Note Subjective Additional Comments labs improving. comfortable. stable. Objective Last 24 Hour Vital Signs Date Time Temp Pulse Resp B/P (MAP) Pulse Ox O2 Delivery O2 Flow Rate FiO2 09/09/18 09:27 97 156/86 09/09/18 09:00 Room Air 09/09/18 08:00 98.1 97 20 156/86 (109) 97 09/09/18 04:00 97.0 94 20 105/56 (72) 96 09/09/18 04:00 89 09/09/18 00:00 97.0 92 20 142/84 (103) 96 09/09/18 00:00 91 09/08/18 21:00 Room Air 09/08/18 20:00 98.0 102 18 123/83 (96) 95 09/08/18 20:00 93 09/08/18 17:21 125/66 09/08/18 16:00 98.1 93 18 125/66 (85) 94 09/08/18 16:00 96 09/08/18 12:00 89 09/08/18 12:00 97.6 93 18 140/69 (92) 95 I&O Intake and Output 09/08/18 09/09/18 19:00 07:00 Intake Total 837.5 ml Output Total 1100 ml 1500 ml Balance -262.5 ml -1500 ml IV Total 437.5 ml Tube Feeding 400 ml Output Urine Total 1100 ml 1500 ml # Bowel Movements 2 3 Dressing: saturated Wound: clean Drains: other Cardiovascular: RSR Respiratory: clear Abdomen: soft, present bowel sounds, non-distended Extremities: no tenderness, no cyanosis Laboratory Tests Test 09/09/18 04:50 White Blood Count 5.4 K/UL (4.8-10.8) Red Blood Count 3.59 M/UL (4.20-5.40) L Hemoglobin 11.4 G/DL (12.0-16.0) L Hematocrit 34.6 % (37.0-47.0) L Mean Corpuscular Volume 96 FL (80-99) Mean Corpuscular Hemoglobin 31.7 PG (27.0-31.0) H Mean Corpuscular Hemoglobin Concent 32.9 G/DL (32.0-36.0) Red Cell Distribution Width 15.5 % (11.6-14.8) H Platelet Count 161 K/UL (150-450) Mean Platelet Volume 7.5 FL (6.5-10.1) Neutrophils (%) (Auto) 52.3 % (45.0-75.0) Lymphocytes (%) (Auto) 41.1 % (20.0-45.0) Monocytes (%) (Auto) 4.2 % (1.0-10.0) Eosinophils (%) (Auto) 1.9 % (0.0-3.0) Basophils (%) (Auto) 0.4 % (0.0-2.0) Sodium Level 147 MMOL/L (136-145) H Potassium Level 3.9 MMOL/L (3.5-5.1) Chloride Level 106 MMOL/L (98-107) Carbon Dioxide Level 31 MMOL/L (21-32) Anion Gap 10 mmol/L (5-15) Blood Urea Nitrogen 37 mg/dL (7-18) H Creatinine 1.7 MG/DL (0.55-1.30) H Estimat Glomerular Filtration Rate mL/min (>60) Glucose Level 147 MG/DL (74-106) H Uric Acid 5.1 MG/DL (2.6-7.2) Calcium Level 9.6 MG/DL (8.5-10.1) Phosphorus Level 3.7 MG/DL (2.5-4.9) Magnesium Level 2.1 MG/DL (1.8-2.4) Total Bilirubin 0.4 MG/DL (0.2-1.0) Aspartate Amino Transf (AST/SGOT) 40 U/L (15-37) H Alanine Aminotransferase (ALT/SGPT) 56 U/L (12-78) Alkaline Phosphatase 74 U/L (46-116) C-Reactive Protein, Quantitative 3.1 mg/dL (0.00-0.90) H Pro-B-Type Natriuretic Peptide 743 pg/mL (0-125) H Total Protein 8.6 G/DL (6.4-8.2) H Albumin 2.7 G/DL (3.4-5.0) L Globulin 5.9 g/dL Albumin/Globulin Ratio 0.5 (1.0-2.7) L Plan Problems: (1) Sacral decubitus ulcer Assessment & Plan: Pt presented on admission with Full Thickness Sacral Pressure Injury. Base of wound has 75% pink granulation with scattered dry brown eschar (25%).Small amt of sanguineous exudate noted. Edges flat and adherent to base of wound. Darker Skin tone without erythema induration or fluctuance periwound.(L)7.5cm x (W)8.5cm. Erythema noted to perineum and medial aspects of both upper thighs. R heel dry and boggy with Hyperpigmentation from previous wound. Darker skin tone without fluctuance or induration noted to R hallux. 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 No other areas of Skin Breakdown noted. Treatment plan: Cleanse Sacrum with Saline. Apply Therahoney to areas of Eschar in wound. Apply Triad paste to Viable areas of wound. Cover with Optifoam drsg. Change every 3 days and prn. Apply Cavilon Skin Barrier to R heel. Cover with Optifoam drsg. Change every 7 days and prn. APM/KALE Mattress overlay. Reposition at least every 2 hours or as tolerated. Off-load R heel with Pillow. 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 thank you (15) Diabetes (16) Dementia (17) CKD (chronic kidney disease) (18) Seizure disorder (19) Functional quadriplegia (20) G tube feedings Assessment & Plan: DAILY ESTIMATED NEEDS: Needs based on DM, Wounds (Adj wt 58.5kg) 25-30 kcals/kg 8465-7737 total kcals 1.25-1.5 g protein/kg 73-88 g total protein 25-30 mL/kg 7594-9341 total fluid mLs NUTRITION DIAGNOSIS: 1) Swallowing difficulty r/t dysphagia as evidenced by pt is PEG dep, NPO at this time. 2) Increased protein, micronutrient needs r/t wound healing as evidenced by sacral open wound per photo, pending eval CURRENT TF:NPO ENTERAL NUTRITION RECOMMENDATIONS: Glucerna 1.2 @ 60ml/hr x 24 hrs to provide 1440ml, 1728kcal, 86g prot , 1159ml free water - As medically appropriate, initiate TF on Glucerna 1.2 @ 20ml/hr x 6 hrs - Advance 10ml q 4-6 hrs as tolerated to goal rate of 60mlx 24 hrs - HOB over 30 degrees/ water flush per MD. 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
[2018-09-09] MEDS ORDERED: NTG1 PATCH TDERMAL (11:29)
[2018-09-09] MEDS ORDERED: HYDRALAZINE HCL25 M1 GT (11:29)
[2018-09-09] MEDS ORDERED: NOVOLOG100 UNITS1 SUBQ (11:29)
[2018-09-09] MEDS ORDERED: LANSOPRAZOLE30 MG GT (11:29)
[2018-09-09] MEDS ORDERED: ZYVOX600 MG ORAL (11:29)
[2018-09-09] MEDS ORDERED: CEFDINIR300 MG ORAL (11:29)
--- NOTE | 2018-09-09 11:31 | Discharge Instructions ---
Discharge Instructions Discharge Instructions Follow up with: fu in ECF by me Diet: other - GT feeding Special Instructions head elevation aspiration and Sz percautions skin care For Congestive Heart Failure Reminder Report to your physician any weight gain of 5 pounds or more in one week. Estevan Orozco MD September 09, 2018 11:31
--- NOTE | 2018-09-09 11:39 | NUR ---
RD ASSESSMENT & RECOMMENDATIONS SEE CARE ACTIVITY FOR COMPLETE ASSESSMENT DAILY ESTIMATED NEEDS: Needs based on DM, Wounds (Adj wt 58.5kg) 25-30 kcals/kg 6200-2232 total kcals 1.25-1.5 g protein/kg 73-88 g total protein 25-30 mL/kg 5549-6462 total fluid mLs NUTRITION DIAGNOSIS: 1) Swallowing difficulty r/t dysphagia as evidenced by pt is PEG dep, on GT feeding. 2) Increased protein, micronutrient needs r/t wound healing as evidenced by full thickness sacral pressure injury. CURRENT TF:Glucerna 1.5 @ 40ml/hr x 24 hrs ENTERAL NUTRITION RECOMMENDATIONS: Glucerna 1.2 @ 60ml/hr x 24 hrs to provide 1440ml, 1728kcal, 86g prot , 1159ml free water - Rec TF change to Glucerna 1.2 for increased free water - Initiate TF on Glucerna 1.2 @ 30ml/hr x 6 hrs, advance 10ml q 4-6 hrs as tolerated to goal - HOB over 30 degrees/ water flush per MD. ADDITIONAL RECOMMENDATIONS: 1) TXR PT TO BED WITH CALIBRATED BEDSCALE 2) Wound healing: add Vit C 500mg QD and Damian 1pkt BID 3) Monitor lytes daily, replete as needed 4) Monitor Renal fxn and lytes, need for Nepro TF formula -> pt on Nepro [employer], phos elev upon adm .
[2018-09-09 12:00] VITALS: BP 160/74
--- NOTE | 2018-09-09 13:20 | NUR ---
NURSE NOTES: Pt discharged in safe condition with ambulance personnel, no acute s/s of distress. Pt left with martinez catheter intact, IV site d/vee and wristband removed. D/vee from Gtube feed. Pt only has neck pillow for belongings - pt unable to sign, signed and verified with another RN. WCP taken, and WC Protocol initiated. RN left message for son Estevan Lebron ([phone]) to inform of discharge. RN gave report to Yamilka from [facility], pt will go to room 101B.
--- NOTE | 2018-09-09 16:19 | Infectious Diseases Prog Note ---
Assessment/Plan Problems: (1) Bacteremia Assessment & Plan: with coag negative staphylococcus , grew out of two blood culture from three bottles , final culture report from [place] showed contaminants . will continue zyvox for two weeks to treat her bacteremia and pneumonia .may switch to oral form to finish her course of therapy (2) Aspiration pneumonia Assessment & Plan: continue zosyn empirically for 10 days total , aspiration precaution, Keep HOB > 30 degree. may switch to oral cefdinir to finish her course of treatment (3) Sacral decubitus ulcer Assessment & Plan: not infected, continue local wound care and dressings change as per hospital protocol (4) UTI (urinary tract infection) Assessment & Plan: pending urine culture to confirm, she is on zosyn already (5) Diabetes Assessment & Plan: recommend tight glycemic control to keep blood glucose between 100-130 (6) CKD (chronic kidney disease) Assessment & Plan: suspect dehydration, continue ivf for hydration, and renally dosed meds, nephrology is following Subjective ROS Limited/Unobtainable: Yes Allergies: Coded Allergies: METOCLOPRAMIDE (Verified Allergy, Unknown, 03/10/18) extrapyramidal Sx Subjective she was lying in bed, unresponsive, afebrile, not in distress Objective Vital Signs Last 24 Hour Vital Signs Date Time Temp Pulse Resp B/P (MAP) Pulse Ox O2 Delivery O2 Flow Rate FiO2 09/09/18 12:00 98.3 108 20 160/74 (102) 95 09/09/18 09:27 97 156/86 09/09/18 09:00 Room Air 09/09/18 08:00 98.1 97 20 156/86 (109) 97 09/09/18 08:00 92 09/09/18 04:00 97.0 94 20 105/56 (72) 96 09/09/18 04:00 89 09/09/18 00:00 97.0 92 20 142/84 (103) 96 09/09/18 00:00 91 09/08/18 21:00 Room Air 09/08/18 20:00 98.0 102 18 123/83 (96) 95 09/08/18 20:00 93 09/08/18 17:21 125/66 Height (Feet): 5 Height (Inches): 6.00 Weight (Pounds): 154 General Appearance: WD/WN, no acute distress HEENT: normocephalic, atraumatic, anicteric, mucous membranes moist, PERRL, supple, no JVD Respiratory/Chest: chest wall non-tender, lungs clear, normal breath sounds, no respiratory distress, no accessory muscle use Cardiovascular: normal peripheral pulses, normal rate, regular rhythm, no gallop/murmur, no JVD Abdomen: normal bowel sounds, soft, non tender, no organomegaly, non distended , no mass, no scars Extremities: no cyanosis, no clubbing Skin: no rash, no lesions, ulcers Lymphatic: no neck adenopathy, no groin adenopathy Musculoskeletal: normal muscle bulk, no effusion Laboratory Tests Test 09/09/18 04:50 White Blood Count 5.4 K/UL (4.8-10.8) Red Blood Count 3.59 M/UL (4.20-5.40) L Hemoglobin 11.4 G/DL (12.0-16.0) L Hematocrit 34.6 % (37.0-47.0) L Mean Corpuscular Volume 96 FL (80-99) Mean Corpuscular Hemoglobin 31.7 PG (27.0-31.0) H Mean Corpuscular Hemoglobin Concent 32.9 G/DL (32.0-36.0) Red Cell Distribution Width 15.5 % (11.6-14.8) H Platelet Count 161 K/UL (150-450) Mean Platelet Volume 7.5 FL (6.5-10.1) Neutrophils (%) (Auto) 52.3 % (45.0-75.0) Lymphocytes (%) (Auto) 41.1 % (20.0-45.0) Monocytes (%) (Auto) 4.2 % (1.0-10.0) Eosinophils (%) (Auto) 1.9 % (0.0-3.0) Basophils (%) (Auto) 0.4 % (0.0-2.0) Sodium Level 147 MMOL/L (136-145) H Potassium Level 3.9 MMOL/L (3.5-5.1) Chloride Level 106 MMOL/L (98-107) Carbon Dioxide Level 31 MMOL/L (21-32) Anion Gap 10 mmol/L (5-15) Blood Urea Nitrogen 37 mg/dL (7-18) H Creatinine 1.7 MG/DL (0.55-1.30) H Estimat Glomerular Filtration Rate mL/min (>60) Glucose Level 147 MG/DL (74-106) H Uric Acid 5.1 MG/DL (2.6-7.2) Calcium Level 9.6 MG/DL (8.5-10.1) Phosphorus Level 3.7 MG/DL (2.5-4.9) Magnesium Level 2.1 MG/DL (1.8-2.4) Total Bilirubin 0.4 MG/DL (0.2-1.0) Aspartate Amino Transf (AST/SGOT) 40 U/L (15-37) H Alanine Aminotransferase (ALT/SGPT) 56 U/L (12-78) Alkaline Phosphatase 74 U/L (46-116) C-Reactive Protein, Quantitative 3.1 mg/dL (0.00-0.90) H Pro-B-Type Natriuretic Peptide 743 pg/mL (0-125) H Total Protein 8.6 G/DL (6.4-8.2) H Albumin 2.7 G/DL (3.4-5.0) L Globulin 5.9 g/dL Albumin/Globulin Ratio 0.5 (1.0-2.7) L Ayala Forman M.D. September 09, 2018 16:19
[2018-09-09] MEDS ORDERED: Ascorbic Acid 500mg tab GT SCH (18:00)
--- NOTE | 2018-09-10 09:15 | Discharge Summary ---
Discharge Summary Discharge Summary _ DATE OF ADMISSION: 09/01/2018 DATE OF DISCHARGE: 09/09/2018 DISCHARGED BY: Dr. Orozco REASON FOR ADMISSION: 83 years old female, [facility], with past medical history of diabetes mellitus, DVT, left foot osteomyelitis, status post above- knee amputation, seizure disorder, dementia, dysphagia, G-tube, functional quadriplegia, history of sepsis and urinary tract infection , was brought by ambulance for evaluation of respiratory distress and hypoxia. Patient initially was evaluated at [place] emergency room and was found to have bilateral pneumonia and being severely dehydrated. After receiving fluid challenge, patient was pancultured , started on empiric antibiotic and subsequently was transferred to [facility] for further management. CONSULTANTS: ID specialist Dr. Forman surgery Dr. Carter [facility] COURSE: Patient admitted to telemetry floor. Patient continued on IV fluids with free water administration. Supplemental oxygen provided as needed to keep pulse oximetry above 92%. Pulmonary toilet with bronchodilator provided as needed. Second two troponin were negative. Minimally elevated initial troponin was likely due to troponin leak secondary to acute renal failure. EKG revealed sinus rhythm, no acute ischemic changes. Antibiotics provided as per ID specialist recommendation. Urine culture was negative. Sputum culture was unable to be collected. Blood culture revealed Staphylococcus capitis and Staphylococcus epidermidis. No leukocytosis, no fevers. Elevated inflammatory marker CRP, trending down from initial 39.3 down to 3.1. Final report from [place] showed contamination. ID specialist recommended continue Zyvox for 2 weeks to treat bacteremia. Zyvox was switched to oral form upon discharge to finish the course of therapy. Patient was on empirical Zosyn for aspiration pneumonia. Patient switched to oral cefdinir upon discharge to complete the course. Strict aspiration precautions were maintained. G-tube feeding continued. Protein supplements provided as per tableau architect recommendation. Patient required transfusion while in the hospital for hemoglobin 6.9. Patient undergone total of 2 units of packed red blood cell transfusion. Hemoglobin and hematocrit were closely monitored with goal to keep hemoglobin above 7. Prior to discharge hemoglobin 11.4, hematocrit 34.6. Anemia work-up revealed evidence of anemia of chronic disease, in this case anemia of chronic kidney disease with stable B12 and folate. Blood sugar was managed with sliding scale of insulin. Hemoglobin A1c 6.3 -at goal. Blood sugar stabilized. Initial hyperglycemia was likely due to infectious process. Renal parameters and electrolytes were closely monitored, electrolytes corrected as needed, and nephrotoxins were avoided. Prior to discharge BUN 37, creatinine 1.7. Sodium trending down. Seizure precautions maintained. Keppra continued. No evidence of seizure activity while in the hospital. Antiplatelet therapy with aspirin and Eliquis were continued. No evidence of bleeding. GI prophylaxis and Carafate provided. Wound care for sacral decubitus ulcer stage IV present on admission , was provided as per surgeon recommendation. Continue wound care at the facility. Pain management was addressed as needed. Bowel regimen instituted. Supportive care provided. Patient was [facility] of care. FINAL DIAGNOSES: Aspiration pneumonia Acute acute on chronic renal failure Bacteremia Dehydration leading to hypernatremia Diabetes mellitus out of control Elevated troponin-likely troponin leak due to renal failure Seizure disorder Functional quadriplegia Dysphagia , G-tube feeding Anemia of chronic kidney disease Sacral decubitus ulcer stage III, present on admission DISCHARGE MEDICATIONS: See Medication Reconciliation list. DISCHARGE INSTRUCTIONS: [facility]. Follow up with medical doctor at the facility. I have been assigned to dictate discharge summary for this account. I was not involved in the patient's management. Radha Ortiz NP September 10, 2018 09:15
== END 2018-09-09 13:20 | DRG 177 ==
LOC: 2E 13:00
PROC: 30233N1 Transfusion of Nonautologous Red Blood Cells into Peripheral Vein, Percutaneous Approach (ICD-10-PCS; principal; 2018-09-03)
DX: J69.0 Pneumonitis due to inhalation of food and vomit (principal); L89.153 Pressure ulcer of sacral region, stage 3; R53.2 Functional quadriplegia; N17.9 Acute kidney failure, unspecified; E87.0 Hyperosmolality and hypernatremia; R78.81 Bacteremia; Z43.1 Encounter for attention to gastrostomy; G25.9 Extrapyramidal and movement disorder, unspecified; N39.0 Urinary tract infection, site not specified; M86.172 Other acute osteomyelitis, left ankle and foot; K92.2 Gastrointestinal hemorrhage, unspecified; J18.9 Pneumonia, unspecified organism; E11.22 Type 2 diabetes mellitus with diabetic chronic kidney disease; E11.65 Type 2 diabetes mellitus with hyperglycemia; N18.9 Chronic kidney disease, unspecified; B95.7 Other staphylococcus as the cause of diseases classified elsewhere; E86.0 Dehydration; G40.909 Epilepsy, unspecified, not intractable, without status epilepticus; Z86.718 Personal history of other venous thrombosis and embolism; R13.10 Dysphagia, unspecified; D63.1 Anemia in chronic kidney disease; Z88.8 Allergy status to other drugs, medicaments and biological substances; E11.43 Type 2 diabetes mellitus with diabetic autonomic (poly)neuropathy; K31.84 Gastroparesis; Z89.612 Acquired absence of left leg above knee
CPT/HCPCS: 36415; 71045; 80053; 80061; 80202; 80299; 81001; 82533; 82550; 82607; 82728; 82746; 82962; 82977; 83036; 83540; 83550; 83605; 83735; 83880; 84100; 84300; 84443; 84484; 84550; 85007; 85025; 85610; 85730; 86140; 86850; 86900; 86901; 86904; 86920; 87040; 87081; 87086; 87181; 89050; 94760; J1815; J8499

== ENCOUNTER 2018-11-24 15:20 | Inpatient (IN) | payer MEDICARE, MEDICAID ==
[~2018-11-24] VITALS: Ht 162.6 cm; Wt 73.9 kg
[~2018-11-24 15:20] MED LIST changes: +HYDRALAZINE HCL25 M1 GT; +ZYVOX600 MG ORAL
[2018-11-24 16:02] VITALS: BP 125/60
--- NOTE | 2018-11-24 16:04 | NUR ---
ED Nurse Note:pt. was BIBA from SNF with abnormal creatinin results, pt. is non-verbal, left AKA, has sacral skin discoloration, small skin errosion on right lower leg, VSS, blood and urine sent to labs, IV fluids given
[2018-11-24 16:11] LABS: ANION GAP 8 mmol/L (5-15); BLOOD UREA NITROGEN 89 mg/dL (7-18); CALCIUM 9.5 MG/DL (8.5-10.1); CARBON DIOXIDE 26 MMOL/L (21-32); CHLORIDE 114 MMOL/L (98-107); CREATININE 2.4 MG/DL (0.55-1.30); POTASSIUM 5.3 MMOL/L (3.5-5.1); SODIUM 148 MMOL/L (136-145)
[2018-11-24 16:16] LABS: BASOPHILS % (AUTO) 0.8 % (0.0-2.0); EOSINOPHILS % (AUTO) 1.3 % (0.0-3.0); HEMATOCRIT 31.6 % (37.0-47.0); HEMOGLOBIN 10.1 G/DL (12.0-16.0); LYMPHOCYTES % (AUTO) 38.8 % (20.0-45.0); MEAN CORPUSCULAR VOLUME 101 FL (80-99); MONOCYTES % (AUTO) 5.9 % (1.0-10.0); NEUTROPHILS % (AUTO) 53.2 % (45.0-75.0); PLATELET COUNT 181 K/UL (150-450); RED BLOOD COUNT 3.14 M/UL (4.20-5.40); RED CELL DISTRIBUTION WIDTH 15.9 % (11.6-14.8); WHITE BLOOD COUNT 6.4 K/UL (4.8-10.8)
[2018-11-24 16:21] LABS: ALANINE AMINOTRANSFERASE 6 U/L (12-78); ASPARTATE AMINO TRANSFERASE 11 U/L (15-37); BILIRUBIN,TOTAL 0.3 MG/DL (0.2-1.0)
[2018-11-24 16:22] LABS: ALBUMIN 3.6 G/DL (3.4-5.0); ALKALINE PHOSPHATASE 141 U/L (46-116)
[2018-11-24 16:33] LABS: APPEARANCE,URINE CLEAR; BILIRUBIN, URINE NEGATIVE (NEGATIVE); COLOR,URINE PALE YELLOW; GLUCOSE, URINE (UA) NEGATIVE (NEGATIVE); KETONES,URINE NEGATIVE (NEGATIVE); LEUKOCYTE ESTERASE ,URINE 1+ (NEGATIVE); NITRITE,URINE NEGATIVE (NEGATIVE); PH,URINE 8 (4.5-8.0); PROTEIN,URINE 3+ (NEGATIVE); UROBILINOGEN,URINE NORMAL MG/DL (0.0-1.0)
[2018-11-24 16:37] VITALS: BP 133/51
--- NOTE | 2018-11-24 17:25 | NUR ---
ED Nurse Note:placed F/C per MD order
[2018-11-24] MEDS ORDERED: NORVASC2.5 MG GT (17:26)
[2018-11-24] MEDS ORDERED: ZINC SULFATE220 M1 GT (17:31)
[2018-11-24] MEDS ORDERED: VITAMIN C500 M1 GT (17:31)
--- NOTE | 2018-11-24 17:35 | Emergency Room Report ---
History of Present Illness General Chief Complaint: Abnormal Labs Source: Medical Record, EMS Present Illness HPI 83-year-old female presents ED for evaluation. [facility] Reportedly recent lab work showed elevated BUN/creatinine. Patient nonverbal at baseline. Unable to provide any additional history at this time. No signs of distress upon arrival. No reported fevers or chills no reported nausea or vomiting. No other aggravating relieving factors. No other associated symptoms Allergies: Coded Allergies: METOCLOPRAMIDE (Verified Allergy, Unknown, 03/10/18) extrapyramidal Sx Patient History Past Medical History: DM, HTN, CVA/TIA, seizures, other - encephalopathy Pertinent Family History: none Social History: Denies: smoking, alcohol use, drug use Now: No Immunizations: UTD Reviewed Nursing Documentation: PMH: Agreed; PSxH: Agreed Nursing Documentation-PMH Hx Cardiac Problems: No - Sepsis, DVT, LT BKA Hx Hypertension: Yes Hx Pacemaker: No Hx Asthma: No Hx COPD: Yes - PNA Hx Diabetes: Yes - DM2 Hx Cancer: No Hx Gastrointestinal Problems: Yes - G-tube Hx Dialysis: No 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 Hx Dementia: Yes Hx Seizures: Yes - Epilepsy Hx Epilepsy: Yes Hx Speech Problem: Yes - Non-verbal Hx Dysphasia: Yes - G-tube Review of Systems All Other Systems: limited Physical Exam Vital Signs Date Time Temp Pulse Resp B/P (MAP) Pulse Ox O2 Delivery O2 Flow Rate FiO2 11/24/18 15:19 97.3 86 18 125/60 (81) 97 Room Air Sp02 EP Interpretation: reviewed, normal General Appearance: other - nonverbal Head: normocephalic Eyes: bilateral eye normal inspection, bilateral eye PERRL ENT: normal ENT inspection Neck: tracheotomy Respiratory: chest non-tender, lungs clear, normal breath sounds, speaking full sentences Cardiovascular #1: regular rate, rhythm, no edema Gastrointestinal: normal bowel sounds, non tender, soft, non-distended, no guarding, no rebound Rectal: deferred Genitourinary: no CVA tenderness Musculoskeletal: normal inspection Neurologic: other - nonverbal Psychiatric: other - nonverbal Skin: other - see nursing notes for skin Lymphatic: no adenopathy Medical Decision Making Diagnostic Impression: Primary Impression: Acute on chronic renal failure Qualified Codes: N17.9 - Acute kidney failure, unspecified; N18.9 - Chronic kidney disease, unspecified ER Course Hospital Course 83 yo F presents to ED for abnomral BUN/Cr Differential diagnoses include: hyperkalemia, uremia, dehydration Clinical course Patient placed on stretcher. on hospital monitor. After initial history and physical I ordered labs, EKG, IVFs labs reviewed- Na 148, BUN 89/Cr 2.4, hemoglobin/hematocrit stable, no leukocytosis, UA negative EKG - NSR, no acute ischemic changes interpreted by me IVfs given. Case discussed with Dr. Roberto and he agreed to accept the patient to his service for further care and support I. I feel this is a highly complex case requiring extensive working including EKG/Rhythm strip, Xray/CT/US, Blood/urine lab work, repeat exams while in ED, and administration of strong opiates/narcotics for pain control, admission to hospital or close patient follow up. Diagnosis - acute on chronic renal failure admitted to telemetry in serious condition Labs Test 11/24/18 15:50 11/24/18 16:10 White Blood Count 6.4 K/UL (4.8-10.8) Red Blood Count 3.14 M/UL (4.20-5.40) Hemoglobin 10.1 G/DL (12.0-16.0) Hematocrit 31.6 % (37.0-47.0) Mean Corpuscular Volume 101 FL (80-99) Mean Corpuscular Hemoglobin 32.3 PG (27.0-31.0) Mean Corpuscular Hemoglobin Concent 32.1 G/DL (32.0-36.0) Red Cell Distribution Width 15.9 % (11.6-14.8) Platelet Count 181 K/UL (150-450) Mean Platelet Volume 8.6 FL (6.5-10.1) Neutrophils (%) (Auto) 53.2 % (45.0-75.0) Lymphocytes (%) (Auto) 38.8 % (20.0-45.0) Monocytes (%) (Auto) 5.9 % (1.0-10.0) Eosinophils (%) (Auto) 1.3 % (0.0-3.0) Basophils (%) (Auto) 0.8 % (0.0-2.0) Sodium Level 148 MMOL/L (136-145) Potassium Level 5.3 MMOL/L (3.5-5.1) Chloride Level 114 MMOL/L (98-107) Carbon Dioxide Level 26 MMOL/L (21-32) Anion Gap 8 mmol/L (5-15) Blood Urea Nitrogen 89 mg/dL (7-18) Creatinine 2.4 MG/DL (0.55-1.30) Estimat Glomerular Filtration Rate mL/min (>60) Glucose Level 192 MG/DL (74-106) Calcium Level 9.5 MG/DL (8.5-10.1) Total Bilirubin 0.3 MG/DL (0.2-1.0) Aspartate Amino Transf (AST/SGOT) 11 U/L (15-37) Alanine Aminotransferase (ALT/SGPT) 6 U/L (12-78) Alkaline Phosphatase 141 U/L (46-116) Total Protein 9.6 G/DL (6.4-8.2) Albumin 3.6 G/DL (3.4-5.0) Globulin 6.0 g/dL Lipase 488 U/L (73-393) Urine Color Pale yellow Urine Appearance Clear Urine pH 8 (4.5-8.0) Urine Specific [place] 1.010 (1.005-1.035) Urine Protein 3+ (NEGATIVE) Urine Glucose (UA) Negative (NEGATIVE) Urine Ketones Negative (NEGATIVE) Urine Blood Negative (NEGATIVE) Urine Nitrite Negative (NEGATIVE) Urine Bilirubin Negative (NEGATIVE) Urine Urobilinogen Normal MG/DL (0.0-1.0) Urine Leukocyte Esterase 1+ (NEGATIVE) Urine RBC 0-2 /HPF (0 - 2) Urine WBC 2-4 /HPF (0 - 2) Urine Squamous Epithelial Cells Few /LPF (NONE/OCC) Urine Bacteria Few /HPF (NONE) EKG Diagnostic Results Rate: normal Rhythm: NSR ST Segments: no acute changes ASA given to the pt in ED: No Rhythm Strip Diag. Results EP Interpretation: yes Rhythm: NSR, no PVC's, no ectopy Last Vital Signs Date Time Temp Pulse Resp B/P (MAP) Pulse Ox O2 Delivery O2 Flow Rate FiO2 11/24/18 16:37 97.3 81 25 133/51 97 Room Air Status: improved Disposition: ADMITTED INPATIENT Condition: Serious Referrals: Estevan Orozco MD (PCP) Mario Alberto Delvalle MD Nov 24, 2018 17:35
--- NOTE | 2018-11-24 17:44 | NUR ---
ED Nurse Note:pt. was transfered to tele, report given to Susie SMITH
--- NOTE | 2018-11-24 18:30 | NUR ---
NURSE NOTES: Received patient from Frank Noe. Patient awake doent follow commands. VSS. NO s/s of distress. Initial assessment initiated. awaiting orders from dr. Orozco.
--- NOTE | 2018-11-24 19:30 | NUR ---
NURSE NOTES: Received patient from Sherita SMITH. Patient in bed, on room air, no s/s of respiratory distress. Gtube clogged, instilled warm water to de clog the tube. Bed in low position, locked, bed alarm on, call light within reach. Patient is Alert and oriented x0, does not respond to name, no eye tracking. Bilateral upper extremities contracted. Left AKA. Dressing on sacrum intact.
--- NOTE | 2018-11-24 19:41 | NUR ---
HAND-OFF: Report given to Frank Torres. Patient stable. Plan of care endorsed. still awaiting MD orders
[2018-11-24 20:00] VITALS: BP 171/94
--- NOTE | 2018-11-24 20:00 | NUR ---
NURSE NOTES: D5W started at 75ml/hr via left hand 24 gauge PIV.
[2018-11-24] MEDS ORDERED: Acetaminophen 650mg/20.3ml GT PRN (20:15)
[2018-11-24] MEDS ORDERED: HydrALAZINE 25mg tab GT PRN (20:15)
[2018-11-24] MEDS: traMADol 50mg tab GT SCH (20:41)
[2018-11-24] MEDS: levETIRAcetam 500mg/5ml Liquid GT SCH (20:42)
--- NOTE | 2018-11-24 20:45 | NUR ---
NURSE NOTES: G tube de clogged, no residual. Flushed and patent.
[2018-11-24 22:15] VITALS: BP_SYST 113; BP_SYST 53; BP_DIAS 53
[2018-11-24] MEDS: Levemir Flexpen SUBQ SCH (22:17)
[2018-11-24] MEDS: Erythromycin Ethylsuccinate 200mg/5ml Susp GT SCH (23:29)
[2018-11-25] VITALS: BP 152/101
[2018-11-25] MEDS ORDERED: NovoLOG Insulin Flexpen SUBQ SCH
[2018-11-25 04:00] VITALS: BP 123/53
[2018-11-25] MEDS: traMADol 50mg tab GT SCH ×3 (05:08→20:51)
[2018-11-25] MEDS: Erythromycin Ethylsuccinate 200mg/5ml Susp GT SCH ×4 (05:08→23:51)
[2018-11-25] MEDS: NovoLOG Insulin Flexpen SUBQ SCH ×4 (05:27→18:02)
[2018-11-25 06:44] LABS: BASOPHILS % (AUTO) 0.9 % (0.0-2.0); EOSINOPHILS % (AUTO) 1.4 % (0.0-3.0); HEMATOCRIT 27.4 % (37.0-47.0); HEMOGLOBIN 8.8 G/DL (12.0-16.0); MEAN CORPUSCULAR VOLUME 102 FL (80-99); MONOCYTES % (AUTO) 6.5 % (1.0-10.0); NEUTROPHILS % (AUTO) 52.1 % (45.0-75.0); PLATELET COUNT 156 K/UL (150-450); RED BLOOD COUNT 2.68 M/UL (4.20-5.40); RED CELL DISTRIBUTION WIDTH 16.4 % (11.6-14.8); WHITE BLOOD COUNT 6.3 K/UL (4.8-10.8)
[2018-11-25 06:59] LABS: AMMONIA < 10 umol/L (11-32)
[2018-11-25 07:05] LABS: ALANINE AMINOTRANSFERASE 11 U/L (12-78); ALBUMIN 3.2 G/DL (3.4-5.0); ALBUMIN/GLOBULIN RATIO 0.6 (1.0-2.7); ALKALINE PHOSPHATASE 120 U/L (46-116); ANION GAP 8 mmol/L (5-15); ASPARTATE AMINO TRANSFERASE 12 U/L (15-37); BILIRUBIN,TOTAL 0.3 MG/DL (0.2-1.0); BLOOD UREA NITROGEN 73 mg/dL (7-18); CALCIUM 9.1 MG/DL (8.5-10.1); CARBON DIOXIDE 27 MMOL/L (21-32); CHLORIDE 113 MMOL/L (98-107); CHOLESTEROL 183 MG/DL (< 200); CREATININE 2.2 MG/DL (0.55-1.30); FERRITIN 1138 NG/ML (8-388); GAMMA GLUTAMYL TRANSPEPTIDASE 37 U/L (5-85); HDL CHOLESTEROL 32 MG/DL (40-60); PHOSPHORUS 4.2 MG/DL (2.5-4.9); SODIUM 148 MMOL/L (136-145); TRIGLYCERIDES 331 MG/DL (30-150)
[2018-11-25 07:21] LABS: % IRON SATURATION 30 % (15-50); IRON 76 ug/dL (50-175); TOTAL IRON BINDING CAPACITY 251 ug/dL (250-450)
--- NOTE | 2018-11-25 07:43 | NUR ---
NURSE NOTES: Received bedside report from Brian SMITH. Pt. in bed, non-verbal. No sign of distress. No grimacing noted. HOB elevated at all times. On GTF Nepro 30cc/hr. Tolerating well. F/C in placed patent/intact draining yellow colored urine. IV site at right thumb #24g. in placed patent/intact running D5W at 75cc/hr. Bed in low position, locked. Call light within reach. Will cont. to monitor.
--- NOTE | 2018-11-25 07:49 | NUR ---
HAND-OFF: Report given to Partha SMITH. Plan of care endorsed.
[2018-11-25 08:00] VITALS: BP 141/70
--- NOTE | 2018-11-25 08:03 | NUR ---
RADIOLOGY: PCXR COMPLETED 0720 HRS. NF
[2018-11-25] MEDS: Sucralfate 1gm tab GT SCH ×2 (08:49→17:48)
[2018-11-25] MEDS: Aspirin Baby 81mg GT SCH (08:49)
[2018-11-25] MEDS: levETIRAcetam 500mg/5ml Liquid GT SCH ×2 (08:49→20:52)
[2018-11-25] MEDS: Eliquis 2.5mg tablet GT SCH ×2 (08:49→17:48)
[2018-11-25] MEDS: Levemir Flexpen SUBQ SCH ×2 (08:53→20:59)
--- NOTE | 2018-11-25 09:02 | Diagnostic Imaging Report ---
Indication: Cough Technique: One view of the chest Comparison: 09/06/2018 Findings: Lungs and pleural spaces are currently clear. Previously demonstrated infiltrates are no longer evident. The heart size is normal. The aorta is tortuous and calcified Impression: No acute process
[2018-11-25] MEDS ORDERED: Levemir Flexpen SUBQ ONE (11:00)
--- NOTE | 2018-11-25 11:16 | Consultation ---
History of Present Illness General Chief Complaint: Abnormal Labs Present Illness HPI 83 year old female with hx of CVA, aphasic, for over decades bed bound, DM, HTN , seizures, multiple episodes of Decubiti and osteomyelitis and nosocomial infections, [facility] resident brought in because of worsening renal function. Pt is in vegetative state and kept alive with artificial feeding for yours. Allergies: Coded Allergies: METOCLOPRAMIDE (Verified Allergy, Unknown, 03/10/18) extrapyramidal Sx Medication History Scheduled Acetaminophen* (Tylenol Extra Strength*), 1,000 MG GT DAILY, (Reported) Amlodipine Besylate (Norvasc), 10 MG GT DAILY, (Reported) Apixaban (Eliquis), 2.5 MG GT BID, (Reported) Ascorbic Acid* (Vitamin C*), 500 MG GT DAILY, (Reported) Aspirin* (Aspir 81*), 81 MG GT DAILY, (Reported) Cefdinir (Cefdinir), 300 MG ORAL Q12HR Cranberry Fruit (Cranberry), 450 MG GT DAILY, (Reported) Diphenhydramine Hcl* (Diphenhydramine Hcl*), 25 MG GT Q8H, (Reported) Erickson E-Succ/Sulfisoxazole (Erythromycin-Sulfisox Susp), 50 MG GT Q6HR Insulin Aspart (Novolog Flexpen), 0 UNITS SUBQ Q6HR Insulin Detemir (Levemir Flexpen), 20 UNITS SUBQ BID Lansoprazole* (Lansoprazole*), 30 MG GT BID Levetiracetam (Keppra), 1,000 MG GT Q12HR Levofloxacin* (Levaquin*), 500 MG GT DAILY Linezolid* (Zyvox*), 600 MG ORAL EVERY 12 HOURS Multivitamin With Minerals (Multivitamins With Minerals*), 1 TAB GT DAILY, ( Reported) Mupirocin (Mupirocin), 1 APPLIC TOPIC THREE TIMES A DAY Nateglinide (Starlix), 120 MG GT DAILY, (Reported) Nitroglycerin (Nitroglycerin Patch), 1 PATCH TDERMAL Q24H Pantoprazole Sodium (Protonix), 40 MG GT DAILY, (Reported) Polyethylene Glycol 3350* (Miralax*), 17 GM GT DAILY, (Reported) Sucralfate* (Carafate*), 1 GM GT BID Tramadol Hcl* (Ultram*), 25 MG GT Q8HR, (Reported) Zinc Sulfate (Zinc Sulfate*), 220 MG GT DAILY, (Reported) Scheduled PRN Acetaminophen* (Acetaminophen 325MG Tablet*), 650 MG GT Q4H PRN for Mild Pain/ Temp > 100.5, (Reported) Hydralazine Hcl* (Hydralazine Hcl*), 25 MG GT Q4H PRN Discontinued Medications Amlodipine Besylate (Norvasc), MG GT, (Reported) Discontinued Reason: Medication dose changed Patient History Healthcare decision maker N Resuscitation status Advanced Directive on File Past Medical/Surgical History Past Medical/Surgical History: (1) Sepsis (2) Osteomyelitis of ankle or foot, left, acute (3) Diabetes (4) Dementia (5) Seizure disorder (6) Functional quadriplegia (7) G tube feedings (8) Epileptic seizure, generalized (9) Gastroparesis due to DM Review of Systems All Other Systems: negative except mentioned in HPI Physical Exam General Appearance: WD/WN, no apparent distress Lines, tubes and drains: peripheral HEENT: normocephalic, atraumatic Neck: non-tender, normal alignment Respiratory/Chest: chest wall non-tender, lungs clear Breasts: no masses Cardiovascular/Chest: normal peripheral pulses, normal rate Abdomen: normal bowel sounds, non tender Genitourinary/Rectal: normal genital exam Extremities: normal range of motion Last 24 Hour Vital Signs Date Time Temp Pulse Resp B/P (MAP) Pulse Ox O2 Delivery O2 Flow Rate FiO2 11/25/18 09:00 Room Air 11/25/18 08:49 85 141/70 11/25/18 08:00 97.4 85 20 141/70 (93) 99 11/25/18 07:52 79 11/25/18 04:00 97.6 79 19 123/53 (76) 98 11/25/18 04:00 74 11/25/18 03:34 74 11/25/18 00:00 98.3 83 152/101 (118) 11/25/18 00:00 19 97 11/24/18 23:36 80 11/24/18 22:15 84 113/53 (73) 11/24/18 22:15 84 53/ 11/24/18 21:00 Room Air 11/24/18 20:00 98.9 93 18 171/94 (119) 98 11/24/18 19:58 87 11/24/18 18:23 Room Air 11/24/18 17:42 97.3 81 25 133/51 97 Room Air 11/24/18 16:37 97.3 81 25 133/51 97 Room Air 11/24/18 16:02 97.3 18 125/60 97 Room Air 11/24/18 15:19 97.3 86 18 125/60 (81) 97 Room Air Intake and Output 11/24/18 11/25/18 19:00 07:00 Intake Total 1207.5 ml Balance 1207.5 ml Intake Free Water 120 ml IV Total 787.5 ml Tube Feeding 300 ml # Voids 1 # Bowel Movements 2 Laboratory Tests Test 11/24/18 15:50 11/24/18 16:10 11/25/18 06:00 White Blood Count 6.4 K/UL (4.8-10.8) 6.3 K/UL (4.8-10.8) Red Blood Count 3.14 M/UL (4.20-5.40) L 2.68 M/UL (4.20-5.40) L Hemoglobin 10.1 G/DL (12.0-16.0) L 8.8 G/DL (12.0-16.0) L Hematocrit 31.6 % (37.0-47.0) L 27.4 % (37.0-47.0) L Mean Corpuscular Volume 101 FL (80-99) H 102 FL (80-99) H Mean Corpuscular Hemoglobin 32.3 PG (27.0-31.0) H 32.7 PG (27.0-31.0) H Mean Corpuscular Hemoglobin Concent 32.1 G/DL (32.0-36.0) 32.0 G/DL (32.0-36.0) Red Cell Distribution Width 15.9 % (11.6-14.8) H 16.4 % (11.6-14.8) H Platelet Count 181 K/UL (150-450) 156 K/UL (150-450) Mean Platelet Volume 8.6 FL (6.5-10.1) 8.4 FL (6.5-10.1) Neutrophils (%) (Auto) 53.2 % (45.0-75.0) 52.1 % (45.0-75.0) Lymphocytes (%) (Auto) 38.8 % (20.0-45.0) 39.0 % (20.0-45.0) Monocytes (%) (Auto) 5.9 % (1.0-10.0) 6.5 % (1.0-10.0) Eosinophils (%) (Auto) 1.3 % (0.0-3.0) 1.4 % (0.0-3.0) Basophils (%) (Auto) 0.8 % (0.0-2.0) 0.9 % (0.0-2.0) Sodium Level 148 MMOL/L (136-145) H 148 MMOL/L (136-145) H Potassium Level 5.3 MMOL/L (3.5-5.1) H 4.0 MMOL/L (3.5-5.1) Chloride Level 114 MMOL/L (98-107) H 113 MMOL/L (98-107) H Carbon Dioxide Level 26 MMOL/L (21-32) 27 MMOL/L (21-32) Anion Gap 8 mmol/L (5-15) 8 mmol/L (5-15) Blood Urea Nitrogen 89 mg/dL (7-18) H 73 mg/dL (7-18) H Creatinine 2.4 MG/DL (0.55-1.30) H 2.2 MG/DL (0.55-1.30) H Estimat Glomerular Filtration Rate mL/min (>60) mL/min (>60) Glucose Level 192 MG/DL (74-106) H 262 MG/DL (74-106) H Calcium Level 9.5 MG/DL (8.5-10.1) 9.1 MG/DL (8.5-10.1) Total Bilirubin 0.3 MG/DL (0.2-1.0) 0.3 MG/DL (0.2-1.0) Aspartate Amino Transf (AST/SGOT) 11 U/L (15-37) L 12 U/L (15-37) L Alanine Aminotransferase (ALT/SGPT) 6 U/L (12-78) L 11 U/L (12-78) L Alkaline Phosphatase 141 U/L (46-116) H 120 U/L (46-116) H Total Protein 9.6 G/DL (6.4-8.2) H 8.4 G/DL (6.4-8.2) H Albumin 3.6 G/DL (3.4-5.0) 3.2 G/DL (3.4-5.0) L Globulin 6.0 g/dL 5.2 g/dL Lipase 488 U/L (73-393) H Urine Color Pale yellow Urine Appearance Clear Urine pH 8 (4.5-8.0) Urine Specific [place] 1.010 (1.005-1.035) Urine Protein 3+ (NEGATIVE) H Urine Glucose (UA) Negative (NEGATIVE) Urine Ketones Negative (NEGATIVE) Urine Blood Negative (NEGATIVE) Urine Nitrite Negative (NEGATIVE) Urine Bilirubin Negative (NEGATIVE) Urine Urobilinogen Normal MG/DL (0.0-1.0) Urine Leukocyte Esterase 1+ (NEGATIVE) H Urine RBC 0-2 /HPF (0 - 2) Urine WBC 2-4 /HPF (0 - 2) Urine Squamous Epithelial Cells Few /LPF (NONE/OCC) Urine Bacteria Few /HPF (NONE) Urine Random Sodium 45 mmol/L (20-110) Hemoglobin A1c 6.6 % (4.3-6.0) H Lactic Acid Level 1.20 mmol/L (0.4-2.0) Uric Acid 6.8 MG/DL (2.6-7.2) Phosphorus Level 4.2 MG/DL (2.5-4.9) Magnesium Level 2.8 MG/DL (1.8-2.4) H Iron Level 76 ug/dL (50-175) Total Iron Binding Capacity 251 ug/dL (250-450) Percent Iron Saturation 30 % (15-50) Unsaturated Iron Binding 175 ug/dL (112-346) Ferritin 1138 NG/ML (8-388) H Gamma Glutamyl Transpeptidase 37 U/L (5-85) Ammonia < 10 umol/L (11-32) L Troponin I 0.001 ng/mL (0.000-0.056) C-Reactive Protein, Quantitative 1.4 mg/dL (0.00-0.90) H Pro-B-Type Natriuretic Peptide 351 pg/mL (0-125) H Albumin/Globulin Ratio 0.6 (1.0-2.7) L Triglycerides Level 331 MG/DL (30-150) H Cholesterol Level 183 MG/DL (< 200) LDL Cholesterol 106 mg/dL (<100) H HDL Cholesterol 32 MG/DL (40-60) L Cholesterol/HDL Ratio 5.7 (3.3-4.4) H Vitamin B12 Level 1038 PG/ML (193-986) H Folate 19.5 NG/ML (8.6-58.9) Thyroid Stimulating Hormone (TSH) 1.088 uiU/mL (0.358-3.740) Microbiology Date/Time Source Procedure Growth Status 11/24/18 19:15 Rectum Received Height (Feet): 5 Height (Inches): 4.00 Weight (Pounds): 160 Medications Current Medications Medications (Trade) Dose Ordered Sig/Nancy Route PRN Reason Start Time Stop Time Status Last Admin Dose Admin Acetaminophen (Tylenol) 650 mg Q4H PRN GT Mild Pain/Temp > 100.5 11/24/18 20:15 12/24/18 20:14 Amlodipine Besylate (Norvasc) 5 mg DAILY GT 11/25/18 09:00 12/25/18 08:59 11/25/18 08:49 Apixaban (Eliquis) 2.5 mg BID GT 11/25/18 09:00 12/25/18 08:59 11/25/18 08:49 Aspirin (ASA) 81 mg DAILY GT 11/25/18 09:00 12/25/18 08:59 11/25/18 08:49 Dextrose 1,000 ml @ 75 mls/hr [id number] IV 11/24/18 20:15 12/24/18 20:14 11/25/18 09:29 Dextrose (Dextrose 50%) 25 ml Q30M PRN IV Hypoglycemia 11/24/18 23:45 12/24/18 23:44 Dextrose (Dextrose 50%) 50 ml Q30M PRN IV Hypoglycemia 11/24/18 23:45 12/24/18 23:44 Epoetin Wallace (Epoetin Wallace-EPBX(NON ESRD)) 10,000 unit MON-SAT-SAT SUBQ 11/26/18 21:00 12/26/18 20:59 Erythromycin (Erickson-Ped) 50 mg Q6HR GT 11/25/18 00:00 12/02/18 00:00 11/25/18 05:08 Hydralazine HCl (Apresoline) 25 mg Q4H PRN GT bp over 160 syst 11/24/18 20:15 12/24/18 20:14 Insulin Aspart (NovoLOG) Q6HR SUBQ 11/25/18 00:00 12/25/18 00:00 11/25/18 05:27 Insulin Detemir (Levemir) 20 units Q12HR SUBQ 11/25/18 21:00 12/24/18 20:59 Lansoprazole (Prevacid) 30 mg BID GT 11/25/18 18:00 12/25/18 08:59 Levetiracetam (Keppra) 1,000 mg Q12HR GT 11/24/18 21:00 12/24/18 20:59 11/25/18 08:49 Sucralfate (Carafate) 1 gm BID GT 11/25/18 09:00 12/25/18 08:59 11/25/18 08:49 Tramadol HCl (Ultram) 25 mg Q8H GT 11/24/18 20:15 12/01/18 20:14 11/25/18 05:08 Assessment/Plan Problem List: (1) At high risk for aspiration ICD Codes: Z91.89 - Other specified personal risk factors, not elsewhere classified SNOMED: 389725039 (2) Acute on chronic renal failure ICD Codes: N17.9 - Acute kidney failure, unspecified; N18.9 - Chronic kidney disease, unspecified SNOMED: 464366781 Qualifiers: Qualified Codes: N17.9 - Acute kidney failure, unspecified; N18.9 - Chronic kidney disease, unspecified (3) Anemia in CKD (chronic kidney disease) ICD Codes: N18.9 - Chronic kidney disease, unspecified; D63.1 - Anemia in chronic kidney disease SNOMED: 376263022 (4) Epileptic seizure, generalized ICD Codes: G40.309 - Generalized idiopathic epilepsy and epileptic syndromes, not intractable, without status epilepticus SNOMED: 06390676 (5) Functional quadriplegia ICD Codes: R53.2 - Functional quadriplegia SNOMED: 139456296306927 (6) Right hemiparesis ICD Codes: G81.90 - Hemiplegia, unspecified affecting unspecified side SNOMED: 530818231 (7) G tube feedings ICD Codes: Z93.1 - G tube feedings SNOMED: 911818374 (8) Diabetes ICD Codes: E11.9 - Type 2 diabetes mellitus without complications SNOMED: 23265948 (9) Dementia ICD Codes: F03.90 - Dementia SNOMED: 60010959 Assessment/Plan: renal studies iv fluids check electrolytes Urine analysis cobb cultures gtube site care dvt prophylaxis. Saira Lazcano MD Nov 25, 2018 11:16
--- NOTE | 2018-11-25 11:24 | History & Physical ---
History and Physical History & Physicial 83-year-old female presents ED for evaluation. Brought by EMS from residential facility. Reportedly recent lab work showed elevated BUN/creatinine. Patient nonverbal at baseline. Unable to provide any additional history at this time. No signs of distress upon arrival. No reported fevers or chills no reported nausea or vomiting. No other aggravating relieving factors. 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 MEDICATIONS LIST: per record PHYSICAL EXAMINATION: GENERAL: At this time, the patient is nonverbal. Eyes are closed. Appears rigid. Slightly pale. VITAL SIGNS: Temperature 99.6, respiratory rate is 19, and pulse rate is 89 with occasional irregular beats. Palpable. HEENT: The head is normocephalic. NECK: Rigid to all directions. Eyes are closed. LUNGS: Poor inspiratory effort. Decreased breath sound over the bases. Heart mainly liver regular. ABDOMEN: Slightly distended. GT tube in place. EXTREMITIES: Left [id number] amputation. There is stasis and poor circulation over the right lower extremity seen. IMPRESSION: . Acute renal failure. . Underlying chronic renal failure. . Dehydration leading to hypernatremia. . Diabetes mellitus, out of control. . Other condition mentioned in the past history. Hydrate- BP and BS control per orders CXR urine c/s Estevan Orozco MD Nov 25, 2018 11:24
[2018-11-25] MEDS ORDERED: Levemir Flexpen SUBQ SCH (11:30)
[2018-11-25 12:00] VITALS: BP 107/55
--- NOTE | 2018-11-25 12:19 | NUR ---
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 2) Swallowing difficulty r/t dysphagia as evidenced by pt is PEG dep, on GT feeding. 3) Altered nutrition related lab values r/t clinical status as evidenced by low Hgb (8.8), elev Na (148), elev BUN and creat- now trending down, elev BG (192-262), A1C 6.6. (CURRENT TF:Nepro @ 30ml/hr x 24 hrs) ENTERAL NUTRITION RECOMMENDATIONS-->> NEPRO @ 40ml/hr x 24 hrs to provide 960ml, 1728kcal, 78g prot , 698ml free water - As medically able rec to advance 10ml q 4-6 hrs as tolerated to goal to better meet est kcal and pro needs. - HOB over 30 degrees/ water flush per MD. ----- ADDITIONAL RECOMMENDATIONS: 1) Weekly calibrated bed scale wts 2) Wound healing: add Damian 1pkt BID via GT F/up w/ WC eval 3) Monitor lytes daily, replete as needed 4) Monitor Renal fxn and lytes, need for Nepro TF formula -
--- NOTE | 2018-11-25 13:57 | Cardiology Report ---
APPROVED REPORT EKG Measurement Heart [id number] Normal sinus rhythm Nonspecific T wave abnormality Abnormal ECG
--- NOTE | 2018-11-25 14:53 | NUR ---
NURSE NOTES:WOUND CARE NOTES:Pt presented on admission with L AKA,Pressure injuries.Historical Stage four pressure injury sacrum. Hyperpigmentation noted with scattered shearing. Hyperpigmentation R ischium. Resolving unstageable pressure injury R heel. Wound is crescent shaped with stable dry eschar (L)7cm x (W)3cm.Hyperpigmentation and dry peeling skin periwound.Stable dry eschar noted to R hallux (L)2cm x (W)1.5cm. No other skin concerns noted. Tx.Plan: Apply Cavilon To R hallux and R heel. Cover each site with Optifoam drsgs. Change every 7 days and prn. Apply Moisture Barrier Paste to Sacrum . Cover with Optifoam drsg. Change every 3 days and prn. Apply Moisture Barrier to Abdominal folds,Bilat groin and ischial areas with each incontinence care. APM/KALE mattress overlay. Reposition at least every 2hours or as tolerated. Off-load L heel with pillow.
--- NOTE | 2018-11-25 15:22 | NUR ---
CASE MANAGEMENT:REVIEW 83 YR OLD FEMALE BIBA FROM [facility] CONV CC: ABNORMAL LABS SI: AC/CHR RENAL FAILURE 97.3 86 18 125/60 97% ON RA NA+148 CR+5.3 BUN+89 CR+2.4 IS: 500CC NS BOLUS : TO TELEMETRY DCP: RETURN TO [facility]
[2018-11-25 16:00] VITALS: BP 143/69
--- NOTE | 2018-11-25 18:59 | NUR ---
HAND-OFF: Report given to Brian SMIHT. Pt. remain stable.
--- NOTE | 2018-11-25 19:00 | NUR ---
NURSE NOTES: Received patient from Patrha RN, patient in bed, on room air, no s/s of respiratory distress. No residual from G tube, on nepro at 30ml/hr. Umaña catheter intact. 24 gauge PIV on right thumb intact, with D5W infusing at 75ml/hr. Bed in low position, locked. Side rails padded for seizure precaution. Call light within reach.
[2018-11-25] MEDS ORDERED: MULTI-DELYN237 ML GT (19:59)
[2018-11-25] MEDS ORDERED: PRO-STAT LIQUID30 ML GT (19:59)
[2018-11-25] MEDS ORDERED: NITRO-DUR1 EAC1 TD (19:59)
[2018-11-25 20:00] VITALS: BP 152/69
[2018-11-26] VITALS: BP 149/85
[2018-11-26] MEDS: NovoLOG Insulin Flexpen SUBQ SCH ×4 (00:01→17:17)
[2018-11-26 04:00] VITALS: BP 143/56
[2018-11-26] MEDS: Erythromycin Ethylsuccinate 200mg/5ml Susp GT SCH ×3 (05:18→17:08)
[2018-11-26] MEDS: traMADol 50mg tab GT SCH ×3 (05:18→21:38)
--- NOTE | 2018-11-26 07:53 | NUR ---
NURSE NOTES: Received report from LUIS Torres. Patient in bed resting, no active s/s cardiac, respiratory distress noticed at this time. Patient on room air, AOx0, ope eyes spontaneously, non verbal, SR with HR 75. IV on right hand 24G, asymptomatic, patent, intact, IV fluid running as prescribed rate. G-tube feeding, on nephro at 30ml/h, asymptomatic, patent, intact. Umaña Catheter intact, draining well to gravity. Bed in lowest position, side rails upx2, call light within reach. Will continue to monitor.
[2018-11-26 08:00] VITALS: BP 140/56
[2018-11-26] MEDS: Eliquis 2.5mg tablet GT SCH ×3 (08:37→17:08)
[2018-11-26] MEDS: Aspirin Baby 81mg GT SCH ×2 (08:37→09:00)
[2018-11-26] MEDS: Sucralfate 1gm tab GT SCH ×3 (08:37→17:08)
[2018-11-26] MEDS: levETIRAcetam 500mg/5ml Liquid GT SCH ×3 (08:38→21:39)
[2018-11-26] MEDS: Levemir Flexpen SUBQ SCH ×2 (08:41→21:40)
--- NOTE | 2018-11-26 09:48 | NUR ---
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 2) Swallowing difficulty r/t dysphagia as evidenced by pt is PEG dep, on GT feeding. 3) Altered nutrition related lab values r/t clinical status as evidenced by low Hgb (8.8), elev Na (148), elev BUN and creat- now trending down, elev BG (192-262), A1C 6.6. (CURRENT TF: Nepro @ 30ml/hr x 24 hrs) ENTERAL NUTRITION RECOMMENDATIONS--->>> NEPRO @ 40ml/hr x 24 hrs to provide 960ml, 1728kcal, 78g prot , 698ml free water - As medically able rec to advance 10ml q 4-6 hrs as tolerated to goal \ to better meet est kcal and pro needs. - HOB over 30 degrees/ water flush per MD. ----- ADDITIONAL RECOMMENDATIONS: 1) Weekly calibrated bed scale wts 2) Wound healing: add Damian 1pkt BID via GT Rec Vit C/ dosing per MD MVI or Nephrovite x1 daily 3) Monitor lytes daily, replete as needed 4) Monitor Renal fxn and lytes, need for Nepro TF formula
--- NOTE | 2018-11-26 10:44 | Pulmonology Progress Note ---
Assessment/Plan Problems: (1) At high risk for aspiration (2) Acute on chronic renal failure (3) Anemia in CKD (chronic kidney disease) (4) Epileptic seizure, generalized (5) Functional quadriplegia (6) Right hemiparesis (7) G tube feedings (8) Diabetes (9) Dementia Assessment/Plan check cultures check electrolytes daily iv abx med/surg, normal sinus rhythm no need for telemetry dvt prophylaxis Subjective ROS Limited/Unobtainable: No Constitutional: Reports: no symptoms HEENT: Repors: no symptoms Allergies: Coded Allergies: METOCLOPRAMIDE (Verified Allergy, Unknown, 03/10/18) extrapyramidal Sx Objective Last 24 Hour Vital Signs Date Time Temp Pulse Resp B/P (MAP) Pulse Ox O2 Delivery O2 Flow Rate FiO2 11/26/18 08:00 98.6 73 18 140/56 (84) 100 11/26/18 04:00 98.1 75 18 143/56 (85) 100 11/26/18 04:00 69 11/26/18 00:00 83 11/26/18 00:00 98.4 90 18 149/85 (106) 96 11/25/18 21:21 98.3 11/25/18 21:00 Room Air 11/25/18 20:00 81 11/25/18 20:00 98.4 88 18 152/69 (96) 100 11/25/18 16:00 98.3 79 20 143/69 (93) 96 11/25/18 15:34 78 11/25/18 12:00 97.3 76 20 107/55 (72) 98 11/25/18 11:46 73 Intake and Output 11/25/18 11/26/18 19:00 07:00 Intake Total 1375 ml Output Total 950 ml Balance 425 ml Intake Free Water 250 ml IV Total 825 ml Tube Feeding 300 ml Output Urine Total 950 ml General Appearance: WD/WN HEENT: normocephalic, atraumatic Respiratory/Chest: chest wall non-tender, lungs clear Cardiovascular: normal peripheral pulses, normal rate Abdomen: normal bowel sounds, soft, non tender Genitourinary: normal external genitalia Skin: no rash 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 Microbiology Date/Time Source Procedure Growth Status 11/24/18 16:10 Indwelling Cath Urine Culture - Preliminary NO GROWTH AFTER 24 HOURS Resulted 7/22/19 19:15 Rectum VRE Culture - Final Enterococcus Faecium - Vre Complete Current Medications Medications (Trade) Dose Ordered Sig/Nancy Route PRN Reason Start Time Stop Time Status Last Admin Dose Admin Acetaminophen (Tylenol) 650 mg Q4H PRN GT Mild Pain/Temp > 100.5 11/24/18 20:15 12/24/18 20:14 Amlodipine Besylate (Norvasc) 5 mg DAILY GT 11/25/18 09:00 12/25/18 08:59 11/25/18 08:49 Apixaban (Eliquis) 2.5 mg BID GT 11/25/18 09:00 12/25/18 08:59 11/25/18 17:48 Aspirin (ASA) 81 mg DAILY GT 11/25/18 09:00 12/25/18 08:59 11/25/18 08:49 Dextrose 1,000 ml @ 75 mls/hr [id number] IV 11/24/18 20:15 12/24/18 20:14 11/25/18 23:46 Dextrose (Dextrose 50%) 25 ml Q30M PRN IV Hypoglycemia 11/24/18 23:45 12/24/18 23:44 Dextrose (Dextrose 50%) 50 ml Q30M PRN IV Hypoglycemia 11/24/18 23:45 12/24/18 23:44 Epoetin Wallace (Epoetin Wallace-EPBX(NON ESRD)) 10,000 unit SAT-SAT-SAT SUBQ 11/26/18 21:00 12/26/18 20:59 Erythromycin (Erickson-Ped) 50 mg Q6HR GT 11/25/18 00:00 12/02/18 00:00 11/26/18 05:18 Hydralazine HCl (Apresoline) 25 mg Q4H PRN GT bp over 160 syst 11/24/18 20:15 12/24/18 20:14 Insulin Aspart (NovoLOG) Q6HR SUBQ 11/25/18 00:00 12/25/18 00:00 11/26/18 05:32 Insulin Detemir (Levemir) 20 units Q12HR SUBQ 11/25/18 21:00 12/24/18 20:59 11/26/18 08:41 Lansoprazole (Prevacid) 30 mg BID GT 11/25/18 18:00 12/25/18 08:59 11/25/18 17:49 Levetiracetam (Keppra) 1,000 mg Q12HR GT 11/24/18 21:00 12/24/18 20:59 11/25/18 20:52 Sucralfate (Carafate) 1 gm BID GT 11/25/18 09:00 12/25/18 08:59 11/25/18 17:48 Tramadol HCl (Ultram) 25 mg Q8H GT 11/24/18 20:15 12/01/18 20:14 11/26/18 05:18 Saira Lazcano MD Nov 26, 2018 10:44
--- NOTE | 2018-11-26 11:48 | NUR ---
NURSE NOTES: Unable to flush G-tube, unable to administer morning medication. Dr. Lazcano made aware GT clogged, Per Dr. Lazcano try pepcid, still unable to flush, consult with Dr. Arana. Order entered, noted, carried out.
[2018-11-26 12:00] VITALS: BP 135/56
--- NOTE | 2018-11-26 12:07 | NUR ---
CASE MANAGEMENT:REVIEW 11/26/18 SI: AC/CHR RENAL FAILURE DEHYDRATION. HYPERNATREMIA 98.6 73 18 140/56 100% ON RA IS: EPOETIN SQ MWF LEVEMIR SQ Q12 PREVACID GT BID NORVASC GT QD ELIQUIS GT BID CARAFATE GT BID ASA GT QD ERYTHROMYCIN GT Q6 IVF@75/HR : TELEMETRY STATUS DCP: FROM [facility]
--- NOTE | 2018-11-26 12:40 | NUR ---
NURSE NOTES: Dr. Orozco at the nursing station, made aware of clogged G-tube, per Dr. Orozco try soda, and call AISLINN MCGRATH if still clogged. Tried soda on G-tube, able to flush.
--- NOTE | 2018-11-26 15:34 | General Progress Note ---
Assessment/Plan Problem List: (1) Acute on chronic renal failure ICD Codes: N17.9 - Acute kidney failure, unspecified; N18.9 - Chronic kidney disease, unspecified SNOMED: 644225853 Qualifiers: Qualified Codes: N17.9 - Acute kidney failure, unspecified; N18.9 - Chronic kidney disease, unspecified (2) Gastroparesis due to DM ICD Codes: E11.43 - Type 2 diabetes mellitus with diabetic autonomic (poly) neuropathy; K31.84 - Gastroparesis SNOMED: 525058943 (3) G tube feedings ICD Codes: Z93.1 - G tube feedings SNOMED: 318775756 (4) Sacral decubitus ulcer, stage III ICD Codes: L89.153 - Pressure ulcer of sacral region, stage 3 SNOMED: 864912274, 019733123 (5) Diabetes ICD Codes: E11.9 - Type 2 diabetes mellitus without complications SNOMED: 65715489 (6) Seizure disorder ICD Codes: G40.909 - Epilepsy, unspecified, not intractable, without status epilepticus SNOMED: 758022203 Status: stable Status Narrative . Acute renal failure. . Underlying chronic renal failure. . Dehydration leading to hypernatremia. . Diabetes mellitus, out of control. . Other condition mentioned in the past history. Assessment/Plan: Hydrate- BP and BS control per orders CXR urine c/s Subjective ROS Limited/Unobtainable: No Constitutional: Reports: malaise, other - non verbal Allergies: Coded Allergies: METOCLOPRAMIDE (Verified Allergy, Unknown, 03/10/18) extrapyramidal Sx Objective Last 24 Hour Vital Signs Date Time Temp Pulse Resp B/P (MAP) Pulse Ox O2 Delivery O2 Flow Rate FiO2 11/26/18 12:00 74 11/26/18 12:00 98.6 78 22 135/56 (82) 97 11/26/18 09:00 Room Air 11/26/18 09:00 71 140/56 11/26/18 08:00 98.6 73 18 140/56 (84) 100 11/26/18 08:00 71 11/26/18 04:00 98.1 75 18 143/56 (85) 100 11/26/18 04:00 69 11/26/18 00:00 83 11/26/18 00:00 98.4 90 18 149/85 (106) 96 11/25/18 21:21 98.3 11/25/18 21:00 Room Air 11/25/18 20:00 81 11/25/18 20:00 98.4 88 18 152/69 (96) 100 11/25/18 16:00 98.3 79 20 143/69 (93) 96 11/25/18 15:34 78 Intake and Output 11/25/18 11/26/18 19:00 07:00 Intake Total 1375 ml Output Total 950 ml Balance 425 ml Intake Free Water 250 ml IV Total 825 ml Tube Feeding 300 ml Output Urine Total 950 ml Height (Feet): 5 Height (Inches): 4.00 Weight (Pounds): 164 General Appearance: no apparent distress, lethargic Cardiovascular: regular rhythm Respiratory/Chest: decreased breath sounds Abdomen: distended Estevan Orozco MD Nov 26, 2018 15:34
[2018-11-26 16:00] VITALS: BP 116/50
--- NOTE | 2018-11-26 17:44 | NUR ---
TRANSFER TO FLOOR: Patient transferred to 4E, per Dr. Lazcaon. Report given to LUIS Vance. Belongings and medications given to LUIS Vance. No personal belongings. Family and or S/O informed of transfer.
[2018-11-26] MEDS ORDERED: Acetaminophen 650mg/20.3ml GT PRN (17:54)
[2018-11-26] MEDS ORDERED: HydrALAZINE 25mg tab GT PRN (17:55)
[2018-11-26] MEDS ORDERED: Erythromycin Ethylsuccinate 200mg/5ml Susp GT SCH (18:00)
--- NOTE | 2018-11-26 18:00 | NUR ---
NURSE NOTES: [facility] Orozco with fair condition. alert. disoriented. non verbal. no respiratory distress noted on room air. no facial grimacing. GT site intact. no s/sx of infection. no residual. flushed water. running nephro 40/hr. f/c for retention. draining well. no hematuria noted. urine culture done and sent specimen to the lab.HOB at all times for aspiration prevention. skin assess done. sacral healed st 4. dressing intact and dry. rt foot DTI dressing intact and dry. elevate heels with pillow.. side rails padded for seizure precaution. bed in the lowest position and locked. call light within reach. alarm on. vs. BP141/54, HR77, O2 99% on room air, T98.1, RR 19
--- NOTE | 2018-11-26 19:28 | NUR ---
HAND-OFF: Report given to LUIS Grider.
[2018-11-26 20:00] VITALS: BP 110/59
--- NOTE | 2018-11-26 20:00 | NUR ---
NURSE NOTES: Received patient awake,non-verbal,tolerating her g-tube feeding well. Kept clean and dry.
[2018-11-26] MEDS ORDERED: Epoetin Alfa-EPBX (NON ESRD)10,000 unit/ml vial SUBQ SCH ×2 (21:00)
[2018-11-27] VITALS: BP 132/59
[2018-11-27] MEDS: Erythromycin Ethylsuccinate 200mg/5ml Susp GT SCH ×5 (00:19→23:51)
[2018-11-27] MEDS: NovoLOG Insulin Flexpen SUBQ SCH ×5 (00:19→23:52)
[2018-11-27 04:00] VITALS: BP 128/58
[2018-11-27] MEDS: traMADol 50mg tab GT SCH ×3 (05:40→21:11)
--- NOTE | 2018-11-27 07:32 | NUR ---
HAND-OFF: Report given to LUIS Padilla.
--- NOTE | 2018-11-27 07:48 | NUR ---
NURSE NOTES: Pt resting in bed. Denies pain, No SOB noted. pts on GTube feeding, tolerating well, no residual. Dressing CDI. Left AKA. bed alarm on, call light within reach. will continue to monitor.
[2018-11-27 08:00] VITALS: BP 139/71
[2018-11-27 08:21] LABS: BASOPHILS % (AUTO) 0.7 % (0.0-2.0); EOSINOPHILS % (AUTO) 1.5 % (0.0-3.0); HEMATOCRIT 25.6 % (37.0-47.0); HEMOGLOBIN 8.6 G/DL (12.0-16.0); LYMPHOCYTES % (AUTO) 39.2 % (20.0-45.0); MEAN CORPUSCULAR VOLUME 98 FL (80-99); MONOCYTES % (AUTO) 7.9 % (1.0-10.0); NEUTROPHILS % (AUTO) 50.7 % (45.0-75.0); PLATELET COUNT 170 K/UL (150-450); RED BLOOD COUNT 2.61 M/UL (4.20-5.40); RED CELL DISTRIBUTION WIDTH 15.5 % (11.6-14.8); WHITE BLOOD COUNT 6.6 K/UL (4.8-10.8)
[2018-11-27] MEDS: Eliquis 2.5mg tablet GT SCH ×2 (08:32→17:35)
[2018-11-27] MEDS: Sucralfate 1gm tab GT SCH ×2 (08:33→17:35)
[2018-11-27] MEDS: Aspirin Baby 81mg GT SCH (08:33)
[2018-11-27] MEDS: levETIRAcetam 500mg/5ml Liquid GT SCH ×2 (08:33→21:11)
[2018-11-27] MEDS: Levemir Flexpen SUBQ SCH ×2 (08:41→21:11)
[2018-11-27 08:48] LABS: ALANINE AMINOTRANSFERASE 8 U/L (12-78); ALBUMIN/GLOBULIN RATIO 0.6 (1.0-2.7); ALKALINE PHOSPHATASE 124 U/L (46-116); ANION GAP 11 mmol/L (5-15); ASPARTATE AMINO TRANSFERASE 8 U/L (15-37); BILIRUBIN,TOTAL 0.2 MG/DL (0.2-1.0); BLOOD UREA NITROGEN 57 mg/dL (7-18); CARBON DIOXIDE 25 MMOL/L (21-32); CHLORIDE 104 MMOL/L (98-107); CREATININE 2.1 MG/DL (0.55-1.30); POTASSIUM 3.6 MMOL/L (3.5-5.1); SODIUM 140 MMOL/L (136-145)
--- NOTE | 2018-11-27 09:24 | General Progress Note ---
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; K31.84 - Gastroparesis SNOMED: 367747323 (3) G tube feedings ICD Codes: Z93.1 - G tube feedings SNOMED: 941111136 (4) Sacral decubitus ulcer, stage III ICD Codes: L89.153 - Pressure ulcer of sacral region, stage 3 SNOMED: 059917765, 867334309 (5) Diabetes ICD Codes: E11.9 - Type 2 diabetes mellitus without complications SNOMED: 50142154 (6) Seizure disorder ICD Codes: G40.909 - Epilepsy, unspecified, not intractable, without status epilepticus SNOMED: 537093923 Status: stable Assessment/Plan: Hydrate- BP and BS control per orders CXR urine c/s now > 100 K Subjective ROS Limited/Unobtainable: No Allergies: Coded Allergies: METOCLOPRAMIDE (Verified Allergy, Unknown, 03/10/18) extrapyramidal Sx Objective Last 24 Hour Vital Signs Date Time Temp Pulse Resp B/P (MAP) Pulse Ox O2 Delivery O2 Flow Rate FiO2 11/27/18 08:32 85 139/71 11/27/18 08:00 98.5 85 18 139/71 (93) 97 11/27/18 04:00 97.3 81 18 128/58 (81) 97 11/27/18 00:00 97.7 82 18 132/59 (83) 97 11/26/18 21:23 Room Air 11/26/18 20:00 98.3 84 19 110/59 (76) 100 11/26/18 16:00 98.0 79 22 116/50 (72) 100 11/26/18 16:00 74 11/26/18 12:00 74 11/26/18 12:00 98.6 78 22 135/56 (82) 97 Intake and Output 11/26/18 11/27/18 19:00 07:00 Intake Total 90 ml 1200 ml Output Total 1200 ml Balance 90 ml 0 ml Intake Free Water 120 ml IV Total 50 ml 600 ml Tube Feeding 40 ml 480 ml Output Urine Total 1200 ml Laboratory Tests 11/27/18 08:00: White Blood Count 6.6, Red Blood Count 2.61L, Hemoglobin 8.6L, Hematocrit 25.6L , Mean Corpuscular Volume 98, Mean Corpuscular Hemoglobin 32.9H, Mean Corpuscular Hemoglobin Concent 33.5, Red Cell Distribution Width 15.5H, Platelet Count 170, Mean Platelet Volume 8.5, Neutrophils (%) (Auto) 50.7, Lymphocytes (%) (Auto) 39.2, Monocytes (%) (Auto) 7.9, Eosinophils (%) (Auto) 1.5, Basophils (%) (Auto) 0.7, Erythrocyte Sedimentation Rate [Pending], Sodium Level 140, Potassium Level 3.6, Chloride Level 104, Carbon Dioxide Level 25, Anion Gap 11, Blood Urea Nitrogen 57H, Creatinine 2.1H, Estimat Glomerular Filtration Rate , Glucose Level 222H, Calcium Level 9.0, Phosphorus Level 4.0, Magnesium Level 2.5H, Total Bilirubin 0.2, Aspartate Amino Transf (AST/SGOT) 8L , Alanine Aminotransferase (ALT/SGPT) 8L, Alkaline Phosphatase 124H, C-Reactive Protein, Quantitative 0.7, Pro-B-Type Natriuretic Peptide 416H, Total Protein 8.0, Albumin 3.0L, Globulin 5.0, Albumin/Globulin Ratio 0.6L Height (Feet): 5 Height (Inches): 4.00 Weight (Pounds): 158 General Appearance: no apparent distress Cardiovascular: normal rate Respiratory/Chest: decreased breath sounds Abdomen: distended Objective NO CHANGE Estevan Orozco MD Nov 27, 2018 09:24
--- NOTE | 2018-11-27 10:44 | GI Initial Consult Note ---
History of Present Illness General Date patient seen: Nov 27, 2018 Time patient seen: 10:40 Reason for Hospitalization: Abnormal Labs Referring physician: TREY FONTANEZ Reason for Consultation: GASTROPARESIS Present Illness HPI 83-year-old female presents ED for evaluation. Brought by EMS from nursing home facility. Reportedly recent lab work showed elevated BUN/creatinine. Patient nonverbal at baseline. Unable to provide any additional history at this time. No signs of distress upon arrival. No reported fevers or chills no reported nausea or vomiting. No other aggravating relieving factors. No other associated symptoms GI consulted for reported gastroparesis. ROS limited, patient is nonverbal history of organic brain injury. Unable to provide any history. Patient was seen, awake no apparent distress with no active signs or symptoms of nausea or vomiting. No reported constipation or diarrhea by the RN. G-tube assessed noted with retained moisture under the G-tube retention ring. No erythema, no rash, no leakage noted. Labs reviewed; hemoglobin 8.6, creatinine 2.1, alkaline phosphatase of 124, albumin level 3.0. Home Meds Active Scripts Lansoprazole* (LANSOPRAZOLE*) 30 Mg Capsule.dr, 30 MG GT BID for 60 Days, CAP Prov:Estevan Orozco MD 09/09/18 Hydralazine Hcl* (HYDRALAZINE HCL*) 25 Mg Tablet, 25 MG GT Q4H PRN for 90 Days, TAB Prov:Estevan Orozco MD 09/09/18 Erickson E-Succ/Sulfisoxazole (ERYTHROMYCIN-SULFISOX SUSP) 200 Mg/5 Ml Susp.recon, 50 MG GT Q6HR for 90 Days, ML Prov:Estevan Orozco MD 06/11/18 Levetiracetam (Keppra) 100 Mg/1 Ml Solution, 1000 MG GT Q12HR for 90 Days, #120 TAB Prov:Estevan Orozco MD 03/13/18 Reported Medications Amino Acids/Protein Hydrolys (PRO-STAT LIQUID) 30 Ml Liquid.pkt, 30 ML GT DAILY , ML 11/25/18 Nitroglycerin (NITRO-DUR) 1 Each Patch.td24, 0.4 MG TD DAILY, PATCH 11/25/18 Multivitamin Liquid* (MULTI-DELYN*) 237 Ml Liquid, 5 ML GT DAILY, ML 11/25/18 Zinc Sulfate (ZINC SULFATE*) 220 Mg Capsule, 220 MG GT DAILY, CAP 0 Refills 11/24/18 Ascorbic Acid* (VITAMIN C*) 500 Mg Tablet, 500 MG GT DAILY, #30 TAB 0 Refills 11/24/18 Acetaminophen* (TYLENOL EXTRA STRENGTH*) 500 Mg Tablet, 1000 MG GT DAILY for PAIN MANAGEMENT 06/07/18 Amlodipine Besylate (Norvasc) 10 Mg Tablet, 10 MG GT DAILY, TAB HOLD FOR SBP <110 OR HR <60 06/07/18 Apixaban (ELIQUIS) 2.5 Mg Tablet, 2.5 MG GT BID, TAB 06/07/18 Acetaminophen* (ACETAMINOPHEN 325MG TABLET*) 325 Mg Tablet, 650 MG GT Q4H PRN for Mild Pain/Temp > 100.5 01/06/18 Tramadol Hcl* (ULTRAM*) 50 Mg Tablet, 25 MG GT Q8HR PRN for Moderate Pain (Pain Scale 4-6) 09/20/17 Polyethylene Glycol 3350* (MIRALAX*) 17 Gm Powd.pack, 17 GM GT DAILY 05/16/17 Discontinued Reported Medications Multivitamin With Minerals (MULTIVITAMINS WITH MINERALS*) 1 Each Tablet, 1 TAB GT DAILY 06/07/18 Nateglinide (Starlix) 120 Mg Tablet, 120 MG GT DAILY 06/07/18 Diphenhydramine Hcl* (DIPHENHYDRAMINE HCL*) 25 Mg Capsule, 25 MG GT Q8H 06/07/18 Pantoprazole Sodium (PROTONIX) 20 Mg Tablet.dr, 40 MG GT DAILY, TAB 06/07/18 Aspirin* (ASPIR 81*) 81 Mg Tablet.dr, 81 MG GT DAILY, TAB 03/05/18 Cranberry Fruit (CRANBERRY) 450 Mg Tablet, 450 MG GT DAILY, TAB 09/20/17 Amlodipine Besylate (Norvasc) 2.5 Mg Tablet, MG GT, TAB 11/24/18 Discontinued Scripts Nitroglycerin (Nitroglycerin Patch) 1 Each Patch.td24, 1 PATCH TDERMAL Q24H for 90 Days, PATCH Prov:Estevan Orozco MD 09/09/18 Insulin Aspart (Novolog Flexpen) 100 Unit/1 Ml Insuln.pen, 0 UNITS SUBQ Q6HR for 90 Days, EA Prov:Estevan Orozco MD 09/09/18 Linezolid* (ZYVOX*) 600 Mg Tablet, 600 MG ORAL EVERY 12 HOURS for 7 Days, TAB Prov:Estevan Orozco MD 09/09/18 Cefdinir (CEFDINIR) 300 Mg Capsule, 300 MG ORAL Q12HR for 7 Days, CAP Prov:Estevan Orozco MD 09/09/18 Levofloxacin* (LEVAQUIN*) 500 Mg Tablet, 500 MG GT DAILY, #7 TAB Prov:Paulie Foreman MD 06/29/18 Mupirocin (Mupirocin) 22 Gm Oint...g., 1 APPLIC TOPIC THREE TIMES A DAY for 14 Days, GM Prov:Estevan Orozco MD 06/11/18 Sucralfate* (CARAFATE*) 1 Gm Tablet, 1 GM GT BID for 60 Days, TAB Prov:Estevan Orozco MD 06/11/18 Insulin Detemir (LEVEMIR FLEXPEN) 100 Unit/1 Ml Insuln.pen, 20 UNITS SUBQ BID for 30 Days, EA Prov:Estevan Orozco MD 01/15/18 Med list reviewed/reconciled: Yes Allergies: Coded Allergies: METOCLOPRAMIDE (Verified Allergy, Unknown, 03/10/18) extrapyramidal Sx Patient History Limited by: medical condition History Provided By: Medical Record PMH Narrative Past Medical History: DM, HTN, CVA/TIA, seizures, other - encephalopathy Pertinent Family History: none Social History: Denies: smoking, alcohol use, drug use Now: No Immunizations: UTD Reviewed Nursing Documentation: PMH: Agreed; PSxH: Agreed Nursing Documentation-PM Hx Cardiac Problems: No - Sepsis, DVT, LT BKA Hx Hypertension: Yes Hx Pacemaker: No Hx Asthma: No Hx COPD: Yes - PNA Hx Diabetes: Yes - DM2 Hx Cancer: No Hx Gastrointestinal Problems: Yes - G-tube Hx Dialysis: No 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 Hx Dementia: Yes Hx Seizures: Yes - Epilepsy Hx Epilepsy: Yes Hx Speech Problem: Yes - Non-verbal Hx Dysphasia: Yes - G-tube Social History: Denies: smoking, alcohol use, drug use, other Review of Systems All Other Systems: limited Physical Exam Vital Signs Date Time Temp Pulse Resp B/P (MAP) Pulse Ox O2 Delivery O2 Flow Rate FiO2 7/22/19 15:19 97.3 86 18 125/60 (81) 97 Room Air Sp02 EP Interpretation: reviewed Labs Laboratory Tests Test 11/27/18 08:00 White Blood Count 6.6 K/UL (4.8-10.8) Red Blood Count 2.61 M/UL (4.20-5.40) L Hemoglobin 8.6 G/DL (12.0-16.0) L Hematocrit 25.6 % (37.0-47.0) L Mean Corpuscular Volume 98 FL (80-99) Mean Corpuscular Hemoglobin 32.9 PG (27.0-31.0) H Mean Corpuscular Hemoglobin Concent 33.5 G/DL (32.0-36.0) Red Cell Distribution Width 15.5 % (11.6-14.8) H Platelet Count 170 K/UL (150-450) Mean Platelet Volume 8.5 FL (6.5-10.1) Neutrophils (%) (Auto) 50.7 % (45.0-75.0) Lymphocytes (%) (Auto) 39.2 % (20.0-45.0) Monocytes (%) (Auto) 7.9 % (1.0-10.0) Eosinophils (%) (Auto) 1.5 % (0.0-3.0) Basophils (%) (Auto) 0.7 % (0.0-2.0) Erythrocyte Sedimentation Rate 115 MM/HR (0-30) H Sodium Level 140 MMOL/L (136-145) Potassium Level 3.6 MMOL/L (3.5-5.1) Chloride Level 104 MMOL/L (98-107) Carbon Dioxide Level 25 MMOL/L (21-32) Anion Gap 11 mmol/L (5-15) Blood Urea Nitrogen 57 mg/dL (7-18) H Creatinine 2.1 MG/DL (0.55-1.30) H Estimat Glomerular Filtration Rate mL/min (>60) Glucose Level 222 MG/DL (74-106) H Calcium Level 9.0 MG/DL (8.5-10.1) Phosphorus Level 4.0 MG/DL (2.5-4.9) Magnesium Level 2.5 MG/DL (1.8-2.4) H Total Bilirubin 0.2 MG/DL (0.2-1.0) Aspartate Amino Transf (AST/SGOT) 8 U/L (15-37) L Alanine Aminotransferase (ALT/SGPT) 8 U/L (12-78) L Alkaline Phosphatase 124 U/L (46-116) H C-Reactive Protein, Quantitative 0.7 mg/dL (0.00-0.90) Pro-B-Type Natriuretic Peptide 416 pg/mL (0-125) H Total Protein 8.0 G/DL (6.4-8.2) Albumin 3.0 G/DL (3.4-5.0) L Globulin 5.0 g/dL Albumin/Globulin Ratio 0.6 (1.0-2.7) L General Appearance: no apparent distress Neck: supple Respiratory: no respiratory distress Cardiovascular: normal rate Gastrointestinal: soft, gt Skin: normal color, no rash Current Medications Current Medications Medications (Trade) Dose Ordered Sig/Nancy Route PRN Reason Start Time Stop Time Status Last Admin Dose Admin Acetaminophen (Tylenol) 650 mg Q4H PRN GT Mild Pain/Temp > 100.5 11/26/18 17:54 12/26/18 17:53 Amlodipine Besylate (Norvasc) 5 mg DAILY GT 11/27/18 09:00 12/25/18 08:59 11/27/18 08:32 Apixaban (Eliquis) 2.5 mg BID GT 11/27/18 09:00 12/27/18 08:59 11/27/18 08:32 Aspirin (ASA) 81 mg DAILY GT 11/27/18 09:00 12/25/18 08:59 11/27/18 08:33 Dextrose 1,000 ml @ 50 mls/hr Q20H IV 11/26/18 17:54 12/26/18 17:53 11/26/18 17:54 Dextrose (Dextrose 50%) 25 ml Q30M PRN IV Hypoglycemia 11/26/18 18:15 12/24/18 23:44 Dextrose (Dextrose 50%) 50 ml Q30M PRN IV Hypoglycemia 11/26/18 18:15 12/24/18 23:44 Epoetin Wallace (Epoetin Wallace-EPBX(NON ESRD)) 10,000 unit SAT-SAT-SAT SUBQ 11/26/18 21:00 12/26/18 20:59 7/24/19 21:39 Erythromycin (Erickson-Ped) 50 mg Q6HR GT 11/27/18 00:00 12/04/18 00:00 11/27/18 05:40 Hydralazine HCl (Apresoline) 25 mg Q4H PRN GT bp over 160 syst 11/26/18 17:55 12/26/18 17:54 Insulin Aspart (NovoLOG) Q6HR SUBQ 11/27/18 00:00 12/27/18 00:00 11/27/18 05:41 Insulin Detemir (Levemir) 20 units Q12HR SUBQ 11/26/18 21:00 12/24/18 20:59 11/27/18 08:41 Lansoprazole (Prevacid) 30 mg BID GT 11/27/18 09:00 12/27/18 08:59 11/27/18 08:33 Levetiracetam (Keppra) 1,000 mg Q12HR GT 11/26/18 21:00 12/24/18 20:59 11/27/18 08:33 Sucralfate (Carafate) 1 gm BID GT 11/27/18 09:00 12/27/18 08:59 11/27/18 08:33 Tramadol HCl (Ultram) 25 mg Q8HR GT 11/26/18 22:00 12/03/18 21:59 11/27/18 05:40 GI: Plan Problems: (1) Gastroparesis due to DM (2) Anemia in CKD (chronic kidney disease) (3) GI bleed (4) G tube feedings (5) Dementia Plan No plans for any GI procedures at this time Note that the patient is on Eliquis, must be discontinued for a minimum of 48 hours prior any procedures. Continue low-dose erythromycin for GI motility given allergy to Reglan Continue G-tube feedings at current rate, no reported residuals per RN G-tube site care daily and as needed Anemia work-up reviewed Monitor H&H, PRN transfusions OB stool r/o GI bleed bowel regimen ppi fu labs Discussed with Dr. Arana. Thank you for this patient referral, we will follow. The patient was seen and examined at bedside and all new and available data was reviewed in the patients chart. I agree with the above findings, impression and plan. (Patient seen earlier today. Signature stamp does not reflect patient encounter time.). - MD Kellen Meehan AnhIssac YOON Nov 27, 2018 10:44
--- NOTE | 2018-11-27 11:43 | Pulmonology Progress Note ---
Assessment/Plan Problems: (1) At high risk for aspiration (2) Acute on chronic renal failure (3) Anemia in CKD (chronic kidney disease) (4) Epileptic seizure, generalized (5) Functional quadriplegia (6) Right hemiparesis (7) G tube feedings (8) Diabetes (9) Dementia Assessment/Plan doing better check cultures check electrolytes daily iv abx med/surg, normal sinus rhythm dvt prophylaxis all reviewed Subjective ROS Limited/Unobtainable: No Constitutional: Reports: no symptoms HEENT: Repors: no symptoms Allergies: Coded Allergies: METOCLOPRAMIDE (Verified Allergy, Unknown, 03/10/18) extrapyramidal Sx Objective Last 24 Hour Vital Signs Date Time Temp Pulse Resp B/P (MAP) Pulse Ox O2 Delivery O2 Flow Rate FiO2 11/27/18 09:00 Room Air 11/27/18 08:32 85 139/71 11/27/18 08:00 98.5 85 18 139/71 (93) 97 11/27/18 04:00 97.3 81 18 128/58 (81) 97 11/27/18 00:00 97.7 82 18 132/59 (83) 97 11/26/18 21:23 Room Air 11/26/18 20:00 98.3 84 19 110/59 (76) 100 11/26/18 16:00 98.0 79 22 116/50 (72) 100 11/26/18 16:00 74 11/26/18 12:00 74 11/26/18 12:00 98.6 78 22 135/56 (82) 97 Intake and Output 11/26/18 11/27/18 19:00 07:00 Intake Total 90 ml 1200 ml Output Total 1200 ml Balance 90 ml 0 ml Intake Free Water 120 ml IV Total 50 ml 600 ml Tube Feeding 40 ml 480 ml Output Urine Total 1200 ml Objective General Appearance: WD/WN HEENT: normocephalic, atraumatic Respiratory/Chest: chest wall non-tender, lungs clear, normal breath sounds Breasts: no masses Cardiovascular: normal peripheral pulses, normal rate Abdomen: normal bowel sounds, soft, non tender, Gtube Microbiology Date/Time Source Procedure Growth Status 11/25/18 06:00 Nose MRSA Culture - Final NO METHICILLIN RESISTANT STAPH AUREUS... Complete 11/26/18 18:30 Indwelling Cath Urine Culture - Preliminary Gram Negative Bacillus 1 Resulted 7/22/19 16:10 Indwelling Cath Urine Culture - Final Mixed Gram Positive Organism Complete 11/24/18 19:15 Rectum VRE Culture - Final Enterococcus Faecium - Vre Complete Laboratory Tests 11/27/18 08:00: White Blood Count 6.6, Red Blood Count 2.61L, Hemoglobin 8.6L, Hematocrit 25.6L , Mean Corpuscular Volume 98, Mean Corpuscular Hemoglobin 32.9H, Mean Corpuscular Hemoglobin Concent 33.5, Red Cell Distribution Width 15.5H, Platelet Count 170, Mean Platelet Volume 8.5, Neutrophils (%) (Auto) 50.7, Lymphocytes (%) (Auto) 39.2, Monocytes (%) (Auto) 7.9, Eosinophils (%) (Auto) 1.5, Basophils (%) (Auto) 0.7, Erythrocyte Sedimentation Rate 115H, Sodium Level 140, Potassium Level 3.6, Chloride Level 104, Carbon Dioxide Level 25, Anion Gap 11, Blood Urea Nitrogen 57H, Creatinine 2.1H, Estimat Glomerular Filtration Rate , Glucose Level 222H, Calcium Level 9.0, Phosphorus Level 4.0, Magnesium Level 2.5H, Total Bilirubin 0.2, Aspartate Amino Transf (AST/SGOT) 8L , Alanine Aminotransferase (ALT/SGPT) 8L, Alkaline Phosphatase 124H, C-Reactive Protein, Quantitative 0.7, Pro-B-Type Natriuretic Peptide 416H, Total Protein 8.0, Albumin 3.0L, Globulin 5.0, Albumin/Globulin Ratio 0.6L Current Medications Medications (Trade) Dose Ordered Sig/Nancy Route PRN Reason Start Time Stop Time Status Last Admin Dose Admin Acetaminophen (Tylenol) 650 mg Q4H PRN GT Mild Pain/Temp > 100.5 11/26/18 17:54 12/26/18 17:53 Amlodipine Besylate (Norvasc) 5 mg DAILY GT 11/27/18 09:00 12/25/18 08:59 11/27/18 08:32 Apixaban (Eliquis) 2.5 mg BID GT 11/27/18 09:00 12/27/18 08:59 11/27/18 08:32 Aspirin (ASA) 81 mg DAILY GT 11/27/18 09:00 12/25/18 08:59 11/27/18 08:33 Dextrose 1,000 ml @ 50 mls/hr Q20H IV 11/26/18 17:54 12/26/18 17:53 11/26/18 17:54 Dextrose (Dextrose 50%) 25 ml Q30M PRN IV Hypoglycemia 11/26/18 18:15 12/24/18 23:44 Dextrose (Dextrose 50%) 50 ml Q30M PRN IV Hypoglycemia 11/26/18 18:15 12/24/18 23:44 Epoetin Wallace (Epoetin Wallace-EPBX(NON ESRD)) 10,000 unit SAT-SAT-SAT SUBQ 11/26/18 21:00 12/26/18 20:59 11/26/18 21:39 Erythromycin (Erickson-Ped) 50 mg Q6HR GT 11/27/18 00:00 12/04/18 00:00 11/27/18 05:40 Hydralazine HCl (Apresoline) 25 mg Q4H PRN GT bp over 160 syst 11/26/18 17:55 12/26/18 17:54 Insulin Aspart (NovoLOG) Q6HR SUBQ 11/27/18 00:00 12/27/18 00:00 11/27/18 05:41 Insulin Detemir (Levemir) 20 units Q12HR SUBQ 11/26/18 21:00 12/24/18 20:59 11/27/18 08:41 Lansoprazole (Prevacid) 30 mg BID GT 11/27/18 09:00 12/27/18 08:59 11/27/18 08:33 Levetiracetam (Keppra) 1,000 mg Q12HR GT 11/26/18 21:00 12/24/18 20:59 11/27/18 08:33 Sucralfate (Carafate) 1 gm BID GT 11/27/18 09:00 12/27/18 08:59 11/27/18 08:33 Tramadol HCl (Ultram) 25 mg Q8HR GT 11/26/18 22:00 12/03/18 21:59 11/27/18 05:40 Saira Lazcano MD Nov 27, 2018 11:43
[2018-11-27 12:00] VITALS: BP 159/79
--- NOTE | 2018-11-27 12:47 | Consultation ---
History of Present Illness General Date patient seen: Nov 27, 2018 Chief Complaint: Abnormal Labs Present Illness HPI This is a 83-year-old female well-known to me from prior surgery and hospital visits. Patient currently admitted for abnormal labs. On this admission she was identified to have skin concerns and surgery was consulted to evaluate and assist with care and management. Patient seen, patient Austen, chart reviewed. Patient has a historic stage IV sacral decubitus that is been healing. Allergies: Coded Allergies: METOCLOPRAMIDE (Verified Allergy, Unknown, 03/10/18) extrapyramidal Sx Medication History Scheduled Acetaminophen* (Tylenol Extra Strength*), 1,000 MG GT DAILY, (Reported) Amino Acids/Protein Hydrolys (Pro-Stat Liquid), 30 ML GT DAILY, (Reported) Amlodipine Besylate (Norvasc), 10 MG GT DAILY, (Reported) Apixaban (Eliquis), 2.5 MG GT BID, (Reported) Ascorbic Acid* (Vitamin C*), 500 MG GT DAILY, (Reported) Erickson E-Succ/Sulfisoxazole (Erythromycin-Sulfisox Susp), 50 MG GT Q6HR Lansoprazole* (Lansoprazole*), 30 MG GT BID Levetiracetam (Keppra), 1,000 MG GT Q12HR Multivitamin Liquid* (Multi-Delyn*), 5 ML GT DAILY, (Reported) Nitroglycerin (Nitro-Dur), 0.4 MG TD DAILY, (Reported) Polyethylene Glycol 3350* (Miralax*), 17 GM GT DAILY, (Reported) Zinc Sulfate (Zinc Sulfate*), 220 MG GT DAILY, (Reported) Scheduled PRN Acetaminophen* (Acetaminophen 325MG Tablet*), 650 MG GT Q4H PRN for Mild Pain/ Temp > 100.5, (Reported) Hydralazine Hcl* (Hydralazine Hcl*), 25 MG GT Q4H PRN Tramadol Hcl* (Ultram*), 25 MG GT Q8HR PRN for Moderate Pain (Pain Scale 4-6), ( Reported) Discontinued Medications Amlodipine Besylate (Norvasc), MG GT, (Reported) Discontinued Reason: Medication dose changed Aspirin* (Aspir 81*), 81 MG GT DAILY, (Reported) Discontinued Reason: Therapy completed Cefdinir (Cefdinir), 300 MG ORAL Q12HR Discontinued Reason: Therapy completed Cranberry Fruit (Cranberry), 450 MG GT DAILY, (Reported) Discontinued Reason: Therapy completed Diphenhydramine Hcl* (Diphenhydramine Hcl*), 25 MG GT Q8H, (Reported) Discontinued Reason: Therapy completed Insulin Aspart (Novolog Flexpen), 0 UNITS SUBQ Q6HR Discontinued Reason: Therapy completed Insulin Detemir (Levemir Flexpen), 20 UNITS SUBQ BID Discontinued Reason: Therapy completed Levofloxacin* (Levaquin*), 500 MG GT DAILY Discontinued Reason: Therapy completed Linezolid* (Zyvox*), 600 MG ORAL EVERY 12 HOURS Discontinued Reason: Therapy completed Multivitamin With Minerals (Multivitamins With Minerals*), 1 TAB GT DAILY, ( Reported) Discontinued Reason: Prescription changed Mupirocin (Mupirocin), 1 APPLIC TOPIC THREE TIMES A DAY Discontinued Reason: Therapy completed Nateglinide (Starlix), 120 MG GT DAILY, (Reported) Discontinued Reason: Therapy completed Nitroglycerin (Nitroglycerin Patch), 1 PATCH TDERMAL Q24H Discontinued Reason: Therapy completed Pantoprazole Sodium (Protonix), 40 MG GT DAILY, (Reported) Discontinued Reason: Therapy completed Sucralfate* (Carafate*), 1 GM GT BID Discontinued Reason: Therapy completed Patient History Limited by: medical condition History Provided By: Medical Record, PMD Healthcare decision maker N Resuscitation status Advanced Directive on File Past Medical/Surgical History Past Medical/Surgical History: (1) At high risk for aspiration (2) DVT (deep vein thrombosis) in (3) Sepsis (4) Osteomyelitis of ankle or foot, left, acute (5) Healthcare-associated pneumonia (6) Right hemiparesis (7) Aspiration pneumonia (8) Diabetes (9) Dementia (10) Seizure disorder (11) Functional quadriplegia (12) G tube feedings (13) Sacral decubitus ulcer, stage III (14) UTI (urinary tract infection) (15) GI bleed (16) Epileptic seizure, generalized (17) Anemia in CKD (chronic kidney disease) (18) Bacteremia (19) Gastroparesis due to DM (20) Acute on chronic renal failure Review of Systems ROS Narrative cannot obtain given medical condition Physical Exam General Appearance: no apparent distress Lines, tubes and drains: peripheral HEENT: mucous membranes moist Neck: normal inspection Respiratory/Chest: normal breath sounds, no respiratory distress, no accessory muscle use Cardiovascular/Chest: normal rate Abdomen: soft, no organomegaly, no mass Extremities: other Skin Exam: warm/dry Last 24 Hour Vital Signs Date Time Temp Pulse Resp B/P (MAP) Pulse Ox O2 Delivery O2 Flow Rate FiO2 11/27/18 12:00 98.8 90 18 159/79 (105) 97 11/27/18 09:00 Room Air 11/27/18 08:32 85 139/71 11/27/18 08:00 98.5 85 18 139/71 (93) 97 11/27/18 04:00 97.3 81 18 128/58 (81) 97 11/27/18 00:00 97.7 82 18 132/59 (83) 97 11/26/18 21:23 Room Air 11/26/18 20:00 98.3 84 19 110/59 (76) 100 11/26/18 16:00 98.0 79 22 116/50 (72) 100 11/26/18 16:00 74 Intake and Output 11/26/18 11/27/18 19:00 07:00 Intake Total 90 ml 1200 ml Output Total 1200 ml Balance 90 ml 0 ml Intake Free Water 120 ml IV Total 50 ml 600 ml Tube Feeding 40 ml 480 ml Output Urine Total 1200 ml Laboratory Tests Test 11/27/18 08:00 White Blood Count 6.6 K/UL (4.8-10.8) Red Blood Count 2.61 M/UL (4.20-5.40) L Hemoglobin 8.6 G/DL (12.0-16.0) L Hematocrit 25.6 % (37.0-47.0) L Mean Corpuscular Volume 98 FL (80-99) Mean Corpuscular Hemoglobin 32.9 PG (27.0-31.0) H Mean Corpuscular Hemoglobin Concent 33.5 G/DL (32.0-36.0) Red Cell Distribution Width 15.5 % (11.6-14.8) H Platelet Count 170 K/UL (150-450) Mean Platelet Volume 8.5 FL (6.5-10.1) Neutrophils (%) (Auto) 50.7 % (45.0-75.0) Lymphocytes (%) (Auto) 39.2 % (20.0-45.0) Monocytes (%) (Auto) 7.9 % (1.0-10.0) Eosinophils (%) (Auto) 1.5 % (0.0-3.0) Basophils (%) (Auto) 0.7 % (0.0-2.0) Erythrocyte Sedimentation Rate 115 MM/HR (0-30) H Sodium Level 140 MMOL/L (136-145) Potassium Level 3.6 MMOL/L (3.5-5.1) Chloride Level 104 MMOL/L (98-107) Carbon Dioxide Level 25 MMOL/L (21-32) Anion Gap 11 mmol/L (5-15) Blood Urea Nitrogen 57 mg/dL (7-18) H Creatinine 2.1 MG/DL (0.55-1.30) H Estimat Glomerular Filtration Rate mL/min (>60) Glucose Level 222 MG/DL (74-106) H Calcium Level 9.0 MG/DL (8.5-10.1) Phosphorus Level 4.0 MG/DL (2.5-4.9) Magnesium Level 2.5 MG/DL (1.8-2.4) H Total Bilirubin 0.2 MG/DL (0.2-1.0) Aspartate Amino Transf (AST/SGOT) 8 U/L (15-37) L Alanine Aminotransferase (ALT/SGPT) 8 U/L (12-78) L Alkaline Phosphatase 124 U/L (46-116) H C-Reactive Protein, Quantitative 0.7 mg/dL (0.00-0.90) Pro-B-Type Natriuretic Peptide 416 pg/mL (0-125) H Total Protein 8.0 G/DL (6.4-8.2) Albumin 3.0 G/DL (3.4-5.0) L Globulin 5.0 g/dL Albumin/Globulin Ratio 0.6 (1.0-2.7) L Microbiology Date/Time Source Procedure Growth Status 11/26/18 18:30 Indwelling Cath Urine Culture - Preliminary Gram Negative Bacillus 1 Resulted Height (Feet): 5 Height (Inches): 4.00 Weight (Pounds): 158 Medications Current Medications Medications (Trade) Dose Ordered Sig/Nancy Route PRN Reason Start Time Stop Time Status Last Admin Dose Admin Acetaminophen (Tylenol) 650 mg Q4H PRN GT Mild Pain/Temp > 100.5 11/26/18 17:54 12/26/18 17:53 Amlodipine Besylate (Norvasc) 5 mg DAILY GT 11/27/18 09:00 12/25/18 08:59 11/27/18 08:32 Apixaban (Eliquis) 2.5 mg BID GT 11/27/18 09:00 12/27/18 08:59 11/27/18 08:32 Aspirin (ASA) 81 mg DAILY GT 11/27/18 09:00 12/25/18 08:59 11/27/18 08:33 Dextrose 1,000 ml @ 50 mls/hr Q20H IV 11/26/18 17:54 12/26/18 17:53 11/26/18 17:54 Dextrose (Dextrose 50%) 25 ml Q30M PRN IV Hypoglycemia 11/26/18 18:15 12/24/18 23:44 Dextrose (Dextrose 50%) 50 ml Q30M PRN IV Hypoglycemia 11/26/18 18:15 12/24/18 23:44 Epoetin Wallace (Epoetin Wallace-EPBX(NON ESRD)) 10,000 unit SAT-SAT-SAT SUBQ 11/26/18 21:00 12/26/18 20:59 11/26/18 21:39 Erythromycin (Erickson-Ped) 50 mg Q6HR GT 11/27/18 00:00 12/04/18 00:00 11/27/18 12:21 Hydralazine HCl (Apresoline) 25 mg Q4H PRN GT bp over 160 syst 11/26/18 17:55 12/26/18 17:54 Insulin Aspart (NovoLOG) Q6HR SUBQ 11/27/18 00:00 12/27/18 00:00 11/27/18 12:11 Insulin Detemir (Levemir) 20 units Q12HR SUBQ 11/26/18 21:00 12/24/18 20:59 11/27/18 08:41 Lansoprazole (Prevacid) 30 mg BID GT 11/27/18 09:00 12/27/18 08:59 11/27/18 08:33 Levetiracetam (Keppra) 1,000 mg Q12HR GT 11/26/18 21:00 12/24/18 20:59 11/27/18 08:33 Sucralfate (Carafate) 1 gm BID GT 11/27/18 09:00 12/27/18 08:59 11/27/18 08:33 Tramadol HCl (Ultram) 25 mg Q8HR GT 11/26/18 22:00 12/03/18 21:59 11/27/18 05:40 Assessment/Plan Problem List: (1) Decubitus skin ulcer Assessment & Plan: Pt presented on admission with L AKA,Pressure injuries.Historical Stage four pressure injury sacrum. Hyperpigmentation noted with scattered shearing. Hyperpigmentation R ischium. Resolving unstageable pressure injury R heel. Wound is crescent shaped with stable dry eschar (L)7cm x (W)3cm.Hyperpigmentation and dry peeling skin periwound.Stable dry eschar noted to R hallux (L)2cm x (W)1.5cm. No other skin concerns noted. Need to be careful as she is high risk for sacral wound opening again Tx.Plan: Apply Cavilon To R hallux and R heel. Cover each site with Optifoam drsgs. Change every 7 days and prn. Apply Moisture Barrier Paste to Sacrum . Cover with Optifoam drsg. Change every 3 days and prn. Apply Moisture Barrier to Abdominal folds,Bilat groin and ischial areas with each incontinence care. APM/KALE mattress overlay. Reposition at least every 2hours or as tolerated. Off-load L heel with pillow. ICD Codes: L89.90 - Pressure ulcer of unspecified site, unspecified stage SNOMED: 844572899 (2) Osteomyelitis of ankle or foot, left, acute Assessment & Plan: wound looks great no signs of active infection healing well ICD Codes: M86.172 - Other acute osteomyelitis, left ankle and foot SNOMED: 787625151 Taco Carter Nov 27, 2018 12:47
--- NOTE | 2018-11-27 13:46 | Infectious Diseases Prog Note ---
Assessment/Plan Problems: (1) UTI (urinary tract infection) Assessment & Plan: with gram negative rods > 100 k colony , will start cefepime empirically pending final culture (2) Anemia in CKD (chronic kidney disease) Assessment & Plan: monitor H/H, transfuse as needed (3) Diabetes Assessment & Plan: recommend tight glycemic control to keep blood glucose between 100-140 (4) Acute on chronic renal failure Assessment & Plan: suspect dehydrations, continue IVF close monitor of renal function , avoid nephrotoxics Subjective Allergies: Coded Allergies: METOCLOPRAMIDE (Verified Allergy, Unknown, 03/10/18) extrapyramidal Sx Objective Vital Signs Last 24 Hour Vital Signs Date Time Temp Pulse Resp B/P (MAP) Pulse Ox O2 Delivery O2 Flow Rate FiO2 11/27/18 12:00 98.8 90 18 159/79 (105) 97 11/27/18 09:00 Room Air 11/27/18 08:32 85 139/71 11/27/18 08:00 98.5 85 18 139/71 (93) 97 11/27/18 04:00 97.3 81 18 128/58 (81) 97 11/27/18 00:00 97.7 82 18 132/59 (83) 97 11/26/18 21:23 Room Air 11/26/18 20:00 98.3 84 19 110/59 (76) 100 11/26/18 16:00 98.0 79 22 116/50 (72) 100 11/26/18 16:00 74 Height (Feet): 5 Height (Inches): 4.00 Weight (Pounds): 158 Microbiology Date/Time Source Procedure Growth Status 11/25/18 06:00 Nose MRSA Culture - Final NO METHICILLIN RESISTANT STAPH AUREUS... Complete 11/26/18 18:30 Indwelling Cath Urine Culture - Preliminary Gram Negative Bacillus 1 Resulted 11/24/18 16:10 Indwelling Cath Urine Culture - Final Mixed Gram Positive Organism Complete 11/24/18 19:15 Rectum VRE Culture - Final Enterococcus Faecium - Vre Complete Laboratory Tests Test 11/27/18 08:00 White Blood Count 6.6 K/UL (4.8-10.8) Red Blood Count 2.61 M/UL (4.20-5.40) L Hemoglobin 8.6 G/DL (12.0-16.0) L Hematocrit 25.6 % (37.0-47.0) L Mean Corpuscular Volume 98 FL (80-99) Mean Corpuscular Hemoglobin 32.9 PG (27.0-31.0) H Mean Corpuscular Hemoglobin Concent 33.5 G/DL (32.0-36.0) Red Cell Distribution Width 15.5 % (11.6-14.8) H Platelet Count 170 K/UL (150-450) Mean Platelet Volume 8.5 FL (6.5-10.1) Neutrophils (%) (Auto) 50.7 % (45.0-75.0) Lymphocytes (%) (Auto) 39.2 % (20.0-45.0) Monocytes (%) (Auto) 7.9 % (1.0-10.0) Eosinophils (%) (Auto) 1.5 % (0.0-3.0) Basophils (%) (Auto) 0.7 % (0.0-2.0) Erythrocyte Sedimentation Rate 115 MM/HR (0-30) H Sodium Level 140 MMOL/L (136-145) Potassium Level 3.6 MMOL/L (3.5-5.1) Chloride Level 104 MMOL/L (98-107) Carbon Dioxide Level 25 MMOL/L (21-32) Anion Gap 11 mmol/L (5-15) Blood Urea Nitrogen 57 mg/dL (7-18) H Creatinine 2.1 MG/DL (0.55-1.30) H Estimat Glomerular Filtration Rate mL/min (>60) Glucose Level 222 MG/DL (74-106) H Calcium Level 9.0 MG/DL (8.5-10.1) Phosphorus Level 4.0 MG/DL (2.5-4.9) Magnesium Level 2.5 MG/DL (1.8-2.4) H Total Bilirubin 0.2 MG/DL (0.2-1.0) Aspartate Amino Transf (AST/SGOT) 8 U/L (15-37) L Alanine Aminotransferase (ALT/SGPT) 8 U/L (12-78) L Alkaline Phosphatase 124 U/L (46-116) H C-Reactive Protein, Quantitative 0.7 mg/dL (0.00-0.90) Pro-B-Type Natriuretic Peptide 416 pg/mL (0-125) H Total Protein 8.0 G/DL (6.4-8.2) Albumin 3.0 G/DL (3.4-5.0) L Globulin 5.0 g/dL Albumin/Globulin Ratio 0.6 (1.0-2.7) L Current Medications Medications (Trade) Dose Ordered Sig/Nancy Route PRN Reason Start Time Stop Time Status Last Admin Dose Admin Acetaminophen (Tylenol) 650 mg Q4H PRN GT Mild Pain/Temp > 100.5 11/26/18 17:54 12/26/18 17:53 Amlodipine Besylate (Norvasc) 5 mg DAILY GT 11/27/18 09:00 12/25/18 08:59 11/27/18 08:32 Apixaban (Eliquis) 2.5 mg BID GT 11/27/18 09:00 12/27/18 08:59 11/27/18 08:32 Aspirin (ASA) 81 mg DAILY GT 11/27/18 09:00 12/25/18 08:59 11/27/18 08:33 Dextrose 1,000 ml @ 50 mls/hr Q20H IV 11/26/18 17:54 12/26/18 17:53 11/26/18 17:54 Dextrose (Dextrose 50%) 25 ml Q30M PRN IV Hypoglycemia 11/26/18 18:15 12/24/18 23:44 Dextrose (Dextrose 50%) 50 ml Q30M PRN IV Hypoglycemia 11/26/18 18:15 12/24/18 23:44 Epoetin Wallace (Epoetin Wallace-EPBX(NON ESRD)) 10,000 unit SAT-SAT-SAT SUBQ 11/26/18 21:00 12/26/18 20:59 11/26/18 21:39 Erythromycin (Erickson-Ped) 50 mg Q6HR GT 11/27/18 00:00 12/04/18 00:00 11/27/18 12:21 Hydralazine HCl (Apresoline) 25 mg Q4H PRN GT bp over 160 syst 11/26/18 17:55 12/26/18 17:54 Insulin Aspart (NovoLOG) Q6HR SUBQ 11/27/18 00:00 12/27/18 00:00 11/27/18 12:11 Insulin Detemir (Levemir) 20 units Q12HR SUBQ 11/26/18 21:00 12/24/18 20:59 11/27/18 08:41 Lansoprazole (Prevacid) 30 mg BID GT 11/27/18 09:00 12/27/18 08:59 11/27/18 08:33 Levetiracetam (Keppra) 1,000 mg Q12HR GT 11/26/18 21:00 12/24/18 20:59 11/27/18 08:33 Sucralfate (Carafate) 1 gm BID GT 11/27/18 09:00 12/27/18 08:59 11/27/18 08:33 Tramadol HCl (Ultram) 25 mg Q8HR GT 11/26/18 22:00 12/03/18 21:59 11/27/18 05:40 Ayala Forman M.D. Nov 27, 2018 13:46
[2018-11-27] MEDS: Cefepime HCl 1 GM in D5W 55 ML IVPB SCH ×2 (14:25→14:27)
--- NOTE | 2018-11-27 15:13 | NUR ---
SLEEPING CAR SERVICE ATTENDANTBANK MESSENGER SI:ACUTE ON CHRONIC RENAL FAILURE VS: BP 159/79, P 90, T 97.3, RR 18, SpO2 97 RBC 2.61, H&H 8.6/25.6, BUN 57, CR 2.1 IS:ULTRAM 25mg CEFEPIME 55ml IVPB D5 x1L IV NOVOLOG SUBQ LEVEMIR SUBQ PREVACID 30mg KEPPRA 1,000mg SUCRALFATE 1gm NORVASC 5mg PLAN: DVT PROPHYLAXIS IV ABX MED/SURG STATUS
[2018-11-27 16:00] VITALS: BP 136/77
--- NOTE | 2018-11-27 19:40 | NUR ---
NURSE NOTES: Received patient asleep, comfortable, tolerating her g-tube feeding well. Kept clean and dry.
[2018-11-27 20:00] VITALS: BP 122/52
--- NOTE | 2018-11-27 23:15 | Consultation ---
DATE OF CONSULTATION: 11/26/2018 INFECTIOUS DISEASES CONSULTATION CONSULTING PHYSICIAN: Ayala Forman M.D. REQUESTING PHYSICIAN: Estevan Orozco M.D. REASON FOR CONSULTATION: Urinary tract infection . Recommendation for antibiotics treatment. HISTORY OF PRESENT ILLNESS: The patient is an 83-year-old female, well known to me from previous admission, was sent to the emergency room at [facility] for worsening renal failure. The patient had recent laboratory workup that revealed elevated BUN and creatinine. The patient was unable to provide any history in the emergency room. Further workup in the ED showed normal vital signs with good saturation, but worsening renal failure and urinalysis showed evidence of infection. So, she was admitted to the hospital for hydration and antibiotics treatment and Infectious Disease consultation was requested for antibiotics therapy. Since her urine culture is growing more than 100,000 colony gram-negative rods. PAST MEDICAL HISTORY: Significant for, 1. Diabetes. 2. Hypertension. 3. CVA. 4. Seizure. 5. Encephalopathy. 6. Dementia. 7. Dysphagia. 8. Status post G-tube placement. 9. Left nxujm-rhf-qrhs amputation. 10. CHF. 11. COPD. 12. Pneumonia. PAST SURGICAL HISTORY: She had left jczih-ijd-veie amputation and G-tube placement. MEDICATIONS: She is on Norvasc, Eliquis, aspirin, Prevacid, Carafate, NovoLog, erythromycin, tramadol, and insulin. ALLERGIES: She is allergic to metoclopramide. FAMILY HISTORY: Unable to obtain. SOCIAL HISTORY: The patient lives with [facility]. No recent drugs, tobacco, or alcohol. REVIEW OF SYSTEMS: Unable to obtain. The patient is nonverbal. Poor historian. Could not provide any history. PHYSICAL EXAMINATION: VITAL SIGNS: Temperature is 98.8, pulse 90, respirations 18, blood pressure 159/79, and saturation 97% on room air. GENERAL: An elderly female, lying in bed, awake, nonverbal, and nonresponsive to verbal commands, not in acute distress. Open eyes spontaneously. HEENT: Normocephalic and atraumatic. Pupils are reactive to light. Moist oral mucosa. No exudate or thrush. NECK: Supple. No lymphadenopathy. CARDIOVASCULAR: Regular rate and rhythm. No murmur or gallop. LUNGS: Clear bilaterally. Diminished breathing sounds at the bases. ABDOMEN: Soft, nontender, and nondistended. No hepatosplenomegaly. No ascites. G-tube site looks okay. EXTREMITY: She has left xulni-tht-syda amputation. Surgical wound clean and dry and healed well. SKIN: She had sacral leg skin wound scarred completely with no sign or evidence of infection. Foot has dry skin with scales, but no open wounds at this point. LABORATORY DATA: Labs showed white count of 6.6, hemoglobin of 8.6, and platelet count of 170,000. BUN of 57 and creatinine of 2.1. AST of 8 and ALT of 8. Urinalysis showed +1 leukocyte esterase, few bacteria, and negative nitrite. MICROBIOLOGY: Urine culture on 11/26/2018 is growing more than 100,000 colony gram-negative rods and she is colonized with VRE. IMAGING: Chest x-ray showed no acute process. ASSESSMENT AND RECOMMENDATION: 1. Urinary tract infection with culture growing more than 100,000 colony gram-negative bacilli . We will start cefepime empirically pending final urine culture. We will deescalate antibiotics based on the final culture results. 2. Anemia of chronic disease due to her chronic kidney failure. Monitor H and H. Transfuse as needed. Use Epogen as needed. 3. Diabetes. Recommend tight glycemic control to keep blood glucose between 100 to 140. 4. Acute on chronic renal failure, suspect dehydration. Possible side effect of medication. Continue IV fluid with close monitor of renal function test. Avoid nephrotoxics. Renal is following. Thank you for the consult. ID will continue to follow. Ayala Forman M.D. DR: FRANSICO JOB#: [id number] CC: NIMCO
[2018-11-28 00:07] VITALS: BP 122/56
--- NOTE | 2018-11-28 01:23 | NUR ---
HAND-OFF: Report given to Rufus Fuentes LVN.
[2018-11-28 04:00] VITALS: BP 97/79
[2018-11-28] MEDS: NovoLOG Insulin Flexpen SUBQ SCH ×3 (06:25→18:05)
[2018-11-28 06:27] LABS: HEMATOCRIT 30.8 % (37.0-47.0); HEMOGLOBIN 10.3 G/DL (12.0-16.0); LYMPHOCYTES % (AUTO) 42.1 % (20.0-45.0); MEAN CORPUSCULAR VOLUME 98 FL (80-99); MONOCYTES % (AUTO) 9.2 % (1.0-10.0); NEUTROPHILS % (AUTO) 45.7 % (45.0-75.0); PLATELET COUNT 171 K/UL (150-450); RED BLOOD COUNT 3.13 M/UL (4.20-5.40); RED CELL DISTRIBUTION WIDTH 15.9 % (11.6-14.8); WHITE BLOOD COUNT 7.2 K/UL (4.8-10.8)
[2018-11-28] MEDS: traMADol 50mg tab GT SCH ×3 (06:29→21:23)
[2018-11-28] MEDS: Erythromycin Ethylsuccinate 200mg/5ml Susp GT SCH ×3 (06:29→17:50)
--- NOTE | 2018-11-28 06:32 | NUR ---
NURSE NOTES: MONITORED BLOOD GLUCOSE LEVEL VIA GLUCOMETER WITH RESULT 210MG/DL, ASYMPTOMATIC, ADM. 4 UNITS NOVOLOG INSULIN VIA SS, TOLERATED WELL, NO ADVERSE REACTION NOTED AFTER 15 MINUTES.
[2018-11-28 06:55] LABS: ANION GAP 11 mmol/L (5-15); BLOOD UREA NITROGEN 54 mg/dL (7-18); CALCIUM 9.4 MG/DL (8.5-10.1); CARBON DIOXIDE 25 MMOL/L (21-32); CHLORIDE 102 MMOL/L (98-107); CREATININE 2.1 MG/DL (0.55-1.30); PHOSPHORUS 4.2 MG/DL (2.5-4.9); POTASSIUM 4.1 MMOL/L (3.5-5.1); SODIUM 138 MMOL/L (136-145)
--- NOTE | 2018-11-28 07:30 | NUR ---
HAND-OFF: Report given to LUIS TARANGO.
[2018-11-28 08:00] VITALS: BP 123/64
[2018-11-28] MEDS: Aspirin Baby 81mg GT SCH (08:14)
[2018-11-28] MEDS: Eliquis 2.5mg tablet GT SCH ×2 (08:14→17:40)
[2018-11-28] MEDS: Sucralfate 1gm tab GT SCH ×2 (08:14→17:40)
[2018-11-28] MEDS: levETIRAcetam 500mg/5ml Liquid GT SCH ×2 (08:15→21:23)
[2018-11-28] MEDS: Levemir Flexpen SUBQ SCH ×2 (08:27→21:27)
--- NOTE | 2018-11-28 10:59 | GI Progress Note ---
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 Arana. Assessment/Plan No plans for any GI procedures at this time Note that the patient is on Eliquis, must be discontinued for a minimum of 48 hours prior any procedures. Continue low-dose erythromycin for GI motility given allergy to Reglan Continue G-tube feedings at current rate, no reported residuals per RN G-tube site care daily and as needed Anemia work-up reviewed Monitor H&H, PRN transfusions OB stool r/o GI bleed bowel regimen ppi fu labs The patient was seen and examined at bedside and all new and available data was reviewed in the patients chart. I agree with the above findings, impression and plan. (Patient seen earlier today. Signature stamp does not reflect patient encounter time.). - Jamaal Arana MD Subjective Subjective limited Objective Last 24 Hour Vital Signs Date Time Temp Pulse Resp B/P (MAP) Pulse Ox O2 Delivery O2 Flow Rate FiO2 11/28/18 09:00 Room Air 11/28/18 08:14 77 97/79 11/28/18 08:00 97.9 83 20 123/64 (83) 95 11/28/18 06:59 98.0 11/28/18 04:00 98.0 77 16 97/79 (85) 98 11/28/18 00:07 98.2 71 18 122/56 (78) 95 11/27/18 20:16 Room Air 11/27/18 20:00 99.1 93 16 122/52 (75) 96 11/27/18 16:00 99.2 83 18 136/77 (96) 96 11/27/18 12:00 98.8 90 18 159/79 (105) 97 Intake and Output 11/27/18 11/28/18 19:00 07:00 Intake Total 815 ml 1110 ml Output Total 800 ml 700 ml Balance 15 ml 410 ml Intake Free Water 60 ml 120 ml IV Total 675 ml 550 ml Tube Feeding 80 ml 440 ml Output Urine Total 800 ml 700 ml Laboratory Tests Test 11/28/18 05:40 White Blood Count 7.2 K/UL (4.8-10.8) Red Blood Count 3.13 M/UL (4.20-5.40) L Hemoglobin 10.3 G/DL (12.0-16.0) L Hematocrit 30.8 % (37.0-47.0) L Mean Corpuscular Volume 98 FL (80-99) Mean Corpuscular Hemoglobin 32.8 PG (27.0-31.0) H Mean Corpuscular Hemoglobin Concent 33.4 G/DL (32.0-36.0) Red Cell Distribution Width 15.9 % (11.6-14.8) H Platelet Count 171 K/UL (150-450) Mean Platelet Volume 9.5 FL (6.5-10.1) Neutrophils (%) (Auto) 45.7 % (45.0-75.0) Lymphocytes (%) (Auto) 42.1 % (20.0-45.0) Monocytes (%) (Auto) 9.2 % (1.0-10.0) Eosinophils (%) (Auto) 2.0 % (0.0-3.0) Basophils (%) (Auto) 1.0 % (0.0-2.0) Sodium Level 138 MMOL/L (136-145) Potassium Level 4.1 MMOL/L (3.5-5.1) Chloride Level 102 MMOL/L (98-107) Carbon Dioxide Level 25 MMOL/L (21-32) Anion Gap 11 mmol/L (5-15) Blood Urea Nitrogen 54 mg/dL (7-18) H Creatinine 2.1 MG/DL (0.55-1.30) H Estimat Glomerular Filtration Rate mL/min (>60) Glucose Level 176 MG/DL (74-106) H Calcium Level 9.4 MG/DL (8.5-10.1) Phosphorus Level 4.2 MG/DL (2.5-4.9) Magnesium Level 2.5 MG/DL (1.8-2.4) H Height (Feet): 5 Height (Inches): 4.00 Weight (Pounds): 160 Justus Foreman NP Nov 28, 2018 10:59
--- NOTE | 2018-11-28 11:34 | NUR ---
RD ASSESSMENT & RECOMMENDATIONS SEE CARE ACTIVITY FOR COMPLETE ASSESSMENT DAILY ESTIMATED NEEDS: Needs based on DM, wounds, TF MEDICARE CONTACT SPECIALIST, overweight (Adj wt 58kg) 25-30 kcals/kg 5698-2465 total kcals 1.25-1.5 g protein/kg 73-87 g total protein 25-30 mL/kg 4869-7245 total fluid mLs NUTRITION DIAGNOSIS: 1) Increased protein, micronutrient needs r/t wound healing as evidenced by multiple wounds, refer to WC eval. 2) Swallowing difficulty r/t dysphagia as evidenced by pt is PEG dep, on GT feeding. 3) Altered nutrition related lab values r/t clinical status as evidenced by low Hgb (10.3), elev Na (148 -> wnl), elev BUN and creat- now trending down, K normalized, elev POC BG (146-215), A1C 6.6. CURRENT TF:NEPRO @ 40ml/hr x 24 hrs ENTERAL NUTRITION RECOMMENDATIONS: NEPRO @ 40ml/hr x 24 hrs to provide 960ml, 1728kcal, 78g prot , 698ml free water - Maintain current TF- meets 100% est kcal/prot needs - HOB over 30 degrees/ water flush per MD. With continued improvement in renal fxn, rec TF change to Glucerna 1.5 for improved BG control. Rec Glucerna 1.5 @ goal rate of 45ml/hr x 24 hrs to provide 1080ml, 1620kcal, 89g prot, 819ml free water ADDITIONAL RECOMMENDATIONS: 1) Weekly calibrated bed scale wts 2) Wound healing: add Damian 1pkt BID via GT : add Vit C 500mg QD 3) Monitor lytes daily, replete as needed 4) Monitor Renal fxn and lytes, need for Nepro TF formula -> renal fxn improving w/ K now wnl
[2018-11-28 12:00] VITALS: BP 109/60
--- NOTE | 2018-11-28 12:23 | Nephrology Progress Note ---
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; K31.84 - Gastroparesis SNOMED: 928886226 (3) G tube feedings ICD Codes: Z93.1 - G tube feedings SNOMED: 146450523 (4) Sacral decubitus ulcer, stage III ICD Codes: L89.153 - Pressure ulcer of sacral region, stage 3 SNOMED: 550026573, 878103884 (5) Diabetes ICD Codes: E11.9 - Type 2 diabetes mellitus without complications SNOMED: 23961577 (6) Seizure disorder ICD Codes: G40.909 - Epilepsy, unspecified, not intractable, without status epilepticus SNOMED: 185544904 Status: stable Assessment/Plan: Hydrate- BP and BS control per orders CXR urine c/s now > 100 K PEr ID advise Subjective ROS Limited/Unobtainable: No Constitutional: Reports: malaise, weakness Allergies: Coded Allergies: METOCLOPRAMIDE (Verified Allergy, Unknown, 03/10/18) extrapyramidal Sx Objective Last 24 Hour Vital Signs Date Time Temp Pulse Resp B/P (MAP) Pulse Ox O2 Delivery O2 Flow Rate FiO2 11/28/18 09:00 Room Air 11/28/18 08:14 77 97/79 11/28/18 08:00 97.9 83 20 123/64 (83) 95 11/28/18 06:59 98.0 11/28/18 04:00 98.0 77 16 97/79 (85) 98 11/28/18 00:07 98.2 71 18 122/56 (78) 95 11/27/18 20:16 Room Air 11/27/18 20:00 99.1 93 16 122/52 (75) 96 11/27/18 16:00 99.2 83 18 136/77 (96) 96 Intake and Output 11/27/18 11/28/18 19:00 07:00 Intake Total 815 ml 1110 ml Output Total 800 ml 700 ml Balance 15 ml 410 ml Intake Free Water 60 ml 120 ml IV Total 675 ml 550 ml Tube Feeding 80 ml 440 ml Output Urine Total 800 ml 700 ml Laboratory Tests 11/28/18 05:40: White Blood Count 7.2, Red Blood Count 3.13L, Hemoglobin 10.3L, Hematocrit 30.8L , Mean Corpuscular Volume 98, Mean Corpuscular Hemoglobin 32.8H, Mean Corpuscular Hemoglobin Concent 33.4, Red Cell Distribution Width 15.9H, Platelet Count 171, Mean Platelet Volume 9.5, Neutrophils (%) (Auto) 45.7, Lymphocytes (%) (Auto) 42.1, Monocytes (%) (Auto) 9.2, Eosinophils (%) (Auto) 2.0, Basophils (%) (Auto) 1.0, Sodium Level 138, Potassium Level 4.1, Chloride Level 102, Carbon Dioxide Level 25, Anion Gap 11, Blood Urea Nitrogen 54H, Creatinine 2.1H, Estimat Glomerular Filtration Rate , Glucose Level 176H, Calcium Level 9.4, Phosphorus Level 4.2, Magnesium Level 2.5H Height (Feet): 5 Height (Inches): 4.00 Weight (Pounds): 160 General Appearance: no apparent distress Objective NO CHANGE Estevan Orozco MD Nov 28, 2018 12:23
--- NOTE | 2018-11-28 14:04 | NUR ---
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 97.4 HR 74 RR 20 B/P 109/60 RA 98% BUN 54 CR. 2.1 IS: CEFEPIME IV IVF D5@ 50ML/HR MED/SURG STATUS
--- NOTE | 2018-11-28 14:04 | Pulmonology Progress Note ---
Assessment/Plan Problems: (1) At high risk for aspiration (2) Acute on chronic renal failure (3) Anemia in CKD (chronic kidney disease) (4) Epileptic seizure, generalized (5) Functional quadriplegia (6) Right hemiparesis (7) G tube feedings (8) Diabetes (9) Dementia Assessment/Plan doing better check cultures check electrolytes daily iv abx med/surg, normal sinus rhythm dvt prophylaxis all reviewed Subjective ROS Limited/Unobtainable: No HEENT: Repors: no symptoms Allergies: Coded Allergies: METOCLOPRAMIDE (Verified Allergy, Unknown, 03/10/18) extrapyramidal Sx Objective Last 24 Hour Vital Signs Date Time Temp Pulse Resp B/P (MAP) Pulse Ox O2 Delivery O2 Flow Rate FiO2 11/28/18 12:00 97.4 74 20 109/60 (76) 94 11/28/18 09:00 Room Air 11/28/18 08:14 77 97/79 11/28/18 08:00 97.9 83 20 123/64 (83) 95 11/28/18 06:59 98.0 11/28/18 04:00 98.0 77 16 97/79 (85) 98 11/28/18 00:07 98.2 71 18 122/56 (78) 95 11/27/18 20:16 Room Air 11/27/18 20:00 99.1 93 16 122/52 (75) 96 11/27/18 16:00 99.2 83 18 136/77 (96) 96 Intake and Output 11/27/18 11/28/18 19:00 07:00 Intake Total 815 ml 1110 ml Output Total 800 ml 700 ml Balance 15 ml 410 ml Intake Free Water 60 ml 120 ml IV Total 675 ml 550 ml Tube Feeding 80 ml 440 ml Output Urine Total 800 ml 700 ml Objective General Appearance: WD/WN HEENT: normocephalic, atraumatic Respiratory/Chest: chest wall non-tender, lungs clear, normal breath sounds Breasts: no masses Cardiovascular: normal peripheral pulses, normal rate Abdomen: normal bowel sounds, soft, non tender, Gtube Microbiology Date/Time Source Procedure Growth Status 11/26/18 18:30 Indwelling Cath Urine Culture - Preliminary Providencia Stuartii Gram Negative Bacillus 2 Resulted Laboratory Tests 11/28/18 05:40: White Blood Count 7.2, Red Blood Count 3.13L, Hemoglobin 10.3L, Hematocrit 30.8L , Mean Corpuscular Volume 98, Mean Corpuscular Hemoglobin 32.8H, Mean Corpuscular Hemoglobin Concent 33.4, Red Cell Distribution Width 15.9H, Platelet Count 171, Mean Platelet Volume 9.5, Neutrophils (%) (Auto) 45.7, Lymphocytes (%) (Auto) 42.1, Monocytes (%) (Auto) 9.2, Eosinophils (%) (Auto) 2.0, Basophils (%) (Auto) 1.0, Sodium Level 138, Potassium Level 4.1, Chloride Level 102, Carbon Dioxide Level 25, Anion Gap 11, Blood Urea Nitrogen 54H, Creatinine 2.1H, Estimat Glomerular Filtration Rate , Glucose Level 176H, Calcium Level 9.4, Phosphorus Level 4.2, Magnesium Level 2.5H Current Medications Medications (Trade) Dose Ordered Sig/Nancy Route PRN Reason Start Time Stop Time Status Last Admin Dose Admin Acetaminophen (Tylenol) 650 mg Q4H PRN GT Mild Pain/Temp > 100.5 11/26/18 17:54 12/26/18 17:53 Amlodipine Besylate (Norvasc) 5 mg DAILY GT 11/27/18 09:00 12/25/18 08:59 11/28/18 08:14 Apixaban (Eliquis) 2.5 mg BID GT 11/27/18 09:00 12/27/18 08:59 11/28/18 08:14 Aspirin (ASA) 81 mg DAILY GT 11/27/18 09:00 12/25/18 08:59 11/28/18 08:14 Cefepime HCl 1 gm/ Dextrose 55 ml @ 110 mls/hr Q24H IVPB 11/27/18 15:00 12/04/18 14:59 11/27/18 14:27 Dextrose 1,000 ml @ 50 mls/hr Q20H IV 11/26/18 17:54 12/26/18 17:53 11/28/18 11:01 Dextrose (Dextrose 50%) 25 ml Q30M PRN IV Hypoglycemia 11/26/18 18:15 12/24/18 23:44 Dextrose (Dextrose 50%) 50 ml Q30M PRN IV Hypoglycemia 11/26/18 18:15 12/24/18 23:44 Epoetin Wallace (Epoetin Wallace-EPBX(NON ESRD)) 10,000 unit SAT-SAT-SAT SUBQ 11/26/18 21:00 12/26/18 20:59 11/26/18 21:39 Erythromycin (Erickson-Ped) 50 mg Q6HR GT 11/27/18 00:00 12/04/18 00:00 11/28/18 12:13 Hydralazine HCl (Apresoline) 25 mg Q4H PRN GT bp over 160 syst 11/26/18 17:55 12/26/18 17:54 Insulin Aspart (NovoLOG) Q6HR SUBQ 11/27/18 00:00 12/27/18 00:00 11/28/18 12:18 Insulin Detemir (Levemir) 20 units Q12HR SUBQ 11/26/18 21:00 12/24/18 20:59 11/28/18 08:27 Lansoprazole (Prevacid) 30 mg BID GT 11/27/18 09:00 12/27/18 08:59 11/28/18 08:14 Levetiracetam (Keppra) 1,000 mg Q12HR GT 11/26/18 21:00 12/24/18 20:59 11/28/18 08:15 Sucralfate (Carafate) 1 gm BID GT 11/27/18 09:00 12/27/18 08:59 11/28/18 08:14 Tramadol HCl (Ultram) 25 mg Q8HR GT 11/26/18 22:00 12/03/18 21:59 11/28/18 06:29 Saira Lazcano MD Nov 28, 2018 14:04
[2018-11-28] MEDS: Cefepime HCl 1 GM in D5W 55 ML IVPB SCH (14:05)
--- NOTE | 2018-11-28 14:48 | NUR ---
*-* DISCHARGE PLANNING *-* PATIENT HAS BEEN REFERRED TO; [facility] F:[phone]
--- NOTE | 2018-11-28 15:57 | Infectious Diseases Prog Note ---
Assessment/Plan Problems: (1) Catheter-associated urinary tract infection Assessment & Plan: with MDR Providencia stuartii , will switch cefepime to ertapenem and treat for 10 days total. will discontinue martinez catheter . may reinsert if retains urine (2) Anemia in CKD (chronic kidney disease) Assessment & Plan: monitor H/H, transfuse as needed (3) Diabetes Assessment & Plan: recommend tight glycemic control to keep blood glucose between 100-140 (4) Acute on chronic renal failure Assessment & Plan: suspect dehydrations, continue IVF close monitor of renal function , avoid nephrotoxics Subjective ROS Limited/Unobtainable: Yes Allergies: Coded Allergies: METOCLOPRAMIDE (Verified Allergy, Unknown, 03/10/18) extrapyramidal Sx Subjective she was resting in bed, comfortable, afebrile , urine looks clear Objective Vital Signs Last 24 Hour Vital Signs Date Time Temp Pulse Resp B/P (MAP) Pulse Ox O2 Delivery O2 Flow Rate FiO2 11/28/18 12:00 97.4 74 20 109/60 (76) 94 11/28/18 09:00 Room Air 11/28/18 08:14 77 97/79 11/28/18 08:00 97.9 83 20 123/64 (83) 95 11/28/18 06:59 98.0 11/28/18 04:00 98.0 77 16 97/79 (85) 98 11/28/18 00:07 98.2 71 18 122/56 (78) 95 11/27/18 20:16 Room Air 11/27/18 20:00 99.1 93 16 122/52 (75) 96 11/27/18 16:00 99.2 83 18 136/77 (96) 96 Height (Feet): 5 Height (Inches): 4.00 Weight (Pounds): 160 General Appearance: WD/WN, no acute distress HEENT: normocephalic, atraumatic, anicteric, mucous membranes moist Respiratory/Chest: chest wall non-tender, lungs clear, normal breath sounds, no respiratory distress, no accessory muscle use Cardiovascular: normal peripheral pulses, normal rate, regular rhythm, no gallop/murmur, no JVD Abdomen: normal bowel sounds, soft, non tender, no organomegaly, non distended , no mass, no scars Extremities: no cyanosis, no clubbing Skin: no rash, no lesions, ulcers Neurologic/Psychiatric: alert, unresponsiveness Lymphatic: no neck adenopathy, no groin adenopathy Musculoskeletal: normal muscle bulk, no effusion Microbiology Date/Time Source Procedure Growth Status 11/26/18 18:30 Indwelling Cath Urine Culture - Preliminary Providencia Stuartii Gram Negative Bacillus 2 Resulted Laboratory Tests Test 11/28/18 05:40 White Blood Count 7.2 K/UL (4.8-10.8) Red Blood Count 3.13 M/UL (4.20-5.40) L Hemoglobin 10.3 G/DL (12.0-16.0) L Hematocrit 30.8 % (37.0-47.0) L Mean Corpuscular Volume 98 FL (80-99) Mean Corpuscular Hemoglobin 32.8 PG (27.0-31.0) H Mean Corpuscular Hemoglobin Concent 33.4 G/DL (32.0-36.0) Red Cell Distribution Width 15.9 % (11.6-14.8) H Platelet Count 171 K/UL (150-450) Mean Platelet Volume 9.5 FL (6.5-10.1) Neutrophils (%) (Auto) 45.7 % (45.0-75.0) Lymphocytes (%) (Auto) 42.1 % (20.0-45.0) Monocytes (%) (Auto) 9.2 % (1.0-10.0) Eosinophils (%) (Auto) 2.0 % (0.0-3.0) Basophils (%) (Auto) 1.0 % (0.0-2.0) Sodium Level 138 MMOL/L (136-145) Potassium Level 4.1 MMOL/L (3.5-5.1) Chloride Level 102 MMOL/L (98-107) Carbon Dioxide Level 25 MMOL/L (21-32) Anion Gap 11 mmol/L (5-15) Blood Urea Nitrogen 54 mg/dL (7-18) H Creatinine 2.1 MG/DL (0.55-1.30) H Estimat Glomerular Filtration Rate mL/min (>60) Glucose Level 176 MG/DL (74-106) H Calcium Level 9.4 MG/DL (8.5-10.1) Phosphorus Level 4.2 MG/DL (2.5-4.9) Magnesium Level 2.5 MG/DL (1.8-2.4) H Current Medications Medications (Trade) Dose Ordered Sig/Nancy Route PRN Reason Start Time Stop Time Status Last Admin Dose Admin Acetaminophen (Tylenol) 650 mg Q4H PRN GT Mild Pain/Temp > 100.5 11/26/18 17:54 12/26/18 17:53 Amlodipine Besylate (Norvasc) 5 mg DAILY GT 11/27/18 09:00 12/25/18 08:59 11/28/18 08:14 Apixaban (Eliquis) 2.5 mg BID GT 11/27/18 09:00 12/27/18 08:59 11/28/18 08:14 Aspirin (ASA) 81 mg DAILY GT 11/27/18 09:00 12/25/18 08:59 11/28/18 08:14 Cefepime HCl 1 gm/ Dextrose 55 ml @ 110 mls/hr Q24H IVPB 11/27/18 15:00 12/04/18 14:59 11/28/18 14:05 Dextrose 1,000 ml @ 50 mls/hr Q20H IV 11/26/18 17:54 12/26/18 17:53 11/28/18 11:01 Dextrose (Dextrose 50%) 25 ml Q30M PRN IV Hypoglycemia 11/26/18 18:15 12/24/18 23:44 Dextrose (Dextrose 50%) 50 ml Q30M PRN IV Hypoglycemia 11/26/18 18:15 12/24/18 23:44 Epoetin Wallace (Epoetin Wallace-EPBX(NON ESRD)) 10,000 unit SAT-SAT-SAT SUBQ 11/26/18 21:00 12/26/18 20:59 11/26/18 21:39 Erythromycin (Erickson-Ped) 50 mg Q6HR GT 11/27/18 00:00 12/04/18 00:00 11/28/18 12:13 Hydralazine HCl (Apresoline) 25 mg Q4H PRN GT bp over 160 syst 11/26/18 17:55 12/26/18 17:54 Insulin Aspart (NovoLOG) Q6HR SUBQ 11/27/18 00:00 12/27/18 00:00 11/28/18 12:18 Insulin Detemir (Levemir) 20 units Q12HR SUBQ 11/26/18 21:00 12/24/18 20:59 11/28/18 08:27 Lansoprazole (Prevacid) 30 mg BID GT 11/27/18 09:00 12/27/18 08:59 11/28/18 08:14 Levetiracetam (Keppra) 1,000 mg Q12HR GT 11/26/18 21:00 12/24/18 20:59 11/28/18 08:15 Sucralfate (Carafate) 1 gm BID GT 11/27/18 09:00 12/27/18 08:59 11/28/18 08:14 Tramadol HCl (Ultram) 25 mg Q8HR GT 11/26/18 22:00 12/03/18 21:59 11/28/18 14:05 Ayala Forman M.D. Nov 28, 2018 15:57
[2018-11-28 16:00] VITALS: BP 122/56
[2018-11-28] MEDS ORDERED: Ertapenem 1 GM in NS 55 ML IV ONE (17:00)
--- NOTE | 2018-11-28 19:33 | NUR ---
HAND-OFF: Report given to Desire SMITH.
--- NOTE | 2018-11-28 19:35 | NUR ---
NURSE NOTES: Pt received in bed head of bed elevated, non verbal, gtube feeding running, IV intact and fluids running, no signs of distress and will continue to monitor.
[2018-11-28 20:00] VITALS: BP 131/53
[2018-11-29] VITALS: BP 131/59
[2018-11-29] MEDS: Erythromycin Ethylsuccinate 200mg/5ml Susp GT SCH ×5 (00:10→23:17)
[2018-11-29] MEDS: NovoLOG Insulin Flexpen SUBQ SCH ×5 (00:13→23:20)
[2018-11-29 04:00] VITALS: BP 130/60
[2018-11-29 05:47] LABS: BASOPHILS % (AUTO) 0.9 % (0.0-2.0); EOSINOPHILS % (AUTO) 1.5 % (0.0-3.0); HEMOGLOBIN 10.6 G/DL (12.0-16.0); LYMPHOCYTES % (AUTO) 33.8 % (20.0-45.0); MEAN CORPUSCULAR VOLUME 98 FL (80-99); MONOCYTES % (AUTO) 9.5 % (1.0-10.0); NEUTROPHILS % (AUTO) 54.3 % (45.0-75.0); PLATELET COUNT 174 K/UL (150-450); RED BLOOD COUNT 3.18 M/UL (4.20-5.40); RED CELL DISTRIBUTION WIDTH 15.5 % (11.6-14.8); WHITE BLOOD COUNT 7.3 K/UL (4.8-10.8)
[2018-11-29] MEDS: traMADol 50mg tab GT SCH ×3 (05:58→23:17)
[2018-11-29 06:24] LABS: BLOOD UREA NITROGEN 51 mg/dL (7-18); CALCIUM 9.4 MG/DL (8.5-10.1); CARBON DIOXIDE 26 MMOL/L (21-32); CREATININE 2.1 MG/DL (0.55-1.30)
[2018-11-29 06:44] LABS: CHLORIDE 100 MMOL/L (98-107); POTASSIUM 3.5 MMOL/L (3.5-5.1); SODIUM 136 MMOL/L (136-145)
--- NOTE | 2018-11-29 07:12 | NUR ---
HAND-OFF: Report given to LUIS Cope.
--- NOTE | 2018-11-29 07:29 | Pulmonology Progress Note ---
Assessment/Plan Problems: (1) At high risk for aspiration (2) Acute on chronic renal failure (3) Anemia in CKD (chronic kidney disease) (4) Epileptic seizure, generalized (5) Functional quadriplegia (6) Right hemiparesis (7) G tube feedings (8) Diabetes (9) Dementia Assessment/Plan no new events doing better check cultures, VRE rectum, MDR in urine check electrolytes daily iv abx med/surg, normal sinus rhythm dvt prophylaxis all reviewed Subjective ROS Limited/Unobtainable: Yes Allergies: Coded Allergies: METOCLOPRAMIDE (Verified Allergy, Unknown, 03/10/18) extrapyramidal Sx Objective Last 24 Hour Vital Signs Date Time Temp Pulse Resp B/P (MAP) Pulse Ox O2 Delivery O2 Flow Rate FiO2 11/29/18 04:00 98.2 79 18 130/60 (83) 96 11/29/18 00:00 98.6 84 20 131/59 (83) 97 11/28/18 21:00 Room Air 11/28/18 20:00 98.9 91 20 131/53 (79) 97 11/28/18 16:00 98.4 79 20 122/56 (78) 94 11/28/18 12:00 97.4 74 20 109/60 (76) 94 11/28/18 09:00 Room Air 11/28/18 08:14 77 97/79 11/28/18 08:00 97.9 83 20 123/64 (83) 95 Intake and Output 11/28/18 11/29/18 18:59 06:59 Intake Total 360 ml 880 ml Output Total 400 ml Balance -40 ml 880 ml IV Total 400 ml Tube Feeding 360 ml 480 ml Output Urine Total 400 ml Objective General Appearance: WD/WN HEENT: normocephalic, atraumatic Respiratory/Chest: chest wall non-tender, lungs clear, normal breath sounds Breasts: no masses Cardiovascular: normal peripheral pulses, normal rate Abdomen: normal bowel sounds, soft, non tender, Gtube Microbiology Date/Time Source Procedure Growth Status 11/26/18 18:30 Indwelling Cath Urine Culture - Final Providencia Stuartii Escherichia Coli - Esbl Complete Laboratory Tests 11/29/18 05:20: White Blood Count 7.3, Red Blood Count 3.18L, Hemoglobin 10.6L, Hematocrit 31.0L , Mean Corpuscular Volume 98, Mean Corpuscular Hemoglobin 33.4H, Mean Corpuscular Hemoglobin Concent 34.2, Red Cell Distribution Width 15.5H, Platelet Count 174, Mean Platelet Volume 9.1, Neutrophils (%) (Auto) 54.3, Lymphocytes (%) (Auto) 33.8, Monocytes (%) (Auto) 9.5, Eosinophils (%) (Auto) 1.5, Basophils (%) (Auto) 0.9, Sodium Level 136, Potassium Level 3.5, Chloride Level 100, Carbon Dioxide Level 26, Blood Urea Nitrogen 51H, Creatinine 2.1H, Estimat Glomerular Filtration Rate , Glucose Level 209H, Calcium Level 9.4 Current Medications Medications (Trade) Dose Ordered Sig/Nancy Route PRN Reason Start Time Stop Time Status Last Admin Dose Admin Acetaminophen (Tylenol) 650 mg Q4H PRN GT Mild Pain/Temp > 100.5 11/26/18 17:54 12/26/18 17:53 Amlodipine Besylate (Norvasc) 5 mg DAILY GT 11/27/18 09:00 12/25/18 08:59 11/28/18 08:14 Apixaban (Eliquis) 2.5 mg BID GT 11/27/18 09:00 12/27/18 08:59 11/28/18 17:40 Aspirin (ASA) 81 mg DAILY GT 11/27/18 09:00 12/25/18 08:59 11/28/18 08:14 Dextrose 1,000 ml @ 50 mls/hr Q20H IV 11/26/18 17:54 12/26/18 17:53 11/29/18 05:56 Dextrose (Dextrose 50%) 25 ml Q30M PRN IV Hypoglycemia 11/26/18 18:15 12/24/18 23:44 Dextrose (Dextrose 50%) 50 ml Q30M PRN IV Hypoglycemia 11/26/18 18:15 12/24/18 23:44 Epoetin Wallace (Epoetin Wallace-EPBX(NON ESRD)) 8,000 unit SAT-SAT-SAT SUBQ 12/01/18 21:00 12/31/18 20:59 Erythromycin (Erickson-Ped) 50 mg Q6HR GT 11/27/18 00:00 12/04/18 00:00 11/29/18 00:10 Hydralazine HCl (Apresoline) 25 mg Q4H PRN GT bp over 160 syst 11/26/18 17:55 12/26/18 17:54 Insulin Aspart (NovoLOG) Q6HR SUBQ 11/27/18 00:00 12/27/18 00:00 11/29/18 06:02 Insulin Detemir (Levemir) 20 units Q12HR SUBQ 11/26/18 21:00 12/24/18 20:59 11/28/18 21:27 Lansoprazole (Prevacid) 30 mg BID GT 11/27/18 09:00 12/27/18 08:59 11/28/18 17:52 Levetiracetam (Keppra) 1,000 mg Q12HR GT 11/26/18 21:00 12/24/18 20:59 11/28/18 21:23 Sucralfate (Carafate) 1 gm BID GT 11/27/18 09:00 12/27/18 08:59 11/28/18 17:40 Tramadol HCl (Ultram) 25 mg Q8HR GT 11/26/18 22:00 12/03/18 21:59 11/29/18 05:58 Saira Lazcano MD Nov 29, 2018 07:29
[2018-11-29 08:00] VITALS: BP 144/57
[2018-11-29] MEDS: Sucralfate 1gm tab GT SCH ×2 (09:17→17:42)
[2018-11-29] MEDS: Aspirin Baby 81mg GT SCH (09:18)
[2018-11-29] MEDS: Eliquis 2.5mg tablet GT SCH ×2 (09:19→17:42)
[2018-11-29] MEDS: levETIRAcetam 500mg/5ml Liquid GT SCH ×2 (09:19→23:17)
[2018-11-29] MEDS: Levemir Flexpen SUBQ SCH ×2 (09:43→23:19)
[2018-11-29 10:11] LABS: ALANINE AMINOTRANSFERASE 13 U/L (12-78); ALBUMIN 3.4 G/DL (3.4-5.0); ALKALINE PHOSPHATASE 154 U/L (46-116); ASPARTATE AMINO TRANSFERASE 17 U/L (15-37); BILIRUBIN,DIRECT < 0.1 MG/DL (0.0-0.3); BILIRUBIN,TOTAL 0.2 MG/DL (0.2-1.0); PHOSPHORUS 3.9 MG/DL (2.5-4.9)
--- NOTE | 2018-11-29 11:20 | General Progress Note ---
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; K31.84 - Gastroparesis SNOMED: 314358569 (3) G tube feedings ICD Codes: Z93.1 - G tube feedings SNOMED: 240963045 (4) Sacral decubitus ulcer, stage III ICD Codes: L89.153 - Pressure ulcer of sacral region, stage 3 SNOMED: 002871365, 787432756 (5) Diabetes ICD Codes: E11.9 - Type 2 diabetes mellitus without complications SNOMED: 09366581 (6) Seizure disorder ICD Codes: G40.909 - Epilepsy, unspecified, not intractable, without status epilepticus SNOMED: 921385395 Status: stable Assessment/Plan: Hydrate- BP and BS control per orders CXR urine c/s now > 100 K Per ID advise- Meropenem Subjective ROS Limited/Unobtainable: No Constitutional: Reports: other - non verbal Allergies: Coded Allergies: METOCLOPRAMIDE (Verified Allergy, Unknown, 03/10/18) extrapyramidal Sx Objective Last 24 Hour Vital Signs Date Time Temp Pulse Resp B/P (MAP) Pulse Ox O2 Delivery O2 Flow Rate FiO2 11/29/18 09:18 95 144/57 11/29/18 09:00 Room Air 11/29/18 08:00 97.5 95 20 144/57 (86) 98 11/29/18 04:00 98.2 79 18 130/60 (83) 96 11/29/18 00:00 98.6 84 20 131/59 (83) 97 11/28/18 21:00 Room Air 11/28/18 20:00 98.9 91 20 131/53 (79) 97 11/28/18 16:00 98.4 79 20 122/56 (78) 94 11/28/18 12:00 97.4 74 20 109/60 (76) 94 Intake and Output 11/28/18 11/29/18 18:59 06:59 Intake Total 360 ml 880 ml Output Total 400 ml Balance -40 ml 880 ml IV Total 400 ml Tube Feeding 360 ml 480 ml Output Urine Total 400 ml Laboratory Tests 11/29/18 05:20: White Blood Count 7.3, Red Blood Count 3.18L, Hemoglobin 10.6L, Hematocrit 31.0L , Mean Corpuscular Volume 98, Mean Corpuscular Hemoglobin 33.4H, Mean Corpuscular Hemoglobin Concent 34.2, Red Cell Distribution Width 15.5H, Platelet Count 174, Mean Platelet Volume 9.1, Neutrophils (%) (Auto) 54.3, Lymphocytes (%) (Auto) 33.8, Monocytes (%) (Auto) 9.5, Eosinophils (%) (Auto) 1.5, Basophils (%) (Auto) 0.9, Sodium Level 136, Potassium Level 3.5, Chloride Level 100, Carbon Dioxide Level 26, Blood Urea Nitrogen 51H, Creatinine 2.1H, Estimat Glomerular Filtration Rate , Glucose Level 209H, Calcium Level 9.4, Phosphorus Level 3.9, Magnesium Level 2.4, Total Bilirubin 0.2, Direct Bilirubin < 0.1, Aspartate Amino Transf (AST/SGOT) 17, Alanine Aminotransferase (ALT/SGPT) 13, Alkaline Phosphatase 154H, C-Reactive Protein, Quantitative 1.5H , Pro-B-Type Natriuretic Peptide 498H, Total Protein 8.4H, Albumin 3.4 Height (Feet): 5 Height (Inches): 4.00 Weight (Pounds): 160 General Appearance: no apparent distress Respiratory/Chest: decreased breath sounds Abdomen: soft Objective NO CHANGE Estevan Orozco MD Nov 29, 2018 11:20
[2018-11-29 12:00] VITALS: BP 124/71
--- NOTE | 2018-11-29 13:12 | NUR ---
NURSE NOTES: PT NOT ALERT, NON-VERBAL, AT BASELINE. PT WITH OBSERVED EMESIS AT BEDSIDE. RN OBTAINED ORDER FROM DR MONDRAGON FOR ZOFRAN 4MG IVP Q4H PRN NAUSEA/VOMITING. RN ADMINISTERED ORDERED. NO RESIDUAL NOTED IN GTUBE FEEDING. PER DR MONDRAGON, HOLD GTUBE FEEDING FOR A COUPLE HOURS AND RESUME. PT IN HIGH JONES'S POSITION WITH HOB ELEVATED. BEDSIDE RAILS X2 RAISED, BED IN LOWEST POSITION. BED ALARM ON. WILL CONTINUE TO MONITOR.
[2018-11-29 16:00] VITALS: BP 124/58
[2018-11-29] MEDS: Ertapenem 0.5gm in NS 55ml IVPB SCH (16:24)
--- NOTE | 2018-11-29 19:27 | NUR ---
HAND-OFF: Report given to Ben KELLY RN.
[2018-11-29 20:00] VITALS: BP 130/80
--- NOTE | 2018-11-29 21:05 | Infectious Diseases Prog Note ---
Assessment/Plan Problems: (1) Catheter-associated urinary tract infection Assessment & Plan: with ESBL producing E.coli and Providencia stuartii , continue ertapenem for 10 days total. keep off martinez catheter if possible . may reinsert if retains urine (2) Anemia in CKD (chronic kidney disease) Assessment & Plan: monitor H/H, transfuse as needed (3) Diabetes Assessment & Plan: recommend tight glycemic control to keep blood glucose between 100-140 (4) Acute on chronic renal failure Assessment & Plan: suspect dehydrations, continue IVF close monitor of renal function , avoid nephrotoxics Subjective ROS Limited/Unobtainable: Yes Allergies: Coded Allergies: METOCLOPRAMIDE (Verified Allergy, Unknown, 03/10/18) extrapyramidal Sx Subjective she was resting in bed, comfortable, afebrile , urine looks clear Objective Vital Signs Last 24 Hour Vital Signs Date Time Temp Pulse Resp B/P (MAP) Pulse Ox O2 Delivery O2 Flow Rate FiO2 11/29/18 16:00 99.0 89 19 124/58 (80) 98 11/29/18 12:00 97.2 74 24 124/71 (88) 97 11/29/18 09:18 95 144/57 11/29/18 09:00 Room Air 11/29/18 08:00 97.5 95 20 144/57 (86) 98 11/29/18 04:00 98.2 79 18 130/60 (83) 96 11/29/18 00:00 98.6 84 20 131/59 (83) 97 Height (Feet): 5 Height (Inches): 4.00 Weight (Pounds): 160 General Appearance: WD/WN, no acute distress HEENT: normocephalic, atraumatic, anicteric, mucous membranes moist, PERRL Respiratory/Chest: chest wall non-tender, lungs clear, normal breath sounds, no respiratory distress, no accessory muscle use Cardiovascular: normal peripheral pulses, normal rate, regular rhythm, no gallop/murmur, no JVD Abdomen: normal bowel sounds, soft, non tender, no organomegaly, non distended , no mass, no scars Genitourinary: normal external genitalia Extremities: no cyanosis, no clubbing Skin: no rash, no lesions, ulcers Neurologic/Psychiatric: solutions market consultant II-XII grossly normal, no motor/sensory deficits, alert, unresponsiveness Lymphatic: no neck adenopathy, no groin adenopathy Musculoskeletal: normal muscle bulk, no effusion Laboratory Tests Test 11/29/18 05:20 White Blood Count 7.3 K/UL (4.8-10.8) Red Blood Count 3.18 M/UL (4.20-5.40) L Hemoglobin 10.6 G/DL (12.0-16.0) L Hematocrit 31.0 % (37.0-47.0) L Mean Corpuscular Volume 98 FL (80-99) Mean Corpuscular Hemoglobin 33.4 PG (27.0-31.0) H Mean Corpuscular Hemoglobin Concent 34.2 G/DL (32.0-36.0) Red Cell Distribution Width 15.5 % (11.6-14.8) H Platelet Count 174 K/UL (150-450) Mean Platelet Volume 9.1 FL (6.5-10.1) Neutrophils (%) (Auto) 54.3 % (45.0-75.0) Lymphocytes (%) (Auto) 33.8 % (20.0-45.0) Monocytes (%) (Auto) 9.5 % (1.0-10.0) Eosinophils (%) (Auto) 1.5 % (0.0-3.0) Basophils (%) (Auto) 0.9 % (0.0-2.0) Sodium Level 136 MMOL/L (136-145) Potassium Level 3.5 MMOL/L (3.5-5.1) Chloride Level 100 MMOL/L (98-107) Carbon Dioxide Level 26 MMOL/L (21-32) Blood Urea Nitrogen 51 mg/dL (7-18) H Creatinine 2.1 MG/DL (0.55-1.30) H Estimat Glomerular Filtration Rate mL/min (>60) Glucose Level 209 MG/DL (74-106) H Calcium Level 9.4 MG/DL (8.5-10.1) Phosphorus Level 3.9 MG/DL (2.5-4.9) Magnesium Level 2.4 MG/DL (1.8-2.4) Total Bilirubin 0.2 MG/DL (0.2-1.0) Direct Bilirubin < 0.1 MG/DL (0.0-0.3) Aspartate Amino Transf (AST/SGOT) 17 U/L (15-37) Alanine Aminotransferase (ALT/SGPT) 13 U/L (12-78) Alkaline Phosphatase 154 U/L (46-116) H C-Reactive Protein, Quantitative 1.5 mg/dL (0.00-0.90) H Pro-B-Type Natriuretic Peptide 498 pg/mL (0-125) H Total Protein 8.4 G/DL (6.4-8.2) H Albumin 3.4 G/DL (3.4-5.0) Current Medications Medications (Trade) Dose Ordered Sig/Nancy Route PRN Reason Start Time Stop Time Status Last Admin Dose Admin Acetaminophen (Tylenol) 650 mg Q4H PRN GT Mild Pain/Temp > 100.5 11/26/18 17:54 12/26/18 17:53 Amlodipine Besylate (Norvasc) 5 mg DAILY GT 11/27/18 09:00 12/25/18 08:59 11/29/18 09:18 Apixaban (Eliquis) 2.5 mg BID GT 11/27/18 09:00 12/27/18 08:59 11/29/18 17:42 Aspirin (ASA) 81 mg DAILY GT 11/27/18 09:00 12/25/18 08:59 11/29/18 09:18 Dextrose 1,000 ml @ 50 mls/hr Q20H IV 11/26/18 17:54 12/26/18 17:53 11/29/18 16:24 Dextrose (Dextrose 50%) 25 ml Q30M PRN IV Hypoglycemia 11/26/18 18:15 12/24/18 23:44 Dextrose (Dextrose 50%) 50 ml Q30M PRN IV Hypoglycemia 11/26/18 18:15 12/24/18 23:44 Epoetin Wallace (Epoetin Wallace-EPBX(NON ESRD)) 8,000 unit SAT-SAT-SAT SUBQ 12/01/18 21:00 12/31/18 20:59 Ertapenem 0.5 gm/ Sodium Chloride 55 ml @ 110 mls/hr Q24H IVPB 11/29/18 17:00 12/07/18 17:29 11/29/18 16:24 Erythromycin (Erickson-Ped) 50 mg Q6HR GT 11/27/18 00:00 8/1/19 00:00 11/29/18 17:41 Hydralazine HCl (Apresoline) 25 mg Q4H PRN GT bp over 160 syst 11/26/18 17:55 12/26/18 17:54 Insulin Aspart (NovoLOG) Q6HR SUBQ 11/27/18 00:00 12/27/18 00:00 11/29/18 17:46 Insulin Detemir (Levemir) 20 units Q12HR SUBQ 11/26/18 21:00 12/24/18 20:59 11/29/18 09:43 Lansoprazole (Prevacid) 30 mg BID GT 11/27/18 09:00 12/27/18 08:59 11/29/18 17:42 Levetiracetam (Keppra) 1,000 mg Q12HR GT 11/26/18 21:00 12/24/18 20:59 11/29/18 09:19 Ondansetron HCl (Zofran) 4 mg Q4H PRN IVP Nausea & Vomiting 11/29/18 12:45 12/29/18 12:44 11/29/18 12:57 Sucralfate (Carafate) 1 gm BID GT 11/27/18 09:00 12/27/18 08:59 11/29/18 17:42 Tramadol HCl (Ultram) 25 mg Q8HR GT 11/26/18 22:00 12/03/18 21:59 11/29/18 14:31 Ayala Forman M.D. Nov 29, 2018 21:05
--- NOTE | 2018-11-29 23:00 | NUR ---
NURSE NOTES: Pt is in bed, obtunded. No acute distress noted. Pt moves tongue and makes sounds. Room air. Pt has oral secretions, needs frequent suctioning. HOB elevated. G-tube is patent and in place, no residual, G-tube flushed with 100ml water. Nepro running at 40ml/hr via g-tube. Aspiration precaution in place. Pt will be turned at least q2hrs. Bed locked low in position,side rails up and padded. call light within reach. Pt will be monitored.
[2018-11-30] VITALS: BP 116/77
--- NOTE | 2018-11-30 01:32 | NUR ---
NURSE NOTES: Pt is in bed, asleep. No acute distress noted. Vitals stable.
[2018-11-30 04:00] VITALS: BP 102/55
--- NOTE | 2018-11-30 05:15 | NUR ---
NURSE NOTES: Pt is cleaned and dressing change done. Pictures uploaded.
[2018-11-30] MEDS: Erythromycin Ethylsuccinate 200mg/5ml Susp GT SCH ×4 (07:06→21:05)
[2018-11-30] MEDS: traMADol 50mg tab GT SCH ×3 (07:07→21:05)
[2018-11-30] MEDS: NovoLOG Insulin Flexpen SUBQ SCH ×3 (07:08→17:53)
--- NOTE | 2018-11-30 07:20 | NUR ---
HAND-OFF: Report given to Anatoliy Damon RN.
--- NOTE | 2018-11-30 07:23 | NUR ---
NURSE NOTES: PT RESTING IN BED. IN NO APPARENT DISTRESS AT THIS TIME. PT IN HIGH JONES'S POSITION WITH HOB ELEVATED. SUCTION A BEDSIDE. BEDSIDE RAILS PADDED FOR ASPIRATION PRECAUTIONS. GTF NEPRO RUNNING AT 40CC/H. BED ALARM ON. WILL CONTINUE TO MONITOR.
--- NOTE | 2018-11-30 07:38 | Pulmonology Progress Note ---
Assessment/Plan Problems: (1) At high risk for aspiration (2) Acute on chronic renal failure (3) Anemia in CKD (chronic kidney disease) (4) Epileptic seizure, generalized (5) Functional quadriplegia (6) Right hemiparesis (7) G tube feedings (8) Diabetes (9) Dementia Assessment/Plan no new events doing better check cultures, VRE rectum, MDR in urine check electrolytes daily iv abx med/surg, normal sinus rhythm dvt prophylaxis all reviewed Subjective ROS Limited/Unobtainable: No Constitutional: Reports: no symptoms HEENT: Repors: no symptoms Allergies: Coded Allergies: METOCLOPRAMIDE (Verified Allergy, Unknown, 03/10/18) extrapyramidal Sx Objective Last 24 Hour Vital Signs Date Time Temp Pulse Resp B/P (MAP) Pulse Ox O2 Delivery O2 Flow Rate FiO2 11/30/18 04:00 99.1 79 17 102/55 (71) 96 11/30/18 00:00 99.3 91 17 116/77 (90) 97 11/29/18 23:50 99.3 11/29/18 23:47 99.3 11/29/18 21:00 Room Air 11/29/18 20:00 101.6 88 16 130/80 (97) 94 11/29/18 16:00 99.0 89 19 124/58 (80) 98 11/29/18 12:00 97.2 74 24 124/71 (88) 97 11/29/18 09:18 95 144/57 11/29/18 09:00 Room Air 11/29/18 08:00 97.5 95 20 144/57 (86) 98 Intake and Output 11/29/18 11/30/18 19:00 07:00 Intake Total 1105 ml 600 ml Balance 1105 ml 600 ml Intake Free Water 240 ml 100 ml IV Total 505 ml 300 ml Tube Feeding 360 ml 200 ml # Voids 3 3 Objective General Appearance: WD/WN HEENT: normocephalic, atraumatic Respiratory/Chest: chest wall non-tender, lungs clear, normal breath sounds Breasts: no masses Cardiovascular: normal peripheral pulses, normal rate Abdomen: normal bowel sounds, soft, non tender, Gtube Current Medications Medications (Trade) Dose Ordered Sig/Nancy Route PRN Reason Start Time Stop Time Status Last Admin Dose Admin Acetaminophen (Tylenol) 650 mg Q4H PRN GT Mild Pain/Temp > 100.5 11/26/18 17:54 12/26/18 17:53 11/29/18 23:20 Amlodipine Besylate (Norvasc) 5 mg DAILY GT 11/27/18 09:00 12/25/18 08:59 11/29/18 09:18 Apixaban (Eliquis) 2.5 mg BID GT 11/27/18 09:00 12/27/18 08:59 11/29/18 17:42 Aspirin (ASA) 81 mg DAILY GT 11/27/18 09:00 12/25/18 08:59 11/29/18 09:18 Dextrose 1,000 ml @ 50 mls/hr Q20H IV 11/26/18 17:54 12/26/18 17:53 11/29/18 16:24 Dextrose (Dextrose 50%) 25 ml Q30M PRN IV Hypoglycemia 11/26/18 18:15 12/24/18 23:44 Dextrose (Dextrose 50%) 50 ml Q30M PRN IV Hypoglycemia 11/26/18 18:15 12/24/18 23:44 Epoetin Wallace (Epoetin Wallace-EPBX(NON ESRD)) 8,000 unit SAT-SAT-SAT SUBQ 12/01/18 21:00 12/31/18 20:59 Ertapenem 0.5 gm/ Sodium Chloride 55 ml @ 110 mls/hr Q24H IVPB 11/29/18 17:00 12/07/18 17:29 11/29/18 16:24 Erythromycin (Erickson-Ped) 50 mg Q6HR GT 11/27/18 00:00 12/04/18 00:00 11/30/18 07:06 Hydralazine HCl (Apresoline) 25 mg Q4H PRN GT bp over 160 syst 11/26/18 17:55 12/26/18 17:54 Insulin Aspart (NovoLOG) Q6HR SUBQ 11/27/18 00:00 12/27/18 00:00 11/30/18 07:08 Insulin Detemir (Levemir) 20 units Q12HR SUBQ 11/26/18 21:00 12/24/18 20:59 11/29/18 23:19 Lansoprazole (Prevacid) 30 mg BID GT 11/27/18 09:00 12/27/18 08:59 11/29/18 17:42 Levetiracetam (Keppra) 1,000 mg Q12HR GT 11/26/18 21:00 12/24/18 20:59 11/29/18 23:17 Ondansetron HCl (Zofran) 4 mg Q4H PRN IVP Nausea & Vomiting 11/29/18 12:45 12/29/18 12:44 11/29/18 12:57 Sucralfate (Carafate) 1 gm BID GT 11/27/18 09:00 12/27/18 08:59 11/29/18 17:42 Tramadol HCl (Ultram) 25 mg Q8HR GT 11/26/18 22:00 12/03/18 21:59 11/30/18 07:07 Saira Lazcano MD Nov 30, 2018 07:38
[2018-11-30 08:00] VITALS: BP 145/50
[2018-11-30] MEDS: Aspirin Baby 81mg GT SCH (08:22)
[2018-11-30] MEDS: Sucralfate 1gm tab GT SCH ×2 (08:23→17:41)
[2018-11-30] MEDS: levETIRAcetam 500mg/5ml Liquid GT SCH ×2 (08:23→21:06)
[2018-11-30] MEDS: Eliquis 2.5mg tablet GT SCH ×2 (08:23→17:41)
[2018-11-30] MEDS: Levemir Flexpen SUBQ SCH ×2 (09:03→21:07)
[2018-11-30 11:47] VITALS: BP 109/50
--- NOTE | 2018-11-30 13:25 | Surgery Progress Note ---
Surgery Progress Note Subjective Additional Comments Patient seen and examined at bedside. No acute events. Resting comfortably. Labs noted. Exam unchanged. On air mattress. Being turned by the nurses were providing great care Objective Last 24 Hour Vital Signs Date Time Temp Pulse Resp B/P (MAP) Pulse Ox O2 Delivery O2 Flow Rate FiO2 11/30/18 11:47 97.4 76 18 109/50 (69) 98 11/30/18 09:00 Room Air 11/30/18 08:23 82 145/50 11/30/18 08:00 97.4 82 18 145/50 (81) 98 11/30/18 04:00 99.1 79 17 102/55 (71) 96 11/30/18 00:00 99.3 91 17 116/77 (90) 97 11/29/18 23:50 99.3 11/29/18 23:47 99.3 11/29/18 21:00 Room Air 11/29/18 20:00 101.6 88 16 130/80 (97) 94 11/29/18 16:00 99.0 89 19 124/58 (80) 98 I&O Intake and Output 11/29/18 11/30/18 18:59 06:59 Intake Total 1155 ml 1280 ml Balance 1155 ml 1280 ml Intake Free Water 240 ml 200 ml IV Total 555 ml 600 ml Tube Feeding 360 ml 480 ml # Voids 6 Dressing: dry Wound: clean Cardiovascular: RSR Respiratory: clear Abdomen: soft, present bowel sounds, non-distended Extremities: no cyanosis Plan Problems: (1) Decubitus skin ulcer Assessment & Plan: Pt presented on admission with L AKA,Pressure injuries.Historical Stage four pressure injury sacrum. Hyperpigmentation noted with scattered shearing. Hyperpigmentation R ischium. Resolving unstageable pressure injury R heel. Wound is crescent shaped with stable dry eschar (L)7cm x (W)3cm.Hyperpigmentation and dry peeling skin periwound.Stable dry eschar noted to R hallux (L)2cm x (W)1.5cm. No other skin concerns noted. Need to be careful as she is high risk for sacral wound opening again Tx.Plan: Apply Cavilon To R hallux and R heel. Cover each site with Optifoam drsgs. Change every 7 days and prn. Apply Moisture Barrier Paste to Sacrum . Cover with Optifoam drsg. Change every 3 days and prn. Apply Moisture Barrier to Abdominal folds,Bilat groin and ischial areas with each incontinence care. APM/KALE mattress overlay. Reposition at least every 2hours or as tolerated. Off-load L heel with pillow. (2) Osteomyelitis of ankle or foot, left, acute Assessment & Plan: wound looks great no signs of active infection healing well Taco Carter Nov 30, 2018 13:25
--- NOTE | 2018-11-30 14:39 | General Progress Note ---
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; K31.84 - Gastroparesis SNOMED: 448228012 (3) G tube feedings ICD Codes: Z93.1 - G tube feedings SNOMED: 282625516 (4) Sacral decubitus ulcer, stage III ICD Codes: L89.153 - Pressure ulcer of sacral region, stage 3 SNOMED: 226454183, 499067292 (5) Diabetes ICD Codes: E11.9 - Type 2 diabetes mellitus without complications SNOMED: 33215901 (6) Seizure disorder ICD Codes: G40.909 - Epilepsy, unspecified, not intractable, without status epilepticus SNOMED: 534495548 Status: stable Assessment/Plan: Aim to DC in am with IM Ivanz Hydrate- BP and BS control per orders CXR urine c/s now > 100 K Per ID advise- Meropenem Subjective ROS Limited/Unobtainable: No Constitutional: Reports: malaise Allergies: Coded Allergies: METOCLOPRAMIDE (Verified Allergy, Unknown, 03/10/18) extrapyramidal Sx Objective Last 24 Hour Vital Signs Date Time Temp Pulse Resp B/P (MAP) Pulse Ox O2 Delivery O2 Flow Rate FiO2 11/30/18 11:47 97.4 76 18 109/50 (69) 98 11/30/18 09:00 Room Air 11/30/18 08:23 82 145/50 11/30/18 08:00 97.4 82 18 145/50 (81) 98 11/30/18 04:00 99.1 79 17 102/55 (71) 96 11/30/18 00:00 99.3 91 17 116/77 (90) 97 11/29/18 23:50 99.3 11/29/18 23:47 99.3 11/29/18 21:00 Room Air 11/29/18 20:00 101.6 88 16 130/80 (97) 94 11/29/18 16:00 99.0 89 19 124/58 (80) 98 Intake and Output 11/29/18 11/30/18 18:59 06:59 Intake Total 1155 ml 1280 ml Balance 1155 ml 1280 ml Intake Free Water 240 ml 200 ml IV Total 555 ml 600 ml Tube Feeding 360 ml 480 ml # Voids 6 Height (Feet): 5 Height (Inches): 4.00 Weight (Pounds): 160 General Appearance: no apparent distress Objective NO CHANGE Estevan Orozco MD Nov 30, 2018 14:39
--- NOTE | 2018-11-30 15:41 | Infectious Diseases Prog Note ---
Assessment/Plan Problems: (1) Catheter-associated urinary tract infection Assessment & Plan: with MDR Providencia stuartii , continue ertapenem for 10 days total. keep off martinez catheter if possible . may reinsert if retains urine (2) Anemia in CKD (chronic kidney disease) Assessment & Plan: monitor H/H, transfuse as needed (3) Diabetes Assessment & Plan: recommend tight glycemic control to keep blood glucose between 100-140 (4) Acute on chronic renal failure Assessment & Plan: suspect dehydrations, continue IVF close monitor of renal function , avoid nephrotoxics Subjective ROS Limited/Unobtainable: Yes Allergies: Coded Allergies: METOCLOPRAMIDE (Verified Allergy, Unknown, 03/10/18) extrapyramidal Sx Subjective she was resting in bed, comfortable, afebrile , urine looks clear Objective Vital Signs Last 24 Hour Vital Signs Date Time Temp Pulse Resp B/P (MAP) Pulse Ox O2 Delivery O2 Flow Rate FiO2 11/30/18 11:47 97.4 76 18 109/50 (69) 98 11/30/18 09:00 Room Air 11/30/18 08:23 82 145/50 11/30/18 08:00 97.4 82 18 145/50 (81) 98 11/30/18 04:00 99.1 79 17 102/55 (71) 96 11/30/18 00:00 99.3 91 17 116/77 (90) 97 11/29/18 23:50 99.3 11/29/18 23:47 99.3 11/29/18 21:00 Room Air 11/29/18 20:00 101.6 88 16 130/80 (97) 94 11/29/18 16:00 99.0 89 19 124/58 (80) 98 Height (Feet): 5 Height (Inches): 4.00 Weight (Pounds): 160 General Appearance: WD/WN, no acute distress HEENT: normocephalic, atraumatic, anicteric, mucous membranes moist, PERRL Respiratory/Chest: chest wall non-tender, lungs clear, normal breath sounds, no respiratory distress, no accessory muscle use Cardiovascular: normal peripheral pulses, normal rate, regular rhythm, no gallop/murmur, no JVD Abdomen: normal bowel sounds, soft, non tender, no organomegaly, non distended , no mass, no scars Extremities: no cyanosis, no clubbing Skin: no rash, no lesions, ulcers Neurologic/Psychiatric: alert Lymphatic: no neck adenopathy, no groin adenopathy Musculoskeletal: normal muscle bulk, no effusion Current Medications Medications (Trade) Dose Ordered Sig/Nancy Route PRN Reason Start Time Stop Time Status Last Admin Dose Admin Acetaminophen (Tylenol) 650 mg Q4H PRN GT Mild Pain/Temp > 100.5 11/26/18 17:54 12/26/18 17:53 11/29/18 23:20 Amlodipine Besylate (Norvasc) 5 mg DAILY GT 11/27/18 09:00 12/25/18 08:59 11/30/18 08:23 Apixaban (Eliquis) 2.5 mg BID GT 11/27/18 09:00 12/27/18 08:59 11/30/18 08:23 Aspirin (ASA) 81 mg DAILY GT 11/27/18 09:00 12/25/18 08:59 11/30/18 08:22 Dextrose 1,000 ml @ 50 mls/hr Q20H IV 11/26/18 17:54 12/26/18 17:53 11/29/18 16:24 Dextrose (Dextrose 50%) 25 ml Q30M PRN IV Hypoglycemia 11/26/18 18:15 12/24/18 23:44 Dextrose (Dextrose 50%) 50 ml Q30M PRN IV Hypoglycemia 11/26/18 18:15 12/24/18 23:44 Epoetin Wallace (Epoetin Wallace-EPBX(NON ESRD)) 8,000 unit SAT-SAT-SAT SUBQ 12/01/18 21:00 12/31/18 20:59 Ertapenem 0.5 gm/ Sodium Chloride 55 ml @ 110 mls/hr Q24H IVPB 11/29/18 17:00 12/07/18 17:29 11/29/18 16:24 Erythromycin (Erickson-Ped) 50 mg Q6HR GT 11/27/18 00:00 12/04/18 00:00 11/30/18 12:08 Hydralazine HCl (Apresoline) 25 mg Q4H PRN GT bp over 160 syst 11/26/18 17:55 12/26/18 17:54 Insulin Aspart (NovoLOG) Q6HR SUBQ 11/27/18 00:00 12/27/18 00:00 11/30/18 12:08 Insulin Detemir (Levemir) 20 units Q12HR SUBQ 11/26/18 21:00 12/24/18 20:59 11/30/18 09:03 Lansoprazole (Prevacid) 30 mg BID GT 11/27/18 09:00 12/27/18 08:59 11/30/18 08:23 Levetiracetam (Keppra) 1,000 mg Q12HR GT 11/26/18 21:00 12/24/18 20:59 11/30/18 08:23 Ondansetron HCl (Zofran) 4 mg Q4H PRN IVP Nausea & Vomiting 11/29/18 12:45 12/29/18 12:44 11/29/18 12:57 Sucralfate (Carafate) 1 gm BID GT 11/27/18 09:00 12/27/18 08:59 11/30/18 08:23 Tramadol HCl (Ultram) 25 mg Q8HR GT 11/26/18 22:00 12/03/18 21:59 11/30/18 15:11 Ayala Forman M.D. Nov 30, 2018 15:41
[2018-11-30 16:00] VITALS: BP 115/48
[2018-11-30] MEDS: Ertapenem 0.5gm in NS 55ml IVPB SCH (17:41)
--- NOTE | 2018-11-30 19:14 | NUR ---
HAND-OFF: Report given to Ben KELLY RN.
--- NOTE | 2018-11-30 19:27 | NUR ---
NURSE NOTES: Pt is in bed, obtunded. No acute distress noted. Pt moves tongue and makes sounds. Room air. Pt has oral secretions, needs frequent suctioning. HOB elevated. G-tube is patent and in place, no residual, G-tube flushed with water. Nepro running at 40ml/hr via g-tube. Aspiration precaution in place. Pt will be turned at least q2hrs. Bed locked low in position,side rails up and padded. Call light within reach. Pt will be monitored.
[2018-11-30 20:00] VITALS: BP 143/50
[2018-12-01] VITALS: BP 120/50
[2018-12-01] MEDS: NovoLOG Insulin Flexpen SUBQ SCH ×3 (00:35→12:09)
--- NOTE | 2018-12-01 02:42 | NUR ---
NURSE NOTES: Pt is in bed, asleep. No acute distress noted. Vital stable.HOB elevated, oral secretions suctioned. Pt had a large BM, pt was cleaned and bed linen changed.
[2018-12-01 04:00] VITALS: BP 131/60
[2018-12-01] MEDS: Erythromycin Ethylsuccinate 200mg/5ml Susp GT SCH ×2 (06:34→12:08)
[2018-12-01] MEDS: traMADol 50mg tab GT SCH ×2 (06:34→14:12)
[2018-12-01 07:04] LABS: BASOPHILS % (AUTO) 0.4 % (0.0-2.0); EOSINOPHILS % (AUTO) 1.3 % (0.0-3.0); HEMATOCRIT 25.6 % (37.0-47.0); HEMOGLOBIN 8.8 G/DL (12.0-16.0); LYMPHOCYTES % (AUTO) 29.1 % (20.0-45.0); MEAN CORPUSCULAR VOLUME 95 FL (80-99); MONOCYTES % (AUTO) 7.6 % (1.0-10.0); NEUTROPHILS % (AUTO) 61.7 % (45.0-75.0); PLATELET COUNT 158 K/UL (150-450); RED BLOOD COUNT 2.69 M/UL (4.20-5.40); RED CELL DISTRIBUTION WIDTH 15.6 % (11.6-14.8); WHITE BLOOD COUNT 12.1 K/UL (4.8-10.8)
--- NOTE | 2018-12-01 07:20 | NUR ---
HAND-OFF: Report given to LUIS Haywood.
[2018-12-01 07:27] LABS: ALANINE AMINOTRANSFERASE 8 U/L (12-78); ALBUMIN 2.9 G/DL (3.4-5.0); ALBUMIN/GLOBULIN RATIO 0.5 (1.0-2.7); ALKALINE PHOSPHATASE 130 U/L (46-116); ANION GAP 9 mmol/L (5-15); ASPARTATE AMINO TRANSFERASE 14 U/L (15-37); BILIRUBIN,TOTAL 0.3 MG/DL (0.2-1.0); BLOOD UREA NITROGEN 61 mg/dL (7-18); CALCIUM 8.8 MG/DL (8.5-10.1); CARBON DIOXIDE 26 MMOL/L (21-32); CHLORIDE 100 MMOL/L (98-107); PHOSPHORUS 3.3 MG/DL (2.5-4.9); SODIUM 135 MMOL/L (136-145)
--- NOTE | 2018-12-01 07:52 | NUR ---
NURSE NOTES: Patient is asleep. Patient is on room air. No s/s of distress. Side rails are upx3, side rails are padded. Bed is locked and in lowest position. Will continue to monitor.
[2018-12-01 08:00] VITALS: BP 133/65
[2018-12-01] MEDS: Eliquis 2.5mg tablet GT SCH (08:24)
[2018-12-01] MEDS: Sucralfate 1gm tab GT SCH (08:24)
[2018-12-01] MEDS: Aspirin Baby 81mg GT SCH (08:25)
[2018-12-01] MEDS: levETIRAcetam 500mg/5ml Liquid GT SCH (08:25)
[2018-12-01] MEDS: Levemir Flexpen SUBQ SCH (08:26)
--- NOTE | 2018-12-01 09:52 | General Progress Note ---
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; K31.84 - Gastroparesis SNOMED: 556953018 (3) G tube feedings ICD Codes: Z93.1 - G tube feedings SNOMED: 066801084 (4) Sacral decubitus ulcer, stage III ICD Codes: L89.153 - Pressure ulcer of sacral region, stage 3 SNOMED: 452383662, 486942598 (5) Diabetes ICD Codes: E11.9 - Type 2 diabetes mellitus without complications SNOMED: 93644060 (6) Seizure disorder ICD Codes: G40.909 - Epilepsy, unspecified, not intractable, without status epilepticus SNOMED: 003016529 (7) UTI (urinary tract infection) Assessment & Plan: ESBL- [facility] Status: stable Assessment/Plan: DC with IM Ivanz BP and BS control per orders CXR urine c/s now > 100 K Per ID advise- Meropenem Subjective ROS Limited/Unobtainable: No Allergies: Coded Allergies: METOCLOPRAMIDE (Verified Allergy, Unknown, 03/10/18) extrapyramidal Sx Objective Last 24 Hour Vital Signs Date Time Temp Pulse Resp B/P (MAP) Pulse Ox O2 Delivery O2 Flow Rate FiO2 12/01/18 08:25 82 132/65 12/01/18 04:00 98.7 79 18 131/60 (83) 97 12/01/18 00:00 97.8 86 18 120/50 (73) 95 11/30/18 21:00 Room Air 11/30/18 20:00 97.9 88 16 143/50 (81) 98 11/30/18 16:00 98.2 82 19 115/48 (70) 98 11/30/18 11:47 97.4 76 18 109/50 (69) 98 Intake and Output 11/30/18 12/01/18 19:00 07:00 Intake Total 1105 ml 1030 ml Output Total 550 ml Balance 1105 ml 480 ml Intake Free Water 120 ml 150 ml IV Total 505 ml 600 ml Tube Feeding 480 ml 280 ml Output Urine Total 550 ml # Voids 2 2 # Bowel Movements 3 1 Current Medications Medications (Trade) Dose Ordered Sig/Nancy Route PRN Reason Start Time Stop Time Status Last Admin Dose Admin Acetaminophen (Tylenol) 650 mg Q4H PRN GT Mild Pain/Temp > 100.5 11/26/18 17:54 12/26/18 17:53 11/29/18 23:20 Amlodipine Besylate (Norvasc) 5 mg DAILY GT 11/27/18 09:00 12/25/18 08:59 12/01/18 08:25 Apixaban (Eliquis) 2.5 mg BID GT 11/27/18 09:00 12/27/18 08:59 12/01/18 08:24 Aspirin (ASA) 81 mg DAILY GT 11/27/18 09:00 12/25/18 08:59 12/01/18 08:25 Dextrose 1,000 ml @ 50 mls/hr Q20H IV 11/26/18 17:54 12/26/18 17:53 11/30/18 13:00 Dextrose (Dextrose 50%) 25 ml Q30M PRN IV Hypoglycemia 11/26/18 18:15 12/24/18 23:44 Dextrose (Dextrose 50%) 50 ml Q30M PRN IV Hypoglycemia 11/26/18 18:15 12/24/18 23:44 Epoetin Wallace (Epoetin Wallace-EPBX(NON ESRD)) 8,000 unit SAT-SAT-SAT SUBQ 12/01/18 21:00 12/31/18 20:59 Ertapenem 0.5 gm/ Sodium Chloride 55 ml @ 110 mls/hr Q24H IVPB 11/29/18 17:00 12/07/18 17:29 11/30/18 17:41 Erythromycin (Erickson-Ped) 50 mg Q6HR GT 11/27/18 00:00 12/04/18 00:00 12/01/18 06:34 Hydralazine HCl (Apresoline) 25 mg Q4H PRN GT bp over 160 syst 11/26/18 17:55 12/26/18 17:54 Insulin Aspart (NovoLOG) Q6HR SUBQ 11/27/18 00:00 12/27/18 00:00 12/01/18 06:40 Insulin Detemir (Levemir) 20 units Q12HR SUBQ 11/26/18 21:00 12/24/18 20:59 12/01/18 08:26 Lansoprazole (Prevacid) 30 mg BID GT 11/27/18 09:00 12/27/18 08:59 12/01/18 08:25 Levetiracetam (Keppra) 1,000 mg Q12HR GT 11/26/18 21:00 12/24/18 20:59 12/01/18 08:25 Ondansetron HCl (Zofran) 4 mg Q4H PRN IVP Nausea & Vomiting 11/29/18 12:45 12/29/18 12:44 11/29/18 12:57 Potassium Chloride 100 ml @ 100 mls/hr Q1HR IVPB 12/01/18 10:00 12/01/18 12:59 12/01/18 09:30 Sucralfate (Carafate) 1 gm BID GT 11/27/18 09:00 12/27/18 08:59 12/01/18 08:24 Tramadol HCl (Ultram) 25 mg Q8HR GT 11/26/18 22:00 12/03/18 21:59 12/01/18 06:34 Laboratory Tests 11/30/18 14:45: Stool Occult Blood [Pending] 12/01/18 05:50: White Blood Count 12.1H, Red Blood Count 2.69L, Hemoglobin 8.8L, Hematocrit 25.6L, Mean Corpuscular Volume 95, Mean Corpuscular Hemoglobin 32.5H, Mean Corpuscular Hemoglobin Concent 34.2, Red Cell Distribution Width 15.6H, Platelet Count 158, Mean Platelet Volume 11.0H, Neutrophils (%) (Auto) 61.7, Lymphocytes (%) (Auto) 29.1, Monocytes (%) (Auto) 7.6, Eosinophils (%) (Auto) 1.3, Basophils (%) (Auto) 0.4, Erythrocyte Sedimentation Rate 126H, Sodium Level 135L, Potassium Level 3.0L, Chloride Level 100, Carbon Dioxide Level 26, Anion Gap 9, Blood Urea Nitrogen 61H, Creatinine 2.0H, Estimat Glomerular Filtration Rate , Glucose Level 103, Calcium Level 8.8, Phosphorus Level 3.3, Magnesium Level 2.2, Total Bilirubin 0.3, Aspartate Amino Transf (AST/SGOT) 14L , Alanine Aminotransferase (ALT/SGPT) 8L, Alkaline Phosphatase 130H, C-Reactive Protein, Quantitative 9.9H, Total Protein 8.2, Albumin 2.9L, Globulin 5.3, Albumin/Globulin Ratio 0.5L Height (Feet): 5 Height (Inches): 4.00 Weight (Pounds): 1611 General Appearance: no apparent distress Cardiovascular: normal rate Respiratory/Chest: decreased breath sounds Abdomen: soft Objective NO CHANGE Estevan Orozco MD Dec 01, 2018 09:52
[2018-12-01] MEDS ORDERED: RETACRIT3000 UNIT/ SUBQ (09:58)
[2018-12-01] MEDS ORDERED: LEVEMIR FL100 UNIT/1 SUBQ (09:58)
[2018-12-01] MEDS ORDERED: TRAMADOL HCL50 MG GT (09:58)
[2018-12-01] MEDS ORDERED: SUCRALFATE1 GM GT (09:58)
[2018-12-01] MEDS ORDERED: INVANZ1 G1 IM (09:58)
--- NOTE | 2018-12-01 10:00 | Discharge Instructions ---
Discharge Instructions Discharge Instructions Follow up with: fu with PMD Diet: tube feeding - Glucerna 50 cc h Special Instructions aspiration precautions- Routin skin care CARLOS martinez when and if sacral skin appears clean For Congestive Heart Failure Reminder Report to your physician any weight gain of 5 pounds or more in one week. Estevan Orozco MD Dec 01, 2018 10:00
--- NOTE | 2018-12-01 10:27 | NUR ---
NURSE NOTES: CALLED AND SPOKE WITH [phone] JACQUI CEVALLOS DC TO SNF, AGREED
--- NOTE | 2018-12-01 10:43 | NUR ---
*-* DISCHARGE PLANNED *-* PATIENT IS DISCHARGED TO: [facility] [address]OM[address] T:[phone] FOR NURSE TO NURSE REPORT. [facility] HAS BEEN ARRANGED FOR HEALTH INFORMATION PROVIDER AT [address] *-* FAMILY NOTIFICATION *-* TRIED CALLING DAPHNEY CRAVEN AT [phone] WITH NO LUCK UNABLE TO LEAVE VM IF FULL. THE TRIED CALLING YAW MCCLAIN AT [phone].WITH NO LUCK VOICEMAIL IS ALSO FULL.
--- NOTE | 2018-12-01 10:45 | NUR ---
NURSE NOTES: REPORT GIVEN TO MCKAY FROM ADRYAN CON[facility]
--- NOTE | 2018-12-01 10:56 | GI Progress Note ---
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 Arana. Assessment/Plan No plans for any GI procedures at this time Note that the patient is on Eliquis, must be discontinued for a minimum of 48 hours prior any procedures. Continue low-dose erythromycin for GI motility given allergy to Reglan Continue G-tube feedings at current rate, no reported residuals per RN G-tube site care daily and as needed Anemia work-up reviewed Monitor H&H, PRN transfusions OB stool r/o GI bleed, pending final read bowel regimen ppi fu labs The patient was seen and examined at bedside and all new and available data was reviewed in the patients chart. I agree with the above findings, impression and plan. (Patient seen earlier today. Signature stamp does not reflect patient encounter time.). - Jamaal Arana MD Subjective Subjective limited Objective Last 24 Hour Vital Signs Date Time Temp Pulse Resp B/P (MAP) Pulse Ox O2 Delivery O2 Flow Rate FiO2 12/01/18 08:25 82 132/65 12/01/18 08:15 Room Air 12/01/18 08:00 98.3 82 19 133/65 (87) 98 12/01/18 04:00 98.7 79 18 131/60 (83) 97 12/01/18 00:00 97.8 86 18 120/50 (73) 95 11/30/18 21:00 Room Air 11/30/18 20:00 97.9 88 16 143/50 (81) 98 11/30/18 16:00 98.2 82 19 115/48 (70) 98 11/30/18 11:47 97.4 76 18 109/50 (69) 98 Intake and Output 11/30/18 12/01/18 19:00 07:00 Intake Total 1105 ml 1030 ml Output Total 550 ml Balance 1105 ml 480 ml Intake Free Water 120 ml 150 ml IV Total 505 ml 600 ml Tube Feeding 480 ml 280 ml Output Urine Total 550 ml # Voids 2 2 # Bowel Movements 3 1 Laboratory Tests Test 11/30/18 14:45 12/01/18 05:50 Stool Occult Blood Pending White Blood Count 12.1 K/UL (4.8-10.8) H Red Blood Count 2.69 M/UL (4.20-5.40) L Hemoglobin 8.8 G/DL (12.0-16.0) L Hematocrit 25.6 % (37.0-47.0) L Mean Corpuscular Volume 95 FL (80-99) Mean Corpuscular Hemoglobin 32.5 PG (27.0-31.0) H Mean Corpuscular Hemoglobin Concent 34.2 G/DL (32.0-36.0) Red Cell Distribution Width 15.6 % (11.6-14.8) H Platelet Count 158 K/UL (150-450) Mean Platelet Volume 11.0 FL (6.5-10.1) H Neutrophils (%) (Auto) 61.7 % (45.0-75.0) Lymphocytes (%) (Auto) 29.1 % (20.0-45.0) Monocytes (%) (Auto) 7.6 % (1.0-10.0) Eosinophils (%) (Auto) 1.3 % (0.0-3.0) Basophils (%) (Auto) 0.4 % (0.0-2.0) Erythrocyte Sedimentation Rate 126 MM/HR (0-30) H Sodium Level 135 MMOL/L (136-145) L Potassium Level 3.0 MMOL/L (3.5-5.1) L Chloride Level 100 MMOL/L (98-107) Carbon Dioxide Level 26 MMOL/L (21-32) Anion Gap 9 mmol/L (5-15) Blood Urea Nitrogen 61 mg/dL (7-18) H Creatinine 2.0 MG/DL (0.55-1.30) H Estimat Glomerular Filtration Rate mL/min (>60) Glucose Level 103 MG/DL (74-106) Calcium Level 8.8 MG/DL (8.5-10.1) Phosphorus Level 3.3 MG/DL (2.5-4.9) Magnesium Level 2.2 MG/DL (1.8-2.4) Total Bilirubin 0.3 MG/DL (0.2-1.0) Aspartate Amino Transf (AST/SGOT) 14 U/L (15-37) L Alanine Aminotransferase (ALT/SGPT) 8 U/L (12-78) L Alkaline Phosphatase 130 U/L (46-116) H C-Reactive Protein, Quantitative 9.9 mg/dL (0.00-0.90) H Total Protein 8.2 G/DL (6.4-8.2) Albumin 2.9 G/DL (3.4-5.0) L Globulin 5.3 g/dL Albumin/Globulin Ratio 0.5 (1.0-2.7) L Height (Feet): 5 Height (Inches): 4.00 Weight (Pounds): 163 General Appearance: WD/WN, no apparent distress, alert Cardiovascular: normal rate Respiratory/Chest: normal breath sounds, no respiratory distress Abdominal Exam: normal bowel sounds, non tender, soft, GT site Extremities: non-tender Justus Foreman NP Dec 01, 2018 10:56
--- NOTE | 2018-12-01 11:49 | CDS Physician Query ---
Clarification is required for compliance, coding accuracy, and to reflect severity of illness for this patient Dear Dr. Estevan Orozco Date: 2018 Shake Table Operator/CDS Name: Amber Dnenis Clarification is needed for one (or more) of the following conditions in order to accurately assign the "present on admission' indicator. Please choose the answer that best indicates whether the associated condition was present at the time of the order for inpatient admission. Thank you. DIAGNOSIS:Catheter-associated urinary tract infection (Infectious disease note ) Was the CAUTI Present on admission? [] YES [] NO [] Clinically Undeterminable Physician signature Date Please also document in your Progress Notes and/or Discharge Summary and indicate if the condition was present on admission. LUIS DANIELD
[2018-12-01 12:00] VITALS: BP 119/50
--- NOTE | 2018-12-01 12:00 | Pulmonology Progress Note ---
Assessment/Plan Problems: (1) At high risk for aspiration (2) Acute on chronic renal failure (3) Anemia in CKD (chronic kidney disease) (4) Epileptic seizure, generalized (5) Functional quadriplegia (6) Right hemiparesis (7) G tube feedings (8) Diabetes (9) Dementia Assessment/Plan no new events doing better check cultures, VRE rectum, MDR in urine check electrolytes daily iv abx med/surg, normal sinus rhythm dvt prophylaxis all reviewed Subjective ROS Limited/Unobtainable: No Constitutional: Reports: no symptoms Respiratory: Reports: no symptoms Allergies: Coded Allergies: METOCLOPRAMIDE (Verified Allergy, Unknown, 03/10/18) extrapyramidal Sx Objective Last 24 Hour Vital Signs Date Time Temp Pulse Resp B/P (MAP) Pulse Ox O2 Delivery O2 Flow Rate FiO2 12/01/18 08:25 82 132/65 12/01/18 08:15 Room Air 12/01/18 08:00 98.3 82 19 133/65 (87) 98 12/01/18 04:00 98.7 79 18 131/60 (83) 97 12/01/18 00:00 97.8 86 18 120/50 (73) 95 11/30/18 21:00 Room Air 11/30/18 20:00 97.9 88 16 143/50 (81) 98 11/30/18 16:00 98.2 82 19 115/48 (70) 98 Intake and Output 11/30/18 12/01/18 19:00 07:00 Intake Total 1105 ml 1030 ml Output Total 550 ml Balance 1105 ml 480 ml Intake Free Water 120 ml 150 ml IV Total 505 ml 600 ml Tube Feeding 480 ml 280 ml Output Urine Total 550 ml # Voids 2 2 # Bowel Movements 3 1 Objective General Appearance: WD/WN HEENT: normocephalic, atraumatic Respiratory/Chest: chest wall non-tender, lungs clear, normal breath sounds Breasts: no masses Cardiovascular: normal peripheral pulses, normal rate Abdomen: normal bowel sounds, soft, non tender, Gtube Laboratory Tests 11/30/18 14:45: Stool Occult Blood [Pending] 12/01/18 05:50: White Blood Count 12.1H, Red Blood Count 2.69L, Hemoglobin 8.8L, Hematocrit 25.6L, Mean Corpuscular Volume 95, Mean Corpuscular Hemoglobin 32.5H, Mean Corpuscular Hemoglobin Concent 34.2, Red Cell Distribution Width 15.6H, Platelet Count 158, Mean Platelet Volume 11.0H, Neutrophils (%) (Auto) 61.7, Lymphocytes (%) (Auto) 29.1, Monocytes (%) (Auto) 7.6, Eosinophils (%) (Auto) 1.3, Basophils (%) (Auto) 0.4, Erythrocyte Sedimentation Rate 126H, Sodium Level 135L, Potassium Level 3.0L, Chloride Level 100, Carbon Dioxide Level 26, Anion Gap 9, Blood Urea Nitrogen 61H, Creatinine 2.0H, Estimat Glomerular Filtration Rate , Glucose Level 103, Calcium Level 8.8, Phosphorus Level 3.3, Magnesium Level 2.2, Total Bilirubin 0.3, Aspartate Amino Transf (AST/SGOT) 14L , Alanine Aminotransferase (ALT/SGPT) 8L, Alkaline Phosphatase 130H, C-Reactive Protein, Quantitative 9.9H, Total Protein 8.2, Albumin 2.9L, Globulin 5.3, Albumin/Globulin Ratio 0.5L Current Medications Medications (Trade) Dose Ordered Sig/Nancy Route PRN Reason Start Time Stop Time Status Last Admin Dose Admin Acetaminophen (Tylenol) 650 mg Q4H PRN GT Mild Pain/Temp > 100.5 11/26/18 17:54 12/26/18 17:53 11/29/18 23:20 Amlodipine Besylate (Norvasc) 5 mg DAILY GT 11/27/18 09:00 12/25/18 08:59 12/01/18 08:25 Apixaban (Eliquis) 2.5 mg BID GT 11/27/18 09:00 12/27/18 08:59 12/01/18 08:24 Aspirin (ASA) 81 mg DAILY GT 11/27/18 09:00 12/25/18 08:59 12/01/18 08:25 Dextrose (Dextrose 50%) 25 ml Q30M PRN IV Hypoglycemia 11/26/18 18:15 12/24/18 23:44 Dextrose (Dextrose 50%) 50 ml Q30M PRN IV Hypoglycemia 11/26/18 18:15 12/24/18 23:44 Epoetin Wallace (Epoetin Wallace-EPBX(NON ESRD)) 8,000 unit SAT-SAT-SAT SUBQ 12/01/18 21:00 12/31/18 20:59 Ertapenem 0.5 gm/ Sodium Chloride 55 ml @ 110 mls/hr Q24H IVPB 11/29/18 17:00 12/07/18 17:29 11/30/18 17:41 Erythromycin (Erickson-Ped) 50 mg Q6HR GT 11/27/18 00:00 12/04/18 00:00 12/01/18 06:34 Hydralazine HCl (Apresoline) 25 mg Q4H PRN GT bp over 160 syst 11/26/18 17:55 12/26/18 17:54 Insulin Aspart (NovoLOG) Q6HR SUBQ 11/27/18 00:00 12/27/18 00:00 12/01/18 06:40 Insulin Detemir (Levemir) 20 units Q12HR SUBQ 11/26/18 21:00 12/24/18 20:59 12/01/18 08:26 Lansoprazole (Prevacid) 30 mg BID GT 11/27/18 09:00 12/27/18 08:59 12/01/18 08:25 Levetiracetam (Keppra) 1,000 mg Q12HR GT 11/26/18 21:00 12/24/18 20:59 12/01/18 08:25 Ondansetron HCl (Zofran) 4 mg Q4H PRN IVP Nausea & Vomiting 11/29/18 12:45 12/29/18 12:44 11/29/18 12:57 Potassium Chloride 100 ml @ 100 mls/hr Q1HR IVPB 12/01/18 10:00 12/01/18 12:59 12/01/18 10:57 Sucralfate (Carafate) 1 gm BID GT 11/27/18 09:00 12/27/18 08:59 12/01/18 08:24 Tramadol HCl (Ultram) 25 mg Q8HR GT 11/26/18 22:00 12/03/18 21:59 12/01/18 06:34 Saira Lazcano MD Dec 01, 2018 12:00
--- NOTE | 2018-12-01 12:52 | Surgery Progress Note ---
Surgery Progress Note Subjective Additional Comments no acute event resting comfortable Objective Last 24 Hour Vital Signs Date Time Temp Pulse Resp B/P (MAP) Pulse Ox O2 Delivery O2 Flow Rate FiO2 12/01/18 08:25 82 132/65 12/01/18 08:15 Room Air 12/01/18 08:00 98.3 82 19 133/65 (87) 98 12/01/18 04:00 98.7 79 18 131/60 (83) 97 12/01/18 00:00 97.8 86 18 120/50 (73) 95 11/30/18 21:00 Room Air 11/30/18 20:00 97.9 88 16 143/50 (81) 98 11/30/18 16:00 98.2 82 19 115/48 (70) 98 I&O Intake and Output 11/30/18 12/01/18 18:59 06:59 Intake Total 1105 ml 1070 ml Output Total 550 ml Balance 1105 ml 520 ml Intake Free Water 120 ml 150 ml IV Total 505 ml 600 ml Tube Feeding 480 ml 320 ml Output Urine Total 550 ml # Voids 2 2 # Bowel Movements 3 1 Dressing: other Wound: other Drains: none Cardiovascular: RSR Respiratory: clear Abdomen: soft, present bowel sounds, other Extremities: no cyanosis, other Laboratory Tests Test 11/30/18 14:45 12/01/18 05:50 Stool Occult Blood Negative (NEGATIVE) White Blood Count 12.1 K/UL (4.8-10.8) H Red Blood Count 2.69 M/UL (4.20-5.40) L Hemoglobin 8.8 G/DL (12.0-16.0) L Hematocrit 25.6 % (37.0-47.0) L Mean Corpuscular Volume 95 FL (80-99) Mean Corpuscular Hemoglobin 32.5 PG (27.0-31.0) H Mean Corpuscular Hemoglobin Concent 34.2 G/DL (32.0-36.0) Red Cell Distribution Width 15.6 % (11.6-14.8) H Platelet Count 158 K/UL (150-450) Mean Platelet Volume 11.0 FL (6.5-10.1) H Neutrophils (%) (Auto) 61.7 % (45.0-75.0) Lymphocytes (%) (Auto) 29.1 % (20.0-45.0) Monocytes (%) (Auto) 7.6 % (1.0-10.0) Eosinophils (%) (Auto) 1.3 % (0.0-3.0) Basophils (%) (Auto) 0.4 % (0.0-2.0) Erythrocyte Sedimentation Rate 126 MM/HR (0-30) H Sodium Level 135 MMOL/L (136-145) L Potassium Level 3.0 MMOL/L (3.5-5.1) L Chloride Level 100 MMOL/L (98-107) Carbon Dioxide Level 26 MMOL/L (21-32) Anion Gap 9 mmol/L (5-15) Blood Urea Nitrogen 61 mg/dL (7-18) H Creatinine 2.0 MG/DL (0.55-1.30) H Estimat Glomerular Filtration Rate mL/min (>60) Glucose Level 103 MG/DL (74-106) Calcium Level 8.8 MG/DL (8.5-10.1) Phosphorus Level 3.3 MG/DL (2.5-4.9) Magnesium Level 2.2 MG/DL (1.8-2.4) Total Bilirubin 0.3 MG/DL (0.2-1.0) Aspartate Amino Transf (AST/SGOT) 14 U/L (15-37) L Alanine Aminotransferase (ALT/SGPT) 8 U/L (12-78) L Alkaline Phosphatase 130 U/L (46-116) H C-Reactive Protein, Quantitative 9.9 mg/dL (0.00-0.90) H Total Protein 8.2 G/DL (6.4-8.2) Albumin 2.9 G/DL (3.4-5.0) L Globulin 5.3 g/dL Albumin/Globulin Ratio 0.5 (1.0-2.7) L Plan Problems: (1) Decubitus skin ulcer Assessment & Plan: Pt presented on admission with L AKA,Pressure injuries.Historical Stage four pressure injury sacrum. Hyperpigmentation noted with scattered shearing. Hyperpigmentation R ischium. Resolving unstageable pressure injury R heel. Wound is crescent shaped with stable dry eschar (L)7cm x (W)3cm.Hyperpigmentation and dry peeling skin periwound.Stable dry eschar noted to R hallux (L)2cm x (W)1.5cm. No other skin concerns noted. Need to be careful as she is high risk for sacral wound opening again Tx.Plan: Apply Cavilon To R hallux and R heel. Cover each site with Optifoam drsgs. Change every 7 days and prn. Apply Moisture Barrier Paste to Sacrum . Cover with Optifoam drsg. Change every 3 days and prn. Apply Moisture Barrier to Abdominal folds,Bilat groin and ischial areas with each incontinence care. APM/KALE mattress overlay. Reposition at least every 2hours or as tolerated. Off-load L heel with pillow. (2) Osteomyelitis of ankle or foot, left, acute Assessment & Plan: wound looks great no signs of active infection healing well Taco Carter Dec 01, 2018 12:52
--- NOTE | 2018-12-01 15:15 | Infectious Diseases Prog Note ---
Assessment/Plan Problems: (1) Catheter-associated urinary tract infection Assessment & Plan: with MDR Providencia stuartii , continue ertapenem for 10 days total. keep off martinez catheter if possible . may reinsert if retains urine (2) Anemia in CKD (chronic kidney disease) Assessment & Plan: monitor H/H, transfuse as needed (3) Diabetes Assessment & Plan: recommend tight glycemic control to keep blood glucose between 100-140 (4) Acute on chronic renal failure Assessment & Plan: suspect dehydrations, continue IVF close monitor of renal function , avoid nephrotoxics Subjective ROS Limited/Unobtainable: Yes Allergies: Coded Allergies: METOCLOPRAMIDE (Verified Allergy, Unknown, 03/10/18) extrapyramidal Sx Subjective she was resting in bed, comfortable, afebrile , urine looks clear Objective Vital Signs Last 24 Hour Vital Signs Date Time Temp Pulse Resp B/P (MAP) Pulse Ox O2 Delivery O2 Flow Rate FiO2 12/01/18 12:00 97.2 75 18 119/50 (73) 95 12/01/18 08:25 82 132/65 12/01/18 08:15 Room Air 12/01/18 08:00 98.3 82 19 133/65 (87) 98 12/01/18 04:00 98.7 79 18 131/60 (83) 97 12/01/18 00:00 97.8 86 18 120/50 (73) 95 11/30/18 21:00 Room Air 11/30/18 20:00 97.9 88 16 143/50 (81) 98 11/30/18 16:00 98.2 82 19 115/48 (70) 98 Height (Feet): 5 Height (Inches): 4.00 Weight (Pounds): 163 General Appearance: WD/WN, no acute distress HEENT: normocephalic, atraumatic, anicteric, mucous membranes moist, PERRL, supple, no JVD Respiratory/Chest: chest wall non-tender, lungs clear, normal breath sounds, no respiratory distress, no accessory muscle use Cardiovascular: normal peripheral pulses, normal rate, regular rhythm Abdomen: normal bowel sounds, soft, non tender, no organomegaly, non distended , no mass, no scars Extremities: no cyanosis, no clubbing Skin: no rash, no lesions, no ulcers Neurologic/Psychiatric: alert, unresponsiveness Lymphatic: no neck adenopathy, no groin adenopathy Musculoskeletal: normal muscle bulk, no effusion Laboratory Tests Test 12/01/18 05:50 White Blood Count 12.1 K/UL (4.8-10.8) H Red Blood Count 2.69 M/UL (4.20-5.40) L Hemoglobin 8.8 G/DL (12.0-16.0) L Hematocrit 25.6 % (37.0-47.0) L Mean Corpuscular Volume 95 FL (80-99) Mean Corpuscular Hemoglobin 32.5 PG (27.0-31.0) H Mean Corpuscular Hemoglobin Concent 34.2 G/DL (32.0-36.0) Red Cell Distribution Width 15.6 % (11.6-14.8) H Platelet Count 158 K/UL (150-450) Mean Platelet Volume 11.0 FL (6.5-10.1) H Neutrophils (%) (Auto) 61.7 % (45.0-75.0) Lymphocytes (%) (Auto) 29.1 % (20.0-45.0) Monocytes (%) (Auto) 7.6 % (1.0-10.0) Eosinophils (%) (Auto) 1.3 % (0.0-3.0) Basophils (%) (Auto) 0.4 % (0.0-2.0) Erythrocyte Sedimentation Rate 126 MM/HR (0-30) H Sodium Level 135 MMOL/L (136-145) L Potassium Level 3.0 MMOL/L (3.5-5.1) L Chloride Level 100 MMOL/L (98-107) Carbon Dioxide Level 26 MMOL/L (21-32) Anion Gap 9 mmol/L (5-15) Blood Urea Nitrogen 61 mg/dL (7-18) H Creatinine 2.0 MG/DL (0.55-1.30) H Estimat Glomerular Filtration Rate mL/min (>60) Glucose Level 103 MG/DL (74-106) Calcium Level 8.8 MG/DL (8.5-10.1) Phosphorus Level 3.3 MG/DL (2.5-4.9) Magnesium Level 2.2 MG/DL (1.8-2.4) Total Bilirubin 0.3 MG/DL (0.2-1.0) Aspartate Amino Transf (AST/SGOT) 14 U/L (15-37) L Alanine Aminotransferase (ALT/SGPT) 8 U/L (12-78) L Alkaline Phosphatase 130 U/L (46-116) H C-Reactive Protein, Quantitative 9.9 mg/dL (0.00-0.90) H Total Protein 8.2 G/DL (6.4-8.2) Albumin 2.9 G/DL (3.4-5.0) L Globulin 5.3 g/dL Albumin/Globulin Ratio 0.5 (1.0-2.7) L Current Medications Medications (Trade) Dose Ordered Sig/Nancy Route PRN Reason Start Time Stop Time Status Last Admin Dose Admin Acetaminophen (Tylenol) 650 mg Q4H PRN GT Mild Pain/Temp > 100.5 11/26/18 17:54 12/26/18 17:53 11/29/18 23:20 Amlodipine Besylate (Norvasc) 5 mg DAILY GT 11/27/18 09:00 12/25/18 08:59 12/01/18 08:25 Apixaban (Eliquis) 2.5 mg BID GT 11/27/18 09:00 12/27/18 08:59 12/01/18 08:24 Aspirin (ASA) 81 mg DAILY GT 11/27/18 09:00 12/25/18 08:59 12/01/18 08:25 Dextrose (Dextrose 50%) 25 ml Q30M PRN IV Hypoglycemia 11/26/18 18:15 12/24/18 23:44 Dextrose (Dextrose 50%) 50 ml Q30M PRN IV Hypoglycemia 11/26/18 18:15 12/24/18 23:44 Epoetin Wallace (Epoetin Wallace-EPBX(NON ESRD)) 8,000 unit SAT-SAT-SAT SUBQ 12/01/18 21:00 12/31/18 20:59 Ertapenem 0.5 gm/ Sodium Chloride 55 ml @ 110 mls/hr Q24H IVPB 11/29/18 17:00 12/07/18 17:29 11/30/18 17:41 Erythromycin (Erickson-Ped) 50 mg Q6HR GT 11/27/18 00:00 12/04/18 00:00 12/01/18 12:08 Hydralazine HCl (Apresoline) 25 mg Q4H PRN GT bp over 160 syst 11/26/18 17:55 12/26/18 17:54 Insulin Aspart (NovoLOG) Q6HR SUBQ 11/27/18 00:00 12/27/18 00:00 12/01/18 12:09 Insulin Detemir (Levemir) 20 units Q12HR SUBQ 11/26/18 21:00 12/24/18 20:59 12/01/18 08:26 Lansoprazole (Prevacid) 30 mg BID GT 11/27/18 09:00 12/27/18 08:59 12/01/18 08:25 Levetiracetam (Keppra) 1,000 mg Q12HR GT 11/26/18 21:00 12/24/18 20:59 12/01/18 08:25 Ondansetron HCl (Zofran) 4 mg Q4H PRN IVP Nausea & Vomiting 11/29/18 12:45 12/29/18 12:44 11/29/18 12:57 Sucralfate (Carafate) 1 gm BID GT 11/27/18 09:00 12/27/18 08:59 12/01/18 08:24 Tramadol HCl (Ultram) 25 mg Q8HR GT 11/26/18 22:00 12/03/18 21:59 12/01/18 14:12 Ayala Forman M.D. Dec 01, 2018 15:15
--- NOTE | 2018-12-01 16:47 | NUR ---
NURSE NOTES: Patient discharged to [facility] via ambulance. IV removed. Patient stable upon discharge.
[2018-12-01] MEDS ORDERED: Epoetin Alfa-EPBX (NON ESRD)4000 units/ml vial SUBQ SCH (21:00)
--- NOTE | 2018-12-02 09:00 | Discharge Summary ---
Discharge Summary Discharge Summary _ DATE OF ADMISSION: 11/24/2018 DATE OF DISCHARGE: 12/01/2018 DISCHARGED BY: Dr. Orozco REASON FOR ADMISSION: 83 years old female with past medical history of diabetes mellitus, DVT, sepsis , UTI, history of left foot osteomyelitis, status post above-knee amputation, seizure disorder, dementia, dysphagia, G-tube feeding, functional quadriplegia, presented from the custodial facility due to abnormal lab work. Which revealed elevated BUN and creatinine. Patient by herself nonverbal at baseline and unable to provide any additional history. No signs of distress noted upon arrival. No reported fevers or chills. No reported nausea or vomiting. Upon evaluation laboratory work-up revealed no leukocytosis hemoglobin 10.1 hematocrit 31.6. Sodium 148., Potassium 5.3, BUN 89, creatinine 2.4. Lipase 488. Stable AST and ALT. Urinalysis revealed +3 protein. No evidence of UTI. EKG reveals sinus rhythm no acute ischemic changes. Chest x-ray demonstrated no acute cardiopulmonary pathology. Patient subsequently admitted to telemetry in emergency department patient started on the IV fluids. Patient admitted to telemetry floor CONSULTANTS: pulmonary/critical care Dr. Lazcano ID specialist Dr. Forman GI specialist Dr. Arana surgery [facility] COURSE: Patient admitted to telemetry floor. Patient continued on IV fluids. Renal parameters and electrolytes were closely monitored. Nephrotoxins avoided , and electrolytes corrected as needed. Acute renal failure was likely due to dehydration. Renal parameters were trending down. Hypernatremia resolved. Recommended to avoid nephrotoxic in future and maintain adequate hydration via G-tube. ID specialist followed. Urine culture initially revealed mixed gram-positive organisms. Repeated urine cultures demonstrated growth of Providencia MDR. Antibiotics provided as per ID specialist recommendation. Patient remained afebrile, with mild leukocytosis. Per ID specialist recommendation, patient will need to complete full treatment for 10 days . ID specialist also recommended keep Umaña catheter off if possible. And reinsert only if urinary retention. Blood sugar was closely monitored and managed with sliding scale of insulin. Blood pressure was managed Strict aspiration precaution maintained. Supplemental oxygen was on board as needed to keep pulse oximetry above 92%. Pulse oximetry was stable on room air. Seizure precautions maintained. No evidence of seizure activity. GI specialist was consulted for reported gastroparesis. Low dose of erythromycin was added for GI motility. given allergy to Reglan. G-tube site was intact . G tube site care provided daily and as needed. Bowel regimen instituted. Tube feeding continued, no reported residuals. No plan for any GI procedure at this time. Patient was on Eliquis , which need to be discontinued for minimal 48 hours prior to the procedure. Hemoglobin and hematocrit were closely monitored with goal to keep hemoglobin above 7 Prior to discharge hemoglobin 8.8, hematocrit 25.6. Anemia work-up revealed stable iron and high ferritin 1138. Lipid panel stable. Stool for occult blood was negative. Pain management was addressed. Symptomatic care provided. Surgeon followed for sacral diabetes ulcer stage III , present on admission. Wound care provided as per surgeon recommendation. Patient clinically stabilized and was ready for discharge . FINAL DIAGNOSES: Acute on chronic renal failure Catheter associated urinary tract infection with MDR Providencia Dehydration, leading to hypernatremia Anemia of chronic kidney disease Gastroparesis secondary to diabetes mellitus Dysphagia, G-tube feeding Diabetes mellitus out of control Sacral decubitus ulcer stage III , present on admission Status post left AKA Seizure disorder Functional quadriplegia History of CVA with right hemiparesis Dementia DISCHARGE MEDICATIONS: See Medication Reconciliation list. DISCHARGE INSTRUCTIONS: Patient was discharged to the custodial facility. Follow up with medical doctor at the facility. I have been assigned to dictate discharge summary for this account. I was not involved in the patient's management. Radha Ortiz NP Dec 02, 2018 09:00
== END 2018-12-01 16:27 | DRG 698 ==
LOC: EDBD 15:20 → EMR 15:52 → 2E 16:12 → EDBEDREQ 16:40 → 2E 17:45 → 4E 11-26 17:50
DX: T83.511A Infection and inflammatory reaction due to indwelling urethral catheter, initial encounter (principal); L89.153 Pressure ulcer of sacral region, stage 3; R53.2 Functional quadriplegia; N17.9 Acute kidney failure, unspecified; E87.0 Hyperosmolality and hypernatremia; Z43.1 Encounter for attention to gastrostomy; I69.351 Hemiplegia and hemiparesis following cerebral infarction affecting right dominant side; M86.172 Other acute osteomyelitis, left ankle and foot; R40.3 Persistent vegetative state; E11.65 Type 2 diabetes mellitus with hyperglycemia; E11.21 Type 2 diabetes mellitus with diabetic nephropathy; Y84.6 Urinary catheterization as the cause of abnormal reaction of the patient, or of later complication, without mention of misadventure at the time of the procedure; N18.9 Chronic kidney disease, unspecified; E86.0 Dehydration; E11.43 Type 2 diabetes mellitus with diabetic autonomic (poly)neuropathy; K31.84 Gastroparesis; Z88.8 Allergy status to other drugs, medicaments and biological substances; Z86.718 Personal history of other venous thrombosis and embolism; Z89.612 Acquired absence of left leg above knee; R13.10 Dysphagia, unspecified; B96.89 Other specified bacterial agents as the cause of diseases classified elsewhere; Z16.24 Resistance to multiple antibiotics; G40.909 Epilepsy, unspecified, not intractable, without status epilepticus; D63.1 Anemia in chronic kidney disease; L89.610 Pressure ulcer of right heel, unstageable; Z79.4 Long term (current) use of insulin; I69.320 Aphasia following cerebral infarction
CPT/HCPCS: 36415; 71045; 80048; 80053; 80061; 80076; 81003; 82140; 82270; 82607; 82728; 82746; 82962; 82977; 83036; 83540; 83550; 83605; 83690; 83735; 83880; 84100; 84300; 84443; 84484; 84550; 85025; 85651; 86140; 87081; 87086; 87181; 93005; 99285; J1815; J2405; S5561

== ENCOUNTER 2019-01-15 09:38 | Inpatient (IN) | payer MEDICARE, MEDICAID ==
[~2019-01-15] VITALS: Ht 162.6 cm; Wt 77.6 kg
[~2019-01-15 09:38] MED LIST changes: +NITRO-DUR1 EAC1 TD; +RETACRIT3000 UNIT/ SUBQ; +SUCRALFATE1 GM GT
--- NOTE | 2019-01-15 10:21 | Emergency Room Report ---
History of Present Illness General Chief Complaint: Abnormal Labs Source: EMS Present Illness HPI Disclaimer: Please note that this report is being documented using [employer] technology. This can lead to erroneous entry secondary to incorrect interpretation by the dictating instrument. HPI: 83-year-old history of diabetes, UTI, osteomyelitis, left AKA, seizure disorder, dementia, dysphagia with G-tube dependent and functionally quadriplegic coming from long-term facility for abnormal lab work. During outpatient testing revealed she had an elevated BUN. Patient is nonverbal and cannot provide any additional information. She had similar presentation and was treated for urinary tract infection in November of this year. There is no reported fevers. She does not appear in distress. 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 EOMI. dry mucous membranes Cardiovascular: RRR. S1 and S2 normal. Resp: Normal work of breathing. No cough, wheezing or crackles appreciated Abdomen: Abdomen is soft, nondistended. Nontender. G-tube in place, no surrounding edema, erythema or leakage Skin: Surgical scars over the left AKA are clean dry and intact MSK: Left AKA site clear dry and intact. Some movement is present in all extremities. Increased tone in the upper extremities Neuro: Awake, nonverbal. Medical Decision Making Diagnostic Impression: Primary Impression: OREN (acute kidney injury) Additional Impressions: Hyperkalemia Dehydration ER Course 83-year-old female presents from a nursing facility for evaluation of abnormal outpatient lab work. Will evaluate for urinary tract infection and OREN again as her previous admissions and send screening labs. She will likely require admission. Will discuss with her PMD. IV fluids are started. Laboratory Tests Test 01/15/19 10:10 01/15/19 11:05 01/15/19 15:55 White Blood Count 12.3 K/UL (4.8-10.8) H Red Blood Count 3.11 M/UL (4.20-5.40) L Hemoglobin 9.8 G/DL (12.0-16.0) L Hematocrit 30.6 % (37.0-47.0) L Mean Corpuscular Volume 99 FL (80-99) Mean Corpuscular Hemoglobin 31.7 PG (27.0-31.0) H Mean Corpuscular Hemoglobin Concent 32.1 G/DL (32.0-36.0) Red Cell Distribution Width 12.5 % (11.6-14.8) Platelet Count 293 K/UL (150-450) Mean Platelet Volume 7.0 FL (6.5-10.1) Neutrophils (%) (Auto) 70.2 % (45.0-75.0) Lymphocytes (%) (Auto) 22.9 % (20.0-45.0) Monocytes (%) (Auto) 4.0 % (1.0-10.0) Eosinophils (%) (Auto) 2.1 % (0.0-3.0) Basophils (%) (Auto) 0.8 % (0.0-2.0) Sodium Level 138 MMOL/L (136-145) Pending Potassium Level 5.6 MMOL/L (3.5-5.1) H Pending Chloride Level 102 MMOL/L (98-107) Pending Carbon Dioxide Level 26 MMOL/L (21-32) Pending Anion Gap 10 mmol/L (5-15) Blood Urea Nitrogen 85 mg/dL (7-18) H Pending Creatinine 2.3 MG/DL (0.55-1.30) H Pending Estimate Glomerular Filtration Rate mL/min (>60) Pending Glucose Level 154 MG/DL (74-106) H Pending Uric Acid 7.8 MG/DL (2.6-7.2) H Calcium Level 9.7 MG/DL (8.5-10.1) Pending Total Bilirubin 0.3 MG/DL (0.2-1.0) Aspartate Amino Transferase (AST) 17 U/L (15-37) Alanine Aminotransferase (ALT) 13 U/L (12-78) Alkaline Phosphatase 123 U/L (46-116) H Total Creatine Kinase 96 U/L (26-308) Total Protein 10.3 G/DL (6.4-8.2) H Albumin 3.6 G/DL (3.4-5.0) Globulin 6.7 g/dL Albumin/Globulin Ratio 0.5 (1.0-2.7) L Urine Color Pale yellow Urine Appearance Clear Urine pH 7 (4.5-8.0) Urine Specific [place] 1.010 (1.005-1.035) Urine Protein 3+ (NEGATIVE) H Urine Glucose (UA) Negative (NEGATIVE) Urine Ketones Negative (NEGATIVE) Urine Blood 1+ (NEGATIVE) H Urine Nitrite Negative (NEGATIVE) Urine Bilirubin Negative (NEGATIVE) Urine Urobilinogen Normal MG/DL (0.0-1.0) Urine Leukocyte Esterase Negative (NEGATIVE) Urine RBC 2-4 /HPF (0 - 2) H Urine WBC 0-2 /HPF (0 - 2) Urine Squamous Epithelial Cells Few /LPF (NONE/OCC) Urine Bacteria Few /HPF (NONE) Reevaluation Time: 12:16 Last Vital Signs Date Time Temp Pulse Resp B/P (MAP) Pulse Ox O2 Delivery O2 Flow Rate FiO2 01/15/19 09:39 97.9 90 22 140/60 (86) 97 Nasal Cannula 3.0 Reevaluation Impression Patient does have an elevation in her BUN and creatinine above baseline. She is receiving IV fluids for an acute kidney injury. She is also slightly hyperkalemic and labs show evidence of dehydration. She will continue to receive IV fluid hydration and will be admitted to the medical service for further management Disposition: ADMITTED INPATIENT Condition: Serious Referrals: Estevan Orozco MD (PCP) Ezra Castellanos MD Jan 15, 2019 10:21
--- NOTE | 2019-01-15 10:30 | NUR ---
ED Nurse Note: pt arrives from [facility] via [facility] amb. for elevated bun. pt at normal entation does open eyes and withdraws from pain. nonverbal. pt with difficult to obtain iv access, labs drawn and sent. another rn attempting iv start pt placed on monitor nsr noted no ectopy. lungs with exp wheezes and dim bibasilar. pt noted to have gt site. dry oral mucosa.
[2019-01-15 10:31] LABS: BASOPHILS % (AUTO) 0.8 % (0.0-2.0); EOSINOPHILS % (AUTO) 2.1 % (0.0-3.0); HEMATOCRIT 30.6 % (37.0-47.0); HEMOGLOBIN 9.8 G/DL (12.0-16.0); LYMPHOCYTES % (AUTO) 22.9 % (20.0-45.0); MEAN CORPUSCULAR VOLUME 99 FL (80-99); NEUTROPHILS % (AUTO) 70.2 % (45.0-75.0); PLATELET COUNT 293 K/UL (150-450); RED BLOOD COUNT 3.11 M/UL (4.20-5.40); RED CELL DISTRIBUTION WIDTH 12.5 % (11.6-14.8); WHITE BLOOD COUNT 12.3 K/UL (4.8-10.8)
--- NOTE | 2019-01-15 10:33 | NUR ---
ED Nurse Note: alessandra lerma md
--- NOTE | 2019-01-15 10:35 | NUR ---
ED Nurse Note: pt noted to have AKA
[2019-01-15 10:54] LABS: ANION GAP 10 mmol/L (5-15); BLOOD UREA NITROGEN 85 mg/dL (7-18); CALCIUM 9.7 MG/DL (8.5-10.1); CARBON DIOXIDE 26 MMOL/L (21-32); CHLORIDE 102 MMOL/L (98-107); CREATININE 2.3 MG/DL (0.55-1.30); POTASSIUM 5.6 MMOL/L (3.5-5.1); SODIUM 138 MMOL/L (136-145)
[2019-01-15 10:59] LABS: ALANINE AMINOTRANSFERASE 13 U/L (12-78); ALBUMIN 3.6 G/DL (3.4-5.0); ALBUMIN/GLOBULIN RATIO 0.5 (1.0-2.7); ALKALINE PHOSPHATASE 123 U/L (46-116); ASPARTATE AMINO TRANSFERASE 17 U/L (15-37); BILIRUBIN,TOTAL 0.3 MG/DL (0.2-1.0)
[2019-01-15 11:25] LABS: APPEARANCE,URINE CLEAR; BILIRUBIN, URINE NEGATIVE (NEGATIVE); COLOR,URINE PALE YELLOW; GLUCOSE, URINE (UA) NEGATIVE (NEGATIVE); KETONES,URINE NEGATIVE (NEGATIVE); LEUKOCYTE ESTERASE ,URINE NEGATIVE (NEGATIVE); NITRITE,URINE NEGATIVE (NEGATIVE); PH,URINE 7 (4.5-8.0); PROTEIN,URINE 3+ (NEGATIVE); UROBILINOGEN,URINE NORMAL MG/DL (0.0-1.0)
[2019-01-15 11:46] VITALS: BP 111/86
[2019-01-15] MEDS ORDERED: SPIRONOLACTONE100 MG GT (12:16)
[2019-01-15] MEDS ORDERED: Sodium Polystyrene Sulfonate 15gm Powder ORAL ONE (12:30)
--- NOTE | 2019-01-15 12:36 | NUR ---
ED Nurse Note: [facility] CALLED FOR PT REPORT. REPORT GIVEN TO CHARGE NURSE AND LUIS RAYMOND. RN READY TO ACCEPT PT. WILL TRANSFER PT UP SHORTLY.
--- NOTE | 2019-01-15 12:40 | History and Physical ---
History of Present Illness General Date patient seen: Jan 15, 2019 Reason for Hospitalization: Abnormal Labs Present Illness HPI 83 year old female with hx of CVA, aphasic, for over decades bed bound, DM, HTN , seizures, multiple episodes of Decubiti and osteomyelitis and nosocomial infections, [facility] resident brought in to ER because of worsening renal function. Pt is in vegetative state and is kept alive with artificial feeding for yours. Allergies: Coded Allergies: METOCLOPRAMIDE (Verified Allergy, Unknown, 03/10/18) extrapyramidal Sx Medication History Scheduled Acetaminophen* (Tylenol Extra Strength*), 1,000 MG GT DAILY, (Reported) Amino Acids/Protein Hydrolys (Pro-Stat Liquid), 30 ML GT DAILY, (Reported) Amlodipine Besylate (Norvasc), 10 MG GT DAILY, (Reported) Apixaban (Eliquis), 2.5 MG GT BID, (Reported) Ascorbic Acid* (Vitamin C*), 500 MG GT DAILY, (Reported) Epoetin Wallace-Epbx (Retacrit), 10,000 UNIT SUBQ MON- Thur Ertapenem (Invanz), 1 GM IM DAILY Erickson E-Succ/Sulfisoxazole (Erythromycin-Sulfisox Susp), 50 MG GT Q6HR Insulin Detemir (Levemir Flexpen), 20 UNITS SUBQ Q12HR Lansoprazole* (Lansoprazole*), 30 MG GT BID Levetiracetam (Keppra), 1,000 MG GT Q12HR Multivitamin Liquid* (Multi-Delyn*), 5 ML GT DAILY, (Reported) Nitroglycerin (Nitro-Dur), 0.4 MG TD DAILY, (Reported) Polyethylene Glycol 3350* (Miralax*), 17 GM GT DAILY, (Reported) Spironolactone* (Spironolactone*), 12.5 MG GT DAILY, (Reported) Sucralfate* (Carafate*), 1 GM GT BID Tramadol Hcl* (Ultram*), 25 MG GT Q8HR Zinc Sulfate (Zinc Sulfate*), 220 MG GT DAILY, (Reported) Scheduled PRN Acetaminophen* (Acetaminophen 325MG Tablet*), 650 MG GT Q4H PRN for Mild Pain/ Temp > 100.5, (Reported) Hydralazine Hcl* (Hydralazine Hcl*), 25 MG GT Q4H PRN Tramadol Hcl* (Ultram*), 25 MG GT Q8HR PRN for Moderate Pain (Pain Scale 4-6), ( Reported) Patient History Healthcare decision maker Resuscitation status Advanced Directive on File Past Medical/Surgical History Past Medical/Surgical History: (1) Decubitus skin ulcer (2) Osteomyelitis of ankle or foot, left, acute (3) Diabetes (4) Dementia (5) Seizure disorder (6) Functional quadriplegia (7) G tube feedings (8) Gastroparesis due to DM (9) Anemia in CKD (chronic kidney disease) (10) UTI (urinary tract infection) Review of Systems All Other Systems: negative except mentioned in HPI Physical Exam General Appearance: WD/WN, no apparent distress Lines, tubes and drains: peripheral HEENT: normocephalic, atraumatic Neck: non-tender, normal alignment Respiratory/Chest: chest wall non-tender, lungs clear Breasts: no masses Cardiovascular/Chest: normal peripheral pulses Abdomen: normal bowel sounds Genitourinary/Rectal: normal genital exam Last 24 Hour Vital Signs Date Time Temp Pulse Resp B/P (MAP) Pulse Ox O2 Delivery O2 Flow Rate FiO2 01/15/19 11:46 77 26 111/86 95 Room Air 01/15/19 09:39 97.9 90 22 140/60 (86) 97 Nasal Cannula 3.0 Laboratory Tests Test 01/15/19 10:10 01/15/19 11:05 White Blood Count 12.3 K/UL (4.8-10.8) H Red Blood Count 3.11 M/UL (4.20-5.40) L Hemoglobin 9.8 G/DL (12.0-16.0) L Hematocrit 30.6 % (37.0-47.0) L Mean Corpuscular Volume 99 FL (80-99) Mean Corpuscular Hemoglobin 31.7 PG (27.0-31.0) H Mean Corpuscular Hemoglobin Concent 32.1 G/DL (32.0-36.0) Red Cell Distribution Width 12.5 % (11.6-14.8) Platelet Count 293 K/UL (150-450) Mean Platelet Volume 7.0 FL (6.5-10.1) Neutrophils (%) (Auto) 70.2 % (45.0-75.0) Lymphocytes (%) (Auto) 22.9 % (20.0-45.0) Monocytes (%) (Auto) 4.0 % (1.0-10.0) Eosinophils (%) (Auto) 2.1 % (0.0-3.0) Basophils (%) (Auto) 0.8 % (0.0-2.0) Sodium Level 138 MMOL/L (136-145) Potassium Level 5.6 MMOL/L (3.5-5.1) H Chloride Level 102 MMOL/L (98-107) Carbon Dioxide Level 26 MMOL/L (21-32) Anion Gap 10 mmol/L (5-15) Blood Urea Nitrogen 85 mg/dL (7-18) H Creatinine 2.3 MG/DL (0.55-1.30) H Estimat Glomerular Filtration Rate mL/min (>60) Glucose Level 154 MG/DL (74-106) H Calcium Level 9.7 MG/DL (8.5-10.1) Total Bilirubin 0.3 MG/DL (0.2-1.0) Aspartate Amino Transf (AST/SGOT) 17 U/L (15-37) Alanine Aminotransferase (ALT/SGPT) 13 U/L (12-78) Alkaline Phosphatase 123 U/L (46-116) H Total Protein 10.3 G/DL (6.4-8.2) H Albumin 3.6 G/DL (3.4-5.0) Globulin 6.7 g/dL Albumin/Globulin Ratio 0.5 (1.0-2.7) L Urine Color Pale yellow Urine Appearance Clear Urine pH 7 (4.5-8.0) Urine Specific [place] 1.010 (1.005-1.035) Urine Protein 3+ (NEGATIVE) H Urine Glucose (UA) Negative (NEGATIVE) Urine Ketones Negative (NEGATIVE) Urine Blood 1+ (NEGATIVE) H Urine Nitrite Negative (NEGATIVE) Urine Bilirubin Negative (NEGATIVE) Urine Urobilinogen Normal MG/DL (0.0-1.0) Urine Leukocyte Esterase Negative (NEGATIVE) Urine RBC 2-4 /HPF (0 - 2) H Urine WBC 0-2 /HPF (0 - 2) Urine Squamous Epithelial Cells Few /LPF (NONE/OCC) Urine Bacteria Few /HPF (NONE) Microbiology Date/Time Source Procedure Growth Status 9/12/19 11:15 Rectal Mucosa Received Height (Feet): 5 Height (Inches): 4.00 Weight (Pounds): 180 Medications Current Medications Medications (Trade) Dose Ordered Sig/Nancy Route PRN Reason Start Time Stop Time Status Last Admin Dose Admin Sodium Chloride 1,000 ml @ 999 mls/hr Q1H1M ONCE IV 01/15/19 12:30 01/15/19 13:30 01/15/19 12:26 Assessment/Plan Problem List: (1) Acute on chronic renal failure ICD Codes: N17.9 - Acute kidney failure, unspecified; N18.9 - Chronic kidney disease, unspecified SNOMED: 437051337 (2) OREN (acute kidney injury) ICD Codes: N17.9 - Acute kidney failure, unspecified SNOMED: 93155954, 7886431 (3) Hyperkalemia ICD Codes: E87.5 - Hyperkalemia SNOMED: 90998920, 8721111 (4) G tube feedings ICD Codes: Z93.1 - G tube feedings SNOMED: 755686697 (5) At high risk for aspiration ICD Codes: Z91.89 - Other specified personal risk factors, not elsewhere classified SNOMED: 842864540 (6) Diabetes ICD Codes: E11.9 - Type 2 diabetes mellitus without complications SNOMED: 35201276 (7) Right hemiparesis ICD Codes: G81.90 - Hemiplegia, unspecified affecting unspecified side SNOMED: 121827980 (8) Seizure disorder ICD Codes: G40.909 - Epilepsy, unspecified, not intractable, without status epilepticus SNOMED: 228834863 (9) Functional quadriplegia ICD Codes: R53.2 - Functional quadriplegia SNOMED: 836470862968315 (10) Dementia ICD Codes: F03.90 - Dementia SNOMED: 45951495 Assessment/Plan: check electrolytes iv fluids renal studies continue fdc meds wound care dvt prophylaxis the niece has not been amenable to "comfort care measures" in the past. Saira Lazcano MD Jan 15, 2019 12:40
[2019-01-15] MEDS ORDERED: Morphine Sulfate 2mg/ml Inj(IV/IM USE ONLY) IVP PRN (12:45)
[2019-01-15 12:54] VITALS: BP 110/74
--- NOTE | 2019-01-15 13:22 | Consultation ---
History of Present Illness General Date patient seen: Jan 15, 2019 Chief Complaint: Abnormal Labs Present Illness HPI 83 y/o F with hx of Dm2, UTI, OM, s/p L AKA, DVT, HTN, CVA w/ R side deficit, seizure disorder, dementia, UTI, dysphagia with G-tube dependent, non verbal, functionally quadriplegic, SNF resident presented to ED on 01/15 with abnormal outpatient lab wok showing elevated BUN No fevers Allergies: Coded Allergies: METOCLOPRAMIDE (Verified Allergy, Unknown, 03/10/18) extrapyramidal Sx Medication History Scheduled Acetaminophen* (Tylenol Extra Strength*), 1,000 MG GT DAILY, (Reported) Amino Acids/Protein Hydrolys (Pro-Stat Liquid), 30 ML GT DAILY, (Reported) Amlodipine Besylate (Norvasc), 10 MG GT DAILY, (Reported) Apixaban (Eliquis), 2.5 MG GT BID, (Reported) Ascorbic Acid* (Vitamin C*), 500 MG GT DAILY, (Reported) Epoetin Wallace-Epbx (Retacrit), 10,000 UNIT SUBQ MON- Thur Ertapenem (Invanz), 1 GM IM DAILY Erickson E-Succ/Sulfisoxazole (Erythromycin-Sulfisox Susp), 50 MG GT Q6HR Insulin Detemir (Levemir Flexpen), 20 UNITS SUBQ Q12HR Lansoprazole* (Lansoprazole*), 30 MG GT BID Levetiracetam (Keppra), 1,000 MG GT Q12HR Multivitamin Liquid* (Multi-Delyn*), 5 ML GT DAILY, (Reported) Nitroglycerin (Nitro-Dur), 0.4 MG TD DAILY, (Reported) Polyethylene Glycol 3350* (Miralax*), 17 GM GT DAILY, (Reported) Spironolactone* (Spironolactone*), 12.5 MG GT DAILY, (Reported) Sucralfate* (Carafate*), 1 GM GT BID Tramadol Hcl* (Ultram*), 25 MG GT Q8HR Zinc Sulfate (Zinc Sulfate*), 220 MG GT DAILY, (Reported) Scheduled PRN Acetaminophen* (Acetaminophen 325MG Tablet*), 650 MG GT Q4H PRN for Mild Pain/ Temp > 100.5, (Reported) Hydralazine Hcl* (Hydralazine Hcl*), 25 MG GT Q4H PRN Tramadol Hcl* (Ultram*), 25 MG GT Q8HR PRN for Moderate Pain (Pain Scale 4-6), ( Reported) Patient History Healthcare decision maker Resuscitation status Advanced Directive on File Patient History Narrative Pmhx: as above Shx: reviewed Fhx: non contributory Physical Exam Physical Exam Narrative General: Awake and alert, no acute distress, nonverbal HEENT: NC/AT. EOMI. dry mucous membranes Cardiovascular: RRR. S1 and S2 normal. Resp: Normal work of breathing. No cough, wheezing or crackles appreciated Abdomen: Abdomen is soft, nondistended. Nontender. G-tube in place, no surrounding edema, erythema or leakage Skin: Surgical scars over the left AKA are clean dry and intact MSK: Left AKA site clear dry and intact. Some movement is present in all extremities. Increased tone in the upper extremities Neuro: Awake, nonverbal. Last 24 Hour Vital Signs Date Time Temp Pulse Resp B/P (MAP) Pulse Ox O2 Delivery O2 Flow Rate FiO2 01/15/19 13:00 80 20 110/74 98 Room Air 01/15/19 12:54 87 24 110/74 100 Room Air 01/15/19 11:46 77 26 111/86 95 Room Air 01/15/19 10:30 90 22 Room Air 01/15/19 09:39 97.9 90 22 140/60 (86) 97 Nasal Cannula 3.0 Laboratory Tests Test 01/15/19 10:10 01/15/19 11:05 White Blood Count 12.3 K/UL (4.8-10.8) H Red Blood Count 3.11 M/UL (4.20-5.40) L Hemoglobin 9.8 G/DL (12.0-16.0) L Hematocrit 30.6 % (37.0-47.0) L Mean Corpuscular Volume 99 FL (80-99) Mean Corpuscular Hemoglobin 31.7 PG (27.0-31.0) H Mean Corpuscular Hemoglobin Concent 32.1 G/DL (32.0-36.0) Red Cell Distribution Width 12.5 % (11.6-14.8) Platelet Count 293 K/UL (150-450) Mean Platelet Volume 7.0 FL (6.5-10.1) Neutrophils (%) (Auto) 70.2 % (45.0-75.0) Lymphocytes (%) (Auto) 22.9 % (20.0-45.0) Monocytes (%) (Auto) 4.0 % (1.0-10.0) Eosinophils (%) (Auto) 2.1 % (0.0-3.0) Basophils (%) (Auto) 0.8 % (0.0-2.0) Sodium Level 138 MMOL/L (136-145) Potassium Level 5.6 MMOL/L (3.5-5.1) H Chloride Level 102 MMOL/L (98-107) Carbon Dioxide Level 26 MMOL/L (21-32) Anion Gap 10 mmol/L (5-15) Blood Urea Nitrogen 85 mg/dL (7-18) H Creatinine 2.3 MG/DL (0.55-1.30) H Estimat Glomerular Filtration Rate mL/min (>60) Glucose Level 154 MG/DL (74-106) H Calcium Level 9.7 MG/DL (8.5-10.1) Total Bilirubin 0.3 MG/DL (0.2-1.0) Aspartate Amino Transf (AST/SGOT) 17 U/L (15-37) Alanine Aminotransferase (ALT/SGPT) 13 U/L (12-78) Alkaline Phosphatase 123 U/L (46-116) H Total Protein 10.3 G/DL (6.4-8.2) H Albumin 3.6 G/DL (3.4-5.0) Globulin 6.7 g/dL Albumin/Globulin Ratio 0.5 (1.0-2.7) L Urine Color Pale yellow Urine Appearance Clear Urine pH 7 (4.5-8.0) Urine Specific [place] 1.010 (1.005-1.035) Urine Protein 3+ (NEGATIVE) H Urine Glucose (UA) Negative (NEGATIVE) Urine Ketones Negative (NEGATIVE) Urine Blood 1+ (NEGATIVE) H Urine Nitrite Negative (NEGATIVE) Urine Bilirubin Negative (NEGATIVE) Urine Urobilinogen Normal MG/DL (0.0-1.0) Urine Leukocyte Esterase Negative (NEGATIVE) Urine RBC 2-4 /HPF (0 - 2) H Urine WBC 0-2 /HPF (0 - 2) Urine Squamous Epithelial Cells Few /LPF (NONE/OCC) Urine Bacteria Few /HPF (NONE) Microbiology Date/Time Source Procedure Growth Status 01/15/19 11:15 Rectal Mucosa Received Height (Feet): 5 Height (Inches): 4.00 Weight (Pounds): 180 Medications Current Medications Medications (Trade) Dose Ordered Sig/Nancy Route PRN Reason Start Time Stop Time Status Last Admin Dose Admin Acetaminophen (Tylenol) 650 mg Q4H PRN ORAL fever 01/15/19 12:45 02/14/19 12:44 UNV Albuterol/ Ipratropium (Albuterol/ Ipratropium) 3 ml Q6HRT PRN HHN dyspnea 01/15/19 12:45 01/20/19 12:44 UNV Amlodipine Besylate (Norvasc) 10 mg DAILY GT 01/16/19 09:00 02/15/19 08:59 UNV Apixaban (Eliquis) 2.5 mg BID GT 01/15/19 18:00 02/14/19 17:59 UNV Clonidine HCl (Catapres Tab) 0.1 mg Q4H PRN ORAL For High Blood Pressure 01/15/19 12:45 02/14/19 12:44 UNV Dextrose (Dextrose 50%) 25 ml Q30M PRN IV Hypoglycemia 01/15/19 12:45 02/14/19 12:44 UNV Dextrose (Dextrose 50%) 50 ml Q30M PRN IV Hypoglycemia 01/15/19 12:45 02/14/19 12:44 UNV Dextrose (Dextrose 50%) 100 ml STAT ONCE IV 01/15/19 12:45 01/15/19 12:46 UNV Hydralazine HCl (Apresoline) 25 mg Q4H PRN GT sbp> 160 01/15/19 12:45 02/14/19 12:44 UNV Insulin Aspart (NovoLOG) BEFORE MEALS AND HS SUBQ 01/15/19 16:30 02/14/19 16:29 UNV Insulin Detemir (Levemir) 20 units Q12HR SUBQ 01/15/19 21:00 02/14/19 20:59 UNV Levetiracetam (Keppra) 1,000 mg Q12HR GT 01/15/19 21:00 02/14/19 20:59 UNV Morphine Sulfate (Morphine Sulfate) 1 mg EVERY 4 HOURS PRN IVP For Pain 01/15/19 12:45 01/22/19 12:44 UNV Ondansetron HCl (Zofran) 4 mg Q6H PRN IVP Nausea & Vomiting 01/15/19 12:45 02/14/19 12:44 UNV Polyethylene Glycol (Miralax) 17 gm HSPRN PRN ORAL Constipation 01/15/19 12:45 02/14/19 12:44 UNV Sodium Polystyrene Sulfonate (Kayexalate) 45 gm DAILY ORAL 01/16/19 09:00 01/19/19 08:59 UNV Sodium Chloride 1,000 ml @ 125 mls/hr Q8H ONCE IV 01/15/19 12:36 01/15/19 20:35 UNV Sodium Chloride 1,000 ml @ 999 mls/hr Q1H1M ONCE IV 01/15/19 12:30 01/15/19 13:30 01/15/19 12:26 Zolpidem Tartrate (Ambien) 5 mg HSPRN PRN ORAL Insomnia 01/15/19 12:45 01/22/19 12:44 UNV Assessment/Plan Assessment/Plan: Abx: None Assessment: Afebrile No leukocytosis -u/a no pyuria OREN on CKD Dm2 UTI hx of OM s/p L AKA hx of DVT HTN CVA w/ R side deficit seizure disorder dementia hx of UTI dysphagia with G-tube dependent non verbal functionally quadriplegic SNF resident Plan: -Continue to monitor off abx -f/u cx -Monitor CBC/CMP, temperatures -Renal F/u Thank you for this consultation. Will continue to follow along with you. Discussed with Nkechi Raines M.D. Jan 15, 2019 13:22
[2019-01-15] MEDS ORDERED: Acetaminophen 650mg/20.3ml GT PRN (14:30)
--- NOTE | 2019-01-15 14:30 | NUR ---
NURSE NOTES: patient arrived on the floor from ER. patient stable but unable to communicate or make needs known. call light next to patient within reach, bed in low and locked position. no obvious signs of distress noted. patient has IV in left hand saline locked. Will continue to monitor patient.
[2019-01-15 14:32] LABS: CREATINE KINASE 96 U/L (26-308)
[2019-01-15] MEDS ORDERED: Albuterol/Ipratropium 3ml neb HHN PRN (15:00)
[2019-01-15 16:00] VITALS: BP 144/82
--- NOTE | 2019-01-15 16:06 | Consultation ---
Consult Note Consult Note Patient known to me - Under my care at [facility]- Dr Lazcano PMD- Sentn for eval of worsenning renal failure and high K PAST MEDICAL HISTORY: Significant for diabetes mellitus, deep venous thrombosis, history of sepsis, urinary tract infection, history of left foot osteomyelitis for which the patient had above-knee amputation, history of pneumonia, seizure disorder, dementia, GT feeding, functional quadriplegia. MEDICATIONS LIST: per record examined data reviewed patient non verbal Assessment/Plan . Acute renal failure. presents with hyperkalemia . Underlying chronic renal failure. . Dehydration . Diabetes mellitus, . Other condition mentioned in the past history. . Reglan Allergy Hydrate- Keep BP and Bs in check discuss with family by Dr Lazcano for comfort care avoid Nephrotoxics Estevan Orozco MD Jan 15, 2019 16:06
[2019-01-15] MEDS ORDERED: NovoLOG Insulin Flexpen SUBQ SCH (16:30)
[2019-01-15 16:42] LABS: ANION GAP 14 mmol/L (5-15); BLOOD UREA NITROGEN 75 mg/dL (7-18); CALCIUM 8.7 MG/DL (8.5-10.1); CARBON DIOXIDE 22 MMOL/L (21-32); CHLORIDE 106 MMOL/L (98-107); CREATININE 2.1 MG/DL (0.55-1.30); POTASSIUM 5.1 MMOL/L (3.5-5.1); SODIUM 142 MMOL/L (136-145)
[2019-01-15] MEDS: NovoLOG Insulin Flexpen SUBQ SCH ×2 (17:12→20:58)
[2019-01-15] MEDS ORDERED: Erythromycin Ethylsuccinate 200mg/5ml Susp GT SCH (18:00)
[2019-01-15] MEDS: Eliquis 2.5mg tablet GT SCH (18:12)
--- NOTE | 2019-01-15 19:39 | NUR ---
HAND-OFF: Report given to handoff given to hilary kenyon.
[2019-01-15 20:00] VITALS: BP 125/52
--- NOTE | 2019-01-15 20:05 | NUR ---
NURSE NOTES: Received patient in bed, non verbal ,total care, on g tube feeding, tolerating well, IV site is clean dry and intact. Patient is on room air, no acute distress noted, VSS, afebrile. Call light is within reach, bed is lowered, locked and alarm is on, will continue to monitor for comfort and safety.
[2019-01-15] MEDS: levETIRAcetam 500mg/5ml Liquid GT SCH (20:56)
[2019-01-15] MEDS: Levemir Flexpen SUBQ SCH (20:58)
[2019-01-15] MEDS ORDERED: Zolpidem 5mg tab ORAL PRN (21:00)
[2019-01-15] MEDS ORDERED: Miralax 17gm pkt ORAL PRN (21:00)
[2019-01-16] VITALS: BP 115/60
[2019-01-16 04:00] VITALS: BP 90/68
[2019-01-16] MEDS: NovoLOG Insulin Flexpen SUBQ SCH ×4 (05:58→20:59)
--- NOTE | 2019-01-16 07:17 | NUR ---
HAND-OFF: Report given to Rodrigo SMITH.
[2019-01-16 07:22] LABS: HEMATOCRIT 27.9 % (37.0-47.0); MEAN CORPUSCULAR VOLUME 99 FL (80-99); PLATELET COUNT 280 K/UL (150-450); RED BLOOD COUNT 2.83 M/UL (4.20-5.40); RED CELL DISTRIBUTION WIDTH 12.9 % (11.6-14.8); WHITE BLOOD COUNT 7.7 K/UL (4.8-10.8)
--- NOTE | 2019-01-16 07:34 | NUR ---
NURSE NOTES: HANDOFF RECEIVED FROM LUIS STERN. PATIENT SLEEPING IN BED WITH TUBE FEEDING RUNNING AT PRESCRIBED RATE. NO OBVIOUS SIGNS OF DISTRESS. IV SITE IS CLEAN DRY AND INTACT AND SALINE LOCKED. BED IN LOW AND LOCKED POSITION, WILL CONTINUE TO MONITOR PATIENT.
[2019-01-16 08:00] VITALS: BP 123/61
[2019-01-16 08:13] LABS: ALANINE AMINOTRANSFERASE 13 U/L (12-78); ALBUMIN 3.5 G/DL (3.4-5.0); ALBUMIN/GLOBULIN RATIO 0.6 (1.0-2.7); ALKALINE PHOSPHATASE 115 U/L (46-116); ANION GAP 11 mmol/L (5-15); ASPARTATE AMINO TRANSFERASE 16 U/L (15-37); BILIRUBIN,TOTAL 0.3 MG/DL (0.2-1.0); BLOOD UREA NITROGEN 65 mg/dL (7-18); CALCIUM 9.4 MG/DL (8.5-10.1); CARBON DIOXIDE 26 MMOL/L (21-32); CHLORIDE 107 MMOL/L (98-107); CHOLESTEROL 145 MG/DL (< 200); HDL CHOLESTEROL 31 MG/DL (40-60); POTASSIUM 4.4 MMOL/L (3.5-5.1); SODIUM 144 MMOL/L (136-145); TRIGLYCERIDES 165 MG/DL (30-150)
[2019-01-16 08:19] LABS: % IRON SATURATION 26 % (15-50); IRON 56 ug/dL (50-175); TOTAL IRON BINDING CAPACITY 219 ug/dL (250-450)
[2019-01-16 08:30] LABS: FERRITIN 1080 NG/ML (8-388); LACTATE DEHYDROGENASE 198 U/L (81-234); PHOSPHORUS 5.8 MG/DL (2.5-4.9)
--- NOTE | 2019-01-16 08:33 | Nephrology Progress Note ---
Assessment/Plan Problem List: (1) Acute on chronic renal failure (2) Dehydration (3) Hyperkalemia (4) Seizure disorder (5) Dementia Assessment . Acute renal failure. presents with hyperkalemia . Underlying chronic renal failure. . Dehydration . Diabetes mellitus, . Other condition mentioned in the past history. . Reglan Allergy Plan Hydrate- Keep BP and Bs in check discuss with family by Dr Lazcano for comfort care avoid Nephrotoxics monitor renal parameters Subjective ROS Limited/Unobtainable: No Constitutional: Reports: malaise, other - non verbal Objective Objective Last 24 Hour Vital Signs Date Time Temp Pulse Resp B/P (MAP) Pulse Ox O2 Delivery O2 Flow Rate FiO2 01/16/19 04:00 96.8 70 20 90/68 (75) 70 01/16/19 00:00 99.0 85 21 115/60 (78) 85 01/15/19 22:19 88 18 96 Room Air 21 01/15/19 21:24 Room Air 01/15/19 20:00 98.6 89 21 125/52 (76) 89 01/15/19 16:00 97.9 74 20 144/82 (102) 98 01/15/19 14:26 Room Air 01/15/19 13:00 80 20 110/74 98 Room Air 01/15/19 12:54 87 24 110/74 100 Room Air 01/15/19 11:46 77 26 111/86 95 Room Air 01/15/19 10:30 90 22 Room Air 01/15/19 09:39 97.9 90 22 140/60 (86) 97 Nasal Cannula 3.0 Intake and Output 01/15/19 01/16/19 18:59 06:59 Intake Total 530 ml 775 ml Balance 530 ml 775 ml Intake Oral 0 ml Free Water 100 ml IV Total 500 ml 375 ml Tube Feeding 30 ml 300 ml Laboratory Tests 01/15/19 10:10: White Blood Count 12.3H, Red Blood Count 3.11L, Hemoglobin 9.8L, Hematocrit 30.6L, Mean Corpuscular Volume 99, Mean Corpuscular Hemoglobin 31.7H, Mean Corpuscular Hemoglobin Concent 32.1, Red Cell Distribution Width 12.5, Platelet Count 293, Mean Platelet Volume 7.0, Neutrophils (%) (Auto) 70.2, Lymphocytes (% ) (Auto) 22.9, Monocytes (%) (Auto) 4.0, Eosinophils (%) (Auto) 2.1, Basophils ( %) (Auto) 0.8, Sodium Level 138, Potassium Level 5.6H, Chloride Level 102, Carbon Dioxide Level 26, Anion Gap 10, Blood Urea Nitrogen 85H, Creatinine 2.3H , Estimat Glomerular Filtration Rate , Glucose Level 154H, Uric Acid 7.8H, Calcium Level 9.7, Total Bilirubin 0.3, Aspartate Amino Transf (AST/SGOT) 17, Alanine Aminotransferase (ALT/SGPT) 13, Alkaline Phosphatase 123H, Total Creatine Kinase 96, Total Protein 10.3H, Albumin 3.6, Globulin 6.7, Albumin/ Globulin Ratio 0.5L 01/15/19 11:05: Urine Color Pale yellow, Urine Appearance Clear, Urine pH 7, Urine Specific [place] 1.010, Urine Protein 3+H, Urine Glucose (UA) Negative, Urine Ketones Negative, Urine Blood 1+H, Urine Nitrite Negative, Urine Bilirubin Negative, Urine Urobilinogen Normal, Urine Leukocyte Esterase Negative, Urine RBC 2-4H, Urine WBC 0-2, Urine Squamous Epithelial Cells Few, Urine Bacteria Few 01/15/19 15:55: Sodium Level 142, Potassium Level 5.1, Chloride Level 106, Carbon Dioxide Level 22, Anion Gap 14, Blood Urea Nitrogen 75H, Creatinine 2.1H, Estimat Glomerular Filtration Rate , Glucose Level 143H, Calcium Level 8.7 01/15/19 23:19: Urine Eosinophils None seen, Urine Random Sodium 65, Urine Potassium Timed 27 01/16/19 06:13: White Blood Count 7.7, Red Blood Count 2.83L, Hemoglobin 9.0L, Hematocrit 27.9L , Mean Corpuscular Volume 99, Mean Corpuscular Hemoglobin 32.0H, Mean Corpuscular Hemoglobin Concent 32.4, Red Cell Distribution Width 12.9, Platelet Count 280, Mean Platelet Volume 6.8, Neutrophils (%) (Auto) , Lymphocytes (%) ( Auto) , Monocytes (%) (Auto) , Eosinophils (%) (Auto) , Basophils (%) (Auto) , Neutrophils % (Manual) [Pending], Lymphocytes % (Manual) [Pending], Platelet Estimate [Pending], Platelet Morphology [Pending], Erythrocyte Sedimentation Rate [Pending], Reticulocyte Count [Pending], Prothrombin Time 10.6, Prothromb Time International Ratio 1.0, Activated Partial Thromboplast Time 25, Sodium Level 144, Potassium Level 4.4, Chloride Level 107, Carbon Dioxide Level 26, Anion Gap 11, Blood Urea Nitrogen 65H, Creatinine 2.0H, Estimat Glomerular Filtration Rate , Glucose Level 116H, Hemoglobin A1c 6.1H, Calcium Level 9.4, Phosphorus Level [Pending], Magnesium Level [Pending], Iron Level 56, Total Iron Binding Capacity 219L, Percent Iron Saturation 26, Unsaturated Iron Binding 163, Ferritin [Pending], Total Bilirubin 0.3, Aspartate Amino Transf ( AST/SGOT) 16, Alanine Aminotransferase (ALT/SGPT) 13, Alkaline Phosphatase 115, Lactate Dehydrogenase [Pending], C-Reactive Protein, Quantitative [Pending], Total Protein 9.7H, Albumin 3.5, Globulin 6.2, Albumin/Globulin Ratio 0.6L, Triglycerides Level 165H, Cholesterol Level 145, LDL Cholesterol 94, HDL Cholesterol 31L, Cholesterol/HDL Ratio 4.7H, Carcinoembryonic Antigen [Pending] , Vitamin B12 Level [Pending], Folate [Pending], Thyroid Stimulating Hormone ( TSH) 1.304 Height (Feet): 5 Height (Inches): 4.00 Weight (Pounds): 180 General Appearance: no apparent distress Cardiovascular: normal rate Respiratory/Chest: decreased breath sounds Abdomen: soft, distended Genitourinary/Rectal: other - PEG Estevan Orozco MD Jan 16, 2019 08:33
[2019-01-16] MEDS ORDERED: Sodium Polystyrene Sulfonate 15gm Powder ORAL SCH (09:00)
[2019-01-16] MEDS: levETIRAcetam 500mg/5ml Liquid GT SCH ×2 (09:53→20:56)
[2019-01-16] MEDS: Eliquis 2.5mg tablet GT SCH ×2 (09:54→17:27)
[2019-01-16] MEDS: Aspirin Baby 81mg GT SCH (09:54)
[2019-01-16] MEDS: Levemir Flexpen SUBQ SCH ×2 (09:56→20:58)
--- NOTE | 2019-01-16 10:44 | NUR ---
RD ASSESSMENT & RECOMMENDATIONS SEE CARE ACTIVITY FOR COMPLETE ASSESSMENT DAILY ESTIMATED NEEDS: Needs based on DM, wounds, TF [employer], overweight (Adj wt 58kg) 25-30 kcals/kg 5394-9348 total kcals 1.25-1.5 g protein/kg 73-87 g total protein 25-30 mL/kg 3542-5135 total fluid mLs NUTRITION DIAGNOSIS: 1) Increased protein, micronutrient needs r/t wound healing as evidenced by admitted w/ buttocks wounds, pending evaluation. 2) Swallowing difficulty r/t dysphagia as evidenced by pt is PEG dep, on GT feeding. CURRENT TF:Glucerna 1.2 @ 30ml/hr x 24 hrs ENTERAL NUTRITION RECOMMENDATIONS: Glucerna 1.2 @ 55ml/hr x 24 hrs to provide 1320ml, 1584kcal, 79g prot, 1063ml free water * Increase goal rate to 55ml/hr x 24 hrs to meet 100% est kcal/prot needs. * Increase 10ml q 4-6 hrs as tolerated to goal rate. * HOB over 30 degrees/ H2O flush of 120ml q 6 hrs ADDITIONAL RECOMMENDATIONS: 1) Weekly calibrated bed scale wts 2) Wound healing: add Vit C 250mg QD : add Damian 1pkt BID 3) Monitor lytes daily, replete as needed 4) Monitor K closely, need for TF change (admitted w/ elev K, now wnl) .
[2019-01-16 12:00] VITALS: BP 127/77
[2019-01-16] MEDS: Erythromycin Ethylsuccinate 200mg/5ml Susp GT SCH ×3 (12:05→23:50)
--- NOTE | 2019-01-16 12:19 | Pulmonology Progress Note ---
Assessment/Plan Problems: (1) Acute on chronic renal failure (2) OREN (acute kidney injury) (3) Hyperkalemia (4) G tube feedings (5) At high risk for aspiration (6) Diabetes (7) Right hemiparesis (8) Seizure disorder (9) Functional quadriplegia (10) Dementia Assessment/Plan looks comfortable check electrolytes iv fluids renal studies continue assisted meds wound care dvt prophylaxis social service consult Subjective ROS Limited/Unobtainable: Yes Constitutional: Reports: no symptoms HEENT: Repors: no symptoms Allergies: Coded Allergies: METOCLOPRAMIDE (Verified Allergy, Unknown, 03/10/18) extrapyramidal Sx Objective Last 24 Hour Vital Signs Date Time Temp Pulse Resp B/P (MAP) Pulse Ox O2 Delivery O2 Flow Rate FiO2 01/16/19 12:00 97.9 88 18 127/77 (94) 98 01/16/19 09:54 89 123/61 01/16/19 09:00 Room Air 01/16/19 08:00 98.4 89 22 123/61 (81) 01/16/19 07:50 83 17 96 Room Air 21 01/16/19 04:00 96.8 70 20 90/68 (75) 70 01/16/19 00:00 99.0 85 21 115/60 (78) 85 01/15/19 22:19 88 18 96 Room Air 21 01/15/19 21:24 Room Air 01/15/19 20:00 98.6 89 21 125/52 (76) 89 01/15/19 16:00 97.9 74 20 144/82 (102) 98 01/15/19 14:26 Room Air 01/15/19 13:00 80 20 110/74 98 Room Air 01/15/19 12:54 87 24 110/74 100 Room Air Intake and Output 01/15/19 01/16/19 19:00 07:00 Intake Total 785 ml 520 ml Balance 785 ml 520 ml Intake Oral 0 ml Free Water 100 ml IV Total 625 ml 250 ml Tube Feeding 60 ml 270 ml General Appearance: WD/WN HEENT: atraumatic, mucous membranes moist Respiratory/Chest: lungs clear, normal breath sounds Cardiovascular: normal peripheral pulses, normal rate, regular rhythm Abdomen: soft, non tender, no organomegaly Genitourinary: normal external genitalia Extremities: no clubbing Skin: no rash Microbiology Date/Time Source Procedure Growth Status 01/15/19 11:15 Rectal Mucosa Received Laboratory Tests 01/15/19 15:55: Sodium Level 142, Potassium Level 5.1, Chloride Level 106, Carbon Dioxide Level 22, Anion Gap 14, Blood Urea Nitrogen 75H, Creatinine 2.1H, Estimat Glomerular Filtration Rate , Glucose Level 143H, Calcium Level 8.7 01/15/19 23:19: Urine Eosinophils None seen, Urine Random Sodium 65, Urine Potassium Timed 27 01/16/19 06:13: Sodium Level 144, Potassium Level 4.4, Chloride Level 107, Carbon Dioxide Level 26, Anion Gap 11, Blood Urea Nitrogen 65H, Creatinine 2.0H, Estimat Glomerular Filtration Rate , Glucose Level 116H, Calcium Level 9.4, White Blood Count 7.7, Red Blood Count 2.83L, Hemoglobin 9.0L, Hematocrit 27.9L, Mean Corpuscular Volume 99, Mean Corpuscular Hemoglobin 32.0H, Mean Corpuscular Hemoglobin Concent 32.4, Red Cell Distribution Width 12.9, Platelet Count 280, Mean Platelet Volume 6.8, Neutrophils (%) (Auto) , Lymphocytes (%) (Auto) , Monocytes (%) (Auto) , Eosinophils (%) (Auto) , Basophils (%) (Auto) , Differential Total Cells Counted 100, Neutrophils % (Manual) 57, Lymphocytes % ( Manual) 36, Monocytes % (Manual) 4, Eosinophils % (Manual) 3, Basophils % ( Manual) 0, Band Neutrophils 0, Platelet Estimate Adequate, Platelet Morphology Normal, Red Blood Cell Morphology Normal, Erythrocyte Sedimentation Rate 117H, Reticulocyte Count 1.7, Prothrombin Time 10.6, Prothromb Time International Ratio 1.0, Activated Partial Thromboplast Time 25, Hemoglobin A1c 6.1H, Phosphorus Level 5.8H, Magnesium Level 2.8H, Iron Level 56, Total Iron Binding Capacity 219L, Percent Iron Saturation 26, Unsaturated Iron Binding 163, Ferritin 1080H, Total Bilirubin 0.3, Aspartate Amino Transf (AST/SGOT) 16, Alanine Aminotransferase (ALT/SGPT) 13, Alkaline Phosphatase 115, Lactate Dehydrogenase 198, C-Reactive Protein, Quantitative 4.4H, Total Protein 9.7H, Albumin 3.5, Globulin 6.2, Albumin/Globulin Ratio 0.6L, Triglycerides Level 165H , Cholesterol Level 145, LDL Cholesterol 94, HDL Cholesterol 31L, Cholesterol/ HDL Ratio 4.7H, Carcinoembryonic Antigen [Pending], Vitamin B12 Level 1121H, Folate 23.9, Thyroid Stimulating Hormone (TSH) 1.304 Current Medications Medications (Trade) Dose Ordered Sig/Nancy Route PRN Reason Start Time Stop Time Status Last Admin Dose Admin Acetaminophen (Tylenol) 650 mg Q4H PRN GT T>100.5 01/15/19 14:30 02/14/19 14:29 Albuterol/ Ipratropium (Albuterol/ Ipratropium) 3 ml Q6H PRN HHN dyspnea 01/15/19 15:00 01/20/19 14:59 Amlodipine Besylate (Norvasc) 10 mg DAILY GT 01/16/19 09:00 02/15/19 08:59 01/16/19 09:54 Apixaban (Eliquis) 2.5 mg BID GT 01/15/19 18:00 02/14/19 17:59 01/16/19 09:54 Aspirin (ASA) 81 mg DAILY GT 01/16/19 09:00 02/15/19 08:59 01/16/19 09:54 Dextrose (Dextrose 50%) 25 ml Q30M PRN IV Hypoglycemia 01/15/19 15:00 02/14/19 14:59 Dextrose (Dextrose 50%) 50 ml Q30M PRN IV Hypoglycemia 01/15/19 15:00 02/14/19 14:59 Erythromycin (Erickson-Ped) 50 mg Q6HR GT 01/16/19 12:00 01/23/19 11:59 01/16/19 12:05 Hydralazine HCl (Apresoline) 25 mg Q4H PRN GT sbp> 160mmHg 01/15/19 12:45 02/14/19 12:44 Insulin Aspart (NovoLOG) BEFORE MEALS AND HS SUBQ 01/15/19 16:30 02/14/19 16:29 01/16/19 11:58 Insulin Detemir (Levemir) 20 units Q12HR SUBQ 01/15/19 21:00 02/14/19 20:59 01/16/19 09:56 Lansoprazole (Prevacid) 30 mg BID GT 01/15/19 18:00 02/14/19 17:59 01/16/19 09:53 Levetiracetam (Keppra) 1,000 mg Q12HR GT 01/15/19 21:00 02/14/19 20:59 01/16/19 09:53 Morphine Sulfate (Morphine Sulfate) 1 mg Q4H PRN IVP PAIN 4-10 01/15/19 12:45 01/22/19 12:44 Ondansetron HCl (Zofran) 4 mg Q6H PRN IVP Nausea & Vomiting 01/15/19 14:30 02/14/19 14:29 Polyethylene Glycol (Miralax) 17 gm HSPRN PRN ORAL Constipation 01/15/19 21:00 02/14/19 20:59 Zolpidem Tartrate (Ambien) 5 mg HSPRN PRN ORAL Insomnia 01/15/19 21:00 01/22/19 20:59 Saira Lazcano MD Jan 16, 2019 12:19
--- NOTE | 2019-01-16 14:56 | NUR ---
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 97.8 HR 90 RR 22 B/P 140/60 WBC 12.3 K 5.6 BUN 83 CR 2.3 ALK PHOS 123 3L NC O2 SAT @ 98% IS: KAYEXALATE GT REGULAR INSULIN IV D50 IV IV BOLUS NS ADMITTED TO MED/SURG MED/SURG STATUS DCP RETURN TO [facility]
--- NOTE | 2019-01-16 15:29 | Infectious Diseases Prog Note ---
Assessment/Plan Assessment/Plan Abx: None Assessment: Afebrile Mild leukocytosis, SP- likely reactive -u/a no pyuria OREN on CKD; improving Dm2 UTI hx of OM s/p L AKA hx of DVT HTN CVA w/ R side deficit seizure disorder dementia hx of UTI dysphagia with G-tube dependent non verbal functionally quadriplegic SNF resident Plan: -Continue to monitor off abx -f/u cx -Monitor CBC/CMP, temperatures -Renal F/u Thank you for this consultation. Will continue to follow along with you. Discussed with RN. Subjective Allergies: Coded Allergies: METOCLOPRAMIDE (Verified Allergy, Unknown, 03/10/18) extrapyramidal Sx Subjective afebrile leukocytosis resolved Cr improving Objective Vital Signs Last 24 Hour Vital Signs Date Time Temp Pulse Resp B/P (MAP) Pulse Ox O2 Delivery O2 Flow Rate FiO2 01/16/19 12:00 97.9 88 18 127/77 (94) 98 01/16/19 09:54 89 123/61 01/16/19 09:00 Room Air 01/16/19 08:00 98.4 89 22 123/61 (81) 01/16/19 07:50 83 17 96 Room Air 21 01/16/19 04:00 96.8 70 20 90/68 (75) 70 01/16/19 00:00 99.0 85 21 115/60 (78) 85 01/15/19 22:19 88 18 96 Room Air 21 01/15/19 21:24 Room Air 01/15/19 20:00 98.6 89 21 125/52 (76) 89 01/15/19 16:00 97.9 74 20 144/82 (102) 98 Height (Feet): 5 Height (Inches): 4.00 Weight (Pounds): 180 Objective General: Awake and alert, no acute distress, nonverbal HEENT: NC/AT. EOMI. dry mucous membranes Cardiovascular: RRR. S1 and S2 normal. Resp: Normal work of breathing. No cough, wheezing or crackles appreciated Abdomen: Abdomen is soft, nondistended. Nontender. G-tube in place, no surrounding edema, erythema or leakage Skin: Surgical scars over the left AKA are clean dry and intact MSK: Left AKA site clear dry and intact. Some movement is present in all extremities. Increased tone in the upper extremities Neuro: Awake, nonverbal. Microbiology Date/Time Source Procedure Growth Status 01/15/19 11:15 Rectal Mucosa Received Laboratory Tests Test 01/15/19 15:55 01/15/19 23:19 01/16/19 06:13 Sodium Level 142 MMOL/L (136-145) 144 MMOL/L (136-145) Potassium Level 5.1 MMOL/L (3.5-5.1) 4.4 MMOL/L (3.5-5.1) Chloride Level 106 MMOL/L (98-107) 107 MMOL/L (98-107) Carbon Dioxide Level 22 MMOL/L (21-32) 26 MMOL/L (21-32) Anion Gap 14 mmol/L (5-15) 11 mmol/L (5-15) Blood Urea Nitrogen 75 mg/dL (7-18) H 65 mg/dL (7-18) H Creatinine 2.1 MG/DL (0.55-1.30) H 2.0 MG/DL (0.55-1.30) H Estimat Glomerular Filtration Rate mL/min (>60) mL/min (>60) Glucose Level 143 MG/DL (74-106) H 116 MG/DL (74-106) H Calcium Level 8.7 MG/DL (8.5-10.1) 9.4 MG/DL (8.5-10.1) Urine Eosinophils None seen (NONE SEEN) Urine Random Sodium 65 mmol/L (20-110) Urine Potassium Timed 27 mmol/L (12-62) White Blood Count 7.7 K/UL (4.8-10.8) Red Blood Count 2.83 M/UL (4.20-5.40) L Hemoglobin 9.0 G/DL (12.0-16.0) L Hematocrit 27.9 % (37.0-47.0) L Mean Corpuscular Volume 99 FL (80-99) Mean Corpuscular Hemoglobin 32.0 PG (27.0-31.0) H Mean Corpuscular Hemoglobin Concent 32.4 G/DL (32.0-36.0) Red Cell Distribution Width 12.9 % (11.6-14.8) Platelet Count 280 K/UL (150-450) Mean Platelet Volume 6.8 FL (6.5-10.1) Neutrophils (%) (Auto) % (45.0-75.0) Lymphocytes (%) (Auto) % (20.0-45.0) Monocytes (%) (Auto) % (1.0-10.0) Eosinophils (%) (Auto) % (0.0-3.0) Basophils (%) (Auto) % (0.0-2.0) Differential Total Cells Counted 100 Neutrophils % (Manual) 57 % (45-75) Lymphocytes % (Manual) 36 % (20-45) Monocytes % (Manual) 4 % (1-10) Eosinophils % (Manual) 3 % (0-3) Basophils % (Manual) 0 % (0-2) Band Neutrophils 0 % (0-8) Other Cell Type Pathologist review Platelet Estimate Adequate Platelet Morphology Normal Red Blood Cell Morphology Normal Erythrocyte Sedimentation Rate 117 MM/HR (0-30) H Reticulocyte Count 1.7 % (0.5-2.0) Prothrombin Time 10.6 SEC (9.30-11.50) Prothromb Time International Ratio 1.0 (0.9-1.1) Activated Partial Thromboplast Time 25 SEC (23-33) Hemoglobin A1c 6.1 % (4.3-6.0) H Phosphorus Level 5.8 MG/DL (2.5-4.9) H Magnesium Level 2.8 MG/DL (1.8-2.4) H Iron Level 56 ug/dL (50-175) Total Iron Binding Capacity 219 ug/dL (250-450) L Percent Iron Saturation 26 % (15-50) Unsaturated Iron Binding 163 ug/dL (112-346) Ferritin 1080 NG/ML (8-388) H Total Bilirubin 0.3 MG/DL (0.2-1.0) Aspartate Amino Transf (AST/SGOT) 16 U/L (15-37) Alanine Aminotransferase (ALT/SGPT) 13 U/L (12-78) Alkaline Phosphatase 115 U/L (46-116) Lactate Dehydrogenase 198 U/L (81-234) C-Reactive Protein, Quantitative 4.4 mg/dL (0.00-0.90) H Total Protein 9.7 G/DL (6.4-8.2) H Albumin 3.5 G/DL (3.4-5.0) Globulin 6.2 g/dL Albumin/Globulin Ratio 0.6 (1.0-2.7) L Triglycerides Level 165 MG/DL (30-150) H Cholesterol Level 145 MG/DL (< 200) LDL Cholesterol 94 mg/dL (<100) HDL Cholesterol 31 MG/DL (40-60) L Cholesterol/HDL Ratio 4.7 (3.3-4.4) H Carcinoembryonic Antigen Pending Vitamin B12 Level 1121 PG/ML (193-986) H Folate 23.9 NG/ML (8.6-58.9) Thyroid Stimulating Hormone (TSH) 1.304 uiU/mL (0.358-3.740) Current Medications Medications (Trade) Dose Ordered Sig/Nancy Route PRN Reason Start Time Stop Time Status Last Admin Dose Admin Acetaminophen (Tylenol) 650 mg Q4H PRN GT T>100.5 01/15/19 14:30 02/14/19 14:29 Albuterol/ Ipratropium (Albuterol/ Ipratropium) 3 ml Q6H PRN HHN dyspnea 01/15/19 15:00 01/20/19 14:59 Amlodipine Besylate (Norvasc) 10 mg DAILY GT 01/16/19 09:00 02/15/19 08:59 01/16/19 09:54 Apixaban (Eliquis) 2.5 mg BID GT 01/15/19 18:00 02/14/19 17:59 01/16/19 09:54 Aspirin (ASA) 81 mg DAILY GT 01/16/19 09:00 02/15/19 08:59 01/16/19 09:54 Dextrose (Dextrose 50%) 25 ml Q30M PRN IV Hypoglycemia 01/15/19 15:00 02/14/19 14:59 Dextrose (Dextrose 50%) 50 ml Q30M PRN IV Hypoglycemia 01/15/19 15:00 02/14/19 14:59 Erythromycin (Erikcson-Ped) 50 mg Q6HR GT 01/16/19 12:00 01/23/19 11:59 01/16/19 12:05 Hydralazine HCl (Apresoline) 25 mg Q4H PRN GT sbp> 160mmHg 01/15/19 12:45 02/14/19 12:44 Insulin Aspart (NovoLOG) BEFORE MEALS AND HS SUBQ 01/15/19 16:30 10/12/19 16:29 01/16/19 11:58 Insulin Detemir (Levemir) 20 units Q12HR SUBQ 01/15/19 21:00 02/14/19 20:59 01/16/19 09:56 Lansoprazole (Prevacid) 30 mg BID GT 01/15/19 18:00 02/14/19 17:59 01/16/19 09:53 Levetiracetam (Keppra) 1,000 mg Q12HR GT 01/15/19 21:00 02/14/19 20:59 01/16/19 09:53 Morphine Sulfate (Morphine Sulfate) 1 mg Q4H PRN IVP PAIN 4-10 01/15/19 12:45 01/22/19 12:44 Ondansetron HCl (Zofran) 4 mg Q6H PRN IVP Nausea & Vomiting 01/15/19 14:30 02/14/19 14:29 Polyethylene Glycol (Miralax) 17 gm HSPRN PRN ORAL Constipation 01/15/19 21:00 02/14/19 20:59 Zolpidem Tartrate (Ambien) 5 mg HSPRN PRN ORAL Insomnia 01/15/19 21:00 01/22/19 20:59 Nkechi Stevenson M.D. Jan 16, 2019 15:29
[2019-01-16 16:00] VITALS: BP 112/40
--- NOTE | 2019-01-16 17:13 | Consultation ---
History of Present Illness General Date patient seen: Jan 16, 2019 Time patient seen: 17:07 Chief Complaint: Abnormal Labs Referring physician: Jaleesa Reason for Consultation: Sacral, heel ulcers Present Illness HPI Asked to evaluate this 83yof who was admitted to [facility] for worsening renal function. She has a h/o stroke and is aphasic on TF. It is unclear how long she has had her wounds. She is not able to give history. She had a leukocytosis that has resolved. Allergies: Coded Allergies: METOCLOPRAMIDE (Verified Allergy, Unknown, 03/10/18) extrapyramidal Sx Medication History Scheduled Acetaminophen* (Tylenol Extra Strength*), 1,000 MG GT DAILY, (Reported) Amino Acids/Protein Hydrolys (Pro-Stat Liquid), 30 ML GT DAILY, (Reported) Amlodipine Besylate (Norvasc), 10 MG GT DAILY, (Reported) Apixaban (Eliquis), 2.5 MG GT BID, (Reported) Ascorbic Acid* (Vitamin C*), 500 MG GT DAILY, (Reported) Epoetin Wallace-Epbx (Retacrit), 10,000 UNIT SUBQ MON- Thur Ertapenem (Invanz), 1 GM IM DAILY Erickson E-Succ/Sulfisoxazole (Erythromycin-Sulfisox Susp), 50 MG GT Q6HR Insulin Detemir (Levemir Flexpen), 20 UNITS SUBQ Q12HR Lansoprazole* (Lansoprazole*), 30 MG GT BID Levetiracetam (Keppra), 1,000 MG GT Q12HR Multivitamin Liquid* (Multi-Delyn*), 5 ML GT DAILY, (Reported) Nitroglycerin (Nitro-Dur), 0.4 MG TD DAILY, (Reported) Polyethylene Glycol 3350* (Miralax*), 17 GM GT DAILY, (Reported) Spironolactone* (Spironolactone*), 12.5 MG GT DAILY, (Reported) Sucralfate* (Carafate*), 1 GM GT BID Tramadol Hcl* (Ultram*), 25 MG GT Q8HR Zinc Sulfate (Zinc Sulfate*), 220 MG GT DAILY, (Reported) Scheduled PRN Acetaminophen* (Acetaminophen 325MG Tablet*), 650 MG GT Q4H PRN for Mild Pain/ Temp > 100.5, (Reported) Hydralazine Hcl* (Hydralazine Hcl*), 25 MG GT Q4H PRN Tramadol Hcl* (Ultram*), 25 MG GT Q8HR PRN for Moderate Pain (Pain Scale 4-6), ( Reported) Patient History Limited by: medical condition History Provided By: Medical Record Healthcare decision maker Resuscitation status Advanced Directive on File Past Medical/Surgical History Past Medical/Surgical History: (1) Diabetes (2) Seizure disorder (3) Right hemiparesis Review of Systems ROS Narrative Unable to obtain due to patient;s condition Physical Exam General Appearance: no apparent distress, obese Lines, tubes and drains: peripheral, gtube Abdomen: soft Skin Exam: other - No open wounds on sacrum or right heel. Neurologic: unresponsiveness Musculoskeletal: other - Left aka Last 24 Hour Vital Signs Date Time Temp Pulse Resp B/P (MAP) Pulse Ox O2 Delivery O2 Flow Rate FiO2 01/16/19 12:00 97.9 88 18 127/77 (94) 98 01/16/19 09:54 89 123/61 01/16/19 09:00 Room Air 01/16/19 08:00 98.4 89 22 123/61 (81) 01/16/19 07:50 83 17 96 Room Air 21 01/16/19 04:00 96.8 70 20 90/68 (75) 70 01/16/19 00:00 99.0 85 21 115/60 (78) 85 01/15/19 22:19 88 18 96 Room Air 21 01/15/19 21:24 Room Air 01/15/19 20:00 98.6 89 21 125/52 (76) 89 Intake and Output 01/15/19 01/16/19 19:00 07:00 Intake Total 785 ml 520 ml Balance 785 ml 520 ml Intake Oral 0 ml Free Water 100 ml IV Total 625 ml 250 ml Tube Feeding 60 ml 270 ml Laboratory Tests Test 01/15/19 23:19 01/16/19 06:13 Urine Eosinophils None seen (NONE SEEN) Urine Random Sodium 65 mmol/L (20-110) Urine Potassium Timed 27 mmol/L (12-62) White Blood Count 7.7 K/UL (4.8-10.8) Red Blood Count 2.83 M/UL (4.20-5.40) L Hemoglobin 9.0 G/DL (12.0-16.0) L Hematocrit 27.9 % (37.0-47.0) L Mean Corpuscular Volume 99 FL (80-99) Mean Corpuscular Hemoglobin 32.0 PG (27.0-31.0) H Mean Corpuscular Hemoglobin Concent 32.4 G/DL (32.0-36.0) Red Cell Distribution Width 12.9 % (11.6-14.8) Platelet Count 280 K/UL (150-450) Mean Platelet Volume 6.8 FL (6.5-10.1) Neutrophils (%) (Auto) % (45.0-75.0) Lymphocytes (%) (Auto) % (20.0-45.0) Monocytes (%) (Auto) % (1.0-10.0) Eosinophils (%) (Auto) % (0.0-3.0) Basophils (%) (Auto) % (0.0-2.0) Differential Total Cells Counted 100 Neutrophils % (Manual) 57 % (45-75) Lymphocytes % (Manual) 36 % (20-45) Monocytes % (Manual) 4 % (1-10) Eosinophils % (Manual) 3 % (0-3) Basophils % (Manual) 0 % (0-2) Band Neutrophils 0 % (0-8) Other Cell Type Pathologist review Platelet Estimate Adequate Platelet Morphology Normal Red Blood Cell Morphology Normal Erythrocyte Sedimentation Rate 117 MM/HR (0-30) H Reticulocyte Count 1.7 % (0.5-2.0) Prothrombin Time 10.6 SEC (9.30-11.50) Prothromb Time International Ratio 1.0 (0.9-1.1) Activated Partial Thromboplast Time 25 SEC (23-33) Sodium Level 144 MMOL/L (136-145) Potassium Level 4.4 MMOL/L (3.5-5.1) Chloride Level 107 MMOL/L (98-107) Carbon Dioxide Level 26 MMOL/L (21-32) Anion Gap 11 mmol/L (5-15) Blood Urea Nitrogen 65 mg/dL (7-18) H Creatinine 2.0 MG/DL (0.55-1.30) H Estimat Glomerular Filtration Rate mL/min (>60) Glucose Level 116 MG/DL (74-106) H Hemoglobin A1c 6.1 % (4.3-6.0) H Calcium Level 9.4 MG/DL (8.5-10.1) Phosphorus Level 5.8 MG/DL (2.5-4.9) H Magnesium Level 2.8 MG/DL (1.8-2.4) H Iron Level 56 ug/dL (50-175) Total Iron Binding Capacity 219 ug/dL (250-450) L Percent Iron Saturation 26 % (15-50) Unsaturated Iron Binding 163 ug/dL (112-346) Ferritin 1080 NG/ML (8-388) H Total Bilirubin 0.3 MG/DL (0.2-1.0) Aspartate Amino Transf (AST/SGOT) 16 U/L (15-37) Alanine Aminotransferase (ALT/SGPT) 13 U/L (12-78) Alkaline Phosphatase 115 U/L (46-116) Lactate Dehydrogenase 198 U/L (81-234) C-Reactive Protein, Quantitative 4.4 mg/dL (0.00-0.90) H Total Protein 9.7 G/DL (6.4-8.2) H Albumin 3.5 G/DL (3.4-5.0) Globulin 6.2 g/dL Albumin/Globulin Ratio 0.6 (1.0-2.7) L Triglycerides Level 165 MG/DL (30-150) H Cholesterol Level 145 MG/DL (< 200) LDL Cholesterol 94 mg/dL (<100) HDL Cholesterol 31 MG/DL (40-60) L Cholesterol/HDL Ratio 4.7 (3.3-4.4) H Carcinoembryonic Antigen Pending Vitamin B12 Level 1121 PG/ML (193-986) H Folate 23.9 NG/ML (8.6-58.9) Thyroid Stimulating Hormone (TSH) 1.304 uiU/mL (0.358-3.740) Height (Feet): 5 Height (Inches): 4.00 Weight (Pounds): 180 Medications Current Medications Medications (Trade) Dose Ordered Sig/Nancy Route PRN Reason Start Time Stop Time Status Last Admin Dose Admin Acetaminophen (Tylenol) 650 mg Q4H PRN GT T>100.5 01/15/19 14:30 02/14/19 14:29 Albuterol/ Ipratropium (Albuterol/ Ipratropium) 3 ml Q6H PRN HHN dyspnea 01/15/19 15:00 01/20/19 14:59 Amlodipine Besylate (Norvasc) 10 mg DAILY GT 01/16/19 09:00 02/15/19 08:59 01/16/19 09:54 Apixaban (Eliquis) 2.5 mg BID GT 01/15/19 18:00 02/14/19 17:59 01/16/19 09:54 Aspirin (ASA) 81 mg DAILY GT 01/16/19 09:00 02/15/19 08:59 01/16/19 09:54 Dextrose (Dextrose 50%) 25 ml Q30M PRN IV Hypoglycemia 01/15/19 15:00 02/14/19 14:59 Dextrose (Dextrose 50%) 50 ml Q30M PRN IV Hypoglycemia 01/15/19 15:00 02/14/19 14:59 Erythromycin (Erickson-Ped) 50 mg Q6HR GT 01/16/19 12:00 01/23/19 11:59 01/16/19 12:05 Hydralazine HCl (Apresoline) 25 mg Q4H PRN GT sbp> 160mmHg 01/15/19 12:45 02/14/19 12:44 Insulin Aspart (NovoLOG) BEFORE MEALS AND HS SUBQ 01/15/19 16:30 02/14/19 16:29 01/16/19 11:58 Insulin Detemir (Levemir) 20 units Q12HR SUBQ 01/15/19 21:00 02/14/19 20:59 01/16/19 09:56 Lansoprazole (Prevacid) 30 mg BID GT 01/15/19 18:00 02/14/19 17:59 01/16/19 09:53 Levetiracetam (Keppra) 1,000 mg Q12HR GT 01/15/19 21:00 02/14/19 20:59 01/16/19 09:53 Morphine Sulfate (Morphine Sulfate) 1 mg Q4H PRN IVP PAIN 4-10 01/15/19 12:45 01/22/19 12:44 Ondansetron HCl (Zofran) 4 mg Q6H PRN IVP Nausea & Vomiting 01/15/19 14:30 02/14/19 14:29 Polyethylene Glycol (Miralax) 17 gm HSPRN PRN ORAL Constipation 01/15/19 21:00 02/14/19 20:59 Zolpidem Tartrate (Ambien) 5 mg HSPRN PRN ORAL Insomnia 01/15/19 21:00 01/22/19 20:59 Assessment/Plan Status: stable Assessment/Plan: Patient with no active open wounds. Recommend standard pressure injury prevention protocol with offloading as well as padding of the foot. Can use skin barrier cream on sacral area. No need for debridement or other surgical intervention at this time. Thank you. Zelalem Borrego MD Jan 16, 2019 17:13
--- NOTE | 2019-01-16 17:16 | NUR ---
NURSE NOTES:WOUND CARE NOTES:Pt presented on admission with resolving pressure injury sacrum.Hyperpigmentation at sacrum with small wound at sacrococcygeal area which is pink and dry (L)1.5cm x (W)0.5cm.Incontinence associated dermatitis noted to perineum and perinanal area. Scattered satellite lesions noted. No exudate noted. Stable dry eschar noted to R hallux . No erythema or fluctuance periwound.(L01.8cm x (W)2.2cm. Stable dry eschar medial R heel .Center of Heel is pink and dry.(L)5.5cm x (W)6cm. No other skin concerns noted. Tx.Plan: Apply Moisture Barrier to perineum and buttocks with each incontinence care. Cover Sacrum with Optifoam drsg. Change every 3 days and prn. Apply Cavilon Skin Barrier to R heel and R hallux. Change every 7 days and prn. APM/KALE Mattress. Reposition at least every 2hours or as tolerated. Off-load R heel with pillow.
[2019-01-16] MEDS ORDERED: HUMALOG100 UNIT/1 SUBQ (18:39)
[2019-01-16] MEDS ORDERED: LEVETIRACE100 MG/1 M GT (18:39)
[2019-01-16] MEDS ORDERED: CRANBERRY450 M5 GT (18:39)
[2019-01-16] MEDS ORDERED: SPIRONOLACTONE25 MG GT (18:39)
[2019-01-16] MEDS ORDERED: LORAZEPAM1 MG GT (18:39)
--- NOTE | 2019-01-16 19:26 | NUR ---
NURSE NOTES: Received patient in bed, total care, non verbal, responsive to tactile stimuli, VSS, afebrile, IV site is clean dry and intact. Call light is within reach, bed is lowered, locked, alarm is on, will continue to monitor for safety and comfort. Gtube feeding is tolerated well, Glucerna 1.2 at 55 cc/hr.
--- NOTE | 2019-01-16 19:50 | NUR ---
HAND-OFF: Report given to hilary kenyon.
[2019-01-16 20:00] VITALS: BP 112/60
[2019-01-17] VITALS: BP 96/67
[2019-01-17 04:00] VITALS: BP 96/68
[2019-01-17] MEDS: Erythromycin Ethylsuccinate 200mg/5ml Susp GT SCH ×3 (05:41→17:03)
[2019-01-17] MEDS: NovoLOG Insulin Flexpen SUBQ SCH ×4 (05:42→21:00)
--- NOTE | 2019-01-17 07:28 | NUR ---
HAND-OFF: Report given to Sarmad SMITH.
--- NOTE | 2019-01-17 07:56 | NUR ---
NURSE NOTES: Patient non-verbal; on room air, no sign of distress and shortness of breath; no sing of chest pain; side rails up and padded for seizure percussion; Tub-feeding Glucerna 1.2 running at 55cc, no residual; head of the bed elevated, and side rails up x2, breaks engaged, bed at lowest position; IV Left-Wrist 20G flushes well; dressing changed by PM nurse; will keep monitoring.
[2019-01-17 08:00] VITALS: BP 112/61
[2019-01-17] MEDS: Levemir Flexpen SUBQ SCH ×2 (08:46→21:34)
[2019-01-17] MEDS: Aspirin Baby 81mg GT SCH (08:47)
[2019-01-17] MEDS: levETIRAcetam 500mg/5ml Liquid GT SCH ×2 (08:48→21:35)
[2019-01-17] MEDS: Eliquis 2.5mg tablet GT SCH ×2 (08:49→17:02)
--- NOTE | 2019-01-17 08:58 | Pulmonology Progress Note ---
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 PLAN OF CARE MS floor IVF, monitor renal parameters, lytes, correct lytes prn , creat with small trend down nephro follows O2 HHN prn CXR stable asp precautions, GT feeding, monitor tolerance leuk resolved, keep off abx as per ID recs a/PLT therapy with ASA, lipid panel with elevated TG anemia w/up c/w ACD, high ferritin stool OB, CEA GI prophylaxis BP management with CCB, BS management with Levemir and SSI, HgA1c at goal seizure precautions, continent Keppra bowel regimen wound care supportive care plastic surgeon seen and evaluated, no active open wounds no need for debridement or other surgical intervention at this time consider comfort care case discussed and evaluated by supervising physician case discussed and evaluated by supervising physician Subjective Allergies: Coded Allergies: METOCLOPRAMIDE (Verified Allergy, Unknown, 03/10/18) extrapyramidal Sx Subjective leuk resolved, no fevers pulse ox stable on RA creat with small trend down Objective Last 24 Hour Vital Signs Date Time Temp Pulse Resp B/P (MAP) Pulse Ox O2 Delivery O2 Flow Rate FiO2 01/17/19 04:00 97.9 92 21 96/68 (77) 01/17/19 00:00 97.9 90 21 96/67 (77) 01/16/19 21:24 Room Air 01/16/19 20:26 79 18 96 Room Air 21 01/16/19 20:00 98.8 93 21 112/60 (77) 93 01/16/19 16:00 97.0 78 17 112/40 (64) 92 01/16/19 12:00 97.9 88 18 127/77 (94) 98 01/16/19 09:54 89 123/61 01/16/19 09:00 Room Air Intake and Output 01/16/19 01/17/19 18:59 06:59 Intake Total 320 ml Output Total 600 ml Balance -600 ml 320 ml Free Water 100 ml Tube Feeding 220 ml Output Urine Total 600 ml General Appearance: other - bedridden chronically ill looking AA female in NAD HEENT: normocephalic, atraumatic, anicteric Respiratory/Chest: lungs clear - with moderate air exchange , no respiratory distress, no accessory muscle use Cardiovascular: normal rate Abdomen: normal bowel sounds, soft, non tender, other - G tube Extremities: other - L AKA Skin: no rash, other - st 2 R heel decub ulcer Neurologic/Psychiatric: abnormal gait - bedridden , other - poorly responsive Musculoskeletal: atrophy Microbiology Date/Time Source Procedure Growth Status 01/15/19 11:15 Nasal Nares MRSA Culture - Final NO METHICILLIN RESISTANT STAPH AUREUS... Complete 01/15/19 11:15 Rectum - Final NO CARBAPENEM-RESISTANT ENTEROBACTERI... Complete 01/15/19 11:15 Rectal Mucosa Received Current Medications Medications (Trade) Dose Ordered Sig/Nancy Route PRN Reason Start Time Stop Time Status Last Admin Dose Admin Acetaminophen (Tylenol) 650 mg Q4H PRN GT T>100.5 01/15/19 14:30 02/14/19 14:29 Albuterol/ Ipratropium (Albuterol/ Ipratropium) 3 ml Q6H PRN HHN dyspnea 01/15/19 15:00 01/20/19 14:59 Amlodipine Besylate (Norvasc) 10 mg DAILY GT 01/16/19 09:00 02/15/19 08:59 01/16/19 09:54 Apixaban (Eliquis) 2.5 mg BID GT 01/15/19 18:00 02/14/19 17:59 01/16/19 17:27 Aspirin (ASA) 81 mg DAILY GT 01/16/19 09:00 02/15/19 08:59 01/16/19 09:54 Dextrose (Dextrose 50%) 25 ml Q30M PRN IV Hypoglycemia 01/15/19 15:00 02/14/19 14:59 Dextrose (Dextrose 50%) 50 ml Q30M PRN IV Hypoglycemia 01/15/19 15:00 02/14/19 14:59 Erythromycin (Erickson-Ped) 50 mg Q6HR GT 01/16/19 12:00 01/23/19 11:59 01/17/19 05:41 Hydralazine HCl (Apresoline) 25 mg Q4H PRN GT sbp> 160mmHg 01/15/19 12:45 02/14/19 12:44 Insulin Aspart (NovoLOG) BEFORE MEALS AND HS SUBQ 01/15/19 16:30 02/14/19 16:29 01/17/19 05:42 Insulin Detemir (Levemir) 20 units Q12HR SUBQ 01/15/19 21:00 02/14/19 20:59 01/16/19 20:58 Lansoprazole (Prevacid) 30 mg BID GT 01/15/19 18:00 02/14/19 17:59 01/16/19 17:27 Levetiracetam (Keppra) 1,000 mg Q12HR GT 01/15/19 21:00 02/14/19 20:59 01/16/19 20:56 Morphine Sulfate (Morphine Sulfate) 1 mg Q4H PRN IVP PAIN 4-10 01/15/19 12:45 01/22/19 12:44 Ondansetron HCl (Zofran) 4 mg Q6H PRN IVP Nausea & Vomiting 01/15/19 14:30 02/14/19 14:29 Polyethylene Glycol (Miralax) 17 gm HSPRN PRN ORAL Constipation 01/15/19 21:00 02/14/19 20:59 Zolpidem Tartrate (Ambien) 5 mg HSPRN PRN ORAL Insomnia 01/15/19 21:00 01/22/19 20:59 Radha Ortiz CONSTRUCTION PROJECT ENGINEER Jan 17, 2019 08:58
--- NOTE | 2019-01-17 10:43 | Nephrology Progress Note ---
Assessment/Plan Status: stable Assessment/Plan: A/P (1) Acute on chronic renal failure - Cr down to 2 on IVFs - AM labs pending (2) Dehydration- TFs and prn IVFs (3) Hyperkalemia- resolved - am labs pending (4) Seizure disorder (5) Dementia Subjective Date patient seen: Jan 17, 2019 Time patient seen: 10:41 ROS Limited/Unobtainable: Yes Allergies: Coded Allergies: METOCLOPRAMIDE (Verified Allergy, Unknown, 03/10/18) extrapyramidal Sx Subjective Patient nonverbal. In no overt distress Objective Last 24 Hour Vital Signs Date Time Temp Pulse Resp B/P (MAP) Pulse Ox O2 Delivery O2 Flow Rate FiO2 01/17/19 09:00 Room Air 01/17/19 08:48 80 112/61 01/17/19 08:00 98.0 80 17 112/61 (78) 100 01/17/19 04:00 97.9 92 21 96/68 (77) 01/17/19 00:00 97.9 90 21 96/67 (77) 01/16/19 21:24 Room Air 01/16/19 20:26 79 18 96 Room Air 21 01/16/19 20:00 98.8 93 21 112/60 (77) 93 01/16/19 16:00 97.0 78 17 112/40 (64) 92 01/16/19 12:00 97.9 88 18 127/77 (94) 98 Intake and Output 01/16/19 01/17/19 18:59 06:59 Intake Total 320 ml Output Total 600 ml Balance -600 ml 320 ml Free Water 100 ml Tube Feeding 220 ml Output Urine Total 600 ml Height (Feet): 5 Height (Inches): 4.00 Weight (Pounds): 180 General Appearance: no apparent distress, confused EENT: normal ENT inspection Neck: normal alignment, supple Cardiovascular: normal rate, regular rhythm Respiratory/Chest: lungs clear, normal breath sounds Abdomen: non tender, soft Edema: no edema noted Arm (L), no edema noted Arm (R), no edema noted Leg (L), no edema noted Leg (R), no edema noted Pedal (L), no edema noted Pedal (R), no edema noted Generalized Jalen Springer MD Jan 17, 2019 10:43
[2019-01-17 12:00] VITALS: BP 111/56
[2019-01-17 12:04] LABS: ANION GAP 13 mmol/L (5-15); BLOOD UREA NITROGEN 49 mg/dL (7-18); CALCIUM 9.1 MG/DL (8.5-10.1); CARBON DIOXIDE 24 MMOL/L (21-32); CHLORIDE 112 MMOL/L (98-107); CREATININE 1.8 MG/DL (0.55-1.30); SODIUM 149 MMOL/L (136-145)
--- NOTE | 2019-01-17 12:57 | Infectious Diseases Prog Note ---
Assessment/Plan Assessment/Plan Abx: None Assessment: Afebrile Mild leukocytosis, SP- likely reactive -u/a no pyuria OREN on CKD; improving Dm2 UTI hx of OM s/p L AKA hx of DVT HTN CVA w/ R side deficit seizure disorder dementia hx of UTI dysphagia with G-tube dependent non verbal functionally quadriplegic SNF resident Plan: -Continue to monitor off abx -f/u cx -Monitor CBC/CMP, temperatures -Renal F/u Thank you for this consultation. Will continue to follow along with you. Discussed with RN. Subjective Allergies: Coded Allergies: METOCLOPRAMIDE (Verified Allergy, Unknown, 03/10/18) extrapyramidal Sx Subjective afebrile no leukocytosis Objective Vital Signs Last 24 Hour Vital Signs Date Time Temp Pulse Resp B/P (MAP) Pulse Ox O2 Delivery O2 Flow Rate FiO2 01/17/19 09:00 Room Air 01/17/19 08:48 80 112/61 01/17/19 08:00 98.0 80 17 112/61 (78) 100 01/17/19 04:00 97.9 92 21 96/68 (77) 01/17/19 00:00 97.9 90 21 96/67 (77) 01/16/19 21:24 Room Air 01/16/19 20:26 79 18 96 Room Air 21 01/16/19 20:00 98.8 93 21 112/60 (77) 93 01/16/19 16:00 97.0 78 17 112/40 (64) 92 Height (Feet): 5 Height (Inches): 4.00 Weight (Pounds): 180 Objective General: Awake and alert, no acute distress, nonverbal HEENT: NC/AT. EOMI. dry mucous membranes Cardiovascular: RRR. S1 and S2 normal. Resp: Normal work of breathing. No cough, wheezing or crackles appreciated Abdomen: Abdomen is soft, nondistended. Nontender. G-tube in place, no surrounding edema, erythema or leakage Skin: Surgical scars over the left AKA are clean dry and intact MSK: Left AKA site clear dry and intact. Some movement is present in all extremities. Increased tone in the upper extremities Neuro: Awake, nonverbal. Microbiology Date/Time Source Procedure Growth Status 01/15/19 11:15 Nasal Nares MRSA Culture - Final NO METHICILLIN RESISTANT STAPH AUREUS... Complete 01/15/19 11:15 Rectum - Final NO CARBAPENEM-RESISTANT ENTEROBACTERI... Complete 01/15/19 11:15 Rectal Mucosa VRE Culture - Final Enterococcus Faecium - Vre Complete Laboratory Tests Test 01/17/19 11:30 Sodium Level 149 MMOL/L (136-145) H Potassium Level 4.0 MMOL/L (3.5-5.1) Chloride Level 112 MMOL/L (98-107) H Carbon Dioxide Level 24 MMOL/L (21-32) Anion Gap 13 mmol/L (5-15) Blood Urea Nitrogen 49 mg/dL (7-18) H Creatinine 1.8 MG/DL (0.55-1.30) H Estimat Glomerular Filtration Rate mL/min (>60) Glucose Level 115 MG/DL (74-106) H Calcium Level 9.1 MG/DL (8.5-10.1) Current Medications Medications (Trade) Dose Ordered Sig/Nancy Route PRN Reason Start Time Stop Time Status Last Admin Dose Admin Acetaminophen (Tylenol) 650 mg Q4H PRN GT T>100.5 01/15/19 14:30 02/14/19 14:29 Albuterol/ Ipratropium (Albuterol/ Ipratropium) 3 ml Q6H PRN HHN dyspnea 01/15/19 15:00 01/20/19 14:59 Amlodipine Besylate (Norvasc) 10 mg DAILY GT 01/16/19 09:00 02/15/19 08:59 01/17/19 08:48 Apixaban (Eliquis) 2.5 mg BID GT 01/15/19 18:00 02/14/19 17:59 01/17/19 08:49 Aspirin (ASA) 81 mg DAILY GT 01/16/19 09:00 02/15/19 08:59 01/17/19 08:47 Dextrose (Dextrose 50%) 25 ml Q30M PRN IV Hypoglycemia 01/15/19 15:00 02/14/19 14:59 Dextrose (Dextrose 50%) 50 ml Q30M PRN IV Hypoglycemia 01/15/19 15:00 02/14/19 14:59 Erythromycin (Erickson-Ped) 50 mg Q6HR GT 01/16/19 12:00 01/23/19 11:59 01/17/19 12:00 Hydralazine HCl (Apresoline) 25 mg Q4H PRN GT sbp> 160mmHg 01/15/19 12:45 02/14/19 12:44 Insulin Aspart (NovoLOG) BEFORE MEALS AND HS SUBQ 01/15/19 16:30 02/14/19 16:29 01/17/19 12:38 Insulin Detemir (Levemir) 20 units Q12HR SUBQ 01/15/19 21:00 02/14/19 20:59 01/17/19 08:46 Lansoprazole (Prevacid) 30 mg BID GT 01/15/19 18:00 02/14/19 17:59 01/17/19 08:47 Levetiracetam (Keppra) 1,000 mg Q12HR GT 01/15/19 21:00 02/14/19 20:59 01/17/19 08:48 Morphine Sulfate (Morphine Sulfate) 1 mg Q4H PRN IVP PAIN 4-10 01/15/19 12:45 01/22/19 12:44 Ondansetron HCl (Zofran) 4 mg Q6H PRN IVP Nausea & Vomiting 01/15/19 14:30 02/14/19 14:29 Polyethylene Glycol (Miralax) 17 gm HSPRN PRN ORAL Constipation 01/15/19 21:00 02/14/19 20:59 Zolpidem Tartrate (Ambien) 5 mg HSPRN PRN ORAL Insomnia 01/15/19 21:00 01/22/19 20:59 Nkechi Stevenson M.D. Jan 17, 2019 12:57
[2019-01-17 16:00] VITALS: BP 96/60
--- NOTE | 2019-01-17 19:31 | NUR ---
HAND-OFF: Report given to ADOLFO Fuentes.
[2019-01-17 20:00] VITALS: BP 96/72
--- NOTE | 2019-01-17 20:00 | NUR ---
NURSE NOTES: RECEIVED PATIENT LYING IN BED, AWAKE, NON VERBAL, ASPIRATION/FALL PRECAUTIONS OBSERVED. ALL NEEDS ANTICIPATED AND MET BY NURSING STAFF/REQUIRE MAX ASSIST WITH ADL'S. SEIZURE PRECAUTIONS/SIDE RAILS PADDED. NO SIGNS AND SYMPTOMS OF ACUTE CARDIO RESPIRATORY DISTRESS/SHORTNESS OF BREATH, TRACE EDEMA NOTED. TOLERATING G TUBE FEEDING, NO GASTRIC RESIDUAL ASPIRATED, NO REPORT OF N/V/D. CASTILLO CATHETER INTACT, DRAINING YELLOW URINE VIA GRAVITY, NO SIGNS OF HEMATURIA. REPOSITIONED FOR COMFORT/PRESSURE RELIEF, TOLERATED WELL. SIDE RAILS UP X3/BED IN LOWEST POSITION FOR SAFETY. BED ALARM ACTIVATED FOR PREVENTIVE MEASURES. CONTINUE WITH CURRENT PLAN OF CARE. NAD.
[2019-01-18] VITALS (7 sets, daily range): BP systolic 101–160; BP diastolic 44–78
[2019-01-18] MEDS: Erythromycin Ethylsuccinate 200mg/5ml Susp GT SCH ×5 (01:09→23:20)
[2019-01-18] MEDS: NovoLOG Insulin Flexpen SUBQ SCH ×4 (06:02→23:26)
--- NOTE | 2019-01-18 06:04 | NUR ---
NURSE NOTES: BLOOD GLUCOSE LEVEL MONITORED VIA GLUCOMETER WITH RESULT 126MG/DL, ASYMPTOMATIC, ADM. 2 UNITS NOVOLOG INSULIN SUBCUT, TOLERATED WELL, NO ADVERSE REACTION NOTED AFTER 15 MINUTES.
[2019-01-18 07:30] LABS: BASOPHILS % (AUTO) 0.9 % (0.0-2.0); EOSINOPHILS % (AUTO) 2.4 % (0.0-3.0); HEMATOCRIT 30.8 % (37.0-47.0); HEMOGLOBIN 10.2 G/DL (12.0-16.0); LYMPHOCYTES % (AUTO) 27.3 % (20.0-45.0); MEAN CORPUSCULAR VOLUME 97 FL (80-99); MONOCYTES % (AUTO) 4.9 % (1.0-10.0); NEUTROPHILS % (AUTO) 64.5 % (45.0-75.0); PLATELET COUNT 267 K/UL (150-450); RED BLOOD COUNT 3.18 M/UL (4.20-5.40); RED CELL DISTRIBUTION WIDTH 12.5 % (11.6-14.8); WHITE BLOOD COUNT 7.9 K/UL (4.8-10.8)
--- NOTE | 2019-01-18 07:30 | NUR ---
NURSE NOTES: Received report from Jody SMITH. AOX0 and unable to make needs known. No c/o pain or no acute distress noted. IV line in LFA intact and asymptomatic SL. Gtube site intact and running with Glucerna 1.2 @50ml/hr. HOB elevated with 45degree and no signs of aspiration noted. No SOB noted. Call light within easy reach. Side rails x3 up for safety. Will continue to plan of care.
--- NOTE | 2019-01-18 07:30 | NUR ---
HAND-OFF: Report given to LUIS ELAINE.
[2019-01-18 08:15] LABS: ANION GAP 15 mmol/L (5-15); BLOOD UREA NITROGEN 47 mg/dL (7-18); CALCIUM 9.6 MG/DL (8.5-10.1); CARBON DIOXIDE 21 MMOL/L (21-32); CHLORIDE 110 MMOL/L (98-107); CREATININE 1.9 MG/DL (0.55-1.30); POTASSIUM 4.2 MMOL/L (3.5-5.1); SODIUM 146 MMOL/L (136-145)
[2019-01-18] MEDS: levETIRAcetam 500mg/5ml Liquid GT SCH ×2 (08:58→21:47)
[2019-01-18] MEDS: Eliquis 2.5mg tablet GT SCH ×2 (08:58→17:54)
[2019-01-18] MEDS: Aspirin Baby 81mg GT SCH (08:58)
[2019-01-18] MEDS: Levemir Flexpen SUBQ SCH ×2 (09:03→21:52)
--- NOTE | 2019-01-18 10:30 | Pulmonology Progress Note ---
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 PLAN OF CARE MS floor IVF, monitor renal parameters, lytes, correct lytes prn , creat slowly trending down nephro follows O2 HHN prn CXR in am asp precautions, GT feeding, monitor tolerance leuk resolved, keep off abx as per ID recs a/PLT therapy with ASA, lipid panel with elevated TG anemia w/up c/w ACD, high ferritin stool OB, CEA GI prophylaxis BP management with CCB, BS management with Levemir and SSI, HgA1c at goal seizure precautions, continent Keppra bowel regimen wound care supportive care plastic surgeon seen and evaluated, no active open wounds no need for debridement or other surgical intervention at this time consider comfort care case discussed and evaluated by supervising physician case discussed and evaluated by supervising physician Subjective Allergies: Coded Allergies: METOCLOPRAMIDE (Verified Allergy, Unknown, 03/10/18) extrapyramidal Sx Subjective leuk resolved, no fevers pulse ox stable on RA creat down to 1.9 this am Objective Last 24 Hour Vital Signs Date Time Temp Pulse Resp B/P (MAP) Pulse Ox O2 Delivery O2 Flow Rate FiO2 01/18/19 08:59 82 147/59 01/18/19 08:00 97.8 82 24 147/59 (88) 98 01/18/19 04:00 96.9 82 21 152/74 (100) 95 01/18/19 00:30 101/52 (68) 01/18/19 00:00 97.9 78 21 113/44 (67) 95 01/17/19 21:00 Room Air 01/17/19 20:00 96.9 102 21 96/72 (80) 95 01/17/19 19:00 84 18 96 Room Air 21 01/17/19 16:00 98.7 80 20 96/60 (72) 67 01/17/19 12:00 98.9 83 18 111/56 (74) 98 Intake and Output 01/17/19 01/18/19 19:00 07:00 Intake Total 860 ml 640 ml Output Total 600 ml Balance 260 ml 640 ml Free Water 200 ml 90 ml Tube Feeding 660 ml 550 ml Output Urine Total 600 ml Objective General Appearance: bedridden chronically ill looking AA female in NAD HEENT: normocephalic, atraumatic, anicteric Respiratory/Chest: lungs clear - with moderate air exchange , no respiratory distress, no accessory muscle use Cardiovascular: normal rate Abdomen: normal bowel sounds, soft, non tender, G tube Extremities: L AKA Skin: no rash, st 2 R heel decub ulcer Neurologic/Psychiatric: abnormal gait - bedridden , poorly responsive Musculoskeletal: atrophy Microbiology Date/Time Source Procedure Growth Status 01/15/19 11:15 Nasal Nares MRSA Culture - Final NO METHICILLIN RESISTANT STAPH AUREUS... Complete 01/15/19 11:15 Rectum - Final NO CARBAPENEM-RESISTANT ENTEROBACTERI... Complete 01/15/19 11:15 Rectal Mucosa VRE Culture - Final Enterococcus Faecium - Vre Complete Laboratory Tests 01/17/19 11:30: Sodium Level 149H, Potassium Level 4.0, Chloride Level 112H, Carbon Dioxide Level 24, Anion Gap 13, Blood Urea Nitrogen 49H, Creatinine 1.8H, Estimat Glomerular Filtration Rate , Glucose Level 115H, Calcium Level 9.1 01/18/19 06:40: Sodium Level 146H, Potassium Level 4.2, Chloride Level 110H, Carbon Dioxide Level 21, Anion Gap 15, Blood Urea Nitrogen 47H, Creatinine 1.9H, Estimat Glomerular Filtration Rate , Glucose Level 135H, Calcium Level 9.6, White Blood Count 7.9, Red Blood Count 3.18L, Hemoglobin 10.2L, Hematocrit 30.8L, Mean Corpuscular Volume 97, Mean Corpuscular Hemoglobin 32.2H, Mean Corpuscular Hemoglobin Concent 33.2, Red Cell Distribution Width 12.5, Platelet Count 267, Mean Platelet Volume 6.7, Neutrophils (%) (Auto) 64.5, Lymphocytes (%) (Auto) 27.3, Monocytes (%) (Auto) 4.9, Eosinophils (%) (Auto) 2.4, Basophils (%) (Auto ) 0.9 Current Medications Medications (Trade) Dose Ordered Sig/Nancy Route PRN Reason Start Time Stop Time Status Last Admin Dose Admin Acetaminophen (Tylenol) 650 mg Q4H PRN GT T>100.5 01/15/19 14:30 02/14/19 14:29 Albuterol/ Ipratropium (Albuterol/ Ipratropium) 3 ml Q6H PRN HHN dyspnea 01/15/19 15:00 01/20/19 14:59 Amlodipine Besylate (Norvasc) 10 mg DAILY GT 01/16/19 09:00 02/15/19 08:59 01/18/19 08:59 Apixaban (Eliquis) 2.5 mg BID GT 01/15/19 18:00 02/14/19 17:59 01/18/19 08:58 Aspirin (ASA) 81 mg DAILY GT 01/16/19 09:00 02/15/19 08:59 01/18/19 08:58 Dextrose (Dextrose 50%) 25 ml Q30M PRN IV Hypoglycemia 01/15/19 15:00 02/14/19 14:59 Dextrose (Dextrose 50%) 50 ml Q30M PRN IV Hypoglycemia 01/15/19 15:00 02/14/19 14:59 Erythromycin (Erickson-Ped) 50 mg Q6HR GT 01/16/19 12:00 01/23/19 11:59 01/18/19 05:55 Hydralazine HCl (Apresoline) 25 mg Q4H PRN GT sbp> 160mmHg 01/15/19 12:45 02/14/19 12:44 Insulin Aspart (NovoLOG) BEFORE MEALS AND HS SUBQ 01/15/19 16:30 02/14/19 16:29 01/18/19 06:02 Insulin Detemir (Levemir) 20 units Q12HR SUBQ 01/15/19 21:00 02/14/19 20:59 01/18/19 09:03 Lansoprazole (Prevacid) 30 mg BID GT 01/15/19 18:00 02/14/19 17:59 01/18/19 08:58 Levetiracetam (Keppra) 1,000 mg Q12HR GT 01/15/19 21:00 02/14/19 20:59 01/18/19 08:58 Morphine Sulfate (Morphine Sulfate) 1 mg Q4H PRN IVP PAIN 4-10 01/15/19 12:45 01/22/19 12:44 Ondansetron HCl (Zofran) 4 mg Q6H PRN IVP Nausea & Vomiting 01/15/19 14:30 02/14/19 14:29 Polyethylene Glycol (Miralax) 17 gm HSPRN PRN ORAL Constipation 01/15/19 21:00 02/14/19 20:59 Zolpidem Tartrate (Ambien) 5 mg HSPRN PRN ORAL Insomnia 01/15/19 21:00 01/22/19 20:59 aRdha Ortiz NP Jan 18, 2019 10:30
[2019-01-18] MEDS ORDERED: Albuterol/Ipratropium 3ml neb HHN PRN (10:33)
--- NOTE | 2019-01-18 10:52 | Nephrology Progress Note ---
Assessment/Plan Status: stable Assessment/Plan: A/P (1) Acute on chronic renal failure - Cr back to baseline range (2) Dehydration- TFs and prn IVFs (3) Hyperkalemia- resolved (4) Seizure disorder (5) Dementia- hospice candidate Subjective Date patient seen: Jan 18, 2019 Time patient seen: 10:50 ROS Limited/Unobtainable: Yes Allergies: Coded Allergies: METOCLOPRAMIDE (Verified Allergy, Unknown, 03/10/18) extrapyramidal Sx Subjective Patient nonverbal. In no overt distress Objective Last 24 Hour Vital Signs Date Time Temp Pulse Resp B/P (MAP) Pulse Ox O2 Delivery O2 Flow Rate FiO2 01/18/19 09:00 Room Air 01/18/19 08:59 82 147/59 01/18/19 08:00 97.8 82 24 147/59 (88) 98 01/18/19 04:00 96.9 82 21 152/74 (100) 95 01/18/19 00:30 101/52 (68) 01/18/19 00:00 97.9 78 21 113/44 (67) 95 01/17/19 21:00 Room Air 01/17/19 20:00 96.9 102 21 96/72 (80) 95 01/17/19 19:00 84 18 96 Room Air 21 01/17/19 16:00 98.7 80 20 96/60 (72) 67 01/17/19 12:00 98.9 83 18 111/56 (74) 98 Intake and Output 01/17/19 01/18/19 19:00 07:00 Intake Total 860 ml 640 ml Output Total 600 ml Balance 260 ml 640 ml Free Water 200 ml 90 ml Tube Feeding 660 ml 550 ml Output Urine Total 600 ml Laboratory Tests 01/17/19 11:30: Sodium Level 149H, Potassium Level 4.0, Chloride Level 112H, Carbon Dioxide Level 24, Anion Gap 13, Blood Urea Nitrogen 49H, Creatinine 1.8H, Estimat Glomerular Filtration Rate , Glucose Level 115H, Calcium Level 9.1 01/18/19 06:40: Sodium Level 146H, Potassium Level 4.2, Chloride Level 110H, Carbon Dioxide Level 21, Anion Gap 15, Blood Urea Nitrogen 47H, Creatinine 1.9H, Estimat Glomerular Filtration Rate , Glucose Level 135H, Calcium Level 9.6, White Blood Count 7.9, Red Blood Count 3.18L, Hemoglobin 10.2L, Hematocrit 30.8L, Mean Corpuscular Volume 97, Mean Corpuscular Hemoglobin 32.2H, Mean Corpuscular Hemoglobin Concent 33.2, Red Cell Distribution Width 12.5, Platelet Count 267, Mean Platelet Volume 6.7, Neutrophils (%) (Auto) 64.5, Lymphocytes (%) (Auto) 27.3, Monocytes (%) (Auto) 4.9, Eosinophils (%) (Auto) 2.4, Basophils (%) (Auto ) 0.9 Height (Feet): 5 Height (Inches): 4.00 Weight (Pounds): 180 General Appearance: no apparent distress EENT: normal ENT inspection Neck: normal alignment, supple Cardiovascular: normal rate, regular rhythm Respiratory/Chest: rhonchi - bilaterally Abdomen: non tender, soft Edema: no edema noted Arm (L), no edema noted Arm (R), no edema noted Leg (L), no edema noted Leg (R), no edema noted Pedal (L), no edema noted Pedal (R), no edema noted Generalized Jalen Springer MD Jan 18, 2019 10:52
--- NOTE | 2019-01-18 19:10 | NUR ---
HAND-OFF: Report given to Homar SMITH. Pt remains stable.
--- NOTE | 2019-01-18 19:28 | NUR ---
NURSE NOTES: Received report from LUIS Louie. Patient is in bed, awake and alertx0. On room air with no signs of distress or SOB. G-tube site intact and running Glucerna 1.2 @ 55cc/hr. IV site intact and patent. Umaña in place and draining yellow urine. Bed locked and in lowest position with 3x side rails up. Call light in reach. Will continue to monitor.
[2019-01-19] VITALS: BP 118/47
[2019-01-19 04:00] VITALS: BP 158/72
[2019-01-19] MEDS: Erythromycin Ethylsuccinate 200mg/5ml Susp GT SCH ×3 (06:33→17:34)
[2019-01-19] MEDS: NovoLOG Insulin Flexpen SUBQ SCH ×3 (06:35→17:35)
--- NOTE | 2019-01-19 07:12 | NUR ---
HAND-OFF: Report given to LUIS Malone.
[2019-01-19 07:14] LABS: BASOPHILS % (AUTO) 0.4 % (0.0-2.0); EOSINOPHILS % (AUTO) 2.4 % (0.0-3.0); HEMATOCRIT 29.7 % (37.0-47.0); HEMOGLOBIN 9.7 G/DL (12.0-16.0); MEAN CORPUSCULAR VOLUME 99 FL (80-99); MONOCYTES % (AUTO) 5.2 % (1.0-10.0); NEUTROPHILS % (AUTO) 63.9 % (45.0-75.0); PLATELET COUNT 285 K/UL (150-450); RED BLOOD COUNT 3.01 M/UL (4.20-5.40); RED CELL DISTRIBUTION WIDTH 12.7 % (11.6-14.8); WHITE BLOOD COUNT 8.5 K/UL (4.8-10.8)
[2019-01-19 07:26] LABS: BLOOD UREA NITROGEN 44 mg/dL (7-18); CALCIUM 9.5 MG/DL (8.5-10.1); CHLORIDE 110 MMOL/L (98-107); CREATININE 1.9 MG/DL (0.55-1.30); POTASSIUM 4.1 MMOL/L (3.5-5.1); SODIUM 146 MMOL/L (136-145)
[2019-01-19 07:44] LABS: CARBON DIOXIDE 26 MMOL/L (21-32)
[2019-01-19 08:00] VITALS: BP 108/54
--- NOTE | 2019-01-19 08:07 | NUR ---
NURSE NOTES: Patient non-verbal; on room air, no sing of distress and shortness of breath; no sing of chest pain; Umaña in place, drains well; Glucera 1.2 running at 55cc, no residual; head of the bed elevated, side rails padded, bed at lowest position, breaks engaged; will keep monitoring.
--- NOTE | 2019-01-19 09:00 | NUR ---
RADIOLOGY: PCXR COMPLETED 0800 HRS. NF
[2019-01-19] MEDS: Levemir Flexpen SUBQ SCH ×2 (09:19→20:12)
[2019-01-19] MEDS: Aspirin Baby 81mg GT SCH (09:20)
[2019-01-19] MEDS: Eliquis 2.5mg tablet GT SCH ×2 (09:20→17:34)
[2019-01-19] MEDS: levETIRAcetam 500mg/5ml Liquid GT SCH ×2 (09:21→20:05)
[2019-01-19 09:52] LABS: ALANINE AMINOTRANSFERASE 14 U/L (12-78); ALBUMIN 3.3 G/DL (3.4-5.0); ALKALINE PHOSPHATASE 112 U/L (46-116); ASPARTATE AMINO TRANSFERASE 16 U/L (15-37); BILIRUBIN,DIRECT < 0.1 MG/DL (0.0-0.3); BILIRUBIN,TOTAL 0.2 MG/DL (0.2-1.0); PHOSPHORUS 4.7 MG/DL (2.5-4.9)
--- NOTE | 2019-01-19 11:44 | Diagnostic Imaging Report ---
Indication: Dyspnea Comparison: 11/25/2018 A single view chest radiograph was obtained. Findings: No definite infiltrate or pulmonary vascular congestion identified. The heart is borderline enlarged. The aorta is mildly enlarged consistent with atherosclerotic vascular disease. The bones are osteopenic. Impression: No acute disease
[2019-01-19 12:00] VITALS: BP 144/80
--- NOTE | 2019-01-19 12:10 | NUR ---
RD ASSESSMENT & RECOMMENDATIONS SEE CARE ACTIVITY FOR COMPLETE ASSESSMENT DAILY ESTIMATED NEEDS: Needs based on DM, wounds, TF [employer], overweight (Adj wt 58kg) 25-30 kcals/kg 8342-3675 total kcals 1.25-1.5 g protein/kg 73-87 g total protein 25-30 mL/kg 1163-2589 total fluid mLs NUTRITION DIAGNOSIS: 1) Increased protein, micronutrient needs r/t wound healing as evidenced by admitted w/ buttocks wounds, pending evaluation. 2) Swallowing difficulty r/t dysphagia as evidenced by pt is PEG dep, on GT feeding. ENTERAL NUTRITION RECOMMENDATIONS: Glucerna 1.2 @ 55ml/hr x 24 hrs to provide 1320ml, 1584kcal, 79g prot, 1063ml free water * maintain@ goal rate of 55ml/hr x 24 hrs to meet 100% est kcal/prot needs. * HOB over 30 degrees/ H2O flush of 120ml q 6 hrs ADDITIONAL RECOMMENDATIONS: 1) Weekly calibrated bed scale wts 2) Wound healing: add Vit C 250mg QD add Damian 1pkt BID 3) Monitor lytes daily, replete as needed 4) Monitor K closely, need for TF change (admitted w/ elev K, now wnl) K wnl (01/19)
--- NOTE | 2019-01-19 12:59 | Pulmonology Progress Note ---
Assessment/Plan Problems: (1) Acute on chronic renal failure (2) OREN (acute kidney injury) (3) Hyperkalemia (4) G tube feedings (5) At high risk for aspiration (6) Diabetes (7) Right hemiparesis (8) Seizure disorder (9) Functional quadriplegia (10) Dementia Assessment/Plan looks comfortable check electrolytes iv fluids renal studies done wound care, f/u plastic surgery recommendations dvt prophylaxis pt's niece has been very resistant to palliative and end of life care in the past. she thinks that patient has a good life at the senior living in this current condition. Subjective Interval Events: looks comfortable Allergies: Coded Allergies: METOCLOPRAMIDE (Verified Allergy, Unknown, 03/10/18) extrapyramidal Sx Objective Last 24 Hour Vital Signs Date Time Temp Pulse Resp B/P (MAP) Pulse Ox O2 Delivery O2 Flow Rate FiO2 01/19/19 09:00 Room Air 01/19/19 08:00 98.0 68 17 108/54 (72) 97 01/19/19 06:37 72 16 97 Room Air 21 01/19/19 04:00 97.0 70 21 158/72 (100) 95 01/19/19 00:00 97.9 78 21 118/47 (70) 98 01/18/19 21:00 Room Air 01/18/19 20:00 78 18 96 Room Air 21 01/18/19 20:00 98.2 90 21 152/72 (98) 98 01/18/19 16:00 97.9 85 23 145/64 (91) 99 Intake and Output 01/18/19 01/19/19 19:00 07:00 Intake Total 805 ml 860 ml Output Total 400 ml Balance 405 ml 860 ml Free Water 200 ml 200 ml Tube Feeding 605 ml 660 ml Output Urine Total 400 ml # Bowel Movements 2 General Appearance: WD/WN HEENT: normocephalic, atraumatic Respiratory/Chest: chest wall non-tender, lungs clear Breasts: no masses Cardiovascular: normal peripheral pulses Abdomen: normal bowel sounds, soft, non tender Genitourinary: normal external genitalia Extremities: no clubbing Neurologic/Psychiatric: 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 grossly normal, no motor/sensory deficits Lymphatic: no neck adenopathy Laboratory Tests 01/19/19 05:31: Stool Occult Blood Negative 01/19/19 06:00: White Blood Count 8.5, Red Blood Count 3.01L, Hemoglobin 9.7L, Hematocrit 29.7L , Mean Corpuscular Volume 99, Mean Corpuscular Hemoglobin 32.2H, Mean Corpuscular Hemoglobin Concent 32.7, Red Cell Distribution Width 12.7, Platelet Count 285, Mean Platelet Volume 6.6, Neutrophils (%) (Auto) 63.9, Lymphocytes (% ) (Auto) 28.0, Monocytes (%) (Auto) 5.2, Eosinophils (%) (Auto) 2.4, Basophils ( %) (Auto) 0.4, Sodium Level 146H, Potassium Level 4.1, Chloride Level 110H, Carbon Dioxide Level 26, Blood Urea Nitrogen 44H, Creatinine 1.9H, Estimat Glomerular Filtration Rate , Glucose Level 155H, Calcium Level 9.5, Phosphorus Level 4.7, Magnesium Level 2.5H, Total Bilirubin 0.2, Direct Bilirubin < 0.1, Aspartate Amino Transf (AST/SGOT) 16, Alanine Aminotransferase (ALT/SGPT) 14, Alkaline Phosphatase 112, C-Reactive Protein, Quantitative 3.8H, Pro-B-Type Natriuretic Peptide 627H, Total Protein 9.1H, Albumin 3.3L Current Medications Medications (Trade) Dose Ordered Sig/Nancy Route PRN Reason Start Time Stop Time Status Last Admin Dose Admin Acetaminophen (Tylenol) 650 mg Q4H PRN GT T>100.5 01/15/19 14:30 02/14/19 14:29 Albuterol/ Ipratropium (Albuterol/ Ipratropium) 3 ml Q6H PRN HHN dyspnea 01/18/19 10:33 01/23/19 10:32 Amlodipine Besylate (Norvasc) 10 mg DAILY GT 01/16/19 09:00 02/15/19 08:59 01/18/19 08:59 Apixaban (Eliquis) 2.5 mg BID GT 01/15/19 18:00 02/14/19 17:59 01/19/19 09:20 Aspirin (ASA) 81 mg DAILY GT 01/16/19 09:00 02/15/19 08:59 01/19/19 09:20 Dextrose (Dextrose 50%) 25 ml Q30M PRN IV Hypoglycemia 01/15/19 15:00 02/14/19 14:59 Dextrose (Dextrose 50%) 50 ml Q30M PRN IV Hypoglycemia 01/15/19 15:00 02/14/19 14:59 Erythromycin (Erickson-Ped) 50 mg Q6HR GT 01/16/19 12:00 01/23/19 11:59 01/19/19 12:37 Hydralazine HCl (Apresoline) 25 mg Q4H PRN GT sbp> 160mmHg 01/15/19 12:45 02/14/19 12:44 Insulin Aspart (NovoLOG) Q6HR SUBQ 01/18/19 12:00 02/14/19 16:29 01/19/19 12:39 Insulin Detemir (Levemir) 20 units Q12HR SUBQ 01/15/19 21:00 02/14/19 20:59 01/19/19 09:19 Lansoprazole (Prevacid) 30 mg BID GT 01/15/19 18:00 02/14/19 17:59 01/19/19 09:20 Levetiracetam (Keppra) 1,000 mg Q12HR GT 01/15/19 21:00 02/14/19 20:59 01/19/19 09:21 Morphine Sulfate (Morphine Sulfate) 1 mg Q4H PRN IVP PAIN 4-10 01/15/19 12:45 01/22/19 12:44 Ondansetron HCl (Zofran) 4 mg Q6H PRN IVP Nausea & Vomiting 01/15/19 14:30 02/14/19 14:29 Polyethylene Glycol (Miralax) 17 gm HSPRN PRN ORAL Constipation 01/15/19 21:00 02/14/19 20:59 Zolpidem Tartrate (Ambien) 5 mg HSPRN PRN ORAL Insomnia 01/15/19 21:00 01/22/19 20:59 Saira Lazcano MD Jan 19, 2019 12:59
--- NOTE | 2019-01-19 13:02 | Infectious Diseases Prog Note ---
Assessment/Plan Assessment/Plan Abx: None Assessment: Afebrile Mild leukocytosis, SP- likely reactive -u/a no pyuria OREN on CKD; improving Dm2 UTI hx of OM s/p L AKA hx of DVT HTN CVA w/ R side deficit seizure disorder dementia hx of UTI dysphagia with G-tube dependent non verbal functionally quadriplegic SNF resident Plan: -Continue to monitor off abx as she is stable -Monitor CBC/CMP, temperatures -Renal F/u Thank you for this consultation. Will continue to follow along with you. Subjective Allergies: Coded Allergies: METOCLOPRAMIDE (Verified Allergy, Unknown, 03/10/18) extrapyramidal Sx Subjective Afebrile No Leukocytosis Objective Vital Signs Last 24 Hour Vital Signs Date Time Temp Pulse Resp B/P (MAP) Pulse Ox O2 Delivery O2 Flow Rate FiO2 01/19/19 09:00 Room Air 01/19/19 08:00 98.0 68 17 108/54 (72) 97 01/19/19 06:37 72 16 97 Room Air 21 01/19/19 04:00 97.0 70 21 158/72 (100) 95 01/19/19 00:00 97.9 78 21 118/47 (70) 98 01/18/19 21:00 Room Air 01/18/19 20:00 78 18 96 Room Air 21 01/18/19 20:00 98.2 90 21 152/72 (98) 98 01/18/19 16:00 97.9 85 23 145/64 (91) 99 Height (Feet): 5 Height (Inches): 4.00 Weight (Pounds): 180 Objective General: NAD, nonverbal HEENT: NC/AT. EOMI. dry mucous membranes Cardiovascular: RRR. S1 and S2 normal. Resp: CTAB, No W Abdomen: Abdomen is soft, nondistended. Nontender. G-tube in place, no surrounding edema, erythema or leakage MSK: Left AKA site clear dry and intact. Laboratory Tests Test 01/19/19 05:31 01/19/19 06:00 Stool Occult Blood Negative (NEGATIVE) White Blood Count 8.5 K/UL (4.8-10.8) Red Blood Count 3.01 M/UL (4.20-5.40) L Hemoglobin 9.7 G/DL (12.0-16.0) L Hematocrit 29.7 % (37.0-47.0) L Mean Corpuscular Volume 99 FL (80-99) Mean Corpuscular Hemoglobin 32.2 PG (27.0-31.0) H Mean Corpuscular Hemoglobin Concent 32.7 G/DL (32.0-36.0) Red Cell Distribution Width 12.7 % (11.6-14.8) Platelet Count 285 K/UL (150-450) Mean Platelet Volume 6.6 FL (6.5-10.1) Neutrophils (%) (Auto) 63.9 % (45.0-75.0) Lymphocytes (%) (Auto) 28.0 % (20.0-45.0) Monocytes (%) (Auto) 5.2 % (1.0-10.0) Eosinophils (%) (Auto) 2.4 % (0.0-3.0) Basophils (%) (Auto) 0.4 % (0.0-2.0) Sodium Level 146 MMOL/L (136-145) H Potassium Level 4.1 MMOL/L (3.5-5.1) Chloride Level 110 MMOL/L (98-107) H Carbon Dioxide Level 26 MMOL/L (21-32) Blood Urea Nitrogen 44 mg/dL (7-18) H Creatinine 1.9 MG/DL (0.55-1.30) H Estimat Glomerular Filtration Rate mL/min (>60) Glucose Level 155 MG/DL (74-106) H Calcium Level 9.5 MG/DL (8.5-10.1) Phosphorus Level 4.7 MG/DL (2.5-4.9) Magnesium Level 2.5 MG/DL (1.8-2.4) H Total Bilirubin 0.2 MG/DL (0.2-1.0) Direct Bilirubin < 0.1 MG/DL (0.0-0.3) Aspartate Amino Transf (AST/SGOT) 16 U/L (15-37) Alanine Aminotransferase (ALT/SGPT) 14 U/L (12-78) Alkaline Phosphatase 112 U/L (46-116) C-Reactive Protein, Quantitative 3.8 mg/dL (0.00-0.90) H Pro-B-Type Natriuretic Peptide 627 pg/mL (0-125) H Total Protein 9.1 G/DL (6.4-8.2) H Albumin 3.3 G/DL (3.4-5.0) L Current Medications Medications (Trade) Dose Ordered Sig/Nancy Route PRN Reason Start Time Stop Time Status Last Admin Dose Admin Acetaminophen (Tylenol) 650 mg Q4H PRN GT T>100.5 01/15/19 14:30 02/14/19 14:29 Albuterol/ Ipratropium (Albuterol/ Ipratropium) 3 ml Q6H PRN HHN dyspnea 01/18/19 10:33 01/23/19 10:32 Amlodipine Besylate (Norvasc) 10 mg DAILY GT 01/16/19 09:00 02/15/19 08:59 01/18/19 08:59 Apixaban (Eliquis) 2.5 mg BID GT 01/15/19 18:00 02/14/19 17:59 01/19/19 09:20 Aspirin (ASA) 81 mg DAILY GT 01/16/19 09:00 02/15/19 08:59 01/19/19 09:20 Dextrose (Dextrose 50%) 25 ml Q30M PRN IV Hypoglycemia 01/15/19 15:00 02/14/19 14:59 Dextrose (Dextrose 50%) 50 ml Q30M PRN IV Hypoglycemia 01/15/19 15:00 02/14/19 14:59 Erythromycin (Erickson-Ped) 50 mg Q6HR GT 01/16/19 12:00 01/23/19 11:59 01/19/19 12:37 Hydralazine HCl (Apresoline) 25 mg Q4H PRN GT sbp> 160mmHg 01/15/19 12:45 02/14/19 12:44 Insulin Aspart (NovoLOG) Q6HR SUBQ 01/18/19 12:00 02/14/19 16:29 01/19/19 12:39 Insulin Detemir (Levemir) 20 units Q12HR SUBQ 01/15/19 21:00 02/14/19 20:59 01/19/19 09:19 Lansoprazole (Prevacid) 30 mg BID GT 01/15/19 18:00 02/14/19 17:59 01/19/19 09:20 Levetiracetam (Keppra) 1,000 mg Q12HR GT 01/15/19 21:00 02/14/19 20:59 01/19/19 09:21 Morphine Sulfate (Morphine Sulfate) 1 mg Q4H PRN IVP PAIN 4-10 01/15/19 12:45 01/22/19 12:44 Ondansetron HCl (Zofran) 4 mg Q6H PRN IVP Nausea & Vomiting 01/15/19 14:30 02/14/19 14:29 Polyethylene Glycol (Miralax) 17 gm HSPRN PRN ORAL Constipation 01/15/19 21:00 02/14/19 20:59 Zolpidem Tartrate (Ambien) 5 mg HSPRN PRN ORAL Insomnia 01/15/19 21:00 01/22/19 20:59 Deng Ricci MD Jan 19, 2019 13:02
--- NOTE | 2019-01-19 14:33 | Nephrology Progress Note ---
Assessment/Plan Problem List: (1) Acute on chronic renal failure Assessment: BUN and Cr lowering (2) Dehydration (3) Hyperkalemia (4) Seizure disorder (5) Dementia Assessment . Acute renal failure. presents with hyperkalemia . Underlying chronic renal failure. . Dehydration . Diabetes mellitus, . Other condition mentioned in the past history. . Reglan Allergy Plan slow Hydrate- Keep BP and Bs in check discuss with family by Dr Lazcano for comfort care avoid Nephrotoxics monitor renal parameters Subjective ROS Limited/Unobtainable: Yes Objective Objective Last 24 Hour Vital Signs Date Time Temp Pulse Resp B/P (MAP) Pulse Ox O2 Delivery O2 Flow Rate FiO2 01/19/19 12:00 97.6 77 19 144/80 (101) 97 01/19/19 09:00 Room Air 01/19/19 08:00 98.0 68 17 108/54 (72) 97 01/19/19 06:37 72 16 97 Room Air 21 01/19/19 04:00 97.0 70 21 158/72 (100) 95 01/19/19 00:00 97.9 78 21 118/47 (70) 98 01/18/19 21:00 Room Air 01/18/19 20:00 78 18 96 Room Air 21 01/18/19 20:00 98.2 90 21 152/72 (98) 98 01/18/19 16:00 97.9 85 23 145/64 (91) 99 Intake and Output 01/18/19 01/19/19 18:59 06:59 Intake Total 800 ml 860 ml Output Total 400 ml Balance 400 ml 860 ml Free Water 200 ml 200 ml Tube Feeding 600 ml 660 ml Output Urine Total 400 ml # Bowel Movements 2 Current Medications Medications (Trade) Dose Ordered Sig/Nancy Route PRN Reason Start Time Stop Time Status Last Admin Dose Admin Acetaminophen (Tylenol) 650 mg Q4H PRN GT T>100.5 01/15/19 14:30 02/14/19 14:29 Albuterol/ Ipratropium (Albuterol/ Ipratropium) 3 ml Q6H PRN HHN dyspnea 01/18/19 10:33 01/23/19 10:32 Amlodipine Besylate (Norvasc) 10 mg DAILY GT 01/16/19 09:00 02/15/19 08:59 01/18/19 08:59 Apixaban (Eliquis) 2.5 mg BID GT 01/15/19 18:00 02/14/19 17:59 01/19/19 09:20 Aspirin (ASA) 81 mg DAILY GT 01/16/19 09:00 02/15/19 08:59 01/19/19 09:20 Dextrose (Dextrose 50%) 25 ml Q30M PRN IV Hypoglycemia 01/15/19 15:00 02/14/19 14:59 Dextrose (Dextrose 50%) 50 ml Q30M PRN IV Hypoglycemia 01/15/19 15:00 02/14/19 14:59 Erythromycin (Erickson-Ped) 50 mg Q6HR GT 01/16/19 12:00 01/23/19 11:59 01/19/19 12:37 Hydralazine HCl (Apresoline) 25 mg Q4H PRN GT sbp> 160mmHg 01/15/19 12:45 02/14/19 12:44 Insulin Aspart (NovoLOG) Q6HR SUBQ 01/18/19 12:00 02/14/19 16:29 01/19/19 12:39 Insulin Detemir (Levemir) 20 units Q12HR SUBQ 01/15/19 21:00 02/14/19 20:59 01/19/19 09:19 Lansoprazole (Prevacid) 30 mg BID GT 01/15/19 18:00 02/14/19 17:59 01/19/19 09:20 Levetiracetam (Keppra) 1,000 mg Q12HR GT 01/15/19 21:00 02/14/19 20:59 01/19/19 09:21 Morphine Sulfate (Morphine Sulfate) 1 mg Q4H PRN IVP PAIN 4-10 01/15/19 12:45 01/22/19 12:44 Ondansetron HCl (Zofran) 4 mg Q6H PRN IVP Nausea & Vomiting 01/15/19 14:30 02/14/19 14:29 Polyethylene Glycol (Miralax) 17 gm HSPRN PRN ORAL Constipation 01/15/19 21:00 02/14/19 20:59 Zolpidem Tartrate (Ambien) 5 mg HSPRN PRN ORAL Insomnia 01/15/19 21:00 01/22/19 20:59 Laboratory Tests 01/19/19 05:31: Stool Occult Blood Negative 01/19/19 06:00: White Blood Count 8.5, Red Blood Count 3.01L, Hemoglobin 9.7L, Hematocrit 29.7L , Mean Corpuscular Volume 99, Mean Corpuscular Hemoglobin 32.2H, Mean Corpuscular Hemoglobin Concent 32.7, Red Cell Distribution Width 12.7, Platelet Count 285, Mean Platelet Volume 6.6, Neutrophils (%) (Auto) 63.9, Lymphocytes (% ) (Auto) 28.0, Monocytes (%) (Auto) 5.2, Eosinophils (%) (Auto) 2.4, Basophils ( %) (Auto) 0.4, Sodium Level 146H, Potassium Level 4.1, Chloride Level 110H, Carbon Dioxide Level 26, Blood Urea Nitrogen 44H, Creatinine 1.9H, Estimat Glomerular Filtration Rate , Glucose Level 155H, Calcium Level 9.5, Phosphorus Level 4.7, Magnesium Level 2.5H, Total Bilirubin 0.2, Direct Bilirubin < 0.1, Aspartate Amino Transf (AST/SGOT) 16, Alanine Aminotransferase (ALT/SGPT) 14, Alkaline Phosphatase 112, C-Reactive Protein, Quantitative 3.8H, Pro-B-Type Natriuretic Peptide 627H, Total Protein 9.1H, Albumin 3.3L Height (Feet): 5 Height (Inches): 4.00 Weight (Pounds): 180 General Appearance: no apparent distress Estevan Orozco MD Jan 19, 2019 14:32
[2019-01-19 16:00] VITALS: BP 147/82
--- NOTE | 2019-01-19 16:01 | NUR ---
[facility] SI; ACUTE KIDNEY INJURY T. 97.6 HR 77 19 B/P 144/60 NA 146 BUN 44 CR. 1.9 BNP 627 CXR= NEGATIVE IS: PREVACID PO LEVEMIR SUBC ASA PO ALB HHN MED/SURG STATUS
--- NOTE | 2019-01-19 19:30 | NUR ---
NURSE NOTES: Patient asleep in bed, no signs of pain at this time. With Gtube intact and connected to feeding. With Umaña cath intact and draining by gravity. Bed in lowest, lock engaged and alarm on. Will continue to monitor.
--- NOTE | 2019-01-19 19:33 | NUR ---
HAND-OFF: Report given to LUIS Alvarado.
[2019-01-19 20:00] VITALS: BP 159/69
[2019-01-20] VITALS: BP 158/61
[2019-01-20] MEDS: Erythromycin Ethylsuccinate 200mg/5ml Susp GT SCH ×4 (00:25→17:33)
[2019-01-20] MEDS: NovoLOG Insulin Flexpen SUBQ SCH ×4 (00:30→17:39)
[2019-01-20 04:00] VITALS: BP 150/61
--- NOTE | 2019-01-20 06:51 | NUR ---
NURSE NOTES: Patient noted to have some gelatinous blood-like came from the vagina. Charge nurse made aware. Called Dr. Lazcano and left message. Waiting for call back.
--- NOTE | 2019-01-20 07:35 | NUR ---
NURSE NOTES: Patient A/A/Ox1, non-verbal. on room air, no s/s of resp distress and shortness of breath. Umaña in place, draining well; Glucerna 1.2 running at 55cc, no gastric residual noted. head of the bed elevated for aspiration precaution. side rails padded for seizure precautions. bed at lowest position, bed alarm and locked. will cont to monitor.
--- NOTE | 2019-01-20 07:41 | NUR ---
HAND-OFF: Report given to Maggi.
[2019-01-20 08:00] VITALS: BP 144/68
[2019-01-20] MEDS: levETIRAcetam 500mg/5ml Liquid GT SCH ×2 (08:43→20:51)
[2019-01-20] MEDS: Aspirin Baby 81mg GT SCH (08:44)
[2019-01-20] MEDS: Eliquis 2.5mg tablet GT SCH ×2 (08:44→17:33)
[2019-01-20] MEDS: Levemir Flexpen SUBQ SCH ×2 (08:48→21:29)
--- NOTE | 2019-01-20 10:58 | NUR ---
NURSE NOTES: oral care rendered.
--- NOTE | 2019-01-20 11:24 | Infectious Diseases Prog Note ---
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 Will continue to follow along with you. Subjective Allergies: Coded Allergies: METOCLOPRAMIDE (Verified Allergy, Unknown, 03/10/18) extrapyramidal Sx Subjective Afebrile No Leukocytosis Satting well Objective Vital Signs Last 24 Hour Vital Signs Date Time Temp Pulse Resp B/P (MAP) Pulse Ox O2 Delivery O2 Flow Rate FiO2 01/20/19 09:00 Room Air 01/20/19 08:44 80 144/68 01/20/19 08:10 72 16 96 Room Air 21 01/20/19 08:00 97.7 80 20 144/68 (93) 97 01/20/19 04:00 97.4 76 20 150/61 (90) 97 01/20/19 00:00 98.5 83 21 158/61 (93) 96 01/19/19 21:00 Room Air 01/19/19 20:00 70 16 94 Room Air 21 01/19/19 20:00 97.3 88 16 159/69 (99) 96 01/19/19 16:00 97.9 83 20 147/82 (103) 98 01/19/19 12:00 97.6 77 19 144/80 (101) 97 Height (Feet): 5 Height (Inches): 4.00 Weight (Pounds): 180 Objective General: NAD, nonverbal, Satting well HEENT: NC/AT. EOMI. dry mucous membranes Cardiovascular: RRR. S1 and S2 normal. Resp: CTAB, No W Abdomen: Abdomen is soft, nondistended. Nontender. G-tube in place, no surrounding edema, erythema or leakage MSK: Left AKA site clear dry and intact. Current Medications Medications (Trade) Dose Ordered Sig/Nancy Route PRN Reason Start Time Stop Time Status Last Admin Dose Admin Acetaminophen (Tylenol) 650 mg Q4H PRN GT T>100.5 01/15/19 14:30 02/14/19 14:29 Albuterol/ Ipratropium (Albuterol/ Ipratropium) 3 ml Q6H PRN HHN dyspnea 01/18/19 10:33 01/23/19 10:32 Amlodipine Besylate (Norvasc) 10 mg DAILY GT 01/16/19 09:00 02/15/19 08:59 01/20/19 08:44 Apixaban (Eliquis) 2.5 mg BID GT 01/15/19 18:00 02/14/19 17:59 01/20/19 08:44 Aspirin (ASA) 81 mg DAILY GT 01/16/19 09:00 02/15/19 08:59 01/20/19 08:44 Dextrose (Dextrose 50%) 25 ml Q30M PRN IV Hypoglycemia 01/15/19 15:00 02/14/19 14:59 Dextrose (Dextrose 50%) 50 ml Q30M PRN IV Hypoglycemia 01/15/19 15:00 02/14/19 14:59 Erythromycin (Erickson-Ped) 50 mg Q6HR GT 01/16/19 12:00 01/23/19 11:59 01/20/19 05:56 Hydralazine HCl (Apresoline) 25 mg Q4H PRN GT sbp> 160mmHg 01/15/19 12:45 02/14/19 12:44 Insulin Aspart (NovoLOG) Q6HR SUBQ 01/18/19 12:00 02/14/19 16:29 01/20/19 06:00 Insulin Detemir (Levemir) 20 units Q12HR SUBQ 01/15/19 21:00 02/14/19 20:59 01/20/19 08:48 Lansoprazole (Prevacid) 30 mg BID GT 01/15/19 18:00 02/14/19 17:59 01/20/19 08:44 Levetiracetam (Keppra) 1,000 mg Q12HR GT 01/15/19 21:00 02/14/19 20:59 01/20/19 08:43 Morphine Sulfate (Morphine Sulfate) 1 mg Q4H PRN IVP PAIN 4-10 01/15/19 12:45 01/22/19 12:44 Ondansetron HCl (Zofran) 4 mg Q6H PRN IVP Nausea & Vomiting 01/15/19 14:30 02/14/19 14:29 Polyethylene Glycol (Miralax) 17 gm HSPRN PRN ORAL Constipation 01/15/19 21:00 02/14/19 20:59 Zolpidem Tartrate (Ambien) 5 mg HSPRN PRN ORAL Insomnia 01/15/19 21:00 01/22/19 20:59 Deng Ricci MD Jan 20, 2019 11:24
--- NOTE | 2019-01-20 11:38 | Pulmonology Progress Note ---
Assessment/Plan Problems: (1) Acute on chronic renal failure (2) OREN (acute kidney injury) (3) Hyperkalemia (4) G tube feedings (5) At high risk for aspiration (6) Diabetes (7) Right hemiparesis (8) Seizure disorder (9) Functional quadriplegia (10) Dementia Assessment/Plan creatinine becoming more stable looks comfortable check electrolytes iv fluids renal studies done wound care, f/u plastic surgery recommendations dvt prophylaxis pt's niece has been very resistant to palliative and end of life care in the past. she thinks that patient has a good life at the skilled nursing in this current condition. crea Subjective ROS Limited/Unobtainable: No Constitutional: Reports: no symptoms HEENT: Repors: no symptoms Allergies: Coded Allergies: METOCLOPRAMIDE (Verified Allergy, Unknown, 03/10/18) extrapyramidal Sx Objective Last 24 Hour Vital Signs Date Time Temp Pulse Resp B/P (MAP) Pulse Ox O2 Delivery O2 Flow Rate FiO2 01/20/19 09:00 Room Air 01/20/19 08:44 80 144/68 01/20/19 08:10 72 16 96 Room Air 21 01/20/19 08:00 97.7 80 20 144/68 (93) 97 01/20/19 04:00 97.4 76 20 150/61 (90) 97 01/20/19 00:00 98.5 83 21 158/61 (93) 96 01/19/19 21:00 Room Air 01/19/19 20:00 70 16 94 Room Air 21 01/19/19 20:00 97.3 88 16 159/69 (99) 96 01/19/19 16:00 97.9 83 20 147/82 (103) 98 01/19/19 12:00 97.6 77 19 144/80 (101) 97 Intake and Output 01/19/19 01/20/19 19:00 07:00 Intake Total 860 ml 740 ml Balance 860 ml 740 ml Free Water 200 ml 190 ml Tube Feeding 660 ml 550 ml # Bowel Movements 1 General Appearance: no acute distress HEENT: normocephalic, atraumatic Respiratory/Chest: chest wall non-tender, lungs clear Breasts: no masses Cardiovascular: normal peripheral pulses Abdomen: normal bowel sounds, soft, non tender Genitourinary: normal external genitalia Extremities: no clubbing Skin: no rash Current Medications Medications (Trade) Dose Ordered Sig/Nancy Route PRN Reason Start Time Stop Time Status Last Admin Dose Admin Acetaminophen (Tylenol) 650 mg Q4H PRN GT T>100.5 01/15/19 14:30 02/14/19 14:29 Albuterol/ Ipratropium (Albuterol/ Ipratropium) 3 ml Q6H PRN HHN dyspnea 01/18/19 10:33 01/23/19 10:32 Amlodipine Besylate (Norvasc) 10 mg DAILY GT 01/16/19 09:00 02/15/19 08:59 01/20/19 08:44 Apixaban (Eliquis) 2.5 mg BID GT 01/15/19 18:00 02/14/19 17:59 01/20/19 08:44 Aspirin (ASA) 81 mg DAILY GT 01/16/19 09:00 02/15/19 08:59 01/20/19 08:44 Dextrose (Dextrose 50%) 25 ml Q30M PRN IV Hypoglycemia 01/15/19 15:00 02/14/19 14:59 Dextrose (Dextrose 50%) 50 ml Q30M PRN IV Hypoglycemia 01/15/19 15:00 02/14/19 14:59 Erythromycin (Erickson-Ped) 50 mg Q6HR GT 01/16/19 12:00 01/23/19 11:59 01/20/19 05:56 Hydralazine HCl (Apresoline) 25 mg Q4H PRN GT sbp> 160mmHg 01/15/19 12:45 02/14/19 12:44 Insulin Aspart (NovoLOG) Q6HR SUBQ 01/18/19 12:00 02/14/19 16:29 01/20/19 06:00 Insulin Detemir (Levemir) 20 units Q12HR SUBQ 01/15/19 21:00 02/14/19 20:59 01/20/19 08:48 Lansoprazole (Prevacid) 30 mg BID GT 01/15/19 18:00 02/14/19 17:59 01/20/19 08:44 Levetiracetam (Keppra) 1,000 mg Q12HR GT 01/15/19 21:00 02/14/19 20:59 01/20/19 08:43 Morphine Sulfate (Morphine Sulfate) 1 mg Q4H PRN IVP PAIN 4-10 01/15/19 12:45 01/22/19 12:44 Ondansetron HCl (Zofran) 4 mg Q6H PRN IVP Nausea & Vomiting 01/15/19 14:30 02/14/19 14:29 Polyethylene Glycol (Miralax) 17 gm HSPRN PRN ORAL Constipation 01/15/19 21:00 02/14/19 20:59 Zolpidem Tartrate (Ambien) 5 mg HSPRN PRN ORAL Insomnia 01/15/19 21:00 01/22/19 20:59 Saira Lazcano MD Jan 20, 2019 11:38
[2019-01-20 12:00] VITALS: BP 146/77
--- NOTE | 2019-01-20 15:56 | Nephrology Progress Note ---
Assessment/Plan Problem List: (1) Acute on chronic renal failure Assessment: BUN and Cr lowering (2) Dehydration (3) Hyperkalemia (4) Seizure disorder (5) Dementia Assessment . Acute renal failure. presents with hyperkalemia . Underlying chronic renal failure. . Dehydration . Diabetes mellitus, . Other condition mentioned in the past history. . Reglan Allergy Plan slow Hydrate- Keep BP and BS in check discuss with family by Dr Lazcano for comfort care avoid Nephrotoxics monitor renal parameters Subjective ROS Limited/Unobtainable: Yes Constitutional: Reports: other - nonverbal Objective Objective Last 24 Hour Vital Signs Date Time Temp Pulse Resp B/P (MAP) Pulse Ox O2 Delivery O2 Flow Rate FiO2 01/20/19 12:00 98.1 77 19 146/77 (100) 98 01/20/19 09:00 Room Air 01/20/19 08:44 80 144/68 01/20/19 08:10 72 16 96 Room Air 21 01/20/19 08:00 97.7 80 20 144/68 (93) 97 01/20/19 04:00 97.4 76 20 150/61 (90) 97 01/20/19 00:00 98.5 83 21 158/61 (93) 96 01/19/19 21:00 Room Air 01/19/19 20:00 70 16 94 Room Air 21 01/19/19 20:00 97.3 88 16 159/69 (99) 96 01/19/19 16:00 97.9 83 20 147/82 (103) 98 Intake and Output 01/19/19 01/20/19 19:00 07:00 Intake Total 860 ml 740 ml Balance 860 ml 740 ml Free Water 200 ml 190 ml Tube Feeding 660 ml 550 ml # Bowel Movements 1 Height (Feet): 5 Height (Inches): 4.00 Weight (Pounds): 180 General Appearance: no apparent distress Cardiovascular: normal rate Respiratory/Chest: decreased breath sounds Abdomen: soft, other - PEg Objective no change Estevan Orozco MD Jan 20, 2019 15:56
[2019-01-20 16:00] VITALS: BP_SYST 108; BP_SYST 114; BP_DIAS 57; BP_DIAS 63
--- NOTE | 2019-01-20 19:18 | NUR ---
HAND-OFF: Report given to Lilly.
--- NOTE | 2019-01-20 19:48 | NUR ---
NURSE NOTES: Received report from ADOLFO Tay. Patient nonverbal. On room air, no signs of distress or labored breathing. IV intact, patent, and saline locked. GT intact, patent, and infusing feeding. Umaña intact, patent, and draining urine.
[2019-01-20 20:00] VITALS: BP 166/85
[2019-01-20] MEDS: HydrALAZINE 25mg tab GT PRN (20:51)
[2019-01-21] VITALS: BP 156/67
[2019-01-21] MEDS: Erythromycin Ethylsuccinate 200mg/5ml Susp GT SCH ×4 (00:40→17:23)
[2019-01-21] MEDS: NovoLOG Insulin Flexpen SUBQ SCH ×4 (00:45→17:25)
[2019-01-21 04:00] VITALS: BP 153/65
[2019-01-21 07:08] LABS: BASOPHILS % (AUTO) 0.5 % (0.0-2.0); EOSINOPHILS % (AUTO) 2.9 % (0.0-3.0); HEMATOCRIT 33.6 % (37.0-47.0); HEMOGLOBIN 10.9 G/DL (12.0-16.0); MEAN CORPUSCULAR VOLUME 99 FL (80-99); MONOCYTES % (AUTO) 5.9 % (1.0-10.0); NEUTROPHILS % (AUTO) 56.7 % (45.0-75.0); PLATELET COUNT 278 K/UL (150-450); RED BLOOD COUNT 3.38 M/UL (4.20-5.40); WHITE BLOOD COUNT 7.7 K/UL (4.8-10.8)
[2019-01-21 07:23] LABS: ALANINE AMINOTRANSFERASE 12 U/L (12-78); ALBUMIN 3.6 G/DL (3.4-5.0); ALBUMIN/GLOBULIN RATIO 0.6 (1.0-2.7); ALKALINE PHOSPHATASE 124 U/L (46-116); ANION GAP 11 mmol/L (5-15); ASPARTATE AMINO TRANSFERASE 13 U/L (15-37); BILIRUBIN,TOTAL 0.3 MG/DL (0.2-1.0); BLOOD UREA NITROGEN 51 mg/dL (7-18); CALCIUM 9.6 MG/DL (8.5-10.1); CARBON DIOXIDE 27 MMOL/L (21-32); CHLORIDE 107 MMOL/L (98-107); CREATININE 1.9 MG/DL (0.55-1.30); PHOSPHORUS 4.8 MG/DL (2.5-4.9); POTASSIUM 5.1 MMOL/L (3.5-5.1); SODIUM 144 MMOL/L (136-145)
--- NOTE | 2019-01-21 07:30 | NUR ---
NURSE NOTES: Received pt from PEDRO RN. Pt is nonverbal. pt is in RA, no SOB or acute respiratory distress noted. pt has Umaña cath in place is running well. pt has g tube in place is working well. pt has intact IV access L wrist 20g SL. all needs attended, bed is locked and is in the lowest position, call light within easy reach. will continue to monitor.
--- NOTE | 2019-01-21 07:32 | NUR ---
HAND-OFF: Report given to LUIS Hensley.
[2019-01-21 08:00] VITALS: BP 155/64
[2019-01-21] MEDS: levETIRAcetam 500mg/5ml Liquid GT SCH ×2 (09:04→21:03)
[2019-01-21] MEDS: Aspirin Baby 81mg GT SCH (09:04)
[2019-01-21] MEDS: Eliquis 2.5mg tablet GT SCH ×2 (09:04→17:23)
[2019-01-21] MEDS: Levemir Flexpen SUBQ SCH ×2 (09:07→21:02)
--- NOTE | 2019-01-21 10:30 | Infectious Diseases Prog Note ---
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 Will continue to follow along with you. Subjective Allergies: Coded Allergies: METOCLOPRAMIDE (Verified Allergy, Unknown, 03/10/18) extrapyramidal Sx Subjective Afebrile No Leukocytosis Objective Vital Signs Last 24 Hour Vital Signs Date Time Temp Pulse Resp B/P (MAP) Pulse Ox O2 Delivery O2 Flow Rate FiO2 01/21/19 09:04 78 155/64 01/21/19 08:00 98.0 78 18 155/64 (94) 99 01/21/19 04:00 98.0 80 18 153/65 (94) 99 01/21/19 00:00 98.0 85 18 156/67 (96) 97 01/20/19 21:00 Room Air 01/20/19 20:51 166/85 01/20/19 20:00 89 16 98 Room Air 21 01/20/19 20:00 97.5 89 20 166/85 (112) 98 01/20/19 16:00 97.9 78 18 114/57 (76) 98 01/20/19 12:00 98.1 77 19 146/77 (100) 98 Height (Feet): 5 Height (Inches): 4.00 Weight (Pounds): 171 Objective General: NAD, nonverbal HEENT: NC/AT. EOMI. Cardiovascular: RRR. S1 and S2 normal. Resp: CTAB, No W Abdomen: Abdomen is soft, nondistended. Nontender. G-tube in place, no surrounding edema, erythema or leakage MSK: Left AKA site clear dry and intact. Laboratory Tests Test 01/21/19 06:00 White Blood Count 7.7 K/UL (4.8-10.8) Red Blood Count 3.38 M/UL (4.20-5.40) L Hemoglobin 10.9 G/DL (12.0-16.0) L Hematocrit 33.6 % (37.0-47.0) L Mean Corpuscular Volume 99 FL (80-99) Mean Corpuscular Hemoglobin 32.3 PG (27.0-31.0) H Mean Corpuscular Hemoglobin Concent 32.6 G/DL (32.0-36.0) Red Cell Distribution Width 13.0 % (11.6-14.8) Platelet Count 278 K/UL (150-450) Mean Platelet Volume 7.0 FL (6.5-10.1) Neutrophils (%) (Auto) 56.7 % (45.0-75.0) Lymphocytes (%) (Auto) 34.0 % (20.0-45.0) Monocytes (%) (Auto) 5.9 % (1.0-10.0) Eosinophils (%) (Auto) 2.9 % (0.0-3.0) Basophils (%) (Auto) 0.5 % (0.0-2.0) Erythrocyte Sedimentation Rate 48 MM/HR (0-30) H Sodium Level 144 MMOL/L (136-145) Potassium Level 5.1 MMOL/L (3.5-5.1) Chloride Level 107 MMOL/L (98-107) Carbon Dioxide Level 27 MMOL/L (21-32) Anion Gap 11 mmol/L (5-15) Blood Urea Nitrogen 51 mg/dL (7-18) H Creatinine 1.9 MG/DL (0.55-1.30) H Estimat Glomerular Filtration Rate mL/min (>60) Glucose Level 117 MG/DL (74-106) H Calcium Level 9.6 MG/DL (8.5-10.1) Phosphorus Level 4.8 MG/DL (2.5-4.9) Magnesium Level 2.7 MG/DL (1.8-2.4) H Total Bilirubin 0.3 MG/DL (0.2-1.0) Aspartate Amino Transf (AST/SGOT) 13 U/L (15-37) L Alanine Aminotransferase (ALT/SGPT) 12 U/L (12-78) Alkaline Phosphatase 124 U/L (46-116) H C-Reactive Protein, Quantitative 2.5 mg/dL (0.00-0.90) H Total Protein 9.8 G/DL (6.4-8.2) H Albumin 3.6 G/DL (3.4-5.0) Globulin 6.2 g/dL Albumin/Globulin Ratio 0.6 (1.0-2.7) L Current Medications Medications (Trade) Dose Ordered Sig/Nancy Route PRN Reason Start Time Stop Time Status Last Admin Dose Admin Acetaminophen (Tylenol) 650 mg Q4H PRN GT T>100.5 01/15/19 14:30 02/14/19 14:29 Albuterol/ Ipratropium (Albuterol/ Ipratropium) 3 ml Q6H PRN HHN dyspnea 01/18/19 10:33 01/23/19 10:32 Amlodipine Besylate (Norvasc) 10 mg DAILY GT 01/16/19 09:00 02/15/19 08:59 01/21/19 09:04 Apixaban (Eliquis) 2.5 mg BID GT 01/15/19 18:00 02/14/19 17:59 01/21/19 09:04 Aspirin (ASA) 81 mg DAILY GT 01/16/19 09:00 02/15/19 08:59 01/21/19 09:04 Dextrose (Dextrose 50%) 25 ml Q30M PRN IV Hypoglycemia 01/15/19 15:00 02/14/19 14:59 Dextrose (Dextrose 50%) 50 ml Q30M PRN IV Hypoglycemia 01/15/19 15:00 02/14/19 14:59 Erythromycin (Erickson-Ped) 50 mg Q6HR GT 01/16/19 12:00 01/23/19 11:59 01/21/19 06:20 Hydralazine HCl (Apresoline) 25 mg Q4H PRN GT sbp> 160mmHg 01/15/19 12:45 02/14/19 12:44 01/20/19 20:51 Insulin Aspart (NovoLOG) Q6HR SUBQ 01/18/19 12:00 02/14/19 16:29 01/21/19 06:24 Insulin Detemir (Levemir) 20 units Q12HR SUBQ 01/15/19 21:00 02/14/19 20:59 01/21/19 09:07 Lansoprazole (Prevacid) 30 mg BID GT 01/15/19 18:00 02/14/19 17:59 01/21/19 09:04 Levetiracetam (Keppra) 1,000 mg Q12HR GT 01/15/19 21:00 02/14/19 20:59 01/21/19 09:04 Morphine Sulfate (Morphine Sulfate) 1 mg Q4H PRN IVP PAIN 4-10 01/15/19 12:45 01/22/19 12:44 Ondansetron HCl (Zofran) 4 mg Q6H PRN IVP Nausea & Vomiting 01/15/19 14:30 02/14/19 14:29 Polyethylene Glycol (Miralax) 17 gm HSPRN PRN ORAL Constipation 01/15/19 21:00 02/14/19 20:59 Zolpidem Tartrate (Ambien) 5 mg HSPRN PRN ORAL Insomnia 01/15/19 21:00 01/22/19 20:59 Deng Ricci MD Jan 21, 2019 10:30
--- NOTE | 2019-01-21 10:41 | Nephrology Progress Note ---
Assessment/Plan Problem List: (1) Acute on chronic renal failure Assessment: BUN and Cr lowering (2) Dehydration (3) Hyperkalemia (4) Seizure disorder (5) Dementia Assessment . Acute renal failure. presents with hyperkalemia . Underlying chronic renal failure. . Dehydration . Diabetes mellitus, . Other condition mentioned in the past history. . Reglan Allergy Plan slow Hydrate- Keep BP and BS in check discuss with family by Dr Lazcano for comfort care avoid Nephrotoxics monitor renal parameters Subjective ROS Limited/Unobtainable: Yes Objective Objective Last 24 Hour Vital Signs Date Time Temp Pulse Resp B/P (MAP) Pulse Ox O2 Delivery O2 Flow Rate FiO2 01/21/19 09:04 78 155/64 01/21/19 08:00 98.0 78 18 155/64 (94) 99 01/21/19 04:00 98.0 80 18 153/65 (94) 99 01/21/19 00:00 98.0 85 18 156/67 (96) 97 01/20/19 21:00 Room Air 01/20/19 20:51 166/85 01/20/19 20:00 89 16 98 Room Air 21 01/20/19 20:00 97.5 89 20 166/85 (112) 98 01/20/19 16:00 97.9 78 18 114/57 (76) 98 01/20/19 12:00 98.1 77 19 146/77 (100) 98 Intake and Output 01/20/19 01/21/19 19:00 07:00 Intake Total 835 ml 865 ml Output Total 400 ml Balance 835 ml 465 ml Free Water 230 ml 260 ml Tube Feeding 605 ml 605 ml Output Urine Total 400 ml Current Medications Medications (Trade) Dose Ordered Sig/Nancy Route PRN Reason Start Time Stop Time Status Last Admin Dose Admin Acetaminophen (Tylenol) 650 mg Q4H PRN GT T>100.5 01/15/19 14:30 02/14/19 14:29 Albuterol/ Ipratropium (Albuterol/ Ipratropium) 3 ml Q6H PRN HHN dyspnea 01/18/19 10:33 01/23/19 10:32 Amlodipine Besylate (Norvasc) 10 mg DAILY GT 01/16/19 09:00 02/15/19 08:59 01/21/19 09:04 Apixaban (Eliquis) 2.5 mg BID GT 01/15/19 18:00 02/14/19 17:59 01/21/19 09:04 Aspirin (ASA) 81 mg DAILY GT 01/16/19 09:00 02/15/19 08:59 01/21/19 09:04 Dextrose (Dextrose 50%) 25 ml Q30M PRN IV Hypoglycemia 01/15/19 15:00 02/14/19 14:59 Dextrose (Dextrose 50%) 50 ml Q30M PRN IV Hypoglycemia 01/15/19 15:00 02/14/19 14:59 Erythromycin (Erickson-Ped) 50 mg Q6HR GT 01/16/19 12:00 01/23/19 11:59 01/21/19 06:20 Hydralazine HCl (Apresoline) 25 mg Q4H PRN GT sbp> 160mmHg 01/15/19 12:45 02/14/19 12:44 01/20/19 20:51 Insulin Aspart (NovoLOG) Q6HR SUBQ 01/18/19 12:00 02/14/19 16:29 01/21/19 06:24 Insulin Detemir (Levemir) 20 units Q12HR SUBQ 01/15/19 21:00 02/14/19 20:59 01/21/19 09:07 Lansoprazole (Prevacid) 30 mg BID GT 01/15/19 18:00 02/14/19 17:59 01/21/19 09:04 Levetiracetam (Keppra) 1,000 mg Q12HR GT 01/15/19 21:00 02/14/19 20:59 01/21/19 09:04 Morphine Sulfate (Morphine Sulfate) 1 mg Q4H PRN IVP PAIN 4-10 01/15/19 12:45 01/22/19 12:44 Ondansetron HCl (Zofran) 4 mg Q6H PRN IVP Nausea & Vomiting 01/15/19 14:30 02/14/19 14:29 Polyethylene Glycol (Miralax) 17 gm HSPRN PRN ORAL Constipation 01/15/19 21:00 02/14/19 20:59 Zolpidem Tartrate (Ambien) 5 mg HSPRN PRN ORAL Insomnia 01/15/19 21:00 01/22/19 20:59 Laboratory Tests 01/21/19 06:00: White Blood Count 7.7, Red Blood Count 3.38L, Hemoglobin 10.9L, Hematocrit 33.6L , Mean Corpuscular Volume 99, Mean Corpuscular Hemoglobin 32.3H, Mean Corpuscular Hemoglobin Concent 32.6, Red Cell Distribution Width 13.0, Platelet Count 278, Mean Platelet Volume 7.0, Neutrophils (%) (Auto) 56.7, Lymphocytes (% ) (Auto) 34.0, Monocytes (%) (Auto) 5.9, Eosinophils (%) (Auto) 2.9, Basophils ( %) (Auto) 0.5, Erythrocyte Sedimentation Rate 48H, Sodium Level 144, Potassium Level 5.1, Chloride Level 107, Carbon Dioxide Level 27, Anion Gap 11, Blood Urea Nitrogen 51H, Creatinine 1.9H, Estimat Glomerular Filtration Rate , Glucose Level 117H, Calcium Level 9.6, Phosphorus Level 4.8, Magnesium Level 2.7H, Total Bilirubin 0.3, Aspartate Amino Transf (AST/SGOT) 13L, Alanine Aminotransferase (ALT/SGPT) 12, Alkaline Phosphatase 124H, C-Reactive Protein, Quantitative 2.5H, Total Protein 9.8H, Albumin 3.6, Globulin 6.2, Albumin/ Globulin Ratio 0.6L Height (Feet): 5 Height (Inches): 4.00 Weight (Pounds): 171 General Appearance: no apparent distress, lethargic Cardiovascular: normal rate Respiratory/Chest: decreased breath sounds Abdomen: soft Objective no change Estevan Orozco MD Jan 21, 2019 10:41
[2019-01-21 12:00] VITALS: BP 121/63
--- NOTE | 2019-01-21 12:49 | Pulmonology Progress Note ---
Assessment/Plan Problems: (1) Acute on chronic renal failure (2) OREN (acute kidney injury) (3) Hyperkalemia (4) G tube feedings (5) At high risk for aspiration (6) Diabetes (7) Right hemiparesis (8) Seizure disorder (9) Functional quadriplegia (10) Dementia Assessment/Plan creatinine becoming more stable, no change today looks comfortable check electrolytes iv fluids renal studies done wound care, f/u plastic surgery recommendations dvt prophylaxis dc to retirement Subjective ROS Limited/Unobtainable: No Constitutional: Reports: no symptoms HEENT: Repors: no symptoms Respiratory: Reports: no symptoms Allergies: Coded Allergies: METOCLOPRAMIDE (Verified Allergy, Unknown, 03/10/18) extrapyramidal Sx Objective Last 24 Hour Vital Signs Date Time Temp Pulse Resp B/P (MAP) Pulse Ox O2 Delivery O2 Flow Rate FiO2 01/21/19 12:00 98.2 79 18 121/63 (82) 98 01/21/19 09:04 78 155/64 01/21/19 09:00 Room Air 01/21/19 08:00 98.0 78 18 155/64 (94) 99 01/21/19 04:00 98.0 80 18 153/65 (94) 99 01/21/19 00:00 98.0 85 18 156/67 (96) 97 01/20/19 21:00 Room Air 01/20/19 20:51 166/85 01/20/19 20:00 89 16 98 Room Air 21 01/20/19 20:00 97.5 89 20 166/85 (112) 98 01/20/19 16:00 97.9 78 18 114/57 (76) 98 Intake and Output 01/20/19 01/21/19 19:00 07:00 Intake Total 835 ml 865 ml Output Total 400 ml Balance 835 ml 465 ml Free Water 230 ml 260 ml Tube Feeding 605 ml 605 ml Output Urine Total 400 ml General Appearance: WD/WN, no acute distress HEENT: atraumatic Respiratory/Chest: chest wall non-tender, lungs clear Cardiovascular: normal peripheral pulses, normal rate Abdomen: normal bowel sounds, non distended Skin: no rash Laboratory Tests 01/21/19 06:00: White Blood Count 7.7, Red Blood Count 3.38L, Hemoglobin 10.9L, Hematocrit 33.6L , Mean Corpuscular Volume 99, Mean Corpuscular Hemoglobin 32.3H, Mean Corpuscular Hemoglobin Concent 32.6, Red Cell Distribution Width 13.0, Platelet Count 278, Mean Platelet Volume 7.0, Neutrophils (%) (Auto) 56.7, Lymphocytes (% ) (Auto) 34.0, Monocytes (%) (Auto) 5.9, Eosinophils (%) (Auto) 2.9, Basophils ( %) (Auto) 0.5, Erythrocyte Sedimentation Rate 48H, Sodium Level 144, Potassium Level 5.1, Chloride Level 107, Carbon Dioxide Level 27, Anion Gap 11, Blood Urea Nitrogen 51H, Creatinine 1.9H, Estimat Glomerular Filtration Rate , Glucose Level 117H, Calcium Level 9.6, Phosphorus Level 4.8, Magnesium Level 2.7H, Total Bilirubin 0.3, Aspartate Amino Transf (AST/SGOT) 13L, Alanine Aminotransferase (ALT/SGPT) 12, Alkaline Phosphatase 124H, C-Reactive Protein, Quantitative 2.5H, Total Protein 9.8H, Albumin 3.6, Globulin 6.2, Albumin/ Globulin Ratio 0.6L Current Medications Medications (Trade) Dose Ordered Sig/Nancy Route PRN Reason Start Time Stop Time Status Last Admin Dose Admin Acetaminophen (Tylenol) 650 mg Q4H PRN GT T>100.5 01/15/19 14:30 02/14/19 14:29 Albuterol/ Ipratropium (Albuterol/ Ipratropium) 3 ml Q6H PRN HHN dyspnea 01/18/19 10:33 01/23/19 10:32 Amlodipine Besylate (Norvasc) 10 mg DAILY GT 01/16/19 09:00 02/15/19 08:59 01/21/19 09:04 Apixaban (Eliquis) 2.5 mg BID GT 01/15/19 18:00 02/14/19 17:59 01/21/19 09:04 Aspirin (ASA) 81 mg DAILY GT 01/16/19 09:00 02/15/19 08:59 01/21/19 09:04 Dextrose (Dextrose 50%) 25 ml Q30M PRN IV Hypoglycemia 01/15/19 15:00 02/14/19 14:59 Dextrose (Dextrose 50%) 50 ml Q30M PRN IV Hypoglycemia 01/15/19 15:00 02/14/19 14:59 Erythromycin (Erickson-Ped) 50 mg Q6HR GT 01/16/19 12:00 01/23/19 11:59 01/21/19 06:20 Hydralazine HCl (Apresoline) 25 mg Q4H PRN GT sbp> 160mmHg 01/15/19 12:45 02/14/19 12:44 01/20/19 20:51 Insulin Aspart (NovoLOG) Q6HR SUBQ 01/18/19 12:00 02/14/19 16:29 01/21/19 06:24 Insulin Detemir (Levemir) 20 units Q12HR SUBQ 01/15/19 21:00 02/14/19 20:59 01/21/19 09:07 Lansoprazole (Prevacid) 30 mg BID GT 01/15/19 18:00 02/14/19 17:59 01/21/19 09:04 Levetiracetam (Keppra) 1,000 mg Q12HR GT 01/15/19 21:00 02/14/19 20:59 01/21/19 09:04 Morphine Sulfate (Morphine Sulfate) 1 mg Q4H PRN IVP PAIN 4-10 01/15/19 12:45 01/22/19 12:44 Ondansetron HCl (Zofran) 4 mg Q6H PRN IVP Nausea & Vomiting 01/15/19 14:30 02/14/19 14:29 Polyethylene Glycol (Miralax) 17 gm HSPRN PRN ORAL Constipation 01/15/19 21:00 02/14/19 20:59 Zolpidem Tartrate (Ambien) 5 mg HSPRN PRN ORAL Insomnia 01/15/19 21:00 01/22/19 20:59 Saira Lazcano MD Jan 21, 2019 12:49
--- NOTE | 2019-01-21 14:03 | NUR ---
NURSE NOTES: Dr BEE visited pt and placed D/C order but RN notified Dr that pt still has vaginal bleeding so Dr BEE asked to call Dr DE LA PAZ and also ordered to cancel discharge ordered and cancel D/C [place] order, noted and carried out. Dr DE LA PAZ notified. will continue to monitor.
--- NOTE | 2019-01-21 15:22 | NUR ---
NURSE NOTES: stool specimen sent to lab, waiting for result. will continue to monitor.
[2019-01-21 15:54] VITALS: BP 151/88
--- NOTE | 2019-01-21 16:41 | Diagnostic Imaging Report ---
Indication: Vaginal bleeding Technique: Transabdominal and endovaginal pelvic ultrasound was performed. Findings: Limited and almost nondiagnostic exam due to patient body habitus and contracted positioning. Endovaginal images are nondiagnostic. Within these limitations, the following observations are made: The uterus measures approximately 6.4 x 5.4 x 3.5 cm on transabdominal imaging. Endometrium is poorly evaluated but measures approximately 4-5 mm in thickness on transabdominal exam. Ovaries are not identified. No free pleural fluid is demonstrated. Imaged portions of the bladder grossly unremarkable. IMPRESSION: Limited exam as above. Endovaginal images are nondiagnostic. Endometrium is poorly evaluated but appears to measure approximately 4 to 5 mm transabdominally. Given post menopausal vaginal bleeding and overall poor quality of the exam gynecologic evaluation/followup is recommended. Endometrial sampling may be warranted. Ovaries not identified.
--- NOTE | 2019-01-21 16:43 | NUR ---
DISCHARGE PLANNING Discharge order noted Patient has been referred to [facility] [phone] Await Acceptance
--- NOTE | 2019-01-21 17:29 | NUR ---
NURSE NOTES: bed bath given to pt and g tube dressing changed. will continue to monitor.
--- NOTE | 2019-01-21 19:13 | NUR ---
HAND-OFF: Report given to CHENCHO SMITH.
--- NOTE | 2019-01-21 19:30 | NUR ---
NURSE NOTES: Received report from LUIS Hensley. Patient nonverbal, currently sleeping. IV intact, patent, and saline locked. GT intact, patent, and infusing feeding. Umaña intact, patent, and draining urine. Bed in lowest position with HOB at least degrees. Will continue to monitor.
[2019-01-21 20:00] VITALS: BP 166/69
[2019-01-21] MEDS: HydrALAZINE 25mg tab GT PRN (21:03)
[2019-01-22] VITALS: BP 156/90
[2019-01-22] MEDS: Erythromycin Ethylsuccinate 200mg/5ml Susp GT SCH ×4 (00:48→17:26)
[2019-01-22] MEDS: NovoLOG Insulin Flexpen SUBQ SCH ×4 (00:50→17:43)
[2019-01-22 04:00] VITALS: BP 149/82
--- NOTE | 2019-01-22 07:29 | NUR ---
HAND-OFF: Report given to LUIS Hensley.
[2019-01-22 08:00] VITALS: BP 122/67
[2019-01-22] MEDS: Aspirin Baby 81mg GT SCH (09:18)
[2019-01-22] MEDS: Eliquis 2.5mg tablet GT SCH ×2 (09:18→17:26)
[2019-01-22] MEDS: levETIRAcetam 500mg/5ml Liquid GT SCH ×2 (09:19→21:06)
[2019-01-22] MEDS: Levemir Flexpen SUBQ SCH ×2 (09:20→21:08)
[2019-01-22 12:00] VITALS: BP 128/67
--- NOTE | 2019-01-22 12:19 | Infectious Diseases Prog Note ---
Assessment/Plan Assessment/Plan Abx: None Assessment: Afebrile Mild leukocytosis, SP- likely reactive -u/a no pyuria OREN on CKD; improving Dm2 UTI hx of OM s/p L AKA hx of DVT HTN CVA w/ R side deficit seizure disorder dementia hx of UTI dysphagia with G-tube dependent non verbal functionally quadriplegic SNF resident Plan: -Monitor off abx as she is stable -Monitor CBC/CMP, temperatures -Renal F/u Thank you for this consultation. Will continue to follow along with you. Subjective Allergies: Coded Allergies: METOCLOPRAMIDE (Verified Allergy, Unknown, 03/10/18) extrapyramidal Sx Subjective Afebrile No Leukocytosis Satting well Objective Vital Signs Last 24 Hour Vital Signs Date Time Temp Pulse Resp B/P (MAP) Pulse Ox O2 Delivery O2 Flow Rate FiO2 01/22/19 09:19 86 122/67 01/22/19 09:08 67 20 98 Room Air 21 01/22/19 09:00 Room Air 01/22/19 08:00 99.2 86 20 122/67 (85) 96 01/22/19 04:00 98.1 99 20 149/82 (104) 95 01/22/19 00:00 98.7 95 20 156/90 (112) 98 01/21/19 21:03 166/69 01/21/19 21:00 Room Air 01/21/19 20:00 98.9 92 18 166/69 (101) 98 01/21/19 19:58 84 18 98 Room Air 21 01/21/19 15:54 97.4 81 20 151/88 (109) 94 Height (Feet): 5 Height (Inches): 4.00 Weight (Pounds): 171 Objective General: NAD, nonverbal, Satting well HEENT: NC/AT. EOMI. Cardiovascular: RRR. S1 and S2 normal. Resp: CTAB, No W Abdomen: Abdomen is soft, nondistended. Nontender. G-tube in place, no surrounding edema, erythema or leakage MSK: Left AKA site clear dry and intact. Microbiology Date/Time Source Procedure Growth Status 01/21/19 15:10 Stool Clostridium difficile Toxin Assay - Final Complete Laboratory Tests Test 01/21/19 15:10 Stool Occult Blood Negative (NEGATIVE) Current Medications Medications (Trade) Dose Ordered Sig/Nancy Route PRN Reason Start Time Stop Time Status Last Admin Dose Admin Acetaminophen (Tylenol) 650 mg Q4H PRN GT T>100.5 01/15/19 14:30 02/14/19 14:29 Albuterol/ Ipratropium (Albuterol/ Ipratropium) 3 ml Q6H PRN HHN dyspnea 01/18/19 10:33 01/23/19 10:32 Amlodipine Besylate (Norvasc) 10 mg DAILY GT 01/16/19 09:00 02/15/19 08:59 01/22/19 09:19 Apixaban (Eliquis) 2.5 mg BID GT 01/15/19 18:00 02/14/19 17:59 01/22/19 09:18 Aspirin (ASA) 81 mg DAILY GT 01/16/19 09:00 02/15/19 08:59 01/22/19 09:18 Dextrose (Dextrose 50%) 25 ml Q30M PRN IV Hypoglycemia 01/15/19 15:00 02/14/19 14:59 Dextrose (Dextrose 50%) 50 ml Q30M PRN IV Hypoglycemia 01/15/19 15:00 02/14/19 14:59 Erythromycin (Erickson-Ped) 50 mg Q6HR GT 01/16/19 12:00 01/23/19 11:59 01/22/19 12:04 Hydralazine HCl (Apresoline) 25 mg Q4H PRN GT sbp> 160mmHg 01/15/19 12:45 02/14/19 12:44 01/21/19 21:03 Insulin Aspart (NovoLOG) Q6HR SUBQ 01/18/19 12:00 02/14/19 16:29 01/22/19 12:05 Insulin Detemir (Levemir) 20 units Q12HR SUBQ 01/15/19 21:00 02/14/19 20:59 01/22/19 09:20 Lansoprazole (Prevacid) 30 mg BID GT 01/15/19 18:00 02/14/19 17:59 01/22/19 09:18 Levetiracetam (Keppra) 1,000 mg Q12HR GT 01/15/19 21:00 02/14/19 20:59 9/19/19 09:19 Morphine Sulfate (Morphine Sulfate) 1 mg Q4H PRN IVP PAIN 4-10 01/15/19 12:45 01/22/19 12:44 01/22/19 00:49 Ondansetron HCl (Zofran) 4 mg Q6H PRN IVP Nausea & Vomiting 01/15/19 14:30 02/14/19 14:29 Polyethylene Glycol (Miralax) 17 gm HSPRN PRN ORAL Constipation 01/15/19 21:00 02/14/19 20:59 Zolpidem Tartrate (Ambien) 5 mg HSPRN PRN ORAL Insomnia 01/15/19 21:00 01/22/19 20:59 Deng Ricci MD Jan 22, 2019 12:19
--- NOTE | 2019-01-22 12:25 | Pulmonology Progress Note ---
Assessment/Plan Problems: (1) Acute on chronic renal failure (2) OREN (acute kidney injury) (3) Hyperkalemia (4) G tube feedings (5) At high risk for aspiration (6) Diabetes (7) Right hemiparesis (8) Seizure disorder (9) Functional quadriplegia (10) Dementia Assessment/Plan creatinine becoming more stable, no change today looks comfortable check electrolytes iv fluids renal studies done wound care, f/u plastic surgery recommendations dvt prophylaxis discharge was delayed yesterday because of some vaginal bleeding. pelvic US was ordered which didn't show any abnormality. she still has large vaginal bleeding dc to [facility] Subjective ROS Limited/Unobtainable: No HEENT: Repors: no symptoms Respiratory: Reports: no symptoms Allergies: Coded Allergies: METOCLOPRAMIDE (Verified Allergy, Unknown, 03/10/18) extrapyramidal Sx Objective Last 24 Hour Vital Signs Date Time Temp Pulse Resp B/P (MAP) Pulse Ox O2 Delivery O2 Flow Rate FiO2 01/22/19 09:19 86 122/67 01/22/19 09:08 67 20 98 Room Air 21 01/22/19 09:00 Room Air 01/22/19 08:00 99.2 86 20 122/67 (85) 96 01/22/19 04:00 98.1 99 20 149/82 (104) 95 01/22/19 00:00 98.7 95 20 156/90 (112) 98 01/21/19 21:03 166/69 01/21/19 21:00 Room Air 01/21/19 20:00 98.9 92 18 166/69 (101) 98 01/21/19 19:58 84 18 98 Room Air 21 01/21/19 15:54 97.4 81 20 151/88 (109) 94 Intake and Output 01/21/19 01/22/19 19:00 07:00 Intake Total 660 ml 965 ml Output Total 700 ml 400 ml Balance -40 ml 565 ml Free Water 360 ml Tube Feeding 660 ml 605 ml Output Urine Total 700 ml 400 ml # Voids 1 # Bowel Movements 1 2 General Appearance: WD/WN HEENT: normocephalic Respiratory/Chest: chest wall non-tender, no respiratory distress Breasts: no masses Cardiovascular: regular rhythm Abdomen: normal bowel sounds, soft, non tender, no scars Extremities: no clubbing Skin: no rash Microbiology Date/Time Source Procedure Growth Status 01/21/19 15:10 Stool Clostridium difficile Toxin Assay - Final Complete Laboratory Tests 01/21/19 15:10: Stool Occult Blood Negative Current Medications Medications (Trade) Dose Ordered Sig/Nancy Route PRN Reason Start Time Stop Time Status Last Admin Dose Admin Acetaminophen (Tylenol) 650 mg Q4H PRN GT T>100.5 01/15/19 14:30 02/14/19 14:29 Albuterol/ Ipratropium (Albuterol/ Ipratropium) 3 ml Q6H PRN HHN dyspnea 01/18/19 10:33 01/23/19 10:32 Amlodipine Besylate (Norvasc) 10 mg DAILY GT 01/16/19 09:00 02/15/19 08:59 01/22/19 09:19 Apixaban (Eliquis) 2.5 mg BID GT 01/15/19 18:00 02/14/19 17:59 01/22/19 09:18 Aspirin (ASA) 81 mg DAILY GT 01/16/19 09:00 02/15/19 08:59 01/22/19 09:18 Dextrose (Dextrose 50%) 25 ml Q30M PRN IV Hypoglycemia 01/15/19 15:00 02/14/19 14:59 Dextrose (Dextrose 50%) 50 ml Q30M PRN IV Hypoglycemia 01/15/19 15:00 02/14/19 14:59 Erythromycin (Erickson-Ped) 50 mg Q6HR GT 01/16/19 12:00 01/23/19 11:59 01/22/19 12:04 Hydralazine HCl (Apresoline) 25 mg Q4H PRN GT sbp> 160mmHg 01/15/19 12:45 02/14/19 12:44 01/21/19 21:03 Insulin Aspart (NovoLOG) Q6HR SUBQ 01/18/19 12:00 02/14/19 16:29 01/22/19 12:05 Insulin Detemir (Levemir) 20 units Q12HR SUBQ 01/15/19 21:00 02/14/19 20:59 01/22/19 09:20 Lansoprazole (Prevacid) 30 mg BID GT 01/15/19 18:00 02/14/19 17:59 01/22/19 09:18 Levetiracetam (Keppra) 1,000 mg Q12HR GT 01/15/19 21:00 02/14/19 20:59 01/22/19 09:19 Morphine Sulfate (Morphine Sulfate) 1 mg Q4H PRN IVP PAIN 4-10 01/15/19 12:45 01/22/19 12:44 01/22/19 00:49 Ondansetron HCl (Zofran) 4 mg Q6H PRN IVP Nausea & Vomiting 01/15/19 14:30 02/14/19 14:29 Polyethylene Glycol (Miralax) 17 gm HSPRN PRN ORAL Constipation 01/15/19 21:00 02/14/19 20:59 Zolpidem Tartrate (Ambien) 5 mg HSPRN PRN ORAL Insomnia 01/15/19 21:00 01/22/19 20:59 Saira Lazcano MD Jan 22, 2019 12:25
--- NOTE | 2019-01-22 13:29 | NUR ---
RD ASSESSMENT & RECOMMENDATIONS SEE CARE ACTIVITY FOR COMPLETE ASSESSMENT DAILY ESTIMATED NEEDS: Needs based on DM, wounds, TF [employer], overweight (Adj wt 58kg) 25-30 kcals/kg 8568-3881 total kcals 1.25-1.5 g protein/kg 73-87 g total protein 25-30 mL/kg 4026-9987 total fluid mLs NUTRITION DIAGNOSIS: 1) Increased protein, micronutrient needs r/t wound healing as evidenced by admitted w/ buttocks wounds, pending evaluation. 2) Swallowing difficulty r/t dysphagia as evidenced by pt is PEG dep, on GT feeding. CURRENT TF:Glucerna 1.2 @ 55ml/hr x 24 hrs ENTERAL NUTRITION RECOMMENDATIONS: Glucerna 1.2 @ 55ml/hr x 24 hrs to provide 1320ml, 1584kcal, 79g prot, 1063ml free water * maintain@ goal rate of 55ml/hr x 24 hrs to meet 100% est kcal/prot needs. * HOB over 30 degrees/ H2O flush of 120ml q 6 hrs ADDITIONAL RECOMMENDATIONS: 1) Weekly calibrated bed scale wts 2) Wound healing: add Vit C 250mg QD add Damian 1pkt BID 3) Monitor lytes daily, replete as needed 4) Monitor K closely, need for TF change (admitted w/ elev K, now wnl) K wnl (01/19, 01/22)
--- NOTE | 2019-01-22 13:48 | Consultation ---
Consult Note Consult Note GYNECOLOGY CONSULTATION REPORT CC: Vaginal bleeding HPI: Patient is an 83yo with a complicated medical history notable for T2DM, OM s/p L AKA, DVT, HTN, CVA with R-sided deficit, seizure disorder, dementia, dysphagia (G-tube dependent), non-verbal and functional quadriplegia who was admitted on 01/15 with OREN. She was noted to have some vaginal bleeding throughout her hospital stay, however her bleeding appeared to intermittently worsen over the last 24h. She is currently having scant vaginal bleeding. She underwent pelvic ultrasound which was non-diagnostic however noted ET to be 4- 5mm. Patient is on Eliquis for DVT. 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 * history of pneumonia * seizure disorder * dementia * GT feeding * functional quadriplegia PSH: Left AKA, G-tube placement Meds: See med rec Allergies: Reglan (EPDS) OBHx: Unable to obtain GYNHx: Unable to obtain SocHx: Lives in nursing facility, unable to obtain any additional history given that patient is non-verbal FamHx: Non-contributory Vitals: BP m128/67, P 94, Tlast 98.1, RR 20, O2 94% RA Exam: Gen: NAD, resting comfortable HEENT: tongue protruding, MM dry Neck: No obvious thyromegaly CV: No tachycardia Pulm: Equal chest rise Abd: Soft, NT Pelvic: Significant discharge noted, ?topical cream applied, internal exam unremarkable, scant blood on glove, no heavy active bleeding noted Ext: Left AKA, right leg with notable atrophy and multiple scabbed lesions Skin: Dry Labs: Test 01/21/19 06:00 01/21/19 15:10 White Blood Count 7.7 K/UL (4.8-10.8) Red Blood Count 3.38 M/UL (4.20-5.40) Hemoglobin 10.9 G/DL (12.0-16.0) Hematocrit 33.6 % (37.0-47.0) Mean Corpuscular Volume 99 FL (80-99) Mean Corpuscular Hemoglobin 32.3 PG (27.0-31.0) Mean Corpuscular Hemoglobin Concent 32.6 G/DL (32.0-36.0) Red Cell Distribution Width 13.0 % (11.6-14.8) Platelet Count 278 K/UL (150-450) Mean Platelet Volume 7.0 FL (6.5-10.1) Neutrophils (%) (Auto) 56.7 % (45.0-75.0) Lymphocytes (%) (Auto) 34.0 % (20.0-45.0) Monocytes (%) (Auto) 5.9 % (1.0-10.0) Eosinophils (%) (Auto) 2.9 % (0.0-3.0) Basophils (%) (Auto) 0.5 % (0.0-2.0) Erythrocyte Sedimentation Rate 48 MM/HR (0-30) Sodium Level 144 MMOL/L (136-145) Potassium Level 5.1 MMOL/L (3.5-5.1) Chloride Level 107 MMOL/L (98-107) Carbon Dioxide Level 27 MMOL/L (21-32) Anion Gap 11 mmol/L (5-15) Blood Urea Nitrogen 51 mg/dL (7-18) Creatinine 1.9 MG/DL (0.55-1.30) Estimat Glomerular Filtration Rate mL/min (>60) Glucose Level 117 MG/DL (74-106) Calcium Level 9.6 MG/DL (8.5-10.1) Phosphorus Level 4.8 MG/DL (2.5-4.9) Magnesium Level 2.7 MG/DL (1.8-2.4) Total Bilirubin 0.3 MG/DL (0.2-1.0) Aspartate Amino Transf (AST/SGOT) 13 U/L (15-37) Alanine Aminotransferase (ALT/SGPT) 12 U/L (12-78) Alkaline Phosphatase 124 U/L (46-116) C-Reactive Protein, Quantitative 2.5 mg/dL (0.00-0.90) Total Protein 9.8 G/DL (6.4-8.2) Albumin 3.6 G/DL (3.4-5.0) Globulin 6.2 g/dL Albumin/Globulin Ratio 0.6 (1.0-2.7) Stool Occult Blood Negative (NEGATIVE) IMAGING: Findings: Limited and almost nondiagnostic exam due to patient body habitus and contracted positioning. Endovaginal images are nondiagnostic. Within these limitations, the following observations are made: The uterus measures approximately 6.4 x 5.4 x 3.5 cm on transabdominal imaging. Endometrium is poorly evaluated but measures approximately 4-5 mm in thickness on transabdominal exam. Ovaries are not identified. No free pleural fluid is demonstrated. Imaged portions of the bladder grossly unremarkable. IMPRESSION: Limited exam as above. Endovaginal images are nondiagnostic. Endometrium is poorly evaluated but appears to measure approximately 4 to 5 mm transabdominally. Given post menopausal vaginal bleeding and overall poor quality of the exam gynecologic evaluation/followup is recommended. Endometrial sampling may be warranted. Ovaries not identified. Assessment/Plan 83yo with significant medical history and functionally quadriplegic, admitted with OREN, on Eliquis for DVT - Gynecology consulted for vaginal bleeding - Postmenopausal bleeding - per RN, patient had vaginal bleeding yesterday during her ultrasound, however no evidence of significant bleeding on internal exam today and no evidence of worsening anemia; in fact, H/H have risen since yesterday and her chux is dry with only scant blood mixed with ?discharge at her perineum - DDx for postmenopausal bleeding includes endometrial pathology (polyp, malignancy, hyperplasia), hematometra, coagulation disorder - Endometrial sampling is an option, however it is invasive and if led to a diagnosis of endometrial malignancy would likely result in the need for additional invasive procedures - Patient appears to be on supportive care and is not a good surgical candidate given her multiple medical issues - Outpatient endometrial biopsy should be considered, once patient's family can coordinate care - Endometrial lining does not appear to be thickened on ultrasound, however this imaging was non-diagnostic. CT Abd/Pelvis has been ordered to further evaluate pelvic organs; however, ultrasound is more reliable when evaluating the uterine lining - It is possible that her bleeding is secondary to Eliquis, however the only way to be sure is with endometrial sampling, which could be done as an outpatient - Given that patient is not bleeding heavily at this time and her H/H appear to be stable, I believe she can be discharged back to her nursing care facility and follow up with [facility] as an outpatient as long as her CT is unremarkable/not concerning - I do not recommend emergent surgical management at this time given her lack of heavy bleeding and her current clinical condition Thank you for this interesting consult. Kristina Mares M.D. Jan 22, 2019 13:48
--- NOTE | 2019-01-22 15:00 | Nephrology Progress Note ---
Assessment/Plan Problem List: (1) Acute on chronic renal failure Assessment: BUN and Cr lowering (2) Dehydration (3) Hyperkalemia (4) Seizure disorder (5) Dementia Assessment . Acute renal failure. presents with hyperkalemia . Underlying chronic renal failure. . Dehydration . Diabetes mellitus, . Other condition mentioned in the past history. . Reglan Allergy Plan check CBC today- report of vaginal bleed slow Hydrate- Keep BP and BS in check discuss with family by Dr Lazcano for comfort care avoid Nephrotoxics monitor renal parameters Subjective ROS Limited/Unobtainable: Yes Objective Objective Last 24 Hour Vital Signs Date Time Temp Pulse Resp B/P (MAP) Pulse Ox O2 Delivery O2 Flow Rate FiO2 01/22/19 12:00 98.1 87 20 128/67 (87) 94 01/22/19 09:19 86 122/67 01/22/19 09:08 67 20 98 Room Air 21 01/22/19 09:00 Room Air 01/22/19 08:00 99.2 86 20 122/67 (85) 96 01/22/19 04:00 98.1 99 20 149/82 (104) 95 01/22/19 00:00 98.7 95 20 156/90 (112) 98 01/21/19 21:03 166/69 01/21/19 21:00 Room Air 01/21/19 20:00 98.9 92 18 166/69 (101) 98 01/21/19 19:58 84 18 98 Room Air 21 01/21/19 15:54 97.4 81 20 151/88 (109) 94 Intake and Output 01/21/19 01/22/19 19:00 07:00 Intake Total 660 ml 1020 ml Output Total 700 ml 400 ml Balance -40 ml 620 ml Free Water 360 ml Tube Feeding 660 ml 660 ml Output Urine Total 700 ml 400 ml # Voids 1 # Bowel Movements 1 2 Laboratory Tests 01/21/19 15:10: Stool Occult Blood Negative Height (Feet): 5 Height (Inches): 4.00 Weight (Pounds): 171 General Appearance: no apparent distress, other - non verbal Cardiovascular: normal rate Respiratory/Chest: decreased breath sounds Abdomen: soft, distended Objective no change Estevan Orozco MD Jan 22, 2019 15:00
--- NOTE | 2019-01-22 15:05 | NUR ---
NURSE NOTES: pt left unit for CT. Pt is stable. waiting to come back.
--- NOTE | 2019-01-22 15:42 | Diagnostic Imaging Report ---
Indication: Abdominal pain. Vaginal bleeding Technique: Continuous helical transaxial imaging of the abdomen and pelvis was obtained from the lung bases to the pubic symphysis. No intravenous contrast was administered. Coronal 2-D reformats were also obtained. Automatic Exposure Control was utilized. Total Dose length Product (DLP): 851.[address] Dose Index Volume (CTDIvol): 16.14 mGy Comparison: none Findings: There is mild dependent posterior basal atelectasis. There are multiple hypodensities in the liver. Majority of these are likely cystic though some are too small to characterize. Hiatal hernia is present. Aorta is moderately calcified. Gastrostomy noted in good position. Gallbladder is identified but not evaluated well on this examination. IVC filter noted. There is a mild right hydronephrosis. There is a Umaña catheter present. There are diverticula throughout the colon mostly centered within the area of the sigmoid colon. There is no free fluid. Accessory spleen noted. Bowel gas pattern is nonobstructive. The appendix is normal. Uterus is present. Bones are diffusely osteopenic. IVC filter is present. IMPRESSION: Extensive diverticulosis of the colon and sigmoid region without definite diverticulitis. Moderate atherosclerotic vascular disease. Minimal right hydronephrosis. Multiple liver hypodensities nonspecific. Umaña catheter and gastrostomy in good position. Posterior basal atelectasis Hiatal hernia Normal appendix The CT scanner at [facility] is accredited by the [employer] and the scans are performed using dose optimization techniques as appropriate to a performed exam including Automatic Exposure control.
[2019-01-22 16:00] VITALS: BP 152/97
[2019-01-22 17:10] LABS: BASOPHILS % (AUTO) 0.9 % (0.0-2.0); EOSINOPHILS % (AUTO) 2.6 % (0.0-3.0); HEMATOCRIT 27.2 % (37.0-47.0); MEAN CORPUSCULAR VOLUME 99 FL (80-99); MONOCYTES % (AUTO) 6.9 % (1.0-10.0); NEUTROPHILS % (AUTO) 56.5 % (45.0-75.0); PLATELET COUNT 229 K/UL (150-450); RED BLOOD COUNT 2.75 M/UL (4.20-5.40); RED CELL DISTRIBUTION WIDTH 12.1 % (11.6-14.8); WHITE BLOOD COUNT 8.4 K/UL (4.8-10.8)
--- NOTE | 2019-01-22 19:20 | NUR ---
HAND-OFF: Report given to LEENA SMITH.
--- NOTE | 2019-01-22 19:55 | NUR ---
NURSE NOTES: Received patient in bed, non verbal, total care, on G tube feeding, tolerating well. F/C in place, draining well. IV site is clean dry and intact. Call light is within reach, bed is lowered locked and alarm is on. Will continue to monitor for safety and comfort.
[2019-01-22 20:00] VITALS: BP 143/62
[2019-01-23] VITALS: BP 151/76
[2019-01-23] MEDS: Erythromycin Ethylsuccinate 200mg/5ml Susp GT SCH ×2 (00:21→05:49)
[2019-01-23] MEDS: NovoLOG Insulin Flexpen SUBQ SCH ×4 (00:29→17:22)
[2019-01-23 04:00] VITALS: BP 142/76
[2019-01-23 06:36] LABS: BASOPHILS % (AUTO) 0.7 % (0.0-2.0); EOSINOPHILS % (AUTO) 3.3 % (0.0-3.0); HEMATOCRIT 29.3 % (37.0-47.0); HEMOGLOBIN 9.6 G/DL (12.0-16.0); LYMPHOCYTES % (AUTO) 32.5 % (20.0-45.0); MEAN CORPUSCULAR VOLUME 99 FL (80-99); MONOCYTES % (AUTO) 7.2 % (1.0-10.0); NEUTROPHILS % (AUTO) 56.4 % (45.0-75.0); PLATELET COUNT 258 K/UL (150-450); RED BLOOD COUNT 2.97 M/UL (4.20-5.40); WHITE BLOOD COUNT 7.7 K/UL (4.8-10.8)
[2019-01-23 07:04] LABS: ALANINE AMINOTRANSFERASE 14 U/L (12-78); ALBUMIN 3.3 G/DL (3.4-5.0); ALBUMIN/GLOBULIN RATIO 0.6 (1.0-2.7); ANION GAP 10 mmol/L (5-15); ASPARTATE AMINO TRANSFERASE 17 U/L (15-37); BILIRUBIN,TOTAL 0.3 MG/DL (0.2-1.0); BLOOD UREA NITROGEN 51 mg/dL (7-18); CALCIUM 9.3 MG/DL (8.5-10.1); CARBON DIOXIDE 26 MMOL/L (21-32); CHLORIDE 105 MMOL/L (98-107); POTASSIUM 5.2 MMOL/L (3.5-5.1); SODIUM 141 MMOL/L (136-145)
--- NOTE | 2019-01-23 07:31 | NUR ---
HAND-OFF: Report given to Annika SMITH.
[2019-01-23 07:34] LABS: ALKALINE PHOSPHATASE 118 U/L (46-116)
[2019-01-23 08:00] VITALS: BP 129/59
--- NOTE | 2019-01-23 08:09 | NUR ---
NURSE NOTES: received pt in bed, sign of distress, pain or discomfort. Patient is bedbound. Patient receives Glucerna 1.2 @ 55cc/hr, order for 100cc Flush Q6hr. Pt has a L Wrist saline locked IV access. Umaña catheter [address], anchored. Bed locked at the lowest position possible, call light within easy reach, siderails upx3. Will continue to monitor pt and follow up with the plan of care.
[2019-01-23] MEDS: Eliquis 2.5mg tablet GT SCH ×2 (09:28→17:17)
[2019-01-23] MEDS: levETIRAcetam 500mg/5ml Liquid GT SCH (09:28)
[2019-01-23] MEDS: Aspirin Baby 81mg GT SCH (09:29)
[2019-01-23] MEDS: Levemir Flexpen SUBQ SCH (09:30)
--- NOTE | 2019-01-23 09:38 | Nephrology Progress Note ---
Assessment/Plan Problem List: (1) Acute on chronic renal failure Assessment: BUN and Cr lowering (2) Dehydration (3) Hyperkalemia (4) Seizure disorder (5) Dementia Assessment . Acute renal failure. presents with hyperkalemia . Underlying chronic renal failure. . Dehydration . Diabetes mellitus, . Other condition mentioned in the past history. . Reglan Allergy Plan labs checked one report of vaginal bleed slow Hydrate- Keep BP and BS in check discuss with family by Dr Lazcano for comfort care unsuccessful- family declined avoid Nephrotoxics monitor renal parameters Subjective ROS Limited/Unobtainable: Yes Objective Objective Last 24 Hour Vital Signs Date Time Temp Pulse Resp B/P (MAP) Pulse Ox O2 Delivery O2 Flow Rate FiO2 01/23/19 09:29 81 129/59 01/23/19 08:00 98.9 81 21 129/59 (82) 01/23/19 07:43 72 20 97 Room Air 21 01/23/19 04:00 97.9 89 18 142/76 (98) 01/23/19 00:00 98.0 85 18 151/76 (101) 01/22/19 21:21 Room Air 01/22/19 20:14 81 20 96 Room Air 21 01/22/19 20:00 98.5 89 16 143/62 (89) 01/22/19 16:00 97.8 83 20 152/97 (115) 96 01/22/19 12:00 98.1 87 20 128/67 (87) 94 Intake and Output 01/22/19 01/23/19 19:00 07:00 Intake Total 860 ml 595 ml Output Total 500 ml Balance 360 ml 595 ml Free Water 200 ml 100 ml Tube Feeding 660 ml 495 ml Output Urine Total 500 ml # Voids 2 Laboratory Tests 01/22/19 16:50: White Blood Count 8.4, Red Blood Count 2.75L, Hemoglobin 9.0L, Hematocrit 27.2L , Mean Corpuscular Volume 99, Mean Corpuscular Hemoglobin 32.7H, Mean Corpuscular Hemoglobin Concent 33.1, Red Cell Distribution Width 12.1, Platelet Count 229, Mean Platelet Volume 7.4, Neutrophils (%) (Auto) 56.5, Lymphocytes (% ) (Auto) 33.0, Monocytes (%) (Auto) 6.9, Eosinophils (%) (Auto) 2.6, Basophils ( %) (Auto) 0.9 01/23/19 06:00: White Blood Count 7.7, Red Blood Count 2.97L, Hemoglobin 9.6L, Hematocrit 29.3L , Mean Corpuscular Volume 99, Mean Corpuscular Hemoglobin 32.2H, Mean Corpuscular Hemoglobin Concent 32.6, Red Cell Distribution Width 13.0, Platelet Count 258, Mean Platelet Volume 6.5, Neutrophils (%) (Auto) 56.4, Lymphocytes (% ) (Auto) 32.5, Monocytes (%) (Auto) 7.2, Eosinophils (%) (Auto) 3.3H, Basophils (%) (Auto) 0.7, Sodium Level 141, Potassium Level 5.2H, Chloride Level 105, Carbon Dioxide Level 26, Anion Gap 10, Blood Urea Nitrogen 51H, Creatinine 2.0H , Estimat Glomerular Filtration Rate , Glucose Level 118H, Calcium Level 9.3, Total Bilirubin 0.3, Aspartate Amino Transf (AST/SGOT) 17, Alanine Aminotransferase (ALT/SGPT) 14, Alkaline Phosphatase 118H, Total Protein 9.1H, Albumin 3.3L, Globulin 5.8, Albumin/Globulin Ratio 0.6L Height (Feet): 5 Height (Inches): 4.00 Weight (Pounds): 171 General Appearance: no apparent distress Cardiovascular: regular rhythm Respiratory/Chest: decreased breath sounds Abdomen: soft Objective no change Estevan Orozco MD Jan 23, 2019 09:38
[2019-01-23 12:00] VITALS: BP 127/63
--- NOTE | 2019-01-23 14:39 | Infectious Diseases Prog Note ---
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 Will continue to follow along with you. Subjective Allergies: Coded Allergies: METOCLOPRAMIDE (Verified Allergy, Unknown, 03/10/18) extrapyramidal Sx Subjective Afebrile No Leukocytosis ELISABETH Objective Vital Signs Last 24 Hour Vital Signs Date Time Temp Pulse Resp B/P (MAP) Pulse Ox O2 Delivery O2 Flow Rate FiO2 01/23/19 12:00 98.8 79 17 127/63 (84) 96 01/23/19 09:29 81 129/59 01/23/19 09:00 Room Air 01/23/19 08:00 98.9 81 21 129/59 (82) 01/23/19 07:43 72 20 97 Room Air 21 01/23/19 04:00 97.9 89 18 142/76 (98) 01/23/19 00:00 98.0 85 18 151/76 (101) 01/22/19 21:21 Room Air 01/22/19 20:14 81 20 96 Room Air 21 01/22/19 20:00 98.5 89 16 143/62 (89) 01/22/19 16:00 97.8 83 20 152/97 (115) 96 Height (Feet): 5 Height (Inches): 4.00 Weight (Pounds): 171 Objective General: NAD, nonverbal HEENT: NC/AT. EOMI. Cardiovascular: RRR. S1 and S2 normal. Resp: CTAB, No W Abdomen: Abdomen is soft, nondistended. Nontender. G-tube in place, no surrounding edema, erythema or leakage MSK: Left AKA site clear dry and intact. Microbiology Date/Time Source Procedure Growth Status 01/21/19 15:10 Stool Clostridium difficile Toxin Assay - Final Complete Laboratory Tests Test 01/22/19 16:50 01/23/19 06:00 White Blood Count 8.4 K/UL (4.8-10.8) 7.7 K/UL (4.8-10.8) Red Blood Count 2.75 M/UL (4.20-5.40) L 2.97 M/UL (4.20-5.40) L Hemoglobin 9.0 G/DL (12.0-16.0) L 9.6 G/DL (12.0-16.0) L Hematocrit 27.2 % (37.0-47.0) L 29.3 % (37.0-47.0) L Mean Corpuscular Volume 99 FL (80-99) 99 FL (80-99) Mean Corpuscular Hemoglobin 32.7 PG (27.0-31.0) H 32.2 PG (27.0-31.0) H Mean Corpuscular Hemoglobin Concent 33.1 G/DL (32.0-36.0) 32.6 G/DL (32.0-36.0) Red Cell Distribution Width 12.1 % (11.6-14.8) 13.0 % (11.6-14.8) Platelet Count 229 K/UL (150-450) 258 K/UL (150-450) Mean Platelet Volume 7.4 FL (6.5-10.1) 6.5 FL (6.5-10.1) Neutrophils (%) (Auto) 56.5 % (45.0-75.0) 56.4 % (45.0-75.0) Lymphocytes (%) (Auto) 33.0 % (20.0-45.0) 32.5 % (20.0-45.0) Monocytes (%) (Auto) 6.9 % (1.0-10.0) 7.2 % (1.0-10.0) Eosinophils (%) (Auto) 2.6 % (0.0-3.0) 3.3 % (0.0-3.0) H Basophils (%) (Auto) 0.9 % (0.0-2.0) 0.7 % (0.0-2.0) Sodium Level 141 MMOL/L (136-145) Potassium Level 5.2 MMOL/L (3.5-5.1) H Chloride Level 105 MMOL/L (98-107) Carbon Dioxide Level 26 MMOL/L (21-32) Anion Gap 10 mmol/L (5-15) Blood Urea Nitrogen 51 mg/dL (7-18) H Creatinine 2.0 MG/DL (0.55-1.30) H Estimat Glomerular Filtration Rate mL/min (>60) Glucose Level 118 MG/DL (74-106) H Calcium Level 9.3 MG/DL (8.5-10.1) Total Bilirubin 0.3 MG/DL (0.2-1.0) Aspartate Amino Transf (AST/SGOT) 17 U/L (15-37) Alanine Aminotransferase (ALT/SGPT) 14 U/L (12-78) Alkaline Phosphatase 118 U/L (46-116) H Total Protein 9.1 G/DL (6.4-8.2) H Albumin 3.3 G/DL (3.4-5.0) L Globulin 5.8 g/dL Albumin/Globulin Ratio 0.6 (1.0-2.7) L Current Medications Medications (Trade) Dose Ordered Sig/Nancy Route PRN Reason Start Time Stop Time Status Last Admin Dose Admin Acetaminophen (Tylenol) 650 mg Q4H PRN GT T>100.5 01/15/19 14:30 02/14/19 14:29 Amlodipine Besylate (Norvasc) 10 mg DAILY GT 01/16/19 09:00 02/15/19 08:59 01/23/19 09:29 Apixaban (Eliquis) 2.5 mg BID GT 01/15/19 18:00 02/14/19 17:59 01/23/19 09:28 Aspirin (ASA) 81 mg DAILY GT 01/16/19 09:00 02/15/19 08:59 01/23/19 09:29 Dextrose (Dextrose 50%) 25 ml Q30M PRN IV Hypoglycemia 01/15/19 15:00 02/14/19 14:59 Dextrose (Dextrose 50%) 50 ml Q30M PRN IV Hypoglycemia 01/15/19 15:00 02/14/19 14:59 Hydralazine HCl (Apresoline) 25 mg Q4H PRN GT sbp> 160mmHg 01/15/19 12:45 02/14/19 12:44 01/21/19 21:03 Insulin Aspart (NovoLOG) Q6HR SUBQ 01/18/19 12:00 02/14/19 16:29 01/23/19 12:59 Insulin Detemir (Levemir) 20 units Q12HR SUBQ 01/15/19 21:00 02/14/19 20:59 01/23/19 09:30 Lansoprazole (Prevacid) 30 mg BID GT 01/15/19 18:00 02/14/19 17:59 01/23/19 09:29 Levetiracetam (Keppra) 1,000 mg Q12HR GT 01/15/19 21:00 02/14/19 20:59 01/23/19 09:28 Ondansetron HCl (Zofran) 4 mg Q6H PRN IVP Nausea & Vomiting 01/15/19 14:30 02/14/19 14:29 Polyethylene Glycol (Miralax) 17 gm HSPRN PRN ORAL Constipation 01/15/19 21:00 02/14/19 20:59 Deng Ricci MD Jan 23, 2019 14:39
--- NOTE | 2019-01-23 15:42 | Pulmonology Progress Note ---
Assessment/Plan Problems: (1) Acute on chronic renal failure (2) OREN (acute kidney injury) (3) Hyperkalemia (4) G tube feedings (5) At high risk for aspiration (6) Diabetes (7) Right hemiparesis (8) Seizure disorder (9) Functional quadriplegia (10) Dementia Assessment/Plan creatinine becoming more stable, no change today looks comfortable check electrolytes iv fluids renal studies done wound care, f/u plastic surgery recommendations dvt prophylaxis discharge was delayed yesterday because of some vaginal bleeding. pelvic US was ordered which didn't show any abnormality. she still has large vaginal bleeding dc to [facility] Subjective ROS Limited/Unobtainable: No Allergies: Coded Allergies: METOCLOPRAMIDE (Verified Allergy, Unknown, 03/10/18) extrapyramidal Sx Objective Last 24 Hour Vital Signs Date Time Temp Pulse Resp B/P (MAP) Pulse Ox O2 Delivery O2 Flow Rate FiO2 01/23/19 12:00 98.8 79 17 127/63 (84) 96 01/23/19 09:29 81 129/59 01/23/19 09:00 Room Air 01/23/19 08:00 98.9 81 21 129/59 (82) 01/23/19 07:43 72 20 97 Room Air 21 01/23/19 04:00 97.9 89 18 142/76 (98) 01/23/19 00:00 98.0 85 18 151/76 (101) 01/22/19 21:21 Room Air 01/22/19 20:14 81 20 96 Room Air 21 01/22/19 20:00 98.5 89 16 143/62 (89) 01/22/19 16:00 97.8 83 20 152/97 (115) 96 Intake and Output 01/22/19 01/23/19 19:00 07:00 Intake Total 860 ml 595 ml Output Total 500 ml Balance 360 ml 595 ml Free Water 200 ml 100 ml Tube Feeding 660 ml 495 ml Output Urine Total 500 ml # Voids 2 Microbiology Date/Time Source Procedure Growth Status 01/21/19 15:10 Stool Clostridium difficile Toxin Assay - Final Complete Laboratory Tests 01/22/19 16:50: White Blood Count 8.4, Red Blood Count 2.75L, Hemoglobin 9.0L, Hematocrit 27.2L , Mean Corpuscular Volume 99, Mean Corpuscular Hemoglobin 32.7H, Mean Corpuscular Hemoglobin Concent 33.1, Red Cell Distribution Width 12.1, Platelet Count 229, Mean Platelet Volume 7.4, Neutrophils (%) (Auto) 56.5, Lymphocytes (% ) (Auto) 33.0, Monocytes (%) (Auto) 6.9, Eosinophils (%) (Auto) 2.6, Basophils ( %) (Auto) 0.9 01/23/19 06:00: White Blood Count 7.7, Red Blood Count 2.97L, Hemoglobin 9.6L, Hematocrit 29.3L , Mean Corpuscular Volume 99, Mean Corpuscular Hemoglobin 32.2H, Mean Corpuscular Hemoglobin Concent 32.6, Red Cell Distribution Width 13.0, Platelet Count 258, Mean Platelet Volume 6.5, Neutrophils (%) (Auto) 56.4, Lymphocytes (% ) (Auto) 32.5, Monocytes (%) (Auto) 7.2, Eosinophils (%) (Auto) 3.3H, Basophils (%) (Auto) 0.7, Sodium Level 141, Potassium Level 5.2H, Chloride Level 105, Carbon Dioxide Level 26, Anion Gap 10, Blood Urea Nitrogen 51H, Creatinine 2.0H , Estimat Glomerular Filtration Rate , Glucose Level 118H, Calcium Level 9.3, Total Bilirubin 0.3, Aspartate Amino Transf (AST/SGOT) 17, Alanine Aminotransferase (ALT/SGPT) 14, Alkaline Phosphatase 118H, Total Protein 9.1H, Albumin 3.3L, Globulin 5.8, Albumin/Globulin Ratio 0.6L Current Medications Medications (Trade) Dose Ordered Sig/Nancy Route PRN Reason Start Time Stop Time Status Last Admin Dose Admin Acetaminophen (Tylenol) 650 mg Q4H PRN GT T>100.5 01/15/19 14:30 02/14/19 14:29 Amlodipine Besylate (Norvasc) 10 mg DAILY GT 01/16/19 09:00 02/15/19 08:59 01/23/19 09:29 Apixaban (Eliquis) 2.5 mg BID GT 01/15/19 18:00 02/14/19 17:59 01/23/19 09:28 Aspirin (ASA) 81 mg DAILY GT 01/16/19 09:00 02/15/19 08:59 01/23/19 09:29 Dextrose (Dextrose 50%) 25 ml Q30M PRN IV Hypoglycemia 01/15/19 15:00 02/14/19 14:59 Dextrose (Dextrose 50%) 50 ml Q30M PRN IV Hypoglycemia 01/15/19 15:00 02/14/19 14:59 Hydralazine HCl (Apresoline) 25 mg Q4H PRN GT sbp> 160mmHg 01/15/19 12:45 02/14/19 12:44 01/21/19 21:03 Insulin Aspart (NovoLOG) Q6HR SUBQ 01/18/19 12:00 02/14/19 16:29 01/23/19 12:59 Insulin Detemir (Levemir) 20 units Q12HR SUBQ 01/15/19 21:00 02/14/19 20:59 01/23/19 09:30 Lansoprazole (Prevacid) 30 mg BID GT 01/15/19 18:00 02/14/19 17:59 01/23/19 09:29 Levetiracetam (Keppra) 1,000 mg Q12HR GT 01/15/19 21:00 02/14/19 20:59 01/23/19 09:28 Ondansetron HCl (Zofran) 4 mg Q6H PRN IVP Nausea & Vomiting 01/15/19 14:30 02/14/19 14:29 Polyethylene Glycol (Miralax) 17 gm HSPRN PRN ORAL Constipation 01/15/19 21:00 02/14/19 20:59 Saira Lazcano MD Jan 23, 2019 15:42
[2019-01-23 16:00] VITALS: BP 132/83
--- NOTE | 2019-01-23 18:45 | NUR ---
NURSE NOTES: checked with CAMILA Farfan, pt is colonized VRE rectum
[2019-01-23 20:00] VITALS: BP 141/66
--- NOTE | 2019-01-23 20:11 | NUR ---
NURSE NOTES: patient has been discharged back to [facility] at this time. Report given to nurse supervisor of operations Tobi. Patient is in stable condition, no sign of pain or discomfort. Taken IV access off, no bleeding noted after compression. Patient is going with all her belongings, unable to sign belonging sheet. Patient going with Umaña catheter fr 16, CAMILA Farfan aware. Discharge packet with medication reconciliation given to EMT Anton Shah, from [id number]. Communicated to Dejon Muller regarding pt's DC. Taken picture of resurfaced sacral area, endorsed to CAMILA Lee to upload at EMR.
--- NOTE | 2019-01-25 14:45 | Discharge Summary ---
Discharge Summary Discharge Summary _ DATE OF ADMISSION: 01/15/2019 DATE OF DISCHARGE: 01/23/2019 DISCHARGED BY: Dr. Saira Lazcano CONSULTANTS: Dr. Deng Borrego BRIEF HOSPITAL COURSE: Patient is an 83-year-old female, with history of CVA, aphasia, bedbound, diabetes mellitus, hypertension, seizure, with multiple decubiti and osteomyelitis history of nosocomial infections, long-term resident, was brought into ER due to worsening renal function. Patient was in vegetative state and is kept alive with artificial feeding. She was brought in to ED for abnormal outpatient lab work. Upon evaluation at the ED, vital signs were stable. Surgical scars on the left AKA dry and intact. She had increased tone in the upper extremities. Blood work showed WBC 12.3. Hemoglobin 9.8, hematocrit 31. Potassium was elevated to 5.6. Chloride 102. BUN was elevated to 85 and creatinine 2.3. Urinalysis showed 3+ protein, 1+ blood, negative nitrite, negative leukocyte esterase, 2-4 RBC, 0-2 WBC. She was given IV fluids. She was admitted for acute kidney injury. She was given IV hydration. Electrolytes were monitored. Patient came in with sacral and heel ulcers. Surgeon was consulted. Patient with no active open wounds. Recommended standard pressure injury prevention with offloading and padding of the foot. No debridement or surgical intervention was needed. Leukocytosis resolved, possibly. ID can observe off antibiotics. She was continued with antiplatelet therapy. Blood glucose monitored. She was given Levemir and insulin sliding scale. Hemoglobin A1c was going. She was placed on seizure precautions. Continued on bowel regimen. Social service was consulted. Patient was recommended comfort care, however niece was very resistant to palliative care. Patient had vaginal bleeding. Belly Packer consulted. She underwent pelvic ultrasound which was nondiagnostic. Endometrial thickening noted to be 4-5 mm. Patient on Eliquis for DVT. On external examination, there was no significant bleeding. No evidence of worsening anemia. Endometrial sampling would be an option, however, can be done as outpatient once patient's family can coordinate care. Endometrial lining did not appear to be thickened on ultrasound. Given that patient is not bleeding heavily and H&H was stable. She was cleared for discharge back to nursing care facility to follow-up with gynecology as an outpatient. She was then discharged back to long-term FINAL DIAGNOSES: Acute kidney injury Hyperkalemia Acute on chronic renal failure G-tube feeding At risk for aspiration Diabetes Functional quadriplegia Seizure disorder Dementia History of osteomyelitis Status post left AKA History of DVT Hypertension Dehydration Vaginal bleeding DISPOSITION: Patient was discharged to a SNF. DISCHARGE MEDICATIONS: Refer to Discharge Medication List. I have been assigned to complete a discharge summary on this account, I was not involved with the patient's management.--KARRIE Smith Jacqueline Robles NP Jan 25, 2019 14:45
== END 2019-01-23 20:30 | DRG 682 ==
LOC: EDBD 09:38 → EMR 10:18 → 4E 11:50 → EDBEDREQ 12:17 → 4E 01-21 20:20
DX: N17.9 Acute kidney failure, unspecified (principal); R53.2 Functional quadriplegia; R40.3 Persistent vegetative state; Z43.1 Encounter for attention to gastrostomy; I69.351 Hemiplegia and hemiparesis following cerebral infarction affecting right dominant side; E87.5 Hyperkalemia; F03.90 Unspecified dementia, unspecified severity, without behavioral disturbance, psychotic disturbance, mood disturbance, and anxiety; I12.9 Hypertensive chronic kidney disease with stage 1 through stage 4 chronic kidney disease, or unspecified chronic kidney disease; E11.22 Type 2 diabetes mellitus with diabetic chronic kidney disease; N18.9 Chronic kidney disease, unspecified; G40.909 Epilepsy, unspecified, not intractable, without status epilepticus; Z89.612 Acquired absence of left leg above knee; Z86.718 Personal history of other venous thrombosis and embolism; E86.0 Dehydration; N93.9 Abnormal uterine and vaginal bleeding, unspecified; Z88.8 Allergy status to other drugs, medicaments and biological substances; L89.159 Pressure ulcer of sacral region, unspecified stage; L89.609 Pressure ulcer of unspecified heel, unspecified stage; Z79.01 Long term (current) use of anticoagulants
CPT/HCPCS: 36415; 71045; 74176; 76856; 80048; 80053; 80061; 80076; 81003; 82270; 82378; 82550; 82607; 82728; 82746; 82962; 83036; 83540; 83550; 83615; 83735; 83880; 84100; 84133; 84300; 84443; 84550; 85007; 85025; 85044; 85060; 85610; 85651; 85730; 86140; 87081; 87324; 89050; 94664; 96360; 99285; J1815; S5561

== ENCOUNTER 2019-04-13 00:22 | Inpatient (IN) | payer MEDICARE, MEDICAID ==
[~2019-04-13] VITALS: Ht 149.9 cm; Wt 63.0 kg
[2019-04-13] VITALS (7 sets, daily range): BP systolic 122–179; BP diastolic 73–83
[~2019-04-13 00:22] MED LIST changes: +HUMALOG100 UNIT/1 SUBQ; +LEVETIRACE100 MG/1 M GT; +LORAZEPAM1 MG GT; +SPIRONOLACTONE100 MG GT; +SPIRONOLACTONE25 MG GT
--- NOTE | 2019-04-13 00:30 | NUR ---
ED Nurse Note: Pt brought in by ambulance from [facility], per staff pt is less responsive then usual, pt usually blinks to communicate, pt is obtunded, eyes closed, withdraws to pain. VSS
[2019-04-13 01:26] LABS: BILIRUBIN, URINE NEGATIVE (NEGATIVE); COLOR,URINE PALE YELLOW; GLUCOSE, URINE (UA) NEGATIVE (NEGATIVE); KETONES,URINE NEGATIVE (NEGATIVE); LEUKOCYTE ESTERASE ,URINE 2+ (NEGATIVE); NITRITE,URINE NEGATIVE (NEGATIVE); PH,URINE 6 (4.5-8.0); PROTEIN,URINE 4+ (NEGATIVE); UROBILINOGEN,URINE NORMAL MG/DL (0.0-1.0)
[2019-04-13 01:32] LABS: APPEARANCE,URINE SLIGHTLY CLOUDY
[2019-04-13 01:45] LABS: BASOPHILS % (AUTO) 0.5 % (0.0-2.0); EOSINOPHILS % (AUTO) 0.6 % (0.0-3.0); HEMATOCRIT 35.4 % (37.0-47.0); HEMOGLOBIN 11.4 G/DL (12.0-16.0); LYMPHOCYTES % (AUTO) 27.6 % (20.0-45.0); MEAN CORPUSCULAR VOLUME 102 FL (80-99); MONOCYTES % (AUTO) 7.2 % (1.0-10.0); NEUTROPHILS % (AUTO) 64.1 % (45.0-75.0); PLATELET COUNT 105 K/UL (150-450); RED BLOOD COUNT 3.48 M/UL (4.20-5.40); RED CELL DISTRIBUTION WIDTH 12.9 % (11.6-14.8); WHITE BLOOD COUNT 11.8 K/UL (4.8-10.8)
--- NOTE | 2019-04-13 01:58 | Emergency Room Report ---
History of Present Illness General Chief Complaint: Altered Level of Consciousness Source: Medical Record, EMS Present Illness HPI Patient presents by paramedics from nursing facility It was reported that for the past 24 hours the patient has not been acting like herself is usually more oriented and more responsive there was no reports of vomiting or diarrhea Unclear regarding fevers no obvious rash reported Patient appears chronically debilitated Paramedics report that the patient usually is able to blink and communicate In the form however has not been responsive Allergies: Coded Allergies: METOCLOPRAMIDE (Verified Allergy, Unknown, 03/10/18) extrapyramidal Sx Patient History Limited by: medical condition Past Medical History: see triage record Reviewed Nursing Documentation: PMH: Agreed; PSxH: Agreed Nursing Documentation-PMH Hx Cardiac Problems: No - Sepsis, DVT, LT BKA Hx Hypertension: Yes Hx Pacemaker: No Hx Asthma: No Hx COPD: Yes - PNA Hx Diabetes: Yes - DM2 Hx Cancer: No Hx Gastrointestinal Problems: Yes - G-tube Hx Dialysis: No 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 Hx Dementia: Yes Hx Seizures: Yes - Epilepsy Hx Epilepsy: Yes Hx Speech Problem: Yes - Non-verbal Hx Dysphasia: Yes - G-tube Review of Systems All Other Systems: limited - Other than the ones mentioned in the history of present illness all others are reviewed however they do stay limited due to the patient's mental status Physical Exam Vital Signs Date Time Temp Pulse Resp B/P (MAP) Pulse Ox O2 Delivery O2 Flow Rate FiO2 04/13/19 00:18 98.2 107 22 150/78 (102) 96 Room Air Sp02 EP Interpretation: reviewed, normal General Appearance: no apparent distress Head: normocephalic, atraumatic Eyes: bilateral eye PERRL ENT: EOM grossly intact Neck: supple Respiratory: lungs clear, no respiratory distress, no retraction Cardiovascular #1: regular rate, rhythm Gastrointestinal: non tender, soft Musculoskeletal: other - Chronically debilitated does not follow commands Neurologic: other - Normal response to physical stimuli Skin: no rash Lymphatic: no adenopathy Medical Decision Making Diagnostic Impression: Primary Impression: Sepsis Additional Impression: UTI (urinary tract infection) ER Course Patient's presentation is concerning multiple differentials are in consideration including but not limited to neurological, neurosurgical cardiac and infectious process, Patient sodium level is elevated urine does show significant infectious etiology Patient initiated on broad-spectrum antibiotics Remains hemodynamically stable with consideration for acute CVA patient's last known well was over 24 hours ago patient has no focal deficits and appears to be more consistent with infectious process Labs Test 04/13/19 01:00 04/13/19 01:10 Urine Color Pale yellow Urine Appearance Slightly cloudy Urine pH 6 (4.5-8.0) Urine Specific Bolton 1.010 (1.005-1.035) Urine Protein 4+ (NEGATIVE) Urine Glucose (UA) Negative (NEGATIVE) Urine Ketones Negative (NEGATIVE) Urine Blood 3+ (NEGATIVE) Urine Nitrite Negative (NEGATIVE) Urine Bilirubin Negative (NEGATIVE) Urine Urobilinogen Normal MG/DL (0.0-1.0) Urine Leukocyte Esterase 2+ (NEGATIVE) Urine RBC 5-10 /HPF (0 - 2) Urine WBC 40-60 /HPF (0 - 2) Urine Squamous Epithelial Cells Few /LPF (NONE/OCC) Urine Amorphous Sediment Many /LPF (NONE) Urine Bacteria Many /HPF (NONE) White Blood Count 11.8 K/UL (4.8-10.8) Red Blood Count 3.48 M/UL (4.20-5.40) Hemoglobin 11.4 G/DL (12.0-16.0) Hematocrit 35.4 % (37.0-47.0) Mean Corpuscular Volume 102 FL (80-99) Mean Corpuscular Hemoglobin 32.6 PG (27.0-31.0) Mean Corpuscular Hemoglobin Concent 32.1 G/DL (32.0-36.0) Red Cell Distribution Width 12.9 % (11.6-14.8) Platelet Count 105 K/UL (150-450) Mean Platelet Volume 9.0 FL (6.5-10.1) Neutrophils (%) (Auto) 64.1 % (45.0-75.0) Lymphocytes (%) (Auto) 27.6 % (20.0-45.0) Monocytes (%) (Auto) 7.2 % (1.0-10.0) Eosinophils (%) (Auto) 0.6 % (0.0-3.0) Basophils (%) (Auto) 0.5 % (0.0-2.0) Sodium Level 155 MMOL/L (136-145) Potassium Level 4.7 MMOL/L (3.5-5.1) Chloride Level 118 MMOL/L (98-107) Carbon Dioxide Level 27 MMOL/L (21-32) Anion Gap 10 mmol/L (5-15) Blood Urea Nitrogen 101 mg/dL (7-18) Creatinine 3.2 MG/DL (0.55-1.30) Estimat Glomerular Filtration Rate mL/min (>60) Glucose Level 284 MG/DL (74-106) Lactic Acid Level 2.10 mmol/L (0.4-2.0) Calcium Level 8.8 MG/DL (8.5-10.1) Total Bilirubin 0.3 MG/DL (0.2-1.0) Aspartate Amino Transf (AST/SGOT) 14 U/L (15-37) Alanine Aminotransferase (ALT/SGPT) 19 U/L (12-78) Alkaline Phosphatase 116 U/L (46-116) Total Creatine Kinase 86 U/L (26-308) Creatine Kinase MB < 0.5 NG/ML (0.0-3.6) Creatine Kinase MB Relative Index 0.5 Troponin I 0.064 ng/mL (0.000-0.056) Pro-B-Type Natriuretic Peptide 1110 pg/mL (0-125) Total Protein 9.6 G/DL (6.4-8.2) Albumin 3.4 G/DL (3.4-5.0) Globulin 6.2 g/dL Albumin/Globulin Ratio 0.5 (1.0-2.7) Lipase 628 U/L (73-393) Rhythm Strip Diag. Results EP Interpretation: yes Rate: 88 Rhythm: NSR, no PVC's, no ectopy Chest X-Ray Diagnostic Results Chest X-Ray Diagnostic Results : Chest X-Ray Ordered: Yes # of Views/Limited/Complete: 1 View Indication: Chest Pain EP Interpretation: Yes Interpretation: no consolidation, no effusion, no pneumothorax Impression: No acute disease Electronically Signed by: Santos eDe DO Last Vital Signs Date Time Temp Pulse Resp B/P (MAP) Pulse Ox O2 Delivery O2 Flow Rate FiO2 04/13/19 00:38 98.2 101 41 142/73 98 Room Air Status: improved Disposition: ADMITTED INPATIENT Condition: Serious Referrals: Estevan Orozco MD (PCP) Santos Dee DO Apr 13, 2019 01:58
[2019-04-13 02:00] LABS: ANION GAP 10 mmol/L (5-15); BLOOD UREA NITROGEN 101 mg/dL (7-18); CALCIUM 8.8 MG/DL (8.5-10.1); CARBON DIOXIDE 27 MMOL/L (21-32); CHLORIDE 118 MMOL/L (98-107); CREATININE 3.2 MG/DL (0.55-1.30); POTASSIUM 4.7 MMOL/L (3.5-5.1); SODIUM 155 MMOL/L (136-145)
[2019-04-13] MEDS ORDERED: cefTRIAXone 1 GM in NS 55 ML IVPB ONE (02:00)
[2019-04-13 02:15] LABS: ALANINE AMINOTRANSFERASE 19 U/L (12-78); ALBUMIN 3.4 G/DL (3.4-5.0); ALBUMIN/GLOBULIN RATIO 0.5 (1.0-2.7); ALKALINE PHOSPHATASE 116 U/L (46-116); ASPARTATE AMINO TRANSFERASE 14 U/L (15-37); BILIRUBIN,TOTAL 0.3 MG/DL (0.2-1.0); CKMB < 0.5 NG/ML (0.0-3.6); CREATINE KINASE 86 U/L (26-308)
--- NOTE | 2019-04-13 02:30 | NUR ---
ED Nurse Note: Pt laying in bed on R side, reponsive to deep pain, pt on room air, repositioned to comfort. Iv fluids infusing per order
--- NOTE | 2019-04-13 02:46 | Diagnostic Imaging Report ---
Indications: Altered mental status Technique: Spiral acquisitions obtained through the brain. Angled axial and coronal 5 x 5 mm slices were reconstructed. Total dose length product 1426 mGycm. CTDI vol(s) 62 mGy. Dose reduction achieved using automated exposure control Comparison: 03/05/2018 Findings: Again demonstrated is encephalomalacia involving the left parietal and temporal lobes. Again demonstrated is marked age-related enlargement of the ventricles and extra-axial CSF spaces. Again demonstrated is extensive periventricular deep white matter low-attenuation, consistent with chronic microvascular ischemic change. No acute intracranial hemorrhage or edema. No mass effect nor midline shift. The calvarium is intact. The mastoids are clear. The orbits are unremarkable Impression: Chronic and age-related changes, as described Old left cerebral artery territory infarct again demonstrated. Negative for acute intracranial bleed or mass effect This agrees with the preliminary interpretation provided overnight by [facility] service The CT scanner at [facility] is accredited by the [employer] and the scans are performed using protocols designed to limit radiation exposure to as low as reasonably achievable to attain images of sufficient resolution adequate for diagnostic evaluation.
--- NOTE | 2019-04-13 04:00 | NUR ---
TRANSFER TO FLOOR: Patient transferred to as ordered, per Dr Orozco. Report given to LUIS Lay. Belongings and medications given to . Family and or S/O informed of transfer.
--- NOTE | 2019-04-13 04:30 | NUR ---
NURSE NOTES: Received report from LUIS Dolan. Patient arrived by marcia at 0410. On room air with no signs of distress or SOB. Obtunded. Belongings checked with ER nurse. WCP uploaded. IV in R hand patent and intact. L BKA noted. Clamped RUQ G-tube noted. Side rails padded for seizure precaution. 3x side rails up. Bed locked and in lowest position. Call light in reach. Left message with primary MD. Awaiting call back. Will continue to monitor.
[2019-04-13] MEDS ORDERED: LORazepam 1mg tab GT PRN (05:00)
[2019-04-13] MEDS ORDERED: HydrALAZINE 25mg tab GT PRN (05:00)
--- NOTE | 2019-04-13 05:24 | NUR ---
NURSE NOTES: Orders received from
[2019-04-13] MEDS: Nitroglycerin Patch 0.4mg TDERMAL SCH (06:14)
[2019-04-13] MEDS: NovoLOG Insulin Flexpen SUBQ SCH ×3 (06:32→17:06)
[2019-04-13] MEDS ORDERED: Erythromycin Ethylsuccinate 200mg/5ml Susp GT SCH (07:00)
--- NOTE | 2019-04-13 07:38 | NUR ---
HAND-OFF: Report given to LUIS Sommer.
--- NOTE | 2019-04-13 08:04 | NUR ---
NURSE NOTES: pt resting in bed, awake, a/O x 0, non-verbal, calm, no SOB noted, L AKA, dressing CDI, martinez in place, draining clear yellow urine, NPO, G tube in place, clamped. IVF infusing. side rails padded, bed alarm on, fall, asp and seizure precaution maintained. will continue to monitor.
[2019-04-13] MEDS: Erythromycin Ethylsuccinate 200mg/5ml Susp GT SCH ×3 (08:41→21:24)
[2019-04-13] MEDS: Eliquis 2.5mg tablet GT SCH ×2 (08:41→16:55)
[2019-04-13] MEDS: levETIRAcetam 500mg/5ml Liquid GT SCH ×2 (08:42→21:24)
[2019-04-13 09:46] LABS: ALANINE AMINOTRANSFERASE 16 U/L (12-78); ALBUMIN/GLOBULIN RATIO 0.5 (1.0-2.7); ALKALINE PHOSPHATASE 99 U/L (46-116); ANION GAP 15 mmol/L (5-15); ASPARTATE AMINO TRANSFERASE 14 U/L (15-37); BILIRUBIN,TOTAL 0.3 MG/DL (0.2-1.0); BLOOD UREA NITROGEN 93 mg/dL (7-18); CARBON DIOXIDE 21 MMOL/L (21-32); CHLORIDE 120 MMOL/L (98-107); CHOLESTEROL 146 MG/DL (< 200); CREATININE 2.9 MG/DL (0.55-1.30); HDL CHOLESTEROL 32 MG/DL (40-60); PHOSPHORUS 5.4 MG/DL (2.5-4.9); POTASSIUM 4.3 MMOL/L (3.5-5.1); SODIUM 156 MMOL/L (136-145); TRIGLYCERIDES 161 MG/DL (30-150)
--- NOTE | 2019-04-13 10:45 | NUR ---
NURSE NOTES: notified Dr. Orozco , pts troponin 0.079, Na 156, MG 2.9, Lipase 597, Bun 93, Creat 2.9, received orders.
--- NOTE | 2019-04-13 11:57 | Diagnostic Imaging Report ---
Indication: Chest pain Technique: One view of the chest Comparison: 01/19/2019 Findings: No acute infiltrates, effusions, or congestion. Tortuous calcified aorta. Normal heart size. Upper mediastinum unremarkable. No significant interim change Impression: No acute process.
[2019-04-13] MEDS ORDERED: Levemir Flexpen SUBQ SCH (12:00)
--- NOTE | 2019-04-13 12:25 | History & Physical ---
History and Physical History & Physicial Acute on chronic renal failure UTI High Lipase Dehydration Hyperkalemia Seizure disorder Dementia Diabetes mellitus, Reglan Allergy labs checked monitor I&O and Renal parameters Hydrate- Keep BP and BS in check full code per family avoid Nephrotoxics monitor renal parameters per ordeers [id number] Estevan Orozco MD Apr 13, 2019 12:25
[2019-04-13] MEDS ORDERED: Acetaminophen 650mg/20.3ml GT PRN (12:30)
--- NOTE | 2019-04-13 14:58 | NUR ---
SUPERINTENDENT TRANSPORTATIONFILM SOUND COORDINATOR 83 YO FEMALE BIBA FROM [facility] TO ER CC ALOC SI: UTI,SEPSIS T. 98.2 HR 101 RR 22 B/P 150/78 NA 155 WBC 11.8 BUN 101 CR 3.2 TROP 0.064 BNP 1110 LIPASE 628 UA+ PROTEIN,BLOOD,LEUKOCYTE ESTERASE CXR= NO ACUTE PROCESS IS: ROCEPHIN IV IV BOLUS NS X 1 LITER ADMITTED TO MED/SURG @ 0400 MED/SURG STATUS DCP [facility]
--- NOTE | 2019-04-13 19:23 | NUR ---
NURSE NOTES: Patient in bed, asleep. Nonverbal. On room air with no signs of distress or SOB. IV intact and running fluids at this time. NPO status. RUQ g-tube in place. Umaña in place and draining well. Bed locked and in lowest position. Side rails padded. Will continue to monitor the patient.
[2019-04-14] VITALS: BP 102/61
[2019-04-14] MEDS: NovoLOG Insulin Flexpen SUBQ SCH ×4 (00:28→18:06)
[2019-04-14] MEDS: cefTRIAXone 1 GM in D5W 55 ML IVPB SCH (02:12)
[2019-04-14] MEDS: Erythromycin Ethylsuccinate 200mg/5ml Susp GT SCH ×4 (02:12→21:10)
[2019-04-14 04:00] VITALS: BP 92/44
[2019-04-14] MEDS: Nitroglycerin Patch 0.4mg TDERMAL SCH (05:01)
[2019-04-14 06:39] LABS: HEMATOCRIT 27.3 % (37.0-47.0); HEMOGLOBIN 8.8 G/DL (12.0-16.0); MEAN CORPUSCULAR VOLUME 101 FL (80-99); PLATELET COUNT 82 K/UL (150-450); RED BLOOD COUNT 2.71 M/UL (4.20-5.40); RED CELL DISTRIBUTION WIDTH 12.9 % (11.6-14.8); WHITE BLOOD COUNT 9.1 K/UL (4.8-10.8)
[2019-04-14 07:26] LABS: ALANINE AMINOTRANSFERASE 11 U/L (12-78); ALBUMIN 3.1 G/DL (3.4-5.0); ALBUMIN/GLOBULIN RATIO 0.6 (1.0-2.7); ALKALINE PHOSPHATASE 90 U/L (46-116); ANION GAP 13 mmol/L (5-15); ASPARTATE AMINO TRANSFERASE 17 U/L (15-37); BILIRUBIN,TOTAL 0.3 MG/DL (0.2-1.0); BLOOD UREA NITROGEN 102 mg/dL (7-18); CALCIUM 8.2 MG/DL (8.5-10.1); CARBON DIOXIDE 22 MMOL/L (21-32); CHLORIDE 113 MMOL/L (98-107); CREATININE 2.9 MG/DL (0.55-1.30); PHOSPHORUS 6.2 MG/DL (2.5-4.9); SODIUM 148 MMOL/L (136-145)
--- NOTE | 2019-04-14 07:45 | NUR ---
NURSE NOTES: Patient in A/A/O NONVERBAL. eyes open and respond to tactile/pain stimuli. On room air with no signs of distress or SOB. keep hob elevated. IV access patent and intact. IVF infusing well. NPO status. RUQ g-tube in placed and clamped. Umaña in place and draining well. Bed locked and in lowest position. Side rails padded. Will continue to monitor.
--- NOTE | 2019-04-14 07:52 | NUR ---
HAND-OFF: Report given to LUIS Tay.
[2019-04-14 08:00] VITALS: BP 98/62
[2019-04-14] MEDS: Eliquis 2.5mg tablet GT SCH ×2 (08:54→17:51)
[2019-04-14] MEDS: levETIRAcetam 500mg/5ml Liquid GT SCH ×2 (09:02→21:10)
--- NOTE | 2019-04-14 11:55 | NUR ---
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 2) Swallowing difficulty R/T dysphagia as evidenced by pt is PEG dep, NPO at this time. 3) Altered nutrition related lab values R/T dehydration and clinical conditions as evidenced by elev Na (148), elev BUN/creat (102/2.9), elev phos (6.2), elev lipase (883 trend up). CURRENT TF:NPO ENTERAL NUTRITION RECOMMENDATIONS: Glucerna 1.2 @ 50ml/hr x 24 hrs to provide 1200ml, 1440kcal, 72g prot, 966ml free water * As medically appropriate, initiate Glucerna 1.2 @ 30ml/hr x 6hrs * Advance 10ml q 4-6 hrs as tolerated to goal. * HOB over 30 degrees/ H2O flush per MD ADDITIONAL RECOMMENDATIONS: 1) Per SNF: HT=60", SQ=061bbb (as of 04/13/19) rec weekly calibrated bedscale wts 2) Monitor phos closely, need for TF change to renal formula 3) F/up with wound eval -> add Vit C 250mg QD and Damian 1pkt BID for wound healing . .
[2019-04-14 12:07] VITALS: BP 107/81
--- NOTE | 2019-04-14 12:09 | NUR ---
NURSE NOTES:Pt presented with MASD mons pubis, Bilat groin, medial aspects of both upper thighs,Non-blanching erythema with denuded skin noted to abd folds,
--- NOTE | 2019-04-14 12:24 | NUR ---
NURSE NOTES:WOUND CARE NOTES:Pt presented with MASD mons pubis, Bilat groin, medial aspects of both upper thighs. Erythema with denuded skin noted.Sacral hyperpigmentation from previous wound noted to sacrum. 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 Unstageable pressure injury R Hallux. Soft necrotic cap noted with surrounding semi-detached borders.(L)1.4cm x (W)1cm. Periwound skin is dry and black. Hyperpigmentation with Scarring noted to R heel. Tx.Plan: Apply Betadine to R hallux. Cover with Optifoam drsg Daily and prn. Apply Remedy Antifungal Cream to abd folds ,Mons Pubis and medial aspects of both upper thighs Twice Daily. Apply Triad Paste to sacrum. Cover with Optifoam drsg. Change every 3 days and prn. Reposition at least every 2hours or as tolerated. Off-load R heel with pillow. Addendum: 04/14/19 at 1637 by Anderson Odom LVN ADDENDUM TO ABOVE WOUND NOTES:Spoke to in regards to wound R hallux. Pt is known to and is being seen as an outpatient by for wound R hallux.
[2019-04-14] MEDS ORDERED: traMADol 50mg tab ORAL SCH (14:15)
--- NOTE | 2019-04-14 14:18 | General Progress Note ---
Assessment/Plan Problem List: (1) Acute on chronic renal failure ICD Codes: N17.9 - Acute kidney failure, unspecified; N18.9 - Chronic kidney disease, unspecified SNOMED: 080510033 (2) Gastroparesis due to DM ICD Codes: E11.43 - Type 2 diabetes mellitus with diabetic autonomic (poly) neuropathy; K31.84 - Gastroparesis SNOMED: 128265692 (3) UTI (urinary tract infection) ICD Codes: N39.0 - UTI (urinary tract infection) SNOMED: 29349686 (4) Seizure disorder ICD Codes: G40.909 - Epilepsy, unspecified, not intractable, without status epilepticus SNOMED: 140626621 (5) Dementia ICD Codes: F03.90 - Dementia SNOMED: 96227165 (6) DVT (deep vein thrombosis) in ICD Codes: O22.30 - Deep phlebothrombosis in , unspecified trimester; I82.409 - Acute embolism and thrombosis of unspecified deep veins of unspecified lower extremity SNOMED: 73696688 (7) Elevated lipase ICD Codes: R74.8 - Abnormal levels of other serum enzymes SNOMED: 846801168 Status Narrative Acute on chronic renal failure UTI High Lipase Dehydration Hyperkalemia Seizure disorder Dementia Diabetes mellitus, Reglan Allergy Assessment/Plan: labs checked NPO- Lipase still elevated abd EWA monitor I&O and Renal parameters Hydrate- Keep BP and BS in check full code per family avoid Nephrotoxics monitor renal parameters Id GI surg eval Subjective ROS Limited/Unobtainable: No Constitutional: Reports: malaise, other - nonverbal Allergies: Coded Allergies: METOCLOPRAMIDE (Verified Allergy, Unknown, 03/10/18) extrapyramidal Sx Objective Last 24 Hour Vital Signs Date Time Temp Pulse Resp B/P (MAP) Pulse Ox O2 Delivery O2 Flow Rate FiO2 04/14/19 12:07 98.2 79 20 107/81 (90) 100 04/14/19 08:55 68 98/62 04/14/19 08:54 68 98/62 04/14/19 08:00 97.6 68 20 98/62 (74) 99 04/14/19 05:01 92/44 04/14/19 04:00 98.2 70 18 92/44 (60) 100 12/10/19 00:00 98.6 70 20 102/61 (75) 100 04/13/19 21:24 78 122/83 04/13/19 20:17 Room Air 04/13/19 20:00 97.4 78 20 122/83 (96) 100 04/13/19 16:00 98.0 85 20 144/83 (103) 99 Intake and Output 04/13/19 04/14/19 19:00 07:00 Output Total 350 ml 150 ml Balance -350 ml -150 ml Output Urine Total 350 ml 150 ml # Bowel Movements 1 3 Laboratory Tests 04/14/19 06:10: White Blood Count 9.1, Red Blood Count 2.71L, Hemoglobin 8.8L, Hematocrit 27.3L , Mean Corpuscular Volume 101H, Mean Corpuscular Hemoglobin 32.3H, Mean Corpuscular Hemoglobin Concent 32.1, Red Cell Distribution Width 12.9, Platelet Count 82L, Mean Platelet Volume 9.8, Neutrophils (%) (Auto) , Lymphocytes (%) ( Auto) , Monocytes (%) (Auto) , Eosinophils (%) (Auto) , Basophils (%) (Auto) , Differential Total Cells Counted 100, Neutrophils % (Manual) 58, Lymphocytes % ( Manual) 38, Monocytes % (Manual) 2, Eosinophils % (Manual) 1, Basophils % ( Manual) 0, Band Neutrophils 1, Platelet Estimate DecreasedL, Platelet Morphology Normal, Macrocytosis 1+, Sodium Level 148H, Potassium Level 4.0, Chloride Level 113H, Carbon Dioxide Level 22, Anion Gap 13, Blood Urea Nitrogen 102H, Creatinine 2.9H, Estimat Glomerular Filtration Rate , Glucose Level 158#H , Calcium Level 8.2L, Phosphorus Level 6.2H, Magnesium Level 2.9H, Total Bilirubin 0.3, Aspartate Amino Transf (AST/SGOT) 17, Alanine Aminotransferase ( ALT/SGPT) 11L, Alkaline Phosphatase 90, Total Protein 8.4H, Albumin 3.1L, Globulin 5.3, Albumin/Globulin Ratio 0.6L, Lipase 883H Height (Feet): 4 Height (Inches): 11.00 Weight (Pounds): 140 General Appearance: mild distress Neck: limited range of motion Cardiovascular: normal rate Respiratory/Chest: decreased breath sounds Abdomen: distended Estevan Orozco MD Apr 14, 2019 14:18
--- NOTE | 2019-04-14 14:50 | Consultation ---
History of Present Illness General Date patient seen: Apr 14, 2019 Chief Complaint: Altered Level of Consciousness Present Illness HPI 83 y/o F with hx of DVT, L BKA, HTN, COPD, Dm2, Dementia, dysphagia s/p GT, CVA w/ R side weakness, seizure disorder, non-verbal, CKD, SNF resident presented to ED on 04/13 with altered mental status No report of vomiting or diarrhea Allergies: Coded Allergies: METOCLOPRAMIDE (Verified Allergy, Unknown, 03/10/18) extrapyramidal Sx Medication History Scheduled Acetaminophen* (Tylenol Extra Strength*), 1,000 MG GT DAILY, (Reported) Amino Acids/Protein Hydrolys (Pro-Stat Liquid), 30 ML GT DAILY, (Reported) Amlodipine Besylate (Norvasc), 10 MG GT DAILY, (Reported) Apixaban (Eliquis), 2.5 MG GT BID, (Reported) Ascorbic Acid* (Vitamin C*), 500 MG GT DAILY, (Reported) Cranberry Fruit (Cranberry), 450 MG GT DAILY, (Reported) Erickson E-Succ/Sulfisoxazole (Erythromycin-Sulfisox Susp), 50 MG GT Q6HR Insulin Detemir (Levemir Flexpen), 20 UNITS SUBQ Q12HR Lansoprazole* (Lansoprazole*), 30 MG GT BID Levetiracetam* (Levetiracetam*), 1,250 MG GT Q12HR, (Reported) Multivitamin Liquid* (Multi-Delyn*), 5 ML GT DAILY, (Reported) Nitroglycerin (Nitro-Dur), 0.4 MG TD DAILY, (Reported) Zinc Sulfate (Zinc Sulfate*), 220 MG GT DAILY, (Reported) Scheduled PRN Acetaminophen* (Acetaminophen 325MG Tablet*), 650 MG GT Q4H PRN for Mild Pain/ Temp > 100.5, (Reported) Hydralazine Hcl* (Hydralazine Hcl*), 25 MG GT Q4H PRN Lorazepam* (Lorazepam*), 1 MG GT DAILY PRN for For Anxiety, (Reported) Polyethylene Glycol 3350* (Miralax*), 17 GM GT DAILY PRN for Constipation, ( Reported) Miscellaneous Medications Insulin Lispro (Humalog), 0 SUBQ, (Reported) Patient History Healthcare decision maker Resuscitation status Advanced Directive on File Patient History Narrative Pmhx: as above Shx: reviewed Fhx: non contributory Review of Systems All Other Systems: negative except mentioned in HPI Physical Exam Physical Exam Narrative General Appearance: mild distress Neck: limited range of motion Cardiovascular: normal rate Respiratory/Chest: decreased breath sounds Abdomen: distended Last 24 Hour Vital Signs Date Time Temp Pulse Resp B/P (MAP) Pulse Ox O2 Delivery O2 Flow Rate FiO2 04/14/19 12:07 98.2 79 20 107/81 (90) 100 04/14/19 08:55 68 98/62 04/14/19 08:54 68 98/62 04/14/19 08:00 97.6 68 20 98/62 (74) 99 04/14/19 05:01 92/44 04/14/19 04:00 98.2 70 18 92/44 (60) 100 04/14/19 00:00 98.6 70 20 102/61 (75) 100 04/13/19 21:24 78 122/83 04/13/19 20:17 Room Air 04/13/19 20:00 97.4 78 20 122/83 (96) 100 04/13/19 16:00 98.0 85 20 144/83 (103) 99 Intake and Output 04/13/19 04/14/19 19:00 07:00 Output Total 350 ml 150 ml Balance -350 ml -150 ml Output Urine Total 350 ml 150 ml # Bowel Movements 1 3 Laboratory Tests Test 04/14/19 06:10 White Blood Count 9.1 K/UL (4.8-10.8) Red Blood Count 2.71 M/UL (4.20-5.40) L Hemoglobin 8.8 G/DL (12.0-16.0) L Hematocrit 27.3 % (37.0-47.0) L Mean Corpuscular Volume 101 FL (80-99) H Mean Corpuscular Hemoglobin 32.3 PG (27.0-31.0) H Mean Corpuscular Hemoglobin Concent 32.1 G/DL (32.0-36.0) Red Cell Distribution Width 12.9 % (11.6-14.8) Platelet Count 82 K/UL (150-450) L Mean Platelet Volume 9.8 FL (6.5-10.1) Neutrophils (%) (Auto) % (45.0-75.0) Lymphocytes (%) (Auto) % (20.0-45.0) Monocytes (%) (Auto) % (1.0-10.0) Eosinophils (%) (Auto) % (0.0-3.0) Basophils (%) (Auto) % (0.0-2.0) Differential Total Cells Counted 100 Neutrophils % (Manual) 58 % (45-75) Lymphocytes % (Manual) 38 % (20-45) Monocytes % (Manual) 2 % (1-10) Eosinophils % (Manual) 1 % (0-3) Basophils % (Manual) 0 % (0-2) Band Neutrophils 1 % (0-8) Platelet Estimate Decreased L Platelet Morphology Normal Macrocytosis 1+ Sodium Level 148 MMOL/L (136-145) H Potassium Level 4.0 MMOL/L (3.5-5.1) Chloride Level 113 MMOL/L (98-107) H Carbon Dioxide Level 22 MMOL/L (21-32) Anion Gap 13 mmol/L (5-15) Blood Urea Nitrogen 102 mg/dL (7-18) H Creatinine 2.9 MG/DL (0.55-1.30) H Estimat Glomerular Filtration Rate mL/min (>60) Glucose Level 158 MG/DL (74-106) #H Calcium Level 8.2 MG/DL (8.5-10.1) L Phosphorus Level 6.2 MG/DL (2.5-4.9) H Magnesium Level 2.9 MG/DL (1.8-2.4) H Total Bilirubin 0.3 MG/DL (0.2-1.0) Aspartate Amino Transf (AST/SGOT) 17 U/L (15-37) Alanine Aminotransferase (ALT/SGPT) 11 U/L (12-78) L Alkaline Phosphatase 90 U/L (46-116) Total Protein 8.4 G/DL (6.4-8.2) H Albumin 3.1 G/DL (3.4-5.0) L Globulin 5.3 g/dL Albumin/Globulin Ratio 0.6 (1.0-2.7) L Lipase 883 U/L (73-393) H Height (Feet): 4 Height (Inches): 11.00 Weight (Pounds): 140 Medications Current Medications Medications (Trade) Dose Ordered Sig/Nancy Route PRN Reason Start Time Stop Time Status Last Admin Dose Admin Acetaminophen (Tylenol) 650 mg Q4H PRN GT Mild Pain/Temp > 100.5 04/13/19 12:30 05/13/19 04:59 Albumin Human (Albuminar-5) 500 ml ONCE IV 04/14/19 15:00 04/14/19 18:00 Apixaban (Eliquis) 2.5 mg BID GT 04/13/19 09:00 05/13/19 08:59 Ceftriaxone Sodium 1 gm/ Dextrose 55 ml @ 110 mls/hr Q24H IVPB 04/14/19 02:00 04/21/19 01:59 04/14/19 02:12 Dextrose 1,000 ml @ 100 mls/hr Q10H IV 04/13/19 10:52 05/13/19 10:51 04/14/19 06:22 Dextrose (Dextrose 50%) 25 ml Q30M PRN IV Hypoglycemia 04/13/19 05:15 05/13/19 05:14 Dextrose (Dextrose 50%) 50 ml Q30M PRN IV Hypoglycemia 04/13/19 05:15 05/13/19 05:14 Erythromycin (Erickson-Ped) 50 mg Q6H GT 04/13/19 09:00 04/20/19 08:59 04/14/19 09:03 Hydralazine HCl (Apresoline) 25 mg Q4H PRN GT bp over 160 syst 04/13/19 05:00 05/13/19 04:59 Insulin Aspart (NovoLOG) Q6HR SUBQ 04/13/19 06:00 05/13/19 05:59 04/14/19 12:16 Lansoprazole (Prevacid) 30 mg BID GT 04/13/19 09:00 05/13/19 08:59 04/14/19 09:03 Levetiracetam (Keppra) 1,250 mg Q12HR GT 04/13/19 09:00 05/13/19 08:59 04/14/19 09:02 Lorazepam (Ativan) 1 mg DAILY PRN GT For Anxiety 04/13/19 05:00 04/20/19 04:59 Metoprolol Tartrate (Lopressor) 12.5 mg Q12HR GT 04/14/19 21:00 05/13/19 12:29 Nitroglycerin (Ntg) 1 patch Q24H TDERMAL 04/13/19 06:00 05/13/19 05:59 04/13/19 06:14 Tramadol HCl (Ultram) 25 mg Q6HR ORAL 04/14/19 15:00 04/21/19 14:59 Tramadol HCl (Ultram) 50 mg ONCE ORAL 04/14/19 14:15 04/14/19 15:30 Assessment/Plan Assessment/Plan: Abx: Ceftriaxone 04/13- Assessment: Sepsis Probable UTI -u/a wbc 40-60, nit neg, leuk +2; ucx 30-40k GNR -BCx NTD -CXR: no acute disease Afebrile Leukocytosis, SP Pancreatitis Acute on chronic encephalopathy hx of DVT L BKA HTN COPD Dm2 Dementia dysphagia s/p GT CVA w/ R side weakness seizure disorder non-verbal CKD SNF resident Plan: -Continue empiric Ceftriaxone #2 pending urine culture -low threshold to switch to ZOsyn or Meropenem if febrile, worsening leukocytosis and/or HD unstable -f/u cx -Monitor CBC/CMP, temperatures -PEG care -aspiration precautions Thank you for this consultation. Will continue to follow along with you. Discussed with Nkechi Egan M.D. Apr 14, 2019 14:50
[2019-04-14] MEDS: traMADol 50mg tab ORAL SCH ×2 (15:00→23:35)
[2019-04-14] MEDS ORDERED: Albumin Human 5% 500ml IV SCH (15:00)
[2019-04-14 16:00] VITALS: BP 100/75
--- NOTE | 2019-04-14 17:58 | Diagnostic Imaging Report ---
Indication: Increased renal function tests Technique: Grayscale and duplex images of the kidneys, retroperitoneum, and bladder were obtained. Comparison: 08/14/2010; also abdomen pelvis CT dated 01/22/2019 Findings: Right kidney measures 10.3 cm in length. Left kidney measures 9.1 cm in length. Both kidneys demonstrate slightly increased echogenicity. No hydronephrosis. Hydronephrosis described on recent CT scan is not clearly evident. Cysts are seen in the left kidney. Normal inferior vena cava. Bladder is normal. Impression: Mildly increased renal echogenicity bilaterally, may indicate medical renal disease Negative for hydronephrosis Incidental finding small left renal cysts.
--- NOTE | 2019-04-14 18:35 | NUR ---
NURSE NOTES: applied the antifungal cream to groin, abdominal folds. placed pillow cases in between abdominal folds and breastfolds to minimize moistures. will cont to monitor.
[2019-04-14] MEDS ORDERED: ASPIRIN81 MG GT (18:59)
[2019-04-14] MEDS ORDERED: SKIN PROTECTAN113 GM TP (18:59)
[2019-04-14] MEDS ORDERED: VITAMIN A & D113 GM TP (18:59)
[2019-04-14] MEDS ORDERED: MULTIVITAMINS1 EAC8 GT (18:59)
--- NOTE | 2019-04-14 19:05 | NUR ---
HAND-OFF: Report given to Erin
--- NOTE | 2019-04-14 19:20 | NUR ---
NURSE NOTES: Patient in bed, awake and nonverbal. On room air with no signs of distress or SOB. IV intact and running fluids at this time. NPO status. RUQ g-tube in place and clamped. Umaña in place and draining well. Bed locked and in lowest position. Side rails padded. Will continue to monitor the patient.
[2019-04-14 19:54] VITALS: BP 100/56
[2019-04-14] MEDS: Metoprolol Tartrate 12.5mg TAB GT SCH (20:11)
--- NOTE | 2019-04-14 20:15 | History and Physical Report ---
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 The reason for transfer from [facility] to ER was a little sketchy. However after initial evaluation by the ER physician, the patient was admitted with a diagnosis of acute renal failure and urinary tract infection. The patient was found to have high lipase and also hyperkalemia. 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 PHYSICAL EXAMINATION: GENERAL: On examination on the day that the patient was seeing, the patient was lethargic. VITAL SIGNS: Temperature 98.2, blood pressure 150/78, pulse ox 96 percent, and nonverbal. HEENT: Tongue out, lips swollen, but no change from previously. NECK: Rigid to all directions. LUNGS: Decreased breath sounds over the bases. HEART: Regular. Slightly tachycardia. ABDOMEN: Distended. GT tube in place and bowel sounds decreased. NEURO: The patient occasionally moves the extremities. INITIAL LABORATORY DATA: Hemoglobin 11.4 and white blood cells 11.8. BUN 93 and creatinine 2.9. Sodium 156 and chloride 120. Albumin 3. The urine had 60 white blood cells, and 2+ leukocyte esterase. The lipase was elevated to 597. IMPRESSION: The patient has acute on chronic renal failure, UTI, high lipase, possible pancreatitis, dehydration, hyperkalemia, seizure disorder, dementia, diabetes mellitus, and the patient has allergy to Reglan. PLAN: Plan to monitor renal parameters, hydrate with D5W, keep NPO. The patient is Full Code per family. We will avoid nephrotoxics. Continue ceftriaxone and we will order GI and ID evaluation and according to how the patient's condition evolves, we will make the proper changes in our future management. Estevan Orozco M.D. DR: PRISCILA JOB#: [id number] CC:
--- NOTE | 2019-04-14 20:57 | Consultation ---
History of Present Illness General Date patient seen: Apr 14, 2019 Chief Complaint: Altered Level of Consciousness Present Illness HPI This is a 83-year-old female well-known to me from multiple prior admissions and surgical intervention. Patient is a skilled nursing resident full care with multiple medical comorbidities. She presents with abnormal labs and altered mental status. On admission identified to have pancreatitis, leukocytosis, abnormal labs, multiple decubitus ulcers. Surgery called to evaluate and assist with care. Patient seen, patient evaluated, chart reviewed. Patient unable to provide any history or participate in exam given her chronic medical comorbidities and current mental status. Allergies: Coded Allergies: METOCLOPRAMIDE (Verified Allergy, Unknown, 03/10/18) extrapyramidal Sx Medication History Scheduled Acetaminophen* (Tylenol Extra Strength*), 1,000 MG GT DAILY, (Reported) Amlodipine Besylate (Norvasc), 10 MG GT DAILY, (Reported) Apixaban (Eliquis), 2.5 MG GT BID, (Reported) Ascorbic Acid* (Vitamin C*), 500 MG GT DAILY, (Reported) Aspirin* (Aspirin*), 81 MG GT DAILY, (Reported) Cranberry Fruit (Cranberry), 450 MG GT DAILY, (Reported) Erickson E-Succ/Sulfisoxazole (Erythromycin-Sulfisox Susp), 50 MG GT Q6HR Insulin Detemir (Levemir Flexpen), 20 UNITS SUBQ Q12HR Insulin Lispro (Humalog), 0 SUBQ Q6HR, (Reported) Lansoprazole* (Lansoprazole*), 30 MG GT BID Levetiracetam* (Levetiracetam*), 1,000 MG GT Q12HR, (Reported) Multivitamin With Minerals (Multivitamins With Minerals*), 1 TAB GT DAILY, ( Reported) Petrolatum,White/Lanolin (Vitamin A & D Ointment), 1 APPLIC TP DAILY, (Reported) Zinc Oxide (Skin Protectant), 1 APPLIC TP DAILY, (Reported) Scheduled PRN Acetaminophen* (Acetaminophen 325MG Tablet*), 650 MG GT Q4H PRN for Mild Pain/ Temp > 100.5, (Reported) Hydralazine Hcl* (Hydralazine Hcl*), 25 MG GT Q4H PRN Discontinued Medications Multivitamin Liquid* (Multi-Delyn*), 5 ML GT DAILY, (Reported) Discontinued Reason: Prescription changed Zinc Sulfate (Zinc Sulfate*), 220 MG GT DAILY, (Reported) Discontinued Reason: Therapy completed Patient History Limited by: medical condition History Provided By: Medical Record, PMD Healthcare decision maker Resuscitation status Advanced Directive on File Past Medical/Surgical History Past Medical/Surgical History: (1) Catheter-associated urinary tract infection (2) At high risk for aspiration (3) Decubitus skin ulcer (4) Vagina bleeding (5) Elevated lipase (6) Wound of right foot (7) DVT (deep vein thrombosis) in (8) Sepsis (9) Osteomyelitis of ankle or foot, left, acute (10) Healthcare-associated pneumonia (11) Right hemiparesis (12) Aspiration pneumonia (13) Diabetes (14) Dementia (15) Seizure disorder (16) Functional quadriplegia (17) G tube feedings (18) Sacral decubitus ulcer, stage III (19) UTI (urinary tract infection) (20) GI bleed (21) Epileptic seizure, generalized (22) Anemia in CKD (chronic kidney disease) (23) Bacteremia (24) Gastroparesis due to DM (25) Acute on chronic renal failure Review of Systems ROS Narrative Cannot obtain given patient's current mental status Physical Exam General Appearance: no apparent distress Lines, tubes and drains: other HEENT: atraumatic, mucous membranes moist, other - Tongue sticks out unable to reduce Neck: normal inspection Respiratory/Chest: chest wall non-tender, no respiratory distress, no accessory muscle use, decreased breath sounds Cardiovascular/Chest: normal rate Abdomen: soft, no organomegaly, no mass, other Extremities: slow capillary refill, trace edema, other - Contractures Skin Exam: warm/dry Neurologic: unresponsiveness, other Last 24 Hour Vital Signs Date Time Temp Pulse Resp B/P (MAP) Pulse Ox O2 Delivery O2 Flow Rate FiO2 04/14/19 20:11 81 100/56 04/14/19 20:08 Room Air 04/14/19 19:54 98.5 81 18 100/56 (71) 99 04/14/19 16:00 97.8 81 22 100/75 (83) 95 04/14/19 15:17 98.2 04/14/19 12:07 98.2 79 20 107/81 (90) 100 04/14/19 09:00 Room Air 04/14/19 08:55 68 98/62 04/14/19 08:54 68 98/62 04/14/19 08:00 97.6 68 20 98/62 (74) 99 04/14/19 05:01 92/44 04/14/19 04:00 98.2 70 18 92/44 (60) 100 04/14/19 00:00 98.6 70 20 102/61 (75) 100 04/13/19 21:24 78 122/83 Intake and Output 04/13/19 04/14/19 19:00 07:00 Output Total 350 ml 150 ml Balance -350 ml -150 ml Output Urine Total 350 ml 150 ml # Bowel Movements 1 3 Laboratory Tests Test 04/14/19 06:10 White Blood Count 9.1 K/UL (4.8-10.8) Red Blood Count 2.71 M/UL (4.20-5.40) L Hemoglobin 8.8 G/DL (12.0-16.0) L Hematocrit 27.3 % (37.0-47.0) L Mean Corpuscular Volume 101 FL (80-99) H Mean Corpuscular Hemoglobin 32.3 PG (27.0-31.0) H Mean Corpuscular Hemoglobin Concent 32.1 G/DL (32.0-36.0) Red Cell Distribution Width 12.9 % (11.6-14.8) Platelet Count 82 K/UL (150-450) L Mean Platelet Volume 9.8 FL (6.5-10.1) Neutrophils (%) (Auto) % (45.0-75.0) Lymphocytes (%) (Auto) % (20.0-45.0) Monocytes (%) (Auto) % (1.0-10.0) Eosinophils (%) (Auto) % (0.0-3.0) Basophils (%) (Auto) % (0.0-2.0) Differential Total Cells Counted 100 Neutrophils % (Manual) 58 % (45-75) Lymphocytes % (Manual) 38 % (20-45) Monocytes % (Manual) 2 % (1-10) Eosinophils % (Manual) 1 % (0-3) Basophils % (Manual) 0 % (0-2) Band Neutrophils 1 % (0-8) Platelet Estimate Decreased L Platelet Morphology Normal Macrocytosis 1+ Sodium Level 148 MMOL/L (136-145) H Potassium Level 4.0 MMOL/L (3.5-5.1) Chloride Level 113 MMOL/L (98-107) H Carbon Dioxide Level 22 MMOL/L (21-32) Anion Gap 13 mmol/L (5-15) Blood Urea Nitrogen 102 mg/dL (7-18) H Creatinine 2.9 MG/DL (0.55-1.30) H Estimat Glomerular Filtration Rate mL/min (>60) Glucose Level 158 MG/DL (74-106) #H Calcium Level 8.2 MG/DL (8.5-10.1) L Phosphorus Level 6.2 MG/DL (2.5-4.9) H Magnesium Level 2.9 MG/DL (1.8-2.4) H Total Bilirubin 0.3 MG/DL (0.2-1.0) Aspartate Amino Transf (AST/SGOT) 17 U/L (15-37) Alanine Aminotransferase (ALT/SGPT) 11 U/L (12-78) L Alkaline Phosphatase 90 U/L (46-116) Total Protein 8.4 G/DL (6.4-8.2) H Albumin 3.1 G/DL (3.4-5.0) L Globulin 5.3 g/dL Albumin/Globulin Ratio 0.6 (1.0-2.7) L Lipase 883 U/L (73-393) H Height (Feet): 4 Height (Inches): 11.00 Weight (Pounds): 140 Medications Current Medications Medications (Trade) Dose Ordered Sig/Nancy Route PRN Reason Start Time Stop Time Status Last Admin Dose Admin Acetaminophen (Tylenol) 650 mg Q4H PRN GT Mild Pain/Temp > 100.5 04/13/19 12:30 05/13/19 04:59 Apixaban (Eliquis) 2.5 mg BID GT 04/13/19 09:00 05/13/19 08:59 Ceftriaxone Sodium 1 gm/ Dextrose 55 ml @ 110 mls/hr Q24H IVPB 04/14/19 02:00 04/21/19 01:59 04/14/19 02:12 Dextrose 1,000 ml @ 100 mls/hr Q10H IV 04/13/19 10:52 05/13/19 10:51 04/14/19 17:52 Dextrose (Dextrose 50%) 25 ml Q30M PRN IV Hypoglycemia 04/13/19 05:15 05/13/19 05:14 Dextrose (Dextrose 50%) 50 ml Q30M PRN IV Hypoglycemia 04/13/19 05:15 05/13/19 05:14 Erythromycin (Erickson-Ped) 50 mg Q6H GT 04/13/19 09:00 04/20/19 08:59 04/14/19 14:45 Hydralazine HCl (Apresoline) 25 mg Q4H PRN GT bp over 160 syst 04/13/19 05:00 05/13/19 04:59 Insulin Aspart (NovoLOG) Q6HR SUBQ 04/13/19 06:00 05/13/19 05:59 04/14/19 18:06 Lansoprazole (Prevacid) 30 mg BID GT 04/13/19 09:00 05/13/19 08:59 04/14/19 17:51 Levetiracetam (Keppra) 1,250 mg Q12HR GT 04/13/19 09:00 05/13/19 08:59 04/14/19 09:02 Lorazepam (Ativan) 1 mg DAILY PRN GT For Anxiety 04/13/19 05:00 04/20/19 04:59 Metoprolol Tartrate (Lopressor) 12.5 mg Q12HR GT 04/14/19 21:00 05/13/19 12:29 Nitroglycerin (Ntg) 1 patch Q24H TDERMAL 04/13/19 06:00 05/13/19 05:59 04/13/19 06:14 Tramadol HCl (Ultram) 25 mg Q6HR ORAL 04/14/19 15:00 04/21/19 14:59 Assessment/Plan Problem List: (1) Pancreatitis Assessment & Plan: This is a 83-year-old female with multiple medical comorbidities who is care dependent skilled nursing patient with leukocytosis, abnormal labs, chemical pancreatitis. Unfortunately given patient's baseline medical condition mental status unable to obtain information or right reliable examination to evaluate for pain or discomfort. Okay for diet Trend labs IV fluid hydration Ultrasound ordered We will monitor and follow with recommendations Thank you for let me to participate in patient's care ICD Codes: K85.90 - Acute pancreatitis without necrosis or infection, unspecified SNOMED: 08891769 (2) Decubitus skin ulcer Assessment & Plan: Pt presented with MASD mons pubis, Bilat groin, medial aspects of both upper thighs. Erythema with denuded skin noted. Sacral hyperpigmentation from previous wound noted to sacrum. 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 Unstageable pressure injury R Hallux. Soft necrotic cap noted with surrounding semi-detached borders.(L)1.4cm x (W)1cm. Periwound skin is dry and black. Hyperpigmentation with Scarring noted to R heel. Tx.Plan: Apply Betadine to R hallux. Cover with Optifoam drsg Daily and prn. Apply Remedy Antifungal Cream to abd folds ,Mons Pubis and medial aspects of both upper thighs Twice Daily. Apply Triad Paste to sacrum. Cover with Optifoam drsg. Change every 3 days and prn. Reposition at least every 2hours or as tolerated. Off-load R heel with pillow. Nutritional optimization DAILY ESTIMATED NEEDS: Needs based on DM, TF APPLICATIONS PROCESSOR, Wound (Adj wt 49kg) 25-31 kcals/kg 2032-3329 total kcals 1.25-1.5 g protein/kg 61-73 g total protein 25-30 mL/kg 4855-6729 total fluid mLs NUTRITION DIAGNOSIS: 1) Increased kcal/prot needs R/T wound healing as evidenced by sacral wound photo, pending eval. 2) Swallowing difficulty R/T dysphagia as evidenced by pt is PEG dep, NPO at this time. 3) Altered nutrition related lab values R/T dehydration and clinical conditions as evidenced by elev Na (148), elev BUN/creat (102/2.9), elev phos (6.2), elev lipase (883 trend up). CURRENT TF:NPO ENTERAL NUTRITION RECOMMENDATIONS: Glucerna 1.2 @ 50ml/hr x 24 hrs to provide 1200ml, 1440kcal, 72g prot, 966ml free water * As medically appropriate, initiate Glucerna 1.2 @ 30ml/hr x 6hrs * Advance 10ml q 4-6 hrs as tolerated to goal. * HOB over 30 degrees/ H2O flush per MD ADDITIONAL RECOMMENDATIONS: 1) Per SNF: HT=60", VK=962jid (as of 04/13/19) rec weekly calibrated bedscale wts 2) Monitor phos closely, need for TF change to renal formula 3) F/up with wound eval -> add Vit C 250mg QD and Damian 1pkt BID for wound healing . ICD Codes: L89.90 - Pressure ulcer of unspecified site, unspecified stage SNOMED: 546946452 Taco Carter Apr 14, 2019 20:57
[2019-04-15] VITALS: BP 137/66
[2019-04-15] MEDS: NovoLOG Insulin Flexpen SUBQ SCH ×5 (00:12→23:33)
[2019-04-15] MEDS: cefTRIAXone 1 GM in D5W 55 ML IVPB SCH (03:06)
[2019-04-15] MEDS: Erythromycin Ethylsuccinate 200mg/5ml Susp GT SCH ×4 (03:06→20:52)
[2019-04-15 04:00] VITALS: BP 129/67
[2019-04-15] MEDS: Nitroglycerin Patch 0.4mg TDERMAL SCH (05:11)
[2019-04-15] MEDS: traMADol 50mg tab ORAL SCH ×4 (05:23→23:32)
[2019-04-15 05:50] LABS: HEMATOCRIT 22.3 % (37.0-47.0); HEMOGLOBIN 7.9 G/DL (12.0-16.0); MEAN CORPUSCULAR VOLUME 93 FL (80-99); PLATELET COUNT 81 K/UL (150-450); RED CELL DISTRIBUTION WIDTH 11.1 % (11.6-14.8); WHITE BLOOD COUNT 6.6 K/UL (4.8-10.8)
[2019-04-15 06:04] LABS: % IRON SATURATION 19 % (15-50); IRON 40 ug/dL (50-175); TOTAL IRON BINDING CAPACITY 213 ug/dL (250-450)
[2019-04-15 06:30] LABS: ALANINE AMINOTRANSFERASE 12 U/L (12-78); ALBUMIN 3.5 G/DL (3.4-5.0); ALBUMIN/GLOBULIN RATIO 0.7 (1.0-2.7); ALKALINE PHOSPHATASE 93 U/L (46-116); ANION GAP 11 mmol/L (5-15); ASPARTATE AMINO TRANSFERASE 17 U/L (15-37); BILIRUBIN,TOTAL 0.3 MG/DL (0.2-1.0); BLOOD UREA NITROGEN 86 mg/dL (7-18); CALCIUM 8.1 MG/DL (8.5-10.1); CARBON DIOXIDE 23 MMOL/L (21-32); CHLORIDE 106 MMOL/L (98-107); CREATININE 2.7 MG/DL (0.55-1.30); FERRITIN 1032 NG/ML (8-388); PHOSPHORUS 5.7 MG/DL (2.5-4.9); POTASSIUM 3.7 MMOL/L (3.5-5.1); SODIUM 140 MMOL/L (136-145)
[2019-04-15 06:58] LABS: AMYLASE 105 U/L (25-115)
--- NOTE | 2019-04-15 07:35 | NUR ---
NURSE NOTES:HANDOFF RECEIVED FROM LUIS KRAUSE. PATIENT SLEEPING IN BED, NO ACUTE SIGNS OF DISTRESS NOTED. PATIENT HAS IV FLUIDS RUNNING AT PRESCRIBED RATE. SIDE RAILS ARE PADDED. BED IN THE LOW AND LOCKED POSITION WITH CALL LIGHT WITHIN REACH, WILL CONTINUE TO MONITOR.
--- NOTE | 2019-04-15 07:35 | NUR ---
HAND-OFF: Report given to LUIS Wallace.
[2019-04-15 08:00] VITALS: BP 123/72
[2019-04-15] MEDS: levETIRAcetam 500mg/5ml Liquid GT SCH ×2 (08:20→20:49)
[2019-04-15] MEDS: Metoprolol Tartrate 12.5mg TAB GT SCH ×2 (08:21→20:49)
[2019-04-15] MEDS: Eliquis 2.5mg tablet GT SCH ×2 (08:21→17:05)
[2019-04-15] MEDS: Ascorbic Acid 500mg tab ORAL SCH (08:21)
[2019-04-15] MEDS ORDERED: Allopurinol 100mg Tab GT ONE (08:45)
[2019-04-15] MEDS ORDERED: Tubing IV Secondary IV ONE (09:48)
--- NOTE | 2019-04-15 11:19 | Diagnostic Imaging Report ---
Indication: Elevated lipase, abnormal renal function tests Technique: Chapa-scale and duplex images of the upper abdomen were obtained Comparison: 12/11/2015. Reference also made to abdomen pelvis CT dated 01/22/2019 Findings: Gallbladder demonstrates small gallstones. No wall thickening nor pericholecystic fluid. Sonographic Collins's sign could not be assessed as patient is noncommunicative. Common bile duct measures 8 mm in diameter. No intrahepatic biliary ductal dilatation. Liver demonstrates normal echogenicity. 2 cysts are seen in the right hepatic lobe, measuring up to 13 mm diameter, also evident previously. Hyperechoic lesion reported on previous study is not visualized, may have been artifactual. Portal vein and hepatic veins are patent. Pancreas is incompletely visualized due to overlying bowel gas, visualized portions are unremarkable. Spleen is unremarkable. Left kidney measures 7.7 cm in length. Right kidney measures 9.5 cm length. The left kidney is poorly visualized. There is no hydronephrosis. No focal abnormality . Abdominal aorta is partially obscured by bowel gas, visualized portions are non-aneurysmal . Impression: Limited exam, as described, due to patient being contracted and difficult to scan Cholelithiasis, not demonstrated previously Mildly ectatic extrahepatic bile ducts. Downstream obstruction not excludable. Correlate with liver function tests, consider MRCP if clinically indicated Hepatic cysts, also previously described
--- NOTE | 2019-04-15 11:20 | NUR ---
HAND-OFF: Report given to LUIS OSBORN.
--- NOTE | 2019-04-15 11:26 | NUR ---
NURSE NOTES: Received patient from Rodrigo. Patient is in bed,breathing is even and unlabored. No s/s of pain or discomfort per FLACC pain scale. HOB elevated. GT and martinez intact. IV is intact running IVF. Will continue plan of care.
--- NOTE | 2019-04-15 11:48 | General Progress Note ---
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; K31.84 - Gastroparesis SNOMED: 351350759 (3) UTI (urinary tract infection) ICD Codes: N39.0 - UTI (urinary tract infection) SNOMED: 50479766 (4) Seizure disorder ICD Codes: G40.909 - Epilepsy, unspecified, not intractable, without status epilepticus SNOMED: 799750033 (5) Dementia ICD Codes: F03.90 - Dementia SNOMED: 96206629 (6) DVT (deep vein thrombosis) in ICD Codes: O22.30 - Deep phlebothrombosis in , unspecified trimester; I82.409 - Acute embolism and thrombosis of unspecified deep veins of unspecified lower extremity SNOMED: 26059772 (7) Elevated lipase ICD Codes: R74.8 - Abnormal levels of other serum enzymes SNOMED: 210511623 Status: unchanged Assessment/Plan: labs checked add allopurinol and EPO SQ NPO- Lipase still elevated abd EWA results noted monitor I&O and Renal parameters Hydrate- Keep BP and BS in check full code per family avoid Nephrotoxics monitor renal parameters Id GI surg eval Subjective ROS Limited/Unobtainable: No Constitutional: Reports: malaise, other - non verbal Allergies: Coded Allergies: METOCLOPRAMIDE (Verified Allergy, Unknown, 03/10/18) extrapyramidal Sx Objective Last 24 Hour Vital Signs Date Time Temp Pulse Resp B/P (MAP) Pulse Ox O2 Delivery O2 Flow Rate FiO2 04/15/19 08:35 Room Air 04/15/19 08:21 75 123/72 04/15/19 08:00 96.9 75 19 123/72 (89) 96 04/15/19 06:48 Room Air 04/15/19 05:53 98.2 04/15/19 05:11 129/67 04/15/19 04:00 98.2 86 18 129/67 (87) 99 04/15/19 00:00 98.6 93 18 137/66 (89) 100 04/14/19 20:11 81 100/56 04/14/19 20:08 Room Air 04/14/19 19:54 98.5 81 18 100/56 (71) 99 04/14/19 16:00 97.8 81 22 100/75 (83) 95 04/14/19 15:17 98.2 04/14/19 12:07 98.2 79 20 107/81 (90) 100 Intake and Output 04/14/19 04/15/19 18:59 06:59 Intake Total 500 ml 1100 ml Output Total 600 ml 750 ml Balance -100 ml 350 ml Intake IV Total 500 ml 1100 ml Output Urine Total 600 ml 750 ml # Bowel Movements 1 2 Laboratory Tests 04/15/19 04:30: White Blood Count 6.6, Red Blood Count 2.40L, Hemoglobin 7.9L, Hematocrit 22.3L , Mean Corpuscular Volume 93, Mean Corpuscular Hemoglobin 33.1H, Mean Corpuscular Hemoglobin Concent 35.6, Red Cell Distribution Width 11.1L, Platelet Count 81L, Mean Platelet Volume 10.3H, Neutrophils (%) (Auto) , Lymphocytes (%) (Auto) , Monocytes (%) (Auto) , Eosinophils (%) (Auto) , Basophils (%) (Auto) , Differential Total Cells Counted 100, Neutrophils % ( Manual) 64, Lymphocytes % (Manual) 27, Monocytes % (Manual) 5, Eosinophils % ( Manual) 3, Basophils % (Manual) 1, Band Neutrophils 0, Platelet Estimate DecreasedL, Platelet Morphology Normal, Hypochromasia 3+, Anisocytosis 1+, Sodium Level 140, Potassium Level 3.7, Chloride Level 106, Carbon Dioxide Level 23, Anion Gap 11, Blood Urea Nitrogen 86H, Creatinine 2.7H, Estimat Glomerular Filtration Rate , Glucose Level 161H, Uric Acid 8.5H, Calcium Level 8.1L, Phosphorus Level 5.7H, Magnesium Level 2.8H, Iron Level 40L, Total Iron Binding Capacity 213L, Percent Iron Saturation 19, Unsaturated Iron Binding 173, Ferritin 1032H, Total Bilirubin 0.3, Aspartate Amino Transf (AST/SGOT) 17, Alanine Aminotransferase (ALT/SGPT) 12, Alkaline Phosphatase 93, Total Protein 8.3H, Albumin 3.5, Globulin 4.8, Albumin/Globulin Ratio 0.7L, Amylase Level 105 , Lipase 493H, Cortisol AM Sample [Pending] Height (Feet): 4 Height (Inches): 11.00 Weight (Pounds): 139 General Appearance: no apparent distress, lethargic Respiratory/Chest: decreased breath sounds Abdomen: absent bowel sounds Estevan Orozco MD Apr 15, 2019 11:48
[2019-04-15 12:00] VITALS: BP 116/75
--- NOTE | 2019-04-15 12:08 | Infectious Diseases Prog Note ---
Assessment/Plan Assessment/Plan Abx: Ceftriaxone 04/13- Assessment: Sepsis, SP Probable UTI -u/a wbc 40-60, nit neg, leuk +2; ucx 30-40k P mirabilis (I Levo; R amp, macrobid, bactrim, cipro; otherwise S) -BCx NTD -CXR: no acute disease Afebrile Leukocytosis, SP Pancreatitis Acute on chronic encephalopathy OREN on CKD -renal US: Mildly increased renal echogenicity bilaterally, may indicate medical renal disease/ Negative for hydronephrosis. Incidental finding small left renal cysts. 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 Will continue to follow along with you. Discussed with RN Subjective Allergies: Coded Allergies: METOCLOPRAMIDE (Verified Allergy, Unknown, 03/10/18) extrapyramidal Sx Subjective afebrile no leukocytosis Objective Vital Signs Last 24 Hour Vital Signs Date Time Temp Pulse Resp B/P (MAP) Pulse Ox O2 Delivery O2 Flow Rate FiO2 04/15/19 08:35 Room Air 04/15/19 08:21 75 123/72 04/15/19 08:00 96.9 75 19 123/72 (89) 96 04/15/19 06:48 Room Air 04/15/19 05:53 98.2 04/15/19 05:11 129/67 04/15/19 04:00 98.2 86 18 129/67 (87) 99 04/15/19 00:00 98.6 93 18 137/66 (89) 100 04/14/19 20:11 81 100/56 04/14/19 20:08 Room Air 04/14/19 19:54 98.5 81 18 100/56 (71) 99 04/14/19 16:00 97.8 81 22 100/75 (83) 95 04/14/19 15:17 98.2 04/14/19 12:07 98.2 79 20 107/81 (90) 100 Height (Feet): 4 Height (Inches): 11.00 Weight (Pounds): 139 Objective General Appearance: mild distress Neck: limited range of motion Cardiovascular: normal rate Respiratory/Chest: decreased breath sounds Abdomen: distended Microbiology Date/Time Source Procedure Growth Status 04/13/19 01:25 Blood Blood Culture - Preliminary NO GROWTH AFTER 48 HOURS Resulted 04/13/19 01:10 Blood Blood Culture - Preliminary NO GROWTH AFTER 48 HOURS Resulted 04/13/19 01:00 Urine,Clean Catch Urine Culture - Final Proteus Mirabilis Complete Laboratory Tests Test 04/15/19 04:30 White Blood Count 6.6 K/UL (4.8-10.8) Red Blood Count 2.40 M/UL (4.20-5.40) L Hemoglobin 7.9 G/DL (12.0-16.0) L Hematocrit 22.3 % (37.0-47.0) L Mean Corpuscular Volume 93 FL (80-99) Mean Corpuscular Hemoglobin 33.1 PG (27.0-31.0) H Mean Corpuscular Hemoglobin Concent 35.6 G/DL (32.0-36.0) Red Cell Distribution Width 11.1 % (11.6-14.8) L Platelet Count 81 K/UL (150-450) L Mean Platelet Volume 10.3 FL (6.5-10.1) H Neutrophils (%) (Auto) % (45.0-75.0) Lymphocytes (%) (Auto) % (20.0-45.0) Monocytes (%) (Auto) % (1.0-10.0) Eosinophils (%) (Auto) % (0.0-3.0) Basophils (%) (Auto) % (0.0-2.0) Differential Total Cells Counted 100 Neutrophils % (Manual) 64 % (45-75) Lymphocytes % (Manual) 27 % (20-45) Monocytes % (Manual) 5 % (1-10) Eosinophils % (Manual) 3 % (0-3) Basophils % (Manual) 1 % (0-2) Band Neutrophils 0 % (0-8) Platelet Estimate Decreased L Platelet Morphology Normal Hypochromasia 3+ Anisocytosis 1+ Sodium Level 140 MMOL/L (136-145) Potassium Level 3.7 MMOL/L (3.5-5.1) Chloride Level 106 MMOL/L (98-107) Carbon Dioxide Level 23 MMOL/L (21-32) Anion Gap 11 mmol/L (5-15) Blood Urea Nitrogen 86 mg/dL (7-18) H Creatinine 2.7 MG/DL (0.55-1.30) H Estimat Glomerular Filtration Rate mL/min (>60) Glucose Level 161 MG/DL (74-106) H Uric Acid 8.5 MG/DL (2.6-7.2) H Calcium Level 8.1 MG/DL (8.5-10.1) L Phosphorus Level 5.7 MG/DL (2.5-4.9) H Magnesium Level 2.8 MG/DL (1.8-2.4) H Iron Level 40 ug/dL (50-175) L Total Iron Binding Capacity 213 ug/dL (250-450) L Percent Iron Saturation 19 % (15-50) Unsaturated Iron Binding 173 ug/dL (112-346) Ferritin 1032 NG/ML (8-388) H Total Bilirubin 0.3 MG/DL (0.2-1.0) Aspartate Amino Transf (AST/SGOT) 17 U/L (15-37) Alanine Aminotransferase (ALT/SGPT) 12 U/L (12-78) Alkaline Phosphatase 93 U/L (46-116) Total Protein 8.3 G/DL (6.4-8.2) H Albumin 3.5 G/DL (3.4-5.0) Globulin 4.8 g/dL Albumin/Globulin Ratio 0.7 (1.0-2.7) L Amylase Level 105 U/L (25-115) Lipase 493 U/L (73-393) H Cortisol AM Sample Pending Current Medications Medications (Trade) Dose Ordered Sig/Nancy Route PRN Reason Start Time Stop Time Status Last Admin Dose Admin Acetaminophen (Tylenol) 650 mg Q4H PRN GT Mild Pain/Temp > 100.5 04/13/19 12:30 05/13/19 04:59 Allopurinol (Zyloprim) 200 mg DAILY GT 04/16/19 09:00 05/16/19 08:59 Apixaban (Eliquis) 2.5 mg BID GT 04/13/19 09:00 05/13/19 08:59 Ascorbic Acid (Vitamin C) 250 mg DAILY ORAL 04/15/19 09:00 05/15/19 08:59 04/15/19 08:21 Ceftriaxone Sodium 1 gm/ Dextrose 55 ml @ 110 mls/hr Q24H IVPB 04/14/19 02:00 04/21/19 01:59 04/15/19 03:06 Dextrose 1,000 ml @ 100 mls/hr Q10H IV 04/13/19 10:52 05/13/19 10:51 04/15/19 03:06 Dextrose (Dextrose 50%) 25 ml Q30M PRN IV Hypoglycemia 04/13/19 05:15 05/13/19 05:14 Dextrose (Dextrose 50%) 50 ml Q30M PRN IV Hypoglycemia 04/13/19 05:15 05/13/19 05:14 Epoetin Wallace (Epoetin Wallace-EPBX(NON ESRD)) 10,000 unit SUBQ 04/15/19 21:00 05/15/19 20:59 Erythromycin (Erickson-Ped) 50 mg Q6H GT 04/13/19 09:00 04/20/19 08:59 04/15/19 08:20 Hydralazine HCl (Apresoline) 25 mg Q4H PRN GT bp over 160 syst 04/13/19 05:00 05/13/19 04:59 Insulin Aspart (NovoLOG) Q6HR SUBQ 04/13/19 06:00 05/13/19 05:59 04/15/19 05:37 Lansoprazole (Prevacid) 30 mg BID GT 04/13/19 09:00 05/13/19 08:59 04/15/19 08:20 Levetiracetam (Keppra) 1,250 mg Q12HR GT 04/13/19 09:00 05/13/19 08:59 04/15/19 08:20 Lorazepam (Ativan) 1 mg DAILY PRN GT For Anxiety 04/13/19 05:00 04/20/19 04:59 Metoprolol Tartrate (Lopressor) 12.5 mg Q12HR GT 04/14/19 21:00 05/13/19 12:29 04/15/19 08:21 Nitroglycerin (Ntg) 1 patch Q24H TDERMAL 04/13/19 06:00 05/13/19 05:59 04/13/19 06:14 Tramadol HCl (Ultram) 25 mg Q6HR ORAL 04/14/19 15:00 04/21/19 14:59 04/15/19 05:23 Nkechi Stevenson M.D. Apr 15, 2019 12:08
--- NOTE | 2019-04-15 13:00 | NUR ---
NURSE NOTES: patient is off the unit for MRCP in stable condition.
--- NOTE | 2019-04-15 13:10 | CDS Physician Query ---
Clarification is required for compliance, coding accuracy, and to reflect severity of illness for this patient Dear Dr. Estevan Orozco Date: 04/15/2019 General Car Yard Supervisor/ CDS Name: Amber Stevenson, infectious disease specialist, documents the diagnosis listed below. In order to accurately code this case and to reflect the appropriate severity of illness, please document your input on the following: Sepsis, SP Probable UTI -u/a wbc 40-60, nit neg, leuk +2; ucx 30-40k P mirabilis (I Levo; R amp, macrobid, bactrim, cipro; otherwise S) -BCx NTD -CXR: no acute disease For the diagnosis of Sepsis,: [] Agree [] Disagree [] Ruled Out Present on Admission: [] Yes [] No [] Clinically Undetermined Physician signature Date Please also document in your Progress Notes and/or Discharge Summary and indicate if the condition was present on admission. LUIS DANIELD
--- NOTE | 2019-04-15 13:11 | NUR ---
NURSE NOTES: Received order from Dr. Arana to do MRCP.
--- NOTE | 2019-04-15 14:20 | NUR ---
NURSE NOTES: patient came back from ERCP in stable condition.
--- NOTE | 2019-04-15 15:30 | Consultation ---
DATE OF CONSULTATION: 04/15/2019 CONSULTING PHYSICIAN: Jamaal Arana M.D. CHIEF COMPLAINT: Anemia. HISTORY OF PRESENT ILLNESS: Most of history per chart. The patient is a senior living patient, G-tube dependent, was brought to the emergency room with altered mental status, was found to be profoundly anemic. GI consult requested for evaluation. PAST SURGICAL HISTORY: 1. Diabetes. 2. DVT. 3. UTI. 4. Osteomyelitis. 5. Peripheral vascular disease. 6. Yjsgs-osr-iiwm amputations. 7. Pneumonia. 8. Seizure disorder. 9. Dementia. 10. Dysphagia with a G-tube. 11. Functional quadriplegia. 12. Renal insufficiency. ALLERGIES: To metoclopramide. MEDICATIONS: Please see medication reconciliation list. SOCIAL HISTORY: Currently lives in a senior living. No history of tobacco, alcohol, or drug abuse. FAMILY HISTORY: Noncontributory. PAST SURGICAL HISTORY: As above. REVIEW OF SYSTEMS: Limited. PHYSICAL EXAMINATION: VITAL SIGNS: Temperature is 96.9, pulse is 74, respirations 19, blood pressure 122/72. HEENT: Normocephalic, atraumatic. Mild pale conjunctivae. NECK: Supple. No evidence of obvious lymphadenopathy. CARDIOVASCULAR: Regular rate and rhythm. Plus S1 and S2. No obvious murmur. LUNGS: Decreased breath sounds bilaterally based on the supine exam. ABDOMEN: Soft, nontender. G-tube in place. No rebound. No guarding. No peritoneal sign. EXTREMITIES: No cyanosis, no clubbing, no edema. LABORATORY DATA: White count is 6.6, hemoglobin 7.9, hematocrit 22, platelet count is 81. Chem-7 sodium is 140, potassium 3.7, BUN is 86, creatinine 2.7, glucose is 161. Iron saturation is 19%. ASSESSMENT: This is an 83-year-old female with numerous medical problems. From GI standpoint has anemia, elevated lipase, dysphagia with a G-tube, diabetes. PLAN: Review of old chart shows that the patient has always been anemic. Hemoglobin baseline around 9 that today dropped to about 7.8 without any obvious GI bleeding, possibly from hydration. Stool OB in prior admissions has been negative. Our plan will be to given the patient's poor protoplasm, not to proceed with endoscopy or colonoscopy at this time unless there is evidence of GI bleeding. We will send the stool for OB. Monitor hemoglobin and hematocrit. Transfuse as needed to keep hemoglobin above 7. If the stool OB comes back positive, then we will consider GI procedures. Meanwhile, we are going to resume tube feeding. Follow labs. Repeat amylase and lipase for tomorrow. I want to thank, Dr. Oorzco, for this kind referral. Jamaal Arana M.D. DR: BROOKE JOB#: [id number] CC: Estevan Orozco M.D.
[2019-04-15 16:00] VITALS: BP 118/74
--- NOTE | 2019-04-15 16:21 | Diagnostic Imaging Report ---
Indication: Abnormal lipase, cholelithiasis on recent sonogram Technique: Coronal and axial single shot fast spin-echo breath-hold, axial T2 FRFSE, 2-D thick slab MRCP, AXIAL 2-D FIESTA fat saturated, axial 3-D dual echo breath-hold, water weighted axial LAVA FLEX, revealed 3-D MRCP images were obtained of the abdomen. MIP reconstructions were generated of the bile ducts Comparison: Reference made to sonogram dated 04/15/2019, abdomen pelvis CT dated 01/22/2019 Findings: There is considerable image degradation due to motion artifact. Gallstones demonstrated on prior sonogram are barely visible on the current images, best appreciated on the axial T2-weighted sequences and 8 equivocally visible on the coronal MRCP sequences. No definite intraluminal bile duct filling defect demonstrated. The common hepatic duct measures up to 8 mm in diameter, but no definite downstream obstructive lesion is demonstrated. Note, however, that visualization of the common bile duct and common hepatic duct are limited due to the motion. The pancreatic duct is unremarkable. There is no gallbladder wall thickening nor pericholecystic fluid. The liver demonstrates multiple cysts which correspond to the low-attenuation lesions demonstrated on prior CT. The pancreas is grossly unremarkable. The spleen, adrenals, kidneys are unremarkable. There is a gastrostomy tube in good position. No pelvic mass. The uterus is unremarkable. Impression: Limited exam, as described Cholelithiasis, previous CT demonstrated, barely visible currently Minimally ectatic extrahepatic bile ducts, probably age-related. No definite downstream obstructive lesion or choledocholithiasis, although evaluation is very limited due to the presence of significant motion Hepatic cysts, corresponding to findings reported on prior CT scan an sonogram. Gastrostomy
--- NOTE | 2019-04-15 17:07 | Surgery Progress Note ---
Surgery Progress Note Subjective Additional Comments lip trending down no acute events labs noted MRI noted exam stable Objective Last 24 Hour Vital Signs Date Time Temp Pulse Resp B/P (MAP) Pulse Ox O2 Delivery O2 Flow Rate FiO2 04/15/19 12:00 98.5 70 19 116/75 (89) 96 04/15/19 08:35 Room Air 04/15/19 08:21 75 123/72 04/15/19 08:00 96.9 75 19 123/72 (89) 96 04/15/19 06:48 Room Air 04/15/19 05:53 98.2 04/15/19 05:11 129/67 04/15/19 04:00 98.2 86 18 129/67 (87) 99 04/15/19 00:00 98.6 93 18 137/66 (89) 100 04/14/19 20:11 81 100/56 04/14/19 20:08 Room Air 04/14/19 19:54 98.5 81 18 100/56 (71) 99 I&O Intake and Output 04/14/19 04/15/19 19:00 07:00 Intake Total 600 ml 1100 ml Output Total 600 ml 750 ml Balance 0 ml 350 ml Intake IV Total 600 ml 1100 ml Output Urine Total 600 ml 750 ml # Bowel Movements 1 2 Dressing: other Wound: other Drains: other Cardiovascular: RSR Respiratory: decreased breath sounds Abdomen: soft, present bowel sounds Extremities: edema, no cyanosis, other Laboratory Tests Test 04/15/19 04:30 White Blood Count 6.6 K/UL (4.8-10.8) Red Blood Count 2.40 M/UL (4.20-5.40) L Hemoglobin 7.9 G/DL (12.0-16.0) L Hematocrit 22.3 % (37.0-47.0) L Mean Corpuscular Volume 93 FL (80-99) Mean Corpuscular Hemoglobin 33.1 PG (27.0-31.0) H Mean Corpuscular Hemoglobin Concent 35.6 G/DL (32.0-36.0) Red Cell Distribution Width 11.1 % (11.6-14.8) L Platelet Count 81 K/UL (150-450) L Mean Platelet Volume 10.3 FL (6.5-10.1) H Neutrophils (%) (Auto) % (45.0-75.0) Lymphocytes (%) (Auto) % (20.0-45.0) Monocytes (%) (Auto) % (1.0-10.0) Eosinophils (%) (Auto) % (0.0-3.0) Basophils (%) (Auto) % (0.0-2.0) Differential Total Cells Counted 100 Neutrophils % (Manual) 64 % (45-75) Lymphocytes % (Manual) 27 % (20-45) Monocytes % (Manual) 5 % (1-10) Eosinophils % (Manual) 3 % (0-3) Basophils % (Manual) 1 % (0-2) Band Neutrophils 0 % (0-8) Platelet Estimate Decreased L Platelet Morphology Normal Hypochromasia 3+ Anisocytosis 1+ Sodium Level 140 MMOL/L (136-145) Potassium Level 3.7 MMOL/L (3.5-5.1) Chloride Level 106 MMOL/L (98-107) Carbon Dioxide Level 23 MMOL/L (21-32) Anion Gap 11 mmol/L (5-15) Blood Urea Nitrogen 86 mg/dL (7-18) H Creatinine 2.7 MG/DL (0.55-1.30) H Estimat Glomerular Filtration Rate mL/min (>60) Glucose Level 161 MG/DL (74-106) H Uric Acid 8.5 MG/DL (2.6-7.2) H Calcium Level 8.1 MG/DL (8.5-10.1) L Phosphorus Level 5.7 MG/DL (2.5-4.9) H Magnesium Level 2.8 MG/DL (1.8-2.4) H Iron Level 40 ug/dL (50-175) L Total Iron Binding Capacity 213 ug/dL (250-450) L Percent Iron Saturation 19 % (15-50) Unsaturated Iron Binding 173 ug/dL (112-346) Ferritin 1032 NG/ML (8-388) H Total Bilirubin 0.3 MG/DL (0.2-1.0) Aspartate Amino Transf (AST/SGOT) 17 U/L (15-37) Alanine Aminotransferase (ALT/SGPT) 12 U/L (12-78) Alkaline Phosphatase 93 U/L (46-116) Total Protein 8.3 G/DL (6.4-8.2) H Albumin 3.5 G/DL (3.4-5.0) Globulin 4.8 g/dL Albumin/Globulin Ratio 0.7 (1.0-2.7) L Amylase Level 105 U/L (25-115) Lipase 493 U/L (73-393) H Cortisol AM Sample Pending Plan Problems: (1) Pancreatitis Assessment & Plan: This is a 83-year-old female with multiple medical comorbidities who is care dependent fpc patient with leukocytosis, abnormal labs, chemical pancreatitis. Unfortunately given patient's baseline medical condition mental status unable to obtain information or right reliable examination to evaluate for pain or discomfort. Okay for diet Trend labs IV fluid hydration There is considerable image degradation due to motion artifact. Gallstones demonstrated on prior sonogram are barely visible on the current images, best appreciated on the axial T2-weighted sequences and 8 equivocally visible on the coronal MRCP sequences. No definite intraluminal bile duct filling defect demonstrated. The common hepatic duct measures up to 8 mm in diameter, but no definite downstream obstructive lesion is demonstrated. Note, however, that visualization of the common bile duct and common hepatic duct are limited due to the motion. The pancreatic duct is unremarkable. There is no gallbladder wall thickening nor pericholecystic fluid. The liver demonstrates multiple cysts which correspond to the low-attenuation lesions demonstrated on prior CT. The pancreas is grossly unremarkable. The spleen, adrenals, kidneys are unremarkable. There is a gastrostomy tube in good position. No pelvic mass. The uterus is unremarkable. Impression: Limited exam, as described Cholelithiasis, previous CT demonstrated, barely visible currently Minimally ectatic extrahepatic bile ducts, probably age-related. No definite downstream obstructive lesion or choledocholithiasis, although evaluation is very limited due to the presence of significant motion Hepatic cysts, corresponding to findings reported on prior CT scan an sonogram. Gastrostomy We will monitor and follow with recommendations Thank you for let me to participate in patient's care (2) Decubitus skin ulcer Assessment & Plan: Pt presented with MASD mons pubis, Bilat groin, medial aspects of both upper thighs. Erythema with denuded skin noted. Sacral hyperpigmentation from previous wound noted to sacrum. 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 Unstageable pressure injury R Hallux. Soft necrotic cap noted with surrounding semi-detached borders.(L)1.4cm x (W)1cm. Periwound skin is dry and black. Hyperpigmentation with Scarring noted to R heel. Tx.Plan: Apply Betadine to R hallux. Cover with Optifoam drsg Daily and prn. Apply Remedy Antifungal Cream to abd folds ,Mons Pubis and medial aspects of both upper thighs Twice Daily. Apply Triad Paste to sacrum. Cover with Optifoam drsg. Change every 3 days and prn. Reposition at least every 2hours or as tolerated. Off-load R heel with pillow. Nutritional optimization DAILY ESTIMATED NEEDS: Needs based on DM, TF [employer], Wound (Adj wt 49kg) 25-31 kcals/kg 3901-7094 total kcals 1.25-1.5 g protein/kg 61-73 g total protein 25-30 mL/kg 0130-3169 total fluid mLs NUTRITION DIAGNOSIS: 1) Increased kcal/prot needs R/T wound healing as evidenced by sacral wound photo, pending eval. 2) Swallowing difficulty R/T dysphagia as evidenced by pt is PEG dep, NPO at this time. 3) Altered nutrition related lab values R/T dehydration and clinical conditions as evidenced by elev Na (148), elev BUN/creat (102/2.9), elev phos (6.2), elev lipase (883 trend up). CURRENT TF:NPO ENTERAL NUTRITION RECOMMENDATIONS: Glucerna 1.2 @ 50ml/hr x 24 hrs to provide 1200ml, 1440kcal, 72g prot, 966ml free water * As medically appropriate, initiate Glucerna 1.2 @ 30ml/hr x 6hrs * Advance 10ml q 4-6 hrs as tolerated to goal. * HOB over 30 degrees/ H2O flush per MD ADDITIONAL RECOMMENDATIONS: 1) Per SNF: HT=60", MZ=261fhl (as of 04/13/19) rec weekly calibrated bedscale wts 2) Monitor phos closely, need for TF change to renal formula 3) F/up with wound eval -> add Vit C 250mg QD and Damian 1pkt BID for wound healing . Taco Carter Apr 15, 2019 17:07
--- NOTE | 2019-04-15 19:44 | NUR ---
HAND-OFF: Report given to Ramón.
--- NOTE | 2019-04-15 19:45 | NUR ---
NURSE NOTES: Patient received in bed, nonverbal, GT at 20cc/hr, no residual at this time. Will advance as tolerated to goal of 60cc. IV intact and patent, IVF infusing.
[2019-04-15 20:00] VITALS: BP 118/57
[2019-04-15] MEDS ORDERED: Epoetin Alfa-EPBX (NON ESRD)10,000 unit/ml vial SUBQ SCH (21:00)
[2019-04-16] VITALS (7 sets, daily range): BP systolic 87–140; BP diastolic 39–82
[2019-04-16] MEDS: Erythromycin Ethylsuccinate 200mg/5ml Susp GT SCH ×4 (02:50→20:58)
[2019-04-16] MEDS: Nitroglycerin Patch 0.4mg TDERMAL SCH (05:18)
[2019-04-16] MEDS: traMADol 50mg tab ORAL SCH (05:20)
[2019-04-16] MEDS: NovoLOG Insulin Flexpen SUBQ SCH ×3 (05:27→17:38)
--- NOTE | 2019-04-16 07:17 | NUR ---
HAND-OFF: Report given to Ros SMITH.
[2019-04-16 08:01] LABS: HEMOGLOBIN 8.5 G/DL (12.0-16.0); MEAN CORPUSCULAR VOLUME 96 FL (80-99); PLATELET COUNT 89 K/UL (150-450); RED BLOOD COUNT 2.62 M/UL (4.20-5.40); RED CELL DISTRIBUTION WIDTH 11.9 % (11.6-14.8)
[2019-04-16 08:21] LABS: AMYLASE 103 U/L (25-115)
[2019-04-16 08:28] LABS: ALANINE AMINOTRANSFERASE 13 U/L (12-78); ALBUMIN 3.1 G/DL (3.4-5.0); ALBUMIN/GLOBULIN RATIO 0.6 (1.0-2.7); ALKALINE PHOSPHATASE 100 U/L (46-116); ANION GAP 12 mmol/L (5-15); ASPARTATE AMINO TRANSFERASE 24 U/L (15-37); BILIRUBIN,TOTAL 0.3 MG/DL (0.2-1.0); BLOOD UREA NITROGEN 76 mg/dL (7-18); CALCIUM 7.6 MG/DL (8.5-10.1); CARBON DIOXIDE 21 MMOL/L (21-32); CHLORIDE 100 MMOL/L (98-107); CREATININE 2.6 MG/DL (0.55-1.30); POTASSIUM 3.6 MMOL/L (3.5-5.1); SODIUM 133 MMOL/L (136-145)
[2019-04-16 08:58] LABS: PHOSPHORUS 5.6 MG/DL (2.5-4.9)
[2019-04-16] MEDS ORDERED: Cephalexin 250mg Cap ORAL SCH (09:00)
[2019-04-16] MEDS: Ascorbic Acid 500mg tab ORAL SCH (09:00)
[2019-04-16] MEDS: Eliquis 2.5mg tablet GT SCH ×2 (09:00→17:44)
[2019-04-16] MEDS: levETIRAcetam 500mg/5ml Liquid GT SCH ×2 (09:33→20:59)
[2019-04-16] MEDS: Allopurinol 100mg Tab GT SCH (09:34)
--- NOTE | 2019-04-16 09:37 | General Progress Note ---
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; K31.84 - Gastroparesis SNOMED: 622674103 (3) UTI (urinary tract infection) ICD Codes: N39.0 - UTI (urinary tract infection) SNOMED: 26768238 (4) Seizure disorder ICD Codes: G40.909 - Epilepsy, unspecified, not intractable, without status epilepticus SNOMED: 470092417 (5) Dementia ICD Codes: F03.90 - Dementia SNOMED: 85119470 (6) DVT (deep vein thrombosis) in ICD Codes: O22.30 - Deep phlebothrombosis in , unspecified trimester; I82.409 - Acute embolism and thrombosis of unspecified deep veins of unspecified lower extremity SNOMED: 33504057 (7) Elevated lipase ICD Codes: R74.8 - Abnormal levels of other serum enzymes SNOMED: 351264749 Status: stable, unchanged Assessment/Plan: started on Gt feeding will DC IV restart Levemir DC Lopressor for low BP NS bolus ? DC in am labs checked add allopurinol and EPO SQ NPO- Lipase still elevated abd EWA results noted monitor I&O and Renal parameters Hydrate- Keep BP and BS in check full code per family avoid Nephrotoxics monitor renal parameters Id GI surg eval Subjective ROS Limited/Unobtainable: No Constitutional: Reports: malaise Allergies: Coded Allergies: METOCLOPRAMIDE (Verified Allergy, Unknown, 03/10/18) extrapyramidal Sx Objective Last 24 Hour Vital Signs Date Time Temp Pulse Resp B/P (MAP) Pulse Ox O2 Delivery O2 Flow Rate FiO2 04/16/19 08:20 98.6 64 18 136/67 (90) 99 04/16/19 08:00 98.5 59 18 87/46 (60) 99 04/16/19 05:18 104/39 04/16/19 04:00 97.5 60 18 104/39 (60) 98 04/16/19 00:02 98.5 62 18 105/48 (67) 100 04/16/19 00:00 98.5 04/15/19 21:00 Room Air 04/15/19 20:49 78 118/57 04/15/19 20:00 98.6 78 18 118/57 (77) 99 04/15/19 16:00 98.1 74 19 118/74 (89) 96 04/15/19 12:00 98.5 70 19 116/75 (89) 96 Intake and Output 04/15/19 04/16/19 19:00 07:00 Intake Total 1120 ml 1630 ml Output Total 275 ml 900 ml Balance 845 ml 730 ml Intake Free Water 160 ml IV Total 1100 ml 1150 ml Tube Feeding 20 ml 320 ml Output Urine Total 275 ml 900 ml Current Medications Medications (Trade) Dose Ordered Sig/Nancy Route PRN Reason Start Time Stop Time Status Last Admin Dose Admin Acetaminophen (Tylenol) 650 mg Q4H PRN GT Mild Pain/Temp > 100.5 04/13/19 12:30 05/13/19 04:59 Allopurinol (Zyloprim) 200 mg DAILY GT 04/16/19 09:00 05/16/19 08:59 Apixaban (Eliquis) 2.5 mg BID GT 04/13/19 09:00 05/13/19 08:59 Ascorbic Acid (Vitamin C) 250 mg DAILY ORAL 04/15/19 09:00 05/15/19 08:59 04/15/19 08:21 Cephalexin (Keflex) 250 mg DAILY ORAL 04/16/19 09:00 04/23/19 08:59 Dextrose (Dextrose 50%) 25 ml Q30M PRN IV Hypoglycemia 04/13/19 05:15 05/13/19 05:14 Dextrose (Dextrose 50%) 50 ml Q30M PRN IV Hypoglycemia 04/13/19 05:15 05/13/19 05:14 Epoetin Wallace (Epoetin Wallace-EPBX(NON ESRD)) 10,000 unit SAT-SAT-SAT SUBQ 04/15/19 21:00 05/15/19 20:59 04/15/19 20:50 Erythromycin (Erickson-Ped) 50 mg Q6H GT 04/13/19 09:00 04/20/19 08:59 04/16/19 02:50 Hydralazine HCl (Apresoline) 25 mg Q4H PRN GT bp over 160 syst 04/13/19 05:00 05/13/19 04:59 Insulin Aspart (NovoLOG) Q6HR SUBQ 04/13/19 06:00 05/13/19 05:59 04/16/19 05:27 Lansoprazole (Prevacid) 30 mg BID GT 04/13/19 09:00 05/13/19 08:59 04/15/19 18:07 Levetiracetam (Keppra) 1,250 mg Q12HR GT 04/13/19 09:00 05/13/19 08:59 04/15/19 20:49 Lorazepam (Ativan) 1 mg DAILY PRN GT For Anxiety 04/13/19 05:00 04/20/19 04:59 Metoprolol Tartrate (Lopressor) 12.5 mg Q12HR GT 04/14/19 21:00 05/13/19 12:29 04/15/19 20:49 Nitroglycerin (Ntg) 1 patch Q24H TDERMAL 04/13/19 06:00 05/13/19 05:59 04/13/19 06:14 Sodium Chloride 500 ml @ 999 mls/hr Q31M ONCE IV 04/16/19 09:45 04/16/19 10:15 UNV Tramadol HCl (Ultram) 25 mg Q6HR ORAL 04/14/19 15:00 04/21/19 14:59 04/15/19 23:32 Laboratory Tests 04/16/19 07:42: White Blood Count 5.0, Red Blood Count 2.62L, Hemoglobin 8.5L, Hematocrit 25.0L , Mean Corpuscular Volume 96, Mean Corpuscular Hemoglobin 32.5H, Mean Corpuscular Hemoglobin Concent 34.0, Red Cell Distribution Width 11.9, Platelet Count 89L, Mean Platelet Volume 11.7H, Neutrophils (%) (Auto) , Lymphocytes (%) (Auto) , Monocytes (%) (Auto) , Eosinophils (%) (Auto) , Basophils (%) (Auto) , Neutrophils % (Manual) [Pending], Lymphocytes % (Manual) [Pending], Platelet Estimate [Pending], Platelet Morphology [Pending], Sodium Level 133L, Potassium Level 3.6, Chloride Level 100, Carbon Dioxide Level 21, Anion Gap 12, Blood Urea Nitrogen 76H, Creatinine 2.6H, Estimat Glomerular Filtration Rate , Glucose Level 193H, Uric Acid 7.9H, Calcium Level 7.6L, Phosphorus Level 5.6H, Magnesium Level 2.8H, Total Bilirubin 0.3, Aspartate Amino Transf (AST/SGOT) 24 , Alanine Aminotransferase (ALT/SGPT) 13, Alkaline Phosphatase 100, C-Reactive Protein, Quantitative 5.8H, Pro-B-Type Natriuretic Peptide 2710H, Total Protein 8.0, Albumin 3.1L, Globulin 4.9, Albumin/Globulin Ratio 0.6L, Amylase Level 103 , Lipase 618H Height (Feet): 4 Height (Inches): 11.00 Weight (Pounds): 139 General Appearance: no apparent distress, lethargic Neck: limited range of motion Cardiovascular: bradycardia Respiratory/Chest: decreased breath sounds Abdomen: distended Extremities: other - edematous Estevan Orozco MD Apr 16, 2019 09:37
[2019-04-16] MEDS: Levemir Flexpen SUBQ SCH ×2 (09:59→20:50)
--- NOTE | 2019-04-16 10:03 | NUR ---
NURSE NOTES: PT resting in bed, awake, a/O x 0, calm , no SOB noted, tolerating GTube well, no residual. IVF infusing, martinez in place, clear yellow urine, BS 193 am, pt on BS meds, Dressing CDI, bed in low position, bed alarm on. fall and asp, seizure precautions maintained. will continue to monitor.
--- NOTE | 2019-04-16 10:04 | General Progress Note ---
Assessment/Plan Status: stable, unchanged Assessment/Plan: 1. Diabetes. 2. DVT. 3. UTI. 4. Osteomyelitis. 5. Peripheral vascular disease. 6. Brzgm-vgv-tswh amputations. 7. Pneumonia. 8. Seizure disorder. 9. Dementia. 10. Dysphagia with a G-tube. 11. Functional quadriplegia. 12. Renal insufficiency. 13. gallstones stable H&H fu stool ob transfuse to keep HGB above 7 US and MRCP reviewed GTF Subjective ROS Limited/Unobtainable: No Allergies: Coded Allergies: METOCLOPRAMIDE (Verified Allergy, Unknown, 03/10/18) extrapyramidal Sx Objective Last 24 Hour Vital Signs Date Time Temp Pulse Resp B/P (MAP) Pulse Ox O2 Delivery O2 Flow Rate FiO2 04/16/19 08:20 98.6 64 18 136/67 (90) 99 04/16/19 08:00 98.5 59 18 87/46 (60) 99 04/16/19 05:18 104/39 04/16/19 04:00 97.5 60 18 104/39 (60) 98 04/16/19 00:02 98.5 62 18 105/48 (67) 100 04/16/19 00:00 98.5 04/15/19 21:00 Room Air 04/15/19 20:49 78 118/57 04/15/19 20:00 98.6 78 18 118/57 (77) 99 04/15/19 16:00 98.1 74 19 118/74 (89) 96 04/15/19 12:00 98.5 70 19 116/75 (89) 96 Intake and Output 04/15/19 04/16/19 19:00 07:00 Intake Total 1120 ml 1630 ml Output Total 275 ml 900 ml Balance 845 ml 730 ml Intake Free Water 160 ml IV Total 1100 ml 1150 ml Tube Feeding 20 ml 320 ml Output Urine Total 275 ml 900 ml Laboratory Tests 04/16/19 07:42: White Blood Count 5.0, Red Blood Count 2.62L, Hemoglobin 8.5L, Hematocrit 25.0L , Mean Corpuscular Volume 96, Mean Corpuscular Hemoglobin 32.5H, Mean Corpuscular Hemoglobin Concent 34.0, Red Cell Distribution Width 11.9, Platelet Count 89L, Mean Platelet Volume 11.7H, Neutrophils (%) (Auto) , Lymphocytes (%) (Auto) , Monocytes (%) (Auto) , Eosinophils (%) (Auto) , Basophils (%) (Auto) , Neutrophils % (Manual) [Pending], Lymphocytes % (Manual) [Pending], Platelet Estimate [Pending], Platelet Morphology [Pending], Sodium Level 133L, Potassium Level 3.6, Chloride Level 100, Carbon Dioxide Level 21, Anion Gap 12, Blood Urea Nitrogen 76H, Creatinine 2.6H, Estimat Glomerular Filtration Rate , Glucose Level 193H, Uric Acid 7.9H, Calcium Level 7.6L, Phosphorus Level 5.6H, Magnesium Level 2.8H, Total Bilirubin 0.3, Aspartate Amino Transf (AST/SGOT) 24 , Alanine Aminotransferase (ALT/SGPT) 13, Alkaline Phosphatase 100, C-Reactive Protein, Quantitative 5.8H, Pro-B-Type Natriuretic Peptide 2710H, Total Protein 8.0, Albumin 3.1L, Globulin 4.9, Albumin/Globulin Ratio 0.6L, Amylase Level 103 , Lipase 618H Height (Feet): 4 Height (Inches): 11.00 Weight (Pounds): 139 General Appearance: lethargic EENT: normal ENT inspection Neck: supple Cardiovascular: normal rate Respiratory/Chest: decreased breath sounds Abdomen: normal bowel sounds, non tender, soft Extremities: non-tender Jamaal Arana MD Apr 16, 2019 10:04
--- NOTE | 2019-04-16 11:53 | Infectious Diseases Prog Note ---
Assessment/Plan Assessment/Plan Abx: Ceftriaxone 04/13- Assessment: Sepsis, SP Probable UTI -u/a wbc 40-60, nit neg, leuk +2; ucx 30-40k P mirabilis (I Levo; R amp, macrobid, bactrim, cipro; otherwise S) -BCx NTD -CXR: no acute disease Afebrile Leukocytosis, SP Pancreatitis -MRCP: Limited exam.Cholelithiasis, previous CT demonstrated, barely visible currently. Minimally ectatic extrahepatic bile ducts, probably age-related. No definite downstream obstructive lesion or choledocholithiasis, although evaluation is very limited due to the presence of significant motion Hepatic cysts, corresponding to findings reported on prior CT scan an sonogram. Acute on chronic encephalopathy OREN on CKD -renal US: Mildly increased renal echogenicity bilaterally, may indicate medical renal disease/ Negative for hydronephrosis. Incidental finding small left renal cysts. 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 Will continue to follow along with you. Discussed with RN Subjective Allergies: Coded Allergies: METOCLOPRAMIDE (Verified Allergy, Unknown, 03/10/18) extrapyramidal Sx Subjective afebrile no leukocytosis Objective Vital Signs Last 24 Hour Vital Signs Date Time Temp Pulse Resp B/P (MAP) Pulse Ox O2 Delivery O2 Flow Rate FiO2 04/16/19 09:00 Room Air 04/16/19 08:20 98.6 64 18 136/67 (90) 99 04/16/19 08:00 98.5 64 18 136/64 (88) 99 04/16/19 08:00 98.5 59 18 87/46 (60) 99 04/16/19 05:18 104/39 04/16/19 04:00 97.5 60 18 104/39 (60) 98 04/16/19 00:02 98.5 62 18 105/48 (67) 100 04/16/19 00:00 98.5 04/15/19 21:00 Room Air 04/15/19 20:49 78 118/57 12/11/19 20:00 98.6 78 18 118/57 (77) 99 04/15/19 16:00 98.1 74 19 118/74 (89) 96 04/15/19 12:00 98.5 70 19 116/75 (89) 96 Height (Feet): 4 Height (Inches): 11.00 Weight (Pounds): 139 Objective General Appearance: mild distress Neck: limited range of motion Cardiovascular: normal rate Respiratory/Chest: decreased breath sounds Abdomen: distended Laboratory Tests Test 04/16/19 07:42 White Blood Count 5.0 K/UL (4.8-10.8) Red Blood Count 2.62 M/UL (4.20-5.40) L Hemoglobin 8.5 G/DL (12.0-16.0) L Hematocrit 25.0 % (37.0-47.0) L Mean Corpuscular Volume 96 FL (80-99) Mean Corpuscular Hemoglobin 32.5 PG (27.0-31.0) H Mean Corpuscular Hemoglobin Concent 34.0 G/DL (32.0-36.0) Red Cell Distribution Width 11.9 % (11.6-14.8) Platelet Count 89 K/UL (150-450) L Mean Platelet Volume 11.7 FL (6.5-10.1) H Neutrophils (%) (Auto) % (45.0-75.0) Lymphocytes (%) (Auto) % (20.0-45.0) Monocytes (%) (Auto) % (1.0-10.0) Eosinophils (%) (Auto) % (0.0-3.0) Basophils (%) (Auto) % (0.0-2.0) Differential Total Cells Counted 100 Neutrophils % (Manual) 55 % (45-75) Lymphocytes % (Manual) 32 % (20-45) Monocytes % (Manual) 10 % (1-10) Eosinophils % (Manual) 2 % (0-3) Basophils % (Manual) 1 % (0-2) Band Neutrophils 0 % (0-8) Platelet Estimate Decreased L Platelet Morphology Normal Hypochromasia 2+ Anisocytosis 1+ Spherocytes 2+ Sodium Level 133 MMOL/L (136-145) L Potassium Level 3.6 MMOL/L (3.5-5.1) Chloride Level 100 MMOL/L (98-107) Carbon Dioxide Level 21 MMOL/L (21-32) Anion Gap 12 mmol/L (5-15) Blood Urea Nitrogen 76 mg/dL (7-18) H Creatinine 2.6 MG/DL (0.55-1.30) H Estimat Glomerular Filtration Rate mL/min (>60) Glucose Level 193 MG/DL (74-106) H Uric Acid 7.9 MG/DL (2.6-7.2) H Calcium Level 7.6 MG/DL (8.5-10.1) L Phosphorus Level 5.6 MG/DL (2.5-4.9) H Magnesium Level 2.8 MG/DL (1.8-2.4) H Total Bilirubin 0.3 MG/DL (0.2-1.0) Aspartate Amino Transf (AST/SGOT) 24 U/L (15-37) Alanine Aminotransferase (ALT/SGPT) 13 U/L (12-78) Alkaline Phosphatase 100 U/L (46-116) C-Reactive Protein, Quantitative 5.8 mg/dL (0.00-0.90) H Pro-B-Type Natriuretic Peptide 2710 pg/mL (0-125) H Total Protein 8.0 G/DL (6.4-8.2) Albumin 3.1 G/DL (3.4-5.0) L Globulin 4.9 g/dL Albumin/Globulin Ratio 0.6 (1.0-2.7) L Amylase Level 103 U/L (25-115) Lipase 618 U/L (73-393) H Current Medications Medications (Trade) Dose Ordered Sig/Nancy Route PRN Reason Start Time Stop Time Status Last Admin Dose Admin Acetaminophen (Tylenol) 650 mg Q4H PRN GT Mild Pain/Temp > 100.5 04/13/19 12:30 05/13/19 04:59 Allopurinol (Zyloprim) 200 mg DAILY GT 04/16/19 09:00 05/16/19 08:59 04/16/19 09:34 Apixaban (Eliquis) 2.5 mg BID GT 04/13/19 09:00 05/13/19 08:59 Ascorbic Acid (Vitamin C) 250 mg DAILY ORAL 04/15/19 09:00 05/15/19 08:59 04/16/19 09:00 Cephalexin (Keflex) 250 mg DAILY ORAL 04/16/19 09:00 04/23/19 08:59 04/16/19 09:35 Dextrose (Dextrose 50%) 25 ml Q30M PRN IV Hypoglycemia 04/13/19 05:15 05/13/19 05:14 Dextrose (Dextrose 50%) 50 ml Q30M PRN IV Hypoglycemia 04/13/19 05:15 05/13/19 05:14 Epoetin Wallace (Epoetin Wallace-EPBX(NON ESRD)) 10,000 unit SAT-SAT-SAT SUBQ 04/15/19 21:00 05/15/19 20:59 04/15/19 20:50 Erythromycin (Erickson-Ped) 50 mg Q6H GT 04/13/19 09:00 04/20/19 08:59 04/16/19 09:35 Hydralazine HCl (Apresoline) 25 mg Q4H PRN GT bp over 160 syst 04/13/19 05:00 05/13/19 04:59 Insulin Aspart (NovoLOG) Q6HR SUBQ 04/13/19 06:00 05/13/19 05:59 04/16/19 05:27 Insulin Detemir (Levemir) 20 units Q12HR SUBQ 04/16/19 10:30 05/16/19 10:29 04/16/19 09:59 Lansoprazole (Prevacid) 30 mg BID GT 04/13/19 09:00 05/13/19 08:59 04/16/19 09:34 Levetiracetam (Keppra) 1,250 mg Q12HR GT 04/13/19 09:00 05/13/19 08:59 04/16/19 09:33 Lorazepam (Ativan) 1 mg DAILY PRN GT For Anxiety 04/13/19 05:00 04/20/19 04:59 Nitroglycerin (Ntg) 1 patch Q24H TDERMAL 04/13/19 06:00 05/13/19 05:59 04/13/19 06:14 Tramadol HCl (Ultram) 25 mg Q6HR ORAL 04/14/19 15:00 04/21/19 14:59 04/15/19 23:32 Nkechi Stevenson M.D. Apr 16, 2019 11:53
[2019-04-16] MEDS: traMADol 50mg tab GT SCH ×2 (12:57→17:38)
--- NOTE | 2019-04-16 19:15 | NUR ---
NURSE NOTES: Received pt resting in bed. AAO x 0, non-verbal, on room air. IV site intact and patent. G tube intact and running Glucerna 1.2 @ 60cc/hr. No c/o pain, no acute distress noted at this time. Umaña intact and draining by gravity. Wound dressings intact and dry. Fall, aspiration, and seizure precaution maintained. Bed locked, lowest position, side rails up, call light within reach. Will continue to monitor.
--- NOTE | 2019-04-16 19:35 | Surgery Progress Note ---
Surgery Progress Note Subjective Additional Comments labs improved exam stable ill appearing overall but baseline Objective Last 24 Hour Vital Signs Date Time Temp Pulse Resp B/P (MAP) Pulse Ox O2 Delivery O2 Flow Rate FiO2 04/16/19 16:00 97.5 60 19 118/60 (79) 100 04/16/19 13:27 98.5 04/16/19 12:00 98.5 57 18 119/82 (94) 99 04/16/19 09:00 Room Air 04/16/19 08:20 98.6 64 18 136/67 (90) 99 04/16/19 08:00 98.5 59 18 87/46 (60) 99 04/16/19 05:18 104/39 04/16/19 04:00 97.5 60 18 104/39 (60) 98 04/16/19 00:02 98.5 62 18 105/48 (67) 100 04/16/19 00:00 98.5 04/15/19 21:00 Room Air 04/15/19 20:49 78 118/57 04/15/19 20:00 98.6 78 18 118/57 (77) 99 I&O Intake and Output 04/15/19 04/16/19 19:00 07:00 Intake Total 1120 ml 1670 ml Output Total 275 ml 900 ml Balance 845 ml 770 ml Intake Free Water 160 ml IV Total 1100 ml 1150 ml Tube Feeding 20 ml 360 ml Output Urine Total 275 ml 900 ml Dressing: saturated Wound: clean Cardiovascular: RSR Respiratory: clear, decreased breath sounds Abdomen: soft, present bowel sounds, non-distended Extremities: no cyanosis, other Laboratory Tests Test 04/16/19 07:42 White Blood Count 5.0 K/UL (4.8-10.8) Red Blood Count 2.62 M/UL (4.20-5.40) L Hemoglobin 8.5 G/DL (12.0-16.0) L Hematocrit 25.0 % (37.0-47.0) L Mean Corpuscular Volume 96 FL (80-99) Mean Corpuscular Hemoglobin 32.5 PG (27.0-31.0) H Mean Corpuscular Hemoglobin Concent 34.0 G/DL (32.0-36.0) Red Cell Distribution Width 11.9 % (11.6-14.8) Platelet Count 89 K/UL (150-450) L Mean Platelet Volume 11.7 FL (6.5-10.1) H Neutrophils (%) (Auto) % (45.0-75.0) Lymphocytes (%) (Auto) % (20.0-45.0) Monocytes (%) (Auto) % (1.0-10.0) Eosinophils (%) (Auto) % (0.0-3.0) Basophils (%) (Auto) % (0.0-2.0) Differential Total Cells Counted 100 Neutrophils % (Manual) 55 % (45-75) Lymphocytes % (Manual) 32 % (20-45) Monocytes % (Manual) 10 % (1-10) Eosinophils % (Manual) 2 % (0-3) Basophils % (Manual) 1 % (0-2) Band Neutrophils 0 % (0-8) Platelet Estimate Decreased L Platelet Morphology Normal Hypochromasia 2+ Anisocytosis 1+ Spherocytes 2+ Sodium Level 133 MMOL/L (136-145) L Potassium Level 3.6 MMOL/L (3.5-5.1) Chloride Level 100 MMOL/L (98-107) Carbon Dioxide Level 21 MMOL/L (21-32) Anion Gap 12 mmol/L (5-15) Blood Urea Nitrogen 76 mg/dL (7-18) H Creatinine 2.6 MG/DL (0.55-1.30) H Estimat Glomerular Filtration Rate mL/min (>60) Glucose Level 193 MG/DL (74-106) H Uric Acid 7.9 MG/DL (2.6-7.2) H Calcium Level 7.6 MG/DL (8.5-10.1) L Phosphorus Level 5.6 MG/DL (2.5-4.9) H Magnesium Level 2.8 MG/DL (1.8-2.4) H Total Bilirubin 0.3 MG/DL (0.2-1.0) Aspartate Amino Transf (AST/SGOT) 24 U/L (15-37) Alanine Aminotransferase (ALT/SGPT) 13 U/L (12-78) Alkaline Phosphatase 100 U/L (46-116) C-Reactive Protein, Quantitative 5.8 mg/dL (0.00-0.90) H Pro-B-Type Natriuretic Peptide 2710 pg/mL (0-125) H Total Protein 8.0 G/DL (6.4-8.2) Albumin 3.1 G/DL (3.4-5.0) L Globulin 4.9 g/dL Albumin/Globulin Ratio 0.6 (1.0-2.7) L Amylase Level 103 U/L (25-115) Lipase 618 U/L (73-393) H Plan Problems: (1) Pancreatitis Assessment & Plan: This is a 83-year-old female with multiple medical comorbidities who is care dependent [facility] patient with leukocytosis, abnormal labs, chemical pancreatitis. Unfortunately given patient's baseline medical condition mental status unable to obtain information or right reliable examination to evaluate for pain or discomfort. Okay for diet Trend labs IV fluid hydration There is considerable image degradation due to motion artifact. Gallstones demonstrated on prior sonogram are barely visible on the current images, best appreciated on the axial T2-weighted sequences and 8 equivocally visible on the coronal MRCP sequences. No definite intraluminal bile duct filling defect demonstrated. The common hepatic duct measures up to 8 mm in diameter, but no definite downstream obstructive lesion is demonstrated. Note, however, that visualization of the common bile duct and common hepatic duct are limited due to the motion. The pancreatic duct is unremarkable. There is no gallbladder wall thickening nor pericholecystic fluid. The liver demonstrates multiple cysts which correspond to the low-attenuation lesions demonstrated on prior CT. The pancreas is grossly unremarkable. The spleen, adrenals, kidneys are unremarkable. There is a gastrostomy tube in good position. No pelvic mass. The uterus is unremarkable. Impression: Limited exam, as described Cholelithiasis, previous CT demonstrated, barely visible currently Minimally ectatic extrahepatic bile ducts, probably age-related. No definite downstream obstructive lesion or choledocholithiasis, although evaluation is very limited due to the presence of significant motion Hepatic cysts, corresponding to findings reported on prior CT scan an sonogram. Gastrostomy resolving improving cont feeds as tolerated We will monitor and follow with recommendations Thank you for let me to participate in patient's care (2) Decubitus skin ulcer Assessment & Plan: Pt presented with MASD mons pubis, Bilat groin, medial aspects of both upper thighs. Erythema with denuded skin noted. Sacral hyperpigmentation from previous wound noted to sacrum. 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 Unstageable pressure injury R Hallux. Soft necrotic cap noted with surrounding semi-detached borders.(L)1.4cm x (W)1cm. Periwound skin is dry and black. Hyperpigmentation with Scarring noted to R heel. Tx.Plan: Apply Betadine to R hallux. Cover with Optifoam drsg Daily and prn. Apply Remedy Antifungal Cream to abd folds ,Mons Pubis and medial aspects of both upper thighs Twice Daily. Apply Triad Paste to sacrum. Cover with Optifoam drsg. Change every 3 days and prn. Reposition at least every 2hours or as tolerated. Off-load R heel with pillow. Nutritional optimization DAILY ESTIMATED NEEDS: Needs based on DM, TF JET MAN, Wound (Adj wt 49kg) 25-31 kcals/kg 8877-3853 total kcals 1.25-1.5 g protein/kg 61-73 g total protein 25-30 mL/kg 7356-1356 total fluid mLs NUTRITION DIAGNOSIS: 1) Increased kcal/prot needs R/T wound healing as evidenced by sacral wound photo, pending eval. 2) Swallowing difficulty R/T dysphagia as evidenced by pt is PEG dep, NPO at this time. 3) Altered nutrition related lab values R/T dehydration and clinical conditions as evidenced by elev Na (148), elev BUN/creat (102/2.9), elev phos (6.2), elev lipase (883 trend up). CURRENT TF:NPO ENTERAL NUTRITION RECOMMENDATIONS: Glucerna 1.2 @ 50ml/hr x 24 hrs to provide 1200ml, 1440kcal, 72g prot, 966ml free water * As medically appropriate, initiate Glucerna 1.2 @ 30ml/hr x 6hrs * Advance 10ml q 4-6 hrs as tolerated to goal. * HOB over 30 degrees/ H2O flush per MD ADDITIONAL RECOMMENDATIONS: 1) Per SNF: HT=60", EF=665ehg (as of 04/13/19) rec weekly calibrated bedscale wts 2) Monitor phos closely, need for TF change to renal formula 3) F/up with wound eval -> add Vit C 250mg QD and Damian 1pkt BID for wound healing . Taco Carter Apr 16, 2019 19:35
--- NOTE | 2019-04-16 19:41 | Cardiology Report ---
APPROVED REPORT EKG Measurement Heart [id number] MN [id number] [id number] Sinus tachycardia Minimal voltage criteria for LVH, may be normal variant T wave abnormality, consider anterolateral ischemia Abnormal ECG
[2019-04-17] VITALS: BP 129/72
[2019-04-17] MEDS: traMADol 50mg tab GT SCH ×2 (00:58→05:56)
[2019-04-17] MEDS: Erythromycin Ethylsuccinate 200mg/5ml Susp GT SCH ×2 (02:25→09:33)
[2019-04-17 04:00] VITALS: BP 131/69
--- NOTE | 2019-04-17 04:20 | NUR ---
NURSE NOTES: Collected OB stool and sent to the lab.
[2019-04-17] MEDS: Nitroglycerin Patch 0.4mg TDERMAL SCH (05:55)
[2019-04-17] MEDS: NovoLOG Insulin Flexpen SUBQ SCH ×2 (06:03)
--- NOTE | 2019-04-17 07:08 | NUR ---
HAND-OFF: Report given to LUIS Archibald.
--- NOTE | 2019-04-17 07:28 | General Progress Note ---
Assessment/Plan Status: stable, unchanged Assessment/Plan: 1. Diabetes. 2. DVT. 3. UTI. 4. Osteomyelitis. 5. Peripheral vascular disease. 6. Crkol-kiy-ydfy amputations. 7. Pneumonia. 8. Seizure disorder. 9. Dementia. 10. Dysphagia with a G-tube. 11. Functional quadriplegia. 12. Renal insufficiency. 13. gallstones stable H&H fu stool ob transfuse to keep HGB above 7 US and MRCP reviewed GTF Subjective ROS Limited/Unobtainable: No Allergies: Coded Allergies: METOCLOPRAMIDE (Verified Allergy, Unknown, 03/10/18) extrapyramidal Sx Objective Last 24 Hour Vital Signs Date Time Temp Pulse Resp B/P (MAP) Pulse Ox O2 Delivery O2 Flow Rate FiO2 04/17/19 05:55 131/69 04/17/19 04:00 97.7 78 22 131/69 (89) 98 04/17/19 00:00 97.0 73 20 129/72 (91) 98 04/16/19 21:00 Room Air 04/16/19 20:00 98.4 82 19 140/77 (98) 96 04/16/19 16:00 97.5 60 19 118/60 (79) 100 04/16/19 13:27 98.5 04/16/19 12:00 98.5 57 18 119/82 (94) 99 04/16/19 09:00 Room Air 04/16/19 08:20 98.6 64 18 136/67 (90) 99 04/16/19 08:00 98.5 59 18 87/46 (60) 99 Intake and Output 04/16/19 04/17/19 19:00 07:00 Intake Total 550 ml 930 ml Output Total 800 ml Balance 550 ml 130 ml Intake Free Water 160 ml Tube Feeding 550 ml 770 ml Output Urine Total 800 ml # Voids 1 # Bowel Movements 1 Laboratory Tests 04/16/19 07:42: White Blood Count 5.0, Red Blood Count 2.62L, Hemoglobin 8.5L, Hematocrit 25.0L , Mean Corpuscular Volume 96, Mean Corpuscular Hemoglobin 32.5H, Mean Corpuscular Hemoglobin Concent 34.0, Red Cell Distribution Width 11.9, Platelet Count 89L, Mean Platelet Volume 11.7H, Neutrophils (%) (Auto) , Lymphocytes (%) (Auto) , Monocytes (%) (Auto) , Eosinophils (%) (Auto) , Basophils (%) (Auto) , Differential Total Cells Counted 100, Neutrophils % (Manual) 55, Lymphocytes % ( Manual) 32, Monocytes % (Manual) 10, Eosinophils % (Manual) 2, Basophils % ( Manual) 1, Band Neutrophils 0, Platelet Estimate DecreasedL, Platelet Morphology Normal, Hypochromasia 2+, Anisocytosis 1+, Spherocytes 2+, Sodium Level 133L, Potassium Level 3.6, Chloride Level 100, Carbon Dioxide Level 21, Anion Gap 12, Blood Urea Nitrogen 76H, Creatinine 2.6H, Estimat Glomerular Filtration Rate , Glucose Level 193H, Uric Acid 7.9H, Calcium Level 7.6L, Phosphorus Level 5.6H, Magnesium Level 2.8H, Total Bilirubin 0.3, Aspartate Amino Transf (AST/SGOT) 24, Alanine Aminotransferase (ALT/SGPT) 13, Alkaline Phosphatase 100, C-Reactive Protein, Quantitative 5.8H, Pro-B-Type Natriuretic Peptide 2710H, Total Protein 8.0, Albumin 3.1L, Globulin 4.9, Albumin/Globulin Ratio 0.6L, Amylase Level 103, Lipase 618H 04/17/19 06:40: White Blood Count [Pending], Red Blood Count [Pending], Hemoglobin [Pending], Hematocrit [Pending], Mean Corpuscular Volume [Pending], Mean Corpuscular Hemoglobin [Pending], Mean Corpuscular Hemoglobin Concent [Pending], Red Cell Distribution Width [Pending], Platelet Count [Pending], Mean Platelet Volume [ Pending], Neutrophils (%) (Auto) [Pending], Lymphocytes (%) (Auto) [Pending], Monocytes (%) (Auto) [Pending], Eosinophils (%) (Auto) [Pending], Basophils (%) (Auto) [Pending], Sodium Level [Pending], Potassium Level [Pending], Chloride Level [Pending], Carbon Dioxide Level [Pending], Blood Urea Nitrogen [Pending], Creatinine [Pending], Estimat Glomerular Filtration Rate [Pending], Glucose Level [Pending], Uric Acid [Pending], Calcium Level [Pending], Phosphorus Level [Pending], Magnesium Level [Pending], Total Bilirubin [Pending], Aspartate Amino Transf (AST/SGOT) [Pending], Alanine Aminotransferase (ALT/SGPT) [Pending] , Alkaline Phosphatase [Pending], C-Reactive Protein, Quantitative [Pending], Total Protein [Pending], Albumin [Pending], Globulin [Pending] Height (Feet): 4 Height (Inches): 11.00 Weight (Pounds): 139 General Appearance: no apparent distress EENT: normal ENT inspection Neck: supple Cardiovascular: normal rate Respiratory/Chest: decreased breath sounds Abdomen: normal bowel sounds, non tender, soft Extremities: non-tender Jamaal Arana MD Apr 17, 2019 07:28
--- NOTE | 2019-04-17 07:29 | NUR ---
NURSE NOTES: Patient alert x0, non-verbal; on room air, no sing of shortness of breath; no sing of distress; will give suctioning as needed; IV Right For-Arm 24G TKO; Glucerna 1.2 running at 60cc, no residual; head of the bed elevated, side rails padded for seizure percussion, bed at lowest position, breaks engaged; Umaña in place drains yellow urine; will keep monitoring.
[2019-04-17 07:37] LABS: BASOPHILS % (AUTO) 0.6 % (0.0-2.0); EOSINOPHILS % (AUTO) 1.9 % (0.0-3.0); HEMATOCRIT 24.9 % (37.0-47.0); HEMOGLOBIN 8.4 G/DL (12.0-16.0); LYMPHOCYTES % (AUTO) 22.9 % (20.0-45.0); MEAN CORPUSCULAR VOLUME 96 FL (80-99); MONOCYTES % (AUTO) 6.7 % (1.0-10.0); NEUTROPHILS % (AUTO) 67.9 % (45.0-75.0); PLATELET COUNT 100 K/UL (150-450); RED BLOOD COUNT 2.58 M/UL (4.20-5.40); RED CELL DISTRIBUTION WIDTH 12.4 % (11.6-14.8); WHITE BLOOD COUNT 6.6 K/UL (4.8-10.8)
[2019-04-17 07:56] LABS: ALANINE AMINOTRANSFERASE 20 U/L (12-78); ALBUMIN 2.9 G/DL (3.4-5.0); ALBUMIN/GLOBULIN RATIO 0.6 (1.0-2.7); ALKALINE PHOSPHATASE 107 U/L (46-116); ANION GAP 12 mmol/L (5-15); ASPARTATE AMINO TRANSFERASE 35 U/L (15-37); BILIRUBIN,TOTAL 0.2 MG/DL (0.2-1.0); BLOOD UREA NITROGEN 72 mg/dL (7-18); CALCIUM 7.7 MG/DL (8.5-10.1); CARBON DIOXIDE 20 MMOL/L (21-32); CHLORIDE 107 MMOL/L (98-107); CREATININE 2.5 MG/DL (0.55-1.30); PHOSPHORUS 5.3 MG/DL (2.5-4.9); SODIUM 139 MMOL/L (136-145)
[2019-04-17 08:00] VITALS: BP 123/75
[2019-04-17] MEDS ORDERED: Ascorbic Acid 500mg tab GT SCH (09:00)
[2019-04-17] MEDS ORDERED: Cephalexin 250mg Cap GT SCH (09:00)
[2019-04-17] MEDS: levETIRAcetam 500mg/5ml Liquid GT SCH (09:07)
[2019-04-17] MEDS: Eliquis 2.5mg tablet GT SCH (09:14)
[2019-04-17] MEDS: Allopurinol 100mg Tab GT SCH (09:14)
--- NOTE | 2019-04-17 09:14 | General Progress Note ---
Assessment/Plan Problem List: (1) Acute on chronic renal failure ICD Codes: N17.9 - Acute kidney failure, unspecified; N18.9 - Chronic kidney disease, unspecified SNOMED: 488557171 (2) Gastroparesis due to DM ICD Codes: E11.43 - Type 2 diabetes mellitus with diabetic autonomic (poly) neuropathy; K31.84 - Gastroparesis SNOMED: 488754891 (3) UTI (urinary tract infection) ICD Codes: N39.0 - UTI (urinary tract infection) SNOMED: 99992697 (4) Seizure disorder ICD Codes: G40.909 - Epilepsy, unspecified, not intractable, without status epilepticus SNOMED: 703922901 (5) Dementia ICD Codes: F03.90 - Dementia SNOMED: 29271396 (6) DVT (deep vein thrombosis) in ICD Codes: O22.30 - Deep phlebothrombosis in , unspecified trimester; I82.409 - Acute embolism and thrombosis of unspecified deep veins of unspecified lower extremity SNOMED: 54260659 (7) Elevated lipase ICD Codes: R74.8 - Abnormal levels of other serum enzymes SNOMED: 980627886 Status: stable, unchanged Assessment/Plan: DC to ECF started on Gt feeding will DC IV restart Levemir DC Lopressor for low BP NS bolus ? DC in am labs checked add allopurinol and EPO SQ NPO- Lipase still elevated abd EWA results noted monitor I&O and Renal parameters Hydrate- Keep BP and BS in check full code per family avoid Nephrotoxics monitor renal parameters Id GI surg eval Subjective ROS Limited/Unobtainable: No Constitutional: Reports: malaise Allergies: Coded Allergies: METOCLOPRAMIDE (Verified Allergy, Unknown, 03/10/18) extrapyramidal Sx Objective Last 24 Hour Vital Signs Date Time Temp Pulse Resp B/P (MAP) Pulse Ox O2 Delivery O2 Flow Rate FiO2 04/17/19 08:00 97.5 72 18 123/75 (91) 99 04/17/19 05:55 131/69 04/17/19 04:00 97.7 78 22 131/69 (89) 98 04/17/19 00:00 97.0 73 20 129/72 (91) 98 04/16/19 21:00 Room Air 04/16/19 20:00 98.4 82 19 140/77 (98) 96 04/16/19 16:00 97.5 60 19 118/60 (79) 100 04/16/19 13:27 98.5 04/16/19 12:00 98.5 57 18 119/82 (94) 99 Intake and Output 04/16/19 04/17/19 19:00 07:00 Intake Total 550 ml 930 ml Output Total 800 ml Balance 550 ml 130 ml Intake Free Water 160 ml Tube Feeding 550 ml 770 ml Output Urine Total 800 ml # Voids 1 # Bowel Movements 1 Current Medications Medications (Trade) Dose Ordered Sig/Nancy Route PRN Reason Start Time Stop Time Status Last Admin Dose Admin Acetaminophen (Tylenol) 650 mg Q4H PRN GT Mild Pain/Temp > 100.5 04/13/19 12:30 05/13/19 04:59 Allopurinol (Zyloprim) 200 mg DAILY GT 04/16/19 09:00 05/16/19 08:59 04/16/19 09:34 Apixaban (Eliquis) 2.5 mg BID GT 04/13/19 09:00 05/13/19 08:59 Ascorbic Acid (Vitamin C) 250 mg DAILY GT 04/17/19 09:00 05/15/19 08:59 Cephalexin (Keflex) 250 mg DAILY GT 04/17/19 09:00 04/23/19 08:59 Dextrose (Dextrose 50%) 25 ml Q30M PRN IV Hypoglycemia 04/13/19 05:15 05/13/19 05:14 Dextrose (Dextrose 50%) 50 ml Q30M PRN IV Hypoglycemia 04/13/19 05:15 05/13/19 05:14 Epoetin Wallace (Epoetin Wallace-EPBX(NON ESRD)) 10,000 unit SAT-SAT-SAT SUBQ 04/15/19 21:00 05/15/19 20:59 04/15/19 20:50 Erythromycin (Erickson-Ped) 50 mg Q6H GT 04/13/19 09:00 04/20/19 08:59 04/17/19 02:25 Hydralazine HCl (Apresoline) 25 mg Q4H PRN GT bp over 160 syst 04/13/19 05:00 05/13/19 04:59 Insulin Aspart (NovoLOG) Q6HR SUBQ 04/13/19 06:00 05/13/19 05:59 04/17/19 06:03 Insulin Detemir (Levemir) 20 units Q12HR SUBQ 04/16/19 10:30 05/16/19 10:29 04/16/19 20:50 Lansoprazole (Prevacid) 30 mg BID GT 04/13/19 09:00 05/13/19 08:59 04/16/19 17:38 Levetiracetam (Keppra) 1,250 mg Q12HR GT 04/13/19 09:00 05/13/19 08:59 04/16/19 20:59 Lorazepam (Ativan) 1 mg DAILY PRN GT For Anxiety 04/13/19 05:00 04/20/19 04:59 Nitroglycerin (Ntg) 1 patch Q24H TDERMAL 04/13/19 06:00 05/13/19 05:59 04/17/19 05:55 Tramadol HCl (Ultram) 25 mg Q6HR GT 04/16/19 12:27 04/23/19 12:26 04/17/19 05:56 Laboratory Tests 04/17/19 06:40: White Blood Count 6.6, Red Blood Count 2.58L, Hemoglobin 8.4L, Hematocrit 24.9L , Mean Corpuscular Volume 96, Mean Corpuscular Hemoglobin 32.7H, Mean Corpuscular Hemoglobin Concent 33.9, Red Cell Distribution Width 12.4, Platelet Count 100L, Mean Platelet Volume 11.4H, Neutrophils (%) (Auto) 67.9, Lymphocytes (%) (Auto) 22.9, Monocytes (%) (Auto) 6.7, Eosinophils (%) (Auto) 1.9, Basophils (%) (Auto) 0.6, Sodium Level 139, Potassium Level 4.0, Chloride Level 107, Carbon Dioxide Level 20L, Anion Gap 12, Blood Urea Nitrogen 72H, Creatinine 2.5H, Estimat Glomerular Filtration Rate , Glucose Level 163H, Uric Acid 7.6H, Calcium Level 7.7L, Phosphorus Level 5.3H, Magnesium Level 2.8H, Total Bilirubin 0.2, Aspartate Amino Transf (AST/SGOT) 35, Alanine Aminotransferase (ALT/SGPT) 20, Alkaline Phosphatase 107, C-Reactive Protein, Quantitative 5.3H, Total Protein 7.7, Albumin 2.9L, Globulin 4.8, Albumin/ Globulin Ratio 0.6L Height (Feet): 4 Height (Inches): 11.00 Weight (Pounds): 139 General Appearance: no apparent distress Neck: limited range of motion Cardiovascular: normal rate Respiratory/Chest: decreased breath sounds Abdomen: soft Estevan Orozco MD Apr 17, 2019 09:14
[2019-04-17] MEDS: Levemir Flexpen SUBQ SCH (09:16)
[2019-04-17] MEDS ORDERED: NTG1 PATCH TDERMAL (09:17)
[2019-04-17] MEDS ORDERED: ALLOPURINOL100 M1 GT (09:17)
[2019-04-17] MEDS ORDERED: CEPHALEXIN250 MG GT (09:17)
--- NOTE | 2019-04-17 09:18 | Discharge Instructions ---
Discharge Instructions Discharge Instructions Follow up with: fu in ECF by me Diet: other - GT feeding Special Instructions aspiration percautions routin skin care seizure percautions For Congestive Heart Failure Reminder Report to your physician any weight gain of 5 pounds or more in one week. Estevan Orozco MD Apr 17, 2019 09:18
--- NOTE | 2019-04-17 11:49 | NUR ---
NURSE NOTES: Patient discharged to [facility] via ambulance. Report given to Chi at facility. Discharge packet given to ambulance personnel.
--- NOTE | 2019-04-17 12:41 | NUR ---
NURSE NOTES: Patient discharged to [facility] via ambulance; report given by the charge nurse Chastity to the facility; Wound care provided, and pictures taken and upload; IV access and name tag removed upon discharge; Umaña kept upon discharge per MD Peraza order; Oral suction provided before discharge. Patient's vital stable upon discharge. Patient's belongings given to ambulance personnel; printed package material given to ambulance personnel.
== END 2019-04-17 12:07 | DRG 871 ==
LOC: EDBD 00:22 → EMR 00:44 → EDBEDREQ 03:22 → 4E 03:32
DX: A41.9 Sepsis, unspecified organism (principal); K85.90 Acute pancreatitis without necrosis or infection, unspecified; R53.2 Functional quadriplegia; N17.9 Acute kidney failure, unspecified; N39.0 Urinary tract infection, site not specified; G93.40 Encephalopathy, unspecified; I69.351 Hemiplegia and hemiparesis following cerebral infarction affecting right dominant side; Z43.1 Encounter for attention to gastrostomy; E86.0 Dehydration; F03.90 Unspecified dementia, unspecified severity, without behavioral disturbance, psychotic disturbance, mood disturbance, and anxiety; E87.5 Hyperkalemia; N18.9 Chronic kidney disease, unspecified; E11.43 Type 2 diabetes mellitus with diabetic autonomic (poly)neuropathy; K31.84 Gastroparesis; L89.890 Pressure ulcer of other site, unstageable; Z88.8 Allergy status to other drugs, medicaments and biological substances; G40.909 Epilepsy, unspecified, not intractable, without status epilepticus; Z86.718 Personal history of other venous thrombosis and embolism; Z89.612 Acquired absence of left leg above knee; R13.10 Dysphagia, unspecified; Z79.4 Long term (current) use of insulin; D64.9 Anemia, unspecified; R74.8 Abnormal levels of other serum enzymes; K80.20 Calculus of gallbladder without cholecystitis without obstruction; K76.89 Other specified diseases of liver
CPT/HCPCS: 36415; 70450; 71045; 74181; 76700; 76770; 80053; 80061; 81003; 82150; 82270; 82533; 82550; 82553; 82607; 82728; 82746; 82962; 83540; 83550; 83605; 83690; 83735; 83880; 84100; 84443; 84484; 84550; 85007; 85025; 86140; 87040; 87086; 87181; 93005; 96361; 96365; 99285; J1815; J7030; S5561

== ENCOUNTER 2019-09-17 05:02 | Inpatient (IN) | payer MEDICARE, MEDICAID ==
[2019-09-17] VITALS (28 sets, daily range): BP systolic 60–159; BP diastolic 32–137
[~2019-09-17] VITALS: Ht 167.6 cm; Wt 83.5 kg
[~2019-09-17 05:02] MED LIST changes: +ALLOPURINOL100 M1 GT; +ASPIRIN81 MG GT; +CEPHALEXIN250 MG GT; +SKIN PROTECTAN113 GM TP; +VITAMIN A & D113 GM TP
--- NOTE | 2019-09-17 05:05 | Emergency Room Report ---
History of Present Illness Present Illness HPI Patient is an 84-year-old female brought in by EMS after recent seizure. Previous history of seizure disorder currently on Keppra. Patient was sent in from [facility]. Had witnessed seizure and had been given Versed IM 5 mg by paramedics. Seizure subsequently resolved. 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 Hx Dementia: Yes Hx Seizures: Yes - Epilepsy Hx Epilepsy: Yes Hx Speech Problem: Yes - Non-verbal Hx Dysphasia: Yes - G-tube (Srini Davis MD) Review of Systems All Other Systems: limited (Srini Davis MD) Physical Exam General Appearance: alert, moderate distress, Chronically Ill Neck: limited range of motion Respiratory: rales Cardiovascular #1: tachycardia Gastrointestinal: normal inspection, non tender Neurologic: motor weakness, aphasia, other - contracture, twitching Skin: no rash (Srini Davis MD) Procedures Critical Care Time Critical Care Time Total critical care time: Approximately 31 minutes Due to a high probability of clinically significant, life threatening deterioration, the patient required the highest level of preparedness to intervene emergently and I personally spent this critical care time directly and personally managing the patient. This critical care time included obtaining a history, examining the patient, pulse oximetry, ordering and reviewing studies , ordering treatments, evaluating response to treatment and updating management plan as needed, frequent reassessment and discussion with other providers as well as arranging for ultimate disposition. This critical to care time was performed to assess and manage the high probability of life-threatening deterioration that could result in multiorgan failure. This critical care time is separate from the separately billable procedures and treating other patients. (Ezra Castellanos MD) Intubation Intubation : Consent: Emergent Intubation Method: orotracheal Tube Size (cm): 7.5 Medications: Etomidate, Rocuronium Breath Sounds after Intubation: equal Intubation Complications: no complications Post Intubation Xray: Yes Progress/Xray Impression: Endotracheal tube tip above the christiano, satisfactory position Attempts: One Patient Tolerated: Well Complications: None (Ezra Castellanos MD) Medical Decision Making Diagnostic Impression: Primary Impression: Febrile illness, acute Additional Impressions: Seizure Recurrent urinary tract infection Pneumonia Suspected 2019 novel coronavirus infection Sepsis with acute hypoxic respiratory failure Acute on chronic renal failure ER Course Patient is an 84-year-old female who was sent in for seizure. Differential diagnosis include was not limited to pneumonia, urinary tract infection, coronavirus infection, among others. Because of complexity of patient's case laboratory tests and imaging studies were ordered. Patient was seen in the emergency department was noted to be somnolent after having been given Versed. Patient had prior notes history of seizure disorder. Febrile to 102 degrees in the emergency department. Blood cultures were obtained and patient was empirically given IV antibiotics. Patient will likely require admission and further work-up of fever. Coronavirus swab was sent. Patient was endorsed to Dr. Castellanos pending laboratory results and likely admission because of acute febrile illness and possible coronavirus infection. (Srini Davis MD) ER Course Patient signed out to me pending chest x-ray Briefly, this an 84-year-old female presenting from convalescent home for seizure. She is found febrile and there is concern for sepsis. Labs show an elevated lactate, bacteria in urine but no inflammatory markers, elevated lactate. Patient remains febrile and receiving Tylenol. Chest x-ray shows right middle and upper lobe consolidation concerning for pneumonia. Treated with broad-spectrum antibiotics. Patient kept in isolation and will be swabbed for COVID-19. Due to increased work of breathing, tachypnea and hypoxia seen on ABG as well as a right-sided consolidation on chest x-ray decision was made to intubate the patient. Successful intubation with 7.5 endotracheal tube using glide scope without complications. Chest x-ray confirms appropriate position of endotracheal tube tip. Will admit to the ICU. Laboratory Tests Test 09/17/19 05:20 09/17/19 05:44 White Blood Count 11.1 K/UL (4.8-10.8) H Red Blood Count 2.45 M/UL (4.20-5.40) L Hemoglobin 8.3 G/DL (12.0-16.0) L Hematocrit 24.1 % (37.0-47.0) L Mean Corpuscular Volume 99 FL (80-99) Mean Corpuscular Hemoglobin 33.9 PG (27.0-31.0) H Mean Corpuscular Hemoglobin Concent 34.3 G/DL (32.0-36.0) Red Cell Distribution Width 13.2 % (11.6-14.8) Platelet Count 94 K/UL (150-450) L Mean Platelet Volume 9.9 FL (6.5-10.1) Neutrophils (%) (Auto) % (45.0-75.0) Lymphocytes (%) (Auto) % (20.0-45.0) Monocytes (%) (Auto) % (1.0-10.0) Eosinophils (%) (Auto) % (0.0-3.0) Basophils (%) (Auto) % (0.0-2.0) Sodium Level 153 MMOL/L (136-145) H Potassium Level 4.9 MMOL/L (3.5-5.1) Chloride Level 115 MMOL/L (98-107) H Carbon Dioxide Level 19 MMOL/L (21-32) L Anion Gap 19 mmol/L (5-15) H Blood Urea Nitrogen 148 mg/dL (7-18) H Creatinine 6.0 MG/DL (0.55-1.30) H Estimated Glomerular Filtration Rate 8.1 mL/min (>60) Glucose Level 358 MG/DL (74-106) H Lactic Acid Level 2.90 mmol/L (0.4-2.0) H Calcium Level 7.5 MG/DL (8.5-10.1) L Total Bilirubin 0.6 MG/DL (0.2-1.0) Aspartate Amino Transferase (AST) 278 U/L (15-37) H Alanine Aminotransferase (ALT) 106 U/L (12-78) H Alkaline Phosphatase 94 U/L (46-116) Total Creatine Kinase 1331 U/L (26-308) H Troponin I Pending Total Protein 9.0 G/DL (6.4-8.2) H Albumin 2.8 G/DL (3.4-5.0) L Globulin 6.2 g/dL Albumin/Globulin Ratio 0.5 (1.0-2.7) L Urine Color Yellow Urine Appearance Slightly cloudy Urine pH 5 (4.5-8.0) Urine Specific [place] 1.015 (1.005-1.035) Urine Protein 4+ (NEGATIVE) H Urine Glucose (UA) Negative (NEGATIVE) Urine Ketones Negative (NEGATIVE) Urine Blood 4+ (NEGATIVE) H Urine Nitrite Negative (NEGATIVE) Urine Bilirubin Negative (NEGATIVE) Urine Urobilinogen Normal MG/DL (0.0-1.0) Urine Leukocyte Esterase Negative (NEGATIVE) Urine RBC 5-10 /HPF (0 - 2) H Urine WBC 0-2 /HPF (0 - 2) Urine Squamous Epithelial Cells Few /LPF (NONE/OCC) Urine Bacteria Many /HPF (NONE) H Urine Coarse Granular Casts 5-10 /LPF (NONE) H (Ezra Castellanos MD) Chest X-Ray Diagnostic Results Chest X-Ray Diagnostic Results #1: Chest X-Ray Ordered: Yes # of Views/Limited/Complete: 1 View Indication: Shortness of Breath EP Interpretation: Yes Interpretation: other - Bilateral consolidations concerning for pneumonia, right worse than left Impression: Other - Bilateral pneumonia Electronically Signed by: Electronically signed by Dr. Ezra Castellanos Chest X-Ray Diagnostic Results #2: Chest X-Ray Ordered: Yes # of Views/Limited/Complete: 1 View Indication: Other - Post intubation EP Interpretation: Yes Interpretation: other - Interval intubation with satisfactory position of endotracheal tube. Bilateral pneumonia Impression: Other - Satisfactory position of endotracheal tube Electronically Signed by: Electronically signed by Dr. Ezra Castellanos (Ezra Castellanos MD) Status: unchanged (Srini Davis MD) Disposition: ADMITTED INPATIENT Condition: Critical Srini Davis MD September 17, 2019 05:05 Ezra Castellanos MD September 17, 2019 06:44
--- NOTE | 2019-09-17 05:10 | NUR ---
ED Nurse Note: pt zach from [facility] [place] sz since 349 at facility witnessed by staff. Per EMS, pt intermittent afib to ST. HR varies from 90-110. EMS gave 5mg Versed en route. Pt aao x 0, VSS elevated, ERMD aware. ERMd at bedside. Addendum: 09/17/19 at 0630 by [email or web address] ED Nurse Note: pt zach from [facility] [place] sz since 349 at facility witnessed by staff. Per EMS, pt intermittent afib to ST. HR varies from 90-110. EMS gave 5mg Versed en route. Pt aao x 0, VSS elevated, ERMD aware. ERMd at bedside. Pt has amputated left leg.
[2019-09-17] MEDS ORDERED: FERROUS SULFAT325 MG ORAL (05:11)
[2019-09-17] MEDS ORDERED: levETIRAcetam 500 MG in D5W 110 ML IV ONE (05:15)
--- NOTE | 2019-09-17 05:20 | NUR ---
ED Nurse Note: iV line initiated on left hand 20 G patent and in tact. Pt blood drawn and sent to lab. UA drawn and sent to lab. Swabs completed and sent to lab. All medications administered per ERMD. Pt temp 102.8, ERMD made aware, awaiting further orders. Pt has old pressure ulcer on medial coccyx. Addendum: 09/17/19 at 0631 by DONG ED Nurse Note: iV line initiated on left hand 20 G patent and in tact. Pt blood drawn and sent to lab. UA drawn and sent to lab. Swabs completed and sent to lab. All medications administered per ERMD. Pt temp 102.8, ERMD made aware, awaiting further orders. Pt has old pressure ulcer on medial coccyx. Pt has G tube.
[2019-09-17 05:54] LABS: HEMATOCRIT 24.1 % (37.0-47.0); HEMOGLOBIN 8.3 G/DL (12.0-16.0); MEAN CORPUSCULAR VOLUME 99 FL (80-99); PLATELET COUNT 94 K/UL (150-450); RED BLOOD COUNT 2.45 M/UL (4.20-5.40); RED CELL DISTRIBUTION WIDTH 13.2 % (11.6-14.8); WHITE BLOOD COUNT 11.1 K/UL (4.8-10.8)
[2019-09-17 06:04] LABS: APPEARANCE,URINE SLIGHTLY CLOUDY; BILIRUBIN, URINE NEGATIVE (NEGATIVE); GLUCOSE, URINE (UA) NEGATIVE (NEGATIVE); KETONES,URINE NEGATIVE (NEGATIVE); LEUKOCYTE ESTERASE ,URINE NEGATIVE (NEGATIVE); NITRITE,URINE NEGATIVE (NEGATIVE); PH,URINE 5 (4.5-8.0); PROTEIN,URINE 4+ (NEGATIVE); UROBILINOGEN,URINE NORMAL MG/DL (0.0-1.0)
[2019-09-17 06:09] LABS: ANION GAP 19 mmol/L (5-15); BLOOD UREA NITROGEN 148 mg/dL (7-18); CALCIUM 7.5 MG/DL (8.5-10.1); CARBON DIOXIDE 19 MMOL/L (21-32); CHLORIDE 115 MMOL/L (98-107); POTASSIUM 4.9 MMOL/L (3.5-5.1); SODIUM 153 MMOL/L (136-145)
[2019-09-17 06:13] LABS: COLOR,URINE YELLOW
[2019-09-17 06:19] LABS: ALANINE AMINOTRANSFERASE 106 U/L (12-78); ALBUMIN 2.8 G/DL (3.4-5.0); ALBUMIN/GLOBULIN RATIO 0.5 (1.0-2.7); ALKALINE PHOSPHATASE 94 U/L (46-116); ASPARTATE AMINO TRANSFERASE 278 U/L (15-37); BILIRUBIN,TOTAL 0.6 MG/DL (0.2-1.0)
--- NOTE | 2019-09-17 06:23 | NUR ---
ED Nurse Note: xray at bedside
[2019-09-17 06:26] LABS: CREATINE KINASE 1331 U/L (26-308)
[2019-09-17] MEDS ORDERED: Vancomycin 1.5 GM in NS 275 ML IVPB ONE (06:45)
[2019-09-17] MEDS ORDERED: Piperacillin/Tazobactam 3.375 GM in NS 110 ML IVPB ONE (06:45)
[2019-09-17] MEDS ORDERED: Acetaminophen 500mg (ES) tab ORAL ONE (06:45)
[2019-09-17] MEDS ORDERED: propofoL 1,000mg/100ml 100 ML IV ONE (07:00)
[2019-09-17] MEDS ORDERED: Rocuronium Bromide 50mg/5ml Inj IV ONE (07:00)
[2019-09-17] MEDS ORDERED: Etomidate 40mg/20ml Inj IV ONE (07:00)
--- NOTE | 2019-09-17 07:00 | NUR ---
ED Nurse Note: ERMD prepping for intubation with team. Intubation began at 0702, etomidate 20mg given first, rocuronium 100mg given second. ERMD began intubating patient at 0703, Et tube at lip 23cm. Propofol 5mcg/min initiated at 0712. vent setting ACVC 12, TV 450, FiO2 100%, Peep 10. ERMD aware. Will continue to monitor.
--- NOTE | 2019-09-17 07:20 | NUR ---
HAND-OFF: Report given to LUIS Olmedo.
--- NOTE | 2019-09-17 07:40 | NUR ---
ED Nurse Note: Received patient in bed. patient on a equipment monitor phototypesetting. see vitals flowsheet. patient has IV on the left hand 20g, patent, intact. patient has indwelling martinez draining clear yellow urine by gravity. patient is intubated orally ETT at lip 23cm. tolerating without complication.
[2019-09-17] MEDS ORDERED: propofoL 1,000mg/100ml 100 ML IV SCH ×2 (07:45→09:15)
--- NOTE | 2019-09-17 07:51 | NUR ---
ED Nurse Note: cxr is being done at bedside.
[2019-09-17] MEDS ORDERED: Albuterol/Ipratropium 3ml neb HHN PRN (09:30)
[2019-09-17] MEDS ORDERED: Miralax 17gm pkt ORAL PRN (09:30)
[2019-09-17] MEDS ORDERED: Morphine Sulfate 4mg/ml Inj (IV USE ONLY) IVP PRN (09:30)
--- NOTE | 2019-09-17 09:45 | NUR ---
ED Nurse Note: Report given to Jojo RN, endorsed all plan of care to Jojo RN.
[2019-09-17] MEDS ORDERED: Eliquis 2.5mg tablet GT SCH (10:00)
--- NOTE | 2019-09-17 10:14 | NUR ---
RADIOLOGY DEPT., TWO CHEST X-RAYS HAVE BEEN PERFORMED PRIOR TO ADMIT IN ICU.SWEETIE
--- NOTE | 2019-09-17 10:20 | NUR ---
ED Nurse Note: patient transferred to ICU on ACLS protocol. patient had no belongings. endorsed to Jojo SMITH.
--- NOTE | 2019-09-17 10:45 | NUR ---
NURSE NOTES: Received patient from ED Nurse Shara SMITH. Patient is obtunded. Sinus Tachycardia on the heart monitor, HR 100. Receiving oxygen via ET Tube 7.5 23cm at the lip line, vent settings AC 16, TV 500, FiO2 40%, PEEP 5. IV site is left hand 20g patent and intact and right hand 22g receiving Vancomycin 1.5g. Umaña catheter is intact and draining. Bed is locked, placed in lowest position, side rails up x3, bed alarm on. Will continue to monitor.
[2019-09-17] MEDS: Pantoprazole Inj IVP SCH ×2 (10:57→21:05)
--- NOTE | 2019-09-17 11:55 | NUR ---
NURSE NOTES: Patient seen and assessed by Dr. Lazcano.
--- NOTE | 2019-09-17 12:18 | Consultation ---
History of Present Illness General Date patient seen: September 17, 2019 Chief Complaint: Seizure Present Illness HPI 84 year old female with hx of CVA, Left AKA, DM, Dementia, Gtube feeding, vegetative state, detention resident brought in because of uncontrollable seizures. She was febrile in ER with a temp of 102. She was in respiratory and renal failure and got intubated by ER physician. Her CXR showed bilateral infiltrate as well. She is transferred to ICU on life support for further management. Allergies: Coded Allergies: METOCLOPRAMIDE (Verified Allergy, Unknown, 03/10/18) extrapyramidal Sx Medication History Scheduled Acetaminophen* (Tylenol Extra Strength*), 1,000 MG GT DAILY, (Reported) Allopurinol* (Allopurinol*), 200 MG GT DAILY Amlodipine Besylate (Norvasc), 10 MG GT DAILY, (Reported) Apixaban (Eliquis), 2.5 MG GT BID, (Reported) Ascorbic Acid* (Vitamin C*), 500 MG GT DAILY, (Reported) Aspirin* (Aspirin*), 81 MG GT DAILY, (Reported) Cephalexin* (Keflex*), 250 MG GT DAILY Cranberry Fruit (Cranberry), 450 MG GT DAILY, (Reported) Erickson E-Succ/Sulfisoxazole (Erythromycin-Sulfisox Susp), 50 MG GT Q6HR Ferrous Sulfate* (Ferrous Sulfate*), 325 MG ORAL DAILY, (Reported) Insulin Detemir (Levemir Flexpen), 20 UNITS SUBQ Q12HR Insulin Lispro (Humalog), 0 SUBQ Q6HR, (Reported) Lansoprazole* (Lansoprazole*), 30 MG GT BID Levetiracetam* (Levetiracetam*), 1,000 MG GT Q12HR, (Reported) Multivitamin With Minerals (Multivitamins With Minerals*), 1 TAB GT DAILY, ( Reported) Nitroglycerin (Nitroglycerin Patch), 1 PATCH TDERMAL Q24H Petrolatum,White/Lanolin (Vitamin A & D Ointment), 1 APPLIC TP DAILY, (Reported) Zinc Oxide (Skin Protectant), 1 APPLIC TP DAILY, (Reported) Scheduled PRN Acetaminophen* (Acetaminophen 325MG Tablet*), 650 MG GT Q4H PRN for Mild Pain/ Temp > 100.5, (Reported) Hydralazine Hcl* (Hydralazine Hcl*), 25 MG GT Q4H PRN Patient History Healthcare decision maker Resuscitation status Advanced Directive on File Past Medical/Surgical History Past Medical/Surgical History: (1) Osteomyelitis of ankle or foot, left, acute (2) Right hemiparesis (3) Diabetes (4) Dementia (5) Functional quadriplegia (6) G tube feedings (7) Sacral decubitus ulcer, stage III (8) Epileptic seizure, generalized (9) S/P AKA (above knee amputation) unilateral Review of Systems All Other Systems: negative except mentioned in HPI Physical Exam General Appearance: WD/WN Lines, tubes and drains: peripheral HEENT: normocephalic, atraumatic Neck: non-tender, normal alignment Respiratory/Chest: rhonchi - left, rhonchi - right Cardiovascular/Chest: normal peripheral pulses, normal rate Abdomen: normal bowel sounds, feeding tube Extremities: non-pitting, pitting Last 24 Hour Vital Signs Date Time Temp Pulse Resp B/P (MAP) Pulse Ox O2 Delivery O2 Flow Rate FiO2 09/17/19 11:18 Endotrachael Tube 09/17/19 11:06 90 13 100 09/17/19 10:20 100 12 159/46 100 Mechanical Ventilator 15.0 100 09/17/19 08:56 100 12 159/46 100 Mechanical Ventilator 15.0 100 09/17/19 08:56 12 159/46 Mechanical Ventilator 09/17/19 07:56 93 14 113/46 100 Mechanical Ventilator 09/17/19 07:56 14 113/46 Mechanical Ventilator 09/17/19 07:41 13 117/36 Mechanical Ventilator 15.0 09/17/19 07:34 92 13 117/36 100 Mechanical Ventilator 09/17/19 07:12 34 210/166 Mechanical Ventilator 100 09/17/19 07:04 90 13 100 09/17/19 05:10 102.8 107 20 150/96 100 Non-Rebreather 15.0 09/17/19 05:10 107 20 Non-Rebreather 15.0 09/17/19 05:05 98.6 107 20 150/96 (114) 100 Non-Rebreather 15.0 Laboratory Tests Test 09/17/19 05:20 09/17/19 05:44 09/17/19 06:25 09/17/19 07:43 White Blood Count 11.1 K/UL (4.8-10.8) H Red Blood Count 2.45 M/UL (4.20-5.40) L Hemoglobin 8.3 G/DL (12.0-16.0) L Hematocrit 24.1 % (37.0-47.0) L Mean Corpuscular Volume 99 FL (80-99) Mean Corpuscular Hemoglobin 33.9 PG (27.0-31.0) H Mean Corpuscular Hemoglobin Concent 34.3 G/DL (32.0-36.0) Red Cell Distribution Width 13.2 % (11.6-14.8) Platelet Count 94 K/UL (150-450) L Mean Platelet Volume 9.9 FL (6.5-10.1) Neutrophils (%) (Auto) % (45.0-75.0) Lymphocytes (%) (Auto) % (20.0-45.0) Monocytes (%) (Auto) % (1.0-10.0) Eosinophils (%) (Auto) % (0.0-3.0) Basophils (%) (Auto) % (0.0-2.0) Sodium Level 153 MMOL/L (136-145) H Potassium Level 4.9 MMOL/L (3.5-5.1) Chloride Level 115 MMOL/L (98-107) H Carbon Dioxide Level 19 MMOL/L (21-32) L Anion Gap 19 mmol/L (5-15) H Blood Urea Nitrogen 148 mg/dL (7-18) H Creatinine 6.0 MG/DL (0.55-1.30) H Estimat Glomerular Filtration Rate 8.1 mL/min (>60) Glucose Level 358 MG/DL (74-106) H Lactic Acid Level 2.90 mmol/L (0.4-2.0) H 1.80 mmol/L (0.66-2.22) Uric Acid 10.5 MG/DL (2.6-7.2) H Calcium Level 7.5 MG/DL (8.5-10.1) L Total Bilirubin 0.6 MG/DL (0.2-1.0) Aspartate Amino Transf (AST/SGOT) 278 U/L (15-37) H Alanine Aminotransferase (ALT/SGPT) 106 U/L (12-78) H Alkaline Phosphatase 94 U/L (46-116) Total Creatine Kinase 1331 U/L (26-308) H Troponin I 0.460 ng/mL (0.000-0.056) Total Protein 9.0 G/DL (6.4-8.2) H Albumin 2.8 G/DL (3.4-5.0) L Globulin 6.2 g/dL Albumin/Globulin Ratio 0.5 (1.0-2.7) L Triglycerides Level 684 MG/DL (30-150) H Urine Color Yellow Urine Appearance Slightly cloudy Urine pH 5 (4.5-8.0) Urine Specific [place] 1.015 (1.005-1.035) Urine Protein 4+ (NEGATIVE) H Urine Glucose (UA) Negative (NEGATIVE) Urine Ketones Negative (NEGATIVE) Urine Blood 4+ (NEGATIVE) H Urine Nitrite Negative (NEGATIVE) Urine Bilirubin Negative (NEGATIVE) Urine Urobilinogen Normal MG/DL (0.0-1.0) Urine Leukocyte Esterase Negative (NEGATIVE) Urine RBC 5-10 /HPF (0 - 2) H Urine WBC 0-2 /HPF (0 - 2) Urine Squamous Epithelial Cells Few /LPF (NONE/OCC) Urine Bacteria Many /HPF (NONE) H Urine Coarse Granular Casts 5-10 /LPF (NONE) H Urine Random Sodium < 20 mmol/L (20-110) L Arterial Blood pH 7.257 (7.350-7.450) Arterial Blood Partial Pressure CO2 36.0 mmHg (35.0-45.0) Arterial Blood Partial Pressure O2 55.0 mmHg (75.0-100.0) L Arterial Blood HCO3 15.7 mmol/L (22.0-26.0) *L Arterial Blood Oxygen Saturation 77.5 % (95-100) *L Arterial Blood Base Excess -10.5 (-2-2) *L Gareth Test Positive Height (Feet): 5 Height (Inches): 6.00 Weight (Pounds): 220 Medications Current Medications Medications (Trade) Dose Ordered Sig/Nancy Route PRN Reason Start Time Stop Time Status Last Admin Dose Admin Acetaminophen (Tylenol) 650 mg Q4H PRN ORAL fever 09/17/19 09:30 10/17/19 09:29 Albuterol/ Ipratropium (Albuterol/ Ipratropium) 3 ml Q4H PRN HHN Shortness of Breath 09/17/19 09:30 09/22/19 09:29 Allopurinol (Zyloprim) 200 mg DAILY GT 09/18/19 09:00 10/18/19 08:59 Amikacin Sulfate 500 mg/Dextrose 112 ml @ 112 mls/hr ONCE IV 09/17/19 13:00 09/17/19 14:00 Ertapenem 0.5 gm/ Sodium Chloride 55 ml @ 110 mls/hr Q24H IVPB 09/17/19 14:00 09/22/19 13:59 Heparin Sodium (Porcine) (Heparin 5000 units/ml) 5,000 units EVERY 12 HOURS SUBQ 09/17/19 21:00 11/01/19 20:59 Levetiracetam (Keppra) 1,000 mg Q12HR GT 09/17/19 21:00 10/17/19 20:59 Lorazepam (Ativan 2mg/ml 1ml) 2 mg Q2H PRN IV For Anxiety 09/17/19 09:30 09/24/19 09:29 Morphine Sulfate (Morphine Sulfate) 4 mg Q4H PRN IVP Severe Pain (Pain Scale 7-10) 09/17/19 09:30 09/24/19 09:29 Norepinephrine Bitartrate 4 mg/ Dextrose 254 ml @ 0 mls/hr Q24H IV 09/17/19 09:30 10/17/19 09:29 UNV Ondansetron HCl (Zofran) 4 mg Q6H PRN IVP Nausea & Vomiting 09/17/19 09:30 10/17/19 09:29 Pantoprazole (Protonix) 40 mg EVERY 12 HOURS IVP 09/17/19 10:00 10/17/19 09:59 09/17/19 10:57 Polyethylene Glycol (Miralax) 17 gm DAILYPRN PRN ORAL Constipation 09/17/19 09:30 10/17/19 09:29 Propofol 100 ml @ 0 mls/hr Q24H IV 09/17/19 07:45 09/19/19 07:44 09/17/19 07:41 Sodium Chloride 1,000 ml @ 100 mls/hr Q10H IV 09/17/19 10:00 10/17/19 09:59 09/17/19 10:57 Vancomycin HCl (Vanco rx to dose) 1 ea DAILY PRN MISC pharmacy to dose 09/17/19 10:00 10/17/19 09:59 Assessment/Plan Problem List: (1) Sepsis with acute hypoxic respiratory failure ICD Codes: A41.9 - Sepsis, unspecified organism; R65.20 - Severe sepsis without septic shock; J96.01 - Acute respiratory failure with hypoxia SNOMED: 698640922, 60921433, 493959655 (2) Healthcare-associated pneumonia ICD Codes: J18.9 - Pneumonia, unspecified organism SNOMED: 440622676 (3) Suspected 2019 novel coronavirus infection ICD Codes: Z20.828 - Contact with and (suspected) exposure to other viral communicable diseases SNOMED: 589378384 (4) Acute on chronic renal failure ICD Codes: N17.9 - Acute kidney failure, unspecified; N18.9 - Chronic kidney disease, unspecified SNOMED: 578098570 (5) Epileptic seizure, generalized ICD Codes: G40.309 - Generalized idiopathic epilepsy and epileptic syndromes, not intractable, without status epilepticus SNOMED: 24321994 (6) Anemia in CKD (chronic kidney disease) ICD Codes: N18.9 - Chronic kidney disease, unspecified; D63.1 - Anemia in chronic kidney disease SNOMED: 477714165 (7) Diabetes ICD Codes: E11.9 - Type 2 diabetes mellitus without complications SNOMED: 71244562 (8) G tube feedings ICD Codes: Z93.1 - G tube feedings SNOMED: 147418721 (9) Functional quadriplegia ICD Codes: R53.2 - Functional quadriplegia SNOMED: 118948908621728 (10) Dementia ICD Codes: F03.90 - Dementia SNOMED: 42634459 (11) S/P AKA (above knee amputation) unilateral ICD Codes: Z89.619 - Acquired absence of unspecified leg above knee SNOMED: 63698161, 59678238, 766061488 Respiratory: monitor respiratory rate, adjust FIO2, CXR, ABG Cardiac: continue pressors, continue to monitor HR/BP Renal: F/U I&O, keep IV fluid, check electrolytes, other - a few liters of NS 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 Infectious Disease: check cultures Gastrointestinal: continue feedings/current rate Endocrine: monitor blood sugar Hematologic: monitor H/H, transfuse if hgb<8.5 Neurologic: PRN Ativan, PRN Morphine, keep patient comfortable Disposition: keep in ICU Discussed with: nurses Saira Lazcano MD September 17, 2019 12:18
[2019-09-17] MEDS ORDERED: Amikacin 500 MG in D5W 110 ML IV SCH (13:00)
[2019-09-17] MEDS ORDERED: D5W IV SCH (13:00)
[2019-09-17] MEDS ORDERED: AMIKACIN IV SCH (13:00)
--- NOTE | 2019-09-17 13:44 | Consultation ---
History of Present Illness General Date patient seen: September 17, 2019 Chief Complaint: Seizure Present Illness HPI 84 y/o F with hx of CVA w/ residual R side weakness, hx of Proteus UTI 04/2019, pancreatitis 04/2019, sp L AKA, Dm2, DVT, COPD, Dementia, dysphagia s/p GT, vegetative state, non verbal, seizure disorder, [place] resident ([facility]) presented to ED on 09/17/19 with fever up to 102, respiratory distress requiring intubation in the ER. Patient had witnessed seizure by EMS and given IM Versed. Patient was also found to have renal failure. CXR showed b/ l infiltrate. Allergies: Coded Allergies: METOCLOPRAMIDE (Verified Allergy, Unknown, 03/10/18) extrapyramidal Sx Medication History Scheduled Acetaminophen* (Tylenol Extra Strength*), 1,000 MG GT DAILY, (Reported) Allopurinol* (Allopurinol*), 200 MG GT DAILY Amlodipine Besylate (Norvasc), 10 MG GT DAILY, (Reported) Apixaban (Eliquis), 2.5 MG GT BID, (Reported) Ascorbic Acid* (Vitamin C*), 500 MG GT DAILY, (Reported) Aspirin* (Aspirin*), 81 MG GT DAILY, (Reported) Cephalexin* (Keflex*), 250 MG GT DAILY Cranberry Fruit (Cranberry), 450 MG GT DAILY, (Reported) Erickson E-Succ/Sulfisoxazole (Erythromycin-Sulfisox Susp), 50 MG GT Q6HR Ferrous Sulfate* (Ferrous Sulfate*), 325 MG ORAL DAILY, (Reported) Insulin Detemir (Levemir Flexpen), 20 UNITS SUBQ Q12HR Insulin Lispro (Humalog), 0 SUBQ Q6HR, (Reported) Lansoprazole* (Lansoprazole*), 30 MG GT BID Levetiracetam* (Levetiracetam*), 1,000 MG GT Q12HR, (Reported) Multivitamin With Minerals (Multivitamins With Minerals*), 1 TAB GT DAILY, ( Reported) Nitroglycerin (Nitroglycerin Patch), 1 PATCH TDERMAL Q24H Petrolatum,White/Lanolin (Vitamin A & D Ointment), 1 APPLIC TP DAILY, (Reported) Zinc Oxide (Skin Protectant), 1 APPLIC TP DAILY, (Reported) Scheduled PRN Acetaminophen* (Acetaminophen 325MG Tablet*), 650 MG GT Q4H PRN for Mild Pain/ Temp > 100.5, (Reported) Hydralazine Hcl* (Hydralazine Hcl*), 25 MG GT Q4H PRN Patient History Healthcare decision maker Resuscitation status Advanced Directive on File Patient History Narrative PMhx: As above Shx: reviewed FMHx: non contributory Review of Systems All Other Systems: negative except mentioned in HPI Physical Exam Physical Exam Narrative General Appearance: WD/WN Lines, tubes and drains: peripheral HEENT: normocephalic, atraumatic Neck: non-tender, normal alignment Respiratory/Chest: rhonchi - left, rhonchi - right Cardiovascular/Chest: normal peripheral pulses, normal rate Abdomen: normal bowel sounds, feeding tube Extremities: non-pitting, pitting Last 24 Hour Vital Signs Date Time Temp Pulse Resp B/P (MAP) Pulse Ox O2 Delivery O2 Flow Rate FiO2 09/17/19 13:14 89 18 40 09/17/19 12:00 86 16 88/37 (54) 91 09/17/19 12:00 Mechanical Ventilator 09/17/19 11:30 93 23 96/50 (65) 88 09/17/19 11:18 40 09/17/19 11:18 Endotrachael Tube 09/17/19 11:06 90 13 100 09/17/19 11:00 90 16 66/35 (45) 100 09/17/19 10:45 97.7 100 16 94/44 (61) 91 09/17/19 10:30 100 16 100 09/17/19 10:30 100 16 100 Mechanical Ventilator 40 09/17/19 10:20 100 12 159/46 100 Mechanical Ventilator 15.0 100 09/17/19 08:56 100 12 159/46 100 Mechanical Ventilator 15.0 100 09/17/19 08:56 12 159/46 Mechanical Ventilator 09/17/19 07:56 93 14 113/46 100 Mechanical Ventilator 09/17/19 07:56 14 113/46 Mechanical Ventilator 09/17/19 07:41 13 117/36 Mechanical Ventilator 15.0 09/17/19 07:34 92 13 117/36 100 Mechanical Ventilator 09/17/19 07:12 34 210/166 Mechanical Ventilator 100 09/17/19 05:10 102.8 107 20 150/96 100 Non-Rebreather 15.0 09/17/19 05:10 107 20 Non-Rebreather 15.0 09/17/19 05:05 98.6 107 20 150/96 (114) 100 Non-Rebreather 15.0 Laboratory Tests Test 09/17/19 05:20 09/17/19 05:44 09/17/19 06:25 09/17/19 07:43 White Blood Count 11.1 K/UL (4.8-10.8) H Red Blood Count 2.45 M/UL (4.20-5.40) L Hemoglobin 8.3 G/DL (12.0-16.0) L Hematocrit 24.1 % (37.0-47.0) L Mean Corpuscular Volume 99 FL (80-99) Mean Corpuscular Hemoglobin 33.9 PG (27.0-31.0) H Mean Corpuscular Hemoglobin Concent 34.3 G/DL (32.0-36.0) Red Cell Distribution Width 13.2 % (11.6-14.8) Platelet Count 94 K/UL (150-450) L Mean Platelet Volume 9.9 FL (6.5-10.1) Neutrophils (%) (Auto) % (45.0-75.0) Lymphocytes (%) (Auto) % (20.0-45.0) Monocytes (%) (Auto) % (1.0-10.0) Eosinophils (%) (Auto) % (0.0-3.0) Basophils (%) (Auto) % (0.0-2.0) Sodium Level 153 MMOL/L (136-145) H Potassium Level 4.9 MMOL/L (3.5-5.1) Chloride Level 115 MMOL/L (98-107) H Carbon Dioxide Level 19 MMOL/L (21-32) L Anion Gap 19 mmol/L (5-15) H Blood Urea Nitrogen 148 mg/dL (7-18) H Creatinine 6.0 MG/DL (0.55-1.30) H Estimat Glomerular Filtration Rate 8.1 mL/min (>60) Glucose Level 358 MG/DL (74-106) H Lactic Acid Level 2.90 mmol/L (0.4-2.0) H 1.80 mmol/L (0.66-2.22) Uric Acid 10.5 MG/DL (2.6-7.2) H Calcium Level 7.5 MG/DL (8.5-10.1) L Total Bilirubin 0.6 MG/DL (0.2-1.0) Aspartate Amino Transf (AST/SGOT) 278 U/L (15-37) H Alanine Aminotransferase (ALT/SGPT) 106 U/L (12-78) H Alkaline Phosphatase 94 U/L (46-116) Total Creatine Kinase 1331 U/L (26-308) H Troponin I 0.460 ng/mL (0.000-0.056) Total Protein 9.0 G/DL (6.4-8.2) H Albumin 2.8 G/DL (3.4-5.0) L Globulin 6.2 g/dL Albumin/Globulin Ratio 0.5 (1.0-2.7) L Triglycerides Level 684 MG/DL (30-150) H Urine Color Yellow Urine Appearance Slightly cloudy Urine pH 5 (4.5-8.0) Urine Specific [place] 1.015 (1.005-1.035) Urine Protein 4+ (NEGATIVE) H Urine Glucose (UA) Negative (NEGATIVE) Urine Ketones Negative (NEGATIVE) Urine Blood 4+ (NEGATIVE) H Urine Nitrite Negative (NEGATIVE) Urine Bilirubin Negative (NEGATIVE) Urine Urobilinogen Normal MG/DL (0.0-1.0) Urine Leukocyte Esterase Negative (NEGATIVE) Urine RBC 5-10 /HPF (0 - 2) H Urine WBC 0-2 /HPF (0 - 2) Urine Squamous Epithelial Cells Few /LPF (NONE/OCC) Urine Bacteria Many /HPF (NONE) H Urine Coarse Granular Casts 5-10 /LPF (NONE) H Urine Random Sodium < 20 mmol/L (20-110) L Arterial Blood pH 7.257 (7.350-7.450) Arterial Blood Partial Pressure CO2 36.0 mmHg (35.0-45.0) Arterial Blood Partial Pressure O2 55.0 mmHg (75.0-100.0) L Arterial Blood HCO3 15.7 mmol/L (22.0-26.0) *L Arterial Blood Oxygen Saturation 77.5 % (95-100) *L Arterial Blood Base Excess -10.5 (-2-2) *L Gareth Test Positive Test 09/17/19 12:41 Arterial Blood pH 7.260 (7.350-7.450) Arterial Blood Partial Pressure CO2 34.5 mmHg (35.0-45.0) L Arterial Blood Partial Pressure O2 56.0 mmHg (75.0-100.0) L Arterial Blood HCO3 15.2 mmol/L (22.0-26.0) *L Arterial Blood Oxygen Saturation 83.3 % (95-100) *L Arterial Blood Base Excess -10.9 (-2-2) *L Gareth Test Positive Height (Feet): 5 Height (Inches): 6.00 Weight (Pounds): 220 Medications Current Medications Medications (Trade) Dose Ordered Sig/Nancy Route PRN Reason Start Time Stop Time Status Last Admin Dose Admin Acetaminophen (Tylenol) 650 mg Q4H PRN ORAL fever 09/17/19 09:30 10/17/19 09:29 Albuterol/ Ipratropium (Albuterol/ Ipratropium) 3 ml Q4H PRN HHN Shortness of Breath 09/17/19 09:30 09/22/19 09:29 Allopurinol (Zyloprim) 200 mg DAILY GT 09/18/19 09:00 10/18/19 08:59 Amikacin Sulfate 500 mg/Dextrose 112 ml @ 112 mls/hr ONCE IV 09/17/19 13:00 09/17/19 14:00 Dextrose (Dextrose 50%) 25 ml Q30M PRN IV Hypoglycemia 09/17/19 13:15 12/16/19 13:14 Dextrose (Dextrose 50%) 50 ml Q30M PRN IV Hypoglycemia 09/17/19 13:15 12/16/19 13:14 Ertapenem 0.5 gm/ Sodium Chloride 55 ml @ 110 mls/hr Q24H IVPB 09/17/19 14:00 09/22/19 13:59 Heparin Sodium (Porcine) (Heparin 5000 units/ml) 5,000 units EVERY 12 HOURS SUBQ 09/17/19 21:00 11/01/19 20:59 Insulin Aspart (NovoLOG) BEFORE MEALS AND HS SUBQ 09/17/19 16:30 12/16/19 16:29 Levetiracetam (Keppra) 1,000 mg Q12HR GT 09/17/19 21:00 10/17/19 20:59 Lorazepam (Ativan 2mg/ml 1ml) 2 mg Q2H PRN IV For Anxiety 09/17/19 09:30 09/24/19 09:29 Morphine Sulfate (Morphine Sulfate) 4 mg Q4H PRN IVP Severe Pain (Pain Scale 7-10) 09/17/19 09:30 09/24/19 09:29 Norepinephrine Bitartrate 4 mg/ Dextrose 254 ml @ 0 mls/hr Q24H IV 09/17/19 09:30 10/17/19 09:29 UNV Ondansetron HCl (Zofran) 4 mg Q6H PRN IVP Nausea & Vomiting 09/17/19 09:30 10/17/19 09:29 Pantoprazole (Protonix) 40 mg EVERY 12 HOURS IVP 09/17/19 10:00 10/17/19 09:59 09/17/19 10:57 Polyethylene Glycol (Miralax) 17 gm DAILYPRN PRN ORAL Constipation 09/17/19 09:30 10/17/19 09:29 Propofol 100 ml @ 0 mls/hr Q24H IV 09/17/19 07:45 09/19/19 07:44 09/17/19 07:41 Sodium Chloride 1,000 ml @ 100 mls/hr Q10H IV 09/17/19 10:00 10/17/19 09:59 09/17/19 10:57 Vancomycin HCl (Vanco rx to dose) 1 ea DAILY PRN MISC pharmacy to dose 09/17/19 10:00 10/17/19 09:59 Assessment/Plan Assessment/Plan: Abx: IV Vancomycin 09/16- IV Amikacin 09/16- Ertapenem 09/16- Zozyn x1 09/16 Assessment: Septic Shock Pneumonia- high suspicion for COVID19 (resident of [place] with large outbreak) Acute respiratory failure s/p intubation 09/16 -CXR: (per ER report, official report pending): Bilateral consolidations concerning for pneumonia, right worse than left -sp cx p Fever leukocytosis -u/a neg -Bcx p Seizure (witnessed by EMS) Anemia/Thrombocytopenia OREN on CKD Elevated LFTs hx of Proteus UTI 04/2019 - -u/a wbc 40-60, nit neg, leuk +2; ucx 30-40k P mirabilis (I Levo; R amp , macrobid, bactrim, cipro; otherwise S) CVA w/ residual R side weakness pancreatitis 04/2019 sp L AKA Dm2 DVT COPD Dementia dysphagia s/p GT vegetative state non verbal seizure disorder [place] ([facility]) Plan: -Continue empiric IV Vancomycin #1 -Switch empiric Ertapenem #1 to Meropenem -Dc empiric IV Amikacin given renal failure -f/u cx -Monitor CBC/CMP, temperatures -COVID19 isolation and testing -ETT/GT/ICU care -aspiration precautions -Trend CXR and inflammatory markers Thank you for consulting [facility]. Will contiue to follow along with you. Discussed with LUSI. Nkechi Stevenson M.D. September 17, 2019 13:44
--- NOTE | 2019-09-17 13:50 | Consultation ---
Consult Note Consult Note Ms. Casandra Downing is under my care interview [facility] however her primary physician is Dr Lazcano I am seeing the patient for worsening renal failure. Patient is an 84-year-old female brought in by EMS after recent seizure. Previous history of seizure disorder currently on Keppra. Patient was sent in from [facility]. Had witnessed seizure and had been given Versed IM 5 mg by paramedics. Seizure subsequently resolved. 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 Patient seen, examined And data reviewed . 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
[2019-09-17] MEDS ORDERED: Ertapenem 0.5gm in NS 55ml IVPB SCH (14:00)
[2019-09-17] MEDS: Midodrine 10mg tab GT SCH ×2 (14:30→21:53)
[2019-09-17] MEDS ORDERED: NovoLOG Insulin Flexpen SUBQ SCH (16:30)
[2019-09-17] MEDS: Meropenem 500 MG in NS 55 ML IVPB SCH (16:37)
[2019-09-17] MEDS: NovoLOG Insulin Flexpen SUBQ SCH ×2 (16:39→21:00)
[2019-09-17 16:58] LABS: APPEARANCE,URINE CLEAR; BILIRUBIN, URINE NEGATIVE (NEGATIVE); COLOR,URINE PALE YELLOW; GLUCOSE, URINE (UA) NEGATIVE (NEGATIVE); KETONES,URINE NEGATIVE (NEGATIVE); LEUKOCYTE ESTERASE ,URINE NEGATIVE (NEGATIVE); NITRITE,URINE NEGATIVE (NEGATIVE); PH,URINE 6 (4.5-8.0); PROTEIN,URINE 4+ (NEGATIVE); UROBILINOGEN,URINE NORMAL MG/DL (0.0-1.0)
--- NOTE | 2019-09-17 16:58 | History & Physical ---
History and Physical History & Physicial Dictated for Int Med-Dr Woodson no. [id number]. Full code; ICU Terence Vigil MD September 17, 2019 16:58
--- NOTE | 2019-09-17 17:28 | NUR ---
NURSE NOTES: Patient turned and repositioned, no signs of acute distress.
--- NOTE | 2019-09-17 17:34 | NUR ---
NURSE NOTES:WOUND CARE NOTES:Pt presented on admission with L AKA ,Multiple pressure injuries.Sacral Hyperpigmentation with scar from historical pressure injury. Within area of hyperpigmentation is a small open area at sacrococcygeal area. Base of wound is moist and viable. Multiple area of partial thickness shearing noted to R and L gluteal clefts.surrounding areas of R and L buttocks denuded. Unstageable pressure injury R hallux. Base of wound is 75% necrotic , 25% kaylah. An area of hyperpigmentation at base of wound. Hyperpigmentation with scarring noted to R heel. Tx.Plan: Apply Moisture Barrier Paste to Sacrum,R and L Buttocks. Cover Sacrum with Optifoam drsg. Change every 3 days and prn. Cleanse wound R Hallux with Saline. Apply TheraHoney. Cover with Optifoam drsg. Change every 3 days and prn. Apply Cavilon Skin Barrier to R heel. Cover with Optifoam drsg. Change every 7 days and prn. Reposition at least every 2hours or as tolerated. Off -load R heel with Pillow. APM/KALE Mattress overlay.
--- NOTE | 2019-09-17 19:22 | NUR ---
HAND-OFF: Report given to Anay SMITH.
--- NOTE | 2019-09-17 19:58 | Cardiology Progress Note ---
Assessment/Plan Assessment/Plan [id number] Objective Last 24 Hour Vital Signs Date Time Temp Pulse Resp B/P (MAP) Pulse Ox O2 Delivery O2 Flow Rate FiO2 09/17/19 19:29 112 26 100 09/17/19 19:00 102 16 85/34 (51) 98 09/17/19 18:00 106 24 110/79 (89) 96 09/17/19 17:00 102 24 100/49 (66) 98 09/17/19 16:00 97.5 103 18 113/99 (104) 100 09/17/19 16:00 102 09/17/19 16:00 Mechanical Ventilator 09/17/19 15:30 113/99 09/17/19 15:01 105 23 100 09/17/19 15:00 102 24 109/59 (76) 84 09/17/19 14:45 100 23 124/99 (107) 85 09/17/19 14:30 100 23 114/41 (65) 86 09/17/19 14:00 100 19 151/137 (142) 83 09/17/19 13:14 89 18 40 09/17/19 13:00 100 17 141/91 (108) 91 09/17/19 12:00 97.8 86 16 88/37 (54) 91 09/17/19 12:00 100 09/17/19 12:00 Mechanical Ventilator 09/17/19 11:30 93 23 96/50 (65) 88 09/17/19 11:18 40 09/17/19 11:18 Endotrachael Tube 09/17/19 11:06 90 13 100 09/17/19 11:00 90 16 66/35 (45) 100 09/17/19 10:45 97.7 09/17/19 10:45 97.7 100 16 94/44 (61) 91 09/17/19 10:30 100 16 100 09/17/19 10:30 100 16 100 Mechanical Ventilator 40 09/17/19 10:20 100 12 159/46 100 Mechanical Ventilator 15.0 100 09/17/19 08:56 100 12 159/46 100 Mechanical Ventilator 15.0 100 09/17/19 08:56 12 159/46 Mechanical Ventilator 09/17/19 07:56 93 14 113/46 100 Mechanical Ventilator 09/17/19 07:56 14 113/46 Mechanical Ventilator 09/17/19 07:41 13 117/36 Mechanical Ventilator 15.0 09/17/19 07:34 92 13 117/36 100 Mechanical Ventilator 09/17/19 07:12 34 210/166 Mechanical Ventilator 100 09/17/19 05:10 102.8 107 20 150/96 100 Non-Rebreather 15.0 09/17/19 05:10 107 20 Non-Rebreather 15.0 09/17/19 05:05 98.6 107 20 150/96 (114) 100 Non-Rebreather 15.0 Laboratory Tests Test 09/17/19 05:20 09/17/19 05:44 09/17/19 06:25 09/17/19 07:43 White Blood Count 11.1 K/UL (4.8-10.8) H Red Blood Count 2.45 M/UL (4.20-5.40) L Hemoglobin 8.3 G/DL (12.0-16.0) L Hematocrit 24.1 % (37.0-47.0) L Mean Corpuscular Volume 99 FL (80-99) Mean Corpuscular Hemoglobin 33.9 PG (27.0-31.0) H Mean Corpuscular Hemoglobin Concent 34.3 G/DL (32.0-36.0) Red Cell Distribution Width 13.2 % (11.6-14.8) Platelet Count 94 K/UL (150-450) L Mean Platelet Volume 9.9 FL (6.5-10.1) Neutrophils (%) (Auto) % (45.0-75.0) Lymphocytes (%) (Auto) % (20.0-45.0) Monocytes (%) (Auto) % (1.0-10.0) Eosinophils (%) (Auto) % (0.0-3.0) Basophils (%) (Auto) % (0.0-2.0) Sodium Level 153 MMOL/L (136-145) H Potassium Level 4.9 MMOL/L (3.5-5.1) Chloride Level 115 MMOL/L (98-107) H Carbon Dioxide Level 19 MMOL/L (21-32) L Anion Gap 19 mmol/L (5-15) H Blood Urea Nitrogen 148 mg/dL (7-18) H Creatinine 6.0 MG/DL (0.55-1.30) H Estimat Glomerular Filtration Rate 8.1 mL/min (>60) Glucose Level 358 MG/DL (74-106) H Lactic Acid Level 2.90 mmol/L (0.4-2.0) H 1.80 mmol/L (0.66-2.22) Uric Acid 10.5 MG/DL (2.6-7.2) H Calcium Level 7.5 MG/DL (8.5-10.1) L Total Bilirubin 0.6 MG/DL (0.2-1.0) Aspartate Amino Transf (AST/SGOT) 278 U/L (15-37) H Alanine Aminotransferase (ALT/SGPT) 106 U/L (12-78) H Alkaline Phosphatase 94 U/L (46-116) Total Creatine Kinase 1331 U/L (26-308) H Troponin I 0.460 ng/mL (0.000-0.056) Total Protein 9.0 G/DL (6.4-8.2) H Albumin 2.8 G/DL (3.4-5.0) L Globulin 6.2 g/dL Albumin/Globulin Ratio 0.5 (1.0-2.7) L Triglycerides Level 684 MG/DL (30-150) H Urine Color Yellow Urine Appearance Slightly cloudy Urine pH 5 (4.5-8.0) Urine Specific [place] 1.015 (1.005-1.035) Urine Protein 4+ (NEGATIVE) H Urine Glucose (UA) Negative (NEGATIVE) Urine Ketones Negative (NEGATIVE) Urine Blood 4+ (NEGATIVE) H Urine Nitrite Negative (NEGATIVE) Urine Bilirubin Negative (NEGATIVE) Urine Urobilinogen Normal MG/DL (0.0-1.0) Urine Leukocyte Esterase Negative (NEGATIVE) Urine RBC 5-10 /HPF (0 - 2) H Urine WBC 0-2 /HPF (0 - 2) Urine Squamous Epithelial Cells Few /LPF (NONE/OCC) Urine Bacteria Many /HPF (NONE) H Urine Coarse Granular Casts 5-10 /LPF (NONE) H Urine Random Sodium < 20 mmol/L (20-110) L Arterial Blood pH 7.257 (7.350-7.450) Arterial Blood Partial Pressure CO2 36.0 mmHg (35.0-45.0) Arterial Blood Partial Pressure O2 55.0 mmHg (75.0-100.0) L Arterial Blood HCO3 15.7 mmol/L (22.0-26.0) *L Arterial Blood Oxygen Saturation 77.5 % (95-100) *L Arterial Blood Base Excess -10.5 (-2-2) *L Gareth Test Positive Test 09/17/19 12:41 09/17/19 16:00 Arterial Blood pH 7.260 (7.350-7.450) Arterial Blood Partial Pressure CO2 34.5 mmHg (35.0-45.0) L Arterial Blood Partial Pressure O2 56.0 mmHg (75.0-100.0) L Arterial Blood HCO3 15.2 mmol/L (22.0-26.0) *L Arterial Blood Oxygen Saturation 83.3 % (95-100) *L Arterial Blood Base Excess -10.9 (-2-2) *L Gareth Test Positive Urine Color Pale yellow Urine Appearance Clear Urine pH 6 (4.5-8.0) Urine Specific [place] 1.010 (1.005-1.035) Urine Protein 4+ (NEGATIVE) H Urine Glucose (UA) Negative (NEGATIVE) Urine Ketones Negative (NEGATIVE) Urine Blood 5+ (NEGATIVE) H Urine Nitrite Negative (NEGATIVE) Urine Bilirubin Negative (NEGATIVE) Urine Urobilinogen Normal MG/DL (0.0-1.0) Urine Leukocyte Esterase Negative (NEGATIVE) Urine RBC 2-4 /HPF (0 - 2) H Urine WBC 0-2 /HPF (0 - 2) Urine Squamous Epithelial Cells Few /LPF (NONE/OCC) Urine Bacteria Many /HPF (NONE) H Urine Eosinophils None seen (NONE SEEN) Urine Random Sodium 59 mmol/L (20-110) Urine Potassium Timed 46 mmol/L (12-62) Mandeep Grimes MD September 17, 2019 19:58
--- NOTE | 2019-09-17 20:07 | NUR ---
NURSE NOTES: received report from sharona rn pt orally intubated-vent with o2 sat 97 % no acute resp distress pt obtunded open eyes touch does not follows command iv infusing well site good tolerating tube feeding no residual reposition and suction dr miranda in and seen pt
[2019-09-17] MEDS: levETIRAcetam 500mg/5ml Liquid GT SCH (21:04)
[2019-09-17] MEDS: Heparin 5000 units/ml inj SUBQ SCH (21:06)
--- NOTE | 2019-09-17 22:00 | NUR ---
NURSE NOTES: reposition and suction
--- NOTE | 2019-09-17 23:15 | History and Physical Report ---
DATE OF ADMISSION: 09/17/2019 CHIEF COMPLAINT: Patient is an 84-year-old female, who presents with a chief complaint of witnessed seizure. HISTORY OF PRESENT ILLNESS: Patient is a resident of [facility]. Patient had a witnessed seizure earlier today. Patient was transferred to [facility] emergency room for evaluation. While in the emergency room, patient began to have respiratory distress. Patient was emergently intubated in the emergency room. Patient is admitted to the intensive care unit with respiratory failure and pneumonia. REVIEW OF SYSTEMS: Unable to assess secondary to patient's mental status. PAST MEDICAL HISTORY: Significant for: 1. Hypertension. 2. Type 2 diabetes. 3. Seizure disorder. PAST SURGICAL HISTORY: Significant for: 1. 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 2. G-tube placement. CURRENT MEDICATIONS: 1. Amlodipine 10 mg 1 tablet p.o. daily. 2. Apixaban 2.5 mg per G-tube twice daily. 3. Iron sulfate 330 mg per G-tube daily. 4. Humalog lispro sliding scale. 5. Prevacid 30 mg p.o. daily. 6. Levemir 20 units subcutaneously twice daily. 7. Keppra 1000 mg per G-tube twice daily. 8. Multivitamin p.o. daily. ALLERGIES: To Reglan. SOCIAL HISTORY: Patient is a . Patient denies tobacco or alcohol use. PHYSICAL EXAMINATION: VITAL SIGNS: Temperature 97.7, respirations 16, pulse 100, blood pressure 94/44. GENERAL: Patient is well-nourished female, who is intubated and sedated. HEENT: Eyes, pupils are equal and responsive to light and accommodation. Extraocular movements are intact. NECK: Supple without lymphadenopathy. CHEST: Coarse breath sounds bilaterally without wheezes or rales. CARDIOVASCULAR: Regular rhythm and rate. S1, S2 normal without murmurs, rubs, or gallops. ABDOMEN: Soft, nontender, nondistended. Positive bowel sounds. No evidence of hepatosplenomegaly. Currently, no rebound or guarding noted. RECTAL/GENITAL: Not performed. NEUROLOGICAL: Unable to assess. LABORATORY STUDIES: WBC 11.1, hemoglobin 8.3, hematocrit 24.1, platelets 94,000. Sodium 153, potassium 4.9, chloride 115, CO2 19, BUN 148, creatinine 6.0, glucose 358. Total CPK 1331. Troponin elevated at 0.460. Chest x-ray was reported as right middle and right upper lobe consolidation consistent with pneumonia. ASSESSMENT: This is an 84-year-old female. 1. Respiratory failure. 2. Right-sided pneumonia. 3. Seizure disorder. 4. Renal failure. 5. Hypertension. 6. Diabetes type 2. 7. Elevated troponin. TREATMENT: 1. Respiratory failure/right-sided pneumonia. A Pulmonary consultation has been obtained with Dr. Saira Lazcano. Patient is currently intubated. An Infectious Disease consultation has been obtained with Dr. Stevenson. Patient is currently on meropenem per Infectious Disease. We will follow recommendations of Infectious Disease. 2. Renal failure. A Nephrology consultation has been obtained with Dr. Orozco. We will follow recommendations of Nephrology. 3. Seizure disorder with witnessed seizure. Continue Keppra as above. A Keppra level is pending. 4. Hypertension. Patient is currently hypotensive and possibly septic. 5. Diabetes type 2. A NovoLog sliding scale has been instituted. 6. Elevated troponin. A Cardiology consultation has been obtained with Dr. Mandeep Grimes. Elevated troponin may be secondary to renal failure versus non-ST elevated myocardial infarction. Terence Vigil M.D. DR: ALEX JOB#: [id number] CC: NIMCO
[2019-09-17] MEDS ORDERED: Ertapenem 1 GM in NS 55 ML IV SCH (23:45)
[2019-09-17] MEDS ORDERED: Vancomycin 1 GM in D5W 275 ML IV SCH (23:45)
[2019-09-18] VITALS (51 sets, daily range): BP systolic 64–131; BP diastolic 30–91
--- NOTE | 2019-09-18 | NUR ---
NURSE NOTES: hr 120-134 sr-a-fib
--- NOTE | 2019-09-18 02:00 | NUR ---
NURSE NOTES: reposition and suction tolerating tube feeding no-residual
--- NOTE | 2019-09-18 04:00 | NUR ---
NURSE NOTES: complete bed bath oral care and back care
--- NOTE | 2019-09-18 05:30 | Consultation ---
DATE OF CONSULTATION: 09/17/2019 CARDIOLOGY CONSULTATION CONSULTING PHYSICIAN: Mandeep Grimes MD. REFERRING PHYSICIAN: Saira Lazcano MD. REASON FOR REFERRAL: Abnormal cardiac enzymes. HISTORY OF PRESENT ILLNESS: This is a very unfortunate elderly female, who is not able to provide any meaningful history. Patient lives in a convalescent facility and according to the data, she was transferred by EMS because of her recent seizure. She has a previous history of seizure disorder and is on Keppra. The seizure was apparently witnessed and has been given some Versed by paramedics and the seizure subsequently resolved. The patient was admitted to the intensive care unit and is on a mechanical ventilator. PAST MEDICAL HISTORY: Positive for history of sepsis, pancreatitis, chronic renal insufficiency, gastroparesis, diabetes mellitus, Proteus UTI, seizure disorder, dementia, acute on chronic encephalopathy, history of deep venous thrombosis, osteomyelitis, status post above-knee amputation, functional quadriplegia, cholelithiasis, peripheral vascular disease, unstageable pressure ulcers in the right hallux, history of hemiparesis, G-tube feedings, GI bleed, bacteremia as well. ALLERGIES: Metoclopramide. SOCIAL HISTORY: Patient lives in a convalescent facility. Does not smoke or drink at the present time. REVIEW OF SYSTEMS: Unable to obtain. PHYSICAL EXAMINATION: GENERAL: Shows to be elderly female, on mechanical ventilator being suctioned by the respiratory therapist. VITAL SIGNS: Blood pressure at the present time is 136/94, but has been as low as in 70s, heart rate is 110 right now. She is at the present time is afebrile, but she has had a fever of 102.8 earlier today. LABORATORY DATA: White count 11.2, hemoglobin 8.3, and platelet count of 94,000. PH is 7.26, pCO2 35, pO2 of 55, and bicarbonate of 15 with 82% saturation documented earlier today. Chemistries, lactic acid 2.9 1.8. Uric acid of 10.5. Troponin of 0.46. Triglycerides of 684 with prior levels as low as 161 in April 2019. Sodium 153, potassium 4.9 , bicarb of 19, BUN of 148, and a creatinine of 6.0. BUN was 72 and creatinine 2.5 back in April 2019. Calcium is 7.5. AST of 78, ALT of 106, alkaline phosphatase was 94. CPK of 1331 and albumin of 2.8 with a total protein of 9. Electrocardiogram, normal sinus rhythm, normal QRS axis, and no significant ST or T-wave abnormalities. Chest x-ray showed bilateral consolidation concerning for pneumonia. ASSESSMENT AND PLAN: 1. Respiratory failure. 2. Pneumonia. 3. History of seizure disorder. 4. Hypernatremia. 5. Acute on chronic renal failure. 6. History of deep venous thrombosis. 7. Diabetes mellitus. 8. Functional quadriplegia. This patient has been seen in cardiac consultation. The patient's cardiac enzymes are minimally abnormal likely secondary acute renal failure and decreased clearance. EKG does not show any significant abnormalities. The patient has had an echocardiogram, preliminary report of which indicated technically difficult study with poor acoustic window and poor visualized cardiac structure. IVC was estimated at 1.7. I think there should be continued treatment for underlying infectious etiology, one of which includes COVID-19 in addition to the normal bacterial infection. Infectious Disease is following the patient. Dr. Lazcano is following the patient in Pulmonary consultation as well. IV hydration per Dr. Orozco. Vasopressors as become necessary for control of blood pressure. The patient lacks central line to administer vasopressors at this time pending placement. Mandeep Grimes M.D. DR: AMANDA JOB#: [id number] CC:
--- NOTE | 2019-09-18 06:00 | NUR ---
NURSE NOTES: pt obtunded orally intubated o2 sat 95 bs 116 no coverage
[2019-09-18] MEDS: Midodrine 10mg tab GT SCH ×3 (06:09→22:00)
[2019-09-18] MEDS: NovoLOG Insulin Flexpen SUBQ SCH ×4 (06:10→23:55)
--- NOTE | 2019-09-18 07:22 | NUR ---
HAND-OFF: Report given to ankit abreu rn using sbar.
--- NOTE | 2019-09-18 07:23 | NUR ---
NURSE NOTES: Report received from LUIS Cueva. Pt is sleeping in bed. Lethargic and respond to pain. Non-verbal and not able to follow commands. Pt can be impulsive at times and is on bilateral soft wrist restraints. ST on watershed program manager. ETT 7.5/23cm at lip line. AC 16, TV 700, [id number]%, P 5. GT in place receiving Glu 1.5 at 10cc/hr. No residual noted. Umaña in place draining to gravity. IV to left hand G20 and right hand G22 patent and asymptomatic. Pt is on 1/2NS at 100cc/hr. Bed in lowest position. Side rails up x3. Will resume plan fo care.
[2019-09-18 07:36] LABS: ALANINE AMINOTRANSFERASE 75 U/L (12-78); ALBUMIN 2.1 G/DL (3.4-5.0); ALKALINE PHOSPHATASE 59 U/L (46-116); ASPARTATE AMINO TRANSFERASE 206 U/L (15-37); BILIRUBIN,DIRECT 0.2 MG/DL (0.0-0.3); BILIRUBIN,TOTAL 0.4 MG/DL (0.2-1.0)
[2019-09-18 07:46] LABS: ALANINE AMINOTRANSFERASE 64 U/L (12-78); ALBUMIN/GLOBULIN RATIO 0.4 (1.0-2.7); ALKALINE PHOSPHATASE 61 U/L (46-116); ANION GAP 22 mmol/L (5-15); ASPARTATE AMINO TRANSFERASE 204 U/L (15-37); BILIRUBIN,TOTAL 0.5 MG/DL (0.2-1.0); BLOOD UREA NITROGEN 126 mg/dL (7-18); CALCIUM 6.7 MG/DL (8.5-10.1); CARBON DIOXIDE 14 MMOL/L (21-32); CHLORIDE 118 MMOL/L (98-107); CHOLESTEROL 101 MG/DL (< 200); CREATININE 5.9 MG/DL (0.55-1.30); GAMMA GLUTAMYL TRANSPEPTIDASE 35 U/L (5-85); HDL CHOLESTEROL 15 MG/DL (40-60); POTASSIUM 4.5 MMOL/L (3.5-5.1); SODIUM 154 MMOL/L (136-145); TRIGLYCERIDES 422 MG/DL (30-150)
[2019-09-18 07:48] LABS: INR 1.1 (0.9-1.1)
[2019-09-18 08:15] LABS: % IRON SATURATION 22 % (15-50); IRON 25 ug/dL (50-175); TOTAL IRON BINDING CAPACITY 115 ug/dL (250-450)
--- NOTE | 2019-09-18 08:36 | NUR ---
NURSE NOTES: Notified Dr Lazcano regarding ABG result and current O2 sat 92-94%. No new orders.
[2019-09-18] MEDS: levETIRAcetam 500mg/5ml Liquid GT SCH ×2 (08:48→20:36)
[2019-09-18] MEDS: Pantoprazole Inj IVP SCH ×2 (08:48→20:36)
[2019-09-18] MEDS: Allopurinol 100mg Tab GT SCH (08:48)
[2019-09-18 08:53] LABS: HEMATOCRIT 18.6 % (37.0-47.0); MEAN CORPUSCULAR VOLUME 94 FL (80-99); PLATELET COUNT 60 K/UL (150-450); RED BLOOD COUNT 1.98 M/UL (4.20-5.40); RED CELL DISTRIBUTION WIDTH 12.5 % (11.6-14.8); WHITE BLOOD COUNT 4.1 K/UL (4.8-10.8)
[2019-09-18 08:55] LABS: HEMOGLOBIN 6.2 G/DL (12.0-16.0)
--- NOTE | 2019-09-18 08:56 | NUR ---
RD ASSESSMENT & RECOMMENDATIONS SEE CARE ACTIVITY FOR COMPLETE ASSESSMENT DAILY ESTIMATED NEEDS: Needs based on Critical care, ARF, DM, wound (abw 55kg) 22-28 kcals/kg 0413-8634 total kcals 0.6-1.0 (increase w/ renal fxn improvement) g protein/kg 33-55 g total protein 25-30 mL/kg 8723-5289 total fluid mLs NUTRITION DIAGNOSIS: 1) Swallowing difficulty R/T dysphagia as evidenced by pt is PEG dep, s/p oral intubation. 2) Altered nutrition related lab values R/T ARF as evidenced by elev Na (154), elev BUN (148->126), elev creat (6.0-> 5.9). elev Na (154) CURRENT TF:Nepro @ 10ml/hr x 24 hrs ENTERAL NUTRITION RECOMMENDATIONS: Nepro @ 30ml/hr x 24 hrs to provide 720ml, 1296kcal, 58g prot, 523ml free water * W/ hemodynamic stability, increase goal rate to 30ml/hr x 24 hrs * Advance 10ml q 4-6 hrs as tolerated to goal. * HOB over 30 degrees/ H2O flush per MD ADDITIONAL RECOMMENDATIONS: 1) Per SNF: HT=64", DF=621 lbs (September 2019 wt) Rec recalibrated bedscale wt 2) Monitor renal fxn, for renal fxn improvement, need to increase est needs 3) Wound healing: add Neprhovite x 1 Damian 1pkt BID via PEG 4) Monitor hemodynamic stability: not on pressor support at this time .
--- NOTE | 2019-09-18 08:59 | NUR ---
RADIOLOGY DEPT., CHEST X-RAY DONE.-P.DYE
[2019-09-18] MEDS ORDERED: Pantoprazole Inj IV SCH (09:00)
[2019-09-18] MEDS: Heparin 5000 units/ml inj SUBQ SCH ×2 (09:00→20:38)
--- NOTE | 2019-09-18 10:09 | NUR ---
NURSE NOTES: Dr Orozco here to see the patient. Updated him with pt's current condition including low Hgb 6.2. Orders for 2 units of pRBC received, noted, and carried out.
[2019-09-18 10:20] LABS: FERRITIN > 2000 NG/ML (8-388)
--- NOTE | 2019-09-18 11:00 | NUR ---
NURSE NOTES: Consent received from niece/conservator for blood transfusion. Will proceed the order.
--- NOTE | 2019-09-18 11:02 | Infectious Diseases Prog Note ---
Assessment/Plan Assessment/Plan Assessment: Septic Shock- off pressors now Pneumonia- high suspicion for COVID19 (resident of [place] with large outbreak) Acute respiratory failure s/p intubation 09/16- -CXR: (per ER report, official report pending): Bilateral consolidations concerning for pneumonia, right worse than left -sp cx p Fever leukocytosis> leukopenia -u/a neg; ucx >100k alpha hemolytic strep (likely contaminant); repeat ucx NTD -Bcx NTD 09/16 Cdiff neg Seizure (witnessed by EMS) Anemia/Thrombocytopenia; worsening OREN on CKD Elevated LFTs hx of Proteus UTI 04/2019 - -u/a wbc 40-60, nit neg, leuk +2; ucx 30-40k P mirabilis (I Levo; R amp , macrobid, bactrim, cipro; otherwise S) CVA w/ residual R side weakness pancreatitis 04/2019 sp L AKA Dm2 DVT COPD Dementia dysphagia s/p GT vegetative state non verbal seizure disorder [place] resident ([facility]) Plan: -Continue empiric IV Vancomycin #2 and Meropenem #2 pending cultures -09/16 IV Amikacin #1, Ertapenem #1, Zosyn x1 -f/u cx -Monitor CBC/CMP, temperatures -COVID19 isolation and testing -ETT/GT/ICU care -aspiration precautions -Trend CXR and inflammatory markers Thank you for consulting [facility]. Will contiue to follow along with you. Discussed with RN. Subjective Allergies: Coded Allergies: METOCLOPRAMIDE (Verified Allergy, Unknown, 03/10/18) extrapyramidal Sx Subjective Tm 100.9 FIo2 increase to 100% pancytopenia, Hgb to 6.2 Objective Vital Signs Last 24 Hour Vital Signs Date Time Temp Pulse Resp B/P (MAP) Pulse Ox O2 Delivery O2 Flow Rate FiO2 09/18/19 10:00 119 20 124/53 (76) 91 09/18/19 09:00 100.9 123 20 103/50 (67) 92 09/18/19 08:00 123 21 104/35 (58) 91 09/18/19 07:20 124 19 100 09/18/19 07:00 124 19 115/37 (63) 91 09/18/19 06:30 126 20 111/52 (71) 93 09/18/19 06:30 126 20 5/15/20 06:00 124 19 88/36 (53) 90 09/18/19 05:30 126 32 102/50 (67) 95 09/18/19 05:24 125 20 100 09/18/19 05:00 126 24 110/44 (66) 94 09/18/19 04:30 129 30 123/44 (70) 100 09/18/19 04:00 124 09/18/19 04:00 98.6 126 20 112/46 (68) 100 09/18/19 04:00 Mechanical Ventilator 09/18/19 03:30 126 22 117/71 (86) 100 09/18/19 03:01 122 20 100 09/18/19 03:00 125 19 100/46 (64) 91 09/18/19 02:30 123 19 105/38 (60) 90 09/18/19 02:00 123 21 84/47 (59) 91 09/18/19 01:30 123 24 126/50 (75) 91 09/18/19 01:00 118 20 131/91 (104) 94 09/18/19 00:52 125 19 100 09/18/19 00:30 120 21 118/65 (82) 91 09/18/19 00:00 Mechanical Ventilator 09/18/19 00:00 98.6 119 21 104/84 (91) 95 09/18/19 00:00 113 09/17/19 23:30 113 19 108/42 (64) 93 09/17/19 23:00 112 17 87/51 (63) 95 09/17/19 22:41 109 21 100 09/17/19 22:30 115 23 123/95 (104) 94 09/17/19 22:00 109 17 95/49 (64) 99 09/17/19 21:30 113 21 96/75 (82) 96 09/17/19 21:00 113 18 92/62 (72) 94 09/17/19 20:53 105 24 100 09/17/19 20:30 110 17 94/39 (57) 96 09/17/19 20:00 104 09/17/19 20:00 98.5 108 19 117/98 (104) 95 09/17/19 20:00 Mechanical Ventilator 09/17/19 19:29 112 26 100 09/17/19 19:00 102 16 85/34 (51) 98 09/17/19 18:00 106 24 110/79 (89) 96 09/17/19 17:00 102 24 100/49 (66) 98 09/17/19 16:00 97.5 103 18 113/99 (104) 100 09/17/19 16:00 102 09/17/19 16:00 Mechanical Ventilator 09/17/19 15:30 113/99 09/17/19 15:01 105 23 100 09/17/19 15:00 102 24 109/59 (76) 84 09/17/19 14:45 100 23 124/99 (107) 85 09/17/19 14:30 100 23 114/41 (65) 86 09/17/19 14:00 100 19 151/137 (142) 83 09/17/19 13:14 89 18 40 09/17/19 13:00 100 17 141/91 (108) 91 09/17/19 12:00 97.8 86 16 88/37 (54) 91 09/17/19 12:00 100 09/17/19 12:00 Mechanical Ventilator 09/17/19 11:45 87 16 73/32 (46) 91 09/17/19 11:30 93 23 96/50 (65) 88 09/17/19 11:30 93 23 96/50 (65) 88 09/17/19 11:23 90 16 66/35 (45) 100 09/17/19 11:19 90 16 60/36 (44) 100 09/17/19 11:18 40 09/17/19 11:18 Endotrachael Tube 09/17/19 11:06 90 13 100 09/17/19 11:00 90 16 66/35 (45) 100 Height (Feet): 5 Height (Inches): 6.00 Weight (Pounds): 186 Objective not examined to limit COVID19 exposure Microbiology Date/Time Source Procedure Growth Status 09/17/19 05:30 Blood Blood Culture - Preliminary NO GROWTH AFTER 24 HOURS Resulted 09/17/19 05:20 Blood Blood Culture - Preliminary NO GROWTH AFTER 24 HOURS Resulted 09/17/19 10:50 Stool Clostridium difficile Toxin Assay - Final Complete 09/17/19 16:00 Urine,Clean Catch Urine Culture - Preliminary NO GROWTH Resulted 09/17/19 05:44 Urine,Clean Catch Urine Culture - Preliminary Strep Species, Alpha Hemolytic Resulted Laboratory Tests Test 09/17/19 12:41 09/17/19 16:00 09/18/19 05:21 09/18/19 07:30 Arterial Blood pH 7.260 (7.350-7.450) 7.334 (7.350-7.450) Arterial Blood Partial Pressure CO2 34.5 mmHg (35.0-45.0) L 22.1 mmHg (35.0-45.0) *L Arterial Blood Partial Pressure O2 56.0 mmHg (75.0-100.0) L 53.7 mmHg (75.0-100.0) L Arterial Blood HCO3 15.2 mmol/L (22.0-26.0) *L 11.5 mmol/L (22.0-26.0) *L Arterial Blood Oxygen Saturation 83.3 % (95-100) *L 84.2 % (95-100) *L Arterial Blood Base Excess -10.9 (-2-2) *L -13.1 (-2-2) *L Gareth Test Positive Positive Urine Color Pale yellow Urine Appearance Clear Urine pH 6 (4.5-8.0) Urine Specific [place] 1.010 (1.005-1.035) Urine Protein 4+ (NEGATIVE) H Urine Glucose (UA) Negative (NEGATIVE) Urine Ketones Negative (NEGATIVE) Urine Blood 5+ (NEGATIVE) H Urine Nitrite Negative (NEGATIVE) Urine Bilirubin Negative (NEGATIVE) Urine Urobilinogen Normal MG/DL (0.0-1.0) Urine Leukocyte Esterase Negative (NEGATIVE) Urine RBC 2-4 /HPF (0 - 2) H Urine WBC 0-2 /HPF (0 - 2) Urine Squamous Epithelial Cells Few /LPF (NONE/OCC) Urine Bacteria Many /HPF (NONE) H Urine Eosinophils None seen (NONE SEEN) Urine Random Sodium 59 mmol/L (20-110) Urine Potassium Timed 46 mmol/L (12-62) Prothrombin Time 11.6 SEC (9.30-11.50) H Prothromb Time International Ratio 1.1 (0.9-1.1) Activated Partial Thromboplast Time 39 SEC (23-33) H Fibrinogen 737 mg/dL (200-400) H D-Dimer 5.39 mg/L FEU (0.00-0.49) H Sodium Level 154 MMOL/L (136-145) H Potassium Level 4.5 MMOL/L (3.5-5.1) Chloride Level 118 MMOL/L (98-107) H Carbon Dioxide Level 14 MMOL/L (21-32) L Anion Gap 22 mmol/L (5-15) H Blood Urea Nitrogen 126 mg/dL (7-18) H Creatinine 5.9 MG/DL (0.55-1.30) H Estimat Glomerular Filtration Rate 8.2 mL/min (>60) Glucose Level 121 MG/DL (74-106) #H Hemoglobin A1c 7.7 % (4.3-6.0) H Uric Acid 9.8 MG/DL (2.6-7.2) H Calcium Level 6.7 MG/DL (8.5-10.1) L Phosphorus Level 4.0 MG/DL (2.5-4.9) Magnesium Level 2.5 MG/DL (1.8-2.4) H Iron Level 25 ug/dL (50-175) L Total Iron Binding Capacity 115 ug/dL (250-450) L Percent Iron Saturation 22 % (15-50) Unsaturated Iron Binding 90 ug/dL (112-346) L Ferritin > 2000 NG/ML (8-388) H Total Bilirubin 0.4 MG/DL (0.2-1.0) Direct Bilirubin 0.2 MG/DL (0.0-0.3) Gamma Glutamyl Transpeptidase 35 U/L (5-85) Aspartate Amino Transf (AST/SGOT) 206 U/L (15-37) H Alanine Aminotransferase (ALT/SGPT) 75 U/L (12-78) Alkaline Phosphatase 59 U/L (46-116) Lactate Dehydrogenase 843 U/L (81-234) H Troponin I 0.366 ng/mL (0.000-0.056) C-Reactive Protein, Quantitative 41.7 mg/dL (0.00-0.90) H Pro-B-Type Natriuretic Peptide 2660 pg/mL (0-125) H Total Protein 6.5 G/DL (6.4-8.2) Albumin 2.1 G/DL (3.4-5.0) L Globulin 5.2 g/dL Albumin/Globulin Ratio 0.4 (1.0-2.7) L Triglycerides Level 422 MG/DL (30-150) H Cholesterol Level 101 MG/DL (< 200) LDL Cholesterol 22 mg/dL (<100) HDL Cholesterol 15 MG/DL (40-60) L Cholesterol/HDL Ratio 6.7 (3.3-4.4) H Carcinoembryonic Antigen Pending Vitamin B12 Level 1938 PG/ML (193-986) H Folate 55.4 NG/ML (8.6-58.9) Thyroid Stimulating Hormone (TSH) 1.017 uiU/mL (0.358-3.740) Cortisol AM Sample Pending Test 09/18/19 08:45 White Blood Count 4.1 K/UL (4.8-10.8) #L Red Blood Count 1.98 M/UL (4.20-5.40) L Hemoglobin 6.2 G/DL (12.0-16.0) *L Hematocrit 18.6 % (37.0-47.0) L Mean Corpuscular Volume 94 FL (80-99) Mean Corpuscular Hemoglobin 31.6 PG (27.0-31.0) H Mean Corpuscular Hemoglobin Concent 33.6 G/DL (32.0-36.0) Red Cell Distribution Width 12.5 % (11.6-14.8) Platelet Count 60 K/UL (150-450) L Mean Platelet Volume 9.2 FL (6.5-10.1) Neutrophils (%) (Auto) % (45.0-75.0) Lymphocytes (%) (Auto) % (20.0-45.0) Monocytes (%) (Auto) % (1.0-10.0) Eosinophils (%) (Auto) % (0.0-3.0) Basophils (%) (Auto) % (0.0-2.0) Neutrophils % (Manual) Pending Lymphocytes % (Manual) Pending Platelet Estimate Pending Platelet Morphology Pending Erythrocyte Sedimentation Rate 149 MM/HR (0-30) H Reticulocyte Count Pending Current Medications Medications (Trade) Dose Ordered Sig/Nancy Route PRN Reason Start Time Stop Time Status Last Admin Dose Admin Acetaminophen (Tylenol) 650 mg Q4H PRN ORAL fever 09/17/19 09:30 10/17/19 09:29 Albuterol/ Ipratropium (Albuterol/ Ipratropium) 3 ml Q4H PRN HHN Shortness of Breath 09/17/19 09:30 09/22/19 09:29 Allopurinol (Zyloprim) 200 mg DAILY GT 09/18/19 09:00 10/18/19 08:59 09/18/19 08:48 Dextrose 1,000 ml @ 100 mls/hr Q10H IV 09/18/19 08:15 10/18/19 08:14 09/18/19 08:47 Dextrose (Dextrose 50%) 25 ml Q30M PRN IV Hypoglycemia 09/17/19 13:15 12/16/19 13:14 Dextrose (Dextrose 50%) 50 ml Q30M PRN IV Hypoglycemia 09/17/19 13:15 12/16/19 13:14 Heparin Sodium (Porcine) (Heparin 5000 units/ml) 5,000 units EVERY 12 HOURS SUBQ 09/17/19 21:00 11/01/19 20:59 09/17/19 21:06 Hydralazine HCl (Apresoline) 10 mg Q4H PRN IV For High Blood Pressure 09/17/19 16:15 12/16/19 16:14 Insulin Aspart (NovoLOG) BEFORE MEALS AND HS SUBQ 09/17/19 16:30 12/16/19 16:29 09/17/19 16:39 Levetiracetam (Keppra) 1,000 mg Q12HR GT 09/17/19 21:00 10/17/19 20:59 09/18/19 08:48 Lorazepam (Ativan 2mg/ml 1ml) 2 mg Q2H PRN IV For Anxiety 09/17/19 09:30 09/24/19 09:29 Meropenem 500 mg/ Sodium Chloride 55 ml @ 110 mls/hr Q24H IVPB 09/17/19 16:00 09/22/19 15:59 09/17/19 16:37 Midodrine (Pro-Amatine) 10 mg Q8HR GT 09/17/19 14:30 12/16/19 14:29 09/18/19 06:09 Morphine Sulfate (Morphine Sulfate) 4 mg Q4H PRN IVP Severe Pain (Pain Scale 7-10) 09/17/19 09:30 09/24/19 09:29 Norepinephrine Bitartrate 4 mg/ Dextrose 250 ml @ 0 mls/hr Q24H IV 09/17/19 15:30 10/17/19 15:23 Ondansetron HCl (Zofran) 4 mg Q6H PRN IVP Nausea & Vomiting 09/17/19 09:30 10/17/19 09:29 Pantoprazole (Protonix) 40 mg EVERY 12 HOURS IVP 09/17/19 10:00 10/17/19 09:59 09/18/19 08:48 Polyethylene Glycol (Miralax) 17 gm DAILYPRN PRN ORAL Constipation 09/17/19 09:30 10/17/19 09:29 Vancomycin HCl (Vanco rx to dose) 1 ea DAILY PRN MISC pharmacy to dose 09/17/19 10:00 10/17/19 09:59 Nkechi Stevenson M.D. September 18, 2019 11:02
--- NOTE | 2019-09-18 11:24 | Pulmonolgy Critical Care Note ---
Critical Care - Asmt/Plan Problems: (1) Acute respiratory failure (2) Sepsis (3) Healthcare-associated pneumonia (4) Acute on chronic renal failure (5) Epileptic seizure, generalized (6) Suspected 2019 novel coronavirus infection (7) Diabetes (8) G tube feedings (9) S/P AKA (above knee amputation) unilateral (10) Dementia (11) Functional quadriplegia Respiratory: monitor respiratory rate, adjust FIO2, CXR Cardiac: continue to monitor HR/BP Renal: F/U I&O, keep IV fluid, check electrolytes Infectious Disease: check cultures, continue antibiotics Gastrointestinal: start feedings Endocrine: monitor blood sugar Hematologic: monitor H/H, transfuse if hgb<8.5 Neurologic: PRN Ativan, keep patient comfortable Affect: PRN ativan Time Spent (Minutes): 40 Notes Reviewed: cardio, renal, ID Discussed with: nurses, consultants, case work aidedepartment manager - Objective Last 24 Hour Vital Signs Date Time Temp Pulse Resp B/P (MAP) Pulse Ox O2 Delivery O2 Flow Rate FiO2 09/18/19 10:55 116 20 100 09/18/19 10:00 119 20 124/53 (76) 91 09/18/19 09:00 100.9 123 20 103/50 (67) 92 09/18/19 08:00 123 21 104/35 (58) 91 09/18/19 07:20 124 19 100 09/18/19 07:00 124 19 115/37 (63) 91 09/18/19 06:30 126 20 111/52 (71) 93 09/18/19 06:30 126 20 09/18/19 06:00 124 19 88/36 (53) 90 09/18/19 05:30 126 32 102/50 (67) 95 09/18/19 05:24 125 20 100 09/18/19 05:00 126 24 110/44 (66) 94 09/18/19 04:30 129 30 123/44 (70) 100 09/18/19 04:00 124 09/18/19 04:00 98.6 126 20 112/46 (68) 100 09/18/19 04:00 Mechanical Ventilator 09/18/19 03:30 126 22 117/71 (86) 100 09/18/19 03:01 122 20 100 09/18/19 03:00 125 19 100/46 (64) 91 09/18/19 02:30 123 19 105/38 (60) 90 09/18/19 02:00 123 21 84/47 (59) 91 09/18/19 01:30 123 24 126/50 (75) 91 09/18/19 01:00 118 20 131/91 (104) 94 09/18/19 00:52 125 19 100 09/18/19 00:30 120 21 118/65 (82) 91 09/18/19 00:00 Mechanical Ventilator 09/18/19 00:00 98.6 119 21 104/84 (91) 95 09/18/19 00:00 113 09/17/19 23:30 113 19 108/42 (64) 93 09/17/19 23:00 112 17 87/51 (63) 95 09/17/19 22:41 109 21 100 09/17/19 22:30 115 23 123/95 (104) 94 09/17/19 22:00 109 17 95/49 (64) 99 09/17/19 21:30 113 21 96/75 (82) 96 09/17/19 21:00 113 18 92/62 (72) 94 09/17/19 20:53 105 24 100 09/17/19 20:30 110 17 94/39 (57) 96 09/17/19 20:00 104 09/17/19 20:00 98.5 108 19 117/98 (104) 95 09/17/19 20:00 Mechanical Ventilator 09/17/19 19:29 112 26 100 09/17/19 19:00 102 16 85/34 (51) 98 09/17/19 18:00 106 24 110/79 (89) 96 09/17/19 17:00 102 24 100/49 (66) 98 09/17/19 16:00 97.5 103 18 113/99 (104) 100 09/17/19 16:00 102 09/17/19 16:00 Mechanical Ventilator 09/17/19 15:30 113/99 09/17/19 15:01 105 23 100 09/17/19 15:00 102 24 109/59 (76) 84 09/17/19 14:45 100 23 124/99 (107) 85 09/17/19 14:30 100 23 114/41 (65) 86 09/17/19 14:00 100 19 151/137 (142) 83 09/17/19 13:14 89 18 40 09/17/19 13:00 100 17 141/91 (108) 91 09/17/19 12:00 97.8 86 16 88/37 (54) 91 09/17/19 12:00 100 09/17/19 12:00 Mechanical Ventilator 09/17/19 11:45 87 16 73/32 (46) 91 09/17/19 11:30 93 23 96/50 (65) 88 09/17/19 11:30 93 23 96/50 (65) 88 09/17/19 11:23 90 16 66/35 (45) 100 Status: sedated Condition: critical HEENT: atraumatic Neck: full ROM Lungs: chest wall tender, rales, rhonchi Heart: HR/BP unstable Abdomen: feeding tube Extremities: no C/C/E Decubiti: location Micro: Microbiology Date/Time Source Procedure Growth Status 09/17/19 05:30 Blood Blood Culture - Preliminary NO GROWTH AFTER 24 HOURS Resulted 09/17/19 05:20 Blood Blood Culture - Preliminary NO GROWTH AFTER 24 HOURS Resulted 09/17/19 10:50 Stool Clostridium difficile Toxin Assay - Final Complete 09/17/19 16:00 Urine,Clean Catch Urine Culture - Preliminary NO GROWTH Resulted 09/17/19 05:44 Urine,Clean Catch Urine Culture - Preliminary Strep Species, Alpha Hemolytic Resulted Accucheck: 116 Critical Care - Subjective ROS Limited/Unobtainable: Yes Condition: critical, unchanged EKG Rhythm: Sinus Rhythm FI02: 100 Vent Support Breath Rate: 16 Vent Support Mode: AC Vent Tidal Volume: 700 Sputum Amount: Moderate PEEP: 5.0 PIP: 35 Tube Feeding Amount: 10 I&O: Intake and Output 09/17/19 09/18/19 19:00 07:00 Intake Total 905 ml 1050 ml Output Total 530 ml 1285 ml Balance 375 ml -235 ml Intake Free Water 30 ml IV Total 855 ml 900 ml Tube Feeding 50 ml 120 ml Output Urine Total 130 ml 685 ml Stool Total 400 ml 600 ml # Bowel Movements 3 CXR: worsening infiltrate ET-Tube: 7.5 ET Position: 23 Labs: Laboratory Tests Test 09/17/19 12:41 09/17/19 16:00 09/18/19 05:21 09/18/19 07:30 Arterial Blood pH 7.260 (7.350-7.450) 7.334 (7.350-7.450) Arterial Blood Partial Pressure CO2 34.5 mmHg (35.0-45.0) L 22.1 mmHg (35.0-45.0) *L Arterial Blood Partial Pressure O2 56.0 mmHg (75.0-100.0) L 53.7 mmHg (75.0-100.0) L Arterial Blood HCO3 15.2 mmol/L (22.0-26.0) *L 11.5 mmol/L (22.0-26.0) *L Arterial Blood Oxygen Saturation 83.3 % (95-100) *L 84.2 % (95-100) *L Arterial Blood Base Excess -10.9 (-2-2) *L -13.1 (-2-2) *L Gareth Test Positive Positive Urine Color Pale yellow Urine Appearance Clear Urine pH 6 (4.5-8.0) Urine Specific [place] 1.010 (1.005-1.035) Urine Protein 4+ (NEGATIVE) H Urine Glucose (UA) Negative (NEGATIVE) Urine Ketones Negative (NEGATIVE) Urine Blood 5+ (NEGATIVE) H Urine Nitrite Negative (NEGATIVE) Urine Bilirubin Negative (NEGATIVE) Urine Urobilinogen Normal MG/DL (0.0-1.0) Urine Leukocyte Esterase Negative (NEGATIVE) Urine RBC 2-4 /HPF (0 - 2) H Urine WBC 0-2 /HPF (0 - 2) Urine Squamous Epithelial Cells Few /LPF (NONE/OCC) Urine Bacteria Many /HPF (NONE) H Urine Eosinophils None seen (NONE SEEN) Urine Random Sodium 59 mmol/L (20-110) Urine Potassium Timed 46 mmol/L (12-62) Prothrombin Time 11.6 SEC (9.30-11.50) H Prothromb Time International Ratio 1.1 (0.9-1.1) Activated Partial Thromboplast Time 39 SEC (23-33) H Fibrinogen 737 mg/dL (200-400) H D-Dimer 5.39 mg/L FEU (0.00-0.49) H Sodium Level 154 MMOL/L (136-145) H Potassium Level 4.5 MMOL/L (3.5-5.1) Chloride Level 118 MMOL/L (98-107) H Carbon Dioxide Level 14 MMOL/L (21-32) L Anion Gap 22 mmol/L (5-15) H Blood Urea Nitrogen 126 mg/dL (7-18) H Creatinine 5.9 MG/DL (0.55-1.30) H Estimat Glomerular Filtration Rate 8.2 mL/min (>60) Glucose Level 121 MG/DL (74-106) #H Hemoglobin A1c 7.7 % (4.3-6.0) H Uric Acid 9.8 MG/DL (2.6-7.2) H Calcium Level 6.7 MG/DL (8.5-10.1) L Phosphorus Level 4.0 MG/DL (2.5-4.9) Magnesium Level 2.5 MG/DL (1.8-2.4) H Iron Level 25 ug/dL (50-175) L Total Iron Binding Capacity 115 ug/dL (250-450) L Percent Iron Saturation 22 % (15-50) Unsaturated Iron Binding 90 ug/dL (112-346) L Ferritin > 2000 NG/ML (8-388) H Total Bilirubin 0.4 MG/DL (0.2-1.0) Direct Bilirubin 0.2 MG/DL (0.0-0.3) Gamma Glutamyl Transpeptidase 35 U/L (5-85) Aspartate Amino Transf (AST/SGOT) 206 U/L (15-37) H Alanine Aminotransferase (ALT/SGPT) 75 U/L (12-78) Alkaline Phosphatase 59 U/L (46-116) Lactate Dehydrogenase 843 U/L (81-234) H Troponin I 0.366 ng/mL (0.000-0.056) C-Reactive Protein, Quantitative 41.7 mg/dL (0.00-0.90) H Pro-B-Type Natriuretic Peptide 2660 pg/mL (0-125) H Total Protein 6.5 G/DL (6.4-8.2) Albumin 2.1 G/DL (3.4-5.0) L Globulin 5.2 g/dL Albumin/Globulin Ratio 0.4 (1.0-2.7) L Triglycerides Level 422 MG/DL (30-150) H Cholesterol Level 101 MG/DL (< 200) LDL Cholesterol 22 mg/dL (<100) HDL Cholesterol 15 MG/DL (40-60) L Cholesterol/HDL Ratio 6.7 (3.3-4.4) H Carcinoembryonic Antigen Pending Vitamin B12 Level 1938 PG/ML (193-986) H Folate 55.4 NG/ML (8.6-58.9) Thyroid Stimulating Hormone (TSH) 1.017 uiU/mL (0.358-3.740) Cortisol AM Sample Pending Test 09/18/19 08:45 White Blood Count 4.1 K/UL (4.8-10.8) #L Red Blood Count 1.98 M/UL (4.20-5.40) L Hemoglobin 6.2 G/DL (12.0-16.0) *L Hematocrit 18.6 % (37.0-47.0) L Mean Corpuscular Volume 94 FL (80-99) Mean Corpuscular Hemoglobin 31.6 PG (27.0-31.0) H Mean Corpuscular Hemoglobin Concent 33.6 G/DL (32.0-36.0) Red Cell Distribution Width 12.5 % (11.6-14.8) Platelet Count 60 K/UL (150-450) L Mean Platelet Volume 9.2 FL (6.5-10.1) Neutrophils (%) (Auto) % (45.0-75.0) Lymphocytes (%) (Auto) % (20.0-45.0) Monocytes (%) (Auto) % (1.0-10.0) Eosinophils (%) (Auto) % (0.0-3.0) Basophils (%) (Auto) % (0.0-2.0) Differential Total Cells Counted 100 Neutrophils % (Manual) 51 % (45-75) Lymphocytes % (Manual) 35 % (20-45) Monocytes % (Manual) 3 % (1-10) Eosinophils % (Manual) 0 % (0-3) Basophils % (Manual) 0 % (0-2) Band Neutrophils 11 % (0-8) H Platelet Estimate Decreased L Platelet Morphology Normal Hypochromasia 1+ Erythrocyte Sedimentation Rate 149 MM/HR (0-30) H Reticulocyte Count Pending Saira Lazcano MD September 18, 2019 11:24
--- NOTE | 2019-09-18 11:55 | Nephrology Progress Note ---
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, Functional quadriplegia History of DVT ECF resident Full code Plan Transfused 2 units of packed RBCs Hydration with D5W Keep blood pressure and blood sugar in check Monitor renal parameters Avoid nephrotoxic's Pulmonary support and toilet Poor prognosis Discussed with RN Patient remain full code Subjective ROS Limited/Unobtainable: Yes Objective Objective Last 24 Hour Vital Signs Date Time Temp Pulse Resp B/P (MAP) Pulse Ox O2 Delivery O2 Flow Rate FiO2 09/18/19 11:23 100 09/18/19 10:55 116 20 100 09/18/19 10:00 119 20 124/53 (76) 91 09/18/19 09:00 100.9 123 20 103/50 (67) 92 09/18/19 08:00 Mechanical Ventilator 09/18/19 08:00 123 21 104/35 (58) 91 09/18/19 08:00 100 09/18/19 07:20 124 19 100 09/18/19 07:00 124 19 115/37 (63) 91 09/18/19 06:30 126 20 111/52 (71) 93 09/18/19 06:30 126 20 09/18/19 06:00 124 19 88/36 (53) 90 09/18/19 05:30 126 32 102/50 (67) 95 09/18/19 05:24 125 20 100 09/18/19 05:00 126 24 110/44 (66) 94 09/18/19 04:30 129 30 123/44 (70) 100 09/18/19 04:00 124 09/18/19 04:00 98.6 126 20 112/46 (68) 100 09/18/19 04:00 Mechanical Ventilator 09/18/19 03:30 126 22 117/71 (86) 100 09/18/19 03:01 122 20 100 09/18/19 03:00 125 19 100/46 (64) 91 09/18/19 02:30 123 19 105/38 (60) 90 09/18/19 02:00 123 21 84/47 (59) 91 09/18/19 01:30 123 24 126/50 (75) 91 09/18/19 01:00 118 20 131/91 (104) 94 09/18/19 00:52 125 19 100 09/18/19 00:30 120 21 118/65 (82) 91 09/18/19 00:00 Mechanical Ventilator 09/18/19 00:00 98.6 119 21 104/84 (91) 95 09/18/19 00:00 113 09/17/19 23:30 113 19 108/42 (64) 93 09/17/19 23:00 112 17 87/51 (63) 95 09/17/19 22:41 109 21 100 09/17/19 22:30 115 23 123/95 (104) 94 09/17/19 22:00 109 17 95/49 (64) 99 09/17/19 21:30 113 21 96/75 (82) 96 09/17/19 21:00 113 18 92/62 (72) 94 09/17/19 20:53 105 24 100 09/17/19 20:30 110 17 94/39 (57) 96 09/17/19 20:00 104 09/17/19 20:00 98.5 108 19 117/98 (104) 95 09/17/19 20:00 Mechanical Ventilator 09/17/19 19:29 112 26 100 09/17/19 19:00 102 16 85/34 (51) 98 09/17/19 18:00 106 24 110/79 (89) 96 09/17/19 17:00 102 24 100/49 (66) 98 09/17/19 16:00 97.5 103 18 113/99 (104) 100 09/17/19 16:00 102 09/17/19 16:00 Mechanical Ventilator 09/17/19 15:30 113/99 09/17/19 15:01 105 23 100 09/17/19 15:00 102 24 109/59 (76) 84 09/17/19 14:45 100 23 124/99 (107) 85 09/17/19 14:30 100 23 114/41 (65) 86 09/17/19 14:00 100 19 151/137 (142) 83 09/17/19 13:14 89 18 40 09/17/19 13:00 100 17 141/91 (108) 91 09/17/19 12:00 97.8 86 16 88/37 (54) 91 09/17/19 12:00 100 09/17/19 12:00 Mechanical Ventilator Intake and Output 09/17/19 09/18/19 19:00 07:00 Intake Total 905 ml 1050 ml Output Total 530 ml 1285 ml Balance 375 ml -235 ml Intake Free Water 30 ml IV Total 855 ml 900 ml Tube Feeding 50 ml 120 ml Output Urine Total 130 ml 685 ml Stool Total 400 ml 600 ml # Bowel Movements 3 Laboratory Tests 09/17/19 12:41: Arterial Blood pH 7.260L, Arterial Blood Partial Pressure CO2 34.5L, Arterial Blood Partial Pressure O2 56.0L, Arterial Blood HCO3 15.2*L, Arterial Blood Oxygen Saturation 83.3*L, Arterial Blood Base Excess -10.9*L, Gareth Test Positive 09/17/19 16:00: Urine Color Pale yellow, Urine Appearance Clear, Urine pH 6, Urine Specific [place] 1.010, Urine Protein 4+H, Urine Glucose (UA) Negative, Urine Ketones Negative, Urine Blood 5+H, Urine Nitrite Negative, Urine Bilirubin Negative, Urine Urobilinogen Normal, Urine Leukocyte Esterase Negative, Urine RBC 2-4H, Urine WBC 0-2, Urine Squamous Epithelial Cells Few, Urine Bacteria ManyH, Urine Eosinophils None seen, Urine Random Sodium 59, Urine Potassium Timed 46 09/18/19 05:21: Prothrombin Time 11.6H, Prothromb Time International Ratio 1.1, Activated Partial Thromboplast Time 39H, Fibrinogen 737H, D-Dimer 5.39H, Sodium Level 154H , Potassium Level 4.5, Chloride Level 118H, Carbon Dioxide Level 14L, Anion Gap 22H, Blood Urea Nitrogen 126H, Creatinine 5.9H, Estimat Glomerular Filtration Rate 8.2, Glucose Level 121#H, Hemoglobin A1c 7.7H, Uric Acid 9.8H, Calcium Level 6.7L, Phosphorus Level 4.0, Magnesium Level 2.5H, Iron Level 25L, Total Iron Binding Capacity 115L, Percent Iron Saturation 22, Unsaturated Iron Binding 90L, Ferritin > 2000H, Total Bilirubin 0.4, Direct Bilirubin 0.2, Gamma Glutamyl Transpeptidase 35, Aspartate Amino Transf (AST/SGOT) 206H, Alanine Aminotransferase (ALT/SGPT) 75, Alkaline Phosphatase 59, Lactate Dehydrogenase 843H, Troponin I 0.366H, C-Reactive Protein, Quantitative 41.7H, Pro-B-Type Natriuretic Peptide 2660H, Total Protein 6.5, Albumin 2.1L, Globulin 5.2, Albumin/Globulin Ratio 0.4L, Triglycerides Level 422H, Cholesterol Level 101, LDL Cholesterol 22, HDL Cholesterol 15L, Cholesterol/HDL Ratio 6.7H, Carcinoembryonic Antigen [Pending], Vitamin B12 Level 1938H, Folate 55.4, Thyroid Stimulating Hormone (TSH) 1.017, Cortisol AM Sample [Pending] 09/18/19 07:30: Arterial Blood pH 7.334L, Arterial Blood Partial Pressure CO2 22.1*L, Arterial Blood Partial Pressure O2 53.7L, Arterial Blood HCO3 11.5*L, Arterial Blood Oxygen Saturation 84.2*L, Arterial Blood Base Excess -13.1*L, Gareth Test Positive 09/18/19 08:45: White Blood Count 4.1#L, Red Blood Count 1.98L, Hemoglobin 6.2*L, Hematocrit 18.6L, Mean Corpuscular Volume 94, Mean Corpuscular Hemoglobin 31.6H, Mean Corpuscular Hemoglobin Concent 33.6, Red Cell Distribution Width 12.5, Platelet Count 60L, Mean Platelet Volume 9.2, Neutrophils (%) (Auto) , Lymphocytes (%) ( Auto) , Monocytes (%) (Auto) , Eosinophils (%) (Auto) , Basophils (%) (Auto) , Differential Total Cells Counted 100, Neutrophils % (Manual) 51, Lymphocytes % ( Manual) 35, Monocytes % (Manual) 3, Eosinophils % (Manual) 0, Basophils % ( Manual) 0, Band Neutrophils 11H, Platelet Estimate DecreasedL, Platelet Morphology Normal, Hypochromasia 1+, Erythrocyte Sedimentation Rate 149H, Reticulocyte Count 0.2L Height (Feet): 5 Height (Inches): 6.00 Weight (Pounds): 186 General Appearance: no apparent distress EENT: other - Intubated on ventilator Cardiovascular: tachycardia Respiratory/Chest: decreased breath sounds Abdomen: distended Estevan Orzoco MD September 18, 2019 11:55
[2019-09-18] MEDS ORDERED: Heparin1,000 units/500ml Premix(Conc:2 units/ml) IV PRN (12:15)
[2019-09-18] MEDS ORDERED: Lidocaine 1% Plain 30 ml INJ SCH (12:30)
--- NOTE | 2019-09-18 12:41 | NUR ---
NURSE NOTES: 2 units of pRBC is ready. Temp is 102.4. PRN Tylenol 650mg given for fever. Continued cooling measures. Will recheck temp again.
--- NOTE | 2019-09-18 13:08 | NUR ---
CASE MANAGEMENT: INITIAL REVIEW 84 YR OLD FEMALE BIBA FROM [facility] CC:SEIZURE PMH: HTN . DM II . SEIZURE DISORDER SI:ACUTE FEBRILE ILLNESS . SEIZURE . HYPERGLYCEMIA . UTI . PNA . SUSPECTED COVID-19 R/O SEPSIS WITH ACUTE HYPOXIA . ACUTE RENAL FAILURE 102.8 107 20 150/96 100% ON 15L NON-BREATHER--- >> MECHANICAL VENT WBC 11.1 H/H 8.3/24.1 NA+ 153 CL 115 BUN/CREAT 148/6.0 BGLU 358 CA+ 7.5 AST/ALT 278/106 CK 1331 ALBUMIN 0.5 LACTIC ACID 2.90 URIC ACID 10.5 IS:IV KEPPRA X1 IVF NS BOLUS X2 IV VANCO X1 IV ZOSYN X1 TYLENOL PO X1 IV AMIDATE X1 \: INTENSIVE CARE UNIT DCP: GRADY JIANG WHEN STABLE PLAN: HYDRATE IV ABX CASE MANAGEMENT: REVIEW 09/18/2019 SI:ACUTE FEBRILE ILLNESS . SEIZURE . HYPERGLYCEMIA . UTI . PNA . SUSPECTED COVID-19 R/O SEPSIS WITH ACUTE HYPOXIA . ACUTE RENAL FAILURE 102.4 115 124/53 91% ON MECHANICAL VENT FiO2 100 TROP 0.366 WBC 4.1 H/H 6.2/18.6 PLT 60 NA+ 154 CL 118 BUN/CREAT 126/5.9 BGLU 121 CA+ 6.7 MG 2.5 FERR >2000 URIC ACID 9.8 AST 204 C-REC PROT. 41.7 BNP 2660 CK 1331 LDH 843 IS:IVF NS BOLUS X1 IV D5 @100ML/HR IV MEROPENEM Q24HR PRO-AMATINE GT TID KEPPRA GT BID PROTONIX BID TYLENOL Q4HR/PRN NOVOLOG SQ AC&HS ALLOPURINOL GT QD \: INTENSIVE CARE UNIT DCP: GRADY JIANG WHEN STABLE PLAN: HYDRATE IV ABX PICC LINE PLACEMENT TYPE AND CROSS - TRANSFUSE X2
--- NOTE | 2019-09-18 13:15 | NUR ---
NURSE NOTES: Temp 101.9. Continued cooling measures. Will hold blood transfusion until temp cools down. O2 sat 90-92% on FiO2 100%. Dr Lazcano is aware. Will continue to monitor.
--- NOTE | 2019-09-18 13:45 | NUR ---
FAMILY LAW MEDIATOR NOTE Pt has admitted to ICU on 09/17/2019. Per chart review, pt is A&O 0x and intubated. PT is from [facility] [id number], [place] [address]. Emergency contacts listed: Estevan [place] [phone] and Dejon Lebron [phone]. ALLEN spoke w/ pt's niece Dejon Lebron and confirmed she is the conservator and the primary decision maker. Dejon also confirmed pt has full code. No concern/needs expressed. SW to F/U as needed.
[2019-09-18] MEDS: Meropenem 500 MG in NS 55 ML IVPB SCH (15:15)
--- NOTE | 2019-09-18 15:15 | NUR ---
NURSE NOTES: Started to run Meropenem IV as scheduled. Temp 99.5. Will forklift picker blood after Meropenem is done.
--- NOTE | 2019-09-18 16:06 | NUR ---
NURSE NOTES: Right IJ TLC was inserted by radiology. Xray was taken to confirm the placement. Awaiting radiology to read the film.
--- NOTE | 2019-09-18 16:30 | Diagnostic Imaging Report ---
Procedure: XRAY Chest 1v Reason for study: Shortness of breath. Comparison films: 09/17/2019. FINDINGS: Endotracheal tube remains in place. There is interval worsening of bilateral infiltrates. Right upper lobe infiltrate has become more confluent. There is also increased alveolar densities in the left mid to lower lung zones. Cardiac and mediastinal silhouette are within normal limits. CP angles are sharp. The bony thorax appear unremarkable. IMPRESSION: Worsening of bilateral infiltrates.
--- NOTE | 2019-09-18 16:30 | NUR ---
NURSE NOTES: 1st unit of pRBC started. Cosigned with LUIS Krishnamurthy. Temp 99.5, HR 105, BP 82/36. Will continue to monitor.
--- NOTE | 2019-09-18 16:30 | Diagnostic Imaging Report ---
Procedure: XRAY Chest 1v Reason for study: Reason For Exam: SOB Comparison films: 04/13/2019. FINDINGS: A single one view chest is obtained. Vascularity is normal. Patchy bilateral infiltrates noted. Cardiac and mediastinal silhouette are within normal limits. CP angles are sharp. Aorta is tortuous. IMPRESSION: Bilateral infiltrates
--- NOTE | 2019-09-18 16:30 | Diagnostic Imaging Report ---
Procedure: XRAY Chest 1v Reason for study: Shortness of breath. Status post intubation. Comparison films: 09/17/2019. FINDINGS: There is a new endotracheal tube in satisfactory position. Vascularity is normal. Bilateral infiltrates unchanged. Cardiac and mediastinal silhouette are within normal limits. CP angles are sharp. The bony thorax appear unremarkable. IMPRESSION: Endotracheal tube in good position. No change bilateral infiltrates.
--- NOTE | 2019-09-18 16:56 | Internal Med Progress Note ---
Subjective Physician Name Lane Woodson Attending Physician Saira Lazcano MD Current Medications Medications (Trade) Dose Ordered Sig/Nancy Route PRN Reason Start Time Stop Time Status Last Admin Dose Admin Acetaminophen (Tylenol) 650 mg Q4H PRN ORAL fever 09/17/19 09:30 10/17/19 09:29 09/18/19 12:41 Albuterol/ Ipratropium (Albuterol/ Ipratropium) 3 ml Q4H PRN HHN Shortness of Breath 09/17/19 09:30 09/22/19 09:29 Allopurinol (Zyloprim) 200 mg DAILY GT 09/18/19 09:00 10/18/19 08:59 09/18/19 08:48 Chlorhexidine Gluconate (Jossy-Hex 2%) 1 applic DAILY@2000 TOPIC 09/18/19 20:00 12/17/19 19:59 Dextrose 1,000 ml @ 100 mls/hr Q10H IV 09/18/19 08:15 10/18/19 08:14 09/18/19 08:47 Dextrose (Dextrose 50%) 25 ml Q30M PRN IV Hypoglycemia 09/17/19 13:15 12/16/19 13:14 Dextrose (Dextrose 50%) 50 ml Q30M PRN IV Hypoglycemia 09/17/19 13:15 12/16/19 13:14 Heparin Sodium (Porcine) (Heparin 5000 units/ml) 5,000 units EVERY 12 HOURS SUBQ 09/17/19 21:00 11/01/19 20:59 09/17/19 21:06 Heparin Sodium/ Sodium Chloride (Heparin 1000 units/500ml Premix) 1,000 unit ONCE PRN IV picc line placement 09/18/19 12:15 09/20/19 12:14 Hydralazine HCl (Apresoline) 10 mg Q4H PRN IV For High Blood Pressure 09/17/19 16:15 12/16/19 16:14 Insulin Aspart (NovoLOG) Q6HR SUBQ 09/18/19 18:00 12/16/19 16:29 Levetiracetam (Keppra) 1,000 mg Q12HR GT 09/17/19 21:00 10/17/19 20:59 09/18/19 08:48 Lorazepam (Ativan 2mg/ml 1ml) 2 mg Q2H PRN IV For Anxiety 09/17/19 09:30 09/24/19 09:29 Meropenem 500 mg/ Sodium Chloride 55 ml @ 110 mls/hr Q24H IVPB 09/17/19 16:00 09/22/19 15:59 09/18/19 15:15 Midodrine (Pro-Amatine) 10 mg Q8HR GT 09/17/19 14:30 12/16/19 14:29 09/18/19 13:19 Morphine Sulfate (Morphine Sulfate) 4 mg Q4H PRN IVP Severe Pain (Pain Scale 7-10) 09/17/19 09:30 09/24/19 09:29 Norepinephrine Bitartrate 4 mg/ Dextrose 250 ml @ 0 mls/hr Q24H IV 09/17/19 15:30 10/17/19 15:23 Ondansetron HCl (Zofran) 4 mg Q6H PRN IVP Nausea & Vomiting 09/17/19 09:30 10/17/19 09:29 Pantoprazole (Protonix) 40 mg EVERY 12 HOURS IVP 09/17/19 10:00 10/17/19 09:59 09/18/19 08:48 Polyethylene Glycol (Miralax) 17 gm DAILYPRN PRN ORAL Constipation 09/17/19 09:30 10/17/19 09:29 Vancomycin HCl (Vanco rx to dose) 1 ea DAILY PRN [facility] to dose 09/17/19 10:00 10/17/19 09:59 Allergies: Coded Allergies: METOCLOPRAMIDE (Verified Allergy, Unknown, 03/10/18) extrapyramidal Sx Subjective Intubated, in ICU, on isolation room.Hgb: 6.2 Objective Last Vital Signs Date Time Temp Pulse Resp B/P (MAP) Pulse Ox O2 Delivery O2 Flow Rate FiO2 09/18/19 16:00 106 21 82/36 (51) 92 09/18/19 15:15 99.5 09/18/19 15:10 100 09/18/19 08:00 Mechanical Ventilator 09/17/19 10:20 15.0 Laboratory Tests Test 09/18/19 05:21 09/18/19 07:30 09/18/19 08:45 Prothrombin Time 11.6 SEC (9.30-11.50) H Prothromb Time International Ratio 1.1 (0.9-1.1) Activated Partial Thromboplast Time 39 SEC (23-33) H Fibrinogen 737 mg/dL (200-400) H D-Dimer 5.39 mg/L FEU (0.00-0.49) H Sodium Level 154 MMOL/L (136-145) H Potassium Level 4.5 MMOL/L (3.5-5.1) Chloride Level 118 MMOL/L (98-107) H Carbon Dioxide Level 14 MMOL/L (21-32) L Anion Gap 22 mmol/L (5-15) H Blood Urea Nitrogen 126 mg/dL (7-18) H Creatinine 5.9 MG/DL (0.55-1.30) H Estimat Glomerular Filtration Rate 8.2 mL/min (>60) Glucose Level 121 MG/DL (74-106) #H Hemoglobin A1c 7.7 % (4.3-6.0) H Uric Acid 9.8 MG/DL (2.6-7.2) H Calcium Level 6.7 MG/DL (8.5-10.1) L Phosphorus Level 4.0 MG/DL (2.5-4.9) Magnesium Level 2.5 MG/DL (1.8-2.4) H Iron Level 25 ug/dL (50-175) L Total Iron Binding Capacity 115 ug/dL (250-450) L Percent Iron Saturation 22 % (15-50) Unsaturated Iron Binding 90 ug/dL (112-346) L Ferritin > 2000 NG/ML (8-388) H Total Bilirubin 0.4 MG/DL (0.2-1.0) Direct Bilirubin 0.2 MG/DL (0.0-0.3) Gamma Glutamyl Transpeptidase 35 U/L (5-85) Aspartate Amino Transf (AST/SGOT) 206 U/L (15-37) H Alanine Aminotransferase (ALT/SGPT) 75 U/L (12-78) Alkaline Phosphatase 59 U/L (46-116) Lactate Dehydrogenase 843 U/L (81-234) H Troponin I 0.366 ng/mL (0.000-0.056) C-Reactive Protein, Quantitative 41.7 mg/dL (0.00-0.90) H Pro-B-Type Natriuretic Peptide 2660 pg/mL (0-125) H Total Protein 6.5 G/DL (6.4-8.2) Albumin 2.1 G/DL (3.4-5.0) L Globulin 5.2 g/dL Albumin/Globulin Ratio 0.4 (1.0-2.7) L Triglycerides Level 422 MG/DL (30-150) H Cholesterol Level 101 MG/DL (< 200) LDL Cholesterol 22 mg/dL (<100) HDL Cholesterol 15 MG/DL (40-60) L Cholesterol/HDL Ratio 6.7 (3.3-4.4) H Carcinoembryonic Antigen Pending Vitamin B12 Level 1938 PG/ML (193-986) H Folate 55.4 NG/ML (8.6-58.9) Thyroid Stimulating Hormone (TSH) 1.017 uiU/mL (0.358-3.740) Cortisol AM Sample Pending Arterial Blood pH 7.334 (7.350-7.450) Arterial Blood Partial Pressure CO2 22.1 mmHg (35.0-45.0) *L Arterial Blood Partial Pressure O2 53.7 mmHg (75.0-100.0) L Arterial Blood HCO3 11.5 mmol/L (22.0-26.0) *L Arterial Blood Oxygen Saturation 84.2 % (95-100) *L Arterial Blood Base Excess -13.1 (-2-2) *L Gareth Test Positive White Blood Count 4.1 K/UL (4.8-10.8) #L Red Blood Count 1.98 M/UL (4.20-5.40) L Hemoglobin 6.2 G/DL (12.0-16.0) *L Hematocrit 18.6 % (37.0-47.0) L Mean Corpuscular Volume 94 FL (80-99) Mean Corpuscular Hemoglobin 31.6 PG (27.0-31.0) H Mean Corpuscular Hemoglobin Concent 33.6 G/DL (32.0-36.0) Red Cell Distribution Width 12.5 % (11.6-14.8) Platelet Count 60 K/UL (150-450) L Mean Platelet Volume 9.2 FL (6.5-10.1) Neutrophils (%) (Auto) % (45.0-75.0) Lymphocytes (%) (Auto) % (20.0-45.0) Monocytes (%) (Auto) % (1.0-10.0) Eosinophils (%) (Auto) % (0.0-3.0) Basophils (%) (Auto) % (0.0-2.0) Differential Total Cells Counted 100 Neutrophils % (Manual) 51 % (45-75) Lymphocytes % (Manual) 35 % (20-45) Monocytes % (Manual) 3 % (1-10) Eosinophils % (Manual) 0 % (0-3) Basophils % (Manual) 0 % (0-2) Band Neutrophils 11 % (0-8) H Other Cell Type Pathologist comment Platelet Estimate Decreased L Platelet Morphology Normal Hypochromasia 1+ Erythrocyte Sedimentation Rate 149 MM/HR (0-30) H Reticulocyte Count 0.2 % (0.5-2.0) L Microbiology Date/Time Source Procedure Growth Status 09/17/19 05:30 Blood Blood Culture - Preliminary NO GROWTH AFTER 24 HOURS Resulted 09/17/19 05:20 Blood Blood Culture - Preliminary NO GROWTH AFTER 24 HOURS Resulted 09/17/19 10:50 Stool Clostridium difficile Toxin Assay - Final Complete 09/17/19 16:00 Urine,Clean Catch Urine Culture - Preliminary NO GROWTH Resulted 09/17/19 05:44 Urine,Clean Catch Urine Culture - Preliminary Strep Species, Alpha Hemolytic Resulted Intake and Output 09/17/19 09/18/19 19:00 07:00 Intake Total 905 ml 1050 ml Output Total 530 ml 1285 ml Balance 375 ml -235 ml Intake Free Water 30 ml IV Total 855 ml 900 ml Tube Feeding 50 ml 120 ml Output Urine Total 130 ml 685 ml Stool Total 400 ml 600 ml # Bowel Movements 3 Objective General: Intubated, not responsive, HEENT: NCAT, sclera anicteric, PERRL, ET Tube.. Neck: Supple, no significant jugular venous distention, Lungs: Mechanical breath sounds, decreased air in the bases, rhonchi in the bases. Heart: Regular rate and rhythm, normal S1/S2, no murmur. Abdomen: soft, nontender, nondistended. Normoactive bowel sounds PEG site intact. : [place] cath. Extremities: No Cyanosis , clubbing or edema. Left AKA. Neuro: Limited due to patient status. Skin: warm, no rash. Assessment/Plan Assessment/Plan Septic Shock- off pressors now Bilateral Pneumonia- high suspicion for COVID19 (resident of [place] with large outbreak) Acute Hypoxemia respiratory failure s/p intubation 09/16- leukocytosis> leukopenia Thrombocytopenia. Seizure (witnessed by EMS) Anemia OREN on CKD Elevated LFTs hx of Proteus UTI 04/2019 CVA w/ residual R side weakness pancreatitis 04/2019 sp L AKA Dm2 DVT COPD Dementia dysphagia s/p GT vegetative state non verbal seizure disorder [place] resident ([facility]) Plan: -Continue empiric IV Vancomycin and Meropenem IV -Monitor laboratories and cultures -COVID19 isolation and testing -ETT/GT/ICU care -aspiration precautions -Trend CXR and inflammatory markers -Full code -DVT prophylaxis: Heparin subcu. -PICC line placement today. Lane Woodson MD September 18, 2019 16:56
--- NOTE | 2019-09-18 17:00 | Pre-Procedure Note/Attestation ---
Pre-Procedure Note/Attestation Complete Prior to Procedure Planned Procedure: not applicable Procedure Narrative: IV access (PICC vs central line) Indications for Procedure Pre-Operative Diagnosis: need iv access - ICU patient Attestation Consent for procedure obtained by the ICU team. This was confirmed prior to procedure. Anton Albert M.D. September 18, 2019 17:00
--- NOTE | 2019-09-18 17:08 | Diagnostic Imaging Report ---
Indication: Critically of patient needing IV access. Technique findings: Procedure performed at bedside. Procedural timeout performed. Total sterile technique, including sterile probe cover and sterile gel, sterile gloves, hand hygiene, hat, mask, sterile gown, large sterile drape, and preparation with 2% chlorhexidine utilized. Local anesthesia with 1% lidocaine. Under real-time ultrasound guidance, puncture right internal jugular vein using 18-gauge needle, passage 0.035 guidewire, over which was passed dilator and then a lumen central venous catheter. Guidewire was removed. Catheter ports were aspirated and flushed. The catheter was fixed to the skin. Patient tolerated procedure well. A chest x-ray was obtained, documents catheter tip position at the cavoatrial junction. Endotracheal tube and bilateral interstitial and airspace disease again noted. There is no evidence of pneumothorax. IMPRESSION: Successful bedside placement of right transjugular triple-lumen central venous catheter, as described. Catheter cleared for use.
--- NOTE | 2019-09-18 18:00 | NUR ---
NURSE NOTES: Cleaned and repositioned pt. 1st unit of blood is still running. No adverse transfusion reaction noted. Will continue to monitor.
[2019-09-18] MEDS ORDERED: PRO-STAT LIQUID30 ML GT (18:50)
[2019-09-18] MEDS ORDERED: ZINC SULFATE220 M1 GT (18:50)
--- NOTE | 2019-09-18 19:10 | NUR ---
HAND-OFF: Report given to LUIS Cueva.
--- NOTE | 2019-09-18 19:14 | Cardiology Progress Note ---
Assessment/Plan Assessment/Plan 1. Respiratory failure. 2. Pneumonia. 3. History of seizure disorder. 4. Hypernatremia. 5. Acute on chronic renal failure. 6. History of deep venous thrombosis. 7. Diabetes mellitus. 8. Functional quadriplegia. 9. pancytopenia including prfound antmia 10 . hypotension profound anemia ? lab error will need to repeat cbc if true will need tx bp lwo will need pressor central line in place now min secretion saturation low on 100 % and beep of 10 has sig dirrahe per rn 600 cc cdiff neg Subjective ROS Limited/Unobtainable: Yes Objective Last 24 Hour Vital Signs Date Time Temp Pulse Resp B/P (MAP) Pulse Ox O2 Delivery O2 Flow Rate FiO2 09/18/19 18:59 96 16 100 09/18/19 18:00 100 17 64/43 (50) 92 09/18/19 17:00 104 21 93/45 (61) 93 09/18/19 16:00 106 21 82/36 (51) 92 09/18/19 16:00 Mechanical Ventilator 09/18/19 15:35 104 09/18/19 15:15 99.5 09/18/19 15:10 107 20 100 09/18/19 15:00 109 23 90/40 (57) 93 09/18/19 14:00 110 21 90/40 (57) 92 09/18/19 13:15 101.9 09/18/19 13:11 101.9 09/18/19 13:00 112 22 100/43 (62) 90 09/18/19 12:42 102.4 09/18/19 12:00 117 21 108/44 (65) 91 09/18/19 12:00 Mechanical Ventilator 09/18/19 11:49 114 09/18/19 11:45 115 20 100 09/18/19 11:23 100 09/18/19 11:00 116 20 119/46 (70) 90 09/18/19 10:55 116 20 100 09/18/19 10:00 100.0 119 20 124/53 (76) 91 09/18/19 09:00 100.9 123 20 103/50 (67) 92 09/18/19 08:00 Mechanical Ventilator 09/18/19 08:00 123 21 104/35 (58) 91 5/15/20 08:00 100 09/18/19 07:33 125 09/18/19 07:20 124 19 100 09/18/19 07:00 124 19 115/37 (63) 91 09/18/19 06:30 126 20 111/52 (71) 93 09/18/19 06:30 126 20 09/18/19 06:00 124 19 88/36 (53) 90 09/18/19 05:30 126 32 102/50 (67) 95 09/18/19 05:24 125 20 100 09/18/19 05:00 126 24 110/44 (66) 94 09/18/19 04:30 129 30 123/44 (70) 100 09/18/19 04:00 124 09/18/19 04:00 98.6 126 20 112/46 (68) 100 09/18/19 04:00 Mechanical Ventilator 09/18/19 03:30 126 22 117/71 (86) 100 09/18/19 03:01 122 20 100 09/18/19 03:00 125 19 100/46 (64) 91 09/18/19 02:30 123 19 105/38 (60) 90 09/18/19 02:00 123 21 84/47 (59) 91 09/18/19 01:30 123 24 126/50 (75) 91 09/18/19 01:00 118 20 131/91 (104) 94 09/18/19 00:52 125 19 100 09/18/19 00:30 120 21 118/65 (82) 91 09/18/19 00:00 Mechanical Ventilator 09/18/19 00:00 98.6 119 21 104/84 (91) 95 09/18/19 00:00 113 09/17/19 23:30 113 19 108/42 (64) 93 09/17/19 23:00 112 17 87/51 (63) 95 09/17/19 22:41 109 21 100 09/17/19 22:30 115 23 123/95 (104) 94 09/17/19 22:00 109 17 95/49 (64) 99 09/17/19 21:30 113 21 96/75 (82) 96 09/17/19 21:00 113 18 92/62 (72) 94 09/17/19 20:53 105 24 100 09/17/19 20:30 110 17 94/39 (57) 96 09/17/19 20:00 104 09/17/19 20:00 98.5 108 19 117/98 (104) 95 09/17/19 20:00 Mechanical Ventilator 09/17/19 19:29 112 26 100 General Appearance: no apparent distress, on vent, patient on isolation Intake and Output 09/17/19 09/18/19 19:00 07:00 Intake Total 905 ml 1050 ml Output Total 530 ml 1285 ml Balance 375 ml -235 ml Intake Free Water 30 ml IV Total 855 ml 900 ml Tube Feeding 50 ml 120 ml Output Urine Total 130 ml 685 ml Stool Total 400 ml 600 ml # Bowel Movements 3 Laboratory Tests Test 09/18/19 05:21 09/18/19 07:30 09/18/19 08:45 Prothrombin Time 11.6 SEC (9.30-11.50) H Prothromb Time International Ratio 1.1 (0.9-1.1) Activated Partial Thromboplast Time 39 SEC (23-33) H Fibrinogen 737 mg/dL (200-400) H D-Dimer 5.39 mg/L FEU (0.00-0.49) H Sodium Level 154 MMOL/L (136-145) H Potassium Level 4.5 MMOL/L (3.5-5.1) Chloride Level 118 MMOL/L (98-107) H Carbon Dioxide Level 14 MMOL/L (21-32) L Anion Gap 22 mmol/L (5-15) H Blood Urea Nitrogen 126 mg/dL (7-18) H Creatinine 5.9 MG/DL (0.55-1.30) H Estimat Glomerular Filtration Rate 8.2 mL/min (>60) Glucose Level 121 MG/DL (74-106) #H Hemoglobin A1c 7.7 % (4.3-6.0) H Uric Acid 9.8 MG/DL (2.6-7.2) H Calcium Level 6.7 MG/DL (8.5-10.1) L Phosphorus Level 4.0 MG/DL (2.5-4.9) Magnesium Level 2.5 MG/DL (1.8-2.4) H Iron Level 25 ug/dL (50-175) L Total Iron Binding Capacity 115 ug/dL (250-450) L Percent Iron Saturation 22 % (15-50) Unsaturated Iron Binding 90 ug/dL (112-346) L Ferritin > 2000 NG/ML (8-388) H Total Bilirubin 0.4 MG/DL (0.2-1.0) Direct Bilirubin 0.2 MG/DL (0.0-0.3) Gamma Glutamyl Transpeptidase 35 U/L (5-85) Aspartate Amino Transf (AST/SGOT) 206 U/L (15-37) H Alanine Aminotransferase (ALT/SGPT) 75 U/L (12-78) Alkaline Phosphatase 59 U/L (46-116) Lactate Dehydrogenase 843 U/L (81-234) H Troponin I 0.366 ng/mL (0.000-0.056) C-Reactive Protein, Quantitative 41.7 mg/dL (0.00-0.90) H Pro-B-Type Natriuretic Peptide 2660 pg/mL (0-125) H Total Protein 6.5 G/DL (6.4-8.2) Albumin 2.1 G/DL (3.4-5.0) L Globulin 5.2 g/dL Albumin/Globulin Ratio 0.4 (1.0-2.7) L Triglycerides Level 422 MG/DL (30-150) H Cholesterol Level 101 MG/DL (< 200) LDL Cholesterol 22 mg/dL (<100) HDL Cholesterol 15 MG/DL (40-60) L Cholesterol/HDL Ratio 6.7 (3.3-4.4) H Carcinoembryonic Antigen Pending Vitamin B12 Level 1938 PG/ML (193-986) H Folate 55.4 NG/ML (8.6-58.9) Thyroid Stimulating Hormone (TSH) 1.017 uiU/mL (0.358-3.740) Cortisol AM Sample 24.1 UG/DL Arterial Blood pH 7.334 (7.350-7.450) Arterial Blood Partial Pressure CO2 22.1 mmHg (35.0-45.0) *L Arterial Blood Partial Pressure O2 53.7 mmHg (75.0-100.0) L Arterial Blood HCO3 11.5 mmol/L (22.0-26.0) *L Arterial Blood Oxygen Saturation 84.2 % (95-100) *L Arterial Blood Base Excess -13.1 (-2-2) *L Gareth Test Positive White Blood Count 4.1 K/UL (4.8-10.8) #L Red Blood Count 1.98 M/UL (4.20-5.40) L Hemoglobin 6.2 G/DL (12.0-16.0) *L Hematocrit 18.6 % (37.0-47.0) L Mean Corpuscular Volume 94 FL (80-99) Mean Corpuscular Hemoglobin 31.6 PG (27.0-31.0) H Mean Corpuscular Hemoglobin Concent 33.6 G/DL (32.0-36.0) Red Cell Distribution Width 12.5 % (11.6-14.8) Platelet Count 60 K/UL (150-450) L Mean Platelet Volume 9.2 FL (6.5-10.1) Neutrophils (%) (Auto) % (45.0-75.0) Lymphocytes (%) (Auto) % (20.0-45.0) Monocytes (%) (Auto) % (1.0-10.0) Eosinophils (%) (Auto) % (0.0-3.0) Basophils (%) (Auto) % (0.0-2.0) Differential Total Cells Counted 100 Neutrophils % (Manual) 51 % (45-75) Lymphocytes % (Manual) 35 % (20-45) Monocytes % (Manual) 3 % (1-10) Eosinophils % (Manual) 0 % (0-3) Basophils % (Manual) 0 % (0-2) Band Neutrophils 11 % (0-8) H Other Cell Type Pathologist comment Platelet Estimate Decreased L Platelet Morphology Normal Hypochromasia 1+ Erythrocyte Sedimentation Rate 149 MM/HR (0-30) H Reticulocyte Count 0.2 % (0.5-2.0) L Microbiology Date/Time Source Procedure Growth Status 09/17/19 05:30 Blood Blood Culture - Preliminary NO GROWTH AFTER 24 HOURS Resulted 09/17/19 05:20 Blood Blood Culture - Preliminary NO GROWTH AFTER 24 HOURS Resulted 09/17/19 10:50 Stool Clostridium difficile Toxin Assay - Final Complete 09/17/19 16:00 Urine,Clean Catch Urine Culture - Preliminary NO GROWTH Resulted 09/17/19 05:44 Urine,Clean Catch Urine Culture - Preliminary Strep Species, Alpha Hemolytic Resulted Mandeep Grimes MD September 18, 2019 19:14
--- NOTE | 2019-09-18 19:50 | NUR ---
NURSE NOTES: received report from brady rn pt orally intubated -vent with o2 sat 94 % no acute resp distress noted on blood transfusion on no apparent reaction tolerating tube feeding no residual reposition and suction martinez to bedside drainage
[2019-09-18] MEDS: Dyna-Hex 2% Top Sol 2oz TOPIC SCH (20:00)
--- NOTE | 2019-09-18 22:00 | NUR ---
NURSE NOTES: :bp 74/35 levo drip started at 22ooat 10mcg/min and 2nd unit prbc started temp 98.5 no apparent reaction after 15min if stared
[2019-09-19] VITALS (66 sets, daily range): BP systolic 95–182; BP diastolic 18–114
--- NOTE | 2019-09-19 | NUR ---
NURSE NOTES: tolerating blood transfusion no apparent reaction
--- NOTE | 2019-09-19 04:00 | NUR ---
NURSE NOTES: present blood transfusion done complete bed bath oral care wound care done
[2019-09-19] MEDS: Midodrine 10mg tab GT SCH ×3 (06:00→21:34)
--- NOTE | 2019-09-19 06:00 | NUR ---
NURSE NOTES: reposition and suction levo drip at 10mcg/min
[2019-09-19] MEDS: NovoLOG Insulin Flexpen SUBQ SCH ×3 (06:35→17:48)
--- NOTE | 2019-09-19 07:16 | Pulmonolgy Critical Care Note ---
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 Functional quadriplegia PLAN OF CARE ICU care back on pressors IVF Midodrine for BP support SARS-CoV-2 by PCR 09/16 detected remains in isolation abx per ID UCX + Enterococci avium , BCX NGTD , C dif NGT vent support, pulmonary toilet, currently PEEP10, FiO2 100% fup with ABG and CXR, titrate settings if able strict aspiration precaution DVT prophylaxis G-tube feeding seizure precautions, continue Keppra s/p blood transfusion anemia w/up c/w anemia of chronic disease in this case anemia of chronic kidney disease ferritin above 2000 consider EPO - per nephro monitor renal parameters lytes ,correct electrolytes as needed, avoid nephrotoxic trend LFT, likely due to shock liver BS management with SSI GI prophylaxis supportive care overall prognosis remains poor patient still full code case discussed and evaluated by supervising physician Critical Care - Objective Last 24 Hour Vital Signs Date Time Temp Pulse Resp B/P (MAP) Pulse Ox O2 Delivery O2 Flow Rate FiO2 09/19/19 07:00 122/64 09/19/19 06:54 104 56 09/19/19 06:45 105 24 131/47 (75) 97 09/19/19 06:30 102 24 130/52 (78) 98 09/19/19 06:15 103 21 131/50 (77) 98 09/19/19 06:00 102 24 121/52 (75) 98 09/19/19 06:00 131/46 09/19/19 05:45 100 19 112/42 (65) 99 09/19/19 05:30 100 20 116/56 (76) 98 09/19/19 05:15 104 22 127/36 (66) 98 09/19/19 05:00 106 24 127/61 (83) 98 09/19/19 05:00 130/56 09/19/19 04:45 106 24 124/53 (76) 97 09/19/19 04:30 99.5 110 22 136/40 (72) 98 09/19/19 04:15 109 25 135/54 (81) 99 09/19/19 04:00 107 09/19/19 04:00 Mechanical Ventilator 09/19/19 04:00 135/54 09/19/19 04:00 104 21 122/65 (84) 99 09/19/19 03:45 105 22 104/40 (61) 09/19/19 03:39 99 18 100 09/19/19 03:30 106 20 135/44 (74) 09/19/19 03:15 99 23 131/96 (108) 100 09/19/19 03:09 102/47 09/19/19 03:00 96 22 102/47 (65) 78 09/19/19 02:45 95 18 100/64 (76) 99 09/19/19 02:30 91 18 103/39 (60) 98 09/19/19 02:15 100 19 136/50 (78) 100 09/19/19 02:00 96 18 129/94 (106) 09/19/19 02:00 131/96 09/19/19 01:45 91 17 113/60 (77) 09/19/19 01:30 89 17 115/48 (70) 09/19/19 01:15 90 16 116/35 (62) 99 09/19/19 01:00 116/54 09/19/19 01:00 89 17 110/46 (67) 99 09/19/19 00:45 92 17 103/53 (70) 09/19/19 00:30 91 17 102/49 (66) 100 09/19/19 00:15 92 17 97/46 (63) 98 09/19/19 00:00 87 09/19/19 00:00 98.8 90 17 95/37 (56) 98 09/19/19 00:00 Mechanical Ventilator 09/19/19 00:00 102/49 09/18/19 23:45 93 17 101/48 (65) 98 09/18/19 23:30 91 17 91/31 (51) 98 09/18/19 23:18 93 18 100 09/18/19 23:15 95 17 128/59 (82) 100 09/18/19 23:00 90 18 119/36 (63) 100 09/18/19 23:00 98/45 09/18/19 22:45 91 18 110/56 (74) 98 09/18/19 22:30 93 18 94/81 (85) 99 09/18/19 22:15 90 16 81/44 (56) 93 09/18/19 22:09 88 16 77/47 (57) 92 09/18/19 22:00 90 16 74/37 (49) 92 09/18/19 22:00 90 16 74/37 (49) 92 09/18/19 21:58 74/30 09/18/19 21:49 89 16 75/37 (50) 93 09/18/19 21:45 91 16 84/44 (57) 93 09/18/19 21:43 91 16 76/32 (47) 92 09/18/19 21:37 90 16 76/30 (45) 93 09/18/19 21:30 91 16 83/39 (54) 93 09/18/19 21:15 96 22 90/41 (57) 95 09/18/19 21:07 92 16 100 09/18/19 21:03 92 18 81/39 (53) 95 09/18/19 21:00 91 16 81/41 (54) 94 09/18/19 20:45 92 16 72/36 (48) 94 09/18/19 20:30 93 17 84/47 (59) 94 09/18/19 20:15 95 17 79/46 (57) 95 09/18/19 20:00 98.5 94 19 84/36 (52) 94 09/18/19 20:00 100 09/18/19 20:00 Mechanical Ventilator 09/18/19 19:45 97 18 82/40 (54) 95 09/18/19 19:30 96 20 95/46 (62) 95 09/18/19 19:15 97 19 95/35 (55) 94 09/18/19 19:00 97 19 95/35 (55) 94 09/18/19 18:59 96 16 100 09/18/19 18:00 100 17 64/43 (50) 92 09/18/19 17:00 104 21 93/45 (61) 93 09/18/19 16:00 106 21 82/36 (51) 92 09/18/19 16:00 Mechanical Ventilator 09/18/19 15:35 104 09/18/19 15:15 99.5 5/15/20 15:10 107 20 100 09/18/19 15:00 109 23 90/40 (57) 93 09/18/19 14:00 110 21 90/40 (57) 92 09/18/19 13:15 101.9 09/18/19 13:11 101.9 09/18/19 13:00 112 22 100/43 (62) 90 09/18/19 12:42 102.4 09/18/19 12:00 117 21 108/44 (65) 91 09/18/19 12:00 Mechanical Ventilator 09/18/19 11:49 114 09/18/19 11:45 115 20 100 09/18/19 11:23 100 09/18/19 11:00 116 20 119/46 (70) 90 09/18/19 10:55 116 20 100 09/18/19 10:00 100.0 119 20 124/53 (76) 91 09/18/19 09:00 100.9 123 20 103/50 (67) 92 09/18/19 08:00 Mechanical Ventilator 09/18/19 08:00 123 21 104/35 (58) 91 09/18/19 08:00 100 09/18/19 07:33 125 09/18/19 07:20 124 19 100 Status: other - intubated, not responsive Condition: critical HEENT: normocephalic, other - ET i palce, intact Lungs: rhonchi - bilaterally Heart: HR/BP unstable, other - ST on tele Abdomen: soft - distended , active bowel sounds, other - G tube , rectal tube Extremities: other - L AKA Micro: Microbiology Date/Time Source Procedure Growth Status 09/17/19 05:30 Blood Blood Culture - Preliminary NO GROWTH AFTER 24 HOURS Resulted 09/17/19 05:20 Blood Blood Culture - Preliminary NO GROWTH AFTER 24 HOURS Resulted 09/17/19 05:30 Nasal Nares MRSA Culture - Final Staphylococcus Aureus - Mrsa Complete 09/17/19 10:50 Stool Clostridium difficile Toxin Assay - Final Complete 09/17/19 16:00 Urine,Clean Catch Urine Culture - Final Enterococcus Avium Complete 09/17/19 05:44 Urine,Clean Catch Urine Culture - Final Enterococcus Avium Complete 09/17/19 05:30 Rectum - Final NO CARBAPENEM-RESISTANT ENTEROBACTERI... Complete 09/17/19 05:30 Rectum VRE Culture - Final Enterococcus Faecium - Vre Complete Accucheck: 375 Critical Care - Subjective Interval Events: tachycardic, still febrile with low grade fever CXR with worsening infiltrates remains on 100% FiO2 with PEEP of 10 pancytopenic, Hgb better after transfusion Condition: critical IV Access: central - RIJ TL intact EKG Rhythm: Sinus Tachycardia FI02: 100 Vent Support Breath Rate: 16 Vent Support Mode: AC Vent Tidal Volume: 700 Sputum Amount: Moderate PEEP: 10.0 PIP: 37 Fluids: D5W @100 Drips: Levophed 10 mcg/min Tube Feeding Amount: 10 I&O: Intake and Output 09/18/19 09/19/19 19:00 07:00 Intake Total 1248 ml 2188.95 ml Output Total 650 ml 240 ml Balance 598 ml 1948.95 ml Intake Free Water 50 ml 150 ml IV Total 978 ml 1418.95 ml Tube Feeding 120 ml 120 ml Blood Product 500 ml Other 100 ml Output Urine Total 50 ml 40 ml Stool Total 600 ml 200 ml CXR: 09/17 worsening of bilateral infiltrates ET-Tube: 7.5 ET Position: 23 Radha Ortiz NP September 19, 2019 07:16
--- NOTE | 2019-09-19 07:31 | NUR ---
HAND-OFF: Report given to rony richard using sbar.
--- NOTE | 2019-09-19 07:32 | NUR ---
NURSE NOTES: Patient received in bed from Shae SMITH. patient is resting in bed, obtunded, only responds in deep pain. patient is nonverbal, not following any direction at this time. patient is ST on the monitor. orally intubated ETT 7.5 lip. patient can be impulsive at times, on bilateral soft wrist restraints. patient is receiving nepro @ 10ml/hr. patient has martinez intact, draining. patient has TLC on the Rt IJ dressing intact, patent. will continue to monitor.
[2019-09-19 08:39] LABS: HEMOGLOBIN 9.7 G/DL (12.0-16.0); MEAN CORPUSCULAR VOLUME 90 FL (80-99); PLATELET COUNT 51 K/UL (150-450); RED BLOOD COUNT 3.12 M/UL (4.20-5.40); RED CELL DISTRIBUTION WIDTH 13.7 % (11.6-14.8); WHITE BLOOD COUNT 9.4 K/UL (4.8-10.8)
[2019-09-19] MEDS: Heparin 5000 units/ml inj SUBQ SCH ×2 (08:39→20:31)
[2019-09-19] MEDS: levETIRAcetam 500mg/5ml Liquid GT SCH ×2 (08:44→20:31)
[2019-09-19] MEDS: Allopurinol 100mg Tab GT SCH (08:45)
[2019-09-19] MEDS: Pantoprazole Inj IVP SCH ×2 (08:45→20:31)
[2019-09-19 08:52] LABS: ALANINE AMINOTRANSFERASE 66 U/L (12-78); ALBUMIN 1.8 G/DL (3.4-5.0); ALBUMIN/GLOBULIN RATIO 0.4 (1.0-2.7); ALKALINE PHOSPHATASE 61 U/L (46-116); ANION GAP 20 mmol/L (5-15); ASPARTATE AMINO TRANSFERASE 233 U/L (15-37); BILIRUBIN,TOTAL 0.5 MG/DL (0.2-1.0); BLOOD UREA NITROGEN 131 mg/dL (7-18); CALCIUM 6.3 MG/DL (8.5-10.1); CARBON DIOXIDE 13 MMOL/L (21-32); CHLORIDE 104 MMOL/L (98-107); CREATININE 6.8 MG/DL (0.55-1.30); PHOSPHORUS 5.9 MG/DL (2.5-4.9); POTASSIUM 4.3 MMOL/L (3.5-5.1); SODIUM 137 MMOL/L (136-145)
[2019-09-19 08:57] LABS: CREATINE KINASE 4131 U/L (26-308); GAMMA GLUTAMYL TRANSPEPTIDASE 37 U/L (5-85)
--- NOTE | 2019-09-19 10:30 | Infectious Diseases Prog Note ---
Assessment/Plan Assessment/Plan Assessment: Septic Shock- off pressors now Pneumonia- high suspicion for COVID19 (resident of [place] with large outbreak) Acute respiratory failure s/p intubation 09/16- -CXR: (per ER report, official report pending): Bilateral consolidations concerning for pneumonia, right worse than left -sp cx p Fever leukocytosis> leukopenia -u/a neg; ucx >100k alpha hemolytic strep (likely contaminant); repeat ucx NTD -Bcx NTD 09/16 Cdiff neg Seizure (witnessed by EMS) Anemia/Thrombocytopenia; worsening OREN on CKD Elevated LFTs hx of Proteus UTI 04/2019 - -u/a wbc 40-60, nit neg, leuk +2; ucx 30-40k P mirabilis (I Levo; R amp , macrobid, bactrim, cipro; otherwise S) 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 Will contiue to follow along with you. Discussed with RN. Subjective Allergies: Coded Allergies: METOCLOPRAMIDE (Verified Allergy, Unknown, 03/10/18) extrapyramidal Sx Subjective Afebrile On Vent No leukocytosis Objective Vital Signs Last 24 Hour Vital Signs Date Time Temp Pulse Resp B/P (MAP) Pulse Ox O2 Delivery O2 Flow Rate FiO2 09/19/19 10:15 110 21 124/100 (108) 97 09/19/19 10:00 108 26 158/57 (90) 98 09/19/19 09:30 108 26 135/114 (121) 98 09/19/19 09:13 124/53 09/19/19 09:00 103 23 121/56 (77) 99 09/19/19 08:30 98.6 99 20 105/38 (60) 98 09/19/19 08:00 104 09/19/19 08:00 102 20 124/53 (76) 98 09/19/19 07:30 105 22 122/46 (71) 97 09/19/19 07:15 106 24 136/18 (57) 94 09/19/19 07:06 104 27 100 09/19/19 07:00 122/64 09/19/19 07:00 104 25 122/52 (75) 97 09/19/19 06:54 104 56 09/19/19 06:45 105 24 131/47 (75) 97 09/19/19 06:30 102 24 130/52 (78) 98 09/19/19 06:15 103 21 131/50 (77) 98 09/19/19 06:00 102 24 121/52 (75) 98 09/19/19 06:00 131/46 09/19/19 05:45 100 19 112/42 (65) 99 09/19/19 05:30 100 20 116/56 (76) 98 09/19/19 05:15 104 22 127/36 (66) 98 09/19/19 05:00 106 24 127/61 (83) 98 09/19/19 05:00 130/56 09/19/19 04:45 106 24 124/53 (76) 97 09/19/19 04:30 99.5 110 22 136/40 (72) 98 09/19/19 04:15 109 25 135/54 (81) 99 09/19/19 04:00 107 09/19/19 04:00 Mechanical Ventilator 09/19/19 04:00 135/54 09/19/19 04:00 104 21 122/65 (84) 99 09/19/19 03:45 105 22 104/40 (61) 09/19/19 03:39 99 18 100 09/19/19 03:30 106 20 135/44 (74) 09/19/19 03:15 99 23 131/96 (108) 100 09/19/19 03:09 102/47 09/19/19 03:00 96 22 102/47 (65) 78 09/19/19 02:45 95 18 100/64 (76) 99 09/19/19 02:30 91 18 103/39 (60) 98 09/19/19 02:15 100 19 136/50 (78) 100 5/16/20 02:00 96 18 129/94 (106) 09/19/19 02:00 131/96 09/19/19 01:45 91 17 113/60 (77) 09/19/19 01:30 89 17 115/48 (70) 09/19/19 01:15 90 16 116/35 (62) 99 09/19/19 01:00 116/54 09/19/19 01:00 89 17 110/46 (67) 99 09/19/19 00:45 92 17 103/53 (70) 09/19/19 00:30 91 17 102/49 (66) 100 09/19/19 00:15 92 17 97/46 (63) 98 09/19/19 00:00 87 09/19/19 00:00 98.8 90 17 95/37 (56) 98 09/19/19 00:00 Mechanical Ventilator 09/19/19 00:00 102/49 09/18/19 23:45 93 17 101/48 (65) 98 09/18/19 23:30 91 17 91/31 (51) 98 09/18/19 23:18 93 18 100 09/18/19 23:15 95 17 128/59 (82) 100 09/18/19 23:00 90 18 119/36 (63) 100 09/18/19 23:00 98/45 09/18/19 22:45 91 18 110/56 (74) 98 09/18/19 22:30 93 18 94/81 (85) 99 09/18/19 22:15 90 16 81/44 (56) 93 09/18/19 22:09 88 16 77/47 (57) 92 09/18/19 22:00 90 16 74/37 (49) 92 09/18/19 22:00 90 16 74/37 (49) 92 09/18/19 21:58 74/30 09/18/19 21:49 89 16 75/37 (50) 93 09/18/19 21:45 91 16 84/44 (57) 93 09/18/19 21:43 91 16 76/32 (47) 92 09/18/19 21:37 90 16 76/30 (45) 93 09/18/19 21:30 91 16 83/39 (54) 93 09/18/19 21:15 96 22 90/41 (57) 95 09/18/19 21:07 92 16 100 09/18/19 21:03 92 18 81/39 (53) 95 09/18/19 21:00 91 16 81/41 (54) 94 09/18/19 20:45 92 16 72/36 (48) 94 09/18/19 20:30 93 17 84/47 (59) 94 09/18/19 20:15 95 17 79/46 (57) 95 09/18/19 20:00 98.5 94 19 84/36 (52) 94 09/18/19 20:00 100 09/18/19 20:00 Mechanical Ventilator 09/18/19 19:45 97 18 82/40 (54) 95 09/18/19 19:30 96 20 95/46 (62) 95 09/18/19 19:15 97 19 95/35 (55) 94 09/18/19 19:00 97 19 95/35 (55) 94 09/18/19 18:59 96 16 100 09/18/19 18:00 100 17 64/43 (50) 92 09/18/19 17:00 104 21 93/45 (61) 93 09/18/19 16:00 106 21 82/36 (51) 92 09/18/19 16:00 Mechanical Ventilator 09/18/19 15:35 104 09/18/19 15:15 99.5 09/18/19 15:10 107 20 100 09/18/19 15:00 109 23 90/40 (57) 93 09/18/19 14:00 110 21 90/40 (57) 92 09/18/19 13:15 101.9 09/18/19 13:11 101.9 09/18/19 13:00 112 22 100/43 (62) 90 09/18/19 12:42 102.4 09/18/19 12:00 117 21 108/44 (65) 91 09/18/19 12:00 Mechanical Ventilator 09/18/19 11:49 114 09/18/19 11:45 115 20 100 09/18/19 11:23 100 09/18/19 11:00 116 20 119/46 (70) 90 09/18/19 10:55 116 20 100 Height (Feet): 5 Height (Inches): 6.00 Weight (Pounds): 200 Objective Patient not examined to day in order to conserve PPE Patient clinical status discussed with nurse and other physician notes and exams reviewed Microbiology Date/Time Source Procedure Growth Status 09/17/19 05:30 Blood Blood Culture - Preliminary NO GROWTH AFTER 24 HOURS Resulted 09/17/19 05:20 Blood Blood Culture - Preliminary NO GROWTH AFTER 24 HOURS Resulted 09/17/19 07:43 Nasopharynx Coronavirus COVID-19 PCR (YANA) - Final Complete 09/17/19 05:30 Nasal Nares MRSA Culture - Final Staphylococcus Aureus - Mrsa Complete 09/17/19 10:50 Stool Clostridium difficile Toxin Assay - Final Complete 09/17/19 16:00 Urine,Clean Catch Urine Culture - Final Enterococcus Avium Complete 09/17/19 05:44 Urine,Clean Catch Urine Culture - Final Enterococcus Avium Complete 09/17/19 05:30 Rectum - Final NO CARBAPENEM-RESISTANT ENTEROBACTERI... Complete 09/17/19 05:30 Rectum VRE Culture - Final Enterococcus Faecium - Vre Complete Laboratory Tests Test 09/19/19 04:00 09/19/19 07:15 Arterial Blood pH 7.292 (7.350-7.450) Arterial Blood Partial Pressure CO2 20.8 mmHg (35.0-45.0) *L Arterial Blood Partial Pressure O2 71.8 mmHg (75.0-100.0) L Arterial Blood HCO3 9.8 mmol/L (22.0-26.0) *L Arterial Blood Oxygen Saturation 92.2 % (95-100) L Arterial Blood Base Excess -14.9 (-2-2) *L Gareth Test Positive White Blood Count 9.4 K/UL (4.8-10.8) # Red Blood Count 3.12 M/UL (4.20-5.40) L Hemoglobin 9.7 G/DL (12.0-16.0) #L Hematocrit 28.0 % (37.0-47.0) #L Mean Corpuscular Volume 90 FL (80-99) Mean Corpuscular Hemoglobin 31.2 PG (27.0-31.0) H Mean Corpuscular Hemoglobin Concent 34.8 G/DL (32.0-36.0) Red Cell Distribution Width 13.7 % (11.6-14.8) Platelet Count 51 K/UL (150-450) L Mean Platelet Volume 9.3 FL (6.5-10.1) Neutrophils (%) (Auto) % (45.0-75.0) Lymphocytes (%) (Auto) % (20.0-45.0) Monocytes (%) (Auto) % (1.0-10.0) Eosinophils (%) (Auto) % (0.0-3.0) Basophils (%) (Auto) % (0.0-2.0) Neutrophils % (Manual) Pending Lymphocytes % (Manual) Pending Platelet Estimate Pending Platelet Morphology Pending Sodium Level 137 MMOL/L (136-145) Potassium Level 4.3 MMOL/L (3.5-5.1) Chloride Level 104 MMOL/L (98-107) Carbon Dioxide Level 13 MMOL/L (21-32) L Anion Gap 20 mmol/L (5-15) H Blood Urea Nitrogen 131 mg/dL (7-18) H Creatinine 6.8 MG/DL (0.55-1.30) H Estimat Glomerular Filtration Rate 7.0 mL/min (>60) Glucose Level 423 MG/DL (74-106) #H Uric Acid 8.9 MG/DL (2.6-7.2) H Calcium Level 6.3 MG/DL (8.5-10.1) L Phosphorus Level 5.9 MG/DL (2.5-4.9) H Magnesium Level 2.2 MG/DL (1.8-2.4) Total Bilirubin 0.5 MG/DL (0.2-1.0) Gamma Glutamyl Transpeptidase 37 U/L (5-85) Aspartate Amino Transf (AST/SGOT) 233 U/L (15-37) H Alanine Aminotransferase (ALT/SGPT) 66 U/L (12-78) Alkaline Phosphatase 61 U/L (46-116) Total Creatine Kinase 4131 U/L (26-308) H C-Reactive Protein, Quantitative 52.7 mg/dL (0.00-0.90) H Pro-B-Type Natriuretic Peptide 27525 pg/mL (0-125) H Total Protein 6.7 G/DL (6.4-8.2) Albumin 1.8 G/DL (3.4-5.0) L Globulin 4.9 g/dL Albumin/Globulin Ratio 0.4 (1.0-2.7) L Random Vancomycin Level 16.4 ug/mL Current Medications Medications (Trade) Dose Ordered Sig/Nancy Route PRN Reason Start Time Stop Time Status Last Admin Dose Admin Acetaminophen (Tylenol) 650 mg Q4H PRN ORAL fever 09/17/19 09:30 10/17/19 09:29 09/18/19 12:41 Albuterol/ Ipratropium (Albuterol/ Ipratropium) 3 ml Q4H PRN HHN Shortness of Breath 09/17/19 09:30 09/22/19 09:29 Allopurinol (Zyloprim) 200 mg DAILY GT 09/18/19 09:00 10/18/19 08:59 09/19/19 08:45 Chlorhexidine Gluconate (Jossy-Hex 2%) 1 applic DAILY@2000 TOPIC 09/18/19 20:00 12/17/19 19:59 09/18/19 20:00 Dextrose 1,000 ml @ 100 mls/hr Q10H IV 09/18/19 08:15 10/18/19 08:14 09/19/19 04:15 Dextrose (Dextrose 50%) 25 ml Q30M PRN IV Hypoglycemia 09/17/19 13:15 12/16/19 13:14 Dextrose (Dextrose 50%) 50 ml Q30M PRN IV Hypoglycemia 09/17/19 13:15 12/16/19 13:14 Heparin Sodium (Porcine) (Heparin 5000 units/ml) 5,000 units EVERY 12 HOURS SUBQ 09/17/19 21:00 11/01/19 20:59 09/18/19 20:38 Heparin Sodium/ Sodium Chloride (Heparin 1000 units/500ml Premix) 1,000 unit ONCE PRN IV picc line placement 09/18/19 12:15 09/20/19 12:14 Hydralazine HCl (Apresoline) 10 mg Q4H PRN IV For High Blood Pressure 09/17/19 16:15 12/16/19 16:14 Insulin Aspart (NovoLOG) Q6HR SUBQ 09/18/19 18:00 12/16/19 16:29 09/19/19 06:35 Levetiracetam (Keppra) 1,000 mg Q12HR GT 09/17/19 21:00 10/17/19 20:59 09/19/19 08:44 Lorazepam (Ativan 2mg/ml 1ml) 2 mg Q2H PRN IV For Anxiety 09/17/19 09:30 09/24/19 09:29 Meropenem 500 mg/ Sodium Chloride 55 ml @ 110 mls/hr Q24H IVPB 09/17/19 16:00 09/22/19 15:59 09/18/19 15:15 Midodrine (Pro-Amatine) 10 mg Q8HR GT 09/17/19 14:30 12/16/19 14:29 09/19/19 06:00 Morphine Sulfate (Morphine Sulfate) 4 mg Q4H PRN IVP Severe Pain (Pain Scale 7-10) 09/17/19 09:30 09/24/19 09:29 Norepinephrine Bitartrate 4 mg/ Dextrose 250 ml @ 0 mls/hr Q24H IV 09/17/19 15:30 10/17/19 15:23 09/19/19 09:13 Ondansetron HCl (Zofran) 4 mg Q6H PRN IVP Nausea & Vomiting 09/17/19 09:30 10/17/19 09:29 Pantoprazole (Protonix) 40 mg EVERY 12 HOURS IVP 09/17/19 10:00 10/17/19 09:59 09/19/19 08:45 Polyethylene Glycol (Miralax) 17 gm DAILYPRN PRN ORAL Constipation 09/17/19 09:30 10/17/19 09:29 Vancomycin HCl (Vanco rx to dose) 1 ea DAILY PRN MISC pharmacy to dose 09/17/19 10:00 10/17/19 09:59 Vancomycin HCl 1 gm/Dextrose 275 ml @ 183.708 mls/hr ONCE IVPB 09/19/19 13:00 09/19/19 15:00 Deng Ricci MD September 19, 2019 10:30
--- NOTE | 2019-09-19 11:56 | Nephrology Progress Note ---
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, Functional quadriplegia History of DVT ECF resident Full code Plan COVID test positive Transfused 2 units of packed RBCs Renal parameters worsening Hydration with D5W Keep blood pressure and blood sugar in check Monitor renal parameters Avoid nephrotoxic's Pulmonary support and toilet Poor prognosis Discussed with RN Patient remain full code Patient may need hemodialysis soon will discuss with the daughter Subjective ROS Limited/Unobtainable: Yes Objective Objective Last 24 Hour Vital Signs Date Time Temp Pulse Resp B/P (MAP) Pulse Ox O2 Delivery O2 Flow Rate FiO2 09/19/19 11:30 113 24 168/46 (86) 96 09/19/19 11:30 168/46 09/19/19 11:00 118/60 09/19/19 11:00 112 21 118/60 (79) 96 09/19/19 10:47 113 28 100 09/19/19 10:30 110 25 122/60 (80) 98 09/19/19 10:15 110 21 124/100 (108) 97 09/19/19 10:00 108 26 158/57 (90) 98 09/19/19 10:00 158/57 09/19/19 09:30 108 26 135/114 (121) 98 09/19/19 09:13 124/53 09/19/19 09:00 Mechanical Ventilator 09/19/19 09:00 103 23 121/56 (77) 99 09/19/19 09:00 121/56 09/19/19 08:30 98.6 99 20 105/38 (60) 98 09/19/19 08:00 104 09/19/19 08:00 124/53 09/19/19 08:00 102 20 124/53 (76) 98 09/19/19 07:30 105 22 122/46 (71) 97 09/19/19 07:15 106 24 136/18 (57) 94 5/16/20 07:06 104 27 100 09/19/19 07:00 122/64 09/19/19 07:00 104 25 122/52 (75) 97 09/19/19 06:54 104 56 09/19/19 06:45 105 24 131/47 (75) 97 09/19/19 06:30 102 24 130/52 (78) 98 09/19/19 06:15 103 21 131/50 (77) 98 09/19/19 06:00 102 24 121/52 (75) 98 09/19/19 06:00 131/46 09/19/19 05:45 100 19 112/42 (65) 99 09/19/19 05:30 100 20 116/56 (76) 98 09/19/19 05:15 104 22 127/36 (66) 98 09/19/19 05:00 106 24 127/61 (83) 98 09/19/19 05:00 130/56 09/19/19 04:45 106 24 124/53 (76) 97 09/19/19 04:30 99.5 110 22 136/40 (72) 98 09/19/19 04:15 109 25 135/54 (81) 99 09/19/19 04:00 107 09/19/19 04:00 Mechanical Ventilator 09/19/19 04:00 135/54 09/19/19 04:00 104 21 122/65 (84) 99 09/19/19 03:45 105 22 104/40 (61) 09/19/19 03:39 99 18 100 09/19/19 03:30 106 20 135/44 (74) 09/19/19 03:15 99 23 131/96 (108) 100 09/19/19 03:09 102/47 09/19/19 03:00 96 22 102/47 (65) 78 09/19/19 02:45 95 18 100/64 (76) 99 09/19/19 02:30 91 18 103/39 (60) 98 09/19/19 02:15 100 19 136/50 (78) 100 09/19/19 02:00 96 18 129/94 (106) 09/19/19 02:00 131/96 09/19/19 01:45 91 17 113/60 (77) 09/19/19 01:30 89 17 115/48 (70) 09/19/19 01:15 90 16 116/35 (62) 99 09/19/19 01:00 116/54 09/19/19 01:00 89 17 110/46 (67) 99 09/19/19 00:45 92 17 103/53 (70) 09/19/19 00:30 91 17 102/49 (66) 100 09/19/19 00:15 92 17 97/46 (63) 98 09/19/19 00:00 87 09/19/19 00:00 98.8 90 17 95/37 (56) 98 09/19/19 00:00 Mechanical Ventilator 09/19/19 00:00 102/49 09/18/19 23:45 93 17 101/48 (65) 98 09/18/19 23:30 91 17 91/31 (51) 98 09/18/19 23:18 93 18 100 09/18/19 23:15 95 17 128/59 (82) 100 09/18/19 23:00 90 18 119/36 (63) 100 09/18/19 23:00 98/45 09/18/19 22:45 91 18 110/56 (74) 98 09/18/19 22:30 93 18 94/81 (85) 99 09/18/19 22:15 90 16 81/44 (56) 93 09/18/19 22:09 88 16 77/47 (57) 92 09/18/19 22:00 90 16 74/37 (49) 92 09/18/19 22:00 90 16 74/37 (49) 92 09/18/19 21:58 74/30 09/18/19 21:49 89 16 75/37 (50) 93 09/18/19 21:45 91 16 84/44 (57) 93 09/18/19 21:43 91 16 76/32 (47) 92 09/18/19 21:37 90 16 76/30 (45) 93 09/18/19 21:30 91 16 83/39 (54) 93 09/18/19 21:15 96 22 90/41 (57) 95 09/18/19 21:07 92 16 100 09/18/19 21:03 92 18 81/39 (53) 95 09/18/19 21:00 91 16 81/41 (54) 94 09/18/19 20:45 92 16 72/36 (48) 94 09/18/19 20:30 93 17 84/47 (59) 94 09/18/19 20:15 95 17 79/46 (57) 95 09/18/19 20:00 98.5 94 19 84/36 (52) 94 09/18/19 20:00 100 09/18/19 20:00 Mechanical Ventilator 09/18/19 19:45 97 18 82/40 (54) 95 09/18/19 19:30 96 20 95/46 (62) 95 09/18/19 19:15 97 19 95/35 (55) 94 09/18/19 19:00 97 19 95/35 (55) 94 09/18/19 18:59 96 16 100 09/18/19 18:00 100 17 64/43 (50) 92 09/18/19 17:00 104 21 93/45 (61) 93 09/18/19 16:00 106 21 82/36 (51) 92 09/18/19 16:00 Mechanical Ventilator 09/18/19 15:35 104 09/18/19 15:15 99.5 09/18/19 15:10 107 20 100 09/18/19 15:00 109 23 90/40 (57) 93 09/18/19 14:00 110 21 90/40 (57) 92 09/18/19 13:15 101.9 09/18/19 13:11 101.9 09/18/19 13:00 112 22 100/43 (62) 90 09/18/19 12:42 102.4 09/18/19 12:00 117 21 108/44 (65) 91 09/18/19 12:00 Mechanical Ventilator Intake and Output 09/18/19 09/19/19 19:00 07:00 Intake Total 1248 ml 2188.95 ml Output Total 650 ml 240 ml Balance 598 ml 1948.95 ml Intake Free Water 50 ml 150 ml IV Total 978 ml 1418.95 ml Tube Feeding 120 ml 120 ml Blood Product 500 ml Other 100 ml Output Urine Total 50 ml 40 ml Stool Total 600 ml 200 ml Laboratory Tests 09/19/19 04:00: Arterial Blood pH 7.292L, Arterial Blood Partial Pressure CO2 20.8*L, Arterial Blood Partial Pressure O2 71.8L, Arterial Blood HCO3 9.8*L, Arterial Blood Oxygen Saturation 92.2L, Arterial Blood Base Excess -14.9*L, Gareth Test Positive 09/19/19 07:15: White Blood Count 9.4#, Red Blood Count 3.12L, Hemoglobin 9.7#L, Hematocrit 28.0 #L, Mean Corpuscular Volume 90, Mean Corpuscular Hemoglobin 31.2H, Mean Corpuscular Hemoglobin Concent 34.8, Red Cell Distribution Width 13.7, Platelet Count 51L, Mean Platelet Volume 9.3, Neutrophils (%) (Auto) , Lymphocytes (%) ( Auto) , Monocytes (%) (Auto) , Eosinophils (%) (Auto) , Basophils (%) (Auto) , Differential Total Cells Counted 100, Neutrophils % (Manual) 64, Lymphocytes % ( Manual) 14L, Monocytes % (Manual) 10, Eosinophils % (Manual) 0, Basophils % ( Manual) 0, Band Neutrophils 12H, Platelet Estimate DecreasedL, Platelet Morphology Normal, Red Blood Cell Morphology Normal, Sodium Level 137, Potassium Level 4.3, Chloride Level 104, Carbon Dioxide Level 13L, Anion Gap 20H , Blood Urea Nitrogen 131H, Creatinine 6.8H, Estimat Glomerular Filtration Rate 7.0, Glucose Level 423#H, Uric Acid 8.9H, Calcium Level 6.3L, Phosphorus Level 5.9H, Magnesium Level 2.2, Total Bilirubin 0.5, Gamma Glutamyl Transpeptidase 37 , Aspartate Amino Transf (AST/SGOT) 233H, Alanine Aminotransferase (ALT/SGPT) 66 , Alkaline Phosphatase 61, Total Creatine Kinase 4131H, C-Reactive Protein, Quantitative 52.7H, Pro-B-Type Natriuretic Peptide [id number], Total Protein 6.7, Albumin 1.8L, Globulin 4.9, Albumin/Globulin Ratio 0.4L, Random Vancomycin Level 16.4 Height (Feet): 5 Height (Inches): 6.00 Weight (Pounds): 200 General Appearance: no apparent distress, lethargic EENT: other - Intubated on ventilator Cardiovascular: tachycardia Respiratory/Chest: decreased breath sounds Abdomen: distended Estevan Orozco MD September 19, 2019 11:56
[2019-09-19] MEDS ORDERED: Sodium Citrate 30ml GT SCH (12:00)
--- NOTE | 2019-09-19 12:33 | Diagnostic Imaging Report ---
EXAM: XR Chest, 1 View CLINICAL HISTORY: DYSPNEA TECHNIQUE: Frontal view of the chest. COMPARISON: Chest radiograph on 09/18/2019 FINDINGS: Hardware: Endotracheal tube terminates in the region of the mid thoracic trachea. Right internal jugular central venous catheter terminates near the junction of the SVC and right atrium. Lungs/pleura: Slightly increased patchy opacity/consolidation throughout the right lung and predominantly in the left mid and lower lung. Probable small bilateral pleural effusions. Heart/mediastinum: Atherosclerotic calcifications of the aorta. No cardiomegaly. Soft tissues: Unremarkable. Bones: No acute fracture. Upper abdomen: Normal. IMPRESSION: 1. Endotracheal tube terminates in the region of the mid thoracic trachea. Right internal jugular central venous catheter terminates near the junction of the SVC and right atrium. 2. Slightly increased patchy opacity/consolidation throughout the right lung and predominantly in the left mid and lower lung. Probable small bilateral pleural effusions.
[2019-09-19] MEDS ORDERED: Vancomycin 1gm in D5W 275ml IVPB SCH (13:00)
[2019-09-19] MEDS: Renvela 800mg Pkt GT SCH ×2 (13:04→21:34)
[2019-09-19] MEDS ORDERED: 1/2 NS 1000ml IV ONE (14:10)
[2019-09-19] MEDS ORDERED: NS 275ml ONE (14:10)
[2019-09-19] MEDS ORDERED: D5W 275ml ONE (14:10)
[2019-09-19] MEDS ORDERED: D5W 550ml IV ONE (14:10)
[2019-09-19] MEDS ORDERED: NS 500ML ONE (14:10)
--- NOTE | 2019-09-19 14:13 | Internal Med Progress Note ---
Subjective Physician Name Lane Woodson Attending Physician Saira Lazcano MD Current Medications Medications (Trade) Dose Ordered Sig/Nancy Route PRN Reason Start Time Stop Time Status Last Admin Dose Admin Acetaminophen (Tylenol) 650 mg Q4H PRN ORAL fever 09/17/19 09:30 10/17/19 09:29 09/19/19 12:46 Albuterol/ Ipratropium (Albuterol/ Ipratropium) 3 ml Q4H PRN HHN Shortness of Breath 09/17/19 09:30 09/22/19 09:29 Allopurinol (allopurinoL) 300 mg DAILY GT 09/20/19 09:00 10/18/19 08:59 Chlorhexidine Gluconate (Jossy-Hex 2%) 1 applic DAILY@2000 TOPIC 09/18/19 20:00 12/17/19 19:59 09/18/19 20:00 Dextrose 1,000 ml @ 100 mls/hr Q10H IV 09/18/19 08:15 10/18/19 08:14 09/19/19 13:04 Dextrose (Dextrose 50%) 25 ml Q30M PRN IV Hypoglycemia 09/17/19 13:15 12/16/19 13:14 Dextrose (Dextrose 50%) 50 ml Q30M PRN IV Hypoglycemia 09/17/19 13:15 12/16/19 13:14 Heparin Sodium (Porcine) (Heparin 5000 units/ml) 5,000 units EVERY 12 HOURS SUBQ 09/17/19 21:00 11/01/19 20:59 09/18/19 20:38 Heparin Sodium/ Sodium Chloride (Heparin 1000 units/500ml Premix) 1,000 unit ONCE PRN IV picc line placement 09/18/19 12:15 09/20/19 12:14 Hydralazine HCl (Apresoline) 10 mg Q4H PRN IV For High Blood Pressure 09/17/19 16:15 12/16/19 16:14 Insulin Aspart (NovoLOG) Q6HR SUBQ 09/18/19 18:00 12/16/19 16:29 09/19/19 12:45 Levetiracetam (Keppra) 1,000 mg Q12HR GT 09/17/19 21:00 10/17/19 20:59 09/19/19 08:44 Lorazepam (Ativan 2mg/ml 1ml) 2 mg Q2H PRN IV For Anxiety 09/17/19 09:30 09/24/19 09:29 Meropenem 500 mg/ Sodium Chloride 55 ml @ 110 mls/hr Q24H IVPB 09/17/19 16:00 09/22/19 15:59 09/18/19 15:15 Midodrine (Pro-Amatine) 10 mg Q8HR GT 09/17/19 14:30 12/16/19 14:29 09/19/19 12:46 Morphine Sulfate (Morphine Sulfate) 4 mg Q4H PRN IVP Severe Pain (Pain Scale 7-10) 09/17/19 09:30 09/24/19 09:29 Norepinephrine Bitartrate 4 mg/ Dextrose 250 ml @ 0 mls/hr Q24H IV 09/17/19 15:30 10/17/19 15:23 09/19/19 09:13 Ondansetron HCl (Zofran) 4 mg Q6H PRN IVP Nausea & Vomiting 09/17/19 09:30 10/17/19 09:29 Pantoprazole (Protonix) 40 mg EVERY 12 HOURS IVP 09/17/19 10:00 10/17/19 09:59 09/19/19 08:45 Polyethylene Glycol (Miralax) 17 gm DAILYPRN PRN ORAL Constipation 09/17/19 09:30 10/17/19 09:29 Sevelamer Carbonate (Renvela) 800 mg Q8HR GT 09/19/19 14:00 12/18/19 13:59 09/19/19 13:04 Sodium Citrate (Bicitra) 30 ml EVERY 6 HOURS GT 09/19/19 18:00 10/19/19 17:59 Vancomycin HCl (Vanco rx to dose) 1 ea DAILY PRN MISC pharmacy to dose 09/17/19 10:00 10/17/19 09:59 Vancomycin HCl 1 gm/Dextrose 275 ml @ 183.708 mls/hr ONCE IVPB 09/19/19 13:00 09/19/19 15:00 09/19/19 12:46 Allergies: Coded Allergies: METOCLOPRAMIDE (Verified Allergy, Unknown, 03/10/18) extrapyramidal Sx Subjective Intubated, in ICU, on COVID -19 isolation room, Hgb: 9.7 post transfusion, PLT: 51 Objective Last Vital Signs Date Time Temp Pulse Resp B/P (MAP) Pulse Ox O2 Delivery O2 Flow Rate FiO2 09/19/19 13:30 107 32 124/64 (84) 96 09/19/19 12:00 Mechanical Ventilator 09/19/19 12:00 101.6 09/19/19 11:18 100 09/17/19 10:20 15.0 Laboratory Tests Test 09/19/19 04:00 09/19/19 07:15 Arterial Blood pH 7.292 (7.350-7.450) Arterial Blood Partial Pressure CO2 20.8 mmHg (35.0-45.0) *L Arterial Blood Partial Pressure O2 71.8 mmHg (75.0-100.0) L Arterial Blood HCO3 9.8 mmol/L (22.0-26.0) *L Arterial Blood Oxygen Saturation 92.2 % (95-100) L Arterial Blood Base Excess -14.9 (-2-2) *L Gareth Test Positive White Blood Count 9.4 K/UL (4.8-10.8) # Red Blood Count 3.12 M/UL (4.20-5.40) L Hemoglobin 9.7 G/DL (12.0-16.0) #L Hematocrit 28.0 % (37.0-47.0) #L Mean Corpuscular Volume 90 FL (80-99) Mean Corpuscular Hemoglobin 31.2 PG (27.0-31.0) H Mean Corpuscular Hemoglobin Concent 34.8 G/DL (32.0-36.0) Red Cell Distribution Width 13.7 % (11.6-14.8) Platelet Count 51 K/UL (150-450) L Mean Platelet Volume 9.3 FL (6.5-10.1) Neutrophils (%) (Auto) % (45.0-75.0) Lymphocytes (%) (Auto) % (20.0-45.0) Monocytes (%) (Auto) % (1.0-10.0) Eosinophils (%) (Auto) % (0.0-3.0) Basophils (%) (Auto) % (0.0-2.0) Differential Total Cells Counted 100 Neutrophils % (Manual) 64 % (45-75) Lymphocytes % (Manual) 14 % (20-45) L Monocytes % (Manual) 10 % (1-10) Eosinophils % (Manual) 0 % (0-3) Basophils % (Manual) 0 % (0-2) Band Neutrophils 12 % (0-8) H Platelet Estimate Decreased L Platelet Morphology Normal Red Blood Cell Morphology Normal Sodium Level 137 MMOL/L (136-145) Potassium Level 4.3 MMOL/L (3.5-5.1) Chloride Level 104 MMOL/L (98-107) Carbon Dioxide Level 13 MMOL/L (21-32) L Anion Gap 20 mmol/L (5-15) H Blood Urea Nitrogen 131 mg/dL (7-18) H Creatinine 6.8 MG/DL (0.55-1.30) H Estimat Glomerular Filtration Rate 7.0 mL/min (>60) Glucose Level 423 MG/DL (74-106) #H Uric Acid 8.9 MG/DL (2.6-7.2) H Calcium Level 6.3 MG/DL (8.5-10.1) L Phosphorus Level 5.9 MG/DL (2.5-4.9) H Magnesium Level 2.2 MG/DL (1.8-2.4) Total Bilirubin 0.5 MG/DL (0.2-1.0) Gamma Glutamyl Transpeptidase 37 U/L (5-85) Aspartate Amino Transf (AST/SGOT) 233 U/L (15-37) H Alanine Aminotransferase (ALT/SGPT) 66 U/L (12-78) Alkaline Phosphatase 61 U/L (46-116) Total Creatine Kinase 4131 U/L (26-308) H C-Reactive Protein, Quantitative 52.7 mg/dL (0.00-0.90) H Pro-B-Type Natriuretic Peptide 90272 pg/mL (0-125) H Total Protein 6.7 G/DL (6.4-8.2) Albumin 1.8 G/DL (3.4-5.0) L Globulin 4.9 g/dL Albumin/Globulin Ratio 0.4 (1.0-2.7) L Random Vancomycin Level 16.4 ug/mL Microbiology Date/Time Source Procedure Growth Status 09/17/19 05:30 Blood Blood Culture - Preliminary NO GROWTH AFTER 24 HOURS Resulted 09/17/19 05:20 Blood Blood Culture - Preliminary NO GROWTH AFTER 24 HOURS Resulted 09/17/19 07:43 Nasopharynx Coronavirus COVID-19 PCR (YANA) - Final Complete 09/17/19 05:30 Nasal Nares MRSA Culture - Final Staphylococcus Aureus - Mrsa Complete 09/17/19 10:50 Stool Clostridium difficile Toxin Assay - Final Complete 09/17/19 16:00 Urine,Clean Catch Urine Culture - Final Enterococcus Avium Complete 09/17/19 05:44 Urine,Clean Catch Urine Culture - Final Enterococcus Avium Complete 09/17/19 05:30 Rectum - Final NO CARBAPENEM-RESISTANT ENTEROBACTERI... Complete 09/17/19 05:30 Rectum VRE Culture - Final Enterococcus Faecium - Vre Complete Intake and Output 09/18/19 09/19/19 19:00 07:00 Intake Total 1248 ml 2188.95 ml Output Total 650 ml 240 ml Balance 598 ml 1948.95 ml Intake Free Water 50 ml 150 ml IV Total 978 ml 1418.95 ml Tube Feeding 120 ml 120 ml Blood Product 500 ml Other 100 ml Output Urine Total 50 ml 40 ml Stool Total 600 ml 200 ml Objective General: Intubated, not responsive, open eyes, Deferred due to COVID-19 infection Assessment/Plan Assessment/Plan Septic Shock- off pressors now Bilateral Pneumonia- COVID-19 infection Acute Hypoxemia respiratory failure s/p intubation 09/16- Acute Enterococcus UTI leukocytosis> leukopenia Thrombocytopenia. Seizure (witnessed by EMS) Anemia OREN on CKD Elevated LFTs Hx of Proteus UTI 04/2019 CVA w/ residual R side weakness pancreatitis 04/2019 sp L AKA Dm2 DVT COPD Dementia Dysphagia s/p GT vegetative state non verbal seizure disorder [place] resident ([facility]) Plan: -Continue empiric IV Vancomycin and Meropenem IV -Monitor laboratories and cultures -COVID19 isolation precaution -ETT/GT/ICU care -aspiration precautions -Trend CXR and inflammatory markers -Full code -DVT prophylaxis: Hold Heparin subcu due to Thrombocytopenia, SCD Only. -Right transjugular triple-lumen central venous catheter. Lane Woodson MD September 19, 2019 14:13
[2019-09-19] MEDS: Meropenem 500 MG in NS 55 ML IVPB SCH (15:18)
[2019-09-19] MEDS: Sodium Citrate 30ml GT SCH ×2 (17:47→23:33)
--- NOTE | 2019-09-19 18:00 | Cardiology Progress Note ---
Assessment/Plan Problem List: (1) Acute on chronic renal failure (2) Diabetes (3) Acute respiratory failure (4) Type 2 OR (myocardial infarction) (5) UTI (urinary tract infection) (6) Anemia in CKD (chronic kidney disease) Status Narrative Pt w/ COVID 19 pneumonia, respiratory failure. Anemia - s/p transfusion Thrombocytopenia , ? due to covid hypotension, on pressors Mild troponin elevation, c/w demand ischemia. Acute on chronic renal failure Assessment/Plan Continue iv norepi to maintain SBP > 90/ mean .60. Wean as tolerated Vent support Transfuse PRBC to maintain Hg > 7. ? eval for gi bleed Monitor plts Consider repeat ECHO (initial was technically limited) when out of covid isolation Subjective ROS Limited/Unobtainable: Yes Subjective Cardiology for Dr. Grimes Pt intubated, sedated Objective Last 24 Hour Vital Signs Date Time Temp Pulse Resp B/P (MAP) Pulse Ox O2 Delivery O2 Flow Rate FiO2 09/19/19 17:00 105 29 98/67 (77) 96 09/19/19 16:46 109/33 09/19/19 16:30 107 30 109/33 (58) 94 09/19/19 16:00 105 27 114/58 (76) 96 09/19/19 16:00 108 09/19/19 16:00 Mechanical Ventilator 09/19/19 15:30 107 31 131/47 (75) 95 09/19/19 15:15 108 31 97/25 (49) 95 09/19/19 14:53 112 26 100 09/19/19 14:30 113 33 140/102 (115) 96 09/19/19 14:00 112 32 140/84 (102) 96 09/19/19 13:30 107 32 124/64 (84) 96 09/19/19 13:30 124/64 09/19/19 13:16 101.5 09/19/19 13:00 113 32 126/48 (74) 96 09/19/19 12:30 113 32 118/35 (62) 95 09/19/19 12:30 118/35 09/19/19 12:00 Mechanical Ventilator 09/19/19 12:00 101.6 114 29 139/65 (89) 93 09/19/19 12:00 112 09/19/19 11:30 113 24 168/46 (86) 96 09/19/19 11:30 168/46 09/19/19 11:18 100 09/19/19 11:00 118/60 09/19/19 11:00 112 21 118/60 (79) 96 09/19/19 10:47 113 28 100 09/19/19 10:30 110 25 122/60 (80) 98 09/19/19 10:15 110 21 124/100 (108) 97 09/19/19 10:00 108 26 158/57 (90) 98 09/19/19 10:00 158/57 09/19/19 09:30 108 26 135/114 (121) 98 09/19/19 09:13 124/53 09/19/19 09:00 Mechanical Ventilator 09/19/19 09:00 103 23 121/56 (77) 99 09/19/19 09:00 121/56 09/19/19 08:30 98.6 99 20 105/38 (60) 98 09/19/19 08:00 104 09/19/19 08:00 124/53 09/19/19 08:00 102 20 124/53 (76) 98 09/19/19 07:30 105 22 122/46 (71) 97 09/19/19 07:15 106 24 136/18 (57) 94 09/19/19 07:06 104 27 100 09/19/19 07:00 122/64 09/19/19 07:00 104 25 122/52 (75) 97 09/19/19 06:54 104 56 09/19/19 06:45 105 24 131/47 (75) 97 09/19/19 06:30 102 24 130/52 (78) 98 09/19/19 06:15 103 21 131/50 (77) 98 09/19/19 06:00 102 24 121/52 (75) 98 09/19/19 06:00 131/46 09/19/19 05:45 100 19 112/42 (65) 99 09/19/19 05:30 100 20 116/56 (76) 98 09/19/19 05:15 104 22 127/36 (66) 98 09/19/19 05:00 106 24 127/61 (83) 98 09/19/19 05:00 130/56 09/19/19 04:45 106 24 124/53 (76) 97 09/19/19 04:30 99.5 110 22 136/40 (72) 98 09/19/19 04:15 109 25 135/54 (81) 99 09/19/19 04:00 107 09/19/19 04:00 Mechanical Ventilator 09/19/19 04:00 135/54 09/19/19 04:00 104 21 122/65 (84) 99 09/19/19 03:45 105 22 104/40 (61) 09/19/19 03:39 99 18 100 09/19/19 03:30 106 20 135/44 (74) 09/19/19 03:15 99 23 131/96 (108) 100 09/19/19 03:09 102/47 09/19/19 03:00 96 22 102/47 (65) 78 09/19/19 02:45 95 18 100/64 (76) 99 09/19/19 02:30 91 18 103/39 (60) 98 09/19/19 02:15 100 19 136/50 (78) 100 09/19/19 02:00 96 18 129/94 (106) 09/19/19 02:00 131/96 09/19/19 01:45 91 17 113/60 (77) 09/19/19 01:30 89 17 115/48 (70) 09/19/19 01:15 90 16 116/35 (62) 99 09/19/19 01:00 116/54 09/19/19 01:00 89 17 110/46 (67) 99 09/19/19 00:45 92 17 103/53 (70) 09/19/19 00:30 91 17 102/49 (66) 100 09/19/19 00:15 92 17 97/46 (63) 98 09/19/19 00:00 87 09/19/19 00:00 98.8 90 17 95/37 (56) 98 09/19/19 00:00 Mechanical Ventilator 09/19/19 00:00 102/49 09/18/19 23:45 93 17 101/48 (65) 98 09/18/19 23:30 91 17 91/31 (51) 98 09/18/19 23:18 93 18 100 09/18/19 23:15 95 17 128/59 (82) 100 09/18/19 23:00 90 18 119/36 (63) 100 09/18/19 23:00 98/45 09/18/19 22:45 91 18 110/56 (74) 98 09/18/19 22:30 93 18 94/81 (85) 99 09/18/19 22:15 90 16 81/44 (56) 93 09/18/19 22:09 88 16 77/47 (57) 92 09/18/19 22:00 90 16 74/37 (49) 92 09/18/19 22:00 90 16 74/37 (49) 92 09/18/19 21:58 74/30 09/18/19 21:49 89 16 75/37 (50) 93 09/18/19 21:45 91 16 84/44 (57) 93 09/18/19 21:43 91 16 76/32 (47) 92 09/18/19 21:37 90 16 76/30 (45) 93 09/18/19 21:30 91 16 83/39 (54) 93 09/18/19 21:15 96 22 90/41 (57) 95 09/18/19 21:07 92 16 100 09/18/19 21:03 92 18 81/39 (53) 95 09/18/19 21:00 91 16 81/41 (54) 94 09/18/19 20:45 92 16 72/36 (48) 94 09/18/19 20:30 93 17 84/47 (59) 94 09/18/19 20:15 95 17 79/46 (57) 95 09/18/19 20:00 98.5 94 19 84/36 (52) 94 09/18/19 20:00 100 09/18/19 20:00 Mechanical Ventilator 09/18/19 19:45 97 18 82/40 (54) 95 09/18/19 19:30 96 20 95/46 (62) 95 09/18/19 19:15 97 19 95/35 (55) 94 09/18/19 19:00 97 19 95/35 (55) 94 09/18/19 18:59 96 16 100 09/18/19 18:00 100 17 64/43 (50) 92 General Appearance: on vent - exam deferred- covid isolation Intake and Output 09/18/19 09/19/19 19:00 07:00 Intake Total 1248 ml 2188.95 ml Output Total 650 ml 240 ml Balance 598 ml 1948.95 ml Intake Free Water 50 ml 150 ml IV Total 978 ml 1418.95 ml Tube Feeding 120 ml 120 ml Blood Product 500 ml Other 100 ml Output Urine Total 50 ml 40 ml Stool Total 600 ml 200 ml Laboratory Tests Test 09/19/19 04:00 09/19/19 07:15 Arterial Blood pH 7.292 (7.350-7.450) Arterial Blood Partial Pressure CO2 20.8 mmHg (35.0-45.0) *L Arterial Blood Partial Pressure O2 71.8 mmHg (75.0-100.0) L Arterial Blood HCO3 9.8 mmol/L (22.0-26.0) *L Arterial Blood Oxygen Saturation 92.2 % (95-100) L Arterial Blood Base Excess -14.9 (-2-2) *L Gaerth Test Positive White Blood Count 9.4 K/UL (4.8-10.8) # Red Blood Count 3.12 M/UL (4.20-5.40) L Hemoglobin 9.7 G/DL (12.0-16.0) #L Hematocrit 28.0 % (37.0-47.0) #L Mean Corpuscular Volume 90 FL (80-99) Mean Corpuscular Hemoglobin 31.2 PG (27.0-31.0) H Mean Corpuscular Hemoglobin Concent 34.8 G/DL (32.0-36.0) Red Cell Distribution Width 13.7 % (11.6-14.8) Platelet Count 51 K/UL (150-450) L Mean Platelet Volume 9.3 FL (6.5-10.1) Neutrophils (%) (Auto) % (45.0-75.0) Lymphocytes (%) (Auto) % (20.0-45.0) Monocytes (%) (Auto) % (1.0-10.0) Eosinophils (%) (Auto) % (0.0-3.0) Basophils (%) (Auto) % (0.0-2.0) Differential Total Cells Counted 100 Neutrophils % (Manual) 64 % (45-75) Lymphocytes % (Manual) 14 % (20-45) L Monocytes % (Manual) 10 % (1-10) Eosinophils % (Manual) 0 % (0-3) Basophils % (Manual) 0 % (0-2) Band Neutrophils 12 % (0-8) H Platelet Estimate Decreased L Platelet Morphology Normal Red Blood Cell Morphology Normal Sodium Level 137 MMOL/L (136-145) Potassium Level 4.3 MMOL/L (3.5-5.1) Chloride Level 104 MMOL/L (98-107) Carbon Dioxide Level 13 MMOL/L (21-32) L Anion Gap 20 mmol/L (5-15) H Blood Urea Nitrogen 131 mg/dL (7-18) H Creatinine 6.8 MG/DL (0.55-1.30) H Estimat Glomerular Filtration Rate 7.0 mL/min (>60) Glucose Level 423 MG/DL (74-106) #H Uric Acid 8.9 MG/DL (2.6-7.2) H Calcium Level 6.3 MG/DL (8.5-10.1) L Phosphorus Level 5.9 MG/DL (2.5-4.9) H Magnesium Level 2.2 MG/DL (1.8-2.4) Total Bilirubin 0.5 MG/DL (0.2-1.0) Gamma Glutamyl Transpeptidase 37 U/L (5-85) Aspartate Amino Transf (AST/SGOT) 233 U/L (15-37) H Alanine Aminotransferase (ALT/SGPT) 66 U/L (12-78) Alkaline Phosphatase 61 U/L (46-116) Total Creatine Kinase 4131 U/L (26-308) H C-Reactive Protein, Quantitative 52.7 mg/dL (0.00-0.90) H Pro-B-Type Natriuretic Peptide 79485 pg/mL (0-125) H Total Protein 6.7 G/DL (6.4-8.2) Albumin 1.8 G/DL (3.4-5.0) L Globulin 4.9 g/dL Albumin/Globulin Ratio 0.4 (1.0-2.7) L Random Vancomycin Level 16.4 ug/mL Microbiology Date/Time Source Procedure Growth Status 09/17/19 05:30 Blood Blood Culture - Preliminary NO GROWTH AFTER 24 HOURS Resulted 09/17/19 05:20 Blood Blood Culture - Preliminary NO GROWTH AFTER 24 HOURS Resulted 09/17/19 07:43 Nasopharynx Coronavirus COVID-19 PCR (YANA) - Final Complete 09/17/19 05:30 Nasal Nares MRSA Culture - Final Staphylococcus Aureus - Mrsa Complete 09/17/19 10:50 Stool Clostridium difficile Toxin Assay - Final Complete 09/17/19 16:00 Urine,Clean Catch Urine Culture - Final Enterococcus Avium Complete 09/17/19 05:44 Urine,Clean Catch Urine Culture - Final Enterococcus Avium Complete 09/17/19 05:30 Rectum - Final NO CARBAPENEM-RESISTANT ENTEROBACTERI... Complete 09/17/19 05:30 Rectum VRE Culture - Final Enterococcus Faecium - Vre Complete Kamilla Evans MD September 19, 2019 18:00
--- NOTE | 2019-09-19 19:18 | NUR ---
HAND-OFF: Report given to Gal SMITH. Endorsed all plan of care to Gal SMITH
--- NOTE | 2019-09-19 19:40 | NUR ---
NURSE NOTES: PATIENT ASLEEP STATUS, ON ETT TO VENT AV16/TV700/FIO2 100%/PEEP10, O2 SATURATION OVER 93% NOTED, ABDOMEN DISTENDED, NO N/V, G TUBE INTACT AND PATENT, KEPT HOB 30 DEGREES AND ASPIRATION PRECAUTION, F/C INTACT AND PATENT, OLIGURIA NOTED, RECTAL TUBE INTACT, TLC TO RIGHT IJ, INTACT AND PATENT, ONGOING LEVOPHED 8MCG/MIN AND IV FLUID D5W AT 100ML/HR VIA TLC, 2 POINT SOFT RESTRAINTS STATUS, ON P200 BED, LOWER BED POSITION, ON BED ALARM AND LOCKED, WILL CONTINUE TO MONITOR.
[2019-09-19] MEDS: Dyna-Hex 2% Top Sol 2oz TOPIC SCH (20:31)
--- NOTE | 2019-09-19 20:32 | NUR ---
RESPIRATORY NOTE: Received patient with ETT of 7.5mm at 23cm at the lip. Vent settings are current with AC 16, Vt 700, FiO2 of 100%, and PEEP of 10. Patient currently stating at 96%. Alarms are on and audible. Ambu bag at bedside. Will continue to monitor throughout the night.
--- NOTE | 2019-09-19 22:05 | NUR ---
NURSE NOTES: REPOSITIONED, ORAL CARE WAS DONE.
[2019-09-20] VITALS (70 sets, daily range): BP systolic 102–159; BP diastolic 34–111
[2019-09-20] MEDS: NovoLOG Insulin Flexpen SUBQ SCH ×5 (00:08→23:56)
--- NOTE | 2019-09-20 00:10 | NUR ---
NURSE NOTES: LE: HELD FEEDING DUE TO RESIDUE OVER 100ML, SEEN GREENISH DISCHARGE, KEPT HOB 30DEGREES, WILL CONTINUE TO MONITOR.
--- NOTE | 2019-09-20 02:40 | NUR ---
NURSE NOTES: ONGOING LEVOPHED 2MCG/MIN VIA TLC, ASLEEP STATUS.
[2019-09-20] MEDS: LORazepam Inj 2mg/ml 1ml IV PRN ×2 (04:02→11:51)
--- NOTE | 2019-09-20 04:30 | NUR ---
NURSE NOTES: LE; PATIENT ANXIOUS STATUS, GIVEN ATIVAN 2MG BY IVP PRN ORDER AT 0402AM. PATIENT CALM STATUS AT THIS TIME.
--- NOTE | 2019-09-20 05:00 | NUR ---
NURSE NOTES: LE: MORNING CARE AND ORAL CARE WAS DONE.
[2019-09-20] MEDS: Renvela 800mg Pkt GT SCH ×3 (05:34→21:59)
[2019-09-20] MEDS: Midodrine 10mg tab GT SCH ×3 (05:34→21:59)
[2019-09-20] MEDS: Sodium Citrate 30ml GT SCH ×4 (05:34→21:59)
--- NOTE | 2019-09-20 06:40 | NUR ---
NURSE NOTES: LE; NO ACUTE DISTRESS NOTED AT THIS TIME.
--- NOTE | 2019-09-20 07:30 | NUR ---
HAND-OFF: Report given to LUIS WALKER.
--- NOTE | 2019-09-20 07:35 | NUR ---
NURSE NOTES: Report received from Gal Gilmore RN.Pt obtunded ,noted no resp distress orally intubated to Vent,ordered vent settings tolerated,no signs of discomfort presented, S-Tach on the monitor,GT clamped,Nepro feeding hold ,with high residual 120,skin warm and dry with IV to RT IJ TLC IVF D5W at 100 ml/hr,Levophed at 2mcg/kg/hr,SR up x2 HOB elevated bed lock in lowest position will continue with plans of care.
--- NOTE | 2019-09-20 08:18 | Pulmonolgy Critical Care Note ---
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 Functional quadriplegia PLAN OF CARE ICU care back on pressors IVF Midodrine for BP support SARS-CoV-2 by PCR 09/16 detected remains in isolation abx per ID UCX + Enterococci avium , BCX NGTD , C dif NGT vent support, pulmonary toilet, currently PEEP10, FiO2 100% fup with ABG and CXR, titrate settings if able strict aspiration precaution DVT prophylaxis CRP up to 52.7 - 09/18 G-tube feeding seizure precautions, continue Keppra s/p blood transfusion anemia w/up c/w anemia of chronic disease in this case anemia of chronic kidney disease ferritin above 2000 consider EPO - per nephro monitor renal parameters lytes ,correct electrolytes as needed, avoid nephrotoxic creat worse may need HD as per nephro trend LFT, likely due to shock liver BS management with SSI GI prophylaxis supportive care overall prognosis remains poor patient still full code case discussed and evaluated by supervising physician Critical Care - Objective Last 24 Hour Vital Signs Date Time Temp Pulse Resp B/P (MAP) Pulse Ox O2 Delivery O2 Flow Rate FiO2 09/20/19 07:15 115 23 100 09/20/19 07:00 115/49 09/20/19 07:00 96 24 115/49 (71) 97 09/20/19 06:30 98 24 09/20/19 06:30 98 24 120/46 (70) 100 09/20/19 06:00 97 22 110/40 (63) 99 09/20/19 06:00 110/40 09/20/19 05:30 100 23 102/39 (60) 97 09/20/19 05:00 123/47 09/20/19 05:00 110 30 123/47 (72) 09/20/19 04:30 107 24 123/46 (71) 95 09/20/19 04:00 Mechanical Ventilator 09/20/19 04:00 125/44 09/20/19 04:00 98.5 109 34 125/44 (71) 91 09/20/19 04:00 109 09/20/19 03:30 110 16 142/50 (80) 92 09/20/19 03:30 110 37 100 09/20/19 03:00 132/50 09/20/19 03:00 108 15 132/50 (77) 92 09/20/19 02:30 108 14 145/51 (82) 93 09/20/19 02:00 136/45 09/20/19 02:00 107 15 136/45 (75) 93 09/20/19 01:30 107 15 127/51 (76) 92 09/20/19 01:00 107 17 128/49 (75) 92 09/20/19 01:00 128/49 09/20/19 00:30 106 15 127/43 (71) 93 09/20/19 00:00 98.1 106 26 145/56 (85) 93 09/20/19 00:00 106 09/20/19 00:00 Mechanical Ventilator 09/20/19 00:00 145/56 09/19/19 23:30 107 26 133/43 (73) 93 09/19/19 23:00 134/46 09/19/19 23:00 107 27 134/46 (75) 93 09/19/19 22:51 107 28 100 09/19/19 22:30 107 28 129/51 (77) 93 09/19/19 22:00 107 28 129/57 (81) 94 09/19/19 22:00 129/56 09/19/19 21:30 107 26 141/46 (77) 95 09/19/19 21:00 149/46 09/19/19 21:00 110 22 149/46 (80) 96 09/19/19 20:30 108 31 132/39 (70) 95 09/19/19 20:13 112 29 141/44 (76) 95 09/19/19 20:08 114 34 100 09/19/19 20:00 98.7 116 32 174/57 (96) 96 09/19/19 20:00 Mechanical Ventilator 09/19/19 20:00 108 09/19/19 20:00 132/39 09/19/19 19:45 111 36 182/65 (104) 90 09/19/19 19:30 99 31 141/51 (81) 98 09/19/19 19:00 98 31 129/68 (88) 99 09/19/19 18:30 101 28 121/48 (72) 97 09/19/19 18:30 121/48 09/19/19 18:00 98.6 101 29 118/41 (66) 96 09/19/19 17:30 100 27 111/72 (85) 96 09/19/19 17:30 111/72 09/19/19 17:00 105 29 98/67 (77) 96 09/19/19 16:46 109/33 09/19/19 16:30 109/33 09/19/19 16:30 107 30 109/33 (58) 94 09/19/19 16:00 105 27 114/58 (76) 96 09/19/19 16:00 108 09/19/19 16:00 Mechanical Ventilator 09/19/19 15:30 107 31 131/47 (75) 95 09/19/19 15:30 131/47 09/19/19 15:15 108 31 97/25 (49) 95 09/19/19 14:53 112 26 100 09/19/19 14:30 140/102 09/19/19 14:30 113 33 140/102 (115) 96 09/19/19 14:00 112 32 140/84 (102) 96 09/19/19 13:30 107 32 124/64 (84) 96 09/19/19 13:30 124/64 09/19/19 13:16 101.5 09/19/19 13:00 113 32 126/48 (74) 96 09/19/19 12:30 113 32 118/35 (62) 95 09/19/19 12:30 118/35 09/19/19 12:00 Mechanical Ventilator 09/19/19 12:00 101.6 114 29 139/65 (89) 93 09/19/19 12:00 112 09/19/19 11:30 113 24 168/46 (86) 96 09/19/19 11:30 168/46 09/19/19 11:18 100 09/19/19 11:00 118/60 09/19/19 11:00 112 21 118/60 (79) 96 09/19/19 10:47 113 28 100 09/19/19 10:30 110 25 122/60 (80) 98 09/19/19 10:15 110 21 124/100 (108) 97 09/19/19 10:00 108 26 158/57 (90) 98 09/19/19 10:00 158/57 09/19/19 09:30 108 26 135/114 (121) 98 09/19/19 09:13 124/53 09/19/19 09:00 Mechanical Ventilator 09/19/19 09:00 103 23 121/56 (77) 99 09/19/19 09:00 121/56 09/19/19 08:30 98.6 99 20 105/38 (60) 98 Objective: Status: intubated, not responsive Condition: critical HEENT: normocephalic, ET in place, intact Lungs: rhonchi bilaterally Heart: HR/BP unstable, - ST on tele Abdomen: soft - distended , active bowel sounds, G tube , rectal tube Extremities: L AKA Skin: multiple pressure injury POA Micro: Microbiology Date/Time Source Procedure Growth Status 09/17/19 10:50 Stool Clostridium difficile Toxin Assay - Final Complete 09/17/19 16:00 Urine,Clean Catch Urine Culture - Final Enterococcus Avium Complete Accucheck: 238 Critical Care - Subjective ROS Limited/Unobtainable: Yes Interval Events: on PEEP10 FiO2 100% fever 09/18, currently afebrile, still on levo, but weaning lasb pending for this am creat worsening Condition: critical IV Access: central - RIJ TL intact EKG Rhythm: Sinus Tachycardia FI02: 100 Vent Support Breath Rate: 16 Vent Support Mode: AC Vent Tidal Volume: 700 Sputum Amount: Small PEEP: 10.0 PIP: 44 Secretions: small amount, yellow color, thick consistency Fluids: D5W at 100 Drips: Levophed at 2 mcg/min Tube Feeding Amount: 0 I&O: Intake and Output 09/19/19 09/20/19 19:00 07:00 Intake Total 1825.8 ml 1515.0 ml Output Total 85 ml 70 ml Balance 1740.8 ml 1445.0 ml Intake Free Water 50 ml IV Total 1645.8 ml 1365.0 ml Tube Feeding 130 ml 0 ml Other 150 ml Output Urine Total 85 ml 70 ml Stool Total 0 ml CXR: CXR 09/18 Slightly increased patchy opacity/consolidation throughout the right lung and predominantly in the left mid and lower lung. Probable small bilateral pleural effusions. ET-Tube: 7.5 ET Position: 23 Radha Ortiz NP September 20, 2019 08:18
--- NOTE | 2019-09-20 08:27 | Diagnostic Imaging Report ---
EXAM: XR Chest, 1 View CLINICAL HISTORY: Shortness of breath TECHNIQUE: Frontal view of the chest. COMPARISON: Chest x-rays dated 09/19/19 and 09/18/19 FINDINGS: Lungs: No significant change in consolidation and groundglass opacities in bilateral lungs. Pleural space: Possible small bilateral pleural effusions, greater on the left. No visible pneumothorax. Heart: Unremarkable. No cardiomegaly. Mediastinum: Unremarkable. Bones/joints: Unremarkable. Vasculature: Atherosclerotic calcifications are noted within the aortic arch. Tubes, lines and devices: Stable positioning of the endotracheal tube and right IJ central venous catheter. IMPRESSION: No significant interval change compared to the prior chest x-ray. No significant change in consolidation and groundglass opacities in bilateral lungs. Possible small bilateral pleural effusions, greater on the left.
[2019-09-20] MEDS: Heparin 5000 units/ml inj SUBQ SCH ×2 (09:00→21:00)
--- NOTE | 2019-09-20 09:00 | NUR ---
NURSE NOTES: Heparin 5,000u SQ hold,PLT low 47.
[2019-09-20] MEDS: Pantoprazole Inj IVP SCH ×2 (09:41→21:58)
[2019-09-20] MEDS: levETIRAcetam 500mg/5ml Liquid GT SCH ×2 (09:42→21:58)
--- NOTE | 2019-09-20 11:00 | NUR ---
NURSE NOTES: Oral /ETT secretions suctioned to mod amount of thin whitish phlegm,turned and repositioned.
[2019-09-20 11:29] LABS: HEMATOCRIT 27.7 % (37.0-47.0); HEMOGLOBIN 9.7 G/DL (12.0-16.0); MEAN CORPUSCULAR VOLUME 89 FL (80-99); PLATELET COUNT 47 K/UL (150-450); RED BLOOD COUNT 3.11 M/UL (4.20-5.40); RED CELL DISTRIBUTION WIDTH 13.2 % (11.6-14.8); WHITE BLOOD COUNT 9.2 K/UL (4.8-10.8)
[2019-09-20 11:32] LABS: INR 1.2 (0.9-1.1)
[2019-09-20 11:45] LABS: ANION GAP 23 mmol/L (5-15); BLOOD UREA NITROGEN 128 mg/dL (7-18); CALCIUM 6.3 MG/DL (8.5-10.1); CARBON DIOXIDE 12 MMOL/L (21-32); CHLORIDE 96 MMOL/L (98-107); CREATININE 6.6 MG/DL (0.55-1.30); POTASSIUM 3.8 MMOL/L (3.5-5.1); SODIUM 131 MMOL/L (136-145)
[2019-09-20 11:49] LABS: ALANINE AMINOTRANSFERASE 60 U/L (12-78); ALBUMIN 1.5 G/DL (3.4-5.0); ALBUMIN/GLOBULIN RATIO 0.3 (1.0-2.7); ALKALINE PHOSPHATASE 81 U/L (46-116); ASPARTATE AMINO TRANSFERASE 157 U/L (15-37); BILIRUBIN,TOTAL 0.7 MG/DL (0.2-1.0)
--- NOTE | 2019-09-20 11:51 | Nephrology Progress Note ---
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 which the patient had [id number] amputation, Functional quadriplegia History of DVT ECF resident Full code Plan COVID test positive Transfused 2 units of packed RBCs Renal parameters worsened but serum creatinine is stable for the past 2 days Hydration with D5 and normal saline now Keep blood pressure and blood sugar in check Monitor renal parameters Avoid nephrotoxic's Pulmonary support and toilet Poor prognosis Discussed with RN Patient remain full code Patient may need hemodialysis soon will discuss with the daughter Subjective ROS Limited/Unobtainable: Yes Objective Objective Last 24 Hour Vital Signs Date Time Temp Pulse Resp B/P (MAP) Pulse Ox O2 Delivery O2 Flow Rate FiO2 09/20/19 11:27 108 24 100 09/20/19 11:22 100 09/20/19 11:00 107 28 133/34 (67) 97 09/20/19 10:00 108 28 151/63 (92) 97 09/20/19 09:00 110 30 155/55 (88) 97 09/20/19 08:00 Mechanical Ventilator 09/20/19 08:00 99.2 108 28 159/55 (89) 97 09/20/19 08:00 108 09/20/19 07:15 115 23 100 09/20/19 07:00 115/49 09/20/19 07:00 96 24 115/49 (71) 97 09/20/19 06:30 98 24 09/20/19 06:30 98 24 120/46 (70) 100 09/20/19 06:00 97 22 110/40 (63) 99 09/20/19 06:00 110/40 09/20/19 05:30 100 23 102/39 (60) 97 09/20/19 05:00 123/47 09/20/19 05:00 110 30 123/47 (72) 09/20/19 04:30 107 24 123/46 (71) 95 09/20/19 04:00 Mechanical Ventilator 09/20/19 04:00 125/44 5/17/20 04:00 98.5 109 34 125/44 (71) 91 09/20/19 04:00 109 09/20/19 03:30 110 16 142/50 (80) 92 09/20/19 03:30 110 37 100 09/20/19 03:00 132/50 09/20/19 03:00 108 15 132/50 (77) 92 09/20/19 02:30 108 14 145/51 (82) 93 09/20/19 02:00 136/45 09/20/19 02:00 107 15 136/45 (75) 93 09/20/19 01:30 107 15 127/51 (76) 92 09/20/19 01:00 107 17 128/49 (75) 92 09/20/19 01:00 128/49 09/20/19 00:30 106 15 127/43 (71) 93 09/20/19 00:00 98.1 106 26 145/56 (85) 93 09/20/19 00:00 106 09/20/19 00:00 Mechanical Ventilator 09/20/19 00:00 145/56 09/19/19 23:30 107 26 133/43 (73) 93 09/19/19 23:00 134/46 09/19/19 23:00 107 27 134/46 (75) 93 09/19/19 22:51 107 28 100 09/19/19 22:30 107 28 129/51 (77) 93 09/19/19 22:00 107 28 129/57 (81) 94 09/19/19 22:00 129/56 09/19/19 21:30 107 26 141/46 (77) 95 09/19/19 21:00 149/46 09/19/19 21:00 110 22 149/46 (80) 96 09/19/19 20:30 108 31 132/39 (70) 95 09/19/19 20:13 112 29 141/44 (76) 95 09/19/19 20:08 114 34 100 09/19/19 20:00 98.7 116 32 174/57 (96) 96 09/19/19 20:00 Mechanical Ventilator 09/19/19 20:00 108 09/19/19 20:00 132/39 09/19/19 19:45 111 36 182/65 (104) 90 5/16/20 19:30 99 31 141/51 (81) 98 09/19/19 19:00 98 31 129/68 (88) 99 09/19/19 18:30 101 28 121/48 (72) 97 09/19/19 18:30 121/48 09/19/19 18:00 98.6 101 29 118/41 (66) 96 09/19/19 17:30 100 27 111/72 (85) 96 09/19/19 17:30 111/72 09/19/19 17:00 105 29 98/67 (77) 96 09/19/19 16:46 109/33 09/19/19 16:30 109/33 09/19/19 16:30 107 30 109/33 (58) 94 09/19/19 16:00 105 27 114/58 (76) 96 09/19/19 16:00 108 09/19/19 16:00 Mechanical Ventilator 09/19/19 15:30 107 31 131/47 (75) 95 09/19/19 15:30 131/47 09/19/19 15:15 108 31 97/25 (49) 95 09/19/19 14:53 112 26 100 09/19/19 14:30 140/102 09/19/19 14:30 113 33 140/102 (115) 96 09/19/19 14:00 112 32 140/84 (102) 96 09/19/19 13:30 107 32 124/64 (84) 96 09/19/19 13:30 124/64 09/19/19 13:16 101.5 09/19/19 13:00 113 32 126/48 (74) 96 09/19/19 12:30 113 32 118/35 (62) 95 09/19/19 12:30 118/35 09/19/19 12:00 Mechanical Ventilator 09/19/19 12:00 101.6 114 29 139/65 (89) 93 09/19/19 12:00 112 Intake and Output 09/19/19 09/20/19 19:00 07:00 Intake Total 1825.8 ml 1515.0 ml Output Total 85 ml 70 ml Balance 1740.8 ml 1445.0 ml Intake Free Water 50 ml IV Total 1645.8 ml 1365.0 ml Tube Feeding 130 ml 0 ml Other 150 ml Output Urine Total 85 ml 70 ml Stool Total 0 ml Laboratory Tests 09/20/19 04:00: Arterial Blood pH 7.275L, Arterial Blood Partial Pressure CO2 23.0*L, Arterial Blood Partial Pressure O2 61.9L, Arterial Blood HCO3 10.4*L, Arterial Blood Oxygen Saturation 88.3*L, Arterial Blood Base Excess -14.7*L, Gareth Test Positive 09/20/19 09:15: White Blood Count 9.2, Red Blood Count 3.11L, Hemoglobin 9.7L, Hematocrit 27.7L , Mean Corpuscular Volume 89, Mean Corpuscular Hemoglobin 31.3H, Mean Corpuscular Hemoglobin Concent 35.1, Red Cell Distribution Width 13.2, Platelet Count 47L, Mean Platelet Volume 10.9H, Neutrophils (%) (Auto) , Lymphocytes (%) (Auto) , Monocytes (%) (Auto) , Eosinophils (%) (Auto) , Basophils (%) (Auto) , Neutrophils % (Manual) [Pending], Lymphocytes % (Manual) [Pending], Platelet Estimate [Pending], Platelet Morphology [Pending], Prothrombin Time 13.0H, Prothromb Time International Ratio 1.2H, Activated Partial Thromboplast Time 44H , D-Dimer [Pending], Uric Acid [Pending], Phosphorus Level [Pending], Magnesium Level [Pending], Lactate Dehydrogenase [Pending], Total Creatine Kinase [Pending ], C-Reactive Protein, Quantitative [Pending] 09/20/19 09:19: Sodium Level 131L, Potassium Level 3.8, Chloride Level 96L, Carbon Dioxide Level 12L, Anion Gap 23H, Blood Urea Nitrogen 128H, Creatinine 6.6H, Estimat Glomerular Filtration Rate 7.3, Glucose Level 255#H, Calcium Level 6.3L, Total Bilirubin 0.7, Aspartate Amino Transf (AST/SGOT) 157H, Alanine Aminotransferase (ALT/SGPT) 60, Alkaline Phosphatase 81, Total Protein 6.5, Albumin 1.5L, Globulin 5.0, Albumin/Globulin Ratio 0.3L Height (Feet): 5 Height (Inches): 6.00 Weight (Pounds): 192 General Appearance: no apparent distress EENT: other - Remains intubated on ventilator Cardiovascular: tachycardia Respiratory/Chest: decreased breath sounds Abdomen: distended Objective No other change Estevan Orozco MD September 20, 2019 11:51
[2019-09-20] MEDS: D5NS 1,000 ML IV SCH ×2 (12:08→21:59)
[2019-09-20 12:18] LABS: CREATINE KINASE 2175 U/L (26-308); PHOSPHORUS 5.6 MG/DL (2.5-4.9)
--- NOTE | 2019-09-20 13:00 | NUR ---
NURSE NOTES: Tube feeding remains on hold,continue with high residual >100.
--- NOTE | 2019-09-20 13:33 | Internal Med Progress Note ---
Subjective Physician Name Lane Woodson Attending Physician Saira Lazcano MD Current Medications Medications (Trade) Dose Ordered Sig/Nancy Route PRN Reason Start Time Stop Time Status Last Admin Dose Admin Acetaminophen (Tylenol) 650 mg Q4H PRN ORAL fever 09/17/19 09:30 10/17/19 09:29 09/19/19 12:46 Albuterol/ Ipratropium (Albuterol/ Ipratropium) 3 ml Q4H PRN HHN Shortness of Breath 09/17/19 09:30 09/22/19 09:29 Allopurinol (allopurinoL) 300 mg DAILY GT 09/20/19 09:00 10/18/19 08:59 09/20/19 09:42 Chlorhexidine Gluconate (Jossy-Hex 2%) 1 applic DAILY@2000 TOPIC 09/18/19 20:00 12/17/19 19:59 09/19/19 20:31 Dextrose (Dextrose 50%) 25 ml Q30M PRN IV Hypoglycemia 09/17/19 13:15 12/16/19 13:14 Dextrose (Dextrose 50%) 50 ml Q30M PRN IV Hypoglycemia 09/17/19 13:15 12/16/19 13:14 Dextrose/Sodium Chloride 1,000 ml @ 100 mls/hr Q10H IV 09/20/19 12:00 10/20/19 11:59 09/20/19 12:08 Heparin Sodium (Porcine) (Heparin 5000 units/ml) 5,000 units EVERY 12 HOURS SUBQ 09/17/19 21:00 11/01/19 20:59 09/18/19 20:38 Hydralazine HCl (Apresoline) 10 mg Q4H PRN IV For High Blood Pressure 09/17/19 16:15 12/16/19 16:14 Insulin Aspart (NovoLOG) Q6HR SUBQ 09/18/19 18:00 12/16/19 16:29 09/20/19 11:53 Levetiracetam (Keppra) 1,000 mg Q12HR GT 09/17/19 21:00 10/17/19 20:59 09/20/19 09:42 Lorazepam (Ativan 2mg/ml 1ml) 2 mg Q2H PRN IV For Anxiety 09/17/19 09:30 09/24/19 09:29 09/20/19 11:51 Meropenem 500 mg/ Sodium Chloride 55 ml @ 110 mls/hr Q24H IVPB 09/17/19 16:00 09/22/19 15:59 09/19/19 15:18 Midodrine (Pro-Amatine) 10 mg Q8HR GT 09/17/19 14:30 12/16/19 14:29 09/20/19 05:34 Morphine Sulfate (Morphine Sulfate) 4 mg Q4H PRN IVP Severe Pain (Pain Scale 7-10) 09/17/19 09:30 09/24/19 09:29 Norepinephrine Bitartrate 4 mg/ Dextrose 250 ml @ 0 mls/hr Q24H IV 09/17/19 15:30 10/17/19 15:23 09/19/19 16:46 Ondansetron HCl (Zofran) 4 mg Q6H PRN IVP Nausea & Vomiting 09/17/19 09:30 10/17/19 09:29 Pantoprazole (Protonix) 40 mg EVERY 12 HOURS IVP 09/17/19 10:00 10/17/19 09:59 09/20/19 09:41 Polyethylene Glycol (Miralax) 17 gm DAILYPRN PRN ORAL Constipation 09/17/19 09:30 10/17/19 09:29 Sevelamer Carbonate (Renvela) 800 mg Q8HR GT 09/19/19 14:00 12/18/19 13:59 09/20/19 05:34 Sodium Citrate (Bicitra) 30 ml EVERY 6 HOURS GT 09/19/19 18:00 10/19/19 17:59 09/20/19 11:50 Vancomycin HCl (Vanco rx to dose) 1 ea DAILY PRN [facility] [place] to dose 09/17/19 10:00 10/17/19 09:59 Allergies: Coded Allergies: METOCLOPRAMIDE (Verified Allergy, Unknown, 03/10/18) extrapyramidal Sx Subjective Intubated, in ICU, on COVID -19 isolation room, Hgb: 9.7 stable, PLT: 47 Objective Last Vital Signs Date Time Temp Pulse Resp B/P (MAP) Pulse Ox O2 Delivery O2 Flow Rate FiO2 09/20/19 11:27 108 24 100 09/20/19 11:00 133/34 (67) 97 09/20/19 08:00 Mechanical Ventilator 09/20/19 08:00 99.2 09/17/19 10:20 15.0 Laboratory Tests Test 09/20/19 04:00 09/20/19 09:15 09/20/19 09:19 Arterial Blood pH 7.275 (7.350-7.450) Arterial Blood Partial Pressure CO2 23.0 mmHg (35.0-45.0) *L Arterial Blood Partial Pressure O2 61.9 mmHg (75.0-100.0) L Arterial Blood HCO3 10.4 mmol/L (22.0-26.0) *L Arterial Blood Oxygen Saturation 88.3 % (95-100) *L Arterial Blood Base Excess -14.7 (-2-2) *L Gareth Test Positive White Blood Count 9.2 K/UL (4.8-10.8) Red Blood Count 3.11 M/UL (4.20-5.40) L Hemoglobin 9.7 G/DL (12.0-16.0) L Hematocrit 27.7 % (37.0-47.0) L Mean Corpuscular Volume 89 FL (80-99) Mean Corpuscular Hemoglobin 31.3 PG (27.0-31.0) H Mean Corpuscular Hemoglobin Concent 35.1 G/DL (32.0-36.0) Red Cell Distribution Width 13.2 % (11.6-14.8) Platelet Count 47 K/UL (150-450) L Mean Platelet Volume 10.9 FL (6.5-10.1) H Neutrophils (%) (Auto) % (45.0-75.0) Lymphocytes (%) (Auto) % (20.0-45.0) Monocytes (%) (Auto) % (1.0-10.0) Eosinophils (%) (Auto) % (0.0-3.0) Basophils (%) (Auto) % (0.0-2.0) Differential Total Cells Counted 100 Neutrophils % (Manual) 75 % (45-75) Lymphocytes % (Manual) 11 % (20-45) L Monocytes % (Manual) 3 % (1-10) Eosinophils % (Manual) 0 % (0-3) Basophils % (Manual) 0 % (0-2) Band Neutrophils 11 % (0-8) H Platelet Estimate Decreased L Platelet Morphology Normal Hypochromasia 1+ Prothrombin Time 13.0 SEC (9.30-11.50) H Prothromb Time International Ratio 1.2 (0.9-1.1) H Activated Partial Thromboplast Time 44 SEC (23-33) H D-Dimer 26.45 mg/L FEU (0.00-0.49) H Uric Acid 9.2 MG/DL (2.6-7.2) H Phosphorus Level 5.6 MG/DL (2.5-4.9) H Magnesium Level 2.1 MG/DL (1.8-2.4) Lactate Dehydrogenase 847 U/L (81-234) H Total Creatine Kinase 2175 U/L (26-308) H C-Reactive Protein, Quantitative 42.0 mg/dL (0.00-0.90) H Sodium Level 131 MMOL/L (136-145) L Potassium Level 3.8 MMOL/L (3.5-5.1) Chloride Level 96 MMOL/L (98-107) L Carbon Dioxide Level 12 MMOL/L (21-32) L Anion Gap 23 mmol/L (5-15) H Blood Urea Nitrogen 128 mg/dL (7-18) H Creatinine 6.6 MG/DL (0.55-1.30) H Estimat Glomerular Filtration Rate 7.3 mL/min (>60) Glucose Level 255 MG/DL (74-106) #H Calcium Level 6.3 MG/DL (8.5-10.1) L Total Bilirubin 0.7 MG/DL (0.2-1.0) Aspartate Amino Transf (AST/SGOT) 157 U/L (15-37) H Alanine Aminotransferase (ALT/SGPT) 60 U/L (12-78) Alkaline Phosphatase 81 U/L (46-116) Total Protein 6.5 G/DL (6.4-8.2) Albumin 1.5 G/DL (3.4-5.0) L Globulin 5.0 g/dL Albumin/Globulin Ratio 0.3 (1.0-2.7) L Microbiology Date/Time Source Procedure Growth Status 09/17/19 16:00 Urine,Clean Catch Urine Culture - Final Enterococcus Avium Complete Intake and Output 09/19/19 09/20/19 19:00 07:00 Intake Total 1825.8 ml 1515.0 ml Output Total 85 ml 70 ml Balance 1740.8 ml 1445.0 ml Intake Free Water 50 ml IV Total 1645.8 ml 1365.0 ml Tube Feeding 130 ml 0 ml Other 150 ml Output Urine Total 85 ml 70 ml Stool Total 0 ml Objective General: Intubated, not responsive, open eyes, Deferred due to COVID-19 infection Assessment/Plan Assessment/Plan Septic Shock Bilateral Pneumonia- COVID-19 infection Acute Hypoxemia respiratory failure s/p intubation 09/16- Acute Enterococcus UTI leukocytosis> leukopenia Thrombocytopenia. Seizure (witnessed by EMS) Anemia OREN on CKD Elevated LFTs Hx of Proteus UTI 04/2019 CVA w/ residual R side weakness pancreatitis 04/2019 sp L AKA Dm2 DVT COPD Dementia Dysphagia s/p GT vegetative state non verbal seizure disorder [place] resident ([facility]) Plan: -Continue empiric IV Vancomycin and Meropenem IV -Monitor laboratories and cultures -COVID19 isolation precaution -ETT/GT/ICU care -aspiration precautions -Trend CXR and inflammatory markers -Full code -DVT prophylaxis: Hold Heparin subcu due to Thrombocytopenia, SCD Only. -Right transjugular triple-lumen central venous catheter. Levophed drip: [address] Woodson MD September 20, 2019 13:33
[2019-09-20] MEDS: Meropenem 500 MG in NS 55 ML IVPB SCH (15:08)
[2019-09-20] MEDS ORDERED: NS 275ml ONE (15:49)
[2019-09-20] MEDS ORDERED: Miralax 17gm pkt GT PRN (16:15)
[2019-09-20] MEDS ORDERED: Acetaminophen 650mg/20.3ml GT PRN (16:15)
--- NOTE | 2019-09-20 17:22 | Cardiology Progress Note ---
Assessment/Plan Problem List: (1) Acute on chronic renal failure (2) Diabetes (3) Acute respiratory failure (4) Type 2 NJ (myocardial infarction) (5) UTI (urinary tract infection) (6) Anemia in CKD (chronic kidney disease) Status: stable, unchanged Status Narrative Pt w/ COVID 19 pneumonia, respiratory failure. CXR with bilateral infiltrates Anemia - s/p transfusion Thrombocytopenia , ? due to covid hypotension, on pressors Mild troponin elevation, c/w demand ischemia. Acute on chronic renal failure UTI -enterococcus Assessment/Plan Continue to lower iv norepi . maintain SBP > 90/ mean .60. Wean as tolerated Vent support transfuse PRBCs prn - h/h stable today Monitor plts Consider repeat ECHO (initial was technically limited) when out of covid isolation Subjective ROS Limited/Unobtainable: Yes Subjective Cardiology for Dr. Grimes Pt intubated, sedated Objective Last 24 Hour Vital Signs Date Time Temp Pulse Resp B/P (MAP) Pulse Ox O2 Delivery O2 Flow Rate FiO2 09/20/19 16:00 115 09/20/19 15:30 114 23 113/44 (67) 95 09/20/19 15:15 114 22 130/46 (74) 95 09/20/19 15:08 119/37 09/20/19 15:01 118/44 09/20/19 15:00 114 25 100 09/20/19 15:00 114 21 130/46 (74) 95 09/20/19 14:45 113 22 118/64 (82) 99 09/20/19 14:30 113 22 118/44 (68) 99 09/20/19 14:15 114 22 116/65 (82) 98 09/20/19 14:00 113 21 118/44 (68) 100 09/20/19 13:45 114 21 120/48 (72) 99 09/20/19 13:30 115 22 108/44 (65) 97 09/20/19 13:15 98 22 109/48 (68) 100 09/20/19 13:00 110 22 109/48 (68) 100 09/20/19 12:45 100 22 103/49 (67) 99 09/20/19 12:30 100 23 103/62 (76) 98 09/20/19 12:15 105 23 138/111 (120) 87 09/20/19 12:08 110/64 5/17/20 12:00 107 09/20/19 12:00 Mechanical Ventilator 09/20/19 12:00 98.4 105 22 103/55 (71) 98 09/20/19 11:45 106 30 129/58 (81) 92 09/20/19 11:30 107 30 147/44 (78) 92 09/20/19 11:27 108 24 100 09/20/19 11:22 100 09/20/19 11:15 107 30 133/34 (67) 09/20/19 11:00 107 28 133/34 (67) 97 09/20/19 10:45 108 31 143/54 (83) 09/20/19 10:30 108 29 147/70 (95) 09/20/19 10:15 109 30 151/63 (92) 38 09/20/19 10:00 114/57 09/20/19 10:00 108 28 151/63 (92) 97 09/20/19 09:45 109 29 156/54 (88) 09/20/19 09:30 108 30 140/52 (81) 09/20/19 09:15 110 30 155/58 (90) 09/20/19 09:00 110 30 155/55 (88) 97 09/20/19 09:00 118/45 09/20/19 08:45 110 30 146/54 (84) 09/20/19 08:30 108 28 150/50 (83) 09/20/19 08:15 108 29 159/55 (89) 09/20/19 08:00 Mechanical Ventilator 09/20/19 08:00 99.2 108 28 159/55 (89) 97 09/20/19 08:00 115/53 09/20/19 08:00 108 09/20/19 07:15 115 23 100 09/20/19 07:00 115/49 09/20/19 07:00 96 24 115/49 (71) 97 09/20/19 06:30 98 24 09/20/19 06:30 98 24 120/46 (70) 100 09/20/19 06:00 97 22 110/40 (63) 99 09/20/19 06:00 110/40 09/20/19 05:30 100 23 102/39 (60) 97 09/20/19 05:00 123/47 5/17/20 05:00 110 30 123/47 (72) 09/20/19 04:30 107 24 123/46 (71) 95 09/20/19 04:00 Mechanical Ventilator 09/20/19 04:00 125/44 09/20/19 04:00 98.5 109 34 125/44 (71) 91 09/20/19 04:00 109 09/20/19 03:30 110 16 142/50 (80) 92 09/20/19 03:30 110 37 100 09/20/19 03:00 132/50 09/20/19 03:00 108 15 132/50 (77) 92 09/20/19 02:30 108 14 145/51 (82) 93 09/20/19 02:00 136/45 09/20/19 02:00 107 15 136/45 (75) 93 09/20/19 01:30 107 15 127/51 (76) 92 09/20/19 01:00 107 17 128/49 (75) 92 09/20/19 01:00 128/49 09/20/19 00:30 106 15 127/43 (71) 93 09/20/19 00:00 98.1 106 26 145/56 (85) 93 09/20/19 00:00 106 09/20/19 00:00 Mechanical Ventilator 09/20/19 00:00 145/56 09/19/19 23:30 107 26 133/43 (73) 93 09/19/19 23:00 134/46 09/19/19 23:00 107 27 134/46 (75) 93 09/19/19 22:51 107 28 100 09/19/19 22:30 107 28 129/51 (77) 93 09/19/19 22:00 107 28 129/57 (81) 94 09/19/19 22:00 129/56 09/19/19 21:30 107 26 141/46 (77) 95 09/19/19 21:00 149/46 09/19/19 21:00 110 22 149/46 (80) 96 09/19/19 20:30 108 31 132/39 (70) 95 09/19/19 20:13 112 29 141/44 (76) 95 09/19/19 20:08 114 34 100 09/19/19 20:00 98.7 116 32 174/57 (96) 96 09/19/19 20:00 Mechanical Ventilator 09/19/19 20:00 108 09/19/19 20:00 132/39 09/19/19 19:45 111 36 182/65 (104) 90 09/19/19 19:30 99 31 141/51 (81) 98 09/19/19 19:00 98 31 129/68 (88) 99 09/19/19 18:30 101 28 121/48 (72) 97 09/19/19 18:30 121/48 09/19/19 18:00 98.6 101 29 118/41 (66) 96 09/19/19 17:30 100 27 111/72 (85) 96 09/19/19 17:30 111/72 General Appearance: on vent, other - sedated. Exam deferred- covid isolation Intake and Output 09/19/19 09/20/19 19:00 07:00 Intake Total 1825.8 ml 1515.0 ml Output Total 85 ml 70 ml Balance 1740.8 ml 1445.0 ml Intake Free Water 50 ml IV Total 1645.8 ml 1365.0 ml Tube Feeding 130 ml 0 ml Other 150 ml Output Urine Total 85 ml 70 ml Stool Total 0 ml Laboratory Tests Test 09/20/19 04:00 09/20/19 09:15 09/20/19 09:19 Arterial Blood pH 7.275 (7.350-7.450) Arterial Blood Partial Pressure CO2 23.0 mmHg (35.0-45.0) *L Arterial Blood Partial Pressure O2 61.9 mmHg (75.0-100.0) L Arterial Blood HCO3 10.4 mmol/L (22.0-26.0) *L Arterial Blood Oxygen Saturation 88.3 % (95-100) *L Arterial Blood Base Excess -14.7 (-2-2) *L Gareth Test Positive White Blood Count 9.2 K/UL (4.8-10.8) Red Blood Count 3.11 M/UL (4.20-5.40) L Hemoglobin 9.7 G/DL (12.0-16.0) L Hematocrit 27.7 % (37.0-47.0) L Mean Corpuscular Volume 89 FL (80-99) Mean Corpuscular Hemoglobin 31.3 PG (27.0-31.0) H Mean Corpuscular Hemoglobin Concent 35.1 G/DL (32.0-36.0) Red Cell Distribution Width 13.2 % (11.6-14.8) Platelet Count 47 K/UL (150-450) L Mean Platelet Volume 10.9 FL (6.5-10.1) H Neutrophils (%) (Auto) % (45.0-75.0) Lymphocytes (%) (Auto) % (20.0-45.0) Monocytes (%) (Auto) % (1.0-10.0) Eosinophils (%) (Auto) % (0.0-3.0) Basophils (%) (Auto) % (0.0-2.0) Differential Total Cells Counted 100 Neutrophils % (Manual) 75 % (45-75) Lymphocytes % (Manual) 11 % (20-45) L Monocytes % (Manual) 3 % (1-10) Eosinophils % (Manual) 0 % (0-3) Basophils % (Manual) 0 % (0-2) Band Neutrophils 11 % (0-8) H Platelet Estimate Decreased L Platelet Morphology Normal Hypochromasia 1+ Prothrombin Time 13.0 SEC (9.30-11.50) H Prothromb Time International Ratio 1.2 (0.9-1.1) H Activated Partial Thromboplast Time 44 SEC (23-33) H D-Dimer 26.45 mg/L FEU (0.00-0.49) H Uric Acid 9.2 MG/DL (2.6-7.2) H Phosphorus Level 5.6 MG/DL (2.5-4.9) H Magnesium Level 2.1 MG/DL (1.8-2.4) Lactate Dehydrogenase 847 U/L (81-234) H Total Creatine Kinase 2175 U/L (26-308) H C-Reactive Protein, Quantitative 42.0 mg/dL (0.00-0.90) H Sodium Level 131 MMOL/L (136-145) L Potassium Level 3.8 MMOL/L (3.5-5.1) Chloride Level 96 MMOL/L (98-107) L Carbon Dioxide Level 12 MMOL/L (21-32) L Anion Gap 23 mmol/L (5-15) H Blood Urea Nitrogen 128 mg/dL (7-18) H Creatinine 6.6 MG/DL (0.55-1.30) H Estimat Glomerular Filtration Rate 7.3 mL/min (>60) Glucose Level 255 MG/DL (74-106) #H Calcium Level 6.3 MG/DL (8.5-10.1) L Total Bilirubin 0.7 MG/DL (0.2-1.0) Aspartate Amino Transf (AST/SGOT) 157 U/L (15-37) H Alanine Aminotransferase (ALT/SGPT) 60 U/L (12-78) Alkaline Phosphatase 81 U/L (46-116) Total Protein 6.5 G/DL (6.4-8.2) Albumin 1.5 G/DL (3.4-5.0) L Globulin 5.0 g/dL Albumin/Globulin Ratio 0.3 (1.0-2.7) L Kamilla Evans MD September 20, 2019 17:22
--- NOTE | 2019-09-20 18:00 | NUR ---
NURSE NOTES: BP 131/40,Levophed drip turned off.
--- NOTE | 2019-09-20 19:20 | NUR ---
HAND-OFF: Report given to Caitlyn Goodrich RN.
--- NOTE | 2019-09-20 19:31 | NUR ---
RESPIRATORY NOTE: Pt received on AC 16, 700VT, 100%, PEEP +10. Pt intubated w/ ETT 7.5 @ 23cm secured by anchorfast. Pt obtunded. B/S linnea. rhonchi, sxn scant amounts of thick/thin, clear-white secretions. Vent plugged into red outlet, ambubag at bedside. Pt in no apparent distress at this time. Will continue to monitor pt.
[2019-09-20] MEDS: Dyna-Hex 2% Top Sol 2oz TOPIC SCH (20:00)
--- NOTE | 2019-09-20 20:00 | NUR ---
NURSE NOTES: received report from sasha richard pt orally intubated -vent o2 sat 92-95 % [id number] iv infusing well site rt ij dressing dry and intact tube feeding >residual 100 on hold reposition and suction
--- NOTE | 2019-09-20 22:00 | NUR ---
NURSE NOTES: reposition and suction condition un change
[2019-09-21] VITALS (26 sets, daily range): BP systolic 92–186; BP diastolic 28–100
--- NOTE | 2019-09-21 | NUR ---
NURSE NOTES: bs 166 coverage given as order
--- NOTE | 2019-09-21 02:00 | NUR ---
NURSE NOTES: tube feeding hold 80cc residual
--- NOTE | 2019-09-21 04:00 | NUR ---
NURSE NOTES: COMPLETE BED BATH ORAL CARE AND BACK CARE DONE
[2019-09-21] MEDS: Renvela 800mg Pkt GT SCH ×2 (04:55→13:40)
[2019-09-21] MEDS: Midodrine 10mg tab GT SCH ×2 (04:55→13:39)
[2019-09-21] MEDS: Sodium Citrate 30ml GT SCH ×2 (04:56→12:00)
[2019-09-21 05:31] LABS: HEMATOCRIT 27.8 % (37.0-47.0); HEMOGLOBIN 9.8 G/DL (12.0-16.0); MEAN CORPUSCULAR VOLUME 89 FL (80-99); PLATELET COUNT 47 K/UL (150-450); RED BLOOD COUNT 3.13 M/UL (4.20-5.40); RED CELL DISTRIBUTION WIDTH 13.5 % (11.6-14.8); WHITE BLOOD COUNT 13.9 K/UL (4.8-10.8)
[2019-09-21 06:00] LABS: ALANINE AMINOTRANSFERASE 42 U/L (12-78); ALBUMIN 1.3 G/DL (3.4-5.0); ALBUMIN/GLOBULIN RATIO 0.3 (1.0-2.7); ALKALINE PHOSPHATASE 92 U/L (46-116); ANION GAP 20 mmol/L (5-15); ASPARTATE AMINO TRANSFERASE 106 U/L (15-37); BILIRUBIN,TOTAL 0.7 MG/DL (0.2-1.0); BLOOD UREA NITROGEN 126 mg/dL (7-18); CARBON DIOXIDE 13 MMOL/L (21-32); CHLORIDE 96 MMOL/L (98-107); CREATININE 6.9 MG/DL (0.55-1.30); POTASSIUM 3.9 MMOL/L (3.5-5.1); SODIUM 129 MMOL/L (136-145)
--- NOTE | 2019-09-21 06:00 | NUR ---
NURSE NOTES: [id number] insulin coverage as order
[2019-09-21 06:06] LABS: PHOSPHORUS 7.1 MG/DL (2.5-4.9)
[2019-09-21] MEDS: NovoLOG Insulin Flexpen SUBQ SCH ×2 (06:19→12:00)
[2019-09-21] MEDS: D5NS 1,000 ML IV SCH (06:48)
[2019-09-21] MEDS ORDERED: Vancomycin 1gm in D5W 275ml IVPB SCH ×2 (07:00→08:00)
--- NOTE | 2019-09-21 07:29 | NUR ---
HAND-OFF: Report given to jolynn richard using sbar .
--- NOTE | 2019-09-21 07:30 | NUR ---
NURSE NOTES: Patient received in bed from Shae SMITH. patient is resting in bed, obtunded, nonverbal, not following any direction at this time. patient is SR on the monitor. patient is orally intubated ETT 7.09/25 at lip. AC 16 TV 700 100% P 10 noted, patient i O2 sat fluctuates from 92-100%. patient can be impulsive at times, remains on bilateral soft wrist restraints. patient has gtube intact currently on hold for gtube feeding due to residual volume. patient has martinez intact, draining, oliguria noted. patient has TLC on the Rt IJ dressing intact, patent. will continue to monitor. bed locked in lowest position, 2 side rails up.
[2019-09-21] MEDS ORDERED: D5NS 1,000 ML IV SCH (08:01)
[2019-09-21] MEDS: Heparin 5000 units/ml inj SUBQ SCH (08:11)
--- NOTE | 2019-09-21 08:12 | NUR ---
NURSE NOTES: Heparin subcutaneous held due to platelet level of 47.
--- NOTE | 2019-09-21 08:15 | NUR ---
NURSE NOTES: called [phone] for Bernardino Ashford in attempt to get a telephone consent. left msg and waiting for call back
[2019-09-21] MEDS: levETIRAcetam 500mg/5ml Liquid GT SCH (08:37)
[2019-09-21] MEDS: Pantoprazole Inj IVP SCH (08:37)
--- NOTE | 2019-09-21 09:08 | NUR ---
NURSE NOTES: notified to Radha Vidal NP and Dr. Lazcano regarding patient's ABG result.
--- NOTE | 2019-09-21 09:16 | NUR ---
NURSE NOTES: notified to Dr. Orozco regarding patient's questions regarding giving consent to dialysis catheter non tunneled.
--- NOTE | 2019-09-21 09:18 | Nephrology Progress Note ---
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 Transfused 2 units of packed RBCs Renal parameters worsened but serum creatinine remains elevated. Creatinine is 6.9 today Hydration with D5 and normal saline now Keep blood pressure and blood sugar in check Monitor renal parameters Avoid nephrotoxic's Pulmonary support and toilet Poor prognosis Discussed with RN Patient remain full code Patient need hemodialysis will discuss with the decision maker Patient requires a consent for insertion of temporary dialysis catheter Per orders Subjective ROS Limited/Unobtainable: Yes Objective Objective Last 24 Hour Vital Signs Date Time Temp Pulse Resp B/P (MAP) Pulse Ox O2 Delivery O2 Flow Rate FiO2 09/21/19 07:30 96 20 106/28 (54) 93 09/21/19 07:00 97 23 105/41 (62) 94 09/21/19 06:31 98 24 09/21/19 06:00 98 20 112/41 (64) 90 09/21/19 05:30 99 23 119/41 (67) 90 09/21/19 05:00 99 25 123/37 (65) 91 09/21/19 04:30 100 25 126/44 (71) 92 09/21/19 04:00 84 09/21/19 04:00 98.5 100 23 131/57 (81) 91 09/21/19 04:00 Mechanical Ventilator 09/21/19 03:30 101 17 112/54 (73) 93 09/21/19 03:20 105 21 100 09/21/19 03:00 113 25 131/56 (81) 91 09/21/19 02:30 114 26 136/41 (72) 93 09/21/19 02:00 102 25 140/46 (77) 93 09/21/19 01:30 101 27 131/45 (73) 94 09/21/19 01:00 101 22 125/42 (69) 94 09/21/19 00:30 101 23 106/48 (67) 93 09/21/19 00:00 Mechanical Ventilator 09/21/19 00:00 98.8 101 22 115/52 (73) 93 09/21/19 00:00 102 09/20/19 23:30 102 25 120/40 (66) 92 09/20/19 23:16 103 26 100 09/20/19 23:00 104 24 127/39 (68) 91 09/20/19 22:30 106 37 136/69 (91) 96 09/20/19 22:00 106 27 112/46 (68) 92 09/20/19 21:30 106 27 115/50 (71) 93 09/20/19 21:00 105 29 126/44 (71) 92 09/20/19 20:30 106 27 124/43 (70) 92 09/20/19 20:00 98.5 105 25 119/46 (70) 93 09/20/19 20:00 106 09/20/19 20:00 Mechanical Ventilator 09/20/19 19:30 106 30 141/61 (87) 96 09/20/19 19:28 105 27 100 09/20/19 19:00 105 28 131/41 (71) 95 09/20/19 17:45 104 29 134/60 (84) 94 09/20/19 17:30 105 29 136/50 (78) 96 09/20/19 17:15 105 29 120/54 (76) 94 09/20/19 17:00 105 23 136/50 (78) 92 09/20/19 16:45 115 28 124/51 (75) 94 09/20/19 16:30 115 28 123/55 (77) 95 09/20/19 16:15 115 27 129/39 (69) 94 09/20/19 16:00 105 23 120/54 (76) 92 09/20/19 16:00 Mechanical Ventilator 09/20/19 16:00 115 09/20/19 15:30 114 23 113/44 (67) 95 09/20/19 15:15 114 22 130/46 (74) 95 5/17/20 15:08 119/37 09/20/19 15:01 118/44 09/20/19 15:00 114 25 100 09/20/19 15:00 114 21 130/46 (74) 95 09/20/19 14:45 113 22 118/64 (82) 99 09/20/19 14:30 113 22 118/44 (68) 99 09/20/19 14:15 114 22 116/65 (82) 98 09/20/19 14:00 113 21 118/44 (68) 100 09/20/19 13:45 114 21 120/48 (72) 99 09/20/19 13:30 115 22 108/44 (65) 97 09/20/19 13:15 98 22 109/48 (68) 100 09/20/19 13:00 110 22 109/48 (68) 100 09/20/19 12:45 100 22 103/49 (67) 99 09/20/19 12:30 100 23 103/62 (76) 98 09/20/19 12:15 105 23 138/111 (120) 87 09/20/19 12:08 110/64 09/20/19 12:00 107 09/20/19 12:00 Mechanical Ventilator 09/20/19 12:00 98.4 105 22 103/55 (71) 98 09/20/19 11:45 106 30 129/58 (81) 92 09/20/19 11:30 107 30 147/44 (78) 92 09/20/19 11:27 108 24 100 09/20/19 11:22 100 09/20/19 11:15 107 30 133/34 (67) 09/20/19 11:00 107 28 133/34 (67) 97 09/20/19 10:45 108 31 143/54 (83) 09/20/19 10:30 108 29 147/70 (95) 09/20/19 10:15 109 30 151/63 (92) 38 09/20/19 10:00 114/57 09/20/19 10:00 108 28 151/63 (92) 97 09/20/19 09:45 109 29 156/54 (88) 09/20/19 09:30 108 30 140/52 (81) Intake and Output 09/20/19 09/21/19 19:00 07:00 Intake Total 845.0 ml 1100 ml Output Total 561 ml 215 ml Balance 284.0 ml 885 ml Intake Free Water 200 ml IV Total 445.0 ml 1100 ml Tube Feeding 80 ml 0 ml Other 120 ml Output Urine Total 560 ml 215 ml Stool Total 1 ml # Bowel Movements 1 Laboratory Tests 09/20/19 09:19: Sodium Level 131L, Potassium Level 3.8, Chloride Level 96L, Carbon Dioxide Level 12L, Anion Gap 23H, Blood Urea Nitrogen 128H, Creatinine 6.6H, Estimat Glomerular Filtration Rate 7.3, Glucose Level 255#H, Calcium Level 6.3L, Total Bilirubin 0.7, Aspartate Amino Transf (AST/SGOT) 157H, Alanine Aminotransferase (ALT/SGPT) 60, Alkaline Phosphatase 81, Total Protein 6.5, Albumin 1.5L, Globulin 5.0, Albumin/Globulin Ratio 0.3L 09/21/19 04:00: Sodium Level 129L, Potassium Level 3.9, Chloride Level 96L, Carbon Dioxide Level 13L, Anion Gap 20H, Blood Urea Nitrogen 126H, Creatinine 6.9H, Estimat Glomerular Filtration Rate 6.9, Glucose Level 209H, Calcium Level 6.0L, Total Bilirubin 0.7, Aspartate Amino Transf (AST/SGOT) 106H, Alanine Aminotransferase (ALT/SGPT) 42, Alkaline Phosphatase 92, Total Protein 5.8L, Albumin 1.3L, Globulin 4.5, Albumin/Globulin Ratio 0.3L, White Blood Count 13.9#H, Red Blood Count 3.13L, Hemoglobin 9.8L, Hematocrit 27.8L, Mean Corpuscular Volume 89, Mean Corpuscular Hemoglobin 31.3H, Mean Corpuscular Hemoglobin Concent 35.3, Red Cell Distribution Width 13.5, Platelet Count 47L, Mean Platelet Volume 12.7H , Neutrophils (%) (Auto) , Lymphocytes (%) (Auto) , Monocytes (%) (Auto) , Eosinophils (%) (Auto) , Basophils (%) (Auto) , Differential Total Cells Counted 100, Neutrophils % (Manual) 81H, Lymphocytes % (Manual) 14L, Monocytes % (Manual) 3, Eosinophils % (Manual) 0, Basophils % (Manual) 0, Band Neutrophils 2, Platelet Estimate DecreasedL, Platelet Morphology Normal, Hypochromasia 1+, Uric Acid 8.9H, Phosphorus Level 7.1H, Magnesium Level 2.1, C- Reactive Protein, Quantitative [Pending], Pro-B-Type Natriuretic Peptide 20592L , Random Vancomycin Level 12.3 09/21/19 08:33: Arterial Blood pH 7.036*L, Arterial Blood Partial Pressure CO2 35.7, Arterial Blood Partial Pressure O2 48.8*L, Arterial Blood HCO3 9.3*L, Arterial Blood Oxygen Saturation 72.9*L, Arterial Blood Base Excess -20.2*L, Gareth Test Positive Height (Feet): 5 Height (Inches): 6.00 Weight (Pounds): 184 General Appearance: no apparent distress EENT: other - Intubated on ventilator Cardiovascular: tachycardia Respiratory/Chest: decreased breath sounds Abdomen: distended Objective No other change Estevan Orozco MD September 21, 2019 09:18
--- NOTE | 2019-09-21 09:23 | NUR ---
NURSE NOTES: received a verbal order to consult with Radha YOON from Dr. Lazcano. received a new order from Radha YOON to increase peep of 10 to 12. notified current vent setting and O2 sat and abg result.
--- NOTE | 2019-09-21 09:28 | Diagnostic Imaging Report ---
Procedure: XRAY Chest 1v Reason for study: Reason For Exam: SOB Comparison films: 09/20/2019. FINDINGS: Endotracheal tube and central venous catheter remain in place. There is interval worsening of bilateral confluent alveolar densities and consolidations. Cardiac and mediastinal silhouette are within normal limits. There may be trace effusions. Tortuous aorta unchanged. IMPRESSION: Interval worsening of alveolar disease with increase in confluent bilateral alveolar densities and consolidations.
--- NOTE | 2019-09-21 09:54 | Pulmonolgy Critical Care Note ---
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 Functional quadriplegia PLAN OF CARE ICU care vent support pulm toilet off Levophed IVF Midodrine for BP support increase PEEP to 12, already on Bicitra -no effect CXR worse this am fup with ABG and CXR in am discussed woth nephro plan for HD cath and HD today SARS-CoV-2 by PCR 09/16 detected remains in isolation abx per ID UCX + Enterococci avium , BCX NGTD , C dif NGT strict aspiration precaution DVT prophylaxis CRP up to 52.7 - 09/18 G-tube feeding seizure precautions, continue Keppra s/p blood transfusion anemia w/up c/w anemia of chronic disease in this case anemia of chronic kidney disease ferritin above 2000 consider EPO - per nephro monitor renal parameters lytes ,correct electrolytes as needed, avoid nephrotoxic creat worse-6.9 this am may need HD as per nephro trend LFT, likely due to shock liver BS management with SSI GI prophylaxis supportive care overall prognosis remains poor patient still full code case discussed and evaluated by supervising physician Critical Care - Objective Last 24 Hour Vital Signs Date Time Temp Pulse Resp B/P (MAP) Pulse Ox O2 Delivery O2 Flow Rate FiO2 09/21/19 09:30 93 21 102/50 (67) 93 09/21/19 09:00 94 19 109/57 (74) 92 09/21/19 08:30 95 29 115/59 (77) 91 09/21/19 08:00 96 09/21/19 08:00 97.6 96 17 97/34 (55) 79 09/21/19 08:00 Mechanical Ventilator 09/21/19 07:30 96 20 106/28 (54) 93 09/21/19 07:00 97 23 105/41 (62) 94 09/21/19 06:31 98 24 09/21/19 06:00 98 20 112/41 (64) 90 09/21/19 05:30 99 23 119/41 (67) 90 09/21/19 05:00 99 25 123/37 (65) 91 09/21/19 04:30 100 25 126/44 (71) 92 09/21/19 04:00 84 09/21/19 04:00 98.5 100 23 131/57 (81) 91 09/21/19 04:00 Mechanical Ventilator 09/21/19 03:30 101 17 112/54 (73) 93 09/21/19 03:20 105 21 100 09/21/19 03:00 113 25 131/56 (81) 91 09/21/19 02:30 114 26 136/41 (72) 93 09/21/19 02:00 102 25 140/46 (77) 93 09/21/19 01:30 101 27 131/45 (73) 94 09/21/19 01:00 101 22 125/42 (69) 94 09/21/19 00:30 101 23 106/48 (67) 93 09/21/19 00:00 Mechanical Ventilator 09/21/19 00:00 98.8 101 22 115/52 (73) 93 09/21/19 00:00 102 09/20/19 23:30 102 25 120/40 (66) 92 09/20/19 23:16 103 26 100 09/20/19 23:00 104 24 127/39 (68) 91 09/20/19 22:30 106 37 136/69 (91) 96 09/20/19 22:00 106 27 112/46 (68) 92 09/20/19 21:30 106 27 115/50 (71) 93 09/20/19 21:00 105 29 126/44 (71) 92 09/20/19 20:30 106 27 124/43 (70) 92 09/20/19 20:00 98.5 105 25 119/46 (70) 93 20 20:00 106 09/20/19 20:00 Mechanical Ventilator 09/20/19 19:30 106 30 141/61 (87) 96 09/20/19 19:28 105 27 100 09/20/19 19:00 105 28 131/41 (71) 95 09/20/19 17:45 104 29 134/60 (84) 94 09/20/19 17:30 105 29 136/50 (78) 96 09/20/19 17:15 105 29 120/54 (76) 94 09/20/19 17:00 105 23 136/50 (78) 92 09/20/19 16:45 115 28 124/51 (75) 94 09/20/19 16:30 115 28 123/55 (77) 95 09/20/19 16:15 115 27 129/39 (69) 94 09/20/19 16:00 105 23 120/54 (76) 92 09/20/19 16:00 Mechanical Ventilator 09/20/19 16:00 115 09/20/19 15:30 114 23 113/44 (67) 95 09/20/19 15:15 114 22 130/46 (74) 95 09/20/19 15:08 119/37 09/20/19 15:01 118/44 09/20/19 15:00 114 25 100 09/20/19 15:00 114 21 130/46 (74) 95 09/20/19 14:45 113 22 118/64 (82) 99 09/20/19 14:30 113 22 118/44 (68) 99 09/20/19 14:15 114 22 116/65 (82) 98 09/20/19 14:00 113 21 118/44 (68) 100 09/20/19 13:45 114 21 120/48 (72) 99 09/20/19 13:30 115 22 108/44 (65) 97 09/20/19 13:15 98 22 109/48 (68) 100 09/20/19 13:00 110 22 109/48 (68) 100 09/20/19 12:45 100 22 103/49 (67) 99 09/20/19 12:30 100 23 103/62 (76) 98 09/20/19 12:15 105 23 138/111 (120) 87 09/20/19 12:08 110/64 09/20/19 12:00 107 09/20/19 12:00 Mechanical Ventilator 09/20/19 12:00 98.4 105 22 103/55 (71) 98 09/20/19 11:45 106 30 129/58 (81) 92 09/20/19 11:30 107 30 147/44 (78) 92 09/20/19 11:27 108 24 100 09/20/19 11:22 100 09/20/19 11:15 107 30 133/34 (67) 09/20/19 11:00 107 28 133/34 (67) 97 09/20/19 10:45 108 31 143/54 (83) 09/20/19 10:30 108 29 147/70 (95) 09/20/19 10:15 109 30 151/63 (92) 38 09/20/19 10:00 114/57 09/20/19 10:00 108 28 151/63 (92) 97 Objective: Status: intubated, not responsive Condition: critical HEENT: normocephalic, ET in place, intact Lungs: rhonchi bilaterally Heart: HR/BP unstable, - ST on tele Abdomen: soft - distended , active bowel sounds, G tube , rectal tube Extremities: L AKA Skin: multiple pressure injury POA Accucheck: 180 Critical Care - Subjective ROS Limited/Unobtainable: Yes Interval Events: remains critical with FiO2 100% and PEEP10 off Levophed afebrile, leukocytosis this am ABG with acute met acidosis CXR this am worse Condition: critical IV Access: central - RIL FI02: 100 Vent Support Breath Rate: 16 Vent Support Mode: AC Vent Tidal Volume: 700 Sputum Amount: Scant PEEP: 10.0 PIP: 51 Fluids: D5NS at 50 Tube Feeding Amount: 0 I&O: Intake and Output 09/20/19 09/21/19 19:00 07:00 Intake Total 845.0 ml 1100 ml Output Total 561 ml 215 ml Balance 284.0 ml 885 ml Intake Free Water 200 ml IV Total 445.0 ml 1100 ml Tube Feeding 80 ml 0 ml Other 120 ml Output Urine Total 560 ml 215 ml Stool Total 1 ml # Bowel Movements 1 CXR: CXR 09/20 -Interval worsening of alveolar disease with increase in confluent bilateral alveolar densities and consolidations. ET-Tube: 7.5 ET Position: 23 Radha Ortiz NP September 21, 2019 09:54
--- NOTE | 2019-09-21 10:00 | NUR ---
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 Orozco, witnessed with Alan SMITH. notified to [facility] regarding obtaining the consent.
--- NOTE | 2019-09-21 10:04 | NUR ---
RADIOLOGY DEPT., CHEST X-RAY DONE.-P.DYE
--- NOTE | 2019-09-21 10:08 | NUR ---
NURSE NOTES: patient's vent setting changed to AC 16 TV 700 100% Peep of 12. Received a new order of 1 amp of sodium bicarbonate to be given to patient per Dr. Orozco due to abg result.
[2019-09-21] MEDS ORDERED: Sodium Bicarbonate 50ml Carp IV SCH (10:15)
[2019-09-21] MEDS ORDERED: Heparin1,000 units/500ml Premix(Conc:2 units/ml) IV PRN (11:15)
[2019-09-21] MEDS ORDERED: Lidocaine 1% Plain 30 ml INJ PRN (11:15)
--- NOTE | 2019-09-21 11:32 | Infectious Diseases Prog Note ---
Assessment/Plan Assessment/Plan Assessment: Septic Shock- SP Pneumonia- 2ry COVID19 (resident of [place] with large outbreak) Acute respiratory failure s/p intubation 09/16- -09/20 CXR: Interval worsening of alveolar disease with increase in confluent bilateral alveolar densities and consolidations. -sp cx p -09/16 SARS-COV2 pCR positive CXR: Bilateral infiltrates Fever; improving leukocytosis> leukopenia> mild leukocytosis -u/a neg; ucx >100k E. avium- S PNC, Vanco, amp (likely contaminant); repeat ucx >100k E. avium -Bcx NTD 09/16 Cdiff neg Seizure (witnessed by EMS) Anemia/Thrombocytopenia; worsening OREN on CKD - plan for HD today Elevated LFTs hx of Proteus UTI 04/2019 - -u/a wbc 40-60, nit neg, leuk +2; ucx 30-40k P mirabilis (I Levo; R amp , macrobid, bactrim, cipro; otherwise S) CVA w/ residual R side weakness pancreatitis 04/2019 sp L AKA Dm2 DVT COPD Dementia dysphagia s/p GT vegetative state non verbal seizure disorder [place] resident ([facility]) Plan: -Continue empiric IV Vancomycin #5/ -Empiric Meropenem #5/ pending cultures -Will start SOlumedrol 40mg IV bid for severe manifestation of COVID19 -09/16 IV Amikacin #1, Ertapenem #1, Zosyn x1 -f/u cx -Monitor CBC/CMP, temperatures -COVID19 isolation -ETT/GT/ICU care -aspiration precautions -Trend CXR and inflammatory markers Thank you for consulting [facility]. Will contiue to follow along with you. Discussed with RN. Subjective Allergies: Coded Allergies: METOCLOPRAMIDE (Verified Allergy, Unknown, 03/10/18) extrapyramidal Sx Subjective afebri.e in >36hr remains intubated, Fio2 100% off pressors Objective Vital Signs Last 24 Hour Vital Signs Date Time Temp Pulse Resp B/P (MAP) Pulse Ox O2 Delivery O2 Flow Rate FiO2 09/21/19 11:00 97 24 107/36 (59) 91 09/21/19 10:35 95 16 100 09/21/19 10:00 93 21 104/41 (62) 93 09/21/19 09:30 93 21 102/50 (67) 93 09/21/19 09:00 94 19 109/57 (74) 92 09/21/19 08:30 95 29 115/59 (77) 91 09/21/19 08:00 96 09/21/19 08:00 97.6 96 17 97/34 (55) 79 09/21/19 08:00 Mechanical Ventilator 09/21/19 07:30 96 20 106/28 (54) 93 09/21/19 07:05 75 20 100 09/21/19 07:00 97 23 105/41 (62) 94 09/21/19 06:31 98 24 09/21/19 06:00 98 20 112/41 (64) 90 09/21/19 05:30 99 23 119/41 (67) 90 09/21/19 05:00 99 25 123/37 (65) 91 09/21/19 04:30 100 25 126/44 (71) 92 09/21/19 04:00 84 09/21/19 04:00 98.5 100 23 131/57 (81) 91 09/21/19 04:00 Mechanical Ventilator 09/21/19 03:30 101 17 112/54 (73) 93 09/21/19 03:20 105 21 100 09/21/19 03:00 113 25 131/56 (81) 91 09/21/19 02:30 114 26 136/41 (72) 93 09/21/19 02:00 102 25 140/46 (77) 93 09/21/19 01:30 101 27 131/45 (73) 94 09/21/19 01:00 101 22 125/42 (69) 94 09/21/19 00:30 101 23 106/48 (67) 93 09/21/19 00:00 Mechanical Ventilator 09/21/19 00:00 98.8 101 22 115/52 (73) 93 09/21/19 00:00 102 09/20/19 23:30 102 25 120/40 (66) 92 09/20/19 23:16 103 26 100 09/20/19 23:00 104 24 127/39 (68) 91 09/20/19 22:30 106 37 136/69 (91) 96 09/20/19 22:00 106 27 112/46 (68) 92 09/20/19 21:30 106 27 115/50 (71) 93 09/20/19 21:00 105 29 126/44 (71) 92 09/20/19 20:30 106 27 124/43 (70) 92 09/20/19 20:00 98.5 105 25 119/46 (70) 93 09/20/19 20:00 106 09/20/19 20:00 Mechanical Ventilator 09/20/19 19:30 106 30 141/61 (87) 96 09/20/19 19:28 105 27 100 09/20/19 19:00 105 28 131/41 (71) 95 09/20/19 17:45 104 29 134/60 (84) 94 09/20/19 17:30 105 29 136/50 (78) 96 09/20/19 17:15 105 29 120/54 (76) 94 09/20/19 17:00 105 23 136/50 (78) 92 09/20/19 16:45 115 28 124/51 (75) 94 09/20/19 16:30 115 28 123/55 (77) 95 09/20/19 16:15 115 27 129/39 (69) 94 09/20/19 16:00 105 23 120/54 (76) 92 09/20/19 16:00 Mechanical Ventilator 09/20/19 16:00 115 09/20/19 15:30 114 23 113/44 (67) 95 09/20/19 15:15 114 22 130/46 (74) 95 09/20/19 15:08 119/37 09/20/19 15:01 118/44 09/20/19 15:00 114 25 100 09/20/19 15:00 114 21 130/46 (74) 95 09/20/19 14:45 113 22 118/64 (82) 99 09/20/19 14:30 113 22 118/44 (68) 99 09/20/19 14:15 114 22 116/65 (82) 98 09/20/19 14:00 113 21 118/44 (68) 100 09/20/19 13:45 114 21 120/48 (72) 99 09/20/19 13:30 115 22 108/44 (65) 97 09/20/19 13:15 98 22 109/48 (68) 100 09/20/19 13:00 110 22 109/48 (68) 100 09/20/19 12:45 100 22 103/49 (67) 99 09/20/19 12:30 100 23 103/62 (76) 98 09/20/19 12:15 105 23 138/111 (120) 87 09/20/19 12:08 110/64 09/20/19 12:00 107 09/20/19 12:00 Mechanical Ventilator 09/20/19 12:00 98.4 105 22 103/55 (71) 98 09/20/19 11:45 106 30 129/58 (81) 92 09/20/19 11:30 107 30 147/44 (78) 92 09/20/19 11:27 108 24 100 09/20/19 11:22 100 09/20/19 11:15 107 30 133/34 (67) Height (Feet): 5 Height (Inches): 6.00 Weight (Pounds): 184 Objective not examined to limit COVID19 exposure Laboratory Tests Test 09/21/19 04:00 09/21/19 08:33 White Blood Count 13.9 K/UL (4.8-10.8) #H Red Blood Count 3.13 M/UL (4.20-5.40) L Hemoglobin 9.8 G/DL (12.0-16.0) L Hematocrit 27.8 % (37.0-47.0) L Mean Corpuscular Volume 89 FL (80-99) Mean Corpuscular Hemoglobin 31.3 PG (27.0-31.0) H Mean Corpuscular Hemoglobin Concent 35.3 G/DL (32.0-36.0) Red Cell Distribution Width 13.5 % (11.6-14.8) Platelet Count 47 K/UL (150-450) L Mean Platelet Volume 12.7 FL (6.5-10.1) H Neutrophils (%) (Auto) % (45.0-75.0) Lymphocytes (%) (Auto) % (20.0-45.0) Monocytes (%) (Auto) % (1.0-10.0) Eosinophils (%) (Auto) % (0.0-3.0) Basophils (%) (Auto) % (0.0-2.0) Differential Total Cells Counted 100 Neutrophils % (Manual) 81 % (45-75) H Lymphocytes % (Manual) 14 % (20-45) L Monocytes % (Manual) 3 % (1-10) Eosinophils % (Manual) 0 % (0-3) Basophils % (Manual) 0 % (0-2) Band Neutrophils 2 % (0-8) Platelet Estimate Decreased L Platelet Morphology Normal Hypochromasia 1+ Sodium Level 129 MMOL/L (136-145) L Potassium Level 3.9 MMOL/L (3.5-5.1) Chloride Level 96 MMOL/L (98-107) L Carbon Dioxide Level 13 MMOL/L (21-32) L Anion Gap 20 mmol/L (5-15) H Blood Urea Nitrogen 126 mg/dL (7-18) H Creatinine 6.9 MG/DL (0.55-1.30) H Estimat Glomerular Filtration Rate 6.9 mL/min (>60) Glucose Level 209 MG/DL (74-106) H Uric Acid 8.9 MG/DL (2.6-7.2) H Calcium Level 6.0 MG/DL (8.5-10.1) L Phosphorus Level 7.1 MG/DL (2.5-4.9) H Magnesium Level 2.1 MG/DL (1.8-2.4) Total Bilirubin 0.7 MG/DL (0.2-1.0) Aspartate Amino Transf (AST/SGOT) 106 U/L (15-37) H Alanine Aminotransferase (ALT/SGPT) 42 U/L (12-78) Alkaline Phosphatase 92 U/L (46-116) C-Reactive Protein, Quantitative 36.2 mg/dL (0.00-0.90) H Pro-B-Type Natriuretic Peptide 56792 pg/mL (0-125) H Total Protein 5.8 G/DL (6.4-8.2) L Albumin 1.3 G/DL (3.4-5.0) L Globulin 4.5 g/dL Albumin/Globulin Ratio 0.3 (1.0-2.7) L Random Vancomycin Level 12.3 ug/mL Arterial Blood pH 7.036 (7.350-7.450) Arterial Blood Partial Pressure CO2 35.7 mmHg (35.0-45.0) Arterial Blood Partial Pressure O2 48.8 mmHg (75.0-100.0) Arterial Blood HCO3 9.3 mmol/L (22.0-26.0) *L Arterial Blood Oxygen Saturation 72.9 % (95-100) *L Arterial Blood Base Excess -20.2 (-2-2) *L Gareth Test Positive Current Medications Medications (Trade) Dose Ordered Sig/Nancy Route PRN Reason Start Time Stop Time Status Last Admin Dose Admin Acetaminophen (Tylenol) 650 mg Q4H PRN GT fever 09/20/19 16:15 10/17/19 09:29 Albuterol/ Ipratropium (Albuterol/ Ipratropium) 3 ml Q4H PRN HHN Shortness of Breath 09/17/19 09:30 09/22/19 09:29 Allopurinol (allopurinoL) 300 mg DAILY GT 09/20/19 09:00 10/18/19 08:59 09/21/19 08:37 Chlorhexidine Gluconate (Jossy-Hex 2%) 1 applic DAILY@2000 TOPIC 09/18/19 20:00 12/17/19 19:59 09/20/19 20:00 Dextrose (Dextrose 50%) 25 ml Q30M PRN IV Hypoglycemia 09/17/19 13:15 12/16/19 13:14 Dextrose (Dextrose 50%) 50 ml Q30M PRN IV Hypoglycemia 09/17/19 13:15 12/16/19 13:14 Dextrose/Sodium Chloride 1,000 ml @ 50 mls/hr Q20H IV 09/21/19 08:01 10/20/19 08:00 09/21/19 08:37 Heparin Sodium (Porcine) (Heparin 5000 units/ml) 5,000 units EVERY 12 HOURS SUBQ 09/17/19 21:00 11/01/19 20:59 09/18/19 20:38 Heparin Sodium/ Sodium Chloride (Heparin 1000 units/500ml Premix) 1,000 unit ONCE PRN IV PICC LINE PLACEMENT 09/21/19 11:15 11/05/19 11:14 Hydralazine HCl (Apresoline) 10 mg Q4H PRN IV For High Blood Pressure 09/17/19 16:15 12/16/19 16:14 Insulin Aspart (NovoLOG) Q6HR SUBQ 09/18/19 18:00 12/16/19 16:29 09/21/19 06:19 Levetiracetam (Keppra) 1,000 mg Q12HR GT 09/17/19 21:00 10/17/19 20:59 09/21/19 08:37 Lidocaine HCl (Xylocaine 1% 30ml) 30 ml ONCE PRN INJ PICC LINE PLACEMENT 09/21/19 11:15 09/23/19 11:14 Lorazepam (Ativan 2mg/ml 1ml) 2 mg Q2H PRN IV For Anxiety 09/17/19 09:30 09/24/19 09:29 09/20/19 11:51 Meropenem 500 mg/ Sodium Chloride 55 ml @ 110 mls/hr Q24H IVPB 09/17/19 16:00 09/22/19 15:59 09/20/19 15:08 Midodrine (Pro-Amatine) 10 mg Q8HR GT 09/17/19 14:30 12/16/19 14:29 09/21/19 04:55 Morphine Sulfate (Morphine Sulfate) 4 mg Q4H PRN IVP Severe Pain (Pain Scale 7-10) 09/17/19 09:30 09/24/19 09:29 Norepinephrine Bitartrate 4 mg/ Dextrose 250 ml @ 0 mls/hr Q24H IV 09/17/19 15:30 10/17/19 15:23 09/20/19 15:01 Ondansetron HCl (Zofran) 4 mg Q6H PRN IVP Nausea & Vomiting 09/17/19 09:30 10/17/19 09:29 Pantoprazole (Protonix) 40 mg EVERY 12 HOURS IVP 09/17/19 10:00 10/17/19 09:59 09/21/19 08:37 Polyethylene Glycol (Miralax) 17 gm DAILYPRN PRN GT Constipation 09/20/19 16:15 10/17/19 09:29 Sevelamer Carbonate (Renvela) 1,600 mg Q8HR GT 09/20/19 22:00 12/18/19 13:59 09/21/19 04:55 Sodium Bicarbonate (Sodium Bicarbonate) 50 ml ONCE IV 09/21/19 10:15 09/21/19 11:15 09/21/19 10:21 Sodium Citrate (Bicitra) 30 ml EVERY 6 HOURS GT 09/19/19 18:00 10/19/19 17:59 09/21/19 04:56 Vancomycin HCl (Vanco rx to dose) 1 ea DAILY PRN MISC pharmacy to dose 09/17/19 10:00 10/17/19 09:59 Vancomycin HCl 1 gm/Dextrose 275 ml @ 183.708 mls/hr ONCE IVPB 09/21/19 08:00 09/26/19 07:59 09/21/19 08:37 Nkechi Stevenson M.D. September 21, 2019 11:32
--- NOTE | 2019-09-21 11:37 | NUR ---
CASE MANAGEMENT: REVIEW SI: SEIZURE . COVID-19 T 97.6 HR 114 RR 27 BP 97/34 SAT 93% MECH VENT FIO2 100 WBC 13.9 H/H 9.8/27.8 NA 129 BUN 126 CR 6.9 BNP 31276 IS: LEVOPHED GTT D5 NS IVF @ 50ML/HR PROTONIX IV Q12HR MEROPENEM IV Q24HR VANCOMYCIN IV X1 HEPARIN SUBQ Q12HR NOVOLOG SUBQ Q6HR GT FEEDING ICU STATUS DCP: PATIENT IS FROM [facility]
[2019-09-21] MEDS ORDERED: NS IVPB SCH (12:30)
[2019-09-21] MEDS ORDERED: METHYLPREDNISOLONE SOD SUCC IVPB SCH (12:30)
--- NOTE | 2019-09-21 13:00 | NUR ---
NURSE NOTES: 1250 - bradycardia to 50's then asystole. cpr started 1251 - code team called 1252 epi given no pulse. 1255 2nd epi given no pulse 1257 1 amp of sodium bicarb given 1258 3rd epi given no pulse 1259 ROSC. pulse present.
--- NOTE | 2019-09-21 13:00 | NUR ---
RESPIRATORY NOTES Code blue called at 1250 Compressions started on PT. PT was not bagged - PT remained on the ventilator throughout the entire time.
--- NOTE | 2019-09-21 13:24 | NUR ---
NURSE NOTES: patient had episode of bradycardia and went to asystole. 1324- 1st epi given 1329- patient has ROSC.
--- NOTE | 2019-09-21 13:44 | NUR ---
NURSE NOTES: Bernardino gloria has been notified [phone] regarding code blue/cpr x2 and that patient has ROSC.
--- NOTE | 2019-09-21 13:48 | NUR ---
NURSE NOTES: 1348 patient went to asystole. 1st epi given 1351 no pulse. asystole 2nd epi given 1354 no pulse asystole 3rd epi given 1357 no pulse asystole 4th epi given 1400 no pulse asystole 5th epi given 1403 no pulse asystole 6th epi given. 1405 Dr. Logan pronounced patient.
[2019-09-21] MEDS ORDERED: Sodium Bicarbonate 50ml Carp ONE (14:04)
--- NOTE | 2019-09-21 14:05 | NUR ---
NURSE NOTES: Dr. Logan pronounced patient. notified to Dr. Lazcano and Radha Ortiz notified. family information also provided Bernardino Kohli [phone] niece and conservator.
--- NOTE | 2019-09-21 14:06 | NUR ---
NURSE NOTES: patient had total of 3 episodes of code blue. see code blue sheet.
--- NOTE | 2019-09-21 14:16 | NUR ---
NURSE NOTES: [facility] called spoke with Katelyn Referral ID [id number].
--- NOTE | 2019-09-21 14:25 | NUR ---
NURSE NOTES: notified rod cup filler's case, spoke with OLAMIDE, not a rod cup filler's case, no referral number.
--- NOTE | 2019-09-21 14:52 | NUR ---
NURSE NOTES: [facility] spoke with Magdiel - [phone]
--- NOTE | 2019-09-21 15:08 | Emergency Room Report ---
History of Present Illness General Chief Complaint: Seizure Source: Patient Present Illness HPI CODE BLUE was called overhead in the ICU was working in the emergency department. I responded to the CODE BLUE. This patient is ventilated for respiratory failure of COVID-19 infection. The nurses caring for the patient stated the patient suddenly went into cardiac arrest. CPR was in progress on my arrival. Allergies: Coded Allergies: METOCLOPRAMIDE (Verified Allergy, Unknown, 03/10/18) extrapyramidal Sx COVID-19 Screening Contact w/high risk pt: Yes Recent Travel to affected area: No Experienced COVID-19 symptoms?: Yes COVID-19 symptoms experienced: Shortness of Breath, Flu-Like Symptoms COVID-19 Testing performed WIRE STRAIGHTENING MACHINE OPERATOR: No COVID-19 Screening: Positive COVID-19 Patient History Past Medical History: see triage record Nursing Documentation-PMH Past Medical History: No History, Except For Hx Cardiac Problems: No - Sepsis, DVT, LT AKA Hx Hypertension: Yes Hx Pacemaker: No Hx Asthma: No Hx COPD: Yes - PNA Hx Diabetes: Yes - DM2 Hx Cancer: No Hx Gastrointestinal Problems: Yes - G-tube Hx Dialysis: No 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 Multiple code blues were called on this patient. I responded to all of them. The patient would get ROSC after being coded but then would code again shortly thereafter. On the third CODE BLUE and after 5 mg/rounds of epinephrine, the patient remained in asystole. I felt that further resuscitation was futile. This association was suspended. Time of 14:05. This patient is critically ill. This patient required complex medical decision- making, aggressive intervention and monitoring. Critical care time: 40 minutes. Last Vital Signs Date Time Temp Pulse Resp B/P (MAP) Pulse Ox O2 Delivery O2 Flow Rate FiO2 09/21/19 13:15 165 19 102/74 (83) 09/21/19 12:00 Mechanical Ventilator 09/21/19 11:18 100 09/21/19 11:00 91 09/21/19 08:00 97.6 09/17/19 10:20 15.0 Disposition: Condition: Referrals: Estevan Orozco MD (PCP) She Logan DO September 21, 2019 15:08
--- NOTE | 2019-09-21 15:17 | NUR ---
NURSE NOTES: Bernardino Kohli [phone] to see the patient. Jannet JENSEN updated.
[2019-09-21] MEDS: Meropenem 500 MG in NS 55 ML IVPB SCH (15:49)
--- NOTE | 2019-09-21 17:22 | NUR ---
NURSE NOTES: Bernardino Ashford [phone] called to let nursing staff know that she was not able to make it on time.
--- NOTE | 2019-09-21 18:15 | NUR ---
NURSE NOTES: Jannet JENSEN spoke with the niece/conservator Bernardinohira Ashford. Meat Market Manager Nuzhat also notified.
--- NOTE | 2019-09-21 19:07 | Internal Med Progress Note ---
Subjective Date of Service: September 21, 2019 Physician Name Terence Vigil Attending Physician Saira Lazcano MD Current Medications Medications (Trade) Dose Ordered Sig/Nancy Route PRN Reason Start Time Stop Time Status Last Admin Dose Admin Acetaminophen (Tylenol) 650 mg Q4H PRN GT fever 09/20/19 16:15 10/17/19 09:29 Albuterol/ Ipratropium (Albuterol/ Ipratropium) 3 ml Q4H PRN HHN Shortness of Breath 09/17/19 09:30 09/22/19 09:29 Allopurinol (allopurinoL) 300 mg DAILY GT 09/20/19 09:00 10/18/19 08:59 09/21/19 08:37 Chlorhexidine Gluconate (Jossy-Hex 2%) 1 applic DAILY@2000 TOPIC 09/18/19 20:00 12/17/19 19:59 09/20/19 20:00 Dextrose (Dextrose 50%) 25 ml Q30M PRN IV Hypoglycemia 09/17/19 13:15 12/16/19 13:14 Dextrose (Dextrose 50%) 50 ml Q30M PRN IV Hypoglycemia 09/17/19 13:15 12/16/19 13:14 Dextrose/Sodium Chloride 1,000 ml @ 50 mls/hr Q20H IV 09/21/19 08:01 10/20/19 08:00 09/21/19 08:37 Heparin Sodium (Porcine) (Heparin 5000 units/ml) 5,000 units EVERY 12 HOURS SUBQ 09/17/19 21:00 11/01/19 20:59 09/18/19 20:38 Heparin Sodium/ Sodium Chloride (Heparin 1000 units/500ml Premix) 1,000 unit ONCE PRN IV PICC LINE PLACEMENT 09/21/19 11:15 11/05/19 11:14 Hydralazine HCl (Apresoline) 10 mg Q4H PRN IV For High Blood Pressure 09/17/19 16:15 12/16/19 16:14 Insulin Aspart (NovoLOG) Q6HR SUBQ 09/18/19 18:00 12/16/19 16:29 09/21/19 06:19 Levetiracetam (Keppra) 1,000 mg Q12HR GT 09/17/19 21:00 6/13/20 20:59 09/21/19 08:37 Lidocaine HCl (Xylocaine 1% 30ml) 30 ml ONCE PRN INJ PICC LINE PLACEMENT 09/21/19 11:15 09/23/19 11:14 Lorazepam (Ativan 2mg/ml 1ml) 2 mg Q2H PRN IV For Anxiety 09/17/19 09:30 09/24/19 09:29 09/20/19 11:51 Meropenem 500 mg/ Sodium Chloride 55 ml @ 110 mls/hr Q24H IVPB 09/17/19 16:00 09/24/19 23:59 09/20/19 15:08 Methylprednisolone Sodium Succinate 40 mg/Sodium Chloride 111 ml @ 111 mls/hr EVERY 12 HOURS IVPB 09/21/19 12:30 09/25/19 12:29 Midodrine (Pro-Amatine) 10 mg Q8HR GT 09/17/19 14:30 12/16/19 14:29 09/21/19 04:55 Morphine Sulfate (Morphine Sulfate) 4 mg Q4H PRN IVP Severe Pain (Pain Scale 7-10) 09/17/19 09:30 09/24/19 09:29 Norepinephrine Bitartrate 4 mg/ Dextrose 250 ml @ 0 mls/hr Q24H IV 09/17/19 15:30 10/17/19 15:23 09/20/19 15:01 Ondansetron HCl (Zofran) 4 mg Q6H PRN IVP Nausea & Vomiting 09/17/19 09:30 10/17/19 09:29 Pantoprazole (Protonix) 40 mg EVERY 12 HOURS IVP 09/17/19 10:00 10/17/19 09:59 09/21/19 08:37 Polyethylene Glycol (Miralax) 17 gm DAILYPRN PRN GT Constipation 09/20/19 16:15 10/17/19 09:29 Sevelamer Carbonate (Renvela) 1,600 mg Q8HR GT 09/20/19 22:00 12/18/19 13:59 09/21/19 04:55 Sodium Citrate (Bicitra) 30 ml EVERY 6 HOURS GT 09/19/19 18:00 10/19/19 17:59 09/21/19 04:56 Vancomycin HCl (Vanco rx to dose) 1 ea DAILY [facility]N [facility] to dose 09/17/19 10:00 10/17/19 09:59 Vancomycin HCl 1 gm/Dextrose 275 ml @ 183.708 mls/hr ONCE IVPB 09/21/19 08:00 09/26/19 07:59 09/21/19 08:37 Allergies: Coded Allergies: METOCLOPRAMIDE (Verified Allergy, Unknown, 03/10/18) extrapyramidal Sx ROS Limited/Unobtainable: Yes Subjective 89YO F admitted with shortness of breath. Now respiratory failure and pneumonia. Cover for Int med-DR Woodson. ICU. Intubated and sedated Objective Last Vital Signs Date Time Temp Pulse Resp B/P (MAP) Pulse Ox O2 Delivery O2 Flow Rate FiO2 09/21/19 13:15 165 19 102/74 (83) 09/21/19 12:00 Mechanical Ventilator 09/21/19 11:18 100 09/21/19 11:00 91 09/21/19 08:00 97.6 09/17/19 10:20 15.0 Laboratory Tests Test 09/21/19 04:00 09/21/19 08:33 White Blood Count 13.9 K/UL (4.8-10.8) #H Red Blood Count 3.13 M/UL (4.20-5.40) L Hemoglobin 9.8 G/DL (12.0-16.0) L Hematocrit 27.8 % (37.0-47.0) L Mean Corpuscular Volume 89 FL (80-99) Mean Corpuscular Hemoglobin 31.3 PG (27.0-31.0) H Mean Corpuscular Hemoglobin Concent 35.3 G/DL (32.0-36.0) Red Cell Distribution Width 13.5 % (11.6-14.8) Platelet Count 47 K/UL (150-450) L Mean Platelet Volume 12.7 FL (6.5-10.1) H Neutrophils (%) (Auto) % (45.0-75.0) Lymphocytes (%) (Auto) % (20.0-45.0) Monocytes (%) (Auto) % (1.0-10.0) Eosinophils (%) (Auto) % (0.0-3.0) Basophils (%) (Auto) % (0.0-2.0) Differential Total Cells Counted 100 Neutrophils % (Manual) 81 % (45-75) H Lymphocytes % (Manual) 14 % (20-45) L Monocytes % (Manual) 3 % (1-10) Eosinophils % (Manual) 0 % (0-3) Basophils % (Manual) 0 % (0-2) Band Neutrophils 2 % (0-8) Platelet Estimate Decreased L Platelet Morphology Normal Hypochromasia 1+ Sodium Level 129 MMOL/L (136-145) L Potassium Level 3.9 MMOL/L (3.5-5.1) Chloride Level 96 MMOL/L (98-107) L Carbon Dioxide Level 13 MMOL/L (21-32) L Anion Gap 20 mmol/L (5-15) H Blood Urea Nitrogen 126 mg/dL (7-18) H Creatinine 6.9 MG/DL (0.55-1.30) H Estimat Glomerular Filtration Rate 6.9 mL/min (>60) Glucose Level 209 MG/DL (74-106) H Uric Acid 8.9 MG/DL (2.6-7.2) H Calcium Level 6.0 MG/DL (8.5-10.1) L Phosphorus Level 7.1 MG/DL (2.5-4.9) H Magnesium Level 2.1 MG/DL (1.8-2.4) Total Bilirubin 0.7 MG/DL (0.2-1.0) Aspartate Amino Transf (AST/SGOT) 106 U/L (15-37) H Alanine Aminotransferase (ALT/SGPT) 42 U/L (12-78) Alkaline Phosphatase 92 U/L (46-116) C-Reactive Protein, Quantitative 36.2 mg/dL (0.00-0.90) H Pro-B-Type Natriuretic Peptide 93892 pg/mL (0-125) H Total Protein 5.8 G/DL (6.4-8.2) L Albumin 1.3 G/DL (3.4-5.0) L Globulin 4.5 g/dL Albumin/Globulin Ratio 0.3 (1.0-2.7) L Random Vancomycin Level 12.3 ug/mL Arterial Blood pH 7.036 (7.350-7.450) Arterial Blood Partial Pressure CO2 35.7 mmHg (35.0-45.0) Arterial Blood Partial Pressure O2 48.8 mmHg (75.0-100.0) Arterial Blood HCO3 9.3 mmol/L (22.0-26.0) *L Arterial Blood Oxygen Saturation 72.9 % (95-100) *L Arterial Blood Base Excess -20.2 (-2-2) *L Gareth Test Positive Intake and Output 09/20/19 09/21/19 19:00 07:00 Intake Total 845.0 ml 1100 ml Output Total 561 ml 215 ml Balance 284.0 ml 885 ml Intake Free Water 200 ml IV Total 445.0 ml 1100 ml Tube Feeding 80 ml 0 ml Other 120 ml Output Urine Total 560 ml 215 ml Stool Total 1 ml # Bowel Movements 1 Objective PHYSICAL EXAMINATION: GENERAL: Patient is well-nourished female, who is intubated and sedated. HEENT: Eyes, pupils are equal and responsive to light and accommodation. Extraocular movements are intact. NECK: Supple without lymphadenopathy. CHEST: Mech Vent; Coarse breath sounds bilaterally without wheezes or rales. CARDIOVASCULAR: Regular rhythm and rate. S1, S2 normal without murmurs, rubs, or gallops. ABDOMEN: Soft, nontender, nondistended. Positive bowel sounds. No evidence of hepatosplenomegaly. Currently, no rebound or guarding noted. RECTAL/GENITAL: Not performed. NEUROLOGICAL: Unable to assess. Assessment/Plan Assessment/Plan Assessment/Plan Assessment/Plan Septic Shock Bilateral Pneumonia- COVID-19 infection Acute Hypoxemia respiratory failure s/p intubation 09/16- Acute Enterococcus UTI leukocytosis> leukopenia Thrombocytopenia. Seizure (witnessed by EMS) Anemia OREN on CKD Elevated LFTs Hx of Proteus UTI 04/2019 CVA w/ residual R side weakness pancreatitis 04/2019 sp L AKA Dm2 DVT COPD Dementia Dysphagia s/p GT vegetative state non verbal seizure disorder [place] resident ([facility]) Plan: -Continue empiric IV Vancomycin and Meropenem IV -Monitor laboratories and cultures -COVID19 isolation precaution -ETT/GT/ICU care -aspiration precautions -Trend CXR and inflammatory markers -Full code -DVT prophylaxis: Hold Heparin subcu due to Thrombocytopenia, SCD Only. -Right transjugular triple-lumen central venous catheter. Levophed drip: 2 mcg Terence Vigil MD September 21, 2019 19:07
--- NOTE | 2019-09-21 20:30 | NUR ---
NURSE NOTES: Niece/conservator Bernardino Ashford see the patient. Pt transferred [facility].
--- NOTE | 2019-09-22 10:31 | Discharge Summary ---
Discharge Summary Discharge Summary _ SUMMARY DATE OF ADMISSION: 09/17/2019 DATE OF EXPIRATION:09/21/2019 REASON FOR ADMISSION: 84 years old female, resident of long-term facility, with past medical history of CVA with right-sided hemiparesis, seizure disorder, diabetes mellitus , dysphagia, feeding by G-tube, left AKA, was brought by commuter pilot after witnessed seizure episode. She received Versed by commuter pilot in route to the hospital. Seizure resolved. Patient was on Keppra at the facility. On evaluation patient was afebrile 102.8, tachypneic and tachycardic. Patient required oral intubation in emergency department. Laboratory work-up revealed leukocytosis and anemia. Chemistry showed lactic acid 2.9. Hypernatremia. Renal failure with BUN 148, creatinine 6.0. Glucose 358. AST 278 ALT 106. Troponin elevated 0.46. EKG revealed sinus rhythm no acute ischemic changes. Total CK 1331. Albumin 2.8. Urinalysis revealed no pyuria , but many bacteria, +4 protein. Chest x-ray demonstrated patchy bilateral infiltrates. In the emergency room patient pancultured, received antipyretic and started on broad-spectrum antibiotics. Patient was swabbed for COVID-19. Patient admitted to ICU for further management CONSULTANTS: appliance painter and refinisher Dr. Grimes pulmonary Dr. Lazcano ID specialist Dr. Stevenson pouncing machine operator Dr. Orozco [facility] COURSE: Patient admitted to ICU to isolation room. Ventilator support and pulmonary toilet provided. Patient was followed-up with chest x-ray and ABG. Patient started on empiric antibiotics. Patient required pressors for hemodynamic support. Hemodynamic status was closely monitored with goal to keep mean arterial blood pressure above 65. Patient was off and on on Levophed. Midodrine provided for blood pressure support. Antibiotic optimized as per ID specialist recommendation. SARS-CoV 2 by PCR from 09/16 came back positive. Patient remained in isolation. Blood cultures were negative. Urine culture revealed enterococci. Stool for C. difficile was negative. Follow-up chest x-ray revealed persistent consolidation and ground-glass opacity in bilateral lungs. ABG showed worsening metabolic acidosis. Patient was on Bicitra. Creatinine trending up. [facility] Doc[facility] discussed with patient's DPOA need for hemodialysis . She agreed to proceed . Hemodialysis catheter placement was ordered for September 20. Seizure precaution maintained. Antiepileptic continued. No further evidence of seizures. LFT trending down, likely due to shock liver. DVT and GI prophylaxis provided. Blood sugar was managed with sliding scale of insulin. Repeated troponin trending down , still elevated 0.366. Echocardiogram was attempted but was a difficult study due to poor acoustical windows. Study precluded accurate assessment of regional wall motion. Candlemaker recommended to repeat Echo 1 when out of isolation. Minimally elevated troponin was likely due to renal failure. Counts were closely monitored. Patient undergone transfusion of 2 units of packed red blood cells for hemoglobin 6.2. Platelet counts remained low and worsen, from initial 94 down to 47. Anemia work-up revealed low iron, ferritin above 2000. Overall prognosis was extremely poor CRP went up to 52.7. Patient remain full code. CODE BLUE was called on 09/20. ACLS protocol initiated. Patient had total of 3 CODE BLUE. During the first 2 codes she was able to be resuscitated. However during the third code, she remained in asystole. All resuscitative efforts appeared to be futile. Patient was pronounced on 14:05 on 09/20. Cause of : cardiopulmonary arrest likely secondary to COVID-19 infection FINAL DIAGNOSES: Status post cardiopulmonary arrest x3. 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
== END 2019-09-21 14:05 | disposition expired | DRG 870 ==
LOC: EDBD 05:02 → EDUNIT# 05:02 → EMR 05:11 → ICU 05:32 → EDBEDREQ 06:53 → EDBEDREQSVC 08:04 → EDBEDREQ 08:12
PROC: 0BH17EZ Insertion of Endotracheal Airway into Trachea, Via Natural or Artificial Opening (ICD-10-PCS; 2019-09-17)
PROC: 5A1955Z Respiratory Ventilation, Greater than 96 Consecutive Hours (ICD-10-PCS; 2019-09-17)
PROC: 30233N1 Transfusion of Nonautologous Red Blood Cells into Peripheral Vein, Percutaneous Approach (ICD-10-PCS; principal; 2019-09-18)
PROC: 05HM33Z Insertion of Infusion Device into Right Internal Jugular Vein, Percutaneous Approach (ICD-10-PCS; 2019-09-18)
PROC: 5A12012 Performance of Cardiac Output, Single, Manual (ICD-10-PCS; 2019-09-21)
DX: A41.89 Other specified sepsis (principal); U07.1 COVID-19; J96.01 Acute respiratory failure with hypoxia; R65.21 Severe sepsis with septic shock; J12.89 Other viral pneumonia; R53.2 Functional quadriplegia; I21.A1 Myocardial infarction type 2; K72.00 Acute and subacute hepatic failure without coma; N17.9 Acute kidney failure, unspecified; N39.0 Urinary tract infection, site not specified; Z43.1 Encounter for attention to gastrostomy; I69.351 Hemiplegia and hemiparesis following cerebral infarction affecting right dominant side; R40.3 Persistent vegetative state; E87.0 Hyperosmolality and hypernatremia; N18.9 Chronic kidney disease, unspecified; D63.1 Anemia in chronic kidney disease; E11.22 Type 2 diabetes mellitus with diabetic chronic kidney disease; E11.43 Type 2 diabetes mellitus with diabetic autonomic (poly)neuropathy; K31.84 Gastroparesis; Z79.4 Long term (current) use of insulin; Z89.612 Acquired absence of left leg above knee; B95.2 Enterococcus as the cause of diseases classified elsewhere; D69.6 Thrombocytopenia, unspecified; I12.9 Hypertensive chronic kidney disease with stage 1 through stage 4 chronic kidney disease, or unspecified chronic kidney disease; G40.409 Other generalized epilepsy and epileptic syndromes, not intractable, without status epilepticus; J44.9 Chronic obstructive pulmonary disease, unspecified; Z88.8 Allergy status to other drugs, medicaments and biological substances; R13.10 Dysphagia, unspecified; Z86.718 Personal history of other venous thrombosis and embolism
CPT/HCPCS: 31500; 36415; 36569; 36600; 71045; 80053; 80061; 80076; 80202; 81001; 81003; 82378; 82533; 82550; 82607; 82728; 82746; 82803; 82962; 82977; 83036; 83540; 83550; 83605; 83615; 83735; 83880; 84100; 84133; 84300; 84443; 84478; 84484; 84550; 85007; 85025; 85044; 85060; 85379; 85384; 85610; 85651; 85730; 86140; 86850; 86900; 86901; 86904; 86920; 87040; 87081; 87086; 87181; 87324; 87635; 89050; 93005; 93306; 94002; 94003; 94664; 96361; 96365; 96366; 96368; 96375; 99291; J0171; J1815; J7030